=== PATIENT | male | born 1960 | race Caucasian/White ===

== ENCOUNTER 2016-07-20 09:24 | Inpatient (IN) | payer BC ==
[2016-07-20] VITALS (12 sets, daily range): BP systolic 126–187; BP diastolic 85–106
[~2016-07-20] VITALS: Ht 170.2 cm; Wt 81.6 kg
--- NOTE | 2016-07-20 09:30 | PHYS DOC ---
Adult General HPI HPI Patient is a 56 year old male who presents with chest pain. He woke up this morning in normal health and then while at rest developed a 9 at 10 substernal chest pressure that did not radiate he did become nauseated and short of breath and became sweaty. He called 911 who arrived did an EKG gave him nitroglycerin and 324 mg of aspirin and brought him in as a code STEMI. Patient states his pain improved from a 9 to a 4 nitroglycerin. He does have a history of A. fib minutes never had any kind of cardiac workup and does take Pradoxa daily. He has not taken his a.m. dose. Does have a history of tobacco abuse and is smoked for many years and has a family history of coronary disease. Review of Systems Review of Systems Constitutional: Denies fever or chills [] Eyes: Denies change in visual acuity, redness, or eye pain [] HENT: Denies nasal congestion or sore throat [] Respiratory: Denies cough or shortness of breath [] Cardiovascular: No additional information not addressed in HPI [] GI: Denies abdominal pain, nausea, vomiting, bloody stools or diarrhea [] : Denies dysuria or hematuria [] Musculoskeletal: Denies back pain or joint pain [] Integument: Denies rash or skin lesions [] Neurologic: Denies headache, focal weakness or sensory changes [] Endocrine: Denies polyuria or polydipsia [] Current Medications Current Medications Current Medications Medications (Trade) Dose Ordered Sig/Treva Start Time Stop Time Status Last Admin Dose Admin Morphine Sulfate 2 mg PRN Q15MIN PRN 07/20/16 09:45 07/21/16 09:44 Nitroglycerin 0.4 mg 0.4 mg PRN Q5MIN PRN 07/20/16 09:45 07/21/16 09:44 Nitroglycerin/ Dextrose (Nitroglycerin Drip) 250 ml @ 3 mls/hr 1X ONCE 07/20/16 10:30 07/23/16 21:49 Allergies Allergies Allergies Coded Allergies Type Severity Reaction Last Updated Verified No Known Drug Allergies 07/20/16 No Physical Exam Physical Exam Constitutional: Well developed, well nourished, no acute distress, non-toxic appearance. [] HENT: Normocephalic, atraumatic, bilateral external ears normal, oropharynx moist, no oral exudates, nose normal. [] Eyes: PERRLA, EOMI, conjunctiva normal, no discharge. [] Neck: Normal range of motion, no tenderness, supple, no stridor. [] Cardiovascular:Heart rate regular rhythm, no murmur [] Lungs & Thorax: Bilateral breath sounds clear to auscultation [] Abdomen: Bowel sounds normal, soft, no tenderness, no masses, no pulsatile masses. [] Skin: Warm, dry, no erythema, no rash. [] Back: No tenderness, no CVA tenderness. [] Extremities: No tenderness, no cyanosis, no clubbing, ROM intact, no edema. [] Neurologic: Alert and oriented X 3, normal motor function, normal sensory function, no focal deficits noted. [] Psychologic: Affect normal, judgement normal, mood normal. [] Current Patient Data Lab Values Laboratory Tests Test 07/20/16 09:29 White Blood Count 6.0x10^3/uL (4.0-11.0) Red Blood Count 5.56x10^6/uL (4.30-5.70) Hemoglobin 17.8g/dL (13.0-17.5) H Hematocrit 52.5% (39.0-53.0) Mean Corpuscular Volume 94fL (79-100) Mean Corpuscular Hemoglobin 32pg (25-35) Mean Corpuscular Hemoglobin Concent 34g/dL (31-37) Red Cell Distribution Width 13.7% (11.5-14.5) Platelet Count 170x10^3/uL (140-400) Neutrophils (%) (Auto) 55% (31-73) Lymphocytes (%) (Auto) 34% (24-48) Monocytes (%) (Auto) 6% (0-9) Eosinophils (%) (Auto) 5% (0-3) H Basophils (%) (Auto) 1% (0-3) Neutrophils # (Auto) 3.3x10^3uL (1.8-7.7) Lymphocytes # (Auto) 2.0x10^3/uL (1.0-4.8) Monocytes # (Auto) 0.4x10^3/uL (0.0-1.1) Eosinophils # (Auto) 0.3x10^3/uL (0.0-0.7) Basophils # (Auto) 0.0x10^3/uL (0.0-0.2) Prothrombin Time 13.5SEC (11.7-14.0) Prothrombin Time INR 1.1 (0.8-1.1) Sodium Level 140mmol/L (136-145) Potassium Level 4.5mmol/L (3.5-5.1) Chloride Level 104mmol/L (98-107) Carbon Dioxide Level 27mmol/L (21-32) Anion Gap 9 (6-14) Blood Urea Nitrogen 14mg/dL (8-26) Creatinine 1.1mg/dL (0.7-1.3) Estimated GFR (Cockcroft-Gault) 69.0 Glucose Level 150mg/dL (70-99) H Calcium Level 9.6mg/dL (8.5-10.1) Magnesium Level 2.2mg/dL (1.8-2.4) Total Bilirubin 0.9mg/dL (0.2-1.0) Direct Bilirubin 0.1mg/dL (0.0-0.2) Aspartate Amino Transferase (AST) 13U/L (15-37) L Alanine Aminotransferase (ALT) 22U/L (16-63) Alkaline Phosphatase 59U/L (46-116) Creatine Kinase 77U/L (39-308) Creatine Kinase MB (Mass) 0.6ng/mL (0.0-3.6) Creatine Kinase MB Relative Index 0.8% (0-4) Troponin I Quantitative < 0.017ng/mL (0.000-0.055) CE-Xfj-R-Type Natriuretic Peptide 640pg/mL (0-124) H Total Protein 7.8g/dL (6.4-8.2) Albumin 4.3g/dL (3.4-5.0) Lipase 166U/L (73-393) Thyroid Stimulating Hormone (TSH) 1.328uIU/mL (0.358-3.74) Laboratory Tests 07/20/16 09:29 Laboratory Tests 07/20/16 09:29 EKG EKG EKG shows irregular rhythm with a rate approximately 87 bpm , ST elevations noted in V1, V2, V3, V4, some mild depression in lead 1, no other reciprocal changes or T-wave inversions appreciated, QTC 507 ms, no old EKGs for comparison noted, As interpreted by me. Radiology/Procedures Radiology/Procedures [facility] [address] [place] [address] IMAGING REPORT Signed PATIENT: CHARLY NAJERA ACCOUNT: [id number] : 1960 LOCATION: ER AGE: 56 SEX: M EXAM STATUS: REG ER ORD. PHYSICIAN: KARINA TIJERINA MD REASON: chest pain PROCEDURE: PORTABLE CHEST 1V PROCEDURE AP chest radiograph. HISTORY New onset of chest pain this morning. COMPARISON None. FINDINGS Cardiac silhouette appears within normal limits for size. No focal infiltrate, pleural effusion, or pneumothorax is seen. IMPRESSION No acute cardiopulmonary process. Electronically signed by: Gonsalo Atkins MD (Jul 20, 2016 10:06:04) DICTATED and SIGNED BY: GONSALO ATKINS MD DATE: 07/20/16 1005 CC: KARINA TIJERINA MD; LYN BOURGEOIS Jr, MD ~ Impressions: Chest pain Tobacco abuse Course & Med Decision Making Course & Med Decision Making Pertinent Labs and Imaging studies reviewed. (See chart for details) Patient was activated as a code STEMI and seen by cardiology after was paged out. Dr. Jiang wanted to obtain an echocardiogram and labs before deciding to take the patient to the [facility]. Patient blood pressures in the 180s systolic and he is being started on a nitroglycerin drip to control his blood pressure and his symptoms at this time. Also start a heparin drip. He is going to be admitted to the hospitalist and is in stable condition at this time and agreeable to the plan. Dragon Disclaimer Dragon Disclaimer This electronic medical record was generated, in whole or in part, using a voice recognition dictation system. Departure Departure Impression: Primary Impression: Chest pain Disposition: ADMITTED INPATIENT Admitting Physician: Rajwinder Louis Condition: STABLE Problem Qualifiers Primary Impression: Chest pain Chest pain type: unspecified Qualified Code: R07.9 - Chest pain, unspecified KARINA TIJERINA MD Jul 20, 2016 09:30
[2016-07-20] MEDS ORDERED: NITROGLYCERIN SUBLINGUAL 0.4 MG BOTTLE OF 25. SL PRN ×2 (09:45→14:45)
[2016-07-20] MEDS ORDERED: MORPHINE SULFATE 2 MG/ML DISP.SYRIN. IV/SQ PRN (09:45)
--- NOTE | 2016-07-20 10:07 | RAD ---
PROCEDURE AP chest radiograph. HISTORY New onset of chest pain this morning. COMPARISON None. FINDINGS Cardiac silhouette appears within normal limits for size. No focal infiltrate, pleural effusion, or pneumothorax is seen. IMPRESSION No acute cardiopulmonary process. Electronically signed by: Gonsalo Baez MD (Jul 20, 2016 10:06:04)
[2016-07-20 10:10] LABS: ALBUMIN 4.3 g/dL (3.4-5.0); CALCIUM 9.6 mg/dL (8.5-10.1); CREATININE 1.1 mg/dL (0.7-1.3); POTASSIUM 4.5 mmol/L (3.5-5.1); TOTAL BILIRUBIN 0.9 mg/dL (0.2-1.0); TOTAL PROTEIN 7.8 g/dL (6.4-8.2)
[2016-07-20 10:11] LABS: DIRECT BILIRUBIN 0.1 mg/dL (0.0-0.2); MAGNESIUM 2.2 mg/dL (1.8-2.4)
[2016-07-20 10:25] LABS: CKMB MASS 0.6 ng/mL (0.0-3.6)
[2016-07-20] MEDS ORDERED: NITROGLYCERIN PREMIX 250 ML IV ONE (10:30)
[2016-07-20 10:40] LABS: BASO % 1 % (0-3); EOS % 5 % (0-3); HEMATOCRIT 52.5 % (39.0-53.0); HEMOGLOBIN 17.8 g/dL (13.0-17.5); LYMPH % 34 % (24-48); MEAN CORPUSCULAR HEMOGLOBIN 32 pg (25-35); MEAN CORPUSCULAR HGB CONC 34 g/dL (31-37); MEAN CORPUSCULAR VOLUME 94 fL (79-100); MONO % 6 % (0-9); NEUT % 55 % (31-73); PLATELET COUNT 170 x10^3/uL (140-400); RED BLOOD COUNT 5.56 x10^6/uL (4.30-5.70); RED CELL DISTRIBUTION WIDTH 13.7 % (11.5-14.5)
[2016-07-20 11:00] LABS: INR 1.1 (0.8-1.1); PROTHROMBIN TIME PATIENT 13.5 SEC (11.7-14.0)
[2016-07-20 12:20] LABS: BILIRUBIN,URINE NEGATIVE (NEG); GLUCOSE,URINE NEGATIVE (NEG); NITRITE,URINE NEGATIVE (NEG); PROTEIN,URINE 30 mg/dL (NEG-TRACE); UROBILINOGEN,URINE 0.2 mg/dL (0.2 mg/dL)
[2016-07-20] MEDS ORDERED: MORPHINE SULFATE 2 MG/ML DISP.SYRIN. IV PRN (12:30)
[2016-07-20] MEDS ORDERED: ONDANSETRON PF 4 MG/2 ML VIAL. IV PRN ×2 (12:30→13:35)
[2016-07-20 12:35] LABS: BARBITURATES NEG (NEG); BENZODIAZEPINES NEG (NEG); CANNABINOIDS POS (NEG); COCAINE NEG (NEG); METHADONE NEG (NEG); OPIATES NEG (NEG); PHENCYCLIDINE NEG (NEG)
[2016-07-20 12:37] LABS: WBC,URINE OCC /HPF (0-4)
[2016-07-20 12:38] LABS: BACTERIA,URINE 0 /HPF (0-FEW); SQUAMOUS EPITHELIAL CELL,UR MOD /LPF
[2016-07-20] MEDS ORDERED: IOHEXOL 300 MG/ML 100ML VIAL. ONE (12:40)
[2016-07-20] MEDS ORDERED: LIDOCAINE 2% 20 ML VIAL. ONE (12:41)
[2016-07-20] MEDS ORDERED: HEPARIN 25,000UTS/500ML PREMIX 500 ML IV PRN ×2 (13:00→19:45)
[2016-07-20] MEDS: ASPIRIN ENTERIC COATED 325 MG TABLET.DR. PO SCH (13:00)
[2016-07-20] MEDS ORDERED: METOPROLOL TARTRATE 5 MG/5 ML VIAL. IVP SCH (13:00)
--- NOTE | 2016-07-20 13:20 | ACF ---
Admission Forms Criteria CARDIOLOGY GRG Clinical Indications for Admission to Inpatient Care ( Place 'X' for any and all applicable criteria): Hospital admission is needed for appropriate care of the patient because of ANY ONE of the following (1): [ ] I. Hemodynamic instability as indicated by ALL of the following (1)(2)(3) (4)(5) [ ]a) Vital signs or other findings not as expected for chronic patient condition or baseline [ ]b) Instability indicated by ANY ONE of the following: [ ]i) Hypotension [ ]ii) Symptomatic Tachycardia unresponsive to treatment ( e.g., analgesia, fluids, sedation as indicated) [ ]iii) Inadequate perfusion indicated by ANY ONE of the following: [ ] 1) Lactic acidosis (> 2 mmol/L) [ ] 2) New abnormal capillary refill (> 3 seconds) [ ] 3) Reduced urine output [ ] 4) New altered mental status [ ]iv) Orthostatic vital sign changes unresponsive to treatment (e.g., fluids) [ ]v) IV inotropic or vasopressor medication required to maintain adequate blood pressure or perfusion [ ] II. Severe heart failure as indicated by ANY ONE of the following(17)(18) [ ]a) Respiratory distress [ ]b) Hypotension [ ]c) Anasarca (refractory to outpatient therapy) [ ]d) Cardiac arrhythmias of immediate concern [ ]e) Myocardial ischemia [ ] III. Cardiac arrhythmias or findings of immediate concern indicated by ANY ONE of the following (19)(20): [ ] a) Heart rhythms that are inherently dangerous or unstable indicated by ANY ONE of the following (21)(22)(23): [ ] i) Resuscitated ventricular fibrillation or cardiac arrest [ ] ii) Ventricular escape rhythm [ ] iii) Sustained ventricular tachycardia (30 seconds or more of ventricular rhythm at greater than 100 beats per minute) [ ] iv) Nonsustained ventricular tachycardia and ANY ONE of the following: [ ] 1) Suspected cardiac ischemia as cause or consequence of ventricular tachycardia [ ] 2) In setting of acute myocarditis [ ] b) Unstable cardiac conduction defects indicated by ANY ONE of the following(23)(24)(25) [ ] i) Type II second-degree atrioventricular block [ ]ii) Third-degree atrioventricular block [ ]iii) New-onset left bundle branch block with suspected myocardial ischemia [ ]c) Any heart rhythm and ANY ONE of the following (21)(22)(26)(27) (28) [ ] i) Continuous long-term ECG monitoring needed (e.g., initiation of drug requiring monitoring for more than 24 hours) [ ] ii) Patient has automatic implanted cardioverter defibrillator that is repeatedly firing, malfunctioning, or in need of immediate adjustment of settings beyond the scope of ambulatory or observation care [ ]d) Heart rhythms of concern due to ANY ONE of the following: [ ] i) Hypotension [ ] ii) Respiratory distress [ ] iii) Association with other significant symptoms (e.g., bradycardia with syncope or ongoing dizziness, supraventricular tachycardia with chest pain (14)(15)(17) [ ] IV. Monitoring for cardiac contusion beyond the scope of observation care needed [A](30)(31)(32) [ ] V. Surgical or device complication (e.g., valve replacement complication , pacemaker dysfunction) (35)(41)(44)(45)(46) [ ] . Inpatient palliative care needed. [B](49) Also use Inpatient Palliative Care Criteria [ ] VII. Nonbacterial thrombotic (marantic) endocarditis (36)(43)(47)(48) [X] VIII. Cardiology condition, symptom, or finding for which emergency and observation care has failed or are not considered appropriate. [ ] IX. Acute valvular disease requiring inpatient as indicated by ANY ONE of the following (41) [ ]a) Acute valvular regurgitation (42) [ ]b) Noninfectious valvulitis (43) [ ]c) Obstructive valve thrombosis [ ]d) Paravalvular leak [ ]e) Other significant valvular disorder remaining after emergency or observation level of care (as appropriate) [ ]X. Pericardial disease requiring inpatient treatment as indicated by ANY ONE of the following (33)(34)(35)(36)(37) [ ]a) Suspected tamponade (38)(39)(40) [ ]b) Hemopericardium [ ]c) Other significant pericardial disorder remaining after emergency or observation level of care (as appropriate) [ ] XI. Cardiac ischemia beyond scope of emergency and observation care. [ ] XII. Hypertension requiring inpatient treatment as indicated by ANY ONE of the following (6)(7)(8) [ ]a) SBP greater than 220 mm Hg or DBP greater than 120 mmHg despite treatment [ ]b) SBP greater than 140 mm Hg or DBP greater than 100 mm Hg with evidence of acute end organ damage as indicated by ANY ONE of the following [ ] i) Encephalopathy [ ] ii) Acute renal failure as indicated by new onset of ANY ONE of the following (9)(10)(11)(12)(13) [ ]1) 3-fold rise in serum creatinine from baseline [ ]2) Serum creatinine greater than 4 mg/dL ( 354 micromoles/L) with acute rise greater than 0.5 mg/dL (44.2 micromoles/L) [ ]3) Reduction of more than 75% in estimated glomerular filtration rate from baseline [ ]4) Estimated glomerular filtration rate less than 35 mL/min/1.73m2 (0.59 mL/sec/1.73m2) in child up to 18 years of age [ ]5) Cessation of urine output indicated by ALL of the following [ ]A. Adequate volume status [ ]B. Inadequate urine output as indicated by ANY ONE of the following [ ]a. Urine output less than 0.3 mL/kg/hr for 24 hours [ ]b. Anuria (urine output less than 0.1 mL/kg/hr) for 12 hours [ ] iii) Aortic dissection [ ] iv) Myocardial Ischemia [ ] v) Left ventricular heart failure [ ]vi) Retinal Hemorrhage [ ]vii) Other significant finding [ ]c) Hypertension in child requiring inpatient treatment as indicated by ALL of the following(14)(15)(16) [ ] i) Outpatient treatment not effective, not available, or not appropriate [ ]ii) SBP or DBP greater than 95th percentile for age [ ]iii) Evidence of acute end organ damage as indicated by ANY ONE of the following [ ]1) Altered mental status [ ]2) Acute renal failure as indicated by new onset of ANY ONE of the following(9)(10)(11)(12)(13) [ ]A. 3-fold rise in serum creatinine from baseline [ ]B. Serum creatinine greater than 4 mg/dL (354 micromoles/L) with acute rise greater than 0.5 mg/dL (44.2 micromoles/L) [ ]C. Reduction of more than 75% in estimated glomerular filtration rate from baseline [ ]D. Estimated glomerular filtration rate less than 35 mL/min/1.73m2 (0.59 mL/sec/1.73m2) in child up to 18 years of age [ ]E. Cessation of urine output indicated by ALL of the following [ ]a. Adequate volume status [ ]b. Inadequate urine output as indicated by ANY ONE of the following [ ]i) Urine output less than 0.3 mL/kg/hr for 24 hours [ ]ii) Anuria ( urine output less than 0.1 mL/kg/hr) for 12 hours [ ]3) Severe headache [ ]4) Visual disturbance [ ]5) Retinal hemorrhage [ ]6) Other significant finding [ ]XIII. Complications of transplanted heart indicated by ANY ONE of the following(61): [ ]a) Acute graft rejection requiring inpatient management (eg, intravenous immunosuppression)(62)(63) [ ]b) Acute graft heart failure indicated by ANY ONE of the following(64): [ ]i) Hemodynamic instability [ ]ii) Cardiac arrhythmias of immediate concern [ ]iii) Pulmonary edema that is very severe (eg, mechanical ventilation needed, imminent or likely, need for 100% oxygen to keep oxygen saturation above 90%) [ ]iv) Pulmonary edema that is persistent as indicated by ALL of the following: [ ]1) New need for oxygen therapy to keep oxygen saturation above 90% (or increased FiO2 need from baseline) [ ]2) Has not improved sufficiently with emergency department or observation care IV diuretics or other heart failure treatments[E] [ ]v) Altered mental status that is severe or persistent [ ]vi) Increased creatinine (new on laboratory test) with reduction of more than 50% in estimated glomerular filtration rate from baseline [ ]vii) Progressively (ongoing) rising creatinine (known from past laboratory test) with reduction of more than 25% in estimated glomerular filtration rate from baseline [ ]viii) Acute renal failure [ ]ix) Acute peripheral ischemia (eg, examination shows pulseless, cool, mottled, or cyanotic extremity) [ ]x) Pulmonary artery catheter monitoring needed [ ]xi) Other sign or symptom of heart failure requiring inpatient treatment (ie, too severe or not responsive to outpatient and observation care treatment) [ ]c) Infection requiring inpatient management (eg, Hemodynamic instability, need for intravenous antimicrobial treatment)(66)(67)(68)(69)(70) [ ]d) Cardiac allograft vasculopathy requiring inpatient management ( eg evidence of cardiac ischemia)(71) [ ]e) Other complication of transplanted heart (eg, stroke, severe pulmonary hypertension, severe valvular dysfunction) requiring inpatient management(72) The original [facility] content created by [facility] has been revised. The portions of the content which have been revised are identified through the use of italic text or in bold, and [facility] has neither reviewed nor approved the modified material. All other unmodified content is copyright [facility]. Please see references footnoted in the original [facility] edition 2016 Admission Criteria Met?: Yes ALEKSANDRA GRIJALVA Jul 20, 2016 13:19
--- NOTE | 2016-07-20 13:35 | PDOC ---
Provider Note Provider Note H and P dictated. jOb # [id number] CAth later CP, ACS highly likely HTN Chronic A fib on pardaxa HTN emergency POA, better after NTG gtt CVC admit Dw family and ER CHRISTIAN ANDREA MD Jul 20, 2016 13:35
[2016-07-20] MEDS ORDERED: fentaNYL PF VIAL 100 MCG/2 ML VIAL ONE (13:42)
[2016-07-20] MEDS ORDERED: MIDAZOLAM HCL/PF 2 MG/2 ML VIAL. ONE ×2 (13:42→14:15)
[2016-07-20] MEDS ORDERED: ACETAMINOPHEN 500 MG TABLET PO PRN (13:45)
[2016-07-20] MEDS ORDERED: LIDOCAINE 2% 20 ML VIAL. IJ ONE (14:00)
[2016-07-20] MEDS ORDERED: MIDAZOLAM HCL/PF 2 MG/2 ML VIAL. IV ONE (14:00)
[2016-07-20] MEDS ORDERED: IOHEXOL 300 MG/ML 100ML VIAL. IART ONE (14:00)
[2016-07-20] MEDS ORDERED: IODIXANOL 320 MG/ML 100 ML VIAL. ONE (14:00)
[2016-07-20] MEDS ORDERED: fentaNYL PF VIAL 100 MCG/2 ML VIAL IV ONE (14:00)
[2016-07-20] MEDS ORDERED: IV NORMAL SALINE 1000ML BAG 1,000 ML IV SCH (14:44)
--- NOTE | 2016-07-20 14:44 | PDOC4 ---
Operative Note Operative Note Preliminary cath report LV 138/22, AO: 136/86 Left main. no lesions. LAD. mid subtotal lesion, D1 90%. LCX. prox 60-70% lesion, OM1 75% lesion. RCA. Proximal 80%, mid-distal 80% and distal small vessel disease. LV gram mild anterior hypokinesis and apical akinesis. 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 Surgical review for possible CABG. Discussed with the patient and his family. Full report to follow. NGUYEN BINGHAM MD Jul 20, 2016 14:44
[2016-07-20] MEDS ORDERED: 0.9 % SODIUM CHLORIDE 10 ML DISP.SYRIN. IV PRN (14:45)
[2016-07-20] MEDS ORDERED: LISINOPRIL 5 MG TABLET. PO SCH (15:00)
[2016-07-20] MEDS: DOCUSATE SODIUM 100 MG CAPSULE. PO SCH (15:00)
--- NOTE | 2016-07-20 15:04 | CARD ---
APPROVED REPORT EXAM: Two-dimensional and M-mode echocardiogram with Doppler and color Doppler. Other Information Quality : Good Rhythm : Atrial Fibrillation INDICATION Chest Pain RISK FACTORS Smoking 2D DIMENSIONS RVDd2.4 (2.9-3.5cm)Left Atrium(2D)4.6 (1.6-4.0cm) IVSd0.8 (0.7-1.1cm)Aortic Root(2D)2.6 (2.0-3.7cm) LVDd4.6 (3.9-5.9cm)LVOT Diameter2.2 (1.8-2.4cm) PWd0.7 (0.7-1.1cm)LVDs3.7 (2.5-4.0cm) FS (%) 19.6 %SV38.7 ml LVEF(%)40.3 (>50%) Aortic Valve AoV Peak Kavin.100.8cm/sAoV VTI18.6cm AO Peak GR.4.1mmHgLVOT Peak Kavin.89.9cm/s AO Mean GR.2mmHgAVA (VMAX)3.51cm2 AI P 1/2 [id number] Mitral Valve MV E Peak Gr.4mmHgMV E Mean Gr.1mmHg Pulmonary Valve PV Peak Eqqiajcr82.8cm/s Pulmonary Vein S1 Speldpvw82.2cm/s LEFT VENTRICLE The left ventricle is normal size. There is normal left ventricular wall thickness. The Ejection Frac tion is 45%. There is severe hypokinesis of the mid to distal anteroseptal wall and apical wall. Atri al fibrillation noted, unable to assess left ventricular diastolic function. No left ventricle thromb us noted on this study. RIGHT VENTRICLE The right ventricle is normal size. There is normal right ventricular wall thickness. The right ventr icular systolic function is normal. ATRIA The left atrium is mildly dilated. The right atrium size is normal. The interatrial septum is intact with no evidence for an atrial septal defect or patent foramen ovale as noted on 2-D or Doppler imagi ng. AORTIC VALVE The aortic valve is mildly sclerotic. The aortic valve is trileaflet. Doppler and Color Flow revealed mild aortic regurgitation. There is no significant aortic valvular stenosis. MITRAL VALVE The mitral valve leaflets are thickened. There is no evidence of mitral valve prolapse. There is no m itral valve stenosis. Doppler and Color Flow revealed trace mitral regurgitation. TRICUSPID VALVE The tricuspid valve is normal in structure and function. Doppler and Color Flow revealed no tricuspid valve regurgitation noted. There is no pulmonary hypertension. PULMONIC VALVE The pulmonary valve is normal in structure and function. Doppler and Color Flow revealed no pulmonic valvular regurgitation. There is no pulmonic valvular stenosis. GREAT VESSELS The aortic root is normal in size. The ascending aorta is normal in size. The pulmonary artery is nor mal. The IVC is normal in size and collapses >50% with inspiration. PERICARDIAL EFFUSION There is no evidence of significant pericardial effusion. Critical Notification Critical Value: No <Conclusion> There is severe hypokinesis of the mid to distal anteroseptal wall and apical wall. The Ejection Fraction is 45%. The left atrium is mildly dilated. Mild aortic regurgitation. Trace mitral regurgitation. There is no evidence of significant pericardial effusion.
--- NOTE | 2016-07-20 15:08 | HP ---
ADMIT DATE: 07/20/2016 CHIEF COMPLAINT: Chest pain; broke out in sweats. HISTORY OF PRESENT ILLNESS: The patient is a very pleasant 56-year-old male, on the heavy side history of hypertension and AFib for 5 years now, on Pradaxa, previously followed with Dr. Danish Su of Cardiology. Was about to get ready for work today and then had sudden onset chest pain, left-sided, associated with significant diaphoresis, nausea, but did not vomit. He rated the pain at 10/10 and that was real concerning, had to call EMS 911. EKG done, initially it was called as a STEMI, but was downgraded by Cardiology, does have some reciprocal changes in the lateral leads. Troponin first set is negative, but to keep in mind the troponin lag behind actual myocardial injury. The patient is back for cardiac catheterization. He was hypertensive with blood pressure greater than 200 upon admission, started on Nitro drip and feeling better, no headache, significantly much more calmer and blood pressure is now 140s/70s, heart rate in the 80s. The patient did get relieve after the Nitro and aspirin, chest pain came down to 4/10. Given the significant history, convincing story, cardiac history of the patient and EKG changes, the patient was admitted in for cardiac catheterization, admitted to CVC and cardiac catheterization later. PAST MEDICAL HISTORY: Hypertension, AFib. PAST SURGICAL HISTORY: Nothing significant. SOCIAL HISTORY: Smoker, less than a pack a day. No alcohol. No street drugs. FAMILY HISTORY: Positive history of CAD at age around late 50s or 60s in the family. REVIEW OF SYSTEMS: All 14-point systems reviewed. Denies. Pertinent positives are in the HPI, which are namely chest pain, shortness of breath, diaphoresis, some nausea; otherwise, no abdominal pain, emesis, or change in bowel habits. PHYSICAL EXAMINATION: GENERAL: Awake, alert, oriented x 3, not in acute respiratory distress. VITAL SIGNS: Blood pressure 140/70, heart rate 80, RR 12, O2 sat 99% on 2 liters nasal cannula, on the Nitro drip and heparin drip. HEENT: Unremarkable. LUNGS: Clear to auscultation bilaterally. CARDIOVASCULAR: Normal rate and rhythm. No murmurs, rubs, or gallops. ABDOMEN: Soft, obese, nontender, normoactive bowel sounds. GENITALIA: Appropriate for age. EXTREMITIES: Negative edema. Pulses are full and equal. No pallor or cyanosis of nailbeds. PSYCH NEURO: UR ASSESSMENT AND PLAN: 1. Unstable angina, concerning for acute coronary syndrome. 2. Reciprocal changes on EKG. 3. History of hypertension. Hypertensive emergency present on admission. 4. Atrial fibrillation, rate controlled, on Pradaxa. 5. Obesity. PLAN OF CARE: Agree with heparin drip and Nitro drip. CVC admit. Cardiac catheterization later, stool softeners, KYLEE (morphine, oxygen, nitroglycerin and aspirin) protocol. Discussed the plan of care with the family, all at bedside and ER MD, Dr. Roel Garcia. We will await cardiac catheterization results. Make sure AFib does not go RVR. CHRISTIAN WALSH MD DR: /nts JOB#: [id number] / [id number] MAYELA
--- NOTE | 2016-07-20 15:42 | EKG ---
[facility] [address] [place] [address] Test Date: 2016-07-20 Test Time: 09:26:13 Pat Name: CHARLY NAJERA Department: Room: 261 1 Gender: M Behavioral Health Case Manager: : 1960 Requested By: KARINA TIJERINA Order Number: [id number] [place] MD: Robinson Mattson Measurements Intervals Grace Rate: 173 P: [place]: QRS: 12 QRSD: 76 T: 52 QT: 294 QTc: 507 Interpretive Statements SR ANTERIOR STEMI Electronically Signed On 08-08-2016 10:16:08 CDT by Robinson Mattson
[2016-07-20] MEDS ORDERED: DABI150C PO (16:18)
[2016-07-20] MEDS ORDERED: AMLO5TAB2 PO (16:18)
[2016-07-20] MEDS ORDERED: METO100T11 PO (16:18)
[2016-07-20] MEDS: hydrALAZINE 20 MG/ML VIAL. IVP PRN (17:24)
[2016-07-20] MEDS ORDERED: HEPARIN for IV BOLUS 10,000 UNIT/10 ML VIAL. IV PRN (19:45)
[2016-07-20] MEDS: METOPROLOL TART IMMED RELEASE 50 MG TABLET. PO SCH (20:33)
[2016-07-20] MEDS: HEPARIN for IV BOLUS 10,000 UNIT/10 ML VIAL. IV PRN (20:38)
[2016-07-20] MEDS ORDERED: ATORVASTATIN CALCIUM 20 MG TABLET PO SCH (21:00)
[2016-07-20] MEDS ORDERED: METOPROLOL TART IMMED RELEASE 25 MG TABLET. PO SCH (21:00)
[2016-07-20] MEDS: ALPRAZolam 0.25 MG TABLET PO PRN (22:05)
[2016-07-21 03:29] LABS: BASO # 0.1 x10^3/uL (0.0-0.2); BASO % 1 % (0-3); EOS % 1 % (0-3); HEMATOCRIT 50.4 % (39.0-53.0); HEMOGLOBIN 17.4 g/dL (13.0-17.5); LYMPH # 1.9 x10^3/uL (1.0-4.8); LYMPH % 22 % (24-48); MEAN CORPUSCULAR HEMOGLOBIN 33 pg (25-35); MEAN CORPUSCULAR HGB CONC 35 g/dL (31-37); MEAN CORPUSCULAR VOLUME 94 fL (79-100); MONO % 7 % (0-9); NEUT % 69 % (31-73); PLATELET COUNT 155 x10^3/uL (140-400); RED BLOOD COUNT 5.38 x10^6/uL (4.30-5.70); RED CELL DISTRIBUTION WIDTH 13.7 % (11.5-14.5); WHITE BLOOD COUNT 8.7 x10^3/uL (4.0-11.0)
[2016-07-21 03:30] VITALS: BP 126/72
[2016-07-21 03:43] LABS: CALCIUM 9.4 mg/dL (8.5-10.1); CREATININE 0.9 mg/dL (0.7-1.3); POTASSIUM 4.5 mmol/L (3.5-5.1)
--- NOTE | 2016-07-21 03:43 | CONS ---
DATE OF CONSULTATION: CHIEF COMPLAINT: Chest pain. HISTORY OF PRESENT ILLNESS: This is a 56-year-old male who awakened this morning without symptoms. Approximately at 8:30, after he was dressed and ready to leave the house, he suddenly felt very warm and then very cold. He developed a tightness in the left upper chest without further radiation. This tightness was associated with shortness of breath, nausea and dizziness, but no palpitations. He has had no previous similar symptoms and no previous cardiac evaluation. The patient is seen by Cardiology at [facility] for history of atrial fibrillation, underwent cardioversion approximately 3-[address] Danish Su. His EKG was initially by EMS for a presumed STEMI and was subsequently evaluated by the on-call high school math teacher with the patient being started on nitroglycerin. He has continued to have some mild chest tightness, though no associated symptoms at the time he was seen. Initial troponin was 0.0. No other labs are available for review as the electronic system is unavailable. PAST MEDICAL HISTORY: Includes atrial fibrillation with the aforementioned cardioversion. He denies any other medical history. PAST SURGICAL HISTORY: Includes a tonsillectomy and hernia repair as an . SOCIAL HISTORY: The patient is . Tobacco use is a pack a day for approximately 45 years. Alcohol and illicit drug use is denied. FAMILY MEDICAL HISTORY: Positive for coronary artery disease. REVIEW OF SYSTEMS: A 14-point review is completed with pertinent positives in the HPI. Diagnostic and laboratory studies are unavailable as the electronic medical record is not available. PHYSICAL EXAMINATION: VITAL SIGNS: As indicated on the paper chart in the Emergency Room, GENERAL: Well-developed, well-nourished male without acute distress or pain. CENTRAL NERVOUS SYSTEM: The patient is awake, alert and oriented, without focal neurologic deficit noted, not walked for this examination. HEENT: Normocephalic, atraumatic. Pupils are reactive to light. Tongue is midline. Mucosa is moist. NECK: Supple. No jugular venous distention appreciated. No cervical adenopathy appreciated. PULMONARY: Breath sounds clear to auscultation bilaterally, posteriorly. No use of intercostal muscles appreciated. CARDIOVASCULAR: S1, S2 present. No S3 auscultated. No murmurs auscultated. No carotid bruits auscultated. Telemetry demonstrates sinus rhythm. ABDOMEN: Soft, nontender, nondistended. Bowel sounds present. No masses palpated. EXTREMITIES: Without clubbing, cyanosis or edema. Peripheral pulses are 2+ bilaterally. SKIN: [place], warm and intact. PSYCHIATRIC: Affect is appropriate. ALLERGIES: Please refer to the paper chart. CURRENT MEDICATIONS: Please refer to the paper chart. IMPRESSION: 1. Chest pain with suspected ST-elevation myocardial infarction. 2. Atrial fibrillation, currently in sinus rhythm, chronically anticoagulated. The patient has been started on nitroglycerin drip to alleviate his chest pain. As he has not taken his Pradaxa this morning, he will also be started on a heparin drip with the anticipation that he may undergo cardiac catheterization later today. Echocardiogram for evaluation of wall motion abnormalities and evaluation of his left ventricular function is currently in progress and to be reviewed by the on-call high school math teacher. NGUYEN BINGHAM MD DR: LAURA/pato JOB#: [id number] / [id number]
[2016-07-21 03:52] LABS: CHOLESTEROL/HDL RATIO 5.2
[2016-07-21] MEDS: HEPARIN for IV BOLUS 10,000 UNIT/10 ML VIAL. IV PRN (04:24)
[2016-07-21 07:00] VITALS: BP 113/82
[2016-07-21] MEDS: DOCUSATE SODIUM 100 MG CAPSULE. PO SCH (08:11)
[2016-07-21] MEDS: ASPIRIN ENTERIC COATED 325 MG TABLET.DR. PO SCH (08:11)
[2016-07-21] MEDS: METOPROLOL TART IMMED RELEASE 50 MG TABLET. PO SCH ×2 (08:12→21:25)
--- NOTE | 2016-07-21 10:50 | PDOC2 ---
CONSULT Date of Consult Date of Consult DATE: 07/20/16 TIME: 10:42 Reason for Consult Reason for Consult: chest pain Referring Physician Referring Physician: Dr. Louis Identification/Chief Complaint Chief Complaint chest pain. Source Source: Patient History of Present Illness Reason for Visit: (Of note the patient was originally seen on admission on 07-20-16 in the emergency room. Original workup was dictated due to the system wide computer problems and dictation is pending.). The patient is a 56-year-old male with a history of atrial fibrillation treated with Peridex and hypertension. He developed chest pain approximately 45 minutes ago and has been brought to the emergency room. Initial EKG showed anterior ST elevation but no reciprocal changes. Initial blood pressure is greater than 200 systolic. He has been treated with nitroglycerin and heparin. Initial troponin is normal. The patient' s pain has improved. On recheck approximately 15 minutes later the patient's pain has largely resolved. His blood pressure has improved to systolic of 150. Past Medical History Cardiovascular: AFIB, HTN Family History Family History: Heart Disease Social History No Current Problem List Problem List Problems Medical Problems: (1) Chest pain Status: Acute Current Medications Current Medications Current Medications Nitroglycerin 0.4 mg 0.4 mg PRN Q5MIN PRN SL CP RATING > 1/10; Start 07/20/16 at 09:45; Stop 07/20/16 at 15:05; Status DC Nitroglycerin/ Dextrose (Nitroglycerin Drip) 250 ml @ 3 mls/hr 1X ONCE IV Last administered on 07/20/16t 10:02; Start 07/20/16 at 10:30; Stop 07/23/16 at 21: 49 Morphine Sulfate 2 mg PRN Q15MIN PRN IV/SQ PAIN GREATER THAN 3/10; Start at 09:45; Stop 07/21/16 at 09:44; Status DC Ondansetron HCl (Zofran) 4 mg PRN Q8HRS PRN IV NAUSEA/VOMITING; Start 07/20/16 at 12:30; Stop 07/20/16 at 13:36; Status DC Morphine Sulfate 2 mg 2 mg PRN Q2HR PRN IV PAIN; Start 07/20/16 at 12:30; Stop 07/21/16 at 12:29 Heparin Sodium/ Dextrose 500 ml @ 0 mls/hr CONT PRN IV . Last administered on 10:32; Start 07/20/16 at 13:00 Metoprolol Tartrate (Lopressor) 5 mg Q6HRS IVP ; Start 07/20/16 at 13:00; Stop at 14:53; Status DC Aspirin (Ecotrin) 325 mg DAILYWBKFT PO Last administered on 07/21/16 08:11; Start 07/20/16 at 13:00 Ondansetron HCl (Zofran) 4 mg PRN Q6HRS PRN IV NAUSEA/VOMITING; Start 07/20/16 at 13:35 Acetaminophen (Tylenol) 500 mg PRN Q6HRS PRN PO MILD PAIN / TEMP; Start at 13:45 Docusate Sodium (Colace) 100 mg DAILY PO Last administered on 07/21/16 08:11; Start 07/20/16 at 15:00 Iohexol 100 ml 100 ml STK-MED ONCE .ROUTE ; Start 07/20/16 at 12:40; Stop at 13:44; Status DC Heparin Sodium/ Sodium Chloride 1,000 ml @ As Directed STK-MED ONCE .ROUTE ; Start 07/20/16 at 12:41; Stop 07/20/16 at 13:44; Status DC Lidocaine HCl 20 ml STK-MED ONCE .ROUTE ; Start 07/20/16 at 12:41; Stop 07/20/16 at 13:44; Status DC Fentanyl Citrate (Fentanyl 2ml Vial) 100 mcg STK-MED ONCE .ROUTE ; Start at 13:42; Stop 07/20/16 at 13:45; Status DC Midazolam HCl (Versed) 2 mg STK-MED ONCE .ROUTE ; Start 07/20/16 at 13:42; Stop 07/20/16 at 13:45; Status DC Heparin Sodium/ Sodium Chloride 1,000 unit 1X ONCE IART Last administered on 14:29; Start 07/20/16 at 14:00; Stop 07/20/16 at 14:01; Status DC Heparin Sodium/ Sodium Chloride 1,000 unit 1X ONCE IART Last administered on 14:29; Start 07/20/16 at 14:00; Stop 07/20/16 at 14:01; Status DC Midazolam HCl (Versed) 2 mg 1X ONCE IV Last administered on 07/20/16 14:28; Start 07/20/16 at 14:00; Stop 07/20/16 at 14:01; Status DC Fentanyl Citrate (Fentanyl 2ml Vial) 100 mcg 1X ONCE IV Last administered on 14:28; Start 07/20/16 at 14:00; Stop 07/20/16 at 14:01; Status DC Iohexol (Omnipaque 300 Mg/ml) 100 ml 1X ONCE IART Last administered on 14:29; Start 07/20/16 at 14:00; Stop 07/20/16 at 14:01; Status DC Lidocaine HCl 20 ml 1X ONCE IJ Last administered on 07/20/16 14:29; Start 07/20 at 14:00; Stop 07/20/16 at 14:01; Status DC Midazolam HCl (Versed) 2 mg STK-MED ONCE .ROUTE ; Start 07/20/16 at 14:15; Stop 07/20/16 at 14:16; Status DC Sodium Chloride 3 ml 3 ml QSHIFT PRN IV AFTER MEDS AND BLOOD DRAWS; Start at 14:45 Sodium Chloride (Iv Sodium Chloride 0.9% 1000ml Bag) 1,000 ml @ 60 mls/hr [id number] IV Last administered on 07/20/16 14:44; Start 07/20/16 at 14:44; Stop at 00:43; Status DC Metoprolol Tartrate (Lopressor) 12.5 mg BID PO ; Start 07/20/16 at 21:00; Stop at 21:00; Status DC Lisinopril (Prinivil) 5 mg DAILY PO Last administered on 07/20/16 16:25; Start 07/20/16 at 15:00; Stop 07/20/16 at 17:21; Status DC Atorvastatin Calcium (Lipitor) 20 mg QHS PO Last administered on 07/20/16 20:33 ; Start 07/20/16 at 21:00; Stop 07/21/16 at 08:11; Status DC Nitroglycerin (Nitrostat) 0.4 mg PRN Q5MIN PRN SL CHEST PAIN; Start 07/20/16 at 14:45 Hydralazine HCl (Apresoline) 10 mg PRN Q4HRS PRN IVP ELEVATED BP, SEE COMMENTS Last administered on 07/20/16 17:24; Start 07/20/16 at 17:15 Metoprolol Tartrate (Lopressor) 50 mg BID PO Last administered on 07/21/16 08: 12; Start 07/20/16 at 21:00 Alprazolam (Xanax) 0.25 mg PRN Q8HRS PRN PO ANXIETY / AGITATION Last administered on 07/20/16 22:05; Start 07/20/16 at 17:30 Heparin Sodium (Porcine) 2050 unit 2,050 unit PRN Q6HRS PRN IV FOR UFH LEVEL LESS THAN 0.2 Last administered on 07/21/16 04:24; Start 07/20/16 at 19:45 Heparin Sodium/ Dextrose 500 ml @ 19.4 mls/hr CONT PRN IV SEE I/O RECORD; Start 07/20/16 at 19:45 Heparin Sodium (Porcine) (Heparin Sodium) 2,050 unit PRN Q6HRS PRN IV FOR UFH LEVEL LESS THAN 0.2; Start 07/20/16 at 19:45; Status UNV Atorvastatin Calcium (Lipitor) 40 mg QHS PO ; Start 07/21/16 at 21:00 Iodixanol (Visipaque 320) 200 ml STK-MED ONCE .ROUTE ; Start 07/20/16 at 14:00; Stop 07/21/16 at 08:26; Status DC Active Scripts Active Reported Amlodipine Besylate 5 Mg Tablet 5 Mg PO DAILY Pradaxa (Dabigatran Etexilate Mesylate) 150 Mg Capsule 1 Cap PO BID Metoprolol Succinate ( Xl ) (Metoprolol Succinate) 100 Mg Tab.er.24h 1 Tab PO DAILY Allergies Allergies: Coded Allergies: No Known Drug Allergies (Unverified , 07/20/16) ROS Cardiovascular: yes Chest Pain, yes Palpitations Physical Exam General: mild distress HEENT: Atraumatic Lungs: Clear to auscultation Heart: Other (irregular irregular) Abdomen: Normal bowel sounds Extremities: No clubbing Vitals VITALS Vital Signs Date Time Temp Pulse Resp B/P Pulse Ox O2 Delivery O2 Flow Rate FiO2 07/21/16 08:12 104 113/82 07/21/16 08:00 Room Air 07/21/16 07:00 98.8 18 97 98.8 Labs Labs Laboratory Tests Test 07/20/16 09:29 07/20/16 09:35 07/20/16 12:05 07/20/16 15:15 White Blood Count 6.0x10^3/uL (4.0-11.0) Red Blood Count 5.56x10^6/uL (4.30-5.70) Hemoglobin 17.8g/dL (13.0-17.5) Hematocrit 52.5% (39.0-53.0) Mean Corpuscular Volume 94fL (79-100) Mean Corpuscular Hemoglobin 32pg (25-35) Mean Corpuscular Hemoglobin Concent 34g/dL (31-37) Red Cell Distribution Width 13.7% (11.5-14.5) Platelet Count 170x10^3/uL (140-400) Neutrophils (%) (Auto) 55% (31-73) Lymphocytes (%) (Auto) 34% (24-48) Monocytes (%) (Auto) 6% (0-9) Eosinophils (%) (Auto) 5% (0-3) Basophils (%) (Auto) 1% (0-3) Neutrophils # (Auto) 3.3x10^3uL (1.8-7.7) Lymphocytes # (Auto) 2.0x10^3/uL (1.0-4.8) Monocytes # (Auto) 0.4x10^3/uL (0.0-1.1) Eosinophils # (Auto) 0.3x10^3/uL (0.0-0.7) Basophils # (Auto) 0.0x10^3/uL (0.0-0.2) Prothrombin Time 13.5SEC (11.7-14.0) Prothromb Time International Ratio 1.1 (0.8-1.1) Sodium Level 140mmol/L (136-145) Potassium Level 4.5mmol/L (3.5-5.1) Chloride Level 104mmol/L (98-107) Carbon Dioxide Level 27mmol/L (21-32) Anion Gap 9 (6-14) Blood Urea Nitrogen 14mg/dL (8-26) Creatinine 1.1mg/dL (0.7-1.3) Estimated GFR (Cockcroft-Gault) 69.0 Glucose Level 150mg/dL (70-99) Calcium Level 9.6mg/dL (8.5-10.1) Magnesium Level 2.2mg/dL (1.8-2.4) Total Bilirubin 0.9mg/dL (0.2-1.0) Direct Bilirubin 0.1mg/dL (0.0-0.2) Aspartate Amino Transf (AST/SGOT) 13U/L (15-37) Alanine Aminotransferase (ALT/SGPT) 22U/L (16-63) Alkaline Phosphatase 59U/L (46-116) Creatine Kinase 77U/L (39-308) Creatine Kinase MB (Mass) 0.6ng/mL (0.0-3.6) Creatine Kinase MB Relative Index 0.8% (0-4) Troponin I Quantitative < 0.017ng/mL (0.000-0.055) 83.832ng/mL (0.000-0.055) EE-Xee-M-Type Natriuretic Peptide 640pg/mL (0-124) Total Protein 7.8g/dL (6.4-8.2) Albumin 4.3g/dL (3.4-5.0) Lipase 166U/L (73-393) Thyroid Stimulating Hormone (TSH) 1.328uIU/mL (0.358-3.74) Bedside Troponin I 0.00ng/ml (<0.08) Urine Collection Type Unknown Urine Color Yellow Urine Clarity Clear Urine pH 7.0 Urine Specific [place] 1.015 Urine Protein 30mg/dL (NEG-TRACE) Urine Glucose (UA) Negativemg/dL (NEG) Urine Ketones (Stick) Negativemg/dL (NEG) Urine Blood Small (NEG) Urine Nitrite Negative (NEG) Urine Bilirubin Negative (NEG) Urine Urobilinogen Dipstick 0.2mg/dL (0.2 mg/dL) Urine Leukocyte Esterase Negative (NEG) Urine RBC 1-2/HPF (0-2) Urine WBC Occ/HPF (0-4) Urine Squamous Epithelial Cells Mod/LPF Urine Bacteria 0/HPF (0-FEW) Urine Opiates Screen Neg (NEG) Urine Methadone Screen Neg (NEG) Urine Barbiturates Neg (NEG) Urine Phencyclidine Screen Neg (NEG) Urine Amphetamine/Methamphetamine Neg (NEG) Urine Benzodiazepines Screen Neg (NEG) Urine Cocaine Screen Neg (NEG) Urine Cannabinoids Screen Pos (NEG) Urine Ethyl Alcohol Neg (NEG) Test 07/20/16 18:30 07/21/16 00:45 07/21/16 02:40 07/21/16 09:45 Troponin I Quantitative 96.465ng/mL (0.000-0.055) 71.449ng/mL (0.000-0.055) White Blood Count 8.7x10^3/uL (4.0-11.0) Red Blood Count 5.38x10^6/uL (4.30-5.70) Hemoglobin 17.4g/dL (13.0-17.5) Hematocrit 50.4% (39.0-53.0) Mean Corpuscular Volume 94fL (79-100) Mean Corpuscular Hemoglobin 33pg (25-35) Mean Corpuscular Hemoglobin Concent 35g/dL (31-37) Red Cell Distribution Width 13.7% (11.5-14.5) Platelet Count 155x10^3/uL (140-400) Neutrophils (%) (Auto) 69% (31-73) Lymphocytes (%) (Auto) 22% (24-48) Monocytes (%) (Auto) 7% (0-9) Eosinophils (%) (Auto) 1% (0-3) Basophils (%) (Auto) 1% (0-3) Neutrophils # (Auto) 6.0x10^3uL (1.8-7.7) Lymphocytes # (Auto) 1.9x10^3/uL (1.0-4.8) Monocytes # (Auto) 0.6x10^3/uL (0.0-1.1) Eosinophils # (Auto) 0.1x10^3/uL (0.0-0.7) Basophils # (Auto) 0.1x10^3/uL (0.0-0.2) Heparin Anti-Xa Act, Unfractionated 0.13IU/mL (0.30-0.70) 0.45IU/mL (0.30-0.70) Sodium Level 138mmol/L (136-145) Potassium Level 4.5mmol/L (3.5-5.1) Chloride Level 104mmol/L (98-107) Carbon Dioxide Level 24mmol/L (21-32) Anion Gap 10 (6-14) Blood Urea Nitrogen 12mg/dL (8-26) Creatinine 0.9mg/dL (0.7-1.3) Estimated GFR (Cockcroft-Gault) 87.0 Glucose Level 119mg/dL (70-99) Calcium Level 9.4mg/dL (8.5-10.1) Magnesium Level 2.2mg/dL (1.8-2.4) Triglycerides Level 91mg/dL (0-150) Cholesterol Level 215mg/dL (0-200) LDL Cholesterol, Calculated 156mg/dL (0-100) VLDL Cholesterol, Calculated 18mg/dL (0-40) HDL Cholesterol 41mg/dL (40-60) Cholesterol/HDL Ratio 5.2 Laboratory Tests Test 07/20/16 12:05 07/20/16 15:15 07/20/16 18:30 07/21/16 00:45 Urine Collection Type Unknown Urine Color Yellow Urine Clarity Clear Urine pH 7.0 Urine Specific [place] 1.015 Urine Protein 30mg/dL (NEG-TRACE) Urine Glucose (UA) Negativemg/dL (NEG) Urine Ketones (Stick) Negativemg/dL (NEG) Urine Blood Small (NEG) Urine Nitrite Negative (NEG) Urine Bilirubin Negative (NEG) Urine Urobilinogen Dipstick 0.2mg/dL (0.2 mg/dL) Urine Leukocyte Esterase Negative (NEG) Urine RBC 1-2/HPF (0-2) Urine WBC Occ/HPF (0-4) Urine Squamous Epithelial Cells Mod/LPF Urine Bacteria 0/HPF (0-FEW) Urine Opiates Screen Neg (NEG) Urine Methadone Screen Neg (NEG) Urine Barbiturates Neg (NEG) Urine Phencyclidine Screen Neg (NEG) Urine Amphetamine/Methamphetamine Neg (NEG) Urine Benzodiazepines Screen Neg (NEG) Urine Cocaine Screen Neg (NEG) Urine Cannabinoids Screen Pos (NEG) Urine Ethyl Alcohol Neg (NEG) Troponin I Quantitative 83.832ng/mL (0.000-0.055) 96.465ng/mL (0.000-0.055) 71.449ng/mL (0.000-0.055) Test 07/21/16 02:40 07/21/16 09:45 White Blood Count 8.7x10^3/uL (4.0-11.0) Red Blood Count 5.38x10^6/uL (4.30-5.70) Hemoglobin 17.4g/dL (13.0-17.5) Hematocrit 50.4% (39.0-53.0) Mean Corpuscular Volume 94fL (79-100) Mean Corpuscular Hemoglobin 33pg (25-35) Mean Corpuscular Hemoglobin Concent 35g/dL (31-37) Red Cell Distribution Width 13.7% (11.5-14.5) Platelet Count 155x10^3/uL (140-400) Neutrophils (%) (Auto) 69% (31-73) Lymphocytes (%) (Auto) 22% (24-48) Monocytes (%) (Auto) 7% (0-9) Eosinophils (%) (Auto) 1% (0-3) Basophils (%) (Auto) 1% (0-3) Neutrophils # (Auto) 6.0x10^3uL (1.8-7.7) Lymphocytes # (Auto) 1.9x10^3/uL (1.0-4.8) Monocytes # (Auto) 0.6x10^3/uL (0.0-1.1) Eosinophils # (Auto) 0.1x10^3/uL (0.0-0.7) Basophils # (Auto) 0.1x10^3/uL (0.0-0.2) Heparin Anti-Xa Act, Unfractionated 0.13IU/mL (0.30-0.70) 0.45IU/mL (0.30-0.70) Sodium Level 138mmol/L (136-145) Potassium Level 4.5mmol/L (3.5-5.1) Chloride Level 104mmol/L (98-107) Carbon Dioxide Level 24mmol/L (21-32) Anion Gap 10 (6-14) Blood Urea Nitrogen 12mg/dL (8-26) Creatinine 0.9mg/dL (0.7-1.3) Estimated GFR (Cockcroft-Gault) 87.0 Glucose Level 119mg/dL (70-99) Calcium Level 9.4mg/dL (8.5-10.1) Magnesium Level 2.2mg/dL (1.8-2.4) Triglycerides Level 91mg/dL (0-150) Cholesterol Level 215mg/dL (0-200) LDL Cholesterol, Calculated 156mg/dL (0-100) VLDL Cholesterol, Calculated 18mg/dL (0-40) HDL Cholesterol 41mg/dL (40-60) Cholesterol/HDL Ratio 5.2 Assessment/Plan Assessment/Plan 1. Rapid atrial fibrillation. Patient's rate has improved. He is on Pradexa. We' ll continue to closely monitor on present medicines. 2. Accelerated hypertension. Initial systolic pressure was greater than 200. On IV nitroglycerin and improved to 150. 3. Chest pain with abnormal EKG. Initial EKG showed anterior ST elevation but no reciprocal changes. On treatment above the patient's pain has resolved. Initial troponin is normal. In real time at this time no other labs are available. In this setting heart catheterization was recommended to the patient. Risks and benefits were discussed. He has agreed with cardiac catheterization. Thank you for allowing us to participate the care of your pleasant patient. NGUYEN BINGHAM MD Jul 21, 2016 10:50
[2016-07-21 11:09] VITALS: BP 104/72
--- NOTE | 2016-07-21 11:16 | PDOC ---
CARDIO Progress Notes Date and Time Date of Service 07/21/2016 Time of Evaluation 1117 Subjective Subjective: No Chest Pain, No shortness of breath, No Palpitations, No Dizziness, Other (remains on heparin and NTG gtts) Vitals Vitals Vital Signs Date Time Temp Pulse Resp B/P Pulse Ox O2 Delivery O2 Flow Rate FiO2 07/21/16 11:09 98.0 64 18 104/72 97 Room Air 98.0 Weight Weight [ ] Input and Output Intake and Output Intake and Output 07/21/16 07:00 Intake Total 430 ml Output Total 800 ml Balance -370 ml Intake Oral 220 ml IV Total 210 ml Output Urine Total 800 ml Laboratory Labs Laboratory Tests Test 07/20/16 12:05 07/20/16 15:15 07/20/16 18:30 07/21/16 00:45 Urine Collection Type Unknown Urine Color Yellow Urine Clarity Clear Urine pH 7.0 Urine Specific [place] 1.015 Urine Protein 30mg/dL (NEG-TRACE) Urine Glucose (UA) Negativemg/dL (NEG) Urine Ketones (Stick) Negativemg/dL (NEG) Urine Blood Small (NEG) Urine Nitrite Negative (NEG) Urine Bilirubin Negative (NEG) Urine Urobilinogen Dipstick 0.2mg/dL (0.2 mg/dL) Urine Leukocyte Esterase Negative (NEG) Urine RBC 1-2/HPF (0-2) Urine WBC Occ/HPF (0-4) Urine Squamous Epithelial Cells Mod/LPF Urine Bacteria 0/HPF (0-FEW) Urine Opiates Screen Neg (NEG) Urine Methadone Screen Neg (NEG) Urine Barbiturates Neg (NEG) Urine Phencyclidine Screen Neg (NEG) Urine Amphetamine/Methamphetamine Neg (NEG) Urine Benzodiazepines Screen Neg (NEG) Urine Cocaine Screen Neg (NEG) Urine Cannabinoids Screen Pos (NEG) Urine Ethyl Alcohol Neg (NEG) Troponin I Quantitative 83.832ng/mL (0.000-0.055) 96.465ng/mL (0.000-0.055) 71.449ng/mL (0.000-0.055) Test 07/21/16 02:40 07/21/16 09:45 White Blood Count 8.7x10^3/uL (4.0-11.0) Red Blood Count 5.38x10^6/uL (4.30-5.70) Hemoglobin 17.4g/dL (13.0-17.5) Hematocrit 50.4% (39.0-53.0) Mean Corpuscular Volume 94fL (79-100) Mean Corpuscular Hemoglobin 33pg (25-35) Mean Corpuscular Hemoglobin Concent 35g/dL (31-37) Red Cell Distribution Width 13.7% (11.5-14.5) Platelet Count 155x10^3/uL (140-400) Neutrophils (%) (Auto) 69% (31-73) Lymphocytes (%) (Auto) 22% (24-48) Monocytes (%) (Auto) 7% (0-9) Eosinophils (%) (Auto) 1% (0-3) Basophils (%) (Auto) 1% (0-3) Neutrophils # (Auto) 6.0x10^3uL (1.8-7.7) Lymphocytes # (Auto) 1.9x10^3/uL (1.0-4.8) Monocytes # (Auto) 0.6x10^3/uL (0.0-1.1) Eosinophils # (Auto) 0.1x10^3/uL (0.0-0.7) Basophils # (Auto) 0.1x10^3/uL (0.0-0.2) Heparin Anti-Xa Act, Unfractionated 0.13IU/mL (0.30-0.70) 0.45IU/mL (0.30-0.70) Sodium Level 138mmol/L (136-145) Potassium Level 4.5mmol/L (3.5-5.1) Chloride Level 104mmol/L (98-107) Carbon Dioxide Level 24mmol/L (21-32) Anion Gap 10 (6-14) Blood Urea Nitrogen 12mg/dL (8-26) Creatinine 0.9mg/dL (0.7-1.3) Estimated GFR (Cockcroft-Gault) 87.0 Glucose Level 119mg/dL (70-99) Calcium Level 9.4mg/dL (8.5-10.1) Magnesium Level 2.2mg/dL (1.8-2.4) Triglycerides Level 91mg/dL (0-150) Cholesterol Level 215mg/dL (0-200) LDL Cholesterol, Calculated 156mg/dL (0-100) VLDL Cholesterol, Calculated 18mg/dL (0-40) HDL Cholesterol 41mg/dL (40-60) Cholesterol/HDL Ratio 5.2 Physical Exam HEENT: NO Carotid Bruit, Neck Supple W Full Motion Chest: Symmetric LUNGS: Clear to Auscultation Heart: S1S2, no murmurs, irregularly irregular, other (tele: atrial fib with controlled ventricular rate) Abdomen: Soft N/T Extremities: No Edema, Other (right CRAS arteriotomy C/D/I; no ecchymosis, edema or erythema; site with bruit on auscultation; distal pulses palpable 2+) Neurology: alert, oriented, follow commands Assessment Assessment 1. STEMI troponin peaked @ 96.465 3 vessel disease on cath 07/20/2016 CTS consult pending continue heparin and NTG gtts for now 2. atrial fib OAC with Pradaxa (last dose - 07/19/2016) now on heparin rate controlled with beta-blockers 3. ischemic cardiomyopathy LVEF mildly depressed @ 45% continue BB, holding ACEI in anticipation of CTS no evidence of CHF 4. HTN controlled today with increase BB dose and IV hydralazine off ACEI in anticipation of CTS 5. HLD LDLs = 156 increase to high dose statin therapy NERY DANGELO APRN Jul 21, 2016 11:16
--- NOTE | 2016-07-21 12:10 | PDOC ---
PROGRESS NOTES Chief Complaint Chief Complaint 1. 3 vessel dse by cardiac cath (07/20/16) 2. UA on presentation 3. History of hypertension. Hypertensive emergency present on admission. 4. Atrial fibrillation, rate controlled, on Pradaxa. 5. Obesity. History of Present Illness History of Present Illness CAth results noted TCVS consulted Pt denies CP - on nitro gtt and heparin gtt NO headache HAd some anxiety attack last night - better with xanax' Trop epaked to 88 pre cath and 99 post cardiac cath PLAN: Await TCVS COnt haprin and nitro gtts Tylenol for headaches xanax prn at night Dw , pt and cards Vitals Vitals Vital Signs Date Time Temp Pulse Resp B/P Pulse Ox O2 Delivery O2 Flow Rate FiO2 07/21/16 11:09 98.0 64 18 104/72 97 Room Air 98.0 Physical Exam General: mild distress Heart: Other (irregular irregular) Abdomen: Normal bowel sounds Extremities: No clubbing Labs LABS Laboratory Tests Test 07/20/16 15:15 07/20/16 18:30 07/21/16 00:45 07/21/16 02:40 Troponin I Quantitative 83.832ng/mL (0.000-0.055) 96.465ng/mL (0.000-0.055) 71.449ng/mL (0.000-0.055) White Blood Count 8.7x10^3/uL (4.0-11.0) Red Blood Count 5.38x10^6/uL (4.30-5.70) Hemoglobin 17.4g/dL (13.0-17.5) Hematocrit 50.4% (39.0-53.0) Mean Corpuscular Volume 94fL (79-100) Mean Corpuscular Hemoglobin 33pg (25-35) Mean Corpuscular Hemoglobin Concent 35g/dL (31-37) Red Cell Distribution Width 13.7% (11.5-14.5) Platelet Count 155x10^3/uL (140-400) Neutrophils (%) (Auto) 69% (31-73) Lymphocytes (%) (Auto) 22% (24-48) Monocytes (%) (Auto) 7% (0-9) Eosinophils (%) (Auto) 1% (0-3) Basophils (%) (Auto) 1% (0-3) Neutrophils # (Auto) 6.0x10^3uL (1.8-7.7) Lymphocytes # (Auto) 1.9x10^3/uL (1.0-4.8) Monocytes # (Auto) 0.6x10^3/uL (0.0-1.1) Eosinophils # (Auto) 0.1x10^3/uL (0.0-0.7) Basophils # (Auto) 0.1x10^3/uL (0.0-0.2) Heparin Anti-Xa Act, Unfractionated 0.13IU/mL (0.30-0.70) Sodium Level 138mmol/L (136-145) Potassium Level 4.5mmol/L (3.5-5.1) Chloride Level 104mmol/L (98-107) Carbon Dioxide Level 24mmol/L (21-32) Anion Gap 10 (6-14) Blood Urea Nitrogen 12mg/dL (8-26) Creatinine 0.9mg/dL (0.7-1.3) Estimated GFR (Cockcroft-Gault) 87.0 Glucose Level 119mg/dL (70-99) Calcium Level 9.4mg/dL (8.5-10.1) Magnesium Level 2.2mg/dL (1.8-2.4) Triglycerides Level 91mg/dL (0-150) Cholesterol Level 215mg/dL (0-200) LDL Cholesterol, Calculated 156mg/dL (0-100) VLDL Cholesterol, Calculated 18mg/dL (0-40) HDL Cholesterol 41mg/dL (40-60) Cholesterol/HDL Ratio 5.2 Test 07/21/16 09:45 Heparin Anti-Xa Act, Unfractionated 0.45IU/mL (0.30-0.70) Review of Systems Review of Systems some anxiety, no CP, SOA or abd pain Assessment and Plan Assessmemt and Plan Problems Medical Problems: (1) Chest pain Status: Acute Problems: Comment Review of Relevant I have reviewed the following items leonidas (where applicable) has been applied. Labs Laboratory Tests Test 07/20/16 09:29 07/20/16 09:35 07/20/16 12:05 07/20/16 15:15 White Blood Count 6.0x10^3/uL (4.0-11.0) Red Blood Count 5.56x10^6/uL (4.30-5.70) Hemoglobin 17.8g/dL (13.0-17.5) Hematocrit 52.5% (39.0-53.0) Mean Corpuscular Volume 94fL (79-100) Mean Corpuscular Hemoglobin 32pg (25-35) Mean Corpuscular Hemoglobin Concent 34g/dL (31-37) Red Cell Distribution Width 13.7% (11.5-14.5) Platelet Count 170x10^3/uL (140-400) Neutrophils (%) (Auto) 55% (31-73) Lymphocytes (%) (Auto) 34% (24-48) Monocytes (%) (Auto) 6% (0-9) Eosinophils (%) (Auto) 5% (0-3) Basophils (%) (Auto) 1% (0-3) Neutrophils # (Auto) 3.3x10^3uL (1.8-7.7) Lymphocytes # (Auto) 2.0x10^3/uL (1.0-4.8) Monocytes # (Auto) 0.4x10^3/uL (0.0-1.1) Eosinophils # (Auto) 0.3x10^3/uL (0.0-0.7) Basophils # (Auto) 0.0x10^3/uL (0.0-0.2) Prothrombin Time 13.5SEC (11.7-14.0) Prothromb Time International Ratio 1.1 (0.8-1.1) Sodium Level 140mmol/L (136-145) Potassium Level 4.5mmol/L (3.5-5.1) Chloride Level 104mmol/L (98-107) Carbon Dioxide Level 27mmol/L (21-32) Anion Gap 9 (6-14) Blood Urea Nitrogen 14mg/dL (8-26) Creatinine 1.1mg/dL (0.7-1.3) Estimated GFR (Cockcroft-Gault) 69.0 Glucose Level 150mg/dL (70-99) Calcium Level 9.6mg/dL (8.5-10.1) Magnesium Level 2.2mg/dL (1.8-2.4) Total Bilirubin 0.9mg/dL (0.2-1.0) Direct Bilirubin 0.1mg/dL (0.0-0.2) Aspartate Amino Transf (AST/SGOT) 13U/L (15-37) Alanine Aminotransferase (ALT/SGPT) 22U/L (16-63) Alkaline Phosphatase 59U/L (46-116) Creatine Kinase 77U/L (39-308) Creatine Kinase MB (Mass) 0.6ng/mL (0.0-3.6) Creatine Kinase MB Relative Index 0.8% (0-4) Troponin I Quantitative < 0.017ng/mL (0.000-0.055) 83.832ng/mL (0.000-0.055) GM-Qxn-D-Type Natriuretic Peptide 640pg/mL (0-124) Total Protein 7.8g/dL (6.4-8.2) Albumin 4.3g/dL (3.4-5.0) Lipase 166U/L (73-393) Thyroid Stimulating Hormone (TSH) 1.328uIU/mL (0.358-3.74) Bedside Troponin I 0.00ng/ml (<0.08) Urine Collection Type Unknown Urine Color Yellow Urine Clarity Clear Urine pH 7.0 Urine Specific [place] 1.015 Urine Protein 30mg/dL (NEG-TRACE) Urine Glucose (UA) Negativemg/dL (NEG) Urine Ketones (Stick) Negativemg/dL (NEG) Urine Blood Small (NEG) Urine Nitrite Negative (NEG) Urine Bilirubin Negative (NEG) Urine Urobilinogen Dipstick 0.2mg/dL (0.2 mg/dL) Urine Leukocyte Esterase Negative (NEG) Urine RBC 1-2/HPF (0-2) Urine WBC Occ/HPF (0-4) Urine Squamous Epithelial Cells Mod/LPF Urine Bacteria 0/HPF (0-FEW) Urine Opiates Screen Neg (NEG) Urine Methadone Screen Neg (NEG) Urine Barbiturates Neg (NEG) Urine Phencyclidine Screen Neg (NEG) Urine Amphetamine/Methamphetamine Neg (NEG) Urine Benzodiazepines Screen Neg (NEG) Urine Cocaine Screen Neg (NEG) Urine Cannabinoids Screen Pos (NEG) Urine Ethyl Alcohol Neg (NEG) Test 07/20/16 18:30 07/21/16 00:45 07/21/16 02:40 07/21/16 09:45 Troponin I Quantitative 96.465ng/mL (0.000-0.055) 71.449ng/mL (0.000-0.055) White Blood Count 8.7x10^3/uL (4.0-11.0) Red Blood Count 5.38x10^6/uL (4.30-5.70) Hemoglobin 17.4g/dL (13.0-17.5) Hematocrit 50.4% (39.0-53.0) Mean Corpuscular Volume 94fL (79-100) Mean Corpuscular Hemoglobin 33pg (25-35) Mean Corpuscular Hemoglobin Concent 35g/dL (31-37) Red Cell Distribution Width 13.7% (11.5-14.5) Platelet Count 155x10^3/uL (140-400) Neutrophils (%) (Auto) 69% (31-73) Lymphocytes (%) (Auto) 22% (24-48) Monocytes (%) (Auto) 7% (0-9) Eosinophils (%) (Auto) 1% (0-3) Basophils (%) (Auto) 1% (0-3) Neutrophils # (Auto) 6.0x10^3uL (1.8-7.7) Lymphocytes # (Auto) 1.9x10^3/uL (1.0-4.8) Monocytes # (Auto) 0.6x10^3/uL (0.0-1.1) Eosinophils # (Auto) 0.1x10^3/uL (0.0-0.7) Basophils # (Auto) 0.1x10^3/uL (0.0-0.2) Heparin Anti-Xa Act, Unfractionated 0.13IU/mL (0.30-0.70) 0.45IU/mL (0.30-0.70) Sodium Level 138mmol/L (136-145) Potassium Level 4.5mmol/L (3.5-5.1) Chloride Level 104mmol/L (98-107) Carbon Dioxide Level 24mmol/L (21-32) Anion Gap 10 (6-14) Blood Urea Nitrogen 12mg/dL (8-26) Creatinine 0.9mg/dL (0.7-1.3) Estimated GFR (Cockcroft-Gault) 87.0 Glucose Level 119mg/dL (70-99) Calcium Level 9.4mg/dL (8.5-10.1) Magnesium Level 2.2mg/dL (1.8-2.4) Triglycerides Level 91mg/dL (0-150) Cholesterol Level 215mg/dL (0-200) LDL Cholesterol, Calculated 156mg/dL (0-100) VLDL Cholesterol, Calculated 18mg/dL (0-40) HDL Cholesterol 41mg/dL (40-60) Cholesterol/HDL Ratio 5.2 Laboratory Tests Test 07/20/16 15:15 07/20/16 18:30 07/21/16 00:45 07/21/16 02:40 Troponin I Quantitative 83.832ng/mL (0.000-0.055) 96.465ng/mL (0.000-0.055) 71.449ng/mL (0.000-0.055) White Blood Count 8.7x10^3/uL (4.0-11.0) Red Blood Count 5.38x10^6/uL (4.30-5.70) Hemoglobin 17.4g/dL (13.0-17.5) Hematocrit 50.4% (39.0-53.0) Mean Corpuscular Volume 94fL (79-100) Mean Corpuscular Hemoglobin 33pg (25-35) Mean Corpuscular Hemoglobin Concent 35g/dL (31-37) Red Cell Distribution Width 13.7% (11.5-14.5) Platelet Count 155x10^3/uL (140-400) Neutrophils (%) (Auto) 69% (31-73) Lymphocytes (%) (Auto) 22% (24-48) Monocytes (%) (Auto) 7% (0-9) Eosinophils (%) (Auto) 1% (0-3) Basophils (%) (Auto) 1% (0-3) Neutrophils # (Auto) 6.0x10^3uL (1.8-7.7) Lymphocytes # (Auto) 1.9x10^3/uL (1.0-4.8) Monocytes # (Auto) 0.6x10^3/uL (0.0-1.1) Eosinophils # (Auto) 0.1x10^3/uL (0.0-0.7) Basophils # (Auto) 0.1x10^3/uL (0.0-0.2) Heparin Anti-Xa Act, Unfractionated 0.13IU/mL (0.30-0.70) Sodium Level 138mmol/L (136-145) Potassium Level 4.5mmol/L (3.5-5.1) Chloride Level 104mmol/L (98-107) Carbon Dioxide Level 24mmol/L (21-32) Anion Gap 10 (6-14) Blood Urea Nitrogen 12mg/dL (8-26) Creatinine 0.9mg/dL (0.7-1.3) Estimated GFR (Cockcroft-Gault) 87.0 Glucose Level 119mg/dL (70-99) Calcium Level 9.4mg/dL (8.5-10.1) Magnesium Level 2.2mg/dL (1.8-2.4) Triglycerides Level 91mg/dL (0-150) Cholesterol Level 215mg/dL (0-200) LDL Cholesterol, Calculated 156mg/dL (0-100) VLDL Cholesterol, Calculated 18mg/dL (0-40) HDL Cholesterol 41mg/dL (40-60) Cholesterol/HDL Ratio 5.2 Test 07/21/16 09:45 Heparin Anti-Xa Act, Unfractionated 0.45IU/mL (0.30-0.70) Medications Current Medications Nitroglycerin 0.4 mg 0.4 mg PRN Q5MIN PRN SL CP RATING > 1/10; Start 07/20/16 at 09:45; Stop 07/20/16 at 15:05; Status DC Nitroglycerin/ Dextrose (Nitroglycerin Drip) 250 ml @ 3 mls/hr 1X ONCE IV Last administered on 07/20/16t 10:02; Start 07/20/16 at 10:30; Stop 07/23/16 at 21: 49 Morphine Sulfate 2 mg PRN Q15MIN PRN IV/SQ PAIN GREATER THAN 3/10; Start at 09:45; Stop 07/21/16 at 09:44; Status DC Ondansetron HCl (Zofran) 4 mg PRN Q8HRS PRN IV NAUSEA/VOMITING; Start 07/20/16 at 12:30; Stop 07/20/16 at 13:36; Status DC Morphine Sulfate 2 mg 2 mg PRN Q2HR PRN IV PAIN; Start 07/20/16 at 12:30; Stop 07/21/16 at 12:29 Heparin Sodium/ Dextrose 500 ml @ 0 mls/hr CONT PRN IV . Last administered on 10:32; Start 07/20/16 at 13:00 Metoprolol Tartrate (Lopressor) 5 mg Q6HRS IVP ; Start 07/20/16 at 13:00; Stop at 14:53; Status DC Aspirin (Ecotrin) 325 mg DAILYWBKFT PO Last administered on 07/21/16 08:11; Start 07/20/16 at 13:00 Ondansetron HCl (Zofran) 4 mg PRN Q6HRS PRN IV NAUSEA/VOMITING; Start 07/20/16 at 13:35 Acetaminophen (Tylenol) 500 mg PRN Q6HRS PRN PO MILD PAIN / TEMP; Start at 13:45 Docusate Sodium (Colace) 100 mg DAILY PO Last administered on 07/21/16 08:11; Start 07/20/16 at 15:00 Iohexol 100 ml 100 ml STK-MED ONCE .ROUTE ; Start 07/20/16 at 12:40; Stop at 13:44; Status DC Heparin Sodium/ Sodium Chloride 1,000 ml @ As Directed STK-MED ONCE .ROUTE ; Start 07/20/16 at 12:41; Stop 07/20/16 at 13:44; Status DC Lidocaine HCl 20 ml STK-MED ONCE .ROUTE ; Start 07/20/16 at 12:41; Stop 07/20/16 at 13:44; Status DC Fentanyl Citrate (Fentanyl 2ml Vial) 100 mcg STK-MED ONCE .ROUTE ; Start at 13:42; Stop 07/20/16 at 13:45; Status DC Midazolam HCl (Versed) 2 mg STK-MED ONCE .ROUTE ; Start 07/20/16 at 13:42; Stop 07/20/16 at 13:45; Status DC Heparin Sodium/ Sodium Chloride 1,000 unit 1X ONCE IART Last administered on 14:29; Start 07/20/16 at 14:00; Stop 07/20/16 at 14:01; Status DC Heparin Sodium/ Sodium Chloride 1,000 unit 1X ONCE IART Last administered on 14:29; Start 07/20/16 at 14:00; Stop 07/20/16 at 14:01; Status DC Midazolam HCl (Versed) 2 mg 1X ONCE IV Last administered on 07/20/16 14:28; Start 07/20/16 at 14:00; Stop 07/20/16 at 14:01; Status DC Fentanyl Citrate (Fentanyl 2ml Vial) 100 mcg 1X ONCE IV Last administered on 14:28; Start 07/20/16 at 14:00; Stop 07/20/16 at 14:01; Status DC Iohexol (Omnipaque 300 Mg/ml) 100 ml 1X ONCE IART Last administered on 14:29; Start 07/20/16 at 14:00; Stop 07/20/16 at 14:01; Status DC Lidocaine HCl 20 ml 1X ONCE IJ Last administered on 07/20/16 14:29; Start 07/20 at 14:00; Stop 07/20/16 at 14:01; Status DC Midazolam HCl (Versed) 2 mg STK-MED ONCE .ROUTE ; Start 07/20/16 at 14:15; Stop 07/20/16 at 14:16; Status DC Sodium Chloride 3 ml 3 ml QSHIFT PRN IV AFTER MEDS AND BLOOD DRAWS; Start at 14:45 Sodium Chloride (Iv Sodium Chloride 0.9% 1000ml Bag) 1,000 ml @ 60 mls/hr [id number] IV Last administered on 07/20/16 14:44; Start 07/20/16 at 14:44; Stop at 00:43; Status DC Metoprolol Tartrate (Lopressor) 12.5 mg BID PO ; Start 07/20/16 at 21:00; Stop at 21:00; Status DC Lisinopril (Prinivil) 5 mg DAILY PO Last administered on 07/20/16 16:25; Start 07/20/16 at 15:00; Stop 07/20/16 at 17:21; Status DC Atorvastatin Calcium (Lipitor) 20 mg QHS PO Last administered on 07/20/16 20:33 ; Start 07/20/16 at 21:00; Stop 07/21/16 at 08:11; Status DC Nitroglycerin (Nitrostat) 0.4 mg PRN Q5MIN PRN SL CHEST PAIN; Start 07/20/16 at 14:45 Hydralazine HCl (Apresoline) 10 mg PRN Q4HRS PRN IVP ELEVATED BP, SEE COMMENTS Last administered on 07/20/16 17:24; Start 07/20/16 at 17:15 Metoprolol Tartrate (Lopressor) 50 mg BID PO Last administered on 07/21/16 08: 12; Start 07/20/16 at 21:00 Alprazolam (Xanax) 0.25 mg PRN Q8HRS PRN PO ANXIETY / AGITATION Last administered on 07/20/16 22:05; Start 07/20/16 at 17:30 Heparin Sodium (Porcine) 2050 unit 2,050 unit PRN Q6HRS PRN IV FOR UFH LEVEL LESS THAN 0.2 Last administered on 07/21/16 04:24; Start 07/20/16 at 19:45 Heparin Sodium/ Dextrose 500 ml @ 19.4 mls/hr CONT PRN IV SEE I/O RECORD; Start 07/20/16 at 19:45 Heparin Sodium (Porcine) (Heparin Sodium) 2,050 unit PRN Q6HRS PRN IV FOR UFH LEVEL LESS THAN 0.2; Start 07/20/16 at 19:45; Status UNV Atorvastatin Calcium (Lipitor) 40 mg QHS PO ; Start 07/21/16 at 21:00 Iodixanol (Visipaque 320) 200 ml STK-MED ONCE .ROUTE ; Start 07/20/16 at 14:00; Stop 07/21/16 at 08:26; Status DC Active Scripts Active Reported Amlodipine Besylate 5 Mg Tablet 5 Mg PO DAILY Pradaxa (Dabigatran Etexilate Mesylate) 150 Mg Capsule 1 Cap PO BID Metoprolol Succinate ( Xl ) (Metoprolol Succinate) 100 Mg Tab.er.24h 1 Tab PO DAILY Vitals/I & O Vital Sign - Last 24 Hours 07/20/16 07/20/16 07/20/16 07/20/16 12:30 14:28 14:30 14:39 Pulse 92 116 Resp 16 16 B/P 143/94 Pulse Ox 100 95 O2 Delivery Room Air Room Air Room Air 07/20/16 07/20/16 07/20/16 07/20/16 14:50 15:00 15:15 15:30 Temp 97.7 97.7 Pulse 92 61 97 107 Resp 16 B/P 145/93 157/96 146/95 177/103 Pulse Ox 92 O2 Delivery Room Air 07/20/16 07/20/16 07/20/16 07/20/16 16:00 16:25 16:30 16:36 Pulse 90 111 115 B/P 165/106 166/93 187/100 Pulse Ox 92 O2 Delivery Room Air 07/20/16 07/20/16 07/20/16 07/20/16 17:15 17:24 17:45 18:15 Pulse 117 111 114 107 B/P 171/102 166/93 164/85 154/97 07/20/16 07/20/16 07/20/16 07/21/16 20:20 20:33 23:25 03:30 Temp 98.4 98.2 98.4 98.2 Pulse 107 96 98 Resp 18 18 B/P 154/97 126/86 126/72 Pulse Ox 98 97 O2 Delivery Room Air Room Air Room Air 07/21/16 07/21/16 07/21/16 07/21/16 07:00 08:00 08:12 11:09 Temp 98.8 98.0 98.8 98.0 Pulse 81 104 64 Resp 18 18 B/P 113/82 113/82 104/72 Pulse Ox 97 97 O2 Delivery Room Air Room Air Room Air Intake and Output 07/20/16 07/20/16 07/21/16 15:00 23:00 07:00 Intake Total 120 ml 310 ml Output Total 500 ml 300 ml Balance -380 ml 10 ml CHRISTIAN WALSH MD Jul 21, 2016 12:10
[2016-07-21 14:46] VITALS: BP 136/88
[2016-07-21] MEDS ORDERED: ZOLPIDEM 5 MG TABLET. PO PRN (15:30)
--- NOTE | 2016-07-21 16:36 | CARD ---
APPROVED REPORT Procedures Left heart catheterization Left ventriculogram Selective coronary angiogram The patient is a 56-year-old male with chronic atrial fibrillation. He developed chest discomfort and his EKG showed anterior ST elevation but no reciprocal depression. He was initially treated with nit roglycerin for severe hypertension of greater than 200 mmHg and then heparin. His pain resolved. Hear t catheterization was recommended. Risks and benefits were discussed. The patient agreed with the pr hay. After informed consent was obtained the patient was brought to the heart catheterization lab. The are a of the right femoral artery was prepared the usual manner with Betadine, sterile draping and local anesthetic. An 18-gauge needle was used to enter the right femoral artery, a wire placed and a 6 Fren ch sheath placed over the wire. A 6 [place] JL4 diagnostic catheter was used to engage the left mims ry system and sequential injections in various views were obtained. A 6 [place] diagnostic catheter wa s then used to engage the right coronary artery and sequential injections in various views were obtai maury. A pigtail catheter was advanced to the ascending aorta and then the left ventricle. A 30 SANCHEZ le ft ventriculogram was performed. Pullback pressures were measured. The catheter was removed from the patient. Injection of the sheath showed normal placement. The sheath was removed and sealed with an A ngio-Seal product. The patient was moved to the holding area. Findings Hemodynamics. LV 138/22, aortic root 136/86. Coronaries. Left main. The left main had no lesions. Left anterior descending. The LAD has a mid >95 lesion. The first diagonal branch has a 95% lesion. Left circumflex. The left circumflex had a proximal 60-70% lesion, a distal 40% lesion and obtuse mar ginal lesion of 75%. Right coronary artery. The right coronary artery has a proximal 75% lesion, a mid 80% lesion and dist al small vessel disease. Left ventriculogram. The left ventricle shows mild anterior wall hypokinesis. There is apical akinesis. Ejection fraction is 40-45%. <Conclusion> Severe three-vessel coronary artery disease. Mildly decreased LV systolic function with an apical area of akinesis.
[2016-07-21] MEDS: HEPARIN 25,000UTS/500ML PREMIX 500 ML IV PRN (16:56)
--- NOTE | 2016-07-21 18:40 | PDOC2 ---
CONSULT Date of Consult Date of Consult DATE: 07/21/16 TIME: 18:39 Reason for Consult Reason for Consult: Severe three-vessel coronary artery disease Referring Physician Referring Physician: Dr. Monique Identification/Chief Complaint Chief Complaint Chest pain Source Source: Chart review, Patient History of Present Illness Reason for Visit: Mr. Alvarado is a very pleasant 56-year-old male who presented 2 days ago to our emergency room with severe crushing chest pain. The pain had started earlier in the morning and was associated with nausea and dizziness. He had never had analogous episode although upon further asking it does appear that he's had angina for some time. He was found to have ST elevations with a significant troponin leak and was emergently taken to the laborer hoisting. He denies any limitations in his daily activities and is able to walk several flight of stairs without shortness of breath. He has a history of chronic atrial fibrillation, hypertension, hyperlipidemia and a strong family history of ischemic heart disease. His coronary angiogram demonstrated severe three- vessel coronary artery disease with a proximal 75% stenosis of the LAD, a 80% stenosis of a good size obtuse marginal, a proximal and mid tight lesions of the RCA. His EF on echo was moderately reduced at 40-45%. His troponin peaked at 100 but is now slowly coming down. He is currently chest pain-free. I was consulted to consider the patient for surgical coronary revascularization. Past Medical History Cardiovascular: AFIB, HTN Past Surgical History Past Surgical History: No pertinent history Family History Family History: Heart Disease Social History 1 pack per day (40-50) ALCOHOL: rare Drugs: None Lives: with Family Domestic Violence: Neg Current Problem List Problem List Problems Medical Problems: (1) Chest pain Status: Acute (2) STEMI (ST elevation myocardial infarction) Status: Acute Current Medications Current Medications Current Medications Nitroglycerin 0.4 mg 0.4 mg PRN Q5MIN PRN SL CP RATING > 1/10; Start 07/20/16 at 09:45; Stop 07/20/16 at 15:05; Status DC Nitroglycerin/ Dextrose (Nitroglycerin Drip) 250 ml @ 3 mls/hr 1X ONCE IV Last administered on 07/20/16t 10:02; Start 07/20/16 at 10:30; Stop 07/23/16 at 21: 49 Morphine Sulfate 2 mg PRN Q15MIN PRN IV/SQ PAIN GREATER THAN 3/10; Start at 09:45; Stop 07/21/16 at 09:44; Status DC Ondansetron HCl (Zofran) 4 mg PRN Q8HRS PRN IV NAUSEA/VOMITING; Start 07/20/16 at 12:30; Stop 07/20/16 at 13:36; Status DC Morphine Sulfate 2 mg 2 mg PRN Q2HR PRN IV PAIN; Start 07/20/16 at 12:30; Stop 07/21/16 at 12:29; Status DC Heparin Sodium/ Dextrose 500 ml @ 0 mls/hr CONT PRN IV . Last administered on 10:32; Start 07/20/16 at 13:00; Stop 07/21/16 at 14:50; Status DC Metoprolol Tartrate (Lopressor) 5 mg Q6HRS IVP ; Start 07/20/16 at 13:00; Stop at 14:53; Status DC Aspirin (Ecotrin) 325 mg DAILYWBKFT PO Last administered on 07/21/16 08:11; Start 07/20/16 at 13:00; Stop 07/21/16 at 17:20; Status DC Ondansetron HCl (Zofran) 4 mg PRN Q6HRS PRN IV NAUSEA/VOMITING; Start 07/20/16 at 13:35 Acetaminophen (Tylenol) 500 mg PRN Q6HRS PRN PO MILD PAIN / TEMP; Start at 13:45 Docusate Sodium (Colace) 100 mg DAILY PO Last administered on 07/21/16 08:11; Start 07/20/16 at 15:00 Iohexol 100 ml 100 ml STK-MED ONCE .ROUTE ; Start 07/20/16 at 12:40; Stop at 13:44; Status DC Heparin Sodium/ Sodium Chloride 1,000 ml @ As Directed STK-MED ONCE .ROUTE ; Start 07/20/16 at 12:41; Stop 07/20/16 at 13:44; Status DC Lidocaine HCl 20 ml STK-MED ONCE .ROUTE ; Start 07/20/16 at 12:41; Stop 07/20/16 at 13:44; Status DC Fentanyl Citrate (Fentanyl 2ml Vial) 100 mcg STK-MED ONCE .ROUTE ; Start at 13:42; Stop 07/20/16 at 13:45; Status DC Midazolam HCl (Versed) 2 mg STK-MED ONCE .ROUTE ; Start 07/20/16 at 13:42; Stop 07/20/16 at 13:45; Status DC Heparin Sodium/ Sodium Chloride 1,000 unit 1X ONCE IART Last administered on 14:29; Start 07/20/16 at 14:00; Stop 07/20/16 at 14:01; Status DC Heparin Sodium/ Sodium Chloride 1,000 unit 1X ONCE IART Last administered on 14:29; Start 07/20/16 at 14:00; Stop 07/20/16 at 14:01; Status DC Midazolam HCl (Versed) 2 mg 1X ONCE IV Last administered on 07/20/16 14:28; Start 07/20/16 at 14:00; Stop 07/20/16 at 14:01; Status DC Fentanyl Citrate (Fentanyl 2ml Vial) 100 mcg 1X ONCE IV Last administered on 14:28; Start 07/20/16 at 14:00; Stop 07/20/16 at 14:01; Status DC Iohexol (Omnipaque 300 Mg/ml) 100 ml 1X ONCE IART Last administered on 14:29; Start 07/20/16 at 14:00; Stop 07/20/16 at 14:01; Status DC Lidocaine HCl 20 ml 1X ONCE IJ Last administered on 07/20/16 14:29; Start 07/20 at 14:00; Stop 07/20/16 at 14:01; Status DC Midazolam HCl (Versed) 2 mg STK-MED ONCE .ROUTE ; Start 07/20/16 at 14:15; Stop 07/20/16 at 14:16; Status DC Sodium Chloride 3 ml 3 ml QSHIFT PRN IV AFTER MEDS AND BLOOD DRAWS; Start at 14:45 Sodium Chloride (Iv Sodium Chloride 0.9% 1000ml Bag) 1,000 ml @ 60 mls/hr [id number] IV Last administered on 07/20/16 14:44; Start 07/20/16 at 14:44; Stop at 00:43; Status DC Metoprolol Tartrate (Lopressor) 12.5 mg BID PO ; Start 07/20/16 at 21:00; Stop at 21:00; Status DC Lisinopril (Prinivil) 5 mg DAILY PO Last administered on 07/20/16 16:25; Start 07/20/16 at 15:00; Stop 07/20/16 at 17:21; Status DC Atorvastatin Calcium (Lipitor) 20 mg QHS PO Last administered on 07/20/16 20:33 ; Start 07/20/16 at 21:00; Stop 07/21/16 at 08:11; Status DC Nitroglycerin (Nitrostat) 0.4 mg PRN Q5MIN PRN SL CHEST PAIN; Start 07/20/16 at 14:45 Hydralazine HCl (Apresoline) 10 mg PRN Q4HRS PRN IVP ELEVATED BP, SEE COMMENTS Last administered on 07/20/16 17:24; Start 07/20/16 at 17:15 Metoprolol Tartrate (Lopressor) 50 mg BID PO Last administered on 07/21/16 08: 12; Start 07/20/16 at 21:00 Alprazolam (Xanax) 0.25 mg PRN Q8HRS PRN PO ANXIETY / AGITATION Last administered on 07/20/16 22:05; Start 07/20/16 at 17:30 Heparin Sodium (Porcine) 2050 unit 2,050 unit PRN Q6HRS PRN IV FOR UFH LEVEL LESS THAN 0.2 Last administered on 07/21/16 04:24; Start 07/20/16 at 19:45 Heparin Sodium/ Dextrose 500 ml @ 19.4 mls/hr CONT PRN IV SEE I/O RECORD; Start 07/20/16 at 19:45; Stop 07/21/16 at 16:24; Status DC Heparin Sodium (Porcine) (Heparin Sodium) 2,050 unit PRN Q6HRS PRN IV FOR UFH LEVEL LESS THAN 0.2; Start 07/20/16 at 19:45; Status UNV Atorvastatin Calcium (Lipitor) 40 mg QHS PO ; Start 07/21/16 at 21:00 Iodixanol (Visipaque 320) 200 ml STK-MED ONCE .ROUTE ; Start 07/20/16 at 14:00; Stop 07/21/16 at 08:26; Status DC Zolpidem Tartrate (Ambien) 5 mg PRN QHS PRN PO INSOMNIA, MAY REPEAT IN 1HR; Start 07/21/16 at 15:30 Metoprolol Tartrate 25 mg 25 mg 1X ONCE PO ; Start 07/22/16 at 06:00; Stop at 06:01 Cefazolin Sodium/ Dextrose 50 ml @ 100 mls/hr 1X ONCE IV ; Start 07/22/16 at 06 :00; Stop 07/22/16 at 06:29 Heparin Sodium/ Dextrose 500 ml @ 0 mls/hr CONT PRN IV SEE I/O RECORD Last administered on 07/21/16t 16:56; Start 07/21/16 at 16:30; Stop 07/24/16 at 10:00 Active Scripts Active Reported Amlodipine Besylate 5 Mg Tablet 5 Mg PO DAILY Pradaxa (Dabigatran Etexilate Mesylate) 150 Mg Capsule 1 Cap PO BID Metoprolol Succinate ( Xl ) (Metoprolol Succinate) 100 Mg Tab.er.24h 1 Tab PO DAILY Allergies Allergies: Coded Allergies: No Known Drug Allergies (Unverified , 07/20/16) ROS General: No: Appetite, Chills, Fatigue, Malaise, Night Sweats PSYCHOLOGICAL ROS: No: Anxiety, Behavioral Disorder, Concentration difficultie , Decreased libido, Depression, Disorientation, Hallucinations, Hostility, Irritablity, Memory difficulties, Mood Swings, Obsessive thoughts, Physical abuse, Sexual abuse, Sleep disturbances, Suicidal ideation Eyes: No Blurry vision, No Decreased vision, No Double vision, No Dry eyes, No Excessive tearing, No Eye Pain, No Itchy Eyes, No Loss of vision, No Photophobia , No Scotomata, No Uses contacts, No Uses glasses HEENT: No: Epistaxis, Heacaches, Hearing change, Nasal congestion, Nasal discharge, Oral lesions, Sinus pain, Sneezing, Snoring, Sore Throat, Tinnitus, Vertigo, Visual Changes, Vocal changes ALLERGY AND IMMUNOLOGY: No: Hives, Insect Bite Sensitivity, Itchy/Watery Eyes, Nasal Congestion, Post Nasal Drip, Seasonal Allergies Hematological and Lymphatic: No: Bleeding Problems, Blood Clots, Blood Transfusions, Brusing, Night Sweats, Pallor, Swollen Lymph Nodes ENDOCRINE: No: Breast Changes, Galactorrhea, Hair Pattern Changes, Hot Flashes , Malaise/lethargy, Mood Swings, Palpitations, Polydipsia/polyuria, Skin Changes , Temperature Intolerance, Unexpected Weight Changes Respiratory: No: Cough, Hemoptysis, Orthopnea, Pleuritic Pain, SOB with excertion, Shortness of breath, Sputum Changes, Stridor, Tachypnea, Wheezing Cardiovascular: yes Chest Pain, No Edema, No Lt Headedness, No Orthopnea, No Palpitations, No Paroxysmal Noc. Dyspnea Gastrointestinal: Yes Nausea, No Abdominal Pain, No Constipation, No Diarrhea, No Hematochezia, No Melena, No Vomiting Genitourinary: No Discharge, No Dysuria, No Flank Pain, No Frequency, No Hematuria, No Incontinence, No Pain, No Retention, No Urgency Musculoskeletal: No Gait Disturbance, No Joint Pain, No Joint Stiffness, No Joint Swelling, No Muscle Pain, No Muscular Weakness, No Pain In:, No Swelling In: Neurological: No Behavorial Changes, No Bowel/Bladder ControlChng, No Confusion , No Dizziness, No Gait Disturbance, No Headaches, No Impaired Coord/balance, No Memory Loss, No Numbness/Tingling, No Seizures, No Speech Problems, No Tremors, No Visual Changes, No Weakness Skin: No Acne, No Dry Skin, No Eczema, No Hair Changes, No Lumps, No Mole Changes, No Mottling, No Nail Changes, No Pruritus, No Rash, No Skin Lesion Changes Physical Exam General: Alert, Oriented X3, No acute distress HEENT: Atraumatic, PERRLA Lungs: Clear to auscultation, Normal air movement Heart: Normal S1, Normal S2, Other (irregular) Abdomen: Soft, No tenderness Extremities: No edema Skin: No significant lesion Neuro: Normal gait, Normal speech, Strength at 5/5 X4 ext, Normal tone, Sensation intact, Cranial nerves 3-12 NL Psych/Mental Status: Mental status NL MUSCULOSKELETAL: No deformity Vitals VITALS Vital Signs Date Time Temp Pulse Resp B/P Pulse Ox O2 Delivery O2 Flow Rate FiO2 07/21/16 14:46 97.5 88 19 136/88 95 Room Air 97.5 Labs Labs Laboratory Tests Test 07/20/16 09:29 07/20/16 09:35 07/20/16 12:05 07/20/16 15:15 White Blood Count 6.0x10^3/uL (4.0-11.0) Red Blood Count 5.56x10^6/uL (4.30-5.70) Hemoglobin 17.8g/dL (13.0-17.5) Hematocrit 52.5% (39.0-53.0) Mean Corpuscular Volume 94fL (79-100) Mean Corpuscular Hemoglobin 32pg (25-35) Mean Corpuscular Hemoglobin Concent 34g/dL (31-37) Red Cell Distribution Width 13.7% (11.5-14.5) Platelet Count 170x10^3/uL (140-400) Neutrophils (%) (Auto) 55% (31-73) Lymphocytes (%) (Auto) 34% (24-48) Monocytes (%) (Auto) 6% (0-9) Eosinophils (%) (Auto) 5% (0-3) Basophils (%) (Auto) 1% (0-3) Neutrophils # (Auto) 3.3x10^3uL (1.8-7.7) Lymphocytes # (Auto) 2.0x10^3/uL (1.0-4.8) Monocytes # (Auto) 0.4x10^3/uL (0.0-1.1) Eosinophils # (Auto) 0.3x10^3/uL (0.0-0.7) Basophils # (Auto) 0.0x10^3/uL (0.0-0.2) Prothrombin Time 13.5SEC (11.7-14.0) Prothromb Time International Ratio 1.1 (0.8-1.1) Sodium Level 140mmol/L (136-145) Potassium Level 4.5mmol/L (3.5-5.1) Chloride Level 104mmol/L (98-107) Carbon Dioxide Level 27mmol/L (21-32) Anion Gap 9 (6-14) Blood Urea Nitrogen 14mg/dL (8-26) Creatinine 1.1mg/dL (0.7-1.3) Estimated GFR (Cockcroft-Gault) 69.0 Glucose Level 150mg/dL (70-99) Calcium Level 9.6mg/dL (8.5-10.1) Magnesium Level 2.2mg/dL (1.8-2.4) Total Bilirubin 0.9mg/dL (0.2-1.0) Direct Bilirubin 0.1mg/dL (0.0-0.2) Aspartate Amino Transf (AST/SGOT) 13U/L (15-37) Alanine Aminotransferase (ALT/SGPT) 22U/L (16-63) Alkaline Phosphatase 59U/L (46-116) Creatine Kinase 77U/L (39-308) Creatine Kinase MB (Mass) 0.6ng/mL (0.0-3.6) Creatine Kinase MB Relative Index 0.8% (0-4) Troponin I Quantitative < 0.017ng/mL (0.000-0.055) 83.832ng/mL (0.000-0.055) AW-Onr-U-Type Natriuretic Peptide 640pg/mL (0-124) Total Protein 7.8g/dL (6.4-8.2) Albumin 4.3g/dL (3.4-5.0) Lipase 166U/L (73-393) Thyroid Stimulating Hormone (TSH) 1.328uIU/mL (0.358-3.74) Bedside Troponin I 0.00ng/ml (<0.08) Urine Collection Type Unknown Urine Color Yellow Urine Clarity Clear Urine pH 7.[address] 1.015 Urine Protein 30mg/dL (NEG-TRACE) Urine Glucose (UA) Negativemg/dL (NEG) Urine Ketones (Stick) Negativemg/dL (NEG) Urine Blood Small (NEG) Urine Nitrite Negative (NEG) Urine Bilirubin Negative (NEG) Urine Urobilinogen Dipstick 0.2mg/dL (0.2 mg/dL) Urine Leukocyte Esterase Negative (NEG) Urine RBC 1-2/HPF (0-2) Urine WBC Occ/HPF (0-4) Urine Squamous Epithelial Cells Mod/LPF Urine Bacteria 0/HPF (0-FEW) Urine Opiates Screen Neg (NEG) Urine Methadone Screen Neg (NEG) Urine Barbiturates Neg (NEG) Urine Phencyclidine Screen Neg (NEG) Urine Amphetamine/Methamphetamine Neg (NEG) Urine Benzodiazepines Screen Neg (NEG) Urine Cocaine Screen Neg (NEG) Urine Cannabinoids Screen Pos (NEG) Urine Ethyl Alcohol Neg (NEG) Test 07/20/16 18:30 07/21/16 00:45 07/21/16 02:40 07/21/16 09:45 Troponin I Quantitative 96.465ng/mL (0.000-0.055) 71.449ng/mL (0.000-0.055) White Blood Count 8.7x10^3/uL (4.0-11.0) Red Blood Count 5.38x10^6/uL (4.30-5.70) Hemoglobin 17.4g/dL (13.0-17.5) Hematocrit 50.4% (39.0-53.0) Mean Corpuscular Volume 94fL (79-100) Mean Corpuscular Hemoglobin 33pg (25-35) Mean Corpuscular Hemoglobin Concent 35g/dL (31-37) Red Cell Distribution Width 13.7% (11.5-14.5) Platelet Count 155x10^3/uL (140-400) Neutrophils (%) (Auto) 69% (31-73) Lymphocytes (%) (Auto) 22% (24-48) Monocytes (%) (Auto) 7% (0-9) Eosinophils (%) (Auto) 1% (0-3) Basophils (%) (Auto) 1% (0-3) Neutrophils # (Auto) 6.0x10^3uL (1.8-7.7) Lymphocytes # (Auto) 1.9x10^3/uL (1.0-4.8) Monocytes # (Auto) 0.6x10^3/uL (0.0-1.1) Eosinophils # (Auto) 0.1x10^3/uL (0.0-0.7) Basophils # (Auto) 0.1x10^3/uL (0.0-0.2) Heparin Anti-Xa Act, Unfractionated 0.13IU/mL (0.30-0.70) 0.45IU/mL (0.30-0.70) Sodium Level 138mmol/L (136-145) Potassium Level 4.5mmol/L (3.5-5.1) Chloride Level 104mmol/L (98-107) Carbon Dioxide Level 24mmol/L (21-32) Anion Gap 10 (6-14) Blood Urea Nitrogen 12mg/dL (8-26) Creatinine 0.9mg/dL (0.7-1.3) Estimated GFR (Cockcroft-Gault) 87.0 Glucose Level 119mg/dL (70-99) Calcium Level 9.4mg/dL (8.5-10.1) Magnesium Level 2.2mg/dL (1.8-2.4) Triglycerides Level 91mg/dL (0-150) Cholesterol Level 215mg/dL (0-200) LDL Cholesterol, Calculated 156mg/dL (0-100) VLDL Cholesterol, Calculated 18mg/dL (0-40) HDL Cholesterol 41mg/dL (40-60) Cholesterol/HDL Ratio 5.2 Test 07/21/16 16:15 Heparin Anti-Xa Act, Unfractionated 0.42IU/mL (0.30-0.70) Laboratory Tests Test 07/21/16 00:45 07/21/16 02:40 07/21/16 09:45 07/21/16 16:15 Troponin I Quantitative 71.449ng/mL (0.000-0.055) White Blood Count 8.7x10^3/uL (4.0-11.0) Red Blood Count 5.38x10^6/uL (4.30-5.70) Hemoglobin 17.4g/dL (13.0-17.5) Hematocrit 50.4% (39.0-53.0) Mean Corpuscular Volume 94fL (79-100) Mean Corpuscular Hemoglobin 33pg (25-35) Mean Corpuscular Hemoglobin Concent 35g/dL (31-37) Red Cell Distribution Width 13.7% (11.5-14.5) Platelet Count 155x10^3/uL (140-400) Neutrophils (%) (Auto) 69% (31-73) Lymphocytes (%) (Auto) 22% (24-48) Monocytes (%) (Auto) 7% (0-9) Eosinophils (%) (Auto) 1% (0-3) Basophils (%) (Auto) 1% (0-3) Neutrophils # (Auto) 6.0x10^3uL (1.8-7.7) Lymphocytes # (Auto) 1.9x10^3/uL (1.0-4.8) Monocytes # (Auto) 0.6x10^3/uL (0.0-1.1) Eosinophils # (Auto) 0.1x10^3/uL (0.0-0.7) Basophils # (Auto) 0.1x10^3/uL (0.0-0.2) Heparin Anti-Xa Act, Unfractionated 0.13IU/mL (0.30-0.70) 0.45IU/mL (0.30-0.70) 0.42IU/mL (0.30-0.70) Sodium Level 138mmol/L (136-145) Potassium Level 4.5mmol/L (3.5-5.1) Chloride Level 104mmol/L (98-107) Carbon Dioxide Level 24mmol/L (21-32) Anion Gap 10 (6-14) Blood Urea Nitrogen 12mg/dL (8-26) Creatinine 0.9mg/dL (0.7-1.3) Estimated GFR (Cockcroft-Gault) 87.0 Glucose Level 119mg/dL (70-99) Calcium Level 9.4mg/dL (8.5-10.1) Magnesium Level 2.2mg/dL (1.8-2.4) Triglycerides Level 91mg/dL (0-150) Cholesterol Level 215mg/dL (0-200) LDL Cholesterol, Calculated 156mg/dL (0-100) VLDL Cholesterol, Calculated 18mg/dL (0-40) HDL Cholesterol 41mg/dL (40-60) Cholesterol/HDL Ratio 5.2 Images Images Hemodynamics. LV 138/22, aortic root 136/86. Coronaries. Left main. The left main had no lesions. Left anterior descending. The LAD has a mid >95 lesion. The first diagonal branch has a 95% lesion. Left circumflex. The left circumflex had a proximal 60-70% lesion, a distal 40% lesion and obtuse marginal lesion of 75%. Right coronary artery. The right coronary artery has a proximal 75% lesion, a mid 80% lesion and distal small vessel disease. Left ventriculogram. The left ventricle shows mild anterior wall hypokinesis. There is apical akinesis. Ejection fraction is 40-45%. Assessment/Plan Assessment/Plan 56-year-old male, with a history of hypertension, hyperlipidemia, strong family history of ischemic heart disease and long-term heavy smoking who presents with a STEMI. Coronary angiogram shows severe three-vessel coronary artery disease. Echo demonstrated moderately reduced LV function with an EF of 40-45% and no significant valvular disease. He is currently chest pain-free on a heparin and nitroglycerin drip. In view of his three-vessel coronary artery disease and reduced ejection fraction, I think Mr. Alvarado is an appropriate candidate for CABG. I quoted a mortality risk of 1-2%, a 1-2% risk of stroke, a 1% risk of renal failure requiring dialysis, 1% risk of sternal wound infection, 5% risk of pneumonia, 5% risk of perioperative FL, a 5-10% risk of re-sternotomy for bleeding and a 20-30% risk of postoperative arrhythmias. I also explained in detail the benefits of undergoing CABG. The patient accepts these risks and agrees to proceed. Plan for CABG 3 (FLETCHER to LAD, SVG to OM, SVG to RPDA,+/- SVG to diagonal), on Monday, July 25, 2016. Will obtain preoperative: 1) noncontrast CT of the chest 2) bilateral lower extremity greater saphenous vein mapping 3) carotid duplex 4) PFTs OLGA LOPEZ MD Jul 21, 2016 18:40
[2016-07-21 19:40] VITALS: BP 140/82
[2016-07-21] MEDS: ATORVASTATIN CALCIUM 40 MG TABLET. PO SCH (21:25)
[2016-07-21] MEDS: ALPRAZolam 0.25 MG TABLET PO PRN (22:58)
[2016-07-21 23:45] VITALS: BP 107/67
[2016-07-22 03:37] VITALS: BP 114/78
[2016-07-22 04:55] LABS: ALBUMIN 3.6 g/dL (3.4-5.0); ALBUMIN/GLOBULIN RATIO 1.1 (1.0-1.7); CALCIUM 9.5 mg/dL (8.5-10.1); CREATININE 1.3 mg/dL (0.7-1.3); GFR 56.9; TOTAL BILIRUBIN 1.2 mg/dL (0.2-1.0); TOTAL PROTEIN 6.9 g/dL (6.4-8.2)
[2016-07-22 05:38] LABS: BASO % 1 % (0-3); EOS % 2 % (0-3); HEMATOCRIT 47.9 % (39.0-53.0); HEMOGLOBIN 16.8 g/dL (13.0-17.5); LYMPH # 2.3 x10^3/uL (1.0-4.8); LYMPH % 34 % (24-48); MEAN CORPUSCULAR HEMOGLOBIN 32 pg (25-35); MEAN CORPUSCULAR HGB CONC 35 g/dL (31-37); MEAN CORPUSCULAR VOLUME 92 fL (79-100); MONO % 10 % (0-9); NEUT % 53 % (31-73); PLATELET COUNT 153 x10^3/uL (140-400); RED BLOOD COUNT 5.18 x10^6/uL (4.30-5.70); RED CELL DISTRIBUTION WIDTH 14.2 % (11.5-14.5); WHITE BLOOD COUNT 6.7 x10^3/uL (4.0-11.0)
[2016-07-22] MEDS: METOPROLOL TART IMMED RELEASE 25 MG TABLET. PO ONE ×2 (06:00→08:29)
[2016-07-22 07:00] VITALS: BP 120/81
[2016-07-22] MEDS: DOCUSATE SODIUM 100 MG CAPSULE. PO SCH (08:29)
[2016-07-22] MEDS: METOPROLOL TART IMMED RELEASE 50 MG TABLET. PO SCH (08:31)
--- NOTE | 2016-07-22 08:44 | RAD ---
APPROVED REPORT Patient Location: IN-PATIENT Laterality:Bilateral Indications pre op CABG Risk Factors Hypertension: Hyperlipidemia Smoking Doppler Spectral Velocity Analysis Right Left pCCA 76/20 cm/spCCA 77/22 cm/s mCCA 66/19 cm/smCCA 64/19 cm/s dCCA 67/21 cm/sdCCA 64/19 cm/s ECA 120/ cm/sECA 137/ cm/s pICA 59/28 cm/spICA 65/30 cm/s Lucinda 75/33 cm/smICA 72/31 cm/s dICA 48/21 cm/sdICA 49/24 cm/s Vert. 28/ cm/sVert. 14/ cm/s ICA/CCA 0.99ICA/CCA 0.94 Findings Grayscale images of the bilateral carotid arterial vessels was performed. On the right there is mild to moderate plaque at the carotid bifurcation. There is mild intimal hyper plasia throughout the common carotid artery. Spectral waveforms and color Doppler does not reveal any significant turbulence or high-grade stenosis. Velocity profiles are within normal limits. On the left there is again mild intimal thickening of the common carotid with moderate plaquing of th e bifurcation extending into the proximal aspect of the internal carotid artery. On delgado scale images the plaque appears to be greater than 50% in-stent stenosis but velocity waveforms and spectral prof bob revealed less than 50% stenosis. Right-sided vertebral artery velocities are antegrade. Left-sided vertebral artery velocities are dim inished and not well visualized. Critical Notification Critical Value: No <Conclusion> No high-grade stenosis in the right carotid arterial vessels. Moderate left internal carotid artery stenosis of approximately 50% by delgado scale images but less shelley n 50% by velocity criteria. Normal antegrade right vertebral artery flow, left vertebral artery not well visualized.
--- NOTE | 2016-07-22 08:56 | RAD ---
APPROVED REPORT Patient Location: IN-PATIENT Indications pre op CABG Vein Measurements Great Saphenous Small Saphenous RightLeft RightLeft Saph-Fem. Junction 5.50mm5.40mmProximal 3.80mm3.50mm Mid Thigh 2.90mm3.00mmMid 2.10mm1.90mm Distal Thigh 3.20mm3.30mmDistal 1.00mm1.00mm Proximal Calf 3.20mm2.50mm Mid Calf 2.80mm1.60mm Distal Calf 2.20mm1.60mm Findings Grayscale images of the bilateral greater and lesser saphenous veins were obtained with limited color Doppler and spectral measurements. On the right great saphenous vein appears to be noncompressible from the proximal thigh to the mid to distal thigh. No clear thrombus burden is noted but the vein appears thickened. The vein measures ap proximately 5.5 mm in the proximal segment and tapers to 3 mm and distal segment. The mid distal grea t saphenous vein from the knee to the ankle measures approximately 3 mm in average diameter and appea rs compressible. The lesser saphenous vein measures 3.8 mm and tapers to 1 mm vessel in the distal en d. No thrombus or compressibility issues are noted in the lesser saphenous vein on the right side. On the left great saphenous vein measures 5.4 mm proximally and tapers to 1.6 mm low the knee. The ve in appear suitable for bypass grafting. The left lesser saphenous vein measures 3.5 mm in greatest di mension and tapers to 1 mm at the ankle and over also appears to be suitable for bypass grafting. Critical Notification Critical Value: No <Conclusion> Possible nonocclusive thrombus in the right proximal great saphenous vein recommend lower extremity d uplex venous evaluation to rule out deep vein thrombosis. Suitable left greater and bilateral lesser saphenous veins for bypass grafting.
--- NOTE | 2016-07-22 09:13 | RAD ---
CT of the chest without contrast, 07/22/2016: History: Preop evaluation for CABG, recent heart attack Noncontrast scans were obtained as requested. There is mild calcific plaquing of the thoracic aorta and its branches. Moderate scattered coronary calcifications are present. The thoracic aorta is of normal caliber. The ascending aorta measures 3.7 cm in width. A trace amount of pericardial fluid is noted. A few small mediastinal lymph nodes are seen without evidence of pathologic enlargement. There is a 8 x 6 mm noncalcified nodule in the superior segment of the right lower lobe as best delineated on image 155 of series #6. Its contour is slightly lobulated. There is a tiny 2.5 mm calcified granuloma in the left upper lobe as seen on image 85 of series #6. A nearby smaller smooth nodule may be partially calcified. No other pulmonary nodule or significant infiltrate is seen. There is no evidence of pleural fluid. IMPRESSION: 1. Calcific plaquing of the aorta and coronary arteries. 2. Trace amount of pericardial fluid. 3. Calcified granulomata in the left upper lobe. 4. Small noncalcified right lower lobe pulmonary nodule which may be a granuloma or a neoplasm. According to the latest Fleischner guidelines, CT follow-up in 6-12 months is suggested. PQRS Compliance Statement: One or more of the following individualized dose reduction techniques were utilized for this examination: 1. Automated exposure control 2. Adjustment of the mA and/or kV according to patient size 3. Use of iterative reconstruction technique
[2016-07-22] MEDS ORDERED: HYDROmorphone 2 MG/ML VIAL IV PRN (09:15)
[2016-07-22] MEDS ORDERED: ONDANSETRON PF 4 MG/2 ML VIAL. IV PRN (09:15)
[2016-07-22] MEDS ORDERED: PROCHLORPERAZINE 10 MG/2 ML VIAL. IV PRN (09:15)
[2016-07-22] MEDS ORDERED: MORPHINE SULFATE 2 MG/ML DISP.SYRIN. IV PRN (09:15)
[2016-07-22] MEDS ORDERED: fentaNYL PF VIAL 100 MCG/2 ML VIAL IV PRN (09:15)
--- NOTE | 2016-07-22 10:31 | PDOC ---
CARDIO Progress Notes Date and Time Date of Service 07/22/2016 Time of Evaluation 1023 Subjective Subjective: No Chest Pain, No shortness of breath, No Palpitations, No Dizziness Vitals Vitals Vital Signs Date Time Temp Pulse Resp B/P Pulse Ox O2 Delivery O2 Flow Rate FiO2 07/22/16 08:31 91 120/81 07/22/16 07:00 97.7 18 94 Room Air 97.7 Weight Weight [ ] Input and Output Intake and Output Intake and Output 07/22/16 07:00 Intake Total 515 ml Output Total 1050 ml Balance -535 ml Intake Oral 200 ml IV Total 315 ml Output Urine Total 1050 ml Laboratory Labs Laboratory Tests Test 07/21/16 16:15 07/22/16 04:00 07/22/16 05:00 Heparin Anti-Xa Act, Unfractionated 0.42IU/mL (0.30-0.70) 0.37IU/mL (0.30-0.70) Sodium Level 139mmol/L (136-145) Potassium Level 5.0mmol/L (3.5-5.1) Chloride Level 103mmol/L (98-107) Carbon Dioxide Level 28mmol/L (21-32) Anion Gap 8 (6-14) Blood Urea Nitrogen 15mg/dL (8-26) Creatinine 1.3mg/dL (0.7-1.3) Estimated GFR (Cockcroft-Gault) 56.9 BUN/Creatinine Ratio 12 (6-20) Glucose Level 108mg/dL (70-99) Calcium Level 9.5mg/dL (8.5-10.1) Total Bilirubin 1.2mg/dL (0.2-1.0) Aspartate Amino Transf (AST/SGOT) 59U/L (15-37) Alanine Aminotransferase (ALT/SGPT) 37U/L (16-63) Alkaline Phosphatase 56U/L (46-116) Total Protein 6.9g/dL (6.4-8.2) Albumin 3.6g/dL (3.4-5.0) Albumin/Globulin Ratio 1.1 (1.0-1.7) White Blood Count 6.7x10^3/uL (4.0-11.0) Red Blood Count 5.18x10^6/uL (4.30-5.70) Hemoglobin 16.8g/dL (13.0-17.5) Hematocrit 47.9% (39.0-53.0) Mean Corpuscular Volume 92fL (79-100) Mean Corpuscular Hemoglobin 32pg (25-35) Mean Corpuscular Hemoglobin Concent 35g/dL (31-37) Red Cell Distribution Width 14.2% (11.5-14.5) Platelet Count 153x10^3/uL (140-400) Neutrophils (%) (Auto) 53% (31-73) Lymphocytes (%) (Auto) 34% (24-48) Monocytes (%) (Auto) 10% (0-9) Eosinophils (%) (Auto) 2% (0-3) Basophils (%) (Auto) 1% (0-3) Neutrophils # (Auto) 3.6x10^3uL (1.8-7.7) Lymphocytes # (Auto) 2.3x10^3/uL (1.0-4.8) Monocytes # (Auto) 0.6x10^3/uL (0.0-1.1) Eosinophils # (Auto) 0.2x10^3/uL (0.0-0.7) Basophils # (Auto) 0.0x10^3/uL (0.0-0.2) Physical Exam HEENT: NO Carotid Bruit, Neck Supple W Full Motion Chest: Symmetric LUNGS: Clear to Auscultation Heart: S1S2, no murmurs, irregularly irregular, other (tele: atrial fib with controlled ventricular rate) Abdomen: Soft N/T Extremities: No Edema, Other (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 STEMI troponin peaked @ 96.465 3 vessel disease on cath 07/20/2016 for CABG on 07/25/2016 - was treated with Pradaxa until 07/19/2016 (evening) continue heparin and NTG gtts for now pre-op evaluation in progress - ? of non-occlusive DVT in Rt GSV - Venous study pending CT of chest with 8 X 6 mm non-calcified nodule in superior segment of RUL CDU: LICA 50% on grayscale; < 50 % by velocity; HERLINDA - maru 2. atrial fib OAC with Pradaxa (last dose - 07/19/2016) now on heparin rate controlled with beta-blockers 3. ischemic cardiomyopathy LVEF mildly depressed @ 45% continue BB, holding ACEI in anticipation of CTS no evidence of CHF 4. HTN controlled today with increase BB dose and IV hydralazine off ACEI in anticipation of CTS 5. HLD LDLs = 156 increase to high dose statin therapy NERY DANGELO SENIOR UI DESIGNER Jul 22, 2016 10:31
--- NOTE | 2016-07-22 10:46 | RAD ---
Right lower extremity venous Doppler ultrasound History: Possible proximal right greater saphenous vein thrombosis, evaluate for deep venous thrombosis. Comparison: Lower extremity vein mapping earlier 07/22/2016. Procedure: Color Doppler, spectral Doppler, and grayscale images are obtained with and without compression in the area of the common femoral vein, superficial femoral vein - femoral vein junction, main femoral vein (superficial femoral vein) and popliteal vein. Veins of the proximal calf are also imaged. Findings: There is normal duplex flow, color flow and compressibility of all visualized deep venous segments. No evidence of deep venous thrombosis is present. There is presence of superficial venous thrombosis involving the greater saphenous vein of the proximal thigh. Impression: 1. No evidence of right lower extremity deep venous thrombosis. 2. Superficial venous thrombosis involving the greater saphenous vein of the proximal thigh.
--- NOTE | 2016-07-22 10:47 | PDOC ---
PROGRESS NOTES Chief Complaint Chief Complaint 1. 3 vessel dse by cardiac cath (07/20/16) 2. UA on presentation 3. History of hypertension. Hypertensive emergency present on admission. 4. Atrial fibrillation, rate controlled, on Pradaxa. 5. Obesity. History of Present Illness History of Present Illness Planned for CABG monday Heparin gtt and nitro gtt running Tylenol on stand by for headaches NO acute events overnight Needs to stay over the weekend as dw TCVS PLAN: CABG monday Heparin gtt and nitro gtt to cont dw HALI Domingo Vitals Vitals Vital Signs Date Time Temp Pulse Resp B/P Pulse Ox O2 Delivery O2 Flow Rate FiO2 07/22/16 08:31 91 120/81 07/22/16 07:00 97.7 18 94 Room Air 97.7 Physical Exam General: Alert, Oriented X3, No acute distress Heart: Normal S1, Normal S2, Other (irregular) Abdomen: Soft, No tenderness Extremities: No edema Skin: No significant lesion Labs LABS Laboratory Tests Test 07/21/16 16:15 07/22/16 04:00 07/22/16 05:00 Heparin Anti-Xa Act, Unfractionated 0.42IU/mL (0.30-0.70) 0.37IU/mL (0.30-0.70) Sodium Level 139mmol/L (136-145) Potassium Level 5.0mmol/L (3.5-5.1) Chloride Level 103mmol/L (98-107) Carbon Dioxide Level 28mmol/L (21-32) Anion Gap 8 (6-14) Blood Urea Nitrogen 15mg/dL (8-26) Creatinine 1.3mg/dL (0.7-1.3) Estimated GFR (Cockcroft-Gault) 56.9 BUN/Creatinine Ratio 12 (6-20) Glucose Level 108mg/dL (70-99) Calcium Level 9.5mg/dL (8.5-10.1) Total Bilirubin 1.2mg/dL (0.2-1.0) Aspartate Amino Transf (AST/SGOT) 59U/L (15-37) Alanine Aminotransferase (ALT/SGPT) 37U/L (16-63) Alkaline Phosphatase 56U/L (46-116) Total Protein 6.9g/dL (6.4-8.2) Albumin 3.6g/dL (3.4-5.0) Albumin/Globulin Ratio 1.1 (1.0-1.7) White Blood Count 6.7x10^3/uL (4.0-11.0) Red Blood Count 5.18x10^6/uL (4.30-5.70) Hemoglobin 16.8g/dL (13.0-17.5) Hematocrit 47.9% (39.0-53.0) Mean Corpuscular Volume 92fL (79-100) Mean Corpuscular Hemoglobin 32pg (25-35) Mean Corpuscular Hemoglobin Concent 35g/dL (31-37) Red Cell Distribution Width 14.2% (11.5-14.5) Platelet Count 153x10^3/uL (140-400) Neutrophils (%) (Auto) 53% (31-73) Lymphocytes (%) (Auto) 34% (24-48) Monocytes (%) (Auto) 10% (0-9) Eosinophils (%) (Auto) 2% (0-3) Basophils (%) (Auto) 1% (0-3) Neutrophils # (Auto) 3.6x10^3uL (1.8-7.7) Lymphocytes # (Auto) 2.3x10^3/uL (1.0-4.8) Monocytes # (Auto) 0.6x10^3/uL (0.0-1.1) Eosinophils # (Auto) 0.2x10^3/uL (0.0-0.7) Basophils # (Auto) 0.0x10^3/uL (0.0-0.2) Review of Systems Review of Systems no cp, soa, anxiety, n,v, d Assessment and Plan Assessmemt and Plan Problems Medical Problems: (1) Chest pain Status: Acute (2) STEMI (ST elevation myocardial infarction) Status: Acute Problems: Comment Review of Relevant I have reviewed the following items leonidas (where applicable) has been applied. Labs Laboratory Tests Test 07/20/16 12:05 07/20/16 15:15 07/20/16 18:30 07/21/16 00:45 Urine Collection Type Unknown Urine Color Yellow Urine Clarity Clear Urine pH 7.0 Urine Specific Clark 1.015 Urine Protein 30mg/dL (NEG-TRACE) Urine Glucose (UA) Negativemg/dL (NEG) Urine Ketones (Stick) Negativemg/dL (NEG) Urine Blood Small (NEG) Urine Nitrite Negative (NEG) Urine Bilirubin Negative (NEG) Urine Urobilinogen Dipstick 0.2mg/dL (0.2 mg/dL) Urine Leukocyte Esterase Negative (NEG) Urine RBC 1-2/HPF (0-2) Urine WBC Occ/HPF (0-4) Urine Squamous Epithelial Cells Mod/LPF Urine Bacteria 0/HPF (0-FEW) Urine Opiates Screen Neg (NEG) Urine Methadone Screen Neg (NEG) Urine Barbiturates Neg (NEG) Urine Phencyclidine Screen Neg (NEG) Urine Amphetamine/Methamphetamine Neg (NEG) Urine Benzodiazepines Screen Neg (NEG) Urine Cocaine Screen Neg (NEG) Urine Cannabinoids Screen Pos (NEG) Urine Ethyl Alcohol Neg (NEG) Troponin I Quantitative 83.832ng/mL (0.000-0.055) 96.465ng/mL (0.000-0.055) 71.449ng/mL (0.000-0.055) Test 07/21/16 02:40 07/21/16 09:45 07/21/16 16:15 07/22/16 04:00 White Blood Count 8.7x10^3/uL (4.0-11.0) Red Blood Count 5.38x10^6/uL (4.30-5.70) Hemoglobin 17.4g/dL (13.0-17.5) Hematocrit 50.4% (39.0-53.0) Mean Corpuscular Volume 94fL (79-100) Mean Corpuscular Hemoglobin 33pg (25-35) Mean Corpuscular Hemoglobin Concent 35g/dL (31-37) Red Cell Distribution Width 13.7% (11.5-14.5) Platelet Count 155x10^3/uL (140-400) Neutrophils (%) (Auto) 69% (31-73) Lymphocytes (%) (Auto) 22% (24-48) Monocytes (%) (Auto) 7% (0-9) Eosinophils (%) (Auto) 1% (0-3) Basophils (%) (Auto) 1% (0-3) Neutrophils # (Auto) 6.0x10^3uL (1.8-7.7) Lymphocytes # (Auto) 1.9x10^3/uL (1.0-4.8) Monocytes # (Auto) 0.6x10^3/uL (0.0-1.1) Eosinophils # (Auto) 0.1x10^3/uL (0.0-0.7) Basophils # (Auto) 0.1x10^3/uL (0.0-0.2) Heparin Anti-Xa Act, Unfractionated 0.13IU/mL (0.30-0.70) 0.45IU/mL (0.30-0.70) 0.42IU/mL (0.30-0.70) Sodium Level 138mmol/L (136-145) 139mmol/L (136-145) Potassium Level 4.5mmol/L (3.5-5.1) 5.0mmol/L (3.5-5.1) Chloride Level 104mmol/L (98-107) 103mmol/L (98-107) Carbon Dioxide Level 24mmol/L (21-32) 28mmol/L (21-32) Anion Gap 10 (6-14) 8 (6-14) Blood Urea Nitrogen 12mg/dL (8-26) 15mg/dL (8-26) Creatinine 0.9mg/dL (0.7-1.3) 1.3mg/dL (0.7-1.3) Estimated GFR (Cockcroft-Gault) 87.0 56.9 Glucose Level 119mg/dL (70-99) 108mg/dL (70-99) Calcium Level 9.4mg/dL (8.5-10.1) 9.5mg/dL (8.5-10.1) Magnesium Level 2.2mg/dL (1.8-2.4) Triglycerides Level 91mg/dL (0-150) Cholesterol Level 215mg/dL (0-200) LDL Cholesterol, Calculated 156mg/dL (0-100) VLDL Cholesterol, Calculated 18mg/dL (0-40) HDL Cholesterol 41mg/dL (40-60) Cholesterol/HDL Ratio 5.2 BUN/Creatinine Ratio 12 (6-20) Total Bilirubin 1.2mg/dL (0.2-1.0) Aspartate Amino Transf (AST/SGOT) 59U/L (15-37) Alanine Aminotransferase (ALT/SGPT) 37U/L (16-63) Alkaline Phosphatase 56U/L (46-116) Total Protein 6.9g/dL (6.4-8.2) Albumin 3.6g/dL (3.4-5.0) Albumin/Globulin Ratio 1.1 (1.0-1.7) Test 07/22/16 05:00 White Blood Count 6.7x10^3/uL (4.0-11.0) Red Blood Count 5.18x10^6/uL (4.30-5.70) Hemoglobin 16.8g/dL (13.0-17.5) Hematocrit 47.9% (39.0-53.0) Mean Corpuscular Volume 92fL (79-100) Mean Corpuscular Hemoglobin 32pg (25-35) Mean Corpuscular Hemoglobin Concent 35g/dL (31-37) Red Cell Distribution Width 14.2% (11.5-14.5) Platelet Count 153x10^3/uL (140-400) Neutrophils (%) (Auto) 53% (31-73) Lymphocytes (%) (Auto) 34% (24-48) Monocytes (%) (Auto) 10% (0-9) Eosinophils (%) (Auto) 2% (0-3) Basophils (%) (Auto) 1% (0-3) Neutrophils # (Auto) 3.6x10^3uL (1.8-7.7) Lymphocytes # (Auto) 2.3x10^3/uL (1.0-4.8) Monocytes # (Auto) 0.6x10^3/uL (0.0-1.1) Eosinophils # (Auto) 0.2x10^3/uL (0.0-0.7) Basophils # (Auto) 0.0x10^3/uL (0.0-0.2) Heparin Anti-Xa Act, Unfractionated 0.37IU/mL (0.30-0.70) Laboratory Tests Test 07/21/16 16:15 07/22/16 04:00 07/22/16 05:00 Heparin Anti-Xa Act, Unfractionated 0.42IU/mL (0.30-0.70) 0.37IU/mL (0.30-0.70) Sodium Level 139mmol/L (136-145) Potassium Level 5.0mmol/L (3.5-5.1) Chloride Level 103mmol/L (98-107) Carbon Dioxide Level 28mmol/L (21-32) Anion Gap 8 (6-14) Blood Urea Nitrogen 15mg/dL (8-26) Creatinine 1.3mg/dL (0.7-1.3) Estimated GFR (Cockcroft-Gault) 56.9 BUN/Creatinine Ratio 12 (6-20) Glucose Level 108mg/dL (70-99) Calcium Level 9.5mg/dL (8.5-10.1) Total Bilirubin 1.2mg/dL (0.2-1.0) Aspartate Amino Transf (AST/SGOT) 59U/L (15-37) Alanine Aminotransferase (ALT/SGPT) 37U/L (16-63) Alkaline Phosphatase 56U/L (46-116) Total Protein 6.9g/dL (6.4-8.2) Albumin 3.6g/dL (3.4-5.0) Albumin/Globulin Ratio 1.1 (1.0-1.7) White Blood Count 6.7x10^3/uL (4.0-11.0) Red Blood Count 5.18x10^6/uL (4.30-5.70) Hemoglobin 16.8g/dL (13.0-17.5) Hematocrit 47.9% (39.0-53.0) Mean Corpuscular Volume 92fL (79-100) Mean Corpuscular Hemoglobin 32pg (25-35) Mean Corpuscular Hemoglobin Concent 35g/dL (31-37) Red Cell Distribution Width 14.2% (11.5-14.5) Platelet Count 153x10^3/uL (140-400) Neutrophils (%) (Auto) 53% (31-73) Lymphocytes (%) (Auto) 34% (24-48) Monocytes (%) (Auto) 10% (0-9) Eosinophils (%) (Auto) 2% (0-3) Basophils (%) (Auto) 1% (0-3) Neutrophils # (Auto) 3.6x10^3uL (1.8-7.7) Lymphocytes # (Auto) 2.3x10^3/uL (1.0-4.8) Monocytes # (Auto) 0.6x10^3/uL (0.0-1.1) Eosinophils # (Auto) 0.2x10^3/uL (0.0-0.7) Basophils # (Auto) 0.0x10^3/uL (0.0-0.2) Medications Current Medications Nitroglycerin 0.4 mg 0.4 mg PRN Q5MIN PRN SL CP RATING > 1/10; Start 07/20/16 at 09:45; Stop 07/20/16 at 15:05; Status DC Nitroglycerin/ Dextrose (Nitroglycerin Drip) 250 ml @ 3 mls/hr 1X ONCE IV Last administered on 07/20/16 10:02; Start 07/20/16 at 10:30; Stop 07/23/16 at 21: 49 Morphine Sulfate 2 mg PRN Q15MIN PRN IV/SQ PAIN GREATER THAN 3/10; Start at 09:45; Stop 07/21/16 at 09:44; Status DC Ondansetron HCl (Zofran) 4 mg PRN Q8HRS PRN IV NAUSEA/VOMITING; Start 07/20/16 at 12:30; Stop 07/20/16 at 13:36; Status DC Morphine Sulfate 2 mg 2 mg PRN Q2HR PRN IV PAIN; Start 07/20/16 at 12:30; Stop 07/21/16 at 12:29; Status DC Heparin Sodium/ Dextrose 500 ml @ 0 mls/hr CONT PRN IV . Last administered on 10:32; Start 07/20/16 at 13:00; Stop 07/21/16 at 14:50; Status DC Metoprolol Tartrate (Lopressor) 5 mg Q6HRS IVP ; Start 07/20/16 at 13:00; Stop at 14:53; Status DC Aspirin (Ecotrin) 325 mg DAILYWBKFT PO Last administered on 07/21/16 08:11; Start 07/20/16 at 13:00; Stop 07/21/16 at 17:20; Status DC Ondansetron HCl (Zofran) 4 mg PRN Q6HRS PRN IV NAUSEA/VOMITING; Start 07/20/16 at 13:35 Acetaminophen (Tylenol) 500 mg PRN Q6HRS PRN PO MILD PAIN / TEMP; Start at 13:45 Docusate Sodium (Colace) 100 mg DAILY PO Last administered on 07/22/16 08:29; Start 07/20/16 at 15:00 Iohexol 100 ml 100 ml STK-MED ONCE .ROUTE ; Start 07/20/16 at 12:40; Stop at 13:44; Status DC Heparin Sodium/ Sodium Chloride 1,000 ml @ As Directed STK-MED ONCE .ROUTE ; Start 07/20/16 at 12:41; Stop 07/20/16 at 13:44; Status DC Lidocaine HCl 20 ml STK-MED ONCE .ROUTE ; Start 07/20/16 at 12:41; Stop 07/20/16 at 13:44; Status DC Fentanyl Citrate (Fentanyl 2ml Vial) 100 mcg STK-MED ONCE .ROUTE ; Start at 13:42; Stop 07/20/16 at 13:45; Status DC Midazolam HCl (Versed) 2 mg STK-MED ONCE .ROUTE ; Start 07/20/16 at 13:42; Stop 07/20/16 at 13:45; Status DC Heparin Sodium/ Sodium Chloride 1,000 unit 1X ONCE IART Last administered on 14:29; Start 07/20/16 at 14:00; Stop 07/20/16 at 14:01; Status DC Heparin Sodium/ Sodium Chloride 1,000 unit 1X ONCE IART Last administered on 14:29; Start 07/20/16 at 14:00; Stop 07/20/16 at 14:01; Status DC Midazolam HCl (Versed) 2 mg 1X ONCE IV Last administered on 07/20/16 14:28; Start 07/20/16 at 14:00; Stop 07/20/16 at 14:01; Status DC Fentanyl Citrate (Fentanyl 2ml Vial) 100 mcg 1X ONCE IV Last administered on 14:28; Start 07/20/16 at 14:00; Stop 07/20/16 at 14:01; Status DC Iohexol (Omnipaque 300 Mg/ml) 100 ml 1X ONCE IART Last administered on 14:29; Start 07/20/16 at 14:00; Stop 07/20/16 at 14:01; Status DC Lidocaine HCl 20 ml 1X ONCE IJ Last administered on 07/20/16 14:29; Start 07/20 at 14:00; Stop 07/20/16 at 14:01; Status DC Midazolam HCl (Versed) 2 mg STK-MED ONCE .ROUTE ; Start 07/20/16 at 14:15; Stop 07/20/16 at 14:16; Status DC Sodium Chloride 3 ml 3 ml QSHIFT PRN IV AFTER MEDS AND BLOOD DRAWS; Start at 14:45 Sodium Chloride (Iv Sodium Chloride 0.9% 1000ml Bag) 1,000 ml @ 60 mls/hr [id number] IV Last administered on 07/20/16 14:44; Start 07/20/16 at 14:44; Stop at 00:43; Status DC Metoprolol Tartrate (Lopressor) 12.5 mg BID PO ; Start 07/20/16 at 21:00; Stop at 21:00; Status DC Lisinopril (Prinivil) 5 mg DAILY PO Last administered on 07/20/16 16:25; Start 07/20/16 at 15:00; Stop 07/20/16 at 17:21; Status DC Atorvastatin Calcium (Lipitor) 20 mg QHS PO Last administered on 07/20/16 20:33 ; Start 07/20/16 at 21:00; Stop 07/21/16 at 08:11; Status DC Nitroglycerin (Nitrostat) 0.4 mg PRN Q5MIN PRN SL CHEST PAIN; Start 07/20/16 at 14:45 Hydralazine HCl (Apresoline) 10 mg PRN Q4HRS PRN IVP ELEVATED BP, SEE COMMENTS Last administered on 07/20/16 17:24; Start 07/20/16 at 17:15 Metoprolol Tartrate (Lopressor) 50 mg BID PO Last administered on 07/22/16 08: 31; Start 07/20/16 at 21:00 Alprazolam (Xanax) 0.25 mg PRN Q8HRS PRN PO ANXIETY / AGITATION Last administered on 07/21/16 22:58; Start 07/20/16 at 17:30 Heparin Sodium (Porcine) 2050 unit 2,050 unit PRN Q6HRS PRN IV FOR UFH LEVEL LESS THAN 0.2 Last administered on 07/21/16 04:24; Start 07/20/16 at 19:45 Heparin Sodium/ Dextrose 500 ml @ 19.4 mls/hr CONT PRN IV SEE I/O RECORD; Start 07/20/16 at 19:45; Stop 07/21/16 at 16:24; Status DC Heparin Sodium (Porcine) (Heparin Sodium) 2,050 unit PRN Q6HRS PRN IV FOR UFH LEVEL LESS THAN 0.2; Start 07/20/16 at 19:45; Status UNV Atorvastatin Calcium (Lipitor) 40 mg QHS PO Last administered on 07/21/16 21:25 ; Start 07/21/16 at 21:00 Iodixanol (Visipaque 320) 200 ml STK-MED ONCE .ROUTE ; Start 07/20/16 at 14:00; Stop 07/21/16 at 08:26; Status DC Zolpidem Tartrate (Ambien) 5 mg PRN QHS PRN PO INSOMNIA, MAY REPEAT IN 1HR; Start 07/21/16 at 15:30 Metoprolol Tartrate 25 mg 25 mg 1X ONCE PO ; Start 07/22/16 at 06:00; Stop at 06:02; Status DC Cefazolin Sodium/ Dextrose 50 ml @ 100 mls/hr 1X ONCE IV ; Start 07/22/16 at 06 :00; Stop 07/22/16 at 06:29; Status DC Heparin Sodium/ Dextrose 500 ml @ 0 mls/hr CONT PRN IV SEE I/O RECORD Last administered on 07/21/16 16:56; Start 07/21/16 at 16:30; Stop 07/24/16 at 10:00 Lidocaine HCl 2 ml 2 ml 1X PRN PRN ID IV START; Start 07/25/16 at 06:00; Stop 07/26/16 at 05:59; Status Cancel Lactated Ringer's (Iv Lactated Ringers) 1,000 ml @ 0 mls/hr Q0M IV ; Start 01/31 at 06:00; Stop 07/25/16 at 17:59 Fentanyl Citrate (Fentanyl 2ml Vial) 25 mcg PRN Q5MIN PRN IV Acute Pain; Start 07/22/16 at 09:15; Stop 07/23/16 at 09:14 Morphine Sulfate 2 mg PRN Q10MIN PRN IV Mild Pain; Start 07/22/16 at 09:15; Stop 07/23/16 at 09:14 Hydromorphone HCl (Dilaudid) 0.4 mg PRN Q10MIN PRN IV Moderate to severe pain; Start 07/22/16 at 09:15; Stop 07/23/16 at 09:14 Ondansetron HCl (Zofran) 4 mg PRN Q6HRS PRN IV Nausea, 1st Choice; Start at 09:15; Stop 07/23/16 at 09:14 Prochlorperazine Edisylate (Compazine) 5 mg PRN Q6HRS PRN IV Nausea/Vomiting, 2nd Choice; Start 07/22/16 at 09:15; Stop 07/23/16 at 09:14 Ondansetron HCl (Zofran) 4 mg PRN Q6HRS PRN IV NAUSEA/VOMITING; Start 07/25/16 at 07:00; Stop 07/26/16 at 06:59 Fentanyl Citrate (Fentanyl 2ml Vial) 25 mcg PRN Q5MIN PRN IV MILD PAIN; Start 07/25/16 at 07:00; Stop 07/26/16 at 06:59 Fentanyl Citrate (Fentanyl 2ml Vial) 50 mcg PRN Q5MIN PRN IV MODERATE PAIN; Start 07/25/16 at 07:00; Stop 07/26/16 at 06:59 Morphine Sulfate 1 mg 1 mg PRN Q10MIN PRN IV SEVERE PAIN; Start 07/25/16 at 07: 00; Stop 07/26/16 at 06:59 Lactated Ringer's (Iv Lactated Ringers) 1,000 ml @ 0 mls/hr Q0M IV ; Start 01/31 at 07:00; Stop 07/25/16 at 18:59 Lidocaine HCl 2 ml PRN 1X PRN ID PRIOR TO IV START; Start 07/25/16 at 07:00; Stop 07/26/16 at 06:59 Hydromorphone HCl (Dilaudid) 0.5 mg PRN Q10MIN PRN IV SEV PAIN, Second choice; Start 07/25/16 at 07:00; Stop 07/26/16 at 06:59 Prochlorperazine Edisylate 5 mg 5 mg PACU PRN PRN IV NAUSEA, MRX1; Start at 07:00; Stop 07/26/16 at 06:59 Cefazolin Sodium/ Dextrose (Ancef 2gm Premix) 50 ml @ 100 mls/hr 1X ONCE IV ; Start 07/25/16 at 06:00; Stop 07/25/16 at 06:29 Metoprolol Tartrate (Lopressor) 25 mg 1X ONCE PO ; Start 07/25/16 at 06:00; Stop 07/25/16 at 06:01 Active Scripts Active Reported Amlodipine Besylate 5 Mg Tablet 5 Mg PO DAILY Pradaxa (Dabigatran Etexilate Mesylate) 150 Mg Capsule 1 Cap PO BID Metoprolol Succinate ( Xl ) (Metoprolol Succinate) 100 Mg Tab.er.24h 1 Tab PO DAILY Vitals/I & O Vital Sign - Last 24 Hours 07/21/16 07/21/16 07/21/16 07/21/16 11:09 14:46 19:30 19:40 Temp 98.0 97.5 97.4 98.0 97.5 97.4 Pulse 64 88 96 Resp 18 18 B/P 104/72 136/88 140/82 Pulse Ox 97 95 97 O2 Delivery Room Air Room Air Room Air Room Air 07/21/16 07/21/16 07/22/16 07/22/16 21:25 23:45 03:37 07:00 Temp 98.3 98.6 97.7 98.3 98.6 97.7 Pulse 110 85 83 91 Resp 18 16 18 B/P 136/88 107/67 114/78 120/81 Pulse Ox 96 96 94 O2 Delivery Room Air Room Air Room Air 07/22/16 08:31 Pulse 91 B/P 120/81 Intake and Output 07/21/16 07/21/16 07/22/16 15:00 23:00 07:00 Intake Total 515 ml Output Total 300 ml 300 ml 450 ml Balance -300 ml -300 ml 65 ml CHRISITAN WALSH MD Jul 22, 2016 10:47
[2016-07-22 11:33] VITALS: BP 123/84
[2016-07-22 14:58] VITALS: BP 108/70
--- NOTE | 2016-07-22 15:43 | EKG ---
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
[2016-07-22] MEDS: HEPARIN 25,000UTS/500ML PREMIX 500 ML IV PRN (15:46)
[2016-07-22] MEDS ORDERED: METOPROLOL TARTRATE 5 MG/5 ML VIAL. IVP ONE (16:30)
[2016-07-22 16:58] LABS: PARTIAL THROMBOPLASTIN TIME 51 SEC (24-38)
[2016-07-22 17:12] LABS: CKMB MASS 4.3 ng/mL (0.0-3.6)
[2016-07-22] MEDS ORDERED: DIGOXIN IV 500 MCG/2 ML AMPUL. IV ONE ×2 (18:30→18:45)
[2016-07-22 19:44] VITALS: BP 122/66
[2016-07-22] MEDS: ATORVASTATIN CALCIUM 40 MG TABLET. PO SCH (20:33)
[2016-07-22] MEDS: METOPROLOL TART IMMED RELEASE 25 MG TABLET. PO SCH (20:33)
[2016-07-22] MEDS: ALPRAZolam 0.25 MG TABLET PO PRN (20:33)
[2016-07-22 23:14] VITALS: BP 112/65
[2016-07-23 03:13] VITALS: BP 106/68
[2016-07-23 07:50] VITALS: BP 116/72
[2016-07-23] MEDS: DOCUSATE SODIUM 100 MG CAPSULE. PO SCH (08:40)
[2016-07-23] MEDS: HEPARIN 25,000UTS/500ML PREMIX 500 ML IV PRN (09:04)
[2016-07-23] MEDS: METOPROLOL TART IMMED RELEASE 25 MG TABLET. PO SCH ×2 (10:44→21:23)
[2016-07-23 11:00] VITALS: BP 126/83
--- NOTE | 2016-07-23 11:58 | PDOC ---
PROGRESS NOTES Chief Complaint Chief Complaint 1. 3 vessel dse by cardiac cath (07/20/16) 2. UA on presentation 3. History of hypertension. Hypertensive emergency present on admission. 4. Atrial fibrillation, rate controlled, on Pradaxa. 5. Obesity. History of Present Illness History of Present Illness Planned for CABG monday Heparin gtt running Off nitro gtt - no CP Tylenol on stand by for headaches NO acute events overnight Needs to stay over the weekend as dw TCVS PLAN: CABG monday Heparin gtt to cont Nitro SL prn dw RN and pt and Vitals Vitals Vital Signs Date Time Temp Pulse Resp B/P Pulse Ox O2 Delivery O2 Flow Rate FiO2 07/23/16 10:44 91 126/83 07/23/16 07:50 98.0 20 97 Room Air 98.0 Physical Exam General: Alert, Oriented X3, No acute distress Heart: Normal S1, Normal S2, Other (irregular) Abdomen: Soft, No tenderness Extremities: No edema Skin: No significant lesion Labs LABS Laboratory Tests Test 07/22/16 16:30 07/23/16 00:45 07/23/16 07:11 Activated Partial Thromboplast Time 51SEC (24-38) Heparin Anti-Xa Act, Unfractionated < 0.10IU/mL (0.30-0.70) 0.38IU/mL (0.30-0.70) 0.46IU/mL (0.30-0.70) Creatine Kinase 203U/L (39-308) Creatine Kinase MB (Mass) 4.3ng/mL (0.0-3.6) Creatine Kinase MB Relative Index 2.1% (0-4) Troponin I Quantitative 11.272ng/mL (0.000-0.055) Review of Systems Review of Systems no cp, soa, n.v.d Assessment and Plan Assessmemt and Plan Problems Medical Problems: (1) Chest pain Status: Acute (2) STEMI (ST elevation myocardial infarction) Status: Acute Problems: Comment Review of Relevant I have reviewed the following items leonidas (where applicable) has been applied. Labs Laboratory Tests Test 07/21/16 16:15 07/22/16 04:00 07/22/16 05:00 07/22/16 16:30 Heparin Anti-Xa Act, Unfractionated 0.42IU/mL (0.30-0.70) 0.37IU/mL (0.30-0.70) < 0.10IU/mL (0.30-0.70) Sodium Level 139mmol/L (136-145) Potassium Level 5.0mmol/L (3.5-5.1) Chloride Level 103mmol/L (98-107) Carbon Dioxide Level 28mmol/L (21-32) Anion Gap 8 (6-14) Blood Urea Nitrogen 15mg/dL (8-26) Creatinine 1.3mg/dL (0.7-1.3) Estimated GFR (Cockcroft-Gault) 56.9 BUN/Creatinine Ratio 12 (6-20) Glucose Level 108mg/dL (70-99) Calcium Level 9.5mg/dL (8.5-10.1) Total Bilirubin 1.2mg/dL (0.2-1.0) Aspartate Amino Transf (AST/SGOT) 59U/L (15-37) Alanine Aminotransferase (ALT/SGPT) 37U/L (16-63) Alkaline Phosphatase 56U/L (46-116) Total Protein 6.9g/dL (6.4-8.2) Albumin 3.6g/dL (3.4-5.0) Albumin/Globulin Ratio 1.1 (1.0-1.7) White Blood Count 6.7x10^3/uL (4.0-11.0) Red Blood Count 5.18x10^6/uL (4.30-5.70) Hemoglobin 16.8g/dL (13.0-17.5) Hematocrit 47.9% (39.0-53.0) Mean Corpuscular Volume 92fL (79-100) Mean Corpuscular Hemoglobin 32pg (25-35) Mean Corpuscular Hemoglobin Concent 35g/dL (31-37) Red Cell Distribution Width 14.2% (11.5-14.5) Platelet Count 153x10^3/uL (140-400) Neutrophils (%) (Auto) 53% (31-73) Lymphocytes (%) (Auto) 34% (24-48) Monocytes (%) (Auto) 10% (0-9) Eosinophils (%) (Auto) 2% (0-3) Basophils (%) (Auto) 1% (0-3) Neutrophils # (Auto) 3.6x10^3uL (1.8-7.7) Lymphocytes # (Auto) 2.3x10^3/uL (1.0-4.8) Monocytes # (Auto) 0.6x10^3/uL (0.0-1.1) Eosinophils # (Auto) 0.2x10^3/uL (0.0-0.7) Basophils # (Auto) 0.0x10^3/uL (0.0-0.2) Hemoglobin A1c 5.6% (4.8-5.6) Activated Partial Thromboplast Time 51SEC (24-38) Creatine Kinase 203U/L (39-308) Creatine Kinase MB (Mass) 4.3ng/mL (0.0-3.6) Creatine Kinase MB Relative Index 2.1% (0-4) Troponin I Quantitative 11.272ng/mL (0.000-0.055) Test 07/23/16 00:45 07/23/16 07:11 Heparin Anti-Xa Act, Unfractionated 0.38IU/mL (0.30-0.70) 0.46IU/mL (0.30-0.70) Laboratory Tests Test 07/22/16 16:30 07/23/16 00:45 07/23/16 07:11 Activated Partial Thromboplast Time 51SEC (24-38) Heparin Anti-Xa Act, Unfractionated < 0.10IU/mL (0.30-0.70) 0.38IU/mL (0.30-0.70) 0.46IU/mL (0.30-0.70) Creatine Kinase 203U/L (39-308) Creatine Kinase MB (Mass) 4.3ng/mL (0.0-3.6) Creatine Kinase MB Relative Index 2.1% (0-4) Troponin I Quantitative 11.272ng/mL (0.000-0.055) Medications Current Medications Nitroglycerin 0.4 mg 0.4 mg PRN Q5MIN PRN SL CP RATING > 1/10; Start 07/20/16 at 09:45; Stop 07/20/16 at 15:05; Status DC Nitroglycerin/ Dextrose (Nitroglycerin Drip) 250 ml @ 3 mls/hr 1X ONCE IV Last administered on 07/20/16 10:02; Start 07/20/16 at 10:30; Stop 07/23/16 at 21: 49 Morphine Sulfate 2 mg PRN Q15MIN PRN IV/SQ PAIN GREATER THAN 3/10; Start at 09:45; Stop 07/21/16 at 09:44; Status DC Ondansetron HCl (Zofran) 4 mg PRN Q8HRS PRN IV NAUSEA/VOMITING; Start 07/20/16 at 12:30; Stop 07/20/16 at 13:36; Status DC Morphine Sulfate 2 mg 2 mg PRN Q2HR PRN IV PAIN; Start 07/20/16 at 12:30; Stop 07/21/16 at 12:29; Status DC Heparin Sodium/ Dextrose 500 ml @ 0 mls/hr CONT PRN IV . Last administered on 10:32; Start 07/20/16 at 13:00; Stop 07/21/16 at 14:50; Status DC Metoprolol Tartrate (Lopressor) 5 mg Q6HRS IVP ; Start 07/20/16 at 13:00; Stop at 14:53; Status DC Aspirin (Ecotrin) 325 mg [id number] PO Last administered on 07/21/16 08:11; Start 07/20/16 at 13:00; Stop 07/21/16 at 17:20; Status DC Ondansetron HCl (Zofran) 4 mg PRN Q6HRS PRN IV NAUSEA/VOMITING; Start 07/20/16 at 13:35 Acetaminophen (Tylenol) 500 mg PRN Q6HRS PRN PO MILD PAIN / TEMP; Start at 13:45 Docusate Sodium (Colace) 100 mg DAILY PO Last administered on 07/23/16 08:40; Start 07/20/16 at 15:00 Iohexol 100 ml 100 ml STK-MED ONCE .ROUTE ; Start 07/20/16 at 12:40; Stop at 13:44; Status DC Heparin Sodium/ Sodium Chloride 1,000 ml @ As Directed STK-MED ONCE .ROUTE ; Start 07/20/16 at 12:41; Stop 07/20/16 at 13:44; Status DC Lidocaine HCl 20 ml STK-MED ONCE .ROUTE ; Start 07/20/16 at 12:41; Stop 07/20/16 at 13:44; Status DC Fentanyl Citrate (Fentanyl 2ml Vial) 100 mcg STK-MED ONCE .ROUTE ; Start at 13:42; Stop 07/20/16 at 13:45; Status DC Midazolam HCl (Versed) 2 mg STK-MED ONCE .ROUTE ; Start 07/20/16 at 13:42; Stop 07/20/16 at 13:45; Status DC Heparin Sodium/ Sodium Chloride 1,000 unit 1X ONCE IART Last administered on 14:29; Start 07/20/16 at 14:00; Stop 07/20/16 at 14:01; Status DC Heparin Sodium/ Sodium Chloride 1,000 unit 1X ONCE IART Last administered on 14:29; Start 07/20/16 at 14:00; Stop 07/20/16 at 14:01; Status DC Midazolam HCl (Versed) 2 mg 1X ONCE IV Last administered on 07/20/16 14:28; Start 07/20/16 at 14:00; Stop 07/20/16 at 14:01; Status DC Fentanyl Citrate (Fentanyl 2ml Vial) 100 mcg 1X ONCE IV Last administered on 14:28; Start 07/20/16 at 14:00; Stop 07/20/16 at 14:01; Status DC Iohexol (Omnipaque 300 Mg/ml) 100 ml 1X ONCE IART Last administered on 14:29; Start 07/20/16 at 14:00; Stop 07/20/16 at 14:01; Status DC Lidocaine HCl 20 ml 1X ONCE IJ Last administered on 07/20/16 14:29; Start 07/20 at 14:00; Stop 07/20/16 at 14:01; Status DC Midazolam HCl (Versed) 2 mg STK-MED ONCE .ROUTE ; Start 07/20/16 at 14:15; Stop 07/20/16 at 14:16; Status DC Sodium Chloride 3 ml 3 ml QSHIFT PRN IV AFTER MEDS AND BLOOD DRAWS; Start at 14:45 Sodium Chloride (Iv Sodium Chloride 0.9% 1000ml Bag) 1,000 ml @ 60 mls/hr [id number] IV Last administered on 07/20/16 14:44; Start 07/20/16 at 14:44; Stop at 00:43; Status DC Metoprolol Tartrate (Lopressor) 12.5 mg BID PO ; Start 07/20/16 at 21:00; Stop at 21:00; Status DC Lisinopril (Prinivil) 5 mg DAILY PO Last administered on 07/20/16 16:25; Start 07/20/16 at 15:00; Stop 07/20/16 at 17:21; Status DC Atorvastatin Calcium (Lipitor) 20 mg QHS PO Last administered on 07/20/16 20:33 ; Start 07/20/16 at 21:00; Stop 07/21/16 at 08:11; Status DC Nitroglycerin (Nitrostat) 0.4 mg PRN Q5MIN PRN SL CHEST PAIN; Start 07/20/16 at 14:45 Hydralazine HCl (Apresoline) 10 mg PRN Q4HRS PRN IVP ELEVATED BP, SEE COMMENTS Last administered on 07/20/16 17:24; Start 07/20/16 at 17:15 Metoprolol Tartrate (Lopressor) 50 mg BID PO Last administered on 07/22/16 08: 31; Start 07/20/16 at 21:00; Stop 07/22/16 at 19:03; Status DC Alprazolam (Xanax) 0.25 mg PRN Q8HRS PRN PO ANXIETY / AGITATION Last administered on 07/22/16 20:33; Start 07/20/16 at 17:30 Heparin Sodium (Porcine) 2050 unit 2,050 unit PRN Q6HRS PRN IV FOR UFH LEVEL LESS THAN 0.2 Last administered on 07/21/16 04:24; Start 07/20/16 at 19:45 Heparin Sodium/ Dextrose 500 ml @ 19.4 mls/hr CONT PRN IV SEE I/O RECORD; Start 07/20/16 at 19:45; Stop 07/21/16 at 16:24; Status DC Heparin Sodium (Porcine) (Heparin Sodium) 2,050 unit PRN Q6HRS PRN IV FOR UFH LEVEL LESS THAN 0.2; Start 07/20/16 at 19:45; Status UNV Atorvastatin Calcium (Lipitor) 40 mg QHS PO Last administered on 07/22/16 20:33 ; Start 07/21/16 at 21:00 Iodixanol (Visipaque 320) 200 ml STK-MED ONCE .ROUTE ; Start 07/20/16 at 14:00; Stop 07/21/16 at 08:26; Status DC Zolpidem Tartrate (Ambien) 5 mg PRN QHS PRN PO INSOMNIA, MAY REPEAT IN 1HR; Start 07/21/16 at 15:30 Metoprolol Tartrate 25 mg 25 mg 1X ONCE PO ; Start 07/22/16 at 06:00; Stop at 06:02; Status DC Cefazolin Sodium/ Dextrose 50 ml @ 100 mls/hr 1X ONCE IV ; Start 07/22/16 at 06 :00; Stop 07/22/16 at 06:29; Status DC Heparin Sodium/ Dextrose 500 ml @ 0 mls/hr CONT PRN IV SEE I/O RECORD Last administered on 07/23/16 09:04; Start 07/21/16 at 16:30; Stop 07/24/16 at 10:00 Lidocaine HCl 2 ml 2 ml 1X PRN PRN ID IV START; Start 07/25/16 at 06:00; Stop 07/26/16 at 05:59; Status Cancel Lactated Ringer's (Iv Lactated Ringers) 1,000 ml @ 0 mls/hr Q0M IV ; Start 01/31 at 06:00; Stop 07/25/16 at 17:59 Fentanyl Citrate (Fentanyl 2ml Vial) 25 mcg PRN Q5MIN PRN IV Acute Pain; Start 07/22/16 at 09:15; Stop 07/23/16 at 09:14; Status DC Morphine Sulfate 2 mg PRN Q10MIN PRN IV Mild Pain; Start 07/22/16 at 09:15; Stop 07/23/16 at 09:14; Status DC Hydromorphone HCl (Dilaudid) 0.4 mg PRN Q10MIN PRN IV Moderate to severe pain; Start 07/22/16 at 09:15; Stop 07/23/16 at 09:14; Status DC Ondansetron HCl (Zofran) 4 mg PRN Q6HRS PRN IV Nausea, 1st Choice; Start at 09:15; Stop 07/23/16 at 09:14; Status DC Prochlorperazine Edisylate (Compazine) 5 mg PRN Q6HRS PRN IV Nausea/Vomiting, 2nd Choice; Start 07/22/16 at 09:15; Stop 07/23/16 at 09:14; Status DC Ondansetron HCl (Zofran) 4 mg PRN Q6HRS PRN IV NAUSEA/VOMITING; Start 07/25/16 at 07:00; Stop 07/26/16 at 06:59 Fentanyl Citrate (Fentanyl 2ml Vial) 25 mcg PRN Q5MIN PRN IV MILD PAIN; Start 07/25/16 at 07:00; Stop 07/26/16 at 06:59 Fentanyl Citrate (Fentanyl 2ml Vial) 50 mcg PRN Q5MIN PRN IV MODERATE PAIN; Start 07/25/16 at 07:00; Stop 07/26/16 at 06:59 Morphine Sulfate 1 mg 1 mg PRN Q10MIN PRN IV SEVERE PAIN; Start 07/25/16 at 07: 00; Stop 07/26/16 at 06:59 Lactated Ringer's (Iv Lactated Ringers) 1,000 ml @ 0 mls/hr Q0M IV ; Start 01/31 at 07:00; Stop 07/25/16 at 18:59 Lidocaine HCl 2 ml PRN 1X PRN ID PRIOR TO IV START; Start 07/25/16 at 07:00; Stop 07/26/16 at 06:59 Hydromorphone HCl (Dilaudid) 0.5 mg PRN Q10MIN PRN IV SEV PAIN, Second choice; Start 07/25/16 at 07:00; Stop 07/26/16 at 06:59 Prochlorperazine Edisylate 5 mg 5 mg PACU PRN PRN IV NAUSEA, MRX1; Start at 07:00; Stop 07/26/16 at 06:59 Cefazolin Sodium/ Dextrose (Ancef 2gm Premix) 50 ml @ 100 mls/hr 1X ONCE IV ; Start 07/25/16 at 06:00; Stop 07/25/16 at 06:29 Metoprolol Tartrate (Lopressor) 25 mg 1X ONCE PO ; Start 07/25/16 at 06:00; Stop 07/25/16 at 06:01 Metoprolol Tartrate (Lopressor) 2.5 mg 1X ONCE IVP Last administered on 16:30; Start 07/22/16 at 16:30; Stop 07/22/16 at 16:31; Status DC Digoxin (Lanoxin) 250 mcg 1X ONCE IV ; Start 07/22/16 at 18:30; Stop 07/22/16 at 18:42; Status DC Digoxin (Lanoxin) 500 mcg 1X ONCE IV Last administered on 07/22/16 18:47; Start 07/22/16 at 18:45; Stop 07/22/16 at 18:46; Status DC Metoprolol Tartrate (Lopressor) 75 mg BID PO Last administered on 07/23/16 10: 44; Start 07/22/16 at 21:00 Active Scripts Active Reported Amlodipine Besylate 5 Mg Tablet 5 Mg PO DAILY Pradaxa (Dabigatran Etexilate Mesylate) 150 Mg Capsule 1 Cap PO BID Metoprolol Succinate ( Xl ) (Metoprolol Succinate) 100 Mg Tab.er.24h 1 Tab PO DAILY Vitals/I & O Vital Sign - Last 24 Hours 07/22/16 07/22/16 07/22/16 07/22/16 14:58 16:30 18:47 19:30 Temp 98.1 98.1 Pulse 111 111 152 Resp 18 B/P 108/70 108/70 119/66 Pulse Ox 95 O2 Delivery Room Air Room Air 07/22/16 07/22/16 07/22/16 07/23/16 19:44 20:33 23:14 03:13 Temp 97.9 97.9 97.6 97.9 97.9 97.6 Pulse 96 115 76 85 Resp 20 18 18 B/P 122/66 122/61 112/65 106/68 Pulse Ox 94 96 98 O2 Delivery Room Air Room Air Room Air 07/23/16 07/23/16 07:50 10:44 Temp 98.0 98.0 Pulse 88 91 Resp 20 B/P 116/72 126/83 Pulse Ox 97 O2 Delivery Room Air Intake and Output 07/22/16 07/22/16 07/23/16 15:00 23:00 07:00 Intake Total 400 ml 849 ml Output Total 300 ml 375 ml Balance -300 ml 400 ml 474 ml CHRISTIAN WALSH MD Jul 23, 2016 11:58
[2016-07-23] MEDS ORDERED: NITROGLYCERIN SUBLINGUAL 0.4 MG BOTTLE OF 25. SL PRN (12:00)
[2016-07-23 14:37] VITALS: BP 131/70
[2016-07-23 19:00] VITALS: BP 119/71
[2016-07-23] MEDS: ATORVASTATIN CALCIUM 40 MG TABLET. PO SCH (21:23)
[2016-07-23] MEDS: ALPRAZolam 0.25 MG TABLET PO PRN (21:23)
[2016-07-23 23:00] VITALS: BP 130/72
--- NOTE | 2016-07-23 23:45 | PDOC ---
PROGRESS NOTES Subjective Subjective Denied any chest pain Objective Objective Vital Signs Date Time Temp Pulse Resp B/P Pulse Ox O2 Delivery O2 Flow Rate FiO2 07/23/16 23:00 97.7 81 16 130/72 96 Room Air 97.7 Intake and Output 07/23/16 07:00 Intake Total 1249 ml Output Total 675 ml Balance 574 ml Intake Oral 900 ml IV Total 349 ml Output Urine Total 675 ml # Voids 2 Physical Exam Abdomen: Soft, No tenderness Heart: Normal S1, Normal S2, Other (irregular) Extremities: No edema General: Alert, Oriented X3, No acute distress HEENT: Atraumatic, PERRLA Lungs: Clear to auscultation, Normal air movement MUSCULOSKELETAL: No deformity Neuro: Normal gait, Normal speech, Strength at 5/5 X4 ext, Normal tone, Sensation intact, Cranial nerves 3-12 NL Psych/Mental Status: Mental status NL Skin: No significant lesion Assessment Assessment 1. Acute myocardial infarction: 3 vessel disease on cath 07/20/2016 for CABG on 07/25/2016 - was treated with Pradaxa until 07/19/2016 (evening) continue heparin and NTG gtts for now pre-op evaluation in progress 2. atrial fib OAC with Pradaxa (last dose - 07/19/2016) now on heparin rate controlled with beta-blockers 3. ischemic cardiomyopathy LVEF mildly depressed @ 45% continue BB, holding ACEI in anticipation of CTS no evidence of CHF 4. HTN controlled today with increase BB dose and IV hydralazine off ACEI in anticipation of CTS 5. HLD LDLs = 156 increase to high dose statin therapy Plan Plan of Care Problems Medical Problems: (1) Chest pain Status: Acute (2) STEMI (ST elevation myocardial infarction) Status: Acute Comment Review of Relevant I have reviewed the following items leonidas (where applicable) has been applied. Labs Laboratory Tests Test 07/23/16 00:45 07/23/16 07:11 07/23/16 13:00 Heparin Anti-Xa Act, Unfractionated 0.38IU/mL (0.30-0.70) 0.46IU/mL (0.30-0.70) 0.43IU/mL (0.30-0.70) Medications Current Medications Cefazolin Sodium/ Dextrose (Ancef 2gm Premix) 50 ml @ 100 mls/hr 1X ONCE IV ; Start 07/25/16 at 06:00; Stop 07/25/16 at 06:29 Fentanyl Citrate (Fentanyl 2ml Vial) 25 mcg PRN Q5MIN PRN IV MILD PAIN; Start 07/25/16 at 07:00; Stop 07/26/16 at 06:59 Fentanyl Citrate (Fentanyl 2ml Vial) 50 mcg PRN Q5MIN PRN IV MODERATE PAIN; Start 07/25/16 at 07:00; Stop 07/26/16 at 06:59 Hydromorphone HCl (Dilaudid) 0.5 mg PRN Q10MIN PRN IV SEV PAIN, Second choice; Start 07/25/16 at 07:00; Stop 07/26/16 at 06:59 Lactated Ringer's (Iv Lactated Ringers) 1,000 ml @ 0 mls/hr Q0M IV ; Start 01/31 at 06:00; Stop 07/25/16 at 17:59 Lactated Ringer's (Iv Lactated Ringers) 1,000 ml @ 0 mls/hr Q0M IV ; Start 01/31 at 07:00; Stop 07/25/16 at 18:59; Status Cancel Lidocaine HCl 2 ml PRN 1X PRN ID PRIOR TO IV START; Start 07/25/16 at 07:00; Stop 07/26/16 at 06:59 Lidocaine HCl 2 ml 2 ml 1X PRN PRN ID IV START; Start 07/25/16 at 06:00; Stop 07/26/16 at 05:59; Status Cancel Metoprolol Tartrate (Lopressor) 25 mg 1X ONCE PO ; Start 07/25/16 at 06:00; Stop 07/25/16 at 06:01 Morphine Sulfate 1 mg 1 mg PRN Q10MIN PRN IV SEVERE PAIN; Start 07/25/16 at 07: 00; Stop 07/26/16 at 06:59 Nitroglycerin (Nitrostat) 0.4 mg PRN Q5MIN PRN SL CHEST PAIN; Start 07/23/16 at 12:00; Status UNV Ondansetron HCl (Zofran) 4 mg PRN Q6HRS PRN IV NAUSEA/VOMITING; Start 07/25/16 at 07:00; Stop 07/26/16 at 06:59 Prochlorperazine Edisylate 5 mg 5 mg PACU PRN PRN IV NAUSEA, MRX1; Start at 07:00; Stop 07/26/16 at 06:59 Vitals/I & O Vital Sign - Last 24 Hours 07/23/16 07/23/16 07/23/16 07/23/16 03:13 07:50 08:00 10:44 Temp 97.6 98.0 97.6 98.0 Pulse 85 88 91 Resp 18 20 B/P 106/68 116/72 126/83 Pulse Ox 98 97 O2 Delivery Room Air Room Air Room Air 07/23/16 07/23/16 07/23/16 07/23/16 11:00 14:37 19:00 19:51 Temp 98.4 98.0 97.9 98.4 98.0 97.9 Pulse 91 98 102 Resp 18 B/P 126/83 131/70 119/71 Pulse Ox 97 96 96 O2 Delivery Room Air Room Air Room Air 07/23/16 07/23/16 21:23 23:00 Temp 97.7 97.7 Pulse 102 81 Resp 16 B/P 119/71 130/72 Pulse Ox 96 O2 Delivery Room Air Intake and Output 07/22/16 07/22/16 07/23/16 15:00 23:00 07:00 Intake Total 400 ml 849 ml Output Total 300 ml 375 ml Balance -300 ml 400 ml 474 ml ANATOLIY ANGELO MD Jul 23, 2016 23:45
[2016-07-24] MEDS: HEPARIN 25,000UTS/500ML PREMIX 500 ML IV PRN (01:40)
[2016-07-24 03:00] VITALS: BP 135/87
[2016-07-24 07:22] VITALS: BP 125/82
[2016-07-24] MEDS: DOCUSATE SODIUM 100 MG CAPSULE. PO SCH (09:46)
[2016-07-24] MEDS: METOPROLOL TART IMMED RELEASE 25 MG TABLET. PO SCH ×2 (09:51→21:30)
[2016-07-24 10:53] VITALS: BP 122/73
--- NOTE | 2016-07-24 11:22 | PDOC ---
PROGRESS NOTES Subjective Subjective Denied any chest pain Objective Objective Vital Signs Date Time Temp Pulse Resp B/P Pulse Ox O2 Delivery O2 Flow Rate FiO2 07/24/16 10:53 97.5 77 18 122/73 97 Room Air 97.5 Intake and Output 07/24/16 07:00 Intake Total 316 ml Output Total 250 ml Balance 66 ml IV Total 316 ml Output Urine Total 250 ml # Voids 3 Physical Exam Abdomen: Soft, No tenderness Heart: Normal S1, Normal S2, Other (irregular) Extremities: No edema General: Alert, Oriented X3, No acute distress HEENT: Atraumatic, PERRLA Lungs: Clear to auscultation, Normal air movement MUSCULOSKELETAL: No deformity Neuro: Normal gait, Normal speech, Strength at 5/5 X4 ext, Normal tone, Sensation intact, Cranial nerves 3-12 NL Psych/Mental Status: Mental status NL Skin: No significant lesion Assessment Assessment 1. Acute myocardial infarction: 3 vessel disease on cath 07/20/2016 CTS following - plan for CABG tomorrow 2. atrial fib OAC with Pradaxa (last dose - 07/19/2016) continue heparin and BB 3. ischemic cardiomyopathy LVEF mildly depressed @ 45% continue BB, holding ACEI in anticipation of CTS no evidence of CHF 4. HTN controlled 5. HLD statins Plan Plan of Care Problems Medical Problems: (1) Chest pain Status: Acute (2) STEMI (ST elevation myocardial infarction) Status: Acute Comment Review of Relevant I have reviewed the following items leonidas (where applicable) has been applied. Labs Laboratory Tests Test 07/23/16 13:00 Heparin Anti-Xa Act, Unfractionated 0.43IU/mL (0.30-0.70) Medications Current Medications Cefazolin Sodium/ Dextrose (Ancef 2gm Premix) 50 ml @ 100 mls/hr 1X ONCE IV ; Start 07/25/16 at 06:00; Stop 07/25/16 at 06:29 Fentanyl Citrate (Fentanyl 2ml Vial) 25 mcg PRN Q5MIN PRN IV MILD PAIN; Start 07/25/16 at 07:00; Stop 07/26/16 at 06:59 Fentanyl Citrate (Fentanyl 2ml Vial) 50 mcg PRN Q5MIN PRN IV MODERATE PAIN; Start 07/25/16 at 07:00; Stop 07/26/16 at 06:59 Heparin Sodium (Porcine) 23957 unit/Lactated Ringer's 1,020 ml @ 1,020 mls/hr 1X PERIOP ONCE IRR ; Start 07/25/16 at 06:00; Stop 07/25/16 at 06:59 Hydromorphone HCl (Dilaudid) 0.5 mg PRN Q10MIN PRN IV SEV PAIN, Second choice; Start 07/25/16 at 07:00; Stop 07/26/16 at 06:59 Lactated Ringer's (Iv Lactated Ringers) 1,000 ml @ 0 mls/hr Q0M IV ; Start 01/31 at 06:00; Stop 07/25/16 at 17:59 Lactated Ringer's (Iv Lactated Ringers) 1,000 ml @ 0 mls/hr Q0M IV ; Start 01/31 at 07:00; Stop 07/25/16 at 18:59; Status Cancel Lidocaine HCl 2 ml PRN 1X PRN ID PRIOR TO IV START; Start 07/25/16 at 07:00; Stop 07/26/16 at 06:59 Lidocaine HCl 2 ml 2 ml 1X PRN PRN ID IV START; Start 07/25/16 at 06:00; Stop 07/26/16 at 05:59; Status Cancel Metoprolol Tartrate (Lopressor) 25 mg 1X ONCE PO ; Start 07/25/16 at 06:00; Stop 07/25/16 at 06:01 Morphine Sulfate 1 mg 1 mg PRN Q10MIN PRN IV SEVERE PAIN; Start 07/25/16 at 07: 00; Stop 07/26/16 at 06:59 Nitroglycerin 0.4 mg 0.4 mg PRN Q5MIN PRN SL CHEST PAIN; Start 07/23/16 at 12:00 ; Status UNV Ondansetron HCl (Zofran) 4 mg PRN Q6HRS PRN IV NAUSEA/VOMITING; Start 07/25/16 at 07:00; Stop 07/26/16 at 06:59 Potassium Chloride 70 meq/ Sodium Bicarbonate 12.5 meq/Lidocaine HCl 24 ml/ Parenteral Electrolytes 571.5 ml @ 571.5 mls/ hr 1X PERIOP ONCE IRR ; Start at 06:00; Stop 07/25/16 at 06:59 Potassium Chloride/Sodium Bicarbonate/ Parenteral Electrolytes (Isolyte S) 520 ml @ 520 mls/hr 1X PERIOP ONCE IRR ; Start 07/25/16 at 06:00; Stop 07/25/16 at 06:59 Prochlorperazine Edisylate 5 mg 5 mg PACU PRN PRN IV NAUSEA, MRX1; Start at 07:00; Stop 07/26/16 at 06:59 Vitals/I & O Vital Sign - Last 24 Hours 07/23/16 07/23/16 07/23/16 07/23/16 14:37 19:00 19:51 21:23 Temp 98.0 97.9 98.0 97.9 Pulse 98 102 102 Resp 18 18 B/P 131/70 119/71 119/71 Pulse Ox 96 96 O2 Delivery Room Air Room Air Room Air 07/23/16 07/24/16 07/24/16 07/24/16 23:00 03:00 07:22 09:51 Temp 97.7 97.5 97.8 97.7 97.5 97.8 Pulse 81 74 67 96 Resp 16 16 16 B/P 130/72 135/87 125/82 122/73 Pulse Ox 96 95 96 O2 Delivery Room Air Room Air Room Air 07/24/16 10:53 Temp 97.5 97.5 Pulse 77 Resp 18 B/P 122/73 Pulse Ox 97 O2 Delivery Room Air Intake and Output 07/23/16 07/23/16 07/24/16 15:00 23:00 07:00 Intake Total 316 ml Output Total 250 ml Balance -250 ml 316 ml ANATOLIY ANGELO MD Jul 24, 2016 11:22
--- NOTE | 2016-07-24 12:40 | PDOC ---
PROGRESS NOTES Chief Complaint Chief Complaint 1. 3 vessel dse by cardiac cath (07/20/16) 2. UA on presentation 3. History of hypertension. Hypertensive emergency present on admission. 4. Atrial fibrillation, rate controlled, on Pradaxa. 5. Obesity. History of Present Illness History of Present Illness Planned for CABG monday Heparin gtt running Off nitro gtt - no CP Tylenol on stand by for headaches NO acute events overnight Needs to stay over the weekend as dw TCVS PLAN: CABG monday Heparin gtt to cont Nitro SL prn dw RN and pt and Vitals Vitals Vital Signs Date Time Temp Pulse Resp B/P Pulse Ox O2 Delivery O2 Flow Rate FiO2 07/24/16 10:53 97.5 77 18 122/73 97 Room Air 97.5 Physical Exam General: Alert, Oriented X3, No acute distress Heart: Normal S1, Normal S2, Other (irregular) Abdomen: Soft, No tenderness Extremities: No edema Skin: No significant lesion Labs LABS Laboratory Tests Test 07/23/16 13:00 Heparin Anti-Xa Act, Unfractionated 0.43IU/mL (0.30-0.70) Review of Systems Review of Systems no cp, soa, n/v/d Assessment and Plan Assessmemt and Plan Problems Medical Problems: (1) Chest pain Status: Acute (2) STEMI (ST elevation myocardial infarction) Status: Acute Problems: Comment Review of Relevant I have reviewed the following items leonidas (where applicable) has been applied. Labs Laboratory Tests Test 07/22/16 16:30 07/23/16 00:45 07/23/16 07:11 07/23/16 13:00 Activated Partial Thromboplast Time 51SEC (24-38) Heparin Anti-Xa Act, Unfractionated < 0.10IU/mL (0.30-0.70) 0.38IU/mL (0.30-0.70) 0.46IU/mL (0.30-0.70) 0.43IU/mL (0.30-0.70) Creatine Kinase 203U/L (39-308) Creatine Kinase MB (Mass) 4.3ng/mL (0.0-3.6) Creatine Kinase MB Relative Index 2.1% (0-4) Troponin I Quantitative 11.272ng/mL (0.000-0.055) Laboratory Tests Test 07/23/16 13:00 Heparin Anti-Xa Act, Unfractionated 0.43IU/mL (0.30-0.70) Medications Current Medications Nitroglycerin 0.4 mg 0.4 mg PRN Q5MIN PRN SL CP RATING > 1/10; Start 07/20/16 at 09:45; Stop 07/20/16 at 15:05; Status DC Nitroglycerin/ Dextrose (Nitroglycerin Drip) 250 ml @ 3 mls/hr 1X ONCE IV Last administered on 07/20/16 10:02; Start 07/20/16 at 10:30; Stop 07/23/16 at 21: 49; Status DC Morphine Sulfate 2 mg PRN Q15MIN PRN IV/SQ PAIN GREATER THAN 3/10; Start at 09:45; Stop 07/21/16 at 09:44; Status DC Ondansetron HCl (Zofran) 4 mg PRN Q8HRS PRN IV NAUSEA/VOMITING; Start 07/20/16 at 12:30; Stop 07/20/16 at 13:36; Status DC Morphine Sulfate 2 mg 2 mg PRN Q2HR PRN IV PAIN; Start 07/20/16 at 12:30; Stop 07/21/16 at 12:29; Status DC Heparin Sodium/ Dextrose 500 ml @ 0 mls/hr CONT PRN IV . Last administered on 10:32; Start 07/20/16 at 13:00; Stop 07/21/16 at 14:50; Status DC Metoprolol Tartrate (Lopressor) 5 mg Q6HRS IVP ; Start 07/20/16 at 13:00; Stop at 14:53; Status DC Aspirin (Ecotrin) 325 mg DAILYWBKFT PO Last administered on 07/21/16 08:11; Start 07/20/16 at 13:00; Stop 07/21/16 at 17:20; Status DC Ondansetron HCl (Zofran) 4 mg PRN Q6HRS PRN IV NAUSEA/VOMITING; Start 07/20/16 at 13:35 Acetaminophen (Tylenol) 500 mg PRN Q6HRS PRN PO MILD PAIN / TEMP; Start at 13:45 Docusate Sodium (Colace) 100 mg DAILY PO Last administered on 07/24/16 09:46; Start 07/20/16 at 15:00 Iohexol 100 ml 100 ml STK-MED ONCE .ROUTE ; Start 07/20/16 at 12:40; Stop at 13:44; Status DC Heparin Sodium/ Sodium Chloride 1,000 ml @ As Directed STK-MED ONCE .ROUTE ; Start 07/20/16 at 12:41; Stop 07/20/16 at 13:44; Status DC Lidocaine HCl 20 ml STK-MED ONCE .ROUTE ; Start 07/20/16 at 12:41; Stop 07/20/16 at 13:44; Status DC Fentanyl Citrate (Fentanyl 2ml Vial) 100 mcg STK-MED ONCE .ROUTE ; Start at 13:42; Stop 07/20/16 at 13:45; Status DC Midazolam HCl (Versed) 2 mg STK-MED ONCE .ROUTE ; Start 07/20/16 at 13:42; Stop 07/20/16 at 13:45; Status DC Heparin Sodium/ Sodium Chloride 1,000 unit 1X ONCE IART Last administered on 14:29; Start 07/20/16 at 14:00; Stop 07/20/16 at 14:01; Status DC Heparin Sodium/ Sodium Chloride 1,000 unit 1X ONCE IART Last administered on 14:29; Start 07/20/16 at 14:00; Stop 07/20/16 at 14:01; Status DC Midazolam HCl (Versed) 2 mg 1X ONCE IV Last administered on 07/20/16 14:28; Start 07/20/16 at 14:00; Stop 07/20/16 at 14:01; Status DC Fentanyl Citrate (Fentanyl 2ml Vial) 100 mcg 1X ONCE IV Last administered on 14:28; Start 07/20/16 at 14:00; Stop 07/20/16 at 14:01; Status DC Iohexol (Omnipaque 300 Mg/ml) 100 ml 1X ONCE IART Last administered on 14:29; Start 07/20/16 at 14:00; Stop 07/20/16 at 14:01; Status DC Lidocaine HCl 20 ml 1X ONCE IJ Last administered on 07/20/16 14:29; Start 07/20 at 14:00; Stop 07/20/16 at 14:01; Status DC Midazolam HCl (Versed) 2 mg STK-MED ONCE .ROUTE ; Start 07/20/16 at 14:15; Stop 07/20/16 at 14:16; Status DC Sodium Chloride 3 ml 3 ml QSHIFT PRN IV AFTER MEDS AND BLOOD DRAWS; Start at 14:45 Sodium Chloride (Iv Sodium Chloride 0.9% 1000ml Bag) 1,000 ml @ 60 mls/hr [id number] IV Last administered on 07/20/16 14:44; Start 07/20/16 at 14:44; Stop at 00:43; Status DC Metoprolol Tartrate (Lopressor) 12.5 mg BID PO ; Start 07/20/16 at 21:00; Stop at 21:00; Status DC Lisinopril (Prinivil) 5 mg DAILY PO Last administered on 07/20/16 16:25; Start 07/20/16 at 15:00; Stop 07/20/16 at 17:21; Status DC Atorvastatin Calcium (Lipitor) 20 mg QHS PO Last administered on 07/20/16 20:33 ; Start 07/20/16 at 21:00; Stop 07/21/16 at 08:11; Status DC Nitroglycerin (Nitrostat) 0.4 mg PRN Q5MIN PRN SL CHEST PAIN; Start 07/20/16 at 14:45 Hydralazine HCl (Apresoline) 10 mg PRN Q4HRS PRN IVP ELEVATED BP, SEE COMMENTS Last administered on 07/20/16 17:24; Start 07/20/16 at 17:15 Metoprolol Tartrate (Lopressor) 50 mg BID PO Last administered on 07/22/16 08: 31; Start 07/20/16 at 21:00; Stop 07/22/16 at 19:03; Status DC Alprazolam (Xanax) 0.25 mg PRN Q8HRS PRN PO ANXIETY / AGITATION Last administered on 07/23/16 21:23; Start 07/20/16 at 17:30 Heparin Sodium (Porcine) 2050 unit 2,050 unit PRN Q6HRS PRN IV FOR UFH LEVEL LESS THAN 0.2 Last administered on 07/21/16 04:24; Start 07/20/16 at 19:45 Heparin Sodium/ Dextrose 500 ml @ 19.4 mls/hr CONT PRN IV SEE I/O RECORD; Start 07/20/16 at 19:45; Stop 07/21/16 at 16:24; Status DC Heparin Sodium (Porcine) (Heparin Sodium) 2,050 unit PRN Q6HRS PRN IV FOR UFH LEVEL LESS THAN 0.2; Start 07/20/16 at 19:45; Status UNV Atorvastatin Calcium (Lipitor) 40 mg QHS PO Last administered on 07/23/16 21:23 ; Start 07/21/16 at 21:00 Iodixanol (Visipaque 320) 200 ml STK-MED ONCE .ROUTE ; Start 07/20/16 at 14:00; Stop 07/21/16 at 08:26; Status DC Zolpidem Tartrate (Ambien) 5 mg PRN QHS PRN PO INSOMNIA, MAY REPEAT IN 1HR; Start 07/21/16 at 15:30 Metoprolol Tartrate 25 mg 25 mg 1X ONCE PO ; Start 07/22/16 at 06:00; Stop at 06:02; Status DC Cefazolin Sodium/ Dextrose 50 ml @ 100 mls/hr 1X ONCE IV ; Start 07/22/16 at 06 :00; Stop 07/22/16 at 06:29; Status DC Heparin Sodium/ Dextrose 500 ml @ 0 mls/hr CONT PRN IV SEE I/O RECORD Last administered on 07/24/16 01:40; Start 07/21/16 at 16:30; Stop 07/24/16 at 10:00; Status DC Lidocaine HCl 2 ml 2 ml 1X PRN PRN ID IV START; Start 07/25/16 at 06:00; Stop 07/26/16 at 05:59; Status Cancel Lactated Ringer's (Iv Lactated Ringers) 1,000 ml @ 0 mls/hr Q0M IV ; Start 01/31 at 06:00; Stop 07/25/16 at 17:59 Fentanyl Citrate (Fentanyl 2ml Vial) 25 mcg PRN Q5MIN PRN IV Acute Pain; Start 07/22/16 at 09:15; Stop 07/23/16 at 09:14; Status DC Morphine Sulfate 2 mg PRN Q10MIN PRN IV Mild Pain; Start 07/22/16 at 09:15; Stop 07/23/16 at 09:14; Status DC Hydromorphone HCl (Dilaudid) 0.4 mg PRN Q10MIN PRN IV Moderate to severe pain; Start 07/22/16 at 09:15; Stop 07/23/16 at 09:14; Status DC Ondansetron HCl (Zofran) 4 mg PRN Q6HRS PRN IV Nausea, 1st Choice; Start at 09:15; Stop 07/23/16 at 09:14; Status DC Prochlorperazine Edisylate (Compazine) 5 mg PRN Q6HRS PRN IV Nausea/Vomiting, 2nd Choice; Start 07/22/16 at 09:15; Stop 07/23/16 at 09:14; Status DC Ondansetron HCl (Zofran) 4 mg PRN Q6HRS PRN IV NAUSEA/VOMITING; Start 07/25/16 at 07:00; Stop 07/26/16 at 06:59 Fentanyl Citrate (Fentanyl 2ml Vial) 25 mcg PRN Q5MIN PRN IV MILD PAIN; Start 07/25/16 at 07:00; Stop 07/26/16 at 06:59 Fentanyl Citrate (Fentanyl 2ml Vial) 50 mcg PRN Q5MIN PRN IV MODERATE PAIN; Start 07/25/16 at 07:00; Stop 07/26/16 at 06:59 Morphine Sulfate 1 mg 1 mg PRN Q10MIN PRN IV SEVERE PAIN; Start 07/25/16 at 07: 00; Stop 07/26/16 at 06:59 Lactated Ringer's (Iv Lactated Ringers) 1,000 ml @ 0 mls/hr Q0M IV ; Start 01/31 at 07:00; Stop 07/25/16 at 18:59; Status Cancel Lidocaine HCl 2 ml PRN 1X PRN ID PRIOR TO IV START; Start 07/25/16 at 07:00; Stop 07/26/16 at 06:59 Hydromorphone HCl (Dilaudid) 0.5 mg PRN Q10MIN PRN IV SEV PAIN, Second choice; Start 07/25/16 at 07:00; Stop 07/26/16 at 06:59 Prochlorperazine Edisylate 5 mg 5 mg PACU PRN PRN IV NAUSEA, MRX1; Start at 07:00; Stop 07/26/16 at 06:59 Cefazolin Sodium/ Dextrose (Ancef 2gm Premix) 50 ml @ 100 mls/hr 1X ONCE IV ; Start 07/25/16 at 06:00; Stop 07/25/16 at 06:29 Metoprolol Tartrate (Lopressor) 25 mg 1X ONCE PO ; Start 07/25/16 at 06:00; Stop 07/25/16 at 06:01 Metoprolol Tartrate (Lopressor) 2.5 mg 1X ONCE IVP Last administered on 16:30; Start 07/22/16 at 16:30; Stop 07/22/16 at 16:31; Status DC Digoxin (Lanoxin) 250 mcg 1X ONCE IV ; Start 07/22/16 at 18:30; Stop 07/22/16 at 18:42; Status DC Digoxin (Lanoxin) 500 mcg 1X ONCE IV Last administered on 07/22/16 18:47; Start 07/22/16 at 18:45; Stop 07/22/16 at 18:46; Status DC Metoprolol Tartrate (Lopressor) 75 mg BID PO Last administered on 07/24/16 09: 51; Start 07/22/16 at 21:00 Nitroglycerin 0.4 mg 0.4 mg PRN Q5MIN PRN SL CHEST PAIN; Start 07/23/16 at 12:00 ; Status UNV Heparin Sodium (Porcine) 80901 unit/Lactated Ringer's 1,020 ml @ 1,020 mls/hr 1X PERIOP ONCE IRR ; Start 07/25/16 at 06:00; Stop 07/25/16 at 06:59 Potassium Chloride 70 meq/ Sodium Bicarbonate 12.5 meq/Lidocaine HCl 24 ml/ Parenteral Electrolytes 571.5 ml @ 571.5 mls/ hr 1X PERIOP ONCE IRR ; Start at 06:00; Stop 07/25/16 at 06:59 Potassium Chloride/Sodium Bicarbonate/ Parenteral Electrolytes (Isolyte S) 520 ml @ 520 mls/hr 1X PERIOP ONCE IRR ; Start 07/25/16 at 06:00; Stop 07/25/16 at 06:59 Active Scripts Active Reported Amlodipine Besylate 5 Mg Tablet 5 Mg PO DAILY Pradaxa (Dabigatran Etexilate Mesylate) 150 Mg Capsule 1 Cap PO BID Metoprolol Succinate ( Xl ) (Metoprolol Succinate) 100 Mg Tab.er.24h 1 Tab PO DAILY Vitals/I & O Vital Sign - Last 24 Hours 07/23/16 07/23/16 07/23/16 07/23/16 14:37 19:00 19:51 21:23 Temp 98.0 97.9 98.0 97.9 Pulse 98 102 102 Resp 18 18 B/P 131/70 119/71 119/71 Pulse Ox 96 96 O2 Delivery Room Air Room Air Room Air 07/23/16 07/24/16 07/24/16 07/24/16 23:00 03:00 07:22 09:51 Temp 97.7 97.5 97.8 97.7 97.5 97.8 Pulse 81 74 67 96 Resp 16 16 16 B/P 130/72 135/87 125/82 122/73 Pulse Ox 96 95 96 O2 Delivery Room Air Room Air Room Air 07/24/16 10:53 Temp 97.5 97.5 Pulse 77 Resp 18 B/P 122/73 Pulse Ox 97 O2 Delivery Room Air Intake and Output 07/23/16 07/23/16 07/24/16 15:00 23:00 07:00 Intake Total 316 ml Output Total 250 ml Balance -250 ml 316 ml CHRISTIAN WALSH MD Jul 24, 2016 12:40
[2016-07-24 15:55] VITALS: BP 124/70
[2016-07-24 19:40] VITALS: BP 124/81
[2016-07-24] MEDS: ATORVASTATIN CALCIUM 40 MG TABLET. PO SCH (21:29)
[2016-07-24] MEDS: ALPRAZolam 0.25 MG TABLET PO PRN (21:34)
[2016-07-24 23:53] VITALS: BP 109/66
[2016-07-25] VITALS (10 sets, daily range): BP systolic 96–168; BP diastolic 72–105
[2016-07-25 04:58] LABS: INR 1.1 (0.8-1.1); PROTHROMBIN TIME PATIENT 13.6 SEC (11.7-14.0)
--- NOTE | 2016-07-25 05:00 | EKG ---
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
[2016-07-25] MEDS ORDERED: HEPARIN 20,000 UNIT in IV RINGERS,LACTATED 1000ML 1,000 ML IRR ONE (06:00)
[2016-07-25] MEDS ORDERED: POTASSIUM CHLORIDE 70 MEQ, SODIUM BICARBONATE VIAL 12.5 MEQ, LIDOCAINE 2% 24 ML in IV E... IRR ONE (06:00)
[2016-07-25] MEDS ORDERED: METOPROLOL TART IMMED RELEASE 25 MG TABLET. PO ONE (06:00)
[2016-07-25] MEDS ORDERED: IV RINGERS,LACTATED 1000ML 1,000 ML IV SCH ×2 (06:00→07:00)
[2016-07-25] MEDS ORDERED: LIDOCAINE 1% 1 ML SYRINGE. ID PRN ×2 (06:00→07:00)
[2016-07-25] MEDS ORDERED: POTASSIUM CHLORIDE 15 MEQ, SODIUM BICARBONATE VIAL 12.5 MEQ in IV ELECTROLYTE-S (PH 7.4... IRR ONE (06:00)
[2016-07-25] MEDS ORDERED: ETOMIDATE 20 MG/10 ML VIAL. IV ONE (06:08)
[2016-07-25] MEDS ORDERED: AMINOCAPROIC ACID 5,000 MG/20 ML VIAL. IV ONE ×2 (06:08→16:20)
[2016-07-25] MEDS ORDERED: PHENYLEPHRINE 10 MG/ML VIAL. ONE (06:08)
[2016-07-25] MEDS ORDERED: HEPARIN for IV BOLUS 10,000 UNIT/10 ML VIAL. ONE ×3 (06:10→16:20)
[2016-07-25] MEDS ORDERED: ROCURONIUM 100 MG/10 ML VIAL. ONE ×4 (06:11→13:57)
[2016-07-25] MEDS ORDERED: MORPHINE SULFATE 4 MG/ML DISP.SYRIN. ONE (06:59)
[2016-07-25] MEDS ORDERED: ONDANSETRON PF 4 MG/2 ML VIAL. IV PRN (07:00)
[2016-07-25] MEDS ORDERED: MORPHINE SULFATE 2 MG/ML DISP.SYRIN. IV PRN (07:00)
[2016-07-25] MEDS ORDERED: PROCHLORPERAZINE 10 MG/2 ML VIAL. IV PRN (07:00)
[2016-07-25] MEDS ORDERED: fentaNYL PF VIAL 100 MCG/2 ML VIAL IV PRN ×2 (07:00)
[2016-07-25] MEDS ORDERED: HYDROmorphone 2 MG/ML VIAL IV PRN (07:00)
[2016-07-25] MEDS ORDERED: PAPAVERINE 60 MG/2 ML VIAL FOR OR ONLY. ONE (07:07)
[2016-07-25] MEDS ORDERED: SURGICEL HEMOSTAT 4X8 EACH. ONE (07:07)
[2016-07-25] MEDS ORDERED: VANCOMYCIN 10GM VIAL for OR. ONE (07:07)
[2016-07-25] MEDS ORDERED: ASPIRIN 300 MG SUPP.RECT ONE (07:08)
[2016-07-25] MEDS ORDERED: 0.9 % SODIUM CHLORIDE 50 ML VIAL. IJ ONE (07:08)
[2016-07-25] MEDS ORDERED: MORPHINE SULFATE 4 MG/ML DISP.SYRIN. IV ONE (07:15)
[2016-07-25] MEDS ORDERED: MIDAZOLAM HCL/PF 2 MG/2 ML VIAL. ONE ×2 (07:15→07:18)
[2016-07-25] MEDS ORDERED: NITROGLYCERIN PREMIX 250 ML IV ONE (07:16)
[2016-07-25] MEDS ORDERED: ePHEDrine PF IN SALINE 50 MG/5 ML DISP.SYRIN IV ONE (07:16)
[2016-07-25] MEDS ORDERED: SUFentanil 100 MCG/2 ML AMPUL. ONE ×2 (07:19→08:53)
[2016-07-25] MEDS ORDERED: fentaNYL PF VIAL 100 MCG/2 ML VIAL ONE (07:19)
[2016-07-25] MEDS ORDERED: DEXAMETHASONE SOD PHOS 20 MG/5 ML VIAL. ONE ×2 (07:58→16:56)
[2016-07-25] MEDS ORDERED: MIDAZOLAM HCL/PF 2 MG/2 ML VIAL. IV ONE (08:00)
[2016-07-25] MEDS: DOCUSATE SODIUM 100 MG CAPSULE. PO SCH (09:00)
[2016-07-25] MEDS ORDERED: PROTAMINE 250 MG/25 ML VIAL IV ONE (10:43)
[2016-07-25] MEDS ORDERED: ALBUMIN HUMAN 5% 0 ML IV ONE (10:53)
[2016-07-25] MEDS ORDERED: ceFAZolin 2GM PREMIX 2 GM/50 ML BAG IV ONE (11:00)
[2016-07-25] MEDS ORDERED: AMIODARONE 900 MG in IV DEXTROSE 5% 500 ML IV ONE (11:30)
[2016-07-25] MEDS ORDERED: SODIUM BICARB ADULT 8.4% 50 MEQ/50 ML DISP.SYRIN. ONE ×13 (11:35→17:24)
[2016-07-25] MEDS ORDERED: PROTAMINE 50 MG/5 ML VIAL. IV ONE ×4 (12:31→16:34)
[2016-07-25] MEDS ORDERED: AMIODARONE 150 MG/3 ML VIAL ONE (12:37)
[2016-07-25] MEDS ORDERED: ISOFLURANE > 120 MINUTES. IH ONE ×2 (12:42→15:13)
[2016-07-25] MEDS ORDERED: MANNITOL 25% 12.5 G/50 ML VIAL FOR OR. ONE ×3 (13:07→16:20)
[2016-07-25] MEDS ORDERED: ALBUMIN HUMAN 25% 100 ML IV ONE ×2 (13:07→16:20)
[2016-07-25] MEDS ORDERED: LIDOCAINE 2% 100 MG/5 ML SYRINGE. ONE ×3 (13:07→16:20)
[2016-07-25] MEDS ORDERED: CALCIUM CHLORIDE 1,000 MG/10 ML DISP.SYRIN IV ONE ×3 (13:07→16:41)
[2016-07-25] MEDS ORDERED: MAGNESIUM SULFATE 5 GM/10 ML VIAL. ONE ×2 (13:08→16:19)
[2016-07-25] MEDS ORDERED: HEPARIN 30,000 UNIT/30 ML VIAL. ONE ×2 (13:08→13:39)
[2016-07-25 13:13] LABS: HEMATOCRIT 32.7 % (39.0-53.0); HEMOGLOBIN 11.3 g/dL (13.0-17.5); WHITE BLOOD COUNT 12.7 x10^3/uL (4.0-11.0)
[2016-07-25 13:23] LABS: INR 2.1 (0.8-1.1)
[2016-07-25] MEDS ORDERED: CLEVIDIPINE BUTYRATE 100 ML IV PRN (13:45)
[2016-07-25] MEDS ORDERED: EPINEPHrine SYRINGE 1 MG/10 ML SYRINGE ONE ×2 (13:52→16:41)
[2016-07-25] MEDS ORDERED: PROCAINAMIDE 2,000 MG in IV DEXTROSE 5% 500 ML IV PRN (14:30)
[2016-07-25] MEDS ORDERED: IOHEXOL 300 MG/ML 100ML VIAL. ONE (15:28)
[2016-07-25] MEDS ORDERED: NOREPINEPHRINE 8 MG in IV NORMAL SALINE 250 ML IV ONE (16:00)
[2016-07-25] MEDS ORDERED: ALBUMIN HUMAN 5% 1,000 ML IV ONE (16:11)
[2016-07-25] MEDS ORDERED: ROCURONIUM 50 MG/5 ML VIAL. ONE ×2 (16:33)
[2016-07-25 16:40] LABS: HEMATOCRIT 24.9 % (39.0-53.0); HEMOGLOBIN 8.5 g/dL (13.0-17.5); WHITE BLOOD COUNT 11.8 x10^3/uL (4.0-11.0)
[2016-07-25 16:51] LABS: INR 3.5 (0.8-1.1); PROTHROMBIN TIME PATIENT 33.3 SEC (11.7-14.0)
[2016-07-25] MEDS ORDERED: VASOPRESSIN 20 UNIT/ML VIAL. ONE (16:54)
[2016-07-25] MEDS ORDERED: FAMOTIDINE 20 MG/2 ML VIAL ONE (16:56)
[2016-07-25] MEDS ORDERED: diphenhydrAMINE 50 MG/ML VIAL ONE (16:56)
[2016-07-25] MEDS ORDERED: DEXTROSE 50% 25 GM / 50ML DISP.SYRIN. IV PRN (17:30)
[2016-07-25] MEDS ORDERED: ASPIRIN 300 MG SUPP.RECT PR PRN (17:30)
[2016-07-25] MEDS ORDERED: KCL PER PROTOCOL MC PRN (17:30)
[2016-07-25] MEDS ORDERED: MEPERIDINE PF 25 MG/ML VIAL. IV PRN (17:30)
[2016-07-25] MEDS ORDERED: HYDROcodone/APAP 5/325MG 1 TAB TABLET PO PRN ×2 (17:30)
[2016-07-25] MEDS ORDERED: AMIODARONE 900 MG in IV DEXTROSE 5% 500 ML IV PRN (17:30)
[2016-07-25] MEDS ORDERED: ALBUMIN HUMAN 5% 250 ML IV ONE (17:30)
[2016-07-25] MEDS ORDERED: ACETAMINOPHEN 325 MG TABLET. PO PRN (17:30)
[2016-07-25] MEDS ORDERED: PROPOFOL 100 ML IV PRN (17:30)
[2016-07-25] MEDS ORDERED: 0.9 % SODIUM CHLORIDE 10 ML DISP.SYRIN. IV PRN (17:30)
[2016-07-25] MEDS ORDERED: ELECTROLYTE (ICU) PROTOCOL. MC PRN (17:30)
[2016-07-25 17:31] LABS: ART BE ISTAT -3 mmol/L (0-3); ART GLUC ISTAT 115 mg/dL (70-99); ART HCO3 ISTAT 22 mmol/L (21-28); ART HCT ISTAT 42 % (37-52); ART HGB ISTAT 14.3 g/dL (14-18); ART ION CA ISTAT 1.22 mmol/L (1.13-1.32); ART NA ISTAT 137 mmol/L (135-145); ART PCO2 ISTAT 36 mmHg (35-45); ART PH ISTAT 7.38 (7.35-7.45); ART PO2 ISTAT 502 mmHg (75-100); ART SAT O2 SAT 100 % (95-99); ART TCO2 ISTAT 23 mmol/L (21-32); TOSPEC ART
[2016-07-25 17:31] LABS: ART BE ISTAT -5 mmol/L (0-3); ART GLUC ISTAT 137 mg/dL (70-99); ART HCO3 ISTAT 21 mmol/L (21-28); ART HCT ISTAT 41 % (37-52); ART HGB ISTAT 13.9 g/dL (14-18); ART ION CA ISTAT 1.18 mmol/L (1.13-1.32); ART K ISTAT 4.8 mmol/L (3.5-5.0); ART NA ISTAT 134 mmol/L (135-145); ART PCO2 ISTAT 39 mmHg (35-45); ART PH ISTAT 7.34 (7.35-7.45); ART PO2 ISTAT 504 mmHg (75-100); ART SAT O2 SAT 100 % (95-99); ART TCO2 ISTAT 22 mmol/L (21-32); TOSPEC ART
[2016-07-25 17:31] LABS: ART BE ISTAT -5 mmol/L (0-3); ART GLUC ISTAT 183 mg/dL (70-99); ART HCO3 ISTAT 21 mmol/L (21-28); ART HCT ISTAT 35 % (37-52); ART HGB ISTAT 11.9 g/dL (14-18); ART ION CA ISTAT 1.08 mmol/L (1.13-1.32); ART K ISTAT 6.1 mmol/L (3.5-5.0); ART NA ISTAT 134 mmol/L (135-145); ART PCO2 ISTAT 34 mmHg (35-45); ART PH ISTAT 7.38 (7.35-7.45); ART PO2 ISTAT 285 mmHg (75-100); ART SAT O2 SAT 100 % (95-99); ART TCO2 ISTAT 22 mmol/L (21-32); TOSPEC ART
--- NOTE | 2016-07-25 17:31 | RAD ---
AP portable chest radiograph 07/25/2016 Clinical History: Post CABG procedure. An AP portable erect digital radiograph of the chest was obtained. Comparison study is dated 07/20/2016. And ET tube has been placed. The tip of this tube overlies the trachea 1 cm below the level of the clavicles. A right internal jugular [place] catheter has been placed. The tip of this catheter extends to overlie the right lower lobe pulmonary artery. Left-sided chest tubes and a mediastinal drain are noted in place. Patient status post CABG procedure. The cardiac silhouette is borderline enlarged. The thoracic aorta is mildly tortuous. Perihilar infiltrates are seen, left greater than right which likely reflect pulmonary edema. The costophrenic angles are cut off on this radiograph. No pneumothorax or large pleural effusion is seen. The osseous structures are unchanged. Impression: 1. Tube and line position as outlined above. No pneumothorax is seen. 2. Bilateral perihilar infiltrates, left greater than right.
[2016-07-25 17:32] LABS: ART BE ISTAT 0 mmol/L (0-3); ART GLUC ISTAT 159 mg/dL (70-99); ART HCO3 ISTAT 24 mmol/L (21-28); ART HCT ISTAT 24 % (37-52); ART HGB ISTAT 8.2 g/dL (14-18); ART ION CA ISTAT 1.87 mmol/L (1.13-1.32); ART K ISTAT 3.8 mmol/L (3.5-5.0); ART NA ISTAT 142 mmol/L (135-145); ART PCO2 ISTAT 38 mmHg (35-45); ART PH ISTAT 7.42 (7.35-7.45); ART PO2 ISTAT 250 mmHg (75-100); ART SAT O2 SAT 100 % (95-99); ART TCO2 ISTAT 25 mmol/L (21-32); TOSPEC ART
[2016-07-25 17:32] LABS: ART BE ISTAT -6 mmol/L (0-3); ART GLUC ISTAT 235 mg/dL (70-99); ART HCO3 ISTAT 19 mmol/L (21-28); ART HCT ISTAT 20 % (37-52); ART HGB ISTAT 6.8 g/dL (14-18); ART ION CA ISTAT 1.26 mmol/L (1.13-1.32); ART K ISTAT 3.1 mmol/L (3.5-5.0); ART NA ISTAT 146 mmol/L (135-145); ART PCO2 ISTAT 34 mmHg (35-45); ART PH ISTAT 7.36 (7.35-7.45); ART PO2 ISTAT 324 mmHg (75-100); ART SAT O2 SAT 100 % (95-99); ART TCO2 ISTAT 20 mmol/L (21-32); TOSPEC ART
[2016-07-25 17:32] LABS: ART BE ISTAT -5 mmol/L (0-3); ART GLUC ISTAT 240 mg/dL (70-99); ART HCO3 ISTAT 20 mmol/L (21-28); ART HCT ISTAT 23 % (37-52); ART HGB ISTAT 7.8 g/dL (14-18); ART ION CA ISTAT 1.64 mmol/L (1.13-1.32); ART K ISTAT 3.6 mmol/L (3.5-5.0); ART NA ISTAT 140 mmol/L (135-145); ART PCO2 ISTAT 36 mmHg (35-45); ART PH ISTAT 7.36 (7.35-7.45); ART PO2 ISTAT 447 mmHg (75-100); ART SAT O2 SAT 100 % (95-99); ART TCO2 ISTAT 22 mmol/L (21-32); TOSPEC ART
[2016-07-25 17:32] LABS: ART BE ISTAT -2 mmol/L (0-3); ART GLUC ISTAT 196 mg/dL (70-99); ART HCO3 ISTAT 23 mmol/L (21-28); ART HCT ISTAT 34 % (37-52); ART HGB ISTAT 11.6 g/dL (14-18); ART ION CA ISTAT 1.07 mmol/L (1.13-1.32); ART K ISTAT 5.9 mmol/L (3.5-5.0); ART NA ISTAT 135 mmol/L (135-145); ART PCO2 ISTAT 37 mmHg (35-45); ART PO2 ISTAT 281 mmHg (75-100); ART SAT O2 SAT 100 % (95-99); ART TCO2 ISTAT 24 mmol/L (21-32); TOSPEC ART
[2016-07-25 17:32] LABS: ART BE ISTAT 1 mmol/L (0-3); ART GLUC ISTAT 175 mg/dL (70-99); ART HCO3 ISTAT 25 mmol/L (21-28); ART HCT ISTAT 24 % (37-52); ART HGB ISTAT 8.2 g/dL (14-18); ART ION CA ISTAT 1.34 mmol/L (1.13-1.32); ART K ISTAT 3.8 mmol/L (3.5-5.0); ART NA ISTAT 144 mmol/L (135-145); ART PCO2 ISTAT 37 mmHg (35-45); ART PH ISTAT 7.44 (7.35-7.45); ART PO2 ISTAT 293 mmHg (75-100); ART SAT O2 SAT 100 % (95-99); ART TCO2 ISTAT 26 mmol/L (21-32); TOSPEC ART
[2016-07-25 17:32] LABS: ART BE ISTAT -5 mmol/L (0-3); ART GLUC ISTAT 194 mg/dL (70-99); ART HCO3 ISTAT 20 mmol/L (21-28); ART HCT ISTAT 25 % (37-52); ART HGB ISTAT 8.5 g/dL (14-18); ART ION CA ISTAT 1.44 mmol/L (1.13-1.32); ART K ISTAT 3.9 mmol/L (3.5-5.0); ART NA ISTAT 142 mmol/L (135-145); ART PCO2 ISTAT 38 mmHg (35-45); ART PH ISTAT 7.34 (7.35-7.45); ART PO2 ISTAT 361 mmHg (75-100); ART SAT O2 SAT 100 % (95-99); ART TCO2 ISTAT 22 mmol/L (21-32); TOSPEC ART
[2016-07-25 17:32] LABS: ART BE ISTAT 0 mmol/L (0-3); ART GLUC ISTAT 174 mg/dL (70-99); ART HCO3 ISTAT 25 mmol/L (21-28); ART HCT ISTAT 30 % (37-52); ART HGB ISTAT 10.2 g/dL (14-18); ART ION CA ISTAT 1.45 mmol/L (1.13-1.32); ART K ISTAT 5.2 mmol/L (3.5-5.0); ART NA ISTAT 134 mmol/L (135-145); ART PCO2 ISTAT 40 mmHg (35-45); ART PH ISTAT 7.39 (7.35-7.45); ART PO2 ISTAT 266 mmHg (75-100); ART SAT O2 SAT 100 % (95-99); ART TCO2 ISTAT 26 mmol/L (21-32); TOSPEC ART
[2016-07-25 17:32] LABS: ART BE ISTAT -3 mmol/L (0-3); ART GLUC ISTAT 153 mg/dL (70-99); ART HCO3 ISTAT 22 mmol/L (21-28); ART HCT ISTAT 31 % (37-52); ART HGB ISTAT 10.5 g/dL (14-18); ART ION CA ISTAT 1.49 mmol/L (1.13-1.32); ART K ISTAT 4.4 mmol/L (3.5-5.0); ART NA ISTAT 138 mmol/L (135-145); ART PCO2 ISTAT 36 mmHg (35-45); ART PO2 ISTAT 412 mmHg (75-100); ART SAT O2 SAT 100 % (95-99); ART TCO2 ISTAT 23 mmol/L (21-32); TOSPEC ART
[2016-07-25 17:32] LABS: ART BE ISTAT -4 mmol/L (0-3); ART GLUC ISTAT 170 mg/dL (70-99); ART HCO3 ISTAT 22 mmol/L (21-28); ART HCT ISTAT 26 % (37-52); ART HGB ISTAT 8.8 g/dL (14-18); ART ION CA ISTAT 1.78 mmol/L (1.13-1.32); ART K ISTAT 3.7 mmol/L (3.5-5.0); ART NA ISTAT 145 mmol/L (135-145); ART PCO2 ISTAT 36 mmHg (35-45); ART PH ISTAT 7.38 (7.35-7.45); ART PO2 ISTAT 211 mmHg (75-100); ART SAT O2 SAT 100 % (95-99); ART TCO2 ISTAT 23 mmol/L (21-32); TOSPEC ART
[2016-07-25 17:32] LABS: ART BE ISTAT -2 mmol/L (0-3); ART GLUC ISTAT 147 mg/dL (70-99); ART HCO3 ISTAT 23 mmol/L (21-28); ART HCT ISTAT 33 % (37-52); ART HGB ISTAT 11.2 g/dL (14-18); ART ION CA ISTAT 0.99 mmol/L (1.13-1.32); ART K ISTAT 5.6 mmol/L (3.5-5.0); ART NA ISTAT 134 mmol/L (135-145); ART PCO2 ISTAT 38 mmHg (35-45); ART PH ISTAT 7.38 (7.35-7.45); ART PO2 ISTAT 392 mmHg (75-100); ART SAT O2 SAT 100 % (95-99); ART TCO2 ISTAT 24 mmol/L (21-32); TOSPEC ART
[2016-07-25 17:32] LABS: ART BE ISTAT -5 mmol/L (0-3); ART GLUC ISTAT 146 mg/dL (70-99); ART HCO3 ISTAT 20 mmol/L (21-28); ART HCT ISTAT 31 % (37-52); ART HGB ISTAT 10.5 g/dL (14-18); ART ION CA ISTAT 2.19 mmol/L (1.13-1.32); ART K ISTAT 4.2 mmol/L (3.5-5.0); ART NA ISTAT 138 mmol/L (135-145); ART PCO2 ISTAT 34 mmHg (35-45); ART PH ISTAT 7.37 (7.35-7.45); ART PO2 ISTAT 435 mmHg (75-100); ART SAT O2 SAT 100 % (95-99); ART TCO2 ISTAT 21 mmol/L (21-32); TOSPEC ART
[2016-07-25 17:32] LABS: ART BE ISTAT -5 mmol/L (0-3); ART GLUC ISTAT 185 mg/dL (70-99); ART HCO3 ISTAT 22 mmol/L (21-28); ART HCT ISTAT 23 % (37-52); ART HGB ISTAT 7.8 g/dL (14-18); ART ION CA ISTAT 1.66 mmol/L (1.13-1.32); ART K ISTAT 3.6 mmol/L (3.5-5.0); ART NA ISTAT 145 mmol/L (135-145); ART PCO2 ISTAT 45 mmHg (35-45); ART PO2 ISTAT 393 mmHg (75-100); ART SAT O2 SAT 100 % (95-99); ART TCO2 ISTAT 23 mmol/L (21-32); TOSPEC ART
[2016-07-25 17:32] LABS: ART BE ISTAT -9 mmol/L (0-3); ART GLUC ISTAT 228 mg/dL (70-99); ART HCO3 ISTAT 18 mmol/L (21-28); ART HCT ISTAT 26 % (37-52); ART HGB ISTAT 8.8 g/dL (14-18); ART ION CA ISTAT 1.55 mmol/L (1.13-1.32); ART K ISTAT 3.2 mmol/L (3.5-5.0); ART NA ISTAT 147 mmol/L (135-145); ART PCO2 ISTAT 39 mmHg (35-45); ART PH ISTAT 7.27 (7.35-7.45); ART PO2 ISTAT 311 mmHg (75-100); ART SAT O2 SAT 100 % (95-99); ART TCO2 ISTAT 19 mmol/L (21-32); TOSPEC ART
[2016-07-25 17:34] LABS: HEMATOCRIT 27.3 % (39.0-53.0); HEMOGLOBIN 9.4 g/dL (13.0-17.5); WHITE BLOOD COUNT 11.8 x10^3/uL (4.0-11.0)
[2016-07-25 17:42] LABS: INR 2.6 (0.8-1.1); PROTHROMBIN TIME PATIENT 26.3 SEC (11.7-14.0)
[2016-07-25] MEDS ORDERED: MIDAZOLAM PREMIX 100 ML IV ONE (18:06)
[2016-07-25] MEDS ORDERED: MIDAZOLAM HCL/PF 5 MG/5 ML VIAL. IV PRN (18:15)
[2016-07-25] MEDS ORDERED: DEXTROSE 5% IV ONE ×2 (18:15→22:15)
[2016-07-25] MEDS ORDERED: VECURONIUM BROMIDE IV ONE (18:15)
[2016-07-25] MEDS ORDERED: MIDAZOLAM PREMIX 100 ML IV PRN (18:15)
[2016-07-25] MEDS ORDERED: VANCOMYCIN 1 GM in IV NORMAL SALINE 250ML 250 ML IV ONE (18:15)
[2016-07-25] MEDS ORDERED: MIDAZOLAM HCL/PF 2 MG/2 ML VIAL. IV PRN (18:15)
[2016-07-25 18:34] LABS: HEMATOCRIT 27.1 % (39.0-53.0); HEMOGLOBIN 9.3 g/dL (13.0-17.5); RED BLOOD COUNT 2.88 x10^6/uL (4.30-5.70); RED CELL DISTRIBUTION WIDTH 13.7 % (11.5-14.5); WHITE BLOOD COUNT 10.8 x10^3/uL (4.0-11.0)
[2016-07-25 18:41] LABS: BASE EXCESS COOX -3 mmol/L (-3-3); CARBON MONOXIDE 0.2 % (0.0-1.9); HCO3 COOX 23 mmol/L (21-28); METHEMOGLOBIN 0.8 % (0.0-1.9); OXYHEMOGLOBIN 97.1 %; PCO2 COOX 41 mmHg (35-46); PH COOX 7.36 (7.35-7.45); PO2 COOX 284 mmHg (75-108); SAT O2 COOX 98 % (92-99); TOTAL HEMOGLOBIN 10.2 g/dL
[2016-07-25 18:43] LABS: FIO2 COOX 100
[2016-07-25 18:46] LABS: INR 1.8 (0.8-1.1); PROTHROMBIN TIME PATIENT 20.1 SEC (11.7-14.0)
[2016-07-25] MEDS: IV RINGERS,LACTATED 1000ML 1,000 ML IV SCH (18:51)
[2016-07-25 18:53] LABS: CALCIUM 11.2 mg/dL (8.5-10.1); CREATININE 1.6 mg/dL (0.7-1.3); GFR 44.8; MAGNESIUM 2.6 mg/dL (1.8-2.4); POTASSIUM 3.5 mmol/L (3.5-5.1)
--- NOTE | 2016-07-25 19:04 | PDOC ---
BRIEF OPERATIVE NOTE Date: Jul 25, 2016 Pre-Op Diagnosis Severe three-vessel coronary artery disease ST elevation myocardial infarction Severe ischemic cardiomyopathy Chronic atrial fibrillation Hypertension Post-Op Diagnosis Severe three-vessel coronary artery disease Postoperative ST elevation myocardial infarction Cardiogenic shock Ischemic cardiomyopathy Chronic atrial fibrillation Hypertension Procedure Performed Coronary artery bypass grafting 3 (left internal mammary artery to the left anterior descending artery, then saphenous vein graft to the left anterior descending artery, saphenous vein graft to obtuse marginal 1 coronary artery, saphenous vein graft to right posterior descending artery) Placement of left ventricular assist device (impella 3.0) Endoscopic left greater saphenous vein harvesting Surgeon Olga Lopez MD Graphic Design Intern Tamara Ribeiro, RAFITA Donato, RAFITA Mattson MD Anesthesia Type: General Blood Loss Cell saver IV Fluid Cellsaver: 800 mls FFP: 2 units Platelets: 1 pack Urine Output 1000 mls Specimens Obtained No Findings Diffusely calcified and small left anterior descending artery 1.5 mm Good 2 mm obtuse marginal 1 and right posterior descending artery targets 2 mm The obtuse marginal 2 from its origin in the AV groove all the way to its distal aspect was diffusely calcified The first diagonal branch of the LAD was also very small Very poor preoperative ejection fraction. Transesophageal echocardiogram was not performed but two thirds of the distal LAD had previously infarcted and they felt hard as a rock After finishing the operation and having closed the sternum we are about to transfer the patient out of the room when he developed V. fib. At that point the chest was reopened and cardiopulmonary bypass reinstituted Complications Postoperative myocardial infarction Additional Remarks Total cardiopulmonary bypass time: 260 minutes Cross-clamp time: 131 minutes OLGA LOPEZ MD Jul 25, 2016 19:04
--- NOTE | 2016-07-25 19:15 | PDOC4 ---
Operative Note Operative Note Date: Jul 25, 2016 Preoperative diagnosis Severe three-vessel coronary artery disease ST elevation myocardial infarction Severe ischemic cardiomyopathy Chronic atrial fibrillation Hypertension Postoperative diagnosis Severe three-vessel coronary artery disease Postoperative ST elevation myocardial infarction Cardiogenic shock Ischemic cardiomyopathy Chronic atrial fibrillation Hypertension Procedure Coronary artery bypass grafting 3 (left internal mammary artery to the left anterior descending artery, then saphenous vein graft to the left anterior descending artery, saphenous vein graft to obtuse marginal 1 coronary artery, saphenous vein graft to right posterior descending artery) Placement of left ventricular assist device (impella 3.0) Endoscopic left greater saphenous vein harvesting Surgeon Olga Lopez MD Assistants Tamara Ribeiro, RAFITA Donato, RAFITA Mattson MD Anesthesia General Blood loss Cell saver IV fluids Cellsaver: 800 mls FFP: 2 units Platelets: 1 pack Urine output 1000 mls Specimens No Findings Diffusely calcified and small left anterior descending artery 1.5 mm Good 2 mm obtuse marginal 1 and right posterior descending artery targets 2 mm The obtuse marginal 2 from its origin in the AV groove all the way to its distal aspect was diffusely calcified The first diagonal branch of the LAD was also very small Very poor preoperative ejection fraction. Transesophageal echocardiogram was not performed but two thirds of the distal LAD had previously infarcted and they felt hard as a rock. His transthoracic echo on admission showed an EF of 40 %, but subsequently peaked at a troponin at 100. After finishing the operation and having closed the sternum we are about to transfer the patient out of the room when he developed V. fib. At that point the chest was reopened and cardiopulmonary bypass reinstituted Complications Postoperative myocardial infarction Additional remarks Total cardiopulmonary bypass time 260 minutes Cross-clamp time 131 minutes Indication Mr. Alvarado is a very pleasant 56-year-old male who presented to our emergency room with severe crushing chest pain. The pain had started earlier in the morning and was associated with nausea and dizziness. He had never had analogous episode although upon further asking it does appear that he's had angina for some time. He was found to have ST elevations with a significant troponin leak and was emergently taken to the catheterization laboratory technician. He denies any limitations in his daily activities and is able to walk several flight of stairs without shortness of breath. He has a history of chronic atrial fibrillation, hypertension, hyperlipidemia and a strong family history of ischemic heart disease. His coronary angiogram demonstrated severe three- vessel coronary artery disease with a proximal 75% stenosis of the LAD, a 80% stenosis of a good size obtuse marginal, a proximal and mid tight lesions of the RCA. His EF on echo was moderately reduced at 40-45%. His troponin peaked at 100 but is now slowly coming down. I was consulted to consider the patient for coronary surgical revascularization. I quoted a mortality risk of 1-2%, a 1- 2% risk of stroke, a 1% risk of renal failure requiring dialysis, 1% risk of sternal wound infection, 5% risk of pneumonia, 5% risk of perioperative FL, a 5- 10% risk of re-sternotomy for bleeding and a 20-30% risk of postoperative arrhythmias. I also explained in detail the benefits of undergoing CABG. The patient accepts these risks and agrees to proceed. Operation After appropriate identification the patient was brought to the operating room and placed supine on the operating table. Anesthesia was induced by the anesthesiologist and the airway was secured with an endotracheal tube. Monitoring lines were placed without significant difficulty. Antibiotics were delivered and the patient was preped and draped in the usual standard sterile surgical fashion. A timeout was then performed. A median sternotomy was performed and the internal mammary artery was harvested. Simultaneously the left greater saphenous vein was harvested endoscopically. The vein conduit was of good caliber but the FLETCHER was relatively small. The pericardium was incised. The patient was heparinized. Cardiopulmonary bypass was established through the ascending aorta and the right atrium. The patient was cooled to 33. Myocardial protection was achieved with antegrade blood cardioplegia. The cross-clamp was applied and diastolic arrest was achieved. Intermittent dosages of cardioplegia were given. Grafts: Saphenous vein graft to obtuse marginal 1 coronary artery, end to side anastomosis with 7-0 Prolene. 2 mm vessel. Saphenous vein graft to right posterior descending coronary artery, end to side anastomosis with 7-0 Prolene. 2 mm vessel Left internal mammary artery to distal left anterior descending coronary artery, end to side anastomosis with 7-0 Prolene. Small and diffusely calcified 1.5 mm intramyocardial vessel Two proximal anastomoses were performed using a running 5-0 Prolene suture. The cross-clamp was removed. The heart was allowed to rewarm and reperfuse. The grafts were de-aired. I brought the marginal grafts anterior to the pulmonary artery and posterior to the FLETCHER. An atrial and ventricular pacing wires were placed. The patient recovered normal sinus rhythm. He was from cardiopulmonary bypass without inotropic support. Heparin was reversed with protamine. An angled 32 Pakistani chest tube was placed in the left pleural space, a 32Fr angled in the posterior pericardium and a 32 straight in the anterior pericardium. Hemostasis was achieved and confirmed. The sternotomy was closed with #7 steel wires. The incision was closed with a layer of 0 Vicryl followed by 2-0 Vicryl and then 4-0 Monocryl for the epidermis. As we were ready to leave the operating room for the ICU the patient developed ventricular fibrillation and was shocked back to normal sinus rhythm. Several minutes later he again had an episode of V. fib so I reopened the chest cannulated the ascending aorta and right atrium and also placed a root vent needle in the ascending aorta and reinstituted cardiopulmonary bypass after having again given intravenous heparin and confirming a therapeutic ACT above 400. We performed 7-8 minutes of internal cardiac massage prior to going back on bypass. An unit that point that the patient had developed a postoperative myocardial infarction, likely from spasm or poor flow of the FLETCHER to LAD. I crossclamped the aorta are again, gave antegrade cardioplegia followed by intermittent doses of cardioplegia. Diastolic arrest was again achieved. I decided to redo the LAD bypass but this time with a saphenous vein. My engineer third assistant harvested the piece of vein from the left ankle. The FLETCHER was ligated. I found a new area proximal to the previous anastomosis which was not calcified although very difficult to find owing to its intramyocardial position. The saphenous vein graft was anastomosed to the LAD in end to side anastomosis with 7-0 Prolene. The proximal anastomosis was then performed using a running 6-0 Prolene suture. The cross-clamp was removed and the heart was allowed to rewarm and reperfuse. The SVG to LAD graft was de-aired. Owing to the obvious poor function of the left ventricle I asked my colleague Dr. Mattson to place an Impela as a left ventricular assist device. He will dictate his part of the operation. We gradually the patient from cardiopulmonary bypass, on a epinephrine, norepinephrine and dopamine drips at the same time starting the ventricular system device managing to achieve a flow of 3 L/m. The patient again had recovered normal sinus rhythm. Heparin was reversed with protamine. An angled 32 Pakistani chest tube was placed in the left pleural space, a 32Fr angled in the posterior pericardium and a 32 straight in the anterior pericardium. Hemostasis was achieved and confirmed, although the patient was coagulopathic. Anesthesia was giving blood products. I decided not to close the chest owing to the severe left ventricular dysfunction. I stapled a piece of Esmarch around the incision and then covered it with an Ioband. A sterile dressing was applied. The instrument, sponge and needle counts were correct. The patient was then transferred to the ICU in critical condition. The family was thoroughly updated on the events and the prognosis. OLGA LOPEZ MD Jul 25, 2016 19:15
[2016-07-25] MEDS: INSULIN REGULAR VIAL 150 UNIT in 0.9 % SODIUM CHLORIDE 150ML 150 ML IV PRN (19:44)
[2016-07-25] MEDS: ATORVASTATIN CALCIUM 40 MG TABLET. PO SCH (20:28)
[2016-07-25] MEDS: PIPERACILLIN/TAZOBACTAM 3.375 GM in IV NORMAL SALINE 50ML 50 ML IV SCH (20:54)
[2016-07-25] MEDS: POTASSIUM CHLORIDE 20MEQ 50 ML IV SCH ×3 (20:59→22:58)
[2016-07-25 21:07] LABS: INR 1.6 (0.8-1.1); PROTHROMBIN TIME PATIENT 17.8 SEC (11.7-14.0)
[2016-07-25 21:41] LABS: HEMATOCRIT 29.2 % (39.0-53.0); HEMOGLOBIN 10.1 g/dL (13.0-17.5); RED BLOOD COUNT 3.16 x10^6/uL (4.30-5.70); RED CELL DISTRIBUTION WIDTH 14.2 % (11.5-14.5); WHITE BLOOD COUNT 5.1 x10^3/uL (4.0-11.0)
[2016-07-25] MEDS: FAMOTIDINE 20 MG/2 ML VIAL IVP SCH (21:48)
[2016-07-25] MEDS ORDERED: HEPARIN IV ONE (22:15)
[2016-07-26] VITALS (28 sets, daily range): BP systolic 89–194; BP diastolic 58–113
[2016-07-26] MEDS: PIPERACILLIN/TAZOBACTAM 3.375 GM in IV NORMAL SALINE 50ML 50 ML IV SCH ×5 (00:30→23:53)
[2016-07-26] MEDS ORDERED: DEXTROSE 5% IV PRN (00:45)
[2016-07-26] MEDS ORDERED: VECURONIUM BROMIDE IV PRN (00:45)
[2016-07-26] MEDS ORDERED: DEXTROSE 50% 25 GM / 50ML DISP.SYRIN. IV ONE (01:00)
[2016-07-26] MEDS: MORPHINE SULFATE 2 MG/ML DISP.SYRIN. IV PRN ×5 (02:13→10:06)
[2016-07-26 03:38] LABS: HEMATOCRIT 28.3 % (39.0-53.0); HEMOGLOBIN 9.8 g/dL (13.0-17.5); RED BLOOD COUNT 3.09 x10^6/uL (4.30-5.70); RED CELL DISTRIBUTION WIDTH 14.1 % (11.5-14.5); WHITE BLOOD COUNT 4.7 x10^3/uL (4.0-11.0)
[2016-07-26 06:49] LABS: CREATININE 1.4 mg/dL (0.7-1.3); GFR 52.2; POTASSIUM 3.8 mmol/L (3.5-5.1)
[2016-07-26] MEDS: AMIODARONE 450 MG in IV DEXTROSE 5% 250 ML IV PRN ×2 (07:01→21:03)
[2016-07-26 07:46] LABS: INR 1.6 (0.8-1.1); PROTHROMBIN TIME PATIENT 17.9 SEC (11.7-14.0)
[2016-07-26] MEDS: DOCUSATE SODIUM 100 MG CAPSULE. PO SCH (07:52)
[2016-07-26] MEDS: FAMOTIDINE 20 MG/2 ML VIAL IVP SCH ×2 (07:52→21:14)
[2016-07-26] MEDS: ASPIRIN ENTERIC COATED 325 MG TABLET.DR. PO SCH (07:52)
[2016-07-26] MEDS: MAGNESIUM SULFATE 1GM 100 ML IV PRN (07:58)
[2016-07-26 08:51] LABS: HCO3 ABG 22 mmol/L (21-28); PCO2 ABG 24 mmHg (35-46); PO2 ABG 94 mmHg (75-108); SAT O2 ABG 97 % (92-99)
[2016-07-26] MEDS: IV RINGERS,LACTATED 1000ML 1,000 ML IV SCH ×2 (09:06→23:49)
--- NOTE | 2016-07-26 09:13 | EKG ---
[facility] [address] [place] [address] Test Date: 2016-07-26 Test Time: 09:10:46 Pat Name: CHARLY NAJERA Department: Room: 110 1 Gender: M Sheet Heater Helper: HOWARD : 1960 Requested By: NERY DANGELO Order Number: [id number] Reading MD: Robinson Mattson Measurements Intervals [place] Rate: 103 P: -47 AL: 180 QRS: 59 QRSD: 76 T: 47 QT: 390 QTc: 513 Interpretive Statements SINUS TACHYCARDIA CONSISTENT WITH ANTERIOR INFARCT Electronically Signed On 08-08-2016 15:33:28 CDT by Robinson Mattson
[2016-07-26] MEDS ORDERED: IV RINGERS,LACTATED 500ML 500 ML IV PRN (10:00)
[2016-07-26] MEDS ORDERED: fentaNYL PF VIAL 100 MCG/2 ML VIAL IV PRN ×2 (10:00)
[2016-07-26] MEDS: MIDAZOLAM PREMIX 100 ML IV PRN (10:00)
[2016-07-26 10:19] LABS: FIO2 ABG 50; PH ABG 7.59 (7.35-7.45)
--- NOTE | 2016-07-26 11:08 | PDOC ---
PROGRESS NOTES Chief Complaint Chief Complaint Chest pain STEMI 1. STEMI: 3-vessel dz by cardiac cath (07/20/16). s/p CABG on 07/25/2016 : FLETCHER to LAD; SVG to LAD; SVG to OM1 and SVG to RPDA. VF arrest after chest closed; reopened and placed back on bypass then converted to LVAD 2. cardiogenic shock: post op, on LVAD. d/w Ms Quevedo 3. Cardiomyopathy: EF 455 pre-op, rpt echo today: 20% 4. Afib: rate controlled on amiodarone gtt 5. HTN: meds as tolerated 6. HLD: on statin 7. DM: on insulin gtt Prognosis: serious Vitals Vitals Vital Signs Date Time Temp Pulse Resp B/P Pulse Ox O2 Delivery O2 Flow Rate FiO2 07/26/16 10:20 16 Ventilator 07/26/16 10:06 97 07/26/16 09:24 2.0 07/26/16 09:00 114 /68 07/26/16 09:00 99.6 99.6 Physical Exam General: Other (sedated, intubated, immobilized on vec) Heart: Other (irregular) Lungs: Clear, Other (midline incision covered with bloody gauze) Abdomen: Soft, No tenderness Extremities: Other (+ edema x4) Skin: No rashes Labs LABS Laboratory Tests Test 07/25/16 11:29 07/25/16 11:30 07/25/16 11:57 07/25/16 11:59 Bedside Hemoglobin (Calculated) 11.9g/dL (14-18) 11.6g/dL (14-18) Bedside Hematocrit 35% (37-52) 34% (37-52) Bedside Arterial pH 7.38 (7.35-7.45) 7.40 (7.35-7.45) Bedside Arterial pCO2 34mmHg (35-45) 37mmHg (35-45) Bedside Arterial pO2 285mmHg (75-100) 281mmHg (75-100) Bedside Arterial HCO3 21mmol/L (21-28) 23mmol/L (21-28) Bedside Arterial Total CO2 22mmol/L (21-32) 24mmol/L (21-32) Arterial Bld O2 Saturation (Measur) 100% (95-99) 100% (95-99) Bedside Arterial Blood Base Excess -5mmol/L (0-3) -2mmol/L (0-3) Bedside FiO2 70.0 70.0 Bedside Sodium 134mmol/L (135-145) 135mmol/L (135-145) Bedside Potassium 6.1mmol/L (3.5-5.0) 5.9mmol/L (3.5-5.0) Glucose Level 183mg/dL (70-99) 196mg/dL (70-99) Bedside Ionized Calcium (Giovani) 1.08mmol/L (1.13-1.32) 1.07mmol/L (1.13-1.32) Activated Clotting Time 478SEC (90-125) 531SEC (90-125) Test 07/25/16 12:30 07/25/16 12:32 07/25/16 12:58 07/25/16 12:59 Bedside Hemoglobin (Calculated) 10.2g/dL (14-18) 10.5g/dL (14-18) Bedside Hematocrit 30% (37-52) 31% (37-52) Bedside Arterial pH 7.39 (7.35-7.45) 7.40 (7.35-7.45) Bedside Arterial pCO2 40mmHg (35-45) 36mmHg (35-45) Bedside Arterial pO2 266mmHg (75-100) 412mmHg (75-100) Bedside Arterial HCO3 25mmol/L (21-28) 22mmol/L (21-28) Bedside Arterial Total CO2 26mmol/L (21-32) 23mmol/L (21-32) Arterial Bld O2 Saturation (Measur) 100% (95-99) 100% (95-99) Bedside Arterial Blood Base Excess 0mmol/L (0-3) -3mmol/L (0-3) Bedside FiO2 80.0 100.0 Bedside Sodium 134mmol/L (135-145) 138mmol/L (135-145) Bedside Potassium 5.2mmol/L (3.5-5.0) 4.4mmol/L (3.5-5.0) Glucose Level 174mg/dL (70-99) 153mg/dL (70-99) Bedside Ionized Calcium (Giovani) 1.45mmol/L (1.13-1.32) 1.49mmol/L (1.13-1.32) Activated Clotting Time 514SEC (90-125) 125SEC (90-125) Test 07/25/16 13:08 07/25/16 13:31 07/25/16 13:46 07/25/16 13:58 White Blood Count 12.7x10^3/uL (4.0-11.0) Hemoglobin 11.3g/dL (13.0-17.5) Hematocrit 32.7% (39.0-53.0) Platelet Count 104x10^3/uL (140-400) Prothrombin Time 22.0SEC (11.7-14.0) Prothromb Time International Ratio 2.1 (0.8-1.1) Activated Partial Thromboplast Time 39SEC (24-38) Fibrinogen 304mg/dL (200-440) Bedside Hemoglobin (Calculated) 10.5g/dL (14-18) 7.8g/dL (14-18) Bedside Hematocrit 31% (37-52) 23% (37-52) Bedside Arterial pH 7.37 (7.35-7.45) 7.36 (7.35-7.45) Bedside Arterial pCO2 34mmHg (35-45) 36mmHg (35-45) Bedside Arterial pO2 435mmHg (75-100) 447mmHg (75-100) Bedside Arterial HCO3 20mmol/L (21-28) 20mmol/L (21-28) Bedside Arterial Total CO2 21mmol/L (21-32) 22mmol/L (21-32) Arterial Bld O2 Saturation (Measur) 100% (95-99) 100% (95-99) Bedside Arterial Blood Base Excess -5mmol/L (0-3) -5mmol/L (0-3) Bedside FiO2 100.0 100.0 Bedside Sodium 138mmol/L (135-145) 140mmol/L (135-145) Bedside Potassium 4.2mmol/L (3.5-5.0) 3.6mmol/L (3.5-5.0) Glucose Level 146mg/dL (70-99) 240mg/dL (70-99) Bedside Ionized Calcium (Giovani) 2.19mmol/L (1.13-1.32) 1.64mmol/L (1.13-1.32) Activated Clotting Time 918SEC (90-125) Test 07/25/16 14:26 07/25/16 14:27 07/25/16 14:56 07/25/16 14:57 Bedside Hemoglobin (Calculated) 8.5g/dL (14-18) 8.2g/dL (14-18) Bedside Hematocrit 25% (37-52) 24% (37-52) Bedside Arterial pH 7.34 (7.35-7.45) 7.44 (7.35-7.45) Bedside Arterial pCO2 38mmHg (35-45) 37mmHg (35-45) Bedside Arterial pO2 361mmHg (75-100) 293mmHg (75-100) Bedside Arterial HCO3 20mmol/L (21-28) 25mmol/L (21-28) Bedside Arterial Total CO2 22mmol/L (21-32) 26mmol/L (21-32) Arterial Bld O2 Saturation (Measur) 100% (95-99) 100% (95-99) Bedside Arterial Blood Base Excess -5mmol/L (0-3) 1mmol/L (0-3) Bedside FiO2 80.0 80.0 Bedside Sodium 142mmol/L (135-145) 144mmol/L (135-145) Bedside Potassium 3.9mmol/L (3.5-5.0) 3.8mmol/L (3.5-5.0) Glucose Level 194mg/dL (70-99) 175mg/dL (70-99) Bedside Ionized Calcium (Giovani) 1.44mmol/L (1.13-1.32) 1.34mmol/L (1.13-1.32) Activated Clotting Time 389SEC (90-125) 500SEC (90-125) Test 07/25/16 15:25 07/25/16 15:26 07/25/16 15:44 07/25/16 16:12 Bedside Hemoglobin (Calculated) 8.2g/dL (14-18) Bedside Hematocrit 24% (37-52) Bedside Arterial pH 7.42 (7.35-7.45) Bedside Arterial pCO2 38mmHg (35-45) Bedside Arterial pO2 250mmHg (75-100) Bedside Arterial HCO3 24mmol/L (21-28) Bedside Arterial Total CO2 25mmol/L (21-32) Arterial Bld O2 Saturation (Measur) 100% (95-99) Bedside Arterial Blood Base Excess 0mmol/L (0-3) Bedside FiO2 80.0 Bedside Sodium 142mmol/L (135-145) Bedside Potassium 3.8mmol/L (3.5-5.0) Glucose Level 159mg/dL (70-99) Bedside Ionized Calcium (Giovani) 1.87mmol/L (1.13-1.32) Activated Clotting Time 380SEC (90-125) > 1001SEC (90-125) 498SEC (90-125) Test 07/25/16 16:19 07/25/16 16:30 07/25/16 16:32 07/25/16 16:51 Bedside Hemoglobin (Calculated) 8.8g/dL (14-18) 7.8g/dL (14-18) 6.8g/dL (14-18) Bedside Hematocrit 26% (37-52) 23% (37-52) 20% (37-52) Bedside Arterial pH 7.38 (7.35-7.45) 7.30 (7.35-7.45) 7.36 (7.35-7.45) Bedside Arterial pCO2 36mmHg (35-45) 45mmHg (35-45) 34mmHg (35-45) Bedside Arterial pO2 211mmHg (75-100) 393mmHg (75-100) 324mmHg (75-100) Bedside Arterial HCO3 22mmol/L (21-28) 22mmol/L (21-28) 19mmol/L (21-28) Bedside Arterial Total CO2 23mmol/L (21-32) 23mmol/L (21-32) 20mmol/L (21-32) Arterial Bld O2 Saturation (Measur) 100% (95-99) 100% (95-99) 100% (95-99) Bedside Arterial Blood Base Excess -4mmol/L (0-3) -5mmol/L (0-3) -6mmol/L (0-3) Bedside FiO2 80.0 100.0 100.0 Bedside Sodium 145mmol/L (135-145) 145mmol/L (135-145) 146mmol/L (135-145) Bedside Potassium 3.7mmol/L (3.5-5.0) 3.6mmol/L (3.5-5.0) 3.1mmol/L (3.5-5.0) Glucose Level 170mg/dL (70-99) 185mg/dL (70-99) 235mg/dL (70-99) Bedside Ionized Calcium (Giovani) 1.78mmol/L (1.13-1.32) 1.66mmol/L (1.13-1.32) 1.26mmol/L (1.13-1.32) White Blood Count 11.8x10^3/uL (4.0-11.0) Hemoglobin 8.5g/dL (13.0-17.5) Hematocrit 24.9% (39.0-53.0) Platelet Count 59x10^3/uL (140-400) Prothrombin Time 33.3SEC (11.7-14.0) Prothromb Time International Ratio 3.5 (0.8-1.1) Activated Partial Thromboplast Time 49SEC (24-38) Fibrinogen 160mg/dL (200-440) Activated Clotting Time 163SEC (90-125) Test 07/25/16 17:18 07/25/16 17:27 07/25/16 18:25 07/25/16 18:28 Bedside Hemoglobin (Calculated) 8.8g/dL (14-18) Bedside Hematocrit 26% (37-52) Bedside Arterial pH 7.27 (7.35-7.45) Bedside Arterial pCO2 39mmHg (35-45) Bedside Arterial pO2 311mmHg (75-100) Bedside Arterial HCO3 18mmol/L (21-28) Bedside Arterial Total CO2 19mmol/L (21-32) Arterial Bld O2 Saturation (Measur) 100% (95-99) Bedside Arterial Blood Base Excess -9mmol/L (0-3) Bedside FiO2 100.0 Bedside Sodium 147mmol/L (135-145) Bedside Potassium 3.2mmol/L (3.5-5.0) Glucose Level 228mg/dL (70-99) 203mg/dL (70-99) Bedside Ionized Calcium (Giovani) 1.55mmol/L (1.13-1.32) White Blood Count 11.8x10^3/uL (4.0-11.0) 10.8x10^3/uL (4.0-11.0) Hemoglobin 9.4g/dL (13.0-17.5) 9.3g/dL (13.0-17.5) Hematocrit 27.3% (39.0-53.0) 27.1% (39.0-53.0) Platelet Count 92x10^3/uL (140-400) 84x10^3/uL (140-400) Prothrombin Time 26.3SEC (11.7-14.0) 20.1SEC (11.7-14.0) Prothromb Time International Ratio 2.6 (0.8-1.1) 1.8 (0.8-1.1) Activated Partial Thromboplast Time 80SEC (24-38) 56SEC (24-38) Red Blood Count 2.88x10^6/uL (4.30-5.70) Mean Corpuscular Volume 94fL (79-100) Mean Corpuscular Hemoglobin 32pg (25-35) Mean Corpuscular Hemoglobin Concent 35g/dL (31-37) Red Cell Distribution Width 13.7% (11.5-14.5) O2 Saturation 98% (92-99) Arterial Blood pH 7.36 (7.35-7.45) Arterial Blood pCO2 at Patient Temp 41mmHg (35-46) Arterial Blood pO2 at Patient Temp 284mmHg (75-108) Arterial Blood HCO3 23mmol/L (21-28) Arterial Blood Base Excess -3mmol/L (-3-3) Oxyhemoglobin 97.1% Methemoglobin 0.8% (0.0-1.9) Carbon Monoxide, Quantitative 0.2% (0.0-1.9) FiO2 100 Sodium Level 153mmol/L (136-145) Potassium Level 3.5mmol/L (3.5-5.1) Chloride Level 109mmol/L (98-107) Carbon Dioxide Level 23mmol/L (21-32) Anion Gap 21 (6-14) Blood Urea Nitrogen 17mg/dL (8-26) Creatinine 1.6mg/dL (0.7-1.3) Estimated GFR (Cockcroft-Gault) 44.8 Calcium Level 11.2mg/dL (8.5-10.1) Magnesium Level 2.6mg/dL (1.8-2.4) Glucose (Fingerstick) 197mg/dL (70-99) Test 07/25/16 19:33 07/25/16 20:43 07/25/16 20:45 07/25/16 21:30 Glucose (Fingerstick) 183mg/dL (70-99) 160mg/dL (70-99) Prothrombin Time 17.8SEC (11.7-14.0) Prothromb Time International Ratio 1.6 (0.8-1.1) Activated Partial Thromboplast Time 40SEC (24-38) White Blood Count 5.1x10^3/uL (4.0-11.0) Red Blood Count 3.16x10^6/uL (4.30-5.70) Hemoglobin 10.1g/dL (13.0-17.5) Hematocrit 29.2% (39.0-53.0) Mean Corpuscular Volume 93fL (79-100) Mean Corpuscular Hemoglobin 32pg (25-35) Mean Corpuscular Hemoglobin Concent 34g/dL (31-37) Red Cell Distribution Width 14.2% (11.5-14.5) Platelet Count 75x10^3/uL (140-400) Test 07/25/16 21:46 07/25/16 22:55 07/25/16 23:59 07/26/16 00:15 Glucose (Fingerstick) 155mg/dL (70-99) 148mg/dL (70-99) 147mg/dL (70-99) Potassium Level 6.2mmol/L (3.5-5.1) Test 07/26/16 01:01 07/26/16 02:04 07/26/16 03:19 07/26/16 03:30 Glucose (Fingerstick) 167mg/dL (70-99) 194mg/dL (70-99) 168mg/dL (70-99) White Blood Count 4.7x10^3/uL (4.0-11.0) Red Blood Count 3.09x10^6/uL (4.30-5.70) Hemoglobin 9.8g/dL (13.0-17.5) Hematocrit 28.3% (39.0-53.0) Mean Corpuscular Volume 92fL (79-100) Mean Corpuscular Hemoglobin 32pg (25-35) Mean Corpuscular Hemoglobin Concent 35g/dL (31-37) Red Cell Distribution Width 14.1% (11.5-14.5) Platelet Count 84x10^3/uL (140-400) Test 07/26/16 04:24 07/26/16 05:37 07/26/16 06:15 07/26/16 06:40 Glucose (Fingerstick) 143mg/dL (70-99) 112mg/dL (70-99) 125mg/dL (70-99) Prothrombin Time 17.9SEC (11.7-14.0) Prothromb Time International Ratio 1.6 (0.8-1.1) Activated Partial Thromboplast Time 55SEC (24-38) Sodium Level 149mmol/L (136-145) Potassium Level 3.8mmol/L (3.5-5.1) Chloride Level 114mmol/L (98-107) Carbon Dioxide Level 27mmol/L (21-32) Anion Gap 8 (6-14) Blood Urea Nitrogen 18mg/dL (8-26) Creatinine 1.4mg/dL (0.7-1.3) Estimated GFR (Cockcroft-Gault) 52.2 Glucose Level 117mg/dL (70-99) Calcium Level 9.0mg/dL (8.5-10.1) Magnesium Level 2.0mg/dL (1.8-2.4) Test 07/26/16 07:45 07/26/16 08:00 07/26/16 08:47 07/26/16 09:50 Glucose (Fingerstick) 148mg/dL (70-99) 145mg/dL (70-99) 143mg/dL (70-99) O2 Saturation 97% (92-99) Arterial Blood pH 7.59 (7.35-7.45) Arterial Blood pCO2 at Patient Temp 24mmHg (35-46) Arterial Blood pO2 at Patient Temp 94mmHg (75-108) Arterial Blood HCO3 22mmol/L (21-28) Arterial Blood Base Excess 1mmol/L (-3-3) FiO2 50 Test 07/26/16 10:57 Glucose (Fingerstick) 136mg/dL (70-99) Review of Systems Review of Systems heavily sedated PANTERA MARTINEZ MD Jul 26, 2016 11:08
[2016-07-26 11:12] LABS: HEMATOCRIT 25.2 % (39.0-53.0); HEMOGLOBIN 8.7 g/dL (13.0-17.5); RED BLOOD COUNT 2.78 x10^6/uL (4.30-5.70); RED CELL DISTRIBUTION WIDTH 14.6 % (11.5-14.5); WHITE BLOOD COUNT 5.1 x10^3/uL (4.0-11.0)
--- NOTE | 2016-07-26 11:17 | RESP ---
DATE OF SERVICE: 07/22/2016 The patient underwent spirometry, dated 07/22/2016. The FEV1 to FVC ratio was 76%, FEV1 was 97% of predicted at 3.2 liters, FVC was 4.27 liters at 97% of predicted. IMPRESSION: No significant airflow limitation noted on spirometry. VANESSA GREY MD DR: ANA/pato JOB#: [id number] / [id number]
[2016-07-26 11:21] LABS: CREATININE 1.2 mg/dL (0.7-1.3); GFR 62.4; POTASSIUM 3.7 mmol/L (3.5-5.1)
[2016-07-26 11:24] LABS: INR 1.7 (0.8-1.1); PROTHROMBIN TIME PATIENT 19.1 SEC (11.7-14.0)
[2016-07-26] MEDS ORDERED: SULFUR HEXAFLUORIDE MICROSPHR 25 MG VIAL. IVP ONE ×2 (11:29→11:45)
--- NOTE | 2016-07-26 11:34 | PDOC ---
CARDIO Progress Notes Date and Time Date of Service 07/26/2016 Time of Evaluation 1010 Subjective Subjective: Other (sedated; paralyzed ) Vitals Vitals Vital Signs Date Time Temp Pulse Resp B/P Pulse Ox O2 Delivery O2 Flow Rate FiO2 07/26/16 10:20 16 Ventilator 07/26/16 10:06 97 07/26/16 09:24 2.0 07/26/16 09:00 114 /68 07/26/16 09:00 99.6 99.6 Weight Weight [ ] Stability Assessment Stability Assess.: unstable for transfer (Intesive V. sign monit. req) Input and Output Intake and Output Intake and Output 07/26/16 07:00 Intake Total 5482.2 ml Output Total 1815 ml Balance 3667.2 ml IV Total 5482.2 ml Output Urine Total 1300 ml Chest Tube Drainage Total 515 ml Laboratory Labs Laboratory Tests Test 07/25/16 10:55 07/25/16 10:56 07/25/16 11:29 07/25/16 11:30 Bedside Hemoglobin (Calculated) 11.2g/dL (14-18) 11.9g/dL (14-18) Bedside Hematocrit 33% (37-52) 35% (37-52) Bedside Arterial pH 7.38 (7.35-7.45) 7.38 (7.35-7.45) Bedside Arterial pCO2 38mmHg (35-45) 34mmHg (35-45) Bedside Arterial pO2 392mmHg (75-100) 285mmHg (75-100) Bedside Arterial HCO3 23mmol/L (21-28) 21mmol/L (21-28) Bedside Arterial Total CO2 24mmol/L (21-32) 22mmol/L (21-32) Arterial Bld O2 Saturation (Measur) 100% (95-99) 100% (95-99) Bedside Arterial Blood Base Excess -2mmol/L (0-3) -5mmol/L (0-3) Bedside FiO2 80.0 70.0 Bedside Sodium 134mmol/L (135-145) 134mmol/L (135-145) Bedside Potassium 5.6mmol/L (3.5-5.0) 6.1mmol/L (3.5-5.0) Glucose Level 147mg/dL (70-99) 183mg/dL (70-99) Bedside Ionized Calcium (Giovani) 0.99mmol/L (1.13-1.32) 1.08mmol/L (1.13-1.32) Activated Clotting Time 603SEC (90-125) 478SEC (90-125) Test 07/25/16 11:57 07/25/16 11:59 07/25/16 12:30 07/25/16 12:32 Bedside Hemoglobin (Calculated) 11.6g/dL (14-18) 10.2g/dL (14-18) Bedside Hematocrit 34% (37-52) 30% (37-52) Bedside Arterial pH 7.40 (7.35-7.45) 7.39 (7.35-7.45) Bedside Arterial pCO2 37mmHg (35-45) 40mmHg (35-45) Bedside Arterial pO2 281mmHg (75-100) 266mmHg (75-100) Bedside Arterial HCO3 23mmol/L (21-28) 25mmol/L (21-28) Bedside Arterial Total CO2 24mmol/L (21-32) 26mmol/L (21-32) Arterial Bld O2 Saturation (Measur) 100% (95-99) 100% (95-99) Bedside Arterial Blood Base Excess -2mmol/L (0-3) 0mmol/L (0-3) Bedside FiO2 70.0 80.0 Bedside Sodium 135mmol/L (135-145) 134mmol/L (135-145) Bedside Potassium 5.9mmol/L (3.5-5.0) 5.2mmol/L (3.5-5.0) Glucose Level 196mg/dL (70-99) 174mg/dL (70-99) Bedside Ionized Calcium (Giovani) 1.07mmol/L (1.13-1.32) 1.45mmol/L (1.13-1.32) Activated Clotting Time 531SEC (90-125) 514SEC (90-125) Test 07/25/16 12:58 07/25/16 12:59 07/25/16 13:08 07/25/16 13:31 Bedside Hemoglobin (Calculated) 10.5g/dL (14-18) 10.5g/dL (14-18) Bedside Hematocrit 31% (37-52) 31% (37-52) Bedside Arterial pH 7.40 (7.35-7.45) 7.37 (7.35-7.45) Bedside Arterial pCO2 36mmHg (35-45) 34mmHg (35-45) Bedside Arterial pO2 412mmHg (75-100) 435mmHg (75-100) Bedside Arterial HCO3 22mmol/L (21-28) 20mmol/L (21-28) Bedside Arterial Total CO2 23mmol/L (21-32) 21mmol/L (21-32) Arterial Bld O2 Saturation (Measur) 100% (95-99) 100% (95-99) Bedside Arterial Blood Base Excess -3mmol/L (0-3) -5mmol/L (0-3) Bedside FiO2 100.0 100.0 Bedside Sodium 138mmol/L (135-145) 138mmol/L (135-145) Bedside Potassium 4.4mmol/L (3.5-5.0) 4.2mmol/L (3.5-5.0) Glucose Level 153mg/dL (70-99) 146mg/dL (70-99) Bedside Ionized Calcium (Giovani) 1.49mmol/L (1.13-1.32) 2.19mmol/L (1.13-1.32) Activated Clotting Time 125SEC (90-125) White Blood Count 12.7x10^3/uL (4.0-11.0) Hemoglobin 11.3g/dL (13.0-17.5) Hematocrit 32.7% (39.0-53.0) Platelet Count 104x10^3/uL (140-400) Prothrombin Time 22.0SEC (11.7-14.0) Prothromb Time International Ratio 2.1 (0.8-1.1) Activated Partial Thromboplast Time 39SEC (24-38) Fibrinogen 304mg/dL (200-440) Test 07/25/16 13:46 07/25/16 13:58 07/25/16 14:26 07/25/16 14:27 Activated Clotting Time 918SEC (90-125) 389SEC (90-125) Bedside Hemoglobin (Calculated) 7.8g/dL (14-18) 8.5g/dL (14-18) Bedside Hematocrit 23% (37-52) 25% (37-52) Bedside Arterial pH 7.36 (7.35-7.45) 7.34 (7.35-7.45) Bedside Arterial pCO2 36mmHg (35-45) 38mmHg (35-45) Bedside Arterial pO2 447mmHg (75-100) 361mmHg (75-100) Bedside Arterial HCO3 20mmol/L (21-28) 20mmol/L (21-28) Bedside Arterial Total CO2 22mmol/L (21-32) 22mmol/L (21-32) Arterial Bld O2 Saturation (Measur) 100% (95-99) 100% (95-99) Bedside Arterial Blood Base Excess -5mmol/L (0-3) -5mmol/L (0-3) Bedside FiO2 100.0 80.0 Bedside Sodium 140mmol/L (135-145) 142mmol/L (135-145) Bedside Potassium 3.6mmol/L (3.5-5.0) 3.9mmol/L (3.5-5.0) Glucose Level 240mg/dL (70-99) 194mg/dL (70-99) Bedside Ionized Calcium (Giovani) 1.64mmol/L (1.13-1.32) 1.44mmol/L (1.13-1.32) Test 07/25/16 14:56 07/25/16 14:57 07/25/16 15:25 07/25/16 15:26 Bedside Hemoglobin (Calculated) 8.2g/dL (14-18) 8.2g/dL (14-18) Bedside Hematocrit 24% (37-52) 24% (37-52) Bedside Arterial pH 7.44 (7.35-7.45) 7.42 (7.35-7.45) Bedside Arterial pCO2 37mmHg (35-45) 38mmHg (35-45) Bedside Arterial pO2 293mmHg (75-100) 250mmHg (75-100) Bedside Arterial HCO3 25mmol/L (21-28) 24mmol/L (21-28) Bedside Arterial Total CO2 26mmol/L (21-32) 25mmol/L (21-32) Arterial Bld O2 Saturation (Measur) 100% (95-99) 100% (95-99) Bedside Arterial Blood Base Excess 1mmol/L (0-3) 0mmol/L (0-3) Bedside FiO2 80.0 80.0 Bedside Sodium 144mmol/L (135-145) 142mmol/L (135-145) Bedside Potassium 3.8mmol/L (3.5-5.0) 3.8mmol/L (3.5-5.0) Glucose Level 175mg/dL (70-99) 159mg/dL (70-99) Bedside Ionized Calcium (Giovani) 1.34mmol/L (1.13-1.32) 1.87mmol/L (1.13-1.32) Activated Clotting Time 500SEC (90-125) 380SEC (90-125) Test 07/25/16 15:44 07/25/16 16:12 07/25/16 16:19 07/25/16 16:30 Activated Clotting Time > 1001SEC (90-125) 498SEC (90-125) Bedside Hemoglobin (Calculated) 8.8g/dL (14-18) 7.8g/dL (14-18) Bedside Hematocrit 26% (37-52) 23% (37-52) Bedside Arterial pH 7.38 (7.35-7.45) 7.30 (7.35-7.45) Bedside Arterial pCO2 36mmHg (35-45) 45mmHg (35-45) Bedside Arterial pO2 211mmHg (75-100) 393mmHg (75-100) Bedside Arterial HCO3 22mmol/L (21-28) 22mmol/L (21-28) Bedside Arterial Total CO2 23mmol/L (21-32) 23mmol/L (21-32) Arterial Bld O2 Saturation (Measur) 100% (95-99) 100% (95-99) Bedside Arterial Blood Base Excess -4mmol/L (0-3) -5mmol/L (0-3) Bedside FiO2 80.0 100.0 Bedside Sodium 145mmol/L (135-145) 145mmol/L (135-145) Bedside Potassium 3.7mmol/L (3.5-5.0) 3.6mmol/L (3.5-5.0) Glucose Level 170mg/dL (70-99) 185mg/dL (70-99) Bedside Ionized Calcium (Giovani) 1.78mmol/L (1.13-1.32) 1.66mmol/L (1.13-1.32) White Blood Count 11.8x10^3/uL (4.0-11.0) Hemoglobin 8.5g/dL (13.0-17.5) Hematocrit 24.9% (39.0-53.0) Platelet Count 59x10^3/uL (140-400) Prothrombin Time 33.3SEC (11.7-14.0) Prothromb Time International Ratio 3.5 (0.8-1.1) Activated Partial Thromboplast Time 49SEC (24-38) Fibrinogen 160mg/dL (200-440) Test 07/25/16 16:32 07/25/16 16:51 07/25/16 17:18 07/25/16 17:27 Activated Clotting Time 163SEC (90-125) Bedside Hemoglobin (Calculated) 6.8g/dL (14-18) 8.8g/dL (14-18) Bedside Hematocrit 20% (37-52) 26% (37-52) Bedside Arterial pH 7.36 (7.35-7.45) 7.27 (7.35-7.45) Bedside Arterial pCO2 34mmHg (35-45) 39mmHg (35-45) Bedside Arterial pO2 324mmHg (75-100) 311mmHg (75-100) Bedside Arterial HCO3 19mmol/L (21-28) 18mmol/L (21-28) Bedside Arterial Total CO2 20mmol/L (21-32) 19mmol/L (21-32) Arterial Bld O2 Saturation (Measur) 100% (95-99) 100% (95-99) Bedside Arterial Blood Base Excess -6mmol/L (0-3) -9mmol/L (0-3) Bedside FiO2 100.0 100.0 Bedside Sodium 146mmol/L (135-145) 147mmol/L (135-145) Bedside Potassium 3.1mmol/L (3.5-5.0) 3.2mmol/L (3.5-5.0) Glucose Level 235mg/dL (70-99) 228mg/dL (70-99) Bedside Ionized Calcium (Giovani) 1.26mmol/L (1.13-1.32) 1.55mmol/L (1.13-1.32) White Blood Count 11.8x10^3/uL (4.0-11.0) Hemoglobin 9.4g/dL (13.0-17.5) Hematocrit 27.3% (39.0-53.0) Platelet Count 92x10^3/uL (140-400) Prothrombin Time 26.3SEC (11.7-14.0) Prothromb Time International Ratio 2.6 (0.8-1.1) Activated Partial Thromboplast Time 80SEC (24-38) Test 07/25/16 18:25 07/25/16 18:28 07/25/16 19:33 07/25/16 20:43 White Blood Count 10.8x10^3/uL (4.0-11.0) Red Blood Count 2.88x10^6/uL (4.30-5.70) Hemoglobin 9.3g/dL (13.0-17.5) Hematocrit 27.1% (39.0-53.0) Mean Corpuscular Volume 94fL (79-100) Mean Corpuscular Hemoglobin 32pg (25-35) Mean Corpuscular Hemoglobin Concent 35g/dL (31-37) Red Cell Distribution Width 13.7% (11.5-14.5) Platelet Count 84x10^3/uL (140-400) Prothrombin Time 20.1SEC (11.7-14.0) Prothromb Time International Ratio 1.8 (0.8-1.1) Activated Partial Thromboplast Time 56SEC (24-38) O2 Saturation 98% (92-99) Arterial Blood pH 7.36 (7.35-7.45) Arterial Blood pCO2 at Patient Temp 41mmHg (35-46) Arterial Blood pO2 at Patient Temp 284mmHg (75-108) Arterial Blood HCO3 23mmol/L (21-28) Arterial Blood Base Excess -3mmol/L (-3-3) Oxyhemoglobin 97.1% Methemoglobin 0.8% (0.0-1.9) Carbon Monoxide, Quantitative 0.2% (0.0-1.9) FiO2 100 Sodium Level 153mmol/L (136-145) Potassium Level 3.5mmol/L (3.5-5.1) Chloride Level 109mmol/L (98-107) Carbon Dioxide Level 23mmol/L (21-32) Anion Gap 21 (6-14) Blood Urea Nitrogen 17mg/dL (8-26) Creatinine 1.6mg/dL (0.7-1.3) Estimated GFR (Cockcroft-Gault) 44.8 Glucose Level 203mg/dL (70-99) Calcium Level 11.2mg/dL (8.5-10.1) Magnesium Level 2.6mg/dL (1.8-2.4) Glucose (Fingerstick) 197mg/dL (70-99) 183mg/dL (70-99) 160mg/dL (70-99) Test 07/25/16 20:45 07/25/16 21:30 07/25/16 21:46 07/25/16 22:55 Prothrombin Time 17.8SEC (11.7-14.0) Prothromb Time International Ratio 1.6 (0.8-1.1) Activated Partial Thromboplast Time 40SEC (24-38) White Blood Count 5.1x10^3/uL (4.0-11.0) Red Blood Count 3.16x10^6/uL (4.30-5.70) Hemoglobin 10.1g/dL (13.0-17.5) Hematocrit 29.2% (39.0-53.0) Mean Corpuscular Volume 93fL (79-100) Mean Corpuscular Hemoglobin 32pg (25-35) Mean Corpuscular Hemoglobin Concent 34g/dL (31-37) Red Cell Distribution Width 14.2% (11.5-14.5) Platelet Count 75x10^3/uL (140-400) Glucose (Fingerstick) 155mg/dL (70-99) 148mg/dL (70-99) Test 07/25/16 23:59 07/26/16 00:15 07/26/16 01:01 07/26/16 02:04 Glucose (Fingerstick) 147mg/dL (70-99) 167mg/dL (70-99) 194mg/dL (70-99) Potassium Level 6.2mmol/L (3.5-5.1) Test 07/26/16 03:19 07/26/16 03:30 07/26/16 04:24 07/26/16 05:37 Glucose (Fingerstick) 168mg/dL (70-99) 143mg/dL (70-99) 112mg/dL (70-99) White Blood Count 4.7x10^3/uL (4.0-11.0) Red Blood Count 3.09x10^6/uL (4.30-5.70) Hemoglobin 9.8g/dL (13.0-17.5) Hematocrit 28.3% (39.0-53.0) Mean Corpuscular Volume 92fL (79-100) Mean Corpuscular Hemoglobin 32pg (25-35) Mean Corpuscular Hemoglobin Concent 35g/dL (31-37) Red Cell Distribution Width 14.1% (11.5-14.5) Platelet Count 84x10^3/uL (140-400) Test 07/26/16 06:15 07/26/16 06:40 07/26/16 07:45 07/26/16 08:00 Prothrombin Time 17.9SEC (11.7-14.0) Prothromb Time International Ratio 1.6 (0.8-1.1) Activated Partial Thromboplast Time 55SEC (24-38) Sodium Level 149mmol/L (136-145) Potassium Level 3.8mmol/L (3.5-5.1) Chloride Level 114mmol/L (98-107) Carbon Dioxide Level 27mmol/L (21-32) Anion Gap 8 (6-14) Blood Urea Nitrogen 18mg/dL (8-26) Creatinine 1.4mg/dL (0.7-1.3) Estimated GFR (Cockcroft-Gault) 52.2 Glucose Level 117mg/dL (70-99) Calcium Level 9.0mg/dL (8.5-10.1) Magnesium Level 2.0mg/dL (1.8-2.4) Glucose (Fingerstick) 125mg/dL (70-99) 148mg/dL (70-99) O2 Saturation 97% (92-99) Arterial Blood pH 7.59 (7.35-7.45) Arterial Blood pCO2 at Patient Temp 24mmHg (35-46) Arterial Blood pO2 at Patient Temp 94mmHg (75-108) Arterial Blood HCO3 22mmol/L (21-28) Arterial Blood Base Excess 1mmol/L (-3-3) FiO2 50 Test 07/26/16 08:47 07/26/16 09:50 Glucose (Fingerstick) 145mg/dL (70-99) 143mg/dL (70-99) Physical Exam HEENT: Other (facial edema) Chest: Other (chest incision open and covered with iodoban dressing; pooled drainage visible beneath dressing) Heart: S1S2, other (tele: atrial fib; 12 lead EKG earlier today - ? NSR) Abdomen: Soft N/T Extremities: Other (anasarca; right DP pulse palpable; left DP faintly palpable ) Neurology: other (sedated; paralyzed; oral ETT with vent) Assessment Assessment 1. STEMI troponin peaked @ 96.465 CABG on 07/25/2016 with FLETCHER to LAD; SVG to LAD; SVG to OM1 and SVG to RPDA VF arrest after chest closed; reopened and placed back on bypass then converted to LVAD (Impella) post-operative NM 2. cardiogenic shock currently with LVAD (Impella) PS decreased to 7; attempting to keep CVP ~ 14-15 with IVF 3. ischemic cardiomyopathy LVEF mildly depressed @ 45% on echo pre-op ? lower given physical findings per CTS 4. HTN meds as required 5. HLD statin therapy NERY DANGELO APRN Jul 26, 2016 11:34
[2016-07-26] MEDS: ASPIRIN 300 MG SUPP.RECT PR SCH (11:55)
[2016-07-26] MEDS: CHLORHEXIDINE 0.12% 15 ML MOUTHWASH. MM SCH ×2 (11:55→21:12)
[2016-07-26] MEDS ORDERED: POTASSIUM CHLORIDE 20MEQ 50 ML IV ONE (12:00)
--- NOTE | 2016-07-26 13:35 | CARD ---
APPROVED REPORT EXAM: LIMITED Two-dimensional echocardiogram with contrast. Other Information Quality : Technically Limited Rhythm : NSRTechnically limited study due to recent CABG. INDICATION Post op MT Echo Enhancing Agent Indication: Endocardial border delineation Agent/Amount Used: Lumason 2mL LEFT VENTRICLE The left ventricle is normal size. There is normal left ventricular wall thickness. Left ventricle sy stolic function is severely impaired. The Ejection Fraction is 20%. There is severe global hypokinesi s of the left ventricle. The distal 2/3 of the LV is severely hypokinetic with akinesis of the mid to distal LAD and apex. No left ventricle thrombus noted on this study. GREAT VESSELS Not evaluated PERICARDIAL EFFUSION There is no evidence of significant pericardial effusion. Critical Notification Date: 07/26/2016 Time: 11:45 Other Discipline : Osiris Quevedo APRN Critical Value: Yes <Conclusion> EF 20% There is severe global hypokinesis of the left ventricle. The distal 2/3 of the LV is severely hypoki netic with akinesis of the mid to distal LAD and apex. No left ventricle thrombus noted on this study. There is no evidence of significant pericardial effusion. Limited post-operative TTE.
[2016-07-26] MEDS: INSULIN REGULAR VIAL 150 UNIT in 0.9 % SODIUM CHLORIDE 150ML 150 ML IV PRN (14:50)
[2016-07-26 16:31] LABS: INR 1.5 (0.8-1.1); PROTHROMBIN TIME PATIENT 17.1 SEC (11.7-14.0)
--- NOTE | 2016-07-26 18:19 | PDOC ---
Progress Note Subjective Subjective Status post CABG 3 for severe ischemic cardiomyopathy, with early postoperative myocardial infarction/V. fib, leading to cardiogenic shock, placement of the vein graft to the LAD and vein patella for mechanical circulatory support and open chest. He remained stable over the past 24 hours. He is normotensive and in sinus tachycardia. Excellent urine output and creatinine normalizing. Minimal output from chest tubes. In patella with excellent flows at 3 L/m. Patient's sedated and paralyzed. Both pupils are reactive. Minimal vent settings. ROS ROS Unable to obtain-intubated/sedated Vital Sign Vital Signs Vital Signs Date Time Temp Pulse Resp B/P Pulse Ox O2 Delivery O2 Flow Rate FiO2 07/26/16 17:33 92 Ventilator 07/26/16 17:00 98.6 112 16 97/70 98.6 07/26/16 09:24 2.0 Physical Exam PHYSICAL EXAM GENERAL: Intubated sedated HEENT: Pupils reactive NECK: Supple LUNGS: Clear HEART: S1S2 CHEST: Open sternotomy dressings intact with some underlying blood ABD: Soft, NT EXT: No edema, no cyanosis [employer]: Intubated sedated SKIN: No rash IV: ok Labs Lab Laboratory Tests Test 07/25/16 18:25 07/25/16 18:28 07/25/16 19:33 07/25/16 20:43 White Blood Count 10.8x10^3/uL (4.0-11.0) Red Blood Count 2.88x10^6/uL (4.30-5.70) Hemoglobin 9.3g/dL (13.0-17.5) Hematocrit 27.1% (39.0-53.0) Mean Corpuscular Volume 94fL (79-100) Mean Corpuscular Hemoglobin 32pg (25-35) Mean Corpuscular Hemoglobin Concent 35g/dL (31-37) Red Cell Distribution Width 13.7% (11.5-14.5) Platelet Count 84x10^3/uL (140-400) Prothrombin Time 20.1SEC (11.7-14.0) Prothromb Time International Ratio 1.8 (0.8-1.1) Activated Partial Thromboplast Time 56SEC (24-38) O2 Saturation 98% (92-99) Arterial Blood pH 7.36 (7.35-7.45) Arterial Blood pCO2 at Patient Temp 41mmHg (35-46) Arterial Blood pO2 at Patient Temp 284mmHg (75-108) Arterial Blood HCO3 23mmol/L (21-28) Arterial Blood Base Excess -3mmol/L (-3-3) Oxyhemoglobin 97.1% Methemoglobin 0.8% (0.0-1.9) Carbon Monoxide, Quantitative 0.2% (0.0-1.9) FiO2 100 Sodium Level 153mmol/L (136-145) Potassium Level 3.5mmol/L (3.5-5.1) Chloride Level 109mmol/L (98-107) Carbon Dioxide Level 23mmol/L (21-32) Anion Gap 21 (6-14) Blood Urea Nitrogen 17mg/dL (8-26) Creatinine 1.6mg/dL (0.7-1.3) Estimated GFR (Cockcroft-Gault) 44.8 Glucose Level 203mg/dL (70-99) Calcium Level 11.2mg/dL (8.5-10.1) Magnesium Level 2.6mg/dL (1.8-2.4) Glucose (Fingerstick) 197mg/dL (70-99) 183mg/dL (70-99) 160mg/dL (70-99) Test 07/25/16 20:45 07/25/16 21:30 07/25/16 21:46 07/25/16 22:55 Prothrombin Time 17.8SEC (11.7-14.0) Prothromb Time International Ratio 1.6 (0.8-1.1) Activated Partial Thromboplast Time 40SEC (24-38) White Blood Count 5.1x10^3/uL (4.0-11.0) Red Blood Count 3.16x10^6/uL (4.30-5.70) Hemoglobin 10.1g/dL (13.0-17.5) Hematocrit 29.2% (39.0-53.0) Mean Corpuscular Volume 93fL (79-100) Mean Corpuscular Hemoglobin 32pg (25-35) Mean Corpuscular Hemoglobin Concent 34g/dL (31-37) Red Cell Distribution Width 14.2% (11.5-14.5) Platelet Count 75x10^3/uL (140-400) Glucose (Fingerstick) 155mg/dL (70-99) 148mg/dL (70-99) Test 07/25/16 23:59 07/26/16 00:15 07/26/16 01:01 07/26/16 02:04 Glucose (Fingerstick) 147mg/dL (70-99) 167mg/dL (70-99) 194mg/dL (70-99) Potassium Level 6.2mmol/L (3.5-5.1) Test 07/26/16 03:19 07/26/16 03:30 07/26/16 04:24 07/26/16 05:37 Glucose (Fingerstick) 168mg/dL (70-99) 143mg/dL (70-99) 112mg/dL (70-99) White Blood Count 4.7x10^3/uL (4.0-11.0) Red Blood Count 3.09x10^6/uL (4.30-5.70) Hemoglobin 9.8g/dL (13.0-17.5) Hematocrit 28.3% (39.0-53.0) Mean Corpuscular Volume 92fL (79-100) Mean Corpuscular Hemoglobin 32pg (25-35) Mean Corpuscular Hemoglobin Concent 35g/dL (31-37) Red Cell Distribution Width 14.1% (11.5-14.5) Platelet Count 84x10^3/uL (140-400) Test 07/26/16 06:15 07/26/16 06:40 07/26/16 07:45 07/26/16 08:00 Prothrombin Time 17.9SEC (11.7-14.0) Prothromb Time International Ratio 1.6 (0.8-1.1) Activated Partial Thromboplast Time 55SEC (24-38) Sodium Level 149mmol/L (136-145) Potassium Level 3.8mmol/L (3.5-5.1) Chloride Level 114mmol/L (98-107) Carbon Dioxide Level 27mmol/L (21-32) Anion Gap 8 (6-14) Blood Urea Nitrogen 18mg/dL (8-26) Creatinine 1.4mg/dL (0.7-1.3) Estimated GFR (Cockcroft-Gault) 52.2 Glucose Level 117mg/dL (70-99) Calcium Level 9.0mg/dL (8.5-10.1) Magnesium Level 2.0mg/dL (1.8-2.4) Glucose (Fingerstick) 125mg/dL (70-99) 148mg/dL (70-99) O2 Saturation 97% (92-99) Arterial Blood pH 7.59 (7.35-7.45) Arterial Blood pCO2 at Patient Temp 24mmHg (35-46) Arterial Blood pO2 at Patient Temp 94mmHg (75-108) Arterial Blood HCO3 22mmol/L (21-28) Arterial Blood Base Excess 1mmol/L (-3-3) FiO2 50 Test 07/26/16 08:47 07/26/16 09:50 07/26/16 10:57 07/26/16 11:00 Glucose (Fingerstick) 145mg/dL (70-99) 143mg/dL (70-99) 136mg/dL (70-99) White Blood Count 5.1x10^3/uL (4.0-11.0) Red Blood Count 2.78x10^6/uL (4.30-5.70) Hemoglobin 8.7g/dL (13.0-17.5) Hematocrit 25.2% (39.0-53.0) Mean Corpuscular Volume 91fL (79-100) Mean Corpuscular Hemoglobin 31pg (25-35) Mean Corpuscular Hemoglobin Concent 35g/dL (31-37) Red Cell Distribution Width 14.6% (11.5-14.5) Platelet Count 67x10^3/uL (140-400) Prothrombin Time 19.1SEC (11.7-14.0) Prothromb Time International Ratio 1.7 (0.8-1.1) Activated Partial Thromboplast Time 54SEC (24-38) Potassium Level 3.7mmol/L (3.5-5.1) Blood Urea Nitrogen 17mg/dL (8-26) Creatinine 1.2mg/dL (0.7-1.3) Estimated GFR (Cockcroft-Gault) 62.4 Test 07/26/16 12:02 07/26/16 13:09 07/26/16 14:12 07/26/16 15:14 Glucose (Fingerstick) 128mg/dL (70-99) 121mg/dL (70-99) 155mg/dL (70-99) 137mg/dL (70-99) Test 07/26/16 16:00 07/26/16 16:13 Prothrombin Time 17.1SEC (11.7-14.0) Prothromb Time International Ratio 1.5 (0.8-1.1) Activated Partial Thromboplast Time 45SEC (24-38) Potassium Level 4.5mmol/L (3.5-5.1) Glucose (Fingerstick) 138mg/dL (70-99) Objective Assessment POD#1 s/p CABG 3 for severe ischemic cardiomyopathy, with early postoperative myocardial infarction/V. fib, leading to cardiogenic shock, placement of the vein graft to the LAD and vein patella for mechanical circulatory support and open chest. He remaines stable over the past 24 hours. He is normotensive and in sinus tachycardia. Excellent urine output and creatinine normalizing. Minimal output from chest tubes. Implella with excellent flows at 3 L/m. Patient is sedated and paralyzed. Both pupils are reactive. Minimal vent settings. Plan Plan of Care Wean Impella to 2 lit/hr Keep dopamine at 5 mcg Keep sedated and paralyzed Continue amiodarone drip Plan to return to the operating room tomorrow to attempt to close sternotomy. OLGA LOPEZ MD Jul 26, 2016 18:19
[2016-07-26] MEDS ORDERED: DEXTROSE 5% IV ONE (18:30)
[2016-07-26] MEDS ORDERED: HEPARIN IV ONE (18:30)
[2016-07-26] MEDS ORDERED: AMIODARONE 900 MG in IV DEXTROSE 5% 500 ML IV PRN (19:15)
[2016-07-26] MEDS ORDERED: AMIODARONE 150 MG in IV DEXTROSE 5% 100 ML IV ONE (19:15)
[2016-07-26] MEDS ORDERED: MILRINONE 20MG/100ML PREMIX 100 ML IV PRN (19:45)
[2016-07-26 20:53] LABS: HEMATOCRIT 30.7 % (39.0-53.0); HEMOGLOBIN 10.3 g/dL (13.0-17.5); RED BLOOD COUNT 3.32 x10^6/uL (4.30-5.70); RED CELL DISTRIBUTION WIDTH 14.7 % (11.5-14.5); WHITE BLOOD COUNT 10.6 x10^3/uL (4.0-11.0)
[2016-07-26] MEDS: ATORVASTATIN CALCIUM 40 MG TABLET. PO SCH (21:00)
[2016-07-26] MEDS: NOREPINEPHRINE 8 MG in IV NORMAL SALINE 250 ML IV PRN (21:03)
[2016-07-26 21:14] LABS: FIBRINOGEN 295 mg/dL (200-440)
[2016-07-26] MEDS: MINERAL OIL/PETROLATUM,WHITE OPHTH OINT 3.5GM TUBE. OU SCH (21:16)
[2016-07-26 21:17] LABS: PARTIAL THROMBOPLASTIN TIME 45 SEC (24-38)
[2016-07-26] MEDS ORDERED: CALCIUM CHLORIDE 2,000 MG in IV NORMAL SALINE 100ML 100 ML IV ONE (21:30)
[2016-07-26] MEDS ORDERED: DIGOXIN IV 500 MCG/2 ML AMPUL. IV ONE (21:45)
[2016-07-27] VITALS (26 sets, daily range): BP systolic 86–200; BP diastolic 59–142
[2016-07-27] MEDS: MIDAZOLAM PREMIX 100 ML IV PRN (02:26)
[2016-07-27] MEDS: AMIODARONE 450 MG in IV DEXTROSE 5% 250 ML IV PRN ×4 (04:55→21:37)
[2016-07-27] MEDS: PIPERACILLIN/TAZOBACTAM 3.375 GM in IV NORMAL SALINE 50ML 50 ML IV SCH ×3 (06:07→17:53)
[2016-07-27] MEDS ORDERED: PROCHLORPERAZINE 10 MG/2 ML VIAL. IV PRN (07:00)
[2016-07-27] MEDS ORDERED: HYDROmorphone 2 MG/ML VIAL IV PRN (07:00)
[2016-07-27] MEDS ORDERED: fentaNYL PF VIAL 100 MCG/2 ML VIAL IV PRN ×2 (07:00)
[2016-07-27] MEDS ORDERED: ONDANSETRON PF 4 MG/2 ML VIAL. IV PRN (07:00)
[2016-07-27] MEDS ORDERED: IV RINGERS,LACTATED 1000ML 1,000 ML IV SCH (07:00)
[2016-07-27] MEDS ORDERED: MORPHINE SULFATE 2 MG/ML DISP.SYRIN. IV PRN (07:00)
[2016-07-27] MEDS ORDERED: LIDOCAINE 1% 1 ML SYRINGE. ID PRN (07:00)
[2016-07-27 07:31] LABS: HEMATOCRIT 27.7 % (39.0-53.0); HEMOGLOBIN 9.7 g/dL (13.0-17.5); RED BLOOD COUNT 3.05 x10^6/uL (4.30-5.70); RED CELL DISTRIBUTION WIDTH 14.8 % (11.5-14.5); WHITE BLOOD COUNT 9.2 x10^3/uL (4.0-11.0)
[2016-07-27] MEDS: ASPIRIN ENTERIC COATED 325 MG TABLET.DR. PO SCH (08:00)
[2016-07-27 08:17] LABS: CALCIUM 8.7 mg/dL (8.5-10.1); MAGNESIUM 1.7 mg/dL (1.8-2.4); POTASSIUM 4.5 mmol/L (3.5-5.1)
[2016-07-27 08:57] LABS: HCO3 ABG 23 mmol/L (21-28); PCO2 ABG 37 mmHg (35-46); PH ABG 7.41 (7.35-7.45); PO2 ABG 81 mmHg (75-108); SAT O2 ABG 95 % (92-99)
[2016-07-27 08:59] LABS: FIO2 ABG 60
[2016-07-27] MEDS: DOCUSATE SODIUM 100 MG CAPSULE. PO SCH (09:00)
--- NOTE | 2016-07-27 10:37 | PDOC ---
PROGRESS NOTES Chief Complaint Chief Complaint Chest pain STEMI 1. STEMI: 3-vessel dz by cardiac cath (07/20/16). s/p CABG on 07/25/2016 : FLETCHER to LAD; SVG to LAD; SVG to OM1 and SVG to RPDA. VF arrest after chest closed; reopened and placed back on bypass then converted to LVAD. d/w Dr Micha doherty 2. cardiogenic shock: post op, on LVAD. 3. Cardiomyopathy: EF 455 pre-op, rpt echo today: 20% 4. Afib: rate controlled on amiodarone gtt 5. HTN: meds as tolerated; currently on pressors 6. HLD: on statin 7. 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[employer]IC[employer]: Intubated sedated SKIN: No rash IV: ok General: Other (sedated, intubated, immobilized on vec) Heart: Other (irregular) Lungs: Clear, Other (midline incision covered with bloody gauze) Abdomen: Soft, No tenderness Extremities: Other (+ edema x4) Skin: No rashes Labs LABS Laboratory Tests Test 07/26/16 10:57 07/26/16 11:00 07/26/16 12:02 07/26/16 13:09 Glucose (Fingerstick) 136mg/dL (70-99) 128mg/dL (70-99) 121mg/dL (70-99) White Blood Count 5.1x10^3/uL (4.0-11.0) Red Blood Count 2.78x10^6/uL (4.30-5.70) Hemoglobin 8.7g/dL (13.0-17.5) Hematocrit 25.2% (39.0-53.0) Mean Corpuscular Volume 91fL (79-100) Mean Corpuscular Hemoglobin 31pg (25-35) Mean Corpuscular Hemoglobin Concent 35g/dL (31-37) Red Cell Distribution Width 14.6% (11.5-14.5) Platelet Count 67x10^3/uL (140-400) Prothrombin Time 19.1SEC (11.7-14.0) Prothromb Time International Ratio 1.7 (0.8-1.1) Activated Partial Thromboplast Time 54SEC (24-38) Potassium Level 3.7mmol/L (3.5-5.1) Blood Urea Nitrogen 17mg/dL (8-26) Creatinine 1.2mg/dL (0.7-1.3) Estimated GFR (Cockcroft-Gault) 62.4 Test 07/26/16 14:12 07/26/16 15:14 07/26/16 16:00 07/26/16 16:13 Glucose (Fingerstick) 155mg/dL (70-99) 137mg/dL (70-99) 138mg/dL (70-99) Prothrombin Time 17.1SEC (11.7-14.0) Prothromb Time International Ratio 1.5 (0.8-1.1) Activated Partial Thromboplast Time 45SEC (24-38) Potassium Level 4.5mmol/L (3.5-5.1) Test 07/26/16 17:21 07/26/16 18:21 07/26/16 19:35 07/26/16 20:40 Glucose (Fingerstick) 161mg/dL (70-99) 143mg/dL (70-99) 185mg/dL (70-99) White Blood Count 10.6x10^3/uL (4.0-11.0) Red Blood Count 3.32x10^6/uL (4.30-5.70) Hemoglobin 10.3g/dL (13.0-17.5) Hematocrit 30.7% (39.0-53.0) Mean Corpuscular Volume 92fL (79-100) Mean Corpuscular Hemoglobin 31pg (25-35) Mean Corpuscular Hemoglobin Concent 34g/dL (31-37) Red Cell Distribution Width 14.7% (11.5-14.5) Platelet Count 91x10^3/uL (140-400) Activated Partial Thromboplast Time 45SEC (24-38) Fibrinogen 295mg/dL (200-440) Test 07/26/16 20:45 07/26/16 21:59 07/26/16 23:09 07/27/16 00:04 Glucose (Fingerstick) 185mg/dL (70-99) 149mg/dL (70-99) 133mg/dL (70-99) 136mg/dL (70-99) Test 07/27/16 00:30 07/27/16 01:07 07/27/16 02:10 07/27/16 04:00 Activated Partial Thromboplast Time 45SEC (24-38) 43SEC (24-38) Glucose (Fingerstick) 132mg/dL (70-99) 134mg/dL (70-99) Test 07/27/16 04:23 07/27/16 04:50 07/27/16 05:20 07/27/16 06:25 Glucose (Fingerstick) 124mg/dL (70-99) 132mg/dL (70-99) 143mg/dL (70-99) White Blood Count 9.2x10^3/uL (4.0-11.0) Red Blood Count 3.05x10^6/uL (4.30-5.70) Hemoglobin 9.7g/dL (13.0-17.5) Hematocrit 27.7% (39.0-53.0) Mean Corpuscular Volume 91fL (79-100) Mean Corpuscular Hemoglobin 32pg (25-35) Mean Corpuscular Hemoglobin Concent 35g/dL (31-37) Red Cell Distribution Width 14.8% (11.5-14.5) Platelet Count 80x10^3/uL (140-400) Sodium Level 142mmol/L (136-145) Potassium Level 4.5mmol/L (3.5-5.1) Chloride Level 111mmol/L (98-107) Carbon Dioxide Level 26mmol/L (21-32) Anion Gap 5 (6-14) Blood Urea Nitrogen 15mg/dL (8-26) Creatinine 1.0mg/dL (0.7-1.3) Estimated GFR (Cockcroft-Gault) 77.0 Glucose Level 127mg/dL (70-99) Calcium Level 8.7mg/dL (8.5-10.1) Magnesium Level 1.7mg/dL (1.8-2.4) Test 07/27/16 08:00 O2 Saturation 95% (92-99) Arterial Blood pH 7.41 (7.35-7.45) Arterial Blood pCO2 at Patient Temp 37mmHg (35-46) Arterial Blood pO2 at Patient Temp 81mmHg (75-108) Arterial Blood HCO3 23mmol/L (21-28) Arterial Blood Base Excess -2mmol/L (-3-3) FiO2 60 Review of Systems Review of Systems intubated, sedated PANTERA MARTINEZ MD Jul 27, 2016 10:37
[2016-07-27] MEDS: MAGNESIUM SULFATE 1GM 100 ML IV PRN (10:59)
--- NOTE | 2016-07-27 12:28 | PDOC ---
CARDIO Progress Notes Date and Time Date of Service 07/27/2016 Time of Evaluation 1212 Subjective Subjective: Other (sedated/paralyzed) Vitals Vitals Vital Signs Date Time Temp Pulse Resp B/P Pulse Ox O2 Delivery O2 Flow Rate FiO2 07/27/16 12:00 Mechanical Ventilator 07/27/16 10:00 99.5 120 16 106/94 98 99.5 07/26/16 09:24 2.0 Weight Weight [ ] Stability Assessment Stability Assess.: unstable for transfer Input and Output Intake and Output Intake and Output 07/27/16 07:00 Intake Total 8640.86 ml Output Total 2250 ml Balance 6390.86 ml IV Total 8000.86 ml Blood Product 640 ml Output Urine Total 1620 ml Chest Tube Drainage Total 630 ml Laboratory Labs Laboratory Tests Test 07/26/16 13:09 07/26/16 14:12 07/26/16 15:14 07/26/16 16:00 Glucose (Fingerstick) 121mg/dL (70-99) 155mg/dL (70-99) 137mg/dL (70-99) Prothrombin Time 17.1SEC (11.7-14.0) Prothromb Time International Ratio 1.5 (0.8-1.1) Activated Partial Thromboplast Time 45SEC (24-38) Potassium Level 4.5mmol/L (3.5-5.1) Test 07/26/16 16:13 07/26/16 17:21 07/26/16 18:21 07/26/16 19:35 Glucose (Fingerstick) 138mg/dL (70-99) 161mg/dL (70-99) 143mg/dL (70-99) 185mg/dL (70-99) Test 07/26/16 20:40 07/26/16 20:45 07/26/16 21:59 07/26/16 23:09 White Blood Count 10.6x10^3/uL (4.0-11.0) Red Blood Count 3.32x10^6/uL (4.30-5.70) Hemoglobin 10.3g/dL (13.0-17.5) Hematocrit 30.7% (39.0-53.0) Mean Corpuscular Volume 92fL (79-100) Mean Corpuscular Hemoglobin 31pg (25-35) Mean Corpuscular Hemoglobin Concent 34g/dL (31-37) Red Cell Distribution Width 14.7% (11.5-14.5) Platelet Count 91x10^3/uL (140-400) Activated Partial Thromboplast Time 45SEC (24-38) Fibrinogen 295mg/dL (200-440) Glucose (Fingerstick) 185mg/dL (70-99) 149mg/dL (70-99) 133mg/dL (70-99) Test 07/27/16 00:04 07/27/16 00:30 07/27/16 01:07 07/27/16 02:10 Glucose (Fingerstick) 136mg/dL (70-99) 132mg/dL (70-99) 134mg/dL (70-99) Activated Partial Thromboplast Time 45SEC (24-38) Test 07/27/16 04:00 07/27/16 04:23 07/27/16 04:50 07/27/16 05:20 Activated Partial Thromboplast Time 43SEC (24-38) Glucose (Fingerstick) 124mg/dL (70-99) 132mg/dL (70-99) White Blood Count 9.2x10^3/uL (4.0-11.0) Red Blood Count 3.05x10^6/uL (4.30-5.70) Hemoglobin 9.7g/dL (13.0-17.5) Hematocrit 27.7% (39.0-53.0) Mean Corpuscular Volume 91fL (79-100) Mean Corpuscular Hemoglobin 32pg (25-35) Mean Corpuscular Hemoglobin Concent 35g/dL (31-37) Red Cell Distribution Width 14.8% (11.5-14.5) Platelet Count 80x10^3/uL (140-400) Sodium Level 142mmol/L (136-145) Potassium Level 4.5mmol/L (3.5-5.1) Chloride Level 111mmol/L (98-107) Carbon Dioxide Level 26mmol/L (21-32) Anion Gap 5 (6-14) Blood Urea Nitrogen 15mg/dL (8-26) Creatinine 1.0mg/dL (0.7-1.3) Estimated GFR (Cockcroft-Gault) 77.0 Glucose Level 127mg/dL (70-99) Calcium Level 8.7mg/dL (8.5-10.1) Magnesium Level 1.7mg/dL (1.8-2.4) Test 07/27/16 06:25 07/27/16 08:00 Glucose (Fingerstick) 143mg/dL (70-99) O2 Saturation 95% (92-99) Arterial Blood pH 7.41 (7.35-7.45) Arterial Blood pCO2 at Patient Temp 37mmHg (35-46) Arterial Blood pO2 at Patient Temp 81mmHg (75-108) Arterial Blood HCO3 23mmol/L (21-28) Arterial Blood Base Excess -2mmol/L (-3-3) FiO2 60 Physical Exam Chest: Other (remains with oral ETT; mech vent; chest open with Impella LVAD) LUNGS: Other (coarse, diminished) Heart: S1S2, irregularly irregular, other (back into atrial fib yesterday evening; rates 110 - 135) Abdomen: Other (soft) Extremities: Other (anasarca; DP/PT pulses by Doppler) Neurology: other (sedated/paralyzed/mech vent) Other Exams - platt cath remains in situ due to critical illness Assessment Assessment 1. STEMI troponin peaked @ 96.465 CABG on 07/25/2016 with FLETCHER to LAD; SVG to LAD; SVG to OM1 and SVG to RPDA - ? attempt to close chest today VF arrest after chest closed; reopened and placed back on bypass then converted to LVAD (Impella) post-operative NV 2. cardiogenic shock currently with LVAD (Impella) and vasopressor support PS decreased to 6 later in the day; attempting to keep CVP ~ 14-15 with IVF echo yesterday with severe global hypokinesis of the left ventricle distal 2/3 of the LV is severely hypokinetic with akinesis of the mid to distal LAD and apex LVEF depressed at about 20% 3. ischemic cardiomyopathy LVEF mildly depressed @ 45% on echo pre-op 4. HTN BP labile; varying requirements for vasopressive support 5. HLD statin therapy 6. atrial fib chronic back in Afib yesterday evening; treated with digoxin IV without significant response hypomagnesemia treated; NERY REINA APRN Jul 27, 2016 12:27
[2016-07-27] MEDS ORDERED: VANCOMYCIN 10GM VIAL for OR. CEMENT ONE (12:30)
[2016-07-27] MEDS ORDERED: ROCURONIUM 100 MG/10 ML VIAL. ONE (12:32)
[2016-07-27] MEDS: FAMOTIDINE 20 MG/2 ML VIAL IVP SCH (12:36)
[2016-07-27] MEDS: ASPIRIN 300 MG SUPP.RECT PR SCH (12:36)
[2016-07-27] MEDS: MINERAL OIL/PETROLATUM,WHITE OPHTH OINT 3.5GM TUBE. OU SCH (12:37)
[2016-07-27] MEDS: CHLORHEXIDINE 0.12% 15 ML MOUTHWASH. MM SCH (12:37)
[2016-07-27] MEDS ORDERED: PHENYLEPHRINE in 0.9% NACL PF 1 MG/10 ML DISP.SYRIN. IV ONE (14:18)
[2016-07-27 15:19] LABS: HEMATOCRIT 23.8 % (39.0-53.0); HEMOGLOBIN 7.9 g/dL (13.0-17.5); WHITE BLOOD COUNT 8.4 x10^3/uL (4.0-11.0)
[2016-07-27 15:29] LABS: INR 2.5 (0.8-1.1); PROTHROMBIN TIME PATIENT 25.8 SEC (11.7-14.0)
[2016-07-27 15:40] LABS: ART BE ISTAT -5 mmol/L (0-3); ART GLUC ISTAT 145 mg/dL (70-99); ART HCO3 ISTAT 21 mmol/L (21-28); ART HCT ISTAT 21 % (37-52); ART HGB ISTAT 7.1 g/dL (14-18); ART ION CA ISTAT 1.26 mmol/L (1.13-1.32); ART K ISTAT 4.1 mmol/L (3.5-5.0); ART NA ISTAT 141 mmol/L (135-145); ART PCO2 ISTAT 40 mmHg (35-45); ART PH ISTAT 7.32 (7.35-7.45); ART PO2 ISTAT 85 mmHg (75-100); ART SAT O2 SAT 96 % (95-99); ART TCO2 ISTAT 22 mmol/L (21-32); TOSPEC ART
--- NOTE | 2016-07-27 15:54 | PDOC ---
BRIEF OPERATIVE NOTE Date: Jul 27, 2016 Pre-Op Diagnosis S/p CABG x 3 S/p left ventricular assist device (Impella 3.0) Cardiogenic shock Severe three-vessel coronary artery disease ST elevation myocardial infarction Severe ischemic cardiomyopathy Chronic atrial fibrillation Hypertension Post-Op Diagnosis S/p CABG x 3 S/p left ventricular assist device (Impella 3.0) Cardiogenic shock Severe three-vessel coronary artery disease ST elevation myocardial infarction Severe ischemic cardiomyopathy Chronic atrial fibrillation Hypertension Procedure Performed Mediastinal washout and closure of sternotomy Surgeon Olga Lopez MD Tare Weigher RAFITA Guallpa RNFA Anesthesia Type: General Blood Loss 1000 mls IV Fluid 1 unit PRBCs Urine Output N/A Specimens Obtained No Findings Approximately 1 L of blood clots in the mediastinum and pericardium Complications None OLGA LOPEZ MD Jul 27, 2016 15:54
--- NOTE | 2016-07-27 16:02 | RAD ---
Portable AP supine view CXR: Clinical indications: Postoperative study for count. Comparison: July 25, 2016. Findings: ET tube is in place and the tip is seen 1 cm above the level of the clara. NG tube is in place and the tip is seen within the fundus of the stomach. Chest tubes are in place and no pneumothorax is seen. Intra-arterial vascular device is seen within the thoracic aorta extending down into the left ventricle. Sternotomy is now evident. Small right-sided pleural effusion is now seen. No significant pulmonary edema is seen. No pneumothorax is evident. The heart size and mediastinum are stable. Impression: Right-sided pleural effusion..
--- NOTE | 2016-07-27 16:03 | PDOC4 ---
Operative Note Operative Note Date July 27, 2016 Preoperative diagnosis S/p CABG x 3 S/p left ventricular assist device (Impella 3.0) Cardiogenic shock Severe three-vessel coronary artery disease ST elevation myocardial infarction Severe ischemic cardiomyopathy Chronic atrial fibrillation Hypertension Postoperative diagnosis S/p CABG x 3 S/p left ventricular assist device (Impella 3.0) Cardiogenic shock Severe three-vessel coronary artery disease ST elevation myocardial infarction Severe ischemic cardiomyopathy Chronic atrial fibrillation Hypertension Procedure Mediastinal washout and closure of sternotomy Surgeon Olga Lopez MD Rehab Therapist RAFITA Guallpa RNFA Anesthesia General Blood loss 1000 mls IV fluids 1 unit PRBCs Urine output N/A Specimens obtained No Findings Approximately 1 L of blood clots in the mediastinum and pericardium Complications None Indications Mr. Alvarado is a 56-year-old male who is postoperative day 2 status post CABG 3 for a STEMI causing severe ischemic cardiomyopathy. At completion of the procedure the patient developed ventricular fibrillation and the sternotomy was reopened and cardia pulmonary bypass reestablished. I then placed a vein graft on the LAD and a left ventricular assist device (Impela) and left his chest open. Over the past 48 hours his cardiac function has overall been stable. He has no end-organ dysfunction. He has been sedated and paralyzed. I decided today to go back to the operating room and attempt to close his sternotomy. Informed consent was obtained from the patient's spouse who agreed to proceed. Operation The patient was transferred from the ICU intubated and sedated and placed supine on the operating table. A timeout was performed. Chlorhexidine was applied onto the dressings which were then carefully removed. The patient was again prepped and draped in a sterile fashion. The previously placed Esmarch was removed. We initially encountered approximately 1 L of blood clots in the anterior mediastinum and pericardium. These were carefully removed. The mediastinum and pericardium were thoroughly washed out with warm antibiotic solution. The RV function was normal. The distal LV and the apex were akinetic. The grafts were patent. Hemostasis was achieved on the pericardium, so cutaneous tissues and bone marrow using vancomycin paste. #7 steel wires were used to close the sternotomy incision. The patient tolerated the closure without any effects on his hemodynamics. The subcutaneous tissues and fascia were closed with 0 Vicryl. This obtaining his fat was reapproximated with 2-0 Vicryl and the epidermis with 4-0 Monocryl. Sterile dressing was applied onto the incision. A transesophageal echocardiogram was performed and demonstrated an ejection fraction of 25% which is slightly better compared to an EF 20% yesterday. The lateral wall and base of the LV functioning normally. The anterior wall is hypokinetic and the distal LV and apex are akinetic. The patient was transferred back to the intensive care unit in critical condition. OLGA LOPEZ MD Jul 27, 2016 16:03
[2016-07-27 17:01] LABS: HEMATOCRIT 30.9 % (39.0-53.0); HEMOGLOBIN 10.5 g/dL (13.0-17.5); RED BLOOD COUNT 3.42 x10^6/uL (4.30-5.70); RED CELL DISTRIBUTION WIDTH 15.3 % (11.5-14.5); WHITE BLOOD COUNT 13.2 x10^3/uL (4.0-11.0)
--- NOTE | 2016-07-27 17:02 | PDOC ---
Progress Note Subjective Subjective Status post CABG 3 for severe ischemic cardiomyopathy, with early postoperative myocardial infarction/V. fib, leading to cardiogenic shock, placement of the vein graft to the LAD and impella for mechanical circulatory support and open chest. He remaines stable over the past 24 hours. He is normotensive and in atrial fibrillation. Excellent urine output and creatinine normal. Minimal output from chest tubes. Impella with excellent flows, has been weaned down to 2.5 L/m. Patient's sedated and paralyzed. Both pupils are reactive. Minimal vent settings. ROS ROS Unable to obtain-intubated/sedated Vital Sign Vital Signs Vital Signs Date Time Temp Pulse Resp B/P Pulse Ox O2 Delivery O2 Flow Rate FiO2 07/27/16 16:07 100 Ventilator 07/27/16 12:00 134 148/90 07/27/16 12:00 99.1 16 99.1 07/26/16 09:24 2.0 Physical Exam PHYSICAL EXAM GENERAL: Intubated sedated HEENT: Pupils reactive NECK: Supple LUNGS: Clear HEART: S1S2 CHEST: Open sternotomy dressings intact with some underlying blood ABD: Soft, NT EXT: No edema, no cyanosis ADMINISTRATOR PESTICIDE: Intubated sedated SKIN: No rash IV: ok Labs Lab Laboratory Tests Test 07/26/16 17:21 07/26/16 18:21 07/26/16 19:35 07/26/16 20:40 Glucose (Fingerstick) 161mg/dL (70-99) 143mg/dL (70-99) 185mg/dL (70-99) White Blood Count 10.6x10^3/uL (4.0-11.0) Red Blood Count 3.32x10^6/uL (4.30-5.70) Hemoglobin 10.3g/dL (13.0-17.5) Hematocrit 30.7% (39.0-53.0) Mean Corpuscular Volume 92fL (79-100) Mean Corpuscular Hemoglobin 31pg (25-35) Mean Corpuscular Hemoglobin Concent 34g/dL (31-37) Red Cell Distribution Width 14.7% (11.5-14.5) Platelet Count 91x10^3/uL (140-400) Activated Partial Thromboplast Time 45SEC (24-38) Fibrinogen 295mg/dL (200-440) Test 07/26/16 20:45 07/26/16 21:59 07/26/16 23:09 07/27/16 00:04 Glucose (Fingerstick) 185mg/dL (70-99) 149mg/dL (70-99) 133mg/dL (70-99) 136mg/dL (70-99) Test 07/27/16 00:30 07/27/16 01:07 07/27/16 02:10 07/27/16 04:00 Activated Partial Thromboplast Time 45SEC (24-38) 43SEC (24-38) Glucose (Fingerstick) 132mg/dL (70-99) 134mg/dL (70-99) Test 07/27/16 04:23 07/27/16 04:50 07/27/16 05:20 07/27/16 06:25 Glucose (Fingerstick) 124mg/dL (70-99) 132mg/dL (70-99) 143mg/dL (70-99) White Blood Count 9.2x10^3/uL (4.0-11.0) Red Blood Count 3.05x10^6/uL (4.30-5.70) Hemoglobin 9.7g/dL (13.0-17.5) Hematocrit 27.7% (39.0-53.0) Mean Corpuscular Volume 91fL (79-100) Mean Corpuscular Hemoglobin 32pg (25-35) Mean Corpuscular Hemoglobin Concent 35g/dL (31-37) Red Cell Distribution Width 14.8% (11.5-14.5) Platelet Count 80x10^3/uL (140-400) Sodium Level 142mmol/L (136-145) Potassium Level 4.5mmol/L (3.5-5.1) Chloride Level 111mmol/L (98-107) Carbon Dioxide Level 26mmol/L (21-32) Anion Gap 5 (6-14) Blood Urea Nitrogen 15mg/dL (8-26) Creatinine 1.0mg/dL (0.7-1.3) Estimated GFR (Cockcroft-Gault) 77.0 Glucose Level 127mg/dL (70-99) Calcium Level 8.7mg/dL (8.5-10.1) Magnesium Level 1.7mg/dL (1.8-2.4) Test 07/27/16 07:33 07/27/16 08:00 07/27/16 08:59 07/27/16 10:02 Glucose (Fingerstick) 93mg/dL (70-99) 150mg/dL (70-99) 161mg/dL (70-99) O2 Saturation 95% (92-99) Arterial Blood pH 7.41 (7.35-7.45) Arterial Blood pCO2 at Patient Temp 37mmHg (35-46) Arterial Blood pO2 at Patient Temp 81mmHg (75-108) Arterial Blood HCO3 23mmol/L (21-28) Arterial Blood Base Excess -2mmol/L (-3-3) FiO2 60 Test 07/27/16 11:09 07/27/16 11:50 07/27/16 12:15 07/27/16 14:23 Glucose (Fingerstick) 167mg/dL (70-99) 167mg/dL (70-99) Activated Partial Thromboplast Time 44SEC (24-38) Bedside Hemoglobin (Calculated) 7.1g/dL (14-18) Bedside Hematocrit 21% (37-52) Bedside Arterial pH 7.32 (7.35-7.45) Bedside Arterial pCO2 40mmHg (35-45) Bedside Arterial pO2 85mmHg (75-100) Bedside Arterial HCO3 21mmol/L (21-28) Bedside Arterial Total CO2 22mmol/L (21-32) Arterial Bld O2 Saturation (Measur) 96% (95-99) Bedside Arterial Blood Base Excess -5mmol/L (0-3) Bedside FiO2 100.0 Bedside Sodium 141mmol/L (135-145) Bedside Potassium 4.1mmol/L (3.5-5.0) Glucose Level 145mg/dL (70-99) Bedside Ionized Calcium (Giovani) 1.26mmol/L (1.13-1.32) Test 07/27/16 15:15 White Blood Count 8.4x10^3/uL (4.0-11.0) Hemoglobin 7.9g/dL (13.0-17.5) Hematocrit 23.8% (39.0-53.0) Platelet Count 60x10^3/uL (140-400) Prothrombin Time 25.8SEC (11.7-14.0) Prothromb Time International Ratio 2.5 (0.8-1.1) Activated Partial Thromboplast Time 43SEC (24-38) Fibrinogen 237mg/dL (200-440) Objective Assessment POD#2 s/p CABG 3 for severe ischemic cardiomyopathy, with early postoperative myocardial infarction/V. fib, leading to cardiogenic shock, placement of the vein graft to the LAD and vein patella for mechanical circulatory support and open chest. He remaines stable over the past 24 hours. He is normotensive and in AFib. Excellent urine output and creatinine normal. Minimal output from chest tubes. Implella with excellent flows weaned down to 2.5 L/m. Patient is sedated and paralyzed. Both pupils are reactive. Minimal vent settings. Plan Plan of Care Keep Impella at 2-2.5 lit/hr today. Will wean and remove tomorrow Keep dopamine at 5 mcg Keep sedated Stop paralytics once chest is closed Continue amiodarone drip OR today to attempt closure of sternotomy OLGA LOPEZ MD Jul 27, 2016 17:02
[2016-07-27 17:12] LABS: INR 2.4 (0.8-1.1); PROTHROMBIN TIME PATIENT 24.8 SEC (11.7-14.0)
[2016-07-27] MEDS ORDERED: ALBUMIN HUMAN 5% 250 ML IV ONE (17:15)
[2016-07-27 17:16] LABS: CALCIUM 7.5 mg/dL (8.5-10.1); POTASSIUM 4.7 mmol/L (3.5-5.1)
[2016-07-27 17:17] LABS: HCO3 ABG 19 mmol/L (21-28); PCO2 ABG 40 mmHg (35-46); PO2 ABG 74 mmHg (75-108); SAT O2 ABG 92 % (92-99)
[2016-07-27 17:22] LABS: FIO2 ABG 100
[2016-07-27] MEDS ORDERED: SODIUM BICARB ADULT 8.4% 50 MEQ/50 ML DISP.SYRIN. ONE (17:39)
[2016-07-27] MEDS ORDERED: SODIUM BICARB ADULT 8.4% 50 MEQ/50 ML DISP.SYRIN. IV ONE ×2 (18:00)
[2016-07-27 20:24] LABS: HEMATOCRIT 21.9 % (39.0-53.0); HEMOGLOBIN 7.5 g/dL (13.0-17.5); RED BLOOD COUNT 2.41 x10^6/uL (4.30-5.70); RED CELL DISTRIBUTION WIDTH 14.6 % (11.5-14.5); WHITE BLOOD COUNT 10.2 x10^3/uL (4.0-11.0)
[2016-07-27] MEDS: ATORVASTATIN CALCIUM 40 MG TABLET. PO SCH (21:00)
[2016-07-27] MEDS: INSULIN REGULAR VIAL 150 UNIT in 0.9 % SODIUM CHLORIDE 150ML 150 ML IV PRN (21:41)
[2016-07-27 22:40] LABS: INR 2.7 (0.8-1.1); PROTHROMBIN TIME PATIENT 27.2 SEC (11.7-14.0)
[2016-07-28] VITALS (23 sets, daily range): BP systolic 17–170; BP diastolic 55–89
[2016-07-28] MEDS: CHLORHEXIDINE 0.12% 15 ML MOUTHWASH. MM SCH ×3 (03:10→21:18)
[2016-07-28] MEDS: MINERAL OIL/PETROLATUM,WHITE OPHTH OINT 3.5GM TUBE. OU SCH ×3 (03:10→21:18)
[2016-07-28] MEDS: PIPERACILLIN/TAZOBACTAM 3.375 GM in IV NORMAL SALINE 50ML 50 ML IV SCH ×5 (03:14→23:36)
[2016-07-28] MEDS: FAMOTIDINE 20 MG/2 ML VIAL IVP SCH ×3 (03:14→21:22)
[2016-07-28] MEDS: AMIODARONE 450 MG in IV DEXTROSE 5% 250 ML IV PRN ×3 (04:44→21:13)
[2016-07-28] MEDS: NOREPINEPHRINE 8 MG in IV NORMAL SALINE 250 ML IV PRN (04:46)
[2016-07-28 06:30] LABS: HEMATOCRIT 24.7 % (39.0-53.0); HEMOGLOBIN 8.7 g/dL (13.0-17.5); RED BLOOD COUNT 2.82 x10^6/uL (4.30-5.70); RED CELL DISTRIBUTION WIDTH 14.5 % (11.5-14.5); WHITE BLOOD COUNT 12.6 x10^3/uL (4.0-11.0)
[2016-07-28 06:37] LABS: CALCIUM 7.8 mg/dL (8.5-10.1); CREATININE 1.2 mg/dL (0.7-1.3); GFR 62.4; MAGNESIUM 1.9 mg/dL (1.8-2.4); POTASSIUM 4.4 mmol/L (3.5-5.1)
[2016-07-28 06:48] LABS: INR 2.4 (0.8-1.1); PROTHROMBIN TIME PATIENT 24.6 SEC (11.7-14.0)
[2016-07-28] MEDS ORDERED: IV RINGERS,LACTATED 1000ML 1,000 ML IV SCH (06:49)
[2016-07-28] MEDS ORDERED: HYDROmorphone 2 MG/ML VIAL IV PRN (07:00)
[2016-07-28] MEDS ORDERED: MORPHINE SULFATE 2 MG/ML DISP.SYRIN. IV PRN (07:00)
[2016-07-28] MEDS ORDERED: LIDOCAINE 1% 1 ML SYRINGE. ID PRN (07:00)
[2016-07-28] MEDS ORDERED: fentaNYL PF VIAL 100 MCG/2 ML VIAL IV PRN ×2 (07:00)
[2016-07-28] MEDS ORDERED: ROCURONIUM 50 MG/5 ML VIAL. ONE (07:27)
[2016-07-28] MEDS ORDERED: BUPIVACAINE-EPI 0.25%-1:200000 50 ML VIAL. ONE (07:42)
[2016-07-28] MEDS ORDERED: SURGICEL HEMOSTAT 4X8 EACH. ONE (07:42)
[2016-07-28] MEDS: DOCUSATE SODIUM 100 MG CAPSULE. PO SCH (07:51)
[2016-07-28] MEDS: ASPIRIN ENTERIC COATED 325 MG TABLET.DR. PO SCH (07:51)
[2016-07-28] MEDS: ASPIRIN 300 MG SUPP.RECT PR SCH (07:55)
[2016-07-28 08:13] LABS: HCO3 ABG 22 mmol/L (21-28); PCO2 ABG 30 mmHg (35-46); PH ABG 7.49 (7.35-7.45); PO2 ABG 70 mmHg (75-108); SAT O2 ABG 94 % (92-99)
[2016-07-28] MEDS ORDERED: HEPARIN SODIUM 5,000 UNIT in IV NORMAL SALINE 500ML BAG 500 ML IRR ONE (08:15)
--- NOTE | 2016-07-28 08:33 | RAD ---
APPROVED REPORT Patient Location: IN-PATIENT Indications Pulselessness VELOCITY AND DOPPLER WAVEFORM ANALYSIS RIGHT cm/secWaveformSeverity LEFT c m/secWaveformSeverity Pop Art(Fossa) Pop Art(Fossa) 19.0Monophasic Findings Limited evaluation of the left popliteal artery performed to assess for perfusion. Color doppler suggests severely diminished flow but flow is present. Spectral wave forms are monophasic suggestive of proximal occlusive disease. Critical Notification Critical Value: No <Conclusion> Severely diminished but patent popliteal flow.
[2016-07-28 08:35] LABS: FIO2 ABG 60
[2016-07-28] MEDS ORDERED: MAGNESIUM SULFATE 1GM 100 ML IV ONE (09:00)
[2016-07-28] MEDS ORDERED: VASOPRESSIN 20 UNIT/ML VIAL. ONE (09:03)
[2016-07-28] MEDS ORDERED: EPINEPHrine SYRINGE 1 MG/10 ML SYRINGE ONE (09:09)
[2016-07-28] MEDS ORDERED: CALCIUM CHLORIDE 1,000 MG/10 ML DISP.SYRIN IV ONE (09:09)
--- NOTE | 2016-07-28 09:46 | RAD ---
AP portable chest radiograph 07/28/2016 Clinical History: Respiratory distress. An AP portable erect digital radiograph of the chest was obtained. Comparison study is dated 07/27/2016. The ET tube, NG tube, and left-sided chest tubes are unchanged. Right internal jugular Thayer-Anita catheter tip now overlies the main pulmonary artery. The cardiac silhouette is borderline enlarged. The thoracic aorta is tortuous. There is a probable small right pleural effusion, unchanged. No area of consolidation is noted. No pneumothorax is seen. The osseous structures are unchanged. Impression: Small right pleural effusion, unchanged. No area of consolidation is seen.
[2016-07-28] MEDS ORDERED: PHENYLEPHRINE in 0.9% NACL PF 1 MG/10 ML DISP.SYRIN. IV ONE (09:54)
[2016-07-28] MEDS ORDERED: SEVOFLURANE 61 TO 120 MINUTES. IH ONE (09:54)
[2016-07-28] MEDS ORDERED: HEPARIN for IV BOLUS 10,000 UNIT/10 ML VIAL. ONE (09:57)
[2016-07-28] MEDS ORDERED: ALBUMIN HUMAN 5% 500 ML IV ONE (09:57)
[2016-07-28] MEDS ORDERED: IOHEXOL 300 MG/ML 100ML VIAL. ONE ×2 (10:39→10:43)
--- NOTE | 2016-07-28 11:27 | CARD ---
EXAM: Two-dimensional and M-mode echocardiogram with Doppler and color Doppler. INDICATION Cardiac Disease: CAD Intraoperative GOKUL- CABG RISK FACTORS Smoking Reason For Test : CABG PROCEDURE Transesophageal probe was inserted and advanced into esophagus by Chago Mattson MD. The GOKUL was performed without complications. Throughout the procedure, the blood pressure, pulse oximetry, cardiac rhythm, and rate were monitored. LEFT VENTRICLE The left ventricle is normal size. There is normal left ventricular wall thickness. Left ventricle systolic function is severely impaired. The Ejection Fraction is <20%. There is severe global hypokinesis of the left ventricle with akinesis of the apex, septum and distal 1/3rd of the LV. No left ventricle thrombus noted on this study. RIGHT VENTRICLE The right ventricle is normal size. There is normal right ventricular wall thickness. The right ventricular systolic function is moderately decreased. ATRIA The left atrium size is normal. The right atrium size is normal. AORTIC VALVE The aortic valve is mildly sclerotic. The aortic valve is trileaflet. Doppler and Color Flow revealed mild aortic regurgitation. There is no significant aortic valvular stenosis. MITRAL VALVE Mitral annular calcification is mild. The mitral valve leaflets are thickened. There is no evidence of mitral valve prolapse. There is no mitral valve stenosis. Doppler and Color Flow revealed trace mitral regurgitation. TRICUSPID VALVE The tricuspid valve is normal in structure and function. There is no tricuspid valve stenosis. PULMONIC VALVE The pulmonic valve is not well visualized. GREAT VESSELS The aortic root is normal in size. The ascending aorta is not well seen. Pulmonary veins are not well visualized. The IVC was not visualized. PERICARDIAL EFFUSION There is no evidence of significant pericardial effusion. Critical Notification Critical Value: No <Conclusion> Left ventricle systolic function is severely impaired. The Ejection Fraction is <20%. There is severe global hypokinesis of the left ventricle with akinesis of the apex, septum and distal 1/3rd of the LV. The right ventricular systolic function is moderately decreased. Impella device inserted with inflow cannula below the AV leaflet and mild aortic insufficieny. MTDD
--- NOTE | 2016-07-28 11:49 | PDOC ---
PROGRESS NOTES Chief Complaint Chief Complaint Chest pain STEMI 1. STEMI: 3-vessel dz by cardiac cath (07/20/16). s/p CABG on 07/25/2016 : FLETCHER to LAD; SVG to LAD; SVG to OM1 and SVG to RPDA. VF arrest after chest closed; reopened and placed back on bypass then converted to LVAD. chest closed yesterday 2. cardiogenic shock: post op, on LVAD, d/c.ed today 3. 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 D/w [facility], Dr Mattson 4. Cardiomyopathy: EF 455 pre-op, rpt echo today: 20% 5. Afib: rate controlled on amiodarone gtt 6. HTN: meds as tolerated; currently on pressors; very fragile BPs, fluid dependent 7. Empiric Zosyn currently. ?switch to lower fluid load Abx for prophylaxis 8. HLD: on statin, currently on hold 9. DM: on insulin gtt 10: Nutrition: cautious NG feed today Prognosis: critical CC time Vitals Vitals Vital Signs Date Time Temp Pulse Resp B/P Pulse Ox O2 Delivery O2 Flow Rate FiO2 07/28/16 08:07 96 Ventilator 07/28/16 08:00 118 07/28/16 08:00 100.6 21 100.6 Physical Exam Physical Exam GENERAL: Intubated sedated HEENT: Pupils reactive NECK: Supple LUNGS: Clear HEART: S1S2 CHEST: Open sternotomy dressings intact with some underlying blood ABD: Soft, NT EXT: No edema, no cyanosis UPHOLSTERER HELPER: Intubated sedated SKIN: No rash IV: ok General: Other (sedated, intubated, immobilized on vec) Heart: Other (irregular) Lungs: Other (midline dressing in place. subxyphoid drains ) Abdomen: Soft, No tenderness, Other (distended) Extremities: Other (+ edema x4) Skin: No rashes, Other (2+edema throughout) Labs LABS Laboratory Tests Test 07/27/16 11:50 07/27/16 12:15 07/27/16 13:18 07/27/16 14:23 Activated Partial Thromboplast Time 44SEC (24-38) Glucose (Fingerstick) 167mg/dL (70-99) 161mg/dL (70-99) Bedside Hemoglobin (Calculated) 7.1g/dL (14-18) Bedside Hematocrit 21% (37-52) Bedside Arterial pH 7.32 (7.35-7.45) Bedside Arterial pCO2 40mmHg (35-45) Bedside Arterial pO2 85mmHg (75-100) Bedside Arterial HCO3 21mmol/L (21-28) Bedside Arterial Total CO2 22mmol/L (21-32) Arterial Bld O2 Saturation (Measur) 96% (95-99) Bedside Arterial Blood Base Excess -5mmol/L (0-3) Bedside FiO2 100.0 Bedside Sodium 141mmol/L (135-145) Bedside Potassium 4.1mmol/L (3.5-5.0) Glucose Level 145mg/dL (70-99) Bedside Ionized Calcium (Giovani) 1.26mmol/L (1.13-1.32) Test 07/27/16 14:53 07/27/16 15:15 07/27/16 16:45 07/27/16 17:04 Activated Clotting Time 145SEC (90-125) White Blood Count 8.4x10^3/uL (4.0-11.0) 13.2x10^3/uL (4.0-11.0) Hemoglobin 7.9g/dL (13.0-17.5) 10.5g/dL (13.0-17.5) Hematocrit 23.8% (39.0-53.0) 30.9% (39.0-53.0) Platelet Count 60x10^3/uL (140-400) 83x10^3/uL (140-400) Prothrombin Time 25.8SEC (11.7-14.0) 24.8SEC (11.7-14.0) Prothromb Time International Ratio 2.5 (0.8-1.1) 2.4 (0.8-1.1) Activated Partial Thromboplast Time 43SEC (24-38) 50SEC (24-38) Fibrinogen 237mg/dL (200-440) Red Blood Count 3.42x10^6/uL (4.30-5.70) Mean Corpuscular Volume 90fL (79-100) Mean Corpuscular Hemoglobin 31pg (25-35) Mean Corpuscular Hemoglobin Concent 34g/dL (31-37) Red Cell Distribution Width 15.3% (11.5-14.5) Sodium Level 142mmol/L (136-145) Potassium Level 4.7mmol/L (3.5-5.1) Chloride Level 110mmol/L (98-107) Carbon Dioxide Level 22mmol/L (21-32) Anion Gap 10 (6-14) Blood Urea Nitrogen 16mg/dL (8-26) Creatinine 1.0mg/dL (0.7-1.3) Estimated GFR (Cockcroft-Gault) 77.0 Glucose Level 152mg/dL (70-99) Calcium Level 7.5mg/dL (8.5-10.1) Magnesium Level 1.8mg/dL (1.8-2.4) O2 Saturation 92% (92-99) Arterial Blood pH 7.30 (7.35-7.45) Arterial Blood pCO2 at Patient Temp 40mmHg (35-46) Arterial Blood pO2 at Patient Temp 74mmHg (75-108) Arterial Blood HCO3 19mmol/L (21-28) Arterial Blood Base Excess -7mmol/L (-3-3) FiO2 100 Test 07/27/16 17:27 07/27/16 18:05 07/27/16 19:09 07/27/16 20:15 Glucose (Fingerstick) 144mg/dL (70-99) 147mg/dL (70-99) 138mg/dL (70-99) 140mg/dL (70-99) White Blood Count 10.2x10^3/uL (4.0-11.0) Red Blood Count 2.41x10^6/uL (4.30-5.70) Hemoglobin 7.5g/dL (13.0-17.5) Hematocrit 21.9% (39.0-53.0) Mean Corpuscular Volume 91fL (79-100) Mean Corpuscular Hemoglobin 31pg (25-35) Mean Corpuscular Hemoglobin Concent 34g/dL (31-37) Red Cell Distribution Width 14.6% (11.5-14.5) Platelet Count 106x10^3/uL (140-400) Test 07/27/16 21:29 07/27/16 22:20 07/27/16 23:08 07/28/16 00:38 Glucose (Fingerstick) 133mg/dL (70-99) 160mg/dL (70-99) 126mg/dL (70-99) Prothrombin Time 27.2SEC (11.7-14.0) Prothromb Time International Ratio 2.7 (0.8-1.1) Activated Partial Thromboplast Time 46SEC (24-38) Test 07/28/16 01:31 07/28/16 02:42 07/28/16 03:29 07/28/16 04:34 Glucose (Fingerstick) 131mg/dL (70-99) 134mg/dL (70-99) 120mg/dL (70-99) 125mg/dL (70-99) Test 07/28/16 05:36 07/28/16 06:05 07/28/16 06:32 07/28/16 08:00 Glucose (Fingerstick) 111mg/dL (70-99) 117mg/dL (70-99) White Blood Count 12.6x10^3/uL (4.0-11.0) Red Blood Count 2.82x10^6/uL (4.30-5.70) Hemoglobin 8.7g/dL (13.0-17.5) Hematocrit 24.7% (39.0-53.0) Mean Corpuscular Volume 88fL (79-100) Mean Corpuscular Hemoglobin 31pg (25-35) Mean Corpuscular Hemoglobin Concent 35g/dL (31-37) Red Cell Distribution Width 14.5% (11.5-14.5) Platelet Count 79x10^3/uL (140-400) Prothrombin Time 24.6SEC (11.7-14.0) Prothromb Time International Ratio 2.4 (0.8-1.1) Activated Partial Thromboplast Time 38SEC (24-38) Sodium Level 142mmol/L (136-145) Potassium Level 4.4mmol/L (3.5-5.1) Chloride Level 110mmol/L (98-107) Carbon Dioxide Level 26mmol/L (21-32) Anion Gap 6 (6-14) Blood Urea Nitrogen 22mg/dL (8-26) Creatinine 1.2mg/dL (0.7-1.3) Estimated GFR (Cockcroft-Gault) 62.4 Glucose Level 125mg/dL (70-99) Calcium Level 7.8mg/dL (8.5-10.1) Magnesium Level 1.9mg/dL (1.8-2.4) O2 Saturation 94% (92-99) Arterial Blood pH 7.49 (7.35-7.45) Arterial Blood pCO2 at Patient Temp 30mmHg (35-46) Arterial Blood pO2 at Patient Temp 70mmHg (75-108) Arterial Blood HCO3 22mmol/L (21-28) Arterial Blood Base Excess -1mmol/L (-3-3) FiO2 60 Test 07/28/16 08:09 07/28/16 11:16 Glucose (Fingerstick) 134mg/dL (70-99) Activated Clotting Time 215sec (92-181) Review of Systems Review of Systems inbub.ed, sedated PANTERA MARTINEZ MD Jul 28, 2016 11:49
--- NOTE | 2016-07-28 11:59 | CARD ---
APPROVED REPORT EXAM: Transesophageal echocardiogram with color flow Doppler. INDICATION LV Function:Systolic PROCEDURE After obtaining informed consent, patient underwent transesophageal echo in the operating room. Room 3 Sedation was provided by anesthesiologist, see EMR for medications administered. Transesophageal probe was inserted and advanced into esophagus by anesthesia.. The GOKUL was performed without complications. Throughout the procedure, the blood pressure, pulse oximetry, cardiac rhythm, and rate were monitored . The patient tolerated the procedure without adverse effects. Recovery from conscious sedation was une ventful and vital signs were stable. LEFT VENTRICLE The left ventricle is normal size. There is normal left ventricular wall thickness. Left ventricle sy stolic function is severely impaired. The Ejection Fraction is estimated at 20%. Impella device noted in the left ventricle. [place] and septum are severely hypokinetic. Lateral wall appears hyperdynamic. ATRIA The left atrium is mildly dilated. AORTIC VALVE The aortic valve is normal in structure and function. The aortic valve is trileaflet. Doppler and Col or Flow revealed no significant aortic regurgitation. There is no significant aortic valvular stenosi s. MITRAL VALVE The mitral valve is normal in structure and function. There is no mitral valve stenosis. Doppler and Color Flow revealed trace mitral regurgitation. GREAT VESSELS The aortic root is normal in size. Critical Notification Critical Value: No <Conclusion> The left ventricle is normal size. Left ventricle systolic function is severely impaired. The Ejection Fraction is estimated at 20%. Impella device noted in the left ventricle. [place] and septum are severely hypokinetic. Lateral wall appears hyperdynamic. There is no significant aortic valvular stenosis. Doppler and Color Flow revealed no significant aortic regurgitation. Doppler and Color Flow revealed trace mitral regurgitation.
[2016-07-28] MEDS: ALBUTEROL SULFATE 2.5 MG/3 ML NEBU. NEB SCH ×3 (12:36→20:04)
[2016-07-28] MEDS ORDERED: FUROSEMIDE 40 MG/4 ML VIAL. IVP ONE ×2 (13:15→14:00)
[2016-07-28] MEDS: IV RINGERS,LACTATED 1000ML 1,000 ML IV SCH (13:19)
--- NOTE | 2016-07-28 13:36 | PDOC ---
BRIEF OPERATIVE NOTE Date: Jul 28, 2016 Pre-Op Diagnosis S/p CABG x 3 S/p left ventricular assist device (Impella 3.0) Cardiogenic shock Severe three-vessel coronary artery disease ST elevation myocardial infarction Severe ischemic cardiomyopathy Chronic atrial fibrillation Post-Op Diagnosis S/p CABG x 3 S/p left ventricular assist device (Impella 3.0) Cardiogenic shock Pulmonary edema Severe three-vessel coronary artery disease ST elevation myocardial infarction Severe ischemic cardiomyopathy Chronic atrial fibrillation Hypertension Procedure Performed Removal of left ventricular assist device (Impella 3.0), removal of 14 Guyanese sheath Primary repair of common femoral artery Surgeon Olga Lopez MD Judicial Law Clerk RAFITA Guallpa Anesthesia Type: General Blood Loss 100 mls IV Fluid 1 unit PRBC Urine Output N/A Specimens Obtained None Findings Excellent backflow, but relatively poor inflow proximally Common femoral artery atheromatous plaque Complications None Additional Remarks Following the common femoral artery repair I asked Dr Mattson to perform an arteriogram to assess inflow issues. He will dictate his portion of the procedure OLGA LOPEZ MD Jul 28, 2016 13:36
--- NOTE | 2016-07-28 13:42 | PDOC4 ---
Operative Note Operative Note Date Jul 28, 2016 Preoperative diagnosis S/p CABG x 3 S/p left ventricular assist device (Impella 3.0) Cardiogenic shock Severe three-vessel coronary artery disease ST elevation myocardial infarction Severe ischemic cardiomyopathy Chronic atrial fibrillation Postoperative diagnosis S/p CABG x 3 S/p left ventricular assist device (Impella 3.0) Cardiogenic shock Pulmonary edema Severe three-vessel coronary artery disease ST elevation myocardial infarction Severe ischemic cardiomyopathy Chronic atrial fibrillation Procedure Removal of left ventricular assist device (Impella 3.0), removal of 14 Latvian sheath Primary repair of common femoral artery Surgeon Olga Lopez MD Driver License Agent RAFITA Guallpa Anesthesia General Blood loss 100 mls IV fluids 1 unit PRBC Urine output N/A Specimens obtained None Findings Excellent backflow, but relatively poor inflow proximally Common femoral artery atheromatous plaque Complications None Additional Remarks Following the common femoral artery repair I asked Dr Mattson to perform an arteriogram to assess inflow issues. He will dictate his portion of the procedure Indication This is a 56 year old male who presented with a large ST elevation myocardial infarction in the LAD territory with a troponin peak at 100 who underwent CABG 3 and is now on postoperative day 3. The patient had cardiogenic shock and as a result his chest was left open and a left ventricular assist device was placed. His cardiac function and hemodynamics eventually stabilized so I closed his chest yesterday. Since last night I have been weaning the LVAD support. The plan was to return to the operating room this morning to remove the LVAD, the 14 Latvian sheath in his left common femoral artery and primarily repair it. Informed consent was obtained by the patient's spouse who agreed to proceed. Operation The patient was transferred from the ICU to our hybrid operating room and placed supine on the operating table. His ID was confirmed using 2 unique identifies. A timeout was then performed. The LVAD was weaned from 1 L to off and then was removed through the 14 Latvian sheath. His hemodynamics remained stable although there was associated hypoxia most likely from pulmonary edema. The left groin was then prepped and draped in the usual sterile surgical fashion. A transverse 4 cm incision was made above the groin crease and above the 14 Fr sheath. The incision was deepened through the subcutaneous tissues down to the femoral sheath. Once the sheath was opened, I identified the proximal femoral artery which was carefully dissected. A vessel loop was placed proximally. I then continued the dissection distally, identified the arteriotomy through which the 14 Latvian sheath was placed and then continued the dissection distally and obtained distal control with another vessel loop. The patient was then heparinized with 3000 units of IV heparin. DeBakey clamps were placed proximally and distally and the sheath was gradually pulled. I allowed the femoral artery to bleed in order to remove any small clots. The backflow was excellent but the inflow was slow. The common femoral artery was flushed with heparinized saline. I then repaired the arteriotomy transversely with four 5-0 Prolene sutures. I initially released the distal clamp and then the proximal and there was no hemorrhage. I was not satisfied with the quality of the pulse and on Doppler there was only a monophasic waveform. The issue was with the inflow. At that point I asked Dr Mattson to perform an arteriogram and possibly intervene if necessary. He will dictate his part of the operation. The left groin was closed in layers. The epidermis was closed with 4-0 Monocryl. Sterile dressing was applied. At the end of my procedure the instrument, sponge and needle counts were correct. OLGA LOPEZ MD Jul 28, 2016 13:42
--- NOTE | 2016-07-28 14:12 | PDOC ---
Progress Note Subjective Subjective Status post CABG 3 for severe ischemic cardiomyopathy, with early postoperative myocardial infarction/V. fib, leading to cardiogenic shock, placement of the vein graft to the LAD and impella for mechanical circulatory support and open chest. His sternotomy was successfully closed yesterday which he tolerated from a cardiac function and hemodynamic standpoint. He did have some coagulopathic hemorrhage after closing his chest but this resolved by correcting his coagulopathy. Since last night I have gradually weaned the VAD support to 1 lit/min, which she has tolerated. Good urine output and creatinine normal. I also discontinued his sedation and thankfully the patient woke up this morning. He was responsive with purposeful movements. We successfully removed the LVAD and primarily repaired the left femoral artery early this morning. As expected, this has caused some pulmonary edema since there is no more LV unloading. We have made appropriate vent changes and is now on a PEEP of 10 and his hypoxia is improving. I'm also starting aggressive diuresis. He remains on dobutamine of 5mcg and on 10mcg/min of norepinephrine. ROS ROS Unable to obtain-intubated/sedated Vital Sign Vital Signs Vital Signs Date Time Temp Pulse Resp B/P Pulse Ox O2 Delivery O2 Flow Rate FiO2 07/28/16 12:15 96 Ventilator 07/28/16 08:00 118 07/28/16 08:00 100.6 21 100.6 Physical Exam PHYSICAL EXAM GENERAL: Intubated sedated HEENT: Pupils reactive NECK: Supple LUNGS: Diffuse crackles HEART: S1S2 CHEST: sternotomy: D/C/I ABD: Soft, NT EXT: Anasarca, no cyanosis BILLING AND INSURANCE COORDINATOR: Intubated sedated, was alert this morning with purposeful movements SKIN: No rash IV: ok Labs Lab Laboratory Tests Test 07/27/16 14:23 07/27/16 14:53 07/27/16 15:15 07/27/16 16:45 Bedside Hemoglobin (Calculated) 7.1g/dL (14-18) Bedside Hematocrit 21% (37-52) Bedside Arterial pH 7.32 (7.35-7.45) Bedside Arterial pCO2 40mmHg (35-45) Bedside Arterial pO2 85mmHg (75-100) Bedside Arterial HCO3 21mmol/L (21-28) Bedside Arterial Total CO2 22mmol/L (21-32) Arterial Bld O2 Saturation (Measur) 96% (95-99) Bedside Arterial Blood Base Excess -5mmol/L (0-3) Bedside FiO2 100.0 Bedside Sodium 141mmol/L (135-145) Bedside Potassium 4.1mmol/L (3.5-5.0) Glucose Level 145mg/dL (70-99) 152mg/dL (70-99) Bedside Ionized Calcium (Giovani) 1.26mmol/L (1.13-1.32) Activated Clotting Time 145SEC (90-125) White Blood Count 8.4x10^3/uL (4.0-11.0) 13.2x10^3/uL (4.0-11.0) Hemoglobin 7.9g/dL (13.0-17.5) 10.5g/dL (13.0-17.5) Hematocrit 23.8% (39.0-53.0) 30.9% (39.0-53.0) Platelet Count 60x10^3/uL (140-400) 83x10^3/uL (140-400) Prothrombin Time 25.8SEC (11.7-14.0) 24.8SEC (11.7-14.0) Prothromb Time International Ratio 2.5 (0.8-1.1) 2.4 (0.8-1.1) Activated Partial Thromboplast Time 43SEC (24-38) 50SEC (24-38) Fibrinogen 237mg/dL (200-440) Red Blood Count 3.42x10^6/uL (4.30-5.70) Mean Corpuscular Volume 90fL (79-100) Mean Corpuscular Hemoglobin 31pg (25-35) Mean Corpuscular Hemoglobin Concent 34g/dL (31-37) Red Cell Distribution Width 15.3% (11.5-14.5) Sodium Level 142mmol/L (136-145) Potassium Level 4.7mmol/L (3.5-5.1) Chloride Level 110mmol/L (98-107) Carbon Dioxide Level 22mmol/L (21-32) Anion Gap 10 (6-14) Blood Urea Nitrogen 16mg/dL (8-26) Creatinine 1.0mg/dL (0.7-1.3) Estimated GFR (Cockcroft-Gault) 77.0 Calcium Level 7.5mg/dL (8.5-10.1) Magnesium Level 1.8mg/dL (1.8-2.4) Test 07/27/16 17:04 07/27/16 17:27 07/27/16 18:05 07/27/16 19:09 O2 Saturation 92% (92-99) Arterial Blood pH 7.30 (7.35-7.45) Arterial Blood pCO2 at Patient Temp 40mmHg (35-46) Arterial Blood pO2 at Patient Temp 74mmHg (75-108) Arterial Blood HCO3 19mmol/L (21-28) Arterial Blood Base Excess -7mmol/L (-3-3) FiO2 100 Glucose (Fingerstick) 144mg/dL (70-99) 147mg/dL (70-99) 138mg/dL (70-99) Test 07/27/16 20:15 07/27/16 21:29 07/27/16 22:20 07/27/16 23:08 White Blood Count 10.2x10^3/uL (4.0-11.0) Red Blood Count 2.41x10^6/uL (4.30-5.70) Hemoglobin 7.5g/dL (13.0-17.5) Hematocrit 21.9% (39.0-53.0) Mean Corpuscular Volume 91fL (79-100) Mean Corpuscular Hemoglobin 31pg (25-35) Mean Corpuscular Hemoglobin Concent 34g/dL (31-37) Red Cell Distribution Width 14.6% (11.5-14.5) Platelet Count 106x10^3/uL (140-400) Glucose (Fingerstick) 140mg/dL (70-99) 133mg/dL (70-99) 160mg/dL (70-99) Prothrombin Time 27.2SEC (11.7-14.0) Prothromb Time International Ratio 2.7 (0.8-1.1) Activated Partial Thromboplast Time 46SEC (24-38) Test 07/28/16 00:38 07/28/16 01:31 07/28/16 02:42 07/28/16 03:29 Glucose (Fingerstick) 126mg/dL (70-99) 131mg/dL (70-99) 134mg/dL (70-99) 120mg/dL (70-99) Test 07/28/16 04:34 07/28/16 05:36 07/28/16 06:05 07/28/16 06:32 Glucose (Fingerstick) 125mg/dL (70-99) 111mg/dL (70-99) 117mg/dL (70-99) White Blood Count 12.6x10^3/uL (4.0-11.0) Red Blood Count 2.82x10^6/uL (4.30-5.70) Hemoglobin 8.7g/dL (13.0-17.5) Hematocrit 24.7% (39.0-53.0) Mean Corpuscular Volume 88fL (79-100) Mean Corpuscular Hemoglobin 31pg (25-35) Mean Corpuscular Hemoglobin Concent 35g/dL (31-37) Red Cell Distribution Width 14.5% (11.5-14.5) Platelet Count 79x10^3/uL (140-400) Prothrombin Time 24.6SEC (11.7-14.0) Prothromb Time International Ratio 2.4 (0.8-1.1) Activated Partial Thromboplast Time 38SEC (24-38) Sodium Level 142mmol/L (136-145) Potassium Level 4.4mmol/L (3.5-5.1) Chloride Level 110mmol/L (98-107) Carbon Dioxide Level 26mmol/L (21-32) Anion Gap 6 (6-14) Blood Urea Nitrogen 22mg/dL (8-26) Creatinine 1.2mg/dL (0.7-1.3) Estimated GFR (Cockcroft-Gault) 62.4 Glucose Level 125mg/dL (70-99) Calcium Level 7.8mg/dL (8.5-10.1) Magnesium Level 1.9mg/dL (1.8-2.4) Test 07/28/16 08:00 07/28/16 08:09 07/28/16 11:16 O2 Saturation 94% (92-99) Arterial Blood pH 7.49 (7.35-7.45) Arterial Blood pCO2 at Patient Temp 30mmHg (35-46) Arterial Blood pO2 at Patient Temp 70mmHg (75-108) Arterial Blood HCO3 22mmol/L (21-28) Arterial Blood Base Excess -1mmol/L (-3-3) FiO2 60 Glucose (Fingerstick) 134mg/dL (70-99) Activated Clotting Time 215sec (92-181) Objective Assessment Status post CABG 3 for severe ischemic cardiomyopathy, large anterior STEMI with troponin of 100, with early postoperative myocardial infarction/V. fib, leading to cardiogenic shock, placement of the vein graft to the LAD and impella for mechanical circulatory support and open chest. His sternotomy was successfully closed yesterday which he tolerated from a cardiac function and hemodynamic standpoint. He did have some coagulopathic hemorrhage after closing his chest but this resolved by correcting his coagulopathy. Since last night, I have gradually weaned the VAD support to 1 lit/min, which he has tolerated. Good urine output and creatinine normal. I also discontinued his sedation and thankfully the patient woke up this morning. He was responsive with purposeful movements. We successfully removed the LVAD and primarily repaired the left femoral artery early this morning. As expected, this has caused some pulmonary edema since there is no more LV unloading. We have made appropriate vent changes and is now on a PEEP of 10 and his hypoxia is improving. I'm also starting aggressive diuresis. He remains on dobutamine of 5mcg and on 10mcg/min of norepinephrine. Plan Plan of Care FIO2 100% PEEP 10, to help improve oxygenation. First wean FiO2 Will start aggressive diuresis with 80 mg IV Lasix. Depending on his response, I may start a Lasix drip later this afternoon Keep dopamine at 5 mcg-no need to wean for now, okay to manage vasoplegia / hypotension with Levophed Since we know that BILLING AND INSURANCE COORDINATOR function is okay, and we have no plans on extubating anytime soon, I would keep him lightly sedated for now Continue amiodarone drip for A. fib control Continue IV Zosyn and vancomycin for previous open chest Chest tubes may come out over the next day or two, depending on drainage Will start tube feeds, initially trickle at 10 mLs/h - will see how he tolerates it OLGA LOPEZ MD Jul 28, 2016 14:11
[2016-07-28] MEDS: MORPHINE SULFATE 2 MG/ML DISP.SYRIN. IV PRN (14:21)
[2016-07-28 14:52] LABS: HCO3 ABG 22 mmol/L (21-28); PCO2 ABG 39 mmHg (35-46); PH ABG 7.36 (7.35-7.45); PO2 ABG 51 mmHg (75-108); SAT O2 ABG 84 % (92-99)
[2016-07-28 14:53] LABS: FIO2 ABG 100
[2016-07-28] MEDS: ALBUMIN HUMAN 5% 250 ML IV PRN ×2 (15:28→20:16)
[2016-07-28] MEDS: FUROSEMIDE INJ 100 MG in IV NORMAL SALINE 100ML 100 ML IV PRN (15:49)
--- NOTE | 2016-07-28 16:26 | CARD ---
APPROVED REPORT Procedure(s) performed: Abdominal aortogram LLE run-off Iliac angioplasty SFA angioplasty Removal of an impella CP percutaneous left ventricular assist device. HISTORY : The patient is a 56 year-old male with a history of . INDICATION The indication(s) include : See below. . PROCEDURE NARRATIVE Informed consent for the patient's left femoral endarterectomy with possible angioplasty was obtained from the patient's family. Patient is a 56-year-old male critically ill after ventricular fibrillati on following a coronary artery bypass surgery. He required emergency placement of a percutaneous left ventricular assist device through the left femoral artery. Due to diminished flow to the left lower extremity and stabilization over the last 48 hours a decision was made to remove the assist device wi th surgical closure of the arteriotomy. Anesthesia was administered per protocol. The patient initially had his left femoral Impella device t urned to P2 flow and then P1. The device was then removed without any complications. Subsequently the left femoral arteriotomy was closed by cardiothoracic surgery. Please see separate report for full d etails. Due to persistent diminished flows in the popliteal and pedal pulses a decision was made to perform a n aortogram to ensure that no proximal vessel issues were noted. Therefore a 6 Guatemalan sheath was intr oduced into the right common femoral artery over a J-tipped guidewire via the Seldinger technique. Liao bsequently, a Omni Flush 5 Guatemalan catheter was placed in the aorta and digital subtraction angiograph y was used to perform an aortogram. Findings: Aorta: Mild irregularities. RCIA: Mild diffuse plaque with focal small aneurysmal sac in the mid segment. RIIA: Mild to moderate diffuse disease of approximately 50%. RCFA: Distal 30% stenosis. RSFA: Limited evaluation reveals no significant disease in the ostium. LCIA: Moderate diffuse plaque of less than 50% in the proximal to mid segment. TRACIE: Proximal subtotal occlusion due to dissection plaque. LIIA: Moderate diffuse disease. LCFA: Calcified eccentric 60% stenosis involving the ostium of the SFA LSFA: Calcified eccentric 60% stenosis involving the distal STAGE SETTINGS PAINTER. The mid to distal vessel is within n ormal limits. LPOP: No significant disease. Three vessel run-off below the knee is noted. INTERVENTIONAL TECHNIQUE: Based upon the subtotal occlusion of the left external iliac artery likely secondary to large-bore sh eet and intervention was performed. The patient was Arty heparinized. An ACT was checked and it was n oted to be above 200. The Omni Flush catheter was used to cross over into the left common iliac arter y. Next a J-tipped guidewire was placed in the proximal left external iliac artery. Next, a 6 Guatemalan Ansell sheath was introduced and placed in the distal left common iliac artery before the bifurcation . Next, a Glidewire was used to traverse the external iliac artery occlusion as well as the eccentric distal calcified ostial superficial femoral artery occlusion. Subsequently, a 6.0 x 40 mm balloon wa s used to angioplasty the external iliac artery dissection with prolonged inflation. Subsequently, a 4.0 x 20 mm balloon was used to angioplasty the ostial SFA/distal STAGE SETTINGS PAINTER stenosis. Repeat angiography re vealed excellent brisk antegrade flow and there were dopplerable pulses noted in the dorsalis pedis a nd posterior tibial vessels. The Abhay sheath was removed and a 7Fr sheath was placed in the RCFA and sutured in place. 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 Conclusion 1. Left external iliac artery subtotal occlusion, s/p successful angioplasty with a 7 x 80 mm balloon . 2. LSFA stenosis, s/p successful angioplasty with a 4.0 x 20 mm balloon 3. Successful removal of a Impella CP percutaneous left ventricular assist device. Recommendations Aggressive Medical Therapy
--- NOTE | 2016-07-28 16:27 | PDOC ---
PULMONARY PROGRESS NOTES Vitals Vital Signs Date Time Temp Pulse Resp B/P Pulse Ox O2 Delivery O2 Flow Rate FiO2 07/28/16 15:00 07/28/16 15:00 100.0 128 17 92 100.0 07/28/16 14:57 Ventilator Lungs: Other (midline dressing in place. subxyphoid drains ) Labs Laboratory Tests Test 07/26/16 17:21 07/26/16 18:21 07/26/16 19:35 07/26/16 20:40 Glucose (Fingerstick) 161mg/dL (70-99) 143mg/dL (70-99) 185mg/dL (70-99) White Blood Count 10.6x10^3/uL (4.0-11.0) Red Blood Count 3.32x10^6/uL (4.30-5.70) Hemoglobin 10.3g/dL (13.0-17.5) Hematocrit 30.7% (39.0-53.0) Mean Corpuscular Volume 92fL (79-100) Mean Corpuscular Hemoglobin 31pg (25-35) Mean Corpuscular Hemoglobin Concent 34g/dL (31-37) Red Cell Distribution Width 14.7% (11.5-14.5) Platelet Count 91x10^3/uL (140-400) Activated Partial Thromboplast Time 45SEC (24-38) Fibrinogen 295mg/dL (200-440) Test 07/26/16 20:45 07/26/16 21:59 07/26/16 23:09 07/27/16 00:04 Glucose (Fingerstick) 185mg/dL (70-99) 149mg/dL (70-99) 133mg/dL (70-99) 136mg/dL (70-99) Test 07/27/16 00:30 07/27/16 01:07 07/27/16 02:10 07/27/16 04:00 Activated Partial Thromboplast Time 45SEC (24-38) 43SEC (24-38) Glucose (Fingerstick) 132mg/dL (70-99) 134mg/dL (70-99) Test 07/27/16 04:23 07/27/16 04:50 07/27/16 05:20 07/27/16 06:25 Glucose (Fingerstick) 124mg/dL (70-99) 132mg/dL (70-99) 143mg/dL (70-99) White Blood Count 9.2x10^3/uL (4.0-11.0) Red Blood Count 3.05x10^6/uL (4.30-5.70) Hemoglobin 9.7g/dL (13.0-17.5) Hematocrit 27.7% (39.0-53.0) Mean Corpuscular Volume 91fL (79-100) Mean Corpuscular Hemoglobin 32pg (25-35) Mean Corpuscular Hemoglobin Concent 35g/dL (31-37) Red Cell Distribution Width 14.8% (11.5-14.5) Platelet Count 80x10^3/uL (140-400) Sodium Level 142mmol/L (136-145) Potassium Level 4.5mmol/L (3.5-5.1) Chloride Level 111mmol/L (98-107) Carbon Dioxide Level 26mmol/L (21-32) Anion Gap 5 (6-14) Blood Urea Nitrogen 15mg/dL (8-26) Creatinine 1.0mg/dL (0.7-1.3) Estimated GFR (Cockcroft-Gault) 77.0 Glucose Level 127mg/dL (70-99) Calcium Level 8.7mg/dL (8.5-10.1) Magnesium Level 1.7mg/dL (1.8-2.4) Test 07/27/16 07:33 07/27/16 08:00 07/27/16 08:59 07/27/16 10:02 Glucose (Fingerstick) 93mg/dL (70-99) 150mg/dL (70-99) 161mg/dL (70-99) O2 Saturation 95% (92-99) Arterial Blood pH 7.41 (7.35-7.45) Arterial Blood pCO2 at Patient Temp 37mmHg (35-46) Arterial Blood pO2 at Patient Temp 81mmHg (75-108) Arterial Blood HCO3 23mmol/L (21-28) Arterial Blood Base Excess -2mmol/L (-3-3) FiO2 60 Test 07/27/16 11:09 07/27/16 11:50 07/27/16 12:15 07/27/16 13:18 Glucose (Fingerstick) 167mg/dL (70-99) 167mg/dL (70-99) 161mg/dL (70-99) Activated Partial Thromboplast Time 44SEC (24-38) Test 07/27/16 14:23 07/27/16 14:53 07/27/16 15:15 07/27/16 16:45 Bedside Hemoglobin (Calculated) 7.1g/dL (14-18) Bedside Hematocrit 21% (37-52) Bedside Arterial pH 7.32 (7.35-7.45) Bedside Arterial pCO2 40mmHg (35-45) Bedside Arterial pO2 85mmHg (75-100) Bedside Arterial HCO3 21mmol/L (21-28) Bedside Arterial Total CO2 22mmol/L (21-32) Arterial Bld O2 Saturation (Measur) 96% (95-99) Bedside Arterial Blood Base Excess -5mmol/L (0-3) Bedside FiO2 100.0 Bedside Sodium 141mmol/L (135-145) Bedside Potassium 4.1mmol/L (3.5-5.0) Glucose Level 145mg/dL (70-99) 152mg/dL (70-99) Bedside Ionized Calcium (Giovani) 1.26mmol/L (1.13-1.32) Activated Clotting Time 145SEC (90-125) White Blood Count 8.4x10^3/uL (4.0-11.0) 13.2x10^3/uL (4.0-11.0) Hemoglobin 7.9g/dL (13.0-17.5) 10.5g/dL (13.0-17.5) Hematocrit 23.8% (39.0-53.0) 30.9% (39.0-53.0) Platelet Count 60x10^3/uL (140-400) 83x10^3/uL (140-400) Prothrombin Time 25.8SEC (11.7-14.0) 24.8SEC (11.7-14.0) Prothromb Time International Ratio 2.5 (0.8-1.1) 2.4 (0.8-1.1) Activated Partial Thromboplast Time 43SEC (24-38) 50SEC (24-38) Fibrinogen 237mg/dL (200-440) Red Blood Count 3.42x10^6/uL (4.30-5.70) Mean Corpuscular Volume 90fL (79-100) Mean Corpuscular Hemoglobin 31pg (25-35) Mean Corpuscular Hemoglobin Concent 34g/dL (31-37) Red Cell Distribution Width 15.3% (11.5-14.5) Sodium Level 142mmol/L (136-145) Potassium Level 4.7mmol/L (3.5-5.1) Chloride Level 110mmol/L (98-107) Carbon Dioxide Level 22mmol/L (21-32) Anion Gap 10 (6-14) Blood Urea Nitrogen 16mg/dL (8-26) Creatinine 1.0mg/dL (0.7-1.3) Estimated GFR (Cockcroft-Gault) 77.0 Calcium Level 7.5mg/dL (8.5-10.1) Magnesium Level 1.8mg/dL (1.8-2.4) Test 07/27/16 17:04 07/27/16 17:27 07/27/16 18:05 07/27/16 19:09 O2 Saturation 92% (92-99) Arterial Blood pH 7.30 (7.35-7.45) Arterial Blood pCO2 at Patient Temp 40mmHg (35-46) Arterial Blood pO2 at Patient Temp 74mmHg (75-108) Arterial Blood HCO3 19mmol/L (21-28) Arterial Blood Base Excess -7mmol/L (-3-3) FiO2 100 Glucose (Fingerstick) 144mg/dL (70-99) 147mg/dL (70-99) 138mg/dL (70-99) Test 07/27/16 20:15 07/27/16 21:29 07/27/16 22:20 07/27/16 23:08 White Blood Count 10.2x10^3/uL (4.0-11.0) Red Blood Count 2.41x10^6/uL (4.30-5.70) Hemoglobin 7.5g/dL (13.0-17.5) Hematocrit 21.9% (39.0-53.0) Mean Corpuscular Volume 91fL (79-100) Mean Corpuscular Hemoglobin 31pg (25-35) Mean Corpuscular Hemoglobin Concent 34g/dL (31-37) Red Cell Distribution Width 14.6% (11.5-14.5) Platelet Count 106x10^3/uL (140-400) Glucose (Fingerstick) 140mg/dL (70-99) 133mg/dL (70-99) 160mg/dL (70-99) Prothrombin Time 27.2SEC (11.7-14.0) Prothromb Time International Ratio 2.7 (0.8-1.1) Activated Partial Thromboplast Time 46SEC (24-38) Test 07/28/16 00:38 07/28/16 01:31 07/28/16 02:42 07/28/16 03:29 Glucose (Fingerstick) 126mg/dL (70-99) 131mg/dL (70-99) 134mg/dL (70-99) 120mg/dL (70-99) Test 07/28/16 04:34 07/28/16 05:36 07/28/16 06:05 07/28/16 06:32 Glucose (Fingerstick) 125mg/dL (70-99) 111mg/dL (70-99) 117mg/dL (70-99) White Blood Count 12.6x10^3/uL (4.0-11.0) Red Blood Count 2.82x10^6/uL (4.30-5.70) Hemoglobin 8.7g/dL (13.0-17.5) Hematocrit 24.7% (39.0-53.0) Mean Corpuscular Volume 88fL (79-100) Mean Corpuscular Hemoglobin 31pg (25-35) Mean Corpuscular Hemoglobin Concent 35g/dL (31-37) Red Cell Distribution Width 14.5% (11.5-14.5) Platelet Count 79x10^3/uL (140-400) Prothrombin Time 24.6SEC (11.7-14.0) Prothromb Time International Ratio 2.4 (0.8-1.1) Activated Partial Thromboplast Time 38SEC (24-38) Sodium Level 142mmol/L (136-145) Potassium Level 4.4mmol/L (3.5-5.1) Chloride Level 110mmol/L (98-107) Carbon Dioxide Level 26mmol/L (21-32) Anion Gap 6 (6-14) Blood Urea Nitrogen 22mg/dL (8-26) Creatinine 1.2mg/dL (0.7-1.3) Estimated GFR (Cockcroft-Gault) 62.4 Glucose Level 125mg/dL (70-99) Calcium Level 7.8mg/dL (8.5-10.1) Magnesium Level 1.9mg/dL (1.8-2.4) Test 07/28/16 08:00 07/28/16 08:09 07/28/16 11:16 07/28/16 12:52 O2 Saturation 94% (92-99) Arterial Blood pH 7.49 (7.35-7.45) Arterial Blood pCO2 at Patient Temp 30mmHg (35-46) Arterial Blood pO2 at Patient Temp 70mmHg (75-108) Arterial Blood HCO3 22mmol/L (21-28) Arterial Blood Base Excess -1mmol/L (-3-3) FiO2 60 Glucose (Fingerstick) 134mg/dL (70-99) 145mg/dL (70-99) Activated Clotting Time 215sec (92-181) Test 07/28/16 12:55 07/28/16 14:08 O2 Saturation 84% (92-99) Arterial Blood pH 7.36 (7.35-7.45) Arterial Blood pCO2 at Patient Temp 39mmHg (35-46) Arterial Blood pO2 at Patient Temp 51mmHg (75-108) Arterial Blood HCO3 22mmol/L (21-28) Arterial Blood Base Excess -3mmol/L (-3-3) FiO2 100 Glucose (Fingerstick) 141mg/dL (70-99) Laboratory Tests Test 07/27/16 16:45 07/27/16 17:04 07/27/16 17:27 07/27/16 18:05 White Blood Count 13.2x10^3/uL (4.0-11.0) Red Blood Count 3.42x10^6/uL (4.30-5.70) Hemoglobin 10.5g/dL (13.0-17.5) Hematocrit 30.9% (39.0-53.0) Mean Corpuscular Volume 90fL (79-100) Mean Corpuscular Hemoglobin 31pg (25-35) Mean Corpuscular Hemoglobin Concent 34g/dL (31-37) Red Cell Distribution Width 15.3% (11.5-14.5) Platelet Count 83x10^3/uL (140-400) Prothrombin Time 24.8SEC (11.7-14.0) Prothromb Time International Ratio 2.4 (0.8-1.1) Activated Partial Thromboplast Time 50SEC (24-38) Sodium Level 142mmol/L (136-145) Potassium Level 4.7mmol/L (3.5-5.1) Chloride Level 110mmol/L (98-107) Carbon Dioxide Level 22mmol/L (21-32) Anion Gap 10 (6-14) Blood Urea Nitrogen 16mg/dL (8-26) Creatinine 1.0mg/dL (0.7-1.3) Estimated GFR (Cockcroft-Gault) 77.0 Glucose Level 152mg/dL (70-99) Calcium Level 7.5mg/dL (8.5-10.1) Magnesium Level 1.8mg/dL (1.8-2.4) O2 Saturation 92% (92-99) Arterial Blood pH 7.30 (7.35-7.45) Arterial Blood pCO2 at Patient Temp 40mmHg (35-46) Arterial Blood pO2 at Patient Temp 74mmHg (75-108) Arterial Blood HCO3 19mmol/L (21-28) Arterial Blood Base Excess -7mmol/L (-3-3) FiO2 100 Glucose (Fingerstick) 144mg/dL (70-99) 147mg/dL (70-99) Test 07/27/16 19:09 07/27/16 20:15 07/27/16 21:29 07/27/16 22:20 Glucose (Fingerstick) 138mg/dL (70-99) 140mg/dL (70-99) 133mg/dL (70-99) White Blood Count 10.2x10^3/uL (4.0-11.0) Red Blood Count 2.41x10^6/uL (4.30-5.70) Hemoglobin 7.5g/dL (13.0-17.5) Hematocrit 21.9% (39.0-53.0) Mean Corpuscular Volume 91fL (79-100) Mean Corpuscular Hemoglobin 31pg (25-35) Mean Corpuscular Hemoglobin Concent 34g/dL (31-37) Red Cell Distribution Width 14.6% (11.5-14.5) Platelet Count 106x10^3/uL (140-400) Prothrombin Time 27.2SEC (11.7-14.0) Prothromb Time International Ratio 2.7 (0.8-1.1) Activated Partial Thromboplast Time 46SEC (24-38) Test 07/27/16 23:08 07/28/16 00:38 07/28/16 01:31 07/28/16 02:42 Glucose (Fingerstick) 160mg/dL (70-99) 126mg/dL (70-99) 131mg/dL (70-99) 134mg/dL (70-99) Test 07/28/16 03:29 07/28/16 04:34 07/28/16 05:36 07/28/16 06:05 Glucose (Fingerstick) 120mg/dL (70-99) 125mg/dL (70-99) 111mg/dL (70-99) White Blood Count 12.6x10^3/uL (4.0-11.0) Red Blood Count 2.82x10^6/uL (4.30-5.70) Hemoglobin 8.7g/dL (13.0-17.5) Hematocrit 24.7% (39.0-53.0) Mean Corpuscular Volume 88fL (79-100) Mean Corpuscular Hemoglobin 31pg (25-35) Mean Corpuscular Hemoglobin Concent 35g/dL (31-37) Red Cell Distribution Width 14.5% (11.5-14.5) Platelet Count 79x10^3/uL (140-400) Prothrombin Time 24.6SEC (11.7-14.0) Prothromb Time International Ratio 2.4 (0.8-1.1) Activated Partial Thromboplast Time 38SEC (24-38) Sodium Level 142mmol/L (136-145) Potassium Level 4.4mmol/L (3.5-5.1) Chloride Level 110mmol/L (98-107) Carbon Dioxide Level 26mmol/L (21-32) Anion Gap 6 (6-14) Blood Urea Nitrogen 22mg/dL (8-26) Creatinine 1.2mg/dL (0.7-1.3) Estimated GFR (Cockcroft-Gault) 62.4 Glucose Level 125mg/dL (70-99) Calcium Level 7.8mg/dL (8.5-10.1) Magnesium Level 1.9mg/dL (1.8-2.4) Test 07/28/16 06:32 07/28/16 08:00 07/28/16 08:09 07/28/16 11:16 Glucose (Fingerstick) 117mg/dL (70-99) 134mg/dL (70-99) O2 Saturation 94% (92-99) Arterial Blood pH 7.49 (7.35-7.45) Arterial Blood pCO2 at Patient Temp 30mmHg (35-46) Arterial Blood pO2 at Patient Temp 70mmHg (75-108) Arterial Blood HCO3 22mmol/L (21-28) Arterial Blood Base Excess -1mmol/L (-3-3) FiO2 60 Activated Clotting Time 215sec (92-181) Test 07/28/16 12:52 07/28/16 12:55 07/28/16 14:08 Glucose (Fingerstick) 145mg/dL (70-99) 141mg/dL (70-99) O2 Saturation 84% (92-99) Arterial Blood pH 7.36 (7.35-7.45) Arterial Blood pCO2 at Patient Temp 39mmHg (35-46) Arterial Blood pO2 at Patient Temp 51mmHg (75-108) Arterial Blood HCO3 22mmol/L (21-28) Arterial Blood Base Excess -3mmol/L (-3-3) FiO2 100 Medications Active Scripts Medications Dose Route/Sig Days Date Category Amlodipine Besylate 5 Mg Tablet 5 Mg PO DAILY 07/20/16 Reported Pradaxa (Dabigatran Etexilate Mesylate) 150 Mg Capsule 1 Cap PO BID 07/20/16 Reported Metoprolol Succinate ( Xl ) (Metoprolol Succinate) 100 Mg Tab.er.24h 1 Tab PO DAILY 07/20/16 Reported Impression . FULL NOTE DICTATED WILL INCREASE I:E RATION ATTEMPT TO DECREASE PEEP BY 2 EVERY 24 HOURS DECREASE VT TO AVOID BAROTRAUMA, IF POSSIBLE IN AM VANESSA GREY MD Jul 28, 2016 16:27
[2016-07-28 17:39] LABS: HEMATOCRIT 27.1 % (39.0-53.0); HEMOGLOBIN 9.2 g/dL (13.0-17.5); RED BLOOD COUNT 3.03 x10^6/uL (4.30-5.70); WHITE BLOOD COUNT 15.7 x10^3/uL (4.0-11.0)
[2016-07-28 17:49] LABS: INR 2.6 (0.8-1.1)
[2016-07-28 17:52] LABS: CALCIUM 7.8 mg/dL (8.5-10.1); CREATININE 1.2 mg/dL (0.7-1.3); GFR 62.4; POTASSIUM 3.8 mmol/L (3.5-5.1)
[2016-07-28] MEDS: POTASSIUM CHLORIDE 20MEQ 50 ML IV SCH ×2 (18:31→19:39)
[2016-07-28] MEDS: MIDAZOLAM PREMIX 100 ML IV PRN (19:40)
[2016-07-28] MEDS: ATORVASTATIN CALCIUM 40 MG TABLET. PO SCH (21:22)
[2016-07-28] MEDS: VASOPRESSIN 40 UNIT in IV DEXTROSE 5% 100 ML IV PRN (22:48)
[2016-07-29] VITALS (31 sets, daily range): BP systolic 72–158; BP diastolic 49–86
[2016-07-29] MEDS: FUROSEMIDE INJ 100 MG in IV NORMAL SALINE 100ML 100 ML IV PRN ×2 (02:10→21:36)
[2016-07-29] MEDS: INSULIN REGULAR VIAL 150 UNIT in 0.9 % SODIUM CHLORIDE 150ML 150 ML IV PRN (03:03)
[2016-07-29] MEDS: AMIODARONE 450 MG in IV DEXTROSE 5% 250 ML IV PRN ×2 (04:10→19:40)
[2016-07-29 05:24] LABS: BASO % 0 % (0-3); EOS % 0 % (0-3); HEMATOCRIT 23.1 % (39.0-53.0); HEMOGLOBIN 8.1 g/dL (13.0-17.5); LYMPH # 1.7 x10^3/uL (1.0-4.8); LYMPH % 15 % (24-48); MEAN CORPUSCULAR HEMOGLOBIN 31 pg (25-35); MEAN CORPUSCULAR HGB CONC 35 g/dL (31-37); MEAN CORPUSCULAR VOLUME 88 fL (79-100); MONO % 8 % (0-9); NEUT % 76 % (31-73); PLATELET COUNT 72 x10^3/uL (140-400); RED BLOOD COUNT 2.62 x10^6/uL (4.30-5.70); RED CELL DISTRIBUTION WIDTH 14.9 % (11.5-14.5); WHITE BLOOD COUNT 10.9 x10^3/uL (4.0-11.0)
[2016-07-29 05:45] LABS: ALBUMIN 2.6 g/dL (3.4-5.0); ALBUMIN/GLOBULIN RATIO 1.4 (1.0-1.7); CALCIUM 7.7 mg/dL (8.5-10.1); CREATININE 1.4 mg/dL (0.7-1.3); GFR 52.2; MAGNESIUM 2.2 mg/dL (1.8-2.4); POTASSIUM 3.6 mmol/L (3.5-5.1); TOTAL BILIRUBIN 5.6 mg/dL (0.2-1.0); TOTAL PROTEIN 4.4 g/dL (6.4-8.2)
[2016-07-29] MEDS: PIPERACILLIN/TAZOBACTAM 3.375 GM in IV NORMAL SALINE 50ML 50 ML IV SCH ×3 (05:59→18:13)
[2016-07-29] MEDS: POTASSIUM CHLORIDE 20MEQ 50 ML IV SCH ×5 (06:32→22:39)
[2016-07-29 07:59] LABS: HCO3 ABG 28 mmol/L (21-28); PCO2 ABG 37 mmHg (35-46); PH ABG 7.49 (7.35-7.45); PO2 ABG 95 mmHg (75-108); SAT O2 ABG 96 % (92-99)
[2016-07-29] MEDS: ALBUTEROL SULFATE 2.5 MG/3 ML NEBU. NEB SCH ×4 (08:38→20:24)
[2016-07-29 08:52] LABS: FIO2 ABG 50
[2016-07-29] MEDS: ASPIRIN 300 MG SUPP.RECT PR SCH (09:00)
[2016-07-29] MEDS: CHLORHEXIDINE 0.12% 15 ML MOUTHWASH. MM SCH ×2 (09:36→20:51)
[2016-07-29] MEDS: MINERAL OIL/PETROLATUM,WHITE OPHTH OINT 3.5GM TUBE. OU SCH ×2 (09:37→21:39)
[2016-07-29] MEDS: DOCUSATE SODIUM 100 MG CAPSULE. PO SCH (09:54)
[2016-07-29] MEDS: METOCLOPRAMIDE HCL 10 MG/2 ML VIAL. IV PRN (09:54)
[2016-07-29] MEDS: ASPIRIN ENTERIC COATED 325 MG TABLET.DR. PO SCH (09:54)
[2016-07-29] MEDS: FAMOTIDINE 20 MG/2 ML VIAL IVP SCH ×2 (09:54→20:51)
--- NOTE | 2016-07-29 09:57 | PDOC ---
CARDIO Progress Notes Date and Time Date of Service 07/29/2016 Time of Evaluation 0948 Subjective Subjective: Other (intubated/sedated) Vitals Vitals Vital Signs Date Time Temp Pulse Resp B/P Pulse Ox O2 Delivery O2 Flow Rate FiO2 07/29/16 08:39 96 Ventilator 07/29/16 06:00 100.9 120 16 123/61 100.9 07/28/16 16:55 2.0 Weight Weight [ ] Stability Assessment Stability Assess.: unstable for transfer Input and Output Intake and Output Intake and Output 07/29/16 07:00 Intake Total 4107.16 ml Output Total 5245 ml Balance -1137.84 ml IV Total 3510.16 ml Tube Feeding 597 ml Output Urine Total 4685 ml Gastric Drainage Total 25 ml Chest Tube Drainage Total 535 ml Laboratory Labs Laboratory Tests Test 07/28/16 11:16 07/28/16 12:52 07/28/16 12:55 07/28/16 14:08 Activated Clotting Time 215sec (92-181) Glucose (Fingerstick) 145mg/dL (70-99) 141mg/dL (70-99) O2 Saturation 84% (92-99) Arterial Blood pH 7.36 (7.35-7.45) Arterial Blood pCO2 at Patient Temp 39mmHg (35-46) Arterial Blood pO2 at Patient Temp 51mmHg (75-108) Arterial Blood HCO3 22mmol/L (21-28) Arterial Blood Base Excess -3mmol/L (-3-3) FiO2 100 Test 07/28/16 16:06 07/28/16 17:30 07/28/16 17:33 07/28/16 18:35 Glucose (Fingerstick) 158mg/dL (70-99) 163mg/dL (70-99) 161mg/dL (70-99) White Blood Count 15.7x10^3/uL (4.0-11.0) Red Blood Count 3.03x10^6/uL (4.30-5.70) Hemoglobin 9.2g/dL (13.0-17.5) Hematocrit 27.1% (39.0-53.0) Mean Corpuscular Volume 89fL (79-100) Mean Corpuscular Hemoglobin 30pg (25-35) Mean Corpuscular Hemoglobin Concent 34g/dL (31-37) Red Cell Distribution Width 15.0% (11.5-14.5) Platelet Count 81x10^3/uL (140-400) Prothrombin Time 26.0SEC (11.7-14.0) Prothromb Time International Ratio 2.6 (0.8-1.1) Activated Partial Thromboplast Time 42SEC (24-38) Sodium Level 143mmol/L (136-145) Potassium Level 3.8mmol/L (3.5-5.1) Chloride Level 107mmol/L (98-107) Carbon Dioxide Level 29mmol/L (21-32) Anion Gap 7 (6-14) Blood Urea Nitrogen 23mg/dL (8-26) Creatinine 1.2mg/dL (0.7-1.3) Estimated GFR (Cockcroft-Gault) 62.4 Glucose Level 156mg/dL (70-99) Calcium Level 7.8mg/dL (8.5-10.1) Test 07/28/16 19:41 07/28/16 20:27 07/28/16 21:31 07/28/16 22:34 Glucose (Fingerstick) 140mg/dL (70-99) 131mg/dL (70-99) 146mg/dL (70-99) 134mg/dL (70-99) Test 07/28/16 23:29 07/29/16 00:37 07/29/16 01:48 07/29/16 02:49 Glucose (Fingerstick) 144mg/dL (70-99) 131mg/dL (70-99) 134mg/dL (70-99) 127mg/dL (70-99) Test 07/29/16 03:53 07/29/16 04:58 07/29/16 05:00 07/29/16 06:04 Glucose (Fingerstick) 139mg/dL (70-99) 147mg/dL (70-99) 151mg/dL (70-99) White Blood Count 10.9x10^3/uL (4.0-11.0) Red Blood Count 2.62x10^6/uL (4.30-5.70) Hemoglobin 8.1g/dL (13.0-17.5) Hematocrit 23.1% (39.0-53.0) Mean Corpuscular Volume 88fL (79-100) Mean Corpuscular Hemoglobin 31pg (25-35) Mean Corpuscular Hemoglobin Concent 35g/dL (31-37) Red Cell Distribution Width 14.9% (11.5-14.5) Platelet Count 72x10^3/uL (140-400) Neutrophils (%) (Auto) 76% (31-73) Lymphocytes (%) (Auto) 15% (24-48) Monocytes (%) (Auto) 8% (0-9) Eosinophils (%) (Auto) 0% (0-3) Basophils (%) (Auto) 0% (0-3) Neutrophils # (Auto) 8.3x10^3uL (1.8-7.7) Lymphocytes # (Auto) 1.7x10^3/uL (1.0-4.8) Monocytes # (Auto) 0.9x10^3/uL (0.0-1.1) Eosinophils # (Auto) 0.0x10^3/uL (0.0-0.7) Basophils # (Auto) 0.0x10^3/uL (0.0-0.2) Sodium Level 144mmol/L (136-145) Potassium Level 3.6mmol/L (3.5-5.1) Chloride Level 108mmol/L (98-107) Carbon Dioxide Level 30mmol/L (21-32) Anion Gap 6 (6-14) Blood Urea Nitrogen 26mg/dL (8-26) Creatinine 1.4mg/dL (0.7-1.3) Estimated GFR (Cockcroft-Gault) 52.2 BUN/Creatinine Ratio 19 (6-20) Glucose Level 146mg/dL (70-99) Calcium Level 7.7mg/dL (8.5-10.1) Magnesium Level 2.2mg/dL (1.8-2.4) Total Bilirubin 5.6mg/dL (0.2-1.0) Aspartate Amino Transf (AST/SGOT) 225U/L (15-37) Alanine Aminotransferase (ALT/SGPT) 327U/L (16-63) Alkaline Phosphatase 39U/L (46-116) Total Protein 4.4g/dL (6.4-8.2) Albumin 2.6g/dL (3.4-5.0) Albumin/Globulin Ratio 1.4 (1.0-1.7) Test 07/29/16 06:59 07/29/16 08:00 Glucose (Fingerstick) 158mg/dL (70-99) O2 Saturation 96% (92-99) Arterial Blood pH 7.49 (7.35-7.45) Arterial Blood pCO2 at Patient Temp 37mmHg (35-46) Arterial Blood pO2 at Patient Temp 95mmHg (75-108) Arterial Blood HCO3 28mmol/L (21-28) Arterial Blood Base Excess 4mmol/L (-3-3) FiO2 50 Case Discussion Case Discussed with: Other (RN) Physical Exam Chest: Symmetric, Other (remains with oral ETT; mech vent; chest open with Impella LVAD) LUNGS: Other (coarse, decreased bases anteriorly) Heart: S1S2, irregularly irregular, other (atrial fib RVR - rates 130) Abdomen: Other (soft) Extremities: Other (anasarca; DP/PT pulses by Doppler) Neurology: other (sedated) Assessment Assessment 1. STEMI troponin peaked @ 96.465 CABG on 07/25/2016 with FLETCHER to LAD; SVG to LAD; SVG to OM1 and SVG to RPDA - ? attempt to close chest today VF arrest after chest closed; reopened and placed back on bypass then converted to LVAD (Impella) post-operative LA on IV amiodarone gtt since 07/25/16 2. cardiogenic shock Impella removed 07/28/2016 - LVEF ~ 25% by echo TTE on 07/26/2016 with severe global hypokinesis of the left ventricle distal 2/3 of the LV is severely hypokinetic with akinesis of the mid to distal LAD and apex LVEF depressed at about 20% CI = 2.4 on 7.5 mcg of Dobutamine also remains on vasopressin 3. ischemic cardiomyopathy LVEF mildly depressed @ 45% on echo pre-op diuresing with IV gtt of furosemide 4. HTN BP labile; varying requirements for vasopressive support 5. HLD statin therapy 6. atrial fib chronic; has been in and out of atrial fib ? rate control off anticoagulation for now NERY DANGELO APRN Jul 29, 2016 09:57
--- NOTE | 2016-07-29 10:15 | CONS ---
DATE OF CONSULTATION: 07/28/2016 ATTENDING PHYSICIAN: Rajwinder Louis MD REASON FOR CONSULTATION: The patient is seen in pulmonary consultation at the request of Dr. Muse for vent management status post coronary artery bypass grafting. HISTORY OF PRESENT ILLNESS: The patient is a 56-year-old that was admitted with unstable angina on 07/20/2016. He underwent coronary angiogram revealing severe three- vessel coronary artery disease. The patient underwent coronary artery bypass grafting on 07/25/2016. He had coronary artery bypass grafting x 3, left internal mammary artery to the left anterior descending, saphenous vein to left anterior descending, saphenous vein to the obtuse margin. He also has a saphenous vein due to the right posterior descending artery. His postop course has been very tenuous. He has actually been in cardiogenic shock and had a cardiac arrest. He has had removal of the left ventricular assist device today, Impella 3.0. He had primary repair of common femoral artery. He is currently on multiple pressors including Levophed, vasopressin and dobutamine. He is receiving some IV albumin. On 07/27/2016, he underwent mediastinal washout and closure of the sternotomy. On 07/25/2016, he underwent placement of a left ventricular assist device, which has been removed since then. I was asked to helping weaning him off of mechanical ventilation. The history is obtained by reviewing the current documentation. The patient had a prior history of AFib and hypertension. No history given of COPD. FAMILY HISTORY: Heart disease. SOCIAL HISTORY: He smoked 1 pack per day for 40-50 years. Rarely used alcohol. REVIEW OF SYSTEMS: Unobtainable secondary to the patient's condition. ALLERGIES: No known drug allergies. CURRENT MEDICATIONS: List was reviewed. Please see the MRAD. He is receiving multiple pressors as indicated above. He is currently on IV Zosyn. PHYSICAL EXAMINATION: GENERAL: The patient is sedated. He is currently not assisting the ventilator, using assist control, tidal volume 550, rate of 16, ____ PEEP, 80% FIO2. HEENT: Eyes, the sclerae were nonicteric. NECK: Jugular venous distention could not be assessed secondary to body habitus. CHEST: Full expansion. LUNGS: Anteriorly were clear. No wheezes. CARDIOVASCULAR: Regular rate and rhythm with S1, S2, no S3. ABDOMEN: Obese and soft. EXTREMITIES: He had some boots in place. There was pitting edema. NEUROLOGIC: The patient was sedated. LABORATORY DATA: White count was 12,000, hemoglobin and hematocrit 8.7 and 24, latest arterial blood gas pH of 7.36, PaCO2 of 39, pO2 of 51. Since then, his FiO2 has been increased. The saturations have been improved. Electrolytes were noted. BUN and creatinine normal. UA was noted. Toxicology screen upon admission was negative. I reviewed his x-ray. There is no effusion on the right and cardiomegaly. IMPRESSION: 1. Expected respiratory failure, status post coronary artery bypass grafting. 2. Cardiogenic shock. 3. Early post-myocardial infarction complicated with ventricular fibrillation leading to cardiogenic shock. 4. Status post implantation of Impella from mechanical circulating support. 5. 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 6. Tobacco use in remission. Spirometry revealed an FEV1, which was 3.2 liters preoperatively. 7. Nutrition, currently on tube feeding. 8. History of hypertension. 9. Severe cardiomyopathy ejection fraction 20%. 10. Peripheral artery disease. 11. Atrial fibrillation. PLAN: 1. We will continue current mechanical support to increase I:E ratio and attempted decreasing PEEP by 2 every 24 hours, decrease FiO2, continue once the patient improves, will attempt decreasing total volume to avoid any further barotrauma. 2. Continue nutritional support with tube feeding. 3. Continue pressors to maintain mean arterial pressure above 65. 4. Diurese, currently on IV Lasix. 5. Continue empiric antibiotics. 6. Continue IV digoxin. Dr. Muse and team, I do appreciate the privilege in participating in the patient's care, total cumulative critical care time of 45 minutes. VANESSA GREY MD DR: ANA/pato JOB#: [id number] / [id number]
--- NOTE | 2016-07-29 11:32 | PDOC ---
PROGRESS NOTES Chief Complaint Chief Complaint Chest pain STEMI 1. STEMI: 3-vessel dz by cardiac cath (07/20/16). s/p CABG on 07/25/2016 : FLETCHER to LAD; SVG to LAD; SVG to OM1 and SVG to RPDA. VF arrest after chest closed; reopened and placed back on bypass then converted to LVAD. chest closed yesterday 2. cardiogenic shock: post op, on LVAD, d/c.ed today 3. 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 D/w [facility], Dr Mattson 4. Cardiomyopathy: EF 455 pre-op, rpt echo today: 20% 5. Afib: rate controlled on amiodarone gtt 6. HTN: meds as tolerated; currently on pressors; very fragile BPs, fluid dependent 7. Empiric Zosyn currently. ?switch to lower fluid load Abx for prophylaxis 8. HLD: on statin, currently on hold 9. DM: on insulin gtt 10: Nutrition: cautious NG feed today Prognosis: critical CC time 40 min Vitals Vitals Vital Signs Date Time Temp Pulse Resp B/P Pulse Ox O2 Delivery O2 Flow Rate FiO2 07/29/16 11:14 16 91 Ventilator 07/29/16 10:00 07/29/16 10:00 100.5 138 100.5 07/28/16 16:55 2.0 Physical Exam General: Other (sedated, intubated, immobilized on vec) Heart: Other (irregular) Lungs: Other (midline dressing in place. subxyphoid drains ) Abdomen: Soft, Other (distended) Extremities: Other (+ edema x4) Skin: No rashes, Other (2+edema throughout) Labs LABS Laboratory Tests Test 07/28/16 12:52 07/28/16 12:55 07/28/16 14:08 07/28/16 16:06 Glucose (Fingerstick) 145mg/dL (70-99) 141mg/dL (70-99) 158mg/dL (70-99) O2 Saturation 84% (92-99) Arterial Blood pH 7.36 (7.35-7.45) Arterial Blood pCO2 at Patient Temp 39mmHg (35-46) Arterial Blood pO2 at Patient Temp 51mmHg (75-108) Arterial Blood HCO3 22mmol/L (21-28) Arterial Blood Base Excess -3mmol/L (-3-3) FiO2 100 Test 07/28/16 17:30 07/28/16 17:33 07/28/16 18:35 07/28/16 19:41 White Blood Count 15.7x10^3/uL (4.0-11.0) Red Blood Count 3.03x10^6/uL (4.30-5.70) Hemoglobin 9.2g/dL (13.0-17.5) Hematocrit 27.1% (39.0-53.0) Mean Corpuscular Volume 89fL (79-100) Mean Corpuscular Hemoglobin 30pg (25-35) Mean Corpuscular Hemoglobin Concent 34g/dL (31-37) Red Cell Distribution Width 15.0% (11.5-14.5) Platelet Count 81x10^3/uL (140-400) Prothrombin Time 26.0SEC (11.7-14.0) Prothromb Time International Ratio 2.6 (0.8-1.1) Activated Partial Thromboplast Time 42SEC (24-38) Sodium Level 143mmol/L (136-145) Potassium Level 3.8mmol/L (3.5-5.1) Chloride Level 107mmol/L (98-107) Carbon Dioxide Level 29mmol/L (21-32) Anion Gap 7 (6-14) Blood Urea Nitrogen 23mg/dL (8-26) Creatinine 1.2mg/dL (0.7-1.3) Estimated GFR (Cockcroft-Gault) 62.4 Glucose Level 156mg/dL (70-99) Calcium Level 7.8mg/dL (8.5-10.1) Glucose (Fingerstick) 163mg/dL (70-99) 161mg/dL (70-99) 140mg/dL (70-99) Test 07/28/16 20:27 07/28/16 21:31 07/28/16 22:34 07/28/16 23:29 Glucose (Fingerstick) 131mg/dL (70-99) 146mg/dL (70-99) 134mg/dL (70-99) 144mg/dL (70-99) Test 07/29/16 00:37 07/29/16 01:48 07/29/16 02:49 07/29/16 03:53 Glucose (Fingerstick) 131mg/dL (70-99) 134mg/dL (70-99) 127mg/dL (70-99) 139mg/dL (70-99) Test 07/29/16 04:58 07/29/16 05:00 07/29/16 06:04 07/29/16 06:59 Glucose (Fingerstick) 147mg/dL (70-99) 151mg/dL (70-99) 158mg/dL (70-99) White Blood Count 10.9x10^3/uL (4.0-11.0) Red Blood Count 2.62x10^6/uL (4.30-5.70) Hemoglobin 8.1g/dL (13.0-17.5) Hematocrit 23.1% (39.0-53.0) Mean Corpuscular Volume 88fL (79-100) Mean Corpuscular Hemoglobin 31pg (25-35) Mean Corpuscular Hemoglobin Concent 35g/dL (31-37) Red Cell Distribution Width 14.9% (11.5-14.5) Platelet Count 72x10^3/uL (140-400) Neutrophils (%) (Auto) 76% (31-73) Lymphocytes (%) (Auto) 15% (24-48) Monocytes (%) (Auto) 8% (0-9) Eosinophils (%) (Auto) 0% (0-3) Basophils (%) (Auto) 0% (0-3) Neutrophils # (Auto) 8.3x10^3uL (1.8-7.7) Lymphocytes # (Auto) 1.7x10^3/uL (1.0-4.8) Monocytes # (Auto) 0.9x10^3/uL (0.0-1.1) Eosinophils # (Auto) 0.0x10^3/uL (0.0-0.7) Basophils # (Auto) 0.0x10^3/uL (0.0-0.2) Sodium Level 144mmol/L (136-145) Potassium Level 3.6mmol/L (3.5-5.1) Chloride Level 108mmol/L (98-107) Carbon Dioxide Level 30mmol/L (21-32) Anion Gap 6 (6-14) Blood Urea Nitrogen 26mg/dL (8-26) Creatinine 1.4mg/dL (0.7-1.3) Estimated GFR (Cockcroft-Gault) 52.2 BUN/Creatinine Ratio 19 (6-20) Glucose Level 146mg/dL (70-99) Calcium Level 7.7mg/dL (8.5-10.1) Magnesium Level 2.2mg/dL (1.8-2.4) Total Bilirubin 5.6mg/dL (0.2-1.0) Aspartate Amino Transf (AST/SGOT) 225U/L (15-37) Alanine Aminotransferase (ALT/SGPT) 327U/L (16-63) Alkaline Phosphatase 39U/L (46-116) Total Protein 4.4g/dL (6.4-8.2) Albumin 2.6g/dL (3.4-5.0) Albumin/Globulin Ratio 1.4 (1.0-1.7) Test 07/29/16 08:00 O2 Saturation 96% (92-99) Arterial Blood pH 7.49 (7.35-7.45) Arterial Blood pCO2 at Patient Temp 37mmHg (35-46) Arterial Blood pO2 at Patient Temp 95mmHg (75-108) Arterial Blood HCO3 28mmol/L (21-28) Arterial Blood Base Excess 4mmol/L (-3-3) FiO2 50 Review of Systems Review of Systems intub.ed sedated PANTERA MARTINEZ MD Jul 29, 2016 11:32
--- NOTE | 2016-07-29 14:14 | PDOC ---
Progress Note Subjective Subjective Overall stabilizing and doing well. Cardiac index has been above 2, he is on 5mcg of dobutamine and 0.04 of vasopressin. He has been normotensive. He remains in atrial fibrillation which is chronic. Vent settings have significantly reduced and today he is on FiO2 of 50% and a PEEP of 8 with good oxygenation and ventilation. He has been diuresing well approximately 200 mL an hour on a Lasix drip at 5 mg per hour. He is on Versed and fentanyl for sedation but he is intermittently alert and responsive. His left foot has good Doppler signals. He is receiving trickle tube feeds at 10 mL which she seems to be tolerating. ROS ROS Unable to obtain-intubated/sedated Vital Sign Vital Signs Vital Signs Date Time Temp Pulse Resp B/P Pulse Ox O2 Delivery O2 Flow Rate FiO2 07/29/16 11:47 96 Ventilator 07/29/16 11:14 16 07/29/16 11:00 07/29/16 11:00 136 07/29/16 10:00 100.5 100.5 07/28/16 16:55 2.0 Physical Exam PHYSICAL EXAM PHYSICAL EXAM GENERAL: Intubated sedated HEENT: Pupils reactive NECK: Supple LUNGS: Diffuse crackles HEART: S1S2 CHEST: sternotomy: D/C/I ABD: Soft, NT EXT: Anasarca, no cyanosis BALL ENDER: Intubated sedated, was alert this morning with purposeful movements SKIN: No rash IV: ok Labs Lab Laboratory Tests Test 07/28/16 14:08 07/28/16 16:06 07/28/16 17:30 07/28/16 17:33 Glucose (Fingerstick) 141mg/dL (70-99) 158mg/dL (70-99) 163mg/dL (70-99) White Blood Count 15.7x10^3/uL (4.0-11.0) Red Blood Count 3.03x10^6/uL (4.30-5.70) Hemoglobin 9.2g/dL (13.0-17.5) Hematocrit 27.1% (39.0-53.0) Mean Corpuscular Volume 89fL (79-100) Mean Corpuscular Hemoglobin 30pg (25-35) Mean Corpuscular Hemoglobin Concent 34g/dL (31-37) Red Cell Distribution Width 15.0% (11.5-14.5) Platelet Count 81x10^3/uL (140-400) Prothrombin Time 26.0SEC (11.7-14.0) Prothromb Time International Ratio 2.6 (0.8-1.1) Activated Partial Thromboplast Time 42SEC (24-38) Sodium Level 143mmol/L (136-145) Potassium Level 3.8mmol/L (3.5-5.1) Chloride Level 107mmol/L (98-107) Carbon Dioxide Level 29mmol/L (21-32) Anion Gap 7 (6-14) Blood Urea Nitrogen 23mg/dL (8-26) Creatinine 1.2mg/dL (0.7-1.3) Estimated GFR (Cockcroft-Gault) 62.4 Glucose Level 156mg/dL (70-99) Calcium Level 7.8mg/dL (8.5-10.1) Test 07/28/16 18:35 07/28/16 19:41 07/28/16 20:27 07/28/16 21:31 Glucose (Fingerstick) 161mg/dL (70-99) 140mg/dL (70-99) 131mg/dL (70-99) 146mg/dL (70-99) Test 07/28/16 22:34 07/28/16 23:29 07/29/16 00:37 07/29/16 01:48 Glucose (Fingerstick) 134mg/dL (70-99) 144mg/dL (70-99) 131mg/dL (70-99) 134mg/dL (70-99) Test 07/29/16 02:49 07/29/16 03:53 07/29/16 04:58 07/29/16 05:00 Glucose (Fingerstick) 127mg/dL (70-99) 139mg/dL (70-99) 147mg/dL (70-99) White Blood Count 10.9x10^3/uL (4.0-11.0) Red Blood Count 2.62x10^6/uL (4.30-5.70) Hemoglobin 8.1g/dL (13.0-17.5) Hematocrit 23.1% (39.0-53.0) Mean Corpuscular Volume 88fL (79-100) Mean Corpuscular Hemoglobin 31pg (25-35) Mean Corpuscular Hemoglobin Concent 35g/dL (31-37) Red Cell Distribution Width 14.9% (11.5-14.5) Platelet Count 72x10^3/uL (140-400) Neutrophils (%) (Auto) 76% (31-73) Lymphocytes (%) (Auto) 15% (24-48) Monocytes (%) (Auto) 8% (0-9) Eosinophils (%) (Auto) 0% (0-3) Basophils (%) (Auto) 0% (0-3) Neutrophils # (Auto) 8.3x10^3uL (1.8-7.7) Lymphocytes # (Auto) 1.7x10^3/uL (1.0-4.8) Monocytes # (Auto) 0.9x10^3/uL (0.0-1.1) Eosinophils # (Auto) 0.0x10^3/uL (0.0-0.7) Basophils # (Auto) 0.0x10^3/uL (0.0-0.2) Sodium Level 144mmol/L (136-145) Potassium Level 3.6mmol/L (3.5-5.1) Chloride Level 108mmol/L (98-107) Carbon Dioxide Level 30mmol/L (21-32) Anion Gap 6 (6-14) Blood Urea Nitrogen 26mg/dL (8-26) Creatinine 1.4mg/dL (0.7-1.3) Estimated GFR (Cockcroft-Gault) 52.2 BUN/Creatinine Ratio 19 (6-20) Glucose Level 146mg/dL (70-99) Calcium Level 7.7mg/dL (8.5-10.1) Magnesium Level 2.2mg/dL (1.8-2.4) Total Bilirubin 5.6mg/dL (0.2-1.0) Aspartate Amino Transf (AST/SGOT) 225U/L (15-37) Alanine Aminotransferase (ALT/SGPT) 327U/L (16-63) Alkaline Phosphatase 39U/L (46-116) Total Protein 4.4g/dL (6.4-8.2) Albumin 2.6g/dL (3.4-5.0) Albumin/Globulin Ratio 1.4 (1.0-1.7) Test 07/29/16 06:04 07/29/16 06:59 07/29/16 08:00 Glucose (Fingerstick) 151mg/dL (70-99) 158mg/dL (70-99) O2 Saturation 96% (92-99) Arterial Blood pH 7.49 (7.35-7.45) Arterial Blood pCO2 at Patient Temp 37mmHg (35-46) Arterial Blood pO2 at Patient Temp 95mmHg (75-108) Arterial Blood HCO3 28mmol/L (21-28) Arterial Blood Base Excess 4mmol/L (-3-3) FiO2 50 Objective Assessment Status post CABG 3 for severe ischemic cardiomyopathy, large anterior STEMI with troponin of 100, with early postoperative myocardial infarction/V. fib, leading to cardiogenic shock, placement of the vein graft to the LAD and impella for mechanical circulatory support and open chest. Sternotomy was successfully closed 2 days ago and the LVAD was removed yesterday. Overall stabilizing and doing well. Cardiac index has been above 2, he is on 5mcg of dobutamine and 0.04 of vasopressin. He has been normotensive. He remains in atrial fibrillation which is chronic. Vent settings have significantly reduced and today he is on FiO2 of 50% and a PEEP of 8 with good oxygenation and ventilation. He has been diuresing well approximately 200 mL an hour on a Lasix drip at 5 mg per hour. He is on Versed and fentanyl for sedation but he is intermittently alert and responsive. His left foot has good Doppler signals. He is receiving trickle tube feeds at 10 mL which she seems to be tolerating. Minimal output from the mediastinal and pleural tubes. Plan Plan of Care Wean FiO2 to 40% today and keep PEEP at 8. Will try to reduce PEEP to 5 tomorrow. Keep dopamine at 5 mcg-no need to wean for now, okay to manage vasoplegia / hypotension with vasopressin Continue Lasix drip at 5 mg per hour Try and minimize fluid input/piggybacks Since we know that BALL ENDER function is okay, and we have no plans on extubating today, I would keep him lightly sedated for now Reduce amiodarone drip to 0.5mg for A. fib control Continue IV Zosyn and vancomycin for previous open chest Keep chest tubes in for now Increased tube feeds to 20 miles per hour My plan is to ultimately try to extubate over the next 2-3 days OLGA LOPEZ MD Jul 29, 2016 14:14
--- NOTE | 2016-07-29 15:50 | RAD ---
Portable chest, 07/29/2016: History: Congestive heart failure Comparison is made to yesterday's study. The ET tube tip lies well above the clara. An NG tube extends into the stomach. A right jugular Hibernia-Anita catheter extends into the main pulmonary artery region. There appear to be 2 mediastinal drains and a left chest tube in place. The heart is at the upper limits of normal in size. The pulmonary vascularity is better defined with partial clearing of the perihilar and basilar infiltrates. The hemidiaphragms are better delineated. Right pleural fluid appears to have largely resolved, although some pleural fluid may be layering posteriorly. There is no evidence of pneumothorax. IMPRESSION: 1. Stable tube positions. 2. Improving pulmonary infiltrates with mild residual perihilar-perivascular pulmonary edema. 3. Resolving pleural effusions.
--- NOTE | 2016-07-29 16:05 | PDOC ---
PULMONARY PROGRESS NOTES Subjective PT SEDATED Vitals Vital Signs Date Time Temp Pulse Resp B/P Pulse Ox O2 Delivery O2 Flow Rate FiO2 07/29/16 15:44 98 Ventilator 07/29/16 15:00 112/64 07/29/16 14:42 16 07/29/16 13:00 100.4 100.4 07/29/16 12:30 112 07/28/16 16:55 2.0 Lungs: Clear Cardiovascular: S1, S2 Abdomen: Soft Extremities: Other (DECREASE EDEMA) Skin: Warm Labs Laboratory Tests Test 07/27/16 16:45 07/27/16 17:04 07/27/16 17:27 07/27/16 18:05 White Blood Count 13.2x10^3/uL (4.0-11.0) Red Blood Count 3.42x10^6/uL (4.30-5.70) Hemoglobin 10.5g/dL (13.0-17.5) Hematocrit 30.9% (39.0-53.0) Mean Corpuscular Volume 90fL (79-100) Mean Corpuscular Hemoglobin 31pg (25-35) Mean Corpuscular Hemoglobin Concent 34g/dL (31-37) Red Cell Distribution Width 15.3% (11.5-14.5) Platelet Count 83x10^3/uL (140-400) Prothrombin Time 24.8SEC (11.7-14.0) Prothromb Time International Ratio 2.4 (0.8-1.1) Activated Partial Thromboplast Time 50SEC (24-38) Sodium Level 142mmol/L (136-145) Potassium Level 4.7mmol/L (3.5-5.1) Chloride Level 110mmol/L (98-107) Carbon Dioxide Level 22mmol/L (21-32) Anion Gap 10 (6-14) Blood Urea Nitrogen 16mg/dL (8-26) Creatinine 1.0mg/dL (0.7-1.3) Estimated GFR (Cockcroft-Gault) 77.0 Glucose Level 152mg/dL (70-99) Calcium Level 7.5mg/dL (8.5-10.1) Magnesium Level 1.8mg/dL (1.8-2.4) O2 Saturation 92% (92-99) Arterial Blood pH 7.30 (7.35-7.45) Arterial Blood pCO2 at Patient Temp 40mmHg (35-46) Arterial Blood pO2 at Patient Temp 74mmHg (75-108) Arterial Blood HCO3 19mmol/L (21-28) Arterial Blood Base Excess -7mmol/L (-3-3) FiO2 100 Glucose (Fingerstick) 144mg/dL (70-99) 147mg/dL (70-99) Test 07/27/16 19:09 07/27/16 20:15 07/27/16 21:29 07/27/16 22:20 Glucose (Fingerstick) 138mg/dL (70-99) 140mg/dL (70-99) 133mg/dL (70-99) White Blood Count 10.2x10^3/uL (4.0-11.0) Red Blood Count 2.41x10^6/uL (4.30-5.70) Hemoglobin 7.5g/dL (13.0-17.5) Hematocrit 21.9% (39.0-53.0) Mean Corpuscular Volume 91fL (79-100) Mean Corpuscular Hemoglobin 31pg (25-35) Mean Corpuscular Hemoglobin Concent 34g/dL (31-37) Red Cell Distribution Width 14.6% (11.5-14.5) Platelet Count 106x10^3/uL (140-400) Prothrombin Time 27.2SEC (11.7-14.0) Prothromb Time International Ratio 2.7 (0.8-1.1) Activated Partial Thromboplast Time 46SEC (24-38) Test 07/27/16 23:08 07/28/16 00:38 07/28/16 01:31 07/28/16 02:42 Glucose (Fingerstick) 160mg/dL (70-99) 126mg/dL (70-99) 131mg/dL (70-99) 134mg/dL (70-99) Test 07/28/16 03:29 07/28/16 04:34 07/28/16 05:36 07/28/16 06:05 Glucose (Fingerstick) 120mg/dL (70-99) 125mg/dL (70-99) 111mg/dL (70-99) White Blood Count 12.6x10^3/uL (4.0-11.0) Red Blood Count 2.82x10^6/uL (4.30-5.70) Hemoglobin 8.7g/dL (13.0-17.5) Hematocrit 24.7% (39.0-53.0) Mean Corpuscular Volume 88fL (79-100) Mean Corpuscular Hemoglobin 31pg (25-35) Mean Corpuscular Hemoglobin Concent 35g/dL (31-37) Red Cell Distribution Width 14.5% (11.5-14.5) Platelet Count 79x10^3/uL (140-400) Prothrombin Time 24.6SEC (11.7-14.0) Prothromb Time International Ratio 2.4 (0.8-1.1) Activated Partial Thromboplast Time 38SEC (24-38) Sodium Level 142mmol/L (136-145) Potassium Level 4.4mmol/L (3.5-5.1) Chloride Level 110mmol/L (98-107) Carbon Dioxide Level 26mmol/L (21-32) Anion Gap 6 (6-14) Blood Urea Nitrogen 22mg/dL (8-26) Creatinine 1.2mg/dL (0.7-1.3) Estimated GFR (Cockcroft-Gault) 62.4 Glucose Level 125mg/dL (70-99) Calcium Level 7.8mg/dL (8.5-10.1) Magnesium Level 1.9mg/dL (1.8-2.4) Test 07/28/16 06:32 07/28/16 08:00 07/28/16 08:09 07/28/16 11:16 Glucose (Fingerstick) 117mg/dL (70-99) 134mg/dL (70-99) O2 Saturation 94% (92-99) Arterial Blood pH 7.49 (7.35-7.45) Arterial Blood pCO2 at Patient Temp 30mmHg (35-46) Arterial Blood pO2 at Patient Temp 70mmHg (75-108) Arterial Blood HCO3 22mmol/L (21-28) Arterial Blood Base Excess -1mmol/L (-3-3) FiO2 60 Activated Clotting Time 215sec (92-181) Test 07/28/16 12:52 07/28/16 12:55 07/28/16 14:08 07/28/16 16:06 Glucose (Fingerstick) 145mg/dL (70-99) 141mg/dL (70-99) 158mg/dL (70-99) O2 Saturation 84% (92-99) Arterial Blood pH 7.36 (7.35-7.45) Arterial Blood pCO2 at Patient Temp 39mmHg (35-46) Arterial Blood pO2 at Patient Temp 51mmHg (75-108) Arterial Blood HCO3 22mmol/L (21-28) Arterial Blood Base Excess -3mmol/L (-3-3) FiO2 100 Test 07/28/16 17:30 07/28/16 17:33 07/28/16 18:35 07/28/16 19:41 White Blood Count 15.7x10^3/uL (4.0-11.0) Red Blood Count 3.03x10^6/uL (4.30-5.70) Hemoglobin 9.2g/dL (13.0-17.5) Hematocrit 27.1% (39.0-53.0) Mean Corpuscular Volume 89fL (79-100) Mean Corpuscular Hemoglobin 30pg (25-35) Mean Corpuscular Hemoglobin Concent 34g/dL (31-37) Red Cell Distribution Width 15.0% (11.5-14.5) Platelet Count 81x10^3/uL (140-400) Prothrombin Time 26.0SEC (11.7-14.0) Prothromb Time International Ratio 2.6 (0.8-1.1) Activated Partial Thromboplast Time 42SEC (24-38) Sodium Level 143mmol/L (136-145) Potassium Level 3.8mmol/L (3.5-5.1) Chloride Level 107mmol/L (98-107) Carbon Dioxide Level 29mmol/L (21-32) Anion Gap 7 (6-14) Blood Urea Nitrogen 23mg/dL (8-26) Creatinine 1.2mg/dL (0.7-1.3) Estimated GFR (Cockcroft-Gault) 62.4 Glucose Level 156mg/dL (70-99) Calcium Level 7.8mg/dL (8.5-10.1) Glucose (Fingerstick) 163mg/dL (70-99) 161mg/dL (70-99) 140mg/dL (70-99) Test 07/28/16 20:27 07/28/16 21:31 07/28/16 22:34 07/28/16 23:29 Glucose (Fingerstick) 131mg/dL (70-99) 146mg/dL (70-99) 134mg/dL (70-99) 144mg/dL (70-99) Test 07/29/16 00:37 07/29/16 01:48 07/29/16 02:49 07/29/16 03:53 Glucose (Fingerstick) 131mg/dL (70-99) 134mg/dL (70-99) 127mg/dL (70-99) 139mg/dL (70-99) Test 07/29/16 04:58 07/29/16 05:00 07/29/16 06:04 07/29/16 06:59 Glucose (Fingerstick) 147mg/dL (70-99) 151mg/dL (70-99) 158mg/dL (70-99) White Blood Count 10.9x10^3/uL (4.0-11.0) Red Blood Count 2.62x10^6/uL (4.30-5.70) Hemoglobin 8.1g/dL (13.0-17.5) Hematocrit 23.1% (39.0-53.0) Mean Corpuscular Volume 88fL (79-100) Mean Corpuscular Hemoglobin 31pg (25-35) Mean Corpuscular Hemoglobin Concent 35g/dL (31-37) Red Cell Distribution Width 14.9% (11.5-14.5) Platelet Count 72x10^3/uL (140-400) Neutrophils (%) (Auto) 76% (31-73) Lymphocytes (%) (Auto) 15% (24-48) Monocytes (%) (Auto) 8% (0-9) Eosinophils (%) (Auto) 0% (0-3) Basophils (%) (Auto) 0% (0-3) Neutrophils # (Auto) 8.3x10^3uL (1.8-7.7) Lymphocytes # (Auto) 1.7x10^3/uL (1.0-4.8) Monocytes # (Auto) 0.9x10^3/uL (0.0-1.1) Eosinophils # (Auto) 0.0x10^3/uL (0.0-0.7) Basophils # (Auto) 0.0x10^3/uL (0.0-0.2) Sodium Level 144mmol/L (136-145) Potassium Level 3.6mmol/L (3.5-5.1) Chloride Level 108mmol/L (98-107) Carbon Dioxide Level 30mmol/L (21-32) Anion Gap 6 (6-14) Blood Urea Nitrogen 26mg/dL (8-26) Creatinine 1.4mg/dL (0.7-1.3) Estimated GFR (Cockcroft-Gault) 52.2 BUN/Creatinine Ratio 19 (6-20) Glucose Level 146mg/dL (70-99) Calcium Level 7.7mg/dL (8.5-10.1) Magnesium Level 2.2mg/dL (1.8-2.4) Total Bilirubin 5.6mg/dL (0.2-1.0) Aspartate Amino Transf (AST/SGOT) 225U/L (15-37) Alanine Aminotransferase (ALT/SGPT) 327U/L (16-63) Alkaline Phosphatase 39U/L (46-116) Total Protein 4.4g/dL (6.4-8.2) Albumin 2.6g/dL (3.4-5.0) Albumin/Globulin Ratio 1.4 (1.0-1.7) Test 07/29/16 08:00 07/29/16 08:17 07/29/16 09:01 07/29/16 10:05 O2 Saturation 96% (92-99) Arterial Blood pH 7.49 (7.35-7.45) Arterial Blood pCO2 at Patient Temp 37mmHg (35-46) Arterial Blood pO2 at Patient Temp 95mmHg (75-108) Arterial Blood HCO3 28mmol/L (21-28) Arterial Blood Base Excess 4mmol/L (-3-3) FiO2 50 Glucose (Fingerstick) 136mg/dL (70-99) 136mg/dL (70-99) 144mg/dL (70-99) Test 07/29/16 11:14 07/29/16 12:44 Glucose (Fingerstick) 128mg/dL (70-99) 144mg/dL (70-99) Laboratory Tests Test 07/28/16 16:06 07/28/16 17:30 07/28/16 17:33 07/28/16 18:35 Glucose (Fingerstick) 158mg/dL (70-99) 163mg/dL (70-99) 161mg/dL (70-99) White Blood Count 15.7x10^3/uL (4.0-11.0) Red Blood Count 3.03x10^6/uL (4.30-5.70) Hemoglobin 9.2g/dL (13.0-17.5) Hematocrit 27.1% (39.0-53.0) Mean Corpuscular Volume 89fL (79-100) Mean Corpuscular Hemoglobin 30pg (25-35) Mean Corpuscular Hemoglobin Concent 34g/dL (31-37) Red Cell Distribution Width 15.0% (11.5-14.5) Platelet Count 81x10^3/uL (140-400) Prothrombin Time 26.0SEC (11.7-14.0) Prothromb Time International Ratio 2.6 (0.8-1.1) Activated Partial Thromboplast Time 42SEC (24-38) Sodium Level 143mmol/L (136-145) Potassium Level 3.8mmol/L (3.5-5.1) Chloride Level 107mmol/L (98-107) Carbon Dioxide Level 29mmol/L (21-32) Anion Gap 7 (6-14) Blood Urea Nitrogen 23mg/dL (8-26) Creatinine 1.2mg/dL (0.7-1.3) Estimated GFR (Cockcroft-Gault) 62.4 Glucose Level 156mg/dL (70-99) Calcium Level 7.8mg/dL (8.5-10.1) Test 07/28/16 19:41 07/28/16 20:27 07/28/16 21:31 07/28/16 22:34 Glucose (Fingerstick) 140mg/dL (70-99) 131mg/dL (70-99) 146mg/dL (70-99) 134mg/dL (70-99) Test 07/28/16 23:29 07/29/16 00:37 07/29/16 01:48 07/29/16 02:49 Glucose (Fingerstick) 144mg/dL (70-99) 131mg/dL (70-99) 134mg/dL (70-99) 127mg/dL (70-99) Test 07/29/16 03:53 07/29/16 04:58 07/29/16 05:00 07/29/16 06:04 Glucose (Fingerstick) 139mg/dL (70-99) 147mg/dL (70-99) 151mg/dL (70-99) White Blood Count 10.9x10^3/uL (4.0-11.0) Red Blood Count 2.62x10^6/uL (4.30-5.70) Hemoglobin 8.1g/dL (13.0-17.5) Hematocrit 23.1% (39.0-53.0) Mean Corpuscular Volume 88fL (79-100) Mean Corpuscular Hemoglobin 31pg (25-35) Mean Corpuscular Hemoglobin Concent 35g/dL (31-37) Red Cell Distribution Width 14.9% (11.5-14.5) Platelet Count 72x10^3/uL (140-400) Neutrophils (%) (Auto) 76% (31-73) Lymphocytes (%) (Auto) 15% (24-48) Monocytes (%) (Auto) 8% (0-9) Eosinophils (%) (Auto) 0% (0-3) Basophils (%) (Auto) 0% (0-3) Neutrophils # (Auto) 8.3x10^3uL (1.8-7.7) Lymphocytes # (Auto) 1.7x10^3/uL (1.0-4.8) Monocytes # (Auto) 0.9x10^3/uL (0.0-1.1) Eosinophils # (Auto) 0.0x10^3/uL (0.0-0.7) Basophils # (Auto) 0.0x10^3/uL (0.0-0.2) Sodium Level 144mmol/L (136-145) Potassium Level 3.6mmol/L (3.5-5.1) Chloride Level 108mmol/L (98-107) Carbon Dioxide Level 30mmol/L (21-32) Anion Gap 6 (6-14) Blood Urea Nitrogen 26mg/dL (8-26) Creatinine 1.4mg/dL (0.7-1.3) Estimated GFR (Cockcroft-Gault) 52.2 BUN/Creatinine Ratio 19 (6-20) Glucose Level 146mg/dL (70-99) Calcium Level 7.7mg/dL (8.5-10.1) Magnesium Level 2.2mg/dL (1.8-2.4) Total Bilirubin 5.6mg/dL (0.2-1.0) Aspartate Amino Transf (AST/SGOT) 225U/L (15-37) Alanine Aminotransferase (ALT/SGPT) 327U/L (16-63) Alkaline Phosphatase 39U/L (46-116) Total Protein 4.4g/dL (6.4-8.2) Albumin 2.6g/dL (3.4-5.0) Albumin/Globulin Ratio 1.4 (1.0-1.7) Test 07/29/16 06:59 07/29/16 08:00 07/29/16 08:17 07/29/16 09:01 Glucose (Fingerstick) 158mg/dL (70-99) 136mg/dL (70-99) 136mg/dL (70-99) O2 Saturation 96% (92-99) Arterial Blood pH 7.49 (7.35-7.45) Arterial Blood pCO2 at Patient Temp 37mmHg (35-46) Arterial Blood pO2 at Patient Temp 95mmHg (75-108) Arterial Blood HCO3 28mmol/L (21-28) Arterial Blood Base Excess 4mmol/L (-3-3) FiO2 50 Test 07/29/16 10:05 07/29/16 11:14 07/29/16 12:44 Glucose (Fingerstick) 144mg/dL (70-99) 128mg/dL (70-99) 144mg/dL (70-99) Medications Active Scripts Medications Dose Route/Sig Days Date Category Amlodipine Besylate 5 Mg Tablet 5 Mg PO DAILY 07/20/16 Reported Pradaxa (Dabigatran Etexilate Mesylate) 150 Mg Capsule 1 Cap PO BID 07/20/16 Reported Metoprolol Succinate ( Xl ) (Metoprolol Succinate) 100 Mg Tab.er.24h 1 Tab PO DAILY 07/20/16 Reported Impression . 1. Expected respiratory failure, status post coronary artery bypass grafting. 2. Cardiogenic shock. 3. Early post-myocardial infarction complicated with ventricular fibrillation leading to cardiogenic shock. 4. Status post implantation of Impella from mechanical circulating support. 5. 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 6. Tobacco use in remission. Spirometry revealed an FEV1, which was 3.2 liters preoperatively. 7. Nutrition, currently on tube feeding. 8. History of hypertension. 9. Severe cardiomyopathy ejection fraction 20%. 10. Peripheral artery disease. 11. Atrial fibrillation. Plan . CXR better oxygenation is better d/w Dr Stanford, POSSIBLE TRIAL IN AM 1. DECREASE PEEP, DECREASE VT 2. Continue nutritional support with tube feeding. 3. Continue pressors to maintain mean arterial pressure above 65. 4. Diurese, currently on IV Lasix. 5. Continue empiric antibiotics. 6. Continue IV digoxin. VANESSA GREY MD Jul 29, 2016 16:05
[2016-07-29] MEDS: IV RINGERS,LACTATED 1000ML 1,000 ML IV SCH (16:45)
[2016-07-29] MEDS: ATORVASTATIN CALCIUM 40 MG TABLET. PO SCH (20:51)
[2016-07-30] VITALS (25 sets, daily range): BP systolic 102–180; BP diastolic 58–88
[2016-07-30] MEDS: PIPERACILLIN/TAZOBACTAM 3.375 GM in IV NORMAL SALINE 50ML 50 ML IV SCH ×5 (00:32→23:35)
[2016-07-30 05:54] LABS: BASO % 0 % (0-3); EOS % 0 % (0-3); HEMATOCRIT 23.7 % (39.0-53.0); HEMOGLOBIN 8.2 g/dL (13.0-17.5); LYMPH # 1.6 x10^3/uL (1.0-4.8); LYMPH % 14 % (24-48); MEAN CORPUSCULAR HEMOGLOBIN 31 pg (25-35); MEAN CORPUSCULAR HGB CONC 35 g/dL (31-37); MEAN CORPUSCULAR VOLUME 90 fL (79-100); MONO % 7 % (0-9); NEUT % 79 % (31-73); PLATELET COUNT 82 x10^3/uL (140-400); RED BLOOD COUNT 2.63 x10^6/uL (4.30-5.70); RED CELL DISTRIBUTION WIDTH 15.3 % (11.5-14.5)
[2016-07-30 06:06] LABS: ALBUMIN 2.5 g/dL (3.4-5.0); ALBUMIN/GLOBULIN RATIO 1.1 (1.0-1.7); CALCIUM 7.3 mg/dL (8.5-10.1); CREATININE 1.3 mg/dL (0.7-1.3); GFR 56.9; MAGNESIUM 2.5 mg/dL (1.8-2.4); POTASSIUM 3.6 mmol/L (3.5-5.1); TOTAL BILIRUBIN 8.7 mg/dL (0.2-1.0); TOTAL PROTEIN 4.7 g/dL (6.4-8.2)
--- NOTE | 2016-07-30 08:15 | PDOC ---
PULMONARY PROGRESS NOTES Subjective PT SEDATED, on vent, small ett secretion, off vaso, on dobutamine, versed gtt Vitals Vital Signs Date Time Temp Pulse Resp B/P Pulse Ox O2 Delivery O2 Flow Rate FiO2 07/30/16 06:00 100.1 143 16 141/77 95 Ventilator 100.1 07/30/16 04:00 2.0 Comments ros discussed w rn, as mentioned as above other sys otherwise neg HEENT: Other (nc at perrl orally intubated nose clease. neck, no lap thyromegaly) Lungs: Crackles Cardiovascular: S1, S2 Abdomen: Soft, Non-tender, Other (no mass) Extremities: Other (DECREASE EDEMA) Skin: Warm Labs Laboratory Tests Test 07/28/16 08:09 07/28/16 11:16 07/28/16 12:52 07/28/16 12:55 Glucose (Fingerstick) 134mg/dL (70-99) 145mg/dL (70-99) Activated Clotting Time 215sec (92-181) O2 Saturation 84% (92-99) Arterial Blood pH 7.36 (7.35-7.45) Arterial Blood pCO2 at Patient Temp 39mmHg (35-46) Arterial Blood pO2 at Patient Temp 51mmHg (75-108) Arterial Blood HCO3 22mmol/L (21-28) Arterial Blood Base Excess -3mmol/L (-3-3) FiO2 100 Test 07/28/16 14:08 07/28/16 16:06 07/28/16 17:30 07/28/16 17:33 Glucose (Fingerstick) 141mg/dL (70-99) 158mg/dL (70-99) 163mg/dL (70-99) White Blood Count 15.7x10^3/uL (4.0-11.0) Red Blood Count 3.03x10^6/uL (4.30-5.70) Hemoglobin 9.2g/dL (13.0-17.5) Hematocrit 27.1% (39.0-53.0) Mean Corpuscular Volume 89fL (79-100) Mean Corpuscular Hemoglobin 30pg (25-35) Mean Corpuscular Hemoglobin Concent 34g/dL (31-37) Red Cell Distribution Width 15.0% (11.5-14.5) Platelet Count 81x10^3/uL (140-400) Prothrombin Time 26.0SEC (11.7-14.0) Prothromb Time International Ratio 2.6 (0.8-1.1) Activated Partial Thromboplast Time 42SEC (24-38) Sodium Level 143mmol/L (136-145) Potassium Level 3.8mmol/L (3.5-5.1) Chloride Level 107mmol/L (98-107) Carbon Dioxide Level 29mmol/L (21-32) Anion Gap 7 (6-14) Blood Urea Nitrogen 23mg/dL (8-26) Creatinine 1.2mg/dL (0.7-1.3) Estimated GFR (Cockcroft-Gault) 62.4 Glucose Level 156mg/dL (70-99) Calcium Level 7.8mg/dL (8.5-10.1) Test 07/28/16 18:35 07/28/16 19:41 07/28/16 20:27 07/28/16 21:31 Glucose (Fingerstick) 161mg/dL (70-99) 140mg/dL (70-99) 131mg/dL (70-99) 146mg/dL (70-99) Test 07/28/16 22:34 07/28/16 23:29 07/29/16 00:37 07/29/16 01:48 Glucose (Fingerstick) 134mg/dL (70-99) 144mg/dL (70-99) 131mg/dL (70-99) 134mg/dL (70-99) Test 07/29/16 02:49 07/29/16 03:53 07/29/16 04:58 07/29/16 05:00 Glucose (Fingerstick) 127mg/dL (70-99) 139mg/dL (70-99) 147mg/dL (70-99) White Blood Count 10.9x10^3/uL (4.0-11.0) Red Blood Count 2.62x10^6/uL (4.30-5.70) Hemoglobin 8.1g/dL (13.0-17.5) Hematocrit 23.1% (39.0-53.0) Mean Corpuscular Volume 88fL (79-100) Mean Corpuscular Hemoglobin 31pg (25-35) Mean Corpuscular Hemoglobin Concent 35g/dL (31-37) Red Cell Distribution Width 14.9% (11.5-14.5) Platelet Count 72x10^3/uL (140-400) Neutrophils (%) (Auto) 76% (31-73) Lymphocytes (%) (Auto) 15% (24-48) Monocytes (%) (Auto) 8% (0-9) Eosinophils (%) (Auto) 0% (0-3) Basophils (%) (Auto) 0% (0-3) Neutrophils # (Auto) 8.3x10^3uL (1.8-7.7) Lymphocytes # (Auto) 1.7x10^3/uL (1.0-4.8) Monocytes # (Auto) 0.9x10^3/uL (0.0-1.1) Eosinophils # (Auto) 0.0x10^3/uL (0.0-0.7) Basophils # (Auto) 0.0x10^3/uL (0.0-0.2) Sodium Level 144mmol/L (136-145) Potassium Level 3.6mmol/L (3.5-5.1) Chloride Level 108mmol/L (98-107) Carbon Dioxide Level 30mmol/L (21-32) Anion Gap 6 (6-14) Blood Urea Nitrogen 26mg/dL (8-26) Creatinine 1.4mg/dL (0.7-1.3) Estimated GFR (Cockcroft-Gault) 52.2 BUN/Creatinine Ratio 19 (6-20) Glucose Level 146mg/dL (70-99) Calcium Level 7.7mg/dL (8.5-10.1) Magnesium Level 2.2mg/dL (1.8-2.4) Total Bilirubin 5.6mg/dL (0.2-1.0) Aspartate Amino Transf (AST/SGOT) 225U/L (15-37) Alanine Aminotransferase (ALT/SGPT) 327U/L (16-63) Alkaline Phosphatase 39U/L (46-116) Total Protein 4.4g/dL (6.4-8.2) Albumin 2.6g/dL (3.4-5.0) Albumin/Globulin Ratio 1.4 (1.0-1.7) Test 07/29/16 06:04 07/29/16 06:59 07/29/16 08:00 07/29/16 08:17 Glucose (Fingerstick) 151mg/dL (70-99) 158mg/dL (70-99) 136mg/dL (70-99) O2 Saturation 96% (92-99) Arterial Blood pH 7.49 (7.35-7.45) Arterial Blood pCO2 at Patient Temp 37mmHg (35-46) Arterial Blood pO2 at Patient Temp 95mmHg (75-108) Arterial Blood HCO3 28mmol/L (21-28) Arterial Blood Base Excess 4mmol/L (-3-3) FiO2 50 Test 07/29/16 09:01 07/29/16 10:05 07/29/16 11:14 07/29/16 12:44 Glucose (Fingerstick) 136mg/dL (70-99) 144mg/dL (70-99) 128mg/dL (70-99) 144mg/dL (70-99) Test 07/29/16 18:30 07/30/16 05:30 Potassium Level 3.5mmol/L (3.5-5.1) 3.6mmol/L (3.5-5.1) White Blood Count 12.0x10^3/uL (4.0-11.0) Red Blood Count 2.63x10^6/uL (4.30-5.70) Hemoglobin 8.2g/dL (13.0-17.5) Hematocrit 23.7% (39.0-53.0) Mean Corpuscular Volume 90fL (79-100) Mean Corpuscular Hemoglobin 31pg (25-35) Mean Corpuscular Hemoglobin Concent 35g/dL (31-37) Red Cell Distribution Width 15.3% (11.5-14.5) Platelet Count 82x10^3/uL (140-400) Neutrophils (%) (Auto) 79% (31-73) Lymphocytes (%) (Auto) 14% (24-48) Monocytes (%) (Auto) 7% (0-9) Eosinophils (%) (Auto) 0% (0-3) Basophils (%) (Auto) 0% (0-3) Neutrophils # (Auto) 9.5x10^3uL (1.8-7.7) Lymphocytes # (Auto) 1.6x10^3/uL (1.0-4.8) Monocytes # (Auto) 0.8x10^3/uL (0.0-1.1) Eosinophils # (Auto) 0.0x10^3/uL (0.0-0.7) Basophils # (Auto) 0.0x10^3/uL (0.0-0.2) Sodium Level 147mmol/L (136-145) Chloride Level 108mmol/L (98-107) Carbon Dioxide Level 29mmol/L (21-32) Anion Gap 10 (6-14) Blood Urea Nitrogen 34mg/dL (8-26) Creatinine 1.3mg/dL (0.7-1.3) Estimated GFR (Cockcroft-Gault) 56.9 BUN/Creatinine Ratio 26 (6-20) Glucose Level 166mg/dL (70-99) Calcium Level 7.3mg/dL (8.5-10.1) Magnesium Level 2.5mg/dL (1.8-2.4) Total Bilirubin 8.7mg/dL (0.2-1.0) Aspartate Amino Transf (AST/SGOT) 302U/L (15-37) Alanine Aminotransferase (ALT/SGPT) 463U/L (16-63) Alkaline Phosphatase 95U/L (46-116) Total Protein 4.7g/dL (6.4-8.2) Albumin 2.5g/dL (3.4-5.0) Albumin/Globulin Ratio 1.1 (1.0-1.7) Laboratory Tests Test 07/29/16 08:17 07/29/16 09:01 07/29/16 10:05 07/29/16 11:14 Glucose (Fingerstick) 136mg/dL (70-99) 136mg/dL (70-99) 144mg/dL (70-99) 128mg/dL (70-99) Test 07/29/16 12:44 07/29/16 18:30 07/30/16 05:30 Glucose (Fingerstick) 144mg/dL (70-99) Potassium Level 3.5mmol/L (3.5-5.1) 3.6mmol/L (3.5-5.1) White Blood Count 12.0x10^3/uL (4.0-11.0) Red Blood Count 2.63x10^6/uL (4.30-5.70) Hemoglobin 8.2g/dL (13.0-17.5) Hematocrit 23.7% (39.0-53.0) Mean Corpuscular Volume 90fL (79-100) Mean Corpuscular Hemoglobin 31pg (25-35) Mean Corpuscular Hemoglobin Concent 35g/dL (31-37) Red Cell Distribution Width 15.3% (11.5-14.5) Platelet Count 82x10^3/uL (140-400) Neutrophils (%) (Auto) 79% (31-73) Lymphocytes (%) (Auto) 14% (24-48) Monocytes (%) (Auto) 7% (0-9) Eosinophils (%) (Auto) 0% (0-3) Basophils (%) (Auto) 0% (0-3) Neutrophils # (Auto) 9.5x10^3uL (1.8-7.7) Lymphocytes # (Auto) 1.6x10^3/uL (1.0-4.8) Monocytes # (Auto) 0.8x10^3/uL (0.0-1.1) Eosinophils # (Auto) 0.0x10^3/uL (0.0-0.7) Basophils # (Auto) 0.0x10^3/uL (0.0-0.2) Sodium Level 147mmol/L (136-145) Chloride Level 108mmol/L (98-107) Carbon Dioxide Level 29mmol/L (21-32) Anion Gap 10 (6-14) Blood Urea Nitrogen 34mg/dL (8-26) Creatinine 1.3mg/dL (0.7-1.3) Estimated GFR (Cockcroft-Gault) 56.9 BUN/Creatinine Ratio 26 (6-20) Glucose Level 166mg/dL (70-99) Calcium Level 7.3mg/dL (8.5-10.1) Magnesium Level 2.5mg/dL (1.8-2.4) Total Bilirubin 8.7mg/dL (0.2-1.0) Aspartate Amino Transf (AST/SGOT) 302U/L (15-37) Alanine Aminotransferase (ALT/SGPT) 463U/L (16-63) Alkaline Phosphatase 95U/L (46-116) Total Protein 4.7g/dL (6.4-8.2) Albumin 2.5g/dL (3.4-5.0) Albumin/Globulin Ratio 1.1 (1.0-1.7) Medications Active Scripts Medications Dose Route/Sig Days Date Category Amlodipine Besylate 5 Mg Tablet 5 Mg PO DAILY 07/20/16 Reported Pradaxa (Dabigatran Etexilate Mesylate) 150 Mg Capsule 1 Cap PO BID 07/20/16 Reported Metoprolol Succinate ( Xl ) (Metoprolol Succinate) 100 Mg Tab.er.24h 1 Tab PO DAILY 07/20/16 Reported Comments cxr reviewed, Stable positioning of lines and tubes, as detailed above. Bilateral perihilar opacities are similar to the previous exam Impression . 1. Expected respiratory failure, status post coronary artery bypass grafting. 2. Cardiogenic shock. 3. Early post-myocardial infarction complicated with ventricular fibrillation leading to cardiogenic shock. 4. Status post implantation of Impella from mechanical circulating support. 5. 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 6. Tobacco use in remission. Spirometry revealed an FEV1, which was 3.2 liters preoperatively. 7. Nutrition, currently on tube feeding. 8. History of hypertension. 9. Severe cardiomyopathy ejection fraction 20%. 10. Peripheral artery disease. 11. Atrial fibrillation. Plan . 1. cont vent support, setting reviewed, i decreased peep to 5, decrease sedation, will do sbt when more alert 2. Continue nutritional support with tube feeding. 3. Continue pressors to maintain mean arterial pressure above 65. 4. Diurese, currently on IV Lasix. monitor k, cr 5. Continue empiric antibiotics. 6. Continue IV digoxin. discussed w JEWEL Pabon MD Jul 30, 2016 08:15
[2016-07-30] MEDS: ALBUTEROL SULFATE 2.5 MG/3 ML NEBU. NEB SCH ×3 (08:46→16:00)
[2016-07-30] MEDS: ASPIRIN 325 MG TABLET PO SCH (08:51)
[2016-07-30] MEDS: POTASSIUM CHLORIDE 20MEQ 50 ML IV SCH ×2 (08:51→09:19)
[2016-07-30] MEDS: CHLORHEXIDINE 0.12% 15 ML MOUTHWASH. MM SCH ×2 (08:52→20:46)
[2016-07-30] MEDS: FAMOTIDINE 20 MG/2 ML VIAL IVP SCH ×2 (08:52→20:45)
--- NOTE | 2016-07-30 09:12 | RAD ---
CHEST AP ONLY Clinical Indication: ventilated/CHF 110 Comparison: July 29, 2016. Technique: Portable semiupright AP view of the chest is obtained. Findings: Distal tip of ET tube, visualized NG tube, right jugular [place]ia catheter, mediastinal drains and chest tube all appear grossly similar in position when compared to the previous exam. No pneumothorax is seen. No focal consolidation is present. Mild perihilar opacities appear similar to the previous exam. No significant pleural effusion is seen. Cardiomediastinal silhouette appears stable in size, with median sternotomy wires and surgical clips redemonstrated. Visualized osseous structures and overlying soft tissues demonstrate no acute interval change. IMPRESSION: Stable positioning of lines and tubes, as detailed above. Bilateral perihilar opacities are similar to the previous exam.
[2016-07-30] MEDS: MINERAL OIL/PETROLATUM,WHITE OPHTH OINT 3.5GM TUBE. OU SCH ×2 (09:20→20:46)
[2016-07-30] MEDS: DOCUSATE 100 MG/10 ML SOLUTION. PO SCH (09:29)
[2016-07-30] MEDS: FUROSEMIDE INJ 100 MG in IV NORMAL SALINE 100ML 100 ML IV PRN (09:50)
[2016-07-30 10:24] LABS: HCO3 ABG 29 mmol/L (21-28); PCO2 ABG 32 mmHg (35-46); PO2 ABG 82 mmHg (75-108); SAT O2 ABG 96 % (92-99)
[2016-07-30 11:00] LABS: PH ABG 7.57 (7.35-7.45)
[2016-07-30 11:01] LABS: FIO2 ABG 40%
--- NOTE | 2016-07-30 11:55 | PDOC ---
PROGRESS NOTES Chief Complaint Chief Complaint Chest pain STEMI ASSESSMENT AND PLAN: 1. STEMI: 3-vessel dz by cardiac cath (07/20/16). s/p CABG on 07/25/2016: FLETCHER to LAD; SVG to LAD; SVG to OM1 and SVG to RPDA. VF arrest after chest closed; reopened and placed back on bypass then converted to LVAD. chest closed on 2. cardiogenic shock: post op, LVAD d/c.ed on 07/28 3. PAD: dissection in ext iliac/fem artery ballooned on 07/28 4. Cardiomyopathy: EF 45% pre-op; post op: 20% 5. Afib: poor rate control on amiodarone gtt. as per cardiology 6. HTN: remains hypotensive, requiring pressors 7. Empiric Zosyn day#6. stop? d/w cards 8. HLD: on statin, currently on hold 9. DM: no previous dx. on insulin gtt per CV protocol, now stopped 10. hepatitis; 2/2 cadriogenic shock most likely. monitor 10: Nutrition: NG feed, titrate to comfort Prognosis: critical CC time: 35 min Vitals Vitals Vital Signs Date Time Temp Pulse Resp B/P Pulse Ox O2 Delivery O2 Flow Rate FiO2 07/30/16 09:29 26 93 Ventilator 07/30/16 06:00 100.1 143 141/77 100.1 07/30/16 04:00 2.0 Physical Exam Physical Exam scleral icterus General: Other (sedated, intubated, moving head) Heart: Other (tachy) Lungs: Clear Abdomen: Normal bowel sounds, Soft Extremities: Other (+ edema x4) Skin: No rashes Labs LABS Laboratory Tests Test 07/29/16 12:44 07/29/16 18:30 07/30/16 05:30 07/30/16 08:00 Glucose (Fingerstick) 144mg/dL (70-99) Potassium Level 3.5mmol/L (3.5-5.1) 3.6mmol/L (3.5-5.1) White Blood Count 12.0x10^3/uL (4.0-11.0) Red Blood Count 2.63x10^6/uL (4.30-5.70) Hemoglobin 8.2g/dL (13.0-17.5) Hematocrit 23.7% (39.0-53.0) Mean Corpuscular Volume 90fL (79-100) Mean Corpuscular Hemoglobin 31pg (25-35) Mean Corpuscular Hemoglobin Concent 35g/dL (31-37) Red Cell Distribution Width 15.3% (11.5-14.5) Platelet Count 82x10^3/uL (140-400) Neutrophils (%) (Auto) 79% (31-73) Lymphocytes (%) (Auto) 14% (24-48) Monocytes (%) (Auto) 7% (0-9) Eosinophils (%) (Auto) 0% (0-3) Basophils (%) (Auto) 0% (0-3) Neutrophils # (Auto) 9.5x10^3uL (1.8-7.7) Lymphocytes # (Auto) 1.6x10^3/uL (1.0-4.8) Monocytes # (Auto) 0.8x10^3/uL (0.0-1.1) Eosinophils # (Auto) 0.0x10^3/uL (0.0-0.7) Basophils # (Auto) 0.0x10^3/uL (0.0-0.2) Sodium Level 147mmol/L (136-145) Chloride Level 108mmol/L (98-107) Carbon Dioxide Level 29mmol/L (21-32) Anion Gap 10 (6-14) Blood Urea Nitrogen 34mg/dL (8-26) Creatinine 1.3mg/dL (0.7-1.3) Estimated GFR (Cockcroft-Gault) 56.9 BUN/Creatinine Ratio 26 (6-20) Glucose Level 166mg/dL (70-99) Calcium Level 7.3mg/dL (8.5-10.1) Magnesium Level 2.5mg/dL (1.8-2.4) Total Bilirubin 8.7mg/dL (0.2-1.0) Aspartate Amino Transf (AST/SGOT) 302U/L (15-37) Alanine Aminotransferase (ALT/SGPT) 463U/L (16-63) Alkaline Phosphatase 95U/L (46-116) Total Protein 4.7g/dL (6.4-8.2) Albumin 2.5g/dL (3.4-5.0) Albumin/Globulin Ratio 1.1 (1.0-1.7) O2 Saturation 96% (92-99) Arterial Blood pH 7.57 (7.35-7.45) Arterial Blood pCO2 at Patient Temp 32mmHg (35-46) Arterial Blood pO2 at Patient Temp 82mmHg (75-108) Arterial Blood HCO3 29mmol/L (21-28) Arterial Blood Base Excess 7mmol/L (-3-3) FiO2 40% Review of Systems Review of Systems intub.ed, sedated PANTERA MARTINEZ MD Jul 30, 2016 11:55
[2016-07-30] MEDS: IPRATROPIUM BROMIDE 0.5 MG/2.5 ML NEBU. NEB SCH ×3 (12:12→20:26)
[2016-07-30] MEDS ORDERED: DIGOXIN IV 500 MCG/2 ML AMPUL. IV ONE (12:15)
[2016-07-30] MEDS: AMIODARONE 450 MG in IV DEXTROSE 5% 250 ML IV PRN (13:02)
--- NOTE | 2016-07-30 13:21 | PDOC ---
Progress Note Subjective Subjective Overall stable and doing well. Cardiac index has been above 2, he is on 5mcg of dobutamine. He has been hypertensive. He remains in atrial fibrillation which is chronic. Vent settings FIO2 40% with PEEP 5 with good oxygenation and ventilation. He has been diuresing well approximately 200-300 mL an hour on a Lasix drip at 10 mg per hour. His left foot has good Doppler signals. He is receiving trickle tube feeds at 20 mL which he is tolerating. Attempted to wean sedation, but gets very agitated, hypertensive and tachycardic. CXR looks great. ROS ROS Unable to obtain-intubated/sedated Vital Sign Vital Signs Vital Signs Date Time Temp Pulse Resp B/P Pulse Ox O2 Delivery O2 Flow Rate FiO2 07/30/16 12:13 98 Ventilator 07/30/16 09:29 26 07/30/16 06:00 100.1 143 141/77 100.1 07/30/16 04:00 2.0 Physical Exam PHYSICAL EXAM GENERAL: Intubated sedated HEENT: Pupils reactive, scleral icterus NECK: Supple LUNGS: Clear HEART: S1S2 CHEST: sternotomy: D/C/I ABD: Soft, NT EXT: edema improved, warm well perfused, pedal pulses palpable [employer]: Intubated,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 SKIN: No rash IV: ok Labs Lab Laboratory Tests Test 07/29/16 18:30 07/30/16 05:30 07/30/16 08:00 Potassium Level 3.5mmol/L (3.5-5.1) 3.6mmol/L (3.5-5.1) White Blood Count 12.0x10^3/uL (4.0-11.0) Red Blood Count 2.63x10^6/uL (4.30-5.70) Hemoglobin 8.2g/dL (13.0-17.5) Hematocrit 23.7% (39.0-53.0) Mean Corpuscular Volume 90fL (79-100) Mean Corpuscular Hemoglobin 31pg (25-35) Mean Corpuscular Hemoglobin Concent 35g/dL (31-37) Red Cell Distribution Width 15.3% (11.5-14.5) Platelet Count 82x10^3/uL (140-400) Neutrophils (%) (Auto) 79% (31-73) Lymphocytes (%) (Auto) 14% (24-48) Monocytes (%) (Auto) 7% (0-9) Eosinophils (%) (Auto) 0% (0-3) Basophils (%) (Auto) 0% (0-3) Neutrophils # (Auto) 9.5x10^3uL (1.8-7.7) Lymphocytes # (Auto) 1.6x10^3/uL (1.0-4.8) Monocytes # (Auto) 0.8x10^3/uL (0.0-1.1) Eosinophils # (Auto) 0.0x10^3/uL (0.0-0.7) Basophils # (Auto) 0.0x10^3/uL (0.0-0.2) Sodium Level 147mmol/L (136-145) Chloride Level 108mmol/L (98-107) Carbon Dioxide Level 29mmol/L (21-32) Anion Gap 10 (6-14) Blood Urea Nitrogen 34mg/dL (8-26) Creatinine 1.3mg/dL (0.7-1.3) Estimated GFR (Cockcroft-Gault) 56.9 BUN/Creatinine Ratio 26 (6-20) Glucose Level 166mg/dL (70-99) Calcium Level 7.3mg/dL (8.5-10.1) Magnesium Level 2.5mg/dL (1.8-2.4) Total Bilirubin 8.7mg/dL (0.2-1.0) Aspartate Amino Transf (AST/SGOT) 302U/L (15-37) Alanine Aminotransferase (ALT/SGPT) 463U/L (16-63) Alkaline Phosphatase 95U/L (46-116) Total Protein 4.7g/dL (6.4-8.2) Albumin 2.5g/dL (3.4-5.0) Albumin/Globulin Ratio 1.1 (1.0-1.7) O2 Saturation 96% (92-99) Arterial Blood pH 7.57 (7.35-7.45) Arterial Blood pCO2 at Patient Temp 32mmHg (35-46) Arterial Blood pO2 at Patient Temp 82mmHg (75-108) Arterial Blood HCO3 29mmol/L (21-28) Arterial Blood Base Excess 7mmol/L (-3-3) FiO2 40% Objective Assessment Status post CABG 3 for severe ischemic cardiomyopathy, large anterior STEMI with troponin of 100, with early postoperative myocardial infarction/V. fib, leading to cardiogenic shock, placement of the vein graft to the LAD and impella for mechanical circulatory support and open chest. Sternotomy was successfully closed 2 days ago and the LVAD was removed yesterday. Overall stable and doing well. Cardiac index has been above 2, he is on 5mcg of dobutamine. He has been hypertensive. He remains in atrial fibrillation which is chronic. Vent settings FIO2 40% with PEEP 5 with good oxygenation and ventilation. He has been diuresing well approximately 200-300 mL an hour on a Lasix drip at 10 mg per hour. His left foot has good Doppler signals. He is receiving trickle tube feeds at 20 mL which he is tolerating. Attempted to wean sedation this morning, but gets very agitated, hypertensive and tachycardic. CXR looks great Main issue now is agitation/confusion, which does not allow us to proceed with breathing trial Plan Plan of Care Attempt wean sedation +/- breathing trial. If he becomes too agitated off the sedation, will start Precedex Keep dopamine at 5 mcg-no need to wean for now, okay to manage vasoplegia / hypotension with vasopressin Decrease Lasix drip to 5 mg/hr Stop amiodarone drip and switch to po 400mg BID for A. fib control Continue IV Zosyn and vancomycin for previous open chest Keep chest tubes in for now Increase tube feeds to 40 mls/hr If he remains confused, agitated and not co-operative with breathing trial on Precedex over the next 2-3 days, may consider tracheostomy OLGA LOPEZ MD Jul 30, 2016 13:21
[2016-07-30] MEDS ORDERED: ATROPINE 0.5 MG/5 ML DISP.SYRIN. IV PRN (13:30)
[2016-07-30] MEDS ORDERED: AMIODARONE HCL 200 MG TABLET. PO ONE (13:30)
--- NOTE | 2016-07-30 14:16 | PDOC ---
PROGRESS NOTES Subjective Subjective Intubated and sedated Objective Objective Vital Signs Date Time Temp Pulse Resp B/P Pulse Ox O2 Delivery O2 Flow Rate FiO2 07/30/16 13:01 141 163/90 07/30/16 12:13 98 Ventilator 07/30/16 12:00 30 07/30/16 06:00 100.1 100.1 07/30/16 04:00 2.0 Intake and Output 07/30/16 07:00 Intake Total 2518 ml Output Total 4370 ml Balance -1852 ml Intake Oral 0 ml IV Total 1883 ml Tube Feeding 535 ml Other 100 ml Output Urine Total 3725 ml Gastric Drainage Total 30 ml Chest Tube Drainage Total 615 ml Physical Exam Abdomen: Normal bowel sounds, Soft Heart: Other (tachy, irregular) Extremities: No edema, Other (+ edema x4) General: Other (sedated, intubated, moving head) HEENT: Atraumatic, PERRLA Lungs: Normal air movement, Other (scattered bilateral crepitations) MUSCULOSKELETAL: No deformity Skin: No rashes Assessment Assessment 1. STEMI, 3v CAD CABG on 07/25/2016 with FLETCHER to LAD; SVG to LAD; SVG to OM1 and SVG to RPDA VF arrest after chest closed; reopened and placed back on bypass then converted to LVAD (Impella) Impella removed successfully Continue postop care per CT surgery 2. cardiogenic shock Impella removed 07/28/2016 - LVEF ~ 25% by echo TTE on 07/26/2016 with severe global hypokinesis of the left ventricle distal 2/3 of the LV is severely hypokinetic with akinesis of the mid to distal LAD and apex LVEF depressed at about 20% Continue dopamine infusion 3. atrial fib/flutter Heart rate elevated We will try intravenous digoxin for better rate control Plan Plan of Care Problems Medical Problems: (1) CAD (coronary artery disease), [place] coronary artery Status: Acute (2) Chest pain Status: Acute (3) STEMI (ST elevation myocardial infarction) Status: Acute Comment Review of Relevant I have reviewed the following items leonidas (where applicable) has been applied. Labs Laboratory Tests Test 07/29/16 18:30 07/30/16 05:30 07/30/16 08:00 Potassium Level 3.5mmol/L (3.5-5.1) 3.6mmol/L (3.5-5.1) White Blood Count 12.0x10^3/uL (4.0-11.0) Red Blood Count 2.63x10^6/uL (4.30-5.70) Hemoglobin 8.2g/dL (13.0-17.5) Hematocrit 23.7% (39.0-53.0) Mean Corpuscular Volume 90fL (79-100) Mean Corpuscular Hemoglobin 31pg (25-35) Mean Corpuscular Hemoglobin Concent 35g/dL (31-37) Red Cell Distribution Width 15.3% (11.5-14.5) Platelet Count 82x10^3/uL (140-400) Neutrophils (%) (Auto) 79% (31-73) Lymphocytes (%) (Auto) 14% (24-48) Monocytes (%) (Auto) 7% (0-9) Eosinophils (%) (Auto) 0% (0-3) Basophils (%) (Auto) 0% (0-3) Neutrophils # (Auto) 9.5x10^3uL (1.8-7.7) Lymphocytes # (Auto) 1.6x10^3/uL (1.0-4.8) Monocytes # (Auto) 0.8x10^3/uL (0.0-1.1) Eosinophils # (Auto) 0.0x10^3/uL (0.0-0.7) Basophils # (Auto) 0.0x10^3/uL (0.0-0.2) Sodium Level 147mmol/L (136-145) Chloride Level 108mmol/L (98-107) Carbon Dioxide Level 29mmol/L (21-32) Anion Gap 10 (6-14) Blood Urea Nitrogen 34mg/dL (8-26) Creatinine 1.3mg/dL (0.7-1.3) Estimated GFR (Cockcroft-Gault) 56.9 BUN/Creatinine Ratio 26 (6-20) Glucose Level 166mg/dL (70-99) Calcium Level 7.3mg/dL (8.5-10.1) Magnesium Level 2.5mg/dL (1.8-2.4) Total Bilirubin 8.7mg/dL (0.2-1.0) Aspartate Amino Transf (AST/SGOT) 302U/L (15-37) Alanine Aminotransferase (ALT/SGPT) 463U/L (16-63) Alkaline Phosphatase 95U/L (46-116) Total Protein 4.7g/dL (6.4-8.2) Albumin 2.5g/dL (3.4-5.0) Albumin/Globulin Ratio 1.1 (1.0-1.7) O2 Saturation 96% (92-99) Arterial Blood pH 7.57 (7.35-7.45) Arterial Blood pCO2 at Patient Temp 32mmHg (35-46) Arterial Blood pO2 at Patient Temp 82mmHg (75-108) Arterial Blood HCO3 29mmol/L (21-28) Arterial Blood Base Excess 7mmol/L (-3-3) FiO2 40% Medications Current Medications Amiodarone HCl (Cordarone) 400 mg BID PO ; Start 07/30/16 at 21:00 Amiodarone HCl (Cordarone) 400 mg ONCE ONCE PO ; Start 07/30/16 at 13:30; Stop 07/30/16 at 13:46; Status DC Aspirin (FilaExpress Aspirin) 325 mg [id number] PO Last administered on 07/30/16 08: 51; Start 07/30/16 at 08:00 Atropine Sulfate 0.5 mg PRN Q5MIN PRN IV SEE COMMENTS; Start 07/30/16 at 13:30 Dexmedetomidine HCl/Sodium Chloride (Precedex/Iv Sodium Chloride 0.9% 50ml) 50 ml @ 0 mls/hr CONT PRN IV PER PROTOCOL; Start 07/30/16 at 13:30 Digoxin 500 mcg 500 mcg 1X ONCE IV Last administered on 07/30/16 13:01; Start 07/30/16 at 12:15; Stop 07/30/16 at 12:19; Status DC Docusate Sodium 100 mg 100 mg DAILY PO Last administered on 07/30/16 09:29; Start 07/30/16 at 09:00 Ipratropium [place] (Atrovent) 0.5 mg RTQID NEB Last administered on 07/30/16 12:12; Start 07/30/16 at 12:30 Potassium Chloride 50 ml @ 50 mls/hr Q1H IV Last administered on 07/29/16 22: 39; Start 07/29/16 at 20:00; Stop 07/29/16 at 22:59; Status DC Potassium Chloride (KCl Premix 20meq) 50 ml @ 50 mls/hr Q1H IV Last administered on 07/30/16t 09:19; Start 07/30/16 at 07:00; Stop 07/30/16 at 08:59 ; Status DC Vitals/I & O Vital Sign - Last 24 Hours 07/29/16 07/29/16 07/29/16 07/29/16 15:00 15:00 15:44 16:00 B/P 112/64 Pulse Ox 95 98 O2 Delivery Ventilator Ventilator Mechanical Ventilator 07/29/16 07/29/16 07/29/16 07/29/16 16:00 16:00 17:00 18:00 Temp 100.6 100.2 100.6 100.2 B/P 90/50 134/74 Pulse Ox 99 95 O2 Delivery Ventilator Ventilator 07/29/16 07/29/16 07/29/16 07/29/16 18:00 18:09 19:00 19:00 Temp 100.3 100.3 Pulse 139 Resp 16 B/P 127/68 Pulse Ox 96 95 O2 Delivery Ventilator Ventilator 07/29/16 07/29/16 07/29/16 07/29/16 19:19 19:57 20:00 20:00 Temp 100.2 100.2 Pulse 140 140 Resp 16 B/P 115/65 Pulse Ox 96 96 O2 Delivery Mechanical Ventilator Ventilator O2 Flow Rate 2.0 07/29/16 07/29/16 07/29/16 07/29/16 20:20 21:00 21:00 22:00 Temp 100.3 100.3 Pulse 138 139 140 Resp 16 B/P 148/80 Pulse Ox 96 93 O2 Delivery Ventilator Ventilator 07/29/16 07/29/16 07/29/16 07/29/16 22:00 23:00 23:00 23:35 Temp 100.5 100.7 100.5 100.7 Pulse 128 141 141 Resp 16 16 B/P 106/62 107/62 Pulse Ox 96 98 96 O2 Delivery Ventilator Ventilator Ventilator 07/30/16 07/30/16 07/30/16 07/30/16 00:00 00:00 00:02 01:00 Temp 100.7 100.7 Pulse 141 141 136 Resp 16 B/P 124/76 Pulse Ox 97 O2 Delivery Ventilator Mechanical Ventilator 07/30/16 07/30/16 07/30/16 07/30/16 01:00 02:00 02:00 03:00 Temp 100.8 100.8 100.9 100.8 100.8 100.9 Pulse 138 128 122 138 Resp 16 16 16 B/P 113/63 153/88 125/69 Pulse Ox 96 97 99 O2 Delivery Ventilator Ventilator Ventilator 07/30/16 07/30/16 07/30/16 07/30/16 03:00 03:30 03:46 04:00 Pulse 125 138 B/P Pulse Ox 99 98 O2 Delivery Ventilator O2 Flow Rate 2.0 07/30/16 07/30/16 07/30/16 07/30/16 04:00 04:00 04:02 05:00 Temp 100.6 100.6 Pulse 135 128 Resp 16 B/P 112/66 Pulse Ox 98 O2 Delivery Ventilator Mechanical Ventilator O2 Flow Rate 2.0 07/30/16 07/30/16 07/30/16 07/30/16 05:00 06:00 06:00 08:20 Temp 100.3 100.1 100.3 100.1 Pulse 146 129 143 Resp 16 B/P 142/83 141/77 Pulse Ox 96 95 99 O2 Delivery Ventilator Ventilator Ventilator 07/30/16 07/30/16 07/30/16 07/30/16 08:59 11:30 12:00 12:13 Resp 26 29 30 Pulse Ox 98 93 93 98 O2 Delivery Ventilator Ventilator Ventilator Ventilator 07/30/16 13:01 Pulse 141 B/P 163/90 Intake and Output 07/29/16 07/29/16 07/30/16 15:00 23:00 07:00 Intake Total 170 ml 1438 ml 910 ml Output Total 1395 ml 1450 ml 1525 ml Balance -1225 ml -12 ml -615 ml ANATOLIY ANGELO MD Jul 30, 2016 14:16
[2016-07-30] MEDS: DEXMEDETOMIDINE 200 MCG in IV NORMAL SALINE 50ML 48 ML IV PRN (15:00)
[2016-07-30] MEDS ORDERED: ALBUMIN HUMAN 25% 50 ML IV ONE (16:30)
[2016-07-30] MEDS: IV RINGERS,LACTATED 1000ML 1,000 ML IV SCH (17:30)
[2016-07-30] MEDS ORDERED: IBUPROFEN 200 MG TABLET. PO PRN (19:45)
[2016-07-30] MEDS ORDERED: METOPROLOL TARTRATE 5 MG/5 ML VIAL. IVP ONE (20:30)
[2016-07-30] MEDS: AMIODARONE HCL 200 MG TABLET. PO SCH (20:45)
[2016-07-30] MEDS: ATORVASTATIN CALCIUM 40 MG TABLET. PO SCH (20:45)
[2016-07-31] VITALS (25 sets, daily range): BP systolic 124–177; BP diastolic 56–84
--- NOTE | 2016-07-31 04:56 | PDOC ---
PULMONARY PROGRESS NOTES Subjective PT off versed, barely open his eyes, on vent, small ett secretion, off vaso, on dobutamine, Vitals Vital Signs Date Time Temp Pulse Resp B/P Pulse Ox O2 Delivery O2 Flow Rate FiO2 07/31/16 04:21 Mechanical Ventilator 07/31/16 04:13 95 07/31/16 04:00 107 07/31/16 04:00 99.7 16 135/70 99.7 07/31/16 01:03 2.0 Comments ros discussed w rn, as mentioned as above other sys otherwise neg HEENT: Other (nc at perrl orally intubated nose clease. neck, no lap thyromegaly) Lungs: Crackles Cardiovascular: Other (tachy irregular) Abdomen: Soft, Non-tender, Other (no mass) Extremities: Other (DECREASE EDEMA) Skin: Warm Labs Laboratory Tests Test 07/29/16 04:58 07/29/16 05:00 07/29/16 06:04 07/29/16 06:59 Glucose (Fingerstick) 147mg/dL (70-99) 151mg/dL (70-99) 158mg/dL (70-99) White Blood Count 10.9x10^3/uL (4.0-11.0) Red Blood Count 2.62x10^6/uL (4.30-5.70) Hemoglobin 8.1g/dL (13.0-17.5) Hematocrit 23.1% (39.0-53.0) Mean Corpuscular Volume 88fL (79-100) Mean Corpuscular Hemoglobin 31pg (25-35) Mean Corpuscular Hemoglobin Concent 35g/dL (31-37) Red Cell Distribution Width 14.9% (11.5-14.5) Platelet Count 72x10^3/uL (140-400) Neutrophils (%) (Auto) 76% (31-73) Lymphocytes (%) (Auto) 15% (24-48) Monocytes (%) (Auto) 8% (0-9) Eosinophils (%) (Auto) 0% (0-3) Basophils (%) (Auto) 0% (0-3) Neutrophils # (Auto) 8.3x10^3uL (1.8-7.7) Lymphocytes # (Auto) 1.7x10^3/uL (1.0-4.8) Monocytes # (Auto) 0.9x10^3/uL (0.0-1.1) Eosinophils # (Auto) 0.0x10^3/uL (0.0-0.7) Basophils # (Auto) 0.0x10^3/uL (0.0-0.2) Sodium Level 144mmol/L (136-145) Potassium Level 3.6mmol/L (3.5-5.1) Chloride Level 108mmol/L (98-107) Carbon Dioxide Level 30mmol/L (21-32) Anion Gap 6 (6-14) Blood Urea Nitrogen 26mg/dL (8-26) Creatinine 1.4mg/dL (0.7-1.3) Estimated GFR (Cockcroft-Gault) 52.2 BUN/Creatinine Ratio 19 (6-20) Glucose Level 146mg/dL (70-99) Calcium Level 7.7mg/dL (8.5-10.1) Magnesium Level 2.2mg/dL (1.8-2.4) Total Bilirubin 5.6mg/dL (0.2-1.0) Aspartate Amino Transf (AST/SGOT) 225U/L (15-37) Alanine Aminotransferase (ALT/SGPT) 327U/L (16-63) Alkaline Phosphatase 39U/L (46-116) Total Protein 4.4g/dL (6.4-8.2) Albumin 2.6g/dL (3.4-5.0) Albumin/Globulin Ratio 1.4 (1.0-1.7) Test 07/29/16 08:00 07/29/16 08:17 07/29/16 09:01 07/29/16 10:05 O2 Saturation 96% (92-99) Arterial Blood pH 7.49 (7.35-7.45) Arterial Blood pCO2 at Patient Temp 37mmHg (35-46) Arterial Blood pO2 at Patient Temp 95mmHg (75-108) Arterial Blood HCO3 28mmol/L (21-28) Arterial Blood Base Excess 4mmol/L (-3-3) FiO2 50 Glucose (Fingerstick) 136mg/dL (70-99) 136mg/dL (70-99) 144mg/dL (70-99) Test 07/29/16 11:14 07/29/16 12:44 07/29/16 18:30 07/30/16 05:30 Glucose (Fingerstick) 128mg/dL (70-99) 144mg/dL (70-99) Potassium Level 3.5mmol/L (3.5-5.1) 3.6mmol/L (3.5-5.1) White Blood Count 12.0x10^3/uL (4.0-11.0) Red Blood Count 2.63x10^6/uL (4.30-5.70) Hemoglobin 8.2g/dL (13.0-17.5) Hematocrit 23.7% (39.0-53.0) Mean Corpuscular Volume 90fL (79-100) Mean Corpuscular Hemoglobin 31pg (25-35) Mean Corpuscular Hemoglobin Concent 35g/dL (31-37) Red Cell Distribution Width 15.3% (11.5-14.5) Platelet Count 82x10^3/uL (140-400) Neutrophils (%) (Auto) 79% (31-73) Lymphocytes (%) (Auto) 14% (24-48) Monocytes (%) (Auto) 7% (0-9) Eosinophils (%) (Auto) 0% (0-3) Basophils (%) (Auto) 0% (0-3) Neutrophils # (Auto) 9.5x10^3uL (1.8-7.7) Lymphocytes # (Auto) 1.6x10^3/uL (1.0-4.8) Monocytes # (Auto) 0.8x10^3/uL (0.0-1.1) Eosinophils # (Auto) 0.0x10^3/uL (0.0-0.7) Basophils # (Auto) 0.0x10^3/uL (0.0-0.2) Sodium Level 147mmol/L (136-145) Chloride Level 108mmol/L (98-107) Carbon Dioxide Level 29mmol/L (21-32) Anion Gap 10 (6-14) Blood Urea Nitrogen 34mg/dL (8-26) Creatinine 1.3mg/dL (0.7-1.3) Estimated GFR (Cockcroft-Gault) 56.9 BUN/Creatinine Ratio 26 (6-20) Glucose Level 166mg/dL (70-99) Calcium Level 7.3mg/dL (8.5-10.1) Magnesium Level 2.5mg/dL (1.8-2.4) Total Bilirubin 8.7mg/dL (0.2-1.0) Aspartate Amino Transf (AST/SGOT) 302U/L (15-37) Alanine Aminotransferase (ALT/SGPT) 463U/L (16-63) Alkaline Phosphatase 95U/L (46-116) Total Protein 4.7g/dL (6.4-8.2) Albumin 2.5g/dL (3.4-5.0) Albumin/Globulin Ratio 1.1 (1.0-1.7) Test 07/30/16 08:00 O2 Saturation 96% (92-99) Arterial Blood pH 7.57 (7.35-7.45) Arterial Blood pCO2 at Patient Temp 32mmHg (35-46) Arterial Blood pO2 at Patient Temp 82mmHg (75-108) Arterial Blood HCO3 29mmol/L (21-28) Arterial Blood Base Excess 7mmol/L (-3-3) FiO2 40% Laboratory Tests Test 07/30/16 05:30 07/30/16 08:00 White Blood Count 12.0x10^3/uL (4.0-11.0) Red Blood Count 2.63x10^6/uL (4.30-5.70) Hemoglobin 8.2g/dL (13.0-17.5) Hematocrit 23.7% (39.0-53.0) Mean Corpuscular Volume 90fL (79-100) Mean Corpuscular Hemoglobin 31pg (25-35) Mean Corpuscular Hemoglobin Concent 35g/dL (31-37) Red Cell Distribution Width 15.3% (11.5-14.5) Platelet Count 82x10^3/uL (140-400) Neutrophils (%) (Auto) 79% (31-73) Lymphocytes (%) (Auto) 14% (24-48) Monocytes (%) (Auto) 7% (0-9) Eosinophils (%) (Auto) 0% (0-3) Basophils (%) (Auto) 0% (0-3) Neutrophils # (Auto) 9.5x10^3uL (1.8-7.7) Lymphocytes # (Auto) 1.6x10^3/uL (1.0-4.8) Monocytes # (Auto) 0.8x10^3/uL (0.0-1.1) Eosinophils # (Auto) 0.0x10^3/uL (0.0-0.7) Basophils # (Auto) 0.0x10^3/uL (0.0-0.2) Sodium Level 147mmol/L (136-145) Potassium Level 3.6mmol/L (3.5-5.1) Chloride Level 108mmol/L (98-107) Carbon Dioxide Level 29mmol/L (21-32) Anion Gap 10 (6-14) Blood Urea Nitrogen 34mg/dL (8-26) Creatinine 1.3mg/dL (0.7-1.3) Estimated GFR (Cockcroft-Gault) 56.9 BUN/Creatinine Ratio 26 (6-20) Glucose Level 166mg/dL (70-99) Calcium Level 7.3mg/dL (8.5-10.1) Magnesium Level 2.5mg/dL (1.8-2.4) Total Bilirubin 8.7mg/dL (0.2-1.0) Aspartate Amino Transf (AST/SGOT) 302U/L (15-37) Alanine Aminotransferase (ALT/SGPT) 463U/L (16-63) Alkaline Phosphatase 95U/L (46-116) Total Protein 4.7g/dL (6.4-8.2) Albumin 2.5g/dL (3.4-5.0) Albumin/Globulin Ratio 1.1 (1.0-1.7) O2 Saturation 96% (92-99) Arterial Blood pH 7.57 (7.35-7.45) Arterial Blood pCO2 at Patient Temp 32mmHg (35-46) Arterial Blood pO2 at Patient Temp 82mmHg (75-108) Arterial Blood HCO3 29mmol/L (21-28) Arterial Blood Base Excess 7mmol/L (-3-3) FiO2 40% Medications Active Scripts Medications Dose Route/Sig Days Date Category Amlodipine Besylate 5 Mg Tablet 5 Mg PO DAILY 07/20/16 Reported Pradaxa (Dabigatran Etexilate Mesylate) 150 Mg Capsule 1 Cap PO BID 07/20/16 Reported Metoprolol Succinate ( Xl ) (Metoprolol Succinate) 100 Mg Tab.er.24h 1 Tab PO DAILY 07/20/16 Reported Comments cxr reviewed, Stable positioning of lines and tubes, as detailed above. Bilateral perihilar opacities are similar to the previous exam Impression . 1. Expected respiratory failure, status post coronary artery bypass grafting. 2. Cardiogenic shock. 3. Early post-myocardial infarction complicated with ventricular fibrillation leading to cardiogenic shock. 4. Status post implantation of Impella from mechanical circulating support. 5. 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 6. Tobacco use in remission. Spirometry revealed an FEV1, which was 3.2 liters preoperatively. 7. Nutrition, currently on tube feeding. 8. History of hypertension. 9. Severe cardiomyopathy ejection fraction 20%. 10. Peripheral artery disease. 11. Atrial fibrillation. Plan . 1. cont vent support, setting reviewed, peep 5, off sedation, will do sbt when more alert 2. Continue nutritional support with tube feeding. 3. Continue pressors to maintain mean arterial pressure above 65. 4. Diurese, currently on IV Lasix. monitor k, cr 5. Continue empiric antibiotics. 6. Continue IV digoxin. discussed w rn rt JEWEL MCCOY MD Jul 31, 2016 04:56
[2016-07-31] MEDS: PIPERACILLIN/TAZOBACTAM 3.375 GM in IV NORMAL SALINE 50ML 50 ML IV SCH (05:32)
[2016-07-31 05:49] LABS: BASO % 0 % (0-3); EOS % 1 % (0-3); HEMATOCRIT 23.1 % (39.0-53.0); HEMOGLOBIN 7.7 g/dL (13.0-17.5); LYMPH # 1.2 x10^3/uL (1.0-4.8); LYMPH % 10 % (24-48); MEAN CORPUSCULAR HEMOGLOBIN 31 pg (25-35); MEAN CORPUSCULAR HGB CONC 33 g/dL (31-37); MEAN CORPUSCULAR VOLUME 94 fL (79-100); MONO % 6 % (0-9); NEUT % 82 % (31-73); PLATELET COUNT 86 x10^3/uL (140-400); RED BLOOD COUNT 2.47 x10^6/uL (4.30-5.70); WHITE BLOOD COUNT 11.7 x10^3/uL (4.0-11.0)
[2016-07-31 06:09] LABS: ALBUMIN 2.4 g/dL (3.4-5.0); CALCIUM 7.3 mg/dL (8.5-10.1); CREATININE 1.2 mg/dL (0.7-1.3); GFR 62.4; MAGNESIUM 2.8 mg/dL (1.8-2.4); POTASSIUM 3.8 mmol/L (3.5-5.1); TOTAL PROTEIN 4.7 g/dL (6.4-8.2)
[2016-07-31] MEDS: DOCUSATE 100 MG/10 ML SOLUTION. PO SCH (07:59)
[2016-07-31] MEDS: CHLORHEXIDINE 0.12% 15 ML MOUTHWASH. MM SCH ×2 (07:59→21:12)
[2016-07-31] MEDS: ASPIRIN 325 MG TABLET PO SCH (08:00)
[2016-07-31] MEDS: POTASSIUM CHLORIDE 20MEQ 50 ML IV SCH ×2 (08:00→09:04)
[2016-07-31] MEDS: MINERAL OIL/PETROLATUM,WHITE OPHTH OINT 3.5GM TUBE. OU SCH ×2 (08:01→21:21)
[2016-07-31] MEDS: AMIODARONE HCL 200 MG TABLET. PO SCH ×2 (08:01→21:21)
[2016-07-31] MEDS: FAMOTIDINE 20 MG/2 ML VIAL IVP SCH ×2 (08:01→21:10)
[2016-07-31] MEDS: DIGOXIN IV 500 MCG/2 ML AMPUL. IV SCH (08:02)
[2016-07-31] MEDS: METOPROLOL TARTRATE 5 MG/5 ML VIAL. IVP PRN (08:04)
[2016-07-31] MEDS: IPRATROPIUM BROMIDE 0.5 MG/2.5 ML NEBU. NEB SCH ×4 (08:04→20:06)
[2016-07-31 08:15] LABS: HCO3 ABG 27 mmol/L (21-28); PCO2 ABG 31 mmHg (35-46); PO2 ABG 104 mmHg (75-108); SAT O2 ABG 97 % (92-99)
[2016-07-31 09:03] LABS: PH ABG 7.56 (7.35-7.45)
--- NOTE | 2016-07-31 09:16 | RAD ---
CHEST AP ONLY Clinical Indication: post op CABG Comparison: July 30, 2016. Technique: Portable semiupright AP view of the chest is obtained. Findings: Distal tip of the ET tube, Wirtz-Anita catheter, NG tube, mediastinal drains and chest tube all appear stable in position. There is increased hazy opacification within the lower right hemithorax. Left lung remains clear. No pneumothorax is seen. Cardiomediastinal silhouette is stable in size and appearance area visualized osseous structures and overlying soft tissues demonstrate no acute interval change. IMPRESSION: Increased hazy appearance of the lower right hemithorax, may represent pleural fluid with adjacent atelectasis.
--- NOTE | 2016-07-31 09:51 | PDOC ---
PROGRESS NOTES Subjective Subjective Intubated and sedated Objective Objective Vital Signs Date Time Temp Pulse Resp B/P Pulse Ox O2 Delivery O2 Flow Rate FiO2 07/31/16 09:12 26 99 Ventilator 07/31/16 08:04 88 152/76 07/31/16 06:08 2.0 07/31/16 04:00 99.7 99.7 Intake and Output 07/31/16 07:00 Intake Total 1159 ml Output Total 4858 ml Balance -3699 ml IV Total 354 ml Tube Feeding 805 ml Output Urine Total 4610 ml Gastric Drainage Total 0 ml Chest Tube Drainage Total 248 ml # Bowel Movements 2 Physical Exam Abdomen: Normal bowel sounds, Soft Heart: Other (tachy, irregular) Extremities: No edema, Other (+ edema x4) General: Other (sedated, intubated, moving head) HEENT: Atraumatic, PERRLA Lungs: Normal air movement, Other (scattered bilateral crepitations) MUSCULOSKELETAL: No deformity Skin: No rashes Assessment Assessment 1. STEMI, 3v CAD CABG on 07/25/2016 with FLETCHER to LAD; SVG to LAD; SVG to OM1 and SVG to RPDA VF arrest after chest closed; reopened and placed back on bypass then converted to LVAD (Impella) Impella removed successfully Continue postop care per CT surgery 2. cardiogenic shock Impella removed 07/28/2016 - LVEF ~ 25% by echo TTE on 07/26/2016 with severe global hypokinesis of the left ventricle distal 2/3 of the LV is severely hypokinetic with akinesis of the mid to distal LAD and apex LVEF depressed at about 20% Continue dopamine infusion 3. atrial fib/flutter Heart rate better controlled with addition of digoxin. Change metoprolol from IV to 12.5 mg BID per feeding tube Plan Plan of Care Problems Medical Problems: (1) CAD (coronary artery disease), [place] coronary artery Status: Acute (2) Chest pain Status: Acute (3) STEMI (ST elevation myocardial infarction) Status: Acute Comment Review of Relevant I have reviewed the following items leonidas (where applicable) has been applied. Labs Laboratory Tests Test 07/31/16 05:30 07/31/16 08:00 White Blood Count 11.7x10^3/uL (4.0-11.0) Red Blood Count 2.47x10^6/uL (4.30-5.70) Hemoglobin 7.7g/dL (13.0-17.5) Hematocrit 23.1% (39.0-53.0) Mean Corpuscular Volume 94fL (79-100) Mean Corpuscular Hemoglobin 31pg (25-35) Mean Corpuscular Hemoglobin Concent 33g/dL (31-37) Red Cell Distribution Width 15.0% (11.5-14.5) Platelet Count 86x10^3/uL (140-400) Neutrophils (%) (Auto) 82% (31-73) Lymphocytes (%) (Auto) 10% (24-48) Monocytes (%) (Auto) 6% (0-9) Eosinophils (%) (Auto) 1% (0-3) Basophils (%) (Auto) 0% (0-3) Neutrophils # (Auto) 9.6x10^3uL (1.8-7.7) Lymphocytes # (Auto) 1.2x10^3/uL (1.0-4.8) Monocytes # (Auto) 0.7x10^3/uL (0.0-1.1) Eosinophils # (Auto) 0.1x10^3/uL (0.0-0.7) Basophils # (Auto) 0.0x10^3/uL (0.0-0.2) Sodium Level 146mmol/L (136-145) Potassium Level 3.8mmol/L (3.5-5.1) Chloride Level 110mmol/L (98-107) Carbon Dioxide Level 31mmol/L (21-32) Anion Gap 5 (6-14) Blood Urea Nitrogen 32mg/dL (8-26) Creatinine 1.2mg/dL (0.7-1.3) Estimated GFR (Cockcroft-Gault) 62.4 BUN/Creatinine Ratio 27 (6-20) Glucose Level 152mg/dL (70-99) Calcium Level 7.3mg/dL (8.5-10.1) Magnesium Level 2.8mg/dL (1.8-2.4) Total Bilirubin 8.0mg/dL (0.2-1.0) Aspartate Amino Transf (AST/SGOT) 254U/L (15-37) Alanine Aminotransferase (ALT/SGPT) 470U/L (16-63) Alkaline Phosphatase 144U/L (46-116) Total Protein 4.7g/dL (6.4-8.2) Albumin 2.4g/dL (3.4-5.0) Albumin/Globulin Ratio 1.0 (1.0-1.7) O2 Saturation 97% (92-99) Arterial Blood pH 7.56 (7.35-7.45) Arterial Blood pCO2 at Patient Temp 31mmHg (35-46) Arterial Blood pO2 at Patient Temp 104mmHg (75-108) Arterial Blood HCO3 27mmol/L (21-28) Arterial Blood Base Excess 4mmol/L (-3-3) Medications Current Medications Albumin Human (Albuminar) 50 ml @ 50 mls/hr 1X ONCE IV Last administered on 16:26; Start 07/30/16 at 16:30; Stop 07/30/16 at 17:29; Status DC Amiodarone HCl (Cordarone) 400 mg BID PO Last administered on 07/31/16 08:01; Start 07/30/16 at 21:00 Amiodarone HCl (Cordarone) 400 mg ONCE ONCE PO Last administered on 07/30/16 15:01; Start 07/30/16 at 13:30; Stop 07/30/16 at 13:46; Status DC Atropine Sulfate 0.5 mg PRN Q5MIN PRN IV SEE COMMENTS; Start 07/30/16 at 13:30 Dexmedetomidine HCl/Sodium Chloride (Precedex/Iv Sodium Chloride 0.9% 50ml) 50 ml @ 0 mls/hr CONT PRN IV PER PROTOCOL Last administered on 07/30/16 15:00; Start 07/30/16 at 13:30 Digoxin 125 mcg 125 mcg DAILY IV Last administered on 07/31/16 08:02; Start at 09:00 Digoxin 500 mcg 500 mcg 1X ONCE IV Last administered on 07/30/16 13:01; Start 07/30/16 at 12:15; Stop 07/30/16 at 12:19; Status DC Ibuprofen (Motrin) 200 mg PRN Q6HRS PRN PO fever; Start 07/30/16 at 19:45 Ipratropium [place] (Atrovent) 0.5 mg RTQID NEB Last administered on 07/31/16 08:04; Start 07/30/16 at 12:30 Metoprolol Tartrate (Lopressor) 2.5 mg 1X ONCE IVP Last administered on 20:23; Start 07/30/16 at 20:30; Stop 07/30/16 at 20:31; Status DC Metoprolol Tartrate 5 mg 5 mg PRN Q2HR PRN IVP HYPERTENSION Last administered on 07/31/16 08:04; Start 07/30/16 at 22:30 Potassium Chloride (KCl Premix 20meq) 50 ml @ 50 mls/hr Q1H IV Last administered on 07/31/16 09:04; Start 07/31/16 at 07:00; Stop 07/31/16 at 08:59 ; Status DC Vitals/I & O Vital Sign - Last 24 Hours 07/30/16 07/30/16 07/30/16 07/30/16 10:00 10:00 11:00 11:00 Pulse 120 120 142 142 Resp 16 16 B/P 106/58 106/58 122/68 122/68 Pulse Ox 97 97 O2 Delivery Ventilator Ventilator 07/30/16 07/30/16 07/30/16 07/30/16 11:30 12:00 12:00 12:00 Temp 100.2 100.2 Pulse 144 144 Resp 29 16 B/P 124/70 124/70 Pulse Ox 93 96 O2 Delivery Ventilator Ventilator Ventilator 07/30/16 07/30/16 07/30/16 07/30/16 12:00 12:13 13:00 13:00 Pulse 142 142 Resp 16 B/P 154/82 154/82 Pulse Ox 98 98 O2 Delivery Mechanical Ventilator Ventilator Ventilator 07/30/16 07/30/16 07/30/16 07/30/16 13:01 14:00 14:00 14:59 Pulse 141 124 124 Resp 16 29 B/P 163/90 134/74 134/74 Pulse Ox 98 98 O2 Delivery Ventilator Ventilator 07/30/16 07/30/16 07/30/16 07/30/16 15:00 15:00 15:01 15:29 Pulse 122 122 118 Resp 16 26 B/P 120/66 120/66 138/79 Pulse Ox 99 O2 Delivery Ventilator 07/30/16 07/30/16 07/30/16 07/30/16 15:59 16:00 16:00 16:00 Pulse 122 122 Resp 16 B/P 142/74 142/74 Pulse Ox 95 95 O2 Delivery Ventilator Ventilator Mechanical Ventilator 07/30/16 07/30/16 07/30/16 07/30/16 17:00 17:00 17:52 18:00 Temp 101.5 101.5 Pulse 118 118 132 Resp 16 16 B/P 102/58 102/58 144/76 Pulse Ox 99 95 98 O2 Delivery Ventilator Ventilator Ventilator 07/30/16 07/30/16 07/30/16 07/30/16 18:00 18:43 19:00 19:00 Temp 101.7 101.7 Pulse 132 143 142 Resp 27 16 B/P 144/76 107/61 138/72 Pulse Ox 96 98 O2 Delivery Ventilator Ventilator 07/30/16 07/30/16 07/30/16 07/30/16 20:00 20:00 20:00 20:23 Temp 101.2 101.2 Pulse 126 115 124 Resp 16 B/P 144/76 174/78 179/75 Pulse Ox 97 O2 Delivery Ventilator Mechanical Ventilator 07/30/16 07/30/16 07/30/16 07/30/16 20:27 20:45 21:00 21:00 Temp 100.9 100.9 Pulse 123 114 114 Resp 16 B/P 145/62 138/62 138/62 Pulse Ox 97 97 O2 Delivery Ventilator Ventilator 07/30/16 07/30/16 07/30/16 07/30/16 22:00 22:27 23:00 23:54 Temp 100.2 100.1 100.2 100.1 Pulse 119 111 112 Resp 16 16 B/P 167/77 148/71 180/80 Pulse Ox 99 96 95 O2 Delivery Ventilator Ventilator Ventilator 07/31/16 07/31/16 07/31/16 07/31/16 00:00 00:25 00:33 01:00 Temp 99.8 99.7 99.8 99.7 Pulse 144 114 Resp 16 16 B/P 162/78 177/80 Pulse Ox 99 95 95 O2 Delivery Ventilator Mechanical Ventilator Ventilator O2 Flow Rate 2.0 07/31/16 07/31/1607/31/07/31/16 01:00 02:00 02:10 03:00 Pulse 114 116 104 Resp 16 16 B/P 176/76 132/62 146/74 Pulse Ox 94 93 97 O2 Delivery Ventilator Ventilator Ventilator 07/31/16 07/31/16 07/31/16 07/31/16 03:00 04:00 04:00 04:13 Temp 99.7 99.7 Pulse 111 124 107 Resp 16 B/P 167/84 135/70 Pulse Ox 95 95 O2 Delivery Ventilator Ventilator 07/31/16 07/31/16 07/31/16 07/31/16 04:21 05:00 05:00 05:38 Pulse 108 115 Resp 16 B/P 126/62 Pulse Ox 95 95 O2 Delivery Mechanical Ventilator Ventilator O2 Flow Rate 2.0 07/31/16 07/31/16 07/31/16 07/31/16 06:00 06:08 06:09 08:01 Pulse 110 115 88 Resp 16 B/P 139/68 140/66 156/78 Pulse Ox 97 97 O2 Delivery Ventilator O2 Flow Rate 2.0 07/31/16 07/31/16 07/31/16 07/31/16 08:02 08:04 08:05 09:12 Pulse 88 88 Resp 26 B/P 141/73 152/76 Pulse Ox 99 99 O2 Delivery Ventilator Ventilator Intake and Output 07/30/16 07/30/16 07/31/16 15:00 23:00 07:00 Intake Total 40 ml 412 ml 707 ml Output Total 0 ml 3875 ml 983 ml Balance 40 ml -3463 ml -276 ml ANATOLIY ANGELO MD Jul 31, 2016 09:51
[2016-07-31] MEDS: METOPROLOL TART IMMED RELEASE 25 MG TABLET. NG SCH ×2 (10:24→21:19)
--- NOTE | 2016-07-31 10:24 | PDOC ---
PROGRESS NOTES Chief Complaint Chief Complaint Chest pain STEMI ASSESSMENT AND PLAN: 1. STEMI: 3-vessel dz by cardiac cath (07/20/16). s/p CABG on 07/25/2016: FLETCHER to LAD; SVG to LAD; SVG to OM1 and SVG to RPDA. VF arrest after chest closed; reopened and placed back on bypass then converted to LVAD. chest closed on 2. cardiogenic shock: post op, LVAD d/c.ed on 07/28 3. PAD: dissection in ext iliac/fem artery ballooned on 07/28 4. Cardiomyopathy: EF 45% pre-op; post op: 20% 5. Afib: poor rate control on amiodarone gtt. dig and BB added 6. Hypotension: recovering. weaning pressors, started on Precedex 7. Empiric Zosyn post CAGB: day#7 - stop 8. HLD: on statin, currently on hold 9. DM: no previous dx. on insulin gtt per CV protocol, now stopped 10. hepatitis; 2/2 cardiogenic shock most likely. monitor 11. Nutrition: NG feed, titrate up as tolerated Prognosis: critical CC time: 35 min Vitals Vitals Vital Signs Date Time Temp Pulse Resp B/P Pulse Ox O2 Delivery O2 Flow Rate FiO2 07/31/16 09:42 25 98 Ventilator 07/31/16 08:04 88 152/76 07/31/16 06:08 2.0 07/31/16 04:00 99.7 99.7 Physical Exam Physical Exam scleral icterus General: Other (sedated, intubated, moving head) Heart: Other (tachy, irregular) Lungs: Clear Abdomen: Normal bowel sounds, Soft Extremities: No edema, Other (+ edema x4) Skin: No rashes Labs LABS Laboratory Tests Test 07/31/16 05:30 07/31/16 08:00 White Blood Count 11.7x10^3/uL (4.0-11.0) Red Blood Count 2.47x10^6/uL (4.30-5.70) Hemoglobin 7.7g/dL (13.0-17.5) Hematocrit 23.1% (39.0-53.0) Mean Corpuscular Volume 94fL (79-100) Mean Corpuscular Hemoglobin 31pg (25-35) Mean Corpuscular Hemoglobin Concent 33g/dL (31-37) Red Cell Distribution Width 15.0% (11.5-14.5) Platelet Count 86x10^3/uL (140-400) Neutrophils (%) (Auto) 82% (31-73) Lymphocytes (%) (Auto) 10% (24-48) Monocytes (%) (Auto) 6% (0-9) Eosinophils (%) (Auto) 1% (0-3) Basophils (%) (Auto) 0% (0-3) Neutrophils # (Auto) 9.6x10^3uL (1.8-7.7) Lymphocytes # (Auto) 1.2x10^3/uL (1.0-4.8) Monocytes # (Auto) 0.7x10^3/uL (0.0-1.1) Eosinophils # (Auto) 0.1x10^3/uL (0.0-0.7) Basophils # (Auto) 0.0x10^3/uL (0.0-0.2) Sodium Level 146mmol/L (136-145) Potassium Level 3.8mmol/L (3.5-5.1) Chloride Level 110mmol/L (98-107) Carbon Dioxide Level 31mmol/L (21-32) Anion Gap 5 (6-14) Blood Urea Nitrogen 32mg/dL (8-26) Creatinine 1.2mg/dL (0.7-1.3) Estimated GFR (Cockcroft-Gault) 62.4 BUN/Creatinine Ratio 27 (6-20) Glucose Level 152mg/dL (70-99) Calcium Level 7.3mg/dL (8.5-10.1) Magnesium Level 2.8mg/dL (1.8-2.4) Total Bilirubin 8.0mg/dL (0.2-1.0) Aspartate Amino Transf (AST/SGOT) 254U/L (15-37) Alanine Aminotransferase (ALT/SGPT) 470U/L (16-63) Alkaline Phosphatase 144U/L (46-116) Total Protein 4.7g/dL (6.4-8.2) Albumin 2.4g/dL (3.4-5.0) Albumin/Globulin Ratio 1.0 (1.0-1.7) O2 Saturation 97% (92-99) Arterial Blood pH 7.56 (7.35-7.45) Arterial Blood pCO2 at Patient Temp 31mmHg (35-46) Arterial Blood pO2 at Patient Temp 104mmHg (75-108) Arterial Blood HCO3 27mmol/L (21-28) Arterial Blood Base Excess 4mmol/L (-3-3) Review of Systems Review of Systems intubated, sedated PANTERA MARTINEZ MD Jul 31, 2016 10:24
[2016-07-31] MEDS: hydrALAZINE 20 MG/ML VIAL. IVP PRN (10:58)
[2016-07-31] MEDS ORDERED: DOCUSATE 100 MG/10 ML SOLUTION. PO PRN (11:00)
--- NOTE | 2016-07-31 13:04 | PDOC ---
Progress Note Subjective Subjective Remains stable. Cardiac index has been above 2.5, he is on 5mcg of dobutamine. He has been hypertensive. He remains in atrial fibrillation which is chronic, rate controlled. Vent settings FIO2 40% with PEEP 5 with good oxygenation and ventilation. He has been diuresing well approximately 200-300 mL an hour on a Lasix drip at 5 mg per hour. He was negative 3 lit over the past 24 hr. His left foot has palpable pulses. He is receiving tube feeds at 40 mL which he is tolerating-he has had bowel movements. Off sedation, 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, but doesn't follow commands. Attempted C-PAP trial, became tachypneic after 5 minutes. ROS ROS Unable to obtain-intubated Vital Sign Vital Signs Vital Signs Date Time Temp Pulse Resp B/P Pulse Ox O2 Delivery O2 Flow Rate FiO2 07/31/16 11:23 99 Ventilator 07/31/16 10:58 127 133/70 07/31/16 09:42 25 07/31/16 06:08 2.0 07/31/16 04:00 99.7 99.7 Physical Exam PHYSICAL EXAM GENERAL: Intubated sedated HEENT: Pupils reactive, scleral icterus NECK: Supple LUNGS: Clear HEART: S1S2 CHEST: sternotomy: D/C/I ABD: Soft, NT EXT: edema improved, warm well perfused, pedal pulses palpable INS[employer]ANCE [employer]OD[employer]ER: Intubated,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 SKIN: No rash IV: ok Labs Lab Laboratory Tests Test 07/31/16 05:30 07/31/16 08:00 White Blood Count 11.7x10^3/uL (4.0-11.0) Red Blood Count 2.47x10^6/uL (4.30-5.70) Hemoglobin 7.7g/dL (13.0-17.5) Hematocrit 23.1% (39.0-53.0) Mean Corpuscular Volume 94fL (79-100) Mean Corpuscular Hemoglobin 31pg (25-35) Mean Corpuscular Hemoglobin Concent 33g/dL (31-37) Red Cell Distribution Width 15.0% (11.5-14.5) Platelet Count 86x10^3/uL (140-400) Neutrophils (%) (Auto) 82% (31-73) Lymphocytes (%) (Auto) 10% (24-48) Monocytes (%) (Auto) 6% (0-9) Eosinophils (%) (Auto) 1% (0-3) Basophils (%) (Auto) 0% (0-3) Neutrophils # (Auto) 9.6x10^3uL (1.8-7.7) Lymphocytes # (Auto) 1.2x10^3/uL (1.0-4.8) Monocytes # (Auto) 0.7x10^3/uL (0.0-1.1) Eosinophils # (Auto) 0.1x10^3/uL (0.0-0.7) Basophils # (Auto) 0.0x10^3/uL (0.0-0.2) Sodium Level 146mmol/L (136-145) Potassium Level 3.8mmol/L (3.5-5.1) Chloride Level 110mmol/L (98-107) Carbon Dioxide Level 31mmol/L (21-32) Anion Gap 5 (6-14) Blood Urea Nitrogen 32mg/dL (8-26) Creatinine 1.2mg/dL (0.7-1.3) Estimated GFR (Cockcroft-Gault) 62.4 BUN/Creatinine Ratio 27 (6-20) Glucose Level 152mg/dL (70-99) Calcium Level 7.3mg/dL (8.5-10.1) Magnesium Level 2.8mg/dL (1.8-2.4) Total Bilirubin 8.0mg/dL (0.2-1.0) Aspartate Amino Transf (AST/SGOT) 254U/L (15-37) Alanine Aminotransferase (ALT/SGPT) 470U/L (16-63) Alkaline Phosphatase 144U/L (46-116) Total Protein 4.7g/dL (6.4-8.2) Albumin 2.4g/dL (3.4-5.0) Albumin/Globulin Ratio 1.0 (1.0-1.7) O2 Saturation 97% (92-99) Arterial Blood pH 7.56 (7.35-7.45) Arterial Blood pCO2 at Patient Temp 31mmHg (35-46) Arterial Blood pO2 at Patient Temp 104mmHg (75-108) Arterial Blood HCO3 27mmol/L (21-28) Arterial Blood Base Excess 4mmol/L (-3-3) Objective Assessment Status post CABG 3 for severe ischemic cardiomyopathy, large anterior STEMI with troponin of 100, with early postoperative myocardial infarction/V. fib, leading to cardiogenic shock, placement of the vein graft to the LAD and impella for mechanical circulatory support and open chest. Sternotomy has been closed and the LVAD has been removed.. Remains stable. Cardiac index has been above 2.5, he is on 5mcg of dobutamine. He has been hypertensive. He remains in atrial fibrillation which is chronic, rate controlled. Vent settings FIO2 40% with PEEP 5 with good oxygenation and ventilation. He has been diuresing well approximately 200-300 mL an hour on a Lasix drip at 5 mg per hour. He was negative 3 lit over the past 24 hr. His left foot has palpable pulses. He is receiving tube feeds at 40 mL which he is tolerating-he has had bowel movements. Off sedation, 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, but doesn't follow commands. Attempted C-PAP trial, became tachypneic after 5 minutes. Main issue now is agitation/confusion, which does not allow us to proceed with successful breathing trial Plan Plan of Care No sedation. Can start Precedex at 0.3 if he becomes too agitated D/c [place] D/c Cordis PICC line Keep dopamine at 5 mcg Stop Lasix drip. Start 40mg iv TID 400mg po BID for A. fib control Continue IV Zosyn and vancomycin for previous open chest D/c mediastinal tubes Increase tube feeds to goal Coags, If INR>2, give 5mg iv Vit K Check direct/indirect bilirubin. Total bili is 8, coming down, most likely indirect from hemolysis If he remains confused, agitated and non co-operative with breathing trial over the next 2-3 days, may consider tracheostomy Would continue breathing trials throughout the day with higher pressure support , for exercise / reconditioning OLGA LOPEZ MD Jul 31, 2016 13:04
[2016-07-31] MEDS ORDERED: hydrALAZINE 20 MG/ML VIAL. IVP PRN (13:30)
[2016-07-31 13:59] LABS: INR 1.4 (0.8-1.1)
[2016-07-31] MEDS: FUROSEMIDE 40 MG/4 ML VIAL. IVP SCH ×2 (14:00→21:09)
[2016-07-31] MEDS: fentaNYL PF VIAL 100 MCG/2 ML VIAL IV PRN ×2 (15:31→18:03)
[2016-07-31 19:51] LABS: BILIRUBIN,URINE SMALL (NEG); GLUCOSE,URINE NEGATIVE (NEG); NITRITE,URINE NEGATIVE (NEG); PH,URINE 8.5; PROTEIN,URINE NEGATIVE (NEG-TRACE)
[2016-07-31 19:58] LABS: BACTERIA,URINE 0 /HPF (0-FEW)
[2016-07-31] MEDS: ATORVASTATIN CALCIUM 40 MG TABLET. PO SCH (21:21)
[2016-07-31] MEDS ORDERED: ALTEPLASE 2 MG VIAL INT CAT ONE (23:15)
[2016-08-01] VITALS (24 sets, daily range): BP systolic 120–166; BP diastolic 60–80
[2016-08-01 06:46] LABS: BASO % 0 % (0-3); EOS % 1 % (0-3); HEMOGLOBIN 8.8 g/dL (13.0-17.5); LYMPH # 1.5 x10^3/uL (1.0-4.8); LYMPH % 12 % (24-48); MEAN CORPUSCULAR HEMOGLOBIN 32 pg (25-35); MEAN CORPUSCULAR HGB CONC 34 g/dL (31-37); MEAN CORPUSCULAR VOLUME 94 fL (79-100); MONO % 6 % (0-9); NEUT % 80 % (31-73); PLATELET COUNT 106 x10^3/uL (140-400); RED BLOOD COUNT 2.77 x10^6/uL (4.30-5.70); RED CELL DISTRIBUTION WIDTH 15.6 % (11.5-14.5); WHITE BLOOD COUNT 12.5 x10^3/uL (4.0-11.0)
[2016-08-01 06:57] LABS: ALBUMIN 2.4 g/dL (3.4-5.0); ALBUMIN/GLOBULIN RATIO 0.9 (1.0-1.7); CALCIUM 7.6 mg/dL (8.5-10.1); CREATININE 1.1 mg/dL (0.7-1.3); MAGNESIUM 2.7 mg/dL (1.8-2.4); POTASSIUM 4.1 mmol/L (3.5-5.1); TOTAL BILIRUBIN 6.6 mg/dL (0.2-1.0); TOTAL PROTEIN 5.1 g/dL (6.4-8.2)
--- NOTE | 2016-08-01 07:29 | RAD ---
Portable chest, 08/01/2016: History: Respiratory failure, postop CABG Comparison is made to yesterday's study at 9:19 PM. An ET tube has its tip located well above the clara. An NG tube extends into the stomach. A right PICC extends to the level of the atriocaval junction. A left chest tube remains in place. The heart size and pulmonary vascularity are normal. There is a mild hazy right basilar opacity partially obscuring the hemidiaphragm. The appearance suggests possible pleural fluid layering posteriorly with underlying atelectasis. Similar findings were present on yesterday's study. There is minimal left basilar atelectasis. The upper lung soares are clear. There is no evidence of pneumothorax. IMPRESSION: No significant change since yesterday's study.
--- NOTE | 2016-08-01 07:41 | RAD ---
Portable chest, 07/31/2016, 9:19 PM: History: Check PICC placement Comparison is made to the study of earlier the same day. A right PICC has been inserted extending to the level of the atriocaval junction. The [place] catheter has been removed. A right jugular vascular sheath remains in place extending into the superior vena cava. The ET tube tip lies well above the clara. An NG tube extends into the stomach. A left chest tube remains in place. The heart size and pulmonary vascularity are normal. The right basilar opacity has improved suggesting improving atelectasis. A small amount of underlying pleural fluid cannot be excluded. The left chest remains clear. IMPRESSION: 1. Interval insertion of a right PICC extending to the level of the atriocaval junction. 2. Improving right basilar atelectasis
[2016-08-01] MEDS: ASPIRIN 325 MG TABLET PO SCH (08:00)
[2016-08-01 08:26] LABS: % EOS 1 % (0-5); NUCLEATED RBC 5
[2016-08-01 08:28] LABS: ANISOCYTOSIS SLIGHT; PLT ESTIMATE DECREASED (ADEQUATE); POLYCHROMASIA SLIGHT
[2016-08-01] MEDS: FUROSEMIDE 40 MG/4 ML VIAL. IVP SCH ×3 (08:41→21:13)
[2016-08-01] MEDS: AMIODARONE HCL 200 MG TABLET. PO SCH ×2 (08:42→21:10)
[2016-08-01] MEDS: METOPROLOL TART IMMED RELEASE 25 MG TABLET. NG SCH ×2 (08:44→21:09)
[2016-08-01] MEDS: MINERAL OIL/PETROLATUM,WHITE OPHTH OINT 3.5GM TUBE. OU SCH ×2 (08:44→21:13)
[2016-08-01] MEDS: DIGOXIN IV 500 MCG/2 ML AMPUL. IV SCH (09:00)
[2016-08-01] MEDS: CHLORHEXIDINE 0.12% 15 ML MOUTHWASH. MM SCH ×2 (09:00→20:11)
[2016-08-01] MEDS: FAMOTIDINE 20 MG/2 ML VIAL IVP SCH ×2 (09:00→21:10)
[2016-08-01] MEDS: IPRATROPIUM BROMIDE 0.5 MG/2.5 ML NEBU. NEB SCH ×4 (09:04→20:21)
[2016-08-01 09:19] LABS: HCO3 ABG 25 mmol/L (21-28); PCO2 ABG 34 mmHg (35-46); PH ABG 7.49 (7.35-7.45); PO2 ABG 82 mmHg (75-108); SAT O2 ABG 96 % (92-99)
[2016-08-01 09:21] LABS: FIO2 ABG 40
--- NOTE | 2016-08-01 12:26 | PDOC ---
PROGRESS NOTES Chief Complaint Chief Complaint Chest pain STEMI 1. STEMI: 3-vessel dz by cardiac cath (07/20/16). s/p CABG on 07/25/2016 : FLETCHER to LAD; SVG to LAD; SVG to OM1 and SVG to RPDA. VF arrest after chest closed; reopened and placed back on bypass then converted to LVAD. chest closed yesterday 2. cardiogenic shock: post op, on LVAD, d/c.ed today 3. 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 D/w [facility], Dr Mattson 4. Cardiomyopathy: EF 455 pre-op, rpt echo today: 20% 5. Afib: on amiodarone and dig and metoprolol 6. HTN: meds as tolerated; currently on pressors; very fragile BPs, fluid dependent 7. toxic encephalopathy with 2 8. HLD: on statin, currently on hold 9. DM: on insulin gtt 10: Nutrition: cautious NG feed today 11. liver shock with 2 poor prognosis, cont current meds fu with CT, card, pulm on OGT feeding dvt, gi ppx talked to at bedside, may need trach, PEG this week CC time 40 min History of Present Illness History of Present Illness intubated, off sedation 2 days, spontaneously open eyes, not follow commands tachycardia, afib on OGT feeding EF 20% Vitals Vitals Vital Signs Date Time Temp Pulse Resp B/P Pulse Ox O2 Delivery O2 Flow Rate FiO2 08/01/16 11:00 114 16 98 08/01/16 09:00 Ventilator 08/01/16 07:00 99.6 99.6 Physical Exam Physical Exam GENERAL: Intubated sedated HEENT: Pupils reactive, scleral icterus NECK: Supple LUNGS: Clear HEART: S1S2 CHEST: sternotomy: D/C/I ABD: Soft, NT EXT: edema improved, warm well perfused, pedal pulses palpable 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,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, not follow commands SKIN: No rash IV: ok General: Other (sedated, intubated, moving head) Heart: Other (tachy, irregular) Lungs: Clear Abdomen: Soft, Other (distended) Extremities: No edema, Other (+ edema x4) Skin: No rashes Labs LABS Laboratory Tests Test 07/31/16 13:35 07/31/16 14:30 08/01/16 06:20 08/01/16 08:55 Prothrombin Time 16.0SEC (11.7-14.0) Prothromb Time International Ratio 1.4 (0.8-1.1) Activated Partial Thromboplast Time 30SEC (24-38) Urine Collection Type U cath Urine Color Keke Urine Clarity Clear Urine pH 8.5 Urine Specific [place] 1.020 Urine Protein Negativemg/dL (NEG-TRACE) Urine Glucose (UA) Negativemg/dL (NEG) Urine Ketones (Stick) Negativemg/dL (NEG) Urine Blood Negative (NEG) Urine Nitrite Negative (NEG) Urine Bilirubin Small (NEG) Urine Urobilinogen Dipstick 1.0mg/dL (0.2 mg/dL) Urine Leukocyte Esterase Negative (NEG) Urine RBC 6-10/HPF (0-2) Urine WBC 1-4/HPF (0-4) Urine Bacteria 0/HPF (0-FEW) Urine Hyaline Casts Few/HPF White Blood Count 12.5x10^3/uL (4.0-11.0) Red Blood Count 2.77x10^6/uL (4.30-5.70) Hemoglobin 8.8g/dL (13.0-17.5) Hematocrit 26.0% (39.0-53.0) Mean Corpuscular Volume 94fL (79-100) Mean Corpuscular Hemoglobin 32pg (25-35) Mean Corpuscular Hemoglobin Concent 34g/dL (31-37) Red Cell Distribution Width 15.6% (11.5-14.5) Platelet Count 106x10^3/uL (140-400) Neutrophils (%) (Auto) 80% (31-73) Lymphocytes (%) (Auto) 12% (24-48) Monocytes (%) (Auto) 6% (0-9) Eosinophils (%) (Auto) 1% (0-3) Basophils (%) (Auto) 0% (0-3) Neutrophils # (Auto) 10.0x10^3uL (1.8-7.7) Lymphocytes # (Auto) 1.5x10^3/uL (1.0-4.8) Monocytes # (Auto) 0.8x10^3/uL (0.0-1.1) Eosinophils # (Auto) 0.1x10^3/uL (0.0-0.7) Basophils # (Auto) 0.0x10^3/uL (0.0-0.2) Segmented Neutrophils % 70% (35-66) Band Neutrophils % 18% (0-9) Lymphocytes % 7% (24-48) Monocytes % 2% (0-10) Eosinophils % 1% (0-5) Metamyelocytes % 2% (0-0) Nucleated Red Blood Cells 5 Platelet Estimate Decreased (ADEQUATE) Polychromasia Slight Basophilic Stippling Present Anisocytosis Slight Sodium Level 148mmol/L (136-145) Potassium Level 4.1mmol/L (3.5-5.1) Chloride Level 111mmol/L (98-107) Carbon Dioxide Level 29mmol/L (21-32) Anion Gap 8 (6-14) Blood Urea Nitrogen 33mg/dL (8-26) Creatinine 1.1mg/dL (0.7-1.3) Estimated GFR (Cockcroft-Gault) 69.0 BUN/Creatinine Ratio 30 (6-20) Glucose Level 143mg/dL (70-99) Calcium Level 7.6mg/dL (8.5-10.1) Magnesium Level 2.7mg/dL (1.8-2.4) Total Bilirubin 6.6mg/dL (0.2-1.0) Direct Bilirubin 4.9mg/dL (0.0-0.2) Aspartate Amino Transf (AST/SGOT) 166U/L (15-37) Alanine Aminotransferase (ALT/SGPT) 411U/L (16-63) Alkaline Phosphatase 208U/L (46-116) Total Protein 5.1g/dL (6.4-8.2) Albumin 2.4g/dL (3.4-5.0) Albumin/Globulin Ratio 0.9 (1.0-1.7) O2 Saturation 96% (92-99) Arterial Blood pH 7.49 (7.35-7.45) Arterial Blood pCO2 at Patient Temp 34mmHg (35-46) Arterial Blood pO2 at Patient Temp 82mmHg (75-108) Arterial Blood HCO3 25mmol/L (21-28) Arterial Blood Base Excess 2mmol/L (-3-3) FiO2 40 Review of Systems Review of Systems no fever, chills Assessment and Plan Assessmemt and Plan Problems Medical Problems: (1) CAD (coronary artery disease), [place] coronary artery Status: Acute (2) Chest pain Status: Acute (3) STEMI (ST elevation myocardial infarction) Status: Acute Problems: Comment Review of Relevant I have reviewed the following items leonidas (where applicable) has been applied. Labs Laboratory Tests Test 07/31/16 05:30 07/31/16 08:00 07/31/16 13:35 07/31/16 14:30 White Blood Count 11.7x10^3/uL (4.0-11.0) Red Blood Count 2.47x10^6/uL (4.30-5.70) Hemoglobin 7.7g/dL (13.0-17.5) Hematocrit 23.1% (39.0-53.0) Mean Corpuscular Volume 94fL (79-100) Mean Corpuscular Hemoglobin 31pg (25-35) Mean Corpuscular Hemoglobin Concent 33g/dL (31-37) Red Cell Distribution Width 15.0% (11.5-14.5) Platelet Count 86x10^3/uL (140-400) Neutrophils (%) (Auto) 82% (31-73) Lymphocytes (%) (Auto) 10% (24-48) Monocytes (%) (Auto) 6% (0-9) Eosinophils (%) (Auto) 1% (0-3) Basophils (%) (Auto) 0% (0-3) Neutrophils # (Auto) 9.6x10^3uL (1.8-7.7) Lymphocytes # (Auto) 1.2x10^3/uL (1.0-4.8) Monocytes # (Auto) 0.7x10^3/uL (0.0-1.1) Eosinophils # (Auto) 0.1x10^3/uL (0.0-0.7) Basophils # (Auto) 0.0x10^3/uL (0.0-0.2) Sodium Level 146mmol/L (136-145) Potassium Level 3.8mmol/L (3.5-5.1) Chloride Level 110mmol/L (98-107) Carbon Dioxide Level 31mmol/L (21-32) Anion Gap 5 (6-14) Blood Urea Nitrogen 32mg/dL (8-26) Creatinine 1.2mg/dL (0.7-1.3) Estimated GFR (Cockcroft-Gault) 62.4 BUN/Creatinine Ratio 27 (6-20) Glucose Level 152mg/dL (70-99) Calcium Level 7.3mg/dL (8.5-10.1) Magnesium Level 2.8mg/dL (1.8-2.4) Total Bilirubin 8.0mg/dL (0.2-1.0) Aspartate Amino Transf (AST/SGOT) 254U/L (15-37) Alanine Aminotransferase (ALT/SGPT) 470U/L (16-63) Alkaline Phosphatase 144U/L (46-116) Total Protein 4.7g/dL (6.4-8.2) Albumin 2.4g/dL (3.4-5.0) Albumin/Globulin Ratio 1.0 (1.0-1.7) O2 Saturation 97% (92-99) Arterial Blood pH 7.56 (7.35-7.45) Arterial Blood pCO2 at Patient Temp 31mmHg (35-46) Arterial Blood pO2 at Patient Temp 104mmHg (75-108) Arterial Blood HCO3 27mmol/L (21-28) Arterial Blood Base Excess 4mmol/L (-3-3) Prothrombin Time 16.0SEC (11.7-14.0) Prothromb Time International Ratio 1.4 (0.8-1.1) Activated Partial Thromboplast Time 30SEC (24-38) Urine Collection Type U cath Urine Color Keke Urine Clarity Clear Urine pH 8.5 Urine Specific [place] 1.020 Urine Protein Negativemg/dL (NEG-TRACE) Urine Glucose (UA) Negativemg/dL (NEG) Urine Ketones (Stick) Negativemg/dL (NEG) Urine Blood Negative (NEG) Urine Nitrite Negative (NEG) Urine Bilirubin Small (NEG) Urine Urobilinogen Dipstick 1.0mg/dL (0.2 mg/dL) Urine Leukocyte Esterase Negative (NEG) Urine RBC 6-10/HPF (0-2) Urine WBC 1-4/HPF (0-4) Urine Bacteria 0/HPF (0-FEW) Urine Hyaline Casts Few/HPF Test 08/01/16 06:20 08/01/16 08:55 White Blood Count 12.5x10^3/uL (4.0-11.0) Red Blood Count 2.77x10^6/uL (4.30-5.70) Hemoglobin 8.8g/dL (13.0-17.5) Hematocrit 26.0% (39.0-53.0) Mean Corpuscular Volume 94fL (79-100) Mean Corpuscular Hemoglobin 32pg (25-35) Mean Corpuscular Hemoglobin Concent 34g/dL (31-37) Red Cell Distribution Width 15.6% (11.5-14.5) Platelet Count 106x10^3/uL (140-400) Neutrophils (%) (Auto) 80% (31-73) Lymphocytes (%) (Auto) 12% (24-48) Monocytes (%) (Auto) 6% (0-9) Eosinophils (%) (Auto) 1% (0-3) Basophils (%) (Auto) 0% (0-3) Neutrophils # (Auto) 10.0x10^3uL (1.8-7.7) Lymphocytes # (Auto) 1.5x10^3/uL (1.0-4.8) Monocytes # (Auto) 0.8x10^3/uL (0.0-1.1) Eosinophils # (Auto) 0.1x10^3/uL (0.0-0.7) Basophils # (Auto) 0.0x10^3/uL (0.0-0.2) Segmented Neutrophils % 70% (35-66) Band Neutrophils % 18% (0-9) Lymphocytes % 7% (24-48) Monocytes % 2% (0-10) Eosinophils % 1% (0-5) Metamyelocytes % 2% (0-0) Nucleated Red Blood Cells 5 Platelet Estimate Decreased (ADEQUATE) Polychromasia Slight Basophilic Stippling Present Anisocytosis Slight Sodium Level 148mmol/L (136-145) Potassium Level 4.1mmol/L (3.5-5.1) Chloride Level 111mmol/L (98-107) Carbon Dioxide Level 29mmol/L (21-32) Anion Gap 8 (6-14) Blood Urea Nitrogen 33mg/dL (8-26) Creatinine 1.1mg/dL (0.7-1.3) Estimated GFR (Cockcroft-Gault) 69.0 BUN/Creatinine Ratio 30 (6-20) Glucose Level 143mg/dL (70-99) Calcium Level 7.6mg/dL (8.5-10.1) Magnesium Level 2.7mg/dL (1.8-2.4) Total Bilirubin 6.6mg/dL (0.2-1.0) Direct Bilirubin 4.9mg/dL (0.0-0.2) Aspartate Amino Transf (AST/SGOT) 166U/L (15-37) Alanine Aminotransferase (ALT/SGPT) 411U/L (16-63) Alkaline Phosphatase 208U/L (46-116) Total Protein 5.1g/dL (6.4-8.2) Albumin 2.4g/dL (3.4-5.0) Albumin/Globulin Ratio 0.9 (1.0-1.7) O2 Saturation 96% (92-99) Arterial Blood pH 7.49 (7.35-7.45) Arterial Blood pCO2 at Patient Temp 34mmHg (35-46) Arterial Blood pO2 at Patient Temp 82mmHg (75-108) Arterial Blood HCO3 25mmol/L (21-28) Arterial Blood Base Excess 2mmol/L (-3-3) FiO2 40 Laboratory Tests Test 07/31/16 13:35 07/31/16 14:30 08/01/16 06:20 08/01/16 08:55 Prothrombin Time 16.0SEC (11.7-14.0) Prothromb Time International Ratio 1.4 (0.8-1.1) Activated Partial Thromboplast Time 30SEC (24-38) Urine Collection Type U cath Urine Color Keke Urine Clarity Clear Urine pH 8.5 Urine Specific [place] 1.020 Urine Protein Negativemg/dL (NEG-TRACE) Urine Glucose (UA) Negativemg/dL (NEG) Urine Ketones (Stick) Negativemg/dL (NEG) Urine Blood Negative (NEG) Urine Nitrite Negative (NEG) Urine Bilirubin Small (NEG) Urine Urobilinogen Dipstick 1.0mg/dL (0.2 mg/dL) Urine Leukocyte Esterase Negative (NEG) Urine RBC 6-10/HPF (0-2) Urine WBC 1-4/HPF (0-4) Urine Bacteria 0/HPF (0-FEW) Urine Hyaline Casts Few/HPF White Blood Count 12.5x10^3/uL (4.0-11.0) Red Blood Count 2.77x10^6/uL (4.30-5.70) Hemoglobin 8.8g/dL (13.0-17.5) Hematocrit 26.0% (39.0-53.0) Mean Corpuscular Volume 94fL (79-100) Mean Corpuscular Hemoglobin 32pg (25-35) Mean Corpuscular Hemoglobin Concent 34g/dL (31-37) Red Cell Distribution Width 15.6% (11.5-14.5) Platelet Count 106x10^3/uL (140-400) Neutrophils (%) (Auto) 80% (31-73) Lymphocytes (%) (Auto) 12% (24-48) Monocytes (%) (Auto) 6% (0-9) Eosinophils (%) (Auto) 1% (0-3) Basophils (%) (Auto) 0% (0-3) Neutrophils # (Auto) 10.0x10^3uL (1.8-7.7) Lymphocytes # (Auto) 1.5x10^3/uL (1.0-4.8) Monocytes # (Auto) 0.8x10^3/uL (0.0-1.1) Eosinophils # (Auto) 0.1x10^3/uL (0.0-0.7) Basophils # (Auto) 0.0x10^3/uL (0.0-0.2) Segmented Neutrophils % 70% (35-66) Band Neutrophils % 18% (0-9) Lymphocytes % 7% (24-48) Monocytes % 2% (0-10) Eosinophils % 1% (0-5) Metamyelocytes % 2% (0-0) Nucleated Red Blood Cells 5 Platelet Estimate Decreased (ADEQUATE) Polychromasia Slight Basophilic Stippling Present Anisocytosis Slight Sodium Level 148mmol/L (136-145) Potassium Level 4.1mmol/L (3.5-5.1) Chloride Level 111mmol/L (98-107) Carbon Dioxide Level 29mmol/L (21-32) Anion Gap 8 (6-14) Blood Urea Nitrogen 33mg/dL (8-26) Creatinine 1.1mg/dL (0.7-1.3) Estimated GFR (Cockcroft-Gault) 69.0 BUN/Creatinine Ratio 30 (6-20) Glucose Level 143mg/dL (70-99) Calcium Level 7.6mg/dL (8.5-10.1) Magnesium Level 2.7mg/dL (1.8-2.4) Total Bilirubin 6.6mg/dL (0.2-1.0) Direct Bilirubin 4.9mg/dL (0.0-0.2) Aspartate Amino Transf (AST/SGOT) 166U/L (15-37) Alanine Aminotransferase (ALT/SGPT) 411U/L (16-63) Alkaline Phosphatase 208U/L (46-116) Total Protein 5.1g/dL (6.4-8.2) Albumin 2.4g/dL (3.4-5.0) Albumin/Globulin Ratio 0.9 (1.0-1.7) O2 Saturation 96% (92-99) Arterial Blood pH 7.49 (7.35-7.45) Arterial Blood pCO2 at Patient Temp 34mmHg (35-46) Arterial Blood pO2 at Patient Temp 82mmHg (75-108) Arterial Blood HCO3 25mmol/L (21-28) Arterial Blood Base Excess 2mmol/L (-3-3) FiO2 40 Microbiology 07/30/16 Blood Culture - Preliminary, Resulted NO GROWTH AFTER 1 DAY Medications Current Medications Nitroglycerin 0.4 mg 0.4 mg PRN Q5MIN PRN SL CP RATING > 1/10; Start 07/20/16 at 09:45; Stop 07/20/16 at 15:05; Status DC Nitroglycerin/ Dextrose (Nitroglycerin Drip) 250 ml @ 3 mls/hr 1X ONCE IV Last administered on 07/20/16t 10:02; Start 07/20/16 at 10:30; Stop 07/23/16 at 21: 49; Status DC Morphine Sulfate 2 mg PRN Q15MIN PRN IV/SQ PAIN GREATER THAN 3/10; Start at 09:45; Stop 07/21/16 at 09:44; Status DC Ondansetron HCl (Zofran) 4 mg PRN Q8HRS PRN IV NAUSEA/VOMITING; Start 07/20/16 at 12:30; Stop 07/20/16 at 13:36; Status DC Morphine Sulfate 2 mg 2 mg PRN Q2HR PRN IV PAIN; Start 07/20/16 at 12:30; Stop 07/21/16 at 12:29; Status DC Heparin Sodium/ Dextrose 500 ml @ 0 mls/hr CONT PRN IV . Last administered on 10:32; Start 07/20/16 at 13:00; Stop 07/21/16 at 14:50; Status DC Metoprolol Tartrate (Lopressor) 5 mg Q6HRS IVP ; Start 07/20/16 at 13:00; Stop at 14:53; Status DC Aspirin (Ecotrin) 325 mg [id number] PO Last administered on 07/21/16 08:11; Start 07/20/16 at 13:00; Stop 07/21/16 at 17:20; Status DC Ondansetron HCl (Zofran) 4 mg PRN Q6HRS PRN IV NAUSEA/VOMITING; Start 07/20/16 at 13:35; Stop 07/26/16 at 11:41; Status DC Acetaminophen (Tylenol) 500 mg PRN Q6HRS PRN PO MILD PAIN / TEMP Last administered on 07/29/16 09:55; Start 07/20/16 at 13:45; Stop 07/29/16 at 13:38 ; Status DC Docusate Sodium (Colace) 100 mg DAILY PO Last administered on 07/29/16 09:54; Start 07/20/16 at 15:00; Stop 07/29/16 at 10:03; Status DC Iohexol 100 ml 100 ml STK-MED ONCE .ROUTE ; Start 07/20/16 at 12:40; Stop at 13:44; Status DC Heparin Sodium/ Sodium Chloride 1,000 ml @ As Directed STK-MED ONCE .ROUTE ; Start 07/20/16 at 12:41; Stop 07/20/16 at 13:44; Status DC Lidocaine HCl 20 ml STK-MED ONCE .ROUTE ; Start 07/20/16 at 12:41; Stop 07/20/16 at 13:44; Status DC Fentanyl Citrate (Fentanyl 2ml Vial) 100 mcg STK-MED ONCE .ROUTE ; Start at 13:42; Stop 07/20/16 at 13:45; Status DC Midazolam HCl (Versed) 2 mg STK-MED ONCE .ROUTE ; Start 07/20/16 at 13:42; Stop 07/20/16 at 13:45; Status DC Heparin Sodium/ Sodium Chloride 1,000 unit 1X ONCE IART Last administered on 14:29; Start 07/20/16 at 14:00; Stop 07/20/16 at 14:01; Status DC Heparin Sodium/ Sodium Chloride 1,000 unit 1X ONCE IART Last administered on 14:29; Start 07/20/16 at 14:00; Stop 07/20/16 at 14:01; Status DC Midazolam HCl (Versed) 2 mg 1X ONCE IV Last administered on 07/20/16 14:28; Start 07/20/16 at 14:00; Stop 07/20/16 at 14:01; Status DC Fentanyl Citrate (Fentanyl 2ml Vial) 100 mcg 1X ONCE IV Last administered on 14:28; Start 07/20/16 at 14:00; Stop 07/20/16 at 14:01; Status DC Iohexol (Omnipaque 300 Mg/ml) 100 ml 1X ONCE IART Last administered on 14:29; Start 07/20/16 at 14:00; Stop 07/20/16 at 14:01; Status DC Lidocaine HCl 20 ml 1X ONCE IJ Last administered on 07/20/16 14:29; Start 07/20 at 14:00; Stop 07/20/16 at 14:01; Status DC Midazolam HCl (Versed) 2 mg STK-MED ONCE .ROUTE ; Start 07/20/16 at 14:15; Stop 07/20/16 at 14:16; Status DC Sodium Chloride 3 ml 3 ml QSHIFT PRN IV AFTER MEDS AND BLOOD DRAWS; Start at 14:45; Stop 07/29/16 at 13:51; Status DC Sodium Chloride (Iv Sodium Chloride 0.9% 1000ml Bag) 1,000 ml @ 60 mls/hr [id number] IV Last administered on 07/20/16 14:44; Start 07/20/16 at 14:44; Stop at 00:43; Status DC Metoprolol Tartrate (Lopressor) 12.5 mg BID PO ; Start 07/20/16 at 21:00; Stop at 21:00; Status DC Lisinopril (Prinivil) 5 mg DAILY PO Last administered on 07/20/16 16:25; Start 07/20/16 at 15:00; Stop 07/20/16 at 17:21; Status DC Atorvastatin Calcium (Lipitor) 20 mg QHS PO Last administered on 07/20/16 20:33 ; Start 07/20/16 at 21:00; Stop 07/21/16 at 08:11; Status DC Nitroglycerin (Nitrostat) 0.4 mg PRN Q5MIN PRN SL CHEST PAIN Last administered on 07/25/16 04:55; Start 07/20/16 at 14:45; Stop 07/26/16 at 11:41; Status DC Hydralazine HCl (Apresoline) 10 mg PRN Q4HRS PRN IVP ELEVATED BP, SEE COMMENTS Last administered on 07/31/16 10:58; Start 07/20/16 at 17:15; Stop 07/31/16 at 13:31; Status DC Metoprolol Tartrate (Lopressor) 50 mg BID PO Last administered on 07/22/16 08: 31; Start 07/20/16 at 21:00; Stop 07/22/16 at 19:03; Status DC Alprazolam (Xanax) 0.25 mg PRN Q8HRS PRN PO ANXIETY / AGITATION Last administered on 07/24/16 21:34; Start 07/20/16 at 17:30; Stop 07/29/16 at 13:38; Status DC Heparin Sodium (Porcine) 2050 unit 2,050 unit PRN Q6HRS PRN IV FOR UFH LEVEL LESS THAN 0.2 Last administered on 07/21/16 04:24; Start 07/20/16 at 19:45; Stop 07/26/16 at 08:55; Status DC Heparin Sodium/ Dextrose 500 ml @ 19.4 mls/hr CONT PRN IV SEE I/O RECORD; Start 07/20/16 at 19:45; Stop 07/21/16 at 16:24; Status DC Heparin Sodium (Porcine) (Heparin Sodium) 2,050 unit PRN Q6HRS PRN IV FOR UFH LEVEL LESS THAN 0.2; Start 07/20/16 at 19:45; Status UNV Atorvastatin Calcium (Lipitor) 40 mg QHS PO Last administered on 07/31/16 21: 21; Start 07/21/16 at 21:00 Iodixanol (Visipaque 320) 200 ml STK-MED ONCE .ROUTE ; Start 07/20/16 at 14:00; Stop 07/21/16 at 08:26; Status DC Zolpidem Tartrate (Ambien) 5 mg PRN QHS PRN PO INSOMNIA, MAY REPEAT IN 1HR; Start 07/21/16 at 15:30; Stop 07/29/16 at 13:38; Status DC Metoprolol Tartrate 25 mg 25 mg 1X ONCE PO ; Start 07/22/16 at 06:00; Stop at 06:02; Status DC Cefazolin Sodium/ Dextrose 50 ml @ 100 mls/hr 1X ONCE IV ; Start 07/22/16 at 06 :00; Stop 07/22/16 at 06:29; Status DC Heparin Sodium/ Dextrose 500 ml @ 0 mls/hr CONT PRN IV SEE I/O RECORD Last administered on 07/24/16 01:40; Start 07/21/16 at 16:30; Stop 07/26/16 at 08:55; Status DC Lidocaine HCl 2 ml 2 ml 1X PRN PRN ID IV START; Start 07/25/16 at 06:00; Stop 07/26/16 at 05:59; Status Cancel Lactated Ringer's (Iv Lactated Ringers) 1,000 ml @ 0 mls/hr Q0M IV Last administered on 07/25/16 07:30; Start 07/25/16 at 06:00; Stop 07/25/16 at 17:59 ; Status DC Fentanyl Citrate (Fentanyl 2ml Vial) 25 mcg PRN Q5MIN PRN IV Acute Pain; Start 07/22/16 at 09:15; Stop 07/23/16 at 09:14; Status DC Morphine Sulfate 2 mg PRN Q10MIN PRN IV Mild Pain; Start 07/22/16 at 09:15; Stop 07/23/16 at 09:14; Status DC Hydromorphone HCl (Dilaudid) 0.4 mg PRN Q10MIN PRN IV Moderate to severe pain; Start 07/22/16 at 09:15; Stop 07/23/16 at 09:14; Status DC Ondansetron HCl (Zofran) 4 mg PRN Q6HRS PRN IV Nausea, 1st Choice; Start at 09:15; Stop 07/23/16 at 09:14; Status DC Prochlorperazine Edisylate (Compazine) 5 mg PRN Q6HRS PRN IV Nausea/Vomiting, 2nd Choice; Start 07/22/16 at 09:15; Stop 07/23/16 at 09:14; Status DC Ondansetron HCl (Zofran) 4 mg PRN Q6HRS PRN IV NAUSEA/VOMITING; Start 07/25/16 at 07:00; Stop 07/26/16 at 06:59; Status DC Fentanyl Citrate (Fentanyl 2ml Vial) 25 mcg PRN Q5MIN PRN IV MILD PAIN; Start 07/25/16 at 07:00; Stop 07/26/16 at 06:59; Status DC Fentanyl Citrate (Fentanyl 2ml Vial) 50 mcg PRN Q5MIN PRN IV MODERATE PAIN; Start 07/25/16 at 07:00; Stop 07/26/16 at 06:59; Status DC Morphine Sulfate 1 mg 1 mg PRN Q10MIN PRN IV SEVERE PAIN; Start 07/25/16 at 07: 00; Stop 07/25/16 at 20:28; Status DC Lactated Ringer's (Iv Lactated Ringers) 1,000 ml @ 0 mls/hr Q0M IV ; Start 01/31 at 07:00; Stop 07/25/16 at 18:59; Status Cancel Lidocaine HCl 2 ml PRN 1X PRN ID PRIOR TO IV START Last administered on t 07:16; Start 07/25/16 at 07:00; Stop 07/26/16 at 06:59; Status DC Hydromorphone HCl (Dilaudid) 0.5 mg PRN Q10MIN PRN IV SEV PAIN, Second choice; Start 07/25/16 at 07:00; Stop 07/26/16 at 06:59; Status DC Prochlorperazine Edisylate 5 mg 5 mg PACU PRN PRN IV NAUSEA, MRX1; Start at 07:00; Stop 07/26/16 at 06:59; Status DC Cefazolin Sodium/ Dextrose (Ancef 2gm Premix) 50 ml @ 100 mls/hr 1X ONCE IV Last administered on 07/25/16 08:12; Start 07/25/16 at 06:00; Stop 07/25/16 at 06:29; Status DC Metoprolol Tartrate (Lopressor) 25 mg 1X ONCE PO ; Start 07/25/16 at 06:00; Stop 07/25/16 at 06:00; Status DC Metoprolol Tartrate (Lopressor) 2.5 mg 1X ONCE IVP Last administered on 16:30; Start 07/22/16 at 16:30; Stop 07/22/16 at 16:31; Status DC Digoxin (Lanoxin) 250 mcg 1X ONCE IV ; Start 07/22/16 at 18:30; Stop 07/22/16 at 18:42; Status DC Digoxin (Lanoxin) 500 mcg 1X ONCE IV Last administered on 07/22/16 18:47; Start 07/22/16 at 18:45; Stop 07/22/16 at 18:46; Status DC Metoprolol Tartrate (Lopressor) 75 mg BID PO Last administered on 07/24/16 21: 30; Start 07/22/16 at 21:00; Stop 07/25/16 at 13:12; Status DC Nitroglycerin 0.4 mg 0.4 mg PRN Q5MIN PRN SL CHEST PAIN; Start 07/23/16 at 12:00 ; Status UNV Heparin Sodium (Porcine) 40959 unit/Lactated Ringer's 1,020 ml @ 1,020 mls/hr 1X PERIOP ONCE IRR Last administered on 07/25/16 08:46; Start 07/25/16 at 06: 00; Stop 07/25/16 at 06:59; Status DC Potassium Chloride 70 meq/ Sodium Bicarbonate 12.5 meq/Lidocaine HCl 24 ml/ Parenteral Electrolytes 571.5 ml @ 571.5 mls/ hr 1X PERIOP ONCE IRR ; Start at 06:00; Stop 07/25/16 at 06:59; Status DC Potassium Chloride/Sodium Bicarbonate/ Parenteral Electrolytes (Isolyte S) 520 ml @ 520 mls/hr 1X PERIOP ONCE IRR ; Start 07/25/16 at 06:00; Stop 07/25/16 at 06:59; Status DC Etomidate (Amidate) 20 mg STK-MED ONCE IV ; Start 07/25/16 at 06:08; Stop at 06:09; Status DC Phenylephrine HCl (-Synephrine Inj) 10 mg STK-MED ONCE .ROUTE ; Start at 06:08; Stop 07/25/16 at 06:09; Status DC Aminocaproic Acid (Amicar) 5,000 mg STK-MED ONCE IV ; Start 07/25/16 at 06:08; Stop 07/25/16 at 06:09; Status DC Heparin Sodium (Porcine) (Heparin Sodium) 10,000 unit STK-MED ONCE .ROUTE ; Start 07/25/16 at 06:10; Stop 07/25/16 at 06:11; Status DC Rocuronium Harts (Zemuron) 100 mg STK-MED ONCE .ROUTE ; Start 07/25/16 at 06: 11; Stop 07/25/16 at 06:12; Status DC Morphine Sulfate 4 mg STK-MED ONCE .ROUTE ; Start 07/25/16 at 06:59; Stop at 07:00; Status DC Morphine Sulfate 4 mg 4 mg 1X ONCE IV ; Start 07/25/16 at 07:15; Stop 07/25/16 at 07:16; Status DC Cefazolin Sodium/ Sodium Chloride (Ancef/Iv Sodium Chloride 0.9% 500ml Bag) 500 ml @ 500 mls/hr 1X PERIOP ONCE IRR Last administered on 07/25/16 08:46; Start 07/25/16 at 07:15; Stop 07/25/16 at 08:14; Status DC Cellulose 1 each STK-MED ONCE .ROUTE Last administered on 07/25/16 08:46; Start 07/25/16 at 07:07; Stop 07/25/16 at 07:08; Status DC Vancomycin HCl (Vanco) 10 gm STK-MED ONCE .ROUTE Last administered on 08:46; Start 07/25/16 at 07:07; Stop 07/25/16 at 07:08; Status DC Papaverine HCl 60 mg STK-MED ONCE .ROUTE Last administered on 07/25/16 08:46; Start 07/25/16 at 07:07; Stop 07/25/16 at 07:08; Status DC Aspirin (Aspirin) 300 mg STK-MED ONCE .ROUTE Last administered on 07/25/16 17: 25; Start 07/25/16 at 07:08; Stop 07/25/16 at 07:09; Status DC Sodium Chloride (Sodium Chloride) 50 ml STK-MED ONCE IJ Last administered on 08:46; Start 07/25/16 at 07:08; Stop 07/25/16 at 07:09; Status DC Midazolam HCl (Versed) 2 mg STK-MED ONCE .ROUTE ; Start 07/25/16 at 07:15; Stop 07/25/16 at 07:16; Status DC Ephedrine Sulfate 50 mg 50 mg STK-MED ONCE IV ; Start 07/25/16 at 07:16; Stop at 07:17; Status DC Nitroglycerin/ Dextrose (Nitroglycerin Drip) 250 ml @ As Directed STK-MED ONCE IV ; Start 07/25/16 at 07:16; Stop 07/25/16 at 07:17; Status DC Midazolam HCl (Versed) 2 mg STK-MED ONCE .ROUTE ; Start 07/25/16 at 07:18; Stop 07/25/16 at 07:19; Status DC Fentanyl Citrate (Fentanyl 2ml Vial) 100 mcg STK-MED ONCE .ROUTE ; Start at 07:19; Stop 07/25/16 at 07:20; Status DC Sufentanil Citrate (Sufenta) 100 mcg STK-MED ONCE .ROUTE ; Start 07/25/16 at 07: 19; Stop 07/25/16 at 07:20; Status DC Midazolam HCl (Versed) 2 mg 1X ONCE IV ; Start 07/25/16 at 08:00; Stop at 08:01; Status DC Dexamethasone Sodium Phosphate (Decadron) 20 mg STK-MED ONCE .ROUTE ; Start 01/31 at 07:58; Stop 07/25/16 at 07:59; Status DC Rocuronium Harts (Zemuron) 100 mg STK-MED ONCE .ROUTE ; Start 07/25/16 at 08: 52; Stop 07/25/16 at 08:53; Status DC Sufentanil Citrate (Sufenta) 100 mcg STK-MED ONCE .ROUTE ; Start 07/25/16 at 08: 53; Stop 07/25/16 at 08:54; Status DC Protamine Sulfate 250 mg STK-MED ONCE IV ; Start 07/25/16 at 10:43; Stop at 10:44; Status DC Rocuronium Harts 100 mg 100 mg STK-MED ONCE .ROUTE ; Start 07/25/16 at 10:52; Stop 07/25/16 at 10:53; Status DC Albumin Human 0 ml @ As Directed STK-MED ONCE IV ; Start 07/25/16 at 10:53; Stop 07/25/16 at 10:54; Status DC Amiodarone HCl/ Dextrose (Cordarone) 518 ml @ 34.53 mls/ hr 1X ONCE IV Last administered on 07/25/16t 18:52; Start 07/25/16 at 11:30; Stop 07/26/16 at 02:30 ; Status DC Sodium Bicarbonate 50 meq STK-MED ONCE .ROUTE ; Start 07/25/16 at 11:35; Stop at 11:36; Status DC Protamine Sulfate 50 mg STK-MED ONCE IV ; Start 07/25/16 at 12:31; Stop at 12:32; Status DC Amiodarone HCl (Cordarone) 150 mg STK-MED ONCE .ROUTE ; Start 07/25/16 at 12:37 ; Stop 07/25/16 at 12:38; Status DC Isoflurane (Isoflurane) 90 ml STK-MED ONCE IH ; Start 07/25/16 at 12:42; Stop at 12:43; Status DC Lidocaine HCl (Lidocaine HCl 2% Abboject) 100 mg STK-MED ONCE .ROUTE ; Start 01/31 at 13:07; Stop 07/25/16 at 13:08; Status DC Mannitol (Mannitol) 12.5 g STK-MED ONCE .ROUTE ; Start 07/25/16 at 13:07; Stop 07/25/16 at 13:08; Status DC Calcium Chloride 1,000 mg STK-MED ONCE IV ; Start 07/25/16 at 13:07; Stop at 13:08; Status DC Sodium Bicarbonate 50 meq 50 meq STK-MED ONCE .ROUTE ; Start 07/25/16 at 13:07; Stop 07/25/16 at 13:08; Status DC Albumin Human (Albuminar) 100 ml @ As Directed STK-MED ONCE IV ; Start at 13:07; Stop 07/25/16 at 13:08; Status DC Magnesium Sulfate 5 gm STK-MED ONCE .ROUTE ; Start 07/25/16 at 13:08; Stop 07/25 at 13:09; Status DC Heparin Sodium (Porcine) 95004 unit 30,000 unit STK-MED ONCE .ROUTE ; Start 01/31 at 13:08; Stop 07/25/16 at 13:09; Status DC Clevidipine (Cleviprex) 100 ml @ 0 mls/hr CONT PRN IV PER PROTOCOL; Start 07/25 at 13:45; Stop 07/26/16 at 11:29; Status DC Heparin Sodium (Porcine) 44873 unit 30,000 unit STK-MED ONCE .ROUTE ; Start 01/31 at 13:39; Stop 07/25/16 at 13:40; Status DC Epinephrine HCl/ Sodium Chloride (Adrenalin/Iv Sodium Chloride 0.9% 250ml) 254 ml @ 3.81 mls/hr CONT PRN IV SEE I/O RECORD; Start 07/25/16 at 13:45 Epinephrine HCl (Epinephrine Syringe) 1 mg STK-MED ONCE .ROUTE ; Start 07/25/16 at 13:52; Stop 07/25/16 at 13:53; Status DC Rocuronium Harts (Zemuron) 100 mg STK-MED ONCE .ROUTE ; Start 07/25/16 at 13: 57; Stop 07/25/16 at 13:58; Status DC Sodium Bicarbonate 50 meq 50 meq STK-MED ONCE .ROUTE ; Start 07/25/16 at 14:04; Stop 07/25/16 at 14:05; Status DC Procainamide HCl/ Dextrose (Pronestyl) 520 ml @ 15.6 mls/hr CONT PRN IV SEE I/ O RECORD; Start 07/25/16 at 14:30; Stop 07/28/16 at 15:22; Status DC Sodium Bicarbonate 50 meq STK-MED ONCE .ROUTE ; Start 07/25/16 at 14:31; Stop at 14:32; Status DC Sodium Bicarbonate 50 meq STK-MED ONCE .ROUTE ; Start 07/25/16 at 14:31; Stop at 14:32; Status DC Protamine Sulfate 50 mg STK-MED ONCE IV ; Start 07/25/16 at 15:13; Stop at 15:14; Status DC Protamine Sulfate 50 mg STK-MED ONCE IV ; Start 07/25/16 at 15:13; Stop at 15:14; Status DC Isoflurane 90 ml 90 ml STK-MED ONCE IH ; Start 07/25/16 at 15:13; Stop 07/25/16 at 15:14; Status DC Dobutamine HCl/ Dextrose 250 ml @ As Directed STK-MED ONCE IV ; Start 07/25/16 at 15:17; Stop 07/25/16 at 15:18; Status DC Iohexol 100 ml 100 ml STK-MED ONCE .ROUTE Last administered on 07/25/16t 15:39 ; Start 07/25/16 at 15:28; Stop 07/25/16 at 15:29; Status DC Norepinephrine Bitartrate 8 mg/ Sodium Chloride 258 ml @ 1.93 mls/hr 1X ONCE IV Last administered on 07/25/16t 18:53; Start 07/25/16 at 16:00; Stop at 08:04; Status DC Albumin Human (Plasmanate) 1,000 ml @ As Directed STK-MED ONCE IV ; Start 07/25 at 16:11; Stop 07/25/16 at 16:12; Status DC Heparin Sodium (Porcine) (Heparin Sodium) 10,000 unit STK-MED ONCE .ROUTE ; Start 07/25/16 at 16:19; Stop 07/25/16 at 16:20; Status DC Lidocaine HCl (Lidocaine HCl 2% Abboject) 100 mg STK-MED ONCE .ROUTE ; Start 01/31 at 16:19; Stop 07/25/16 at 16:20; Status DC Mannitol (Mannitol) 12.5 g STK-MED ONCE .ROUTE ; Start 07/25/16 at 16:19; Stop 07/25/16 at 16:20; Status DC Calcium Chloride 1,000 mg STK-MED ONCE IV ; Start 07/25/16 at 16:19; Stop at 16:20; Status DC Sodium Bicarbonate 50 meq STK-MED ONCE .ROUTE ; Start 07/25/16 at 16:19; Stop at 16:20; Status DC Magnesium Sulfate 5 gm STK-MED ONCE .ROUTE ; Start 07/25/16 at 16:19; Stop 07/25 at 16:20; Status DC Heparin Sodium (Porcine) (Heparin Sodium) 10,000 unit STK-MED ONCE .ROUTE ; Start 07/25/16 at 16:20; Stop 07/25/16 at 16:21; Status DC Lidocaine HCl (Lidocaine HCl 2% Abboject) 100 mg STK-MED ONCE .ROUTE ; Start 01/31 at 16:20; Stop 07/25/16 at 16:21; Status DC Aminocaproic Acid (Amicar) 5,000 mg STK-MED ONCE IV ; Start 07/25/16 at 16:20; Stop 07/25/16 at 16:21; Status DC Mannitol (Mannitol) 12.5 g STK-MED ONCE .ROUTE ; Start 07/25/16 at 16:20; Stop 07/25/16 at 16:21; Status DC Sodium Bicarbonate 50 meq 50 meq STK-MED ONCE .ROUTE ; Start 07/25/16 at 16:20; Stop 07/25/16 at 16:21; Status DC Albumin Human (Albuminar) 100 ml @ As Directed STK-MED ONCE IV ; Start at 16:20; Stop 07/25/16 at 16:21; Status DC Rocuronium Harts (Zemuron) 50 mg STK-MED ONCE .ROUTE ; Start 07/25/16 at 16:33 ; Stop 07/25/16 at 16:34; Status DC Rocuronium Harts (Zemuron) 50 mg STK-MED ONCE .ROUTE ; Start 07/25/16 at 16:33 ; Stop 07/25/16 at 16:34; Status DC Protamine Sulfate 50 mg STK-MED ONCE IV ; Start 07/25/16 at 16:34; Stop at 16:35; Status DC Sodium Bicarbonate 50 meq STK-MED ONCE .ROUTE ; Start 07/25/16 at 16:36; Stop at 16:37; Status DC Calcium Chloride 1,000 mg STK-MED ONCE IV ; Start 07/25/16 at 16:41; Stop at 16:42; Status DC Epinephrine HCl (Epinephrine Syringe) 1 mg STK-MED ONCE .ROUTE ; Start 07/25/16 at 16:41; Stop 07/25/16 at 16:42; Status DC Sodium Bicarbonate 50 meq STK-MED ONCE .ROUTE ; Start 07/25/16 at 16:52; Stop at 16:53; Status DC Sodium Bicarbonate 50 meq STK-MED ONCE .ROUTE ; Start 07/25/16 at 16:52; Stop at 16:53; Status DC Sodium Bicarbonate 50 meq STK-MED ONCE .ROUTE ; Start 07/25/16 at 16:52; Stop at 16:53; Status DC Vasopressin (Vasostrict) 20 unit STK-MED ONCE .ROUTE ; Start 07/25/16 at 16:54; Stop 07/25/16 at 16:55; Status DC Famotidine (Pepcid) 20 mg STK-MED ONCE .ROUTE ; Start 07/25/16 at 16:56; Stop at 16:57; Status DC Dexamethasone Sodium Phosphate (Decadron) 20 mg STK-MED ONCE .ROUTE ; Start 01/31 at 16:56; Stop 07/25/16 at 16:57; Status DC Diphenhydramine HCl 50 mg 50 mg STK-MED ONCE .ROUTE ; Start 07/25/16 at 16:56; Stop 07/25/16 at 16:57; Status DC Vasopressin/ Dextrose (Vasostrict) 102 ml @ 6 mls/hr CONT PRN IV SEE I/O RECORD Last administered on 07/28/16t 22:48; Start 07/25/16 at 17:15 Sodium Bicarbonate 50 meq STK-MED ONCE .ROUTE ; Start 07/25/16 at 17:24; Stop at 17:25; Status DC Sodium Bicarbonate 50 meq 50 meq STK-MED ONCE .ROUTE ; Start 07/25/16 at 17:24; Stop 07/25/16 at 17:25; Status DC Cefazolin Sodium/ Dextrose (Ancef 2gm Premix) 50 ml @ As Directed STK-MED ONCE IV ; Start 07/25/16 at 17:32; Stop 07/25/16 at 17:33; Status DC Sodium Chloride 3 ml 3 ml PRN Q12HR PRN IV AFTER MEDS AND BLOOD DRAWS; Start at 17:30; Stop 07/29/16 at 13:38; Status DC Lactated Ringer's 1,000 ml @ 15 mls/hr Q24H IV Last administered on 07/29/16 16:45; Start 07/25/16 at 17:30; Stop 07/31/16 at 15:33; Status DC Insulin Human Regular/Sodium Chloride (Novolin R Vial/ Iv Normal Saline 150ml) 151.5 ml @ 0 mls/hr CONT PRN PRN IV SEE I/O RECORD Last administered on 03:03; Start 07/25/16 at 17:30; Stop 07/29/16 at 13:51; Status DC Dextrose 25 gm 25 gm PRN Q15MIN PRN IV LOW BLOOD SUGAR; Start 07/25/16 at 17:30 ; Stop 07/29/16 at 13:51; Status DC Dopamine HCl/ Dextrose 250 ml @ 0 mls/hr CONT PRN PRN IV SEE I/O RECORD; Start 07/25/16 at 17:30; Stop 07/26/16 at 11:41; Status DC Amiodarone HCl/ Dextrose (Cordarone) 518 ml @ 33.33 mls/ hr CONT PRN PRN IV SEE COMMENTS; Start 07/25/16 at 17:30; Status UNV Info 1 ea CONT PRN PRN MC SEE COMMENTS; Start 07/25/16 at 17:30 Info 1 ea 1 ea CONT PRN PRN MC SEE COMMENTS; Start 07/25/16 at 17:30 Magnesium Sulfate/ Dextrose (Magnesium Sulfate PREMIX 1GM) 100 ml @ 100 mls/hr PRN DAILY PRN IV FOR MAG < 2.2 Last administered on 07/27/16 10:59; Start 01/31 at 17:30 Famotidine (Pepcid) 20 mg BID IVP Last administered on 07/31/16 21:10; Start 07/25/16 at 21:00 Metoclopramide HCl (Reglan) 10 mg PRN Q6HRS PRN IV NAUSEA/VOMITING Last administered on 07/29/16 09:54; Start 07/25/16 at 17:30 Morphine Sulfate 2 mg PRN Q1HR PRN IV PAIN Last administered on 07/28/16 14:21 ; Start 07/25/16 at 17:30; Stop 07/29/16 at 13:38; Status DC Acetaminophen (Tylenol) 650 mg PRN Q4HRS PRN PO MILD PAIN / TEMP; Start at 17:30; Stop 07/29/16 at 13:38; Status DC Acetaminophen (Acetaminophen Supp) 650 mg PRN Q4HRS PRN PA MILD PAIN / TEMP; Start 07/25/16 at 17:30 Meperidine HCl 12.5 mg 12.5 mg PRN Q15MIN PRN IV SHIVERING; Start 07/25/16 at 17:30; Stop 07/29/16 at 13:38; Status DC Propofol (Diprivan) 100 ml @ 0 mls/hr CONT PRN PRN IV POSTOP SEDATION UNTIL EXTUBATE; Start 07/25/16 at 17:30; Stop 07/28/16 at 15:22; Status DC Aspirin (Ecotrin) 325 mg DAILYWBKFT PO Last administered on 07/29/16 09:54; Start 07/26/16 at 08:00; Stop 07/29/16 at 09:59; Status DC Aspirin (Aspirin) 300 mg PRN DAILY PRN PA IF UNABLE TO TAKE PO; Start 07/25/16 at 17:30; Stop 07/26/16 at 12:00; Status DC Acetaminophen/ Hydrocodone Bitart (Lortab 5/325) 1 tab PRN Q4HRS PRN PO MILD PAIN; Start 07/25/16 at 17:30 Acetaminophen/ Hydrocodone Bitart 2 tab 2 tab PRN Q4HRS PRN PO MODERATE PAIN, SEVERE PAIN; Start 07/25/16 at 17:30 Cefazolin Sodium/ Dextrose 50 ml @ 100 mls/hr Q8H IV ; Start 07/25/16 at 18:00 ; Stop 07/25/16 at 21:42; Status DC Albumin Human 250 ml @ 62.5 mls/hr 1X ONCE IV Last administered on 07/27/16 17:52; Start 07/25/16 at 17:30; Stop 07/25/16 at 21:29; Status DC Midazolam HCl 100 ml @ As Directed STK-MED ONCE IV ; Start 07/25/16 at 18:06; Stop 07/25/16 at 18:07; Status DC Midazolam HCl 100 ml @ 0 mls/hr CONT PRN IV SEE I/O RECORD Last administered on 07/25/16 18:56; Start 07/25/16 at 18:15; Stop 07/26/16 at 08:59; Status DC Vancomycin HCl 1 gm/Sodium Chloride 250 ml @ 250 mls/hr 1X ONCE IV Last administered on 07/25/16 20:56; Start 07/25/16 at 18:15; Stop 07/25/16 at 19:14 ; Status DC Piperacillin Sod/ Tazobactam Sod/ Sodium Chloride (Zosyn/Iv Sodium Chloride 0.9 % 50ml) 50 ml @ 100 mls/hr Q6HRS IV Last administered on 07/31/16 05:32; Start 07/25/16 at 18:15; Stop 07/31/16 at 10:25; Status DC Midazolam HCl (Versed) 2 mg PRN Q20MIN PRN IV SEDATION; Start 07/25/16 at 18:15 ; Stop 07/25/16 at 18:39; Status DC Midazolam HCl 5 mg 5 mg PRN Q30MIN PRN IV SEDATION; Start 07/25/16 at 18:15; Stop 07/25/16 at 18:39; Status DC Vecuronium Harts 100 mg/ Dextrose 100 ml @ 0 mls/hr 1X ONCE IV Last administered on 07/25/16 19:43; Start 07/25/16 at 18:15; Stop 07/25/16 at 18:17 ; Status DC Midazolam HCl 100 ml @ 0 mls/hr CONT PRN IV SEE I/O RECORD Last administered on 07/28/16 19:40; Start 07/25/16 at 18:45 Dobutamine HCl/ Dextrose 250 ml @ 0 mls/hr CONT PRN IV SEE I/O RECORD Last administered on 07/29/16 03:10; Start 07/25/16 at 18:45; Stop 07/29/16 at 13:38 ; Status DC Potassium Chloride 50 ml @ 50 mls/hr Q1H IV Last administered on 07/25/16 22: 58; Start 07/25/16 at 21:00; Stop 07/25/16 at 23:59; Status DC Cefazolin Sodium/ Dextrose 50 ml @ 100 mls/hr Q8H IV Last administered on 07/27 05:34; Start 07/25/16 at 22:00; Stop 07/27/16 at 06:29; Status DC Heparin Sodium (Porcine) 94085 unit/Dextrose 512.5 ml @ 0 mls/hr Q0M ONCE IV Last administered on 07/25/16 22:21; Start 07/25/16 at 22:15; Stop 07/25/16 at 22:16; Status DC Vecuronium Harts/Dextrose (Norcuron) 100 ml @ 0 mls/hr CONT PRN IV SEE I/O RECORD Last administered on 07/26/16 01:07; Start 07/26/16 at 00:45; Stop 07/29 at 13:38; Status DC Dextrose 25 gm 25 gm 1X ONCE IV Last administered on 07/26/16 01:08; Start at 01:00; Stop 07/26/16 at 01:18; Status DC Amiodarone HCl/ Dextrose (Cordarone) 259 ml @ 17.26 mls/ hr CONT PRN IV SEE I/ O RECORD Last administered on 07/30/16 13:02; Start 07/26/16 at 06:45; Stop at 15:33; Status DC Cefazolin Sodium/ Dextrose 2 gm 2 gm STK-MED ONCE IV ; Start 07/25/16 at 11:00; Stop 07/26/16 at 08:53; Status DC Lactated Ringer's 500 ml @ 5,000 mls/hr PRN Q10MIN PRN IV CVP <14; Start 07/26 at 10:00; Stop 07/29/16 at 13:38; Status DC Fentanyl Citrate (Fentanyl 600 Mcg/30 ml CHEMICAL MACHINE TENDER) 30 ml @ 0 mls/hr CONT PRN IV PROTOCOL Last administered on 07/31/16 09:12; Start 07/26/16 at 10:00; Stop at 13:31; Status DC Fentanyl Citrate (Fentanyl 2ml Vial) 25 mcg PRN Q1HR PRN IV COMM; Start at 10:00; Stop 07/29/16 at 13:38; Status DC Fentanyl Citrate (Fentanyl 2ml Vial) 50 mcg PRN Q1HR PRN IV COMM; Start at 10:00; Stop 07/29/16 at 13:38; Status DC Chlorhexidine Gluconate (Peridex) 15 ml BID MM Last administered on 07/31/16 21:12; Start 07/26/16 at 10:30 Sulfur Hexafluoride Microspheres (Lumason) 25 mg STK-MED ONCE IVP ; Start at 11:29; Stop 07/26/16 at 11:30; Status DC Aspirin 300 mg 300 mg DAILY PA Last administered on 07/28/16 07:55; Start 03/03 at 12:00; Stop 07/29/16 at 19:10; Status DC Potassium Chloride (KCl Premix 20meq) 50 ml @ 50 mls/hr 1X ONCE IV Last administered on 07/26/16 12:55; Start 07/26/16 at 12:00; Stop 07/26/16 at 12:59 ; Status DC Sulfur Hexafluoride Microspheres (Lumason) 25 mg 1X ONCE IVP Last administered on 07/26/16 11:45; Start 07/26/16 at 11:45; Stop 07/26/16 at 11:50 ; Status DC Multi-Ingred Cream/Lotion/Oil/ Oint (Artificial Tears Eye Oint) 1 adri BID OU Last administered on 08/01/16 08:44; Start 07/26/16 at 21:00 Ondansetron HCl (Zofran) 4 mg PRN Q6HRS PRN IV NAUSEA/VOMITING; Start 07/27/16 at 07:00; Stop 07/28/16 at 06:59; Status DC Fentanyl Citrate (Fentanyl 2ml Vial) 25 mcg PRN Q5MIN PRN IV MILD PAIN; Start 07/27/16 at 07:00; Stop 07/28/16 at 06:59; Status DC Fentanyl Citrate (Fentanyl 2ml Vial) 50 mcg PRN Q5MIN PRN IV MODERATE PAIN; Start 07/27/16 at 07:00; Stop 07/28/16 at 06:59; Status DC Morphine Sulfate 1 mg 1 mg PRN Q10MIN PRN IV SEVERE PAIN; Start 07/27/16 at 07: 00; Stop 07/28/16 at 06:59; Status DC Lactated Ringer's (Iv Lactated Ringers) 1,000 ml @ 30 mls/hr Q24H IV Last administered on 07/26/16 17:25; Start 07/27/16 at 07:00; Stop 07/27/16 at 18:59 ; Status DC Lidocaine HCl 2 ml PRN 1X PRN ID PRIOR TO IV START; Start 07/27/16 at 07:00; Stop 07/28/16 at 06:59; Status DC Hydromorphone HCl (Dilaudid) 0.5 mg PRN Q10MIN PRN IV SEV PAIN, Second choice; Start 07/27/16 at 07:00; Stop 07/28/16 at 06:59; Status DC Prochlorperazine Edisylate 5 mg 5 mg PACU PRN PRN IV NAUSEA, MRX1; Start at 07:00; Stop 07/28/16 at 06:59; Status DC Heparin Sodium (Porcine) 00013 unit/Dextrose 512.5 ml @ 0 mls/hr Q0M ONCE IV Last administered on 07/26/16 19:40; Start 07/26/16 at 18:30; Stop 07/26/16 at 18:31; Status DC Amiodarone HCl 150 mg/Dextrose 103 ml @ 618 mls/hr 1X ONCE IV Last administered on 07/26/16 19:25; Start 07/26/16 at 19:15; Stop 07/26/16 at 19:24 ; Status DC Norepinephrine Bitartrate 8 mg/ Sodium Chloride 258 ml @ 1.93 mls/hr CONT PRN IV SEE I/O RECORD Last administered on 07/28/16 04:46; Start 07/26/16 at 19:15 Amiodarone HCl 900 mg/Dextrose 518 ml @ 0 mls/hr CONT PRN IV PER PROTOCOL; Start 07/26/16 at 19:15; Stop 07/27/16 at 12:11; Status DC Milrinone Lactate/ Dextrose 100 ml @ 0 mls/hr CONT PRN IV SEE I/O RECORD Last administered on 07/26/16 20:03; Start 07/26/16 at 19:45; Stop 07/29/16 at 13:51 ; Status DC Calcium Chloride/ Sodium Chloride (Iv Sodium Chloride 0.9% 100ml) 120 ml @ 240 mls/hr 1X ONCE IV Last administered on 07/26/16 21:04; Start 07/26/16 at 21: 30; Stop 07/26/16 at 21:59; Status DC Digoxin 500 mcg 500 mcg 1X ONCE IV Last administered on 07/26/16 21:55; Start 07/26/16 at 21:45; Stop 07/26/16 at 21:46; Status DC Cefazolin Sodium/ Sodium Chloride (Ancef/Iv Sodium Chloride 0.9% 500ml Bag) 500 ml @ 500 mls/hr 1X PERIOP ONCE IRR Last administered on 07/27/16 14:37; Start 07/27/16 at 10:00; Stop 07/27/16 at 10:59; Status DC Vancomycin HCl (Vanco) 10 gm 1X ONCE CEMENT Last administered on 07/27/16 14: 37; Start 07/27/16 at 12:30; Stop 07/27/16 at 12:31; Status DC Rocuronium Harts (Zemuron) 100 mg STK-MED ONCE .ROUTE ; Start 07/27/16 at 12: 32; Stop 07/27/16 at 12:33; Status DC Lorazepam (Ativan) 2 mg STK-MED ONCE .ROUTE ; Start 07/27/16 at 14:13; Stop 04/02 at 14:14; Status DC Phenylephrine HCl 1 mg 1 mg STK-MED ONCE IV ; Start 07/27/16 at 14:18; Stop 04/02 at 14:19; Status DC Albumin Human (Plasmanate) 250 ml @ 62.5 mls/hr 1X ONCE IV Last administered on 07/27/16 17:52; Start 07/27/16 at 17:15; Stop 07/27/16 at 21:14; Status DC Sodium Bicarbonate 50 meq STK-MED ONCE .ROUTE ; Start 07/27/16 at 17:39; Stop at 17:40; Status DC Sodium Bicarbonate 50 meq 1X ONCE IV Last administered on 07/27/16 17:51; Start 07/27/16 at 18:00; Stop 07/27/16 at 18:01; Status DC Sodium Bicarbonate 50 meq 1X ONCE IV Last administered on 07/27/16 17:52; Start 07/27/16 at 18:00; Stop 07/27/16 at 18:01; Status DC Fentanyl Citrate (Fentanyl 2ml Vial) 25 mcg PRN Q5MIN PRN IV MILD PAIN; Start 07/28/16 at 07:00; Stop 07/29/16 at 06:59; Status DC Fentanyl Citrate (Fentanyl 2ml Vial) 50 mcg PRN Q5MIN PRN IV MODERATE PAIN; Start 07/28/16 at 07:00; Stop 07/29/16 at 06:59; Status DC Morphine Sulfate 1 mg 1 mg PRN Q10MIN PRN IV SEVERE PAIN; Start 07/28/16 at 07: 00; Stop 07/29/16 at 06:59; Status DC Lactated Ringer's (Iv Lactated Ringers) 1,000 ml @ 30 mls/hr Q24H IV Last administered on 07/28/16 06:49; Start 07/28/16 at 06:49; Stop 07/28/16 at 18:48 ; Status DC Lidocaine HCl 2 ml PRN 1X PRN ID PRIOR TO IV START; Start 07/28/16 at 07:00; Stop 07/29/16 at 06:59; Status DC Hydromorphone HCl (Dilaudid) 0.5 mg PRN Q10MIN PRN IV SEV PAIN, Second choice; Start 07/28/16 at 07:00; Stop 07/29/16 at 06:59; Status DC Rocuronium Harts 50 mg 50 mg STK-MED ONCE .ROUTE ; Start 07/28/16 at 07:27; Stop 07/28/16 at 07:28; Status DC Cefazolin Sodium/ Sodium Chloride (Ancef/Iv Sodium Chloride 0.9% 500ml Bag) 500 ml @ 500 mls/hr 1X PERIOP ONCE IRR Last administered on 07/28/16 09:25; Start 07/28/16 at 08:00; Stop 07/28/16 at 08:59; Status DC Cellulose 1 each STK-MED ONCE .ROUTE ; Start 07/28/16 at 07:42; Stop 07/28/16 at 07:43; Status DC Bupivacaine HCl/ Epinephrine Bitart 50 ml 50 ml STK-MED ONCE .ROUTE ; Start at 07:42; Stop 07/28/16 at 07:43; Status DC Heparin Sodium (Porcine)/Sodium Chloride (Heparin Sodium/ Iv Sodium Chloride 0.9 % 500ml Bag) 505 ml @ 505 mls/hr 1X PERIOP ONCE IRR Last administered on 07/28t 10:19; Start 07/28/16 at 08:15; Stop 07/28/16 at 09:14; Status DC Lorazepam 2 mg 2 mg STK-MED ONCE .ROUTE ; Start 07/28/16 at 08:29; Stop at 08:30; Status DC Magnesium Sulfate/ Dextrose (Magnesium Sulfate PREMIX 1GM) 100 ml @ 100 mls/hr 1X ONCE IV Last administered on 07/28/16 13:09; Start 07/28/16 at 09:00; Stop 07/28/16 at 09:59; Status DC Vasopressin (Vasostrict) 20 unit STK-MED ONCE .ROUTE ; Start 07/28/16 at 09:03; Stop 07/28/16 at 09:04; Status DC Epinephrine HCl (Epinephrine Syringe) 1 mg STK-MED ONCE .ROUTE ; Start 07/28/16 at 09:09; Stop 07/28/16 at 09:10; Status DC Calcium Chloride 1,000 mg STK-MED ONCE IV ; Start 07/28/16 at 09:09; Stop at 09:10; Status DC Phenylephrine HCl 1 mg STK-MED ONCE IV ; Start 07/28/16 at 09:54; Stop 07/28/16 at 09:55; Status DC Sevoflurane 60 ml 60 ml STK-MED ONCE IH ; Start 07/28/16 at 09:54; Stop at 09:55; Status DC Epinephrine HCl/ Sodium Chloride (Adrenalin/Iv Sodium Chloride 0.9% 250ml) 254 ml @ 3.81 mls/hr 1X ONCE IV ; Start 07/28/16 at 10:00; Stop 07/29/16 at 19:10 ; Status DC Heparin Sodium (Porcine) 98348 unit 10,000 unit STK-MED ONCE .ROUTE ; Start at 09:57; Stop 07/28/16 at 09:58; Status DC Albumin Human (Plasmanate) 500 ml @ As Directed STK-MED ONCE IV ; Start at 09:57; Stop 07/28/16 at 09:58; Status DC Iohexol 100 ml 100 ml STK-MED ONCE .ROUTE ; Start 07/28/16 at 10:39; Stop at 10:40; Status DC Heparin Sodium/ Sodium Chloride 500 ml @ As Directed STK-MED ONCE .ROUTE ; Start 07/28/16 at 10:39; Stop 07/28/16 at 10:40; Status DC Iohexol 100 ml 100 ml STK-MED ONCE .ROUTE ; Start 07/28/16 at 10:43; Stop at 10:44; Status DC Heparin Sodium/ Sodium Chloride 500 ml @ As Directed STK-MED ONCE .ROUTE ; Start 07/28/16 at 11:21; Stop 07/28/16 at 11:22; Status DC Albuterol Sulfate (Ventolin Neb Soln) 2.5 mg RTQID NEB Last administered on 08:46; Start 07/28/16 at 12:00; Stop 07/30/16 at 17:05; Status DC Furosemide (Lasix) 40 mg 1X ONCE IVP Last administered on 07/28/16 13:16; Start 07/28/16 at 13:15; Stop 07/28/16 at 13:16; Status DC Furosemide (Lasix) 40 mg 1X ONCE IVP Last administered on 07/28/16 13:19; Start 07/28/16 at 14:00; Stop 07/28/16 at 14:01; Status DC Heparin Sodium/ Sodium Chloride 1000 unit 1,000 unit CONT PRN IV ART LINE FLUSH Last administered on 07/30/16 19:50; Start 07/28/16 at 14:45 Albumin Human 250 ml @ 62.5 mls/hr PRN Q1HR PRN IV SEE COMMENTS Last administered on 07/28/16 20:16; Start 07/28/16 at 15:15 Furosemide 100 mg/ Sodium Chloride 100 ml @ 5 mls/hr CONT PRN IV SEE I/O RECORD Last administered on 07/30/16 09:50; Start 07/28/16 at 15:30; Stop 07/31 at 13:31; Status DC Potassium Chloride 50 ml @ 50 mls/hr Q1H IV Last administered on 07/28/16 19: 39; Start 07/28/16 at 18:30; Stop 07/28/16 at 20:29; Status DC Potassium Chloride (KCl Premix 20meq) 50 ml @ 50 mls/hr Q1H IV Last administered on 07/29/16 09:36; Start 07/29/16 at 07:00; Stop 07/29/16 at 08:59 ; Status DC Lorazepam (Ativan) 2 mg STK-MED ONCE .ROUTE ; Start 07/28/16 at 08:30; Stop at 08:16; Status DC Aspirin (Arti Aspirin) 325 mg [id number] PO Last administered on 08/01/16 08: 00; Start 07/30/16 at 08:00 Docusate Sodium 100 mg 100 mg DAILY PO Last administered on 07/31/16 07:59; Start 07/30/16 at 09:00; Stop 07/31/16 at 11:00; Status DC Dobutamine HCl/ Dextrose 250 ml @ 12.1 mls/hr CONT PRN IV PER PROTOCOL Last administered on 07/31/16 19:57; Start 07/29/16 at 13:30 Potassium Chloride 50 ml @ 50 mls/hr Q1H IV Last administered on 07/29/16 22: 39; Start 07/29/16 at 20:00; Stop 07/29/16 at 22:59; Status DC Potassium Chloride (KCl Premix 20meq) 50 ml @ 50 mls/hr Q1H IV Last administered on 07/30/16 09:19; Start 07/30/16 at 07:00; Stop 07/30/16 at 08:59 ; Status DC Ipratropium Harts (Atrovent) 0.5 mg RTQID NEB Last administered on 08/01/16 09:04; Start 07/30/16 at 12:30 Digoxin 500 mcg 500 mcg 1X ONCE IV Last administered on 07/30/16 13:01; Start 07/30/16 at 12:15; Stop 07/30/16 at 12:19; Status DC Dexmedetomidine HCl/Sodium Chloride (Precedex/Iv Sodium Chloride 0.9% 50ml) 50 ml @ 0 mls/hr CONT PRN IV PER PROTOCOL Last administered on 07/30/16 15:00; Start 07/30/16 at 13:30 Atropine Sulfate 0.5 mg PRN Q5MIN PRN IV SEE COMMENTS; Start 07/30/16 at 13:30 Amiodarone HCl (Cordarone) 400 mg ONCE ONCE PO Last administered on 07/30/16 15:01; Start 07/30/16 at 13:30; Stop 07/30/16 at 13:46; Status DC Amiodarone HCl (Cordarone) 400 mg BID PO Last administered on 08/01/16 08:42; Start 07/30/16 at 21:00 Digoxin 125 mcg 125 mcg DAILY IV Last administered on 08/01/16 09:00; Start at 09:00 Albumin Human (Albuminar) 50 ml @ 50 mls/hr 1X ONCE IV Last administered on 16:26; Start 07/30/16 at 16:30; Stop 07/30/16 at 17:29; Status DC Ibuprofen (Motrin) 200 mg PRN Q6HRS PRN PO fever; Start 07/30/16 at 19:45 Metoprolol Tartrate (Lopressor) 2.5 mg 1X ONCE IVP Last administered on 20:23; Start 07/30/16 at 20:30; Stop 07/30/16 at 20:31; Status DC Metoprolol Tartrate 5 mg 5 mg PRN Q2HR PRN IVP HYPERTENSION Last administered on 07/31/16 08:04; Start 07/30/16 at 22:30 Potassium Chloride (KCl Premix 20meq) 50 ml @ 50 mls/hr Q1H IV Last administered on 07/31/16 09:04; Start 07/31/16 at 07:00; Stop 07/31/16 at 08:59 ; Status DC Metoprolol Tartrate (Lopressor) 12.5 mg BID NG Last administered on 08/01/16 08:44; Start 07/31/16 at 10:00 Docusate Sodium (Colace Solution) 100 mg PRN DAILY PRN PO constipation Last administered on 08/01/16 08:40; Start 07/31/16 at 11:00 Hydralazine HCl (Apresoline) 10 mg PRN Q2HRS PRN IVP ELEVATED BP, SEE COMMENTS ; Start 07/31/16 at 13:30 Fentanyl Citrate (Fentanyl 2ml Vial) 50 mcg PRN Q2HR PRN IV PAIN Last administered on 07/31/16 18:03; Start 07/31/16 at 13:45 Furosemide (Lasix) 40 mg TID IVP Last administered on 08/01/16 08:41; Start at 14:00 Alteplase, Recombinant (Cathflo) 2 mg 1X ONCE INT CAT Last administered on 23:34; Start 07/31/16 at 23:15; Stop 07/31/16 at 23:16; Status DC Active Scripts Active Reported Amlodipine Besylate 5 Mg Tablet 5 Mg PO DAILY Pradaxa (Dabigatran Etexilate Mesylate) 150 Mg Capsule 1 Cap PO BID Metoprolol Succinate ( Xl ) (Metoprolol Succinate) 100 Mg Tab.er.24h 1 Tab PO DAILY Vitals/I & O Vital Sign - Last 24 Hours 07/31/16 07/31/16 07/31/16 07/31/16 13:00 13:00 13:25 14:00 Temp 101.0 101.0 Pulse 142 142 108 Resp 30 B/P 146/74 145/77 142/60 Pulse Ox 98 99 O2 Delivery Ventilator 07/31/16 07/31/16 07/31/16 07/31/16 14:00 15:00 15:05 15:31 Pulse 108 108 Resp 30 26 21 B/P 142/60 128/62 Pulse Ox 91 99 98 99 O2 Delivery Ventilator Ventilator Ventilator 07/31/16 07/31/16 07/31/16 07/31/16 16:00 16:00 17:00 17:48 Pulse 112 116 Resp 24 24 B/P 156/74 146/76 Pulse Ox 97 99 98 O2 Delivery Mechanical Ventilator Ventilator 07/31/16 07/31/16 07/31/16 07/31/16 18:00 18:03 18:33 19:00 Pulse 142 108 Resp 24 26 24 19 B/P 148/76 148/76 Pulse Ox 98 98 96 99 O2 Delivery Ventilator Ventilator Ventilator 07/31/16 07/31/16 07/31/16 07/31/16 20:00 20:00 20:08 21:00 Temp 99.8 99.8 Pulse 107 114 Resp 16 B/P 142/74 152/80 Pulse Ox 98 98 O2 Delivery Mechanical Ventilator Ventilator 07/31/16 07/31/16 07/31/16 07/31/16 21:19 21:21 22:00 23:00 Pulse 98 106 110 114 Resp 19 B/P 145/71 151/70 134/70 140/74 Pulse Ox 99 O2 Delivery Ventilator 07/31/16 08/01/16 08/01/16 08/01/16 23:12 00:00 00:00 01:00 Temp 98.7 98.7 Pulse 116 112 Resp 18 B/P 136/70 138/70 Pulse Ox 98 98 O2 Delivery Ventilator Mechanical Ventilator 08/01/16 08/01/16 08/01/16 08/01/16 02:00 02:16 03:00 04:00 Pulse 112 108 Resp 20 B/P 132/66 138/70 Pulse Ox 99 99 O2 Delivery Ventilator Ventilator Mechanical Ventilator 08/01/16 08/01/16 08/01/16 08/01/16 04:00 05:00 05:00 06:00 Temp 99.4 99.4 Pulse 116 110 117 114 Resp 21 24 24 B/P 132/66 123/73 144/72 140/72 Pulse Ox 98 99 99 08/01/16 08/01/16 08/01/16 08/01/16 07:00 08:00 08:00 08:42 Temp 99.6 99.6 Pulse 128 122 126 Resp 20 16 B/P 158/77 146/74 160/82 Pulse Ox 99 99 O2 Delivery Mechanical Ventilator 08/01/16 08/01/16 08/01/16 08/01/16 08:44 08:55 09:00 09:00 Pulse 114 114 120 Resp 16 B/P 160/85 160/85 162/80 Pulse Ox 98 99 O2 Delivery Ventilator Ventilator 08/01/16 08/01/16 10:00 11:00 Pulse 122 114 Resp 16 16 B/P 142/74 Pulse Ox 99 98 Intake and Output 07/31/16 07/31/16 08/01/16 14:59 22:59 06:59 Intake Total 20 ml 163 ml 651 ml Output Total 1035 ml 1300 ml 1365 ml Balance -1015 ml -1137 ml -714 ml MILA JEWELL MD Aug 01, 2016 12:25
--- NOTE | 2016-08-01 13:25 | PDOC ---
CARDIO Progress Notes Date and Time Date of Service 08/01/2016 Time of Evaluation 1322 Subjective Subjective: Other (intubated/ventilated; eyes open intermittently) Vitals Vitals Vital Signs Date Time Temp Pulse Resp B/P Pulse Ox O2 Delivery O2 Flow Rate FiO2 08/01/16 11:00 114 16 98 08/01/16 09:00 Ventilator 08/01/16 07:00 99.6 99.6 Weight Weight [ ] Stability Assessment Stability Assess.: unstable for transfer Input and Output Intake and Output Intake and Output 08/01/16 06:59 Intake Total 834 ml Output Total 3700 ml Balance -2866 ml Tube Feeding 60 ml Other 774 ml Output Urine Total 3480 ml Gastric Drainage Total 0 ml Chest Tube Drainage Total 220 ml # Bowel Movements 1 Laboratory Labs Laboratory Tests Test 07/31/16 13:35 07/31/16 14:30 08/01/16 06:20 08/01/16 08:55 Prothrombin Time 16.0SEC (11.7-14.0) Prothromb Time International Ratio 1.4 (0.8-1.1) Activated Partial Thromboplast Time 30SEC (24-38) Urine Collection Type U cath Urine Color Keke Urine Clarity Clear Urine pH 8.5 Urine Specific [place] 1.020 Urine Protein Negativemg/dL (NEG-TRACE) Urine Glucose (UA) Negativemg/dL (NEG) Urine Ketones (Stick) Negativemg/dL (NEG) Urine Blood Negative (NEG) Urine Nitrite Negative (NEG) Urine Bilirubin Small (NEG) Urine Urobilinogen Dipstick 1.0mg/dL (0.2 mg/dL) Urine Leukocyte Esterase Negative (NEG) Urine RBC 6-10/HPF (0-2) Urine WBC 1-4/HPF (0-4) Urine Bacteria 0/HPF (0-FEW) Urine Hyaline Casts Few/HPF White Blood Count 12.5x10^3/uL (4.0-11.0) Red Blood Count 2.77x10^6/uL (4.30-5.70) Hemoglobin 8.8g/dL (13.0-17.5) Hematocrit 26.0% (39.0-53.0) Mean Corpuscular Volume 94fL (79-100) Mean Corpuscular Hemoglobin 32pg (25-35) Mean Corpuscular Hemoglobin Concent 34g/dL (31-37) Red Cell Distribution Width 15.6% (11.5-14.5) Platelet Count 106x10^3/uL (140-400) Neutrophils (%) (Auto) 80% (31-73) Lymphocytes (%) (Auto) 12% (24-48) Monocytes (%) (Auto) 6% (0-9) Eosinophils (%) (Auto) 1% (0-3) Basophils (%) (Auto) 0% (0-3) Neutrophils # (Auto) 10.0x10^3uL (1.8-7.7) Lymphocytes # (Auto) 1.5x10^3/uL (1.0-4.8) Monocytes # (Auto) 0.8x10^3/uL (0.0-1.1) Eosinophils # (Auto) 0.1x10^3/uL (0.0-0.7) Basophils # (Auto) 0.0x10^3/uL (0.0-0.2) Segmented Neutrophils % 70% (35-66) Band Neutrophils % 18% (0-9) Lymphocytes % 7% (24-48) Monocytes % 2% (0-10) Eosinophils % 1% (0-5) Metamyelocytes % 2% (0-0) Nucleated Red Blood Cells 5 Platelet Estimate Decreased (ADEQUATE) Polychromasia Slight Basophilic Stippling Present Anisocytosis Slight Sodium Level 148mmol/L (136-145) Potassium Level 4.1mmol/L (3.5-5.1) Chloride Level 111mmol/L (98-107) Carbon Dioxide Level 29mmol/L (21-32) Anion Gap 8 (6-14) Blood Urea Nitrogen 33mg/dL (8-26) Creatinine 1.1mg/dL (0.7-1.3) Estimated GFR (Cockcroft-Gault) 69.0 BUN/Creatinine Ratio 30 (6-20) Glucose Level 143mg/dL (70-99) Calcium Level 7.6mg/dL (8.5-10.1) Magnesium Level 2.7mg/dL (1.8-2.4) Total Bilirubin 6.6mg/dL (0.2-1.0) Direct Bilirubin 4.9mg/dL (0.0-0.2) Aspartate Amino Transf (AST/SGOT) 166U/L (15-37) Alanine Aminotransferase (ALT/SGPT) 411U/L (16-63) Alkaline Phosphatase 208U/L (46-116) Total Protein 5.1g/dL (6.4-8.2) Albumin 2.4g/dL (3.4-5.0) Albumin/Globulin Ratio 0.9 (1.0-1.7) O2 Saturation 96% (92-99) Arterial Blood pH 7.49 (7.35-7.45) Arterial Blood pCO2 at Patient Temp 34mmHg (35-46) Arterial Blood pO2 at Patient Temp 82mmHg (75-108) Arterial Blood HCO3 25mmol/L (21-28) Arterial Blood Base Excess 2mmol/L (-3-3) FiO2 40 Microbiology Micro Microbiology 07/30/16 Blood Culture - Preliminary, Resulted NO GROWTH AFTER 1 DAY Case Discussion Case Discussed with: Other (RN) Physical Exam Chest: Symmetric, Other (oral ETT; ) LUNGS: Other (coarse, decreased bases anteriorly) Heart: S1S2, irregularly irregular, other (atrial fib; intermittently RVR) Abdomen: Other (soft) Extremities: Other (anasarca; DP/PT pulses by Doppler) Neurology: other (opens eyes) Assessment Assessment 1. STEMI troponin peaked @ 96.465 CABG on 07/25/2016 with FLETCHER to LAD; SVG to LAD; SVG to OM1 and SVG to RPDA - ? attempt to close chest today VF arrest after chest closed; reopened and placed back on bypass then converted to LVAD (Impella) post-operative WA remains on amiodarone per feeding tube 2. cardiogenic shock Impella removed 07/28/2016 - LVEF ~ 25% by echo TTE on 07/26/2016 with severe global hypokinesis of the left ventricle distal 2/3 of the LV is severely hypokinetic with akinesis of the mid to distal LAD and apex LVEF depressed at about 20% remains on dobutamine @ 2.5 mcg 3. ischemic cardiomyopathy LVEF mildly depressed @ 45% on echo pre-op furosemide IV tid - off gtt 4. HTN BP stabilizing 5. HLD statin therapy 6. atrial fib chronic; has been in and out of atrial fib rate controlled with BB and dig off anticoagulation for now NERY DANGELO MAIL CARRIER Aug 01, 2016 13:25
--- NOTE | 2016-08-01 13:46 | RAD ---
Portable chest, 08/01/2016, 1:36 PM: History: Follow-up chest tube removal Comparison is made to a study from earlier the same day. The ET tube tip lies approximately 3 cm above the clara. The NG tube extends into the stomach. A right PICC extends to the level of the atriocaval junction. The left chest tube has been removed. There is no evidence of pneumothorax. The left chest remains clear. There is improving right basilar atelectasis. No definite pleural fluid is seen. IMPRESSION: 1. Interval removal of the left chest tube with no evidence of pneumothorax. 2. Resolving right lower lobe atelectasis. 3. No other significant change since earlier in the day.
--- NOTE | 2016-08-01 13:47 | PDOC ---
Progress Note Subjective Subjective No acute events. PICC line placed, cordis/swan removed, mediastinal drains out. Open eyes spontaneously more frequently, but not moving extremities. On 2.5mcg of dobutamine. He has been normotensive. He remains in atrial fibrillation which is chronic, rate controlled. Vent settings FIO2 40% with PEEP 5 with good oxygenation and ventilation. Good UO on Lasix 40mg TID. He was negative 2 lit over the past 24 hr. His left foot has palpable pulses. He is receiving tube feeds at goal (60 mL) which he is tolerating-he has had bowel movements. Bilirubin down to 6 from 8. ROS ROS Unable to perform-intubated Vital Sign Vital Signs Vital Signs Date Time Temp Pulse Resp B/P Pulse Ox O2 Delivery O2 Flow Rate FiO2 08/01/16 13:08 99 Ventilator 08/01/16 11:00 114 16 08/01/16 07:00 99.6 99.6 Physical Exam PHYSICAL EXAM GENERAL: Intubated, 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 HEENT: Pupils reactive, scleral icterus improving NECK: Supple LUNGS: Clear HEART: S1S2 CHEST: sternotomy: D/C/I ABD: Soft, NT EXT: edema improved, warm well perfused, pedal pulses palpable SCENE SHIFTER: Intubated,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, extremities flaccid SKIN: No rash IV: ok Labs Lab Laboratory Tests Test 07/31/16 14:30 08/01/16 06:20 08/01/16 08:55 Urine Collection Type U cath Urine Color Keke Urine Clarity Clear Urine pH 8.5 Urine Specific [place] 1.020 Urine Protein Negativemg/dL (NEG-TRACE) Urine Glucose (UA) Negativemg/dL (NEG) Urine Ketones (Stick) Negativemg/dL (NEG) Urine Blood Negative (NEG) Urine Nitrite Negative (NEG) Urine Bilirubin Small (NEG) Urine Urobilinogen Dipstick 1.0mg/dL (0.2 mg/dL) Urine Leukocyte Esterase Negative (NEG) Urine RBC 6-10/HPF (0-2) Urine WBC 1-4/HPF (0-4) Urine Bacteria 0/HPF (0-FEW) Urine Hyaline Casts Few/HPF White Blood Count 12.5x10^3/uL (4.0-11.0) Red Blood Count 2.77x10^6/uL (4.30-5.70) Hemoglobin 8.8g/dL (13.0-17.5) Hematocrit 26.0% (39.0-53.0) Mean Corpuscular Volume 94fL (79-100) Mean Corpuscular Hemoglobin 32pg (25-35) Mean Corpuscular Hemoglobin Concent 34g/dL (31-37) Red Cell Distribution Width 15.6% (11.5-14.5) Platelet Count 106x10^3/uL (140-400) Neutrophils (%) (Auto) 80% (31-73) Lymphocytes (%) (Auto) 12% (24-48) Monocytes (%) (Auto) 6% (0-9) Eosinophils (%) (Auto) 1% (0-3) Basophils (%) (Auto) 0% (0-3) Neutrophils # (Auto) 10.0x10^3uL (1.8-7.7) Lymphocytes # (Auto) 1.5x10^3/uL (1.0-4.8) Monocytes # (Auto) 0.8x10^3/uL (0.0-1.1) Eosinophils # (Auto) 0.1x10^3/uL (0.0-0.7) Basophils # (Auto) 0.0x10^3/uL (0.0-0.2) Segmented Neutrophils % 70% (35-66) Band Neutrophils % 18% (0-9) Lymphocytes % 7% (24-48) Monocytes % 2% (0-10) Eosinophils % 1% (0-5) Metamyelocytes % 2% (0-0) Nucleated Red Blood Cells 5 Platelet Estimate Decreased (ADEQUATE) Polychromasia Slight Basophilic Stippling Present Anisocytosis Slight Sodium Level 148mmol/L (136-145) Potassium Level 4.1mmol/L (3.5-5.1) Chloride Level 111mmol/L (98-107) Carbon Dioxide Level 29mmol/L (21-32) Anion Gap 8 (6-14) Blood Urea Nitrogen 33mg/dL (8-26) Creatinine 1.1mg/dL (0.7-1.3) Estimated GFR (Cockcroft-Gault) 69.0 BUN/Creatinine Ratio 30 (6-20) Glucose Level 143mg/dL (70-99) Calcium Level 7.6mg/dL (8.5-10.1) Magnesium Level 2.7mg/dL (1.8-2.4) Total Bilirubin 6.6mg/dL (0.2-1.0) Direct Bilirubin 4.9mg/dL (0.0-0.2) Aspartate Amino Transf (AST/SGOT) 166U/L (15-37) Alanine Aminotransferase (ALT/SGPT) 411U/L (16-63) Alkaline Phosphatase 208U/L (46-116) Total Protein 5.1g/dL (6.4-8.2) Albumin 2.4g/dL (3.4-5.0) Albumin/Globulin Ratio 0.9 (1.0-1.7) O2 Saturation 96% (92-99) Arterial Blood pH 7.49 (7.35-7.45) Arterial Blood pCO2 at Patient Temp 34mmHg (35-46) Arterial Blood pO2 at Patient Temp 82mmHg (75-108) Arterial Blood HCO3 25mmol/L (21-28) Arterial Blood Base Excess 2mmol/L (-3-3) FiO2 40 Objective Assessment Status post CABG 3 for severe ischemic cardiomyopathy, large anterior STEMI with troponin of 100, with early postoperative myocardial infarction/V. fib, leading to cardiogenic shock, placement of the vein graft to the LAD and impella for mechanical circulatory support and open chest. Sternotomy has been closed and the LVAD has been removed.. No acute events. PICC line placed, cordis/swan removed, mediastinal drains out. Open eyes spontaneously more frequently, but not moving extremities. On 2.5mcg of dobutamine. He has been normotensive. He remains in atrial fibrillation which is chronic, rate controlled. Vent settings FIO2 40% with PEEP 5 with good oxygenation and ventilation. Good UO on Lasix 40mg TID. He was negative 2 lit over the past 24 hr. His left foot has palpable pulses. He is receiving tube feeds at goal (60 mL) which he is tolerating-he has had bowel movements. Bilirubin down to 6 from 8. 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 May need tracheostomy depending on progress over the next couple of days OLGA LOPEZ MD Aug 01, 2016 13:47
--- NOTE | 2016-08-01 13:53 | PDOC2 ---
CONSULT Date of Consult Date of Consult DATE: 08/01/16 TIME: 13:52 Past Medical History Cardiovascular: AFIB, HTN Past Surgical History Past Surgical History: No pertinent history Family History Family History: Heart Disease Social History 1 pack per day (40-50) ALCOHOL: rare Drugs: None Lives: with Family Domestic Violence: Neg Current Problem List Problem List Problems Medical Problems: (1) CAD (coronary artery disease), [place] coronary artery Status: Acute (2) Chest pain Status: Acute (3) STEMI (ST elevation myocardial infarction) Status: Acute Current Medications Current Medications Current Medications Nitroglycerin 0.4 mg 0.4 mg PRN Q5MIN PRN SL CP RATING > 1/10; Start 07/20/16 at 09:45; Stop 07/20/16 at 15:05; Status DC Nitroglycerin/ Dextrose (Nitroglycerin Drip) 250 ml @ 3 mls/hr 1X ONCE IV Last administered on 07/20/16 10:02; Start 07/20/16 at 10:30; Stop 07/23/16 at 21: 49; Status DC Morphine Sulfate 2 mg PRN Q15MIN PRN IV/SQ PAIN GREATER THAN 3/10; Start at 09:45; Stop 07/21/16 at 09:44; Status DC Ondansetron HCl (Zofran) 4 mg PRN Q8HRS PRN IV NAUSEA/VOMITING; Start 07/20/16 at 12:30; Stop 07/20/16 at 13:36; Status DC Morphine Sulfate 2 mg 2 mg PRN Q2HR PRN IV PAIN; Start 07/20/16 at 12:30; Stop 07/21/16 at 12:29; Status DC Heparin Sodium/ Dextrose 500 ml @ 0 mls/hr CONT PRN IV . Last administered on 10:32; Start 07/20/16 at 13:00; Stop 07/21/16 at 14:50; Status DC Metoprolol Tartrate (Lopressor) 5 mg Q6HRS IVP ; Start 07/20/16 at 13:00; Stop at 14:53; Status DC Aspirin (Ecotrin) 325 mg [id number] PO Last administered on 07/21/16 08:11; Start 07/20/16 at 13:00; Stop 07/21/16 at 17:20; Status DC Ondansetron HCl (Zofran) 4 mg PRN Q6HRS PRN IV NAUSEA/VOMITING; Start 07/20/16 at 13:35; Stop 07/26/16 at 11:41; Status DC Acetaminophen (Tylenol) 500 mg PRN Q6HRS PRN PO MILD PAIN / TEMP Last administered on 07/29/16 09:55; Start 07/20/16 at 13:45; Stop 07/29/16 at 13:38 ; Status DC Docusate Sodium (Colace) 100 mg DAILY PO Last administered on 07/29/16 09:54; Start 07/20/16 at 15:00; Stop 07/29/16 at 10:03; Status DC Iohexol 100 ml 100 ml STK-MED ONCE .ROUTE ; Start 07/20/16 at 12:40; Stop at 13:44; Status DC Heparin Sodium/ Sodium Chloride 1,000 ml @ As Directed STK-MED ONCE .ROUTE ; Start 07/20/16 at 12:41; Stop 07/20/16 at 13:44; Status DC Lidocaine HCl 20 ml STK-MED ONCE .ROUTE ; Start 07/20/16 at 12:41; Stop 07/20/16 at 13:44; Status DC Fentanyl Citrate (Fentanyl 2ml Vial) 100 mcg STK-MED ONCE .ROUTE ; Start at 13:42; Stop 07/20/16 at 13:45; Status DC Midazolam HCl (Versed) 2 mg STK-MED ONCE .ROUTE ; Start 07/20/16 at 13:42; Stop 07/20/16 at 13:45; Status DC Heparin Sodium/ Sodium Chloride 1,000 unit 1X ONCE IART Last administered on 14:29; Start 07/20/16 at 14:00; Stop 07/20/16 at 14:01; Status DC Heparin Sodium/ Sodium Chloride 1,000 unit 1X ONCE IART Last administered on 14:29; Start 07/20/16 at 14:00; Stop 07/20/16 at 14:01; Status DC Midazolam HCl (Versed) 2 mg 1X ONCE IV Last administered on 07/20/16 14:28; Start 07/20/16 at 14:00; Stop 07/20/16 at 14:01; Status DC Fentanyl Citrate (Fentanyl 2ml Vial) 100 mcg 1X ONCE IV Last administered on 14:28; Start 07/20/16 at 14:00; Stop 07/20/16 at 14:01; Status DC Iohexol (Omnipaque 300 Mg/ml) 100 ml 1X ONCE IART Last administered on 14:29; Start 07/20/16 at 14:00; Stop 07/20/16 at 14:01; Status DC Lidocaine HCl 20 ml 1X ONCE IJ Last administered on 07/20/16 14:29; Start 07/20 at 14:00; Stop 07/20/16 at 14:01; Status DC Midazolam HCl (Versed) 2 mg STK-MED ONCE .ROUTE ; Start 07/20/16 at 14:15; Stop 07/20/16 at 14:16; Status DC Sodium Chloride 3 ml 3 ml QSHIFT PRN IV AFTER MEDS AND BLOOD DRAWS; Start at 14:45; Stop 07/29/16 at 13:51; Status DC Sodium Chloride (Iv Sodium Chloride 0.9% 1000ml Bag) 1,000 ml @ 60 mls/hr [id number] IV Last administered on 07/20/16 14:44; Start 07/20/16 at 14:44; Stop at 00:43; Status DC Metoprolol Tartrate (Lopressor) 12.5 mg BID PO ; Start 07/20/16 at 21:00; Stop at 21:00; Status DC Lisinopril (Prinivil) 5 mg DAILY PO Last administered on 07/20/16 16:25; Start 07/20/16 at 15:00; Stop 07/20/16 at 17:21; Status DC Atorvastatin Calcium (Lipitor) 20 mg QHS PO Last administered on 07/20/16 20:33 ; Start 07/20/16 at 21:00; Stop 07/21/16 at 08:11; Status DC Nitroglycerin (Nitrostat) 0.4 mg PRN Q5MIN PRN SL CHEST PAIN Last administered on 07/25/16 04:55; Start 07/20/16 at 14:45; Stop 07/26/16 at 11:41; Status DC Hydralazine HCl (Apresoline) 10 mg PRN Q4HRS PRN IVP ELEVATED BP, SEE COMMENTS Last administered on 07/31/16 10:58; Start 07/20/16 at 17:15; Stop 07/31/16 at 13:31; Status DC Metoprolol Tartrate (Lopressor) 50 mg BID PO Last administered on 07/22/16 08: 31; Start 07/20/16 at 21:00; Stop 07/22/16 at 19:03; Status DC Alprazolam (Xanax) 0.25 mg PRN Q8HRS PRN PO ANXIETY / AGITATION Last administered on 07/24/16 21:34; Start 07/20/16 at 17:30; Stop 07/29/16 at 13:38; Status DC Heparin Sodium (Porcine) 2050 unit 2,050 unit PRN Q6HRS PRN IV FOR UFH LEVEL LESS THAN 0.2 Last administered on 07/21/16 04:24; Start 07/20/16 at 19:45; Stop 07/26/16 at 08:55; Status DC Heparin Sodium/ Dextrose 500 ml @ 19.4 mls/hr CONT PRN IV SEE I/O RECORD; Start 07/20/16 at 19:45; Stop 07/21/16 at 16:24; Status DC Heparin Sodium (Porcine) (Heparin Sodium) 2,050 unit PRN Q6HRS PRN IV FOR UFH LEVEL LESS THAN 0.2; Start 07/20/16 at 19:45; Status UNV Atorvastatin Calcium (Lipitor) 40 mg QHS PO Last administered on 07/31/16 21: 21; Start 07/21/16 at 21:00 Iodixanol (Visipaque 320) 200 ml STK-MED ONCE .ROUTE ; Start 07/20/16 at 14:00; Stop 07/21/16 at 08:26; Status DC Zolpidem Tartrate (Ambien) 5 mg PRN QHS PRN PO INSOMNIA, MAY REPEAT IN 1HR; Start 07/21/16 at 15:30; Stop 07/29/16 at 13:38; Status DC Metoprolol Tartrate 25 mg 25 mg 1X ONCE PO ; Start 07/22/16 at 06:00; Stop at 06:02; Status DC Cefazolin Sodium/ Dextrose 50 ml @ 100 mls/hr 1X ONCE IV ; Start 07/22/16 at 06 :00; Stop 07/22/16 at 06:29; Status DC Heparin Sodium/ Dextrose 500 ml @ 0 mls/hr CONT PRN IV SEE I/O RECORD Last administered on 07/24/16 01:40; Start 07/21/16 at 16:30; Stop 07/26/16 at 08:55; Status DC Lidocaine HCl 2 ml 2 ml 1X PRN PRN ID IV START; Start 07/25/16 at 06:00; Stop 07/26/16 at 05:59; Status Cancel Lactated Ringer's (Iv Lactated Ringers) 1,000 ml @ 0 mls/hr Q0M IV Last administered on 07/25/16 07:30; Start 07/25/16 at 06:00; Stop 07/25/16 at 17:59 ; Status DC Fentanyl Citrate (Fentanyl 2ml Vial) 25 mcg PRN Q5MIN PRN IV Acute Pain; Start 07/22/16 at 09:15; Stop 07/23/16 at 09:14; Status DC Morphine Sulfate 2 mg PRN Q10MIN PRN IV Mild Pain; Start 07/22/16 at 09:15; Stop 07/23/16 at 09:14; Status DC Hydromorphone HCl (Dilaudid) 0.4 mg PRN Q10MIN PRN IV Moderate to severe pain; Start 07/22/16 at 09:15; Stop 07/23/16 at 09:14; Status DC Ondansetron HCl (Zofran) 4 mg PRN Q6HRS PRN IV Nausea, 1st Choice; Start at 09:15; Stop 07/23/16 at 09:14; Status DC Prochlorperazine Edisylate (Compazine) 5 mg PRN Q6HRS PRN IV Nausea/Vomiting, 2nd Choice; Start 07/22/16 at 09:15; Stop 07/23/16 at 09:14; Status DC Ondansetron HCl (Zofran) 4 mg PRN Q6HRS PRN IV NAUSEA/VOMITING; Start 07/25/16 at 07:00; Stop 07/26/16 at 06:59; Status DC Fentanyl Citrate (Fentanyl 2ml Vial) 25 mcg PRN Q5MIN PRN IV MILD PAIN; Start 07/25/16 at 07:00; Stop 07/26/16 at 06:59; Status DC Fentanyl Citrate (Fentanyl 2ml Vial) 50 mcg PRN Q5MIN PRN IV MODERATE PAIN; Start 07/25/16 at 07:00; Stop 07/26/16 at 06:59; Status DC Morphine Sulfate 1 mg 1 mg PRN Q10MIN PRN IV SEVERE PAIN; Start 07/25/16 at 07: 00; Stop 07/25/16 at 20:28; Status DC Lactated Ringer's (Iv Lactated Ringers) 1,000 ml @ 0 mls/hr Q0M IV ; Start 01/31 at 07:00; Stop 07/25/16 at 18:59; Status Cancel Lidocaine HCl 2 ml PRN 1X PRN ID PRIOR TO IV START Last administered on 07:16; Start 07/25/16 at 07:00; Stop 07/26/16 at 06:59; Status DC Hydromorphone HCl (Dilaudid) 0.5 mg PRN Q10MIN PRN IV SEV PAIN, Second choice; Start 07/25/16 at 07:00; Stop 07/26/16 at 06:59; Status DC Prochlorperazine Edisylate 5 mg 5 mg PACU PRN PRN IV NAUSEA, MRX1; Start at 07:00; Stop 07/26/16 at 06:59; Status DC Cefazolin Sodium/ Dextrose (Ancef 2gm Premix) 50 ml @ 100 mls/hr 1X ONCE IV Last administered on 07/25/16 08:12; Start 07/25/16 at 06:00; Stop 07/25/16 at 06:29; Status DC Metoprolol Tartrate (Lopressor) 25 mg 1X ONCE PO ; Start 07/25/16 at 06:00; Stop 07/25/16 at 06:00; Status DC Metoprolol Tartrate (Lopressor) 2.5 mg 1X ONCE IVP Last administered on 16:30; Start 07/22/16 at 16:30; Stop 07/22/16 at 16:31; Status DC Digoxin (Lanoxin) 250 mcg 1X ONCE IV ; Start 07/22/16 at 18:30; Stop 07/22/16 at 18:42; Status DC Digoxin (Lanoxin) 500 mcg 1X ONCE IV Last administered on 07/22/16 18:47; Start 07/22/16 at 18:45; Stop 07/22/16 at 18:46; Status DC Metoprolol Tartrate (Lopressor) 75 mg BID PO Last administered on 07/24/16 21: 30; Start 07/22/16 at 21:00; Stop 07/25/16 at 13:12; Status DC Nitroglycerin 0.4 mg 0.4 mg PRN Q5MIN PRN SL CHEST PAIN; Start 07/23/16 at 12:00 ; Status UNV Heparin Sodium (Porcine) 52238 unit/Lactated Ringer's 1,020 ml @ 1,020 mls/hr 1X PERIOP ONCE IRR Last administered on 07/25/16 08:46; Start 07/25/16 at 06: 00; Stop 07/25/16 at 06:59; Status DC Potassium Chloride 70 meq/ Sodium Bicarbonate 12.5 meq/Lidocaine HCl 24 ml/ Parenteral Electrolytes 571.5 ml @ 571.5 mls/ hr 1X PERIOP ONCE IRR ; Start at 06:00; Stop 07/25/16 at 06:59; Status DC Potassium Chloride/Sodium Bicarbonate/ Parenteral Electrolytes (Isolyte S) 520 ml @ 520 mls/hr 1X PERIOP ONCE IRR ; Start 07/25/16 at 06:00; Stop 07/25/16 at 06:59; Status DC Etomidate (Amidate) 20 mg STK-MED ONCE IV ; Start 07/25/16 at 06:08; Stop at 06:09; Status DC Phenylephrine HCl (-Synephrine Inj) 10 mg STK-MED ONCE .ROUTE ; Start at 06:08; Stop 07/25/16 at 06:09; Status DC Aminocaproic Acid (Amicar) 5,000 mg STK-MED ONCE IV ; Start 07/25/16 at 06:08; Stop 07/25/16 at 06:09; Status DC Heparin Sodium (Porcine) (Heparin Sodium) 10,000 unit STK-MED ONCE .ROUTE ; Start 07/25/16 at 06:10; Stop 07/25/16 at 06:11; Status DC Rocuronium [place] (Zemuron) 100 mg STK-MED ONCE .ROUTE ; Start 07/25/16 at 06: 11; Stop 07/25/16 at 06:12; Status DC Morphine Sulfate 4 mg STK-MED ONCE .ROUTE ; Start 07/25/16 at 06:59; Stop at 07:00; Status DC Morphine Sulfate 4 mg 4 mg 1X ONCE IV ; Start 07/25/16 at 07:15; Stop 07/25/16 at 07:16; Status DC Cefazolin Sodium/ Sodium Chloride (Ancef/Iv Sodium Chloride 0.9% 500ml Bag) 500 ml @ 500 mls/hr 1X PERIOP ONCE IRR Last administered on 07/25/16 08:46; Start 07/25/16 at 07:15; Stop 07/25/16 at 08:14; Status DC Cellulose 1 each STK-MED ONCE .ROUTE Last administered on 07/25/16 08:46; Start 07/25/16 at 07:07; Stop 07/25/16 at 07:08; Status DC Vancomycin HCl (Vanco) 10 gm STK-MED ONCE .ROUTE Last administered on 08:46; Start 07/25/16 at 07:07; Stop 07/25/16 at 07:08; Status DC Papaverine HCl 60 mg STK-MED ONCE .ROUTE Last administered on 07/25/16 08:46; Start 07/25/16 at 07:07; Stop 07/25/16 at 07:08; Status DC Aspirin (Aspirin) 300 mg STK-MED ONCE .ROUTE Last administered on 07/25/16 17: 25; Start 07/25/16 at 07:08; Stop 07/25/16 at 07:09; Status DC Sodium Chloride (Sodium Chloride) 50 ml STK-MED ONCE IJ Last administered on 08:46; Start 07/25/16 at 07:08; Stop 07/25/16 at 07:09; Status DC Midazolam HCl (Versed) 2 mg STK-MED ONCE .ROUTE ; Start 07/25/16 at 07:15; Stop 07/25/16 at 07:16; Status DC Ephedrine Sulfate 50 mg 50 mg STK-MED ONCE IV ; Start 07/25/16 at 07:16; Stop at 07:17; Status DC Nitroglycerin/ Dextrose (Nitroglycerin Drip) 250 ml @ As Directed STK-MED ONCE IV ; Start 07/25/16 at 07:16; Stop 07/25/16 at 07:17; Status DC Midazolam HCl (Versed) 2 mg STK-MED ONCE .ROUTE ; Start 07/25/16 at 07:18; Stop 07/25/16 at 07:19; Status DC Fentanyl Citrate (Fentanyl 2ml Vial) 100 mcg STK-MED ONCE .ROUTE ; Start at 07:19; Stop 07/25/16 at 07:20; Status DC Sufentanil Citrate (Sufenta) 100 mcg STK-MED ONCE .ROUTE ; Start 07/25/16 at 07: 19; Stop 07/25/16 at 07:20; Status DC Midazolam HCl (Versed) 2 mg 1X ONCE IV ; Start 07/25/16 at 08:00; Stop at 08:01; Status DC Dexamethasone Sodium Phosphate (Decadron) 20 mg STK-MED ONCE .ROUTE ; Start 01/31 at 07:58; Stop 07/25/16 at 07:59; Status DC Rocuronium [place] (Zemuron) 100 mg STK-MED ONCE .ROUTE ; Start 07/25/16 at 08: 52; Stop 07/25/16 at 08:53; Status DC Sufentanil Citrate (Sufenta) 100 mcg STK-MED ONCE .ROUTE ; Start 07/25/16 at 08: 53; Stop 07/25/16 at 08:54; Status DC Protamine Sulfate 250 mg STK-MED ONCE IV ; Start 07/25/16 at 10:43; Stop at 10:44; Status DC Rocuronium [place] 100 mg 100 mg STK-MED ONCE .ROUTE ; Start 07/25/16 at 10:52; Stop 07/25/16 at 10:53; Status DC Albumin Human 0 ml @ As Directed STK-MED ONCE IV ; Start 07/25/16 at 10:53; Stop 07/25/16 at 10:54; Status DC Amiodarone HCl/ Dextrose (Cordarone) 518 ml @ 34.53 mls/ hr 1X ONCE IV Last administered on 07/25/16t 18:52; Start 07/25/16 at 11:30; Stop 07/26/16 at 02:30 ; Status DC Sodium Bicarbonate 50 meq STK-MED ONCE .ROUTE ; Start 07/25/16 at 11:35; Stop at 11:36; Status DC Protamine Sulfate 50 mg STK-MED ONCE IV ; Start 07/25/16 at 12:31; Stop at 12:32; Status DC Amiodarone HCl (Cordarone) 150 mg STK-MED ONCE .ROUTE ; Start 07/25/16 at 12:37 ; Stop 07/25/16 at 12:38; Status DC Isoflurane (Isoflurane) 90 ml STK-MED ONCE IH ; Start 07/25/16 at 12:42; Stop at 12:43; Status DC Lidocaine HCl (Lidocaine HCl 2% Abboject) 100 mg STK-MED ONCE .ROUTE ; Start 01/31 at 13:07; Stop 07/25/16 at 13:08; Status DC Mannitol (Mannitol) 12.5 g STK-MED ONCE .ROUTE ; Start 07/25/16 at 13:07; Stop 07/25/16 at 13:08; Status DC Calcium Chloride 1,000 mg STK-MED ONCE IV ; Start 07/25/16 at 13:07; Stop at 13:08; Status DC Sodium Bicarbonate 50 meq 50 meq STK-MED ONCE .ROUTE ; Start 07/25/16 at 13:07; Stop 07/25/16 at 13:08; Status DC Albumin Human (Albuminar) 100 ml @ As Directed STK-MED ONCE IV ; Start at 13:07; Stop 07/25/16 at 13:08; Status DC Magnesium Sulfate 5 gm STK-MED ONCE .ROUTE ; Start 07/25/16 at 13:08; Stop 07/25 at 13:09; Status DC Heparin Sodium (Porcine) 62992 unit 30,000 unit STK-MED ONCE .ROUTE ; Start 01/31 at 13:08; Stop 07/25/16 at 13:09; Status DC Clevidipine (Cleviprex) 100 ml @ 0 mls/hr CONT PRN IV PER PROTOCOL; Start 07/25 at 13:45; Stop 07/26/16 at 11:29; Status DC Heparin Sodium (Porcine) 97148 unit 30,000 unit STK-MED ONCE .ROUTE ; Start 01/31 at 13:39; Stop 07/25/16 at 13:40; Status DC Epinephrine HCl/ Sodium Chloride (Adrenalin/Iv Sodium Chloride 0.9% 250ml) 254 ml @ 3.81 mls/hr CONT PRN IV SEE I/O RECORD; Start 07/25/16 at 13:45 Epinephrine HCl (Epinephrine Syringe) 1 mg STK-MED ONCE .ROUTE ; Start 07/25/16 at 13:52; Stop 07/25/16 at 13:53; Status DC Rocuronium [place] (Zemuron) 100 mg STK-MED ONCE .ROUTE ; Start 07/25/16 at 13: 57; Stop 07/25/16 at 13:58; Status DC Sodium Bicarbonate 50 meq 50 meq STK-MED ONCE .ROUTE ; Start 07/25/16 at 14:04; Stop 07/25/16 at 14:05; Status DC Procainamide HCl/ Dextrose (Pronestyl) 520 ml @ 15.6 mls/hr CONT PRN IV SEE I/ O RECORD; Start 07/25/16 at 14:30; Stop 07/28/16 at 15:22; Status DC Sodium Bicarbonate 50 meq STK-MED ONCE .ROUTE ; Start 07/25/16 at 14:31; Stop at 14:32; Status DC Sodium Bicarbonate 50 meq STK-MED ONCE .ROUTE ; Start 07/25/16 at 14:31; Stop at 14:32; Status DC Protamine Sulfate 50 mg STK-MED ONCE IV ; Start 07/25/16 at 15:13; Stop at 15:14; Status DC Protamine Sulfate 50 mg STK-MED ONCE IV ; Start 07/25/16 at 15:13; Stop at 15:14; Status DC Isoflurane 90 ml 90 ml STK-MED ONCE IH ; Start 07/25/16 at 15:13; Stop 07/25/16 at 15:14; Status DC Dobutamine HCl/ Dextrose 250 ml @ As Directed STK-MED ONCE IV ; Start 07/25/16 at 15:17; Stop 07/25/16 at 15:18; Status DC Iohexol 100 ml 100 ml STK-MED ONCE .ROUTE Last administered on 07/25/16t 15:39 ; Start 07/25/16 at 15:28; Stop 07/25/16 at 15:29; Status DC Norepinephrine Bitartrate 8 mg/ Sodium Chloride 258 ml @ 1.93 mls/hr 1X ONCE IV Last administered on 07/25/16 18:53; Start 07/25/16 at 16:00; Stop at 08:04; Status DC Albumin Human (Plasmanate) 1,000 ml @ As Directed STK-MED ONCE IV ; Start 07/25 at 16:11; Stop 07/25/16 at 16:12; Status DC Heparin Sodium (Porcine) (Heparin Sodium) 10,000 unit STK-MED ONCE .ROUTE ; Start 07/25/16 at 16:19; Stop 07/25/16 at 16:20; Status DC Lidocaine HCl (Lidocaine HCl 2% Abboject) 100 mg STK-MED ONCE .ROUTE ; Start 01/31 at 16:19; Stop 07/25/16 at 16:20; Status DC Mannitol (Mannitol) 12.5 g STK-MED ONCE .ROUTE ; Start 07/25/16 at 16:19; Stop 07/25/16 at 16:20; Status DC Calcium Chloride 1,000 mg STK-MED ONCE IV ; Start 07/25/16 at 16:19; Stop at 16:20; Status DC Sodium Bicarbonate 50 meq STK-MED ONCE .ROUTE ; Start 07/25/16 at 16:19; Stop at 16:20; Status DC Magnesium Sulfate 5 gm STK-MED ONCE .ROUTE ; Start 07/25/16 at 16:19; Stop 07/25 at 16:20; Status DC Heparin Sodium (Porcine) (Heparin Sodium) 10,000 unit STK-MED ONCE .ROUTE ; Start 07/25/16 at 16:20; Stop 07/25/16 at 16:21; Status DC Lidocaine HCl (Lidocaine HCl 2% Abboject) 100 mg STK-MED ONCE .ROUTE ; Start 01/31 at 16:20; Stop 07/25/16 at 16:21; Status DC Aminocaproic Acid (Amicar) 5,000 mg STK-MED ONCE IV ; Start 07/25/16 at 16:20; Stop 07/25/16 at 16:21; Status DC Mannitol (Mannitol) 12.5 g STK-MED ONCE .ROUTE ; Start 07/25/16 at 16:20; Stop 07/25/16 at 16:21; Status DC Sodium Bicarbonate 50 meq 50 meq STK-MED ONCE .ROUTE ; Start 07/25/16 at 16:20; Stop 07/25/16 at 16:21; Status DC Albumin Human (Albuminar) 100 ml @ As Directed STK-MED ONCE IV ; Start at 16:20; Stop 07/25/16 at 16:21; Status DC Rocuronium [place] (Zemuron) 50 mg STK-MED ONCE .ROUTE ; Start 07/25/16 at 16:33 ; Stop 07/25/16 at 16:34; Status DC Rocuronium [place] (Zemuron) 50 mg STK-MED ONCE .ROUTE ; Start 07/25/16 at 16:33 ; Stop 07/25/16 at 16:34; Status DC Protamine Sulfate 50 mg STK-MED ONCE IV ; Start 07/25/16 at 16:34; Stop at 16:35; Status DC Sodium Bicarbonate 50 meq STK-MED ONCE .ROUTE ; Start 07/25/16 at 16:36; Stop at 16:37; Status DC Calcium Chloride 1,000 mg STK-MED ONCE IV ; Start 07/25/16 at 16:41; Stop at 16:42; Status DC Epinephrine HCl (Epinephrine Syringe) 1 mg STK-MED ONCE .ROUTE ; Start 07/25/16 at 16:41; Stop 07/25/16 at 16:42; Status DC Sodium Bicarbonate 50 meq STK-MED ONCE .ROUTE ; Start 07/25/16 at 16:52; Stop at 16:53; Status DC Sodium Bicarbonate 50 meq STK-MED ONCE .ROUTE ; Start 07/25/16 at 16:52; Stop at 16:53; Status DC Sodium Bicarbonate 50 meq STK-MED ONCE .ROUTE ; Start 07/25/16 at 16:52; Stop at 16:53; Status DC Vasopressin (Vasostrict) 20 unit STK-MED ONCE .ROUTE ; Start 07/25/16 at 16:54; Stop 07/25/16 at 16:55; Status DC Famotidine (Pepcid) 20 mg STK-MED ONCE .ROUTE ; Start 07/25/16 at 16:56; Stop at 16:57; Status DC Dexamethasone Sodium Phosphate (Decadron) 20 mg STK-MED ONCE .ROUTE ; Start 01/31 at 16:56; Stop 07/25/16 at 16:57; Status DC Diphenhydramine HCl 50 mg 50 mg STK-MED ONCE .ROUTE ; Start 07/25/16 at 16:56; Stop 07/25/16 at 16:57; Status DC Vasopressin/ Dextrose (Vasostrict) 102 ml @ 6 mls/hr CONT PRN IV SEE I/O RECORD Last administered on 07/28/16 22:48; Start 07/25/16 at 17:15 Sodium Bicarbonate 50 meq STK-MED ONCE .ROUTE ; Start 07/25/16 at 17:24; Stop at 17:25; Status DC Sodium Bicarbonate 50 meq 50 meq STK-MED ONCE .ROUTE ; Start 07/25/16 at 17:24; Stop 07/25/16 at 17:25; Status DC Cefazolin Sodium/ Dextrose (Ancef 2gm Premix) 50 ml @ As Directed STK-MED ONCE IV ; Start 07/25/16 at 17:32; Stop 07/25/16 at 17:33; Status DC Sodium Chloride 3 ml 3 ml PRN Q12HR PRN IV AFTER MEDS AND BLOOD DRAWS; Start at 17:30; Stop 07/29/16 at 13:38; Status DC Lactated Ringer's 1,000 ml @ 15 mls/hr Q24H IV Last administered on 07/29/16 16:45; Start 07/25/16 at 17:30; Stop 07/31/16 at 15:33; Status DC Insulin Human Regular/Sodium Chloride (Novolin R Vial/ Iv Normal Saline 150ml) 151.5 ml @ 0 mls/hr CONT PRN PRN IV SEE I/O RECORD Last administered on 03:03; Start 07/25/16 at 17:30; Stop 07/29/16 at 13:51; Status DC Dextrose 25 gm 25 gm PRN Q15MIN PRN IV LOW BLOOD SUGAR; Start 07/25/16 at 17:30 ; Stop 07/29/16 at 13:51; Status DC Dopamine HCl/ Dextrose 250 ml @ 0 mls/hr CONT PRN PRN IV SEE I/O RECORD; Start 07/25/16 at 17:30; Stop 07/26/16 at 11:41; Status DC Amiodarone HCl/ Dextrose (Cordarone) 518 ml @ 33.33 mls/ hr CONT PRN PRN IV SEE COMMENTS; Start 07/25/16 at 17:30; Status UNV Info 1 ea CONT PRN PRN MC SEE COMMENTS; Start 07/25/16 at 17:30 Info 1 ea 1 ea CONT PRN PRN MC SEE COMMENTS; Start 07/25/16 at 17:30 Magnesium Sulfate/ Dextrose (Magnesium Sulfate PREMIX 1GM) 100 ml @ 100 mls/hr PRN DAILY PRN IV FOR MAG < 2.2 Last administered on 07/27/16 10:59; Start 01/31 at 17:30 Famotidine (Pepcid) 20 mg BID IVP Last administered on 07/31/16 21:10; Start 07/25/16 at 21:00 Metoclopramide HCl (Reglan) 10 mg PRN Q6HRS PRN IV NAUSEA/VOMITING Last administered on 07/29/16 09:54; Start 07/25/16 at 17:30 Morphine Sulfate 2 mg PRN Q1HR PRN IV PAIN Last administered on 07/28/16 14:21 ; Start 07/25/16 at 17:30; Stop 07/29/16 at 13:38; Status DC Acetaminophen (Tylenol) 650 mg PRN Q4HRS PRN PO MILD PAIN / TEMP; Start at 17:30; Stop 07/29/16 at 13:38; Status DC Acetaminophen (Acetaminophen Supp) 650 mg PRN Q4HRS PRN SC MILD PAIN / TEMP; Start 07/25/16 at 17:30 Meperidine HCl 12.5 mg 12.5 mg PRN Q15MIN PRN IV SHIVERING; Start 07/25/16 at 17:30; Stop 07/29/16 at 13:38; Status DC Propofol (Diprivan) 100 ml @ 0 mls/hr CONT PRN PRN IV POSTOP SEDATION UNTIL EXTUBATE; Start 07/25/16 at 17:30; Stop 07/28/16 at 15:22; Status DC Aspirin (Ecotrin) 325 mg [id number] PO Last administered on 07/29/16 09:54; Start 07/26/16 at 08:00; Stop 07/29/16 at 09:59; Status DC Aspirin (Aspirin) 300 mg PRN DAILY PRN SC IF UNABLE TO TAKE PO; Start 07/25/16 at 17:30; Stop 07/26/16 at 12:00; Status DC Acetaminophen/ Hydrocodone Bitart (Lortab 5/325) 1 tab PRN Q4HRS PRN PO MILD PAIN; Start 07/25/16 at 17:30 Acetaminophen/ Hydrocodone Bitart 2 tab 2 tab PRN Q4HRS PRN PO MODERATE PAIN, SEVERE PAIN; Start 07/25/16 at 17:30 Cefazolin Sodium/ Dextrose 50 ml @ 100 mls/hr Q8H IV ; Start 07/25/16 at 18:00 ; Stop 07/25/16 at 21:42; Status DC Albumin Human 250 ml @ 62.5 mls/hr 1X ONCE IV Last administered on 07/27/16 17:52; Start 07/25/16 at 17:30; Stop 07/25/16 at 21:29; Status DC Midazolam HCl 100 ml @ As Directed STK-MED ONCE IV ; Start 07/25/16 at 18:06; Stop 07/25/16 at 18:07; Status DC Midazolam HCl 100 ml @ 0 mls/hr CONT PRN IV SEE I/O RECORD Last administered on 07/25/16 18:56; Start 07/25/16 at 18:15; Stop 07/26/16 at 08:59; Status DC Vancomycin HCl 1 gm/Sodium Chloride 250 ml @ 250 mls/hr 1X ONCE IV Last administered on 07/25/16 20:56; Start 07/25/16 at 18:15; Stop 07/25/16 at 19:14 ; Status DC Piperacillin Sod/ Tazobactam Sod/ Sodium Chloride (Zosyn/Iv Sodium Chloride 0.9 % 50ml) 50 ml @ 100 mls/hr Q6HRS IV Last administered on 07/31/16 05:32; Start 07/25/16 at 18:15; Stop 07/31/16 at 10:25; Status DC Midazolam HCl (Versed) 2 mg PRN Q20MIN PRN IV SEDATION; Start 07/25/16 at 18:15 ; Stop 07/25/16 at 18:39; Status DC Midazolam HCl 5 mg 5 mg PRN Q30MIN PRN IV SEDATION; Start 07/25/16 at 18:15; Stop 07/25/16 at 18:39; Status DC Vecuronium [place] 100 mg/ Dextrose 100 ml @ 0 mls/hr 1X ONCE IV Last administered on 07/25/16 19:43; Start 07/25/16 at 18:15; Stop 07/25/16 at 18:17 ; Status DC Midazolam HCl 100 ml @ 0 mls/hr CONT PRN IV SEE I/O RECORD Last administered on 07/28/16 19:40; Start 07/25/16 at 18:45 Dobutamine HCl/ Dextrose 250 ml @ 0 mls/hr CONT PRN IV SEE I/O RECORD Last administered on 07/29/16 03:10; Start 07/25/16 at 18:45; Stop 07/29/16 at 13:38 ; Status DC Potassium Chloride 50 ml @ 50 mls/hr Q1H IV Last administered on 07/25/16 22: 58; Start 07/25/16 at 21:00; Stop 07/25/16 at 23:59; Status DC Cefazolin Sodium/ Dextrose 50 ml @ 100 mls/hr Q8H IV Last administered on 07/27 05:34; Start 07/25/16 at 22:00; Stop 07/27/16 at 06:29; Status DC Heparin Sodium (Porcine) 34428 unit/Dextrose 512.5 ml @ 0 mls/hr Q0M ONCE IV Last administered on 07/25/16 22:21; Start 07/25/16 at 22:15; Stop 07/25/16 at 22:16; Status DC Vecuronium [place]/Dextrose (Norcuron) 100 ml @ 0 mls/hr CONT PRN IV SEE I/O RECORD Last administered on 07/26/16 01:07; Start 07/26/16 at 00:45; Stop 07/29 at 13:38; Status DC Dextrose 25 gm 25 gm 1X ONCE IV Last administered on 07/26/16 01:08; Start at 01:00; Stop 07/26/16 at 01:18; Status DC Amiodarone HCl/ Dextrose (Cordarone) 259 ml @ 17.26 mls/ hr CONT PRN IV SEE I/ O RECORD Last administered on 07/30/16 13:02; Start 07/26/16 at 06:45; Stop at 15:33; Status DC Cefazolin Sodium/ Dextrose 2 gm 2 gm STK-MED ONCE IV ; Start 07/25/16 at 11:00; Stop 07/26/16 at 08:53; Status DC Lactated Ringer's 500 ml @ 5,000 mls/hr PRN Q10MIN PRN IV CVP <14; Start 07/26 at 10:00; Stop 07/29/16 at 13:38; Status DC Fentanyl Citrate (Fentanyl 600 Mcg/[address] [employer]ACH[employer]PERATOR) 30 ml @ 0 mls/hr CONT PRN IV PROTOCOL Last administered on 07/31/16 09:12; Start 07/26/16 at 10:00; Stop at 13:31; Status DC Fentanyl Citrate (Fentanyl 2ml Vial) 25 mcg PRN Q1HR PRN IV COMM; Start at 10:00; Stop 07/29/16 at 13:38; Status DC Fentanyl Citrate (Fentanyl 2ml Vial) 50 mcg PRN Q1HR PRN IV COMM; Start at 10:00; Stop 07/29/16 at 13:38; Status DC Chlorhexidine Gluconate (Peridex) 15 ml BID MM Last administered on 07/31/16 21:12; Start 07/26/16 at 10:30 Sulfur Hexafluoride Microspheres (Lumason) 25 mg STK-MED ONCE IVP ; Start at 11:29; Stop 07/26/16 at 11:30; Status DC Aspirin 300 mg 300 mg DAILY SC Last administered on 07/28/16 07:55; Start 03/03 at 12:00; Stop 07/29/16 at 19:10; Status DC Potassium Chloride (KCl Premix 20meq) 50 ml @ 50 mls/hr 1X ONCE IV Last administered on 07/26/16 12:55; Start 07/26/16 at 12:00; Stop 07/26/16 at 12:59 ; Status DC Sulfur Hexafluoride Microspheres (Lumason) 25 mg 1X ONCE IVP Last administered on 07/26/16 11:45; Start 07/26/16 at 11:45; Stop 07/26/16 at 11:50 ; Status DC Multi-Ingred Cream/Lotion/Oil/ Oint (Artificial Tears Eye Oint) 1 adri BID OU Last administered on 08/01/16 08:44; Start 07/26/16 at 21:00 Ondansetron HCl (Zofran) 4 mg PRN Q6HRS PRN IV NAUSEA/VOMITING; Start 07/27/16 at 07:00; Stop 07/28/16 at 06:59; Status DC Fentanyl Citrate (Fentanyl 2ml Vial) 25 mcg PRN Q5MIN PRN IV MILD PAIN; Start 07/27/16 at 07:00; Stop 07/28/16 at 06:59; Status DC Fentanyl Citrate (Fentanyl 2ml Vial) 50 mcg PRN Q5MIN PRN IV MODERATE PAIN; Start 07/27/16 at 07:00; Stop 07/28/16 at 06:59; Status DC Morphine Sulfate 1 mg 1 mg PRN Q10MIN PRN IV SEVERE PAIN; Start 07/27/16 at 07: 00; Stop 07/28/16 at 06:59; Status DC Lactated Ringer's (Iv Lactated Ringers) 1,000 ml @ 30 mls/hr Q24H IV Last administered on 07/26/16 17:25; Start 07/27/16 at 07:00; Stop 07/27/16 at 18:59 ; Status DC Lidocaine HCl 2 ml PRN 1X PRN ID PRIOR TO IV START; Start 07/27/16 at 07:00; Stop 07/28/16 at 06:59; Status DC Hydromorphone HCl (Dilaudid) 0.5 mg PRN Q10MIN PRN IV SEV PAIN, Second choice; Start 07/27/16 at 07:00; Stop 07/28/16 at 06:59; Status DC Prochlorperazine Edisylate 5 mg 5 mg PACU PRN PRN IV NAUSEA, MRX1; Start at 07:00; Stop 07/28/16 at 06:59; Status DC Heparin Sodium (Porcine) 13410 unit/Dextrose 512.5 ml @ 0 mls/hr Q0M ONCE IV Last administered on 07/26/16 19:40; Start 07/26/16 at 18:30; Stop 07/26/16 at 18:31; Status DC Amiodarone HCl 150 mg/Dextrose 103 ml @ 618 mls/hr 1X ONCE IV Last administered on 07/26/16 19:25; Start 07/26/16 at 19:15; Stop 07/26/16 at 19:24 ; Status DC Norepinephrine Bitartrate 8 mg/ Sodium Chloride 258 ml @ 1.93 mls/hr CONT PRN IV SEE I/O RECORD Last administered on 07/28/16 04:46; Start 07/26/16 at 19:15 Amiodarone HCl 900 mg/Dextrose 518 ml @ 0 mls/hr CONT PRN IV PER PROTOCOL; Start 07/26/16 at 19:15; Stop 07/27/16 at 12:11; Status DC Milrinone Lactate/ Dextrose 100 ml @ 0 mls/hr CONT PRN IV SEE I/O RECORD Last administered on 07/26/16 20:03; Start 07/26/16 at 19:45; Stop 07/29/16 at 13:51 ; Status DC Calcium Chloride/ Sodium Chloride (Iv Sodium Chloride 0.9% 100ml) 120 ml @ 240 mls/hr 1X ONCE IV Last administered on 07/26/16 21:04; Start 07/26/16 at 21: 30; Stop 07/26/16 at 21:59; Status DC Digoxin 500 mcg 500 mcg 1X ONCE IV Last administered on 07/26/16 21:55; Start 07/26/16 at 21:45; Stop 07/26/16 at 21:46; Status DC Cefazolin Sodium/ Sodium Chloride (Ancef/Iv Sodium Chloride 0.9% 500ml Bag) 500 ml @ 500 mls/hr 1X PERIOP ONCE IRR Last administered on 07/27/16 14:37; Start 07/27/16 at 10:00; Stop 07/27/16 at 10:59; Status DC Vancomycin HCl (Vanco) 10 gm 1X ONCE CEMENT Last administered on 07/27/16 14: 37; Start 07/27/16 at 12:30; Stop 07/27/16 at 12:31; Status DC Rocuronium [place] (Zemuron) 100 mg STK-MED ONCE .ROUTE ; Start 07/27/16 at 12: 32; Stop 07/27/16 at 12:33; Status DC Lorazepam (Ativan) 2 mg STK-MED ONCE .ROUTE ; Start 07/27/16 at 14:13; Stop 04/02 at 14:14; Status DC Phenylephrine HCl 1 mg 1 mg STK-MED ONCE IV ; Start 07/27/16 at 14:18; Stop 04/02 at 14:19; Status DC Albumin Human (Plasmanate) 250 ml @ 62.5 mls/hr 1X ONCE IV Last administered on 07/27/16 17:52; Start 07/27/16 at 17:15; Stop 07/27/16 at 21:14; Status DC Sodium Bicarbonate 50 meq STK-MED ONCE .ROUTE ; Start 07/27/16 at 17:39; Stop at 17:40; Status DC Sodium Bicarbonate 50 meq 1X ONCE IV Last administered on 07/27/16 17:51; Start 07/27/16 at 18:00; Stop 07/27/16 at 18:01; Status DC Sodium Bicarbonate 50 meq 1X ONCE IV Last administered on 07/27/16 17:52; Start 07/27/16 at 18:00; Stop 07/27/16 at 18:01; Status DC Fentanyl Citrate (Fentanyl 2ml Vial) 25 mcg PRN Q5MIN PRN IV MILD PAIN; Start 07/28/16 at 07:00; Stop 07/29/16 at 06:59; Status DC Fentanyl Citrate (Fentanyl 2ml Vial) 50 mcg PRN Q5MIN PRN IV MODERATE PAIN; Start 07/28/16 at 07:00; Stop 07/29/16 at 06:59; Status DC Morphine Sulfate 1 mg 1 mg PRN Q10MIN PRN IV SEVERE PAIN; Start 07/28/16 at 07: 00; Stop 07/29/16 at 06:59; Status DC Lactated Ringer's (Iv Lactated Ringers) 1,000 ml @ 30 mls/hr Q24H IV Last administered on 07/28/16 06:49; Start 07/28/16 at 06:49; Stop 07/28/16 at 18:48 ; Status DC Lidocaine HCl 2 ml PRN 1X PRN ID PRIOR TO IV START; Start 07/28/16 at 07:00; Stop 07/29/16 at 06:59; Status DC Hydromorphone HCl (Dilaudid) 0.5 mg PRN Q10MIN PRN IV SEV PAIN, Second choice; Start 07/28/16 at 07:00; Stop 07/29/16 at 06:59; Status DC Rocuronium [place] 50 mg 50 mg STK-MED ONCE .ROUTE ; Start 07/28/16 at 07:27; Stop 07/28/16 at 07:28; Status DC Cefazolin Sodium/ Sodium Chloride (Ancef/Iv Sodium Chloride 0.9% 500ml Bag) 500 ml @ 500 mls/hr 1X PERIOP ONCE IRR Last administered on 07/28/16 09:25; Start 07/28/16 at 08:00; Stop 07/28/16 at 08:59; Status DC Cellulose 1 each STK-MED ONCE .ROUTE ; Start 07/28/16 at 07:42; Stop 07/28/16 at 07:43; Status DC Bupivacaine HCl/ Epinephrine Bitart 50 ml 50 ml STK-MED ONCE .ROUTE ; Start at 07:42; Stop 07/28/16 at 07:43; Status DC Heparin Sodium (Porcine)/Sodium Chloride (Heparin Sodium/ Iv Sodium Chloride 0.9 % 500ml Bag) 505 ml @ 505 mls/hr 1X PERIOP ONCE IRR Last administered on 07/28 10:19; Start 07/28/16 at 08:15; Stop 07/28/16 at 09:14; Status DC Lorazepam 2 mg 2 mg STK-MED ONCE .ROUTE ; Start 07/28/16 at 08:29; Stop at 08:30; Status DC Magnesium Sulfate/ Dextrose (Magnesium Sulfate PREMIX 1GM) 100 ml @ 100 mls/hr 1X ONCE IV Last administered on 07/28/16 13:09; Start 07/28/16 at 09:00; Stop 07/28/16 at 09:59; Status DC Vasopressin (Vasostrict) 20 unit STK-MED ONCE .ROUTE ; Start 07/28/16 at 09:03; Stop 07/28/16 at 09:04; Status DC Epinephrine HCl (Epinephrine Syringe) 1 mg STK-MED ONCE .ROUTE ; Start 07/28/16 at 09:09; Stop 07/28/16 at 09:10; Status DC Calcium Chloride 1,000 mg STK-MED ONCE IV ; Start 07/28/16 at 09:09; Stop at 09:10; Status DC Phenylephrine HCl 1 mg STK-MED ONCE IV ; Start 07/28/16 at 09:54; Stop 07/28/16 at 09:55; Status DC Sevoflurane 60 ml 60 ml STK-MED ONCE IH ; Start 07/28/16 at 09:54; Stop at 09:55; Status DC Epinephrine HCl/ Sodium Chloride (Adrenalin/Iv Sodium Chloride 0.9% 250ml) 254 ml @ 3.81 mls/hr 1X ONCE IV ; Start 07/28/16 at 10:00; Stop 07/29/16 at 19:10 ; Status DC Heparin Sodium (Porcine) 50339 unit 10,000 unit STK-MED ONCE .ROUTE ; Start at 09:57; Stop 07/28/16 at 09:58; Status DC Albumin Human (Plasmanate) 500 ml @ As Directed STK-MED ONCE IV ; Start at 09:57; Stop 07/28/16 at 09:58; Status DC Iohexol 100 ml 100 ml STK-MED ONCE .ROUTE ; Start 07/28/16 at 10:39; Stop at 10:40; Status DC Heparin Sodium/ Sodium Chloride 500 ml @ As Directed STK-MED ONCE .ROUTE ; Start 07/28/16 at 10:39; Stop 07/28/16 at 10:40; Status DC Iohexol 100 ml 100 ml STK-MED ONCE .ROUTE ; Start 07/28/16 at 10:43; Stop at 10:44; Status DC Heparin Sodium/ Sodium Chloride 500 ml @ As Directed STK-MED ONCE .ROUTE ; Start 07/28/16 at 11:21; Stop 07/28/16 at 11:22; Status DC Albuterol Sulfate (Ventolin Neb Soln) 2.5 mg RTQID NEB Last administered on 08:46; Start 07/28/16 at 12:00; Stop 07/30/16 at 17:05; Status DC Furosemide (Lasix) 40 mg 1X ONCE IVP Last administered on 07/28/16 13:16; Start 07/28/16 at 13:15; Stop 07/28/16 at 13:16; Status DC Furosemide (Lasix) 40 mg 1X ONCE IVP Last administered on 07/28/16 13:19; Start 07/28/16 at 14:00; Stop 07/28/16 at 14:01; Status DC Heparin Sodium/ Sodium Chloride 1000 unit 1,000 unit CONT PRN IV ART LINE FLUSH Last administered on 07/30/16 19:50; Start 07/28/16 at 14:45 Albumin Human 250 ml @ 62.5 mls/hr PRN Q1HR PRN IV SEE COMMENTS Last administered on 07/28/16 20:16; Start 07/28/16 at 15:15 Furosemide 100 mg/ Sodium Chloride 100 ml @ 5 mls/hr CONT PRN IV SEE I/O RECORD Last administered on 07/30/16 09:50; Start 07/28/16 at 15:30; Stop 07/31 at 13:31; Status DC Potassium Chloride 50 ml @ 50 mls/hr Q1H IV Last administered on 07/28/16 19: 39; Start 07/28/16 at 18:30; Stop 07/28/16 at 20:29; Status DC Potassium Chloride (KCl Premix 20meq) 50 ml @ 50 mls/hr Q1H IV Last administered on 07/29/16 09:36; Start 07/29/16 at 07:00; Stop 07/29/16 at 08:59 ; Status DC Lorazepam (Ativan) 2 mg STK-MED ONCE .ROUTE ; Start 07/28/16 at 08:30; Stop at 08:16; Status DC Aspirin (Arti Aspirin) 325 mg DAILYWBKFT PO Last administered on 08/01/16 08: 00; Start 07/30/16 at 08:00 Docusate Sodium 100 mg 100 mg DAILY PO Last administered on 07/31/16 07:59; Start 07/30/16 at 09:00; Stop 07/31/16 at 11:00; Status DC Dobutamine HCl/ Dextrose 250 ml @ 12.1 mls/hr CONT PRN IV PER PROTOCOL Last administered on 07/31/16 19:57; Start 07/29/16 at 13:30 Potassium Chloride 50 ml @ 50 mls/hr Q1H IV Last administered on 07/29/16 22: 39; Start 07/29/16 at 20:00; Stop 07/29/16 at 22:59; Status DC Potassium Chloride (KCl Premix 20meq) 50 ml @ 50 mls/hr Q1H IV Last administered on 07/30/16 09:19; Start 07/30/16 at 07:00; Stop 07/30/16 at 08:59 ; Status DC Ipratropium [place] (Atrovent) 0.5 mg RTQID NEB Last administered on 08/01/16 13:07; Start 07/30/16 at 12:30 Digoxin 500 mcg 500 mcg 1X ONCE IV Last administered on 07/30/16 13:01; Start 07/30/16 at 12:15; Stop 07/30/16 at 12:19; Status DC Dexmedetomidine HCl/Sodium Chloride (Precedex/Iv Sodium Chloride 0.9% 50ml) 50 ml @ 0 mls/hr CONT PRN IV PER PROTOCOL Last administered on 07/30/16 15:00; Start 07/30/16 at 13:30 Atropine Sulfate 0.5 mg PRN Q5MIN PRN IV SEE COMMENTS; Start 07/30/16 at 13:30 Amiodarone HCl (Cordarone) 400 mg ONCE ONCE PO Last administered on 07/30/16 15:01; Start 07/30/16 at 13:30; Stop 07/30/16 at 13:46; Status DC Amiodarone HCl (Cordarone) 400 mg BID PO Last administered on 08/01/16 08:42; Start 07/30/16 at 21:00 Digoxin 125 mcg 125 mcg DAILY IV Last administered on 08/01/16 09:00; Start at 09:00 Albumin Human (Albuminar) 50 ml @ 50 mls/hr 1X ONCE IV Last administered on 16:26; Start 07/30/16 at 16:30; Stop 07/30/16 at 17:29; Status DC Ibuprofen (Motrin) 200 mg PRN Q6HRS PRN PO fever; Start 07/30/16 at 19:45; Stop 08/01/16 at 12:22; Status DC Metoprolol Tartrate (Lopressor) 2.5 mg 1X ONCE IVP Last administered on 20:23; Start 07/30/16 at 20:30; Stop 07/30/16 at 20:31; Status DC Metoprolol Tartrate 5 mg 5 mg PRN Q2HR PRN IVP HYPERTENSION Last administered on 07/31/16 08:04; Start 07/30/16 at 22:30 Potassium Chloride (KCl Premix 20meq) 50 ml @ 50 mls/hr Q1H IV Last administered on 07/31/16 09:04; Start 07/31/16 at 07:00; Stop 07/31/16 at 08:59 ; Status DC Metoprolol Tartrate (Lopressor) 12.5 mg BID NG Last administered on 08/01/16 08:44; Start 07/31/16 at 10:00 Docusate Sodium (Colace Solution) 100 mg PRN DAILY PRN PO constipation Last administered on 08/01/16 08:40; Start 07/31/16 at 11:00 Hydralazine HCl (Apresoline) 10 mg PRN Q2HRS PRN IVP ELEVATED BP, SEE COMMENTS ; Start 07/31/16 at 13:30 Fentanyl Citrate (Fentanyl 2ml Vial) 50 mcg PRN Q2HR PRN IV PAIN Last administered on 07/31/16 18:03; Start 07/31/16 at 13:45 Furosemide (Lasix) 40 mg TID IVP Last administered on 08/01/16 08:41; Start at 14:00 Alteplase, Recombinant (Cathflo) 2 mg 1X ONCE INT CAT Last administered on 23:34; Start 07/31/16 at 23:15; Stop 07/31/16 at 23:16; Status DC Active Scripts Active Reported Amlodipine Besylate 5 Mg Tablet 5 Mg PO DAILY Pradaxa (Dabigatran Etexilate Mesylate) 150 Mg Capsule 1 Cap PO BID Metoprolol Succinate ( Xl ) (Metoprolol Succinate) 100 Mg Tab.er.24h 1 Tab PO DAILY Allergies Allergies: Coded Allergies: No Known Drug Allergies (Unverified , 07/27/16) Vitals VITALS Vital Signs Date Time Temp Pulse Resp B/P Pulse Ox O2 Delivery O2 Flow Rate FiO2 08/01/16 13:08 99 Ventilator 08/01/16 11:00 114 16 08/01/16 07:00 99.6 99.6 Labs Labs Laboratory Tests Test 07/31/16 05:30 07/31/16 08:00 07/31/16 13:35 07/31/16 14:30 White Blood Count 11.7x10^3/uL (4.0-11.0) Red Blood Count 2.47x10^6/uL (4.30-5.70) Hemoglobin 7.7g/dL (13.0-17.5) Hematocrit 23.1% (39.0-53.0) Mean Corpuscular Volume 94fL (79-100) Mean Corpuscular Hemoglobin 31pg (25-35) Mean Corpuscular Hemoglobin Concent 33g/dL (31-37) Red Cell Distribution Width 15.0% (11.5-14.5) Platelet Count 86x10^3/uL (140-400) Neutrophils (%) (Auto) 82% (31-73) Lymphocytes (%) (Auto) 10% (24-48) Monocytes (%) (Auto) 6% (0-9) Eosinophils (%) (Auto) 1% (0-3) Basophils (%) (Auto) 0% (0-3) Neutrophils # (Auto) 9.6x10^3uL (1.8-7.7) Lymphocytes # (Auto) 1.2x10^3/uL (1.0-4.8) Monocytes # (Auto) 0.7x10^3/uL (0.0-1.1) Eosinophils # (Auto) 0.1x10^3/uL (0.0-0.7) Basophils # (Auto) 0.0x10^3/uL (0.0-0.2) Sodium Level 146mmol/L (136-145) Potassium Level 3.8mmol/L (3.5-5.1) Chloride Level 110mmol/L (98-107) Carbon Dioxide Level 31mmol/L (21-32) Anion Gap 5 (6-14) Blood Urea Nitrogen 32mg/dL (8-26) Creatinine 1.2mg/dL (0.7-1.3) Estimated GFR (Cockcroft-Gault) 62.4 BUN/Creatinine Ratio 27 (6-20) Glucose Level 152mg/dL (70-99) Calcium Level 7.3mg/dL (8.5-10.1) Magnesium Level 2.8mg/dL (1.8-2.4) Total Bilirubin 8.0mg/dL (0.2-1.0) Aspartate Amino Transf (AST/SGOT) 254U/L (15-37) Alanine Aminotransferase (ALT/SGPT) 470U/L (16-63) Alkaline Phosphatase 144U/L (46-116) Total Protein 4.7g/dL (6.4-8.2) Albumin 2.4g/dL (3.4-5.0) Albumin/Globulin Ratio 1.0 (1.0-1.7) O2 Saturation 97% (92-99) Arterial Blood pH 7.56 (7.35-7.45) Arterial Blood pCO2 at Patient Temp 31mmHg (35-46) Arterial Blood pO2 at Patient Temp 104mmHg (75-108) Arterial Blood HCO3 27mmol/L (21-28) Arterial Blood Base Excess 4mmol/L (-3-3) Prothrombin Time 16.0SEC (11.7-14.0) Prothromb Time International Ratio 1.4 (0.8-1.1) Activated Partial Thromboplast Time 30SEC (24-38) Urine Collection Type U cath Urine Color Keke Urine Clarity Clear Urine pH 8.5 Urine Specific [place] 1.020 Urine Protein Negativemg/dL (NEG-TRACE) Urine Glucose (UA) Negativemg/dL (NEG) Urine Ketones (Stick) Negativemg/dL (NEG) Urine Blood Negative (NEG) Urine Nitrite Negative (NEG) Urine Bilirubin Small (NEG) Urine Urobilinogen Dipstick 1.0mg/dL (0.2 mg/dL) Urine Leukocyte Esterase Negative (NEG) Urine RBC 6-10/HPF (0-2) Urine WBC 1-4/HPF (0-4) Urine Bacteria 0/HPF (0-FEW) Urine Hyaline Casts Few/HPF Test 08/01/16 06:20 08/01/16 08:55 White Blood Count 12.5x10^3/uL (4.0-11.0) Red Blood Count 2.77x10^6/uL (4.30-5.70) Hemoglobin 8.8g/dL (13.0-17.5) Hematocrit 26.0% (39.0-53.0) Mean Corpuscular Volume 94fL (79-100) Mean Corpuscular Hemoglobin 32pg (25-35) Mean Corpuscular Hemoglobin Concent 34g/dL (31-37) Red Cell Distribution Width 15.6% (11.5-14.5) Platelet Count 106x10^3/uL (140-400) Neutrophils (%) (Auto) 80% (31-73) Lymphocytes (%) (Auto) 12% (24-48) Monocytes (%) (Auto) 6% (0-9) Eosinophils (%) (Auto) 1% (0-3) Basophils (%) (Auto) 0% (0-3) Neutrophils # (Auto) 10.0x10^3uL (1.8-7.7) Lymphocytes # (Auto) 1.5x10^3/uL (1.0-4.8) Monocytes # (Auto) 0.8x10^3/uL (0.0-1.1) Eosinophils # (Auto) 0.1x10^3/uL (0.0-0.7) Basophils # (Auto) 0.0x10^3/uL (0.0-0.2) Segmented Neutrophils % 70% (35-66) Band Neutrophils % 18% (0-9) Lymphocytes % 7% (24-48) Monocytes % 2% (0-10) Eosinophils % 1% (0-5) Metamyelocytes % 2% (0-0) Nucleated Red Blood Cells 5 Platelet Estimate Decreased (ADEQUATE) Polychromasia Slight Basophilic Stippling Present Anisocytosis Slight Sodium Level 148mmol/L (136-145) Potassium Level 4.1mmol/L (3.5-5.1) Chloride Level 111mmol/L (98-107) Carbon Dioxide Level 29mmol/L (21-32) Anion Gap 8 (6-14) Blood Urea Nitrogen 33mg/dL (8-26) Creatinine 1.1mg/dL (0.7-1.3) Estimated GFR (Cockcroft-Gault) 69.0 BUN/Creatinine Ratio 30 (6-20) Glucose Level 143mg/dL (70-99) Calcium Level 7.6mg/dL (8.5-10.1) Magnesium Level 2.7mg/dL (1.8-2.4) Total Bilirubin 6.6mg/dL (0.2-1.0) Direct Bilirubin 4.9mg/dL (0.0-0.2) Aspartate Amino Transf (AST/SGOT) 166U/L (15-37) Alanine Aminotransferase (ALT/SGPT) 411U/L (16-63) Alkaline Phosphatase 208U/L (46-116) Total Protein 5.1g/dL (6.4-8.2) Albumin 2.4g/dL (3.4-5.0) Albumin/Globulin Ratio 0.9 (1.0-1.7) O2 Saturation 96% (92-99) Arterial Blood pH 7.49 (7.35-7.45) Arterial Blood pCO2 at Patient Temp 34mmHg (35-46) Arterial Blood pO2 at Patient Temp 82mmHg (75-108) Arterial Blood HCO3 25mmol/L (21-28) Arterial Blood Base Excess 2mmol/L (-3-3) FiO2 40 Laboratory Tests Test 07/31/16 14:30 08/01/16 06:20 08/01/16 08:55 Urine Collection Type U cath Urine Color Keke Urine Clarity Clear Urine pH 8.5 Urine Specific [place] 1.020 Urine Protein Negativemg/dL (NEG-TRACE) Urine Glucose (UA) Negativemg/dL (NEG) Urine Ketones (Stick) Negativemg/dL (NEG) Urine Blood Negative (NEG) Urine Nitrite Negative (NEG) Urine Bilirubin Small (NEG) Urine Urobilinogen Dipstick 1.0mg/dL (0.2 mg/dL) Urine Leukocyte Esterase Negative (NEG) Urine RBC 6-10/HPF (0-2) Urine WBC 1-4/HPF (0-4) Urine Bacteria 0/HPF (0-FEW) Urine Hyaline Casts Few/HPF White Blood Count 12.5x10^3/uL (4.0-11.0) Red Blood Count 2.77x10^6/uL (4.30-5.70) Hemoglobin 8.8g/dL (13.0-17.5) Hematocrit 26.0% (39.0-53.0) Mean Corpuscular Volume 94fL (79-100) Mean Corpuscular Hemoglobin 32pg (25-35) Mean Corpuscular Hemoglobin Concent 34g/dL (31-37) Red Cell Distribution Width 15.6% (11.5-14.5) Platelet Count 106x10^3/uL (140-400) Neutrophils (%) (Auto) 80% (31-73) Lymphocytes (%) (Auto) 12% (24-48) Monocytes (%) (Auto) 6% (0-9) Eosinophils (%) (Auto) 1% (0-3) Basophils (%) (Auto) 0% (0-3) Neutrophils # (Auto) 10.0x10^3uL (1.8-7.7) Lymphocytes # (Auto) 1.5x10^3/uL (1.0-4.8) Monocytes # (Auto) 0.8x10^3/uL (0.0-1.1) Eosinophils # (Auto) 0.1x10^3/uL (0.0-0.7) Basophils # (Auto) 0.0x10^3/uL (0.0-0.2) Segmented Neutrophils % 70% (35-66) Band Neutrophils % 18% (0-9) Lymphocytes % 7% (24-48) Monocytes % 2% (0-10) Eosinophils % 1% (0-5) Metamyelocytes % 2% (0-0) Nucleated Red Blood Cells 5 Platelet Estimate Decreased (ADEQUATE) Polychromasia Slight Basophilic Stippling Present Anisocytosis Slight Sodium Level 148mmol/L (136-145) Potassium Level 4.1mmol/L (3.5-5.1) Chloride Level 111mmol/L (98-107) Carbon Dioxide Level 29mmol/L (21-32) Anion Gap 8 (6-14) Blood Urea Nitrogen 33mg/dL (8-26) Creatinine 1.1mg/dL (0.7-1.3) Estimated GFR (Cockcroft-Gault) 69.0 BUN/Creatinine Ratio 30 (6-20) Glucose Level 143mg/dL (70-99) Calcium Level 7.6mg/dL (8.5-10.1) Magnesium Level 2.7mg/dL (1.8-2.4) Total Bilirubin 6.6mg/dL (0.2-1.0) Direct Bilirubin 4.9mg/dL (0.0-0.2) Aspartate Amino Transf (AST/SGOT) 166U/L (15-37) Alanine Aminotransferase (ALT/SGPT) 411U/L (16-63) Alkaline Phosphatase 208U/L (46-116) Total Protein 5.1g/dL (6.4-8.2) Albumin 2.4g/dL (3.4-5.0) Albumin/Globulin Ratio 0.9 (1.0-1.7) O2 Saturation 96% (92-99) Arterial Blood pH 7.49 (7.35-7.45) Arterial Blood pCO2 at Patient Temp 34mmHg (35-46) Arterial Blood pO2 at Patient Temp 82mmHg (75-108) Arterial Blood HCO3 25mmol/L (21-28) Arterial Blood Base Excess 2mmol/L (-3-3) FiO2 40 OLGA LOPEZ MD Aug 01, 2016 13:52
--- NOTE | 2016-08-01 14:28 | PDOC ---
PULMONARY PROGRESS NOTES Subjective PT MOVING EXT NOT FOLLOW COMMANDS ON AC MODE Vitals Vital Signs Date Time Temp Pulse Resp B/P Pulse Ox O2 Delivery O2 Flow Rate FiO2 08/01/16 13:08 99 Ventilator 08/01/16 11:00 114 16 08/01/16 07:00 99.6 99.6 HEENT: Other (nc at perrl orally intubated nose clease. neck, no lap thyromegaly) Lungs: Clear Cardiovascular: Other (tachy irregular) Abdomen: Soft, Non-tender, Other Extremities: Other (DECREASE EDEMA) Skin: Warm Labs Laboratory Tests Test 07/31/16 05:30 07/31/16 08:00 07/31/16 13:35 07/31/16 14:30 White Blood Count 11.7x10^3/uL (4.0-11.0) Red Blood Count 2.47x10^6/uL (4.30-5.70) Hemoglobin 7.7g/dL (13.0-17.5) Hematocrit 23.1% (39.0-53.0) Mean Corpuscular Volume 94fL (79-100) Mean Corpuscular Hemoglobin 31pg (25-35) Mean Corpuscular Hemoglobin Concent 33g/dL (31-37) Red Cell Distribution Width 15.0% (11.5-14.5) Platelet Count 86x10^3/uL (140-400) Neutrophils (%) (Auto) 82% (31-73) Lymphocytes (%) (Auto) 10% (24-48) Monocytes (%) (Auto) 6% (0-9) Eosinophils (%) (Auto) 1% (0-3) Basophils (%) (Auto) 0% (0-3) Neutrophils # (Auto) 9.6x10^3uL (1.8-7.7) Lymphocytes # (Auto) 1.2x10^3/uL (1.0-4.8) Monocytes # (Auto) 0.7x10^3/uL (0.0-1.1) Eosinophils # (Auto) 0.1x10^3/uL (0.0-0.7) Basophils # (Auto) 0.0x10^3/uL (0.0-0.2) Sodium Level 146mmol/L (136-145) Potassium Level 3.8mmol/L (3.5-5.1) Chloride Level 110mmol/L (98-107) Carbon Dioxide Level 31mmol/L (21-32) Anion Gap 5 (6-14) Blood Urea Nitrogen 32mg/dL (8-26) Creatinine 1.2mg/dL (0.7-1.3) Estimated GFR (Cockcroft-Gault) 62.4 BUN/Creatinine Ratio 27 (6-20) Glucose Level 152mg/dL (70-99) Calcium Level 7.3mg/dL (8.5-10.1) Magnesium Level 2.8mg/dL (1.8-2.4) Total Bilirubin 8.0mg/dL (0.2-1.0) Aspartate Amino Transf (AST/SGOT) 254U/L (15-37) Alanine Aminotransferase (ALT/SGPT) 470U/L (16-63) Alkaline Phosphatase 144U/L (46-116) Total Protein 4.7g/dL (6.4-8.2) Albumin 2.4g/dL (3.4-5.0) Albumin/Globulin Ratio 1.0 (1.0-1.7) O2 Saturation 97% (92-99) Arterial Blood pH 7.56 (7.35-7.45) Arterial Blood pCO2 at Patient Temp 31mmHg (35-46) Arterial Blood pO2 at Patient Temp 104mmHg (75-108) Arterial Blood HCO3 27mmol/L (21-28) Arterial Blood Base Excess 4mmol/L (-3-3) Prothrombin Time 16.0SEC (11.7-14.0) Prothromb Time International Ratio 1.4 (0.8-1.1) Activated Partial Thromboplast Time 30SEC (24-38) Urine Collection Type U cath Urine Color Keke Urine Clarity Clear Urine pH 8.5 Urine Specific [place] 1.020 Urine Protein Negativemg/dL (NEG-TRACE) Urine Glucose (UA) Negativemg/dL (NEG) Urine Ketones (Stick) Negativemg/dL (NEG) Urine Blood Negative (NEG) Urine Nitrite Negative (NEG) Urine Bilirubin Small (NEG) Urine Urobilinogen Dipstick 1.0mg/dL (0.2 mg/dL) Urine Leukocyte Esterase Negative (NEG) Urine RBC 6-10/HPF (0-2) Urine WBC 1-4/HPF (0-4) Urine Bacteria 0/HPF (0-FEW) Urine Hyaline Casts Few/HPF Test 08/01/16 06:20 08/01/16 08:55 White Blood Count 12.5x10^3/uL (4.0-11.0) Red Blood Count 2.77x10^6/uL (4.30-5.70) Hemoglobin 8.8g/dL (13.0-17.5) Hematocrit 26.0% (39.0-53.0) Mean Corpuscular Volume 94fL (79-100) Mean Corpuscular Hemoglobin 32pg (25-35) Mean Corpuscular Hemoglobin Concent 34g/dL (31-37) Red Cell Distribution Width 15.6% (11.5-14.5) Platelet Count 106x10^3/uL (140-400) Neutrophils (%) (Auto) 80% (31-73) Lymphocytes (%) (Auto) 12% (24-48) Monocytes (%) (Auto) 6% (0-9) Eosinophils (%) (Auto) 1% (0-3) Basophils (%) (Auto) 0% (0-3) Neutrophils # (Auto) 10.0x10^3uL (1.8-7.7) Lymphocytes # (Auto) 1.5x10^3/uL (1.0-4.8) Monocytes # (Auto) 0.8x10^3/uL (0.0-1.1) Eosinophils # (Auto) 0.1x10^3/uL (0.0-0.7) Basophils # (Auto) 0.0x10^3/uL (0.0-0.2) Segmented Neutrophils % 70% (35-66) Band Neutrophils % 18% (0-9) Lymphocytes % 7% (24-48) Monocytes % 2% (0-10) Eosinophils % 1% (0-5) Metamyelocytes % 2% (0-0) Nucleated Red Blood Cells 5 Platelet Estimate Decreased (ADEQUATE) Polychromasia Slight Basophilic Stippling Present Anisocytosis Slight Sodium Level 148mmol/L (136-145) Potassium Level 4.1mmol/L (3.5-5.1) Chloride Level 111mmol/L (98-107) Carbon Dioxide Level 29mmol/L (21-32) Anion Gap 8 (6-14) Blood Urea Nitrogen 33mg/dL (8-26) Creatinine 1.1mg/dL (0.7-1.3) Estimated GFR (Cockcroft-Gault) 69.0 BUN/Creatinine Ratio 30 (6-20) Glucose Level 143mg/dL (70-99) Calcium Level 7.6mg/dL (8.5-10.1) Magnesium Level 2.7mg/dL (1.8-2.4) Total Bilirubin 6.6mg/dL (0.2-1.0) Direct Bilirubin 4.9mg/dL (0.0-0.2) Aspartate Amino Transf (AST/SGOT) 166U/L (15-37) Alanine Aminotransferase (ALT/SGPT) 411U/L (16-63) Alkaline Phosphatase 208U/L (46-116) Total Protein 5.1g/dL (6.4-8.2) Albumin 2.4g/dL (3.4-5.0) Albumin/Globulin Ratio 0.9 (1.0-1.7) O2 Saturation 96% (92-99) Arterial Blood pH 7.49 (7.35-7.45) Arterial Blood pCO2 at Patient Temp 34mmHg (35-46) Arterial Blood pO2 at Patient Temp 82mmHg (75-108) Arterial Blood HCO3 25mmol/L (21-28) Arterial Blood Base Excess 2mmol/L (-3-3) FiO2 40 Laboratory Tests Test 07/31/16 14:30 08/01/16 06:20 08/01/16 08:55 Urine Collection Type U cath Urine Color Keke Urine Clarity Clear Urine pH 8.5 Urine Specific [place] 1.020 Urine Protein Negativemg/dL (NEG-TRACE) Urine Glucose (UA) Negativemg/dL (NEG) Urine Ketones (Stick) Negativemg/dL (NEG) Urine Blood Negative (NEG) Urine Nitrite Negative (NEG) Urine Bilirubin Small (NEG) Urine Urobilinogen Dipstick 1.0mg/dL (0.2 mg/dL) Urine Leukocyte Esterase Negative (NEG) Urine RBC 6-10/HPF (0-2) Urine WBC 1-4/HPF (0-4) Urine Bacteria 0/HPF (0-FEW) Urine Hyaline Casts Few/HPF White Blood Count 12.5x10^3/uL (4.0-11.0) Red Blood Count 2.77x10^6/uL (4.30-5.70) Hemoglobin 8.8g/dL (13.0-17.5) Hematocrit 26.0% (39.0-53.0) Mean Corpuscular Volume 94fL (79-100) Mean Corpuscular Hemoglobin 32pg (25-35) Mean Corpuscular Hemoglobin Concent 34g/dL (31-37) Red Cell Distribution Width 15.6% (11.5-14.5) Platelet Count 106x10^3/uL (140-400) Neutrophils (%) (Auto) 80% (31-73) Lymphocytes (%) (Auto) 12% (24-48) Monocytes (%) (Auto) 6% (0-9) Eosinophils (%) (Auto) 1% (0-3) Basophils (%) (Auto) 0% (0-3) Neutrophils # (Auto) 10.0x10^3uL (1.8-7.7) Lymphocytes # (Auto) 1.5x10^3/uL (1.0-4.8) Monocytes # (Auto) 0.8x10^3/uL (0.0-1.1) Eosinophils # (Auto) 0.1x10^3/uL (0.0-0.7) Basophils # (Auto) 0.0x10^3/uL (0.0-0.2) Segmented Neutrophils % 70% (35-66) Band Neutrophils % 18% (0-9) Lymphocytes % 7% (24-48) Monocytes % 2% (0-10) Eosinophils % 1% (0-5) Metamyelocytes % 2% (0-0) Nucleated Red Blood Cells 5 Platelet Estimate Decreased (ADEQUATE) Polychromasia Slight Basophilic Stippling Present Anisocytosis Slight Sodium Level 148mmol/L (136-145) Potassium Level 4.1mmol/L (3.5-5.1) Chloride Level 111mmol/L (98-107) Carbon Dioxide Level 29mmol/L (21-32) Anion Gap 8 (6-14) Blood Urea Nitrogen 33mg/dL (8-26) Creatinine 1.1mg/dL (0.7-1.3) Estimated GFR (Cockcroft-Gault) 69.0 BUN/Creatinine Ratio 30 (6-20) Glucose Level 143mg/dL (70-99) Calcium Level 7.6mg/dL (8.5-10.1) Magnesium Level 2.7mg/dL (1.8-2.4) Total Bilirubin 6.6mg/dL (0.2-1.0) Direct Bilirubin 4.9mg/dL (0.0-0.2) Aspartate Amino Transf (AST/SGOT) 166U/L (15-37) Alanine Aminotransferase (ALT/SGPT) 411U/L (16-63) Alkaline Phosphatase 208U/L (46-116) Total Protein 5.1g/dL (6.4-8.2) Albumin 2.4g/dL (3.4-5.0) Albumin/Globulin Ratio 0.9 (1.0-1.7) O2 Saturation 96% (92-99) Arterial Blood pH 7.49 (7.35-7.45) Arterial Blood pCO2 at Patient Temp 34mmHg (35-46) Arterial Blood pO2 at Patient Temp 82mmHg (75-108) Arterial Blood HCO3 25mmol/L (21-28) Arterial Blood Base Excess 2mmol/L (-3-3) FiO2 40 Medications Active Scripts Medications Dose Route/Sig Days Date Category Amlodipine Besylate 5 Mg Tablet 5 Mg PO DAILY 07/20/16 Reported Pradaxa (Dabigatran Etexilate Mesylate) 150 Mg Capsule 1 Cap PO BID 07/20/16 Reported Metoprolol Succinate ( Xl ) (Metoprolol Succinate) 100 Mg Tab.er.24h 1 Tab PO DAILY 07/20/16 Reported Comments cxr reviewed, Stable positioning of lines and tubes, as detailed above. Bilateral perihilar opacities are similar to the previous exam Impression . 1. Expected respiratory failure, status post coronary artery bypass grafting. 2. Cardiogenic shock. 3. Early post-myocardial infarction complicated with ventricular fibrillation leading to cardiogenic shock. 4. Status post implantation of Impella from mechanical circulating support. 5. 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 6. Tobacco use in remission. Spirometry revealed an FEV1, which was 3.2 liters preoperatively. 7. Nutrition, currently on tube feeding. 8. History of hypertension. 9. Severe cardiomyopathy ejection fraction 20%. 10. Peripheral artery disease. 11. Atrial fibrillation. 12. Encephalopathy multifactorial Plan . d/w Dr Stanford, may need a ttrach will continue to trial once mental status improves 1. elevated resp rate, may need prn sedation, rec Haldol 2. Continue nutritional support with tube feeding. 3. titrate pressors 4. Diurese, currently on IV Lasix 5. Continue empiric antibiotics. 6. Continue IV digoxin. d/w VANESSA GREY MD Aug 01, 2016 14:27
--- NOTE | 2016-08-01 14:44 | RAD ---
Indication change in mental status. Post bypass procedure. Noncontrast images of the head were obtained. No prior imaging of the head is available. An acute calvarial finding is not seen. There is substantial opacification of the right maxillary sinus and significant opacification of the sphenoid sinus. These findings suggest sinusitis. There is a small, extra-axial, hyperdense fluid collection posteriorly near the right hemispheric vertex. It is uncertain whether this reflects a small epidural hematoma or subdural hematoma. Maximal thickness is approximately 6 mm. There is no significant mass effect. A parenchymal finding is not seen. Findings were communicated to Caroline, the ICU nurse caring for the patient, at the time of dictation IMPRESSION: Small extra-axial fluid collection posteriorly near the right hemispheric vertex consistent with a small area of bleeding. Sinusitis PQRS Compliance Statement: One or more of the following individualized dose reduction techniques were utilized for this examination: 1. Automated exposure control 2. Adjustment of the mA and/or kV according to patient size 3. Use of iterative reconstruction technique
--- NOTE | 2016-08-01 16:10 | PDOC2 ---
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 Muse Source Source: Caregiver, Chart review History of Present Illness History of Present Illness The patient is a 56-year-old right-handed male admitted [address] elevation myocardial infarction. He had coronary artery bypass surgery with postoperative cardiogenic shock one week ago and he required a left ventricular assist device with the wound left open. He is doing better, is awake, but not following commands. 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 There is no history of neuropathy, stroke, seizure, or head injury. He does have long- standing atrial fibrillation Past Medical History Cardiovascular: AFIB, CAD, HTN Past Surgical History Past Surgical History: CABG (this admission) Family History Family History: CAD Social History Social History , one half pack of cigarettes per day, rare alcohol Current Medications Current Medications Current Medications Nitroglycerin 0.4 mg 0.4 mg PRN Q5MIN PRN SL CP RATING > 1/10; Start 07/20/16 at 09:45; Stop 07/20/16 at 15:05; Status DC Nitroglycerin/ Dextrose (Nitroglycerin Drip) 250 ml @ 3 mls/hr 1X ONCE IV Last administered on 07/20/16 10:02; Start 07/20/16 at 10:30; Stop 07/23/16 at 21: 49; Status DC Morphine Sulfate 2 mg PRN Q15MIN PRN IV/SQ PAIN GREATER THAN 3/10; Start at 09:45; Stop 07/21/16 at 09:44; Status DC Ondansetron HCl (Zofran) 4 mg PRN Q8HRS PRN IV NAUSEA/VOMITING; Start 07/20/16 at 12:30; Stop 07/20/16 at 13:36; Status DC Morphine Sulfate 2 mg 2 mg PRN Q2HR PRN IV PAIN; Start 07/20/16 at 12:30; Stop 07/21/16 at 12:29; Status DC Heparin Sodium/ Dextrose 500 ml @ 0 mls/hr CONT PRN IV . Last administered on 10:32; Start 07/20/16 at 13:00; Stop 07/21/16 at 14:50; Status DC Metoprolol Tartrate (Lopressor) 5 mg Q6HRS IVP ; Start 07/20/16 at 13:00; Stop at 14:53; Status DC Aspirin (Ecotrin) 325 mg [id number] PO Last administered on 07/21/16 08:11; Start 07/20/16 at 13:00; Stop 07/21/16 at 17:20; Status DC Ondansetron HCl (Zofran) 4 mg PRN Q6HRS PRN IV NAUSEA/VOMITING; Start 07/20/16 at 13:35; Stop 07/26/16 at 11:41; Status DC Acetaminophen (Tylenol) 500 mg PRN Q6HRS PRN PO MILD PAIN / TEMP Last administered on 07/29/16 09:55; Start 07/20/16 at 13:45; Stop 07/29/16 at 13:38 ; Status DC Docusate Sodium (Colace) 100 mg DAILY PO Last administered on 07/29/16 09:54; Start 07/20/16 at 15:00; Stop 07/29/16 at 10:03; Status DC Iohexol 100 ml 100 ml STK-MED ONCE .ROUTE ; Start 07/20/16 at 12:40; Stop at 13:44; Status DC Heparin Sodium/ Sodium Chloride 1,000 ml @ As Directed STK-MED ONCE .ROUTE ; Start 07/20/16 at 12:41; Stop 07/20/16 at 13:44; Status DC Lidocaine HCl 20 ml STK-MED ONCE .ROUTE ; Start 07/20/16 at 12:41; Stop 07/20/16 at 13:44; Status DC Fentanyl Citrate (Fentanyl 2ml Vial) 100 mcg STK-MED ONCE .ROUTE ; Start at 13:42; Stop 07/20/16 at 13:45; Status DC Midazolam HCl (Versed) 2 mg STK-MED ONCE .ROUTE ; Start 07/20/16 at 13:42; Stop 07/20/16 at 13:45; Status DC Heparin Sodium/ Sodium Chloride 1,000 unit 1X ONCE IART Last administered on 14:29; Start 07/20/16 at 14:00; Stop 07/20/16 at 14:01; Status DC Heparin Sodium/ Sodium Chloride 1,000 unit 1X ONCE IART Last administered on 14:29; Start 07/20/16 at 14:00; Stop 07/20/16 at 14:01; Status DC Midazolam HCl (Versed) 2 mg 1X ONCE IV Last administered on 07/20/16 14:28; Start 07/20/16 at 14:00; Stop 07/20/16 at 14:01; Status DC Fentanyl Citrate (Fentanyl 2ml Vial) 100 mcg 1X ONCE IV Last administered on 14:28; Start 07/20/16 at 14:00; Stop 07/20/16 at 14:01; Status DC Iohexol (Omnipaque 300 Mg/ml) 100 ml 1X ONCE IART Last administered on 14:29; Start 07/20/16 at 14:00; Stop 07/20/16 at 14:01; Status DC Lidocaine HCl 20 ml 1X ONCE IJ Last administered on 07/20/16 14:29; Start 07/20 at 14:00; Stop 07/20/16 at 14:01; Status DC Midazolam HCl (Versed) 2 mg STK-MED ONCE .ROUTE ; Start 07/20/16 at 14:15; Stop 07/20/16 at 14:16; Status DC Sodium Chloride 3 ml 3 ml QSHIFT PRN IV AFTER MEDS AND BLOOD DRAWS; Start at 14:45; Stop 07/29/16 at 13:51; Status DC Sodium Chloride (Iv Sodium Chloride 0.9% 1000ml Bag) 1,000 ml @ 60 mls/hr [id number] IV Last administered on 07/20/16 14:44; Start 07/20/16 at 14:44; Stop at 00:43; Status DC Metoprolol Tartrate (Lopressor) 12.5 mg BID PO ; Start 07/20/16 at 21:00; Stop at 21:00; Status DC Lisinopril (Prinivil) 5 mg DAILY PO Last administered on 07/20/16 16:25; Start 07/20/16 at 15:00; Stop 07/20/16 at 17:21; Status DC Atorvastatin Calcium (Lipitor) 20 mg QHS PO Last administered on 07/20/16 20:33 ; Start 07/20/16 at 21:00; Stop 07/21/16 at 08:11; Status DC Nitroglycerin (Nitrostat) 0.4 mg PRN Q5MIN PRN SL CHEST PAIN Last administered on 07/25/16 04:55; Start 07/20/16 at 14:45; Stop 07/26/16 at 11:41; Status DC Hydralazine HCl (Apresoline) 10 mg PRN Q4HRS PRN IVP ELEVATED BP, SEE COMMENTS Last administered on 07/31/16 10:58; Start 07/20/16 at 17:15; Stop 07/31/16 at 13:31; Status DC Metoprolol Tartrate (Lopressor) 50 mg BID PO Last administered on 07/22/16 08: 31; Start 07/20/16 at 21:00; Stop 07/22/16 at 19:03; Status DC Alprazolam (Xanax) 0.25 mg PRN Q8HRS PRN PO ANXIETY / AGITATION Last administered on 07/24/16 21:34; Start 07/20/16 at 17:30; Stop 07/29/16 at 13:38; Status DC Heparin Sodium (Porcine) 2050 unit 2,050 unit PRN Q6HRS PRN IV FOR UFH LEVEL LESS THAN 0.2 Last administered on 07/21/16 04:24; Start 07/20/16 at 19:45; Stop 07/26/16 at 08:55; Status DC Heparin Sodium/ Dextrose 500 ml @ 19.4 mls/hr CONT PRN IV SEE I/O RECORD; Start 07/20/16 at 19:45; Stop 07/21/16 at 16:24; Status DC Heparin Sodium (Porcine) (Heparin Sodium) 2,050 unit PRN Q6HRS PRN IV FOR UFH LEVEL LESS THAN 0.2; Start 07/20/16 at 19:45; Status UNV Atorvastatin Calcium (Lipitor) 40 mg QHS PO Last administered on 07/31/16 21: 21; Start 07/21/16 at 21:00 Iodixanol (Visipaque 320) 200 ml STK-MED ONCE .ROUTE ; Start 07/20/16 at 14:00; Stop 07/21/16 at 08:26; Status DC Zolpidem Tartrate (Ambien) 5 mg PRN QHS PRN PO INSOMNIA, MAY REPEAT IN 1HR; Start 07/21/16 at 15:30; Stop 07/29/16 at 13:38; Status DC Metoprolol Tartrate 25 mg 25 mg 1X ONCE PO ; Start 07/22/16 at 06:00; Stop at 06:02; Status DC Cefazolin Sodium/ Dextrose 50 ml @ 100 mls/hr 1X ONCE IV ; Start 07/22/16 at 06 :00; Stop 07/22/16 at 06:29; Status DC Heparin Sodium/ Dextrose 500 ml @ 0 mls/hr CONT PRN IV SEE I/O RECORD Last administered on 07/24/16 01:40; Start 07/21/16 at 16:30; Stop 07/26/16 at 08:55; Status DC Lidocaine HCl 2 ml 2 ml 1X PRN PRN ID IV START; Start 07/25/16 at 06:00; Stop 07/26/16 at 05:59; Status Cancel Lactated Ringer's (Iv Lactated Ringers) 1,000 ml @ 0 mls/hr Q0M IV Last administered on 07/25/16 07:30; Start 07/25/16 at 06:00; Stop 07/25/16 at 17:59 ; Status DC Fentanyl Citrate (Fentanyl 2ml Vial) 25 mcg PRN Q5MIN PRN IV Acute Pain; Start 07/22/16 at 09:15; Stop 07/23/16 at 09:14; Status DC Morphine Sulfate 2 mg PRN Q10MIN PRN IV Mild Pain; Start 07/22/16 at 09:15; Stop 07/23/16 at 09:14; Status DC Hydromorphone HCl (Dilaudid) 0.4 mg PRN Q10MIN PRN IV Moderate to severe pain; Start 07/22/16 at 09:15; Stop 07/23/16 at 09:14; Status DC Ondansetron HCl (Zofran) 4 mg PRN Q6HRS PRN IV Nausea, 1st Choice; Start at 09:15; Stop 07/23/16 at 09:14; Status DC Prochlorperazine Edisylate (Compazine) 5 mg PRN Q6HRS PRN IV Nausea/Vomiting, 2nd Choice; Start 07/22/16 at 09:15; Stop 07/23/16 at 09:14; Status DC Ondansetron HCl (Zofran) 4 mg PRN Q6HRS PRN IV NAUSEA/VOMITING; Start 07/25/16 at 07:00; Stop 07/26/16 at 06:59; Status DC Fentanyl Citrate (Fentanyl 2ml Vial) 25 mcg PRN Q5MIN PRN IV MILD PAIN; Start 07/25/16 at 07:00; Stop 07/26/16 at 06:59; Status DC Fentanyl Citrate (Fentanyl 2ml Vial) 50 mcg PRN Q5MIN PRN IV MODERATE PAIN; Start 07/25/16 at 07:00; Stop 07/26/16 at 06:59; Status DC Morphine Sulfate 1 mg 1 mg PRN Q10MIN PRN IV SEVERE PAIN; Start 07/25/16 at 07: 00; Stop 07/25/16 at 20:28; Status DC Lactated Ringer's (Iv Lactated Ringers) 1,000 ml @ 0 mls/hr Q0M IV ; Start 01/31 at 07:00; Stop 07/25/16 at 18:59; Status Cancel Lidocaine HCl 2 ml PRN 1X PRN ID PRIOR TO IV START Last administered on 07:16; Start 07/25/16 at 07:00; Stop 07/26/16 at 06:59; Status DC Hydromorphone HCl (Dilaudid) 0.5 mg PRN Q10MIN PRN IV SEV PAIN, Second choice; Start 07/25/16 at 07:00; Stop 07/26/16 at 06:59; Status DC Prochlorperazine Edisylate 5 mg 5 mg PACU PRN PRN IV NAUSEA, MRX1; Start at 07:00; Stop 07/26/16 at 06:59; Status DC Cefazolin Sodium/ Dextrose (Ancef 2gm Premix) 50 ml @ 100 mls/hr 1X ONCE IV Last administered on 07/25/16 08:12; Start 07/25/16 at 06:00; Stop 07/25/16 at 06:29; Status DC Metoprolol Tartrate (Lopressor) 25 mg 1X ONCE PO ; Start 07/25/16 at 06:00; Stop 07/25/16 at 06:00; Status DC Metoprolol Tartrate (Lopressor) 2.5 mg 1X ONCE IVP Last administered on 16:30; Start 07/22/16 at 16:30; Stop 07/22/16 at 16:31; Status DC Digoxin (Lanoxin) 250 mcg 1X ONCE IV ; Start 07/22/16 at 18:30; Stop 07/22/16 at 18:42; Status DC Digoxin (Lanoxin) 500 mcg 1X ONCE IV Last administered on 07/22/16 18:47; Start 07/22/16 at 18:45; Stop 07/22/16 at 18:46; Status DC Metoprolol Tartrate (Lopressor) 75 mg BID PO Last administered on 07/24/16 21: 30; Start 07/22/16 at 21:00; Stop 07/25/16 at 13:12; Status DC Nitroglycerin 0.4 mg 0.4 mg PRN Q5MIN PRN SL CHEST PAIN; Start 07/23/16 at 12:00 ; Status UNV Heparin Sodium (Porcine) 10504 unit/Lactated Ringer's 1,020 ml @ 1,020 mls/hr 1X PERIOP ONCE IRR Last administered on 07/25/16 08:46; Start 07/25/16 at 06: 00; Stop 07/25/16 at 06:59; Status DC Potassium Chloride 70 meq/ Sodium Bicarbonate 12.5 meq/Lidocaine HCl 24 ml/ Parenteral Electrolytes 571.5 ml @ 571.5 mls/ hr 1X PERIOP ONCE IRR ; Start at 06:00; Stop 07/25/16 at 06:59; Status DC Potassium Chloride/Sodium Bicarbonate/ Parenteral Electrolytes (Isolyte S) 520 ml @ 520 mls/hr 1X PERIOP ONCE IRR ; Start 07/25/16 at 06:00; Stop 07/25/16 at 06:59; Status DC Etomidate (Amidate) 20 mg STK-MED ONCE IV ; Start 07/25/16 at 06:08; Stop at 06:09; Status DC Phenylephrine HCl (-Synephrine Inj) 10 mg STK-MED ONCE .ROUTE ; Start at 06:08; Stop 07/25/16 at 06:09; Status DC Aminocaproic Acid (Amicar) 5,000 mg STK-MED ONCE IV ; Start 07/25/16 at 06:08; Stop 07/25/16 at 06:09; Status DC Heparin Sodium (Porcine) (Heparin Sodium) 10,000 unit STK-MED ONCE .ROUTE ; Start 07/25/16 at 06:10; Stop 07/25/16 at 06:11; Status DC Rocuronium Scipio (Zemuron) 100 mg STK-MED ONCE .ROUTE ; Start 07/25/16 at 06: 11; Stop 07/25/16 at 06:12; Status DC Morphine Sulfate 4 mg STK-MED ONCE .ROUTE ; Start 07/25/16 at 06:59; Stop at 07:00; Status DC Morphine Sulfate 4 mg 4 mg 1X ONCE IV ; Start 07/25/16 at 07:15; Stop 07/25/16 at 07:16; Status DC Cefazolin Sodium/ Sodium Chloride (Ancef/Iv Sodium Chloride 0.9% 500ml Bag) 500 ml @ 500 mls/hr 1X PERIOP ONCE IRR Last administered on 07/25/16 08:46; Start 07/25/16 at 07:15; Stop 07/25/16 at 08:14; Status DC Cellulose 1 each STK-MED ONCE .ROUTE Last administered on 07/25/16 08:46; Start 07/25/16 at 07:07; Stop 07/25/16 at 07:08; Status DC Vancomycin HCl (Vanco) 10 gm STK-MED ONCE .ROUTE Last administered on 08:46; Start 07/25/16 at 07:07; Stop 07/25/16 at 07:08; Status DC Papaverine HCl 60 mg STK-MED ONCE .ROUTE Last administered on 07/25/16 08:46; Start 07/25/16 at 07:07; Stop 07/25/16 at 07:08; Status DC Aspirin (Aspirin) 300 mg STK-MED ONCE .ROUTE Last administered on 07/25/16 17: 25; Start 07/25/16 at 07:08; Stop 07/25/16 at 07:09; Status DC Sodium Chloride (Sodium Chloride) 50 ml STK-MED ONCE IJ Last administered on t 08:46; Start 07/25/16 at 07:08; Stop 07/25/16 at 07:09; Status DC Midazolam HCl (Versed) 2 mg STK-MED ONCE .ROUTE ; Start 07/25/16 at 07:15; Stop 07/25/16 at 07:16; Status DC Ephedrine Sulfate 50 mg 50 mg STK-MED ONCE IV ; Start 07/25/16 at 07:16; Stop at 07:17; Status DC Nitroglycerin/ Dextrose (Nitroglycerin Drip) 250 ml @ As Directed STK-MED ONCE IV ; Start 07/25/16 at 07:16; Stop 07/25/16 at 07:17; Status DC Midazolam HCl (Versed) 2 mg STK-MED ONCE .ROUTE ; Start 07/25/16 at 07:18; Stop 07/25/16 at 07:19; Status DC Fentanyl Citrate (Fentanyl 2ml Vial) 100 mcg STK-MED ONCE .ROUTE ; Start at 07:19; Stop 07/25/16 at 07:20; Status DC Sufentanil Citrate (Sufenta) 100 mcg STK-MED ONCE .ROUTE ; Start 07/25/16 at 07: 19; Stop 07/25/16 at 07:20; Status DC Midazolam HCl (Versed) 2 mg 1X ONCE IV ; Start 07/25/16 at 08:00; Stop at 08:01; Status DC Dexamethasone Sodium Phosphate (Decadron) 20 mg STK-MED ONCE .ROUTE ; Start 01/31 at 07:58; Stop 07/25/16 at 07:59; Status DC Rocuronium [place] (Zemuron) 100 mg STK-MED ONCE .ROUTE ; Start 07/25/16 at 08: 52; Stop 07/25/16 at 08:53; Status DC Sufentanil Citrate (Sufenta) 100 mcg STK-MED ONCE .ROUTE ; Start 07/25/16 at 08: 53; Stop 07/25/16 at 08:54; Status DC Protamine Sulfate 250 mg STK-MED ONCE IV ; Start 07/25/16 at 10:43; Stop at 10:44; Status DC Rocuronium [place] 100 mg 100 mg STK-MED ONCE .ROUTE ; Start 07/25/16 at 10:52; Stop 07/25/16 at 10:53; Status DC Albumin Human 0 ml @ As Directed STK-MED ONCE IV ; Start 07/25/16 at 10:53; Stop 07/25/16 at 10:54; Status DC Amiodarone HCl/ Dextrose (Cordarone) 518 ml @ 34.53 mls/ hr 1X ONCE IV Last administered on 07/25/16t 18:52; Start 07/25/16 at 11:30; Stop 07/26/16 at 02:30 ; Status DC Sodium Bicarbonate 50 meq STK-MED ONCE .ROUTE ; Start 07/25/16 at 11:35; Stop at 11:36; Status DC Protamine Sulfate 50 mg STK-MED ONCE IV ; Start 07/25/16 at 12:31; Stop at 12:32; Status DC Amiodarone HCl (Cordarone) 150 mg STK-MED ONCE .ROUTE ; Start 07/25/16 at 12:37 ; Stop 07/25/16 at 12:38; Status DC Isoflurane (Isoflurane) 90 ml STK-MED ONCE IH ; Start 07/25/16 at 12:42; Stop at 12:43; Status DC Lidocaine HCl (Lidocaine HCl 2% Abboject) 100 mg STK-MED ONCE .ROUTE ; Start 01/31 at 13:07; Stop 07/25/16 at 13:08; Status DC Mannitol (Mannitol) 12.5 g STK-MED ONCE .ROUTE ; Start 07/25/16 at 13:07; Stop 07/25/16 at 13:08; Status DC Calcium Chloride 1,000 mg STK-MED ONCE IV ; Start 07/25/16 at 13:07; Stop at 13:08; Status DC Sodium Bicarbonate 50 meq 50 meq STK-MED ONCE .ROUTE ; Start 07/25/16 at 13:07; Stop 07/25/16 at 13:08; Status DC Albumin Human (Albuminar) 100 ml @ As Directed STK-MED ONCE IV ; Start at 13:07; Stop 07/25/16 at 13:08; Status DC Magnesium Sulfate 5 gm STK-MED ONCE .ROUTE ; Start 07/25/16 at 13:08; Stop 07/25 at 13:09; Status DC Heparin Sodium (Porcine) 35857 unit 30,000 unit STK-MED ONCE .ROUTE ; Start 01/31 at 13:08; Stop 07/25/16 at 13:09; Status DC Clevidipine (Cleviprex) 100 ml @ 0 mls/hr CONT PRN IV PER PROTOCOL; Start 07/25 at 13:45; Stop 07/26/16 at 11:29; Status DC Heparin Sodium (Porcine) 12059 unit 30,000 unit STK-MED ONCE .ROUTE ; Start 01/31 at 13:39; Stop 07/25/16 at 13:40; Status DC Epinephrine HCl/ Sodium Chloride (Adrenalin/Iv Sodium Chloride 0.9% 250ml) 254 ml @ 3.81 mls/hr CONT PRN IV SEE I/O RECORD; Start 07/25/16 at 13:45 Epinephrine HCl (Epinephrine Syringe) 1 mg STK-MED ONCE .ROUTE ; Start 07/25/16 at 13:52; Stop 07/25/16 at 13:53; Status DC Rocuronium [place] (Zemuron) 100 mg STK-MED ONCE .ROUTE ; Start 07/25/16 at 13: 57; Stop 07/25/16 at 13:58; Status DC Sodium Bicarbonate 50 meq 50 meq STK-MED ONCE .ROUTE ; Start 07/25/16 at 14:04; Stop 07/25/16 at 14:05; Status DC Procainamide HCl/ Dextrose (Pronestyl) 520 ml @ 15.6 mls/hr CONT PRN IV SEE I/ O RECORD; Start 07/25/16 at 14:30; Stop 07/28/16 at 15:22; Status DC Sodium Bicarbonate 50 meq STK-MED ONCE .ROUTE ; Start 07/25/16 at 14:31; Stop at 14:32; Status DC Sodium Bicarbonate 50 meq STK-MED ONCE .ROUTE ; Start 07/25/16 at 14:31; Stop at 14:32; Status DC Protamine Sulfate 50 mg STK-MED ONCE IV ; Start 07/25/16 at 15:13; Stop at 15:14; Status DC Protamine Sulfate 50 mg STK-MED ONCE IV ; Start 07/25/16 at 15:13; Stop at 15:14; Status DC Isoflurane 90 ml 90 ml STK-MED ONCE IH ; Start 07/25/16 at 15:13; Stop 07/25/16 at 15:14; Status DC Dobutamine HCl/ Dextrose 250 ml @ As Directed STK-MED ONCE IV ; Start 07/25/16 at 15:17; Stop 07/25/16 at 15:18; Status DC Iohexol 100 ml 100 ml STK-MED ONCE .ROUTE Last administered on 07/25/16t 15:39 ; Start 07/25/16 at 15:28; Stop 07/25/16 at 15:29; Status DC Norepinephrine Bitartrate 8 mg/ Sodium Chloride 258 ml @ 1.93 mls/hr 1X ONCE IV Last administered on 07/25/16t 18:53; Start 07/25/16 at 16:00; Stop at 08:04; Status DC Albumin Human (Plasmanate) 1,000 ml @ As Directed STK-MED ONCE IV ; Start 07/25 at 16:11; Stop 07/25/16 at 16:12; Status DC Heparin Sodium (Porcine) (Heparin Sodium) 10,000 unit STK-MED ONCE .ROUTE ; Start 07/25/16 at 16:19; Stop 07/25/16 at 16:20; Status DC Lidocaine HCl (Lidocaine HCl 2% Abboject) 100 mg STK-MED ONCE .ROUTE ; Start 01/31 at 16:19; Stop 07/25/16 at 16:20; Status DC Mannitol (Mannitol) 12.5 g STK-MED ONCE .ROUTE ; Start 07/25/16 at 16:19; Stop 07/25/16 at 16:20; Status DC Calcium Chloride 1,000 mg STK-MED ONCE IV ; Start 07/25/16 at 16:19; Stop at 16:20; Status DC Sodium Bicarbonate 50 meq STK-MED ONCE .ROUTE ; Start 07/25/16 at 16:19; Stop at 16:20; Status DC Magnesium Sulfate 5 gm STK-MED ONCE .ROUTE ; Start 07/25/16 at 16:19; Stop 07/25 at 16:20; Status DC Heparin Sodium (Porcine) (Heparin Sodium) 10,000 unit STK-MED ONCE .ROUTE ; Start 07/25/16 at 16:20; Stop 07/25/16 at 16:21; Status DC Lidocaine HCl (Lidocaine HCl 2% Abboject) 100 mg STK-MED ONCE .ROUTE ; Start 01/31 at 16:20; Stop 07/25/16 at 16:21; Status DC Aminocaproic Acid (Amicar) 5,000 mg STK-MED ONCE IV ; Start 07/25/16 at 16:20; Stop 07/25/16 at 16:21; Status DC Mannitol (Mannitol) 12.5 g STK-MED ONCE .ROUTE ; Start 07/25/16 at 16:20; Stop 07/25/16 at 16:21; Status DC Sodium Bicarbonate 50 meq 50 meq STK-MED ONCE .ROUTE ; Start 07/25/16 at 16:20; Stop 07/25/16 at 16:21; Status DC Albumin Human (Albuminar) 100 ml @ As Directed STK-MED ONCE IV ; Start at 16:20; Stop 07/25/16 at 16:21; Status DC Rocuronium Scipio (Zemuron) 50 mg STK-MED ONCE .ROUTE ; Start 07/25/16 at 16:33 ; Stop 07/25/16 at 16:34; Status DC Rocuronium [place] (Zemuron) 50 mg STK-MED ONCE .ROUTE ; Start 07/25/16 at 16:33 ; Stop 07/25/16 at 16:34; Status DC Protamine Sulfate 50 mg STK-MED ONCE IV ; Start 07/25/16 at 16:34; Stop at 16:35; Status DC Sodium Bicarbonate 50 meq STK-MED ONCE .ROUTE ; Start 07/25/16 at 16:36; Stop at 16:37; Status DC Calcium Chloride 1,000 mg STK-MED ONCE IV ; Start 07/25/16 at 16:41; Stop at 16:42; Status DC Epinephrine HCl (Epinephrine Syringe) 1 mg STK-MED ONCE .ROUTE ; Start 07/25/16 at 16:41; Stop 07/25/16 at 16:42; Status DC Sodium Bicarbonate 50 meq STK-MED ONCE .ROUTE ; Start 07/25/16 at 16:52; Stop at 16:53; Status DC Sodium Bicarbonate 50 meq STK-MED ONCE .ROUTE ; Start 07/25/16 at 16:52; Stop at 16:53; Status DC Sodium Bicarbonate 50 meq STK-MED ONCE .ROUTE ; Start 07/25/16 at 16:52; Stop at 16:53; Status DC Vasopressin (Vasostrict) 20 unit STK-MED ONCE .ROUTE ; Start 07/25/16 at 16:54; Stop 07/25/16 at 16:55; Status DC Famotidine (Pepcid) 20 mg STK-MED ONCE .ROUTE ; Start 07/25/16 at 16:56; Stop at 16:57; Status DC Dexamethasone Sodium Phosphate (Decadron) 20 mg STK-MED ONCE .ROUTE ; Start 01/31 at 16:56; Stop 07/25/16 at 16:57; Status DC Diphenhydramine HCl 50 mg 50 mg STK-MED ONCE .ROUTE ; Start 07/25/16 at 16:56; Stop 07/25/16 at 16:57; Status DC Vasopressin/ Dextrose (Vasostrict) 102 ml @ 6 mls/hr CONT PRN IV SEE I/O RECORD Last administered on 07/28/16t 22:48; Start 07/25/16 at 17:15 Sodium Bicarbonate 50 meq STK-MED ONCE .ROUTE ; Start 07/25/16 at 17:24; Stop at 17:25; Status DC Sodium Bicarbonate 50 meq 50 meq STK-MED ONCE .ROUTE ; Start 07/25/16 at 17:24; Stop 07/25/16 at 17:25; Status DC Cefazolin Sodium/ Dextrose (Ancef 2gm Premix) 50 ml @ As Directed STK-MED ONCE IV ; Start 07/25/16 at 17:32; Stop 07/25/16 at 17:33; Status DC Sodium Chloride 3 ml 3 ml PRN Q12HR PRN IV AFTER MEDS AND BLOOD DRAWS; Start at 17:30; Stop 07/29/16 at 13:38; Status DC Lactated Ringer's 1,000 ml @ 15 mls/hr Q24H IV Last administered on 07/29/16 16:45; Start 07/25/16 at 17:30; Stop 07/31/16 at 15:33; Status DC Insulin Human Regular/Sodium Chloride (Novolin R Vial/ Iv Normal Saline 150ml) 151.5 ml @ 0 mls/hr CONT PRN PRN IV SEE I/O RECORD Last administered on 03:03; Start 07/25/16 at 17:30; Stop 07/29/16 at 13:51; Status DC Dextrose 25 gm 25 gm PRN Q15MIN PRN IV LOW BLOOD SUGAR; Start 07/25/16 at 17:30 ; Stop 07/29/16 at 13:51; Status DC Dopamine HCl/ Dextrose 250 ml @ 0 mls/hr CONT PRN PRN IV SEE I/O RECORD; Start 07/25/16 at 17:30; Stop 07/26/16 at 11:41; Status DC Amiodarone HCl/ Dextrose (Cordarone) 518 ml @ 33.33 mls/ hr CONT PRN PRN IV SEE COMMENTS; Start 07/25/16 at 17:30; Status UNV Info 1 ea CONT PRN PRN MC SEE COMMENTS; Start 07/25/16 at 17:30 Info 1 ea 1 ea CONT PRN PRN MC SEE COMMENTS; Start 07/25/16 at 17:30 Magnesium Sulfate/ Dextrose (Magnesium Sulfate PREMIX 1GM) 100 ml @ 100 mls/hr PRN DAILY PRN IV FOR MAG < 2.2 Last administered on 07/27/16 10:59; Start 01/31 at 17:30 Famotidine (Pepcid) 20 mg BID IVP Last administered on 07/31/16 21:10; Start 07/25/16 at 21:00 Metoclopramide HCl (Reglan) 10 mg PRN Q6HRS PRN IV NAUSEA/VOMITING Last administered on 07/29/16 09:54; Start 07/25/16 at 17:30 Morphine Sulfate 2 mg PRN Q1HR PRN IV PAIN Last administered on 07/28/16 14:21 ; Start 07/25/16 at 17:30; Stop 07/29/16 at 13:38; Status DC Acetaminophen (Tylenol) 650 mg PRN Q4HRS PRN PO MILD PAIN / TEMP; Start at 17:30; Stop 07/29/16 at 13:38; Status DC Acetaminophen (Acetaminophen Supp) 650 mg PRN Q4HRS PRN NM MILD PAIN / TEMP; Start 07/25/16 at 17:30 Meperidine HCl 12.5 mg 12.5 mg PRN Q15MIN PRN IV SHIVERING; Start 07/25/16 at 17:30; Stop 07/29/16 at 13:38; Status DC Propofol (Diprivan) 100 ml @ 0 mls/hr CONT PRN PRN IV POSTOP SEDATION UNTIL EXTUBATE; Start 07/25/16 at 17:30; Stop 07/28/16 at 15:22; Status DC Aspirin (Ecotrin) 325 mg [id number] PO Last administered on 07/29/16 09:54; Start 07/26/16 at 08:00; Stop 07/29/16 at 09:59; Status DC Aspirin (Aspirin) 300 mg PRN DAILY PRN NM IF UNABLE TO TAKE PO; Start 07/25/16 at 17:30; Stop 07/26/16 at 12:00; Status DC Acetaminophen/ Hydrocodone Bitart (Lortab 5/325) 1 tab PRN Q4HRS PRN PO MILD PAIN; Start 07/25/16 at 17:30 Acetaminophen/ Hydrocodone Bitart 2 tab 2 tab PRN Q4HRS PRN PO MODERATE PAIN, SEVERE PAIN; Start 07/25/16 at 17:30 Cefazolin Sodium/ Dextrose 50 ml @ 100 mls/hr Q8H IV ; Start 07/25/16 at 18:00 ; Stop 07/25/16 at 21:42; Status DC Albumin Human 250 ml @ 62.5 mls/hr 1X ONCE IV Last administered on 07/27/16 17:52; Start 07/25/16 at 17:30; Stop 07/25/16 at 21:29; Status DC Midazolam HCl 100 ml @ As Directed STK-MED ONCE IV ; Start 07/25/16 at 18:06; Stop 07/25/16 at 18:07; Status DC Midazolam HCl 100 ml @ 0 mls/hr CONT PRN IV SEE I/O RECORD Last administered on 07/25/16 18:56; Start 07/25/16 at 18:15; Stop 07/26/16 at 08:59; Status DC Vancomycin HCl 1 gm/Sodium Chloride 250 ml @ 250 mls/hr 1X ONCE IV Last administered on 07/25/16 20:56; Start 07/25/16 at 18:15; Stop 07/25/16 at 19:14 ; Status DC Piperacillin Sod/ Tazobactam Sod/ Sodium Chloride (Zosyn/Iv Sodium Chloride 0.9 % 50ml) 50 ml @ 100 mls/hr Q6HRS IV Last administered on 07/31/16 05:32; Start 07/25/16 at 18:15; Stop 07/31/16 at 10:25; Status DC Midazolam HCl (Versed) 2 mg PRN Q20MIN PRN IV SEDATION; Start 07/25/16 at 18:15 ; Stop 07/25/16 at 18:39; Status DC Midazolam HCl 5 mg 5 mg PRN Q30MIN PRN IV SEDATION; Start 07/25/16 at 18:15; Stop 07/25/16 at 18:39; Status DC Vecuronium [place] 100 mg/ Dextrose 100 ml @ 0 mls/hr 1X ONCE IV Last administered on 07/25/16 19:43; Start 07/25/16 at 18:15; Stop 07/25/16 at 18:17 ; Status DC Midazolam HCl 100 ml @ 0 mls/hr CONT PRN IV SEE I/O RECORD Last administered on 07/28/16 19:40; Start 07/25/16 at 18:45 Dobutamine HCl/ Dextrose 250 ml @ 0 mls/hr CONT PRN IV SEE I/O RECORD Last administered on 07/29/16 03:10; Start 07/25/16 at 18:45; Stop 07/29/16 at 13:38 ; Status DC Potassium Chloride 50 ml @ 50 mls/hr Q1H IV Last administered on 07/25/16 22: 58; Start 07/25/16 at 21:00; Stop 07/25/16 at 23:59; Status DC Cefazolin Sodium/ Dextrose 50 ml @ 100 mls/hr Q8H IV Last administered on 07/27 05:34; Start 07/25/16 at 22:00; Stop 07/27/16 at 06:29; Status DC Heparin Sodium (Porcine) 35787 unit/Dextrose 512.5 ml @ 0 mls/hr Q0M ONCE IV Last administered on 07/25/16 22:21; Start 07/25/16 at 22:15; Stop 07/25/16 at 22:16; Status DC Vecuronium [place]/Dextrose (Norcuron) 100 ml @ 0 mls/hr CONT PRN IV SEE I/O RECORD Last administered on 07/26/16 01:07; Start 07/26/16 at 00:45; Stop 07/29 at 13:38; Status DC Dextrose 25 gm 25 gm 1X ONCE IV Last administered on 07/26/16 01:08; Start at 01:00; Stop 07/26/16 at 01:18; Status DC Amiodarone HCl/ Dextrose (Cordarone) 259 ml @ 17.26 mls/ hr CONT PRN IV SEE I/ O RECORD Last administered on 07/30/16 13:02; Start 07/26/16 at 06:45; Stop at 15:33; Status DC Cefazolin Sodium/ Dextrose 2 gm 2 gm STK-MED ONCE IV ; Start 07/25/16 at 11:00; Stop 07/26/16 at 08:53; Status DC Lactated Ringer's 500 ml @ 5,000 mls/hr PRN Q10MIN PRN IV CVP <14; Start 07/26 at 10:00; Stop 07/29/16 at 13:38; Status DC Fentanyl Citrate (Fentanyl 600 Mcg/30 ml GRANULATOR) 30 ml @ 0 mls/hr CONT PRN IV PROTOCOL Last administered on 07/31/16 09:12; Start 07/26/16 at 10:00; Stop at 13:31; Status DC Fentanyl Citrate (Fentanyl 2ml Vial) 25 mcg PRN Q1HR PRN IV COMM; Start at 10:00; Stop 07/29/16 at 13:38; Status DC Fentanyl Citrate (Fentanyl 2ml Vial) 50 mcg PRN Q1HR PRN IV COMM; Start at 10:00; Stop 07/29/16 at 13:38; Status DC Chlorhexidine Gluconate (Peridex) 15 ml BID MM Last administered on 07/31/16 21:12; Start 07/26/16 at 10:30 Sulfur Hexafluoride Microspheres (Lumason) 25 mg STK-MED ONCE IVP ; Start at 11:29; Stop 07/26/16 at 11:30; Status DC Aspirin 300 mg 300 mg DAILY NM Last administered on 07/28/16 07:55; Start 03/03 at 12:00; Stop 07/29/16 at 19:10; Status DC Potassium Chloride (KCl Premix 20meq) 50 ml @ 50 mls/hr 1X ONCE IV Last administered on 07/26/16 12:55; Start 07/26/16 at 12:00; Stop 07/26/16 at 12:59 ; Status DC Sulfur Hexafluoride Microspheres (Lumason) 25 mg 1X ONCE IVP Last administered on 07/26/16 11:45; Start 07/26/16 at 11:45; Stop 07/26/16 at 11:50 ; Status DC Multi-Ingred Cream/Lotion/Oil/ Oint (Artificial Tears Eye Oint) 1 adri BID OU Last administered on 08/01/16 08:44; Start 07/26/16 at 21:00 Ondansetron HCl (Zofran) 4 mg PRN Q6HRS PRN IV NAUSEA/VOMITING; Start 07/27/16 at 07:00; Stop 07/28/16 at 06:59; Status DC Fentanyl Citrate (Fentanyl 2ml Vial) 25 mcg PRN Q5MIN PRN IV MILD PAIN; Start 07/27/16 at 07:00; Stop 07/28/16 at 06:59; Status DC Fentanyl Citrate (Fentanyl 2ml Vial) 50 mcg PRN Q5MIN PRN IV MODERATE PAIN; Start 07/27/16 at 07:00; Stop 07/28/16 at 06:59; Status DC Morphine Sulfate 1 mg 1 mg PRN Q10MIN PRN IV SEVERE PAIN; Start 07/27/16 at 07: 00; Stop 07/28/16 at 06:59; Status DC Lactated Ringer's (Iv Lactated Ringers) 1,000 ml @ 30 mls/hr Q24H IV Last administered on 07/26/16 17:25; Start 07/27/16 at 07:00; Stop 07/27/16 at 18:59 ; Status DC Lidocaine HCl 2 ml PRN 1X PRN ID PRIOR TO IV START; Start 07/27/16 at 07:00; Stop 07/28/16 at 06:59; Status DC Hydromorphone HCl (Dilaudid) 0.5 mg PRN Q10MIN PRN IV SEV PAIN, Second choice; Start 07/27/16 at 07:00; Stop 07/28/16 at 06:59; Status DC Prochlorperazine Edisylate 5 mg 5 mg PACU PRN PRN IV NAUSEA, MRX1; Start at 07:00; Stop 07/28/16 at 06:59; Status DC Heparin Sodium (Porcine) 20031 unit/Dextrose 512.5 ml @ 0 mls/hr Q0M ONCE IV Last administered on 07/26/16 19:40; Start 07/26/16 at 18:30; Stop 07/26/16 at 18:31; Status DC Amiodarone HCl 150 mg/Dextrose 103 ml @ 618 mls/hr 1X ONCE IV Last administered on 07/26/16 19:25; Start 07/26/16 at 19:15; Stop 07/26/16 at 19:24 ; Status DC Norepinephrine Bitartrate 8 mg/ Sodium Chloride 258 ml @ 1.93 mls/hr CONT PRN IV SEE I/O RECORD Last administered on 07/28/16 04:46; Start 07/26/16 at 19:15 Amiodarone HCl 900 mg/Dextrose 518 ml @ 0 mls/hr CONT PRN IV PER PROTOCOL; Start 07/26/16 at 19:15; Stop 07/27/16 at 12:11; Status DC Milrinone Lactate/ Dextrose 100 ml @ 0 mls/hr CONT PRN IV SEE I/O RECORD Last administered on 07/26/16 20:03; Start 07/26/16 at 19:45; Stop 07/29/16 at 13:51 ; Status DC Calcium Chloride/ Sodium Chloride (Iv Sodium Chloride 0.9% 100ml) 120 ml @ 240 mls/hr 1X ONCE IV Last administered on 07/26/16 21:04; Start 07/26/16 at 21: 30; Stop 07/26/16 at 21:59; Status DC Digoxin 500 mcg 500 mcg 1X ONCE IV Last administered on 07/26/16 21:55; Start 07/26/16 at 21:45; Stop 07/26/16 at 21:46; Status DC Cefazolin Sodium/ Sodium Chloride (Ancef/Iv Sodium Chloride 0.9% 500ml Bag) 500 ml @ 500 mls/hr 1X PERIOP ONCE IRR Last administered on 07/27/16 14:37; Start 07/27/16 at 10:00; Stop 07/27/16 at 10:59; Status DC Vancomycin HCl (Vanco) 10 gm 1X ONCE CEMENT Last administered on 07/27/16 14: 37; Start 07/27/16 at 12:30; Stop 07/27/16 at 12:31; Status DC Rocuronium [place] (Zemuron) 100 mg STK-MED ONCE .ROUTE ; Start 07/27/16 at 12: 32; Stop 07/27/16 at 12:33; Status DC Lorazepam (Ativan) 2 mg STK-MED ONCE .ROUTE ; Start 07/27/16 at 14:13; Stop 04/02 at 14:14; Status DC Phenylephrine HCl 1 mg 1 mg STK-MED ONCE IV ; Start 07/27/16 at 14:18; Stop 04/02 at 14:19; Status DC Albumin Human (Plasmanate) 250 ml @ 62.5 mls/hr 1X ONCE IV Last administered on 07/27/16 17:52; Start 07/27/16 at 17:15; Stop 07/27/16 at 21:14; Status DC Sodium Bicarbonate 50 meq STK-MED ONCE .ROUTE ; Start 07/27/16 at 17:39; Stop at 17:40; Status DC Sodium Bicarbonate 50 meq 1X ONCE IV Last administered on 07/27/16 17:51; Start 07/27/16 at 18:00; Stop 07/27/16 at 18:01; Status DC Sodium Bicarbonate 50 meq 1X ONCE IV Last administered on 07/27/16 17:52; Start 07/27/16 at 18:00; Stop 07/27/16 at 18:01; Status DC Fentanyl Citrate (Fentanyl 2ml Vial) 25 mcg PRN Q5MIN PRN IV MILD PAIN; Start 07/28/16 at 07:00; Stop 07/29/16 at 06:59; Status DC Fentanyl Citrate (Fentanyl 2ml Vial) 50 mcg PRN Q5MIN PRN IV MODERATE PAIN; Start 07/28/16 at 07:00; Stop 07/29/16 at 06:59; Status DC Morphine Sulfate 1 mg 1 mg PRN Q10MIN PRN IV SEVERE PAIN; Start 07/28/16 at 07: 00; Stop 07/29/16 at 06:59; Status DC Lactated Ringer's (Iv Lactated Ringers) 1,000 ml @ 30 mls/hr Q24H IV Last administered on 07/28/16 06:49; Start 07/28/16 at 06:49; Stop 07/28/16 at 18:48 ; Status DC Lidocaine HCl 2 ml PRN 1X PRN ID PRIOR TO IV START; Start 07/28/16 at 07:00; Stop 07/29/16 at 06:59; Status DC Hydromorphone HCl (Dilaudid) 0.5 mg PRN Q10MIN PRN IV SEV PAIN, Second choice; Start 07/28/16 at 07:00; Stop 07/29/16 at 06:59; Status DC Rocuronium [place] 50 mg 50 mg STK-MED ONCE .ROUTE ; Start 07/28/16 at 07:27; Stop 07/28/16 at 07:28; Status DC Cefazolin Sodium/ Sodium Chloride (Ancef/Iv Sodium Chloride 0.9% 500ml Bag) 500 ml @ 500 mls/hr 1X PERIOP ONCE IRR Last administered on 07/28/16 09:25; Start 07/28/16 at 08:00; Stop 07/28/16 at 08:59; Status DC Cellulose 1 each STK-MED ONCE .ROUTE ; Start 07/28/16 at 07:42; Stop 07/28/16 at 07:43; Status DC Bupivacaine HCl/ Epinephrine Bitart 50 ml 50 ml STK-MED ONCE .ROUTE ; Start at 07:42; Stop 07/28/16 at 07:43; Status DC Heparin Sodium (Porcine)/Sodium Chloride (Heparin Sodium/ Iv Sodium Chloride 0.9 % 500ml Bag) 505 ml @ 505 mls/hr 1X PERIOP ONCE IRR Last administered on 07/28 10:19; Start 07/28/16 at 08:15; Stop 07/28/16 at 09:14; Status DC Lorazepam 2 mg 2 mg STK-MED ONCE .ROUTE ; Start 07/28/16 at 08:29; Stop at 08:30; Status DC Magnesium Sulfate/ Dextrose (Magnesium Sulfate PREMIX 1GM) 100 ml @ 100 mls/hr 1X ONCE IV Last administered on 07/28/16t 13:09; Start 07/28/16 at 09:00; Stop 07/28/16 at 09:59; Status DC Vasopressin (Vasostrict) 20 unit STK-MED ONCE .ROUTE ; Start 07/28/16 at 09:03; Stop 07/28/16 at 09:04; Status DC Epinephrine HCl (Epinephrine Syringe) 1 mg STK-MED ONCE .ROUTE ; Start 07/28/16 at 09:09; Stop 07/28/16 at 09:10; Status DC Calcium Chloride 1,000 mg STK-MED ONCE IV ; Start 07/28/16 at 09:09; Stop at 09:10; Status DC Phenylephrine HCl 1 mg STK-MED ONCE IV ; Start 07/28/16 at 09:54; Stop 07/28/16 at 09:55; Status DC Sevoflurane 60 ml 60 ml STK-MED ONCE IH ; Start 07/28/16 at 09:54; Stop at 09:55; Status DC Epinephrine HCl/ Sodium Chloride (Adrenalin/Iv Sodium Chloride 0.9% 250ml) 254 ml @ 3.81 mls/hr 1X ONCE IV ; Start 07/28/16 at 10:00; Stop 07/29/16 at 19:10 ; Status DC Heparin Sodium (Porcine) 17034 unit 10,000 unit STK-MED ONCE .ROUTE ; Start at 09:57; Stop 07/28/16 at 09:58; Status DC Albumin Human (Plasmanate) 500 ml @ As Directed STK-MED ONCE IV ; Start at 09:57; Stop 07/28/16 at 09:58; Status DC Iohexol 100 ml 100 ml STK-MED ONCE .ROUTE ; Start 07/28/16 at 10:39; Stop at 10:40; Status DC Heparin Sodium/ Sodium Chloride 500 ml @ As Directed STK-MED ONCE .ROUTE ; Start 07/28/16 at 10:39; Stop 07/28/16 at 10:40; Status DC Iohexol 100 ml 100 ml STK-MED ONCE .ROUTE ; Start 07/28/16 at 10:43; Stop at 10:44; Status DC Heparin Sodium/ Sodium Chloride 500 ml @ As Directed STK-MED ONCE .ROUTE ; Start 07/28/16 at 11:21; Stop 07/28/16 at 11:22; Status DC Albuterol Sulfate (Ventolin Neb Soln) 2.5 mg RTQID NEB Last administered on 08:46; Start 07/28/16 at 12:00; Stop 07/30/16 at 17:05; Status DC Furosemide (Lasix) 40 mg 1X ONCE IVP Last administered on 07/28/16 13:16; Start 07/28/16 at 13:15; Stop 07/28/16 at 13:16; Status DC Furosemide (Lasix) 40 mg 1X ONCE IVP Last administered on 07/28/16 13:19; Start 07/28/16 at 14:00; Stop 07/28/16 at 14:01; Status DC Heparin Sodium/ Sodium Chloride 1000 unit 1,000 unit CONT PRN IV ART LINE FLUSH Last administered on 07/30/16 19:50; Start 07/28/16 at 14:45 Albumin Human 250 ml @ 62.5 mls/hr PRN Q1HR PRN IV SEE COMMENTS Last administered on 07/28/16 20:16; Start 07/28/16 at 15:15 Furosemide 100 mg/ Sodium Chloride 100 ml @ 5 mls/hr CONT PRN IV SEE I/O RECORD Last administered on 07/30/16 09:50; Start 07/28/16 at 15:30; Stop 07/31 at 13:31; Status DC Potassium Chloride 50 ml @ 50 mls/hr Q1H IV Last administered on 07/28/16 19: 39; Start 07/28/16 at 18:30; Stop 07/28/16 at 20:29; Status DC Potassium Chloride (KCl Premix 20meq) 50 ml @ 50 mls/hr Q1H IV Last administered on 07/29/16 09:36; Start 07/29/16 at 07:00; Stop 07/29/16 at 08:59 ; Status DC Lorazepam (Ativan) 2 mg STK-MED ONCE .ROUTE ; Start 07/28/16 at 08:30; Stop at 08:16; Status DC Aspirin (Arti Aspirin) 325 mg DAILYWBKFT PO Last administered on 08/01/16 08: 00; Start 07/30/16 at 08:00 Docusate Sodium 100 mg 100 mg DAILY PO Last administered on 07/31/16 07:59; Start 07/30/16 at 09:00; Stop 07/31/16 at 11:00; Status DC Dobutamine HCl/ Dextrose 250 ml @ 12.1 mls/hr CONT PRN IV PER PROTOCOL Last administered on 07/31/16 19:57; Start 07/29/16 at 13:30 Potassium Chloride 50 ml @ 50 mls/hr Q1H IV Last administered on 07/29/16 22: 39; Start 07/29/16 at 20:00; Stop 07/29/16 at 22:59; Status DC Potassium Chloride (KCl Premix 20meq) 50 ml @ 50 mls/hr Q1H IV Last administered on 07/30/16 09:19; Start 07/30/16 at 07:00; Stop 07/30/16 at 08:59 ; Status DC Ipratropium [place] (Atrovent) 0.5 mg RTQID NEB Last administered on 08/01/16 13:07; Start 07/30/16 at 12:30 Digoxin 500 mcg 500 mcg 1X ONCE IV Last administered on 07/30/16 13:01; Start 07/30/16 at 12:15; Stop 07/30/16 at 12:19; Status DC Dexmedetomidine HCl/Sodium Chloride (Precedex/Iv Sodium Chloride 0.9% 50ml) 50 ml @ 0 mls/hr CONT PRN IV PER PROTOCOL Last administered on 07/30/16 15:00; Start 07/30/16 at 13:30 Atropine Sulfate 0.5 mg PRN Q5MIN PRN IV SEE COMMENTS; Start 07/30/16 at 13:30 Amiodarone HCl (Cordarone) 400 mg ONCE ONCE PO Last administered on 07/30/16 15:01; Start 07/30/16 at 13:30; Stop 07/30/16 at 13:46; Status DC Amiodarone HCl (Cordarone) 400 mg BID PO Last administered on 08/01/16 08:42; Start 07/30/16 at 21:00 Digoxin 125 mcg 125 mcg DAILY IV Last administered on 08/01/16 09:00; Start at 09:00 Albumin Human (Albuminar) 50 ml @ 50 mls/hr 1X ONCE IV Last administered on 16:26; Start 07/30/16 at 16:30; Stop 07/30/16 at 17:29; Status DC Ibuprofen (Motrin) 200 mg PRN Q6HRS PRN PO fever; Start 07/30/16 at 19:45; Stop 08/01/16 at 12:22; Status DC Metoprolol Tartrate (Lopressor) 2.5 mg 1X ONCE IVP Last administered on 20:23; Start 07/30/16 at 20:30; Stop 07/30/16 at 20:31; Status DC Metoprolol Tartrate 5 mg 5 mg PRN Q2HR PRN IVP HYPERTENSION Last administered on 07/31/16 08:04; Start 07/30/16 at 22:30 Potassium Chloride (KCl Premix 20meq) 50 ml @ 50 mls/hr Q1H IV Last administered on 07/31/16 09:04; Start 07/31/16 at 07:00; Stop 07/31/16 at 08:59 ; Status DC Metoprolol Tartrate (Lopressor) 12.5 mg BID NG Last administered on 08/01/16 08:44; Start 07/31/16 at 10:00 Docusate Sodium (Colace Solution) 100 mg PRN DAILY PRN PO constipation Last administered on 08/01/16 08:40; Start 07/31/16 at 11:00 Hydralazine HCl (Apresoline) 10 mg PRN Q2HRS PRN IVP ELEVATED BP, SEE COMMENTS ; Start 07/31/16 at 13:30 Fentanyl Citrate (Fentanyl 2ml Vial) 50 mcg PRN Q2HR PRN IV PAIN Last administered on 07/31/16 18:03; Start 07/31/16 at 13:45 Furosemide (Lasix) 40 mg TID IVP Last administered on 08/01/16 08:41; Start at 14:00 Alteplase, Recombinant (Cathflo) 2 mg 1X ONCE INT CAT Last administered on t 23:34; Start 07/31/16 at 23:15; Stop 07/31/16 at 23:16; Status DC Active Scripts Active Reported Amlodipine Besylate 5 Mg Tablet 5 Mg PO DAILY Pradaxa (Dabigatran Etexilate Mesylate) 150 Mg Capsule 1 Cap PO BID Metoprolol Succinate ( Xl ) (Metoprolol Succinate) 100 Mg Tab.er.24h 1 Tab PO DAILY Allergies Allergies: Coded Allergies: No Known Drug Allergies (Unverified , 07/27/16) ROS Review of System Patient denies fevers, chills, weight loss, dyspnea, angina, abdominal pain, change in bowels, or dysuria. 14 point review of systems is negative. Physical Exam Physical Examination PHYSICAL EXAMINATION: Vital signs: see above. General appearance is normal and in no acute distress. HEENT: Normocephalic and nontraumatic. Eyes, nose, ears, and throat are unremarkable. Neck is supple. No lymphadenopathy. No bruits are heard over the carotid artery. No crepitus. NEUROLOGIC: He is intubated. Eyes are open, pupils reactive to light, extraocular movements intact. He does not follow commands. He does move extremities spontaneously and equally well. Reflexes are 1+ with silent plantar responses. He does not respond to pinprick in the extremities or in the torso. Vitals VITALS Vital Signs Date Time Temp Pulse Resp B/P Pulse Ox O2 Delivery O2 Flow Rate FiO2 08/01/16 13:08 99 Ventilator 08/01/16 11:00 114 16 08/01/16 07:00 99.6 99.6 Labs Labs Laboratory Tests Test 07/31/16 05:30 07/31/16 08:00 07/31/16 13:35 07/31/16 14:30 White Blood Count 11.7x10^3/uL (4.0-11.0) Red Blood Count 2.47x10^6/uL (4.30-5.70) Hemoglobin 7.7g/dL (13.0-17.5) Hematocrit 23.1% (39.0-53.0) Mean Corpuscular Volume 94fL (79-100) Mean Corpuscular Hemoglobin 31pg (25-35) Mean Corpuscular Hemoglobin Concent 33g/dL (31-37) Red Cell Distribution Width 15.0% (11.5-14.5) Platelet Count 86x10^3/uL (140-400) Neutrophils (%) (Auto) 82% (31-73) Lymphocytes (%) (Auto) 10% (24-48) Monocytes (%) (Auto) 6% (0-9) Eosinophils (%) (Auto) 1% (0-3) Basophils (%) (Auto) 0% (0-3) Neutrophils # (Auto) 9.6x10^3uL (1.8-7.7) Lymphocytes # (Auto) 1.2x10^3/uL (1.0-4.8) Monocytes # (Auto) 0.7x10^3/uL (0.0-1.1) Eosinophils # (Auto) 0.1x10^3/uL (0.0-0.7) Basophils # (Auto) 0.0x10^3/uL (0.0-0.2) Sodium Level 146mmol/L (136-145) Potassium Level 3.8mmol/L (3.5-5.1) Chloride Level 110mmol/L (98-107) Carbon Dioxide Level 31mmol/L (21-32) Anion Gap 5 (6-14) Blood Urea Nitrogen 32mg/dL (8-26) Creatinine 1.2mg/dL (0.7-1.3) Estimated GFR (Cockcroft-Gault) 62.4 BUN/Creatinine Ratio 27 (6-20) Glucose Level 152mg/dL (70-99) Calcium Level 7.3mg/dL (8.5-10.1) Magnesium Level 2.8mg/dL (1.8-2.4) Total Bilirubin 8.0mg/dL (0.2-1.0) Aspartate Amino Transf (AST/SGOT) 254U/L (15-37) Alanine Aminotransferase (ALT/SGPT) 470U/L (16-63) Alkaline Phosphatase 144U/L (46-116) Total Protein 4.7g/dL (6.4-8.2) Albumin 2.4g/dL (3.4-5.0) Albumin/Globulin Ratio 1.0 (1.0-1.7) O2 Saturation 97% (92-99) Arterial Blood pH 7.56 (7.35-7.45) Arterial Blood pCO2 at Patient Temp 31mmHg (35-46) Arterial Blood pO2 at Patient Temp 104mmHg (75-108) Arterial Blood HCO3 27mmol/L (21-28) Arterial Blood Base Excess 4mmol/L (-3-3) Prothrombin Time 16.0SEC (11.7-14.0) Prothromb Time International Ratio 1.4 (0.8-1.1) Activated Partial Thromboplast Time 30SEC (24-38) Urine Collection Type U cath Urine Color [place] Urine Clarity Clear Urine pH 8.5 Urine Specific [place] 1.020 Urine Protein Negativemg/dL (NEG-TRACE) Urine Glucose (UA) Negativemg/dL (NEG) Urine Ketones (Stick) Negativemg/dL (NEG) Urine Blood Negative (NEG) Urine Nitrite Negative (NEG) Urine Bilirubin Small (NEG) Urine Urobilinogen Dipstick 1.0mg/dL (0.2 mg/dL) Urine Leukocyte Esterase Negative (NEG) Urine RBC 6-10/HPF (0-2) Urine WBC 1-4/HPF (0-4) Urine Bacteria 0/HPF (0-FEW) Urine Hyaline Casts Few/HPF Test 08/01/16 06:20 08/01/16 08:55 White Blood Count 12.5x10^3/uL (4.0-11.0) Red Blood Count 2.77x10^6/uL (4.30-5.70) Hemoglobin 8.8g/dL (13.0-17.5) Hematocrit 26.0% (39.0-53.0) Mean Corpuscular Volume 94fL (79-100) Mean Corpuscular Hemoglobin 32pg (25-35) Mean Corpuscular Hemoglobin Concent 34g/dL (31-37) Red Cell Distribution Width 15.6% (11.5-14.5) Platelet Count 106x10^3/uL (140-400) Neutrophils (%) (Auto) 80% (31-73) Lymphocytes (%) (Auto) 12% (24-48) Monocytes (%) (Auto) 6% (0-9) Eosinophils (%) (Auto) 1% (0-3) Basophils (%) (Auto) 0% (0-3) Neutrophils # (Auto) 10.0x10^3uL (1.8-7.7) Lymphocytes # (Auto) 1.5x10^3/uL (1.0-4.8) Monocytes # (Auto) 0.8x10^3/uL (0.0-1.1) Eosinophils # (Auto) 0.1x10^3/uL (0.0-0.7) Basophils # (Auto) 0.0x10^3/uL (0.0-0.2) Segmented Neutrophils % 70% (35-66) Band Neutrophils % 18% (0-9) Lymphocytes % 7% (24-48) Monocytes % 2% (0-10) Eosinophils % 1% (0-5) Metamyelocytes % 2% (0-0) Nucleated Red Blood Cells 5 Platelet Estimate Decreased (ADEQUATE) Polychromasia Slight Basophilic Stippling Present Anisocytosis Slight Sodium Level 148mmol/L (136-145) Potassium Level 4.1mmol/L (3.5-5.1) Chloride Level 111mmol/L (98-107) Carbon Dioxide Level 29mmol/L (21-32) Anion Gap 8 (6-14) Blood Urea Nitrogen 33mg/dL (8-26) Creatinine 1.1mg/dL (0.7-1.3) Estimated GFR (Cockcroft-Gault) 69.0 BUN/Creatinine Ratio 30 (6-20) Glucose Level 143mg/dL (70-99) Calcium Level 7.6mg/dL (8.5-10.1) Magnesium Level 2.7mg/dL (1.8-2.4) Total Bilirubin 6.6mg/dL (0.2-1.0) Direct Bilirubin 4.9mg/dL (0.0-0.2) Aspartate Amino Transf (AST/SGOT) 166U/L (15-37) Alanine Aminotransferase (ALT/SGPT) 411U/L (16-63) Alkaline Phosphatase 208U/L (46-116) Total Protein 5.1g/dL (6.4-8.2) Albumin 2.4g/dL (3.4-5.0) Albumin/Globulin Ratio 0.9 (1.0-1.7) O2 Saturation 96% (92-99) Arterial Blood pH 7.49 (7.35-7.45) Arterial Blood pCO2 at Patient Temp 34mmHg (35-46) Arterial Blood pO2 at Patient Temp 82mmHg (75-108) Arterial Blood HCO3 25mmol/L (21-28) Arterial Blood Base Excess 2mmol/L (-3-3) FiO2 40 Laboratory Tests Test 08/01/16 06:20 08/01/16 08:55 White Blood Count 12.5x10^3/uL (4.0-11.0) Red Blood Count 2.77x10^6/uL (4.30-5.70) Hemoglobin 8.8g/dL (13.0-17.5) Hematocrit 26.0% (39.0-53.0) Mean Corpuscular Volume 94fL (79-100) Mean Corpuscular Hemoglobin 32pg (25-35) Mean Corpuscular Hemoglobin Concent 34g/dL (31-37) Red Cell Distribution Width 15.6% (11.5-14.5) Platelet Count 106x10^3/uL (140-400) Neutrophils (%) (Auto) 80% (31-73) Lymphocytes (%) (Auto) 12% (24-48) Monocytes (%) (Auto) 6% (0-9) Eosinophils (%) (Auto) 1% (0-3) Basophils (%) (Auto) 0% (0-3) Neutrophils # (Auto) 10.0x10^3uL (1.8-7.7) Lymphocytes # (Auto) 1.5x10^3/uL (1.0-4.8) Monocytes # (Auto) 0.8x10^3/uL (0.0-1.1) Eosinophils # (Auto) 0.1x10^3/uL (0.0-0.7) Basophils # (Auto) 0.0x10^3/uL (0.0-0.2) Segmented Neutrophils % 70% (35-66) Band Neutrophils % 18% (0-9) Lymphocytes % 7% (24-48) Monocytes % 2% (0-10) Eosinophils % 1% (0-5) Metamyelocytes % 2% (0-0) Nucleated Red Blood Cells 5 Platelet Estimate Decreased (ADEQUATE) Polychromasia Slight Basophilic Stippling Present Anisocytosis Slight Sodium Level 148mmol/L (136-145) Potassium Level 4.1mmol/L (3.5-5.1) Chloride Level 111mmol/L (98-107) Carbon Dioxide Level 29mmol/L (21-32) Anion Gap 8 (6-14) Blood Urea Nitrogen 33mg/dL (8-26) Creatinine 1.1mg/dL (0.7-1.3) Estimated GFR (Cockcroft-Gault) 69.0 BUN/Creatinine Ratio 30 (6-20) Glucose Level 143mg/dL (70-99) Calcium Level 7.6mg/dL (8.5-10.1) Magnesium Level 2.7mg/dL (1.8-2.4) Total Bilirubin 6.6mg/dL (0.2-1.0) Direct Bilirubin 4.9mg/dL (0.0-0.2) Aspartate Amino Transf (AST/SGOT) 166U/L (15-37) Alanine Aminotransferase (ALT/SGPT) 411U/L (16-63) Alkaline Phosphatase 208U/L (46-116) Total Protein 5.1g/dL (6.4-8.2) Albumin 2.4g/dL (3.4-5.0) Albumin/Globulin Ratio 0.9 (1.0-1.7) O2 Saturation 96% (92-99) Arterial Blood pH 7.49 (7.35-7.45) Arterial Blood pCO2 at Patient Temp 34mmHg (35-46) Arterial Blood pO2 at Patient Temp 82mmHg (75-108) Arterial Blood HCO3 25mmol/L (21-28) Arterial Blood Base Excess 2mmol/L (-3-3) FiO2 [address] head: Small extra-axial fluid collection posteriorly near the right hemispheric vertex consistent with a small area of bleeding. Sinusitis Assessment/Plan Assessment/Plan Impression: Metabolic/post-bypass encephalopathy Small subdural hematoma, epidural less likely. He was having trouble with coagulopathy earlier but is currently off all anticoagulation except for his radial line flush Preserved deep tendon reflexes argue against a critical illness neuropathy which also is unlikely to develop this quickly. Recommendations: Repeat head CT tomorrow morning Hold additional anticoagulation but the radial line flush should be okay [place] blood pressure parameters less than 140/90 I discussed my findings with the patient's as well as Dr. Neff. Thank you for letting me help with the patient's care. ANA LAURA OLIVEIRA MD Aug 01, 2016 16:10
[2016-08-01] MEDS: ATORVASTATIN CALCIUM 40 MG TABLET. PO SCH (21:08)
[2016-08-01] MEDS: HALOPERIDOL LACTATE 5 MG/ML VIAL. IVP PRN ×2 (21:21→23:59)
[2016-08-02] VITALS (31 sets, daily range): BP systolic 78–140; BP diastolic 42–67
[2016-08-02] MEDS: PROPOFOL 100 ML IV PRN ×3 (02:50→11:43)
[2016-08-02] MEDS: FUROSEMIDE 40 MG/4 ML VIAL. IVP SCH ×2 (05:49→13:18)
[2016-08-02 06:31] LABS: BASO % 0 % (0-3); EOS % 0 % (0-3); HEMATOCRIT 28.5 % (39.0-53.0); LYMPH # 0.6 x10^3/uL (1.0-4.8); LYMPH % 4 % (24-48); MEAN CORPUSCULAR HEMOGLOBIN 31 pg (25-35); MEAN CORPUSCULAR HGB CONC 32 g/dL (31-37); MEAN CORPUSCULAR VOLUME 98 fL (79-100); MONO % 4 % (0-9); NEUT % 92 % (31-73); PLATELET COUNT 110 x10^3/uL (140-400); RED CELL DISTRIBUTION WIDTH 15.8 % (11.5-14.5); WHITE BLOOD COUNT 16.1 x10^3/uL (4.0-11.0)
[2016-08-02 06:38] LABS: ALBUMIN 2.4 g/dL (3.4-5.0); ALBUMIN/GLOBULIN RATIO 0.8 (1.0-1.7); CALCIUM 7.6 mg/dL (8.5-10.1); CREATININE 1.2 mg/dL (0.7-1.3); GFR 62.4; MAGNESIUM 2.8 mg/dL (1.8-2.4); POTASSIUM 4.3 mmol/L (3.5-5.1); TOTAL BILIRUBIN 5.8 mg/dL (0.2-1.0); TOTAL PROTEIN 5.3 g/dL (6.4-8.2)
[2016-08-02] MEDS: IPRATROPIUM BROMIDE 0.5 MG/2.5 ML NEBU. NEB SCH ×4 (07:45→19:50)
[2016-08-02 07:59] LABS: HCO3 ABG 28 mmol/L (21-28); PCO2 ABG 43 mmHg (35-46); PH ABG 7.43 (7.35-7.45); PO2 ABG 57 mmHg (75-108); SAT O2 ABG 88 % (92-99)
--- NOTE | 2016-08-02 08:07 | RAD ---
Portable chest, 08/02/2016: History: Postop CABG, ventilator patient Comparison is made yesterday study. The ET tube remains in place in satisfactory position. The NG tube extends into the stomach. A right PICC extends to the level of the atriocaval junction. The heart size and pulmonary vascularity are normal. Right lower lobe atelectasis has resolved. There nail appears to be minimal infrahilar atelectasis on the left, accentuated by patient rotation. There is no evidence of pneumothorax or pleural fluid. IMPRESSION: 1. Stable tube positions. 2. Minimal left basilar atelectasis.
[2016-08-02] MEDS: ASPIRIN 325 MG TABLET PO SCH (08:55)
[2016-08-02] MEDS: AMIODARONE HCL 200 MG TABLET. PO SCH ×2 (08:55→21:19)
[2016-08-02] MEDS: METOPROLOL TART IMMED RELEASE 25 MG TABLET. NG SCH ×2 (08:55→21:00)
[2016-08-02] MEDS: FAMOTIDINE 20 MG/2 ML VIAL IVP SCH ×2 (08:56→21:18)
[2016-08-02] MEDS: DIGOXIN IV 500 MCG/2 ML AMPUL. IV SCH (08:56)
[2016-08-02] MEDS: CHLORHEXIDINE 0.12% 15 ML MOUTHWASH. MM SCH ×2 (08:56→21:19)
[2016-08-02] MEDS: MINERAL OIL/PETROLATUM,WHITE OPHTH OINT 3.5GM TUBE. OU SCH ×2 (08:56→21:20)
[2016-08-02 09:50] LABS: FIO2 ABG 60
--- NOTE | 2016-08-02 10:10 | PDOC ---
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 EOMI. CN: no focal findings. Muscle tone: normal. Muscle strength: no movement to pain DTR: 1+ Plantar reflex: silent Gait: not examined in bed. Sensory exam: no abnormal findings. No cerebellar signs elicited. Review of Relevant I have reviewed the following items leonidas (where applicable) has been applied. Labs Laboratory Tests Test 07/31/16 13:35 07/31/16 14:30 08/01/16 06:20 08/01/16 08:55 Prothrombin Time 16.0SEC (11.7-14.0) Prothromb Time International Ratio 1.4 (0.8-1.1) Activated Partial Thromboplast Time 30SEC (24-38) Urine Collection Type U cath Urine Color [place] Urine Clarity Clear Urine pH 8.5 Urine Specific [place] 1.020 Urine Protein Negativemg/dL (NEG-TRACE) Urine Glucose (UA) Negativemg/dL (NEG) Urine Ketones (Stick) Negativemg/dL (NEG) Urine Blood Negative (NEG) Urine Nitrite Negative (NEG) Urine Bilirubin Small (NEG) Urine Urobilinogen Dipstick 1.0mg/dL (0.2 mg/dL) Urine Leukocyte Esterase Negative (NEG) Urine RBC 6-10/HPF (0-2) Urine WBC 1-4/HPF (0-4) Urine Bacteria 0/HPF (0-FEW) Urine Hyaline Casts Few/HPF White Blood Count 12.5x10^3/uL (4.0-11.0) Red Blood Count 2.77x10^6/uL (4.30-5.70) Hemoglobin 8.8g/dL (13.0-17.5) Hematocrit 26.0% (39.0-53.0) Mean Corpuscular Volume 94fL (79-100) Mean Corpuscular Hemoglobin 32pg (25-35) Mean Corpuscular Hemoglobin Concent 34g/dL (31-37) Red Cell Distribution Width 15.6% (11.5-14.5) Platelet Count 106x10^3/uL (140-400) Neutrophils (%) (Auto) 80% (31-73) Lymphocytes (%) (Auto) 12% (24-48) Monocytes (%) (Auto) 6% (0-9) Eosinophils (%) (Auto) 1% (0-3) Basophils (%) (Auto) 0% (0-3) Neutrophils # (Auto) 10.0x10^3uL (1.8-7.7) Lymphocytes # (Auto) 1.5x10^3/uL (1.0-4.8) Monocytes # (Auto) 0.8x10^3/uL (0.0-1.1) Eosinophils # (Auto) 0.1x10^3/uL (0.0-0.7) Basophils # (Auto) 0.0x10^3/uL (0.0-0.2) Segmented Neutrophils % 70% (35-66) Band Neutrophils % 18% (0-9) Lymphocytes % 7% (24-48) Monocytes % 2% (0-10) Eosinophils % 1% (0-5) Metamyelocytes % 2% (0-0) Nucleated Red Blood Cells 5 Platelet Estimate Decreased (ADEQUATE) Polychromasia Slight Basophilic Stippling Present Anisocytosis Slight Sodium Level 148mmol/L (136-145) Potassium Level 4.1mmol/L (3.5-5.1) Chloride Level 111mmol/L (98-107) Carbon Dioxide Level 29mmol/L (21-32) Anion Gap 8 (6-14) Blood Urea Nitrogen 33mg/dL (8-26) Creatinine 1.1mg/dL (0.7-1.3) Estimated GFR (Cockcroft-Gault) 69.0 BUN/Creatinine Ratio 30 (6-20) Glucose Level 143mg/dL (70-99) Calcium Level 7.6mg/dL (8.5-10.1) Magnesium Level 2.7mg/dL (1.8-2.4) Total Bilirubin 6.6mg/dL (0.2-1.0) Direct Bilirubin 4.9mg/dL (0.0-0.2) Aspartate Amino Transf (AST/SGOT) 166U/L (15-37) Alanine Aminotransferase (ALT/SGPT) 411U/L (16-63) Alkaline Phosphatase 208U/L (46-116) Total Protein 5.1g/dL (6.4-8.2) Albumin 2.4g/dL (3.4-5.0) Albumin/Globulin Ratio 0.9 (1.0-1.7) O2 Saturation 96% (92-99) Arterial Blood pH 7.49 (7.35-7.45) Arterial Blood pCO2 at Patient Temp 34mmHg (35-46) Arterial Blood pO2 at Patient Temp 82mmHg (75-108) Arterial Blood HCO3 25mmol/L (21-28) Arterial Blood Base Excess 2mmol/L (-3-3) FiO2 40 Test 08/02/16 00:01 08/02/16 05:50 08/02/16 07:45 Glucose (Fingerstick) 137mg/dL (70-99) White Blood Count 16.1x10^3/uL (4.0-11.0) Red Blood Count 2.90x10^6/uL (4.30-5.70) Hemoglobin 9.0g/dL (13.0-17.5) Hematocrit 28.5% (39.0-53.0) Mean Corpuscular Volume 98fL (79-100) Mean Corpuscular Hemoglobin 31pg (25-35) Mean Corpuscular Hemoglobin Concent 32g/dL (31-37) Red Cell Distribution Width 15.8% (11.5-14.5) Platelet Count 110x10^3/uL (140-400) Neutrophils (%) (Auto) 92% (31-73) Lymphocytes (%) (Auto) 4% (24-48) Monocytes (%) (Auto) 4% (0-9) Eosinophils (%) (Auto) 0% (0-3) Basophils (%) (Auto) 0% (0-3) Neutrophils # (Auto) 14.8x10^3uL (1.8-7.7) Lymphocytes # (Auto) 0.6x10^3/uL (1.0-4.8) Monocytes # (Auto) 0.6x10^3/uL (0.0-1.1) Eosinophils # (Auto) 0.0x10^3/uL (0.0-0.7) Basophils # (Auto) 0.0x10^3/uL (0.0-0.2) Sodium Level 150mmol/L (136-145) Potassium Level 4.3mmol/L (3.5-5.1) Chloride Level 114mmol/L (98-107) Carbon Dioxide Level 27mmol/L (21-32) Anion Gap 9 (6-14) Blood Urea Nitrogen 39mg/dL (8-26) Creatinine 1.2mg/dL (0.7-1.3) Estimated GFR (Cockcroft-Gault) 62.4 BUN/Creatinine Ratio 33 (6-20) Glucose Level 152mg/dL (70-99) Calcium Level 7.6mg/dL (8.5-10.1) Magnesium Level 2.8mg/dL (1.8-2.4) Total Bilirubin 5.8mg/dL (0.2-1.0) Aspartate Amino Transf (AST/SGOT) 91U/L (15-37) Alanine Aminotransferase (ALT/SGPT) 311U/L (16-63) Alkaline Phosphatase 209U/L (46-116) Total Protein 5.3g/dL (6.4-8.2) Albumin 2.4g/dL (3.4-5.0) Albumin/Globulin Ratio 0.8 (1.0-1.7) O2 Saturation 88% (92-99) Arterial Blood pH 7.43 (7.35-7.45) Arterial Blood pCO2 at Patient Temp 43mmHg (35-46) Arterial Blood pO2 at Patient Temp 57mmHg (75-108) Arterial Blood HCO3 28mmol/L (21-28) Arterial Blood Base Excess 3mmol/L (-3-3) FiO2 60 Laboratory Tests Test 08/02/16 00:01 08/02/16 05:50 08/02/16 07:45 Glucose (Fingerstick) 137mg/dL (70-99) White Blood Count 16.1x10^3/uL (4.0-11.0) Red Blood Count 2.90x10^6/uL (4.30-5.70) Hemoglobin 9.0g/dL (13.0-17.5) Hematocrit 28.5% (39.0-53.0) Mean Corpuscular Volume 98fL (79-100) Mean Corpuscular Hemoglobin 31pg (25-35) Mean Corpuscular Hemoglobin Concent 32g/dL (31-37) Red Cell Distribution Width 15.8% (11.5-14.5) Platelet Count 110x10^3/uL (140-400) Neutrophils (%) (Auto) 92% (31-73) Lymphocytes (%) (Auto) 4% (24-48) Monocytes (%) (Auto) 4% (0-9) Eosinophils (%) (Auto) 0% (0-3) Basophils (%) (Auto) 0% (0-3) Neutrophils # (Auto) 14.8x10^3uL (1.8-7.7) Lymphocytes # (Auto) 0.6x10^3/uL (1.0-4.8) Monocytes # (Auto) 0.6x10^3/uL (0.0-1.1) Eosinophils # (Auto) 0.0x10^3/uL (0.0-0.7) Basophils # (Auto) 0.0x10^3/uL (0.0-0.2) Sodium Level 150mmol/L (136-145) Potassium Level 4.3mmol/L (3.5-5.1) Chloride Level 114mmol/L (98-107) Carbon Dioxide Level 27mmol/L (21-32) Anion Gap 9 (6-14) Blood Urea Nitrogen 39mg/dL (8-26) Creatinine 1.2mg/dL (0.7-1.3) Estimated GFR (Cockcroft-Gault) 62.4 BUN/Creatinine Ratio 33 (6-20) Glucose Level 152mg/dL (70-99) Calcium Level 7.6mg/dL (8.5-10.1) Magnesium Level 2.8mg/dL (1.8-2.4) Total Bilirubin 5.8mg/dL (0.2-1.0) Aspartate Amino Transf (AST/SGOT) 91U/L (15-37) Alanine Aminotransferase (ALT/SGPT) 311U/L (16-63) Alkaline Phosphatase 209U/L (46-116) Total Protein 5.3g/dL (6.4-8.2) Albumin 2.4g/dL (3.4-5.0) Albumin/Globulin Ratio 0.8 (1.0-1.7) O2 Saturation 88% (92-99) Arterial Blood pH 7.43 (7.35-7.45) Arterial Blood pCO2 at Patient Temp 43mmHg (35-46) Arterial Blood pO2 at Patient Temp 57mmHg (75-108) Arterial Blood HCO3 28mmol/L (21-28) Arterial Blood Base Excess 3mmol/L (-3-3) FiO2 60 Microbiology 07/30/16 Blood Culture - Preliminary, Resulted NO GROWTH AFTER 2 DAYS 07/31/16 Gram Stain - Final, Complete Medications Current Medications Nitroglycerin 0.4 mg 0.4 mg PRN Q5MIN PRN SL CP RATING > 1/10; Start 07/20/16 at 09:45; Stop 07/20/16 at 15:05; Status DC Nitroglycerin/ Dextrose (Nitroglycerin Drip) 250 ml @ 3 mls/hr 1X ONCE IV Last administered on 07/20/16t 10:02; Start 07/20/16 at 10:30; Stop 07/23/16 at 21: 49; Status DC Morphine Sulfate 2 mg PRN Q15MIN PRN IV/SQ PAIN GREATER THAN 3/10; Start at 09:45; Stop 07/21/16 at 09:44; Status DC Ondansetron HCl (Zofran) 4 mg PRN Q8HRS PRN IV NAUSEA/VOMITING; Start 07/20/16 at 12:30; Stop 07/20/16 at 13:36; Status DC Morphine Sulfate 2 mg 2 mg PRN Q2HR PRN IV PAIN; Start 07/20/16 at 12:30; Stop 07/21/16 at 12:29; Status DC Heparin Sodium/ Dextrose 500 ml @ 0 mls/hr CONT PRN IV . Last administered on 10:32; Start 07/20/16 at 13:00; Stop 07/21/16 at 14:50; Status DC Metoprolol Tartrate (Lopressor) 5 mg Q6HRS IVP ; Start 07/20/16 at 13:00; Stop at 14:53; Status DC Aspirin (Ecotrin) 325 mg [id number] PO Last administered on 07/21/16 08:11; Start 07/20/16 at 13:00; Stop 07/21/16 at 17:20; Status DC Ondansetron HCl (Zofran) 4 mg PRN Q6HRS PRN IV NAUSEA/VOMITING; Start 07/20/16 at 13:35; Stop 07/26/16 at 11:41; Status DC Acetaminophen (Tylenol) 500 mg PRN Q6HRS PRN PO MILD PAIN / TEMP Last administered on 07/29/16 09:55; Start 07/20/16 at 13:45; Stop 07/29/16 at 13:38 ; Status DC Docusate Sodium (Colace) 100 mg DAILY PO Last administered on 07/29/16 09:54; Start 07/20/16 at 15:00; Stop 07/29/16 at 10:03; Status DC Iohexol 100 ml 100 ml STK-MED ONCE .ROUTE ; Start 07/20/16 at 12:40; Stop at 13:44; Status DC Heparin Sodium/ Sodium Chloride 1,000 ml @ As Directed STK-MED ONCE .ROUTE ; Start 07/20/16 at 12:41; Stop 07/20/16 at 13:44; Status DC Lidocaine HCl 20 ml STK-MED ONCE .ROUTE ; Start 07/20/16 at 12:41; Stop 07/20/16 at 13:44; Status DC Fentanyl Citrate (Fentanyl 2ml Vial) 100 mcg STK-MED ONCE .ROUTE ; Start at 13:42; Stop 07/20/16 at 13:45; Status DC Midazolam HCl (Versed) 2 mg STK-MED ONCE .ROUTE ; Start 07/20/16 at 13:42; Stop 07/20/16 at 13:45; Status DC Heparin Sodium/ Sodium Chloride 1,000 unit 1X ONCE IART Last administered on 14:29; Start 07/20/16 at 14:00; Stop 07/20/16 at 14:01; Status DC Heparin Sodium/ Sodium Chloride 1,000 unit 1X ONCE IART Last administered on 14:29; Start 07/20/16 at 14:00; Stop 07/20/16 at 14:01; Status DC Midazolam HCl (Versed) 2 mg 1X ONCE IV Last administered on 07/20/16 14:28; Start 07/20/16 at 14:00; Stop 07/20/16 at 14:01; Status DC Fentanyl Citrate (Fentanyl 2ml Vial) 100 mcg 1X ONCE IV Last administered on 14:28; Start 07/20/16 at 14:00; Stop 07/20/16 at 14:01; Status DC Iohexol (Omnipaque 300 Mg/ml) 100 ml 1X ONCE IART Last administered on 14:29; Start 07/20/16 at 14:00; Stop 07/20/16 at 14:01; Status DC Lidocaine HCl 20 ml 1X ONCE IJ Last administered on 07/20/16 14:29; Start 07/20 at 14:00; Stop 07/20/16 at 14:01; Status DC Midazolam HCl (Versed) 2 mg STK-MED ONCE .ROUTE ; Start 07/20/16 at 14:15; Stop 07/20/16 at 14:16; Status DC Sodium Chloride 3 ml 3 ml QSHIFT PRN IV AFTER MEDS AND BLOOD DRAWS; Start at 14:45; Stop 07/29/16 at 13:51; Status DC Sodium Chloride (Iv Sodium Chloride 0.9% 1000ml Bag) 1,000 ml @ 60 mls/hr [id number] IV Last administered on 07/20/16 14:44; Start 07/20/16 at 14:44; Stop at 00:43; Status DC Metoprolol Tartrate (Lopressor) 12.5 mg BID PO ; Start 07/20/16 at 21:00; Stop at 21:00; Status DC Lisinopril (Prinivil) 5 mg DAILY PO Last administered on 07/20/16 16:25; Start 07/20/16 at 15:00; Stop 07/20/16 at 17:21; Status DC Atorvastatin Calcium (Lipitor) 20 mg QHS PO Last administered on 07/20/16 20:33 ; Start 07/20/16 at 21:00; Stop 07/21/16 at 08:11; Status DC Nitroglycerin (Nitrostat) 0.4 mg PRN Q5MIN PRN SL CHEST PAIN Last administered on 07/25/16 04:55; Start 07/20/16 at 14:45; Stop 07/26/16 at 11:41; Status DC Hydralazine HCl (Apresoline) 10 mg PRN Q4HRS PRN IVP ELEVATED BP, SEE COMMENTS Last administered on 07/31/16 10:58; Start 07/20/16 at 17:15; Stop 07/31/16 at 13:31; Status DC Metoprolol Tartrate (Lopressor) 50 mg BID PO Last administered on 07/22/16 08: 31; Start 07/20/16 at 21:00; Stop 07/22/16 at 19:03; Status DC Alprazolam (Xanax) 0.25 mg PRN Q8HRS PRN PO ANXIETY / AGITATION Last administered on 07/24/16 21:34; Start 07/20/16 at 17:30; Stop 07/29/16 at 13:38; Status DC Heparin Sodium (Porcine) 2050 unit 2,050 unit PRN Q6HRS PRN IV FOR UFH LEVEL LESS THAN 0.2 Last administered on 07/21/16 04:24; Start 07/20/16 at 19:45; Stop 07/26/16 at 08:55; Status DC Heparin Sodium/ Dextrose 500 ml @ 19.4 mls/hr CONT PRN IV SEE I/O RECORD; Start 07/20/16 at 19:45; Stop 07/21/16 at 16:24; Status DC Heparin Sodium (Porcine) (Heparin Sodium) 2,050 unit PRN Q6HRS PRN IV FOR UFH LEVEL LESS THAN 0.2; Start 07/20/16 at 19:45; Status UNV Atorvastatin Calcium (Lipitor) 40 mg QHS PO Last administered on 08/01/16 21: 08; Start 07/21/16 at 21:00 Iodixanol (Visipaque 320) 200 ml STK-MED ONCE .ROUTE ; Start 07/20/16 at 14:00; Stop 07/21/16 at 08:26; Status DC Zolpidem Tartrate (Ambien) 5 mg PRN QHS PRN PO INSOMNIA, MAY REPEAT IN 1HR; Start 07/21/16 at 15:30; Stop 07/29/16 at 13:38; Status DC Metoprolol Tartrate 25 mg 25 mg 1X ONCE PO ; Start 07/22/16 at 06:00; Stop at 06:02; Status DC Cefazolin Sodium/ Dextrose 50 ml @ 100 mls/hr 1X ONCE IV ; Start 07/22/16 at 06 :00; Stop 07/22/16 at 06:29; Status DC Heparin Sodium/ Dextrose 500 ml @ 0 mls/hr CONT PRN IV SEE I/O RECORD Last administered on 07/24/16 01:40; Start 07/21/16 at 16:30; Stop 07/26/16 at 08:55; Status DC Lidocaine HCl 2 ml 2 ml 1X PRN PRN ID IV START; Start 07/25/16 at 06:00; Stop 07/26/16 at 05:59; Status Cancel Lactated Ringer's (Iv Lactated Ringers) 1,000 ml @ 0 mls/hr Q0M IV Last administered on 07/25/16 07:30; Start 07/25/16 at 06:00; Stop 07/25/16 at 17:59 ; Status DC Fentanyl Citrate (Fentanyl 2ml Vial) 25 mcg PRN Q5MIN PRN IV Acute Pain; Start 07/22/16 at 09:15; Stop 07/23/16 at 09:14; Status DC Morphine Sulfate 2 mg PRN Q10MIN PRN IV Mild Pain; Start 07/22/16 at 09:15; Stop 07/23/16 at 09:14; Status DC Hydromorphone HCl (Dilaudid) 0.4 mg PRN Q10MIN PRN IV Moderate to severe pain; Start 07/22/16 at 09:15; Stop 07/23/16 at 09:14; Status DC Ondansetron HCl (Zofran) 4 mg PRN Q6HRS PRN IV Nausea, 1st Choice; Start at 09:15; Stop 07/23/16 at 09:14; Status DC Prochlorperazine Edisylate (Compazine) 5 mg PRN Q6HRS PRN IV Nausea/Vomiting, 2nd Choice; Start 07/22/16 at 09:15; Stop 07/23/16 at 09:14; Status DC Ondansetron HCl (Zofran) 4 mg PRN Q6HRS PRN IV NAUSEA/VOMITING; Start 07/25/16 at 07:00; Stop 07/26/16 at 06:59; Status DC Fentanyl Citrate (Fentanyl 2ml Vial) 25 mcg PRN Q5MIN PRN IV MILD PAIN; Start 07/25/16 at 07:00; Stop 07/26/16 at 06:59; Status DC Fentanyl Citrate (Fentanyl 2ml Vial) 50 mcg PRN Q5MIN PRN IV MODERATE PAIN; Start 07/25/16 at 07:00; Stop 07/26/16 at 06:59; Status DC Morphine Sulfate 1 mg 1 mg PRN Q10MIN PRN IV SEVERE PAIN; Start 07/25/16 at 07: 00; Stop 07/25/16 at 20:28; Status DC Lactated Ringer's (Iv Lactated Ringers) 1,000 ml @ 0 mls/hr Q0M IV ; Start 01/31 at 07:00; Stop 07/25/16 at 18:59; Status Cancel Lidocaine HCl 2 ml PRN 1X PRN ID PRIOR TO IV START Last administered on 07:16; Start 07/25/16 at 07:00; Stop 07/26/16 at 06:59; Status DC Hydromorphone HCl (Dilaudid) 0.5 mg PRN Q10MIN PRN IV SEV PAIN, Second choice; Start 07/25/16 at 07:00; Stop 07/26/16 at 06:59; Status DC Prochlorperazine Edisylate 5 mg 5 mg PACU PRN PRN IV NAUSEA, MRX1; Start at 07:00; Stop 07/26/16 at 06:59; Status DC Cefazolin Sodium/ Dextrose (Ancef 2gm Premix) 50 ml @ 100 mls/hr 1X ONCE IV Last administered on 07/25/16 08:12; Start 07/25/16 at 06:00; Stop 07/25/16 at 06:29; Status DC Metoprolol Tartrate (Lopressor) 25 mg 1X ONCE PO ; Start 07/25/16 at 06:00; Stop 07/25/16 at 06:00; Status DC Metoprolol Tartrate (Lopressor) 2.5 mg 1X ONCE IVP Last administered on 16:30; Start 07/22/16 at 16:30; Stop 07/22/16 at 16:31; Status DC Digoxin (Lanoxin) 250 mcg 1X ONCE IV ; Start 07/22/16 at 18:30; Stop 07/22/16 at 18:42; Status DC Digoxin (Lanoxin) 500 mcg 1X ONCE IV Last administered on 07/22/16 18:47; Start 07/22/16 at 18:45; Stop 07/22/16 at 18:46; Status DC Metoprolol Tartrate (Lopressor) 75 mg BID PO Last administered on 07/24/16 21: 30; Start 07/22/16 at 21:00; Stop 07/25/16 at 13:12; Status DC Nitroglycerin 0.4 mg 0.4 mg PRN Q5MIN PRN SL CHEST PAIN; Start 07/23/16 at 12:00 ; Status UNV Heparin Sodium (Porcine) 62419 unit/Lactated Ringer's 1,020 ml @ 1,020 mls/hr 1X PERIOP ONCE IRR Last administered on 07/25/16 08:46; Start 07/25/16 at 06: 00; Stop 07/25/16 at 06:59; Status DC Potassium Chloride 70 meq/ Sodium Bicarbonate 12.5 meq/Lidocaine HCl 24 ml/ Parenteral Electrolytes 571.5 ml @ 571.5 mls/ hr 1X PERIOP ONCE IRR ; Start at 06:00; Stop 07/25/16 at 06:59; Status DC Potassium Chloride/Sodium Bicarbonate/ Parenteral Electrolytes (Isolyte S) 520 ml @ 520 mls/hr 1X PERIOP ONCE IRR ; Start 07/25/16 at 06:00; Stop 07/25/16 at 06:59; Status DC Etomidate (Amidate) 20 mg STK-MED ONCE IV ; Start 07/25/16 at 06:08; Stop at 06:09; Status DC Phenylephrine HCl (-Synephrine Inj) 10 mg STK-MED ONCE .ROUTE ; Start at 06:08; Stop 07/25/16 at 06:09; Status DC Aminocaproic Acid (Amicar) 5,000 mg STK-MED ONCE IV ; Start 07/25/16 at 06:08; Stop 07/25/16 at 06:09; Status DC Heparin Sodium (Porcine) (Heparin Sodium) 10,000 unit STK-MED ONCE .ROUTE ; Start 07/25/16 at 06:10; Stop 07/25/16 at 06:11; Status DC Rocuronium [place] (Zemuron) 100 mg STK-MED ONCE .ROUTE ; Start 07/25/16 at 06: 11; Stop 07/25/16 at 06:12; Status DC Morphine Sulfate 4 mg STK-MED ONCE .ROUTE ; Start 07/25/16 at 06:59; Stop at 07:00; Status DC Morphine Sulfate 4 mg 4 mg 1X ONCE IV ; Start 07/25/16 at 07:15; Stop 07/25/16 at 07:16; Status DC Cefazolin Sodium/ Sodium Chloride (Ancef/Iv Sodium Chloride 0.9% 500ml Bag) 500 ml @ 500 mls/hr 1X PERIOP ONCE IRR Last administered on 07/25/16 08:46; Start 07/25/16 at 07:15; Stop 07/25/16 at 08:14; Status DC Cellulose 1 each STK-MED ONCE .ROUTE Last administered on 07/25/16 08:46; Start 07/25/16 at 07:07; Stop 07/25/16 at 07:08; Status DC Vancomycin HCl (Vanco) 10 gm STK-MED ONCE .ROUTE Last administered on 08:46; Start 07/25/16 at 07:07; Stop 07/25/16 at 07:08; Status DC Papaverine HCl 60 mg STK-MED ONCE .ROUTE Last administered on 07/25/16 08:46; Start 07/25/16 at 07:07; Stop 07/25/16 at 07:08; Status DC Aspirin (Aspirin) 300 mg STK-MED ONCE .ROUTE Last administered on 4/10/17at 17: 25; Start 07/25/16 at 07:08; Stop 07/25/16 at 07:09; Status DC Sodium Chloride (Sodium Chloride) 50 ml STK-MED ONCE IJ Last administered on t 08:46; Start 07/25/16 at 07:08; Stop 07/25/16 at 07:09; Status DC Midazolam HCl (Versed) 2 mg STK-MED ONCE .ROUTE ; Start 07/25/16 at 07:15; Stop 07/25/16 at 07:16; Status DC Ephedrine Sulfate 50 mg 50 mg STK-MED ONCE IV ; Start 07/25/16 at 07:16; Stop at 07:17; Status DC Nitroglycerin/ Dextrose (Nitroglycerin Drip) 250 ml @ As Directed STK-MED ONCE IV ; Start 07/25/16 at 07:16; Stop 07/25/16 at 07:17; Status DC Midazolam HCl (Versed) 2 mg STK-MED ONCE .ROUTE ; Start 07/25/16 at 07:18; Stop 07/25/16 at 07:19; Status DC Fentanyl Citrate (Fentanyl 2ml Vial) 100 mcg STK-MED ONCE .ROUTE ; Start at 07:19; Stop 07/25/16 at 07:20; Status DC Sufentanil Citrate (Sufenta) 100 mcg STK-MED ONCE .ROUTE ; Start 07/25/16 at 07: 19; Stop 07/25/16 at 07:20; Status DC Midazolam HCl (Versed) 2 mg 1X ONCE IV ; Start 07/25/16 at 08:00; Stop at 08:01; Status DC Dexamethasone Sodium Phosphate (Decadron) 20 mg STK-MED ONCE .ROUTE ; Start 01/31 at 07:58; Stop 07/25/16 at 07:59; Status DC Rocuronium [place] (Zemuron) 100 mg STK-MED ONCE .ROUTE ; Start 07/25/16 at 08: 52; Stop 07/25/16 at 08:53; Status DC Sufentanil Citrate (Sufenta) 100 mcg STK-MED ONCE .ROUTE ; Start 07/25/16 at 08: 53; Stop 07/25/16 at 08:54; Status DC Protamine Sulfate 250 mg STK-MED ONCE IV ; Start 07/25/16 at 10:43; Stop at 10:44; Status DC Rocuronium [place] 100 mg 100 mg STK-MED ONCE .ROUTE ; Start 07/25/16 at 10:52; Stop 07/25/16 at 10:53; Status DC Albumin Human 0 ml @ As Directed STK-MED ONCE IV ; Start 07/25/16 at 10:53; Stop 07/25/16 at 10:54; Status DC Amiodarone HCl/ Dextrose (Cordarone) 518 ml @ 34.53 mls/ hr 1X ONCE IV Last administered on 07/25/16t 18:52; Start 07/25/16 at 11:30; Stop 07/26/16 at 02:30 ; Status DC Sodium Bicarbonate 50 meq STK-MED ONCE .ROUTE ; Start 07/25/16 at 11:35; Stop at 11:36; Status DC Protamine Sulfate 50 mg STK-MED ONCE IV ; Start 07/25/16 at 12:31; Stop at 12:32; Status DC Amiodarone HCl (Cordarone) 150 mg STK-MED ONCE .ROUTE ; Start 07/25/16 at 12:37 ; Stop 07/25/16 at 12:38; Status DC Isoflurane (Isoflurane) 90 ml STK-MED ONCE IH ; Start 07/25/16 at 12:42; Stop at 12:43; Status DC Lidocaine HCl (Lidocaine HCl 2% Abboject) 100 mg STK-MED ONCE .ROUTE ; Start 01/31 at 13:07; Stop 07/25/16 at 13:08; Status DC Mannitol (Mannitol) 12.5 g STK-MED ONCE .ROUTE ; Start 07/25/16 at 13:07; Stop 07/25/16 at 13:08; Status DC Calcium Chloride 1,000 mg STK-MED ONCE IV ; Start 07/25/16 at 13:07; Stop at 13:08; Status DC Sodium Bicarbonate 50 meq 50 meq STK-MED ONCE .ROUTE ; Start 07/25/16 at 13:07; Stop 07/25/16 at 13:08; Status DC Albumin Human (Albuminar) 100 ml @ As Directed STK-MED ONCE IV ; Start at 13:07; Stop 07/25/16 at 13:08; Status DC Magnesium Sulfate 5 gm STK-MED ONCE .ROUTE ; Start 07/25/16 at 13:08; Stop 07/25 at 13:09; Status DC Heparin Sodium (Porcine) 17481 unit 30,000 unit STK-MED ONCE .ROUTE ; Start 01/31 at 13:08; Stop 07/25/16 at 13:09; Status DC Clevidipine (Cleviprex) 100 ml @ 0 mls/hr CONT PRN IV PER PROTOCOL; Start 07/25 at 13:45; Stop 07/26/16 at 11:29; Status DC Heparin Sodium (Porcine) 57942 unit 30,000 unit STK-MED ONCE .ROUTE ; Start 01/31 at 13:39; Stop 07/25/16 at 13:40; Status DC Epinephrine HCl/ Sodium Chloride (Adrenalin/Iv Sodium Chloride 0.9% 250ml) 254 ml @ 3.81 mls/hr CONT PRN IV SEE I/O RECORD; Start 07/25/16 at 13:45 Epinephrine HCl (Epinephrine Syringe) 1 mg STK-MED ONCE .ROUTE ; Start 07/25/16 at 13:52; Stop 07/25/16 at 13:53; Status DC Rocuronium [place] (Zemuron) 100 mg STK-MED ONCE .ROUTE ; Start 07/25/16 at 13: 57; Stop 07/25/16 at 13:58; Status DC Sodium Bicarbonate 50 meq 50 meq STK-MED ONCE .ROUTE ; Start 07/25/16 at 14:04; Stop 07/25/16 at 14:05; Status DC Procainamide HCl/ Dextrose (Pronestyl) 520 ml @ 15.6 mls/hr CONT PRN IV SEE I/ O RECORD; Start 07/25/16 at 14:30; Stop 07/28/16 at 15:22; Status DC Sodium Bicarbonate 50 meq STK-MED ONCE .ROUTE ; Start 07/25/16 at 14:31; Stop at 14:32; Status DC Sodium Bicarbonate 50 meq STK-MED ONCE .ROUTE ; Start 07/25/16 at 14:31; Stop at 14:32; Status DC Protamine Sulfate 50 mg STK-MED ONCE IV ; Start 07/25/16 at 15:13; Stop at 15:14; Status DC Protamine Sulfate 50 mg STK-MED ONCE IV ; Start 07/25/16 at 15:13; Stop at 15:14; Status DC Isoflurane 90 ml 90 ml STK-MED ONCE IH ; Start 07/25/16 at 15:13; Stop 07/25/16 at 15:14; Status DC Dobutamine HCl/ Dextrose 250 ml @ As Directed STK-MED ONCE IV ; Start 07/25/16 at 15:17; Stop 07/25/16 at 15:18; Status DC Iohexol 100 ml 100 ml STK-MED ONCE .ROUTE Last administered on 07/25/16t 15:39 ; Start 07/25/16 at 15:28; Stop 07/25/16 at 15:29; Status DC Norepinephrine Bitartrate 8 mg/ Sodium Chloride 258 ml @ 1.93 mls/hr 1X ONCE IV Last administered on 07/25/16t 18:53; Start 07/25/16 at 16:00; Stop at 08:04; Status DC Albumin Human (Plasmanate) 1,000 ml @ As Directed STK-MED ONCE IV ; Start 07/25 at 16:11; Stop 07/25/16 at 16:12; Status DC Heparin Sodium (Porcine) (Heparin Sodium) 10,000 unit STK-MED ONCE .ROUTE ; Start 07/25/16 at 16:19; Stop 07/25/16 at 16:20; Status DC Lidocaine HCl (Lidocaine HCl 2% Abboject) 100 mg STK-MED ONCE .ROUTE ; Start 01/31 at 16:19; Stop 07/25/16 at 16:20; Status DC Mannitol (Mannitol) 12.5 g STK-MED ONCE .ROUTE ; Start 07/25/16 at 16:19; Stop 07/25/16 at 16:20; Status DC Calcium Chloride 1,000 mg STK-MED ONCE IV ; Start 07/25/16 at 16:19; Stop at 16:20; Status DC Sodium Bicarbonate 50 meq STK-MED ONCE .ROUTE ; Start 07/25/16 at 16:19; Stop at 16:20; Status DC Magnesium Sulfate 5 gm STK-MED ONCE .ROUTE ; Start 07/25/16 at 16:19; Stop 07/25 at 16:20; Status DC Heparin Sodium (Porcine) (Heparin Sodium) 10,000 unit STK-MED ONCE .ROUTE ; Start 07/25/16 at 16:20; Stop 07/25/16 at 16:21; Status DC Lidocaine HCl (Lidocaine HCl 2% Abboject) 100 mg STK-MED ONCE .ROUTE ; Start 01/31 at 16:20; Stop 07/25/16 at 16:21; Status DC Aminocaproic Acid (Amicar) 5,000 mg STK-MED ONCE IV ; Start 07/25/16 at 16:20; Stop 07/25/16 at 16:21; Status DC Mannitol (Mannitol) 12.5 g STK-MED ONCE .ROUTE ; Start 07/25/16 at 16:20; Stop 07/25/16 at 16:21; Status DC Sodium Bicarbonate 50 meq 50 meq STK-MED ONCE .ROUTE ; Start 07/25/16 at 16:20; Stop 07/25/16 at 16:21; Status DC Albumin Human (Albuminar) 100 ml @ As Directed STK-MED ONCE IV ; Start at 16:20; Stop 07/25/16 at 16:21; Status DC Rocuronium Aguila (Zemuron) 50 mg STK-MED ONCE .ROUTE ; Start 07/25/16 at 16:33 ; Stop 07/25/16 at 16:34; Status DC Rocuronium Aguila (Zemuron) 50 mg STK-MED ONCE .ROUTE ; Start 07/25/16 at 16:33 ; Stop 07/25/16 at 16:34; Status DC Protamine Sulfate 50 mg STK-MED ONCE IV ; Start 07/25/16 at 16:34; Stop at 16:35; Status DC Sodium Bicarbonate 50 meq STK-MED ONCE .ROUTE ; Start 07/25/16 at 16:36; Stop at 16:37; Status DC Calcium Chloride 1,000 mg STK-MED ONCE IV ; Start 07/25/16 at 16:41; Stop at 16:42; Status DC Epinephrine HCl (Epinephrine Syringe) 1 mg STK-MED ONCE .ROUTE ; Start 07/25/16 at 16:41; Stop 07/25/16 at 16:42; Status DC Sodium Bicarbonate 50 meq STK-MED ONCE .ROUTE ; Start 07/25/16 at 16:52; Stop at 16:53; Status DC Sodium Bicarbonate 50 meq STK-MED ONCE .ROUTE ; Start 07/25/16 at 16:52; Stop at 16:53; Status DC Sodium Bicarbonate 50 meq STK-MED ONCE .ROUTE ; Start 07/25/16 at 16:52; Stop at 16:53; Status DC Vasopressin (Vasostrict) 20 unit STK-MED ONCE .ROUTE ; Start 07/25/16 at 16:54; Stop 07/25/16 at 16:55; Status DC Famotidine (Pepcid) 20 mg STK-MED ONCE .ROUTE ; Start 07/25/16 at 16:56; Stop at 16:57; Status DC Dexamethasone Sodium Phosphate (Decadron) 20 mg STK-MED ONCE .ROUTE ; Start 01/31 at 16:56; Stop 07/25/16 at 16:57; Status DC Diphenhydramine HCl 50 mg 50 mg STK-MED ONCE .ROUTE ; Start 07/25/16 at 16:56; Stop 07/25/16 at 16:57; Status DC Vasopressin/ Dextrose (Vasostrict) 102 ml @ 6 mls/hr CONT PRN IV SEE I/O RECORD Last administered on 07/28/16t 22:48; Start 07/25/16 at 17:15 Sodium Bicarbonate 50 meq STK-MED ONCE .ROUTE ; Start 07/25/16 at 17:24; Stop at 17:25; Status DC Sodium Bicarbonate 50 meq 50 meq STK-MED ONCE .ROUTE ; Start 07/25/16 at 17:24; Stop 07/25/16 at 17:25; Status DC Cefazolin Sodium/ Dextrose (Ancef 2gm Premix) 50 ml @ As Directed STK-MED ONCE IV ; Start 07/25/16 at 17:32; Stop 07/25/16 at 17:33; Status DC Sodium Chloride 3 ml 3 ml PRN Q12HR PRN IV AFTER MEDS AND BLOOD DRAWS; Start at 17:30; Stop 07/29/16 at 13:38; Status DC Lactated Ringer's 1,000 ml @ 15 mls/hr Q24H IV Last administered on 07/29/16 16:45; Start 07/25/16 at 17:30; Stop 07/31/16 at 15:33; Status DC Insulin Human Regular/Sodium Chloride (Novolin R Vial/ Iv Normal Saline 150ml) 151.5 ml @ 0 mls/hr CONT PRN PRN IV SEE I/O RECORD Last administered on 03:03; Start 07/25/16 at 17:30; Stop 07/29/16 at 13:51; Status DC Dextrose 25 gm 25 gm PRN Q15MIN PRN IV LOW BLOOD SUGAR; Start 07/25/16 at 17:30 ; Stop 07/29/16 at 13:51; Status DC Dopamine HCl/ Dextrose 250 ml @ 0 mls/hr CONT PRN PRN IV SEE I/O RECORD; Start 07/25/16 at 17:30; Stop 07/26/16 at 11:41; Status DC Amiodarone HCl/ Dextrose (Cordarone) 518 ml @ 33.33 mls/ hr CONT PRN PRN IV SEE COMMENTS; Start 07/25/16 at 17:30; Status UNV Info 1 ea CONT PRN PRN MC SEE COMMENTS; Start 07/25/16 at 17:30 Info 1 ea 1 ea CONT PRN PRN MC SEE COMMENTS; Start 07/25/16 at 17:30 Magnesium Sulfate/ Dextrose (Magnesium Sulfate PREMIX 1GM) 100 ml @ 100 mls/hr PRN DAILY PRN IV FOR MAG < 2.2 Last administered on 07/27/16 10:59; Start 01/31 at 17:30 Famotidine (Pepcid) 20 mg BID IVP Last administered on 08/02/16 08:56; Start 07/25/16 at 21:00 Metoclopramide HCl (Reglan) 10 mg PRN Q6HRS PRN IV NAUSEA/VOMITING Last administered on 07/29/16 09:54; Start 07/25/16 at 17:30 Morphine Sulfate 2 mg PRN Q1HR PRN IV PAIN Last administered on 07/28/16 14:21 ; Start 07/25/16 at 17:30; Stop 07/29/16 at 13:38; Status DC Acetaminophen (Tylenol) 650 mg PRN Q4HRS PRN PO MILD PAIN / TEMP; Start at 17:30; Stop 07/29/16 at 13:38; Status DC Acetaminophen (Acetaminophen Supp) 650 mg PRN Q4HRS PRN NC MILD PAIN / TEMP; Start 07/25/16 at 17:30 Meperidine HCl 12.5 mg 12.5 mg PRN Q15MIN PRN IV SHIVERING; Start 07/25/16 at 17:30; Stop 07/29/16 at 13:38; Status DC Propofol (Diprivan) 100 ml @ 0 mls/hr CONT PRN PRN IV POSTOP SEDATION UNTIL EXTUBATE; Start 07/25/16 at 17:30; Stop 07/28/16 at 15:22; Status DC Aspirin (Ecotrin) 325 mg DAILYWBKFT PO Last administered on 07/29/16 09:54; Start 07/26/16 at 08:00; Stop 07/29/16 at 09:59; Status DC Aspirin (Aspirin) 300 mg PRN DAILY PRN NC IF UNABLE TO TAKE PO; Start 07/25/16 at 17:30; Stop 07/26/16 at 12:00; Status DC Acetaminophen/ Hydrocodone Bitart (Lortab 5/325) 1 tab PRN Q4HRS PRN PO MILD PAIN; Start 07/25/16 at 17:30 Acetaminophen/ Hydrocodone Bitart 2 tab 2 tab PRN Q4HRS PRN PO MODERATE PAIN, SEVERE PAIN; Start 07/25/16 at 17:30 Cefazolin Sodium/ Dextrose 50 ml @ 100 mls/hr Q8H IV ; Start 07/25/16 at 18:00 ; Stop 07/25/16 at 21:42; Status DC Albumin Human 250 ml @ 62.5 mls/hr 1X ONCE IV Last administered on 07/27/16 17:52; Start 07/25/16 at 17:30; Stop 07/25/16 at 21:29; Status DC Midazolam HCl 100 ml @ As Directed STK-MED ONCE IV ; Start 07/25/16 at 18:06; Stop 07/25/16 at 18:07; Status DC Midazolam HCl 100 ml @ 0 mls/hr CONT PRN IV SEE I/O RECORD Last administered on 07/25/16 18:56; Start 07/25/16 at 18:15; Stop 07/26/16 at 08:59; Status DC Vancomycin HCl 1 gm/Sodium Chloride 250 ml @ 250 mls/hr 1X ONCE IV Last administered on 07/25/16 20:56; Start 07/25/16 at 18:15; Stop 07/25/16 at 19:14 ; Status DC Piperacillin Sod/ Tazobactam Sod/ Sodium Chloride (Zosyn/Iv Sodium Chloride 0.9 % 50ml) 50 ml @ 100 mls/hr Q6HRS IV Last administered on 07/31/16 05:32; Start 07/25/16 at 18:15; Stop 07/31/16 at 10:25; Status DC Midazolam HCl (Versed) 2 mg PRN Q20MIN PRN IV SEDATION; Start 07/25/16 at 18:15 ; Stop 07/25/16 at 18:39; Status DC Midazolam HCl 5 mg 5 mg PRN Q30MIN PRN IV SEDATION; Start 07/25/16 at 18:15; Stop 07/25/16 at 18:39; Status DC Vecuronium Aguila 100 mg/ Dextrose 100 ml @ 0 mls/hr 1X ONCE IV Last administered on 07/25/16 19:43; Start 07/25/16 at 18:15; Stop 07/25/16 at 18:17 ; Status DC Midazolam HCl 100 ml @ 0 mls/hr CONT PRN IV SEE I/O RECORD Last administered on 07/28/16 19:40; Start 07/25/16 at 18:45 Dobutamine HCl/ Dextrose 250 ml @ 0 mls/hr CONT PRN IV SEE I/O RECORD Last administered on 07/29/16 03:10; Start 07/25/16 at 18:45; Stop 07/29/16 at 13:38 ; Status DC Potassium Chloride 50 ml @ 50 mls/hr Q1H IV Last administered on 07/25/16 22: 58; Start 07/25/16 at 21:00; Stop 07/25/16 at 23:59; Status DC Cefazolin Sodium/ Dextrose 50 ml @ 100 mls/hr Q8H IV Last administered on 07/27 05:34; Start 07/25/16 at 22:00; Stop 07/27/16 at 06:29; Status DC Heparin Sodium (Porcine) 70086 unit/Dextrose 512.5 ml @ 0 mls/hr Q0M ONCE IV Last administered on 07/25/16 22:21; Start 07/25/16 at 22:15; Stop 07/25/16 at 22:16; Status DC Vecuronium Aguila/Dextrose (Norcuron) 100 ml @ 0 mls/hr CONT PRN IV SEE I/O RECORD Last administered on 07/26/16 01:07; Start 07/26/16 at 00:45; Stop 07/29 at 13:38; Status DC Dextrose 25 gm 25 gm 1X ONCE IV Last administered on 07/26/16 01:08; Start at 01:00; Stop 07/26/16 at 01:18; Status DC Amiodarone HCl/ Dextrose (Cordarone) 259 ml @ 17.26 mls/ hr CONT PRN IV SEE I/ O RECORD Last administered on 07/30/16 13:02; Start 07/26/16 at 06:45; Stop at 15:33; Status DC Cefazolin Sodium/ Dextrose 2 gm 2 gm STK-MED ONCE IV ; Start 07/25/16 at 11:00; Stop 07/26/16 at 08:53; Status DC Lactated Ringer's 500 ml @ 5,000 mls/hr PRN Q10MIN PRN IV CVP <14; Start 07/26 at 10:00; Stop 07/29/16 at 13:38; Status DC Fentanyl Citrate (Fentanyl 600 Mcg/30 ml UPHOLSTERER ASSEMBLY LINE) 30 ml @ 0 mls/hr CONT PRN IV PROTOCOL Last administered on 07/31/16 09:12; Start 07/26/16 at 10:00; Stop at 13:31; Status DC Fentanyl Citrate (Fentanyl 2ml Vial) 25 mcg PRN Q1HR PRN IV COMM; Start at 10:00; Stop 07/29/16 at 13:38; Status DC Fentanyl Citrate (Fentanyl 2ml Vial) 50 mcg PRN Q1HR PRN IV COMM; Start at 10:00; Stop 07/29/16 at 13:38; Status DC Chlorhexidine Gluconate (Peridex) 15 ml BID MM Last administered on 08/02/16 08:56; Start 07/26/16 at 10:30 Sulfur Hexafluoride Microspheres (Lumason) 25 mg STK-MED ONCE IVP ; Start at 11:29; Stop 07/26/16 at 11:30; Status DC Aspirin 300 mg 300 mg DAILY NC Last administered on 07/28/16 07:55; Start 03/03 at 12:00; Stop 07/29/16 at 19:10; Status DC Potassium Chloride (KCl Premix 20meq) 50 ml @ 50 mls/hr 1X ONCE IV Last administered on 07/26/16 12:55; Start 07/26/16 at 12:00; Stop 07/26/16 at 12:59 ; Status DC Sulfur Hexafluoride Microspheres (Lumason) 25 mg 1X ONCE IVP Last administered on 07/26/16 11:45; Start 07/26/16 at 11:45; Stop 07/26/16 at 11:50 ; Status DC Multi-Ingred Cream/Lotion/Oil/ Oint (Artificial Tears Eye Oint) 1 adri BID OU Last administered on 08/02/16 08:56; Start 07/26/16 at 21:00 Ondansetron HCl (Zofran) 4 mg PRN Q6HRS PRN IV NAUSEA/VOMITING; Start 07/27/16 at 07:00; Stop 07/28/16 at 06:59; Status DC Fentanyl Citrate (Fentanyl 2ml Vial) 25 mcg PRN Q5MIN PRN IV MILD PAIN; Start 07/27/16 at 07:00; Stop 07/28/16 at 06:59; Status DC Fentanyl Citrate (Fentanyl 2ml Vial) 50 mcg PRN Q5MIN PRN IV MODERATE PAIN; Start 07/27/16 at 07:00; Stop 07/28/16 at 06:59; Status DC Morphine Sulfate 1 mg 1 mg PRN Q10MIN PRN IV SEVERE PAIN; Start 07/27/16 at 07: 00; Stop 07/28/16 at 06:59; Status DC Lactated Ringer's (Iv Lactated Ringers) 1,000 ml @ 30 mls/hr Q24H IV Last administered on 07/26/16 17:25; Start 07/27/16 at 07:00; Stop 07/27/16 at 18:59 ; Status DC Lidocaine HCl 2 ml PRN 1X PRN ID PRIOR TO IV START; Start 07/27/16 at 07:00; Stop 07/28/16 at 06:59; Status DC Hydromorphone HCl (Dilaudid) 0.5 mg PRN Q10MIN PRN IV SEV PAIN, Second choice; Start 07/27/16 at 07:00; Stop 07/28/16 at 06:59; Status DC Prochlorperazine Edisylate 5 mg 5 mg PACU PRN PRN IV NAUSEA, MRX1; Start at 07:00; Stop 07/28/16 at 06:59; Status DC Heparin Sodium (Porcine) 30310 unit/Dextrose 512.5 ml @ 0 mls/hr Q0M ONCE IV Last administered on 07/26/16 19:40; Start 07/26/16 at 18:30; Stop 07/26/16 at 18:31; Status DC Amiodarone HCl 150 mg/Dextrose 103 ml @ 618 mls/hr 1X ONCE IV Last administered on 07/26/16 19:25; Start 07/26/16 at 19:15; Stop 07/26/16 at 19:24 ; Status DC Norepinephrine Bitartrate 8 mg/ Sodium Chloride 258 ml @ 1.93 mls/hr CONT PRN IV SEE I/O RECORD Last administered on 07/28/16 04:46; Start 07/26/16 at 19:15 Amiodarone HCl 900 mg/Dextrose 518 ml @ 0 mls/hr CONT PRN IV PER PROTOCOL; Start 07/26/16 at 19:15; Stop 07/27/16 at 12:11; Status DC Milrinone Lactate/ Dextrose 100 ml @ 0 mls/hr CONT PRN IV SEE I/O RECORD Last administered on 07/26/16 20:03; Start 07/26/16 at 19:45; Stop 07/29/16 at 13:51 ; Status DC Calcium Chloride/ Sodium Chloride (Iv Sodium Chloride 0.9% 100ml) 120 ml @ 240 mls/hr 1X ONCE IV Last administered on 07/26/16 21:04; Start 07/26/16 at 21: 30; Stop 07/26/16 at 21:59; Status DC Digoxin 500 mcg 500 mcg 1X ONCE IV Last administered on 07/26/16 21:55; Start 07/26/16 at 21:45; Stop 07/26/16 at 21:46; Status DC Cefazolin Sodium/ Sodium Chloride (Ancef/Iv Sodium Chloride 0.9% 500ml Bag) 500 ml @ 500 mls/hr 1X PERIOP ONCE IRR Last administered on 07/27/16 14:37; Start 07/27/16 at 10:00; Stop 07/27/16 at 10:59; Status DC Vancomycin HCl (Vanco) 10 gm 1X ONCE CEMENT Last administered on 07/27/16 14: 37; Start 07/27/16 at 12:30; Stop 07/27/16 at 12:31; Status DC Rocuronium Aguila (Zemuron) 100 mg STK-MED ONCE .ROUTE ; Start 07/27/16 at 12: 32; Stop 07/27/16 at 12:33; Status DC Lorazepam (Ativan) 2 mg STK-MED ONCE .ROUTE ; Start 07/27/16 at 14:13; Stop 04/02 at 14:14; Status DC Phenylephrine HCl 1 mg 1 mg STK-MED ONCE IV ; Start 07/27/16 at 14:18; Stop 04/02 at 14:19; Status DC Albumin Human (Plasmanate) 250 ml @ 62.5 mls/hr 1X ONCE IV Last administered on 07/27/16 17:52; Start 07/27/16 at 17:15; Stop 07/27/16 at 21:14; Status DC Sodium Bicarbonate 50 meq STK-MED ONCE .ROUTE ; Start 07/27/16 at 17:39; Stop at 17:40; Status DC Sodium Bicarbonate 50 meq 1X ONCE IV Last administered on 07/27/16 17:51; Start 07/27/16 at 18:00; Stop 07/27/16 at 18:01; Status DC Sodium Bicarbonate 50 meq 1X ONCE IV Last administered on 07/27/16 17:52; Start 07/27/16 at 18:00; Stop 07/27/16 at 18:01; Status DC Fentanyl Citrate (Fentanyl 2ml Vial) 25 mcg PRN Q5MIN PRN IV MILD PAIN; Start 07/28/16 at 07:00; Stop 07/29/16 at 06:59; Status DC Fentanyl Citrate (Fentanyl 2ml Vial) 50 mcg PRN Q5MIN PRN IV MODERATE PAIN; Start 07/28/16 at 07:00; Stop 07/29/16 at 06:59; Status DC Morphine Sulfate 1 mg 1 mg PRN Q10MIN PRN IV SEVERE PAIN; Start 07/28/16 at 07: 00; Stop 07/29/16 at 06:59; Status DC Lactated Ringer's (Iv Lactated Ringers) 1,000 ml @ 30 mls/hr Q24H IV Last administered on 07/28/16 06:49; Start 07/28/16 at 06:49; Stop 07/28/16 at 18:48 ; Status DC Lidocaine HCl 2 ml PRN 1X PRN ID PRIOR TO IV START; Start 07/28/16 at 07:00; Stop 07/29/16 at 06:59; Status DC Hydromorphone HCl (Dilaudid) 0.5 mg PRN Q10MIN PRN IV SEV PAIN, Second choice; Start 07/28/16 at 07:00; Stop 07/29/16 at 06:59; Status DC Rocuronium Aguila 50 mg 50 mg STK-MED ONCE .ROUTE ; Start 07/28/16 at 07:27; Stop 07/28/16 at 07:28; Status DC Cefazolin Sodium/ Sodium Chloride (Ancef/Iv Sodium Chloride 0.9% 500ml Bag) 500 ml @ 500 mls/hr 1X PERIOP ONCE IRR Last administered on 07/28/16 09:25; Start 07/28/16 at 08:00; Stop 07/28/16 at 08:59; Status DC Cellulose 1 each STK-MED ONCE .ROUTE ; Start 07/28/16 at 07:42; Stop 07/28/16 at 07:43; Status DC Bupivacaine HCl/ Epinephrine Bitart 50 ml 50 ml STK-MED ONCE .ROUTE ; Start at 07:42; Stop 07/28/16 at 07:43; Status DC Heparin Sodium (Porcine)/Sodium Chloride (Heparin Sodium/ Iv Sodium Chloride 0.9 % 500ml Bag) 505 ml @ 505 mls/hr 1X PERIOP ONCE IRR Last administered on 07/28t 10:19; Start 07/28/16 at 08:15; Stop 07/28/16 at 09:14; Status DC Lorazepam 2 mg 2 mg STK-MED ONCE .ROUTE ; Start 07/28/16 at 08:29; Stop at 08:30; Status DC Magnesium Sulfate/ Dextrose (Magnesium Sulfate PREMIX 1GM) 100 ml @ 100 mls/hr 1X ONCE IV Last administered on 07/28/16t 13:09; Start 07/28/16 at 09:00; Stop 07/28/16 at 09:59; Status DC Vasopressin (Vasostrict) 20 unit STK-MED ONCE .ROUTE ; Start 07/28/16 at 09:03; Stop 07/28/16 at 09:04; Status DC Epinephrine HCl (Epinephrine Syringe) 1 mg STK-MED ONCE .ROUTE ; Start 07/28/16 at 09:09; Stop 07/28/16 at 09:10; Status DC Calcium Chloride 1,000 mg STK-MED ONCE IV ; Start 07/28/16 at 09:09; Stop at 09:10; Status DC Phenylephrine HCl 1 mg STK-MED ONCE IV ; Start 07/28/16 at 09:54; Stop 07/28/16 at 09:55; Status DC Sevoflurane 60 ml 60 ml STK-MED ONCE IH ; Start 07/28/16 at 09:54; Stop at 09:55; Status DC Epinephrine HCl/ Sodium Chloride (Adrenalin/Iv Sodium Chloride 0.9% 250ml) 254 ml @ 3.81 mls/hr 1X ONCE IV ; Start 07/28/16 at 10:00; Stop 07/29/16 at 19:10 ; Status DC Heparin Sodium (Porcine) 99660 unit 10,000 unit STK-MED ONCE .ROUTE ; Start at 09:57; Stop 07/28/16 at 09:58; Status DC Albumin Human (Plasmanate) 500 ml @ As Directed STK-MED ONCE IV ; Start at 09:57; Stop 07/28/16 at 09:58; Status DC Iohexol 100 ml 100 ml STK-MED ONCE .ROUTE ; Start 07/28/16 at 10:39; Stop at 10:40; Status DC Heparin Sodium/ Sodium Chloride 500 ml @ As Directed STK-MED ONCE .ROUTE ; Start 07/28/16 at 10:39; Stop 07/28/16 at 10:40; Status DC Iohexol 100 ml 100 ml STK-MED ONCE .ROUTE ; Start 07/28/16 at 10:43; Stop at 10:44; Status DC Heparin Sodium/ Sodium Chloride 500 ml @ As Directed STK-MED ONCE .ROUTE ; Start 07/28/16 at 11:21; Stop 07/28/16 at 11:22; Status DC Albuterol Sulfate (Ventolin Neb Soln) 2.5 mg RTQID NEB Last administered on 08:46; Start 07/28/16 at 12:00; Stop 07/30/16 at 17:05; Status DC Furosemide (Lasix) 40 mg 1X ONCE IVP Last administered on 07/28/16 13:16; Start 07/28/16 at 13:15; Stop 07/28/16 at 13:16; Status DC Furosemide (Lasix) 40 mg 1X ONCE IVP Last administered on 07/28/16 13:19; Start 07/28/16 at 14:00; Stop 07/28/16 at 14:01; Status DC Heparin Sodium/ Sodium Chloride 1000 unit 1,000 unit CONT PRN IV ART LINE FLUSH Last administered on 08/02/16 06:47; Start 07/28/16 at 14:45 Albumin Human 250 ml @ 62.5 mls/hr PRN Q1HR PRN IV SEE COMMENTS Last administered on 07/28/16 20:16; Start 07/28/16 at 15:15 Furosemide 100 mg/ Sodium Chloride 100 ml @ 5 mls/hr CONT PRN IV SEE I/O RECORD Last administered on 07/30/16 09:50; Start 07/28/16 at 15:30; Stop 07/31 at 13:31; Status DC Potassium Chloride 50 ml @ 50 mls/hr Q1H IV Last administered on 07/28/16 19: 39; Start 07/28/16 at 18:30; Stop 07/28/16 at 20:29; Status DC Potassium Chloride (KCl Premix 20meq) 50 ml @ 50 mls/hr Q1H IV Last administered on 07/29/16 09:36; Start 07/29/16 at 07:00; Stop 07/29/16 at 08:59 ; Status DC Lorazepam (Ativan) 2 mg STK-MED ONCE .ROUTE ; Start 07/28/16 at 08:30; Stop at 08:16; Status DC Aspirin (Arti Aspirin) 325 mg DAILYWBKFT PO Last administered on 08/02/16 08: 55; Start 07/30/16 at 08:00 Docusate Sodium 100 mg 100 mg DAILY PO Last administered on 07/31/16 07:59; Start 07/30/16 at 09:00; Stop 07/31/16 at 11:00; Status DC Dobutamine HCl/ Dextrose 250 ml @ 12.1 mls/hr CONT PRN IV PER PROTOCOL Last administered on 08/01/16 19:21; Start 07/29/16 at 13:30 Potassium Chloride 50 ml @ 50 mls/hr Q1H IV Last administered on 07/29/16 22: 39; Start 07/29/16 at 20:00; Stop 07/29/16 at 22:59; Status DC Potassium Chloride (KCl Premix 20meq) 50 ml @ 50 mls/hr Q1H IV Last administered on 07/30/16 09:19; Start 07/30/16 at 07:00; Stop 07/30/16 at 08:59 ; Status DC Ipratropium Aguila (Atrovent) 0.5 mg RTQID NEB Last administered on 08/02/16 07:45; Start 07/30/16 at 12:30 Digoxin 500 mcg 500 mcg 1X ONCE IV Last administered on 07/30/16 13:01; Start 07/30/16 at 12:15; Stop 07/30/16 at 12:19; Status DC Dexmedetomidine HCl/Sodium Chloride (Precedex/Iv Sodium Chloride 0.9% 50ml) 50 ml @ 0 mls/hr CONT PRN IV PER PROTOCOL Last administered on 07/30/16 15:00; Start 07/30/16 at 13:30 Atropine Sulfate 0.5 mg PRN Q5MIN PRN IV SEE COMMENTS; Start 07/30/16 at 13:30 Amiodarone HCl (Cordarone) 400 mg ONCE ONCE PO Last administered on 07/30/16 15:01; Start 07/30/16 at 13:30; Stop 07/30/16 at 13:46; Status DC Amiodarone HCl (Cordarone) 400 mg BID PO Last administered on 08/02/16 08:55; Start 07/30/16 at 21:00 Digoxin 125 mcg 125 mcg DAILY IV Last administered on 08/02/16 08:56; Start at 09:00 Albumin Human (Albuminar) 50 ml @ 50 mls/hr 1X ONCE IV Last administered on 16:26; Start 07/30/16 at 16:30; Stop 07/30/16 at 17:29; Status DC Ibuprofen (Motrin) 200 mg PRN Q6HRS PRN PO fever; Start 07/30/16 at 19:45; Stop 08/01/16 at 12:22; Status DC Metoprolol Tartrate (Lopressor) 2.5 mg 1X ONCE IVP Last administered on 20:23; Start 07/30/16 at 20:30; Stop 07/30/16 at 20:31; Status DC Metoprolol Tartrate 5 mg 5 mg PRN Q2HR PRN IVP HYPERTENSION Last administered on 07/31/16 08:04; Start 07/30/16 at 22:30 Potassium Chloride (KCl Premix 20meq) 50 ml @ 50 mls/hr Q1H IV Last administered on 07/31/16 09:04; Start 07/31/16 at 07:00; Stop 07/31/16 at 08:59 ; Status DC Metoprolol Tartrate (Lopressor) 12.5 mg BID NG Last administered on 08/02/16 08:55; Start 07/31/16 at 10:00 Docusate Sodium (Colace Solution) 100 mg PRN DAILY PRN PO constipation Last administered on 08/01/16 08:40; Start 07/31/16 at 11:00 Hydralazine HCl (Apresoline) 10 mg PRN Q2HRS PRN IVP ELEVATED BP, SEE COMMENTS Last administered on 08/01/16 16:35; Start 07/31/16 at 13:30 Fentanyl Citrate (Fentanyl 2ml Vial) 50 mcg PRN Q2HR PRN IV PAIN Last administered on 07/31/16 18:03; Start 07/31/16 at 13:45 Furosemide (Lasix) 40 mg TID IVP Last administered on 08/02/16 05:49; Start at 14:00 Alteplase, Recombinant (Cathflo) 2 mg 1X ONCE INT CAT Last administered on 23:34; Start 07/31/16 at 23:15; Stop 07/31/16 at 23:16; Status DC Haloperidol Lactate (Haldol) 5 mg PRN Q6HRS PRN IVP MODERATE AGITATION Last administered on 08/01/16 21:21; Start 08/01/16 at 21:00 Haloperidol Lactate 10 mg 10 mg PRN Q6HRS PRN IVP SEVERE AGITATION Last administered on 08/01/16 23:59; Start 08/01/16 at 23:45 Propofol (Diprivan) 100 ml @ 0 mls/hr CONT PRN IV SEE I/O RECORD Last administered on 08/02/16 06:51; Start 08/02/16 at 02:45 Active Scripts Active Reported Amlodipine Besylate 5 Mg Tablet 5 Mg PO DAILY Pradaxa (Dabigatran Etexilate Mesylate) 150 Mg Capsule 1 Cap PO BID Metoprolol Succinate ( Xl ) (Metoprolol Succinate) 100 Mg Tab.er.24h 1 Tab PO DAILY Vitals/I & O Vital Sign - Last 24 Hours 08/01/16 08/01/16 08/01/16 08/01/16 11:00 12:00 12:00 13:00 Temp 99.8 99.8 Pulse 114 112 120 Resp B/P 144/70 146/74 Pulse Ox 98 99 99 O2 Delivery Ventilator Mechanical Ventilator Ventilator 08/01/16 08/01/16 08/01/16 08/01/16 13:08 14:00 15:00 16:00 Pulse 120 122 Resp 16 16 B/P 152/78 154/70 Pulse Ox 99 99 99 O2 Delivery Ventilator Ventilator Ventilator Mechanical Ventilator 08/01/16 08/01/16 08/01/16 08/01/16 16:00 16:35 17:00 17:05 Temp 99.8 99.8 Pulse 122 122 120 Resp 16 16 B/P 152/78 140/60 166/78 Pulse Ox 99 97 99 O2 Delivery Ventilator Ventilator Ventilator 4/17/17 4/17/17 4/17/17 4/17 18:00 19:00 20:00 20:00 Temp 99.0 99.0 Pulse 126 124 126 Resp 16 30 30 B/P 134/66 140/64 136/66 Pulse Ox 99 99 O2 Delivery Ventilator Ventilator Mechanical Ventilator Ventilator 08/01/17 4/17/17 4//17 4/ 20:21 21:00 21:09 21:10 Pulse 138 138 138 Resp 30 B/P 146/70 146/70 146/70 Pulse Ox 98 97 O2 Delivery Ventilator Ventilator 08/01/17 /17/17 4//17 4 22:00 23:00 23:08 23:59 Temp 99.0 99.0 Pulse 124 120 117 Resp 30 28 30 B/P 133/70 120/60 135/63 Pulse Ox 97 98 98 98 O2 Delivery Ventilator Ventilator Ventilator Ventilator 08/01/17 18/17 4/18/17 08/02/16 23:59 00:45 01:00 02:00 Pulse 114 121 Resp 28 27 B/P 138/63 138/67 Pulse Ox 97 97 96 O2 Delivery Mechanical Ventilator Ventilator Ventilator Ventilator 08/02/17 18/17 4/18/17 4 02:30 02:45 02:55 03:00 Pulse 128 126 140 Resp 30 30 26 B/P 140/66 138/66 115/63 Pulse Ox 89 88 90 93 O2 Delivery Ventilator Ventilator Ventilator Ventilator 08/02/17 18/17 4/18/17 4 03:15 03:30 04:00 04:00 Temp 99.2 99.2 Pulse 128 124 118 Resp 28 24 24 B/P 128/60 138/62 121/60 Pulse Ox 93 95 94 O2 Delivery Ventilator Ventilator Ventilator Mechanical Ventilator 08/02/17 4/18/17 4/18/17 4 05:00 05:30 06:00 07:00 Pulse 126 109 120 Resp 24 24 24 B/P 114/56 109/51 110/48 Pulse Ox 92 92 91 90 O2 Delivery Ventilator Ventilator Ventilator Ventilator 18/17 4/18/17 4/18/17 4 07:10 07:45 08:00 08:00 Temp 99.8 99.8 Pulse 131 Resp 24 B/P 97/59 95/47 Pulse Ox 90 87 O2 Delivery Ventilator Mechanical Ventilator Ventilator 08/02/16 08/02/16 08/02/16 08/02/16 08:30 08:55 08:55 08:56 Pulse 131 131 131 B/P 95/47 95/47 95/47 Pulse Ox 90 Intake and Output 08/01/16 08/01/16 08/02/16 15:00 23:00 07:00 Intake Total 60 ml 837 ml 716 ml Output Total 1560 ml 1900 ml 1680 ml Balance -1500 ml -1063 ml -964 ml ANA LAURA OLIVEIRA MD Aug 02, 2016 10:10
--- NOTE | 2016-08-02 10:33 | PDOC ---
SUBJECTIVE Subjective Pt seen/examined. Consult dictated #[id number]. Intubated/sedated. Imaging with small SDH high right near vertex without significant mass effect. Neurological exam limited due to sedation at this time. PERRL. -coagulation on hold -avoid SBP >140 -repeat CT head -lesion not surgical with its present appearance -encephalopathy likely metabolic/multifactorial and unlikely directly related to small ICH -follow OBJECTIVE Vital Signs Vital Signs Date Time Temp Pulse Resp B/P Pulse Ox O2 Delivery O2 Flow Rate FiO2 08/02/16 10:00 118 24 102/50 89 Ventilator 08/02/16 09:00 112 24 109/51 90 Ventilator 08/02/16 08:56 131 95/47 08/02/16 08:55 131 95/47 08/02/16 08:55 131 95/47 08/02/16 08:30 90 08/02/16 08:00 99.8 131 24 95/47 87 Ventilator 99.8 08/02/16 08:00 Mechanical Ventilator 08/02/16 07:45 90 Ventilator 08/02/16 07:10 97/59 08/02/16 07:00 120 24 110/48 90 Ventilator 08/02/16 06:00 109 24 109/51 91 Ventilator 08/02/16 05:30 92 Ventilator 08/02/16 05:00 126 24 114/56 92 Ventilator 08/02/16 04:00 Mechanical Ventilator 08/02/16 04:00 99.2 118 24 121/60 94 Ventilator 99.2 08/02/16 03:30 124 24 138/62 95 Ventilator 08/02/16 03:15 128 28 128/60 93 Ventilator 08/02/16 03:00 140 26 115/63 93 Ventilator 08/02/16 02:55 90 Ventilator 08/02/16 02:45 126 30 138/66 88 Ventilator 08/02/16 02:30 128 30 140/66 89 Ventilator 08/02/16 02:00 121 27 138/67 96 Ventilator 08/02/16 01:00 114 28 138/63 97 Ventilator 08/02/16 00:45 97 Ventilator 08/01/16 23:59 Mechanical Ventilator 08/01/16 23:59 99.0 117 30 135/63 98 Ventilator 99.0 08/01/16 23:08 98 Ventilator 08/01/16 23:00 120 28 120/60 98 Ventilator 08/01/16 22:00 124 30 133/70 97 Ventilator 08/01/16 21:10 138 146/70 08/01/16 21:09 138 146/70 08/01/16 21:00 138 30 146/70 97 Ventilator 08/01/16 20:21 98 Ventilator 08/01/16 20:00 99.0 126 30 136/66 Ventilator 99.0 08/01/16 20:00 Mechanical Ventilator 08/01/16 19:00 124 30 140/64 99 Ventilator 08/01/16 18:00 126 16 134/66 99 Ventilator 08/01/16 17:05 99 Ventilator 08/01/16 17:00 120 16 166/78 97 Ventilator 08/01/16 16:35 122 140/60 08/01/16 16:00 99.8 122 16 152/78 99 Ventilator 99.8 08/01/16 16:00 Mechanical Ventilator 08/01/16 15:00 122 16 154/70 99 Ventilator 08/01/16 14:00 120 16 152/78 99 Ventilator 08/01/16 13:08 99 Ventilator 08/01/16 13:00 120 15 146/74 99 Ventilator 08/01/16 12:00 Mechanical Ventilator 08/01/16 12:00 99.8 112 16 144/70 99 Ventilator 99.8 08/01/16 11:00 114 16 98 I & O Intake and Output 08/02/16 07:00 Intake Total 1613 ml Output Total 5140 ml Balance -3527 ml Intake Oral 0 ml IV Total 201 ml Tube Feeding 1412 ml Output Urine Total 4930 ml Gastric Drainage Total 0 ml Chest Tube Drainage Total 210 ml COMMENT Lab Laboratory Tests Test 08/02/16 00:01 08/02/16 05:50 08/02/16 07:45 Glucose (Fingerstick) 137mg/dL (70-99) White Blood Count 16.1x10^3/uL (4.0-11.0) Red Blood Count 2.90x10^6/uL (4.30-5.70) Hemoglobin 9.0g/dL (13.0-17.5) Hematocrit 28.5% (39.0-53.0) Mean Corpuscular Volume 98fL (79-100) Mean Corpuscular Hemoglobin 31pg (25-35) Mean Corpuscular Hemoglobin Concent 32g/dL (31-37) Red Cell Distribution Width 15.8% (11.5-14.5) Platelet Count 110x10^3/uL (140-400) Neutrophils (%) (Auto) 92% (31-73) Lymphocytes (%) (Auto) 4% (24-48) Monocytes (%) (Auto) 4% (0-9) Eosinophils (%) (Auto) 0% (0-3) Basophils (%) (Auto) 0% (0-3) Neutrophils # (Auto) 14.8x10^3uL (1.8-7.7) Lymphocytes # (Auto) 0.6x10^3/uL (1.0-4.8) Monocytes # (Auto) 0.6x10^3/uL (0.0-1.1) Eosinophils # (Auto) 0.0x10^3/uL (0.0-0.7) Basophils # (Auto) 0.0x10^3/uL (0.0-0.2) Sodium Level 150mmol/L (136-145) Potassium Level 4.3mmol/L (3.5-5.1) Chloride Level 114mmol/L (98-107) Carbon Dioxide Level 27mmol/L (21-32) Anion Gap 9 (6-14) Blood Urea Nitrogen 39mg/dL (8-26) Creatinine 1.2mg/dL (0.7-1.3) Estimated GFR (Cockcroft-Gault) 62.4 BUN/Creatinine Ratio 33 (6-20) Glucose Level 152mg/dL (70-99) Calcium Level 7.6mg/dL (8.5-10.1) Magnesium Level 2.8mg/dL (1.8-2.4) Total Bilirubin 5.8mg/dL (0.2-1.0) Aspartate Amino Transf (AST/SGOT) 91U/L (15-37) Alanine Aminotransferase (ALT/SGPT) 311U/L (16-63) Alkaline Phosphatase 209U/L (46-116) Total Protein 5.3g/dL (6.4-8.2) Albumin 2.4g/dL (3.4-5.0) Albumin/Globulin Ratio 0.8 (1.0-1.7) O2 Saturation 88% (92-99) Arterial Blood pH 7.43 (7.35-7.45) Arterial Blood pCO2 at Patient Temp 43mmHg (35-46) Arterial Blood pO2 at Patient Temp 57mmHg (75-108) Arterial Blood HCO3 28mmol/L (21-28) Arterial Blood Base Excess 3mmol/L (-3-3) FiO2 60 TRYEE NELSON MD Aug 02, 2016 10:33
--- NOTE | 2016-08-02 11:15 | PDOC ---
PULMONARY PROGRESS NOTES Subjective PT SEDATED/ OXYGEN REQUIREMENT INCREASED ON AC MODE Vitals Vital Signs Date Time Temp Pulse Resp B/P Pulse Ox O2 Delivery O2 Flow Rate FiO2 08/02/16 10:00 118 24 102/50 89 Ventilator 08/02/16 08:00 99.8 99.8 HEENT: Other (nc at perrl orally intubated nose clease. neck, no lap thyromegaly) Lungs: Clear Cardiovascular: Other (tachy irregular) Abdomen: Soft, Non-tender, Other Extremities: Other (DECREASE EDEMA) Skin: Warm Labs Laboratory Tests Test 07/31/16 13:35 07/31/16 14:30 08/01/16 06:20 08/01/16 08:55 Prothrombin Time 16.0SEC (11.7-14.0) Prothromb Time International Ratio 1.4 (0.8-1.1) Activated Partial Thromboplast Time 30SEC (24-38) Urine Collection Type U cath Urine Color [place] Urine Clarity Clear Urine pH 8.5 Urine Specific [place] 1.020 Urine Protein Negativemg/dL (NEG-TRACE) Urine Glucose (UA) Negativemg/dL (NEG) Urine Ketones (Stick) Negativemg/dL (NEG) Urine Blood Negative (NEG) Urine Nitrite Negative (NEG) Urine Bilirubin Small (NEG) Urine Urobilinogen Dipstick 1.0mg/dL (0.2 mg/dL) Urine Leukocyte Esterase Negative (NEG) Urine RBC 6-10/HPF (0-2) Urine WBC 1-4/HPF (0-4) Urine Bacteria 0/HPF (0-FEW) Urine Hyaline Casts Few/HPF White Blood Count 12.5x10^3/uL (4.0-11.0) Red Blood Count 2.77x10^6/uL (4.30-5.70) Hemoglobin 8.8g/dL (13.0-17.5) Hematocrit 26.0% (39.0-53.0) Mean Corpuscular Volume 94fL (79-100) Mean Corpuscular Hemoglobin 32pg (25-35) Mean Corpuscular Hemoglobin Concent 34g/dL (31-37) Red Cell Distribution Width 15.6% (11.5-14.5) Platelet Count 106x10^3/uL (140-400) Neutrophils (%) (Auto) 80% (31-73) Lymphocytes (%) (Auto) 12% (24-48) Monocytes (%) (Auto) 6% (0-9) Eosinophils (%) (Auto) 1% (0-3) Basophils (%) (Auto) 0% (0-3) Neutrophils # (Auto) 10.0x10^3uL (1.8-7.7) Lymphocytes # (Auto) 1.5x10^3/uL (1.0-4.8) Monocytes # (Auto) 0.8x10^3/uL (0.0-1.1) Eosinophils # (Auto) 0.1x10^3/uL (0.0-0.7) Basophils # (Auto) 0.0x10^3/uL (0.0-0.2) Segmented Neutrophils % 70% (35-66) Band Neutrophils % 18% (0-9) Lymphocytes % 7% (24-48) Monocytes % 2% (0-10) Eosinophils % 1% (0-5) Metamyelocytes % 2% (0-0) Nucleated Red Blood Cells 5 Platelet Estimate Decreased (ADEQUATE) Polychromasia Slight Basophilic Stippling Present Anisocytosis Slight Sodium Level 148mmol/L (136-145) Potassium Level 4.1mmol/L (3.5-5.1) Chloride Level 111mmol/L (98-107) Carbon Dioxide Level 29mmol/L (21-32) Anion Gap 8 (6-14) Blood Urea Nitrogen 33mg/dL (8-26) Creatinine 1.1mg/dL (0.7-1.3) Estimated GFR (Cockcroft-Gault) 69.0 BUN/Creatinine Ratio 30 (6-20) Glucose Level 143mg/dL (70-99) Calcium Level 7.6mg/dL (8.5-10.1) Magnesium Level 2.7mg/dL (1.8-2.4) Total Bilirubin 6.6mg/dL (0.2-1.0) Direct Bilirubin 4.9mg/dL (0.0-0.2) Aspartate Amino Transf (AST/SGOT) 166U/L (15-37) Alanine Aminotransferase (ALT/SGPT) 411U/L (16-63) Alkaline Phosphatase 208U/L (46-116) Total Protein 5.1g/dL (6.4-8.2) Albumin 2.4g/dL (3.4-5.0) Albumin/Globulin Ratio 0.9 (1.0-1.7) O2 Saturation 96% (92-99) Arterial Blood pH 7.49 (7.35-7.45) Arterial Blood pCO2 at Patient Temp 34mmHg (35-46) Arterial Blood pO2 at Patient Temp 82mmHg (75-108) Arterial Blood HCO3 25mmol/L (21-28) Arterial Blood Base Excess 2mmol/L (-3-3) FiO2 40 Test 08/02/16 00:01 08/02/16 05:50 08/02/16 07:45 Glucose (Fingerstick) 137mg/dL (70-99) White Blood Count 16.1x10^3/uL (4.0-11.0) Red Blood Count 2.90x10^6/uL (4.30-5.70) Hemoglobin 9.0g/dL (13.0-17.5) Hematocrit 28.5% (39.0-53.0) Mean Corpuscular Volume 98fL (79-100) Mean Corpuscular Hemoglobin 31pg (25-35) Mean Corpuscular Hemoglobin Concent 32g/dL (31-37) Red Cell Distribution Width 15.8% (11.5-14.5) Platelet Count 110x10^3/uL (140-400) Neutrophils (%) (Auto) 92% (31-73) Lymphocytes (%) (Auto) 4% (24-48) Monocytes (%) (Auto) 4% (0-9) Eosinophils (%) (Auto) 0% (0-3) Basophils (%) (Auto) 0% (0-3) Neutrophils # (Auto) 14.8x10^3uL (1.8-7.7) Lymphocytes # (Auto) 0.6x10^3/uL (1.0-4.8) Monocytes # (Auto) 0.6x10^3/uL (0.0-1.1) Eosinophils # (Auto) 0.0x10^3/uL (0.0-0.7) Basophils # (Auto) 0.0x10^3/uL (0.0-0.2) Sodium Level 150mmol/L (136-145) Potassium Level 4.3mmol/L (3.5-5.1) Chloride Level 114mmol/L (98-107) Carbon Dioxide Level 27mmol/L (21-32) Anion Gap 9 (6-14) Blood Urea Nitrogen 39mg/dL (8-26) Creatinine 1.2mg/dL (0.7-1.3) Estimated GFR (Cockcroft-Gault) 62.4 BUN/Creatinine Ratio 33 (6-20) Glucose Level 152mg/dL (70-99) Calcium Level 7.6mg/dL (8.5-10.1) Magnesium Level 2.8mg/dL (1.8-2.4) Total Bilirubin 5.8mg/dL (0.2-1.0) Aspartate Amino Transf (AST/SGOT) 91U/L (15-37) Alanine Aminotransferase (ALT/SGPT) 311U/L (16-63) Alkaline Phosphatase 209U/L (46-116) Total Protein 5.3g/dL (6.4-8.2) Albumin 2.4g/dL (3.4-5.0) Albumin/Globulin Ratio 0.8 (1.0-1.7) O2 Saturation 88% (92-99) Arterial Blood pH 7.43 (7.35-7.45) Arterial Blood pCO2 at Patient Temp 43mmHg (35-46) Arterial Blood pO2 at Patient Temp 57mmHg (75-108) Arterial Blood HCO3 28mmol/L (21-28) Arterial Blood Base Excess 3mmol/L (-3-3) FiO2 60 Laboratory Tests Test 08/02/16 00:01 08/02/16 05:50 08/02/16 07:45 Glucose (Fingerstick) 137mg/dL (70-99) White Blood Count 16.1x10^3/uL (4.0-11.0) Red Blood Count 2.90x10^6/uL (4.30-5.70) Hemoglobin 9.0g/dL (13.0-17.5) Hematocrit 28.5% (39.0-53.0) Mean Corpuscular Volume 98fL (79-100) Mean Corpuscular Hemoglobin 31pg (25-35) Mean Corpuscular Hemoglobin Concent 32g/dL (31-37) Red Cell Distribution Width 15.8% (11.5-14.5) Platelet Count 110x10^3/uL (140-400) Neutrophils (%) (Auto) 92% (31-73) Lymphocytes (%) (Auto) 4% (24-48) Monocytes (%) (Auto) 4% (0-9) Eosinophils (%) (Auto) 0% (0-3) Basophils (%) (Auto) 0% (0-3) Neutrophils # (Auto) 14.8x10^3uL (1.8-7.7) Lymphocytes # (Auto) 0.6x10^3/uL (1.0-4.8) Monocytes # (Auto) 0.6x10^3/uL (0.0-1.1) Eosinophils # (Auto) 0.0x10^3/uL (0.0-0.7) Basophils # (Auto) 0.0x10^3/uL (0.0-0.2) Sodium Level 150mmol/L (136-145) Potassium Level 4.3mmol/L (3.5-5.1) Chloride Level 114mmol/L (98-107) Carbon Dioxide Level 27mmol/L (21-32) Anion Gap 9 (6-14) Blood Urea Nitrogen 39mg/dL (8-26) Creatinine 1.2mg/dL (0.7-1.3) Estimated GFR (Cockcroft-Gault) 62.4 BUN/Creatinine Ratio 33 (6-20) Glucose Level 152mg/dL (70-99) Calcium Level 7.6mg/dL (8.5-10.1) Magnesium Level 2.8mg/dL (1.8-2.4) Total Bilirubin 5.8mg/dL (0.2-1.0) Aspartate Amino Transf (AST/SGOT) 91U/L (15-37) Alanine Aminotransferase (ALT/SGPT) 311U/L (16-63) Alkaline Phosphatase 209U/L (46-116) Total Protein 5.3g/dL (6.4-8.2) Albumin 2.4g/dL (3.4-5.0) Albumin/Globulin Ratio 0.8 (1.0-1.7) O2 Saturation 88% (92-99) Arterial Blood pH 7.43 (7.35-7.45) Arterial Blood pCO2 at Patient Temp 43mmHg (35-46) Arterial Blood pO2 at Patient Temp 57mmHg (75-108) Arterial Blood HCO3 28mmol/L (21-28) Arterial Blood Base Excess 3mmol/L (-3-3) FiO2 60 Medications Active Scripts Medications Dose Route/Sig Days Date Category Amlodipine Besylate 5 Mg Tablet 5 Mg PO DAILY 07/20/16 Reported Pradaxa (Dabigatran Etexilate Mesylate) 150 Mg Capsule 1 Cap PO BID 07/20/16 Reported Metoprolol Succinate ( Xl ) (Metoprolol Succinate) 100 Mg Tab.er.24h 1 Tab PO DAILY 07/20/16 Reported Comments cxr reviewed, Stable positioning of lines and tubes, as detailed above. RIGHT perihilar opacities, left basal infiltrate vs atelectasis Impression . 1. Expected respiratory failure, status post coronary artery bypass grafting. 2. Cardiogenic shock. resolved 3. Early post-myocardial infarction complicated with ventricular fibrillation , s/p multiple shocks. 4. Status post implantation of Impella from mechanical circulating support. 5. 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 6. Tobacco use in remission. Spirometry revealed an FEV1, which was 3.2 liters preoperatively. 7. Nutrition, currently on tube feeding. 8. History of hypertension. 9. Severe cardiomyopathy ejection fraction 20%. 10. Peripheral artery disease. 11. Atrial fibrillation. 12. Encephalopathy multifactorial (anoxic, hepatic) 13. Low grade fever, increase oxygen requirement, leukocytosis, atelectasis vs pneumonia, would need Bronch Plan . 1. d/w Dr Hamilton. He agrees with Bronch.d/w . she agrees. 1. AC mode, increase PEEP, Wean FIO2 as tolerated 2. Continue nutritional support with tube feeding. 3. prn pressors 4. Reduce diurese, currently on IV Lasix, pre-renal azotemia 5. Continue empiric antibiotics. 6. He will need Trach towards the end of week cct 30 min MICHAEL SIEGEL MD Aug 02, 2016 11:15
[2016-08-02] MEDS: NOREPINEPHRINE 8 MG in IV NORMAL SALINE 250 ML IV PRN (11:42)
[2016-08-02] MEDS ORDERED: VANCOMYCIN PER PHARMACY MC PRN (11:45)
--- NOTE | 2016-08-02 11:45 | PDOC ---
CARDIO Progress Notes Date and Time Date of Service 07/29/2016 Time of Evaluation 1126 Subjective Subjective: Other (intubated/ventilated/sedated) Vitals Vitals Vital Signs Date Time Temp Pulse Resp B/P Pulse Ox O2 Delivery O2 Flow Rate FiO2 08/02/16 10:00 118 24 102/50 89 Ventilator 08/02/16 08:00 99.8 99.8 Weight Weight [ ] Stability Assessment Stability Assess.: unstable for transfer (Intesive V. sign monit. req) Input and Output Intake and Output Intake and Output 08/02/16 07:00 Intake Total 1613 ml Output Total 5140 ml Balance -3527 ml Intake Oral 0 ml IV Total 201 ml Tube Feeding 1412 ml Output Urine Total 4930 ml Gastric Drainage Total 0 ml Chest Tube Drainage Total 210 ml Laboratory Labs Laboratory Tests Test 08/02/16 00:01 08/02/16 05:50 08/02/16 07:45 Glucose (Fingerstick) 137mg/dL (70-99) White Blood Count 16.1x10^3/uL (4.0-11.0) Red Blood Count 2.90x10^6/uL (4.30-5.70) Hemoglobin 9.0g/dL (13.0-17.5) Hematocrit 28.5% (39.0-53.0) Mean Corpuscular Volume 98fL (79-100) Mean Corpuscular Hemoglobin 31pg (25-35) Mean Corpuscular Hemoglobin Concent 32g/dL (31-37) Red Cell Distribution Width 15.8% (11.5-14.5) Platelet Count 110x10^3/uL (140-400) Neutrophils (%) (Auto) 92% (31-73) Lymphocytes (%) (Auto) 4% (24-48) Monocytes (%) (Auto) 4% (0-9) Eosinophils (%) (Auto) 0% (0-3) Basophils (%) (Auto) 0% (0-3) Neutrophils # (Auto) 14.8x10^3uL (1.8-7.7) Lymphocytes # (Auto) 0.6x10^3/uL (1.0-4.8) Monocytes # (Auto) 0.6x10^3/uL (0.0-1.1) Eosinophils # (Auto) 0.0x10^3/uL (0.0-0.7) Basophils # (Auto) 0.0x10^3/uL (0.0-0.2) Sodium Level 150mmol/L (136-145) Potassium Level 4.3mmol/L (3.5-5.1) Chloride Level 114mmol/L (98-107) Carbon Dioxide Level 27mmol/L (21-32) Anion Gap 9 (6-14) Blood Urea Nitrogen 39mg/dL (8-26) Creatinine 1.2mg/dL (0.7-1.3) Estimated GFR (Cockcroft-Gault) 62.4 BUN/Creatinine Ratio 33 (6-20) Glucose Level 152mg/dL (70-99) Calcium Level 7.6mg/dL (8.5-10.1) Magnesium Level 2.8mg/dL (1.8-2.4) Total Bilirubin 5.8mg/dL (0.2-1.0) Aspartate Amino Transf (AST/SGOT) 91U/L (15-37) Alanine Aminotransferase (ALT/SGPT) 311U/L (16-63) Alkaline Phosphatase 209U/L (46-116) Total Protein 5.3g/dL (6.4-8.2) Albumin 2.4g/dL (3.4-5.0) Albumin/Globulin Ratio 0.8 (1.0-1.7) O2 Saturation 88% (92-99) Arterial Blood pH 7.43 (7.35-7.45) Arterial Blood pCO2 at Patient Temp 43mmHg (35-46) Arterial Blood pO2 at Patient Temp 57mmHg (75-108) Arterial Blood HCO3 28mmol/L (21-28) Arterial Blood Base Excess 3mmol/L (-3-3) FiO2 60 Microbiology Micro Microbiology 07/30/16 Blood Culture - Preliminary, Resulted NO GROWTH AFTER 2 DAYS 07/31/16 Gram Stain - Final, Complete Radiology Rad Impression 08/02: CXR: Comparison is made yesterday study. The ET tube remains in place in satisfactory position. The NG tube extends into the stomach. A right PICC extends to the level of the atriocaval junction. The heart size and pulmonary vascularity are normal. Right lower lobe atelectasis has resolved. There nail appears to be minimal infrahilar atelectasis on the left, accentuated by patient rotation. There is no evidence of pneumothorax or pleural fluid. IMPRESSION: 1. Stable tube positions. 2. Minimal left basilar atelectasis. Case Discussion Case Discussed with: Other (RN) Ventilator Settings Mode: AC Rate(bpm): 18 F02(%): 70 Peep (cm H2O): 7.5 (PEEP setting 8 cm) Physical Exam Chest: Symmetric, Other (oral ETT/oral gastric tube) LUNGS: Other (coarse, decreased bases anteriorly) Heart: S1S2, irregularly irregular, other (atrial fib; intermittently RVR) Abdomen: Soft N/T Extremities: Other (anasarca; DP/PT pulses by Doppler; feet warm) Neurology: other (sedated) Assessment Assessment 1. STEMI troponin peaked @ 96.465 CABG on 07/25/2016 with FLETCHER to LAD; SVG to LAD; SVG to OM1 and SVG to RPDA VF arrest post-op with post-op NJ continue amiodarone 2. cardiogenic shock Impella removed 07/28/2016 - LVEF ~ 25% by echo TTE on 07/26/2016 with severe global hypokinesis of the left ventricle distal 2/3 of the LV is severely hypokinetic with akinesis of the mid to distal LAD and apex LVEF depressed at about 20% remains on dobutamine @ 2.5 mcg/kg/min 3. ischemic cardiomyopathy LVEF mildly depressed @ 45% on echo pre-op furosemide IV tid - off gtt treated with BB; BP does not currently support addition of ACEI 4. acute respiratory failure remains intubated with vent dropped O2 sats early this a.m. & asynchronous ventilation despite Haldol - was placed back on sedation & FiO2 increased bronch this a.m. per PULM 5. HTN low normal today 5. HLD statin therapy 6. atrial fib chronic; has been in and out of atrial fib rate controlled with BB and dig off anticoagulation for now - small frontal right SDH 7. small right frontal SDH surgery not indicated per NS planned repeat of CT 8. metabolic encephalopathy has now be re-sedated NERY DANGELO APRN Aug 02, 2016 11:45
[2016-08-02] MEDS ORDERED: PIPERACILLIN/TAZOBACTAM 3.375 GM in IV NORMAL SALINE 50ML 50 ML IV SCH (12:00)
[2016-08-02] MEDS ORDERED: VANCOMYCIN 2 GM in IV NORMAL SALINE 500ML BAG 500 ML IV ONE (12:00)
--- NOTE | 2016-08-02 12:22 | PDOC ---
PROGRESS NOTES Chief Complaint Chief Complaint Chest pain STEMI 1. STEMI: 3-vessel dz by cardiac cath (07/20/16). s/p CABG on 07/25/2016 : FLETCHER to LAD; SVG to LAD; SVG to OM1 and SVG to RPDA. VF arrest after chest closed; reopened and placed back on bypass then converted to LVAD. chest closed yesterday 2. cardiogenic shock: post op, on LVAD, d/c.ed today 3. 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 D/w [facility], Dr Mattson 4. Cardiomyopathy: EF 455 pre-op, rpt echo today: 20% 5. Afib: on amiodarone and dig and metoprolol 6. HTN: meds as tolerated; currently on pressors; very fragile BPs, fluid dependent 7. toxic encephalopathy with 2 8. HLD: on statin, currently on hold 9. DM: on insulin gtt 10: Nutrition: cautious NG feed today 11. liver shock with 2 12. MILD ICH, no intervention poor prognosis, cont current meds fu with CT, card, pulm, neurosx on OGT feeding, need to decrease Na in the feeding fluid dvt, gi ppx talked to at bedside, may need trach, PEG this week CC time 40 min History of Present Illness History of Present Illness intubated, off sedation 3 days, spontaneously open eyes, not follow commands tachycardia, afib, on dobutamin still on OGT feeding EF 20% Head CT 08/01 showed mild ICH higher WBC more agitated on 08/01 night, back to sedation Vitals Vitals Vital Signs Date Time Temp Pulse Resp B/P Pulse Ox O2 Delivery O2 Flow Rate FiO2 08/02/16 10:00 118 24 102/50 89 Ventilator 08/02/16 08:00 99.8 99.8 Physical Exam Physical Exam GENERAL: Intubated, 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 HEENT: Pupils reactive, scleral icterus improving NECK: Supple LUNGS: Clear HEART: S1S2 CHEST: sternotomy: D/C/I ABD: Soft, NT EXT: edema improved, warm well perfused, pedal pulses palpable 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,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, extremities flaccid SKIN: No rash IV: ok General: Other (sedated, intubated, moving head) Heart: Other (tachy, irregular) Lungs: Clear Abdomen: Soft, Other (distended) Extremities: No edema, Other (+ edema x4) Skin: No rashes Labs LABS Laboratory Tests Test 08/02/16 00:01 08/02/16 05:50 08/02/16 07:45 Glucose (Fingerstick) 137mg/dL (70-99) White Blood Count 16.1x10^3/uL (4.0-11.0) Red Blood Count 2.90x10^6/uL (4.30-5.70) Hemoglobin 9.0g/dL (13.0-17.5) Hematocrit 28.5% (39.0-53.0) Mean Corpuscular Volume 98fL (79-100) Mean Corpuscular Hemoglobin 31pg (25-35) Mean Corpuscular Hemoglobin Concent 32g/dL (31-37) Red Cell Distribution Width 15.8% (11.5-14.5) Platelet Count 110x10^3/uL (140-400) Neutrophils (%) (Auto) 92% (31-73) Lymphocytes (%) (Auto) 4% (24-48) Monocytes (%) (Auto) 4% (0-9) Eosinophils (%) (Auto) 0% (0-3) Basophils (%) (Auto) 0% (0-3) Neutrophils # (Auto) 14.8x10^3uL (1.8-7.7) Lymphocytes # (Auto) 0.6x10^3/uL (1.0-4.8) Monocytes # (Auto) 0.6x10^3/uL (0.0-1.1) Eosinophils # (Auto) 0.0x10^3/uL (0.0-0.7) Basophils # (Auto) 0.0x10^3/uL (0.0-0.2) Sodium Level 150mmol/L (136-145) Potassium Level 4.3mmol/L (3.5-5.1) Chloride Level 114mmol/L (98-107) Carbon Dioxide Level 27mmol/L (21-32) Anion Gap 9 (6-14) Blood Urea Nitrogen 39mg/dL (8-26) Creatinine 1.2mg/dL (0.7-1.3) Estimated GFR (Cockcroft-Gault) 62.4 BUN/Creatinine Ratio 33 (6-20) Glucose Level 152mg/dL (70-99) Calcium Level 7.6mg/dL (8.5-10.1) Magnesium Level 2.8mg/dL (1.8-2.4) Total Bilirubin 5.8mg/dL (0.2-1.0) Aspartate Amino Transf (AST/SGOT) 91U/L (15-37) Alanine Aminotransferase (ALT/SGPT) 311U/L (16-63) Alkaline Phosphatase 209U/L (46-116) Total Protein 5.3g/dL (6.4-8.2) Albumin 2.4g/dL (3.4-5.0) Albumin/Globulin Ratio 0.8 (1.0-1.7) O2 Saturation 88% (92-99) Arterial Blood pH 7.43 (7.35-7.45) Arterial Blood pCO2 at Patient Temp 43mmHg (35-46) Arterial Blood pO2 at Patient Temp 57mmHg (75-108) Arterial Blood HCO3 28mmol/L (21-28) Arterial Blood Base Excess 3mmol/L (-3-3) FiO2 60 Review of Systems Review of Systems no fever, chills, Assessment and Plan Assessmemt and Plan Problems Medical Problems: (1) CAD (coronary artery disease), [place] coronary artery Status: Acute (2) Chest pain Status: Acute (3) STEMI (ST elevation myocardial infarction) Status: Acute Problems: Comment Review of Relevant I have reviewed the following items leonidas (where applicable) has been applied. Labs Laboratory Tests Test 07/31/16 13:35 07/31/16 14:30 08/01/16 06:20 08/01/16 08:55 Prothrombin Time 16.0SEC (11.7-14.0) Prothromb Time International Ratio 1.4 (0.8-1.1) Activated Partial Thromboplast Time 30SEC (24-38) Urine Collection Type U cath Urine Color Keke Urine Clarity Clear Urine pH 8.5 Urine Specific [place] 1.020 Urine Protein Negativemg/dL (NEG-TRACE) Urine Glucose (UA) Negativemg/dL (NEG) Urine Ketones (Stick) Negativemg/dL (NEG) Urine Blood Negative (NEG) Urine Nitrite Negative (NEG) Urine Bilirubin Small (NEG) Urine Urobilinogen Dipstick 1.0mg/dL (0.2 mg/dL) Urine Leukocyte Esterase Negative (NEG) Urine RBC 6-10/HPF (0-2) Urine WBC 1-4/HPF (0-4) Urine Bacteria 0/HPF (0-FEW) Urine Hyaline Casts Few/HPF White Blood Count 12.5x10^3/uL (4.0-11.0) Red Blood Count 2.77x10^6/uL (4.30-5.70) Hemoglobin 8.8g/dL (13.0-17.5) Hematocrit 26.0% (39.0-53.0) Mean Corpuscular Volume 94fL (79-100) Mean Corpuscular Hemoglobin 32pg (25-35) Mean Corpuscular Hemoglobin Concent 34g/dL (31-37) Red Cell Distribution Width 15.6% (11.5-14.5) Platelet Count 106x10^3/uL (140-400) Neutrophils (%) (Auto) 80% (31-73) Lymphocytes (%) (Auto) 12% (24-48) Monocytes (%) (Auto) 6% (0-9) Eosinophils (%) (Auto) 1% (0-3) Basophils (%) (Auto) 0% (0-3) Neutrophils # (Auto) 10.0x10^3uL (1.8-7.7) Lymphocytes # (Auto) 1.5x10^3/uL (1.0-4.8) Monocytes # (Auto) 0.8x10^3/uL (0.0-1.1) Eosinophils # (Auto) 0.1x10^3/uL (0.0-0.7) Basophils # (Auto) 0.0x10^3/uL (0.0-0.2) Segmented Neutrophils % 70% (35-66) Band Neutrophils % 18% (0-9) Lymphocytes % 7% (24-48) Monocytes % 2% (0-10) Eosinophils % 1% (0-5) Metamyelocytes % 2% (0-0) Nucleated Red Blood Cells 5 Platelet Estimate Decreased (ADEQUATE) Polychromasia Slight Basophilic Stippling Present Anisocytosis Slight Sodium Level 148mmol/L (136-145) Potassium Level 4.1mmol/L (3.5-5.1) Chloride Level 111mmol/L (98-107) Carbon Dioxide Level 29mmol/L (21-32) Anion Gap 8 (6-14) Blood Urea Nitrogen 33mg/dL (8-26) Creatinine 1.1mg/dL (0.7-1.3) Estimated GFR (Cockcroft-Gault) 69.0 BUN/Creatinine Ratio 30 (6-20) Glucose Level 143mg/dL (70-99) Calcium Level 7.6mg/dL (8.5-10.1) Magnesium Level 2.7mg/dL (1.8-2.4) Total Bilirubin 6.6mg/dL (0.2-1.0) Direct Bilirubin 4.9mg/dL (0.0-0.2) Aspartate Amino Transf (AST/SGOT) 166U/L (15-37) Alanine Aminotransferase (ALT/SGPT) 411U/L (16-63) Alkaline Phosphatase 208U/L (46-116) Total Protein 5.1g/dL (6.4-8.2) Albumin 2.4g/dL (3.4-5.0) Albumin/Globulin Ratio 0.9 (1.0-1.7) O2 Saturation 96% (92-99) Arterial Blood pH 7.49 (7.35-7.45) Arterial Blood pCO2 at Patient Temp 34mmHg (35-46) Arterial Blood pO2 at Patient Temp 82mmHg (75-108) Arterial Blood HCO3 25mmol/L (21-28) Arterial Blood Base Excess 2mmol/L (-3-3) FiO2 40 Test 08/02/16 00:01 08/02/16 05:50 08/02/16 07:45 Glucose (Fingerstick) 137mg/dL (70-99) White Blood Count 16.1x10^3/uL (4.0-11.0) Red Blood Count 2.90x10^6/uL (4.30-5.70) Hemoglobin 9.0g/dL (13.0-17.5) Hematocrit 28.5% (39.0-53.0) Mean Corpuscular Volume 98fL (79-100) Mean Corpuscular Hemoglobin 31pg (25-35) Mean Corpuscular Hemoglobin Concent 32g/dL (31-37) Red Cell Distribution Width 15.8% (11.5-14.5) Platelet Count 110x10^3/uL (140-400) Neutrophils (%) (Auto) 92% (31-73) Lymphocytes (%) (Auto) 4% (24-48) Monocytes (%) (Auto) 4% (0-9) Eosinophils (%) (Auto) 0% (0-3) Basophils (%) (Auto) 0% (0-3) Neutrophils # (Auto) 14.8x10^3uL (1.8-7.7) Lymphocytes # (Auto) 0.6x10^3/uL (1.0-4.8) Monocytes # (Auto) 0.6x10^3/uL (0.0-1.1) Eosinophils # (Auto) 0.0x10^3/uL (0.0-0.7) Basophils # (Auto) 0.0x10^3/uL (0.0-0.2) Sodium Level 150mmol/L (136-145) Potassium Level 4.3mmol/L (3.5-5.1) Chloride Level 114mmol/L (98-107) Carbon Dioxide Level 27mmol/L (21-32) Anion Gap 9 (6-14) Blood Urea Nitrogen 39mg/dL (8-26) Creatinine 1.2mg/dL (0.7-1.3) Estimated GFR (Cockcroft-Gault) 62.4 BUN/Creatinine Ratio 33 (6-20) Glucose Level 152mg/dL (70-99) Calcium Level 7.6mg/dL (8.5-10.1) Magnesium Level 2.8mg/dL (1.8-2.4) Total Bilirubin 5.8mg/dL (0.2-1.0) Aspartate Amino Transf (AST/SGOT) 91U/L (15-37) Alanine Aminotransferase (ALT/SGPT) 311U/L (16-63) Alkaline Phosphatase 209U/L (46-116) Total Protein 5.3g/dL (6.4-8.2) Albumin 2.4g/dL (3.4-5.0) Albumin/Globulin Ratio 0.8 (1.0-1.7) O2 Saturation 88% (92-99) Arterial Blood pH 7.43 (7.35-7.45) Arterial Blood pCO2 at Patient Temp 43mmHg (35-46) Arterial Blood pO2 at Patient Temp 57mmHg (75-108) Arterial Blood HCO3 28mmol/L (21-28) Arterial Blood Base Excess 3mmol/L (-3-3) FiO2 60 Laboratory Tests Test 08/02/16 00:01 08/02/16 05:50 08/02/16 07:45 Glucose (Fingerstick) 137mg/dL (70-99) White Blood Count 16.1x10^3/uL (4.0-11.0) Red Blood Count 2.90x10^6/uL (4.30-5.70) Hemoglobin 9.0g/dL (13.0-17.5) Hematocrit 28.5% (39.0-53.0) Mean Corpuscular Volume 98fL (79-100) Mean Corpuscular Hemoglobin 31pg (25-35) Mean Corpuscular Hemoglobin Concent 32g/dL (31-37) Red Cell Distribution Width 15.8% (11.5-14.5) Platelet Count 110x10^3/uL (140-400) Neutrophils (%) (Auto) 92% (31-73) Lymphocytes (%) (Auto) 4% (24-48) Monocytes (%) (Auto) 4% (0-9) Eosinophils (%) (Auto) 0% (0-3) Basophils (%) (Auto) 0% (0-3) Neutrophils # (Auto) 14.8x10^3uL (1.8-7.7) Lymphocytes # (Auto) 0.6x10^3/uL (1.0-4.8) Monocytes # (Auto) 0.6x10^3/uL (0.0-1.1) Eosinophils # (Auto) 0.0x10^3/uL (0.0-0.7) Basophils # (Auto) 0.0x10^3/uL (0.0-0.2) Sodium Level 150mmol/L (136-145) Potassium Level 4.3mmol/L (3.5-5.1) Chloride Level 114mmol/L (98-107) Carbon Dioxide Level 27mmol/L (21-32) Anion Gap 9 (6-14) Blood Urea Nitrogen 39mg/dL (8-26) Creatinine 1.2mg/dL (0.7-1.3) Estimated GFR (Cockcroft-Gault) 62.4 BUN/Creatinine Ratio 33 (6-20) Glucose Level 152mg/dL (70-99) Calcium Level 7.6mg/dL (8.5-10.1) Magnesium Level 2.8mg/dL (1.8-2.4) Total Bilirubin 5.8mg/dL (0.2-1.0) Aspartate Amino Transf (AST/SGOT) 91U/L (15-37) Alanine Aminotransferase (ALT/SGPT) 311U/L (16-63) Alkaline Phosphatase 209U/L (46-116) Total Protein 5.3g/dL (6.4-8.2) Albumin 2.4g/dL (3.4-5.0) Albumin/Globulin Ratio 0.8 (1.0-1.7) O2 Saturation 88% (92-99) Arterial Blood pH 7.43 (7.35-7.45) Arterial Blood pCO2 at Patient Temp 43mmHg (35-46) Arterial Blood pO2 at Patient Temp 57mmHg (75-108) Arterial Blood HCO3 28mmol/L (21-28) Arterial Blood Base Excess 3mmol/L (-3-3) FiO2 60 Microbiology 07/30/16 Blood Culture - Preliminary, Resulted NO GROWTH AFTER 2 DAYS 07/31/16 Gram Stain - Final, Complete Medications Current Medications Nitroglycerin 0.4 mg 0.4 mg PRN Q5MIN PRN SL CP RATING > 1/10; Start 07/20/16 at 09:45; Stop 07/20/16 at 15:05; Status DC Nitroglycerin/ Dextrose (Nitroglycerin Drip) 250 ml @ 3 mls/hr 1X ONCE IV Last administered on 07/20/16t 10:02; Start 07/20/16 at 10:30; Stop 07/23/16 at 21: 49; Status DC Morphine Sulfate 2 mg PRN Q15MIN PRN IV/SQ PAIN GREATER THAN 3/10; Start at 09:45; Stop 07/21/16 at 09:44; Status DC Ondansetron HCl (Zofran) 4 mg PRN Q8HRS PRN IV NAUSEA/VOMITING; Start 07/20/16 at 12:30; Stop 07/20/16 at 13:36; Status DC Morphine Sulfate 2 mg 2 mg PRN Q2HR PRN IV PAIN; Start 07/20/16 at 12:30; Stop 07/21/16 at 12:29; Status DC Heparin Sodium/ Dextrose 500 ml @ 0 mls/hr CONT PRN IV . Last administered on 10:32; Start 07/20/16 at 13:00; Stop 07/21/16 at 14:50; Status DC Metoprolol Tartrate (Lopressor) 5 mg Q6HRS IVP ; Start 07/20/16 at 13:00; Stop at 14:53; Status DC Aspirin (Ecotrin) 325 mg [id number] PO Last administered on 07/21/16 08:11; Start 07/20/16 at 13:00; Stop 07/21/16 at 17:20; Status DC Ondansetron HCl (Zofran) 4 mg PRN Q6HRS PRN IV NAUSEA/VOMITING; Start 07/20/16 at 13:35; Stop 07/26/16 at 11:41; Status DC Acetaminophen (Tylenol) 500 mg PRN Q6HRS PRN PO MILD PAIN / TEMP Last administered on 07/29/16 09:55; Start 07/20/16 at 13:45; Stop 07/29/16 at 13:38 ; Status DC Docusate Sodium (Colace) 100 mg DAILY PO Last administered on 07/29/16 09:54; Start 07/20/16 at 15:00; Stop 07/29/16 at 10:03; Status DC Iohexol 100 ml 100 ml STK-MED ONCE .ROUTE ; Start 07/20/16 at 12:40; Stop at 13:44; Status DC Heparin Sodium/ Sodium Chloride 1,000 ml @ As Directed STK-MED ONCE .ROUTE ; Start 07/20/16 at 12:41; Stop 07/20/16 at 13:44; Status DC Lidocaine HCl 20 ml STK-MED ONCE .ROUTE ; Start 07/20/16 at 12:41; Stop 07/20/16 at 13:44; Status DC Fentanyl Citrate (Fentanyl 2ml Vial) 100 mcg STK-MED ONCE .ROUTE ; Start at 13:42; Stop 07/20/16 at 13:45; Status DC Midazolam HCl (Versed) 2 mg STK-MED ONCE .ROUTE ; Start 07/20/16 at 13:42; Stop 07/20/16 at 13:45; Status DC Heparin Sodium/ Sodium Chloride 1,000 unit 1X ONCE IART Last administered on 14:29; Start 07/20/16 at 14:00; Stop 07/20/16 at 14:01; Status DC Heparin Sodium/ Sodium Chloride 1,000 unit 1X ONCE IART Last administered on 14:29; Start 07/20/16 at 14:00; Stop 07/20/16 at 14:01; Status DC Midazolam HCl (Versed) 2 mg 1X ONCE IV Last administered on 07/20/16 14:28; Start 07/20/16 at 14:00; Stop 07/20/16 at 14:01; Status DC Fentanyl Citrate (Fentanyl 2ml Vial) 100 mcg 1X ONCE IV Last administered on 14:28; Start 07/20/16 at 14:00; Stop 07/20/16 at 14:01; Status DC Iohexol (Omnipaque 300 Mg/ml) 100 ml 1X ONCE IART Last administered on 14:29; Start 07/20/16 at 14:00; Stop 07/20/16 at 14:01; Status DC Lidocaine HCl 20 ml 1X ONCE IJ Last administered on 07/20/16 14:29; Start 07/20 at 14:00; Stop 07/20/16 at 14:01; Status DC Midazolam HCl (Versed) 2 mg STK-MED ONCE .ROUTE ; Start 07/20/16 at 14:15; Stop 07/20/16 at 14:16; Status DC Sodium Chloride 3 ml 3 ml QSHIFT PRN IV AFTER MEDS AND BLOOD DRAWS; Start at 14:45; Stop 07/29/16 at 13:51; Status DC Sodium Chloride (Iv Sodium Chloride 0.9% 1000ml Bag) 1,000 ml @ 60 mls/hr [id number] IV Last administered on 07/20/16 14:44; Start 07/20/16 at 14:44; Stop at 00:43; Status DC Metoprolol Tartrate (Lopressor) 12.5 mg BID PO ; Start 07/20/16 at 21:00; Stop at 21:00; Status DC Lisinopril (Prinivil) 5 mg DAILY PO Last administered on 07/20/16 16:25; Start 07/20/16 at 15:00; Stop 07/20/16 at 17:21; Status DC Atorvastatin Calcium (Lipitor) 20 mg QHS PO Last administered on 07/20/16 20:33 ; Start 07/20/16 at 21:00; Stop 07/21/16 at 08:11; Status DC Nitroglycerin (Nitrostat) 0.4 mg PRN Q5MIN PRN SL CHEST PAIN Last administered on 07/25/16 04:55; Start 07/20/16 at 14:45; Stop 07/26/16 at 11:41; Status DC Hydralazine HCl (Apresoline) 10 mg PRN Q4HRS PRN IVP ELEVATED BP, SEE COMMENTS Last administered on 07/31/16 10:58; Start 07/20/16 at 17:15; Stop 07/31/16 at 13:31; Status DC Metoprolol Tartrate (Lopressor) 50 mg BID PO Last administered on 07/22/16 08: 31; Start 07/20/16 at 21:00; Stop 07/22/16 at 19:03; Status DC Alprazolam (Xanax) 0.25 mg PRN Q8HRS PRN PO ANXIETY / AGITATION Last administered on 07/24/16 21:34; Start 07/20/16 at 17:30; Stop 07/29/16 at 13:38; Status DC Heparin Sodium (Porcine) 2050 unit 2,050 unit PRN Q6HRS PRN IV FOR UFH LEVEL LESS THAN 0.2 Last administered on 07/21/16 04:24; Start 07/20/16 at 19:45; Stop 07/26/16 at 08:55; Status DC Heparin Sodium/ Dextrose 500 ml @ 19.4 mls/hr CONT PRN IV SEE I/O RECORD; Start 07/20/16 at 19:45; Stop 07/21/16 at 16:24; Status DC Heparin Sodium (Porcine) (Heparin Sodium) 2,050 unit PRN Q6HRS PRN IV FOR UFH LEVEL LESS THAN 0.2; Start 07/20/16 at 19:45; Status UNV Atorvastatin Calcium (Lipitor) 40 mg QHS PO Last administered on 08/01/16 21: 08; Start 07/21/16 at 21:00 Iodixanol (Visipaque 320) 200 ml STK-MED ONCE .ROUTE ; Start 07/20/16 at 14:00; Stop 07/21/16 at 08:26; Status DC Zolpidem Tartrate (Ambien) 5 mg PRN QHS PRN PO INSOMNIA, MAY REPEAT IN 1HR; Start 07/21/16 at 15:30; Stop 07/29/16 at 13:38; Status DC Metoprolol Tartrate 25 mg 25 mg 1X ONCE PO ; Start 07/22/16 at 06:00; Stop at 06:02; Status DC Cefazolin Sodium/ Dextrose 50 ml @ 100 mls/hr 1X ONCE IV ; Start 07/22/16 at 06 :00; Stop 07/22/16 at 06:29; Status DC Heparin Sodium/ Dextrose 500 ml @ 0 mls/hr CONT PRN IV SEE I/O RECORD Last administered on 07/24/16 01:40; Start 07/21/16 at 16:30; Stop 07/26/16 at 08:55; Status DC Lidocaine HCl 2 ml 2 ml 1X PRN PRN ID IV START; Start 07/25/16 at 06:00; Stop 07/26/16 at 05:59; Status Cancel Lactated Ringer's (Iv Lactated Ringers) 1,000 ml @ 0 mls/hr Q0M IV Last administered on 07/25/16 07:30; Start 07/25/16 at 06:00; Stop 07/25/16 at 17:59 ; Status DC Fentanyl Citrate (Fentanyl 2ml Vial) 25 mcg PRN Q5MIN PRN IV Acute Pain; Start 07/22/16 at 09:15; Stop 07/23/16 at 09:14; Status DC Morphine Sulfate 2 mg PRN Q10MIN PRN IV Mild Pain; Start 07/22/16 at 09:15; Stop 07/23/16 at 09:14; Status DC Hydromorphone HCl (Dilaudid) 0.4 mg PRN Q10MIN PRN IV Moderate to severe pain; Start 07/22/16 at 09:15; Stop 07/23/16 at 09:14; Status DC Ondansetron HCl (Zofran) 4 mg PRN Q6HRS PRN IV Nausea, 1st Choice; Start at 09:15; Stop 07/23/16 at 09:14; Status DC Prochlorperazine Edisylate (Compazine) 5 mg PRN Q6HRS PRN IV Nausea/Vomiting, 2nd Choice; Start 07/22/16 at 09:15; Stop 07/23/16 at 09:14; Status DC Ondansetron HCl (Zofran) 4 mg PRN Q6HRS PRN IV NAUSEA/VOMITING; Start 07/25/16 at 07:00; Stop 07/26/16 at 06:59; Status DC Fentanyl Citrate (Fentanyl 2ml Vial) 25 mcg PRN Q5MIN PRN IV MILD PAIN; Start 07/25/16 at 07:00; Stop 07/26/16 at 06:59; Status DC Fentanyl Citrate (Fentanyl 2ml Vial) 50 mcg PRN Q5MIN PRN IV MODERATE PAIN; Start 07/25/16 at 07:00; Stop 07/26/16 at 06:59; Status DC Morphine Sulfate 1 mg 1 mg PRN Q10MIN PRN IV SEVERE PAIN; Start 07/25/16 at 07: 00; Stop 07/25/16 at 20:28; Status DC Lactated Ringer's (Iv Lactated Ringers) 1,000 ml @ 0 mls/hr Q0M IV ; Start 01/31 at 07:00; Stop 07/25/16 at 18:59; Status Cancel Lidocaine HCl 2 ml PRN 1X PRN ID PRIOR TO IV START Last administered on t 07:16; Start 07/25/16 at 07:00; Stop 07/26/16 at 06:59; Status DC Hydromorphone HCl (Dilaudid) 0.5 mg PRN Q10MIN PRN IV SEV PAIN, Second choice; Start 07/25/16 at 07:00; Stop 07/26/16 at 06:59; Status DC Prochlorperazine Edisylate 5 mg 5 mg PACU PRN PRN IV NAUSEA, MRX1; Start at 07:00; Stop 07/26/16 at 06:59; Status DC Cefazolin Sodium/ Dextrose (Ancef 2gm Premix) 50 ml @ 100 mls/hr 1X ONCE IV Last administered on 07/25/16 08:12; Start 07/25/16 at 06:00; Stop 07/25/16 at 06:29; Status DC Metoprolol Tartrate (Lopressor) 25 mg 1X ONCE PO ; Start 07/25/16 at 06:00; Stop 07/25/16 at 06:00; Status DC Metoprolol Tartrate (Lopressor) 2.5 mg 1X ONCE IVP Last administered on 16:30; Start 07/22/16 at 16:30; Stop 07/22/16 at 16:31; Status DC Digoxin (Lanoxin) 250 mcg 1X ONCE IV ; Start 07/22/16 at 18:30; Stop 07/22/16 at 18:42; Status DC Digoxin (Lanoxin) 500 mcg 1X ONCE IV Last administered on 07/22/16 18:47; Start 07/22/16 at 18:45; Stop 07/22/16 at 18:46; Status DC Metoprolol Tartrate (Lopressor) 75 mg BID PO Last administered on 07/24/16 21: 30; Start 07/22/16 at 21:00; Stop 07/25/16 at 13:12; Status DC Nitroglycerin 0.4 mg 0.4 mg PRN Q5MIN PRN SL CHEST PAIN; Start 07/23/16 at 12:00 ; Status UNV Heparin Sodium (Porcine) 81008 unit/Lactated Ringer's 1,020 ml @ 1,020 mls/hr 1X PERIOP ONCE IRR Last administered on 07/25/16 08:46; Start 07/25/16 at 06: 00; Stop 07/25/16 at 06:59; Status DC Potassium Chloride 70 meq/ Sodium Bicarbonate 12.5 meq/Lidocaine HCl 24 ml/ Parenteral Electrolytes 571.5 ml @ 571.5 mls/ hr 1X PERIOP ONCE IRR ; Start at 06:00; Stop 07/25/16 at 06:59; Status DC Potassium Chloride/Sodium Bicarbonate/ Parenteral Electrolytes (Isolyte S) 520 ml @ 520 mls/hr 1X PERIOP ONCE IRR ; Start 07/25/16 at 06:00; Stop 07/25/16 at 06:59; Status DC Etomidate (Amidate) 20 mg STK-MED ONCE IV ; Start 07/25/16 at 06:08; Stop at 06:09; Status DC Phenylephrine HCl (-Synephrine Inj) 10 mg STK-MED ONCE .ROUTE ; Start at 06:08; Stop 07/25/16 at 06:09; Status DC Aminocaproic Acid (Amicar) 5,000 mg STK-MED ONCE IV ; Start 07/25/16 at 06:08; Stop 07/25/16 at 06:09; Status DC Heparin Sodium (Porcine) (Heparin Sodium) 10,000 unit STK-MED ONCE .ROUTE ; Start 07/25/16 at 06:10; Stop 07/25/16 at 06:11; Status DC Rocuronium [place] (Zemuron) 100 mg STK-MED ONCE .ROUTE ; Start 07/25/16 at 06: 11; Stop 07/25/16 at 06:12; Status DC Morphine Sulfate 4 mg STK-MED ONCE .ROUTE ; Start 07/25/16 at 06:59; Stop at 07:00; Status DC Morphine Sulfate 4 mg 4 mg 1X ONCE IV ; Start 07/25/16 at 07:15; Stop 07/25/16 at 07:16; Status DC Cefazolin Sodium/ Sodium Chloride (Ancef/Iv Sodium Chloride 0.9% 500ml Bag) 500 ml @ 500 mls/hr 1X PERIOP ONCE IRR Last administered on 07/25/16 08:46; Start 07/25/16 at 07:15; Stop 07/25/16 at 08:14; Status DC Cellulose 1 each STK-MED ONCE .ROUTE Last administered on 07/25/16 08:46; Start 07/25/16 at 07:07; Stop 07/25/16 at 07:08; Status DC Vancomycin HCl (Vanco) 10 gm STK-MED ONCE .ROUTE Last administered on 08:46; Start 07/25/16 at 07:07; Stop 07/25/16 at 07:08; Status DC Papaverine HCl 60 mg STK-MED ONCE .ROUTE Last administered on 07/25/16 08:46; Start 07/25/16 at 07:07; Stop 07/25/16 at 07:08; Status DC Aspirin (Aspirin) 300 mg STK-MED ONCE .ROUTE Last administered on 07/25/16 17: 25; Start 07/25/16 at 07:08; Stop 07/25/16 at 07:09; Status DC Sodium Chloride (Sodium Chloride) 50 ml STK-MED ONCE IJ Last administered on 08:46; Start 07/25/16 at 07:08; Stop 07/25/16 at 07:09; Status DC Midazolam HCl (Versed) 2 mg STK-MED ONCE .ROUTE ; Start 07/25/16 at 07:15; Stop 07/25/16 at 07:16; Status DC Ephedrine Sulfate 50 mg 50 mg STK-MED ONCE IV ; Start 07/25/16 at 07:16; Stop at 07:17; Status DC Nitroglycerin/ Dextrose (Nitroglycerin Drip) 250 ml @ As Directed STK-MED ONCE IV ; Start 07/25/16 at 07:16; Stop 07/25/16 at 07:17; Status DC Midazolam HCl (Versed) 2 mg STK-MED ONCE .ROUTE ; Start 07/25/16 at 07:18; Stop 07/25/16 at 07:19; Status DC Fentanyl Citrate (Fentanyl 2ml Vial) 100 mcg STK-MED ONCE .ROUTE ; Start at 07:19; Stop 07/25/16 at 07:20; Status DC Sufentanil Citrate (Sufenta) 100 mcg STK-MED ONCE .ROUTE ; Start 07/25/16 at 07: 19; Stop 07/25/16 at 07:20; Status DC Midazolam HCl (Versed) 2 mg 1X ONCE IV ; Start 07/25/16 at 08:00; Stop at 08:01; Status DC Dexamethasone Sodium Phosphate (Decadron) 20 mg STK-MED ONCE .ROUTE ; Start 01/31 at 07:58; Stop 07/25/16 at 07:59; Status DC Rocuronium [place] (Zemuron) 100 mg STK-MED ONCE .ROUTE ; Start 07/25/16 at 08: 52; Stop 07/25/16 at 08:53; Status DC Sufentanil Citrate (Sufenta) 100 mcg STK-MED ONCE .ROUTE ; Start 07/25/16 at 08: 53; Stop 07/25/16 at 08:54; Status DC Protamine Sulfate 250 mg STK-MED ONCE IV ; Start 07/25/16 at 10:43; Stop at 10:44; Status DC Rocuronium [place] 100 mg 100 mg STK-MED ONCE .ROUTE ; Start 07/25/16 at 10:52; Stop 07/25/16 at 10:53; Status DC Albumin Human 0 ml @ As Directed STK-MED ONCE IV ; Start 07/25/16 at 10:53; Stop 07/25/16 at 10:54; Status DC Amiodarone HCl/ Dextrose (Cordarone) 518 ml @ 34.53 mls/ hr 1X ONCE IV Last administered on 07/25/16t 18:52; Start 07/25/16 at 11:30; Stop 07/26/16 at 02:30 ; Status DC Sodium Bicarbonate 50 meq STK-MED ONCE .ROUTE ; Start 07/25/16 at 11:35; Stop at 11:36; Status DC Protamine Sulfate 50 mg STK-MED ONCE IV ; Start 07/25/16 at 12:31; Stop at 12:32; Status DC Amiodarone HCl (Cordarone) 150 mg STK-MED ONCE .ROUTE ; Start 07/25/16 at 12:37 ; Stop 07/25/16 at 12:38; Status DC Isoflurane (Isoflurane) 90 ml STK-MED ONCE IH ; Start 07/25/16 at 12:42; Stop at 12:43; Status DC Lidocaine HCl (Lidocaine HCl 2% Abboject) 100 mg STK-MED ONCE .ROUTE ; Start 01/31 at 13:07; Stop 07/25/16 at 13:08; Status DC Mannitol (Mannitol) 12.5 g STK-MED ONCE .ROUTE ; Start 07/25/16 at 13:07; Stop 07/25/16 at 13:08; Status DC Calcium Chloride 1,000 mg STK-MED ONCE IV ; Start 07/25/16 at 13:07; Stop at 13:08; Status DC Sodium Bicarbonate 50 meq 50 meq STK-MED ONCE .ROUTE ; Start 07/25/16 at 13:07; Stop 07/25/16 at 13:08; Status DC Albumin Human (Albuminar) 100 ml @ As Directed STK-MED ONCE IV ; Start at 13:07; Stop 07/25/16 at 13:08; Status DC Magnesium Sulfate 5 gm STK-MED ONCE .ROUTE ; Start 07/25/16 at 13:08; Stop 07/25 at 13:09; Status DC Heparin Sodium (Porcine) 21459 unit 30,000 unit STK-MED ONCE .ROUTE ; Start 01/31 at 13:08; Stop 07/25/16 at 13:09; Status DC Clevidipine (Cleviprex) 100 ml @ 0 mls/hr CONT PRN IV PER PROTOCOL; Start 07/25 at 13:45; Stop 07/26/16 at 11:29; Status DC Heparin Sodium (Porcine) 23879 unit 30,000 unit STK-MED ONCE .ROUTE ; Start 01/31 at 13:39; Stop 07/25/16 at 13:40; Status DC Epinephrine HCl/ Sodium Chloride (Adrenalin/Iv Sodium Chloride 0.9% 250ml) 254 ml @ 3.81 mls/hr CONT PRN IV SEE I/O RECORD; Start 07/25/16 at 13:45 Epinephrine HCl (Epinephrine Syringe) 1 mg STK-MED ONCE .ROUTE ; Start 07/25/16 at 13:52; Stop 07/25/16 at 13:53; Status DC Rocuronium [place] (Zemuron) 100 mg STK-MED ONCE .ROUTE ; Start 07/25/16 at 13: 57; Stop 07/25/16 at 13:58; Status DC Sodium Bicarbonate 50 meq 50 meq STK-MED ONCE .ROUTE ; Start 07/25/16 at 14:04; Stop 07/25/16 at 14:05; Status DC Procainamide HCl/ Dextrose (Pronestyl) 520 ml @ 15.6 mls/hr CONT PRN IV SEE I/ O RECORD; Start 07/25/16 at 14:30; Stop 07/28/16 at 15:22; Status DC Sodium Bicarbonate 50 meq STK-MED ONCE .ROUTE ; Start 07/25/16 at 14:31; Stop at 14:32; Status DC Sodium Bicarbonate 50 meq STK-MED ONCE .ROUTE ; Start 07/25/16 at 14:31; Stop at 14:32; Status DC Protamine Sulfate 50 mg STK-MED ONCE IV ; Start 07/25/16 at 15:13; Stop at 15:14; Status DC Protamine Sulfate 50 mg STK-MED ONCE IV ; Start 07/25/16 at 15:13; Stop at 15:14; Status DC Isoflurane 90 ml 90 ml STK-MED ONCE IH ; Start 07/25/16 at 15:13; Stop 07/25/16 at 15:14; Status DC Dobutamine HCl/ Dextrose 250 ml @ As Directed STK-MED ONCE IV ; Start 07/25/16 at 15:17; Stop 07/25/16 at 15:18; Status DC Iohexol 100 ml 100 ml STK-MED ONCE .ROUTE Last administered on 07/25/16t 15:39 ; Start 07/25/16 at 15:28; Stop 07/25/16 at 15:29; Status DC Norepinephrine Bitartrate 8 mg/ Sodium Chloride 258 ml @ 1.93 mls/hr 1X ONCE IV Last administered on 07/25/16t 18:53; Start 07/25/16 at 16:00; Stop at 08:04; Status DC Albumin Human (Plasmanate) 1,000 ml @ As Directed STK-MED ONCE IV ; Start 07/25 at 16:11; Stop 07/25/16 at 16:12; Status DC Heparin Sodium (Porcine) (Heparin Sodium) 10,000 unit STK-MED ONCE .ROUTE ; Start 07/25/16 at 16:19; Stop 07/25/16 at 16:20; Status DC Lidocaine HCl (Lidocaine HCl 2% Abboject) 100 mg STK-MED ONCE .ROUTE ; Start 01/31 at 16:19; Stop 07/25/16 at 16:20; Status DC Mannitol (Mannitol) 12.5 g STK-MED ONCE .ROUTE ; Start 07/25/16 at 16:19; Stop 07/25/16 at 16:20; Status DC Calcium Chloride 1,000 mg STK-MED ONCE IV ; Start 07/25/16 at 16:19; Stop at 16:20; Status DC Sodium Bicarbonate 50 meq STK-MED ONCE .ROUTE ; Start 07/25/16 at 16:19; Stop at 16:20; Status DC Magnesium Sulfate 5 gm STK-MED ONCE .ROUTE ; Start 07/25/16 at 16:19; Stop 07/25 at 16:20; Status DC Heparin Sodium (Porcine) (Heparin Sodium) 10,000 unit STK-MED ONCE .ROUTE ; Start 07/25/16 at 16:20; Stop 07/25/16 at 16:21; Status DC Lidocaine HCl (Lidocaine HCl 2% Abboject) 100 mg STK-MED ONCE .ROUTE ; Start 01/31 at 16:20; Stop 07/25/16 at 16:21; Status DC Aminocaproic Acid (Amicar) 5,000 mg STK-MED ONCE IV ; Start 07/25/16 at 16:20; Stop 07/25/16 at 16:21; Status DC Mannitol (Mannitol) 12.5 g STK-MED ONCE .ROUTE ; Start 07/25/16 at 16:20; Stop 07/25/16 at 16:21; Status DC Sodium Bicarbonate 50 meq 50 meq STK-MED ONCE .ROUTE ; Start 07/25/16 at 16:20; Stop 07/25/16 at 16:21; Status DC Albumin Human (Albuminar) 100 ml @ As Directed STK-MED ONCE IV ; Start at 16:20; Stop 07/25/16 at 16:21; Status DC Rocuronium [place] (Zemuron) 50 mg STK-MED ONCE .ROUTE ; Start 07/25/16 at 16:33 ; Stop 07/25/16 at 16:34; Status DC Rocuronium [place] (Zemuron) 50 mg STK-MED ONCE .ROUTE ; Start 07/25/16 at 16:33 ; Stop 07/25/16 at 16:34; Status DC Protamine Sulfate 50 mg STK-MED ONCE IV ; Start 07/25/16 at 16:34; Stop at 16:35; Status DC Sodium Bicarbonate 50 meq STK-MED ONCE .ROUTE ; Start 07/25/16 at 16:36; Stop at 16:37; Status DC Calcium Chloride 1,000 mg STK-MED ONCE IV ; Start 07/25/16 at 16:41; Stop at 16:42; Status DC Epinephrine HCl (Epinephrine Syringe) 1 mg STK-MED ONCE .ROUTE ; Start 07/25/16 at 16:41; Stop 07/25/16 at 16:42; Status DC Sodium Bicarbonate 50 meq STK-MED ONCE .ROUTE ; Start 07/25/16 at 16:52; Stop at 16:53; Status DC Sodium Bicarbonate 50 meq STK-MED ONCE .ROUTE ; Start 07/25/16 at 16:52; Stop at 16:53; Status DC Sodium Bicarbonate 50 meq STK-MED ONCE .ROUTE ; Start 07/25/16 at 16:52; Stop at 16:53; Status DC Vasopressin (Vasostrict) 20 unit STK-MED ONCE .ROUTE ; Start 07/25/16 at 16:54; Stop 07/25/16 at 16:55; Status DC Famotidine (Pepcid) 20 mg STK-MED ONCE .ROUTE ; Start 07/25/16 at 16:56; Stop at 16:57; Status DC Dexamethasone Sodium Phosphate (Decadron) 20 mg STK-MED ONCE .ROUTE ; Start 01/31 at 16:56; Stop 07/25/16 at 16:57; Status DC Diphenhydramine HCl 50 mg 50 mg STK-MED ONCE .ROUTE ; Start 07/25/16 at 16:56; Stop 07/25/16 at 16:57; Status DC Vasopressin/ Dextrose (Vasostrict) 102 ml @ 6 mls/hr CONT PRN IV SEE I/O RECORD Last administered on 07/28/16t 22:48; Start 07/25/16 at 17:15 Sodium Bicarbonate 50 meq STK-MED ONCE .ROUTE ; Start 07/25/16 at 17:24; Stop at 17:25; Status DC Sodium Bicarbonate 50 meq 50 meq STK-MED ONCE .ROUTE ; Start 07/25/16 at 17:24; Stop 07/25/16 at 17:25; Status DC Cefazolin Sodium/ Dextrose (Ancef 2gm Premix) 50 ml @ As Directed STK-MED ONCE IV ; Start 07/25/16 at 17:32; Stop 07/25/16 at 17:33; Status DC Sodium Chloride 3 ml 3 ml PRN Q12HR PRN IV AFTER MEDS AND BLOOD DRAWS; Start at 17:30; Stop 07/29/16 at 13:38; Status DC Lactated Ringer's 1,000 ml @ 15 mls/hr Q24H IV Last administered on 07/29/16 16:45; Start 07/25/16 at 17:30; Stop 07/31/16 at 15:33; Status DC Insulin Human Regular/Sodium Chloride (Novolin R Vial/ Iv Normal Saline 150ml) 151.5 ml @ 0 mls/hr CONT PRN PRN IV SEE I/O RECORD Last administered on 03:03; Start 07/25/16 at 17:30; Stop 07/29/16 at 13:51; Status DC Dextrose 25 gm 25 gm PRN Q15MIN PRN IV LOW BLOOD SUGAR; Start 07/25/16 at 17:30 ; Stop 07/29/16 at 13:51; Status DC Dopamine HCl/ Dextrose 250 ml @ 0 mls/hr CONT PRN PRN IV SEE I/O RECORD; Start 07/25/16 at 17:30; Stop 07/26/16 at 11:41; Status DC Amiodarone HCl/ Dextrose (Cordarone) 518 ml @ 33.33 mls/ hr CONT PRN PRN IV SEE COMMENTS; Start 07/25/16 at 17:30; Status UNV Info 1 ea CONT PRN PRN MC SEE COMMENTS; Start 07/25/16 at 17:30 Info 1 ea 1 ea CONT PRN PRN MC SEE COMMENTS; Start 07/25/16 at 17:30 Magnesium Sulfate/ Dextrose (Magnesium Sulfate PREMIX 1GM) 100 ml @ 100 mls/hr PRN DAILY PRN IV FOR MAG < 2.2 Last administered on 07/27/16 10:59; Start 01/31 at 17:30 Famotidine (Pepcid) 20 mg BID IVP Last administered on 08/02/16 08:56; Start 07/25/16 at 21:00 Metoclopramide HCl (Reglan) 10 mg PRN Q6HRS PRN IV NAUSEA/VOMITING Last administered on 07/29/16 09:54; Start 07/25/16 at 17:30 Morphine Sulfate 2 mg PRN Q1HR PRN IV PAIN Last administered on 07/28/16 14:21 ; Start 07/25/16 at 17:30; Stop 07/29/16 at 13:38; Status DC Acetaminophen (Tylenol) 650 mg PRN Q4HRS PRN PO MILD PAIN / TEMP; Start at 17:30; Stop 07/29/16 at 13:38; Status DC Acetaminophen (Acetaminophen Supp) 650 mg PRN Q4HRS PRN ID MILD PAIN / TEMP; Start 07/25/16 at 17:30 Meperidine HCl 12.5 mg 12.5 mg PRN Q15MIN PRN IV SHIVERING; Start 07/25/16 at 17:30; Stop 07/29/16 at 13:38; Status DC Propofol (Diprivan) 100 ml @ 0 mls/hr CONT PRN PRN IV POSTOP SEDATION UNTIL EXTUBATE; Start 07/25/16 at 17:30; Stop 07/28/16 at 15:22; Status DC Aspirin (Ecotrin) 325 mg DAILYWBKFT PO Last administered on 07/29/16 09:54; Start 07/26/16 at 08:00; Stop 07/29/16 at 09:59; Status DC Aspirin (Aspirin) 300 mg PRN DAILY PRN ID IF UNABLE TO TAKE PO; Start 07/25/16 at 17:30; Stop 07/26/16 at 12:00; Status DC Acetaminophen/ Hydrocodone Bitart (Lortab 5/325) 1 tab PRN Q4HRS PRN PO MILD PAIN; Start 07/25/16 at 17:30 Acetaminophen/ Hydrocodone Bitart 2 tab 2 tab PRN Q4HRS PRN PO MODERATE PAIN, SEVERE PAIN; Start 07/25/16 at 17:30 Cefazolin Sodium/ Dextrose 50 ml @ 100 mls/hr Q8H IV ; Start 07/25/16 at 18:00 ; Stop 07/25/16 at 21:42; Status DC Albumin Human 250 ml @ 62.5 mls/hr 1X ONCE IV Last administered on 07/27/16 17:52; Start 07/25/16 at 17:30; Stop 07/25/16 at 21:29; Status DC Midazolam HCl 100 ml @ As Directed STK-MED ONCE IV ; Start 07/25/16 at 18:06; Stop 07/25/16 at 18:07; Status DC Midazolam HCl 100 ml @ 0 mls/hr CONT PRN IV SEE I/O RECORD Last administered on 07/25/16 18:56; Start 07/25/16 at 18:15; Stop 07/26/16 at 08:59; Status DC Vancomycin HCl 1 gm/Sodium Chloride 250 ml @ 250 mls/hr 1X ONCE IV Last administered on 07/25/16 20:56; Start 07/25/16 at 18:15; Stop 07/25/16 at 19:14 ; Status DC Piperacillin Sod/ Tazobactam Sod/ Sodium Chloride (Zosyn/Iv Sodium Chloride 0.9 % 50ml) 50 ml @ 100 mls/hr Q6HRS IV Last administered on 07/31/16 05:32; Start 07/25/16 at 18:15; Stop 07/31/16 at 10:25; Status DC Midazolam HCl (Versed) 2 mg PRN Q20MIN PRN IV SEDATION; Start 07/25/16 at 18:15 ; Stop 07/25/16 at 18:39; Status DC Midazolam HCl 5 mg 5 mg PRN Q30MIN PRN IV SEDATION; Start 07/25/16 at 18:15; Stop 07/25/16 at 18:39; Status DC Vecuronium [place] 100 mg/ Dextrose 100 ml @ 0 mls/hr 1X ONCE IV Last administered on 07/25/16 19:43; Start 07/25/16 at 18:15; Stop 07/25/16 at 18:17 ; Status DC Midazolam HCl 100 ml @ 0 mls/hr CONT PRN IV SEE I/O RECORD Last administered on 07/28/16 19:40; Start 07/25/16 at 18:45 Dobutamine HCl/ Dextrose 250 ml @ 0 mls/hr CONT PRN IV SEE I/O RECORD Last administered on 07/29/16 03:10; Start 07/25/16 at 18:45; Stop 07/29/16 at 13:38 ; Status DC Potassium Chloride 50 ml @ 50 mls/hr Q1H IV Last administered on 07/25/16 22: 58; Start 07/25/16 at 21:00; Stop 07/25/16 at 23:59; Status DC Cefazolin Sodium/ Dextrose 50 ml @ 100 mls/hr Q8H IV Last administered on 07/27 05:34; Start 07/25/16 at 22:00; Stop 07/27/16 at 06:29; Status DC Heparin Sodium (Porcine) 71304 unit/Dextrose 512.5 ml @ 0 mls/hr Q0M ONCE IV Last administered on 07/25/16 22:21; Start 07/25/16 at 22:15; Stop 07/25/16 at 22:16; Status DC Vecuronium [place]/Dextrose (Norcuron) 100 ml @ 0 mls/hr CONT PRN IV SEE I/O RECORD Last administered on 07/26/16 01:07; Start 07/26/16 at 00:45; Stop 07/29 at 13:38; Status DC Dextrose 25 gm 25 gm 1X ONCE IV Last administered on 07/26/16 01:08; Start at 01:00; Stop 07/26/16 at 01:18; Status DC Amiodarone HCl/ Dextrose (Cordarone) 259 ml @ 17.26 mls/ hr CONT PRN IV SEE I/ O RECORD Last administered on 07/30/16 13:02; Start 07/26/16 at 06:45; Stop at 15:33; Status DC Cefazolin Sodium/ Dextrose 2 gm 2 gm STK-MED ONCE IV ; Start 07/25/16 at 11:00; Stop 07/26/16 at 08:53; Status DC Lactated Ringer's 500 ml @ 5,000 mls/hr PRN Q10MIN PRN IV CVP <14; Start 07/26 at 10:00; Stop 07/29/16 at 13:38; Status DC Fentanyl Citrate (Fentanyl 600 Mcg/30 ml STACKER ATTENDANT) 30 ml @ 0 mls/hr CONT PRN IV PROTOCOL Last administered on 07/31/16 09:12; Start 07/26/16 at 10:00; Stop at 13:31; Status DC Fentanyl Citrate (Fentanyl 2ml Vial) 25 mcg PRN Q1HR PRN IV COMM; Start at 10:00; Stop 07/29/16 at 13:38; Status DC Fentanyl Citrate (Fentanyl 2ml Vial) 50 mcg PRN Q1HR PRN IV COMM; Start at 10:00; Stop 07/29/16 at 13:38; Status DC Chlorhexidine Gluconate (Peridex) 15 ml BID MM Last administered on 08/02/16 08:56; Start 07/26/16 at 10:30 Sulfur Hexafluoride Microspheres (Lumason) 25 mg STK-MED ONCE IVP ; Start at 11:29; Stop 07/26/16 at 11:30; Status DC Aspirin 300 mg 300 mg DAILY ID Last administered on 07/28/16 07:55; Start 03/03 at 12:00; Stop 07/29/16 at 19:10; Status DC Potassium Chloride (KCl Premix 20meq) 50 ml @ 50 mls/hr 1X ONCE IV Last administered on 07/26/16 12:55; Start 07/26/16 at 12:00; Stop 07/26/16 at 12:59 ; Status DC Sulfur Hexafluoride Microspheres (Lumason) 25 mg 1X ONCE IVP Last administered on 07/26/16 11:45; Start 07/26/16 at 11:45; Stop 07/26/16 at 11:50 ; Status DC Multi-Ingred Cream/Lotion/Oil/ Oint (Artificial Tears Eye Oint) 1 adri BID OU Last administered on 08/02/16 08:56; Start 07/26/16 at 21:00 Ondansetron HCl (Zofran) 4 mg PRN Q6HRS PRN IV NAUSEA/VOMITING; Start 07/27/16 at 07:00; Stop 07/28/16 at 06:59; Status DC Fentanyl Citrate (Fentanyl 2ml Vial) 25 mcg PRN Q5MIN PRN IV MILD PAIN; Start 07/27/16 at 07:00; Stop 07/28/16 at 06:59; Status DC Fentanyl Citrate (Fentanyl 2ml Vial) 50 mcg PRN Q5MIN PRN IV MODERATE PAIN; Start 07/27/16 at 07:00; Stop 07/28/16 at 06:59; Status DC Morphine Sulfate 1 mg 1 mg PRN Q10MIN PRN IV SEVERE PAIN; Start 07/27/16 at 07: 00; Stop 07/28/16 at 06:59; Status DC Lactated Ringer's (Iv Lactated Ringers) 1,000 ml @ 30 mls/hr Q24H IV Last administered on 07/26/16 17:25; Start 07/27/16 at 07:00; Stop 07/27/16 at 18:59 ; Status DC Lidocaine HCl 2 ml PRN 1X PRN ID PRIOR TO IV START; Start 07/27/16 at 07:00; Stop 07/28/16 at 06:59; Status DC Hydromorphone HCl (Dilaudid) 0.5 mg PRN Q10MIN PRN IV SEV PAIN, Second choice; Start 07/27/16 at 07:00; Stop 07/28/16 at 06:59; Status DC Prochlorperazine Edisylate 5 mg 5 mg PACU PRN PRN IV NAUSEA, MRX1; Start at 07:00; Stop 07/28/16 at 06:59; Status DC Heparin Sodium (Porcine) 41397 unit/Dextrose 512.5 ml @ 0 mls/hr Q0M ONCE IV Last administered on 07/26/16 19:40; Start 07/26/16 at 18:30; Stop 07/26/16 at 18:31; Status DC Amiodarone HCl 150 mg/Dextrose 103 ml @ 618 mls/hr 1X ONCE IV Last administered on 07/26/16 19:25; Start 07/26/16 at 19:15; Stop 07/26/16 at 19:24 ; Status DC Norepinephrine Bitartrate 8 mg/ Sodium Chloride 258 ml @ 1.93 mls/hr CONT PRN IV SEE I/O RECORD Last administered on 08/02/16 11:42; Start 07/26/16 at 19:15 Amiodarone HCl 900 mg/Dextrose 518 ml @ 0 mls/hr CONT PRN IV PER PROTOCOL; Start 07/26/16 at 19:15; Stop 07/27/16 at 12:11; Status DC Milrinone Lactate/ Dextrose 100 ml @ 0 mls/hr CONT PRN IV SEE I/O RECORD Last administered on 07/26/16 20:03; Start 07/26/16 at 19:45; Stop 07/29/16 at 13:51 ; Status DC Calcium Chloride/ Sodium Chloride (Iv Sodium Chloride 0.9% 100ml) 120 ml @ 240 mls/hr 1X ONCE IV Last administered on 07/26/16 21:04; Start 07/26/16 at 21: 30; Stop 07/26/16 at 21:59; Status DC Digoxin 500 mcg 500 mcg 1X ONCE IV Last administered on 07/26/16 21:55; Start 07/26/16 at 21:45; Stop 07/26/16 at 21:46; Status DC Cefazolin Sodium/ Sodium Chloride (Ancef/Iv Sodium Chloride 0.9% 500ml Bag) 500 ml @ 500 mls/hr 1X PERIOP ONCE IRR Last administered on 07/27/16 14:37; Start 07/27/16 at 10:00; Stop 07/27/16 at 10:59; Status DC Vancomycin HCl (Vanco) 10 gm 1X ONCE CEMENT Last administered on 07/27/16 14: 37; Start 07/27/16 at 12:30; Stop 07/27/16 at 12:31; Status DC Rocuronium [place] (Zemuron) 100 mg STK-MED ONCE .ROUTE ; Start 07/27/16 at 12: 32; Stop 07/27/16 at 12:33; Status DC Lorazepam (Ativan) 2 mg STK-MED ONCE .ROUTE ; Start 07/27/16 at 14:13; Stop 04/02 at 14:14; Status DC Phenylephrine HCl 1 mg 1 mg STK-MED ONCE IV ; Start 07/27/16 at 14:18; Stop 04/02 at 14:19; Status DC Albumin Human (Plasmanate) 250 ml @ 62.5 mls/hr 1X ONCE IV Last administered on 07/27/16 17:52; Start 07/27/16 at 17:15; Stop 07/27/16 at 21:14; Status DC Sodium Bicarbonate 50 meq STK-MED ONCE .ROUTE ; Start 07/27/16 at 17:39; Stop at 17:40; Status DC Sodium Bicarbonate 50 meq 1X ONCE IV Last administered on 07/27/16 17:51; Start 07/27/16 at 18:00; Stop 07/27/16 at 18:01; Status DC Sodium Bicarbonate 50 meq 1X ONCE IV Last administered on 07/27/16 17:52; Start 07/27/16 at 18:00; Stop 07/27/16 at 18:01; Status DC Fentanyl Citrate (Fentanyl 2ml Vial) 25 mcg PRN Q5MIN PRN IV MILD PAIN; Start 07/28/16 at 07:00; Stop 07/29/16 at 06:59; Status DC Fentanyl Citrate (Fentanyl 2ml Vial) 50 mcg PRN Q5MIN PRN IV MODERATE PAIN; Start 07/28/16 at 07:00; Stop 07/29/16 at 06:59; Status DC Morphine Sulfate 1 mg 1 mg PRN Q10MIN PRN IV SEVERE PAIN; Start 07/28/16 at 07: 00; Stop 07/29/16 at 06:59; Status DC Lactated Ringer's (Iv Lactated Ringers) 1,000 ml @ 30 mls/hr Q24H IV Last administered on 07/28/16 06:49; Start 07/28/16 at 06:49; Stop 07/28/16 at 18:48 ; Status DC Lidocaine HCl 2 ml PRN 1X PRN ID PRIOR TO IV START; Start 07/28/16 at 07:00; Stop 07/29/16 at 06:59; Status DC Hydromorphone HCl (Dilaudid) 0.5 mg PRN Q10MIN PRN IV SEV PAIN, Second choice; Start 07/28/16 at 07:00; Stop 07/29/16 at 06:59; Status DC Rocuronium [place] 50 mg 50 mg STK-MED ONCE .ROUTE ; Start 07/28/16 at 07:27; Stop 07/28/16 at 07:28; Status DC Cefazolin Sodium/ Sodium Chloride (Ancef/Iv Sodium Chloride 0.9% 500ml Bag) 500 ml @ 500 mls/hr 1X PERIOP ONCE IRR Last administered on 07/28/16 09:25; Start 07/28/16 at 08:00; Stop 07/28/16 at 08:59; Status DC Cellulose 1 each STK-MED ONCE .ROUTE ; Start 07/28/16 at 07:42; Stop 07/28/16 at 07:43; Status DC Bupivacaine HCl/ Epinephrine Bitart 50 ml 50 ml STK-MED ONCE .ROUTE ; Start at 07:42; Stop 07/28/16 at 07:43; Status DC Heparin Sodium (Porcine)/Sodium Chloride (Heparin Sodium/ Iv Sodium Chloride 0.9 % 500ml Bag) 505 ml @ 505 mls/hr 1X PERIOP ONCE IRR Last administered on 07/28 10:19; Start 07/28/16 at 08:15; Stop 07/28/16 at 09:14; Status DC Lorazepam 2 mg 2 mg STK-MED ONCE .ROUTE ; Start 07/28/16 at 08:29; Stop at 08:30; Status DC Magnesium Sulfate/ Dextrose (Magnesium Sulfate PREMIX 1GM) 100 ml @ 100 mls/hr 1X ONCE IV Last administered on 07/28/16 13:09; Start 07/28/16 at 09:00; Stop 07/28/16 at 09:59; Status DC Vasopressin (Vasostrict) 20 unit STK-MED ONCE .ROUTE ; Start 07/28/16 at 09:03; Stop 07/28/16 at 09:04; Status DC Epinephrine HCl (Epinephrine Syringe) 1 mg STK-MED ONCE .ROUTE ; Start 07/28/16 at 09:09; Stop 07/28/16 at 09:10; Status DC Calcium Chloride 1,000 mg STK-MED ONCE IV ; Start 07/28/16 at 09:09; Stop at 09:10; Status DC Phenylephrine HCl 1 mg STK-MED ONCE IV ; Start 07/28/16 at 09:54; Stop 07/28/16 at 09:55; Status DC Sevoflurane 60 ml 60 ml STK-MED ONCE IH ; Start 07/28/16 at 09:54; Stop at 09:55; Status DC Epinephrine HCl/ Sodium Chloride (Adrenalin/Iv Sodium Chloride 0.9% 250ml) 254 ml @ 3.81 mls/hr 1X ONCE IV ; Start 07/28/16 at 10:00; Stop 07/29/16 at 19:10 ; Status DC Heparin Sodium (Porcine) 81554 unit 10,000 unit STK-MED ONCE .ROUTE ; Start at 09:57; Stop 07/28/16 at 09:58; Status DC Albumin Human (Plasmanate) 500 ml @ As Directed STK-MED ONCE IV ; Start at 09:57; Stop 07/28/16 at 09:58; Status DC Iohexol 100 ml 100 ml STK-MED ONCE .ROUTE ; Start 07/28/16 at 10:39; Stop at 10:40; Status DC Heparin Sodium/ Sodium Chloride 500 ml @ As Directed STK-MED ONCE .ROUTE ; Start 07/28/16 at 10:39; Stop 07/28/16 at 10:40; Status DC Iohexol 100 ml 100 ml STK-MED ONCE .ROUTE ; Start 07/28/16 at 10:43; Stop at 10:44; Status DC Heparin Sodium/ Sodium Chloride 500 ml @ As Directed STK-MED ONCE .ROUTE ; Start 07/28/16 at 11:21; Stop 07/28/16 at 11:22; Status DC Albuterol Sulfate (Ventolin Neb Soln) 2.5 mg RTQID NEB Last administered on 08:46; Start 07/28/16 at 12:00; Stop 07/30/16 at 17:05; Status DC Furosemide (Lasix) 40 mg 1X ONCE IVP Last administered on 07/28/16 13:16; Start 07/28/16 at 13:15; Stop 07/28/16 at 13:16; Status DC Furosemide (Lasix) 40 mg 1X ONCE IVP Last administered on 07/28/16 13:19; Start 07/28/16 at 14:00; Stop 07/28/16 at 14:01; Status DC Heparin Sodium/ Sodium Chloride 1000 unit 1,000 unit CONT PRN IV ART LINE FLUSH Last administered on 08/02/16 06:47; Start 07/28/16 at 14:45 Albumin Human 250 ml @ 62.5 mls/hr PRN Q1HR PRN IV SEE COMMENTS Last administered on 07/28/16 20:16; Start 07/28/16 at 15:15 Furosemide 100 mg/ Sodium Chloride 100 ml @ 5 mls/hr CONT PRN IV SEE I/O RECORD Last administered on 07/30/16 09:50; Start 07/28/16 at 15:30; Stop 07/31 at 13:31; Status DC Potassium Chloride 50 ml @ 50 mls/hr Q1H IV Last administered on 07/28/16 19: 39; Start 07/28/16 at 18:30; Stop 07/28/16 at 20:29; Status DC Potassium Chloride (KCl Premix 20meq) 50 ml @ 50 mls/hr Q1H IV Last administered on 07/29/16 09:36; Start 07/29/16 at 07:00; Stop 07/29/16 at 08:59 ; Status DC Lorazepam (Ativan) 2 mg STK-MED ONCE .ROUTE ; Start 07/28/16 at 08:30; Stop at 08:16; Status DC Aspirin (Arti Aspirin) 325 mg DAILYWBKFT PO Last administered on 08/02/16 08: 55; Start 07/30/16 at 08:00 Docusate Sodium 100 mg 100 mg DAILY PO Last administered on 07/31/16 07:59; Start 07/30/16 at 09:00; Stop 07/31/16 at 11:00; Status DC Dobutamine HCl/ Dextrose 250 ml @ 12.1 mls/hr CONT PRN IV PER PROTOCOL Last administered on 08/01/16 19:21; Start 07/29/16 at 13:30 Potassium Chloride 50 ml @ 50 mls/hr Q1H IV Last administered on 07/29/16 22: 39; Start 07/29/16 at 20:00; Stop 07/29/16 at 22:59; Status DC Potassium Chloride (KCl Premix 20meq) 50 ml @ 50 mls/hr Q1H IV Last administered on 07/30/16 09:19; Start 07/30/16 at 07:00; Stop 07/30/16 at 08:59 ; Status DC Ipratropium [place] (Atrovent) 0.5 mg RTQID NEB Last administered on 08/02/16 07:45; Start 07/30/16 at 12:30 Digoxin 500 mcg 500 mcg 1X ONCE IV Last administered on 07/30/16 13:01; Start 07/30/16 at 12:15; Stop 07/30/16 at 12:19; Status DC Dexmedetomidine HCl/Sodium Chloride (Precedex/Iv Sodium Chloride 0.9% 50ml) 50 ml @ 0 mls/hr CONT PRN IV PER PROTOCOL Last administered on 07/30/16 15:00; Start 07/30/16 at 13:30 Atropine Sulfate 0.5 mg PRN Q5MIN PRN IV SEE COMMENTS; Start 07/30/16 at 13:30 Amiodarone HCl (Cordarone) 400 mg ONCE ONCE PO Last administered on 07/30/16 15:01; Start 07/30/16 at 13:30; Stop 07/30/16 at 13:46; Status DC Amiodarone HCl (Cordarone) 400 mg BID PO Last administered on 08/02/16 08:55; Start 07/30/16 at 21:00 Digoxin 125 mcg 125 mcg DAILY IV Last administered on 08/02/16 08:56; Start at 09:00 Albumin Human (Albuminar) 50 ml @ 50 mls/hr 1X ONCE IV Last administered on 16:26; Start 07/30/16 at 16:30; Stop 07/30/16 at 17:29; Status DC Ibuprofen (Motrin) 200 mg PRN Q6HRS PRN PO fever; Start 07/30/16 at 19:45; Stop 08/01/16 at 12:22; Status DC Metoprolol Tartrate (Lopressor) 2.5 mg 1X ONCE IVP Last administered on 20:23; Start 07/30/16 at 20:30; Stop 07/30/16 at 20:31; Status DC Metoprolol Tartrate 5 mg 5 mg PRN Q2HR PRN IVP HYPERTENSION Last administered on 07/31/16 08:04; Start 07/30/16 at 22:30 Potassium Chloride (KCl Premix 20meq) 50 ml @ 50 mls/hr Q1H IV Last administered on 07/31/16 09:04; Start 07/31/16 at 07:00; Stop 07/31/16 at 08:59 ; Status DC Metoprolol Tartrate (Lopressor) 12.5 mg BID NG Last administered on 08/02/16 08:55; Start 07/31/16 at 10:00 Docusate Sodium (Colace Solution) 100 mg PRN DAILY PRN PO constipation Last administered on 08/01/16 08:40; Start 07/31/16 at 11:00 Hydralazine HCl (Apresoline) 10 mg PRN Q2HRS PRN IVP ELEVATED BP, SEE COMMENTS Last administered on 08/01/16 16:35; Start 07/31/16 at 13:30 Fentanyl Citrate (Fentanyl 2ml Vial) 50 mcg PRN Q2HR PRN IV PAIN Last administered on 07/31/16 18:03; Start 07/31/16 at 13:45 Furosemide (Lasix) 40 mg TID IVP Last administered on 08/02/16 05:49; Start at 14:00 Alteplase, Recombinant (Cathflo) 2 mg 1X ONCE INT CAT Last administered on 23:34; Start 07/31/16 at 23:15; Stop 07/31/16 at 23:16; Status DC Haloperidol Lactate (Haldol) 5 mg PRN Q6HRS PRN IVP MODERATE AGITATION Last administered on 08/01/16 21:21; Start 08/01/16 at 21:00 Haloperidol Lactate 10 mg 10 mg PRN Q6HRS PRN IVP SEVERE AGITATION Last administered on 08/01/16 23:59; Start 08/01/16 at 23:45 Propofol 100 ml @ 0 mls/hr CONT PRN IV SEE I/O RECORD Last administered on 08/02 11:43; Start 08/02/16 at 02:45 Piperacillin Sod/ Tazobactam Sod/ Sodium Chloride (Zosyn/Iv Sodium Chloride 0.9 % 50ml) 50 ml @ 100 mls/hr Q6HRS IV ; Start 08/02/16 at 12:00 Vancomycin HCl 1 each 1 each PRN DAILY PRN MC SEE COMMENTS; Start 08/02/16 at 11:45 Vancomycin HCl/ Sodium Chloride (Iv Sodium Chloride 0.9% 500ml Bag) 500 ml @ 250 mls/hr 1X ONCE IV Last administered on 08/02/16 11:52; Start 08/02/16 at 12:00; Stop 08/02/16 at 13:59 Active Scripts Active Reported Amlodipine Besylate 5 Mg Tablet 5 Mg PO DAILY Pradaxa (Dabigatran Etexilate Mesylate) 150 Mg Capsule 1 Cap PO BID Metoprolol Succinate ( Xl ) (Metoprolol Succinate) 100 Mg Tab.er.24h 1 Tab PO DAILY Vitals/I & O Vital Sign - Last 24 Hours 08/01/16 08/01/16 08/01/16 08/01/16 13:00 13:08 14:00 15:00 Pulse 120 120 122 Resp 15 16 16 B/P 146/74 152/78 154/70 Pulse Ox 99 99 99 99 O2 Delivery Ventilator Ventilator Ventilator Ventilator 08/01/16 08/01/16 08/01/16 08/01/16 16:00 16:00 16:35 17:00 Temp 99.8 99.8 Pulse 122 122 120 Resp 16 16 B/P 152/78 140/60 166/78 Pulse Ox 99 97 O2 Delivery Mechanical Ventilator Ventilator Ventilator 08/01/16 08/01/16 08/01/16 08/01/16 17:05 18:00 19:00 20:00 Pulse 126 124 Resp 16 30 B/P 134/66 140/64 Pulse Ox 99 99 99 O2 Delivery Ventilator Ventilator Ventilator Mechanical Ventilator 08/01/16 08/01/16 08/01/16 08/01/16 20:00 20:21 21:00 21:09 Temp 99.0 99.0 Pulse 126 138 138 Resp 30 30 B/P 136/66 146/70 146/70 Pulse Ox 98 97 O2 Delivery Ventilator Ventilator Ventilator 08/01/16 08/01/16 08/01/16 08/01/16 21:10 22:00 23:00 23:08 Pulse 138 124 120 Resp 30 28 B/P 146/70 133/70 120/60 Pulse Ox 97 98 98 O2 Delivery Ventilator Ventilator Ventilator 08/01/16 08/01/16 08/02/16 08/02/16 23:59 23:59 00:45 01:00 Temp 99.0 99.0 Pulse 117 114 Resp 30 28 B/P 135/63 138/63 Pulse Ox 98 97 97 O2 Delivery Ventilator Mechanical Ventilator Ventilator Ventilator 08/02/16 08/02/16 08/02/16 08/02/16 02:00 02:30 02:45 02:55 Pulse 121 128 126 Resp 27 30 30 B/P 138/67 140/66 138/66 Pulse Ox 96 89 88 90 O2 Delivery Ventilator Ventilator Ventilator Ventilator 08/02/16 08/02/16 08/02/16 08/02/16 03:00 03:15 03:30 04:00 Temp 99.2 99.2 Pulse 140 128 124 118 Resp 26 28 24 24 B/P 115/63 128/60 138/62 121/60 Pulse Ox 93 93 95 94 O2 Delivery Ventilator Ventilator Ventilator Ventilator 08/02/16 08/02/16 08/02/16 08/02/16 04:00 05:00 05:30 06:00 Pulse 126 109 Resp 24 24 B/P 114/56 109/51 Pulse Ox 92 92 91 O2 Delivery Mechanical Ventilator Ventilator Ventilator Ventilator 08/02/16 08/02/16 08/02/16 08/02/16 07:00 07:10 07:45 08:00 Pulse 120 Resp 24 B/P 110/48 97/59 Pulse Ox 90 90 O2 Delivery Ventilator Ventilator Mechanical Ventilator 08/02/16 08/02/16 08/02/16 08/02/16 08:00 08:30 08:55 08:55 Temp 99.8 99.8 Pulse 131 131 131 Resp 24 B/P 95/47 95/47 95/47 Pulse Ox 87 90 O2 Delivery Ventilator 08/02/16 08/02/16 08/02/16 08:56 09:00 10:00 Pulse 131 112 118 Resp 24 24 B/P 95/47 109/51 102/50 Pulse Ox 90 89 O2 Delivery Ventilator Ventilator Intake and Output 08/01/16 08/01/16 08/02/16 15:00 23:00 07:00 Intake Total 60 ml 837 ml 716 ml Output Total 1560 ml 1900 ml 1680 ml Balance -1500 ml -1063 ml -964 ml MILA JEWELL MD Aug 02, 2016 12:22
[2016-08-02] MEDS ORDERED: IV NORMAL SALINE 500ML BAG 500 ML IV ONE (12:45)
[2016-08-02] MEDS: fentaNYL PF VIAL 100 MCG/2 ML VIAL IV PRN (12:57)
[2016-08-02] MEDS: DEXMEDETOMIDINE 200 MCG in IV NORMAL SALINE 50ML 48 ML IV PRN ×2 (13:09→19:22)
[2016-08-02] MEDS: ALBUMIN HUMAN 5% 250 ML IV PRN ×3 (13:12→16:12)
[2016-08-02] MEDS ORDERED: VECURONIUM BOLUS 10 MG VIAL. IV STA (13:17)
[2016-08-02] MEDS ORDERED: NALOXONE 0.4 MG/ML VIAL. IV PRN (13:30)
--- NOTE | 2016-08-02 14:01 | PDOC ---
Progress Note Subjective Subjective Hypoxic since early this morning with associated tachycardia. He's also intermittently been hypotensive. Levophed was started. Breathing mechanics appear to be dyssynchronous, he is fighting the vent. Increase in WBC, creatinine stable, BUN slightly higher at 38. Chest x-ray this morning was essentially clear. 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: Intubated,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, extremities flaccid SKIN: No rash IV: ok Labs Lab Laboratory Tests Test 08/02/16 00:01 08/02/16 05:50 08/02/16 07:45 Glucose (Fingerstick) 137mg/dL (70-99) White Blood Count 16.1x10^3/uL (4.0-11.0) Red Blood Count 2.90x10^6/uL (4.30-5.70) Hemoglobin 9.0g/dL (13.0-17.5) Hematocrit 28.5% (39.0-53.0) Mean Corpuscular Volume 98fL (79-100) Mean Corpuscular Hemoglobin 31pg (25-35) Mean Corpuscular Hemoglobin Concent 32g/dL (31-37) Red Cell Distribution Width 15.8% (11.5-14.5) Platelet Count 110x10^3/uL (140-400) Neutrophils (%) (Auto) 92% (31-73) Lymphocytes (%) (Auto) 4% (24-48) Monocytes (%) (Auto) 4% (0-9) Eosinophils (%) (Auto) 0% (0-3) Basophils (%) (Auto) 0% (0-3) Neutrophils # (Auto) 14.8x10^3uL (1.8-7.7) Lymphocytes # (Auto) 0.6x10^3/uL (1.0-4.8) Monocytes # (Auto) 0.6x10^3/uL (0.0-1.1) Eosinophils # (Auto) 0.0x10^3/uL (0.0-0.7) Basophils # (Auto) 0.0x10^3/uL (0.0-0.2) Sodium Level 150mmol/L (136-145) Potassium Level 4.3mmol/L (3.5-5.1) Chloride Level 114mmol/L (98-107) Carbon Dioxide Level 27mmol/L (21-32) Anion Gap 9 (6-14) Blood Urea Nitrogen 39mg/dL (8-26) Creatinine 1.2mg/dL (0.7-1.3) Estimated GFR (Cockcroft-Gault) 62.4 BUN/Creatinine Ratio 33 (6-20) Glucose Level 152mg/dL (70-99) Calcium Level 7.6mg/dL (8.5-10.1) Magnesium Level 2.8mg/dL (1.8-2.4) Total Bilirubin 5.8mg/dL (0.2-1.0) Aspartate Amino Transf (AST/SGOT) 91U/L (15-37) Alanine Aminotransferase (ALT/SGPT) 311U/L (16-63) Alkaline Phosphatase 209U/L (46-116) Total Protein 5.3g/dL (6.4-8.2) Albumin 2.4g/dL (3.4-5.0) Albumin/Globulin Ratio 0.8 (1.0-1.7) O2 Saturation 88% (92-99) Arterial Blood pH 7.43 (7.35-7.45) Arterial Blood pCO2 at Patient Temp 43mmHg (35-46) Arterial Blood pO2 at Patient Temp 57mmHg (75-108) Arterial Blood HCO3 28mmol/L (21-28) Arterial Blood Base Excess 3mmol/L (-3-3) FiO2 60 Objective Assessment Status post CABG 3 for severe ischemic cardiomyopathy, large anterior STEMI with troponin of 100, with early postoperative myocardial infarction/V. fib, leading to cardiogenic shock, placement of the vein graft to the LAD and impella for mechanical circulatory support and open chest. Sternotomy has been closed and the LVAD has been removed.. Hypoxic since early this morning with associated tachycardia. He's also intermittently been hypotensive. Levophed was started. Breathing mechanics appear to be dyssynchronous, he is fighting the vent. Increase in WBC, creatinine stable, BUN slightly higher at 38. Chest x-ray this morning was essentially clear. CT head yesterday did not show any strokes, although there was a small subdural fluid collection. He was seen by neurosurgery and neurology we will request a repeat CT just to confirm that it is not increasing in size. Otherwise he has no signs of critical care neuropathy. His encephalopathy is most likely metabolic. Not sure if this is due to agitation and confusion or if its an early sign of sepsis. He's not had any fevers. His last cultures from 24 hours ago are negative. He is not on any IV antibiotics. His chest x-ray this morning looks clear. Plan Plan of Care Keep dopamine at 2.5 mcg, may have to increase back to 5 mcg Continue Lasix 40mg iv TID 400mg po BID for A. fib control Needs to be on IV Zosyn and vancomycin We will paralyze him temporarily to improve breathing mechanics Will increase vent settings to improve oxygenation Repeat chest x-ray and echo this afternoon OLGA LOPEZ MD Aug 02, 2016 14:01
--- NOTE | 2016-08-02 14:21 | RAD ---
Portable chest, 08/02/2016, 2:11 PM: History: Hypotension, hypoxia Comparison is made to a study from earlier the same day. The ET tube tip lies well above the clara. An NG tube extends into the stomach. A right PICC extends into the superior vena cava. The heart size and pulmonary vascularity are within normal limits. There is increasing left basilar atelectasis/infiltrate, now obscuring the hemidiaphragm. There is minimal residual infrahilar atelectasis on the right. IMPRESSION: 1. Stable tube positions. 2. Increasing mild left basilar atelectasis/infiltrate.
--- NOTE | 2016-08-02 15:06 | EKG ---
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
--- NOTE | 2016-08-02 15:07 | CARD ---
APPROVED REPORT EXAM: Two-dimensional and M-mode echocardiogram with Doppler and color Doppler. Other Information Quality : FairHR: 150bpm Rhythm : Bradycardia INDICATION Chest pain RISK FACTORS Smoking 2D DIMENSIONS IVSd1.0 (0.7-1.1cm)LVDd3.8 (3.9-5.9cm) PWd0.9 (0.7-1.1cm)LVDs3.2 (2.5-4.0cm) FS (%) 15.2 %SV20.2 ml LVEF(%)32.8 (>50%) LEFT VENTRICLE The left ventricle is normal size. There is normal left ventricular wall thickness. Left ventricle sy stolic function appears to have mildly improved. The Ejection Fraction is now in the 25-30%. There is chronic severe global hypokinesis of the left ventricle.The distal 2/3 of the LV remains severely hy pokinetic. Chronic akinesis of the mid to distal anterior wall, apex and septum. Left ventricular margarita stolic dysfunction was not assessed. No left ventricle thrombus noted on this study. RIGHT VENTRICLE The RV was not assessed. ATRIA The left and right atria were not assessed. TRICUSPID VALVE There is no tricuspid valve stenosis. GREAT VESSELS The aortic root is normal in size. PERICARDIAL EFFUSION There is no evidence of significant pericardial effusion. Critical Notification Critical Value: Yes <Conclusion> Left ventricle systolic function appears to have mildly improved. The Ejection Fraction is now in the 25-30% range. There is chronic severe global hypokinesis of the left ventricle.The distal 2/3 of the LV remains se verely hypokinetic. Chronic akinesis of the mid to distal anterior wall, apex and septum.
[2016-08-02] MEDS: ACETAMINOPHEN 650 MG SUPP.RECT. PR PRN ×2 (15:16→19:22)
[2016-08-02] MEDS ORDERED: IV RINGERS,LACTATED 500ML 1,000 ML IV ONE (15:45)
[2016-08-02] MEDS: VASOPRESSIN 40 UNIT in IV DEXTROSE 5% 100 ML IV PRN (16:12)
[2016-08-02] MEDS: MICAFUNGIN 100 MG in IV DEXTROSE 5% 100 ML IV SCH (16:58)
[2016-08-02] MEDS: PIPERACILLIN/TAZOBACTAM 4.5 GM in IV NORMAL SALINE 100ML 100 ML IV SCH (18:03)
[2016-08-02] MEDS ORDERED: ALBUMIN HUMAN 5% 500 ML IV ONE (20:30)
[2016-08-02] MEDS ORDERED: FUROSEMIDE 40 MG/4 ML VIAL. IVP ONE (20:30)
[2016-08-02] MEDS: ATORVASTATIN CALCIUM 40 MG TABLET. PO SCH (21:18)
[2016-08-03] VITALS (26 sets, daily range): BP systolic 88–152; BP diastolic 48–78
[2016-08-03] MEDS ORDERED: VANCOMYCIN 1.25 GM in IV NORMAL SALINE 250ML 250 ML IV SCH ×2
[2016-08-03] MEDS: PIPERACILLIN/TAZOBACTAM 4.5 GM in IV NORMAL SALINE 100ML 100 ML IV SCH ×3 (00:16→12:00)
[2016-08-03] MEDS: NOREPINEPHRINE 8 MG in IV NORMAL SALINE 250 ML IV PRN ×2 (00:18→11:12)
[2016-08-03] MEDS: DEXMEDETOMIDINE 200 MCG in IV NORMAL SALINE 50ML 48 ML IV PRN ×3 (00:48→21:32)
[2016-08-03] MEDS: ACETAMINOPHEN 650 MG SUPP.RECT. PR PRN (01:04)
[2016-08-03] MEDS ORDERED: ACETAMINOPHEN 650 MG/20.3 ML SOLUTION. NG ONE (02:15)
[2016-08-03] MEDS ORDERED: KETOROLAC 15 MG/ML VIAL. IV ONE (02:15)
--- NOTE | 2016-08-03 05:13 | CONS ---
DATE OF CONSULTATION: 08/02/2016 REASON FOR CONSULTATION: Intracranial hemorrhage. HISTORY OF PRESENT ILLNESS: The patient is an unfortunate 56-year-old gentleman who recently suffered an ST-elevation myocardial infarction approximately 2 weeks ago. He underwent coronary artery bypass surgery with postoperative cardiogenic shock 1 week ago, required a left ventricular assist device with the wound left open and he had stabilized and was noted to be more awake. He was not following commands. Imaging was obtained of his head showing a small intracranial hemorrhage for which Neurosurgery is consulted. Per discussion with nursing, the patient has had multiple episodes of significant hypotension. There is no history of neuropathy, stroke, seizure or head injury. There is a history of longstanding atrial fibrillation. PAST MEDICAL HISTORY: Includes coronary artery disease, hypertension, atrial fibrillation. PAST SURGICAL HISTORY: Includes the aforementioned. FAMILY HISTORY: Positive for coronary artery disease. SOCIAL HISTORY: He is . He smokes 1/2 pack of cigarettes per day. He utilizes alcohol rarely. REVIEW OF SYSTEMS: Unobtainable as the patient is intubated and sedated. PHYSICAL EXAMINATION: VITAL SIGNS: His temperature is 99.8 degrees Fahrenheit, pulse is 112, respirations 24, he does over-breathe the vent, blood pressure 109/51, O2 sat is ____ on the ventilator. GENERAL: He is intubated and sedated. HEENT: There is no eye opening. He does have equal and reactive pupils. NEUROLOGIC: No motor function is appreciated in 4 extremities to noxious stimuli. He does not track or ____. CHEST: He has a dressing noted about the chest. No cough is appreciated upon suctioning. RADIOLOGY: There is a noncontrast CT scan of the head showing a very small extraaxial hyperdense collection posteriorly near the right hemispheric vertex, has the appearance of a very small subdural hematoma. There is no significant mass effect. No other significant findings are identified. ASSESSMENT: This is a 56-year-old gentleman with recent coronary artery bypass graft with a recent history of cardiogenic shock, who was found to have a small subdural hematoma near the vertex without significant mass effect. This radiographic finding is unlikely to be responsible for his current neurological status. It is more likely multifactorial including metabolic and post-bypass encephalopathy the lesion, he should be maintained normotensive with systolic blood pressure less than 140. Anticoagulation has been held at this time. He is scheduled for repeat noncontrast CT scan of the head, but has not traveled for that yet as there is some question as to his cardiopulmonary instability for this. We will continue to follow and provide with any additional recommendations as appropriate. TYREE NELSON MD DR: BALA/pato JOB#: [id number] / [id number]
[2016-08-03] MEDS: IPRATROPIUM BROMIDE 0.5 MG/2.5 ML NEBU. NEB SCH ×4 (07:57→21:04)
[2016-08-03 08:00] LABS: ALBUMIN 2.2 g/dL (3.4-5.0); ALBUMIN/GLOBULIN RATIO 0.7 (1.0-1.7); CALCIUM 6.3 mg/dL (8.5-10.1); CREATININE 3.1 mg/dL (0.7-1.3); GFR 20.9; MAGNESIUM 2.7 mg/dL (1.8-2.4); POTASSIUM 5.3 mmol/L (3.5-5.1); TOTAL BILIRUBIN 7.1 mg/dL (0.2-1.0); TOTAL PROTEIN 5.2 g/dL (6.4-8.2)
[2016-08-03 08:21] LABS: HCO3 ABG 19 mmol/L (21-28); PCO2 ABG 40 mmHg (35-46); PO2 ABG 85 mmHg (75-108); SAT O2 ABG 95 % (92-99)
[2016-08-03 08:23] LABS: FIO2 ABG 50
[2016-08-03] MEDS: CHLORHEXIDINE 0.12% 15 ML MOUTHWASH. MM SCH ×2 (09:00→21:53)
[2016-08-03] MEDS: MINERAL OIL/PETROLATUM,WHITE OPHTH OINT 3.5GM TUBE. OU SCH ×2 (09:00→21:55)
[2016-08-03] MEDS: METOPROLOL TART IMMED RELEASE 25 MG TABLET. NG SCH ×2 (09:00→21:54)
[2016-08-03] MEDS: ASPIRIN 325 MG TABLET PO SCH (09:13)
[2016-08-03] MEDS: AMIODARONE HCL 200 MG TABLET. PO SCH ×2 (09:14→21:55)
[2016-08-03] MEDS: FAMOTIDINE 20 MG/2 ML VIAL IVP SCH (09:15)
[2016-08-03 09:27] LABS: BASO % 0 % (0-3); EOS % 0 % (0-3); LYMPH # 0.8 x10^3/uL (1.0-4.8); LYMPH % 7 % (24-48); MEAN CORPUSCULAR HEMOGLOBIN 32 pg (25-35); MEAN CORPUSCULAR HGB CONC 33 g/dL (31-37); MEAN CORPUSCULAR VOLUME 99 fL (79-100); MONO % 4 % (0-9); NEUT % 89 % (31-73); PLATELET COUNT 90 x10^3/uL (140-400); RED BLOOD COUNT 2.32 x10^6/uL (4.30-5.70); RED CELL DISTRIBUTION WIDTH 17.7 % (11.5-14.5); WHITE BLOOD COUNT 11.9 x10^3/uL (4.0-11.0)
[2016-08-03 09:30] LABS: HEMOGLOBIN 7.5 g/dL (13.0-17.5)
[2016-08-03] MEDS ORDERED: SODIUM BICARB ADULT 8.4% 50 MEQ/50 ML DISP.SYRIN. IV ONE (10:15)
[2016-08-03] MEDS ORDERED: IV RINGERS,LACTATED 500ML 500 ML IV ONE (10:15)
--- NOTE | 2016-08-03 10:47 | PDOC ---
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 Small right frontal subdural hematoma Plan Continue present observation and supportive care I had ordered head CT yesterday, was delayed because of hemodynamic instability , will be done today Subjective None Objective Vital Signs Date Time Temp Pulse Resp B/P Pulse Ox O2 Delivery O2 Flow Rate FiO2 08/03/16 10:09 97 Ventilator 08/03/16 10:00 100.4 92 17 108/52 100.4 Intake and Output 08/03/16 07:00 Intake Total 4497.5 ml Output Total 800 ml Balance 3697.5 ml Intake Oral 0 ml IV Total 4077.5 ml Tube Feeding 370 ml Other 50 ml Output Urine Total 800 ml PHYSICAL EXAM On ventilator, eyes open, responds to visual threat PERRL. EOMI. CN: no focal findings. Muscle tone: normal. Muscle strength: moves all extremities to pain DTR: 1+ Plantar reflex: silent Gait: not examined in bed. Sensory exam: no abnormal findings. No cerebellar signs elicited. Review of Relevant I have reviewed the following items leonidas (where applicable) has been applied. Labs Laboratory Tests Test 08/02/16 00:01 08/02/16 05:50 08/02/16 07:45 08/03/16 07:30 Glucose (Fingerstick) 137mg/dL (70-99) White Blood Count 16.1x10^3/uL (4.0-11.0) 11.9x10^3/uL (4.0-11.0) Red Blood Count 2.90x10^6/uL (4.30-5.70) 2.32x10^6/uL (4.30-5.70) Hemoglobin 9.0g/dL (13.0-17.5) 7.5g/dL (13.0-17.5) Hematocrit 28.5% (39.0-53.0) 23.0% (39.0-53.0) Mean Corpuscular Volume 98fL (79-100) 99fL (79-100) Mean Corpuscular Hemoglobin 31pg (25-35) 32pg (25-35) Mean Corpuscular Hemoglobin Concent 32g/dL (31-37) 33g/dL (31-37) Red Cell Distribution Width 15.8% (11.5-14.5) 17.7% (11.5-14.5) Platelet Count 110x10^3/uL (140-400) 90x10^3/uL (140-400) Neutrophils (%) (Auto) 92% (31-73) 89% (31-73) Lymphocytes (%) (Auto) 4% (24-48) 7% (24-48) Monocytes (%) (Auto) 4% (0-9) 4% (0-9) Eosinophils (%) (Auto) 0% (0-3) 0% (0-3) Basophils (%) (Auto) 0% (0-3) 0% (0-3) Neutrophils # (Auto) 14.8x10^3uL (1.8-7.7) 10.6x10^3uL (1.8-7.7) Lymphocytes # (Auto) 0.6x10^3/uL (1.0-4.8) 0.8x10^3/uL (1.0-4.8) Monocytes # (Auto) 0.6x10^3/uL (0.0-1.1) 0.5x10^3/uL (0.0-1.1) Eosinophils # (Auto) 0.0x10^3/uL (0.0-0.7) 0.0x10^3/uL (0.0-0.7) Basophils # (Auto) 0.0x10^3/uL (0.0-0.2) 0.0x10^3/uL (0.0-0.2) Sodium Level 150mmol/L (136-145) 149mmol/L (136-145) Potassium Level 4.3mmol/L (3.5-5.1) 5.3mmol/L (3.5-5.1) Chloride Level 114mmol/L (98-107) 112mmol/L (98-107) Carbon Dioxide Level 27mmol/L (21-32) 25mmol/L (21-32) Anion Gap 9 (6-14) 12 (6-14) Blood Urea Nitrogen 39mg/dL (8-26) 82mg/dL (8-26) Creatinine 1.2mg/dL (0.7-1.3) 3.1mg/dL (0.7-1.3) Estimated GFR (Cockcroft-Gault) 62.4 20.9 BUN/Creatinine Ratio 33 (6-20) 26 (6-20) Glucose Level 152mg/dL (70-99) 174mg/dL (70-99) Calcium Level 7.6mg/dL (8.5-10.1) 6.3mg/dL (8.5-10.1) Magnesium Level 2.8mg/dL (1.8-2.4) 2.7mg/dL (1.8-2.4) Total Bilirubin 5.8mg/dL (0.2-1.0) 7.1mg/dL (0.2-1.0) Aspartate Amino Transf (AST/SGOT) 91U/L (15-37) 50U/L (15-37) Alanine Aminotransferase (ALT/SGPT) 311U/L (16-63) 127U/L (16-63) Alkaline Phosphatase 209U/L (46-116) 83U/L (46-116) Total Protein 5.3g/dL (6.4-8.2) 5.2g/dL (6.4-8.2) Albumin 2.4g/dL (3.4-5.0) 2.2g/dL (3.4-5.0) Albumin/Globulin Ratio 0.8 (1.0-1.7) 0.7 (1.0-1.7) O2 Saturation 88% (92-99) Arterial Blood pH 7.43 (7.35-7.45) Arterial Blood pCO2 at Patient Temp 43mmHg (35-46) Arterial Blood pO2 at Patient Temp 57mmHg (75-108) Arterial Blood HCO3 28mmol/L (21-28) Arterial Blood Base Excess 3mmol/L (-3-3) FiO2 60 Test 08/03/16 07:50 O2 Saturation 95% (92-99) Arterial Blood pH 7.30 (7.35-7.45) Arterial Blood pCO2 at Patient Temp 40mmHg (35-46) Arterial Blood pO2 at Patient Temp 85mmHg (75-108) Arterial Blood HCO3 19mmol/L (21-28) Arterial Blood Base Excess -7mmol/L (-3-3) FiO2 50 Laboratory Tests Test 08/03/16 07:30 08/03/16 07:50 White Blood Count 11.9x10^3/uL (4.0-11.0) Red Blood Count 2.32x10^6/uL (4.30-5.70) Hemoglobin 7.5g/dL (13.0-17.5) Hematocrit 23.0% (39.0-53.0) Mean Corpuscular Volume 99fL (79-100) Mean Corpuscular Hemoglobin 32pg (25-35) Mean Corpuscular Hemoglobin Concent 33g/dL (31-37) Red Cell Distribution Width 17.7% (11.5-14.5) Platelet Count 90x10^3/uL (140-400) Neutrophils (%) (Auto) 89% (31-73) Lymphocytes (%) (Auto) 7% (24-48) Monocytes (%) (Auto) 4% (0-9) Eosinophils (%) (Auto) 0% (0-3) Basophils (%) (Auto) 0% (0-3) Neutrophils # (Auto) 10.6x10^3uL (1.8-7.7) Lymphocytes # (Auto) 0.8x10^3/uL (1.0-4.8) Monocytes # (Auto) 0.5x10^3/uL (0.0-1.1) Eosinophils # (Auto) 0.0x10^3/uL (0.0-0.7) Basophils # (Auto) 0.0x10^3/uL (0.0-0.2) Sodium Level 149mmol/L (136-145) Potassium Level 5.3mmol/L (3.5-5.1) Chloride Level 112mmol/L (98-107) Carbon Dioxide Level 25mmol/L (21-32) Anion Gap 12 (6-14) Blood Urea Nitrogen 82mg/dL (8-26) Creatinine 3.1mg/dL (0.7-1.3) Estimated GFR (Cockcroft-Gault) 20.9 BUN/Creatinine Ratio 26 (6-20) Glucose Level 174mg/dL (70-99) Calcium Level 6.3mg/dL (8.5-10.1) Magnesium Level 2.7mg/dL (1.8-2.4) Total Bilirubin 7.1mg/dL (0.2-1.0) Aspartate Amino Transf (AST/SGOT) 50U/L (15-37) Alanine Aminotransferase (ALT/SGPT) 127U/L (16-63) Alkaline Phosphatase 83U/L (46-116) Total Protein 5.2g/dL (6.4-8.2) Albumin 2.2g/dL (3.4-5.0) Albumin/Globulin Ratio 0.7 (1.0-1.7) O2 Saturation 95% (92-99) Arterial Blood pH 7.30 (7.35-7.45) Arterial Blood pCO2 at Patient Temp 40mmHg (35-46) Arterial Blood pO2 at Patient Temp 85mmHg (75-108) Arterial Blood HCO3 19mmol/L (21-28) Arterial Blood Base Excess -7mmol/L (-3-3) FiO2 50 Microbiology 07/30/16 Blood Culture - Preliminary, Resulted NO GROWTH AFTER 3 DAYS 07/31/16 Sputum Culture - Preliminary, Resulted 07/31/16 Sputum Result 1 - Preliminary, Resulted 07/31/16 Gram Stain - Final, Complete Medications Current Medications Nitroglycerin 0.4 mg 0.4 mg PRN Q5MIN PRN SL CP RATING > 1/10; Start 07/20/16 at 09:45; Stop 07/20/16 at 15:05; Status DC Nitroglycerin/ Dextrose (Nitroglycerin Drip) 250 ml @ 3 mls/hr 1X ONCE IV Last administered on 07/20/16t 10:02; Start 07/20/16 at 10:30; Stop 07/23/16 at 21: 49; Status DC Morphine Sulfate 2 mg PRN Q15MIN PRN IV/SQ PAIN GREATER THAN 3/10; Start at 09:45; Stop 07/21/16 at 09:44; Status DC Ondansetron HCl (Zofran) 4 mg PRN Q8HRS PRN IV NAUSEA/VOMITING; Start 07/20/16 at 12:30; Stop 07/20/16 at 13:36; Status DC Morphine Sulfate 2 mg 2 mg PRN Q2HR PRN IV PAIN; Start 07/20/16 at 12:30; Stop 07/21/16 at 12:29; Status DC Heparin Sodium/ Dextrose 500 ml @ 0 mls/hr CONT PRN IV . Last administered on 10:32; Start 07/20/16 at 13:00; Stop 07/21/16 at 14:50; Status DC Metoprolol Tartrate (Lopressor) 5 mg Q6HRS IVP ; Start 07/20/16 at 13:00; Stop at 14:53; Status DC Aspirin (Ecotrin) 325 mg [id number] PO Last administered on 07/21/16 08:11; Start 07/20/16 at 13:00; Stop 07/21/16 at 17:20; Status DC Ondansetron HCl (Zofran) 4 mg PRN Q6HRS PRN IV NAUSEA/VOMITING; Start 07/20/16 at 13:35; Stop 07/26/16 at 11:41; Status DC Acetaminophen (Tylenol) 500 mg PRN Q6HRS PRN PO MILD PAIN / TEMP Last administered on 07/29/16 09:55; Start 07/20/16 at 13:45; Stop 07/29/16 at 13:38 ; Status DC Docusate Sodium (Colace) 100 mg DAILY PO Last administered on 07/29/16 09:54; Start 07/20/16 at 15:00; Stop 07/29/16 at 10:03; Status DC Iohexol 100 ml 100 ml STK-MED ONCE .ROUTE ; Start 07/20/16 at 12:40; Stop at 13:44; Status DC Heparin Sodium/ Sodium Chloride 1,000 ml @ As Directed STK-MED ONCE .ROUTE ; Start 07/20/16 at 12:41; Stop 07/20/16 at 13:44; Status DC Lidocaine HCl 20 ml STK-MED ONCE .ROUTE ; Start 07/20/16 at 12:41; Stop 07/20/16 at 13:44; Status DC Fentanyl Citrate (Fentanyl 2ml Vial) 100 mcg STK-MED ONCE .ROUTE ; Start at 13:42; Stop 07/20/16 at 13:45; Status DC Midazolam HCl (Versed) 2 mg STK-MED ONCE .ROUTE ; Start 07/20/16 at 13:42; Stop 07/20/16 at 13:45; Status DC Heparin Sodium/ Sodium Chloride 1,000 unit 1X ONCE IART Last administered on 14:29; Start 07/20/16 at 14:00; Stop 07/20/16 at 14:01; Status DC Heparin Sodium/ Sodium Chloride 1,000 unit 1X ONCE IART Last administered on 14:29; Start 07/20/16 at 14:00; Stop 07/20/16 at 14:01; Status DC Midazolam HCl (Versed) 2 mg 1X ONCE IV Last administered on 07/20/16 14:28; Start 07/20/16 at 14:00; Stop 07/20/16 at 14:01; Status DC Fentanyl Citrate (Fentanyl 2ml Vial) 100 mcg 1X ONCE IV Last administered on 14:28; Start 07/20/16 at 14:00; Stop 07/20/16 at 14:01; Status DC Iohexol (Omnipaque 300 Mg/ml) 100 ml 1X ONCE IART Last administered on 14:29; Start 07/20/16 at 14:00; Stop 07/20/16 at 14:01; Status DC Lidocaine HCl 20 ml 1X ONCE IJ Last administered on 07/20/16 14:29; Start 07/20 at 14:00; Stop 07/20/16 at 14:01; Status DC Midazolam HCl (Versed) 2 mg STK-MED ONCE .ROUTE ; Start 07/20/16 at 14:15; Stop 07/20/16 at 14:16; Status DC Sodium Chloride 3 ml 3 ml QSHIFT PRN IV AFTER MEDS AND BLOOD DRAWS; Start at 14:45; Stop 07/29/16 at 13:51; Status DC Sodium Chloride (Iv Sodium Chloride 0.9% 1000ml Bag) 1,000 ml @ 60 mls/hr [id number] IV Last administered on 07/20/16 14:44; Start 07/20/16 at 14:44; Stop at 00:43; Status DC Metoprolol Tartrate (Lopressor) 12.5 mg BID PO ; Start 07/20/16 at 21:00; Stop at 21:00; Status DC Lisinopril (Prinivil) 5 mg DAILY PO Last administered on 07/20/16 16:25; Start 07/20/16 at 15:00; Stop 07/20/16 at 17:21; Status DC Atorvastatin Calcium (Lipitor) 20 mg QHS PO Last administered on 07/20/16 20:33 ; Start 07/20/16 at 21:00; Stop 07/21/16 at 08:11; Status DC Nitroglycerin (Nitrostat) 0.4 mg PRN Q5MIN PRN SL CHEST PAIN Last administered on 07/25/16 04:55; Start 07/20/16 at 14:45; Stop 07/26/16 at 11:41; Status DC Hydralazine HCl (Apresoline) 10 mg PRN Q4HRS PRN IVP ELEVATED BP, SEE COMMENTS Last administered on 07/31/16 10:58; Start 07/20/16 at 17:15; Stop 07/31/16 at 13:31; Status DC Metoprolol Tartrate (Lopressor) 50 mg BID PO Last administered on 07/22/16 08: 31; Start 07/20/16 at 21:00; Stop 07/22/16 at 19:03; Status DC Alprazolam (Xanax) 0.25 mg PRN Q8HRS PRN PO ANXIETY / AGITATION Last administered on 07/24/16 21:34; Start 07/20/16 at 17:30; Stop 07/29/16 at 13:38; Status DC Heparin Sodium (Porcine) 2050 unit 2,050 unit PRN Q6HRS PRN IV FOR UFH LEVEL LESS THAN 0.2 Last administered on 07/21/16 04:24; Start 07/20/16 at 19:45; Stop 07/26/16 at 08:55; Status DC Heparin Sodium/ Dextrose 500 ml @ 19.4 mls/hr CONT PRN IV SEE I/O RECORD; Start 07/20/16 at 19:45; Stop 07/21/16 at 16:24; Status DC Heparin Sodium (Porcine) (Heparin Sodium) 2,050 unit PRN Q6HRS PRN IV FOR UFH LEVEL LESS THAN 0.2; Start 07/20/16 at 19:45; Status UNV Atorvastatin Calcium (Lipitor) 40 mg QHS PO Last administered on 08/02/16 21: 18; Start 07/21/16 at 21:00 Iodixanol (Visipaque 320) 200 ml STK-MED ONCE .ROUTE ; Start 07/20/16 at 14:00; Stop 07/21/16 at 08:26; Status DC Zolpidem Tartrate (Ambien) 5 mg PRN QHS PRN PO INSOMNIA, MAY REPEAT IN 1HR; Start 07/21/16 at 15:30; Stop 07/29/16 at 13:38; Status DC Metoprolol Tartrate 25 mg 25 mg 1X ONCE PO ; Start 07/22/16 at 06:00; Stop at 06:02; Status DC Cefazolin Sodium/ Dextrose 50 ml @ 100 mls/hr 1X ONCE IV ; Start 07/22/16 at 06 :00; Stop 07/22/16 at 06:29; Status DC Heparin Sodium/ Dextrose 500 ml @ 0 mls/hr CONT PRN IV SEE I/O RECORD Last administered on 07/24/16 01:40; Start 07/21/16 at 16:30; Stop 07/26/16 at 08:55; Status DC Lidocaine HCl 2 ml 2 ml 1X PRN PRN ID IV START; Start 07/25/16 at 06:00; Stop 07/26/16 at 05:59; Status Cancel Lactated Ringer's (Iv Lactated Ringers) 1,000 ml @ 0 mls/hr Q0M IV Last administered on 07/25/16 07:30; Start 07/25/16 at 06:00; Stop 07/25/16 at 17:59 ; Status DC Fentanyl Citrate (Fentanyl 2ml Vial) 25 mcg PRN Q5MIN PRN IV Acute Pain; Start 07/22/16 at 09:15; Stop 07/23/16 at 09:14; Status DC Morphine Sulfate 2 mg PRN Q10MIN PRN IV Mild Pain; Start 07/22/16 at 09:15; Stop 07/23/16 at 09:14; Status DC Hydromorphone HCl (Dilaudid) 0.4 mg PRN Q10MIN PRN IV Moderate to severe pain; Start 07/22/16 at 09:15; Stop 07/23/16 at 09:14; Status DC Ondansetron HCl (Zofran) 4 mg PRN Q6HRS PRN IV Nausea, 1st Choice; Start at 09:15; Stop 07/23/16 at 09:14; Status DC Prochlorperazine Edisylate (Compazine) 5 mg PRN Q6HRS PRN IV Nausea/Vomiting, 2nd Choice; Start 07/22/16 at 09:15; Stop 07/23/16 at 09:14; Status DC Ondansetron HCl (Zofran) 4 mg PRN Q6HRS PRN IV NAUSEA/VOMITING; Start 07/25/16 at 07:00; Stop 07/26/16 at 06:59; Status DC Fentanyl Citrate (Fentanyl 2ml Vial) 25 mcg PRN Q5MIN PRN IV MILD PAIN; Start 07/25/16 at 07:00; Stop 07/26/16 at 06:59; Status DC Fentanyl Citrate (Fentanyl 2ml Vial) 50 mcg PRN Q5MIN PRN IV MODERATE PAIN; Start 07/25/16 at 07:00; Stop 07/26/16 at 06:59; Status DC Morphine Sulfate 1 mg 1 mg PRN Q10MIN PRN IV SEVERE PAIN; Start 07/25/16 at 07: 00; Stop 07/25/16 at 20:28; Status DC Lactated Ringer's (Iv Lactated Ringers) 1,000 ml @ 0 mls/hr Q0M IV ; Start 01/31 at 07:00; Stop 07/25/16 at 18:59; Status Cancel Lidocaine HCl 2 ml PRN 1X PRN ID PRIOR TO IV START Last administered on t 07:16; Start 07/25/16 at 07:00; Stop 07/26/16 at 06:59; Status DC Hydromorphone HCl (Dilaudid) 0.5 mg PRN Q10MIN PRN IV SEV PAIN, Second choice; Start 07/25/16 at 07:00; Stop 07/26/16 at 06:59; Status DC Prochlorperazine Edisylate 5 mg 5 mg PACU PRN PRN IV NAUSEA, MRX1; Start at 07:00; Stop 07/26/16 at 06:59; Status DC Cefazolin Sodium/ Dextrose (Ancef 2gm Premix) 50 ml @ 100 mls/hr 1X ONCE IV Last administered on 07/25/16 08:12; Start 07/25/16 at 06:00; Stop 07/25/16 at 06:29; Status DC Metoprolol Tartrate (Lopressor) 25 mg 1X ONCE PO ; Start 07/25/16 at 06:00; Stop 07/25/16 at 06:00; Status DC Metoprolol Tartrate (Lopressor) 2.5 mg 1X ONCE IVP Last administered on 16:30; Start 07/22/16 at 16:30; Stop 07/22/16 at 16:31; Status DC Digoxin (Lanoxin) 250 mcg 1X ONCE IV ; Start 07/22/16 at 18:30; Stop 07/22/16 at 18:42; Status DC Digoxin (Lanoxin) 500 mcg 1X ONCE IV Last administered on 07/22/16 18:47; Start 07/22/16 at 18:45; Stop 07/22/16 at 18:46; Status DC Metoprolol Tartrate (Lopressor) 75 mg BID PO Last administered on 07/24/16 21: 30; Start 07/22/16 at 21:00; Stop 07/25/16 at 13:12; Status DC Nitroglycerin 0.4 mg 0.4 mg PRN Q5MIN PRN SL CHEST PAIN; Start 07/23/16 at 12:00 ; Status UNV Heparin Sodium (Porcine) 62480 unit/Lactated Ringer's 1,020 ml @ 1,020 mls/hr 1X PERIOP ONCE IRR Last administered on 07/25/16 08:46; Start 07/25/16 at 06: 00; Stop 07/25/16 at 06:59; Status DC Potassium Chloride 70 meq/ Sodium Bicarbonate 12.5 meq/Lidocaine HCl 24 ml/ Parenteral Electrolytes 571.5 ml @ 571.5 mls/ hr 1X PERIOP ONCE IRR ; Start at 06:00; Stop 07/25/16 at 06:59; Status DC Potassium Chloride/Sodium Bicarbonate/ Parenteral Electrolytes (Isolyte S) 520 ml @ 520 mls/hr 1X PERIOP ONCE IRR ; Start 07/25/16 at 06:00; Stop 07/25/16 at 06:59; Status DC Etomidate (Amidate) 20 mg STK-MED ONCE IV ; Start 07/25/16 at 06:08; Stop at 06:09; Status DC Phenylephrine HCl (-Synephrine Inj) 10 mg STK-MED ONCE .ROUTE ; Start at 06:08; Stop 07/25/16 at 06:09; Status DC Aminocaproic Acid (Amicar) 5,000 mg STK-MED ONCE IV ; Start 07/25/16 at 06:08; Stop 07/25/16 at 06:09; Status DC Heparin Sodium (Porcine) (Heparin Sodium) 10,000 unit STK-MED ONCE .ROUTE ; Start 07/25/16 at 06:10; Stop 07/25/16 at 06:11; Status DC Rocuronium [place] (Zemuron) 100 mg STK-MED ONCE .ROUTE ; Start 07/25/16 at 06: 11; Stop 07/25/16 at 06:12; Status DC Morphine Sulfate 4 mg STK-MED ONCE .ROUTE ; Start 07/25/16 at 06:59; Stop at 07:00; Status DC Morphine Sulfate 4 mg 4 mg 1X ONCE IV ; Start 07/25/16 at 07:15; Stop 07/25/16 at 07:16; Status DC Cefazolin Sodium/ Sodium Chloride (Ancef/Iv Sodium Chloride 0.9% 500ml Bag) 500 ml @ 500 mls/hr 1X PERIOP ONCE IRR Last administered on 07/25/16 08:46; Start 07/25/16 at 07:15; Stop 07/25/16 at 08:14; Status DC Cellulose 1 each STK-MED ONCE .ROUTE Last administered on 07/25/16 08:46; Start 07/25/16 at 07:07; Stop 07/25/16 at 07:08; Status DC Vancomycin HCl (Vanco) 10 gm STK-MED ONCE .ROUTE Last administered on 08:46; Start 07/25/16 at 07:07; Stop 07/25/16 at 07:08; Status DC Papaverine HCl 60 mg STK-MED ONCE .ROUTE Last administered on 07/25/16 08:46; Start 07/25/16 at 07:07; Stop 07/25/16 at 07:08; Status DC Aspirin (Aspirin) 300 mg STK-MED ONCE .ROUTE Last administered on 07/25/16 17: 25; Start 07/25/16 at 07:08; Stop 07/25/16 at 07:09; Status DC Sodium Chloride (Sodium Chloride) 50 ml STK-MED ONCE IJ Last administered on 08:46; Start 07/25/16 at 07:08; Stop 07/25/16 at 07:09; Status DC Midazolam HCl (Versed) 2 mg STK-MED ONCE .ROUTE ; Start 07/25/16 at 07:15; Stop 07/25/16 at 07:16; Status DC Ephedrine Sulfate 50 mg 50 mg STK-MED ONCE IV ; Start 07/25/16 at 07:16; Stop at 07:17; Status DC Nitroglycerin/ Dextrose (Nitroglycerin Drip) 250 ml @ As Directed STK-MED ONCE IV ; Start 07/25/16 at 07:16; Stop 07/25/16 at 07:17; Status DC Midazolam HCl (Versed) 2 mg STK-MED ONCE .ROUTE ; Start 07/25/16 at 07:18; Stop 07/25/16 at 07:19; Status DC Fentanyl Citrate (Fentanyl 2ml Vial) 100 mcg STK-MED ONCE .ROUTE ; Start at 07:19; Stop 07/25/16 at 07:20; Status DC Sufentanil Citrate (Sufenta) 100 mcg STK-MED ONCE .ROUTE ; Start 07/25/16 at 07: 19; Stop 07/25/16 at 07:20; Status DC Midazolam HCl (Versed) 2 mg 1X ONCE IV ; Start 07/25/16 at 08:00; Stop at 08:01; Status DC Dexamethasone Sodium Phosphate (Decadron) 20 mg STK-MED ONCE .ROUTE ; Start 01/31 at 07:58; Stop 07/25/16 at 07:59; Status DC Rocuronium [place] (Zemuron) 100 mg STK-MED ONCE .ROUTE ; Start 07/25/16 at 08: 52; Stop 07/25/16 at 08:53; Status DC Sufentanil Citrate (Sufenta) 100 mcg STK-MED ONCE .ROUTE ; Start 07/25/16 at 08: 53; Stop 07/25/16 at 08:54; Status DC Protamine Sulfate 250 mg STK-MED ONCE IV ; Start 07/25/16 at 10:43; Stop at 10:44; Status DC Rocuronium [place] 100 mg 100 mg STK-MED ONCE .ROUTE ; Start 07/25/16 at 10:52; Stop 07/25/16 at 10:53; Status DC Albumin Human 0 ml @ As Directed STK-MED ONCE IV ; Start 07/25/16 at 10:53; Stop 07/25/16 at 10:54; Status DC Amiodarone HCl/ Dextrose (Cordarone) 518 ml @ 34.53 mls/ hr 1X ONCE IV Last administered on 07/25/16t 18:52; Start 07/25/16 at 11:30; Stop 07/26/16 at 02:30 ; Status DC Sodium Bicarbonate 50 meq STK-MED ONCE .ROUTE ; Start 07/25/16 at 11:35; Stop at 11:36; Status DC Protamine Sulfate 50 mg STK-MED ONCE IV ; Start 07/25/16 at 12:31; Stop at 12:32; Status DC Amiodarone HCl (Cordarone) 150 mg STK-MED ONCE .ROUTE ; Start 07/25/16 at 12:37 ; Stop 07/25/16 at 12:38; Status DC Isoflurane (Isoflurane) 90 ml STK-MED ONCE IH ; Start 07/25/16 at 12:42; Stop at 12:43; Status DC Lidocaine HCl (Lidocaine HCl 2% Abboject) 100 mg STK-MED ONCE .ROUTE ; Start 01/31 at 13:07; Stop 07/25/16 at 13:08; Status DC Mannitol (Mannitol) 12.5 g STK-MED ONCE .ROUTE ; Start 07/25/16 at 13:07; Stop 07/25/16 at 13:08; Status DC Calcium Chloride 1,000 mg STK-MED ONCE IV ; Start 07/25/16 at 13:07; Stop at 13:08; Status DC Sodium Bicarbonate 50 meq 50 meq STK-MED ONCE .ROUTE ; Start 07/25/16 at 13:07; Stop 07/25/16 at 13:08; Status DC Albumin Human (Albuminar) 100 ml @ As Directed STK-MED ONCE IV ; Start at 13:07; Stop 07/25/16 at 13:08; Status DC Magnesium Sulfate 5 gm STK-MED ONCE .ROUTE ; Start 07/25/16 at 13:08; Stop 07/25 at 13:09; Status DC Heparin Sodium (Porcine) 59592 unit 30,000 unit STK-MED ONCE .ROUTE ; Start 01/31 at 13:08; Stop 07/25/16 at 13:09; Status DC Clevidipine (Cleviprex) 100 ml @ 0 mls/hr CONT PRN IV PER PROTOCOL; Start 07/25 at 13:45; Stop 07/26/16 at 11:29; Status DC Heparin Sodium (Porcine) 09644 unit 30,000 unit STK-MED ONCE .ROUTE ; Start 01/31 at 13:39; Stop 07/25/16 at 13:40; Status DC Epinephrine HCl/ Sodium Chloride (Adrenalin/Iv Sodium Chloride 0.9% 250ml) 254 ml @ 3.81 mls/hr CONT PRN IV SEE I/O RECORD; Start 07/25/16 at 13:45 Epinephrine HCl (Epinephrine Syringe) 1 mg STK-MED ONCE .ROUTE ; Start 07/25/16 at 13:52; Stop 07/25/16 at 13:53; Status DC Rocuronium [place] (Zemuron) 100 mg STK-MED ONCE .ROUTE ; Start 07/25/16 at 13: 57; Stop 07/25/16 at 13:58; Status DC Sodium Bicarbonate 50 meq 50 meq STK-MED ONCE .ROUTE ; Start 07/25/16 at 14:04; Stop 07/25/16 at 14:05; Status DC Procainamide HCl/ Dextrose (Pronestyl) 520 ml @ 15.6 mls/hr CONT PRN IV SEE I/ O RECORD; Start 07/25/16 at 14:30; Stop 07/28/16 at 15:22; Status DC Sodium Bicarbonate 50 meq STK-MED ONCE .ROUTE ; Start 07/25/16 at 14:31; Stop at 14:32; Status DC Sodium Bicarbonate 50 meq STK-MED ONCE .ROUTE ; Start 07/25/16 at 14:31; Stop at 14:32; Status DC Protamine Sulfate 50 mg STK-MED ONCE IV ; Start 07/25/16 at 15:13; Stop at 15:14; Status DC Protamine Sulfate 50 mg STK-MED ONCE IV ; Start 07/25/16 at 15:13; Stop at 15:14; Status DC Isoflurane 90 ml 90 ml STK-MED ONCE IH ; Start 07/25/16 at 15:13; Stop 07/25/16 at 15:14; Status DC Dobutamine HCl/ Dextrose 250 ml @ As Directed STK-MED ONCE IV ; Start 07/25/16 at 15:17; Stop 07/25/16 at 15:18; Status DC Iohexol 100 ml 100 ml STK-MED ONCE .ROUTE Last administered on 07/25/16t 15:39 ; Start 07/25/16 at 15:28; Stop 07/25/16 at 15:29; Status DC Norepinephrine Bitartrate 8 mg/ Sodium Chloride 258 ml @ 1.93 mls/hr 1X ONCE IV Last administered on 07/25/16t 18:53; Start 07/25/16 at 16:00; Stop at 08:04; Status DC Albumin Human (Plasmanate) 1,000 ml @ As Directed STK-MED ONCE IV ; Start 07/25 at 16:11; Stop 07/25/16 at 16:12; Status DC Heparin Sodium (Porcine) (Heparin Sodium) 10,000 unit STK-MED ONCE .ROUTE ; Start 07/25/16 at 16:19; Stop 07/25/16 at 16:20; Status DC Lidocaine HCl (Lidocaine HCl 2% Abboject) 100 mg STK-MED ONCE .ROUTE ; Start 01/31 at 16:19; Stop 07/25/16 at 16:20; Status DC Mannitol (Mannitol) 12.5 g STK-MED ONCE .ROUTE ; Start 07/25/16 at 16:19; Stop 07/25/16 at 16:20; Status DC Calcium Chloride 1,000 mg STK-MED ONCE IV ; Start 07/25/16 at 16:19; Stop at 16:20; Status DC Sodium Bicarbonate 50 meq STK-MED ONCE .ROUTE ; Start 07/25/16 at 16:19; Stop at 16:20; Status DC Magnesium Sulfate 5 gm STK-MED ONCE .ROUTE ; Start 07/25/16 at 16:19; Stop 07/25 at 16:20; Status DC Heparin Sodium (Porcine) (Heparin Sodium) 10,000 unit STK-MED ONCE .ROUTE ; Start 07/25/16 at 16:20; Stop 07/25/16 at 16:21; Status DC Lidocaine HCl (Lidocaine HCl 2% Abboject) 100 mg STK-MED ONCE .ROUTE ; Start 01/31 at 16:20; Stop 07/25/16 at 16:21; Status DC Aminocaproic Acid (Amicar) 5,000 mg STK-MED ONCE IV ; Start 07/25/16 at 16:20; Stop 07/25/16 at 16:21; Status DC Mannitol (Mannitol) 12.5 g STK-MED ONCE .ROUTE ; Start 07/25/16 at 16:20; Stop 07/25/16 at 16:21; Status DC Sodium Bicarbonate 50 meq 50 meq STK-MED ONCE .ROUTE ; Start 07/25/16 at 16:20; Stop 07/25/16 at 16:21; Status DC Albumin Human (Albuminar) 100 ml @ As Directed STK-MED ONCE IV ; Start at 16:20; Stop 07/25/16 at 16:21; Status DC Rocuronium [place] (Zemuron) 50 mg STK-MED ONCE .ROUTE ; Start 07/25/16 at 16:33 ; Stop 07/25/16 at 16:34; Status DC Rocuronium [place] (Zemuron) 50 mg STK-MED ONCE .ROUTE ; Start 07/25/16 at 16:33 ; Stop 07/25/16 at 16:34; Status DC Protamine Sulfate 50 mg STK-MED ONCE IV ; Start 07/25/16 at 16:34; Stop at 16:35; Status DC Sodium Bicarbonate 50 meq STK-MED ONCE .ROUTE ; Start 07/25/16 at 16:36; Stop at 16:37; Status DC Calcium Chloride 1,000 mg STK-MED ONCE IV ; Start 07/25/16 at 16:41; Stop at 16:42; Status DC Epinephrine HCl (Epinephrine Syringe) 1 mg STK-MED ONCE .ROUTE ; Start 07/25/16 at 16:41; Stop 07/25/16 at 16:42; Status DC Sodium Bicarbonate 50 meq STK-MED ONCE .ROUTE ; Start 07/25/16 at 16:52; Stop at 16:53; Status DC Sodium Bicarbonate 50 meq STK-MED ONCE .ROUTE ; Start 07/25/16 at 16:52; Stop at 16:53; Status DC Sodium Bicarbonate 50 meq STK-MED ONCE .ROUTE ; Start 07/25/16 at 16:52; Stop at 16:53; Status DC Vasopressin (Vasostrict) 20 unit STK-MED ONCE .ROUTE ; Start 07/25/16 at 16:54; Stop 07/25/16 at 16:55; Status DC Famotidine (Pepcid) 20 mg STK-MED ONCE .ROUTE ; Start 07/25/16 at 16:56; Stop at 16:57; Status DC Dexamethasone Sodium Phosphate (Decadron) 20 mg STK-MED ONCE .ROUTE ; Start 01/31 at 16:56; Stop 07/25/16 at 16:57; Status DC Diphenhydramine HCl 50 mg 50 mg STK-MED ONCE .ROUTE ; Start 07/25/16 at 16:56; Stop 07/25/16 at 16:57; Status DC Vasopressin/ Dextrose (Vasostrict) 102 ml @ 6 mls/hr CONT PRN IV SEE I/O RECORD Last administered on 08/02/16t 16:12; Start 07/25/16 at 17:15 Sodium Bicarbonate 50 meq STK-MED ONCE .ROUTE ; Start 07/25/16 at 17:24; Stop at 17:25; Status DC Sodium Bicarbonate 50 meq 50 meq STK-MED ONCE .ROUTE ; Start 07/25/16 at 17:24; Stop 07/25/16 at 17:25; Status DC Cefazolin Sodium/ Dextrose (Ancef 2gm Premix) 50 ml @ As Directed STK-MED ONCE IV ; Start 07/25/16 at 17:32; Stop 07/25/16 at 17:33; Status DC Sodium Chloride 3 ml 3 ml PRN Q12HR PRN IV AFTER MEDS AND BLOOD DRAWS; Start at 17:30; Stop 07/29/16 at 13:38; Status DC Lactated Ringer's 1,000 ml @ 15 mls/hr Q24H IV Last administered on 07/29/16 16:45; Start 07/25/16 at 17:30; Stop 07/31/16 at 15:33; Status DC Insulin Human Regular/Sodium Chloride (Novolin R Vial/ Iv Normal Saline 150ml) 151.5 ml @ 0 mls/hr CONT PRN PRN IV SEE I/O RECORD Last administered on 03:03; Start 07/25/16 at 17:30; Stop 07/29/16 at 13:51; Status DC Dextrose 25 gm 25 gm PRN Q15MIN PRN IV LOW BLOOD SUGAR; Start 07/25/16 at 17:30 ; Stop 07/29/16 at 13:51; Status DC Dopamine HCl/ Dextrose 250 ml @ 0 mls/hr CONT PRN PRN IV SEE I/O RECORD; Start 07/25/16 at 17:30; Stop 07/26/16 at 11:41; Status DC Amiodarone HCl/ Dextrose (Cordarone) 518 ml @ 33.33 mls/ hr CONT PRN PRN IV SEE COMMENTS; Start 07/25/16 at 17:30; Status UNV Info 1 ea CONT PRN PRN MC SEE COMMENTS; Start 07/25/16 at 17:30 Info 1 ea 1 ea CONT PRN PRN MC SEE COMMENTS; Start 07/25/16 at 17:30 Magnesium Sulfate/ Dextrose (Magnesium Sulfate PREMIX 1GM) 100 ml @ 100 mls/hr PRN DAILY PRN IV FOR MAG < 2.2 Last administered on 07/27/16 10:59; Start 01/31 at 17:30 Famotidine (Pepcid) 20 mg BID IVP Last administered on 08/03/16 09:15; Start 07/25/16 at 21:00 Metoclopramide HCl (Reglan) 10 mg PRN Q6HRS PRN IV NAUSEA/VOMITING Last administered on 07/29/16 09:54; Start 07/25/16 at 17:30 Morphine Sulfate 2 mg PRN Q1HR PRN IV PAIN Last administered on 07/28/16 14:21 ; Start 07/25/16 at 17:30; Stop 07/29/16 at 13:38; Status DC Acetaminophen (Tylenol) 650 mg PRN Q4HRS PRN PO MILD PAIN / TEMP; Start at 17:30; Stop 07/29/16 at 13:38; Status DC Acetaminophen (Acetaminophen Supp) [address] MILD PAIN / TEMP Last administered on 08/03/16 01:04; Start 07/25/16 at 17:30 Meperidine HCl 12.5 mg 12.5 mg PRN Q15MIN PRN IV SHIVERING; Start 07/25/16 at 17:30; Stop 07/29/16 at 13:38; Status DC Propofol (Diprivan) 100 ml @ 0 mls/hr CONT PRN PRN IV POSTOP SEDATION UNTIL EXTUBATE; Start 07/25/16 at 17:30; Stop 07/28/16 at 15:22; Status DC Aspirin (Ecotrin) 325 mg DAILYWBKFT PO Last administered on 07/29/16 09:54; Start 07/26/16 at 08:00; Stop 07/29/16 at 09:59; Status DC Aspirin (Aspirin) [address] IF UNABLE TO TAKE PO; Start 07/25/16 at 17:30; Stop 07/26/16 at 12:00; Status DC Acetaminophen/ Hydrocodone Bitart (Lortab 5/325) 1 tab PRN Q4HRS PRN PO MILD PAIN; Start 07/25/16 at 17:30 Acetaminophen/ Hydrocodone Bitart 2 tab 2 tab PRN Q4HRS PRN PO MODERATE PAIN, SEVERE PAIN; Start 07/25/16 at 17:30 Cefazolin Sodium/ Dextrose 50 ml @ 100 mls/hr Q8H IV ; Start 07/25/16 at 18:00 ; Stop 07/25/16 at 21:42; Status DC Albumin Human 250 ml @ 62.5 mls/hr 1X ONCE IV Last administered on 07/27/16 17:52; Start 07/25/16 at 17:30; Stop 07/25/16 at 21:29; Status DC Midazolam HCl 100 ml @ As Directed STK-MED ONCE IV ; Start 07/25/16 at 18:06; Stop 07/25/16 at 18:07; Status DC Midazolam HCl 100 ml @ 0 mls/hr CONT PRN IV SEE I/O RECORD Last administered on 07/25/16 18:56; Start 07/25/16 at 18:15; Stop 07/26/16 at 08:59; Status DC Vancomycin HCl 1 gm/Sodium Chloride 250 ml @ 250 mls/hr 1X ONCE IV Last administered on 07/25/16 20:56; Start 07/25/16 at 18:15; Stop 07/25/16 at 19:14 ; Status DC Piperacillin Sod/ Tazobactam Sod/ Sodium Chloride (Zosyn/Iv Sodium Chloride 0.9 % 50ml) 50 ml @ 100 mls/hr Q6HRS IV Last administered on 07/31/16 05:32; Start 07/25/16 at 18:15; Stop 07/31/16 at 10:25; Status DC Midazolam HCl (Versed) 2 mg PRN Q20MIN PRN IV SEDATION; Start 07/25/16 at 18:15 ; Stop 07/25/16 at 18:39; Status DC Midazolam HCl 5 mg 5 mg PRN Q30MIN PRN IV SEDATION; Start 07/25/16 at 18:15; Stop 07/25/16 at 18:39; Status DC Vecuronium [place] 100 mg/ Dextrose 100 ml @ 0 mls/hr 1X ONCE IV Last administered on 07/25/16 19:43; Start 07/25/16 at 18:15; Stop 07/25/16 at 18:17 ; Status DC Midazolam HCl 100 ml @ 0 mls/hr CONT PRN IV SEE I/O RECORD Last administered on 07/28/16 19:40; Start 07/25/16 at 18:45 Dobutamine HCl/ Dextrose 250 ml @ 0 mls/hr CONT PRN IV SEE I/O RECORD Last administered on 07/29/16 03:10; Start 07/25/16 at 18:45; Stop 07/29/16 at 13:38 ; Status DC Potassium Chloride 50 ml @ 50 mls/hr Q1H IV Last administered on 07/25/16 22: 58; Start 07/25/16 at 21:00; Stop 07/25/16 at 23:59; Status DC Cefazolin Sodium/ Dextrose 50 ml @ 100 mls/hr Q8H IV Last administered on 07/27 05:34; Start 07/25/16 at 22:00; Stop 07/27/16 at 06:29; Status DC Heparin Sodium (Porcine) 72396 unit/Dextrose 512.5 ml @ 0 mls/hr Q0M ONCE IV Last administered on 07/25/16 22:21; Start 07/25/16 at 22:15; Stop 07/25/16 at 22:16; Status DC Vecuronium [place]/Dextrose (Norcuron) 100 ml @ 0 mls/hr CONT PRN IV SEE I/O RECORD Last administered on 07/26/16 01:07; Start 07/26/16 at 00:45; Stop 07/29 at 13:38; Status DC Dextrose 25 gm 25 gm 1X ONCE IV Last administered on 07/26/16 01:08; Start at 01:00; Stop 07/26/16 at 01:18; Status DC Amiodarone HCl/ Dextrose (Cordarone) 259 ml @ 17.26 mls/ hr CONT PRN IV SEE I/ O RECORD Last administered on 07/30/16 13:02; Start 07/26/16 at 06:45; Stop at 15:33; Status DC Cefazolin Sodium/ Dextrose 2 gm 2 gm STK-MED ONCE IV ; Start 07/25/16 at 11:00; Stop 07/26/16 at 08:53; Status DC Lactated Ringer's 500 ml @ 5,000 mls/hr PRN Q10MIN PRN IV CVP <14; Start 07/26 at 10:00; Stop 07/29/16 at 13:38; Status DC Fentanyl Citrate (Fentanyl 600 Mcg/30 ml TURRET LATHE SET UP OPERATOR) 30 ml @ 0 mls/hr CONT PRN IV PROTOCOL Last administered on 07/31/16 09:12; Start 07/26/16 at 10:00; Stop at 13:31; Status DC Fentanyl Citrate (Fentanyl 2ml Vial) 25 mcg PRN Q1HR PRN IV COMM; Start at 10:00; Stop 07/29/16 at 13:38; Status DC Fentanyl Citrate (Fentanyl 2ml Vial) 50 mcg PRN Q1HR PRN IV COMM; Start at 10:00; Stop 07/29/16 at 13:38; Status DC Chlorhexidine Gluconate (Peridex) 15 ml BID MM Last administered on 08/02/16 21:19; Start 07/26/16 at 10:30 Sulfur Hexafluoride Microspheres (Lumason) 25 mg STK-MED ONCE IVP ; Start at 11:29; Stop 07/26/16 at 11:30; Status DC Aspirin 300 mg [address] Last administered on 07/28/16 07:55; Start 03/03 at 12:00; Stop 07/29/16 at 19:10; Status DC Potassium Chloride (KCl Premix 20meq) 50 ml @ 50 mls/hr 1X ONCE IV Last administered on 07/26/16 12:55; Start 07/26/16 at 12:00; Stop 07/26/16 at 12:59 ; Status DC Sulfur Hexafluoride Microspheres (Lumason) 25 mg 1X ONCE IVP Last administered on 07/26/16 11:45; Start 07/26/16 at 11:45; Stop 07/26/16 at 11:50 ; Status DC Multi-Ingred Cream/Lotion/Oil/ Oint (Artificial Tears Eye Oint) 1 adri BID OU Last administered on 08/02/16 21:20; Start 07/26/16 at 21:00 Ondansetron HCl (Zofran) 4 mg PRN Q6HRS PRN IV NAUSEA/VOMITING; Start 07/27/16 at 07:00; Stop 07/28/16 at 06:59; Status DC Fentanyl Citrate (Fentanyl 2ml Vial) 25 mcg PRN Q5MIN PRN IV MILD PAIN; Start 07/27/16 at 07:00; Stop 07/28/16 at 06:59; Status DC Fentanyl Citrate (Fentanyl 2ml Vial) 50 mcg PRN Q5MIN PRN IV MODERATE PAIN; Start 07/27/16 at 07:00; Stop 07/28/16 at 06:59; Status DC Morphine Sulfate 1 mg 1 mg PRN Q10MIN PRN IV SEVERE PAIN; Start 07/27/16 at 07: 00; Stop 07/28/16 at 06:59; Status DC Lactated Ringer's (Iv Lactated Ringers) 1,000 ml @ 30 mls/hr Q24H IV Last administered on 07/26/16 17:25; Start 07/27/16 at 07:00; Stop 07/27/16 at 18:59 ; Status DC Lidocaine HCl 2 ml PRN 1X PRN ID PRIOR TO IV START; Start 07/27/16 at 07:00; Stop 07/28/16 at 06:59; Status DC Hydromorphone HCl (Dilaudid) 0.5 mg PRN Q10MIN PRN IV SEV PAIN, Second choice; Start 07/27/16 at 07:00; Stop 07/28/16 at 06:59; Status DC Prochlorperazine Edisylate 5 mg 5 mg PACU PRN PRN IV NAUSEA, MRX1; Start at 07:00; Stop 07/28/16 at 06:59; Status DC Heparin Sodium (Porcine) 49429 unit/Dextrose 512.5 ml @ 0 mls/hr Q0M ONCE IV Last administered on 07/26/16 19:40; Start 07/26/16 at 18:30; Stop 07/26/16 at 18:31; Status DC Amiodarone HCl 150 mg/Dextrose 103 ml @ 618 mls/hr 1X ONCE IV Last administered on 07/26/16 19:25; Start 07/26/16 at 19:15; Stop 07/26/16 at 19:24 ; Status DC Norepinephrine Bitartrate 8 mg/ Sodium Chloride 258 ml @ 1.93 mls/hr CONT PRN IV SEE I/O RECORD Last administered on 08/03/16 00:18; Start 07/26/16 at 19:15 Amiodarone HCl 900 mg/Dextrose 518 ml @ 0 mls/hr CONT PRN IV PER PROTOCOL; Start 07/26/16 at 19:15; Stop 07/27/16 at 12:11; Status DC Milrinone Lactate/ Dextrose 100 ml @ 0 mls/hr CONT PRN IV SEE I/O RECORD Last administered on 07/26/16 20:03; Start 07/26/16 at 19:45; Stop 07/29/16 at 13:51 ; Status DC Calcium Chloride/ Sodium Chloride (Iv Sodium Chloride 0.9% 100ml) 120 ml @ 240 mls/hr 1X ONCE IV Last administered on 07/26/16 21:04; Start 07/26/16 at 21: 30; Stop 07/26/16 at 21:59; Status DC Digoxin 500 mcg 500 mcg 1X ONCE IV Last administered on 07/26/16 21:55; Start 07/26/16 at 21:45; Stop 07/26/16 at 21:46; Status DC Cefazolin Sodium/ Sodium Chloride (Ancef/Iv Sodium Chloride 0.9% 500ml Bag) 500 ml @ 500 mls/hr 1X PERIOP ONCE IRR Last administered on 07/27/16 14:37; Start 07/27/16 at 10:00; Stop 07/27/16 at 10:59; Status DC Vancomycin HCl (Vanco) 10 gm 1X ONCE CEMENT Last administered on 07/27/16 14: 37; Start 07/27/16 at 12:30; Stop 07/27/16 at 12:31; Status DC Rocuronium [place] (Zemuron) 100 mg STK-MED ONCE .ROUTE ; Start 07/27/16 at 12: 32; Stop 07/27/16 at 12:33; Status DC Lorazepam (Ativan) 2 mg STK-MED ONCE .ROUTE ; Start 07/27/16 at 14:13; Stop 04/02 at 14:14; Status DC Phenylephrine HCl 1 mg 1 mg STK-MED ONCE IV ; Start 07/27/16 at 14:18; Stop 04/02 at 14:19; Status DC Albumin Human (Plasmanate) 250 ml @ 62.5 mls/hr 1X ONCE IV Last administered on 07/27/16 17:52; Start 07/27/16 at 17:15; Stop 07/27/16 at 21:14; Status DC Sodium Bicarbonate 50 meq STK-MED ONCE .ROUTE ; Start 07/27/16 at 17:39; Stop at 17:40; Status DC Sodium Bicarbonate 50 meq 1X ONCE IV Last administered on 07/27/16 17:51; Start 07/27/16 at 18:00; Stop 07/27/16 at 18:01; Status DC Sodium Bicarbonate 50 meq 1X ONCE IV Last administered on 07/27/16 17:52; Start 07/27/16 at 18:00; Stop 07/27/16 at 18:01; Status DC Fentanyl Citrate (Fentanyl 2ml Vial) 25 mcg PRN Q5MIN PRN IV MILD PAIN; Start 07/28/16 at 07:00; Stop 07/29/16 at 06:59; Status DC Fentanyl Citrate (Fentanyl 2ml Vial) 50 mcg PRN Q5MIN PRN IV MODERATE PAIN; Start 07/28/16 at 07:00; Stop 07/29/16 at 06:59; Status DC Morphine Sulfate 1 mg 1 mg PRN Q10MIN PRN IV SEVERE PAIN; Start 07/28/16 at 07: 00; Stop 07/29/16 at 06:59; Status DC Lactated Ringer's (Iv Lactated Ringers) 1,000 ml @ 30 mls/hr Q24H IV Last administered on 07/28/16 06:49; Start 07/28/16 at 06:49; Stop 07/28/16 at 18:48 ; Status DC Lidocaine HCl 2 ml PRN 1X PRN ID PRIOR TO IV START; Start 07/28/16 at 07:00; Stop 07/29/16 at 06:59; Status DC Hydromorphone HCl (Dilaudid) 0.5 mg PRN Q10MIN PRN IV SEV PAIN, Second choice; Start 07/28/16 at 07:00; Stop 07/29/16 at 06:59; Status DC Rocuronium [place] 50 mg 50 mg STK-MED ONCE .ROUTE ; Start 07/28/16 at 07:27; Stop 07/28/16 at 07:28; Status DC Cefazolin Sodium/ Sodium Chloride (Ancef/Iv Sodium Chloride 0.9% 500ml Bag) 500 ml @ 500 mls/hr 1X PERIOP ONCE IRR Last administered on 07/28/16 09:25; Start 07/28/16 at 08:00; Stop 07/28/16 at 08:59; Status DC Cellulose 1 each STK-MED ONCE .ROUTE ; Start 07/28/16 at 07:42; Stop 07/28/16 at 07:43; Status DC Bupivacaine HCl/ Epinephrine Bitart 50 ml 50 ml STK-MED ONCE .ROUTE ; Start at 07:42; Stop 07/28/16 at 07:43; Status DC Heparin Sodium (Porcine)/Sodium Chloride (Heparin Sodium/ Iv Sodium Chloride 0.9 % 500ml Bag) 505 ml @ 505 mls/hr 1X PERIOP ONCE IRR Last administered on 07/28t 10:19; Start 07/28/16 at 08:15; Stop 07/28/16 at 09:14; Status DC Lorazepam 2 mg 2 mg STK-MED ONCE .ROUTE ; Start 07/28/16 at 08:29; Stop at 08:30; Status DC Magnesium Sulfate/ Dextrose (Magnesium Sulfate PREMIX 1GM) 100 ml @ 100 mls/hr 1X ONCE IV Last administered on 07/28/16 13:09; Start 07/28/16 at 09:00; Stop 07/28/16 at 09:59; Status DC Vasopressin (Vasostrict) 20 unit STK-MED ONCE .ROUTE ; Start 07/28/16 at 09:03; Stop 07/28/16 at 09:04; Status DC Epinephrine HCl (Epinephrine Syringe) 1 mg STK-MED ONCE .ROUTE ; Start 07/28/16 at 09:09; Stop 07/28/16 at 09:10; Status DC Calcium Chloride 1,000 mg STK-MED ONCE IV ; Start 07/28/16 at 09:09; Stop at 09:10; Status DC Phenylephrine HCl 1 mg STK-MED ONCE IV ; Start 07/28/16 at 09:54; Stop 07/28/16 at 09:55; Status DC Sevoflurane 60 ml 60 ml STK-MED ONCE IH ; Start 07/28/16 at 09:54; Stop at 09:55; Status DC Epinephrine HCl/ Sodium Chloride (Adrenalin/Iv Sodium Chloride 0.9% 250ml) 254 ml @ 3.81 mls/hr 1X ONCE IV ; Start 07/28/16 at 10:00; Stop 07/29/16 at 19:10 ; Status DC Heparin Sodium (Porcine) 33613 unit 10,000 unit STK-MED ONCE .ROUTE ; Start at 09:57; Stop 07/28/16 at 09:58; Status DC Albumin Human (Plasmanate) 500 ml @ As Directed STK-MED ONCE IV ; Start at 09:57; Stop 07/28/16 at 09:58; Status DC Iohexol 100 ml 100 ml STK-MED ONCE .ROUTE ; Start 07/28/16 at 10:39; Stop at 10:40; Status DC Heparin Sodium/ Sodium Chloride 500 ml @ As Directed STK-MED ONCE .ROUTE ; Start 07/28/16 at 10:39; Stop 07/28/16 at 10:40; Status DC Iohexol 100 ml 100 ml STK-MED ONCE .ROUTE ; Start 07/28/16 at 10:43; Stop at 10:44; Status DC Heparin Sodium/ Sodium Chloride 500 ml @ As Directed STK-MED ONCE .ROUTE ; Start 07/28/16 at 11:21; Stop 07/28/16 at 11:22; Status DC Albuterol Sulfate (Ventolin Neb Soln) 2.5 mg RTQID NEB Last administered on 08:46; Start 07/28/16 at 12:00; Stop 07/30/16 at 17:05; Status DC Furosemide (Lasix) 40 mg 1X ONCE IVP Last administered on 07/28/16 13:16; Start 07/28/16 at 13:15; Stop 07/28/16 at 13:16; Status DC Furosemide (Lasix) 40 mg 1X ONCE IVP Last administered on 07/28/16 13:19; Start 07/28/16 at 14:00; Stop 07/28/16 at 14:01; Status DC Heparin Sodium/ Sodium Chloride 1000 unit 1,000 unit CONT PRN IV ART LINE FLUSH Last administered on 08/02/16 06:47; Start 07/28/16 at 14:45 Albumin Human 250 ml @ 62.5 mls/hr PRN Q1HR PRN IV SEE COMMENTS Last administered on 08/02/16 16:12; Start 07/28/16 at 15:15 Furosemide 100 mg/ Sodium Chloride 100 ml @ 5 mls/hr CONT PRN IV SEE I/O RECORD Last administered on 07/30/16 09:50; Start 07/28/16 at 15:30; Stop 07/31 at 13:31; Status DC Potassium Chloride 50 ml @ 50 mls/hr Q1H IV Last administered on 07/28/16 19: 39; Start 07/28/16 at 18:30; Stop 07/28/16 at 20:29; Status DC Potassium Chloride (KCl Premix 20meq) 50 ml @ 50 mls/hr Q1H IV Last administered on 07/29/16 09:36; Start 07/29/16 at 07:00; Stop 07/29/16 at 08:59 ; Status DC Lorazepam (Ativan) 2 mg STK-MED ONCE .ROUTE ; Start 07/28/16 at 08:30; Stop at 08:16; Status DC Aspirin (Arti Aspirin) 325 mg DAILYWBKFT PO Last administered on 08/03/16 09: 13; Start 07/30/16 at 08:00 Docusate Sodium 100 mg 100 mg DAILY PO Last administered on 07/31/16 07:59; Start 07/30/16 at 09:00; Stop 07/31/16 at 11:00; Status DC Dobutamine HCl/ Dextrose 250 ml @ 12.1 mls/hr CONT PRN IV PER PROTOCOL Last administered on 08/02/16 18:03; Start 07/29/16 at 13:30 Potassium Chloride 50 ml @ 50 mls/hr Q1H IV Last administered on 07/29/16 22: 39; Start 07/29/16 at 20:00; Stop 07/29/16 at 22:59; Status DC Potassium Chloride (KCl Premix 20meq) 50 ml @ 50 mls/hr Q1H IV Last administered on 07/30/16 09:19; Start 07/30/16 at 07:00; Stop 07/30/16 at 08:59 ; Status DC Ipratropium [place] (Atrovent) 0.5 mg RTQID NEB Last administered on 08/03/16 07:57; Start 07/30/16 at 12:30 Digoxin 500 mcg 500 mcg 1X ONCE IV Last administered on 07/30/16 13:01; Start 07/30/16 at 12:15; Stop 07/30/16 at 12:19; Status DC Dexmedetomidine HCl/Sodium Chloride (Precedex/Iv Sodium Chloride 0.9% 50ml) 50 ml @ 0 mls/hr CONT PRN IV PER PROTOCOL Last administered on 08/03/16 07:23; Start 07/30/16 at 13:30 Atropine Sulfate 0.5 mg PRN Q5MIN PRN IV SEE COMMENTS; Start 07/30/16 at 13:30 Amiodarone HCl (Cordarone) 400 mg ONCE ONCE PO Last administered on 07/30/16 15:01; Start 07/30/16 at 13:30; Stop 07/30/16 at 13:46; Status DC Amiodarone HCl (Cordarone) 400 mg BID PO Last administered on 08/03/16 09:14; Start 07/30/16 at 21:00 Digoxin 125 mcg 125 mcg DAILY IV Last administered on 08/02/16 08:56; Start at 09:00 Albumin Human (Albuminar) 50 ml @ 50 mls/hr 1X ONCE IV Last administered on 16:26; Start 07/30/16 at 16:30; Stop 07/30/16 at 17:29; Status DC Ibuprofen (Motrin) 200 mg PRN Q6HRS PRN PO fever; Start 07/30/16 at 19:45; Stop 08/01/16 at 12:22; Status DC Metoprolol Tartrate (Lopressor) 2.5 mg 1X ONCE IVP Last administered on 20:23; Start 07/30/16 at 20:30; Stop 07/30/16 at 20:31; Status DC Metoprolol Tartrate 5 mg 5 mg PRN Q2HR PRN IVP HYPERTENSION Last administered on 07/31/16 08:04; Start 07/30/16 at 22:30 Potassium Chloride (KCl Premix 20meq) 50 ml @ 50 mls/hr Q1H IV Last administered on 07/31/16 09:04; Start 07/31/16 at 07:00; Stop 07/31/16 at 08:59 ; Status DC Metoprolol Tartrate (Lopressor) 12.5 mg BID NG Last administered on 08/02/16 08:55; Start 07/31/16 at 10:00 Docusate Sodium (Colace Solution) 100 mg PRN DAILY PRN PO constipation Last administered on 08/01/16 08:40; Start 07/31/16 at 11:00 Hydralazine HCl (Apresoline) 10 mg PRN Q2HRS PRN IVP ELEVATED BP, SEE COMMENTS Last administered on 08/01/16 16:35; Start 07/31/16 at 13:30 Fentanyl Citrate (Fentanyl 2ml Vial) 50 mcg PRN Q2HR PRN IV PAIN Last administered on 08/02/16 12:57; Start 07/31/16 at 13:45 Furosemide (Lasix) 40 mg TID IVP Last administered on 08/02/16 05:49; Start at 14:00; Stop 08/02/16 at 15:33; Status DC Alteplase, Recombinant (Cathflo) 2 mg 1X ONCE INT CAT Last administered on 23:34; Start 07/31/16 at 23:15; Stop 07/31/16 at 23:16; Status DC Haloperidol Lactate (Haldol) 5 mg PRN Q6HRS PRN IVP MODERATE AGITATION Last administered on 08/01/16 21:21; Start 08/01/16 at 21:00 Haloperidol Lactate 10 mg 10 mg PRN Q6HRS PRN IVP SEVERE AGITATION Last administered on 08/01/16 23:59; Start 08/01/16 at 23:45 Propofol 100 ml @ 0 mls/hr CONT PRN IV SEE I/O RECORD Last administered on 08/02 11:43; Start 08/02/16 at 02:45 Piperacillin Sod/ Tazobactam Sod/ Sodium Chloride (Zosyn/Iv Sodium Chloride 0.9 % 50ml) 50 ml @ 100 mls/hr Q6HRS IV Last administered on 08/02/16 13:17; Start 08/02/16 at 12:00; Stop 08/02/16 at 15:43; Status DC Vancomycin HCl 1 each 1 each PRN DAILY PRN MC SEE COMMENTS Last administered on 08/02/16 13:20; Start 08/02/16 at 11:45 Vancomycin HCl 2 gm/Sodium Chloride 500 ml @ 250 mls/hr 1X ONCE IV Last administered on 08/02/16 11:52; Start 08/02/16 at 12:00; Stop 08/02/16 at 13:59 ; Status DC Sodium Chloride (Iv Sodium Chloride 0.9% 500ml Bag) 500 ml @ 500 mls/hr 1X ONCE IV Last administered on 08/02/16 12:39; Start 08/02/16 at 12:45; Stop at 13:44; Status DC Vecuronium [place] (Norcuron Bolus) 10 mg 1X STAT IV Last administered on 08/02 13:34; Start 08/02/16 at 13:17; Stop 08/02/16 at 13:23; Status DC Vancomycin HCl 1 each 1 each 1X ONCE MC ; Start 08/03/16 at 23:30; Stop at 23:31 Vancomycin HCl 1.25 gm/Sodium Chloride 250 ml @ 167 mls/hr Q12H IV Last administered on 08/03/16 00:33; Start 08/03/16 at 00:00 Fentanyl Citrate (Fentanyl 600 Mcg/30 ml TURRET LATHE SET UP OPERATOR) 30 ml @ 0 mls/hr CONT PRN PRN IV PROTOCOL Last administered on 08/03/16 00:19; Start 08/02/16 at 13:30 Naloxone HCl 0.4 mg 0.4 mg PRN Q2MIN PRN IV SEE INSTRUCTIONS; Start 08/02/16 at 13:30 Micafungin Sodium 100 mg/Dextrose 100 ml @ 100 mls/hr Q24H IV Last administered on 08/02/16 16:58; Start 08/02/16 at 17:00 Lactated Ringer's 1,000 ml @ 1,000 mls/hr 1X ONCE IV Last administered on 15:45; Start 08/02/16 at 15:45; Stop 08/02/16 at 16:44; Status DC Piperacillin Sod/ Tazobactam Sod 4.5 gm/Sodium Chloride 100 ml @ 200 mls/hr Q6HRS IV Last administered on 08/03/16 06:18; Start 08/02/16 at 18:00 Albumin Human (Plasmanate) 500 ml @ 125 mls/hr 1X ONCE IV Last administered on 08/02/16 20:37; Start 08/02/16 at 20:30; Stop 08/03/16 at 00:29; Status DC Furosemide (Lasix) 40 mg 1X ONCE IVP Last administered on 08/03/16 00:16; Start 08/02/16 at 20:30; Stop 08/02/16 at 20:31; Status DC Acetaminophen (Tylenol) 650 mg 1X ONCE NG Last administered on 08/03/16 02:03 ; Start 08/03/16 at 02:15; Stop 08/03/16 at 02:16; Status DC Ketorolac Tromethamine 15 mg 15 mg 1X ONCE IV Last administered on 08/03/16 02:03; Start 08/03/16 at 02:15; Stop 08/03/16 at 02:16; Status DC Lactated Ringer's (Iv Lactated Ringers) 500 ml @ 500 mls/hr 1X ONCE IV ; Start 08/03/16 at 10:15; Stop 08/03/16 at 11:14 Sodium Bicarbonate 50 meq 1X ONCE IV ; Start 08/03/16 at 10:15; Stop 08/03/16 at 10:20; Status DC Active Scripts Active Reported Amlodipine Besylate 5 Mg Tablet 5 Mg PO DAILY Pradaxa (Dabigatran Etexilate Mesylate) 150 Mg Capsule 1 Cap PO BID Metoprolol Succinate ( Xl ) (Metoprolol Succinate) 100 Mg Tab.er.24h 1 Tab PO DAILY Vitals/I & O Vital Sign - Last 24 Hours 08/02/16 08/02/16 08/02/16 08/02/16 11:00 11:50 11:55 12:00 Pulse 118 150 Resp 24 24 B/P 102/50 78/42 Pulse Ox 89 93 92 O2 Delivery Ventilator Ventilator Ventilator Mechanical Ventilator 08/02/16 08/02/16 08/02/16 08/02/16 12:00 12:30 12:57 13:00 Pulse 153 152 153 Resp 24 27 28 B/P 124/63 115/58 111/58 Pulse Ox 95 92 92 90 O2 Delivery Ventilator Ventilator Ventilator Ventilator 08/02/16 08/02/16 08/02/16 08/02/16 13:27 13:55 14:00 14:05 Temp 99.4 99.4 Pulse 150 Resp 16 16 B/P 97/51 Pulse Ox 92 92 91 95 O2 Delivery Ventilator Ventilator Ventilator Ventilator 08/02/16 08/02/16 08/02/16 08/02/16 14:20 14:25 15:00 15:49 Temp 103.0 103.0 Pulse 150 144 Resp 16 16 16 B/P 88/46 88/47 Pulse Ox 93 92 97 95 O2 Delivery Ventilator Ventilator Ventilator 08/02/16 08/02/16 17 08/02/16 16:00 16:00 17:00 18:00 Temp 102.5 102.4 102.5 102.4 Pulse 144 141 141 Resp 16 17 16 B/P 94/47 103/49 100/50 Pulse Ox 94 94 94 O2 Delivery Ventilator Mechanical Ventilator Ventilator Ventilator 08/02/1617 17 08/02/16 19:00 19:50 20:00 20:00 Temp 102.5 102.5 Pulse 142 142 Resp 16 17 B/P 102/50 108/50 Pulse Ox 95 95 95 O2 Delivery Ventilator Ventilator Ventilator Mechanical Ventilator 08/02/1617 08/02/16 08/02/16 21:00 21:19 22:00 22:15 Temp 101.1 101.1 Pulse 140 140 142 Resp 17 17 B/P 92/46 94/49 102/50 Pulse Ox 92 94 94 O2 Delivery Ventilator Ventilator Ventilator 08/02/16 08/03/16 08/03/16 08/03/16 23:00 00:00 00:00 00:05 Pulse 142 142 Resp 16 17 B/P 98/48 94/48 Pulse Ox 95 95 100 O2 Delivery Ventilator Mechanical Ventilator Ventilator Ventilator 08/03/16 08/03/16 08/03/16 08/03/16 01:00 01:25 02:00 03:00 Temp 103.2 104.2 104.8 103.2 104.2 104.8 Pulse 142 142 140 Resp 18 17 17 B/P 88/50 118/58 102/56 Pulse Ox 95 93 94 97 O2 Delivery Ventilator Ventilator Ventilator Ventilator 08/03/16 08/03/16 08/03/16 08/03/16 03:30 04:00 04:00 05:00 Temp 102.7 98.8 102.7 98.8 Pulse 136 132 Resp 17 16 B/P 102/58 112/64 Pulse Ox 99 99 99 O2 Delivery Ventilator Ventilator Mechanical Ventilator Ventilator 08/03/16 08/03/16 08/03/16 08/03/16 05:15 06:05 07:00 07:50 Temp 97.7 97.7 97.7 97.7 Pulse 130 90 Resp 17 17 B/P 128/70 120/64 Pulse Ox 98 98 98 97 O2 Delivery Ventilator Ventilator Ventilator Ventilator 08/03/16 08/03/16 08/03/16 08/03/16 08:00 09:00 09:14 09:37 Temp 97.7 97.7 97.7 97.7 Pulse 90 90 93 Resp B/P 116/58 142/68 111/52 Pulse Ox 97 95 O2 Delivery Ventilator Ventilator Mechanical Ventilator 08/03/16 08/03/16 10:00 10:09 Temp 100.4 100.4 Pulse 92 Resp B/P 108/52 Pulse Ox 98 97 O2 Delivery Ventilator Ventilator Intake and Output 08/02/16 08/02/16 08/03/16 15:00 23:00 07:00 Intake Total 820 ml 2321.5 ml 1356 ml Output Total 410 ml 215 ml 175 ml Balance 410 ml 2106.5 ml 1181 ml ANA LAURA OLIVEIRA MD Aug 03, 2016 10:47
[2016-08-03] MEDS ORDERED: CALCIUM GLUCONATE 1,000 MG/10 ML VIAL. IVP ONE (12:15)
--- NOTE | 2016-08-03 12:25 | PDOC ---
PROGRESS NOTES Chief Complaint Chief Complaint Chest pain STEMI 1. STEMI: 3-vessel dz by cardiac cath (07/20/16). s/p CABG on 07/25/2016 : FLETCHER to LAD; SVG to LAD; SVG to OM1 and SVG to RPDA. VF arrest after chest closed; reopened and placed back on bypass then converted to LVAD. chest closed yesterday 2. cardiogenic shock 3. PAD 4. Cardiomyopathy: EF 20% 5. Afib: on amiodarone and dig and metoprolol 6. HTN 7. toxic encephalopathy with 2 8. HLD: on statin, currently on hold 9. DM: on insulin gtt 10: Nutrition: cautious NG feed today 11. liver shock with 2 12. MILD ICH, no intervention 13. possible septic shock poor prognosis, cont current meds fu with CT, card, pulm, neurosx on OGT feeding, need to decrease Na in the feeding fluid dvt, gi ppx talked to at bedside, on levaphed and vasopressin since 08/02, keep MAP >65 lasix dced as per CT ON iv abx as per CT, fu ucx, bcx head CT, chest/abd/pelvis CT pending check cdiff may need trach, PEG this week CC time 40 min History of Present Illness History of Present Illness intubated, off sedation 3 days, spontaneously open eyes, not follow commands, back to sedation on 08/02 tachycardia, afib, on dobutamine still low bp , on levaphod and vaso since 08/02 on OGT feeding EF 20% Head CT 08/01 showed mild ICH higher WBC fever, hypotension 08/02 diarrhea higher Cr Vitals Vitals Vital Signs Date Time Temp Pulse Resp B/P Pulse Ox O2 Delivery O2 Flow Rate FiO2 08/03/16 11:37 97 Ventilator 08/03/16 10:00 100.4 92 17 108/52 100.4 Physical Exam Physical Exam GENERAL: Intubated, 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 HEENT: Pupils reactive, scleral icterus improving NECK: Supple LUNGS: Clear HEART: S1S2 CHEST: sternotomy: D/C/I ABD: Soft, NT EXT: edema improved, warm well perfused, pedal pulses palpable [employer]: Intubated,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, extremities flaccid SKIN: No rash IV: ok General: Other (sedated, intubated, moving head) Heart: Other (tachy, irregular) Lungs: Clear Abdomen: Soft, Other (distended) Extremities: No edema, Other (+ edema x4) Skin: No rashes Labs LABS Laboratory Tests Test 08/03/16 07:30 08/03/16 07:50 White Blood Count 11.9x10^3/uL (4.0-11.0) Red Blood Count 2.32x10^6/uL (4.30-5.70) Hemoglobin 7.5g/dL (13.0-17.5) Hematocrit 23.0% (39.0-53.0) Mean Corpuscular Volume 99fL (79-100) Mean Corpuscular Hemoglobin 32pg (25-35) Mean Corpuscular Hemoglobin Concent 33g/dL (31-37) Red Cell Distribution Width 17.7% (11.5-14.5) Platelet Count 90x10^3/uL (140-400) Neutrophils (%) (Auto) 89% (31-73) Lymphocytes (%) (Auto) 7% (24-48) Monocytes (%) (Auto) 4% (0-9) Eosinophils (%) (Auto) 0% (0-3) Basophils (%) (Auto) 0% (0-3) Neutrophils # (Auto) 10.6x10^3uL (1.8-7.7) Lymphocytes # (Auto) 0.8x10^3/uL (1.0-4.8) Monocytes # (Auto) 0.5x10^3/uL (0.0-1.1) Eosinophils # (Auto) 0.0x10^3/uL (0.0-0.7) Basophils # (Auto) 0.0x10^3/uL (0.0-0.2) Sodium Level 149mmol/L (136-145) Potassium Level 5.3mmol/L (3.5-5.1) Chloride Level 112mmol/L (98-107) Carbon Dioxide Level 25mmol/L (21-32) Anion Gap 12 (6-14) Blood Urea Nitrogen 82mg/dL (8-26) Creatinine 3.1mg/dL (0.7-1.3) Estimated GFR (Cockcroft-Gault) 20.9 BUN/Creatinine Ratio 26 (6-20) Glucose Level 174mg/dL (70-99) Calcium Level 6.3mg/dL (8.5-10.1) Magnesium Level 2.7mg/dL (1.8-2.4) Total Bilirubin 7.1mg/dL (0.2-1.0) Aspartate Amino Transf (AST/SGOT) 50U/L (15-37) Alanine Aminotransferase (ALT/SGPT) 127U/L (16-63) Alkaline Phosphatase 83U/L (46-116) Total Protein 5.2g/dL (6.4-8.2) Albumin 2.2g/dL (3.4-5.0) Albumin/Globulin Ratio 0.7 (1.0-1.7) O2 Saturation 95% (92-99) Arterial Blood pH 7.30 (7.35-7.45) Arterial Blood pCO2 at Patient Temp 40mmHg (35-46) Arterial Blood pO2 at Patient Temp 85mmHg (75-108) Arterial Blood HCO3 19mmol/L (21-28) Arterial Blood Base Excess -7mmol/L (-3-3) FiO2 50 Review of Systems Review of Systems no chills Assessment and Plan Assessmemt and Plan Problems Medical Problems: (1) CAD (coronary artery disease), [place] coronary artery Status: Acute (2) Chest pain Status: Acute (3) STEMI (ST elevation myocardial infarction) Status: Acute Problems: Comment Review of Relevant I have reviewed the following items leonidas (where applicable) has been applied. Labs Laboratory Tests Test 08/02/16 00:01 08/02/16 05:50 08/02/16 07:45 08/03/16 07:30 Glucose (Fingerstick) 137mg/dL (70-99) White Blood Count 16.1x10^3/uL (4.0-11.0) 11.9x10^3/uL (4.0-11.0) Red Blood Count 2.90x10^6/uL (4.30-5.70) 2.32x10^6/uL (4.30-5.70) Hemoglobin 9.0g/dL (13.0-17.5) 7.5g/dL (13.0-17.5) Hematocrit 28.5% (39.0-53.0) 23.0% (39.0-53.0) Mean Corpuscular Volume 98fL (79-100) 99fL (79-100) Mean Corpuscular Hemoglobin 31pg (25-35) 32pg (25-35) Mean Corpuscular Hemoglobin Concent 32g/dL (31-37) 33g/dL (31-37) Red Cell Distribution Width 15.8% (11.5-14.5) 17.7% (11.5-14.5) Platelet Count 110x10^3/uL (140-400) 90x10^3/uL (140-400) Neutrophils (%) (Auto) 92% (31-73) 89% (31-73) Lymphocytes (%) (Auto) 4% (24-48) 7% (24-48) Monocytes (%) (Auto) 4% (0-9) 4% (0-9) Eosinophils (%) (Auto) 0% (0-3) 0% (0-3) Basophils (%) (Auto) 0% (0-3) 0% (0-3) Neutrophils # (Auto) 14.8x10^3uL (1.8-7.7) 10.6x10^3uL (1.8-7.7) Lymphocytes # (Auto) 0.6x10^3/uL (1.0-4.8) 0.8x10^3/uL (1.0-4.8) Monocytes # (Auto) 0.6x10^3/uL (0.0-1.1) 0.5x10^3/uL (0.0-1.1) Eosinophils # (Auto) 0.0x10^3/uL (0.0-0.7) 0.0x10^3/uL (0.0-0.7) Basophils # (Auto) 0.0x10^3/uL (0.0-0.2) 0.0x10^3/uL (0.0-0.2) Sodium Level 150mmol/L (136-145) 149mmol/L (136-145) Potassium Level 4.3mmol/L (3.5-5.1) 5.3mmol/L (3.5-5.1) Chloride Level 114mmol/L (98-107) 112mmol/L (98-107) Carbon Dioxide Level 27mmol/L (21-32) 25mmol/L (21-32) Anion Gap 9 (6-14) 12 (6-14) Blood Urea Nitrogen 39mg/dL (8-26) 82mg/dL (8-26) Creatinine 1.2mg/dL (0.7-1.3) 3.1mg/dL (0.7-1.3) Estimated GFR (Cockcroft-Gault) 62.4 20.9 BUN/Creatinine Ratio 33 (6-20) 26 (6-20) Glucose Level 152mg/dL (70-99) 174mg/dL (70-99) Calcium Level 7.6mg/dL (8.5-10.1) 6.3mg/dL (8.5-10.1) Magnesium Level 2.8mg/dL (1.8-2.4) 2.7mg/dL (1.8-2.4) Total Bilirubin 5.8mg/dL (0.2-1.0) 7.1mg/dL (0.2-1.0) Aspartate Amino Transf (AST/SGOT) 91U/L (15-37) 50U/L (15-37) Alanine Aminotransferase (ALT/SGPT) 311U/L (16-63) 127U/L (16-63) Alkaline Phosphatase 209U/L (46-116) 83U/L (46-116) Total Protein 5.3g/dL (6.4-8.2) 5.2g/dL (6.4-8.2) Albumin 2.4g/dL (3.4-5.0) 2.2g/dL (3.4-5.0) Albumin/Globulin Ratio 0.8 (1.0-1.7) 0.7 (1.0-1.7) O2 Saturation 88% (92-99) Arterial Blood pH 7.43 (7.35-7.45) Arterial Blood pCO2 at Patient Temp 43mmHg (35-46) Arterial Blood pO2 at Patient Temp 57mmHg (75-108) Arterial Blood HCO3 28mmol/L (21-28) Arterial Blood Base Excess 3mmol/L (-3-3) FiO2 60 Test 4/19/17 07:50 O2 Saturation 95% (92-99) Arterial Blood pH 7.30 (7.35-7.45) Arterial Blood pCO2 at Patient Temp 40mmHg (35-46) Arterial Blood pO2 at Patient Temp 85mmHg (75-108) Arterial Blood HCO3 19mmol/L (21-28) Arterial Blood Base Excess -7mmol/L (-3-3) FiO2 50 Laboratory Tests Test 08/03/16 07:30 08/03/16 07:50 White Blood Count 11.9x10^3/uL (4.0-11.0) Red Blood Count 2.32x10^6/uL (4.30-5.70) Hemoglobin 7.5g/dL (13.0-17.5) Hematocrit 23.0% (39.0-53.0) Mean Corpuscular Volume 99fL (79-100) Mean Corpuscular Hemoglobin 32pg (25-35) Mean Corpuscular Hemoglobin Concent 33g/dL (31-37) Red Cell Distribution Width 17.7% (11.5-14.5) Platelet Count 90x10^3/uL (140-400) Neutrophils (%) (Auto) 89% (31-73) Lymphocytes (%) (Auto) 7% (24-48) Monocytes (%) (Auto) 4% (0-9) Eosinophils (%) (Auto) 0% (0-3) Basophils (%) (Auto) 0% (0-3) Neutrophils # (Auto) 10.6x10^3uL (1.8-7.7) Lymphocytes # (Auto) 0.8x10^3/uL (1.0-4.8) Monocytes # (Auto) 0.5x10^3/uL (0.0-1.1) Eosinophils # (Auto) 0.0x10^3/uL (0.0-0.7) Basophils # (Auto) 0.0x10^3/uL (0.0-0.2) Sodium Level 149mmol/L (136-145) Potassium Level 5.3mmol/L (3.5-5.1) Chloride Level 112mmol/L (98-107) Carbon Dioxide Level 25mmol/L (21-32) Anion Gap 12 (6-14) Blood Urea Nitrogen 82mg/dL (8-26) Creatinine 3.1mg/dL (0.7-1.3) Estimated GFR (Cockcroft-Gault) 20.9 BUN/Creatinine Ratio 26 (6-20) Glucose Level 174mg/dL (70-99) Calcium Level 6.3mg/dL (8.5-10.1) Magnesium Level 2.7mg/dL (1.8-2.4) Total Bilirubin 7.1mg/dL (0.2-1.0) Aspartate Amino Transf (AST/SGOT) 50U/L (15-37) Alanine Aminotransferase (ALT/SGPT) 127U/L (16-63) Alkaline Phosphatase 83U/L (46-116) Total Protein 5.2g/dL (6.4-8.2) Albumin 2.2g/dL (3.4-5.0) Albumin/Globulin Ratio 0.7 (1.0-1.7) O2 Saturation 95% (92-99) Arterial Blood pH 7.30 (7.35-7.45) Arterial Blood pCO2 at Patient Temp 40mmHg (35-46) Arterial Blood pO2 at Patient Temp 85mmHg (75-108) Arterial Blood HCO3 19mmol/L (21-28) Arterial Blood Base Excess -7mmol/L (-3-3) FiO2 50 Microbiology 07/30/16 Blood Culture - Preliminary, Resulted NO GROWTH AFTER 3 DAYS 07/31/16 Sputum Culture - Preliminary, Resulted 07/31/16 Sputum Result 1 - Preliminary, Resulted 07/31/16 Gram Stain - Final, Complete Medications Current Medications Nitroglycerin 0.4 mg 0.4 mg PRN Q5MIN PRN SL CP RATING > 1/10; Start 07/20/16 at 09:45; Stop 07/20/16 at 15:05; Status DC Nitroglycerin/ Dextrose (Nitroglycerin Drip) 250 ml @ 3 mls/hr 1X ONCE IV Last administered on 07/20/16t 10:02; Start 07/20/16 at 10:30; Stop 07/23/16 at 21: 49; Status DC Morphine Sulfate 2 mg PRN Q15MIN PRN IV/SQ PAIN GREATER THAN 3/10; Start at 09:45; Stop 07/21/16 at 09:44; Status DC Ondansetron HCl (Zofran) 4 mg PRN Q8HRS PRN IV NAUSEA/VOMITING; Start 07/20/16 at 12:30; Stop 07/20/16 at 13:36; Status DC Morphine Sulfate 2 mg 2 mg PRN Q2HR PRN IV PAIN; Start 07/20/16 at 12:30; Stop 07/21/16 at 12:29; Status DC Heparin Sodium/ Dextrose 500 ml @ 0 mls/hr CONT PRN IV . Last administered on 10:32; Start 07/20/16 at 13:00; Stop 07/21/16 at 14:50; Status DC Metoprolol Tartrate (Lopressor) 5 mg Q6HRS IVP ; Start 07/20/16 at 13:00; Stop at 14:53; Status DC Aspirin (Ecotrin) 325 mg [id number] PO Last administered on 07/21/16 08:11; Start 07/20/16 at 13:00; Stop 07/21/16 at 17:20; Status DC Ondansetron HCl (Zofran) 4 mg PRN Q6HRS PRN IV NAUSEA/VOMITING; Start 07/20/16 at 13:35; Stop 07/26/16 at 11:41; Status DC Acetaminophen (Tylenol) 500 mg PRN Q6HRS PRN PO MILD PAIN / TEMP Last administered on 07/29/16 09:55; Start 07/20/16 at 13:45; Stop 07/29/16 at 13:38 ; Status DC Docusate Sodium (Colace) 100 mg DAILY PO Last administered on 07/29/16 09:54; Start 07/20/16 at 15:00; Stop 07/29/16 at 10:03; Status DC Iohexol 100 ml 100 ml STK-MED ONCE .ROUTE ; Start 07/20/16 at 12:40; Stop at 13:44; Status DC Heparin Sodium/ Sodium Chloride 1,000 ml @ As Directed STK-MED ONCE .ROUTE ; Start 07/20/16 at 12:41; Stop 07/20/16 at 13:44; Status DC Lidocaine HCl 20 ml STK-MED ONCE .ROUTE ; Start 07/20/16 at 12:41; Stop 07/20/16 at 13:44; Status DC Fentanyl Citrate (Fentanyl 2ml Vial) 100 mcg STK-MED ONCE .ROUTE ; Start at 13:42; Stop 07/20/16 at 13:45; Status DC Midazolam HCl (Versed) 2 mg STK-MED ONCE .ROUTE ; Start 07/20/16 at 13:42; Stop 07/20/16 at 13:45; Status DC Heparin Sodium/ Sodium Chloride 1,000 unit 1X ONCE IART Last administered on 14:29; Start 07/20/16 at 14:00; Stop 07/20/16 at 14:01; Status DC Heparin Sodium/ Sodium Chloride 1,000 unit 1X ONCE IART Last administered on 14:29; Start 07/20/16 at 14:00; Stop 07/20/16 at 14:01; Status DC Midazolam HCl (Versed) 2 mg 1X ONCE IV Last administered on 07/20/16 14:28; Start 07/20/16 at 14:00; Stop 07/20/16 at 14:01; Status DC Fentanyl Citrate (Fentanyl 2ml Vial) 100 mcg 1X ONCE IV Last administered on 14:28; Start 07/20/16 at 14:00; Stop 07/20/16 at 14:01; Status DC Iohexol (Omnipaque 300 Mg/ml) 100 ml 1X ONCE IART Last administered on 14:29; Start 07/20/16 at 14:00; Stop 07/20/16 at 14:01; Status DC Lidocaine HCl 20 ml 1X ONCE IJ Last administered on 07/20/16 14:29; Start 07/20 at 14:00; Stop 07/20/16 at 14:01; Status DC Midazolam HCl (Versed) 2 mg STK-MED ONCE .ROUTE ; Start 07/20/16 at 14:15; Stop 07/20/16 at 14:16; Status DC Sodium Chloride 3 ml 3 ml QSHIFT PRN IV AFTER MEDS AND BLOOD DRAWS; Start at 14:45; Stop 07/29/16 at 13:51; Status DC Sodium Chloride (Iv Sodium Chloride 0.9% 1000ml Bag) 1,000 ml @ 60 mls/hr [id number] IV Last administered on 07/20/16 14:44; Start 07/20/16 at 14:44; Stop at 00:43; Status DC Metoprolol Tartrate (Lopressor) 12.5 mg BID PO ; Start 07/20/16 at 21:00; Stop at 21:00; Status DC Lisinopril (Prinivil) 5 mg DAILY PO Last administered on 07/20/16 16:25; Start 07/20/16 at 15:00; Stop 07/20/16 at 17:21; Status DC Atorvastatin Calcium (Lipitor) 20 mg QHS PO Last administered on 07/20/16 20:33 ; Start 07/20/16 at 21:00; Stop 07/21/16 at 08:11; Status DC Nitroglycerin (Nitrostat) 0.4 mg PRN Q5MIN PRN SL CHEST PAIN Last administered on 07/25/16 04:55; Start 07/20/16 at 14:45; Stop 07/26/16 at 11:41; Status DC Hydralazine HCl (Apresoline) 10 mg PRN Q4HRS PRN IVP ELEVATED BP, SEE COMMENTS Last administered on 07/31/16 10:58; Start 07/20/16 at 17:15; Stop 07/31/16 at 13:31; Status DC Metoprolol Tartrate (Lopressor) 50 mg BID PO Last administered on 07/22/16 08: 31; Start 07/20/16 at 21:00; Stop 07/22/16 at 19:03; Status DC Alprazolam (Xanax) 0.25 mg PRN Q8HRS PRN PO ANXIETY / AGITATION Last administered on 07/24/16 21:34; Start 07/20/16 at 17:30; Stop 07/29/16 at 13:38; Status DC Heparin Sodium (Porcine) 2050 unit 2,050 unit PRN Q6HRS PRN IV FOR UFH LEVEL LESS THAN 0.2 Last administered on 07/21/16 04:24; Start 07/20/16 at 19:45; Stop 07/26/16 at 08:55; Status DC Heparin Sodium/ Dextrose 500 ml @ 19.4 mls/hr CONT PRN IV SEE I/O RECORD; Start 07/20/16 at 19:45; Stop 07/21/16 at 16:24; Status DC Heparin Sodium (Porcine) (Heparin Sodium) 2,050 unit PRN Q6HRS PRN IV FOR UFH LEVEL LESS THAN 0.2; Start 07/20/16 at 19:45; Status UNV Atorvastatin Calcium (Lipitor) 40 mg QHS PO Last administered on 08/02/16 21: 18; Start 07/21/16 at 21:00 Iodixanol (Visipaque 320) 200 ml STK-MED ONCE .ROUTE ; Start 07/20/16 at 14:00; Stop 07/21/16 at 08:26; Status DC Zolpidem Tartrate (Ambien) 5 mg PRN QHS PRN PO INSOMNIA, MAY REPEAT IN 1HR; Start 07/21/16 at 15:30; Stop 07/29/16 at 13:38; Status DC Metoprolol Tartrate 25 mg 25 mg 1X ONCE PO ; Start 07/22/16 at 06:00; Stop at 06:02; Status DC Cefazolin Sodium/ Dextrose 50 ml @ 100 mls/hr 1X ONCE IV ; Start 07/22/16 at 06 :00; Stop 07/22/16 at 06:29; Status DC Heparin Sodium/ Dextrose 500 ml @ 0 mls/hr CONT PRN IV SEE I/O RECORD Last administered on 07/24/16 01:40; Start 07/21/16 at 16:30; Stop 07/26/16 at 08:55; Status DC Lidocaine HCl 2 ml 2 ml 1X PRN PRN ID IV START; Start 07/25/16 at 06:00; Stop 07/26/16 at 05:59; Status Cancel Lactated Ringer's (Iv Lactated Ringers) 1,000 ml @ 0 mls/hr Q0M IV Last administered on 07/25/16 07:30; Start 07/25/16 at 06:00; Stop 07/25/16 at 17:59 ; Status DC Fentanyl Citrate (Fentanyl 2ml Vial) 25 mcg PRN Q5MIN PRN IV Acute Pain; Start 07/22/16 at 09:15; Stop 07/23/16 at 09:14; Status DC Morphine Sulfate 2 mg PRN Q10MIN PRN IV Mild Pain; Start 07/22/16 at 09:15; Stop 07/23/16 at 09:14; Status DC Hydromorphone HCl (Dilaudid) 0.4 mg PRN Q10MIN PRN IV Moderate to severe pain; Start 07/22/16 at 09:15; Stop 07/23/16 at 09:14; Status DC Ondansetron HCl (Zofran) 4 mg PRN Q6HRS PRN IV Nausea, 1st Choice; Start at 09:15; Stop 07/23/16 at 09:14; Status DC Prochlorperazine Edisylate (Compazine) 5 mg PRN Q6HRS PRN IV Nausea/Vomiting, 2nd Choice; Start 07/22/16 at 09:15; Stop 07/23/16 at 09:14; Status DC Ondansetron HCl (Zofran) 4 mg PRN Q6HRS PRN IV NAUSEA/VOMITING; Start 07/25/16 at 07:00; Stop 07/26/16 at 06:59; Status DC Fentanyl Citrate (Fentanyl 2ml Vial) 25 mcg PRN Q5MIN PRN IV MILD PAIN; Start 07/25/16 at 07:00; Stop 07/26/16 at 06:59; Status DC Fentanyl Citrate (Fentanyl 2ml Vial) 50 mcg PRN Q5MIN PRN IV MODERATE PAIN; Start 07/25/16 at 07:00; Stop 07/26/16 at 06:59; Status DC Morphine Sulfate 1 mg 1 mg PRN Q10MIN PRN IV SEVERE PAIN; Start 07/25/16 at 07: 00; Stop 07/25/16 at 20:28; Status DC Lactated Ringer's (Iv Lactated Ringers) 1,000 ml @ 0 mls/hr Q0M IV ; Start 01/31 at 07:00; Stop 07/25/16 at 18:59; Status Cancel Lidocaine HCl 2 ml PRN 1X PRN ID PRIOR TO IV START Last administered on t 07:16; Start 07/25/16 at 07:00; Stop 07/26/16 at 06:59; Status DC Hydromorphone HCl (Dilaudid) 0.5 mg PRN Q10MIN PRN IV SEV PAIN, Second choice; Start 07/25/16 at 07:00; Stop 07/26/16 at 06:59; Status DC Prochlorperazine Edisylate 5 mg 5 mg PACU PRN PRN IV NAUSEA, MRX1; Start at 07:00; Stop 07/26/16 at 06:59; Status DC Cefazolin Sodium/ Dextrose (Ancef 2gm Premix) 50 ml @ 100 mls/hr 1X ONCE IV Last administered on 07/25/16 08:12; Start 07/25/16 at 06:00; Stop 07/25/16 at 06:29; Status DC Metoprolol Tartrate (Lopressor) 25 mg 1X ONCE PO ; Start 07/25/16 at 06:00; Stop 07/25/16 at 06:00; Status DC Metoprolol Tartrate (Lopressor) 2.5 mg 1X ONCE IVP Last administered on 16:30; Start 07/22/16 at 16:30; Stop 07/22/16 at 16:31; Status DC Digoxin (Lanoxin) 250 mcg 1X ONCE IV ; Start 07/22/16 at 18:30; Stop 07/22/16 at 18:42; Status DC Digoxin (Lanoxin) 500 mcg 1X ONCE IV Last administered on 07/22/16 18:47; Start 07/22/16 at 18:45; Stop 07/22/16 at 18:46; Status DC Metoprolol Tartrate (Lopressor) 75 mg BID PO Last administered on 07/24/16 21: 30; Start 07/22/16 at 21:00; Stop 07/25/16 at 13:12; Status DC Nitroglycerin 0.4 mg 0.4 mg PRN Q5MIN PRN SL CHEST PAIN; Start 07/23/16 at 12:00 ; Status UNV Heparin Sodium (Porcine) 71593 unit/Lactated Ringer's 1,020 ml @ 1,020 mls/hr 1X PERIOP ONCE IRR Last administered on 07/25/16 08:46; Start 07/25/16 at 06: 00; Stop 07/25/16 at 06:59; Status DC Potassium Chloride 70 meq/ Sodium Bicarbonate 12.5 meq/Lidocaine HCl 24 ml/ Parenteral Electrolytes 571.5 ml @ 571.5 mls/ hr 1X PERIOP ONCE IRR ; Start at 06:00; Stop 07/25/16 at 06:59; Status DC Potassium Chloride/Sodium Bicarbonate/ Parenteral Electrolytes (Isolyte S) 520 ml @ 520 mls/hr 1X PERIOP ONCE IRR ; Start 07/25/16 at 06:00; Stop 07/25/16 at 06:59; Status DC Etomidate (Amidate) 20 mg STK-MED ONCE IV ; Start 07/25/16 at 06:08; Stop at 06:09; Status DC Phenylephrine HCl (-Synephrine Inj) 10 mg STK-MED ONCE .ROUTE ; Start at 06:08; Stop 07/25/16 at 06:09; Status DC Aminocaproic Acid (Amicar) 5,000 mg STK-MED ONCE IV ; Start 07/25/16 at 06:08; Stop 07/25/16 at 06:09; Status DC Heparin Sodium (Porcine) (Heparin Sodium) 10,000 unit STK-MED ONCE .ROUTE ; Start 07/25/16 at 06:10; Stop 07/25/16 at 06:11; Status DC Rocuronium [place] (Zemuron) 100 mg STK-MED ONCE .ROUTE ; Start 07/25/16 at 06: 11; Stop 07/25/16 at 06:12; Status DC Morphine Sulfate 4 mg STK-MED ONCE .ROUTE ; Start 07/25/16 at 06:59; Stop at 07:00; Status DC Morphine Sulfate 4 mg 4 mg 1X ONCE IV ; Start 07/25/16 at 07:15; Stop 07/25/16 at 07:16; Status DC Cefazolin Sodium/ Sodium Chloride (Ancef/Iv Sodium Chloride 0.9% 500ml Bag) 500 ml @ 500 mls/hr 1X PERIOP ONCE IRR Last administered on 07/25/16 08:46; Start 07/25/16 at 07:15; Stop 07/25/16 at 08:14; Status DC Cellulose 1 each STK-MED ONCE .ROUTE Last administered on 07/25/16 08:46; Start 07/25/16 at 07:07; Stop 07/25/16 at 07:08; Status DC Vancomycin HCl (Vanco) 10 gm STK-MED ONCE .ROUTE Last administered on 08:46; Start 07/25/16 at 07:07; Stop 07/25/16 at 07:08; Status DC Papaverine HCl 60 mg STK-MED ONCE .ROUTE Last administered on 07/25/16 08:46; Start 07/25/16 at 07:07; Stop 07/25/16 at 07:08; Status DC Aspirin (Aspirin) 300 mg STK-MED ONCE .ROUTE Last administered on 07/25/16 17: 25; Start 07/25/16 at 07:08; Stop 07/25/16 at 07:09; Status DC Sodium Chloride (Sodium Chloride) 50 ml STK-MED ONCE IJ Last administered on 08:46; Start 07/25/16 at 07:08; Stop 07/25/16 at 07:09; Status DC Midazolam HCl (Versed) 2 mg STK-MED ONCE .ROUTE ; Start 07/25/16 at 07:15; Stop 07/25/16 at 07:16; Status DC Ephedrine Sulfate 50 mg 50 mg STK-MED ONCE IV ; Start 07/25/16 at 07:16; Stop at 07:17; Status DC Nitroglycerin/ Dextrose (Nitroglycerin Drip) 250 ml @ As Directed STK-MED ONCE IV ; Start 07/25/16 at 07:16; Stop 07/25/16 at 07:17; Status DC Midazolam HCl (Versed) 2 mg STK-MED ONCE .ROUTE ; Start 07/25/16 at 07:18; Stop 07/25/16 at 07:19; Status DC Fentanyl Citrate (Fentanyl 2ml Vial) 100 mcg STK-MED ONCE .ROUTE ; Start at 07:19; Stop 07/25/16 at 07:20; Status DC Sufentanil Citrate (Sufenta) 100 mcg STK-MED ONCE .ROUTE ; Start 07/25/16 at 07: 19; Stop 07/25/16 at 07:20; Status DC Midazolam HCl (Versed) 2 mg 1X ONCE IV ; Start 07/25/16 at 08:00; Stop at 08:01; Status DC Dexamethasone Sodium Phosphate (Decadron) 20 mg STK-MED ONCE .ROUTE ; Start 01/31 at 07:58; Stop 07/25/16 at 07:59; Status DC Rocuronium B[place]den (Zemuron) 100 mg STK-MED ONCE .ROUTE ; Start 07/25/16 at 08: 52; Stop 07/25/16 at 08:53; Status DC Sufentanil Citrate (Sufenta) 100 mcg STK-MED ONCE .ROUTE ; Start 07/25/16 at 08: 53; Stop 07/25/16 at 08:54; Status DC Protamine Sulfate 250 mg STK-MED ONCE IV ; Start 07/25/16 at 10:43; Stop at 10:44; Status DC Rocuronium Baisden 100 mg 100 mg STK-MED ONCE .ROUTE ; Start 07/25/16 at 10:52; Stop 07/25/16 at 10:53; Status DC Albumin Human 0 ml @ As Directed STK-MED ONCE IV ; Start 07/25/16 at 10:53; Stop 07/25/16 at 10:54; Status DC Amiodarone HCl/ Dextrose (Cordarone) 518 ml @ 34.53 mls/ hr 1X ONCE IV Last administered on 07/25/16t 18:52; Start 07/25/16 at 11:30; Stop 07/26/16 at 02:30 ; Status DC Sodium Bicarbonate 50 meq STK-MED ONCE .ROUTE ; Start 07/25/16 at 11:35; Stop at 11:36; Status DC Protamine Sulfate 50 mg STK-MED ONCE IV ; Start 07/25/16 at 12:31; Stop at 12:32; Status DC Amiodarone HCl (Cordarone) 150 mg STK-MED ONCE .ROUTE ; Start 07/25/16 at 12:37 ; Stop 07/25/16 at 12:38; Status DC Isoflurane (Isoflurane) 90 ml STK-MED ONCE IH ; Start 07/25/16 at 12:42; Stop at 12:43; Status DC Lidocaine HCl (Lidocaine HCl 2% Abboject) 100 mg STK-MED ONCE .ROUTE ; Start 01/31 at 13:07; Stop 07/25/16 at 13:08; Status DC Mannitol (Mannitol) 12.5 g STK-MED ONCE .ROUTE ; Start 07/25/16 at 13:07; Stop 07/25/16 at 13:08; Status DC Calcium Chloride 1,000 mg STK-MED ONCE IV ; Start 07/25/16 at 13:07; Stop at 13:08; Status DC Sodium Bicarbonate 50 meq 50 meq STK-MED ONCE .ROUTE ; Start 07/25/16 at 13:07; Stop 07/25/16 at 13:08; Status DC Albumin Human (Albuminar) 100 ml @ As Directed STK-MED ONCE IV ; Start at 13:07; Stop 07/25/16 at 13:08; Status DC Magnesium Sulfate 5 gm STK-MED ONCE .ROUTE ; Start 07/25/16 at 13:08; Stop 07/25 at 13:09; Status DC Heparin Sodium (Porcine) 64193 unit 30,000 unit STK-MED ONCE .ROUTE ; Start 01/31 at 13:08; Stop 07/25/16 at 13:09; Status DC Clevidipine (Cleviprex) 100 ml @ 0 mls/hr CONT PRN IV PER PROTOCOL; Start 07/25 at 13:45; Stop 07/26/16 at 11:29; Status DC Heparin Sodium (Porcine) 20484 unit 30,000 unit STK-MED ONCE .ROUTE ; Start 01/31 at 13:39; Stop 07/25/16 at 13:40; Status DC Epinephrine HCl/ Sodium Chloride (Adrenalin/Iv Sodium Chloride 0.9% 250ml) 254 ml @ 3.81 mls/hr CONT PRN IV SEE I/O RECORD; Start 07/25/16 at 13:45 Epinephrine HCl (Epinephrine Syringe) 1 mg STK-MED ONCE .ROUTE ; Start 07/25/16 at 13:52; Stop 07/25/16 at 13:53; Status DC Rocuronium B[place] (Zemuron) 100 mg STK-MED ONCE .ROUTE ; Start 07/25/16 at 13: 57; Stop 07/25/16 at 13:58; Status DC Sodium Bicarbonate 50 meq 50 meq STK-MED ONCE .ROUTE ; Start 07/25/16 at 14:04; Stop 07/25/16 at 14:05; Status DC Procainamide HCl/ Dextrose (Pronestyl) 520 ml @ 15.6 mls/hr CONT PRN IV SEE I/ O RECORD; Start 07/25/16 at 14:30; Stop 07/28/16 at 15:22; Status DC Sodium Bicarbonate 50 meq STK-MED ONCE .ROUTE ; Start 07/25/16 at 14:31; Stop at 14:32; Status DC Sodium Bicarbonate 50 meq STK-MED ONCE .ROUTE ; Start 07/25/16 at 14:31; Stop at 14:32; Status DC Protamine Sulfate 50 mg STK-MED ONCE IV ; Start 07/25/16 at 15:13; Stop at 15:14; Status DC Protamine Sulfate 50 mg STK-MED ONCE IV ; Start 07/25/16 at 15:13; Stop at 15:14; Status DC Isoflurane 90 ml 90 ml STK-MED ONCE IH ; Start 07/25/16 at 15:13; Stop 07/25/16 at 15:14; Status DC Dobutamine HCl/ Dextrose 250 ml @ As Directed STK-MED ONCE IV ; Start 07/25/16 at 15:17; Stop 07/25/16 at 15:18; Status DC Iohexol 100 ml 100 ml STK-MED ONCE .ROUTE Last administered on 07/25/16t 15:39 ; Start 07/25/16 at 15:28; Stop 07/25/16 at 15:29; Status DC Norepinephrine Bitartrate 8 mg/ Sodium Chloride 258 ml @ 1.93 mls/hr 1X ONCE IV Last administered on 07/25/16t 18:53; Start 07/25/16 at 16:00; Stop at 08:04; Status DC Albumin Human (Plasmanate) 1,000 ml @ As Directed STK-MED ONCE IV ; Start 07/25 at 16:11; Stop 07/25/16 at 16:12; Status DC Heparin Sodium (Porcine) (Heparin Sodium) 10,000 unit STK-MED ONCE .ROUTE ; Start 07/25/16 at 16:19; Stop 07/25/16 at 16:20; Status DC Lidocaine HCl (Lidocaine HCl 2% Abboject) 100 mg STK-MED ONCE .ROUTE ; Start 01/31 at 16:19; Stop 07/25/16 at 16:20; Status DC Mannitol (Mannitol) 12.5 g STK-MED ONCE .ROUTE ; Start 07/25/16 at 16:19; Stop 07/25/16 at 16:20; Status DC Calcium Chloride 1,000 mg STK-MED ONCE IV ; Start 07/25/16 at 16:19; Stop at 16:20; Status DC Sodium Bicarbonate 50 meq STK-MED ONCE .ROUTE ; Start 07/25/16 at 16:19; Stop at 16:20; Status DC Magnesium Sulfate 5 gm STK-MED ONCE .ROUTE ; Start 07/25/16 at 16:19; Stop 07/25 at 16:20; Status DC Heparin Sodium (Porcine) (Heparin Sodium) 10,000 unit STK-MED ONCE .ROUTE ; Start 07/25/16 at 16:20; Stop 07/25/16 at 16:21; Status DC Lidocaine HCl (Lidocaine HCl 2% Abboject) 100 mg STK-MED ONCE .ROUTE ; Start 01/31 at 16:20; Stop 07/25/16 at 16:21; Status DC Aminocaproic Acid (Amicar) 5,000 mg STK-MED ONCE IV ; Start 07/25/16 at 16:20; Stop 07/25/16 at 16:21; Status DC Mannitol (Mannitol) 12.5 g STK-MED ONCE .ROUTE ; Start 07/25/16 at 16:20; Stop 07/25/16 at 16:21; Status DC Sodium Bicarbonate 50 meq 50 meq STK-MED ONCE .ROUTE ; Start 07/25/16 at 16:20; Stop 07/25/16 at 16:21; Status DC Albumin Human (Albuminar) 100 ml @ As Directed STK-MED ONCE IV ; Start at 16:20; Stop 07/25/16 at 16:21; Status DC Rocuronium Baisden (Zemuron) 50 mg STK-MED ONCE .ROUTE ; Start 07/25/16 at 16:33 ; Stop 07/25/16 at 16:34; Status DC Rocuronium Baisden (Zemuron) 50 mg STK-MED ONCE .ROUTE ; Start 07/25/16 at 16:33 ; Stop 07/25/16 at 16:34; Status DC Protamine Sulfate 50 mg STK-MED ONCE IV ; Start 07/25/16 at 16:34; Stop at 16:35; Status DC Sodium Bicarbonate 50 meq STK-MED ONCE .ROUTE ; Start 07/25/16 at 16:36; Stop at 16:37; Status DC Calcium Chloride 1,000 mg STK-MED ONCE IV ; Start 07/25/16 at 16:41; Stop at 16:42; Status DC Epinephrine HCl (Epinephrine Syringe) 1 mg STK-MED ONCE .ROUTE ; Start 07/25/16 at 16:41; Stop 07/25/16 at 16:42; Status DC Sodium Bicarbonate 50 meq STK-MED ONCE .ROUTE ; Start 07/25/16 at 16:52; Stop at 16:53; Status DC Sodium Bicarbonate 50 meq STK-MED ONCE .ROUTE ; Start 07/25/16 at 16:52; Stop at 16:53; Status DC Sodium Bicarbonate 50 meq STK-MED ONCE .ROUTE ; Start 07/25/16 at 16:52; Stop at 16:53; Status DC Vasopressin (Vasostrict) 20 unit STK-MED ONCE .ROUTE ; Start 07/25/16 at 16:54; Stop 07/25/16 at 16:55; Status DC Famotidine (Pepcid) 20 mg STK-MED ONCE .ROUTE ; Start 07/25/16 at 16:56; Stop at 16:57; Status DC Dexamethasone Sodium Phosphate (Decadron) 20 mg STK-MED ONCE .ROUTE ; Start 01/31 at 16:56; Stop 07/25/16 at 16:57; Status DC Diphenhydramine HCl 50 mg 50 mg STK-MED ONCE .ROUTE ; Start 07/25/16 at 16:56; Stop 07/25/16 at 16:57; Status DC Vasopressin/ Dextrose (Vasostrict) 102 ml @ 6 mls/hr CONT PRN IV SEE I/O RECORD Last administered on 08/02/16t 16:12; Start 07/25/16 at 17:15 Sodium Bicarbonate 50 meq STK-MED ONCE .ROUTE ; Start 07/25/16 at 17:24; Stop at 17:25; Status DC Sodium Bicarbonate 50 meq 50 meq STK-MED ONCE .ROUTE ; Start 07/25/16 at 17:24; Stop 07/25/16 at 17:25; Status DC Cefazolin Sodium/ Dextrose (Ancef 2gm Premix) 50 ml @ As Directed STK-MED ONCE IV ; Start 07/25/16 at 17:32; Stop 07/25/16 at 17:33; Status DC Sodium Chloride 3 ml 3 ml PRN Q12HR PRN IV AFTER MEDS AND BLOOD DRAWS; Start at 17:30; Stop 07/29/16 at 13:38; Status DC Lactated Ringer's 1,000 ml @ 15 mls/hr Q24H IV Last administered on 07/29/16 16:45; Start 07/25/16 at 17:30; Stop 07/31/16 at 15:33; Status DC Insulin Human Regular/Sodium Chloride (Novolin R Vial/ Iv Normal Saline 150ml) 151.5 ml @ 0 mls/hr CONT PRN PRN IV SEE I/O RECORD Last administered on 03:03; Start 07/25/16 at 17:30; Stop 07/29/16 at 13:51; Status DC Dextrose 25 gm 25 gm PRN Q15MIN PRN IV LOW BLOOD SUGAR; Start 07/25/16 at 17:30 ; Stop 07/29/16 at 13:51; Status DC Dopamine HCl/ Dextrose 250 ml @ 0 mls/hr CONT PRN PRN IV SEE I/O RECORD; Start 07/25/16 at 17:30; Stop 07/26/16 at 11:41; Status DC Amiodarone HCl/ Dextrose (Cordarone) 518 ml @ 33.33 mls/ hr CONT PRN PRN IV SEE COMMENTS; Start 07/25/16 at 17:30; Status UNV Info 1 ea CONT PRN PRN MC SEE COMMENTS; Start 07/25/16 at 17:30 Info 1 ea 1 ea CONT PRN PRN MC SEE COMMENTS; Start 07/25/16 at 17:30 Magnesium Sulfate/ Dextrose (Magnesium Sulfate PREMIX 1GM) 100 ml @ 100 mls/hr PRN DAILY PRN IV FOR MAG < 2.2 Last administered on 07/27/16 10:59; Start 01/31 at 17:30 Famotidine (Pepcid) 20 mg BID IVP Last administered on 08/03/16 09:15; Start 07/25/16 at 21:00 Metoclopramide HCl (Reglan) 10 mg PRN Q6HRS PRN IV NAUSEA/VOMITING Last administered on 07/29/16 09:54; Start 07/25/16 at 17:30 Morphine Sulfate 2 mg PRN Q1HR PRN IV PAIN Last administered on 07/28/16 14:21 ; Start 07/25/16 at 17:30; Stop 07/29/16 at 13:38; Status DC Acetaminophen (Tylenol) 650 mg PRN Q4HRS PRN PO MILD PAIN / TEMP; Start at 17:30; Stop 07/29/16 at 13:38; Status DC Acetaminophen (Acetaminophen Supp) 650 mg PRN Q4HRS PRN MA MILD PAIN / TEMP Last administered on 08/03/16 01:04; Start 07/25/16 at 17:30 Meperidine HCl 12.5 mg 12.5 mg PRN Q15MIN PRN IV SHIVERING; Start 07/25/16 at 17:30; Stop 07/29/16 at 13:38; Status DC Propofol (Diprivan) 100 ml @ 0 mls/hr CONT PRN PRN IV POSTOP SEDATION UNTIL EXTUBATE; Start 07/25/16 at 17:30; Stop 07/28/16 at 15:22; Status DC Aspirin (Ecotrin) 325 mg DAILYWBKFT PO Last administered on 07/29/16 09:54; Start 07/26/16 at 08:00; Stop 07/29/16 at 09:59; Status DC Aspirin (Aspirin) 300 mg PRN DAILY PRN MA IF UNABLE TO TAKE PO; Start 07/25/16 at 17:30; Stop 07/26/16 at 12:00; Status DC Acetaminophen/ Hydrocodone Bitart (Lortab 5/325) 1 tab PRN Q4HRS PRN PO MILD PAIN; Start 07/25/16 at 17:30 Acetaminophen/ Hydrocodone Bitart 2 tab 2 tab PRN Q4HRS PRN PO MODERATE PAIN, SEVERE PAIN; Start 07/25/16 at 17:30 Cefazolin Sodium/ Dextrose 50 ml @ 100 mls/hr Q8H IV ; Start 07/25/16 at 18:00 ; Stop 07/25/16 at 21:42; Status DC Albumin Human 250 ml @ 62.5 mls/hr 1X ONCE IV Last administered on 07/27/16 17:52; Start 07/25/16 at 17:30; Stop 07/25/16 at 21:29; Status DC Midazolam HCl 100 ml @ As Directed STK-MED ONCE IV ; Start 07/25/16 at 18:06; Stop 07/25/16 at 18:07; Status DC Midazolam HCl 100 ml @ 0 mls/hr CONT PRN IV SEE I/O RECORD Last administered on 07/25/16 18:56; Start 07/25/16 at 18:15; Stop 07/26/16 at 08:59; Status DC Vancomycin HCl 1 gm/Sodium Chloride 250 ml @ 250 mls/hr 1X ONCE IV Last administered on 07/25/16 20:56; Start 07/25/16 at 18:15; Stop 07/25/16 at 19:14 ; Status DC Piperacillin Sod/ Tazobactam Sod/ Sodium Chloride (Zosyn/Iv Sodium Chloride 0.9 % 50ml) 50 ml @ 100 mls/hr Q6HRS IV Last administered on 07/31/16 05:32; Start 07/25/16 at 18:15; Stop 07/31/16 at 10:25; Status DC Midazolam HCl (Versed) 2 mg PRN Q20MIN PRN IV SEDATION; Start 07/25/16 at 18:15 ; Stop 07/25/16 at 18:39; Status DC Midazolam HCl 5 mg 5 mg PRN Q30MIN PRN IV SEDATION; Start 07/25/16 at 18:15; Stop 07/25/16 at 18:39; Status DC Vecuronium Baisden 100 mg/ Dextrose 100 ml @ 0 mls/hr 1X ONCE IV Last administered on 07/25/16 19:43; Start 07/25/16 at 18:15; Stop 07/25/16 at 18:17 ; Status DC Midazolam HCl 100 ml @ 0 mls/hr CONT PRN IV SEE I/O RECORD Last administered on 07/28/16 19:40; Start 07/25/16 at 18:45 Dobutamine HCl/ Dextrose 250 ml @ 0 mls/hr CONT PRN IV SEE I/O RECORD Last administered on 07/29/16 03:10; Start 07/25/16 at 18:45; Stop 07/29/16 at 13:38 ; Status DC Potassium Chloride 50 ml @ 50 mls/hr Q1H IV Last administered on 07/25/16 22: 58; Start 07/25/16 at 21:00; Stop 07/25/16 at 23:59; Status DC Cefazolin Sodium/ Dextrose 50 ml @ 100 mls/hr Q8H IV Last administered on 07/27 05:34; Start 07/25/16 at 22:00; Stop 07/27/16 at 06:29; Status DC Heparin Sodium (Porcine) 89868 unit/Dextrose 512.5 ml @ 0 mls/hr Q0M ONCE IV Last administered on 07/25/16 22:21; Start 07/25/16 at 22:15; Stop 07/25/16 at 22:16; Status DC Vecuronium Baisden/Dextrose (Norcuron) 100 ml @ 0 mls/hr CONT PRN IV SEE I/O RECORD Last administered on 07/26/16 01:07; Start 07/26/16 at 00:45; Stop 07/29 at 13:38; Status DC Dextrose 25 gm 25 gm 1X ONCE IV Last administered on 07/26/16 01:08; Start at 01:00; Stop 07/26/16 at 01:18; Status DC Amiodarone HCl/ Dextrose (Cordarone) 259 ml @ 17.26 mls/ hr CONT PRN IV SEE I/ O RECORD Last administered on 07/30/16 13:02; Start 07/26/16 at 06:45; Stop at 15:33; Status DC Cefazolin Sodium/ Dextrose 2 gm 2 gm STK-MED ONCE IV ; Start 07/25/16 at 11:00; Stop 07/26/16 at 08:53; Status DC Lactated Ringer's 500 ml @ 5,000 mls/hr PRN Q10MIN PRN IV CVP <14; Start 07/26 at 10:00; Stop 07/29/16 at 13:38; Status DC Fentanyl Citrate (Fentanyl 600 Mcg/30 ml AGRICULTURAL PRODUCE SORTER) 30 ml @ 0 mls/hr CONT PRN IV PROTOCOL Last administered on 07/31/16 09:12; Start 07/26/16 at 10:00; Stop at 13:31; Status DC Fentanyl Citrate (Fentanyl 2ml Vial) 25 mcg PRN Q1HR PRN IV COMM; Start at 10:00; Stop 07/29/16 at 13:38; Status DC Fentanyl Citrate (Fentanyl 2ml Vial) 50 mcg PRN Q1HR PRN IV COMM; Start at 10:00; Stop 07/29/16 at 13:38; Status DC Chlorhexidine Gluconate (Peridex) 15 ml BID MM Last administered on 08/02/16 21:19; Start 07/26/16 at 10:30 Sulfur Hexafluoride Microspheres (Lumason) 25 mg STK-MED ONCE IVP ; Start at 11:29; Stop 07/26/16 at 11:30; Status DC Aspirin 300 mg 300 mg DAILY MA Last administered on 07/28/16 07:55; Start 03/03 at 12:00; Stop 07/29/16 at 19:10; Status DC Potassium Chloride (KCl Premix 20meq) 50 ml @ 50 mls/hr 1X ONCE IV Last administered on 07/26/16 12:55; Start 07/26/16 at 12:00; Stop 07/26/16 at 12:59 ; Status DC Sulfur Hexafluoride Microspheres (Lumason) 25 mg 1X ONCE IVP Last administered on 07/26/16 11:45; Start 07/26/16 at 11:45; Stop 07/26/16 at 11:50 ; Status DC Multi-Ingred Cream/Lotion/Oil/ Oint (Artificial Tears Eye Oint) 1 adri BID OU Last administered on 08/02/16 21:20; Start 07/26/16 at 21:00 Ondansetron HCl (Zofran) 4 mg PRN Q6HRS PRN IV NAUSEA/VOMITING; Start 07/27/16 at 07:00; Stop 07/28/16 at 06:59; Status DC Fentanyl Citrate (Fentanyl 2ml Vial) 25 mcg PRN Q5MIN PRN IV MILD PAIN; Start 07/27/16 at 07:00; Stop 07/28/16 at 06:59; Status DC Fentanyl Citrate (Fentanyl 2ml Vial) 50 mcg PRN Q5MIN PRN IV MODERATE PAIN; Start 07/27/16 at 07:00; Stop 07/28/16 at 06:59; Status DC Morphine Sulfate 1 mg 1 mg PRN Q10MIN PRN IV SEVERE PAIN; Start 07/27/16 at 07: 00; Stop 07/28/16 at 06:59; Status DC Lactated Ringer's (Iv Lactated Ringers) 1,000 ml @ 30 mls/hr Q24H IV Last administered on 07/26/16 17:25; Start 07/27/16 at 07:00; Stop 07/27/16 at 18:59 ; Status DC Lidocaine HCl 2 ml PRN 1X PRN ID PRIOR TO IV START; Start 07/27/16 at 07:00; Stop 07/28/16 at 06:59; Status DC Hydromorphone HCl (Dilaudid) 0.5 mg PRN Q10MIN PRN IV SEV PAIN, Second choice; Start 07/27/16 at 07:00; Stop 07/28/16 at 06:59; Status DC Prochlorperazine Edisylate 5 mg 5 mg PACU PRN PRN IV NAUSEA, MRX1; Start at 07:00; Stop 07/28/16 at 06:59; Status DC Heparin Sodium (Porcine) 15041 unit/Dextrose 512.5 ml @ 0 mls/hr Q0M ONCE IV Last administered on 07/26/16 19:40; Start 07/26/16 at 18:30; Stop 07/26/16 at 18:31; Status DC Amiodarone HCl 150 mg/Dextrose 103 ml @ 618 mls/hr 1X ONCE IV Last administered on 07/26/16 19:25; Start 07/26/16 at 19:15; Stop 07/26/16 at 19:24 ; Status DC Norepinephrine Bitartrate 8 mg/ Sodium Chloride 258 ml @ 1.93 mls/hr CONT PRN IV SEE I/O RECORD Last administered on 08/03/16 11:12; Start 07/26/16 at 19:15 Amiodarone HCl 900 mg/Dextrose 518 ml @ 0 mls/hr CONT PRN IV PER PROTOCOL; Start 07/26/16 at 19:15; Stop 07/27/16 at 12:11; Status DC Milrinone Lactate/ Dextrose 100 ml @ 0 mls/hr CONT PRN IV SEE I/O RECORD Last administered on 07/26/16 20:03; Start 07/26/16 at 19:45; Stop 07/29/16 at 13:51 ; Status DC Calcium Chloride/ Sodium Chloride (Iv Sodium Chloride 0.9% 100ml) 120 ml @ 240 mls/hr 1X ONCE IV Last administered on 07/26/16 21:04; Start 07/26/16 at 21: 30; Stop 07/26/16 at 21:59; Status DC Digoxin 500 mcg 500 mcg 1X ONCE IV Last administered on 07/26/16 21:55; Start 07/26/16 at 21:45; Stop 07/26/16 at 21:46; Status DC Cefazolin Sodium/ Sodium Chloride (Ancef/Iv Sodium Chloride 0.9% 500ml Bag) 500 ml @ 500 mls/hr 1X PERIOP ONCE IRR Last administered on 07/27/16 14:37; Start 07/27/16 at 10:00; Stop 07/27/16 at 10:59; Status DC Vancomycin HCl (Vanco) 10 gm 1X ONCE CEMENT Last administered on 07/27/16 14: 37; Start 07/27/16 at 12:30; Stop 07/27/16 at 12:31; Status DC Rocuronium Baisden (Zemuron) 100 mg STK-MED ONCE .ROUTE ; Start 07/27/16 at 12: 32; Stop 07/27/16 at 12:33; Status DC Lorazepam (Ativan) 2 mg STK-MED ONCE .ROUTE ; Start 07/27/16 at 14:13; Stop 04/02 at 14:14; Status DC Phenylephrine HCl 1 mg 1 mg STK-MED ONCE IV ; Start 07/27/16 at 14:18; Stop 04/02 at 14:19; Status DC Albumin Human (Plasmanate) 250 ml @ 62.5 mls/hr 1X ONCE IV Last administered on 07/27/16 17:52; Start 07/27/16 at 17:15; Stop 07/27/16 at 21:14; Status DC Sodium Bicarbonate 50 meq STK-MED ONCE .ROUTE ; Start 07/27/16 at 17:39; Stop at 17:40; Status DC Sodium Bicarbonate 50 meq 1X ONCE IV Last administered on 07/27/16 17:51; Start 07/27/16 at 18:00; Stop 07/27/16 at 18:01; Status DC Sodium Bicarbonate 50 meq 1X ONCE IV Last administered on 07/27/16 17:52; Start 07/27/16 at 18:00; Stop 07/27/16 at 18:01; Status DC Fentanyl Citrate (Fentanyl 2ml Vial) 25 mcg PRN Q5MIN PRN IV MILD PAIN; Start 07/28/16 at 07:00; Stop 07/29/16 at 06:59; Status DC Fentanyl Citrate (Fentanyl 2ml Vial) 50 mcg PRN Q5MIN PRN IV MODERATE PAIN; Start 07/28/16 at 07:00; Stop 07/29/16 at 06:59; Status DC Morphine Sulfate 1 mg 1 mg PRN Q10MIN PRN IV SEVERE PAIN; Start 07/28/16 at 07: 00; Stop 07/29/16 at 06:59; Status DC Lactated Ringer's (Iv Lactated Ringers) 1,000 ml @ 30 mls/hr Q24H IV Last administered on 07/28/16 06:49; Start 07/28/16 at 06:49; Stop 07/28/16 at 18:48 ; Status DC Lidocaine HCl 2 ml PRN 1X PRN ID PRIOR TO IV START; Start 07/28/16 at 07:00; Stop 07/29/16 at 06:59; Status DC Hydromorphone HCl (Dilaudid) 0.5 mg PRN Q10MIN PRN IV SEV PAIN, Second choice; Start 07/28/16 at 07:00; Stop 07/29/16 at 06:59; Status DC Rocuronium Baisden 50 mg 50 mg STK-MED ONCE .ROUTE ; Start 07/28/16 at 07:27; Stop 07/28/16 at 07:28; Status DC Cefazolin Sodium/ Sodium Chloride (Ancef/Iv Sodium Chloride 0.9% 500ml Bag) 500 ml @ 500 mls/hr 1X PERIOP ONCE IRR Last administered on 07/28/16 09:25; Start 07/28/16 at 08:00; Stop 07/28/16 at 08:59; Status DC Cellulose 1 each STK-MED ONCE .ROUTE ; Start 07/28/16 at 07:42; Stop 07/28/16 at 07:43; Status DC Bupivacaine HCl/ Epinephrine Bitart 50 ml 50 ml STK-MED ONCE .ROUTE ; Start at 07:42; Stop 07/28/16 at 07:43; Status DC Heparin Sodium (Porcine)/Sodium Chloride (Heparin Sodium/ Iv Sodium Chloride 0.9 % 500ml Bag) 505 ml @ 505 mls/hr 1X PERIOP ONCE IRR Last administered on 07/28t 10:19; Start 07/28/16 at 08:15; Stop 07/28/16 at 09:14; Status DC Lorazepam 2 mg 2 mg STK-MED ONCE .ROUTE ; Start 07/28/16 at 08:29; Stop at 08:30; Status DC Magnesium Sulfate/ Dextrose (Magnesium Sulfate PREMIX 1GM) 100 ml @ 100 mls/hr 1X ONCE IV Last administered on 07/28/16 13:09; Start 07/28/16 at 09:00; Stop 07/28/16 at 09:59; Status DC Vasopressin (Vasostrict) 20 unit STK-MED ONCE .ROUTE ; Start 07/28/16 at 09:03; Stop 07/28/16 at 09:04; Status DC Epinephrine HCl (Epinephrine Syringe) 1 mg STK-MED ONCE .ROUTE ; Start 07/28/16 at 09:09; Stop 07/28/16 at 09:10; Status DC Calcium Chloride 1,000 mg STK-MED ONCE IV ; Start 07/28/16 at 09:09; Stop at 09:10; Status DC Phenylephrine HCl 1 mg STK-MED ONCE IV ; Start 07/28/16 at 09:54; Stop 07/28/16 at 09:55; Status DC Sevoflurane 60 ml 60 ml STK-MED ONCE IH ; Start 07/28/16 at 09:54; Stop at 09:55; Status DC Epinephrine HCl/ Sodium Chloride (Adrenalin/Iv Sodium Chloride 0.9% 250ml) 254 ml @ 3.81 mls/hr 1X ONCE IV ; Start 07/28/16 at 10:00; Stop 07/29/16 at 19:10 ; Status DC Heparin Sodium (Porcine) 70769 unit 10,000 unit STK-MED ONCE .ROUTE ; Start at 09:57; Stop 07/28/16 at 09:58; Status DC Albumin Human (Plasmanate) 500 ml @ As Directed STK-MED ONCE IV ; Start at 09:57; Stop 07/28/16 at 09:58; Status DC Iohexol 100 ml 100 ml STK-MED ONCE .ROUTE ; Start 07/28/16 at 10:39; Stop at 10:40; Status DC Heparin Sodium/ Sodium Chloride 500 ml @ As Directed STK-MED ONCE .ROUTE ; Start 07/28/16 at 10:39; Stop 07/28/16 at 10:40; Status DC Iohexol 100 ml 100 ml STK-MED ONCE .ROUTE ; Start 07/28/16 at 10:43; Stop at 10:44; Status DC Heparin Sodium/ Sodium Chloride 500 ml @ As Directed STK-MED ONCE .ROUTE ; Start 07/28/16 at 11:21; Stop 07/28/16 at 11:22; Status DC Albuterol Sulfate (Ventolin Neb Soln) 2.5 mg RTQID NEB Last administered on 08:46; Start 07/28/16 at 12:00; Stop 07/30/16 at 17:05; Status DC Furosemide (Lasix) 40 mg 1X ONCE IVP Last administered on 07/28/16 13:16; Start 07/28/16 at 13:15; Stop 07/28/16 at 13:16; Status DC Furosemide (Lasix) 40 mg 1X ONCE IVP Last administered on 07/28/16 13:19; Start 07/28/16 at 14:00; Stop 07/28/16 at 14:01; Status DC Heparin Sodium/ Sodium Chloride 1000 unit 1,000 unit CONT PRN IV ART LINE FLUSH Last administered on 08/02/16 06:47; Start 07/28/16 at 14:45 Albumin Human 250 ml @ 62.5 mls/hr PRN Q1HR PRN IV SEE COMMENTS Last administered on 08/02/16 16:12; Start 07/28/16 at 15:15 Furosemide 100 mg/ Sodium Chloride 100 ml @ 5 mls/hr CONT PRN IV SEE I/O RECORD Last administered on 07/30/16 09:50; Start 07/28/16 at 15:30; Stop 07/31 at 13:31; Status DC Potassium Chloride 50 ml @ 50 mls/hr Q1H IV Last administered on 07/28/16 19: 39; Start 07/28/16 at 18:30; Stop 07/28/16 at 20:29; Status DC Potassium Chloride (KCl Premix 20meq) 50 ml @ 50 mls/hr Q1H IV Last administered on 07/29/16 09:36; Start 07/29/16 at 07:00; Stop 07/29/16 at 08:59 ; Status DC Lorazepam (Ativan) 2 mg STK-MED ONCE .ROUTE ; Start 07/28/16 at 08:30; Stop at 08:16; Status DC Aspirin (Arti Aspirin) 325 mg DAILYWBKFT PO Last administered on 08/03/16 09: 13; Start 07/30/16 at 08:00 Docusate Sodium 100 mg 100 mg DAILY PO Last administered on 07/31/16 07:59; Start 07/30/16 at 09:00; Stop 07/31/16 at 11:00; Status DC Dobutamine HCl/ Dextrose 250 ml @ 12.1 mls/hr CONT PRN IV PER PROTOCOL Last administered on 08/02/16 18:03; Start 07/29/16 at 13:30 Potassium Chloride 50 ml @ 50 mls/hr Q1H IV Last administered on 07/29/16 22: 39; Start 07/29/16 at 20:00; Stop 07/29/16 at 22:59; Status DC Potassium Chloride (KCl Premix 20meq) 50 ml @ 50 mls/hr Q1H IV Last administered on 07/30/16 09:19; Start 07/30/16 at 07:00; Stop 07/30/16 at 08:59 ; Status DC Ipratropium Baisden (Atrovent) 0.5 mg RTQID NEB Last administered on 08/03/16 07:57; Start 07/30/16 at 12:30 Digoxin 500 mcg 500 mcg 1X ONCE IV Last administered on 07/30/16 13:01; Start 07/30/16 at 12:15; Stop 07/30/16 at 12:19; Status DC Dexmedetomidine HCl/Sodium Chloride (Precedex/Iv Sodium Chloride 0.9% 50ml) 50 ml @ 0 mls/hr CONT PRN IV PER PROTOCOL Last administered on 08/03/16 07:23; Start 07/30/16 at 13:30 Atropine Sulfate 0.5 mg PRN Q5MIN PRN IV SEE COMMENTS; Start 07/30/16 at 13:30 Amiodarone HCl (Cordarone) 400 mg ONCE ONCE PO Last administered on 07/30/16 15:01; Start 07/30/16 at 13:30; Stop 07/30/16 at 13:46; Status DC Amiodarone HCl (Cordarone) 400 mg BID PO Last administered on 08/03/16 09:14; Start 07/30/16 at 21:00 Digoxin 125 mcg 125 mcg DAILY IV Last administered on 08/02/16 08:56; Start at 09:00 Albumin Human (Albuminar) 50 ml @ 50 mls/hr 1X ONCE IV Last administered on 16:26; Start 07/30/16 at 16:30; Stop 07/30/16 at 17:29; Status DC Ibuprofen (Motrin) 200 mg PRN Q6HRS PRN PO fever; Start 07/30/16 at 19:45; Stop 08/01/16 at 12:22; Status DC Metoprolol Tartrate (Lopressor) 2.5 mg 1X ONCE IVP Last administered on 20:23; Start 07/30/16 at 20:30; Stop 07/30/16 at 20:31; Status DC Metoprolol Tartrate 5 mg 5 mg PRN Q2HR PRN IVP HYPERTENSION Last administered on 07/31/16 08:04; Start 07/30/16 at 22:30 Potassium Chloride (KCl Premix 20meq) 50 ml @ 50 mls/hr Q1H IV Last administered on 07/31/16 09:04; Start 07/31/16 at 07:00; Stop 07/31/16 at 08:59 ; Status DC Metoprolol Tartrate (Lopressor) 12.5 mg BID NG Last administered on 08/02/16 08:55; Start 07/31/16 at 10:00 Docusate Sodium (Colace Solution) 100 mg PRN DAILY PRN PO constipation Last administered on 08/01/16 08:40; Start 07/31/16 at 11:00 Hydralazine HCl (Apresoline) 10 mg PRN Q2HRS PRN IVP ELEVATED BP, SEE COMMENTS Last administered on 08/01/16 16:35; Start 07/31/16 at 13:30 Fentanyl Citrate (Fentanyl 2ml Vial) 50 mcg PRN Q2HR PRN IV PAIN Last administered on 08/02/16 12:57; Start 07/31/16 at 13:45 Furosemide (Lasix) 40 mg TID IVP Last administered on 08/02/16 05:49; Start at 14:00; Stop 08/02/16 at 15:33; Status DC Alteplase, Recombinant (Cathflo) 2 mg 1X ONCE INT CAT Last administered on 23:34; Start 07/31/16 at 23:15; Stop 07/31/16 at 23:16; Status DC Haloperidol Lactate (Haldol) 5 mg PRN Q6HRS PRN IVP MODERATE AGITATION Last administered on 08/01/16 21:21; Start 08/01/16 at 21:00 Haloperidol Lactate 10 mg 10 mg PRN Q6HRS PRN IVP SEVERE AGITATION Last administered on 08/01/16 23:59; Start 08/01/16 at 23:45 Propofol 100 ml @ 0 mls/hr CONT PRN IV SEE I/O RECORD Last administered on 08/02 11:43; Start 08/02/16 at 02:45 Piperacillin Sod/ Tazobactam Sod/ Sodium Chloride (Zosyn/Iv Sodium Chloride 0.9 % 50ml) 50 ml @ 100 mls/hr Q6HRS IV Last administered on 08/02/16 13:17; Start 08/02/16 at 12:00; Stop 08/02/16 at 15:43; Status DC Vancomycin HCl 1 each 1 each PRN DAILY PRN MC SEE COMMENTS Last administered on 08/02/16 13:20; Start 08/02/16 at 11:45 Vancomycin HCl 2 gm/Sodium Chloride 500 ml @ 250 mls/hr 1X ONCE IV Last administered on 08/02/16 11:52; Start 08/02/16 at 12:00; Stop 08/02/16 at 13:59 ; Status DC Sodium Chloride (Iv Sodium Chloride 0.9% 500ml Bag) 500 ml @ 500 mls/hr 1X ONCE IV Last administered on 08/02/16 12:39; Start 08/02/16 at 12:45; Stop at 13:44; Status DC Vecuronium [place] (Norcuron Bolus) 10 mg 1X STAT IV Last administered on 08/02 13:34; Start 08/02/16 at 13:17; Stop 08/02/16 at 13:23; Status DC Vancomycin HCl 1 each 1 each 1X ONCE MC ; Start 08/03/16 at 23:30; Stop at 23:31 Vancomycin HCl 1.25 gm/Sodium Chloride 250 ml @ 167 mls/hr Q12H IV Last administered on 08/03/16 00:33; Start 08/03/16 at 00:00; Stop 08/03/16 at 11:07 ; Status DC Fentanyl Citrate (Fentanyl 600 Mcg/30 ml AGRICULTURAL PRODUCE SORTER) 30 ml @ 0 mls/hr CONT PRN PRN IV PROTOCOL Last administered on 08/03/16 00:19; Start 08/02/16 at 13:30 Naloxone HCl 0.4 mg 0.4 mg PRN Q2MIN PRN IV SEE INSTRUCTIONS; Start 08/02/16 at 13:30 Micafungin Sodium 100 mg/Dextrose 100 ml @ 100 mls/hr Q24H IV Last administered on 08/02/16 16:58; Start 08/02/16 at 17:00 Lactated Ringer's 1,000 ml @ 1,000 mls/hr 1X ONCE IV Last administered on 15:45; Start 08/02/16 at 15:45; Stop 08/02/16 at 16:44; Status DC Piperacillin Sod/ Tazobactam Sod 4.5 gm/Sodium Chloride 100 ml @ 200 mls/hr Q6HRS IV Last administered on 08/03/16 06:18; Start 08/02/16 at 18:00 Albumin Human (Plasmanate) 500 ml @ 125 mls/hr 1X ONCE IV Last administered on 08/02/16 20:37; Start 08/02/16 at 20:30; Stop 08/03/16 at 00:29; Status DC Furosemide (Lasix) 40 mg 1X ONCE IVP Last administered on 08/03/16 00:16; Start 08/02/16 at 20:30; Stop 08/02/16 at 20:31; Status DC Acetaminophen (Tylenol) 650 mg 1X ONCE NG Last administered on 08/03/16 02:03 ; Start 08/03/16 at 02:15; Stop 08/03/16 at 02:16; Status DC Ketorolac Tromethamine 15 mg 15 mg 1X ONCE IV Last administered on 08/03/16 02:03; Start 08/03/16 at 02:15; Stop 08/03/16 at 02:16; Status DC Lactated Ringer's (Iv Lactated Ringers) 500 ml @ 500 mls/hr 1X ONCE IV Last administered on 08/03/16 10:15; Start 08/03/16 at 10:15; Stop 08/03/16 at 11:14 ; Status DC Sodium Bicarbonate 50 meq 1X ONCE IV Last administered on 08/03/16 10:44; Start 08/03/16 at 10:15; Stop 08/03/16 at 10:20; Status DC Calcium Gluconate (Calcium Gluconate) 1,000 mg 1X ONCE IVP ; Start 08/03/16 at 12:15; Stop 08/03/16 at 12:16; Status DC Active Scripts Active Reported Amlodipine Besylate 5 Mg Tablet 5 Mg PO DAILY Pradaxa (Dabigatran Etexilate Mesylate) 150 Mg Capsule 1 Cap PO BID Metoprolol Succinate ( Xl ) (Metoprolol Succinate) 100 Mg Tab.er.24h 1 Tab PO DAILY Vitals/I & O Vital Sign - Last 24 Hours 08/02/16 08/02/16 08/02/16 08/02/16 12:30 12:57 13:00 13:27 Pulse 152 153 Resp 27 28 27 B/P 115/58 111/58 Pulse Ox 92 92 90 92 O2 Delivery Ventilator Ventilator Ventilator Ventilator 08/02/16 08/02/16 08/02/16 08/02/16 13:55 14:00 14:05 14:20 Temp 99.4 99.4 Pulse 150 150 Resp 16 16 16 B/P 97/51 88/46 Pulse Ox 92 91 95 93 O2 Delivery Ventilator Ventilator Ventilator Ventilator 08/02/17 18/17 /18/17 08/02/17 14:25 15:00 15:49 16:00 Temp 103.0 102.5 103.0 102.5 Pulse 144 144 Resp 16 16 16 B/P 88/47 94/47 Pulse Ox 92 97 95 94 O2 Delivery Ventilator Ventilator Ventilator 08/02/17 18/17 18/17 17 16:00 17:00 18:00 19:00 Temp 102.4 102.4 Pulse 141 141 142 Resp 17 16 16 B/P 103/49 100/50 102/50 Pulse Ox 94 94 95 O2 Delivery Mechanical Ventilator Ventilator Ventilator Ventilator 08/02/17 08/02/17 08/02/17 17 19:50 20:00 20:00 21:00 Temp 102.5 102.5 Pulse 142 140 Resp 17 17 B/P 108/50 92/46 Pulse Ox 95 95 92 O2 Delivery Ventilator Ventilator Mechanical Ventilator Ventilator 08/02/1608/02/17 08/02/17 17 21:19 22:00 22:15 23:00 Temp 101.1 101.1 Pulse 140 142 142 Resp 17 16 B/P 94/49 102/50 98/48 Pulse Ox 94 94 95 O2 Delivery Ventilator Ventilator Ventilator 08/03/16 08/03/16 08/03/16 08/03/16 00:00 00:00 00:05 01:00 Temp 103.2 103.2 Pulse 142 142 Resp 17 18 B/P 94/48 88/50 Pulse Ox 95 100 95 O2 Delivery Mechanical Ventilator Ventilator Ventilator Ventilator 08/03/16 08/03/16 08/03/16 08/03/16 01:25 02:00 03:00 03:30 Temp 104.2 104.8 104.2 104.8 Pulse 142 140 Resp 17 17 B/P 118/58 102/56 Pulse Ox 93 94 97 99 O2 Delivery Ventilator Ventilator Ventilator Ventilator 08/03/16 08/03/16 08/03/16 08/03/16 04:00 04:00 05:00 05:15 Temp 102.7 98.8 102.7 98.8 Pulse 136 132 Resp 17 16 B/P 102/58 112/64 Pulse Ox 99 99 98 O2 Delivery Ventilator Mechanical Ventilator Ventilator Ventilator 08/03/16 08/03/16 08/03/16 08/03/16 06:05 07:00 07:50 08:00 Temp 97.7 97.7 97.7 97.7 97.7 97.7 Pulse 130 90 90 Resp B/P 128/70 120/64 116/58 Pulse Ox 98 98 97 97 O2 Delivery Ventilator Ventilator Ventilator Ventilator 08/03/16 08/03/16 08/03/16 08/03/16 09:00 09:14 09:37 10:00 Temp 97.7 100.4 97.7 100.4 Pulse 90 93 92 Resp B/P 142/68 111/52 108/52 Pulse Ox 95 98 O2 Delivery Ventilator Mechanical Ventilator Ventilator 08/03/16 08/03/16 10:09 11:37 Pulse Ox 97 97 O2 Delivery Ventilator Ventilator Intake and Output 08/02/16 08/02/16 08/03/16 15:00 23:00 07:00 Intake Total 820 ml 2321.5 ml 1356 ml Output Total 410 ml 215 ml 175 ml Balance 410 ml 2106.5 ml 1181 ml MILA JEWELL MD Aug 03, 2016 12:25
[2016-08-03] MEDS ORDERED: SODIUM BICARBONATE VIAL 150 MEQ in IV DEXTROSE 5 %-0.45 % NACL 1,000 ML IV PRN (12:30)
[2016-08-03] MEDS ORDERED: MAGNESIUM SULFATE 2GM 50 ML IV PRN (12:30)
--- NOTE | 2016-08-03 12:33 | PDOC2 ---
CONSULT Date of Consult Date of Consult DATE: 08/03/16 TIME: 12:23 Reason for Consult Reason for Consult: JAKE Referring Physician Referring Physician: Dr Louis Identification/Chief Complaint Chief Complaint CP, AMI Problems: Source Source: Caregiver, Chart review History of Present Illness Reason for Visit: as dictated Past Medical History Cardiovascular: AFIB, CAD, HTN, Other (PVD) Past Surgical History Past Surgical History: CABG (this admission) Family History Family History: Heart Disease Social History 1 pack per day (40-50) ALCOHOL: rare Drugs: None Lives: with Family Domestic Violence: Neg Current Problem List Problem List Problems Medical Problems: (1) CAD (coronary artery disease), [place] coronary artery Status: Acute (2) Chest pain Status: Acute (3) STEMI (ST elevation myocardial infarction) Status: Acute Current Medications Current Medications Current Medications Nitroglycerin 0.4 mg 0.4 mg PRN Q5MIN PRN SL CP RATING > 1/10; Start 07/20/16 at 09:45; Stop 07/20/16 at 15:05; Status DC Nitroglycerin/ Dextrose (Nitroglycerin Drip) 250 ml @ 3 mls/hr 1X ONCE IV Last administered on 07/20/16 10:02; Start 07/20/16 at 10:30; Stop 07/23/16 at 21: 49; Status DC Morphine Sulfate 2 mg PRN Q15MIN PRN IV/SQ PAIN GREATER THAN 3/10; Start at 09:45; Stop 07/21/16 at 09:44; Status DC Ondansetron HCl (Zofran) 4 mg PRN Q8HRS PRN IV NAUSEA/VOMITING; Start 07/20/16 at 12:30; Stop 07/20/16 at 13:36; Status DC Morphine Sulfate 2 mg 2 mg PRN Q2HR PRN IV PAIN; Start 07/20/16 at 12:30; Stop 07/21/16 at 12:29; Status DC Heparin Sodium/ Dextrose 500 ml @ 0 mls/hr CONT PRN IV . Last administered on 10:32; Start 07/20/16 at 13:00; Stop 07/21/16 at 14:50; Status DC Metoprolol Tartrate (Lopressor) 5 mg Q6HRS IVP ; Start 07/20/16 at 13:00; Stop at 14:53; Status DC Aspirin (Ecotrin) 325 mg [id number] PO Last administered on 07/21/16 08:11; Start 07/20/16 at 13:00; Stop 07/21/16 at 17:20; Status DC Ondansetron HCl (Zofran) 4 mg PRN Q6HRS PRN IV NAUSEA/VOMITING; Start 07/20/16 at 13:35; Stop 07/26/16 at 11:41; Status DC Acetaminophen (Tylenol) 500 mg PRN Q6HRS PRN PO MILD PAIN / TEMP Last administered on 07/29/16 09:55; Start 07/20/16 at 13:45; Stop 07/29/16 at 13:38 ; Status DC Docusate Sodium (Colace) 100 mg DAILY PO Last administered on 07/29/16 09:54; Start 07/20/16 at 15:00; Stop 07/29/16 at 10:03; Status DC Iohexol 100 ml 100 ml STK-MED ONCE .ROUTE ; Start 07/20/16 at 12:40; Stop at 13:44; Status DC Heparin Sodium/ Sodium Chloride 1,000 ml @ As Directed STK-MED ONCE .ROUTE ; Start 07/20/16 at 12:41; Stop 07/20/16 at 13:44; Status DC Lidocaine HCl 20 ml STK-MED ONCE .ROUTE ; Start 07/20/16 at 12:41; Stop 07/20/16 at 13:44; Status DC Fentanyl Citrate (Fentanyl 2ml Vial) 100 mcg STK-MED ONCE .ROUTE ; Start at 13:42; Stop 07/20/16 at 13:45; Status DC Midazolam HCl (Versed) 2 mg STK-MED ONCE .ROUTE ; Start 07/20/16 at 13:42; Stop 07/20/16 at 13:45; Status DC Heparin Sodium/ Sodium Chloride 1,000 unit 1X ONCE IART Last administered on 14:29; Start 07/20/16 at 14:00; Stop 07/20/16 at 14:01; Status DC Heparin Sodium/ Sodium Chloride 1,000 unit 1X ONCE IART Last administered on 14:29; Start 07/20/16 at 14:00; Stop 07/20/16 at 14:01; Status DC Midazolam HCl (Versed) 2 mg 1X ONCE IV Last administered on 07/20/16 14:28; Start 07/20/16 at 14:00; Stop 07/20/16 at 14:01; Status DC Fentanyl Citrate (Fentanyl 2ml Vial) 100 mcg 1X ONCE IV Last administered on 14:28; Start 07/20/16 at 14:00; Stop 07/20/16 at 14:01; Status DC Iohexol (Omnipaque 300 Mg/ml) 100 ml 1X ONCE IART Last administered on 14:29; Start 07/20/16 at 14:00; Stop 07/20/16 at 14:01; Status DC Lidocaine HCl 20 ml 1X ONCE IJ Last administered on 07/20/16 14:29; Start 07/20 at 14:00; Stop 07/20/16 at 14:01; Status DC Midazolam HCl (Versed) 2 mg STK-MED ONCE .ROUTE ; Start 07/20/16 at 14:15; Stop 07/20/16 at 14:16; Status DC Sodium Chloride 3 ml 3 ml QSHIFT PRN IV AFTER MEDS AND BLOOD DRAWS; Start at 14:45; Stop 07/29/16 at 13:51; Status DC Sodium Chloride (Iv Sodium Chloride 0.9% 1000ml Bag) 1,000 ml @ 60 mls/hr [id number] IV Last administered on 07/20/16 14:44; Start 07/20/16 at 14:44; Stop at 00:43; Status DC Metoprolol Tartrate (Lopressor) 12.5 mg BID PO ; Start 07/20/16 at 21:00; Stop at 21:00; Status DC Lisinopril (Prinivil) 5 mg DAILY PO Last administered on 07/20/16 16:25; Start 07/20/16 at 15:00; Stop 07/20/16 at 17:21; Status DC Atorvastatin Calcium (Lipitor) 20 mg QHS PO Last administered on 07/20/16 20:33 ; Start 07/20/16 at 21:00; Stop 07/21/16 at 08:11; Status DC Nitroglycerin (Nitrostat) 0.4 mg PRN Q5MIN PRN SL CHEST PAIN Last administered on 07/25/16 04:55; Start 07/20/16 at 14:45; Stop 07/26/16 at 11:41; Status DC Hydralazine HCl (Apresoline) 10 mg PRN Q4HRS PRN IVP ELEVATED BP, SEE COMMENTS Last administered on 07/31/16 10:58; Start 07/20/16 at 17:15; Stop 07/31/16 at 13:31; Status DC Metoprolol Tartrate (Lopressor) 50 mg BID PO Last administered on 07/22/16 08: 31; Start 07/20/16 at 21:00; Stop 07/22/16 at 19:03; Status DC Alprazolam (Xanax) 0.25 mg PRN Q8HRS PRN PO ANXIETY / AGITATION Last administered on 07/24/16 21:34; Start 07/20/16 at 17:30; Stop 07/29/16 at 13:38; Status DC Heparin Sodium (Porcine) 2050 unit 2,050 unit PRN Q6HRS PRN IV FOR UFH LEVEL LESS THAN 0.2 Last administered on 07/21/16 04:24; Start 07/20/16 at 19:45; Stop 07/26/16 at 08:55; Status DC Heparin Sodium/ Dextrose 500 ml @ 19.4 mls/hr CONT PRN IV SEE I/O RECORD; Start 07/20/16 at 19:45; Stop 07/21/16 at 16:24; Status DC Heparin Sodium (Porcine) (Heparin Sodium) 2,050 unit PRN Q6HRS PRN IV FOR UFH LEVEL LESS THAN 0.2; Start 07/20/16 at 19:45; Status UNV Atorvastatin Calcium (Lipitor) 40 mg QHS PO Last administered on 08/02/16 21: 18; Start 07/21/16 at 21:00 Iodixanol (Visipaque 320) 200 ml STK-MED ONCE .ROUTE ; Start 07/20/16 at 14:00; Stop 07/21/16 at 08:26; Status DC Zolpidem Tartrate (Ambien) 5 mg PRN QHS PRN PO INSOMNIA, MAY REPEAT IN 1HR; Start 07/21/16 at 15:30; Stop 07/29/16 at 13:38; Status DC Metoprolol Tartrate 25 mg 25 mg 1X ONCE PO ; Start 07/22/16 at 06:00; Stop at 06:02; Status DC Cefazolin Sodium/ Dextrose 50 ml @ 100 mls/hr 1X ONCE IV ; Start 07/22/16 at 06 :00; Stop 07/22/16 at 06:29; Status DC Heparin Sodium/ Dextrose 500 ml @ 0 mls/hr CONT PRN IV SEE I/O RECORD Last administered on 07/24/16 01:40; Start 07/21/16 at 16:30; Stop 07/26/16 at 08:55; Status DC Lidocaine HCl 2 ml 2 ml 1X PRN PRN ID IV START; Start 07/25/16 at 06:00; Stop 07/26/16 at 05:59; Status Cancel Lactated Ringer's (Iv Lactated Ringers) 1,000 ml @ 0 mls/hr Q0M IV Last administered on 07/25/16 07:30; Start 07/25/16 at 06:00; Stop 07/25/16 at 17:59 ; Status DC Fentanyl Citrate (Fentanyl 2ml Vial) 25 mcg PRN Q5MIN PRN IV Acute Pain; Start 07/22/16 at 09:15; Stop 07/23/16 at 09:14; Status DC Morphine Sulfate 2 mg PRN Q10MIN PRN IV Mild Pain; Start 07/22/16 at 09:15; Stop 07/23/16 at 09:14; Status DC Hydromorphone HCl (Dilaudid) 0.4 mg PRN Q10MIN PRN IV Moderate to severe pain; Start 07/22/16 at 09:15; Stop 07/23/16 at 09:14; Status DC Ondansetron HCl (Zofran) 4 mg PRN Q6HRS PRN IV Nausea, 1st Choice; Start at 09:15; Stop 07/23/16 at 09:14; Status DC Prochlorperazine Edisylate (Compazine) 5 mg PRN Q6HRS PRN IV Nausea/Vomiting, 2nd Choice; Start 07/22/16 at 09:15; Stop 07/23/16 at 09:14; Status DC Ondansetron HCl (Zofran) 4 mg PRN Q6HRS PRN IV NAUSEA/VOMITING; Start 07/25/16 at 07:00; Stop 07/26/16 at 06:59; Status DC Fentanyl Citrate (Fentanyl 2ml Vial) 25 mcg PRN Q5MIN PRN IV MILD PAIN; Start 07/25/16 at 07:00; Stop 07/26/16 at 06:59; Status DC Fentanyl Citrate (Fentanyl 2ml Vial) 50 mcg PRN Q5MIN PRN IV MODERATE PAIN; Start 07/25/16 at 07:00; Stop 07/26/16 at 06:59; Status DC Morphine Sulfate 1 mg 1 mg PRN Q10MIN PRN IV SEVERE PAIN; Start 07/25/16 at 07: 00; Stop 07/25/16 at 20:28; Status DC Lactated Ringer's (Iv Lactated Ringers) 1,000 ml @ 0 mls/hr Q0M IV ; Start 01/31 at 07:00; Stop 07/25/16 at 18:59; Status Cancel Lidocaine HCl 2 ml PRN 1X PRN ID PRIOR TO IV START Last administered on 07:16; Start 07/25/16 at 07:00; Stop 07/26/16 at 06:59; Status DC Hydromorphone HCl (Dilaudid) 0.5 mg PRN Q10MIN PRN IV SEV PAIN, Second choice; Start 07/25/16 at 07:00; Stop 07/26/16 at 06:59; Status DC Prochlorperazine Edisylate 5 mg 5 mg PACU PRN PRN IV NAUSEA, MRX1; Start at 07:00; Stop 07/26/16 at 06:59; Status DC Cefazolin Sodium/ Dextrose (Ancef 2gm Premix) 50 ml @ 100 mls/hr 1X ONCE IV Last administered on 07/25/16 08:12; Start 07/25/16 at 06:00; Stop 07/25/16 at 06:29; Status DC Metoprolol Tartrate (Lopressor) 25 mg 1X ONCE PO ; Start 07/25/16 at 06:00; Stop 07/25/16 at 06:00; Status DC Metoprolol Tartrate (Lopressor) 2.5 mg 1X ONCE IVP Last administered on 16:30; Start 07/22/16 at 16:30; Stop 07/22/16 at 16:31; Status DC Digoxin (Lanoxin) 250 mcg 1X ONCE IV ; Start 07/22/16 at 18:30; Stop 07/22/16 at 18:42; Status DC Digoxin (Lanoxin) 500 mcg 1X ONCE IV Last administered on 07/22/16 18:47; Start 07/22/16 at 18:45; Stop 07/22/16 at 18:46; Status DC Metoprolol Tartrate (Lopressor) 75 mg BID PO Last administered on 07/24/16 21: 30; Start 07/22/16 at 21:00; Stop 07/25/16 at 13:12; Status DC Nitroglycerin 0.4 mg 0.4 mg PRN Q5MIN PRN SL CHEST PAIN; Start 07/23/16 at 12:00 ; Status UNV Heparin Sodium (Porcine) 02770 unit/Lactated Ringer's 1,020 ml @ 1,020 mls/hr 1X PERIOP ONCE IRR Last administered on 07/25/16 08:46; Start 07/25/16 at 06: 00; Stop 07/25/16 at 06:59; Status DC Potassium Chloride 70 meq/ Sodium Bicarbonate 12.5 meq/Lidocaine HCl 24 ml/ Parenteral Electrolytes 571.5 ml @ 571.5 mls/ hr 1X PERIOP ONCE IRR ; Start at 06:00; Stop 07/25/16 at 06:59; Status DC Potassium Chloride/Sodium Bicarbonate/ Parenteral Electrolytes (Isolyte S) 520 ml @ 520 mls/hr 1X PERIOP ONCE IRR ; Start 07/25/16 at 06:00; Stop 07/25/16 at 06:59; Status DC Etomidate (Amidate) 20 mg STK-MED ONCE IV ; Start 07/25/16 at 06:08; Stop at 06:09; Status DC Phenylephrine HCl (-Synephrine Inj) 10 mg STK-MED ONCE .ROUTE ; Start at 06:08; Stop 07/25/16 at 06:09; Status DC Aminocaproic Acid (Amicar) 5,000 mg STK-MED ONCE IV ; Start 07/25/16 at 06:08; Stop 07/25/16 at 06:09; Status DC Heparin Sodium (Porcine) (Heparin Sodium) 10,000 unit STK-MED ONCE .ROUTE ; Start 07/25/16 at 06:10; Stop 07/25/16 at 06:11; Status DC Rocuronium [place] (Zemuron) 100 mg STK-MED ONCE .ROUTE ; Start 07/25/16 at 06: 11; Stop 07/25/16 at 06:12; Status DC Morphine Sulfate 4 mg STK-MED ONCE .ROUTE ; Start 07/25/16 at 06:59; Stop at 07:00; Status DC Morphine Sulfate 4 mg 4 mg 1X ONCE IV ; Start 07/25/16 at 07:15; Stop 07/25/16 at 07:16; Status DC Cefazolin Sodium/ Sodium Chloride (Ancef/Iv Sodium Chloride 0.9% 500ml Bag) 500 ml @ 500 mls/hr 1X PERIOP ONCE IRR Last administered on 07/25/16 08:46; Start 07/25/16 at 07:15; Stop 07/25/16 at 08:14; Status DC Cellulose 1 each STK-MED ONCE .ROUTE Last administered on 07/25/16 08:46; Start 07/25/16 at 07:07; Stop 07/25/16 at 07:08; Status DC Vancomycin HCl (Vanco) 10 gm STK-MED ONCE .ROUTE Last administered on 08:46; Start 07/25/16 at 07:07; Stop 07/25/16 at 07:08; Status DC Papaverine HCl 60 mg STK-MED ONCE .ROUTE Last administered on 07/25/16 08:46; Start 07/25/16 at 07:07; Stop 07/25/16 at 07:08; Status DC Aspirin (Aspirin) 300 mg STK-MED ONCE .ROUTE Last administered on 07/25/16 17: 25; Start 07/25/16 at 07:08; Stop 07/25/16 at 07:09; Status DC Sodium Chloride (Sodium Chloride) 50 ml STK-MED ONCE IJ Last administered on 08:46; Start 07/25/16 at 07:08; Stop 07/25/16 at 07:09; Status DC Midazolam HCl (Versed) 2 mg STK-MED ONCE .ROUTE ; Start 07/25/16 at 07:15; Stop 07/25/16 at 07:16; Status DC Ephedrine Sulfate 50 mg 50 mg STK-MED ONCE IV ; Start 07/25/16 at 07:16; Stop at 07:17; Status DC Nitroglycerin/ Dextrose (Nitroglycerin Drip) 250 ml @ As Directed STK-MED ONCE IV ; Start 07/25/16 at 07:16; Stop 07/25/16 at 07:17; Status DC Midazolam HCl (Versed) 2 mg STK-MED ONCE .ROUTE ; Start 07/25/16 at 07:18; Stop 07/25/16 at 07:19; Status DC Fentanyl Citrate (Fentanyl 2ml Vial) 100 mcg STK-MED ONCE .ROUTE ; Start at 07:19; Stop 07/25/16 at 07:20; Status DC Sufentanil Citrate (Sufenta) 100 mcg STK-MED ONCE .ROUTE ; Start 07/25/16 at 07: 19; Stop 07/25/16 at 07:20; Status DC Midazolam HCl (Versed) 2 mg 1X ONCE IV ; Start 07/25/16 at 08:00; Stop at 08:01; Status DC Dexamethasone Sodium Phosphate (Decadron) 20 mg STK-MED ONCE .ROUTE ; Start 01/31 at 07:58; Stop 07/25/16 at 07:59; Status DC Rocuronium [place] (Zemuron) 100 mg STK-MED ONCE .ROUTE ; Start 07/25/16 at 08: 52; Stop 07/25/16 at 08:53; Status DC Sufentanil Citrate (Sufenta) 100 mcg STK-MED ONCE .ROUTE ; Start 07/25/16 at 08: 53; Stop 07/25/16 at 08:54; Status DC Protamine Sulfate 250 mg STK-MED ONCE IV ; Start 07/25/16 at 10:43; Stop at 10:44; Status DC Rocuronium [place] 100 mg 100 mg STK-MED ONCE .ROUTE ; Start 07/25/16 at 10:52; Stop 07/25/16 at 10:53; Status DC Albumin Human 0 ml @ As Directed STK-MED ONCE IV ; Start 07/25/16 at 10:53; Stop 07/25/16 at 10:54; Status DC Amiodarone HCl/ Dextrose (Cordarone) 518 ml @ 34.53 mls/ hr 1X ONCE IV Last administered on 07/25/16t 18:52; Start 07/25/16 at 11:30; Stop 07/26/16 at 02:30 ; Status DC Sodium Bicarbonate 50 meq STK-MED ONCE .ROUTE ; Start 07/25/16 at 11:35; Stop at 11:36; Status DC Protamine Sulfate 50 mg STK-MED ONCE IV ; Start 07/25/16 at 12:31; Stop at 12:32; Status DC Amiodarone HCl (Cordarone) 150 mg STK-MED ONCE .ROUTE ; Start 07/25/16 at 12:37 ; Stop 07/25/16 at 12:38; Status DC Isoflurane (Isoflurane) 90 ml STK-MED ONCE IH ; Start 07/25/16 at 12:42; Stop at 12:43; Status DC Lidocaine HCl (Lidocaine HCl 2% Abboject) 100 mg STK-MED ONCE .ROUTE ; Start 01/31 at 13:07; Stop 07/25/16 at 13:08; Status DC Mannitol (Mannitol) 12.5 g STK-MED ONCE .ROUTE ; Start 07/25/16 at 13:07; Stop 07/25/16 at 13:08; Status DC Calcium Chloride 1,000 mg STK-MED ONCE IV ; Start 07/25/16 at 13:07; Stop at 13:08; Status DC Sodium Bicarbonate 50 meq 50 meq STK-MED ONCE .ROUTE ; Start 07/25/16 at 13:07; Stop 07/25/16 at 13:08; Status DC Albumin Human (Albuminar) 100 ml @ As Directed STK-MED ONCE IV ; Start at 13:07; Stop 07/25/16 at 13:08; Status DC Magnesium Sulfate 5 gm STK-MED ONCE .ROUTE ; Start 07/25/16 at 13:08; Stop 07/25 at 13:09; Status DC Heparin Sodium (Porcine) 88809 unit 30,000 unit STK-MED ONCE .ROUTE ; Start 01/31 at 13:08; Stop 07/25/16 at 13:09; Status DC Clevidipine (Cleviprex) 100 ml @ 0 mls/hr CONT PRN IV PER PROTOCOL; Start 07/25 at 13:45; Stop 07/26/16 at 11:29; Status DC Heparin Sodium (Porcine) 87300 unit 30,000 unit STK-MED ONCE .ROUTE ; Start 01/31 at 13:39; Stop 07/25/16 at 13:40; Status DC Epinephrine HCl/ Sodium Chloride (Adrenalin/Iv Sodium Chloride 0.9% 250ml) 254 ml @ 3.81 mls/hr CONT PRN IV SEE I/O RECORD; Start 07/25/16 at 13:45 Epinephrine HCl (Epinephrine Syringe) 1 mg STK-MED ONCE .ROUTE ; Start 07/25/16 at 13:52; Stop 07/25/16 at 13:53; Status DC Rocuronium [place] (Zemuron) 100 mg STK-MED ONCE .ROUTE ; Start 07/25/16 at 13: 57; Stop 07/25/16 at 13:58; Status DC Sodium Bicarbonate 50 meq 50 meq STK-MED ONCE .ROUTE ; Start 07/25/16 at 14:04; Stop 07/25/16 at 14:05; Status DC Procainamide HCl/ Dextrose (Pronestyl) 520 ml @ 15.6 mls/hr CONT PRN IV SEE I/ O RECORD; Start 07/25/16 at 14:30; Stop 07/28/16 at 15:22; Status DC Sodium Bicarbonate 50 meq STK-MED ONCE .ROUTE ; Start 07/25/16 at 14:31; Stop at 14:32; Status DC Sodium Bicarbonate 50 meq STK-MED ONCE .ROUTE ; Start 07/25/16 at 14:31; Stop at 14:32; Status DC Protamine Sulfate 50 mg STK-MED ONCE IV ; Start 07/25/16 at 15:13; Stop at 15:14; Status DC Protamine Sulfate 50 mg STK-MED ONCE IV ; Start 07/25/16 at 15:13; Stop at 15:14; Status DC Isoflurane 90 ml 90 ml STK-MED ONCE IH ; Start 07/25/16 at 15:13; Stop 07/25/16 at 15:14; Status DC Dobutamine HCl/ Dextrose 250 ml @ As Directed STK-MED ONCE IV ; Start 07/25/16 at 15:17; Stop 07/25/16 at 15:18; Status DC Iohexol 100 ml 100 ml STK-MED ONCE .ROUTE Last administered on 07/25/16t 15:39 ; Start 07/25/16 at 15:28; Stop 07/25/16 at 15:29; Status DC Norepinephrine Bitartrate 8 mg/ Sodium Chloride 258 ml @ 1.93 mls/hr 1X ONCE IV Last administered on 07/25/16t 18:53; Start 07/25/16 at 16:00; Stop at 08:04; Status DC Albumin Human (Plasmanate) 1,000 ml @ As Directed STK-MED ONCE IV ; Start 07/25 at 16:11; Stop 07/25/16 at 16:12; Status DC Heparin Sodium (Porcine) (Heparin Sodium) 10,000 unit STK-MED ONCE .ROUTE ; Start 07/25/16 at 16:19; Stop 07/25/16 at 16:20; Status DC Lidocaine HCl (Lidocaine HCl 2% Abboject) 100 mg STK-MED ONCE .ROUTE ; Start 01/31 at 16:19; Stop 07/25/16 at 16:20; Status DC Mannitol (Mannitol) 12.5 g STK-MED ONCE .ROUTE ; Start 07/25/16 at 16:19; Stop 07/25/16 at 16:20; Status DC Calcium Chloride 1,000 mg STK-MED ONCE IV ; Start 07/25/16 at 16:19; Stop at 16:20; Status DC Sodium Bicarbonate 50 meq STK-MED ONCE .ROUTE ; Start 07/25/16 at 16:19; Stop at 16:20; Status DC Magnesium Sulfate 5 gm STK-MED ONCE .ROUTE ; Start 07/25/16 at 16:19; Stop 07/25 at 16:20; Status DC Heparin Sodium (Porcine) (Heparin Sodium) 10,000 unit STK-MED ONCE .ROUTE ; Start 07/25/16 at 16:20; Stop 07/25/16 at 16:21; Status DC Lidocaine HCl (Lidocaine HCl 2% Abboject) 100 mg STK-MED ONCE .ROUTE ; Start 01/31 at 16:20; Stop 07/25/16 at 16:21; Status DC Aminocaproic Acid (Amicar) 5,000 mg STK-MED ONCE IV ; Start 07/25/16 at 16:20; Stop 07/25/16 at 16:21; Status DC Mannitol (Mannitol) 12.5 g STK-MED ONCE .ROUTE ; Start 07/25/16 at 16:20; Stop 07/25/16 at 16:21; Status DC Sodium Bicarbonate 50 meq 50 meq STK-MED ONCE .ROUTE ; Start 07/25/16 at 16:20; Stop 07/25/16 at 16:21; Status DC Albumin Human (Albuminar) 100 ml @ As Directed STK-MED ONCE IV ; Start at 16:20; Stop 07/25/16 at 16:21; Status DC Rocuronium [place] (Zemuron) 50 mg STK-MED ONCE .ROUTE ; Start 07/25/16 at 16:33 ; Stop 07/25/16 at 16:34; Status DC Rocuronium [place] (Zemuron) 50 mg STK-MED ONCE .ROUTE ; Start 07/25/16 at 16:33 ; Stop 07/25/16 at 16:34; Status DC Protamine Sulfate 50 mg STK-MED ONCE IV ; Start 07/25/16 at 16:34; Stop at 16:35; Status DC Sodium Bicarbonate 50 meq STK-MED ONCE .ROUTE ; Start 07/25/16 at 16:36; Stop at 16:37; Status DC Calcium Chloride 1,000 mg STK-MED ONCE IV ; Start 07/25/16 at 16:41; Stop at 16:42; Status DC Epinephrine HCl (Epinephrine Syringe) 1 mg STK-MED ONCE .ROUTE ; Start 07/25/16 at 16:41; Stop 07/25/16 at 16:42; Status DC Sodium Bicarbonate 50 meq STK-MED ONCE .ROUTE ; Start 07/25/16 at 16:52; Stop at 16:53; Status DC Sodium Bicarbonate 50 meq STK-MED ONCE .ROUTE ; Start 07/25/16 at 16:52; Stop at 16:53; Status DC Sodium Bicarbonate 50 meq STK-MED ONCE .ROUTE ; Start 07/25/16 at 16:52; Stop at 16:53; Status DC Vasopressin (Vasostrict) 20 unit STK-MED ONCE .ROUTE ; Start 07/25/16 at 16:54; Stop 07/25/16 at 16:55; Status DC Famotidine (Pepcid) 20 mg STK-MED ONCE .ROUTE ; Start 07/25/16 at 16:56; Stop at 16:57; Status DC Dexamethasone Sodium Phosphate (Decadron) 20 mg STK-MED ONCE .ROUTE ; Start 01/31 at 16:56; Stop 07/25/16 at 16:57; Status DC Diphenhydramine HCl 50 mg 50 mg STK-MED ONCE .ROUTE ; Start 07/25/16 at 16:56; Stop 07/25/16 at 16:57; Status DC Vasopressin/ Dextrose (Vasostrict) 102 ml @ 6 mls/hr CONT PRN IV SEE I/O RECORD Last administered on 08/02/16 16:12; Start 07/25/16 at 17:15 Sodium Bicarbonate 50 meq STK-MED ONCE .ROUTE ; Start 07/25/16 at 17:24; Stop at 17:25; Status DC Sodium Bicarbonate 50 meq 50 meq STK-MED ONCE .ROUTE ; Start 07/25/16 at 17:24; Stop 07/25/16 at 17:25; Status DC Cefazolin Sodium/ Dextrose (Ancef 2gm Premix) 50 ml @ As Directed STK-MED ONCE IV ; Start 07/25/16 at 17:32; Stop 07/25/16 at 17:33; Status DC Sodium Chloride 3 ml 3 ml PRN Q12HR PRN IV AFTER MEDS AND BLOOD DRAWS; Start at 17:30; Stop 07/29/16 at 13:38; Status DC Lactated Ringer's 1,000 ml @ 15 mls/hr Q24H IV Last administered on 07/29/16t 16:45; Start 07/25/16 at 17:30; Stop 07/31/16 at 15:33; Status DC Insulin Human Regular/Sodium Chloride (Novolin R Vial/ Iv Normal Saline 150ml) 151.5 ml @ 0 mls/hr CONT PRN PRN IV SEE I/O RECORD Last administered on 03:03; Start 07/25/16 at 17:30; Stop 07/29/16 at 13:51; Status DC Dextrose 25 gm 25 gm PRN Q15MIN PRN IV LOW BLOOD SUGAR; Start 07/25/16 at 17:30 ; Stop 07/29/16 at 13:51; Status DC Dopamine HCl/ Dextrose 250 ml @ 0 mls/hr CONT PRN PRN IV SEE I/O RECORD; Start 07/25/16 at 17:30; Stop 07/26/16 at 11:41; Status DC Amiodarone HCl/ Dextrose (Cordarone) 518 ml @ 33.33 mls/ hr CONT PRN PRN IV SEE COMMENTS; Start 07/25/16 at 17:30; Status UNV Info 1 ea CONT PRN PRN MC SEE COMMENTS; Start 07/25/16 at 17:30 Info 1 ea 1 ea CONT PRN PRN MC SEE COMMENTS; Start 07/25/16 at 17:30 Magnesium Sulfate/ Dextrose (Magnesium Sulfate PREMIX 1GM) 100 ml @ 100 mls/hr PRN DAILY PRN IV FOR MAG < 2.2 Last administered on 07/27/16 10:59; Start 01/31 at 17:30 Famotidine (Pepcid) 20 mg BID IVP Last administered on 08/03/16 09:15; Start 07/25/16 at 21:00 Metoclopramide HCl (Reglan) 10 mg PRN Q6HRS PRN IV NAUSEA/VOMITING Last administered on 07/29/16 09:54; Start 07/25/16 at 17:30 Morphine Sulfate 2 mg PRN Q1HR PRN IV PAIN Last administered on 07/28/16 14:21 ; Start 07/25/16 at 17:30; Stop 07/29/16 at 13:38; Status DC Acetaminophen (Tylenol) 650 mg PRN Q4HRS PRN PO MILD PAIN / TEMP; Start at 17:30; Stop 07/29/16 at 13:38; Status DC Acetaminophen (Acetaminophen Supp) 650 mg PRN Q4HRS PRN [place] MILD PAIN / TEMP Last administered on 08/03/16 01:04; Start 07/25/16 at 17:30 Meperidine HCl 12.5 mg 12.5 mg PRN Q15MIN PRN IV SHIVERING; Start 07/25/16 at 17:30; Stop 07/29/16 at 13:38; Status DC Propofol (Diprivan) 100 ml @ 0 mls/hr CONT PRN PRN IV POSTOP SEDATION UNTIL EXTUBATE; Start 07/25/16 at 17:30; Stop 07/28/16 at 15:22; Status DC Aspirin (Ecotrin) 325 mg [id number] PO Last administered on 07/29/16 09:54; Start 07/26/16 at 08:00; Stop 07/29/16 at 09:59; Status DC Aspirin (Aspirin) 300 mg PRN DAILY PRN [place] IF UNABLE TO TAKE PO; Start 07/25/16 at 17:30; Stop 07/26/16 at 12:00; Status DC Acetaminophen/ Hydrocodone Bitart (Lortab 5/325) 1 tab PRN Q4HRS PRN PO MILD PAIN; Start 07/25/16 at 17:30 Acetaminophen/ Hydrocodone Bitart 2 tab 2 tab PRN Q4HRS PRN PO MODERATE PAIN, SEVERE PAIN; Start 07/25/16 at 17:30 Cefazolin Sodium/ Dextrose 50 ml @ 100 mls/hr Q8H IV ; Start 07/25/16 at 18:00 ; Stop 07/25/16 at 21:42; Status DC Albumin Human 250 ml @ 62.5 mls/hr 1X ONCE IV Last administered on 07/27/16 17:52; Start 07/25/16 at 17:30; Stop 07/25/16 at 21:29; Status DC Midazolam HCl 100 ml @ As Directed STK-MED ONCE IV ; Start 07/25/16 at 18:06; Stop 07/25/16 at 18:07; Status DC Midazolam HCl 100 ml @ 0 mls/hr CONT PRN IV SEE I/O RECORD Last administered on 07/25/16 18:56; Start 07/25/16 at 18:15; Stop 07/26/16 at 08:59; Status DC Vancomycin HCl 1 gm/Sodium Chloride 250 ml @ 250 mls/hr 1X ONCE IV Last administered on 07/25/16 20:56; Start 07/25/16 at 18:15; Stop 07/25/16 at 19:14 ; Status DC Piperacillin Sod/ Tazobactam Sod/ Sodium Chloride (Zosyn/Iv Sodium Chloride 0.9 % 50ml) 50 ml @ 100 mls/hr Q6HRS IV Last administered on 07/31/16 05:32; Start 07/25/16 at 18:15; Stop 07/31/16 at 10:25; Status DC Midazolam HCl (Versed) 2 mg PRN Q20MIN PRN IV SEDATION; Start 07/25/16 at 18:15 ; Stop 07/25/16 at 18:39; Status DC Midazolam HCl 5 mg 5 mg PRN Q30MIN PRN IV SEDATION; Start 07/25/16 at 18:15; Stop 07/25/16 at 18:39; Status DC Vecuronium [place] 100 mg/ Dextrose 100 ml @ 0 mls/hr 1X ONCE IV Last administered on 07/25/16 19:43; Start 07/25/16 at 18:15; Stop 07/25/16 at 18:17 ; Status DC Midazolam HCl 100 ml @ 0 mls/hr CONT PRN IV SEE I/O RECORD Last administered on 07/28/16 19:40; Start 07/25/16 at 18:45 Dobutamine HCl/ Dextrose 250 ml @ 0 mls/hr CONT PRN IV SEE I/O RECORD Last administered on 07/29/16 03:10; Start 07/25/16 at 18:45; Stop 07/29/16 at 13:38 ; Status DC Potassium Chloride 50 ml @ 50 mls/hr Q1H IV Last administered on 07/25/16 22: 58; Start 07/25/16 at 21:00; Stop 07/25/16 at 23:59; Status DC Cefazolin Sodium/ Dextrose 50 ml @ 100 mls/hr Q8H IV Last administered on 07/27 05:34; Start 07/25/16 at 22:00; Stop 07/27/16 at 06:29; Status DC Heparin Sodium (Porcine) 59810 unit/Dextrose 512.5 ml @ 0 mls/hr Q0M ONCE IV Last administered on 07/25/16 22:21; Start 07/25/16 at 22:15; Stop 07/25/16 at 22:16; Status DC Vecuronium [place]/Dextrose (Norcuron) 100 ml @ 0 mls/hr CONT PRN IV SEE I/O RECORD Last administered on 07/26/16 01:07; Start 07/26/16 at 00:45; Stop 07/29 at 13:38; Status DC Dextrose 25 gm 25 gm 1X ONCE IV Last administered on 07/26/16 01:08; Start at 01:00; Stop 07/26/16 at 01:18; Status DC Amiodarone HCl/ Dextrose (Cordarone) 259 ml @ 17.26 mls/ hr CONT PRN IV SEE I/ O RECORD Last administered on 07/30/16 13:02; Start 07/26/16 at 06:45; Stop at 15:33; Status DC Cefazolin Sodium/ Dextrose 2 gm 2 gm STK-MED ONCE IV ; Start 07/25/16 at 11:00; Stop 07/26/16 at 08:53; Status DC Lactated Ringer's 500 ml @ 5,000 mls/hr PRN Q10MIN PRN IV CVP <14; Start 07/26 at 10:00; Stop 07/29/16 at 13:38; Status DC Fentanyl Citrate (Fentanyl 600 Mcg/30 ml HAT FORMING MACHINE OPERATOR) 30 ml @ 0 mls/hr CONT PRN IV PROTOCOL Last administered on 07/31/16 09:12; Start 07/26/16 at 10:00; Stop at 13:31; Status DC Fentanyl Citrate (Fentanyl 2ml Vial) 25 mcg PRN Q1HR PRN IV COMM; Start at 10:00; Stop 07/29/16 at 13:38; Status DC Fentanyl Citrate (Fentanyl 2ml Vial) 50 mcg PRN Q1HR PRN IV COMM; Start at 10:00; Stop 07/29/16 at 13:38; Status DC Chlorhexidine Gluconate (Peridex) 15 ml BID MM Last administered on 08/02/16 21:19; Start 07/26/16 at 10:30 Sulfur Hexafluoride Microspheres (Lumason) 25 mg STK-MED ONCE IVP ; Start at 11:29; Stop 07/26/16 at 11:30; Status DC Aspirin 300 mg 300 mg DAILY WI Last administered on 07/28/16 07:55; Start 03/03 at 12:00; Stop 07/29/16 at 19:10; Status DC Potassium Chloride (KCl Premix 20meq) 50 ml @ 50 mls/hr 1X ONCE IV Last administered on 07/26/16 12:55; Start 07/26/16 at 12:00; Stop 07/26/16 at 12:59 ; Status DC Sulfur Hexafluoride Microspheres (Lumason) 25 mg 1X ONCE IVP Last administered on 07/26/16 11:45; Start 07/26/16 at 11:45; Stop 07/26/16 at 11:50 ; Status DC Multi-Ingred Cream/Lotion/Oil/ Oint (Artificial Tears Eye Oint) 1 adri BID OU Last administered on 08/02/16 21:20; Start 07/26/16 at 21:00 Ondansetron HCl (Zofran) 4 mg PRN Q6HRS PRN IV NAUSEA/VOMITING; Start 07/27/16 at 07:00; Stop 07/28/16 at 06:59; Status DC Fentanyl Citrate (Fentanyl 2ml Vial) 25 mcg PRN Q5MIN PRN IV MILD PAIN; Start 07/27/16 at 07:00; Stop 07/28/16 at 06:59; Status DC Fentanyl Citrate (Fentanyl 2ml Vial) 50 mcg PRN Q5MIN PRN IV MODERATE PAIN; Start 07/27/16 at 07:00; Stop 07/28/16 at 06:59; Status DC Morphine Sulfate 1 mg 1 mg PRN Q10MIN PRN IV SEVERE PAIN; Start 07/27/16 at 07: 00; Stop 07/28/16 at 06:59; Status DC Lactated Ringer's (Iv Lactated Ringers) 1,000 ml @ 30 mls/hr Q24H IV Last administered on 07/26/16 17:25; Start 07/27/16 at 07:00; Stop 07/27/16 at 18:59 ; Status DC Lidocaine HCl 2 ml PRN 1X PRN ID PRIOR TO IV START; Start 07/27/16 at 07:00; Stop 07/28/16 at 06:59; Status DC Hydromorphone HCl (Dilaudid) 0.5 mg PRN Q10MIN PRN IV SEV PAIN, Second choice; Start 07/27/16 at 07:00; Stop 07/28/16 at 06:59; Status DC Prochlorperazine Edisylate 5 mg 5 mg PACU PRN PRN IV NAUSEA, MRX1; Start at 07:00; Stop 07/28/16 at 06:59; Status DC Heparin Sodium (Porcine) 02152 unit/Dextrose 512.5 ml @ 0 mls/hr Q0M ONCE IV Last administered on 07/26/16 19:40; Start 07/26/16 at 18:30; Stop 07/26/16 at 18:31; Status DC Amiodarone HCl 150 mg/Dextrose 103 ml @ 618 mls/hr 1X ONCE IV Last administered on 07/26/16 19:25; Start 07/26/16 at 19:15; Stop 07/26/16 at 19:24 ; Status DC Norepinephrine Bitartrate 8 mg/ Sodium Chloride 258 ml @ 1.93 mls/hr CONT PRN IV SEE I/O RECORD Last administered on 08/03/16 11:12; Start 07/26/16 at 19:15 Amiodarone HCl 900 mg/Dextrose 518 ml @ 0 mls/hr CONT PRN IV PER PROTOCOL; Start 07/26/16 at 19:15; Stop 07/27/16 at 12:11; Status DC Milrinone Lactate/ Dextrose 100 ml @ 0 mls/hr CONT PRN IV SEE I/O RECORD Last administered on 07/26/16 20:03; Start 07/26/16 at 19:45; Stop 07/29/16 at 13:51 ; Status DC Calcium Chloride/ Sodium Chloride (Iv Sodium Chloride 0.9% 100ml) 120 ml @ 240 mls/hr 1X ONCE IV Last administered on 07/26/16 21:04; Start 07/26/16 at 21: 30; Stop 07/26/16 at 21:59; Status DC Digoxin 500 mcg 500 mcg 1X ONCE IV Last administered on 07/26/16 21:55; Start 07/26/16 at 21:45; Stop 07/26/16 at 21:46; Status DC Cefazolin Sodium/ Sodium Chloride (Ancef/Iv Sodium Chloride 0.9% 500ml Bag) 500 ml @ 500 mls/hr 1X PERIOP ONCE IRR Last administered on 07/27/16 14:37; Start 07/27/16 at 10:00; Stop 07/27/16 at 10:59; Status DC Vancomycin HCl (Vanco) 10 gm 1X ONCE CEMENT Last administered on 07/27/16 14: 37; Start 07/27/16 at 12:30; Stop 07/27/16 at 12:31; Status DC Rocuronium [place] (Zemuron) 100 mg STK-MED ONCE .ROUTE ; Start 07/27/16 at 12: 32; Stop 07/27/16 at 12:33; Status DC Lorazepam (Ativan) 2 mg STK-MED ONCE .ROUTE ; Start 07/27/16 at 14:13; Stop 04/02 at 14:14; Status DC Phenylephrine HCl 1 mg 1 mg STK-MED ONCE IV ; Start 07/27/16 at 14:18; Stop 04/02 at 14:19; Status DC Albumin Human (Plasmanate) 250 ml @ 62.5 mls/hr 1X ONCE IV Last administered on 07/27/16 17:52; Start 07/27/16 at 17:15; Stop 07/27/16 at 21:14; Status DC Sodium Bicarbonate 50 meq STK-MED ONCE .ROUTE ; Start 07/27/16 at 17:39; Stop at 17:40; Status DC Sodium Bicarbonate 50 meq 1X ONCE IV Last administered on 07/27/16 17:51; Start 07/27/16 at 18:00; Stop 07/27/16 at 18:01; Status DC Sodium Bicarbonate 50 meq 1X ONCE IV Last administered on 07/27/16 17:52; Start 07/27/16 at 18:00; Stop 07/27/16 at 18:01; Status DC Fentanyl Citrate (Fentanyl 2ml Vial) 25 mcg PRN Q5MIN PRN IV MILD PAIN; Start 07/28/16 at 07:00; Stop 07/29/16 at 06:59; Status DC Fentanyl Citrate (Fentanyl 2ml Vial) 50 mcg PRN Q5MIN PRN IV MODERATE PAIN; Start 07/28/16 at 07:00; Stop 07/29/16 at 06:59; Status DC Morphine Sulfate 1 mg 1 mg PRN Q10MIN PRN IV SEVERE PAIN; Start 07/28/16 at 07: 00; Stop 07/29/16 at 06:59; Status DC Lactated Ringer's (Iv Lactated Ringers) 1,000 ml @ 30 mls/hr Q24H IV Last administered on 07/28/16 06:49; Start 07/28/16 at 06:49; Stop 07/28/16 at 18:48 ; Status DC Lidocaine HCl 2 ml PRN 1X PRN ID PRIOR TO IV START; Start 07/28/16 at 07:00; Stop 07/29/16 at 06:59; Status DC Hydromorphone HCl (Dilaudid) 0.5 mg PRN Q10MIN PRN IV SEV PAIN, Second choice; Start 07/28/16 at 07:00; Stop 07/29/16 at 06:59; Status DC Rocuronium [place] 50 mg 50 mg STK-MED ONCE .ROUTE ; Start 07/28/16 at 07:27; Stop 07/28/16 at 07:28; Status DC Cefazolin Sodium/ Sodium Chloride (Ancef/Iv Sodium Chloride 0.9% 500ml Bag) 500 ml @ 500 mls/hr 1X PERIOP ONCE IRR Last administered on 07/28/16 09:25; Start 07/28/16 at 08:00; Stop 07/28/16 at 08:59; Status DC Cellulose 1 each STK-MED ONCE .ROUTE ; Start 07/28/16 at 07:42; Stop 07/28/16 at 07:43; Status DC Bupivacaine HCl/ Epinephrine Bitart 50 ml 50 ml STK-MED ONCE .ROUTE ; Start at 07:42; Stop 07/28/16 at 07:43; Status DC Heparin Sodium (Porcine)/Sodium Chloride (Heparin Sodium/ Iv Sodium Chloride 0.9 % 500ml Bag) 505 ml @ 505 mls/hr 1X PERIOP ONCE IRR Last administered on 07/28 10:19; Start 07/28/16 at 08:15; Stop 07/28/16 at 09:14; Status DC Lorazepam 2 mg 2 mg STK-MED ONCE .ROUTE ; Start 07/28/16 at 08:29; Stop at 08:30; Status DC Magnesium Sulfate/ Dextrose (Magnesium Sulfate PREMIX 1GM) 100 ml @ 100 mls/hr 1X ONCE IV Last administered on 07/28/16t 13:09; Start 07/28/16 at 09:00; Stop 07/28/16 at 09:59; Status DC Vasopressin (Vasostrict) 20 unit STK-MED ONCE .ROUTE ; Start 07/28/16 at 09:03; Stop 07/28/16 at 09:04; Status DC Epinephrine HCl (Epinephrine Syringe) 1 mg STK-MED ONCE .ROUTE ; Start 07/28/16 at 09:09; Stop 07/28/16 at 09:10; Status DC Calcium Chloride 1,000 mg STK-MED ONCE IV ; Start 07/28/16 at 09:09; Stop at 09:10; Status DC Phenylephrine HCl 1 mg STK-MED ONCE IV ; Start 07/28/16 at 09:54; Stop 07/28/16 at 09:55; Status DC Sevoflurane 60 ml 60 ml STK-MED ONCE IH ; Start 07/28/16 at 09:54; Stop at 09:55; Status DC Epinephrine HCl/ Sodium Chloride (Adrenalin/Iv Sodium Chloride 0.9% 250ml) 254 ml @ 3.81 mls/hr 1X ONCE IV ; Start 07/28/16 at 10:00; Stop 07/29/16 at 19:10 ; Status DC Heparin Sodium (Porcine) 61085 unit 10,000 unit STK-MED ONCE .ROUTE ; Start at 09:57; Stop 07/28/16 at 09:58; Status DC Albumin Human (Plasmanate) 500 ml @ As Directed STK-MED ONCE IV ; Start at 09:57; Stop 07/28/16 at 09:58; Status DC Iohexol 100 ml 100 ml STK-MED ONCE .ROUTE ; Start 07/28/16 at 10:39; Stop at 10:40; Status DC Heparin Sodium/ Sodium Chloride 500 ml @ As Directed STK-MED ONCE .ROUTE ; Start 07/28/16 at 10:39; Stop 07/28/16 at 10:40; Status DC Iohexol 100 ml 100 ml STK-MED ONCE .ROUTE ; Start 07/28/16 at 10:43; Stop at 10:44; Status DC Heparin Sodium/ Sodium Chloride 500 ml @ As Directed STK-MED ONCE .ROUTE ; Start 07/28/16 at 11:21; Stop 07/28/16 at 11:22; Status DC Albuterol Sulfate (Ventolin Neb Soln) 2.5 mg RTQID NEB Last administered on 08:46; Start 07/28/16 at 12:00; Stop 07/30/16 at 17:05; Status DC Furosemide (Lasix) 40 mg 1X ONCE IVP Last administered on 07/28/16 13:16; Start 07/28/16 at 13:15; Stop 07/28/16 at 13:16; Status DC Furosemide (Lasix) 40 mg 1X ONCE IVP Last administered on 07/28/16 13:19; Start 07/28/16 at 14:00; Stop 07/28/16 at 14:01; Status DC Heparin Sodium/ Sodium Chloride 1000 unit 1,000 unit CONT PRN IV ART LINE FLUSH Last administered on 08/02/16 06:47; Start 07/28/16 at 14:45 Albumin Human 250 ml @ 62.5 mls/hr PRN Q1HR PRN IV SEE COMMENTS Last administered on 08/02/16 16:12; Start 07/28/16 at 15:15 Furosemide 100 mg/ Sodium Chloride 100 ml @ 5 mls/hr CONT PRN IV SEE I/O RECORD Last administered on 07/30/16 09:50; Start 07/28/16 at 15:30; Stop 07/31 at 13:31; Status DC Potassium Chloride 50 ml @ 50 mls/hr Q1H IV Last administered on 07/28/16 19: 39; Start 07/28/16 at 18:30; Stop 07/28/16 at 20:29; Status DC Potassium Chloride (KCl Premix 20meq) 50 ml @ 50 mls/hr Q1H IV Last administered on 07/29/16 09:36; Start 07/29/16 at 07:00; Stop 07/29/16 at 08:59 ; Status DC Lorazepam (Ativan) 2 mg STK-MED ONCE .ROUTE ; Start 07/28/16 at 08:30; Stop at 08:16; Status DC Aspirin (Arti Aspirin) 325 mg DAILYWBKFT PO Last administered on 08/03/16 09: 13; Start 07/30/16 at 08:00 Docusate Sodium 100 mg 100 mg DAILY PO Last administered on 07/31/16 07:59; Start 07/30/16 at 09:00; Stop 07/31/16 at 11:00; Status DC Dobutamine HCl/ Dextrose 250 ml @ 12.1 mls/hr CONT PRN IV PER PROTOCOL Last administered on 08/02/16 18:03; Start 07/29/16 at 13:30 Potassium Chloride 50 ml @ 50 mls/hr Q1H IV Last administered on 07/29/16 22: 39; Start 07/29/16 at 20:00; Stop 07/29/16 at 22:59; Status DC Potassium Chloride (KCl Premix 20meq) 50 ml @ 50 mls/hr Q1H IV Last administered on 07/30/16 09:19; Start 07/30/16 at 07:00; Stop 07/30/16 at 08:59 ; Status DC Ipratropium [place] (Atrovent) 0.5 mg RTQID NEB Last administered on 08/03/16 07:57; Start 07/30/16 at 12:30 Digoxin 500 mcg 500 mcg 1X ONCE IV Last administered on 07/30/16 13:01; Start 07/30/16 at 12:15; Stop 07/30/16 at 12:19; Status DC Dexmedetomidine HCl/Sodium Chloride (Precedex/Iv Sodium Chloride 0.9% 50ml) 50 ml @ 0 mls/hr CONT PRN IV PER PROTOCOL Last administered on 08/03/16 07:23; Start 07/30/16 at 13:30 Atropine Sulfate 0.5 mg PRN Q5MIN PRN IV SEE COMMENTS; Start 07/30/16 at 13:30 Amiodarone HCl (Cordarone) 400 mg ONCE ONCE PO Last administered on 07/30/16 15:01; Start 07/30/16 at 13:30; Stop 07/30/16 at 13:46; Status DC Amiodarone HCl (Cordarone) 400 mg BID PO Last administered on 08/03/16 09:14; Start 07/30/16 at 21:00 Digoxin 125 mcg 125 mcg DAILY IV Last administered on 08/02/16 08:56; Start at 09:00 Albumin Human (Albuminar) 50 ml @ 50 mls/hr 1X ONCE IV Last administered on 16:26; Start 07/30/16 at 16:30; Stop 07/30/16 at 17:29; Status DC Ibuprofen (Motrin) 200 mg PRN Q6HRS PRN PO fever; Start 07/30/16 at 19:45; Stop 08/01/16 at 12:22; Status DC Metoprolol Tartrate (Lopressor) 2.5 mg 1X ONCE IVP Last administered on 20:23; Start 07/30/16 at 20:30; Stop 07/30/16 at 20:31; Status DC Metoprolol Tartrate 5 mg 5 mg PRN Q2HR PRN IVP HYPERTENSION Last administered on 07/31/16 08:04; Start 07/30/16 at 22:30 Potassium Chloride (KCl Premix 20meq) 50 ml @ 50 mls/hr Q1H IV Last administered on 07/31/16 09:04; Start 07/31/16 at 07:00; Stop 07/31/16 at 08:59 ; Status DC Metoprolol Tartrate (Lopressor) 12.5 mg BID NG Last administered on 08/02/16 08:55; Start 07/31/16 at 10:00 Docusate Sodium (Colace Solution) 100 mg PRN DAILY PRN PO constipation Last administered on 08/01/16 08:40; Start 07/31/16 at 11:00 Hydralazine HCl (Apresoline) 10 mg PRN Q2HRS PRN IVP ELEVATED BP, SEE COMMENTS Last administered on 08/01/16 16:35; Start 07/31/16 at 13:30 Fentanyl Citrate (Fentanyl 2ml Vial) 50 mcg PRN Q2HR PRN IV PAIN Last administered on 08/02/16 12:57; Start 07/31/16 at 13:45 Furosemide (Lasix) 40 mg TID IVP Last administered on 08/02/16 05:49; Start at 14:00; Stop 08/02/16 at 15:33; Status DC Alteplase, Recombinant (Cathflo) 2 mg 1X ONCE INT CAT Last administered on 23:34; Start 07/31/16 at 23:15; Stop 07/31/16 at 23:16; Status DC Haloperidol Lactate (Haldol) 5 mg PRN Q6HRS PRN IVP MODERATE AGITATION Last administered on 08/01/16 21:21; Start 08/01/16 at 21:00 Haloperidol Lactate 10 mg 10 mg PRN Q6HRS PRN IVP SEVERE AGITATION Last administered on 08/01/16 23:59; Start 08/01/16 at 23:45 Propofol 100 ml @ 0 mls/hr CONT PRN IV SEE I/O RECORD Last administered on 08/02 11:43; Start 08/02/16 at 02:45 Piperacillin Sod/ Tazobactam Sod/ Sodium Chloride (Zosyn/Iv Sodium Chloride 0.9 % 50ml) 50 ml @ 100 mls/hr Q6HRS IV Last administered on 08/02/16 13:17; Start 08/02/16 at 12:00; Stop 08/02/16 at 15:43; Status DC Vancomycin HCl 1 each 1 each PRN DAILY PRN MC SEE COMMENTS Last administered on 08/02/16 13:20; Start 08/02/16 at 11:45 Vancomycin HCl 2 gm/Sodium Chloride 500 ml @ 250 mls/hr 1X ONCE IV Last administered on 08/02/16 11:52; Start 08/02/16 at 12:00; Stop 08/02/16 at 13:59 ; Status DC Sodium Chloride (Iv Sodium Chloride 0.9% 500ml Bag) 500 ml @ 500 mls/hr 1X ONCE IV Last administered on 08/02/16 12:39; Start 08/02/16 at 12:45; Stop at 13:44; Status DC Vecuronium [place] (Norcuron Bolus) 10 mg 1X STAT IV Last administered on 08/02 13:34; Start 08/02/16 at 13:17; Stop 08/02/16 at 13:23; Status DC Vancomycin HCl 1 each 1 each 1X ONCE MC ; Start 08/03/16 at 23:30; Stop at 23:31 Vancomycin HCl 1.25 gm/Sodium Chloride 250 ml @ 167 mls/hr Q12H IV Last administered on 08/03/16 00:33; Start 08/03/16 at 00:00; Stop 08/03/16 at 11:07 ; Status DC Fentanyl Citrate (Fentanyl 600 Mcg/30 ml HAT FORMING MACHINE OPERATOR) 30 ml @ 0 mls/hr CONT PRN PRN IV PROTOCOL Last administered on 08/03/16 00:19; Start 08/02/16 at 13:30 Naloxone HCl 0.4 mg 0.4 mg PRN Q2MIN PRN IV SEE INSTRUCTIONS; Start 08/02/16 at 13:30 Micafungin Sodium 100 mg/Dextrose 100 ml @ 100 mls/hr Q24H IV Last administered on 08/02/16 16:58; Start 08/02/16 at 17:00 Lactated Ringer's 1,000 ml @ 1,000 mls/hr 1X ONCE IV Last administered on 15:45; Start 08/02/16 at 15:45; Stop 08/02/16 at 16:44; Status DC Piperacillin Sod/ Tazobactam Sod 4.5 gm/Sodium Chloride 100 ml @ 200 mls/hr Q6HRS IV Last administered on 08/03/16 06:18; Start 08/02/16 at 18:00 Albumin Human (Plasmanate) 500 ml @ 125 mls/hr 1X ONCE IV Last administered on 08/02/16 20:37; Start 08/02/16 at 20:30; Stop 08/03/16 at 00:29; Status DC Furosemide (Lasix) 40 mg 1X ONCE IVP Last administered on 08/03/16 00:16; Start 08/02/16 at 20:30; Stop 08/02/16 at 20:31; Status DC Acetaminophen (Tylenol) 650 mg 1X ONCE NG Last administered on 08/03/16 02:03 ; Start 08/03/16 at 02:15; Stop 08/03/16 at 02:16; Status DC Ketorolac Tromethamine 15 mg 15 mg 1X ONCE IV Last administered on 08/03/16 02:03; Start 08/03/16 at 02:15; Stop 08/03/16 at 02:16; Status DC Lactated Ringer's (Iv Lactated Ringers) 500 ml @ 500 mls/hr 1X ONCE IV Last administered on 08/03/16 10:15; Start 08/03/16 at 10:15; Stop 08/03/16 at 11:14 ; Status DC Sodium Bicarbonate 50 meq 1X ONCE IV Last administered on 08/03/16t 10:44; Start 08/03/16 at 10:15; Stop 08/03/16 at 10:20; Status DC Calcium Gluconate (Calcium Gluconate) 1,000 mg 1X ONCE IVP ; Start 08/03/16 at 12:15; Stop 08/03/16 at 12:16; Status DC Active Scripts Active Reported Amlodipine Besylate 5 Mg Tablet 5 Mg PO DAILY Pradaxa (Dabigatran Etexilate Mesylate) 150 Mg Capsule 1 Cap PO BID Metoprolol Succinate ( Xl ) (Metoprolol Succinate) 100 Mg Tab.er.24h 1 Tab PO DAILY Allergies Allergies: Coded Allergies: No Known Drug Allergies (Unverified , 07/27/16) ROS Review of System unable to obtain from pt, as in HPI as reviewed with RN Physical Exam Physical Exam General Appearance: reportedly Awakens when sedation is weaned, currently not Alert Oriented x 0 while sedated and intubated on the vent In no Distress Eyes: VIsion Unchanged Conjunctiva Normal EN: No EN Drainage Mucous Memb. moist Neck: no JVD no JVP Supple no Thyromegaly CVS: S1 S2 no Murmur No Gallop No Rub +2 Edema Resp: few basal Rales no Rhonchi no Acc. Muscle use GI: BS hypoactive NO Bruit Non Tender Non Distended : no CVA tenderness; no Suprapubic Tenderness SKIN: no visible Rashes Breast Exam deferred Mu.Sk: Adequate passive ROM no Muscle Atrophy Heme: Unable to palpate Obvious LAD no palp Splenomegaly NEURO: Unable to assess while sedated and intubated Psych: Unable to assess while sedated and intubated Vital Signs Vital Signs Date Time Temp Pulse Resp B/P Pulse Ox O2 Delivery O2 Flow Rate FiO2 08/03/16 11:37 97 Ventilator 08/03/16 10:00 100.4 92 17 108/52 100.4 Assessment & Plan ARF/ ATN from multiple etios (X-clamp time, IVC, Sepsis +/- SHock, ? due to diuresis in Pre-Renal state due to CMyopahty) Current FLuid and E-lyte status does not necessitate emergent need for Dialysis. Will re-evaluate for Dialysis in am as discussed with Dr Muse Min Met acidosis per ABG - IV Bicarb as needed to keep off of HD and for volume ^K - watch trend after correction of Met Acidosis ^ed Na - IVF as ordered HypoCalcemia - IV Calcium x 1 (if Ok to use with Dig levels) - suspect due to recent attempts at diuresis Oliguria - IVF as ordered - he has recieved IV Alb too Anemia: may need Epogen in setting of JAKE. Transfuse planned. HypoTN:/ ? Sepsis - remains Pressor dependent - titrate for MAPs as ordered. Discussed Plan of Care and prognosis etc. at length with family (), Dr Muse and Cardio COOK APPRENTICE PASTRYEric Newell. Labs Labs Laboratory Tests Test 08/02/16 00:01 08/02/16 05:50 08/02/16 07:45 08/03/16 07:30 Glucose (Fingerstick) 137mg/dL (70-99) White Blood Count 16.1x10^3/uL (4.0-11.0) 11.9x10^3/uL (4.0-11.0) Red Blood Count 2.90x10^6/uL (4.30-5.70) 2.32x10^6/uL (4.30-5.70) Hemoglobin 9.0g/dL (13.0-17.5) 7.5g/dL (13.0-17.5) Hematocrit 28.5% (39.0-53.0) 23.0% (39.0-53.0) Mean Corpuscular Volume 98fL (79-100) 99fL (79-100) Mean Corpuscular Hemoglobin 31pg (25-35) 32pg (25-35) Mean Corpuscular Hemoglobin Concent 32g/dL (31-37) 33g/dL (31-37) Red Cell Distribution Width 15.8% (11.5-14.5) 17.7% (11.5-14.5) Platelet Count 110x10^3/uL (140-400) 90x10^3/uL (140-400) Neutrophils (%) (Auto) 92% (31-73) 89% (31-73) Lymphocytes (%) (Auto) 4% (24-48) 7% (24-48) Monocytes (%) (Auto) 4% (0-9) 4% (0-9) Eosinophils (%) (Auto) 0% (0-3) 0% (0-3) Basophils (%) (Auto) 0% (0-3) 0% (0-3) Neutrophils # (Auto) 14.8x10^3uL (1.8-7.7) 10.6x10^3uL (1.8-7.7) Lymphocytes # (Auto) 0.6x10^3/uL (1.0-4.8) 0.8x10^3/uL (1.0-4.8) Monocytes # (Auto) 0.6x10^3/uL (0.0-1.1) 0.5x10^3/uL (0.0-1.1) Eosinophils # (Auto) 0.0x10^3/uL (0.0-0.7) 0.0x10^3/uL (0.0-0.7) Basophils # (Auto) 0.0x10^3/uL (0.0-0.2) 0.0x10^3/uL (0.0-0.2) Sodium Level 150mmol/L (136-145) 149mmol/L (136-145) Potassium Level 4.3mmol/L (3.5-5.1) 5.3mmol/L (3.5-5.1) Chloride Level 114mmol/L (98-107) 112mmol/L (98-107) Carbon Dioxide Level 27mmol/L (21-32) 25mmol/L (21-32) Anion Gap 9 (6-14) 12 (6-14) Blood Urea Nitrogen 39mg/dL (8-26) 82mg/dL (8-26) Creatinine 1.2mg/dL (0.7-1.3) 3.1mg/dL (0.7-1.3) Estimated GFR (Cockcroft-Gault) 62.4 20.9 BUN/Creatinine Ratio 33 (6-20) 26 (6-20) Glucose Level 152mg/dL (70-99) 174mg/dL (70-99) Calcium Level 7.6mg/dL (8.5-10.1) 6.3mg/dL (8.5-10.1) Magnesium Level 2.8mg/dL (1.8-2.4) 2.7mg/dL (1.8-2.4) Total Bilirubin 5.8mg/dL (0.2-1.0) 7.1mg/dL (0.2-1.0) Aspartate Amino Transf (AST/SGOT) 91U/L (15-37) 50U/L (15-37) Alanine Aminotransferase (ALT/SGPT) 311U/L (16-63) 127U/L (16-63) Alkaline Phosphatase 209U/L (46-116) 83U/L (46-116) Total Protein 5.3g/dL (6.4-8.2) 5.2g/dL (6.4-8.2) Albumin 2.4g/dL (3.4-5.0) 2.2g/dL (3.4-5.0) Albumin/Globulin Ratio 0.8 (1.0-1.7) 0.7 (1.0-1.7) O2 Saturation 88% (92-99) Arterial Blood pH 7.43 (7.35-7.45) Arterial Blood pCO2 at Patient Temp 43mmHg (35-46) Arterial Blood pO2 at Patient Temp 57mmHg (75-108) Arterial Blood HCO3 28mmol/L (21-28) Arterial Blood Base Excess 3mmol/L (-3-3) FiO2 60 Test 08/03/16 07:50 O2 Saturation 95% (92-99) Arterial Blood pH 7.30 (7.35-7.45) Arterial Blood pCO2 at Patient Temp 40mmHg (35-46) Arterial Blood pO2 at Patient Temp 85mmHg (75-108) Arterial Blood HCO3 19mmol/L (21-28) Arterial Blood Base Excess -7mmol/L (-3-3) FiO2 50 Laboratory Tests Test 08/03/16 07:30 08/03/16 07:50 White Blood Count 11.9x10^3/uL (4.0-11.0) Red Blood Count 2.32x10^6/uL (4.30-5.70) Hemoglobin 7.5g/dL (13.0-17.5) Hematocrit 23.0% (39.0-53.0) Mean Corpuscular Volume 99fL (79-100) Mean Corpuscular Hemoglobin 32pg (25-35) Mean Corpuscular Hemoglobin Concent 33g/dL (31-37) Red Cell Distribution Width 17.7% (11.5-14.5) Platelet Count 90x10^3/uL (140-400) Neutrophils (%) (Auto) 89% (31-73) Lymphocytes (%) (Auto) 7% (24-48) Monocytes (%) (Auto) 4% (0-9) Eosinophils (%) (Auto) 0% (0-3) Basophils (%) (Auto) 0% (0-3) Neutrophils # (Auto) 10.6x10^3uL (1.8-7.7) Lymphocytes # (Auto) 0.8x10^3/uL (1.0-4.8) Monocytes # (Auto) 0.5x10^3/uL (0.0-1.1) Eosinophils # (Auto) 0.0x10^3/uL (0.0-0.7) Basophils # (Auto) 0.0x10^3/uL (0.0-0.2) Sodium Level 149mmol/L (136-145) Potassium Level 5.3mmol/L (3.5-5.1) Chloride Level 112mmol/L (98-107) Carbon Dioxide Level 25mmol/L (21-32) Anion Gap 12 (6-14) Blood Urea Nitrogen 82mg/dL (8-26) Creatinine 3.1mg/dL (0.7-1.3) Estimated GFR (Cockcroft-Gault) 20.9 BUN/Creatinine Ratio 26 (6-20) Glucose Level 174mg/dL (70-99) Calcium Level 6.3mg/dL (8.5-10.1) Magnesium Level 2.7mg/dL (1.8-2.4) Total Bilirubin 7.1mg/dL (0.2-1.0) Aspartate Amino Transf (AST/SGOT) 50U/L (15-37) Alanine Aminotransferase (ALT/SGPT) 127U/L (16-63) Alkaline Phosphatase 83U/L (46-116) Total Protein 5.2g/dL (6.4-8.2) Albumin 2.2g/dL (3.4-5.0) Albumin/Globulin Ratio 0.7 (1.0-1.7) O2 Saturation 95% (92-99) Arterial Blood pH 7.30 (7.35-7.45) Arterial Blood pCO2 at Patient Temp 40mmHg (35-46) Arterial Blood pO2 at Patient Temp 85mmHg (75-108) Arterial Blood HCO3 19mmol/L (21-28) Arterial Blood Base Excess -7mmol/L (-3-3) FiO2 50 Images Images Portable chest, 08/02/2016, 2:11 PM: History: Hypotension, hypoxia Comparison is made to a study from earlier the same day. The ET tube tip lies well above the clara. An NG tube extends into the stomach. A right PICC extends into the superior vena cava. The heart size and pulmonary vascularity are within normal limits. There is increasing left basilar atelectasis/infiltrate, now obscuring the hemidiaphragm. There is minimal residual infrahilar atelectasis on the right. IMPRESSION: 1. Stable tube positions. 2. Increasing mild left basilar atelectasis/infiltrate. ELIZABETH LOPEZ MD Aug 03, 2016 12:33
--- NOTE | 2016-08-03 13:03 | PDOC ---
Progress Note Subjective Subjective Patient was in septic shock throughout the day yesterday. Source of sepsis is currently unknown. All cultures are pending. Chest x-ray this morning remains clear. He had high-grade fevers as high as 104. As result of the sepsis he has now developed acute renal failure with a creatinine of 3.1 and a BUN in the 80s. Bilirubin is also still slightly higher today. He is more stable this morning. Systolic blood pressures in the 120s 130s and we are weaning the levophed. Vent settings are also down with an FiO2 of 40% and a PEEP of 8. He was awake this morning and following commands. Urine output is approximately 30 mL per hour. PH this morning was 7.29 with a normal CO2 and O2. ROS ROS Unable to obtain-patient intubated and sedated Vital Sign Vital Signs Vital Signs Date Time Temp Pulse Resp B/P Pulse Ox O2 Delivery O2 Flow Rate FiO2 08/03/16 12:36 100.4 112 16 134/68 100.4 08/03/16 11:37 97 Ventilator Physical Exam PHYSICAL EXAM GENERAL: Intubated, 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 HEENT: Pupils reactive, scleral icterus improving NECK: Supple LUNGS: Clear HEART: S1S2 CHEST: sternotomy: D/C/I ABD: Soft, NT EXT: edema improved, warm well perfused, pedal pulses palpable ENROLLMENT ELIGIBILITY REPRESENTATIVE: Intubated,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, extremities flaccid SKIN: No rash IV: ok Labs Lab Laboratory Tests Test 08/03/16 07:30 08/03/16 07:50 White Blood Count 11.9x10^3/uL (4.0-11.0) Red Blood Count 2.32x10^6/uL (4.30-5.70) Hemoglobin 7.5g/dL (13.0-17.5) Hematocrit 23.0% (39.0-53.0) Mean Corpuscular Volume 99fL (79-100) Mean Corpuscular Hemoglobin 32pg (25-35) Mean Corpuscular Hemoglobin Concent 33g/dL (31-37) Red Cell Distribution Width 17.7% (11.5-14.5) Platelet Count 90x10^3/uL (140-400) Neutrophils (%) (Auto) 89% (31-73) Lymphocytes (%) (Auto) 7% (24-48) Monocytes (%) (Auto) 4% (0-9) Eosinophils (%) (Auto) 0% (0-3) Basophils (%) (Auto) 0% (0-3) Neutrophils # (Auto) 10.6x10^3uL (1.8-7.7) Lymphocytes # (Auto) 0.8x10^3/uL (1.0-4.8) Monocytes # (Auto) 0.5x10^3/uL (0.0-1.1) Eosinophils # (Auto) 0.0x10^3/uL (0.0-0.7) Basophils # (Auto) 0.0x10^3/uL (0.0-0.2) Sodium Level 149mmol/L (136-145) Potassium Level 5.3mmol/L (3.5-5.1) Chloride Level 112mmol/L (98-107) Carbon Dioxide Level 25mmol/L (21-32) Anion Gap 12 (6-14) Blood Urea Nitrogen 82mg/dL (8-26) Creatinine 3.1mg/dL (0.7-1.3) Estimated GFR (Cockcroft-Gault) 20.9 BUN/Creatinine Ratio 26 (6-20) Glucose Level 174mg/dL (70-99) Calcium Level 6.3mg/dL (8.5-10.1) Phosphorus Level 8.3mg/dL (2.6-4.7) Magnesium Level 2.7mg/dL (1.8-2.4) Total Bilirubin 7.1mg/dL (0.2-1.0) Aspartate Amino Transf (AST/SGOT) 50U/L (15-37) Alanine Aminotransferase (ALT/SGPT) 127U/L (16-63) Alkaline Phosphatase 83U/L (46-116) Total Protein 5.2g/dL (6.4-8.2) Albumin 2.2g/dL (3.4-5.0) Albumin/Globulin Ratio 0.7 (1.0-1.7) O2 Saturation 95% (92-99) Arterial Blood pH 7.30 (7.35-7.45) Arterial Blood pCO2 at Patient Temp 40mmHg (35-46) Arterial Blood pO2 at Patient Temp 85mmHg (75-108) Arterial Blood HCO3 19mmol/L (21-28) Arterial Blood Base Excess -7mmol/L (-3-3) FiO2 50 Objective Assessment Status post CABG 3 for severe ischemic cardiomyopathy, large anterior STEMI with troponin of 100, with early postoperative myocardial infarction/V. fib, leading to cardiogenic shock, placement of the vein graft to the LAD and impella for mechanical circulatory support and open chest. Sternotomy has been closed and the LVAD has been removed.. Patient was in septic shock throughout the day yesterday. Source of sepsis is currently unknown. All cultures are pending. Chest x-ray this morning remains clear. He had high-grade fevers as high as 104. As result of the sepsis he has now developed acute renal failure with a creatinine of 3.1 and a BUN in the 80s (from normal values). Bilirubin is also still slightly higher today. He is more stable this morning. Systolic blood pressures in the 120s 130s and we are weaning the levophed. HR in the 100-110 from 140s-150s yesterday. Vent settings are also down with an FiO2 of 40% and a PEEP of 8. He was awake this morning and following commands. Urine output is approximately 30 mL per hour. PH this morning was 7.29 with a normal CO2 and O2. Plan Plan of Care Keep dopamine at 5 mcg, to help with renal perfusion. Wean levophed as tolerated Give fluid bolus and 1 amp of HCO3 Stop lasix Start D51/2NS with 3 amp of HCO at 100 mls/hr 400mg po BID for A. fib control IV Zosyn, vancomycin and Micafungin CT head, chest and abdomen without contrast-follow up on subdural fluid collection, and assess for chest/abdominal source of sepsis Loose stool-send C.Diff Give 1 unit PRBC Nephrology consult-may need temporary dialysis ID consult Change a-line OLGA LOPEZ MD Aug 03, 2016 13:03
--- NOTE | 2016-08-03 13:18 | PDOC ---
SUBJECTIVE Subjective Other medical issues have delayed repeat CT. Pt with eyes open and follows simple commands today. OBJECTIVE Vital Signs Vital Signs Date Time Temp Pulse Resp B/P Pulse Ox O2 Delivery O2 Flow Rate FiO2 08/03/16 12:36 100.4 112 16 134/68 100.4 08/03/16 11:37 97 Ventilator 08/03/16 10:09 97 Ventilator 08/03/16 10:00 100.4 92 17 108/52 98 Ventilator 100.4 08/03/16 09:37 Mechanical Ventilator 08/03/16 09:14 93 111/52 08/03/16 09:00 97.7 90 17 142/68 95 Ventilator 97.7 08/03/16 08:00 97.7 90 17 116/58 97 Ventilator 97.7 08/03/16 07:50 97 Ventilator 08/03/16 07:00 97.7 90 17 120/64 98 Ventilator 97.7 08/03/16 06:05 97.7 130 17 128/70 98 Ventilator 97.7 08/03/16 05:15 98 Ventilator 08/03/16 05:00 98.8 132 16 112/64 99 Ventilator 98.8 08/03/16 04:00 Mechanical Ventilator 08/03/16 04:00 102.7 136 17 102/58 99 Ventilator 102.7 08/03/16 03:30 99 Ventilator 08/03/16 03:00 104.8 140 17 102/56 97 Ventilator 104.8 08/03/16 02:00 104.2 142 17 118/58 94 Ventilator 104.2 08/03/16 01:25 93 Ventilator 08/03/16 01:00 103.2 142 18 88/50 95 Ventilator 103.2 08/03/16 00:05 100 Ventilator 08/03/16 00:00 142 17 94/48 95 Ventilator 08/03/16 00:00 Mechanical Ventilator 08/02/16 23:00 142 16 98/48 95 Ventilator 08/02/16 22:15 94 Ventilator 08/02/16 22:00 101.1 142 17 102/50 94 Ventilator 101.1 08/02/16 21:19 140 94/49 08/02/16 21:00 140 17 92/46 92 Ventilator 08/02/16 20:00 Mechanical Ventilator 08/02/16 20:00 102.5 142 17 108/50 95 Ventilator 102.5 08/02/16 19:50 95 Ventilator 08/02/16 19:00 142 16 102/50 95 Ventilator 08/02/16 18:00 102.4 141 16 100/50 94 Ventilator 102.4 08/02/16 17:00 141 17 103/49 94 Ventilator 08/02/16 16:00 Mechanical Ventilator 08/02/16 16:00 102.5 144 16 94/47 94 Ventilator 102.5 08/02/16 15:49 95 Ventilator 08/02/16 15:00 103.0 144 16 88/47 97 Ventilator 103.0 08/02/16 14:25 16 92 08/02/16 14:20 150 16 88/46 93 Ventilator 08/02/16 14:05 95 Ventilator 08/02/16 14:00 99.4 150 16 97/51 91 Ventilator 99.4 08/02/16 13:55 16 92 Ventilator 08/02/16 13:27 27 92 Ventilator I & O Intake and Output 08/03/16 07:00 Intake Total 4497.5 ml Output Total 800 ml Balance 3697.5 ml Intake Oral 0 ml IV Total 4077.5 ml Tube Feeding 370 ml Other 50 ml Output Urine Total 800 ml PHYSICAL EXAM Physical Exam Intubated. Eyes open spontaneously, PERRL, sticks out tongue to command, trace movement left hand, no movement right hand, wiggles toes in both feet to command ASSESSMENT/PLAN Assessment/Plan 56M with small ICH -neurologically with better exam today -repeat CT head soon Problems: COMMENT Lab Laboratory Tests Test 08/03/16 07:30 08/03/16 07:50 White Blood Count 11.9x10^3/uL (4.0-11.0) Red Blood Count 2.32x10^6/uL (4.30-5.70) Hemoglobin 7.5g/dL (13.0-17.5) Hematocrit 23.0% (39.0-53.0) Mean Corpuscular Volume 99fL (79-100) Mean Corpuscular Hemoglobin 32pg (25-35) Mean Corpuscular Hemoglobin Concent 33g/dL (31-37) Red Cell Distribution Width 17.7% (11.5-14.5) Platelet Count 90x10^3/uL (140-400) Neutrophils (%) (Auto) 89% (31-73) Lymphocytes (%) (Auto) 7% (24-48) Monocytes (%) (Auto) 4% (0-9) Eosinophils (%) (Auto) 0% (0-3) Basophils (%) (Auto) 0% (0-3) Neutrophils # (Auto) 10.6x10^3uL (1.8-7.7) Lymphocytes # (Auto) 0.8x10^3/uL (1.0-4.8) Monocytes # (Auto) 0.5x10^3/uL (0.0-1.1) Eosinophils # (Auto) 0.0x10^3/uL (0.0-0.7) Basophils # (Auto) 0.0x10^3/uL (0.0-0.2) Sodium Level 149mmol/L (136-145) Potassium Level 5.3mmol/L (3.5-5.1) Chloride Level 112mmol/L (98-107) Carbon Dioxide Level 25mmol/L (21-32) Anion Gap 12 (6-14) Blood Urea Nitrogen 82mg/dL (8-26) Creatinine 3.1mg/dL (0.7-1.3) Estimated GFR (Cockcroft-Gault) 20.9 BUN/Creatinine Ratio 26 (6-20) Glucose Level 174mg/dL (70-99) Calcium Level 6.3mg/dL (8.5-10.1) Phosphorus Level 8.3mg/dL (2.6-4.7) Magnesium Level 2.7mg/dL (1.8-2.4) Total Bilirubin 7.1mg/dL (0.2-1.0) Aspartate Amino Transf (AST/SGOT) 50U/L (15-37) Alanine Aminotransferase (ALT/SGPT) 127U/L (16-63) Alkaline Phosphatase 83U/L (46-116) Total Protein 5.2g/dL (6.4-8.2) Albumin 2.2g/dL (3.4-5.0) Albumin/Globulin Ratio 0.7 (1.0-1.7) O2 Saturation 95% (92-99) Arterial Blood pH 7.30 (7.35-7.45) Arterial Blood pCO2 at Patient Temp 40mmHg (35-46) Arterial Blood pO2 at Patient Temp 85mmHg (75-108) Arterial Blood HCO3 19mmol/L (21-28) Arterial Blood Base Excess -7mmol/L (-3-3) FiO2 50 TYREE NELSON MD Aug 03, 2016 13:18
--- NOTE | 2016-08-03 13:18 | PDOC ---
CARDIO Progress Notes Date and Time Date of Service 08/03/2016 Time of Evaluation 1211 Subjective Subjective: Other (responds to commands; eyes open; moving head/hands) Vitals Vitals Vital Signs Date Time Temp Pulse Resp B/P Pulse Ox O2 Delivery O2 Flow Rate FiO2 08/03/16 11:37 97 Ventilator 08/03/16 10:00 100.4 92 17 108/52 100.4 Weight Weight [ ] Stability Assessment Stability Assess.: unstable for transfer (Intesive V. sign monit. req) Input and Output Intake and Output Intake and Output 08/03/16 07:00 Intake Total 4497.5 ml Output Total 800 ml Balance 3697.5 ml Intake Oral 0 ml IV Total 4077.5 ml Tube Feeding 370 ml Other 50 ml Output Urine Total 800 ml Laboratory Labs Laboratory Tests Test 08/03/16 07:30 08/03/16 07:50 White Blood Count 11.9x10^3/uL (4.0-11.0) Red Blood Count 2.32x10^6/uL (4.30-5.70) Hemoglobin 7.5g/dL (13.0-17.5) Hematocrit 23.0% (39.0-53.0) Mean Corpuscular Volume 99fL (79-100) Mean Corpuscular Hemoglobin 32pg (25-35) Mean Corpuscular Hemoglobin Concent 33g/dL (31-37) Red Cell Distribution Width 17.7% (11.5-14.5) Platelet Count 90x10^3/uL (140-400) Neutrophils (%) (Auto) 89% (31-73) Lymphocytes (%) (Auto) 7% (24-48) Monocytes (%) (Auto) 4% (0-9) Eosinophils (%) (Auto) 0% (0-3) Basophils (%) (Auto) 0% (0-3) Neutrophils # (Auto) 10.6x10^3uL (1.8-7.7) Lymphocytes # (Auto) 0.8x10^3/uL (1.0-4.8) Monocytes # (Auto) 0.5x10^3/uL (0.0-1.1) Eosinophils # (Auto) 0.0x10^3/uL (0.0-0.7) Basophils # (Auto) 0.0x10^3/uL (0.0-0.2) Sodium Level 149mmol/L (136-145) Potassium Level 5.3mmol/L (3.5-5.1) Chloride Level 112mmol/L (98-107) Carbon Dioxide Level 25mmol/L (21-32) Anion Gap 12 (6-14) Blood Urea Nitrogen 82mg/dL (8-26) Creatinine 3.1mg/dL (0.7-1.3) Estimated GFR (Cockcroft-Gault) 20.9 BUN/Creatinine Ratio 26 (6-20) Glucose Level 174mg/dL (70-99) Calcium Level 6.3mg/dL (8.5-10.1) Magnesium Level 2.7mg/dL (1.8-2.4) Total Bilirubin 7.1mg/dL (0.2-1.0) Aspartate Amino Transf (AST/SGOT) 50U/L (15-37) Alanine Aminotransferase (ALT/SGPT) 127U/L (16-63) Alkaline Phosphatase 83U/L (46-116) Total Protein 5.2g/dL (6.4-8.2) Albumin 2.2g/dL (3.4-5.0) Albumin/Globulin Ratio 0.7 (1.0-1.7) O2 Saturation 95% (92-99) Arterial Blood pH 7.30 (7.35-7.45) Arterial Blood pCO2 at Patient Temp 40mmHg (35-46) Arterial Blood pO2 at Patient Temp 85mmHg (75-108) Arterial Blood HCO3 19mmol/L (21-28) Arterial Blood Base Excess -7mmol/L (-3-3) FiO2 50 Microbiology Micro Microbiology 07/30/16 Blood Culture - Preliminary, Resulted NO GROWTH AFTER 3 DAYS 07/31/16 Sputum Culture - Preliminary, Resulted 07/31/16 Sputum Result 1 - Preliminary, Resulted 07/31/16 Gram Stain - Final, Complete Radiology Rad Impression CXR pending for today CT head, chest, abdomen, pelvis pending Case Discussion Case Discussed with: Family, Physician, Other (RN) Continued Hospitalization Reason for continued Hospitali: IVABX, high O2 needs, continued fevers, abnormal labs Physical Exam Chest: Symmetric, Other (oral ETT/oral gastric tube) LUNGS: Other (coarse, decreased bases anteriorly) Heart: S1S2, irregularly irregular, other (atrial flutter) Abdomen: Soft N/T Extremities: Other (anasarca; DP/PT pulses by Doppler; feet warm) Neurology: follow commands Other Exams Jaundiced with scleral icterus Assessment Assessment 1. STEMI troponin peaked @ 96.465 CABG on 07/25/2016 with FLETCHER to LAD; SVG to LAD; SVG to OM1 and SVG to RPDA VF arrest post-op with post-op MN continue amiodarone 2. cardiogenic shock Impella removed 07/28/2016 - LVEF ~ 25% by echo TTE on 07/26/2016 with severe global hypokinesis of the left ventricle distal 2/3 of the LV is severely hypokinetic with akinesis of the mid to distal LAD and apex LVEF depressed at about 20%; repeat limited echo on 08/02/2016 - LVEF ~ 25- 30% dobutamine decreased to about 1.5 mcg/kg/min earlier today and then required increase in dosage 3. ischemic cardiomyopathy LVEF mildly depressed @ 45% on echo pre-op furosemide on hold due to renal function BB on hold due to BP 4. acute respiratory failure remains intubated with vent 5. JAKE CR increase to 3.1 overnight with BUN of 82 one dose of NSAIDs overnight with fever diuretics & dig held nephrology to evaluate 6. sepsis T max 104.8 lima cultured yesterday Vanco on hold due to renal function LFTs elevated as well through trending downward, T. Bili increased overnigh ID consult pending 7. HLD statin therapy 8. atrial fib chronic; has been in and out of atrial fib converted to atrial flutter - 140s no OAC due to small SDH with CT scan pending to re-evaluate 9. small right frontal SDH surgery not indicated per NS planned repeat of CT today 10. metabolic encephalopathy responding to commands today NERY DANGELO CHIP FRIER Aug 03, 2016 13:18
[2016-08-03 13:23] LABS: URIC ACID 6.1 mg/dL (3.5-7.2)
[2016-08-03] MEDS ORDERED: CALCIUM CHLORIDE 2,000 MG in IV NORMAL SALINE 100ML 100 ML IV ONE (13:30)
[2016-08-03] MEDS: SODIUM BICARBONATE VIAL 150 MEQ in IV DEXTROSE 5% 1,000 ML IV SCH (13:30)
--- NOTE | 2016-08-03 14:23 | RAD ---
Portable chest, 08/03/2016: History: Respiratory failure Comparison is made yesterday study. An ET tube has its tip located 3 cm above the clara. The right PICC extends to the level of the atriocaval junction. An NG tube extends into the stomach. The heart size is unchanged. There are increasing basilar opacities which now obscure both hemidiaphragms. A component of pleural fluid cannot be excluded. IMPRESSION: 1. Stable tube positions. 2. Worsening bibasilar atelectasis/infiltrate.
[2016-08-03] MEDS ORDERED: LIDOCAINE 1% / SOD BICARB 8.4% 20 ML VIAL. IJ ONE ×2 (14:31→14:45)
[2016-08-03] MEDS ORDERED: HEPARIN for IV BOLUS 10,000 UNIT/10 ML VIAL. ONE (14:31)
--- NOTE | 2016-08-03 14:41 | PDOC ---
PULMONARY PROGRESS NOTES Subjective worsening renal failure/septic on pressors increasing bili Vitals Vital Signs Date Time Temp Pulse Resp B/P Pulse Ox O2 Delivery O2 Flow Rate FiO2 08/03/16 13:50 97 Ventilator 08/03/16 13:00 100.5 125 16 124/60 100.5 HEENT: Other (nc at perrl orally intubated nose clease. neck, no lap thyromegaly) Lungs: Other (decrease bs) Cardiovascular: Other (tachy) Abdomen: Soft, Non-tender, Other Extremities: Other (jaundice) Skin: Warm Labs Laboratory Tests Test 08/02/16 00:01 08/02/16 05:50 08/02/16 07:45 08/03/16 07:30 Glucose (Fingerstick) 137mg/dL (70-99) White Blood Count 16.1x10^3/uL (4.0-11.0) 11.9x10^3/uL (4.0-11.0) Red Blood Count 2.90x10^6/uL (4.30-5.70) 2.32x10^6/uL (4.30-5.70) Hemoglobin 9.0g/dL (13.0-17.5) 7.5g/dL (13.0-17.5) Hematocrit 28.5% (39.0-53.0) 23.0% (39.0-53.0) Mean Corpuscular Volume 98fL (79-100) 99fL (79-100) Mean Corpuscular Hemoglobin 31pg (25-35) 32pg (25-35) Mean Corpuscular Hemoglobin Concent 32g/dL (31-37) 33g/dL (31-37) Red Cell Distribution Width 15.8% (11.5-14.5) 17.7% (11.5-14.5) Platelet Count 110x10^3/uL (140-400) 90x10^3/uL (140-400) Neutrophils (%) (Auto) 92% (31-73) 89% (31-73) Lymphocytes (%) (Auto) 4% (24-48) 7% (24-48) Monocytes (%) (Auto) 4% (0-9) 4% (0-9) Eosinophils (%) (Auto) 0% (0-3) 0% (0-3) Basophils (%) (Auto) 0% (0-3) 0% (0-3) Neutrophils # (Auto) 14.8x10^3uL (1.8-7.7) 10.6x10^3uL (1.8-7.7) Lymphocytes # (Auto) 0.6x10^3/uL (1.0-4.8) 0.8x10^3/uL (1.0-4.8) Monocytes # (Auto) 0.6x10^3/uL (0.0-1.1) 0.5x10^3/uL (0.0-1.1) Eosinophils # (Auto) 0.0x10^3/uL (0.0-0.7) 0.0x10^3/uL (0.0-0.7) Basophils # (Auto) 0.0x10^3/uL (0.0-0.2) 0.0x10^3/uL (0.0-0.2) Sodium Level 150mmol/L (136-145) 149mmol/L (136-145) Potassium Level 4.3mmol/L (3.5-5.1) 5.3mmol/L (3.5-5.1) Chloride Level 114mmol/L (98-107) 112mmol/L (98-107) Carbon Dioxide Level 27mmol/L (21-32) 25mmol/L (21-32) Anion Gap 9 (6-14) 12 (6-14) Blood Urea Nitrogen 39mg/dL (8-26) 82mg/dL (8-26) Creatinine 1.2mg/dL (0.7-1.3) 3.1mg/dL (0.7-1.3) Estimated GFR (Cockcroft-Gault) 62.4 20.9 BUN/Creatinine Ratio 33 (6-20) 26 (6-20) Glucose Level 152mg/dL (70-99) 174mg/dL (70-99) Calcium Level 7.6mg/dL (8.5-10.1) 6.3mg/dL (8.5-10.1) Magnesium Level 2.8mg/dL (1.8-2.4) 2.7mg/dL (1.8-2.4) Total Bilirubin 5.8mg/dL (0.2-1.0) 7.1mg/dL (0.2-1.0) Aspartate Amino Transf (AST/SGOT) 91U/L (15-37) 50U/L (15-37) Alanine Aminotransferase (ALT/SGPT) 311U/L (16-63) 127U/L (16-63) Alkaline Phosphatase 209U/L (46-116) 83U/L (46-116) Total Protein 5.3g/dL (6.4-8.2) 5.2g/dL (6.4-8.2) Albumin 2.4g/dL (3.4-5.0) 2.2g/dL (3.4-5.0) Albumin/Globulin Ratio 0.8 (1.0-1.7) 0.7 (1.0-1.7) O2 Saturation 88% (92-99) Arterial Blood pH 7.43 (7.35-7.45) Arterial Blood pCO2 at Patient Temp 43mmHg (35-46) Arterial Blood pO2 at Patient Temp 57mmHg (75-108) Arterial Blood HCO3 28mmol/L (21-28) Arterial Blood Base Excess 3mmol/L (-3-3) FiO2 60 Uric Acid 6.1mg/dL (3.5-7.2) Phosphorus Level 8.3mg/dL (2.6-4.7) Creatine Kinase 158U/L (39-308) Test 08/03/16 07:50 O2 Saturation 95% (92-99) Arterial Blood pH 7.30 (7.35-7.45) Arterial Blood pCO2 at Patient Temp 40mmHg (35-46) Arterial Blood pO2 at Patient Temp 85mmHg (75-108) Arterial Blood HCO3 19mmol/L (21-28) Arterial Blood Base Excess -7mmol/L (-3-3) FiO2 50 Laboratory Tests Test 08/03/16 07:30 08/03/16 07:50 White Blood Count 11.9x10^3/uL (4.0-11.0) Red Blood Count 2.32x10^6/uL (4.30-5.70) Hemoglobin 7.5g/dL (13.0-17.5) Hematocrit 23.0% (39.0-53.0) Mean Corpuscular Volume 99fL (79-100) Mean Corpuscular Hemoglobin 32pg (25-35) Mean Corpuscular Hemoglobin Concent 33g/dL (31-37) Red Cell Distribution Width 17.7% (11.5-14.5) Platelet Count 90x10^3/uL (140-400) Neutrophils (%) (Auto) 89% (31-73) Lymphocytes (%) (Auto) 7% (24-48) Monocytes (%) (Auto) 4% (0-9) Eosinophils (%) (Auto) 0% (0-3) Basophils (%) (Auto) 0% (0-3) Neutrophils # (Auto) 10.6x10^3uL (1.8-7.7) Lymphocytes # (Auto) 0.8x10^3/uL (1.0-4.8) Monocytes # (Auto) 0.5x10^3/uL (0.0-1.1) Eosinophils # (Auto) 0.0x10^3/uL (0.0-0.7) Basophils # (Auto) 0.0x10^3/uL (0.0-0.2) Sodium Level 149mmol/L (136-145) Potassium Level 5.3mmol/L (3.5-5.1) Chloride Level 112mmol/L (98-107) Carbon Dioxide Level 25mmol/L (21-32) Anion Gap 12 (6-14) Blood Urea Nitrogen 82mg/dL (8-26) Creatinine 3.1mg/dL (0.7-1.3) Estimated GFR (Cockcroft-Gault) 20.9 BUN/Creatinine Ratio 26 (6-20) Glucose Level 174mg/dL (70-99) Uric Acid 6.1mg/dL (3.5-7.2) Calcium Level 6.3mg/dL (8.5-10.1) Phosphorus Level 8.3mg/dL (2.6-4.7) Magnesium Level 2.7mg/dL (1.8-2.4) Total Bilirubin 7.1mg/dL (0.2-1.0) Aspartate Amino Transf (AST/SGOT) 50U/L (15-37) Alanine Aminotransferase (ALT/SGPT) 127U/L (16-63) Alkaline Phosphatase 83U/L (46-116) Creatine Kinase 158U/L (39-308) Total Protein 5.2g/dL (6.4-8.2) Albumin 2.2g/dL (3.4-5.0) Albumin/Globulin Ratio 0.7 (1.0-1.7) O2 Saturation 95% (92-99) Arterial Blood pH 7.30 (7.35-7.45) Arterial Blood pCO2 at Patient Temp 40mmHg (35-46) Arterial Blood pO2 at Patient Temp 85mmHg (75-108) Arterial Blood HCO3 19mmol/L (21-28) Arterial Blood Base Excess -7mmol/L (-3-3) FiO2 50 Medications Active Scripts Medications Dose Route/Sig Days Date Category Amlodipine Besylate 5 Mg Tablet 5 Mg PO DAILY 07/20/16 Reported Pradaxa (Dabigatran Etexilate Mesylate) 150 Mg Capsule 1 Cap PO BID 07/20/16 Reported Metoprolol Succinate ( Xl ) (Metoprolol Succinate) 100 Mg Tab.er.24h 1 Tab PO DAILY 07/20/16 Reported Comments cxr reviewed, Stable positioning of lines and tubes, as detailed above. RIGHT perihilar opacities, left basal infiltrate vs atelectasis Impression . 1. Expected respiratory failure, status post coronary artery bypass grafting. 2. Cardiogenic shock. and now septic shock 3. Early post-myocardial infarction complicated with ventricular fibrillation , s/p multiple shocks. 4. Status post implantation of Impella from mechanical circulating support. 5. 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 6. Tobacco use in remission. Spirometry revealed an FEV1, which was 3.2 liters preoperatively. 7. Nutrition, currently on tube feeding. 8. History of hypertension. 9. Severe cardiomyopathy ejection fraction 25%. 10. Peripheral artery disease. 11. Atrial fibrillation. 12. Encephalopathy multifactorial (?anoxic, hepatic, metabolic) 13. High grade fever, sepsis, ? source, less likely lungs. CVS and prefers not to have Bronch Plan . 1. d/w Dr Hamilton. Ct chest,abdomen/pelvis 1. AC mode, 8 PEEP, Wean FIO2 as tolerated 2. Continue nutritional support with tube feeding. 3. pressors, Pt does not tolerate dobutamine(increase HR) 4. OFF LASIX, WILL NEED HD 5. Continue BS empiric antibiotics. 6. Postpone trach for now until stable cct 30 min MICHAEL SIEGEL MD Aug 03, 2016 14:41
--- NOTE | 2016-08-03 15:03 | RAD ---
Renal ultrasound, 08/03/2016: History: Renal failure The study was compromised by this ventilator patient's lack of mobility. The left kidney was not visualized. The right kidney measures 10.6 cm in length. There is no evidence of hydronephrosis. There is a 3.2 cm lesion in the anterior aspect of the right kidney. It appears to have cystic and solid components. The right kidney is otherwise unremarkable. The bladder was not visualized due to decompression by Tesfaye catheter. A small amount of ascites is present. IMPRESSION: 1. Small complex right renal mass. 2. No evidence of right hydronephrosis. 3. CT scanning may be useful for further evaluation of the right renal mass and the left kidney which was not visualized on this limited study.
--- NOTE | 2016-08-03 15:21 | PDOC ---
Infectious Disease Note ROS ROS Vital Sign Vital Signs Vital Signs Date Time Temp Pulse Resp B/P Pulse Ox O2 Delivery O2 Flow Rate FiO2 08/03/16 13:50 97 Ventilator 08/03/16 13:00 100.5 125 16 124/60 100.5 Labs Lab Laboratory Tests Test 08/03/16 07:30 08/03/16 07:50 White Blood Count 11.9x10^3/uL (4.0-11.0) Red Blood Count 2.32x10^6/uL (4.30-5.70) Hemoglobin 7.5g/dL (13.0-17.5) Hematocrit 23.0% (39.0-53.0) Mean Corpuscular Volume 99fL (79-100) Mean Corpuscular Hemoglobin 32pg (25-35) Mean Corpuscular Hemoglobin Concent 33g/dL (31-37) Red Cell Distribution Width 17.7% (11.5-14.5) Platelet Count 90x10^3/uL (140-400) Neutrophils (%) (Auto) 89% (31-73) Lymphocytes (%) (Auto) 7% (24-48) Monocytes (%) (Auto) 4% (0-9) Eosinophils (%) (Auto) 0% (0-3) Basophils (%) (Auto) 0% (0-3) Neutrophils # (Auto) 10.6x10^3uL (1.8-7.7) Lymphocytes # (Auto) 0.8x10^3/uL (1.0-4.8) Monocytes # (Auto) 0.5x10^3/uL (0.0-1.1) Eosinophils # (Auto) 0.0x10^3/uL (0.0-0.7) Basophils # (Auto) 0.0x10^3/uL (0.0-0.2) Sodium Level 149mmol/L (136-145) Potassium Level 5.3mmol/L (3.5-5.1) Chloride Level 112mmol/L (98-107) Carbon Dioxide Level 25mmol/L (21-32) Anion Gap 12 (6-14) Blood Urea Nitrogen 82mg/dL (8-26) Creatinine 3.1mg/dL (0.7-1.3) Estimated GFR (Cockcroft-Gault) 20.9 BUN/Creatinine Ratio 26 (6-20) Glucose Level 174mg/dL (70-99) Uric Acid 6.1mg/dL (3.5-7.2) Calcium Level 6.3mg/dL (8.5-10.1) Phosphorus Level 8.3mg/dL (2.6-4.7) Magnesium Level 2.7mg/dL (1.8-2.4) Total Bilirubin 7.1mg/dL (0.2-1.0) Aspartate Amino Transf (AST/SGOT) 50U/L (15-37) Alanine Aminotransferase (ALT/SGPT) 127U/L (16-63) Alkaline Phosphatase 83U/L (46-116) Creatine Kinase 158U/L (39-308) Total Protein 5.2g/dL (6.4-8.2) Albumin 2.2g/dL (3.4-5.0) Albumin/Globulin Ratio 0.7 (1.0-1.7) O2 Saturation 95% (92-99) Arterial Blood pH 7.30 (7.35-7.45) Arterial Blood pCO2 at Patient Temp 40mmHg (35-46) Arterial Blood pO2 at Patient Temp 85mmHg (75-108) Arterial Blood HCO3 19mmol/L (21-28) Arterial Blood Base Excess -7mmol/L (-3-3) FiO2 50 Objective Assessment ? 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 LSFA stenosis, s/p successful angioplasty with a 4.0 x 20 mm balloon Successful removal of a Impella CP percutaneous left ventricular assist device. Primary repair of common femoral artery Small extra-axial fluid collection posteriorly near the right hemispheric vertex consistent with a small area of bleeding CT head 08/[address] 08/01 Resp failure -on vent Afib Cardiogenic shock Severe three-vessel coronary artery disease ST elevation myocardial infarction - intra-op Severe ischemic cardiomyopathy Thrombocytopenia Plan Plan of Care D/c vanc Cont Zosyn/Micafungin Check Procalcitonin F/u cults that are pending F/u labs F/u CT scans Head/Chest/abd/pelvis Critically ill 35 mins CC time Thank you # [id number] CY MUKHERJEE MD Aug 03, 2016 15:21
--- NOTE | 2016-08-03 15:44 | RAD ---
Indication hypoxic. Elevated white blood cell count. Follow-up right frontal subdural hematoma. Sepsis. Noncontrast images of the head were obtained and are compared to an exam 2 days previously. Previously identified hyperdense extra-axial fluid collection near the right hemispheric vertex persists but has partially dissipated and is less conspicuous. No mass effect, midline shift or edema is seen associated with extra-axial fluid collection. Maximal thickness is unchanged to slightly smaller. There is now, however, in contrast to the previous exam, some suggested loss of the delgado-white junction in the right frontal lobe and a bland infarct in the right frontal lobe is suspect. Correlation with clinical findings recommended. There is no hemorrhage. A left hemispheric abnormality is not seen. There is unchanged opacification of the right maxillary sinus and sphenoid sinus. No calvarial abnormality is seen. IMPRESSION: Extra-axial fluid collection compatible with a subdural or epidural hematoma persists posteriorly near the right hemispheric vertex but is less conspicuous. It is no larger and has probably partially dissipated. Suspect bland infarct in the right frontal lobe. The finding is not certain No parenchymal hemorrhage is seen. PQRS Compliance Statement: One or more of the following individualized dose reduction techniques were utilized for this examination: 1. Automated exposure control 2. Adjustment of the mA and/or kV according to patient size 3. Use of iterative reconstruction technique
--- NOTE | 2016-08-03 15:57 | RAD ---
Indication hypoxia. Elevated white cell count. Assess for potential underlying abscess. Axial images of the chest abdomen and pelvis were obtained. The study is limited. No IV or gastrointestinal contrast was administered. Note is made of a previous examination of the chest [address] imaging of the abdomen or pelvis is available. CT chest: Findings. There has been an interval sternotomy. Postoperative changes are noted in the mediastinum. Endotracheal and nasogastric tubes are noted. There are trace bilateral pleural effusions. There is significant volume loss in both lower lobes compatible with atelectasis or pneumonia. Small nodule seen previously in the right lower lobe is obscured on today's examination secondary to the atelectatic lung. CT abdomen and pelvis: Findings. There is diffuse soft tissue swelling of the abdominal wall suggesting a systemic process such as anasarca. Tesfaye catheter is noted in the urinary bladder. Air in the urinary bladder is likely a function of the instrumentation. No abnormality is seen associated with the liver or spleen and the gallbladder appears grossly normal. There is some perihepatic fluid representing a new finding compared to the CT examination 12 days ago. Some additional fluid is seen along the right paracolic gutter. There is slight mesenteric stranding which is nonspecific but may be secondary to the abdominal fluid. No definite abnormality is seen associated with the pancreas or either kidney. Stranding surrounding the kidneys, new, is nonspecific. A definite acute finding in the abdomen is not seen. A focal inflammatory process is not seen. No focal mass or inflammatory process is apparent in the pelvis. IMPRESSION: Trace bilateral pleural effusions. Significant volume loss is present in both lower lobes. This finding would be consistent with atelectasis or pneumonia. Perihepatic fluid and fluid along the right paracolic gutter. This is new relative to the previous exam. Mild stranding in the mesentery and surrounding the kidneys is nonspecific but may be a function of the abdominal fluid. Diffuse soft tissue swelling suggesting a systemic process such as anasarca. A focal mass or definite inflammatory process in the abdomen or pelvis is not seen PQRS Compliance Statement: One or more of the following individualized dose reduction techniques were utilized for this examination: 1. Automated exposure control 2. Adjustment of the mA and/or kV according to patient size 3. Use of iterative reconstruction technique
[2016-08-03 16:21] LABS: BASO % 0 % (0-3); EOS % 0 % (0-3); HEMATOCRIT 26.5 % (39.0-53.0); HEMOGLOBIN 8.6 g/dL (13.0-17.5); LYMPH # 0.6 x10^3/uL (1.0-4.8); LYMPH % 5 % (24-48); MEAN CORPUSCULAR HEMOGLOBIN 32 pg (25-35); MEAN CORPUSCULAR HGB CONC 33 g/dL (31-37); MEAN CORPUSCULAR VOLUME 99 fL (79-100); MONO % 4 % (0-9); NEUT % 91 % (31-73); PLATELET COUNT 82 x10^3/uL (140-400); RED BLOOD COUNT 2.69 x10^6/uL (4.30-5.70); RED CELL DISTRIBUTION WIDTH 16.3 % (11.5-14.5); WHITE BLOOD COUNT 11.2 x10^3/uL (4.0-11.0)
--- NOTE | 2016-08-03 16:28 | PDOC ---
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 Now with sepsis, hypotension, and worsening JAKE. Temp HDC insertion requested by Renal Post-Procedure Diagnosis Post-Procedure Diagnosis Same Procedure Performed Procedure Performed Bedside ICU sono guided temp HDC insertion Type of Anesthesia Type of Anesthesia Local Estimated Blood Loss EBL: Trace Drain/Tubes Drains/Tubes Rt IJ 14F 20cm Schon temp HDC Condition of Patient Condition of Patient No change. Poorly responsive on vent. No apparent complication. Disposition Disposition STAT pCXR requested for temp HDC position. Full report to follow. DEEPA PALENCIA MD Aug 03, 2016 16:28
--- NOTE | 2016-08-03 16:34 | RAD ---
Bedside ultrasound-guided right IJ temporary hemodialysis catheter insertion Indication: 56-year-old male with coronary artery disease, STEMI, status post coronary artery bypass surgery. Now with sepsis, hypotension, and worsening acute kidney injury. Bedside temporary dialysis catheter insertion requested by renal. Anesthesia: Local only Sterility: All elements of maximal sterile barrier technique, including the use of a cap, mask, sterile gown, sterile gloves, large sterile sheet, appropriate hand hygiene, and 2% chlorhexidine for cutaneous antisepsis (or acceptable alternative antiseptic per current guidelines) were utilized. Procedure: Informed consent was obtained from the patient's . This procedure was performed bedside in ICU. Preliminary ultrasound examination of right neck revealed wide patency of right internal jugular vein, which was documented with a single hard copy ultrasound image. Right neck was then prepped and draped in the usual sterile fashion, utilizing all elements of maximal sterile barrier technique, as described above. Using aseptic technique, local anesthesia, direct ultrasound guidance, and the micropuncture system, successful percutaneous entry was achieved into right internal jugular vein. The right IJ venostomy tract was then dilated and a 14 Macedonian 20 cm temporary hemodialysis catheter was easily advanced centrally over an angiographic guidewire. The catheter was documented to flush and aspirate normally, was packed, and was secured at the right neck exit site utilizing suture and sterile dressing. Patient tolerated the procedure well without apparent complication. A stat portable chest x-ray was requested for line position. Impression: Successful, uneventful ultrasound guided placement of right IJ 14 Macedonian 20 cm temporary hemodialysis catheter, bedside in ICU, as described.
--- NOTE | 2016-08-03 16:39 | RAD ---
Indication insertion of temporary dialysis catheter. A single view of the chest was obtained at 1632 and is compared to a study approximately 2 1/2 hours earlier. Bilateral pleural effusions persist. Postoperative changes are noted. Endotracheal and nasogastric tubes are noted as well as a right PICC line. Relative to the previous exam a right-sided dialysis catheter has been placed. The tip is positioned near the SVC right atrial junction. No complication is seen and specifically there is no evidence of pneumothorax. IMPRESSION: Interval placement of dialysis catheter. No complication seen
[2016-08-03 16:44] LABS: NUCLEATED RBC 4; PLT ESTIMATE DECREASED (ADEQUATE)
[2016-08-03 16:45] LABS: ANISOCYTOSIS SLIGHT; POIKILOCYTOSIS SLIGHT; POLYCHROMASIA PRESENT
[2016-08-03 16:47] LABS: TOXIC GRANULATION SLIGHT
[2016-08-03 16:48] LABS: BLOOD UREA NITROGEN 95 mg/dL (8-26); CALCIUM 7.1 mg/dL (8.5-10.1); CHLORIDE 113 mmol/L (98-107); CREATININE 3.6 mg/dL (0.7-1.3); GFR 17.6; GLUCOSE 184 mg/dL (70-99); POTASSIUM 5.3 mmol/L (3.5-5.1); SODIUM 152 mmol/L (136-145)
[2016-08-03 16:49] LABS: ANION GAP 14 (6-14); CARBON DIOXIDE 25 mmol/L (21-32)
[2016-08-03 17:29] LABS: BILIRUBIN,URINE SMALL (NEG); GLUCOSE,URINE NEGATIVE (NEG); NITRITE,URINE NEGATIVE (NEG); PROTEIN,URINE 100 mg/dL (NEG-TRACE)
[2016-08-03 17:36] LABS: BACTERIA,URINE 0 /HPF (0-FEW); SQUAMOUS EPITHELIAL CELL,UR OCC /LPF; WBC,URINE 0 /HPF (0-4)
[2016-08-03 17:48] LABS: INR 1.5 (0.8-1.1); PROTHROMBIN TIME PATIENT 17.4 SEC (11.7-14.0)
[2016-08-03] MEDS: PIPERACILLIN/TAZOBACTAM 2.25 GM in IV NORMAL SALINE 50ML 50 ML IV SCH (17:51)
[2016-08-03] MEDS: VASOPRESSIN 40 UNIT in IV DEXTROSE 5% 100 ML IV PRN (18:28)
[2016-08-03] MEDS ORDERED: DEXTROSE 50% 25 GM / 50ML DISP.SYRIN. IV PRN (18:30)
[2016-08-03] MEDS ORDERED: IV NORMAL SALINE 1000ML BAG 1,000 ML IV PRN ×2 (18:33)
[2016-08-03] MEDS: MICAFUNGIN 100 MG in IV DEXTROSE 5% 100 ML IV SCH (18:36)
[2016-08-03] MEDS: INSULIN ASPART 300 UNITS/3 ML INSULN.PEN SQ SCH (18:37)
[2016-08-03] MEDS ORDERED: DIALYSIS PATIENT. MC PRN (18:45)
[2016-08-03] MEDS: ATORVASTATIN CALCIUM 40 MG TABLET. PO SCH (21:53)
[2016-08-04] VITALS (24 sets, daily range): BP systolic 98–174; BP diastolic 51–76
[2016-08-04] MEDS: PIPERACILLIN/TAZOBACTAM 2.25 GM in IV NORMAL SALINE 50ML 50 ML IV SCH ×4 (01:37→17:45)
[2016-08-04] MEDS: SODIUM BICARBONATE VIAL 150 MEQ in IV DEXTROSE 5% 1,000 ML IV SCH (04:31)
[2016-08-04] MEDS: DEXMEDETOMIDINE 200 MCG in IV NORMAL SALINE 50ML 48 ML IV PRN (05:20)
[2016-08-04] MEDS ORDERED: IV RINGERS,LACTATED 1000ML 1,000 ML IV SCH (07:00)
[2016-08-04] MEDS ORDERED: MORPHINE SULFATE 2 MG/ML DISP.SYRIN. IV PRN (07:00)
[2016-08-04] MEDS ORDERED: LIDOCAINE 1% 1 ML SYRINGE. ID PRN (07:00)
[2016-08-04] MEDS ORDERED: fentaNYL PF VIAL 100 MCG/2 ML VIAL IV PRN ×2 (07:00)
[2016-08-04] MEDS ORDERED: HYDROmorphone 2 MG/ML VIAL IV PRN (07:00)
[2016-08-04 07:08] LABS: BASO % 0 % (0-3); EOS % 1 % (0-3); HEMATOCRIT 23.9 % (39.0-53.0); LYMPH # 0.5 x10^3/uL (1.0-4.8); LYMPH % 8 % (24-48); MEAN CORPUSCULAR HEMOGLOBIN 32 pg (25-35); MEAN CORPUSCULAR HGB CONC 34 g/dL (31-37); MEAN CORPUSCULAR VOLUME 95 fL (79-100); MONO % 4 % (0-9); NEUT % 88 % (31-73); PLATELET COUNT 68 x10^3/uL (140-400); RED BLOOD COUNT 2.51 x10^6/uL (4.30-5.70); RED CELL DISTRIBUTION WIDTH 16.2 % (11.5-14.5); WHITE BLOOD COUNT 6.6 x10^3/uL (4.0-11.0)
[2016-08-04 07:32] LABS: ALBUMIN/GLOBULIN RATIO 0.7 (1.0-1.7); CALCIUM 7.2 mg/dL (8.5-10.1); CREATININE 3.1 mg/dL (0.7-1.3); GFR 20.9; MAGNESIUM 2.2 mg/dL (1.8-2.4); POTASSIUM 3.5 mmol/L (3.5-5.1); TOTAL BILIRUBIN 4.8 mg/dL (0.2-1.0); TOTAL PROTEIN 4.8 g/dL (6.4-8.2)
[2016-08-04] MEDS ORDERED: IV NORMAL SALINE 1000ML BAG 1,000 ML IV PRN ×2 (07:44)
[2016-08-04] MEDS ORDERED: ALBUMIN HUMAN 25% 200 ML IV PRN (07:45)
[2016-08-04] MEDS ORDERED: 0.9 % SODIUM CHLORIDE 10 ML DISP.SYRIN. IV PRN ×2 (07:45)
[2016-08-04] MEDS ORDERED: DIALYSIS PATIENT. MC PRN (07:45)
[2016-08-04] MEDS ORDERED: diphenhydrAMINE 50 MG/ML VIAL IV PRN ×2 (07:45)
[2016-08-04] MEDS: INSULIN ASPART 300 UNITS/3 ML INSULN.PEN SQ SCH ×3 (07:45→16:44)
--- NOTE | 2016-08-04 08:08 | PDOC ---
Infectious Disease Note Subjective Subjective Intubated but alert some ROS ROS Unobtainable Vital Sign Vital Signs Vital Signs Date Time Temp Pulse Resp B/P Pulse Ox O2 Delivery O2 Flow Rate FiO2 08/04/16 07:27 99 Ventilator 08/04/16 07:00 72 20 98/56 08/04/16 06:00 97.4 97.4 Physical Exam PHYSICAL EXAM GENERAL: NAD, Alert, intubated. 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 Left leg wound clean. Chest wound dressed. Right groin previous art line site clean IV: RUE PICC, HD cath, Left art line Labs Lab Laboratory Tests Test 08/03/16 15:55 08/03/16 16:00 08/03/16 17:00 08/03/16 17:08 Urine Collection Type Unknown Urine Color Keke Urine Clarity Turbid Urine pH 5.0 Urine Specific Powell 1.020 Urine Protein 100mg/dL (NEG-TRACE) Urine Glucose (UA) Negativemg/dL (NEG) Urine Ketones (Stick) Negativemg/dL (NEG) Urine Blood Moderate (NEG) Urine Nitrite Negative (NEG) Urine Bilirubin Small (NEG) Urine Urobilinogen Dipstick 1.0mg/dL (0.2 mg/dL) Urine Leukocyte Esterase Negative (NEG) Urine RBC 6-10/HPF (0-2) Urine WBC 0/HPF (0-4) Urine Squamous Epithelial Cells Occ/LPF Urine Amorphous Sediment Present/HPF Urine Bacteria 0/HPF (0-FEW) Urine Hyaline Casts Few/HPF Urine Granular Casts Few/HPF Urine Mucus Slight/LPF White Blood Count 11.2x10^3/uL (4.0-11.0) Red Blood Count 2.69x10^6/uL (4.30-5.70) Hemoglobin 8.6g/dL (13.0-17.5) Hematocrit 26.5% (39.0-53.0) Mean Corpuscular Volume 99fL (79-100) Mean Corpuscular Hemoglobin 32pg (25-35) Mean Corpuscular Hemoglobin Concent 33g/dL (31-37) Red Cell Distribution Width 16.3% (11.5-14.5) Platelet Count 82x10^3/uL (140-400) Neutrophils (%) (Auto) 91% (31-73) Lymphocytes (%) (Auto) 5% (24-48) Monocytes (%) (Auto) 4% (0-9) Eosinophils (%) (Auto) 0% (0-3) Basophils (%) (Auto) 0% (0-3) Neutrophils # (Auto) 10.1x10^3uL (1.8-7.7) Lymphocytes # (Auto) 0.6x10^3/uL (1.0-4.8) Monocytes # (Auto) 0.4x10^3/uL (0.0-1.1) Eosinophils # (Auto) 0.0x10^3/uL (0.0-0.7) Basophils # (Auto) 0.0x10^3/uL (0.0-0.2) Segmented Neutrophils % 75% (35-66) Band Neutrophils % 16% (0-9) Lymphocytes % 7% (24-48) Monocytes % 2% (0-10) Nucleated Red Blood Cells 4 Toxic Granulation Slight Dohle Bodies Present Platelet Estimate Decreased (ADEQUATE) Polychromasia Present Poikilocytosis Slight Basophilic Stippling Present Anisocytosis Slight Sodium Level 152mmol/L (136-145) Potassium Level 5.3mmol/L (3.5-5.1) Chloride Level 113mmol/L (98-107) Carbon Dioxide Level 25mmol/L (21-32) Anion Gap 14 (6-14) Blood Urea Nitrogen 95mg/dL (8-26) Creatinine 3.6mg/dL (0.7-1.3) Estimated GFR (Cockcroft-Gault) 17.6 Glucose Level 184mg/dL (70-99) Calcium Level 7.1mg/dL (8.5-10.1) Procalcitonin 44.51ng/mL (0.00-0.10) Digoxin Level 1.9ng/mL (0.9-2.0) Digoxin Last Dose Date 08/02/16 Digoxin Last Dose Time 0856 Prothrombin Time 17.4SEC (11.7-14.0) Prothromb Time International Ratio 1.5 (0.8-1.1) Activated Partial Thromboplast Time 44SEC (24-38) Glucose (Fingerstick) 165mg/dL (70-99) Test 08/04/16 07:00 White Blood Count 6.6x10^3/uL (4.0-11.0) Red Blood Count 2.51x10^6/uL (4.30-5.70) Hemoglobin 8.0g/dL (13.0-17.5) Hematocrit 23.9% (39.0-53.0) Mean Corpuscular Volume 95fL (79-100) Mean Corpuscular Hemoglobin 32pg (25-35) Mean Corpuscular Hemoglobin Concent 34g/dL (31-37) Red Cell Distribution Width 16.2% (11.5-14.5) Platelet Count 68x10^3/uL (140-400) Neutrophils (%) (Auto) 88% (31-73) Lymphocytes (%) (Auto) 8% (24-48) Monocytes (%) (Auto) 4% (0-9) Eosinophils (%) (Auto) 1% (0-3) Basophils (%) (Auto) 0% (0-3) Neutrophils # (Auto) 5.8x10^3uL (1.8-7.7) Lymphocytes # (Auto) 0.5x10^3/uL (1.0-4.8) Monocytes # (Auto) 0.2x10^3/uL (0.0-1.1) Eosinophils # (Auto) 0.1x10^3/uL (0.0-0.7) Basophils # (Auto) 0.0x10^3/uL (0.0-0.2) Sodium Level 144mmol/L (136-145) Potassium Level 3.5mmol/L (3.5-5.1) Chloride Level 103mmol/L (98-107) Carbon Dioxide Level 30mmol/L (21-32) Anion Gap 11 (6-14) Blood Urea Nitrogen 69mg/dL (8-26) Creatinine 3.1mg/dL (0.7-1.3) Estimated GFR (Cockcroft-Gault) 20.9 BUN/Creatinine Ratio 22 (6-20) Glucose Level 186mg/dL (70-99) Calcium Level 7.2mg/dL (8.5-10.1) Phosphorus Level 7.0mg/dL (2.6-4.7) Magnesium Level 2.2mg/dL (1.8-2.4) Total Bilirubin 4.8mg/dL (0.2-1.0) Aspartate Amino Transf (AST/SGOT) 49U/L (15-37) Alanine Aminotransferase (ALT/SGPT) 96U/L (16-63) Alkaline Phosphatase 69U/L (46-116) Total Protein 4.8g/dL (6.4-8.2) Albumin 2.0g/dL (3.4-5.0) Albumin/Globulin Ratio 0.7 (1.0-1.7) Objective Assessment 1. ? sepsis on Vanc/Zosyn/Micafungin 08/02 - improved - off levophed on min vasopressin. Elevated Procalcitonin - renal failure playing into it 2. 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 Perihepatic fluid on CT abd/pelvis 4. JAKE - s/p HD 5. S/p CABG x 3 ,S/p left ventricular assist device 07/25 6. S/p Chest wound closure 07/27 7. 07/28 - S/p Left external iliac artery subtotal occlusion, s/p successful angioplasty with a 7 x 80 mm balloon. LSFA stenosis, s/p successful angioplasty with a 4.0 x 20 mm balloon Successful removal of a Impella CP percutaneous left ventricular assist device. Primary repair of common femoral artery 8. Small extra-axial fluid collection posteriorly near the right hemispheric vertex consistent with a small area of bleeding CT head 08/01 - stable on recent CT 9. Sinusitis CT 08/01 10. Resp failure -on vent 11. Afib 12. Cardiogenic shock 13. Severe three-vessel coronary artery disease 14. ST elevation myocardial infarction - intra-op 15. Severe ischemic cardiomyopathy 16. Thrombocytopenia Plan Plan of Care Consider d/c pepcid could cause platelet decrease Cont Zosyn/Micafungin F/u cults that are pending F/u labs May need further eval of perihepatic fluid if worsens but may dissipate with fluid control Critically ill but better CY MUKHERJEE MD Aug 04, 2016 08:08
--- NOTE | 2016-08-04 08:30 | PDOC ---
Dialysis Progress Note Dialysis Note Dialysis Note Seen on Hemodialysis, tolerating treatment Okay so far Vitals on Hemodialysis: 124/64 88 (by dominique) 97.3 Remains on Vasopressin General Appearance: Awake: on the Vent - follows commands Neck: No JVD or JVP Chest: CTA Colt, few coarse rales Heart: S1 S2 Abdomen - Soft NTND Extremities - + Edema ARF/ ATN : Dialysis as below F 180 NR 3.0 Hrs 4 K 3.0 Ca 140 Na 30 HC03 Qb 350 + Qd 500+ Heparin 0 Units Uf 1-2 Kgs or to dry weight as tolerated May give 25-50 gms of 25% Albumin if needed to maintain Hemodynamic stability Treatment plan reviewed and discussed with application release manager Vitals Vital Signs Vital Signs Date Time Temp Pulse Resp B/P Pulse Ox O2 Delivery O2 Flow Rate FiO2 08/04/16 08:00 97.5 67 22 100/52 99 Ventilator 97.5 07/31/16 06:08 2.0 Labs Last Labs Laboratory Tests Test 08/03/16 07:30 08/03/16 07:50 08/03/16 15:55 08/03/16 16:00 White Blood Count 11.9x10^3/uL (4.0-11.0) 11.2x10^3/uL (4.0-11.0) Red Blood Count 2.32x10^6/uL (4.30-5.70) 2.69x10^6/uL (4.30-5.70) Hemoglobin 7.5g/dL (13.0-17.5) 8.6g/dL (13.0-17.5) Hematocrit 23.0% (39.0-53.0) 26.5% (39.0-53.0) Mean Corpuscular Volume 99fL (79-100) 99fL (79-100) Mean Corpuscular Hemoglobin 32pg (25-35) 32pg (25-35) Mean Corpuscular Hemoglobin Concent 33g/dL (31-37) 33g/dL (31-37) Red Cell Distribution Width 17.7% (11.5-14.5) 16.3% (11.5-14.5) Platelet Count 90x10^3/uL (140-400) 82x10^3/uL (140-400) Neutrophils (%) (Auto) 89% (31-73) 91% (31-73) Lymphocytes (%) (Auto) 7% (24-48) 5% (24-48) Monocytes (%) (Auto) 4% (0-9) 4% (0-9) Eosinophils (%) (Auto) 0% (0-3) 0% (0-3) Basophils (%) (Auto) 0% (0-3) 0% (0-3) Neutrophils # (Auto) 10.6x10^3uL (1.8-7.7) 10.1x10^3uL (1.8-7.7) Lymphocytes # (Auto) 0.8x10^3/uL (1.0-4.8) 0.6x10^3/uL (1.0-4.8) Monocytes # (Auto) 0.5x10^3/uL (0.0-1.1) 0.4x10^3/uL (0.0-1.1) Eosinophils # (Auto) 0.0x10^3/uL (0.0-0.7) 0.0x10^3/uL (0.0-0.7) Basophils # (Auto) 0.0x10^3/uL (0.0-0.2) 0.0x10^3/uL (0.0-0.2) Sodium Level 149mmol/L (136-145) 152mmol/L (136-145) Potassium Level 5.3mmol/L (3.5-5.1) 5.3mmol/L (3.5-5.1) Chloride Level 112mmol/L (98-107) 113mmol/L (98-107) Carbon Dioxide Level 25mmol/L (21-32) 25mmol/L (21-32) Anion Gap 12 (6-14) 14 (6-14) Blood Urea Nitrogen 82mg/dL (8-26) 95mg/dL (8-26) Creatinine 3.1mg/dL (0.7-1.3) 3.6mg/dL (0.7-1.3) Estimated GFR (Cockcroft-Gault) 20.9 17.6 BUN/Creatinine Ratio 26 (6-20) Glucose Level 174mg/dL (70-99) 184mg/dL (70-99) Uric Acid 6.1mg/dL (3.5-7.2) Calcium Level 6.3mg/dL (8.5-10.1) 7.1mg/dL (8.5-10.1) Phosphorus Level 8.3mg/dL (2.6-4.7) Magnesium Level 2.7mg/dL (1.8-2.4) Total Bilirubin 7.1mg/dL (0.2-1.0) Aspartate Amino Transf (AST/SGOT) 50U/L (15-37) Alanine Aminotransferase (ALT/SGPT) 127U/L (16-63) Alkaline Phosphatase 83U/L (46-116) Creatine Kinase 158U/L (39-308) Total Protein 5.2g/dL (6.4-8.2) Albumin 2.2g/dL (3.4-5.0) Albumin/Globulin Ratio 0.7 (1.0-1.7) O2 Saturation 95% (92-99) Arterial Blood pH 7.30 (7.35-7.45) Arterial Blood pCO2 at Patient Temp 40mmHg (35-46) Arterial Blood pO2 at Patient Temp 85mmHg (75-108) Arterial Blood HCO3 19mmol/L (21-28) Arterial Blood Base Excess -7mmol/L (-3-3) FiO2 50 Urine Collection Type Unknown Urine Color Keke Urine Clarity Turbid Urine pH 5.0 Urine Specific [place] 1.020 Urine Protein 100mg/dL (NEG-TRACE) Urine Glucose (UA) Negativemg/dL (NEG) Urine Ketones (Stick) Negativemg/dL (NEG) Urine Blood Moderate (NEG) Urine Nitrite Negative (NEG) Urine Bilirubin Small (NEG) Urine Urobilinogen Dipstick 1.0mg/dL (0.2 mg/dL) Urine Leukocyte Esterase Negative (NEG) Urine RBC 6-10/HPF (0-2) Urine WBC 0/HPF (0-4) Urine Squamous Epithelial Cells Occ/LPF Urine Amorphous Sediment Present/HPF Urine Bacteria 0/HPF (0-FEW) Urine Hyaline Casts Few/HPF Urine Granular Casts Few/HPF Urine Mucus Slight/LPF Segmented Neutrophils % 75% (35-66) Band Neutrophils % 16% (0-9) Lymphocytes % 7% (24-48) Monocytes % 2% (0-10) Nucleated Red Blood Cells 4 Toxic Granulation Slight Dohle Bodies Present Platelet Estimate Decreased (ADEQUATE) Polychromasia Present Poikilocytosis Slight Basophilic Stippling Present Anisocytosis Slight Procalcitonin 44.51ng/mL (0.00-0.10) Digoxin Level 1.9ng/mL (0.9-2.0) Digoxin Last Dose Date 08/02/16 Digoxin Last Dose Time 0856 Test 08/03/16 17:00 08/03/16 17:08 08/04/16 07:00 Prothrombin Time 17.4SEC (11.7-14.0) Prothromb Time International Ratio 1.5 (0.8-1.1) Activated Partial Thromboplast Time 44SEC (24-38) Glucose (Fingerstick) 165mg/dL (70-99) White Blood Count 6.6x10^3/uL (4.0-11.0) Red Blood Count 2.51x10^6/uL (4.30-5.70) Hemoglobin 8.0g/dL (13.0-17.5) Hematocrit 23.9% (39.0-53.0) Mean Corpuscular Volume 95fL (79-100) Mean Corpuscular Hemoglobin 32pg (25-35) Mean Corpuscular Hemoglobin Concent 34g/dL (31-37) Red Cell Distribution Width 16.2% (11.5-14.5) Platelet Count 68x10^3/uL (140-400) Neutrophils (%) (Auto) 88% (31-73) Lymphocytes (%) (Auto) 8% (24-48) Monocytes (%) (Auto) 4% (0-9) Eosinophils (%) (Auto) 1% (0-3) Basophils (%) (Auto) 0% (0-3) Neutrophils # (Auto) 5.8x10^3uL (1.8-7.7) Lymphocytes # (Auto) 0.5x10^3/uL (1.0-4.8) Monocytes # (Auto) 0.2x10^3/uL (0.0-1.1) Eosinophils # (Auto) 0.1x10^3/uL (0.0-0.7) Basophils # (Auto) 0.0x10^3/uL (0.0-0.2) Sodium Level 144mmol/L (136-145) Potassium Level 3.5mmol/L (3.5-5.1) Chloride Level 103mmol/L (98-107) Carbon Dioxide Level 30mmol/L (21-32) Anion Gap 11 (6-14) Blood Urea Nitrogen 69mg/dL (8-26) Creatinine 3.1mg/dL (0.7-1.3) Estimated GFR (Cockcroft-Gault) 20.9 BUN/Creatinine Ratio 22 (6-20) Glucose Level 186mg/dL (70-99) Calcium Level 7.2mg/dL (8.5-10.1) Phosphorus Level 7.0mg/dL (2.6-4.7) Magnesium Level 2.2mg/dL (1.8-2.4) Total Bilirubin 4.8mg/dL (0.2-1.0) Aspartate Amino Transf (AST/SGOT) 49U/L (15-37) Alanine Aminotransferase (ALT/SGPT) 96U/L (16-63) Alkaline Phosphatase 69U/L (46-116) Total Protein 4.8g/dL (6.4-8.2) Albumin 2.0g/dL (3.4-5.0) Albumin/Globulin Ratio 0.7 (1.0-1.7) Laboratory Tests Test 08/03/16 15:55 08/03/16 16:00 08/03/16 17:00 08/03/16 17:08 Urine Collection Type Unknown Urine Color Keke Urine Clarity Turbid Urine pH 5.0 Urine Specific [place] 1.020 Urine Protein 100mg/dL (NEG-TRACE) Urine Glucose (UA) Negativemg/dL (NEG) Urine Ketones (Stick) Negativemg/dL (NEG) Urine Blood Moderate (NEG) Urine Nitrite Negative (NEG) Urine Bilirubin Small (NEG) Urine Urobilinogen Dipstick 1.0mg/dL (0.2 mg/dL) Urine Leukocyte Esterase Negative (NEG) Urine RBC 6-10/HPF (0-2) Urine WBC 0/HPF (0-4) Urine Squamous Epithelial Cells Occ/LPF Urine Amorphous Sediment Present/HPF Urine Bacteria 0/HPF (0-FEW) Urine Hyaline Casts Few/HPF Urine Granular Casts Few/HPF Urine Mucus Slight/LPF White Blood Count 11.2x10^3/uL (4.0-11.0) Red Blood Count 2.69x10^6/uL (4.30-5.70) Hemoglobin 8.6g/dL (13.0-17.5) Hematocrit 26.5% (39.0-53.0) Mean Corpuscular Volume 99fL (79-100) Mean Corpuscular Hemoglobin 32pg (25-35) Mean Corpuscular Hemoglobin Concent 33g/dL (31-37) Red Cell Distribution Width 16.3% (11.5-14.5) Platelet Count 82x10^3/uL (140-400) Neutrophils (%) (Auto) 91% (31-73) Lymphocytes (%) (Auto) 5% (24-48) Monocytes (%) (Auto) 4% (0-9) Eosinophils (%) (Auto) 0% (0-3) Basophils (%) (Auto) 0% (0-3) Neutrophils # (Auto) 10.1x10^3uL (1.8-7.7) Lymphocytes # (Auto) 0.6x10^3/uL (1.0-4.8) Monocytes # (Auto) 0.4x10^3/uL (0.0-1.1) Eosinophils # (Auto) 0.0x10^3/uL (0.0-0.7) Basophils # (Auto) 0.0x10^3/uL (0.0-0.2) Segmented Neutrophils % 75% (35-66) Band Neutrophils % 16% (0-9) Lymphocytes % 7% (24-48) Monocytes % 2% (0-10) Nucleated Red Blood Cells 4 Toxic Granulation Slight Dohle Bodies Present Platelet Estimate Decreased (ADEQUATE) Polychromasia Present Poikilocytosis Slight Basophilic Stippling Present Anisocytosis Slight Sodium Level 152mmol/L (136-145) Potassium Level 5.3mmol/L (3.5-5.1) Chloride Level 113mmol/L (98-107) Carbon Dioxide Level 25mmol/L (21-32) Anion Gap 14 (6-14) Blood Urea Nitrogen 95mg/dL (8-26) Creatinine 3.6mg/dL (0.7-1.3) Estimated GFR (Cockcroft-Gault) 17.6 Glucose Level 184mg/dL (70-99) Calcium Level 7.1mg/dL (8.5-10.1) Procalcitonin 44.51ng/mL (0.00-0.10) Digoxin Level 1.9ng/mL (0.9-2.0) Digoxin Last Dose Date 08/02/16 Digoxin Last Dose Time 0856 Prothrombin Time 17.4SEC (11.7-14.0) Prothromb Time International Ratio 1.5 (0.8-1.1) Activated Partial Thromboplast Time 44SEC (24-38) Glucose (Fingerstick) 165mg/dL (70-99) Test 08/04/16 07:00 White Blood Count 6.6x10^3/uL (4.0-11.0) Red Blood Count 2.51x10^6/uL (4.30-5.70) Hemoglobin 8.0g/dL (13.0-17.5) Hematocrit 23.9% (39.0-53.0) Mean Corpuscular Volume 95fL (79-100) Mean Corpuscular Hemoglobin 32pg (25-35) Mean Corpuscular Hemoglobin Concent 34g/dL (31-37) Red Cell Distribution Width 16.2% (11.5-14.5) Platelet Count 68x10^3/uL (140-400) Neutrophils (%) (Auto) 88% (31-73) Lymphocytes (%) (Auto) 8% (24-48) Monocytes (%) (Auto) 4% (0-9) Eosinophils (%) (Auto) 1% (0-3) Basophils (%) (Auto) 0% (0-3) Neutrophils # (Auto) 5.8x10^3uL (1.8-7.7) Lymphocytes # (Auto) 0.5x10^3/uL (1.0-4.8) Monocytes # (Auto) 0.2x10^3/uL (0.0-1.1) Eosinophils # (Auto) 0.1x10^3/uL (0.0-0.7) Basophils # (Auto) 0.0x10^3/uL (0.0-0.2) Sodium Level 144mmol/L (136-145) Potassium Level 3.5mmol/L (3.5-5.1) Chloride Level 103mmol/L (98-107) Carbon Dioxide Level 30mmol/L (21-32) Anion Gap 11 (6-14) Blood Urea Nitrogen 69mg/dL (8-26) Creatinine 3.1mg/dL (0.7-1.3) Estimated GFR (Cockcroft-Gault) 20.9 BUN/Creatinine Ratio 22 (6-20) Glucose Level 186mg/dL (70-99) Calcium Level 7.2mg/dL (8.5-10.1) Phosphorus Level 7.0mg/dL (2.6-4.7) Magnesium Level 2.2mg/dL (1.8-2.4) Total Bilirubin 4.8mg/dL (0.2-1.0) Aspartate Amino Transf (AST/SGOT) 49U/L (15-37) Alanine Aminotransferase (ALT/SGPT) 96U/L (16-63) Alkaline Phosphatase 69U/L (46-116) Total Protein 4.8g/dL (6.4-8.2) Albumin 2.0g/dL (3.4-5.0) Albumin/Globulin Ratio 0.7 (1.0-1.7) Assessment Assessment Problems Medical Problems: (1) CAD (coronary artery disease), [place] coronary artery Status: Acute (2) Chest pain Status: Acute (3) STEMI (ST elevation myocardial infarction) Status: Acute Problems: Plan Plan of Care Problems Medical Problems: (1) CAD (coronary artery disease), [place] coronary artery Status: Acute (2) Chest pain Status: Acute (3) STEMI (ST elevation myocardial infarction) Status: Acute ELIZABETH LOPEZ MD Aug 04, 2016 08:29
[2016-08-04] MEDS: IPRATROPIUM BROMIDE 0.5 MG/2.5 ML NEBU. NEB SCH ×4 (08:33→20:22)
--- NOTE | 2016-08-04 08:59 | CONS ---
DATE OF CONSULTATION: 08/03/2016 INFECTIOUS DISEASE CONSULTATION NOTE PATIENT'S ROOM: ICU 10. REQUESTING PHYSICIAN: ____. REASON FOR CONSULTATION: Increased temperature and white blood cell count. HISTORY OF PRESENT ILLNESS: The patient is intubated and sedated, unable to provide any past medical history, history of present illness, review of systems. It is obtained mainly from the chart. The patient is a 56-year-old gentleman who presented approximately on 07/20/2016 with complaints of crushing chest pain. He does have a history of atrial fibrillation. He was noted to have ST elevations and troponin leak, was taken emergently to [facility]. He was found to have 3-vessel disease with a proximal 75% stenosis of the LAD, 80% stenosis of ____ obtuse marginal and proximal and mid tight lesions of the RCA. He was somewhat stabilized, but then taken to the operating room on 07/25/2016, underwent a CABG x 3 and a left ventricular assist device placement. He went back to the operating room on the to undergo sternal wound closure. On the , he was found to have a left external iliac artery subtotal occlusion and underwent angioplasty and underwent removal of the Impella CP percutaneous left ventricular assist device and then underwent primary repair of common femoral artery. Approximately, on the , he was noted to be moving some extremities, but not following commands. He then underwent a CT scan of his head, which showed a small extra-axial fluid collection posteriorly near the right hemispheric vertex consistent with a small area of bleed on his CT on 08/01/2016. Additionally, he was found to have sinusitis. He has remained on the ventilator. On the , he was noted to have fevers as high as 103. He was placed on vancomycin, Zosyn, and micafungin. His white blood cell count increased from 11.7 to 12.5 and now up to 16.1 on the . His creatinine increased from 1.2 to 3.1 today. He has remained on 5 of Levophed. He has since had his chest tubes removed. Cultures thus far have been negative, but I have been consulted. PAST MEDICAL HISTORY: Positive for atrial fibrillation, hypertension, hyperlipidemia. PAST SURGICAL HISTORY: He has undergone the above-mentioned procedures. REVIEW OF SYSTEMS: Unobtainable. SOCIAL HISTORY: He is a smoker for 40-50 years. Rare alcohol. He is . FAMILY HISTORY: Positive for heart disease. ALLERGIES: No known drug allergies. CURRENT MEDICATIONS: Include micafungin, Levophed, Zosyn, Precedex, vancomycin, amiodarone, aspirin, Lipitor, digoxin, Pepcid, Lasix, hydralazine. Other meds are available, have been reviewed in the chart. PHYSICAL EXAMINATION: VITAL SIGNS: He had temperature as high as 104.8, rectally at 3:00; currently, 100.5, rectally; pulse 125; respirations 16; blood pressure 124/60, on Levophed; he is satting 94% on the ventilator. GENERAL: He is intubated. He is sedated. He has a right groin and left wrist heart line and Tesfaye was in place. HEENT: His pupils are reactive. He is icteric. He is jaundiced. NECK: Supple, no JVD. LUNGS: Decreased in the bases. HEART: S1, S2, sternal wound was covered with a nice clean dressing. ABDOMEN: Soft with positive bowel sounds. Tesfaye is in place. SKIN: He has some mild anasarca, trace 1+ edema. He is jaundiced appearing. There is no generalized rash. IV site is clean without signs of any complications. There was a PICC line on the right upper extremity. He has a tattoo on his right upper extremity. LABORATORY DATA: White count 11.9, hemoglobin 7.5, platelets of 90, 89% neutrophils. Creatinine is 3.1, glucose 174, total bilirubin 7.1. AST 50, ALT 127, alkaline phosphatase 83. Urine from the not consistent with urinary tract infection. DIAGNOSTIC DATA: Chest x-ray: Some atelectasis and infiltrates. IMPRESSION: 1. Questionable sepsis, currently on vancomycin, Zosyn, micafungin from the . 2. 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 3. Acute kidney injury. 4. Status post coronary artery bypass graft x 3, status post the left ventricular device on the . 5. Status post chest wound closure on the . 6. Status post percutaneous transluminal coronary angioplasty of the left external iliac artery and the left superficial femoral artery as mentioned above on the and then primary repair of common femoral artery. 7. Small extra-axial fluid collection posteriorly near the right hemispheric vertex consistent with a small area of bleed on the CAT scan. Next, sinusitis on CAT scan. Both on the . 8. Respiratory failure, on . 9. Atrial fibrillation, cardiogenic shock. He is status post ST elevated myocardial infarction intraoperatively, severe ischemic cardiomyopathy, thrombocytopenia. RECOMMENDATIONS: For now, we will discontinue the vancomycin. We will continue Zosyn and micafungin, has been adjusted for renal function. We will obtain a procalcitonin. We will follow up on the cultures that have been obtained, that have been ordered from his sputum, urine, and blood. Follow up on his labs. CT scans of the head, chest, and pelvis are currently pending. He is critically ill. I did discuss with his . Thank you . ____ for asking us to participate in this patient's care. Should you have any questions, please do not hesitate to contact me. I spent 35 minutes of critical care time. CY MUKHERJEE MD DR: CANDACE/pato JOB#: [id number] / [id number]
--- NOTE | 2016-08-04 09:26 | PDOC ---
PROGRESS NOTES Assessment Problems Medical Problems: (1) CAD (coronary artery disease), [place] coronary artery Status: Acute (2) Chest pain Status: Acute (3) STEMI (ST elevation myocardial infarction) Status: Acute Metabolic and post-bypass encephalopathy Sepsis, cardiogenic shock, renal failure, hepatic insufficiency Possible right frontal infarct on head CT, not borne out on bedside exam Doubt critical-illness neuropathy Small right frontal subdural hematoma, improved on follow-up scan Plan Continue present observation and support I discussed with patient's . Subjective Denies pain Objective Vital Signs Date Time Temp Pulse Resp B/P Pulse Ox O2 Delivery O2 Flow Rate FiO2 08/04/16 09:00 83 22 102/52 97 Ventilator 08/04/16 08:00 97.5 97.5 Intake and Output 08/04/16 07:00 Intake Total 2770 ml Output Total 290 ml Balance 2480 ml Intake Oral 0 ml IV Total 2220 ml Blood Product IV Normal Saline Flush 550 ml Output Urine Total 290 ml # Bowel Movements 2 PHYSICAL EXAM On ventilator, eyes open, responds to visual threat PERRL. EOMI. CN: no focal findings. Muscle tone: normal. Muscle strength: moves all extremities to command DTR: 1+ Plantar reflex: silent Gait: not examined in bed. Sensory exam: no abnormal findings. No cerebellar signs elicited. Review of Relevant I have reviewed the following items leonidas (where applicable) has been applied. Labs Laboratory Tests Test 08/03/16 07:30 08/03/16 07:50 08/03/16 15:55 08/03/16 16:00 White Blood Count 11.9x10^3/uL (4.0-11.0) 11.2x10^3/uL (4.0-11.0) Red Blood Count 2.32x10^6/uL (4.30-5.70) 2.69x10^6/uL (4.30-5.70) Hemoglobin 7.5g/dL (13.0-17.5) 8.6g/dL (13.0-17.5) Hematocrit 23.0% (39.0-53.0) 26.5% (39.0-53.0) Mean Corpuscular Volume 99fL (79-100) 99fL (79-100) Mean Corpuscular Hemoglobin 32pg (25-35) 32pg (25-35) Mean Corpuscular Hemoglobin Concent 33g/dL (31-37) 33g/dL (31-37) Red Cell Distribution Width 17.7% (11.5-14.5) 16.3% (11.5-14.5) Platelet Count 90x10^3/uL (140-400) 82x10^3/uL (140-400) Neutrophils (%) (Auto) 89% (31-73) 91% (31-73) Lymphocytes (%) (Auto) 7% (24-48) 5% (24-48) Monocytes (%) (Auto) 4% (0-9) 4% (0-9) Eosinophils (%) (Auto) 0% (0-3) 0% (0-3) Basophils (%) (Auto) 0% (0-3) 0% (0-3) Neutrophils # (Auto) 10.6x10^3uL (1.8-7.7) 10.1x10^3uL (1.8-7.7) Lymphocytes # (Auto) 0.8x10^3/uL (1.0-4.8) 0.6x10^3/uL (1.0-4.8) Monocytes # (Auto) 0.5x10^3/uL (0.0-1.1) 0.4x10^3/uL (0.0-1.1) Eosinophils # (Auto) 0.0x10^3/uL (0.0-0.7) 0.0x10^3/uL (0.0-0.7) Basophils # (Auto) 0.0x10^3/uL (0.0-0.2) 0.0x10^3/uL (0.0-0.2) Sodium Level 149mmol/L (136-145) 152mmol/L (136-145) Potassium Level 5.3mmol/L (3.5-5.1) 5.3mmol/L (3.5-5.1) Chloride Level 112mmol/L (98-107) 113mmol/L (98-107) Carbon Dioxide Level 25mmol/L (21-32) 25mmol/L (21-32) Anion Gap 12 (6-14) 14 (6-14) Blood Urea Nitrogen 82mg/dL (8-26) 95mg/dL (8-26) Creatinine 3.1mg/dL (0.7-1.3) 3.6mg/dL (0.7-1.3) Estimated GFR (Cockcroft-Gault) 20.9 17.6 BUN/Creatinine Ratio 26 (6-20) Glucose Level 174mg/dL (70-99) 184mg/dL (70-99) Uric Acid 6.1mg/dL (3.5-7.2) Calcium Level 6.3mg/dL (8.5-10.1) 7.1mg/dL (8.5-10.1) Phosphorus Level 8.3mg/dL (2.6-4.7) Magnesium Level 2.7mg/dL (1.8-2.4) Total Bilirubin 7.1mg/dL (0.2-1.0) Aspartate Amino Transf (AST/SGOT) 50U/L (15-37) Alanine Aminotransferase (ALT/SGPT) 127U/L (16-63) Alkaline Phosphatase 83U/L (46-116) Creatine Kinase 158U/L (39-308) Total Protein 5.2g/dL (6.4-8.2) Albumin 2.2g/dL (3.4-5.0) Albumin/Globulin Ratio 0.7 (1.0-1.7) O2 Saturation 95% (92-99) Arterial Blood pH 7.30 (7.35-7.45) Arterial Blood pCO2 at Patient Temp 40mmHg (35-46) Arterial Blood pO2 at Patient Temp 85mmHg (75-108) Arterial Blood HCO3 19mmol/L (21-28) Arterial Blood Base Excess -7mmol/L (-3-3) FiO2 50 Urine Collection Type Unknown Urine Color Keke Urine Clarity Turbid Urine pH 5.0 Urine Specific [place] 1.020 Urine Protein 100mg/dL (NEG-TRACE) Urine Glucose (UA) Negativemg/dL (NEG) Urine Ketones (Stick) Negativemg/dL (NEG) Urine Blood Moderate (NEG) Urine Nitrite Negative (NEG) Urine Bilirubin Small (NEG) Urine Urobilinogen Dipstick 1.0mg/dL (0.2 mg/dL) Urine Leukocyte Esterase Negative (NEG) Urine RBC 6-10/HPF (0-2) Urine WBC 0/HPF (0-4) Urine Squamous Epithelial Cells Occ/LPF Urine Amorphous Sediment Present/HPF Urine Bacteria 0/HPF (0-FEW) Urine Hyaline Casts Few/HPF Urine Granular Casts Few/HPF Urine Mucus Slight/LPF Segmented Neutrophils % 75% (35-66) Band Neutrophils % 16% (0-9) Lymphocytes % 7% (24-48) Monocytes % 2% (0-10) Nucleated Red Blood Cells 4 Toxic Granulation Slight Dohle Bodies Present Platelet Estimate Decreased (ADEQUATE) Polychromasia Present Poikilocytosis Slight Basophilic Stippling Present Anisocytosis Slight Procalcitonin 44.51ng/mL (0.00-0.10) Digoxin Level 1.9ng/mL (0.9-2.0) Digoxin Last Dose Date 08/02/16 Digoxin Last Dose Time 0856 Test 08/03/16 17:00 08/03/16 17:08 08/04/16 07:00 Prothrombin Time 17.4SEC (11.7-14.0) Prothromb Time International Ratio 1.5 (0.8-1.1) Activated Partial Thromboplast Time 44SEC (24-38) Glucose (Fingerstick) 165mg/dL (70-99) White Blood Count 6.6x10^3/uL (4.0-11.0) Red Blood Count 2.51x10^6/uL (4.30-5.70) Hemoglobin 8.0g/dL (13.0-17.5) Hematocrit 23.9% (39.0-53.0) Mean Corpuscular Volume 95fL (79-100) Mean Corpuscular Hemoglobin 32pg (25-35) Mean Corpuscular Hemoglobin Concent 34g/dL (31-37) Red Cell Distribution Width 16.2% (11.5-14.5) Platelet Count 68x10^3/uL (140-400) Neutrophils (%) (Auto) 88% (31-73) Lymphocytes (%) (Auto) 8% (24-48) Monocytes (%) (Auto) 4% (0-9) Eosinophils (%) (Auto) 1% (0-3) Basophils (%) (Auto) 0% (0-3) Neutrophils # (Auto) 5.8x10^3uL (1.8-7.7) Lymphocytes # (Auto) 0.5x10^3/uL (1.0-4.8) Monocytes # (Auto) 0.2x10^3/uL (0.0-1.1) Eosinophils # (Auto) 0.1x10^3/uL (0.0-0.7) Basophils # (Auto) 0.0x10^3/uL (0.0-0.2) Sodium Level 144mmol/L (136-145) Potassium Level 3.5mmol/L (3.5-5.1) Chloride Level 103mmol/L (98-107) Carbon Dioxide Level 30mmol/L (21-32) Anion Gap 11 (6-14) Blood Urea Nitrogen 69mg/dL (8-26) Creatinine 3.1mg/dL (0.7-1.3) Estimated GFR (Cockcroft-Gault) 20.9 BUN/Creatinine Ratio 22 (6-20) Glucose Level 186mg/dL (70-99) Calcium Level 7.2mg/dL (8.5-10.1) Phosphorus Level 7.0mg/dL (2.6-4.7) Magnesium Level 2.2mg/dL (1.8-2.4) Total Bilirubin 4.8mg/dL (0.2-1.0) Aspartate Amino Transf (AST/SGOT) 49U/L (15-37) Alanine Aminotransferase (ALT/SGPT) 96U/L (16-63) Alkaline Phosphatase 69U/L (46-116) Total Protein 4.8g/dL (6.4-8.2) Albumin 2.0g/dL (3.4-5.0) Albumin/Globulin Ratio 0.7 (1.0-1.7) Laboratory Tests Test 08/03/16 15:55 08/03/16 16:00 08/03/16 17:00 08/03/16 17:08 Urine Collection Type Unknown Urine Color [place] Urine Clarity Turbid Urine pH 5.0 Urine Specific [place] 1.020 Urine Protein 100mg/dL (NEG-TRACE) Urine Glucose (UA) Negativemg/dL (NEG) Urine Ketones (Stick) Negativemg/dL (NEG) Urine Blood Moderate (NEG) Urine Nitrite Negative (NEG) Urine Bilirubin Small (NEG) Urine Urobilinogen Dipstick 1.0mg/dL (0.2 mg/dL) Urine Leukocyte Esterase Negative (NEG) Urine RBC 6-10/HPF (0-2) Urine WBC 0/HPF (0-4) Urine Squamous Epithelial Cells Occ/LPF Urine Amorphous Sediment Present/HPF Urine Bacteria 0/HPF (0-FEW) Urine Hyaline Casts Few/HPF Urine Granular Casts Few/HPF Urine Mucus Slight/LPF White Blood Count 11.2x10^3/uL (4.0-11.0) Red Blood Count 2.69x10^6/uL (4.30-5.70) Hemoglobin 8.6g/dL (13.0-17.5) Hematocrit 26.5% (39.0-53.0) Mean Corpuscular Volume 99fL (79-100) Mean Corpuscular Hemoglobin 32pg (25-35) Mean Corpuscular Hemoglobin Concent 33g/dL (31-37) Red Cell Distribution Width 16.3% (11.5-14.5) Platelet Count 82x10^3/uL (140-400) Neutrophils (%) (Auto) 91% (31-73) Lymphocytes (%) (Auto) 5% (24-48) Monocytes (%) (Auto) 4% (0-9) Eosinophils (%) (Auto) 0% (0-3) Basophils (%) (Auto) 0% (0-3) Neutrophils # (Auto) 10.1x10^3uL (1.8-7.7) Lymphocytes # (Auto) 0.6x10^3/uL (1.0-4.8) Monocytes # (Auto) 0.4x10^3/uL (0.0-1.1) Eosinophils # (Auto) 0.0x10^3/uL (0.0-0.7) Basophils # (Auto) 0.0x10^3/uL (0.0-0.2) Segmented Neutrophils % 75% (35-66) Band Neutrophils % 16% (0-9) Lymphocytes % 7% (24-48) Monocytes % 2% (0-10) Nucleated Red Blood Cells 4 Toxic Granulation Slight Dohle Bodies Present Platelet Estimate Decreased (ADEQUATE) Polychromasia Present Poikilocytosis Slight Basophilic Stippling Present Anisocytosis Slight Sodium Level 152mmol/L (136-145) Potassium Level 5.3mmol/L (3.5-5.1) Chloride Level 113mmol/L (98-107) Carbon Dioxide Level 25mmol/L (21-32) Anion Gap 14 (6-14) Blood Urea Nitrogen 95mg/dL (8-26) Creatinine 3.6mg/dL (0.7-1.3) Estimated GFR (Cockcroft-Gault) 17.6 Glucose Level 184mg/dL (70-99) Calcium Level 7.1mg/dL (8.5-10.1) Procalcitonin 44.51ng/mL (0.00-0.10) Digoxin Level 1.9ng/mL (0.9-2.0) Digoxin Last Dose Date 08/02/16 Digoxin Last Dose Time 0856 Prothrombin Time 17.4SEC (11.7-14.0) Prothromb Time International Ratio 1.5 (0.8-1.1) Activated Partial Thromboplast Time 44SEC (24-38) Glucose (Fingerstick) 165mg/dL (70-99) Test 08/04/16 07:00 White Blood Count 6.6x10^3/uL (4.0-11.0) Red Blood Count 2.51x10^6/uL (4.30-5.70) Hemoglobin 8.0g/dL (13.0-17.5) Hematocrit 23.9% (39.0-53.0) Mean Corpuscular Volume 95fL (79-100) Mean Corpuscular Hemoglobin 32pg (25-35) Mean Corpuscular Hemoglobin Concent 34g/dL (31-37) Red Cell Distribution Width 16.2% (11.5-14.5) Platelet Count 68x10^3/uL (140-400) Neutrophils (%) (Auto) 88% (31-73) Lymphocytes (%) (Auto) 8% (24-48) Monocytes (%) (Auto) 4% (0-9) Eosinophils (%) (Auto) 1% (0-3) Basophils (%) (Auto) 0% (0-3) Neutrophils # (Auto) 5.8x10^3uL (1.8-7.7) Lymphocytes # (Auto) 0.5x10^3/uL (1.0-4.8) Monocytes # (Auto) 0.2x10^3/uL (0.0-1.1) Eosinophils # (Auto) 0.1x10^3/uL (0.0-0.7) Basophils # (Auto) 0.0x10^3/uL (0.0-0.2) Sodium Level 144mmol/L (136-145) Potassium Level 3.5mmol/L (3.5-5.1) Chloride Level 103mmol/L (98-107) Carbon Dioxide Level 30mmol/L (21-32) Anion Gap 11 (6-14) Blood Urea Nitrogen 69mg/dL (8-26) Creatinine 3.1mg/dL (0.7-1.3) Estimated GFR (Cockcroft-Gault) 20.9 BUN/Creatinine Ratio 22 (6-20) Glucose Level 186mg/dL (70-99) Calcium Level 7.2mg/dL (8.5-10.1) Phosphorus Level 7.0mg/dL (2.6-4.7) Magnesium Level 2.2mg/dL (1.8-2.4) Total Bilirubin 4.8mg/dL (0.2-1.0) Aspartate Amino Transf (AST/SGOT) 49U/L (15-37) Alanine Aminotransferase (ALT/SGPT) 96U/L (16-63) Alkaline Phosphatase 69U/L (46-116) Total Protein 4.8g/dL (6.4-8.2) Albumin 2.0g/dL (3.4-5.0) Albumin/Globulin Ratio 0.7 (1.0-1.7) Microbiology 08/02/16 Blood Culture - Preliminary, Resulted NO GROWTH AFTER 1 DAY 07/31/16 Sputum Culture - Final, Complete 07/31/16 Sputum Result 1 - Final, Complete 08/03/16 Gram Stain - Final, Complete Medications Current Medications Nitroglycerin 0.4 mg 0.4 mg PRN Q5MIN PRN SL CP RATING > 04/26; Start 07/20/16 at 09:45; Stop 07/20/16 at 15:05; Status DC Nitroglycerin/ Dextrose (Nitroglycerin Drip) 250 ml @ 3 mls/hr 1X ONCE IV Last administered on 07/20/16 10:02; Start 07/20/16 at 10:30; Stop 07/23/16 at 21: 49; Status DC Morphine Sulfate 2 mg PRN Q15MIN PRN IV/SQ PAIN GREATER THAN 3/10; Start at 09:45; Stop 07/21/16 at 09:44; Status DC Ondansetron HCl (Zofran) 4 mg PRN Q8HRS PRN IV NAUSEA/VOMITING; Start 07/20/16 at 12:30; Stop 07/20/16 at 13:36; Status DC Morphine Sulfate 2 mg 2 mg PRN Q2HR PRN IV PAIN; Start 07/20/16 at 12:30; Stop 07/21/16 at 12:29; Status DC Heparin Sodium/ Dextrose 500 ml @ 0 mls/hr CONT PRN IV . Last administered on 10:32; Start 07/20/16 at 13:00; Stop 07/21/16 at 14:50; Status DC Metoprolol Tartrate (Lopressor) 5 mg Q6HRS IVP ; Start 07/20/16 at 13:00; Stop at 14:53; Status DC Aspirin (Ecotrin) 325 mg [id number] PO Last administered on 07/21/16 08:11; Start 07/20/16 at 13:00; Stop 07/21/16 at 17:20; Status DC Ondansetron HCl (Zofran) 4 mg PRN Q6HRS PRN IV NAUSEA/VOMITING; Start 07/20/16 at 13:35; Stop 07/26/16 at 11:41; Status DC Acetaminophen (Tylenol) 500 mg PRN Q6HRS PRN PO MILD PAIN / TEMP Last administered on 07/29/16 09:55; Start 07/20/16 at 13:45; Stop 07/29/16 at 13:38 ; Status DC Docusate Sodium (Colace) 100 mg DAILY PO Last administered on 07/29/16 09:54; Start 07/20/16 at 15:00; Stop 07/29/16 at 10:03; Status DC Iohexol 100 ml 100 ml STK-MED ONCE .ROUTE ; Start 07/20/16 at 12:40; Stop at 13:44; Status DC Heparin Sodium/ Sodium Chloride 1,000 ml @ As Directed STK-MED ONCE .ROUTE ; Start 07/20/16 at 12:41; Stop 07/20/16 at 13:44; Status DC Lidocaine HCl 20 ml STK-MED ONCE .ROUTE ; Start 07/20/16 at 12:41; Stop 07/20/16 at 13:44; Status DC Fentanyl Citrate (Fentanyl 2ml Vial) 100 mcg STK-MED ONCE .ROUTE ; Start at 13:42; Stop 07/20/16 at 13:45; Status DC Midazolam HCl (Versed) 2 mg STK-MED ONCE .ROUTE ; Start 07/20/16 at 13:42; Stop 07/20/16 at 13:45; Status DC Heparin Sodium/ Sodium Chloride 1,000 unit 1X ONCE IART Last administered on 14:29; Start 07/20/16 at 14:00; Stop 07/20/16 at 14:01; Status DC Heparin Sodium/ Sodium Chloride 1,000 unit 1X ONCE IART Last administered on 14:29; Start 07/20/16 at 14:00; Stop 07/20/16 at 14:01; Status DC Midazolam HCl (Versed) 2 mg 1X ONCE IV Last administered on 07/20/16 14:28; Start 07/20/16 at 14:00; Stop 07/20/16 at 14:01; Status DC Fentanyl Citrate (Fentanyl 2ml Vial) 100 mcg 1X ONCE IV Last administered on 14:28; Start 07/20/16 at 14:00; Stop 07/20/16 at 14:01; Status DC Iohexol (Omnipaque 300 Mg/ml) 100 ml 1X ONCE IART Last administered on 14:29; Start 07/20/16 at 14:00; Stop 07/20/16 at 14:01; Status DC Lidocaine HCl 20 ml 1X ONCE IJ Last administered on 07/20/16 14:29; Start 07/20 at 14:00; Stop 07/20/16 at 14:01; Status DC Midazolam HCl (Versed) 2 mg STK-MED ONCE .ROUTE ; Start 07/20/16 at 14:15; Stop 07/20/16 at 14:16; Status DC Sodium Chloride 3 ml 3 ml QSHIFT PRN IV AFTER MEDS AND BLOOD DRAWS; Start at 14:45; Stop 07/29/16 at 13:51; Status DC Sodium Chloride (Iv Sodium Chloride 0.9% 1000ml Bag) 1,000 ml @ 60 mls/hr [id number] IV Last administered on 07/20/16 14:44; Start 07/20/16 at 14:44; Stop at 00:43; Status DC Metoprolol Tartrate (Lopressor) 12.5 mg BID PO ; Start 07/20/16 at 21:00; Stop at 21:00; Status DC Lisinopril (Prinivil) 5 mg DAILY PO Last administered on 07/20/16 16:25; Start 07/20/16 at 15:00; Stop 07/20/16 at 17:21; Status DC Atorvastatin Calcium (Lipitor) 20 mg QHS PO Last administered on 07/20/16 20:33 ; Start 07/20/16 at 21:00; Stop 07/21/16 at 08:11; Status DC Nitroglycerin (Nitrostat) 0.4 mg PRN Q5MIN PRN SL CHEST PAIN Last administered on 07/25/16 04:55; Start 07/20/16 at 14:45; Stop 07/26/16 at 11:41; Status DC Hydralazine HCl (Apresoline) 10 mg PRN Q4HRS PRN IVP ELEVATED BP, SEE COMMENTS Last administered on 07/31/16 10:58; Start 07/20/16 at 17:15; Stop 07/31/16 at 13:31; Status DC Metoprolol Tartrate (Lopressor) 50 mg BID PO Last administered on 07/22/16 08: 31; Start 07/20/16 at 21:00; Stop 07/22/16 at 19:03; Status DC Alprazolam (Xanax) 0.25 mg PRN Q8HRS PRN PO ANXIETY / AGITATION Last administered on 07/24/16 21:34; Start 07/20/16 at 17:30; Stop 07/29/16 at 13:38; Status DC Heparin Sodium (Porcine) 2050 unit 2,050 unit PRN Q6HRS PRN IV FOR UFH LEVEL LESS THAN 0.2 Last administered on 07/21/16 04:24; Start 07/20/16 at 19:45; Stop 07/26/16 at 08:55; Status DC Heparin Sodium/ Dextrose 500 ml @ 19.4 mls/hr CONT PRN IV SEE I/O RECORD; Start 07/20/16 at 19:45; Stop 07/21/16 at 16:24; Status DC Heparin Sodium (Porcine) (Heparin Sodium) 2,050 unit PRN Q6HRS PRN IV FOR UFH LEVEL LESS THAN 0.2; Start 07/20/16 at 19:45; Status UNV Atorvastatin Calcium (Lipitor) 40 mg QHS PO Last administered on 08/03/16 21: 53; Start 07/21/16 at 21:00 Iodixanol (Visipaque 320) 200 ml STK-MED ONCE .ROUTE ; Start 07/20/16 at 14:00; Stop 07/21/16 at 08:26; Status DC Zolpidem Tartrate (Ambien) 5 mg PRN QHS PRN PO INSOMNIA, MAY REPEAT IN 1HR; Start 07/21/16 at 15:30; Stop 07/29/16 at 13:38; Status DC Metoprolol Tartrate 25 mg 25 mg 1X ONCE PO ; Start 07/22/16 at 06:00; Stop at 06:02; Status DC Cefazolin Sodium/ Dextrose 50 ml @ 100 mls/hr 1X ONCE IV ; Start 07/22/16 at 06 :00; Stop 07/22/16 at 06:29; Status DC Heparin Sodium/ Dextrose 500 ml @ 0 mls/hr CONT PRN IV SEE I/O RECORD Last administered on 07/24/16 01:40; Start 07/21/16 at 16:30; Stop 07/26/16 at 08:55; Status DC Lidocaine HCl 2 ml 2 ml 1X PRN PRN ID IV START; Start 07/25/16 at 06:00; Stop 07/26/16 at 05:59; Status Cancel Lactated Ringer's (Iv Lactated Ringers) 1,000 ml @ 0 mls/hr Q0M IV Last administered on 07/25/16 07:30; Start 07/25/16 at 06:00; Stop 07/25/16 at 17:59 ; Status DC Fentanyl Citrate (Fentanyl 2ml Vial) 25 mcg PRN Q5MIN PRN IV Acute Pain; Start 07/22/16 at 09:15; Stop 07/23/16 at 09:14; Status DC Morphine Sulfate 2 mg PRN Q10MIN PRN IV Mild Pain; Start 07/22/16 at 09:15; Stop 07/23/16 at 09:14; Status DC Hydromorphone HCl (Dilaudid) 0.4 mg PRN Q10MIN PRN IV Moderate to severe pain; Start 07/22/16 at 09:15; Stop 07/23/16 at 09:14; Status DC Ondansetron HCl (Zofran) 4 mg PRN Q6HRS PRN IV Nausea, 1st Choice; Start at 09:15; Stop 07/23/16 at 09:14; Status DC Prochlorperazine Edisylate (Compazine) 5 mg PRN Q6HRS PRN IV Nausea/Vomiting, 2nd Choice; Start 07/22/16 at 09:15; Stop 07/23/16 at 09:14; Status DC Ondansetron HCl (Zofran) 4 mg PRN Q6HRS PRN IV NAUSEA/VOMITING; Start 07/25/16 at 07:00; Stop 07/26/16 at 06:59; Status DC Fentanyl Citrate (Fentanyl 2ml Vial) 25 mcg PRN Q5MIN PRN IV MILD PAIN; Start 07/25/16 at 07:00; Stop 07/26/16 at 06:59; Status DC Fentanyl Citrate (Fentanyl 2ml Vial) 50 mcg PRN Q5MIN PRN IV MODERATE PAIN; Start 07/25/16 at 07:00; Stop 07/26/16 at 06:59; Status DC Morphine Sulfate 1 mg 1 mg PRN Q10MIN PRN IV SEVERE PAIN; Start 07/25/16 at 07: 00; Stop 07/25/16 at 20:28; Status DC Lactated Ringer's (Iv Lactated Ringers) 1,000 ml @ 0 mls/hr Q0M IV ; Start 01/31 at 07:00; Stop 07/25/16 at 18:59; Status Cancel Lidocaine HCl 2 ml PRN 1X PRN ID PRIOR TO IV START Last administered on 07:16; Start 07/25/16 at 07:00; Stop 07/26/16 at 06:59; Status DC Hydromorphone HCl (Dilaudid) 0.5 mg PRN Q10MIN PRN IV SEV PAIN, Second choice; Start 07/25/16 at 07:00; Stop 07/26/16 at 06:59; Status DC Prochlorperazine Edisylate 5 mg 5 mg PACU PRN PRN IV NAUSEA, MRX1; Start at 07:00; Stop 07/26/16 at 06:59; Status DC Cefazolin Sodium/ Dextrose (Ancef 2gm Premix) 50 ml @ 100 mls/hr 1X ONCE IV Last administered on 07/25/16 08:12; Start 07/25/16 at 06:00; Stop 07/25/16 at 06:29; Status DC Metoprolol Tartrate (Lopressor) 25 mg 1X ONCE PO ; Start 07/25/16 at 06:00; Stop 07/25/16 at 06:00; Status DC Metoprolol Tartrate (Lopressor) 2.5 mg 1X ONCE IVP Last administered on 16:30; Start 07/22/16 at 16:30; Stop 07/22/16 at 16:31; Status DC Digoxin (Lanoxin) 250 mcg 1X ONCE IV ; Start 07/22/16 at 18:30; Stop 07/22/16 at 18:42; Status DC Digoxin (Lanoxin) 500 mcg 1X ONCE IV Last administered on 07/22/16 18:47; Start 07/22/16 at 18:45; Stop 07/22/16 at 18:46; Status DC Metoprolol Tartrate (Lopressor) 75 mg BID PO Last administered on 07/24/16 21: 30; Start 07/22/16 at 21:00; Stop 07/25/16 at 13:12; Status DC Nitroglycerin 0.4 mg 0.4 mg PRN Q5MIN PRN SL CHEST PAIN; Start 07/23/16 at 12:00 ; Status UNV Heparin Sodium (Porcine) 15460 unit/Lactated Ringer's 1,020 ml @ 1,020 mls/hr 1X PERIOP ONCE IRR Last administered on 07/25/16 08:46; Start 07/25/16 at 06: 00; Stop 07/25/16 at 06:59; Status DC Potassium Chloride 70 meq/ Sodium Bicarbonate 12.5 meq/Lidocaine HCl 24 ml/ Parenteral Electrolytes 571.5 ml @ 571.5 mls/ hr 1X PERIOP ONCE IRR ; Start at 06:00; Stop 07/25/16 at 06:59; Status DC Potassium Chloride/Sodium Bicarbonate/ Parenteral Electrolytes (Isolyte S) 520 ml @ 520 mls/hr 1X PERIOP ONCE IRR ; Start 07/25/16 at 06:00; Stop 07/25/16 at 06:59; Status DC Etomidate (Amidate) 20 mg STK-MED ONCE IV ; Start 07/25/16 at 06:08; Stop at 06:09; Status DC Phenylephrine HCl (-Synephrine Inj) 10 mg STK-MED ONCE .ROUTE ; Start at 06:08; Stop 07/25/16 at 06:09; Status DC Aminocaproic Acid (Amicar) 5,000 mg STK-MED ONCE IV ; Start 07/25/16 at 06:08; Stop 07/25/16 at 06:09; Status DC Heparin Sodium (Porcine) (Heparin Sodium) 10,000 unit STK-MED ONCE .ROUTE ; Start 07/25/16 at 06:10; Stop 07/25/16 at 06:11; Status DC Rocuronium [place] (Zemuron) 100 mg STK-MED ONCE .ROUTE ; Start 07/25/16 at 06: 11; Stop 07/25/16 at 06:12; Status DC Morphine Sulfate 4 mg STK-MED ONCE .ROUTE ; Start 07/25/16 at 06:59; Stop at 07:00; Status DC Morphine Sulfate 4 mg 4 mg 1X ONCE IV ; Start 07/25/16 at 07:15; Stop 07/25/16 at 07:16; Status DC Cefazolin Sodium/ Sodium Chloride (Ancef/Iv Sodium Chloride 0.9% 500ml Bag) 500 ml @ 500 mls/hr 1X PERIOP ONCE IRR Last administered on 07/25/16 08:46; Start 07/25/16 at 07:15; Stop 07/25/16 at 08:14; Status DC Cellulose 1 each STK-MED ONCE .ROUTE Last administered on 07/25/16 08:46; Start 07/25/16 at 07:07; Stop 07/25/16 at 07:08; Status DC Vancomycin HCl (Vanco) 10 gm STK-MED ONCE .ROUTE Last administered on 08:46; Start 07/25/16 at 07:07; Stop 07/25/16 at 07:08; Status DC Papaverine HCl 60 mg STK-MED ONCE .ROUTE Last administered on 07/25/16 08:46; Start 07/25/16 at 07:07; Stop 07/25/16 at 07:08; Status DC Aspirin (Aspirin) 300 mg STK-MED ONCE .ROUTE Last administered on 07/25/16 17: 25; Start 07/25/16 at 07:08; Stop 07/25/16 at 07:09; Status DC Sodium Chloride (Sodium Chloride) 50 ml STK-MED ONCE IJ Last administered on 08:46; Start 07/25/16 at 07:08; Stop 07/25/16 at 07:09; Status DC Midazolam HCl (Versed) 2 mg STK-MED ONCE .ROUTE ; Start 07/25/16 at 07:15; Stop 07/25/16 at 07:16; Status DC Ephedrine Sulfate 50 mg 50 mg STK-MED ONCE IV ; Start 07/25/16 at 07:16; Stop at 07:17; Status DC Nitroglycerin/ Dextrose (Nitroglycerin Drip) 250 ml @ As Directed STK-MED ONCE IV ; Start 07/25/16 at 07:16; Stop 07/25/16 at 07:17; Status DC Midazolam HCl (Versed) 2 mg STK-MED ONCE .ROUTE ; Start 07/25/16 at 07:18; Stop 07/25/16 at 07:19; Status DC Fentanyl Citrate (Fentanyl 2ml Vial) 100 mcg STK-MED ONCE .ROUTE ; Start at 07:19; Stop 07/25/16 at 07:20; Status DC Sufentanil Citrate (Sufenta) 100 mcg STK-MED ONCE .ROUTE ; Start 07/25/16 at 07: 19; Stop 07/25/16 at 07:20; Status DC Midazolam HCl (Versed) 2 mg 1X ONCE IV ; Start 07/25/16 at 08:00; Stop at 08:01; Status DC Dexamethasone Sodium Phosphate (Decadron) 20 mg STK-MED ONCE .ROUTE ; Start 01/31 at 07:58; Stop 07/25/16 at 07:59; Status DC Rocuronium [place] (Zemuron) 100 mg STK-MED ONCE .ROUTE ; Start 07/25/16 at 08: 52; Stop 07/25/16 at 08:53; Status DC Sufentanil Citrate (Sufenta) 100 mcg STK-MED ONCE .ROUTE ; Start 07/25/16 at 08: 53; Stop 07/25/16 at 08:54; Status DC Protamine Sulfate 250 mg STK-MED ONCE IV ; Start 07/25/16 at 10:43; Stop at 10:44; Status DC Rocuronium [place] 100 mg 100 mg STK-MED ONCE .ROUTE ; Start 07/25/16 at 10:52; Stop 07/25/16 at 10:53; Status DC Albumin Human 0 ml @ As Directed STK-MED ONCE IV ; Start 07/25/16 at 10:53; Stop 07/25/16 at 10:54; Status DC Amiodarone HCl/ Dextrose (Cordarone) 518 ml @ 34.53 mls/ hr 1X ONCE IV Last administered on 07/25/16t 18:52; Start 07/25/16 at 11:30; Stop 07/26/16 at 02:30 ; Status DC Sodium Bicarbonate 50 meq STK-MED ONCE .ROUTE ; Start 07/25/16 at 11:35; Stop at 11:36; Status DC Protamine Sulfate 50 mg STK-MED ONCE IV ; Start 07/25/16 at 12:31; Stop at 12:32; Status DC Amiodarone HCl (Cordarone) 150 mg STK-MED ONCE .ROUTE ; Start 07/25/16 at 12:37 ; Stop 07/25/16 at 12:38; Status DC Isoflurane (Isoflurane) 90 ml STK-MED ONCE IH ; Start 07/25/16 at 12:42; Stop at 12:43; Status DC Lidocaine HCl (Lidocaine HCl 2% Abboject) 100 mg STK-MED ONCE .ROUTE ; Start 01/31 at 13:07; Stop 07/25/16 at 13:08; Status DC Mannitol (Mannitol) 12.5 g STK-MED ONCE .ROUTE ; Start 07/25/16 at 13:07; Stop 07/25/16 at 13:08; Status DC Calcium Chloride 1,000 mg STK-MED ONCE IV ; Start 07/25/16 at 13:07; Stop at 13:08; Status DC Sodium Bicarbonate 50 meq 50 meq STK-MED ONCE .ROUTE ; Start 07/25/16 at 13:07; Stop 07/25/16 at 13:08; Status DC Albumin Human (Albuminar) 100 ml @ As Directed STK-MED ONCE IV ; Start at 13:07; Stop 07/25/16 at 13:08; Status DC Magnesium Sulfate 5 gm STK-MED ONCE .ROUTE ; Start 07/25/16 at 13:08; Stop 07/25 at 13:09; Status DC Heparin Sodium (Porcine) 31795 unit 30,000 unit STK-MED ONCE .ROUTE ; Start 01/31 at 13:08; Stop 07/25/16 at 13:09; Status DC Clevidipine (Cleviprex) 100 ml @ 0 mls/hr CONT PRN IV PER PROTOCOL; Start 07/25 at 13:45; Stop 07/26/16 at 11:29; Status DC Heparin Sodium (Porcine) 39134 unit 30,000 unit STK-MED ONCE .ROUTE ; Start 01/31 at 13:39; Stop 07/25/16 at 13:40; Status DC Epinephrine HCl/ Sodium Chloride (Adrenalin/Iv Sodium Chloride 0.9% 250ml) 254 ml @ 3.81 mls/hr CONT PRN IV SEE I/O RECORD; Start 07/25/16 at 13:45 Epinephrine HCl (Epinephrine Syringe) 1 mg STK-MED ONCE .ROUTE ; Start 07/25/16 at 13:52; Stop 07/25/16 at 13:53; Status DC Rocuronium [place] (Zemuron) 100 mg STK-MED ONCE .ROUTE ; Start 07/25/16 at 13: 57; Stop 07/25/16 at 13:58; Status DC Sodium Bicarbonate 50 meq 50 meq STK-MED ONCE .ROUTE ; Start 07/25/16 at 14:04; Stop 07/25/16 at 14:05; Status DC Procainamide HCl/ Dextrose (Pronestyl) 520 ml @ 15.6 mls/hr CONT PRN IV SEE I/ O RECORD; Start 07/25/16 at 14:30; Stop 07/28/16 at 15:22; Status DC Sodium Bicarbonate 50 meq STK-MED ONCE .ROUTE ; Start 07/25/16 at 14:31; Stop at 14:32; Status DC Sodium Bicarbonate 50 meq STK-MED ONCE .ROUTE ; Start 07/25/16 at 14:31; Stop at 14:32; Status DC Protamine Sulfate 50 mg STK-MED ONCE IV ; Start 07/25/16 at 15:13; Stop at 15:14; Status DC Protamine Sulfate 50 mg STK-MED ONCE IV ; Start 07/25/16 at 15:13; Stop at 15:14; Status DC Isoflurane 90 ml 90 ml STK-MED ONCE IH ; Start 07/25/16 at 15:13; Stop 07/25/16 at 15:14; Status DC Dobutamine HCl/ Dextrose 250 ml @ As Directed STK-MED ONCE IV ; Start 07/25/16 at 15:17; Stop 07/25/16 at 15:18; Status DC Iohexol 100 ml 100 ml STK-MED ONCE .ROUTE Last administered on 07/25/16t 15:39 ; Start 07/25/16 at 15:28; Stop 07/25/16 at 15:29; Status DC Norepinephrine Bitartrate 8 mg/ Sodium Chloride 258 ml @ 1.93 mls/hr 1X ONCE IV Last administered on 07/25/16 18:53; Start 07/25/16 at 16:00; Stop at 08:04; Status DC Albumin Human (Plasmanate) 1,000 ml @ As Directed STK-MED ONCE IV ; Start 07/25 at 16:11; Stop 07/25/16 at 16:12; Status DC Heparin Sodium (Porcine) (Heparin Sodium) 10,000 unit STK-MED ONCE .ROUTE ; Start 07/25/16 at 16:19; Stop 07/25/16 at 16:20; Status DC Lidocaine HCl (Lidocaine HCl 2% Abboject) 100 mg STK-MED ONCE .ROUTE ; Start 01/31 at 16:19; Stop 07/25/16 at 16:20; Status DC Mannitol (Mannitol) 12.5 g STK-MED ONCE .ROUTE ; Start 07/25/16 at 16:19; Stop 07/25/16 at 16:20; Status DC Calcium Chloride 1,000 mg STK-MED ONCE IV ; Start 07/25/16 at 16:19; Stop at 16:20; Status DC Sodium Bicarbonate 50 meq STK-MED ONCE .ROUTE ; Start 07/25/16 at 16:19; Stop at 16:20; Status DC Magnesium Sulfate 5 gm STK-MED ONCE .ROUTE ; Start 07/25/16 at 16:19; Stop 07/25 at 16:20; Status DC Heparin Sodium (Porcine) (Heparin Sodium) 10,000 unit STK-MED ONCE .ROUTE ; Start 07/25/16 at 16:20; Stop 07/25/16 at 16:21; Status DC Lidocaine HCl (Lidocaine HCl 2% Abboject) 100 mg STK-MED ONCE .ROUTE ; Start 01/31 at 16:20; Stop 07/25/16 at 16:21; Status DC Aminocaproic Acid (Amicar) 5,000 mg STK-MED ONCE IV ; Start 07/25/16 at 16:20; Stop 07/25/16 at 16:21; Status DC Mannitol (Mannitol) 12.5 g STK-MED ONCE .ROUTE ; Start 07/25/16 at 16:20; Stop 07/25/16 at 16:21; Status DC Sodium Bicarbonate 50 meq 50 meq STK-MED ONCE .ROUTE ; Start 07/25/16 at 16:20; Stop 07/25/16 at 16:21; Status DC Albumin Human (Albuminar) 100 ml @ As Directed STK-MED ONCE IV ; Start at 16:20; Stop 07/25/16 at 16:21; Status DC Rocuronium [place] (Zemuron) 50 mg STK-MED ONCE .ROUTE ; Start 07/25/16 at 16:33 ; Stop 07/25/16 at 16:34; Status DC Rocuronium [place] (Zemuron) 50 mg STK-MED ONCE .ROUTE ; Start 07/25/16 at 16:33 ; Stop 07/25/16 at 16:34; Status DC Protamine Sulfate 50 mg STK-MED ONCE IV ; Start 07/25/16 at 16:34; Stop at 16:35; Status DC Sodium Bicarbonate 50 meq STK-MED ONCE .ROUTE ; Start 07/25/16 at 16:36; Stop at 16:37; Status DC Calcium Chloride 1,000 mg STK-MED ONCE IV ; Start 07/25/16 at 16:41; Stop at 16:42; Status DC Epinephrine HCl (Epinephrine Syringe) 1 mg STK-MED ONCE .ROUTE ; Start 07/25/16 at 16:41; Stop 07/25/16 at 16:42; Status DC Sodium Bicarbonate 50 meq STK-MED ONCE .ROUTE ; Start 07/25/16 at 16:52; Stop at 16:53; Status DC Sodium Bicarbonate 50 meq STK-MED ONCE .ROUTE ; Start 07/25/16 at 16:52; Stop at 16:53; Status DC Sodium Bicarbonate 50 meq STK-MED ONCE .ROUTE ; Start 07/25/16 at 16:52; Stop at 16:53; Status DC Vasopressin (Vasostrict) 20 unit STK-MED ONCE .ROUTE ; Start 07/25/16 at 16:54; Stop 07/25/16 at 16:55; Status DC Famotidine (Pepcid) 20 mg STK-MED ONCE .ROUTE ; Start 07/25/16 at 16:56; Stop at 16:57; Status DC Dexamethasone Sodium Phosphate (Decadron) 20 mg STK-MED ONCE .ROUTE ; Start 01/31 at 16:56; Stop 07/25/16 at 16:57; Status DC Diphenhydramine HCl 50 mg 50 mg STK-MED ONCE .ROUTE ; Start 07/25/16 at 16:56; Stop 07/25/16 at 16:57; Status DC Vasopressin/ Dextrose (Vasostrict) 102 ml @ 6 mls/hr CONT PRN IV SEE I/O RECORD Last administered on 08/03/16 18:28; Start 07/25/16 at 17:15 Sodium Bicarbonate 50 meq STK-MED ONCE .ROUTE ; Start 07/25/16 at 17:24; Stop at 17:25; Status DC Sodium Bicarbonate 50 meq 50 meq STK-MED ONCE .ROUTE ; Start 07/25/16 at 17:24; Stop 07/25/16 at 17:25; Status DC Cefazolin Sodium/ Dextrose (Ancef 2gm Premix) 50 ml @ As Directed STK-MED ONCE IV ; Start 07/25/16 at 17:32; Stop 07/25/16 at 17:33; Status DC Sodium Chloride 3 ml 3 ml PRN Q12HR PRN IV AFTER MEDS AND BLOOD DRAWS; Start at 17:30; Stop 07/29/16 at 13:38; Status DC Lactated Ringer's 1,000 ml @ 15 mls/hr Q24H IV Last administered on 07/29/16 16:45; Start 07/25/16 at 17:30; Stop 07/31/16 at 15:33; Status DC Insulin Human Regular/Sodium Chloride (Novolin R Vial/ Iv Normal Saline 150ml) 151.5 ml @ 0 mls/hr CONT PRN PRN IV SEE I/O RECORD Last administered on 03:03; Start 07/25/16 at 17:30; Stop 07/29/16 at 13:51; Status DC Dextrose 25 gm 25 gm PRN Q15MIN PRN IV LOW BLOOD SUGAR; Start 07/25/16 at 17:30 ; Stop 07/29/16 at 13:51; Status DC Dopamine HCl/ Dextrose 250 ml @ 0 mls/hr CONT PRN PRN IV SEE I/O RECORD; Start 07/25/16 at 17:30; Stop 07/26/16 at 11:41; Status DC Amiodarone HCl/ Dextrose (Cordarone) 518 ml @ 33.33 mls/ hr CONT PRN PRN IV SEE COMMENTS; Start 07/25/16 at 17:30; Status UNV Info 1 ea CONT PRN PRN MC SEE COMMENTS; Start 07/25/16 at 17:30; Stop 08/03/16 at 12:57; Status DC Info 1 ea 1 ea CONT PRN PRN MC SEE COMMENTS; Start 07/25/16 at 17:30 Magnesium Sulfate/ Dextrose (Magnesium Sulfate PREMIX 1GM) 100 ml @ 100 mls/hr PRN DAILY PRN IV FOR MAG < 2.2 Last administered on 07/27/16 10:59; Start 01/31 at 17:30 Famotidine (Pepcid) 20 mg BID IVP Last administered on 08/03/16 09:15; Start 07/25/16 at 21:00; Stop 08/03/16 at 15:28; Status DC Metoclopramide HCl (Reglan) 10 mg PRN Q6HRS PRN IV NAUSEA/VOMITING Last administered on 07/29/16 09:54; Start 07/25/16 at 17:30 Morphine Sulfate 2 mg PRN Q1HR PRN IV PAIN Last administered on 07/28/16 14:21 ; Start 07/25/16 at 17:30; Stop 07/29/16 at 13:38; Status DC Acetaminophen (Tylenol) 650 mg PRN Q4HRS PRN PO MILD PAIN / TEMP; Start at 17:30; Stop 07/29/16 at 13:38; Status DC Acetaminophen (Acetaminophen Supp) 650 mg PRN Q4HRS PRN [place] MILD PAIN / TEMP Last administered on 08/03/16 01:04; Start 07/25/16 at 17:30 Meperidine HCl 12.5 mg 12.5 mg PRN Q15MIN PRN IV SHIVERING; Start 07/25/16 at 17:30; Stop 07/29/16 at 13:38; Status DC Propofol (Diprivan) 100 ml @ 0 mls/hr CONT PRN PRN IV POSTOP SEDATION UNTIL EXTUBATE; Start 07/25/16 at 17:30; Stop 07/28/16 at 15:22; Status DC Aspirin (Ecotrin) 325 mg DAILYWBKFT PO Last administered on 07/29/16 09:54; Start 07/26/16 at 08:00; Stop 07/29/16 at 09:59; Status DC Aspirin (Aspirin) 300 mg PRN DAILY PRN [place] IF UNABLE TO TAKE PO; Start 07/25/16 at 17:30; Stop 07/26/16 at 12:00; Status DC Acetaminophen/ Hydrocodone Bitart (Lortab 5/325) 1 tab PRN Q4HRS PRN PO MILD PAIN; Start 07/25/16 at 17:30; Stop 08/03/16 at 12:24; Status DC Acetaminophen/ Hydrocodone Bitart 2 tab 2 tab PRN Q4HRS PRN PO MODERATE PAIN, SEVERE PAIN; Start 07/25/16 at 17:30; Stop 08/03/16 at 12:24; Status DC Cefazolin Sodium/ Dextrose 50 ml @ 100 mls/hr Q8H IV ; Start 07/25/16 at 18:00 ; Stop 07/25/16 at 21:42; Status DC Albumin Human 250 ml @ 62.5 mls/hr 1X ONCE IV Last administered on 07/27/16 17:52; Start 07/25/16 at 17:30; Stop 07/25/16 at 21:29; Status DC Midazolam HCl 100 ml @ As Directed STK-MED ONCE IV ; Start 07/25/16 at 18:06; Stop 07/25/16 at 18:07; Status DC Midazolam HCl 100 ml @ 0 mls/hr CONT PRN IV SEE I/O RECORD Last administered on 07/25/16 18:56; Start 07/25/16 at 18:15; Stop 07/26/16 at 08:59; Status DC Vancomycin HCl 1 gm/Sodium Chloride 250 ml @ 250 mls/hr 1X ONCE IV Last administered on 07/25/16 20:56; Start 07/25/16 at 18:15; Stop 07/25/16 at 19:14 ; Status DC Piperacillin Sod/ Tazobactam Sod/ Sodium Chloride (Zosyn/Iv Sodium Chloride 0.9 % 50ml) 50 ml @ 100 mls/hr Q6HRS IV Last administered on 07/31/16 05:32; Start 07/25/16 at 18:15; Stop 07/31/16 at 10:25; Status DC Midazolam HCl (Versed) 2 mg PRN Q20MIN PRN IV SEDATION; Start 07/25/16 at 18:15 ; Stop 07/25/16 at 18:39; Status DC Midazolam HCl 5 mg 5 mg PRN Q30MIN PRN IV SEDATION; Start 07/25/16 at 18:15; Stop 07/25/16 at 18:39; Status DC Vecuronium [place] 100 mg/ Dextrose 100 ml @ 0 mls/hr 1X ONCE IV Last administered on 07/25/16 19:43; Start 07/25/16 at 18:15; Stop 07/25/16 at 18:17 ; Status DC Midazolam HCl 100 ml @ 0 mls/hr CONT PRN IV SEE I/O RECORD Last administered on 07/28/16 19:40; Start 07/25/16 at 18:45 Dobutamine HCl/ Dextrose 250 ml @ 0 mls/hr CONT PRN IV SEE I/O RECORD Last administered on 07/29/16 03:10; Start 07/25/16 at 18:45; Stop 07/29/16 at 13:38 ; Status DC Potassium Chloride 50 ml @ 50 mls/hr Q1H IV Last administered on 07/25/16 22: 58; Start 07/25/16 at 21:00; Stop 07/25/16 at 23:59; Status DC Cefazolin Sodium/ Dextrose 50 ml @ 100 mls/hr Q8H IV Last administered on 07/27 05:34; Start 07/25/16 at 22:00; Stop 07/27/16 at 06:29; Status DC Heparin Sodium (Porcine) 43946 unit/Dextrose 512.5 ml @ 0 mls/hr Q0M ONCE IV Last administered on 07/25/16 22:21; Start 07/25/16 at 22:15; Stop 07/25/16 at 22:16; Status DC Vecuronium [place]/Dextrose (Norcuron) 100 ml @ 0 mls/hr CONT PRN IV SEE I/O RECORD Last administered on 07/26/16 01:07; Start 07/26/16 at 00:45; Stop 07/29 at 13:38; Status DC Dextrose 25 gm 25 gm 1X ONCE IV Last administered on 07/26/16 01:08; Start at 01:00; Stop 07/26/16 at 01:18; Status DC Amiodarone HCl/ Dextrose (Cordarone) 259 ml @ 17.26 mls/ hr CONT PRN IV SEE I/ O RECORD Last administered on 07/30/16 13:02; Start 07/26/16 at 06:45; Stop at 15:33; Status DC Cefazolin Sodium/ Dextrose 2 gm 2 gm STK-MED ONCE IV ; Start 07/25/16 at 11:00; Stop 07/26/16 at 08:53; Status DC Lactated Ringer's 500 ml @ 5,000 mls/hr PRN Q10MIN PRN IV CVP <14; Start 07/26 at 10:00; Stop 07/29/16 at 13:38; Status DC Fentanyl Citrate (Fentanyl 600 Mcg/30 ml BOILER/CHILLER OPERATOR) 30 ml @ 0 mls/hr CONT PRN IV PROTOCOL Last administered on 07/31/16 09:12; Start 07/26/16 at 10:00; Stop at 13:31; Status DC Fentanyl Citrate (Fentanyl 2ml Vial) 25 mcg PRN Q1HR PRN IV COMM; Start at 10:00; Stop 07/29/16 at 13:38; Status DC Fentanyl Citrate (Fentanyl 2ml Vial) 50 mcg PRN Q1HR PRN IV COMM; Start at 10:00; Stop 07/29/16 at 13:38; Status DC Chlorhexidine Gluconate (Peridex) 15 ml BID MM Last administered on 08/03/16 21:53; Start 07/26/16 at 10:30 Sulfur Hexafluoride Microspheres (Lumason) 25 mg STK-MED ONCE IVP ; Start at 11:29; Stop 07/26/16 at 11:30; Status DC Aspirin 300 mg 300 mg DAILY [place] Last administered on 07/28/16 07:55; Start 03/03 at 12:00; Stop 07/29/16 at 19:10; Status DC Potassium Chloride (KCl Premix 20meq) 50 ml @ 50 mls/hr 1X ONCE IV Last administered on 07/26/16 12:55; Start 07/26/16 at 12:00; Stop 07/26/16 at 12:59 ; Status DC Sulfur Hexafluoride Microspheres (Lumason) 25 mg 1X ONCE IVP Last administered on 07/26/16 11:45; Start 07/26/16 at 11:45; Stop 07/26/16 at 11:50 ; Status DC Multi-Ingred Cream/Lotion/Oil/ Oint (Artificial Tears Eye Oint) 1 adri BID OU Last administered on 08/03/16 21:55; Start 07/26/16 at 21:00 Ondansetron HCl (Zofran) 4 mg PRN Q6HRS PRN IV NAUSEA/VOMITING; Start 07/27/16 at 07:00; Stop 07/28/16 at 06:59; Status DC Fentanyl Citrate (Fentanyl 2ml Vial) 25 mcg PRN Q5MIN PRN IV MILD PAIN; Start 07/27/16 at 07:00; Stop 07/28/16 at 06:59; Status DC Fentanyl Citrate (Fentanyl 2ml Vial) 50 mcg PRN Q5MIN PRN IV MODERATE PAIN; Start 07/27/16 at 07:00; Stop 07/28/16 at 06:59; Status DC Morphine Sulfate 1 mg 1 mg PRN Q10MIN PRN IV SEVERE PAIN; Start 07/27/16 at 07: 00; Stop 07/28/16 at 06:59; Status DC Lactated Ringer's (Iv Lactated Ringers) 1,000 ml @ 30 mls/hr Q24H IV Last administered on 07/26/16 17:25; Start 07/27/16 at 07:00; Stop 07/27/16 at 18:59 ; Status DC Lidocaine HCl 2 ml PRN 1X PRN ID PRIOR TO IV START; Start 07/27/16 at 07:00; Stop 07/28/16 at 06:59; Status DC Hydromorphone HCl (Dilaudid) 0.5 mg PRN Q10MIN PRN IV SEV PAIN, Second choice; Start 07/27/16 at 07:00; Stop 07/28/16 at 06:59; Status DC Prochlorperazine Edisylate 5 mg 5 mg PACU PRN PRN IV NAUSEA, MRX1; Start at 07:00; Stop 07/28/16 at 06:59; Status DC Heparin Sodium (Porcine) 70133 unit/Dextrose 512.5 ml @ 0 mls/hr Q0M ONCE IV Last administered on 07/26/16 19:40; Start 07/26/16 at 18:30; Stop 07/26/16 at 18:31; Status DC Amiodarone HCl 150 mg/Dextrose 103 ml @ 618 mls/hr 1X ONCE IV Last administered on 07/26/16 19:25; Start 07/26/16 at 19:15; Stop 07/26/16 at 19:24 ; Status DC Norepinephrine Bitartrate 8 mg/ Sodium Chloride 258 ml @ 1.93 mls/hr CONT PRN IV SEE I/O RECORD Last administered on 08/03/16 11:12; Start 07/26/16 at 19:15 Amiodarone HCl 900 mg/Dextrose 518 ml @ 0 mls/hr CONT PRN IV PER PROTOCOL; Start 07/26/16 at 19:15; Stop 07/27/16 at 12:11; Status DC Milrinone Lactate/ Dextrose 100 ml @ 0 mls/hr CONT PRN IV SEE I/O RECORD Last administered on 07/26/16 20:03; Start 07/26/16 at 19:45; Stop 07/29/16 at 13:51 ; Status DC Calcium Chloride/ Sodium Chloride (Iv Sodium Chloride 0.9% 100ml) 120 ml @ 240 mls/hr 1X ONCE IV Last administered on 07/26/16 21:04; Start 07/26/16 at 21: 30; Stop 07/26/16 at 21:59; Status DC Digoxin 500 mcg 500 mcg 1X ONCE IV Last administered on 07/26/16 21:55; Start 07/26/16 at 21:45; Stop 07/26/16 at 21:46; Status DC Cefazolin Sodium/ Sodium Chloride (Ancef/Iv Sodium Chloride 0.9% 500ml Bag) 500 ml @ 500 mls/hr 1X PERIOP ONCE IRR Last administered on 07/27/16 14:37; Start 07/27/16 at 10:00; Stop 07/27/16 at 10:59; Status DC Vancomycin HCl (Vanco) 10 gm 1X ONCE CEMENT Last administered on 07/27/16 14: 37; Start 07/27/16 at 12:30; Stop 07/27/16 at 12:31; Status DC Rocuronium [place] (Zemuron) 100 mg STK-MED ONCE .ROUTE ; Start 07/27/16 at 12: 32; Stop 07/27/16 at 12:33; Status DC Lorazepam (Ativan) 2 mg STK-MED ONCE .ROUTE ; Start 07/27/16 at 14:13; Stop 04/02 at 14:14; Status DC Phenylephrine HCl 1 mg 1 mg STK-MED ONCE IV ; Start 07/27/16 at 14:18; Stop 04/02 at 14:19; Status DC Albumin Human (Plasmanate) 250 ml @ 62.5 mls/hr 1X ONCE IV Last administered on 07/27/16 17:52; Start 07/27/16 at 17:15; Stop 07/27/16 at 21:14; Status DC Sodium Bicarbonate 50 meq STK-MED ONCE .ROUTE ; Start 07/27/16 at 17:39; Stop at 17:40; Status DC Sodium Bicarbonate 50 meq 1X ONCE IV Last administered on 07/27/16 17:51; Start 07/27/16 at 18:00; Stop 07/27/16 at 18:01; Status DC Sodium Bicarbonate 50 meq 1X ONCE IV Last administered on 07/27/16 17:52; Start 07/27/16 at 18:00; Stop 07/27/16 at 18:01; Status DC Fentanyl Citrate (Fentanyl 2ml Vial) 25 mcg PRN Q5MIN PRN IV MILD PAIN; Start 07/28/16 at 07:00; Stop 07/29/16 at 06:59; Status DC Fentanyl Citrate (Fentanyl 2ml Vial) 50 mcg PRN Q5MIN PRN IV MODERATE PAIN; Start 07/28/16 at 07:00; Stop 07/29/16 at 06:59; Status DC Morphine Sulfate 1 mg 1 mg PRN Q10MIN PRN IV SEVERE PAIN; Start 07/28/16 at 07: 00; Stop 07/29/16 at 06:59; Status DC Lactated Ringer's (Iv Lactated Ringers) 1,000 ml @ 30 mls/hr Q24H IV Last administered on 07/28/16 06:49; Start 07/28/16 at 06:49; Stop 07/28/16 at 18:48 ; Status DC Lidocaine HCl 2 ml PRN 1X PRN ID PRIOR TO IV START; Start 07/28/16 at 07:00; Stop 07/29/16 at 06:59; Status DC Hydromorphone HCl (Dilaudid) 0.5 mg PRN Q10MIN PRN IV SEV PAIN, Second choice; Start 07/28/16 at 07:00; Stop 07/29/16 at 06:59; Status DC Rocuronium [place] 50 mg 50 mg STK-MED ONCE .ROUTE ; Start 07/28/16 at 07:27; Stop 07/28/16 at 07:28; Status DC Cefazolin Sodium/ Sodium Chloride (Ancef/Iv Sodium Chloride 0.9% 500ml Bag) 500 ml @ 500 mls/hr 1X PERIOP ONCE IRR Last administered on 07/28/16 09:25; Start 07/28/16 at 08:00; Stop 07/28/16 at 08:59; Status DC Cellulose 1 each STK-MED ONCE .ROUTE ; Start 07/28/16 at 07:42; Stop 07/28/16 at 07:43; Status DC Bupivacaine HCl/ Epinephrine Bitart 50 ml 50 ml STK-MED ONCE .ROUTE ; Start at 07:42; Stop 07/28/16 at 07:43; Status DC Heparin Sodium (Porcine)/Sodium Chloride (Heparin Sodium/ Iv Sodium Chloride 0.9 % 500ml Bag) 505 ml @ 505 mls/hr 1X PERIOP ONCE IRR Last administered on 07/28 10:19; Start 07/28/16 at 08:15; Stop 07/28/16 at 09:14; Status DC Lorazepam 2 mg 2 mg STK-MED ONCE .ROUTE ; Start 07/28/16 at 08:29; Stop at 08:30; Status DC Magnesium Sulfate/ Dextrose (Magnesium Sulfate PREMIX 1GM) 100 ml @ 100 mls/hr 1X ONCE IV Last administered on 07/28/16 13:09; Start 07/28/16 at 09:00; Stop 07/28/16 at 09:59; Status DC Vasopressin (Vasostrict) 20 unit STK-MED ONCE .ROUTE ; Start 07/28/16 at 09:03; Stop 07/28/16 at 09:04; Status DC Epinephrine HCl (Epinephrine Syringe) 1 mg STK-MED ONCE .ROUTE ; Start 07/28/16 at 09:09; Stop 07/28/16 at 09:10; Status DC Calcium Chloride 1,000 mg STK-MED ONCE IV ; Start 07/28/16 at 09:09; Stop at 09:10; Status DC Phenylephrine HCl 1 mg STK-MED ONCE IV ; Start 07/28/16 at 09:54; Stop 07/28/16 at 09:55; Status DC Sevoflurane 60 ml 60 ml STK-MED ONCE IH ; Start 07/28/16 at 09:54; Stop at 09:55; Status DC Epinephrine HCl/ Sodium Chloride (Adrenalin/Iv Sodium Chloride 0.9% 250ml) 254 ml @ 3.81 mls/hr 1X ONCE IV ; Start 07/28/16 at 10:00; Stop 07/29/16 at 19:10 ; Status DC Heparin Sodium (Porcine) 26024 unit 10,000 unit STK-MED ONCE .ROUTE ; Start at 09:57; Stop 07/28/16 at 09:58; Status DC Albumin Human (Plasmanate) 500 ml @ As Directed STK-MED ONCE IV ; Start at 09:57; Stop 07/28/16 at 09:58; Status DC Iohexol 100 ml 100 ml STK-MED ONCE .ROUTE ; Start 07/28/16 at 10:39; Stop at 10:40; Status DC Heparin Sodium/ Sodium Chloride 500 ml @ As Directed STK-MED ONCE .ROUTE ; Start 07/28/16 at 10:39; Stop 07/28/16 at 10:40; Status DC Iohexol 100 ml 100 ml STK-MED ONCE .ROUTE ; Start 07/28/16 at 10:43; Stop at 10:44; Status DC Heparin Sodium/ Sodium Chloride 500 ml @ As Directed STK-MED ONCE .ROUTE ; Start 07/28/16 at 11:21; Stop 07/28/16 at 11:22; Status DC Albuterol Sulfate (Ventolin Neb Soln) 2.5 mg RTQID NEB Last administered on 08:46; Start 07/28/16 at 12:00; Stop 07/30/16 at 17:05; Status DC Furosemide (Lasix) 40 mg 1X ONCE IVP Last administered on 07/28/16 13:16; Start 07/28/16 at 13:15; Stop 07/28/16 at 13:16; Status DC Furosemide (Lasix) 40 mg 1X ONCE IVP Last administered on 07/28/16 13:19; Start 07/28/16 at 14:00; Stop 07/28/16 at 14:01; Status DC Heparin Sodium/ Sodium Chloride 1000 unit 1,000 unit CONT PRN IV ART LINE FLUSH Last administered on 08/02/16 06:47; Start 07/28/16 at 14:45 Albumin Human 250 ml @ 62.5 mls/hr PRN Q1HR PRN IV SEE COMMENTS Last administered on 08/02/16 16:12; Start 07/28/16 at 15:15 Furosemide 100 mg/ Sodium Chloride 100 ml @ 5 mls/hr CONT PRN IV SEE I/O RECORD Last administered on 07/30/16 09:50; Start 07/28/16 at 15:30; Stop 07/31 at 13:31; Status DC Potassium Chloride 50 ml @ 50 mls/hr Q1H IV Last administered on 07/28/16 19: 39; Start 07/28/16 at 18:30; Stop 07/28/16 at 20:29; Status DC Potassium Chloride (KCl Premix 20meq) 50 ml @ 50 mls/hr Q1H IV Last administered on 07/29/16 09:36; Start 07/29/16 at 07:00; Stop 07/29/16 at 08:59 ; Status DC Lorazepam (Ativan) 2 mg STK-MED ONCE .ROUTE ; Start 07/28/16 at 08:30; Stop at 08:16; Status DC Aspirin (Arti Aspirin) 325 mg DAILYWBKFT PO Last administered on 08/03/16 09: 13; Start 07/30/16 at 08:00 Docusate Sodium 100 mg 100 mg DAILY PO Last administered on 07/31/16 07:59; Start 07/30/16 at 09:00; Stop 07/31/16 at 11:00; Status DC Dobutamine HCl/ Dextrose 250 ml @ 12.1 mls/hr CONT PRN IV PER PROTOCOL Last administered on 08/02/16 18:03; Start 07/29/16 at 13:30 Potassium Chloride 50 ml @ 50 mls/hr Q1H IV Last administered on 07/29/16 22: 39; Start 07/29/16 at 20:00; Stop 07/29/16 at 22:59; Status DC Potassium Chloride (KCl Premix 20meq) 50 ml @ 50 mls/hr Q1H IV Last administered on 07/30/16 09:19; Start 07/30/16 at 07:00; Stop 07/30/16 at 08:59 ; Status DC Ipratropium [place] (Atrovent) 0.5 mg RTQID NEB Last administered on 08/04/16 08:33; Start 07/30/16 at 12:30 Digoxin 500 mcg 500 mcg 1X ONCE IV Last administered on 07/30/16 13:01; Start 07/30/16 at 12:15; Stop 07/30/16 at 12:19; Status DC Dexmedetomidine HCl/Sodium Chloride (Precedex/Iv Sodium Chloride 0.9% 50ml) 50 ml @ 0 mls/hr CONT PRN IV PER PROTOCOL Last administered on 08/04/16 05:20; Start 07/30/16 at 13:30 Atropine Sulfate 0.5 mg PRN Q5MIN PRN IV SEE COMMENTS; Start 07/30/16 at 13:30 Amiodarone HCl (Cordarone) 400 mg ONCE ONCE PO Last administered on 07/30/16 15:01; Start 07/30/16 at 13:30; Stop 07/30/16 at 13:46; Status DC Amiodarone HCl (Cordarone) 400 mg BID PO Last administered on 08/03/16 21:55; Start 07/30/16 at 21:00 Digoxin 125 mcg 125 mcg DAILY IV Last administered on 08/02/16 08:56; Start at 09:00; Stop 08/03/16 at 14:27; Status DC Albumin Human (Albuminar) 50 ml @ 50 mls/hr 1X ONCE IV Last administered on 16:26; Start 07/30/16 at 16:30; Stop 07/30/16 at 17:29; Status DC Ibuprofen (Motrin) 200 mg PRN Q6HRS PRN PO fever; Start 07/30/16 at 19:45; Stop 08/01/16 at 12:22; Status DC Metoprolol Tartrate (Lopressor) 2.5 mg 1X ONCE IVP Last administered on 20:23; Start 07/30/16 at 20:30; Stop 07/30/16 at 20:31; Status DC Metoprolol Tartrate 5 mg 5 mg PRN Q2HR PRN IVP HYPERTENSION Last administered on 07/31/16 08:04; Start 07/30/16 at 22:30 Potassium Chloride (KCl Premix 20meq) 50 ml @ 50 mls/hr Q1H IV Last administered on 07/31/16 09:04; Start 07/31/16 at 07:00; Stop 07/31/16 at 08:59 ; Status DC Metoprolol Tartrate (Lopressor) 12.5 mg BID NG Last administered on 08/03/16 21:54; Start 07/31/16 at 10:00 Docusate Sodium (Colace Solution) 100 mg PRN DAILY PRN PO constipation Last administered on 08/01/16 08:40; Start 07/31/16 at 11:00 Hydralazine HCl (Apresoline) 10 mg PRN Q2HRS PRN IVP ELEVATED BP, SEE COMMENTS Last administered on 08/01/16 16:35; Start 07/31/16 at 13:30 Fentanyl Citrate (Fentanyl 2ml Vial) 50 mcg PRN Q2HR PRN IV PAIN Last administered on 08/02/16 12:57; Start 07/31/16 at 13:45 Furosemide (Lasix) 40 mg TID IVP Last administered on 08/02/16 05:49; Start at 14:00; Stop 08/02/16 at 15:33; Status DC Alteplase, Recombinant (Cathflo) 2 mg 1X ONCE INT CAT Last administered on 23:34; Start 07/31/16 at 23:15; Stop 07/31/16 at 23:16; Status DC Haloperidol Lactate (Haldol) 5 mg PRN Q6HRS PRN IVP MODERATE AGITATION Last administered on 08/01/16 21:21; Start 08/01/16 at 21:00 Haloperidol Lactate 10 mg 10 mg PRN Q6HRS PRN IVP SEVERE AGITATION Last administered on 08/01/16 23:59; Start 08/01/16 at 23:45 Propofol 100 ml @ 0 mls/hr CONT PRN IV SEE I/O RECORD Last administered on 08/02 11:43; Start 08/02/16 at 02:45 Piperacillin Sod/ Tazobactam Sod/ Sodium Chloride (Zosyn/Iv Sodium Chloride 0.9 % 50ml) 50 ml @ 100 mls/hr Q6HRS IV Last administered on 08/02/16 13:17; Start 08/02/16 at 12:00; Stop 08/02/16 at 15:43; Status DC Vancomycin HCl 1 each 1 each PRN DAILY PRN MC SEE COMMENTS Last administered on 08/02/16 13:20; Start 08/02/16 at 11:45; Stop 08/03/16 at 15:24; Status DC Vancomycin HCl 2 gm/Sodium Chloride 500 ml @ 250 mls/hr 1X ONCE IV Last administered on 08/02/16 11:52; Start 08/02/16 at 12:00; Stop 08/02/16 at 13:59 ; Status DC Sodium Chloride (Iv Sodium Chloride 0.9% 500ml Bag) 500 ml @ 500 mls/hr 1X ONCE IV Last administered on 08/02/16 12:39; Start 08/02/16 at 12:45; Stop at 13:44; Status DC Vecuronium [place] (Norcuron Bolus) 10 mg 1X STAT IV Last administered on 08/02 13:34; Start 08/02/16 at 13:17; Stop 08/02/16 at 13:23; Status DC Vancomycin HCl 1 each 1 each 1X ONCE MC ; Start 08/03/16 at 23:30; Stop at 23:30; Status DC Vancomycin HCl 1.25 gm/Sodium Chloride 250 ml @ 167 mls/hr Q12H IV Last administered on 08/03/16 00:33; Start 08/03/16 at 00:00; Stop 08/03/16 at 11:07 ; Status DC Fentanyl Citrate (Fentanyl 600 Mcg/30 ml BOILER/CHILLER 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) 30 ml @ 0 mls/hr CONT PRN PRN IV PROTOCOL Last administered on 08/03/16 23:15; Start 08/02/16 at 13:30 Naloxone HCl 0.4 mg 0.4 mg PRN Q2MIN PRN IV SEE INSTRUCTIONS; Start 08/02/16 at 13:30 Micafungin Sodium 100 mg/Dextrose 100 ml @ 100 mls/hr Q24H IV Last administered on 08/03/16 18:36; Start 08/02/16 at 17:00 Lactated Ringer's 1,000 ml @ 1,000 mls/hr 1X ONCE IV Last administered on 15:45; Start 08/02/16 at 15:45; Stop 08/02/16 at 16:44; Status DC Piperacillin Sod/ Tazobactam Sod 4.5 gm/Sodium Chloride 100 ml @ 200 mls/hr Q6HRS IV Last administered on 08/03/16 12:00; Start 08/02/16 at 18:00; Stop at 14:02; Status DC Albumin Human (Plasmanate) 500 ml @ 125 mls/hr 1X ONCE IV Last administered on 08/02/16 20:37; Start 08/02/16 at 20:30; Stop 08/03/16 at 00:29; Status DC Furosemide (Lasix) 40 mg 1X ONCE IVP Last administered on 08/03/16 00:16; Start 08/02/16 at 20:30; Stop 08/02/16 at 20:31; Status DC Acetaminophen (Tylenol) 650 mg 1X ONCE NG Last administered on 08/03/16 02:03 ; Start 08/03/16 at 02:15; Stop 08/03/16 at 02:16; Status DC Ketorolac Tromethamine 15 mg 15 mg 1X ONCE IV Last administered on 08/03/16 02:03; Start 08/03/16 at 02:15; Stop 08/03/16 at 02:16; Status DC Lactated Ringer's (Iv Lactated Ringers) 500 ml @ 500 mls/hr 1X ONCE IV Last administered on 08/03/16 10:15; Start 08/03/16 at 10:15; Stop 08/03/16 at 11:14 ; Status DC Sodium Bicarbonate 50 meq 1X ONCE IV Last administered on 08/03/16 10:44; Start 08/03/16 at 10:15; Stop 08/03/16 at 10:20; Status DC Calcium Gluconate 1000 mg 1,000 mg 1X ONCE IVP ; Start 08/03/16 at 12:15; Stop 08/03/16 at 12:16; Status DC Sodium Bicarbonate 150 meq/Dextrose/ Sodium Chloride 1,150 ml @ 100 mls/hr [id number] PRN IV .; Start 08/03/16 at 12:30; Stop 08/03/16 at 13:03; Status DC Magnesium Sulfate/ Dextrose 50 ml @ 25 mls/hr PRN DAILY PRN IV for Mag < 1.7 on am labs; Start 08/03/16 at 12:30 Sodium Bicarbonate 150 meq/Dextrose 1,150 ml @ 100 mls/hr [id number] IV Last administered on 08/04/16 04:31; Start 08/03/16 at 13:30; Stop 08/04/16 at 08:31 ; Status DC Calcium Chloride 2000 mg/Sodium Chloride 120 ml @ 240 mls/hr 1X ONCE IV Last administered on 08/03/16 13:30; Start 08/03/16 at 13:30; Stop 08/03/16 at 13:59 ; Status DC Piperacillin Sod/ Tazobactam Sod/ Sodium Chloride (Zosyn/Iv Sodium Chloride 0.9 % 50ml) 50 ml @ 100 mls/hr Q6HRS IV Last administered on 08/04/16 01:37; Start 08/03/16 at 18:00 Heparin Sodium (Porcine) (Heparin Sodium) 10,000 unit STK-MED ONCE .ROUTE ; Start 08/03/16 at 14:31; Stop 08/03/16 at 14:32; Status DC Lidocaine/Sodium Bicarbonate (Buffered Lidocaine 1%) 20 ml STK-MED ONCE IJ ; Start 08/03/16 at 14:31; Stop 08/03/16 at 14:32; Status DC Heparin Sodium/ Sodium Chloride 60 unit 1X ONCE IV Last administered on 16:17; Start 08/03/16 at 14:45; Stop 08/03/16 at 14:46; Status DC Heparin Sodium (Porcine) (Heparin Sodium) 2,500 unit 1X ONCE INT CAT Last administered on 08/03/16 16:16; Start 08/03/16 at 14:45; Stop 08/03/16 at 14:46 ; Status DC Lidocaine/Sodium Bicarbonate (Buffered Lidocaine 1%) 3 ml 1X ONCE IJ Last administered on 08/03/16 16:16; Start 08/03/16 at 14:45; Stop 08/03/16 at 14:46 ; Status DC Fentanyl Citrate (Fentanyl 2ml Vial) 25 mcg PRN Q5MIN PRN IV MILD PAIN; Start 08/04/16 at 07:00; Stop 08/05/16 at 06:59 Fentanyl Citrate (Fentanyl 2ml Vial) 50 mcg PRN Q5MIN PRN IV MODERATE PAIN; Start 08/04/16 at 07:00; Stop 08/05/16 at 06:59 Morphine Sulfate 1 mg 1 mg PRN Q10MIN PRN IV SEVERE PAIN; Start 08/04/16 at 07: 00; Stop 08/05/16 at 06:59 Lactated Ringer's (Iv Lactated Ringers) 1,000 ml @ 0 mls/hr Q0M IV ; Start at 07:00; Stop 08/04/16 at 18:59 Lidocaine HCl 2 ml PRN 1X PRN ID PRIOR TO IV START; Start 08/04/16 at 07:00; Stop 08/05/16 at 06:59 Hydromorphone HCl (Dilaudid) 0.5 mg PRN Q10MIN PRN IV SEV PAIN, Second choice; Start 08/04/16 at 07:00; Stop 08/05/16 at 06:59 Famotidine (Pepcid) 20 mg DAILY IVP ; Start 08/04/16 at 09:00 Insulin Aspart (Novolog) 0-7 UNITS TIDWMEALS SQ ; Start 08/03/16 at 19:00 Dextrose 12.5 gm 12.5 gm PRN Q15MIN PRN IV SEE COMMENTS; Start 08/03/16 at 18: 30 Sodium Chloride 1,000 ml @ 1,000 mls/hr Q1H PRN IV hypotension; Start 08/03/16 at 18:33; Stop 08/04/16 at 00:32; Status DC Sodium Chloride (Iv Sodium Chloride 0.9% 1000ml Bag) 1,000 ml @ 400 mls/hr Q2H30M PRN IV PATENCY; Start 08/03/16 at 18:33; Stop 08/04/16 at 06:32; Status DC Info 1 each 1 each PRN DAILY PRN MC SEE COMMENTS; Start 08/03/16 at 18:45 Sodium Chloride 1,000 ml @ 1,000 mls/hr Q1H PRN IV hypotension; Start 08/04/16 at 07:44; Stop 08/04/16 at 13:43 Albumin Human (Albuminar) 200 ml @ 200 mls/hr 1X PRN PRN IV Hypotension Last administered on 08/04/16t 08:48; Start 08/04/16 at 07:45; Stop 08/04/16 at 13:44 Diphenhydramine HCl (Benadryl) 25 mg 1X PRN PRN IV ITCHING; Start 08/04/16 at 07:45; Stop 08/05/16 at 07:44 Diphenhydramine HCl (Benadryl) 25 mg 1X PRN PRN IV ITCHING; Start 08/04/16 at 07:45; Stop 08/05/16 at 07:44 Sodium Chloride (Normal Saline Flush) 10 ml 1X PRN PRN IV AP catheter pack; Start 08/04/16 at 07:45; Stop 08/05/16 at 07:44 Sodium Chloride 10 ml 10 ml 1X PRN PRN IV [employer]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; Start 08/04/16 at 07:45; Stop 08/05/16 at 07:44 Sodium Chloride (Iv Sodium Chloride 0.9% 1000ml Bag) 1,000 ml @ 400 mls/hr Q2H30M PRN IV PATENCY; Start 08/04/16 at 07:44; Stop 08/04/16 at 19:43 Info (PHARMACY MONITORING -- do not chart) 1 each PRN DAILY PRN MC SEE COMMENTS ; Start 08/04/16 at 07:45 Active Scripts Active Reported Amlodipine Besylate 5 Mg Tablet 5 Mg PO DAILY Pradaxa (Dabigatran Etexilate Mesylate) 150 Mg Capsule 1 Cap PO BID Metoprolol Succinate ( Xl ) (Metoprolol Succinate) 100 Mg Tab.er.24h 1 Tab PO DAILY Vitals/I & O Vital Sign - Last 24 Hours 08/03/16 08/03/16 08/03/16 08/03/16 09:37 10:00 10:09 11:37 Temp 100.4 100.4 Pulse 92 Resp 17 B/P 108/52 Pulse Ox 98 97 97 O2 Delivery Mechanical Ventilator Ventilator Ventilator Ventilator 08/03/16 08/03/16 08/03/16 08/03/16 12:00 12:00 12:36 12:52 Temp 100.5 100.4 100.2 100.5 100.4 100.2 Pulse 115 112 122 Resp 16 16 16 B/P 136/64 134/68 132/68 Pulse Ox 94 O2 Delivery Mechanical Ventilator Ventilator 08/03/16 08/03/16 08/03/16 08/03/16 13:00 13:32 13:50 13:52 Temp 100.5 100.3 100.5 100.3 Pulse 125 125 Resp 16 16 B/P 124/60 138/63 Pulse Ox 94 94 97 O2 Delivery Ventilator Ventilator Ventilator 08/03/16 08/03/16 08/03/16 08/03/16 14:00 14:02 15:00 15:57 Temp 100.5 100.5 100.5 100.5 Pulse 140 120 Resp 16 16 B/P 138/58 146/64 Pulse Ox 96 94 98 94 O2 Delivery Ventilator Ventilator Ventilator Ventilator 08/03/16 08/03/16 08/03/16 08/03/16 16:00 16:00 17:00 18:00 Temp 101.0 101.0 Pulse 122 112 78 Resp 16 16 16 B/P 140/72 128/78 128/78 Pulse Ox 96 97 94 O2 Delivery Ventilator Mechanical Ventilator Ventilator Ventilator 08/03/16 08/03/16 08/03/16 08/03/16 18:05 19:00 20:00 20:00 Temp 98.2 98.2 Pulse 100 106 Resp 18 22 B/P 152/78 120/68 Pulse Ox 99 96 93 O2 Delivery Ventilator Ventilator Ventilator Mechanical Ventilator 08/03/16 08/03/16 08/03/16 08/03/16 21:00 21:06 21:54 21:55 Pulse 88 89 79 Resp 28 B/P 110/62 130/67 130/67 Pulse Ox 97 99 O2 Delivery Ventilator Ventilator 08/03/16 08/03/16 08/04/16 08/04/16 22:00 23:00 00:00 00:00 Temp 97.4 97.2 97.4 97.2 Pulse 86 84 82 Resp 16 17 B/P 134/72 152/74 144/76 Pulse Ox 99 99 98 O2 Delivery Ventilator Ventilator Mechanical Ventilator Ventilator 08/04/16 08/04/16 08/04/16 08/04/16 00:06 01:00 02:00 02:21 Temp 97.5 97.5 Pulse 78 72 Resp 16 16 B/P 144/74 118/62 Pulse Ox 99 99 100 99 O2 Delivery Ventilator Ventilator Ventilator Ventilator 08/04/16 08/04/16 08/04/16 08/04/16 03:00 04:00 04:00 05:00 Temp 97.4 97.4 Pulse 74 72 70 Resp 18 22 19 B/P 112/60 116/62 116/64 Pulse Ox 98 98 98 O2 Delivery Ventilator Mechanical Ventilator Ventilator Ventilator 08/04/16 08/04/16 08/04/16 08/04/16 06:00 07:00 07:27 08:00 Temp 97.4 97.4 Pulse 74 72 Resp 16 20 B/P 112/60 98/56 Pulse Ox 100 98 99 O2 Delivery Ventilator Ventilator Ventilator Mechanical Ventilator 08/04/16 08/04/16 08/04/16 08:00 08:33 09:00 Temp 97.5 97.5 Pulse 67 83 Resp 22 22 B/P 100/52 102/52 Pulse Ox 99 94 97 O2 Delivery Ventilator Ventilator Ventilator Intake and Output 08/03/16 08/03/16 08/04/16 15:00 23:00 07:00 Intake Total 650 ml 933 ml 1187 ml Output Total 125 ml 90 ml 75 ml Balance 525 ml 843 ml [address] head yesterday: Extra-axial fluid collection compatible with a subdural or epidural hematoma persists posteriorly near the right hemispheric vertex but is less conspicuous. It is no larger and has probably partially dissipated. Suspect bland infarct in the right frontal lobe. The finding is not certain No parenchymal hemorrhage is seen. ANA LAURA OLIVEIRA MD Aug 04, 2016 09:26
[2016-08-04 10:55] LABS: HCO3 ABG 26 mmol/L (21-28); PCO2 ABG 34 mmHg (35-46); PH ABG 7.51 (7.35-7.45); PO2 ABG 77 mmHg (75-108); SAT O2 ABG 94 % (92-99)
[2016-08-04 10:58] LABS: FIO2 ABG 40
--- NOTE | 2016-08-04 11:12 | PDOC ---
CARDIO Progress Notes Date and Time Date of Service 08/05/2015 Time of Evaluation 1105 Subjective Subjective: Other (awake, recognizing this provider; nods head appropriately to questions ) Comments: on hemodialysis Vitals Vitals Vital Signs Date Time Temp Pulse Resp B/P Pulse Ox O2 Delivery O2 Flow Rate FiO2 08/04/16 10:00 90 30 116/62 99 Ventilator 08/04/16 08:00 97.5 97.5 Weight Weight [ ] Stability Assessment Stability Assess.: unstable for transfer (Intesive V. sign monit. req) Input and Output Intake and Output Intake and Output 08/04/16 07:00 Intake Total 2770 ml Output Total 290 ml Balance 2480 ml Intake Oral 0 ml IV Total 2220 ml Blood Product IV Normal Saline Flush 550 ml Output Urine Total 290 ml # Bowel Movements 2 Laboratory Labs Laboratory Tests Test 08/03/16 15:55 08/03/16 16:00 08/03/16 17:00 08/03/16 17:08 Urine Collection Type Unknown Urine Color Keke Urine Clarity Turbid Urine pH 5.0 Urine Specific [place] 1.020 Urine Protein 100mg/dL (NEG-TRACE) Urine Glucose (UA) Negativemg/dL (NEG) Urine Ketones (Stick) Negativemg/dL (NEG) Urine Blood Moderate (NEG) Urine Nitrite Negative (NEG) Urine Bilirubin Small (NEG) Urine Urobilinogen Dipstick 1.0mg/dL (0.2 mg/dL) Urine Leukocyte Esterase Negative (NEG) Urine RBC 6-10/HPF (0-2) Urine WBC 0/HPF (0-4) Urine Squamous Epithelial Cells Occ/LPF Urine Amorphous Sediment Present/HPF Urine Bacteria 0/HPF (0-FEW) Urine Hyaline Casts Few/HPF Urine Granular Casts Few/HPF Urine Mucus Slight/LPF White Blood Count 11.2x10^3/uL (4.0-11.0) Red Blood Count 2.69x10^6/uL (4.30-5.70) Hemoglobin 8.6g/dL (13.0-17.5) Hematocrit 26.5% (39.0-53.0) Mean Corpuscular Volume 99fL (79-100) Mean Corpuscular Hemoglobin 32pg (25-35) Mean Corpuscular Hemoglobin Concent 33g/dL (31-37) Red Cell Distribution Width 16.3% (11.5-14.5) Platelet Count 82x10^3/uL (140-400) Neutrophils (%) (Auto) 91% (31-73) Lymphocytes (%) (Auto) 5% (24-48) Monocytes (%) (Auto) 4% (0-9) Eosinophils (%) (Auto) 0% (0-3) Basophils (%) (Auto) 0% (0-3) Neutrophils # (Auto) 10.1x10^3uL (1.8-7.7) Lymphocytes # (Auto) 0.6x10^3/uL (1.0-4.8) Monocytes # (Auto) 0.4x10^3/uL (0.0-1.1) Eosinophils # (Auto) 0.0x10^3/uL (0.0-0.7) Basophils # (Auto) 0.0x10^3/uL (0.0-0.2) Segmented Neutrophils % 75% (35-66) Band Neutrophils % 16% (0-9) Lymphocytes % 7% (24-48) Monocytes % 2% (0-10) Nucleated Red Blood Cells 4 Toxic Granulation Slight Dohle Bodies Present Platelet Estimate Decreased (ADEQUATE) Polychromasia Present Poikilocytosis Slight Basophilic Stippling Present Anisocytosis Slight Sodium Level 152mmol/L (136-145) Potassium Level 5.3mmol/L (3.5-5.1) Chloride Level 113mmol/L (98-107) Carbon Dioxide Level 25mmol/L (21-32) Anion Gap 14 (6-14) Blood Urea Nitrogen 95mg/dL (8-26) Creatinine 3.6mg/dL (0.7-1.3) Estimated GFR (Cockcroft-Gault) 17.6 Glucose Level 184mg/dL (70-99) Calcium Level 7.1mg/dL (8.5-10.1) Procalcitonin 44.51ng/mL (0.00-0.10) Digoxin Level 1.9ng/mL (0.9-2.0) Digoxin Last Dose Date 08/02/16 Digoxin Last Dose Time 0856 Prothrombin Time 17.4SEC (11.7-14.0) Prothromb Time International Ratio 1.5 (0.8-1.1) Activated Partial Thromboplast Time 44SEC (24-38) Glucose (Fingerstick) 165mg/dL (70-99) Test 08/04/16 07:00 08/04/16 08:00 White Blood Count 6.6x10^3/uL (4.0-11.0) Red Blood Count 2.51x10^6/uL (4.30-5.70) Hemoglobin 8.0g/dL (13.0-17.5) Hematocrit 23.9% (39.0-53.0) Mean Corpuscular Volume 95fL (79-100) Mean Corpuscular Hemoglobin 32pg (25-35) Mean Corpuscular Hemoglobin Concent 34g/dL (31-37) Red Cell Distribution Width 16.2% (11.5-14.5) Platelet Count 68x10^3/uL (140-400) Neutrophils (%) (Auto) 88% (31-73) Lymphocytes (%) (Auto) 8% (24-48) Monocytes (%) (Auto) 4% (0-9) Eosinophils (%) (Auto) 1% (0-3) Basophils (%) (Auto) 0% (0-3) Neutrophils # (Auto) 5.8x10^3uL (1.8-7.7) Lymphocytes # (Auto) 0.5x10^3/uL (1.0-4.8) Monocytes # (Auto) 0.2x10^3/uL (0.0-1.1) Eosinophils # (Auto) 0.1x10^3/uL (0.0-0.7) Basophils # (Auto) 0.0x10^3/uL (0.0-0.2) Sodium Level 144mmol/L (136-145) Potassium Level 3.5mmol/L (3.5-5.1) Chloride Level 103mmol/L (98-107) Carbon Dioxide Level 30mmol/L (21-32) Anion Gap 11 (6-14) Blood Urea Nitrogen 69mg/dL (8-26) Creatinine 3.1mg/dL (0.7-1.3) Estimated GFR (Cockcroft-Gault) 20.9 BUN/Creatinine Ratio 22 (6-20) Glucose Level 186mg/dL (70-99) Calcium Level 7.2mg/dL (8.5-10.1) Phosphorus Level 7.0mg/dL (2.6-4.7) Magnesium Level 2.2mg/dL (1.8-2.4) Total Bilirubin 4.8mg/dL (0.2-1.0) Aspartate Amino Transf (AST/SGOT) 49U/L (15-37) Alanine Aminotransferase (ALT/SGPT) 96U/L (16-63) Alkaline Phosphatase 69U/L (46-116) Total Protein 4.8g/dL (6.4-8.2) Albumin 2.0g/dL (3.4-5.0) Albumin/Globulin Ratio 0.7 (1.0-1.7) O2 Saturation 94% (92-99) Arterial Blood pH 7.51 (7.35-7.45) Arterial Blood pCO2 at Patient Temp 34mmHg (35-46) Arterial Blood pO2 at Patient Temp 77mmHg (75-108) Arterial Blood HCO3 26mmol/L (21-28) Arterial Blood Base Excess 3mmol/L (-3-3) FiO2 40 Microbiology Micro Microbiology 08/02/16 Blood Culture - Preliminary, Resulted NO GROWTH AFTER 1 DAY 07/31/16 Sputum Culture - Final, Complete 07/31/16 Sputum Result 1 - Final, Complete 08/03/16 Gram Stain - Final, Complete Case Discussion Case Discussed with: Family, Physician, Other (RN) Continued Hospitalization Reason for continued Hospitali: IVABX, high O2 needs, continued fevers, abnormal labs Physical Exam HEENT: Neck Supple W Full Motion Chest: Symmetric, Other (oral ETT/oral gastric tube) LUNGS: Other (coarse) Heart: S1S2, irregularly irregular, other (atrial flutter) Abdomen: Soft N/T Extremities: Other (anasarca; DP/PT pulses by Doppler; feet warm) Neurology: follow commands Assessment Assessment 1. STEMI troponin peaked @ 96.465 CABG on 07/25/2016 with FLETCHER to LAD; SVG to LAD; SVG to OM1 and SVG to RPDA VF arrest post-op with post-op CT continue amiodarone 2. cardiogenic shock Impella removed 07/28/2016 - LVEF ~ 25% by echo TTE on 07/26/2016 with severe global hypokinesis of the left ventricle distal 2/3 of the LV is severely hypokinetic with akinesis of the mid to distal LAD and apex LVEF depressed at about 20%; repeat limited echo on 08/02/2016 - LVEF ~ 25- 30% off vasopressive support & sedation 3. ischemic cardiomyopathy LVEF mildly depressed @ 45% on echo pre-op furosemide d/c; now on dialysis for fluid management and JAKE BB as BP tolerates; no RADHA due to JAKE/dialysis 4. acute respiratory failure remains intubated with vent Precedex off - CPAP trial planned for once pt is off dialysis 5. JAKE decreased BUN/Cr after HD started yesterday evening; on HD now also per nephrology 6. sepsis abx per ID temp normalized ~ [address] chest/abd/pelvis yesterday with perihepatic fluid; fluid in the paracolic gutter and anasarca suggested CT chest suggestive of atelectasis or pneumonia Bili level decreasing 7. HLD statin therapy 8. atrial fib atrial flutter yesterday with rates to 140 HR slowed ~ 1800 yesterday; now atrial fib in the 80s 9. small right frontal SDH decreased on CT scan done 08/03/2016 10. metabolic encephalopathy responding to commands today NERY DANGELO SURVEILLANCE SUPERVISOR Aug 04, 2016 11:12
[2016-08-04] MEDS: AMIODARONE HCL 200 MG TABLET. PO SCH ×2 (11:25→22:10)
[2016-08-04] MEDS: ASPIRIN 325 MG TABLET PO SCH (11:25)
[2016-08-04] MEDS: METOPROLOL TART IMMED RELEASE 25 MG TABLET. NG SCH ×2 (11:25→21:00)
[2016-08-04] MEDS: MINERAL OIL/PETROLATUM,WHITE OPHTH OINT 3.5GM TUBE. OU SCH ×2 (11:26→22:11)
[2016-08-04] MEDS: CHLORHEXIDINE 0.12% 15 ML MOUTHWASH. MM SCH ×2 (11:26→22:14)
[2016-08-04] MEDS: FAMOTIDINE 20 MG/2 ML VIAL IVP SCH (11:26)
--- NOTE | 2016-08-04 11:50 | PDOC ---
PROGRESS NOTES Chief Complaint Chief Complaint Chest pain STEMI 1. STEMI: 3-vessel dz by cardiac cath (07/20/16). s/p CABG on 07/25/2016 : FLETCHER to LAD; SVG to LAD; SVG to OM1 and SVG to RPDA. VF arrest after chest closed; reopened and placed back on bypass then converted to LVAD. chest closed yesterday 2. cardiogenic shock 3. PAD 4. Cardiomyopathy: EF 20% 5. Afib: on amiodarone and metoprolol. off dig 6. HTN 7. metabolic encephalopathy with 2, better 08/04 8. HLD: on statin, currently on hold 9. DM: on insulin gtt 10: Nutrition: cautious NG feed today 11. liver shock with 2 12. MILD ICH, no intervention 13. possible septic shock 14. JAKE, with 2,. ATN poor prognosis, cont current meds fu with CT, card, pulm, neurosx on OGT feeding, dvt, gi ppx talked to at bedside, on levaphed and vasopressin since 08/02, BETTER on 08/04keep MAP >65 lasix dced as per CT ON iv abx as per CT, fu ucx, bcx head CT, chest/abd/pelvis CT showed PNA check cdiff HD since 08/03 may need trach, PEG this week CC time 40 min History of Present Illness History of Present Illness intubated, off sedation 3 days, spontaneously open eyes, mental better 08/04, open eyes, follow commands by squeezing hands tachycardia, afib, on dobutamine still low bp , on levaphod and vaso since 08/02, only on low dose vaso 08/04 on OGT feeding EF 20% Head CT 08/01 showed mild ICH higher WBC fever, hypotension 08/02 diarrhea higher Cr Vitals Vitals Vital Signs Date Time Temp Pulse Resp B/P Pulse Ox O2 Delivery O2 Flow Rate FiO2 08/04/16 11:25 85 110/55 08/04/16 11:00 30 98 Ventilator 08/04/16 08:00 97.5 97.5 Physical Exam Physical Exam GENERAL: Intubated, 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 HEENT: Pupils reactive, scleral icterus improving NECK: Supple LUNGS: Clear HEART: S1S2 CHEST: sternotomy: D/C/I ABD: Soft, NT EXT: edema improved, warm well perfused, pedal pulses palpable [employer]: Intubated,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, extremities flaccid SKIN: No rash IV: ok General: Other (sedated, intubated, moving head) Heart: Other (tachy, irregular) Lungs: Other (decrease bs) Abdomen: Soft, Other (distended) Extremities: No edema, Other (+ edema x4) Skin: No rashes Labs LABS Laboratory Tests Test 08/03/16 15:55 08/03/16 16:00 08/03/16 17:00 08/03/16 17:08 Urine Collection Type Unknown Urine Color Keke Urine Clarity Turbid Urine pH 5.0 Urine Specific Jackson 1.020 Urine Protein 100mg/dL (NEG-TRACE) Urine Glucose (UA) Negativemg/dL (NEG) Urine Ketones (Stick) Negativemg/dL (NEG) Urine Blood Moderate (NEG) Urine Nitrite Negative (NEG) Urine Bilirubin Small (NEG) Urine Urobilinogen Dipstick 1.0mg/dL (0.2 mg/dL) Urine Leukocyte Esterase Negative (NEG) Urine RBC 6-10/HPF (0-2) Urine WBC 0/HPF (0-4) Urine Squamous Epithelial Cells Occ/LPF Urine Amorphous Sediment Present/HPF Urine Bacteria 0/HPF (0-FEW) Urine Hyaline Casts Few/HPF Urine Granular Casts Few/HPF Urine Mucus Slight/LPF White Blood Count 11.2x10^3/uL (4.0-11.0) Red Blood Count 2.69x10^6/uL (4.30-5.70) Hemoglobin 8.6g/dL (13.0-17.5) Hematocrit 26.5% (39.0-53.0) Mean Corpuscular Volume 99fL (79-100) Mean Corpuscular Hemoglobin 32pg (25-35) Mean Corpuscular Hemoglobin Concent 33g/dL (31-37) Red Cell Distribution Width 16.3% (11.5-14.5) Platelet Count 82x10^3/uL (140-400) Neutrophils (%) (Auto) 91% (31-73) Lymphocytes (%) (Auto) 5% (24-48) Monocytes (%) (Auto) 4% (0-9) Eosinophils (%) (Auto) 0% (0-3) Basophils (%) (Auto) 0% (0-3) Neutrophils # (Auto) 10.1x10^3uL (1.8-7.7) Lymphocytes # (Auto) 0.6x10^3/uL (1.0-4.8) Monocytes # (Auto) 0.4x10^3/uL (0.0-1.1) Eosinophils # (Auto) 0.0x10^3/uL (0.0-0.7) Basophils # (Auto) 0.0x10^3/uL (0.0-0.2) Segmented Neutrophils % 75% (35-66) Band Neutrophils % 16% (0-9) Lymphocytes % 7% (24-48) Monocytes % 2% (0-10) Nucleated Red Blood Cells 4 Toxic Granulation Slight Dohle Bodies Present Platelet Estimate Decreased (ADEQUATE) Polychromasia Present Poikilocytosis Slight Basophilic Stippling Present Anisocytosis Slight Sodium Level 152mmol/L (136-145) Potassium Level 5.3mmol/L (3.5-5.1) Chloride Level 113mmol/L (98-107) Carbon Dioxide Level 25mmol/L (21-32) Anion Gap 14 (6-14) Blood Urea Nitrogen 95mg/dL (8-26) Creatinine 3.6mg/dL (0.7-1.3) Estimated GFR (Cockcroft-Gault) 17.6 Glucose Level 184mg/dL (70-99) Calcium Level 7.1mg/dL (8.5-10.1) Procalcitonin 44.51ng/mL (0.00-0.10) Digoxin Level 1.9ng/mL (0.9-2.0) Digoxin Last Dose Date 08/02/16 Digoxin Last Dose Time 0856 Prothrombin Time 17.4SEC (11.7-14.0) Prothromb Time International Ratio 1.5 (0.8-1.1) Activated Partial Thromboplast Time 44SEC (24-38) Glucose (Fingerstick) 165mg/dL (70-99) Test 08/04/16 07:00 08/04/16 08:00 08/04/16 11:21 White Blood Count 6.6x10^3/uL (4.0-11.0) Red Blood Count 2.51x10^6/uL (4.30-5.70) Hemoglobin 8.0g/dL (13.0-17.5) Hematocrit 23.9% (39.0-53.0) Mean Corpuscular Volume 95fL (79-100) Mean Corpuscular Hemoglobin 32pg (25-35) Mean Corpuscular Hemoglobin Concent 34g/dL (31-37) Red Cell Distribution Width 16.2% (11.5-14.5) Platelet Count 68x10^3/uL (140-400) Neutrophils (%) (Auto) 88% (31-73) Lymphocytes (%) (Auto) 8% (24-48) Monocytes (%) (Auto) 4% (0-9) Eosinophils (%) (Auto) 1% (0-3) Basophils (%) (Auto) 0% (0-3) Neutrophils # (Auto) 5.8x10^3uL (1.8-7.7) Lymphocytes # (Auto) 0.5x10^3/uL (1.0-4.8) Monocytes # (Auto) 0.2x10^3/uL (0.0-1.1) Eosinophils # (Auto) 0.1x10^3/uL (0.0-0.7) Basophils # (Auto) 0.0x10^3/uL (0.0-0.2) Sodium Level 144mmol/L (136-145) Potassium Level 3.5mmol/L (3.5-5.1) Chloride Level 103mmol/L (98-107) Carbon Dioxide Level 30mmol/L (21-32) Anion Gap 11 (6-14) Blood Urea Nitrogen 69mg/dL (8-26) Creatinine 3.1mg/dL (0.7-1.3) Estimated GFR (Cockcroft-Gault) 20.9 BUN/Creatinine Ratio 22 (6-20) Glucose Level 186mg/dL (70-99) Calcium Level 7.2mg/dL (8.5-10.1) Phosphorus Level 7.0mg/dL (2.6-4.7) Magnesium Level 2.2mg/dL (1.8-2.4) Total Bilirubin 4.8mg/dL (0.2-1.0) Aspartate Amino Transf (AST/SGOT) 49U/L (15-37) Alanine Aminotransferase (ALT/SGPT) 96U/L (16-63) Alkaline Phosphatase 69U/L (46-116) Total Protein 4.8g/dL (6.4-8.2) Albumin 2.0g/dL (3.4-5.0) Albumin/Globulin Ratio 0.7 (1.0-1.7) O2 Saturation 94% (92-99) Arterial Blood pH 7.51 (7.35-7.45) Arterial Blood pCO2 at Patient Temp 34mmHg (35-46) Arterial Blood pO2 at Patient Temp 77mmHg (75-108) Arterial Blood HCO3 26mmol/L (21-28) Arterial Blood Base Excess 3mmol/L (-3-3) FiO2 40 Glucose (Fingerstick) 115mg/dL (70-99) Review of Systems Review of Systems no fever, chills, Assessment and Plan Assessmemt and Plan Problems Medical Problems: (1) CAD (coronary artery disease), [place] coronary artery Status: Acute (2) Chest pain Status: Acute (3) STEMI (ST elevation myocardial infarction) Status: Acute Problems: Comment Review of Relevant I have reviewed the following items leonidas (where applicable) has been applied. Labs Laboratory Tests Test 08/03/16 07:30 08/03/16 07:50 08/03/16 15:55 08/03/16 16:00 White Blood Count 11.9x10^3/uL (4.0-11.0) 11.2x10^3/uL (4.0-11.0) Red Blood Count 2.32x10^6/uL (4.30-5.70) 2.69x10^6/uL (4.30-5.70) Hemoglobin 7.5g/dL (13.0-17.5) 8.6g/dL (13.0-17.5) Hematocrit 23.0% (39.0-53.0) 26.5% (39.0-53.0) Mean Corpuscular Volume 99fL (79-100) 99fL (79-100) Mean Corpuscular Hemoglobin 32pg (25-35) 32pg (25-35) Mean Corpuscular Hemoglobin Concent 33g/dL (31-37) 33g/dL (31-37) Red Cell Distribution Width 17.7% (11.5-14.5) 16.3% (11.5-14.5) Platelet Count 90x10^3/uL (140-400) 82x10^3/uL (140-400) Neutrophils (%) (Auto) 89% (31-73) 91% (31-73) Lymphocytes (%) (Auto) 7% (24-48) 5% (24-48) Monocytes (%) (Auto) 4% (0-9) 4% (0-9) Eosinophils (%) (Auto) 0% (0-3) 0% (0-3) Basophils (%) (Auto) 0% (0-3) 0% (0-3) Neutrophils # (Auto) 10.6x10^3uL (1.8-7.7) 10.1x10^3uL (1.8-7.7) Lymphocytes # (Auto) 0.8x10^3/uL (1.0-4.8) 0.6x10^3/uL (1.0-4.8) Monocytes # (Auto) 0.5x10^3/uL (0.0-1.1) 0.4x10^3/uL (0.0-1.1) Eosinophils # (Auto) 0.0x10^3/uL (0.0-0.7) 0.0x10^3/uL (0.0-0.7) Basophils # (Auto) 0.0x10^3/uL (0.0-0.2) 0.0x10^3/uL (0.0-0.2) Sodium Level 149mmol/L (136-145) 152mmol/L (136-145) Potassium Level 5.3mmol/L (3.5-5.1) 5.3mmol/L (3.5-5.1) Chloride Level 112mmol/L (98-107) 113mmol/L (98-107) Carbon Dioxide Level 25mmol/L (21-32) 25mmol/L (21-32) Anion Gap 12 (6-14) 14 (6-14) Blood Urea Nitrogen 82mg/dL (8-26) 95mg/dL (8-26) Creatinine 3.1mg/dL (0.7-1.3) 3.6mg/dL (0.7-1.3) Estimated GFR (Cockcroft-Gault) 20.9 17.6 BUN/Creatinine Ratio 26 (6-20) Glucose Level 174mg/dL (70-99) 184mg/dL (70-99) Uric Acid 6.1mg/dL (3.5-7.2) Calcium Level 6.3mg/dL (8.5-10.1) 7.1mg/dL (8.5-10.1) Phosphorus Level 8.3mg/dL (2.6-4.7) Magnesium Level 2.7mg/dL (1.8-2.4) Total Bilirubin 7.1mg/dL (0.2-1.0) Aspartate Amino Transf (AST/SGOT) 50U/L (15-37) Alanine Aminotransferase (ALT/SGPT) 127U/L (16-63) Alkaline Phosphatase 83U/L (46-116) Creatine Kinase 158U/L (39-308) Total Protein 5.2g/dL (6.4-8.2) Albumin 2.2g/dL (3.4-5.0) Albumin/Globulin Ratio 0.7 (1.0-1.7) O2 Saturation 95% (92-99) Arterial Blood pH 7.30 (7.35-7.45) Arterial Blood pCO2 at Patient Temp 40mmHg (35-46) Arterial Blood pO2 at Patient Temp 85mmHg (75-108) Arterial Blood HCO3 19mmol/L (21-28) Arterial Blood Base Excess -7mmol/L (-3-3) FiO2 50 Urine Collection Type Unknown Urine Color Keke Urine Clarity Turbid Urine pH 5.0 Urine Specific Jackson 1.020 Urine Protein 100mg/dL (NEG-TRACE) Urine Glucose (UA) Negativemg/dL (NEG) Urine Ketones (Stick) Negativemg/dL (NEG) Urine Blood Moderate (NEG) Urine Nitrite Negative (NEG) Urine Bilirubin Small (NEG) Urine Urobilinogen Dipstick 1.0mg/dL (0.2 mg/dL) Urine Leukocyte Esterase Negative (NEG) Urine RBC 6-10/HPF (0-2) Urine WBC 0/HPF (0-4) Urine Squamous Epithelial Cells Occ/LPF Urine Amorphous Sediment Present/HPF Urine Bacteria 0/HPF (0-FEW) Urine Hyaline Casts Few/HPF Urine Granular Casts Few/HPF Urine Mucus Slight/LPF Segmented Neutrophils % 75% (35-66) Band Neutrophils % 16% (0-9) Lymphocytes % 7% (24-48) Monocytes % 2% (0-10) Nucleated Red Blood Cells 4 Toxic Granulation Slight Dohle Bodies Present Platelet Estimate Decreased (ADEQUATE) Polychromasia Present Poikilocytosis Slight Basophilic Stippling Present Anisocytosis Slight Procalcitonin 44.51ng/mL (0.00-0.10) Digoxin Level 1.9ng/mL (0.9-2.0) Digoxin Last Dose Date 08/02/16 Digoxin Last Dose Time 0856 Test 08/03/16 17:00 08/03/16 17:08 08/04/16 07:00 08/04/16 08:00 Prothrombin Time 17.4SEC (11.7-14.0) Prothromb Time International Ratio 1.5 (0.8-1.1) Activated Partial Thromboplast Time 44SEC (24-38) Glucose (Fingerstick) 165mg/dL (70-99) White Blood Count 6.6x10^3/uL (4.0-11.0) Red Blood Count 2.51x10^6/uL (4.30-5.70) Hemoglobin 8.0g/dL (13.0-17.5) Hematocrit 23.9% (39.0-53.0) Mean Corpuscular Volume 95fL (79-100) Mean Corpuscular Hemoglobin 32pg (25-35) Mean Corpuscular Hemoglobin Concent 34g/dL (31-37) Red Cell Distribution Width 16.2% (11.5-14.5) Platelet Count 68x10^3/uL (140-400) Neutrophils (%) (Auto) 88% (31-73) Lymphocytes (%) (Auto) 8% (24-48) Monocytes (%) (Auto) 4% (0-9) Eosinophils (%) (Auto) 1% (0-3) Basophils (%) (Auto) 0% (0-3) Neutrophils # (Auto) 5.8x10^3uL (1.8-7.7) Lymphocytes # (Auto) 0.5x10^3/uL (1.0-4.8) Monocytes # (Auto) 0.2x10^3/uL (0.0-1.1) Eosinophils # (Auto) 0.1x10^3/uL (0.0-0.7) Basophils # (Auto) 0.0x10^3/uL (0.0-0.2) Sodium Level 144mmol/L (136-145) Potassium Level 3.5mmol/L (3.5-5.1) Chloride Level 103mmol/L (98-107) Carbon Dioxide Level 30mmol/L (21-32) Anion Gap 11 (6-14) Blood Urea Nitrogen 69mg/dL (8-26) Creatinine 3.1mg/dL (0.7-1.3) Estimated GFR (Cockcroft-Gault) 20.9 BUN/Creatinine Ratio 22 (6-20) Glucose Level 186mg/dL (70-99) Calcium Level 7.2mg/dL (8.5-10.1) Phosphorus Level 7.0mg/dL (2.6-4.7) Magnesium Level 2.2mg/dL (1.8-2.4) Total Bilirubin 4.8mg/dL (0.2-1.0) Aspartate Amino Transf (AST/SGOT) 49U/L (15-37) Alanine Aminotransferase (ALT/SGPT) 96U/L (16-63) Alkaline Phosphatase 69U/L (46-116) Total Protein 4.8g/dL (6.4-8.2) Albumin 2.0g/dL (3.4-5.0) Albumin/Globulin Ratio 0.7 (1.0-1.7) O2 Saturation 94% (92-99) Arterial Blood pH 7.51 (7.35-7.45) Arterial Blood pCO2 at Patient Temp 34mmHg (35-46) Arterial Blood pO2 at Patient Temp 77mmHg (75-108) Arterial Blood HCO3 26mmol/L (21-28) Arterial Blood Base Excess 3mmol/L (-3-3) FiO2 40 Test 08/04/16 11:21 Glucose (Fingerstick) 115mg/dL (70-99) Laboratory Tests Test 08/03/16 15:55 08/03/16 16:00 08/03/16 17:00 08/03/16 17:08 Urine Collection Type Unknown Urine Color Keke Urine Clarity Turbid Urine pH 5.0 Urine Specific Jackson 1.020 Urine Protein 100mg/dL (NEG-TRACE) Urine Glucose (UA) Negativemg/dL (NEG) Urine Ketones (Stick) Negativemg/dL (NEG) Urine Blood Moderate (NEG) Urine Nitrite Negative (NEG) Urine Bilirubin Small (NEG) Urine Urobilinogen Dipstick 1.0mg/dL (0.2 mg/dL) Urine Leukocyte Esterase Negative (NEG) Urine RBC 6-10/HPF (0-2) Urine WBC 0/HPF (0-4) Urine Squamous Epithelial Cells Occ/LPF Urine Amorphous Sediment Present/HPF Urine Bacteria 0/HPF (0-FEW) Urine Hyaline Casts Few/HPF Urine Granular Casts Few/HPF Urine Mucus Slight/LPF White Blood Count 11.2x10^3/uL (4.0-11.0) Red Blood Count 2.69x10^6/uL (4.30-5.70) Hemoglobin 8.6g/dL (13.0-17.5) Hematocrit 26.5% (39.0-53.0) Mean Corpuscular Volume 99fL (79-100) Mean Corpuscular Hemoglobin 32pg (25-35) Mean Corpuscular Hemoglobin Concent 33g/dL (31-37) Red Cell Distribution Width 16.3% (11.5-14.5) Platelet Count 82x10^3/uL (140-400) Neutrophils (%) (Auto) 91% (31-73) Lymphocytes (%) (Auto) 5% (24-48) Monocytes (%) (Auto) 4% (0-9) Eosinophils (%) (Auto) 0% (0-3) Basophils (%) (Auto) 0% (0-3) Neutrophils # (Auto) 10.1x10^3uL (1.8-7.7) Lymphocytes # (Auto) 0.6x10^3/uL (1.0-4.8) Monocytes # (Auto) 0.4x10^3/uL (0.0-1.1) Eosinophils # (Auto) 0.0x10^3/uL (0.0-0.7) Basophils # (Auto) 0.0x10^3/uL (0.0-0.2) Segmented Neutrophils % 75% (35-66) Band Neutrophils % 16% (0-9) Lymphocytes % 7% (24-48) Monocytes % 2% (0-10) Nucleated Red Blood Cells 4 Toxic Granulation Slight Dohle Bodies Present Platelet Estimate Decreased (ADEQUATE) Polychromasia Present Poikilocytosis Slight Basophilic Stippling Present Anisocytosis Slight Sodium Level 152mmol/L (136-145) Potassium Level 5.3mmol/L (3.5-5.1) Chloride Level 113mmol/L (98-107) Carbon Dioxide Level 25mmol/L (21-32) Anion Gap 14 (6-14) Blood Urea Nitrogen 95mg/dL (8-26) Creatinine 3.6mg/dL (0.7-1.3) Estimated GFR (Cockcroft-Gault) 17.6 Glucose Level 184mg/dL (70-99) Calcium Level 7.1mg/dL (8.5-10.1) Procalcitonin 44.51ng/mL (0.00-0.10) Digoxin Level 1.9ng/mL (0.9-2.0) Digoxin Last Dose Date 08/02/16 Digoxin Last Dose Time 0856 Prothrombin Time 17.4SEC (11.7-14.0) Prothromb Time International Ratio 1.5 (0.8-1.1) Activated Partial Thromboplast Time 44SEC (24-38) Glucose (Fingerstick) 165mg/dL (70-99) Test 08/04/16 07:00 08/04/16 08:00 08/04/16 11:21 White Blood Count 6.6x10^3/uL (4.0-11.0) Red Blood Count 2.51x10^6/uL (4.30-5.70) Hemoglobin 8.0g/dL (13.0-17.5) Hematocrit 23.9% (39.0-53.0) Mean Corpuscular Volume 95fL (79-100) Mean Corpuscular Hemoglobin 32pg (25-35) Mean Corpuscular Hemoglobin Concent 34g/dL (31-37) Red Cell Distribution Width 16.2% (11.5-14.5) Platelet Count 68x10^3/uL (140-400) Neutrophils (%) (Auto) 88% (31-73) Lymphocytes (%) (Auto) 8% (24-48) Monocytes (%) (Auto) 4% (0-9) Eosinophils (%) (Auto) 1% (0-3) Basophils (%) (Auto) 0% (0-3) Neutrophils # (Auto) 5.8x10^3uL (1.8-7.7) Lymphocytes # (Auto) 0.5x10^3/uL (1.0-4.8) Monocytes # (Auto) 0.2x10^3/uL (0.0-1.1) Eosinophils # (Auto) 0.1x10^3/uL (0.0-0.7) Basophils # (Auto) 0.0x10^3/uL (0.0-0.2) Sodium Level 144mmol/L (136-145) Potassium Level 3.5mmol/L (3.5-5.1) Chloride Level 103mmol/L (98-107) Carbon Dioxide Level 30mmol/L (21-32) Anion Gap 11 (6-14) Blood Urea Nitrogen 69mg/dL (8-26) Creatinine 3.1mg/dL (0.7-1.3) Estimated GFR (Cockcroft-Gault) 20.9 BUN/Creatinine Ratio 22 (6-20) Glucose Level 186mg/dL (70-99) Calcium Level 7.2mg/dL (8.5-10.1) Phosphorus Level 7.0mg/dL (2.6-4.7) Magnesium Level 2.2mg/dL (1.8-2.4) Total Bilirubin 4.8mg/dL (0.2-1.0) Aspartate Amino Transf (AST/SGOT) 49U/L (15-37) Alanine Aminotransferase (ALT/SGPT) 96U/L (16-63) Alkaline Phosphatase 69U/L (46-116) Total Protein 4.8g/dL (6.4-8.2) Albumin 2.0g/dL (3.4-5.0) Albumin/Globulin Ratio 0.7 (1.0-1.7) O2 Saturation 94% (92-99) Arterial Blood pH 7.51 (7.35-7.45) Arterial Blood pCO2 at Patient Temp 34mmHg (35-46) Arterial Blood pO2 at Patient Temp 77mmHg (75-108) Arterial Blood HCO3 26mmol/L (21-28) Arterial Blood Base Excess 3mmol/L (-3-3) FiO2 40 Glucose (Fingerstick) 115mg/dL (70-99) Microbiology 08/02/16 Blood Culture - Preliminary, Resulted NO GROWTH AFTER 1 DAY 07/31/16 Sputum Culture - Final, Complete 07/31/16 Sputum Result 1 - Final, Complete 08/03/16 Gram Stain - Final, Complete Medications Current Medications Nitroglycerin 0.4 mg 0.4 mg PRN Q5MIN PRN SL CP RATING > 1/10; Start 07/20/16 at 09:45; Stop 07/20/16 at 15:05; Status DC Nitroglycerin/ Dextrose (Nitroglycerin Drip) 250 ml @ 3 mls/hr 1X ONCE IV Last administered on 07/20/16 10:02; Start 07/20/16 at 10:30; Stop 07/23/16 at 21: 49; Status DC Morphine Sulfate 2 mg PRN Q15MIN PRN IV/SQ PAIN GREATER THAN 3/10; Start at 09:45; Stop 07/21/16 at 09:44; Status DC Ondansetron HCl (Zofran) 4 mg PRN Q8HRS PRN IV NAUSEA/VOMITING; Start 07/20/16 at 12:30; Stop 07/20/16 at 13:36; Status DC Morphine Sulfate 2 mg 2 mg PRN Q2HR PRN IV PAIN; Start 07/20/16 at 12:30; Stop 07/21/16 at 12:29; Status DC Heparin Sodium/ Dextrose 500 ml @ 0 mls/hr CONT PRN IV . Last administered on 10:32; Start 07/20/16 at 13:00; Stop 07/21/16 at 14:50; Status DC Metoprolol Tartrate (Lopressor) 5 mg Q6HRS IVP ; Start 07/20/16 at 13:00; Stop at 14:53; Status DC Aspirin (Ecotrin) 325 mg [id number] PO Last administered on 07/21/16 08:11; Start 07/20/16 at 13:00; Stop 07/21/16 at 17:20; Status DC Ondansetron HCl (Zofran) 4 mg PRN Q6HRS PRN IV NAUSEA/VOMITING; Start 07/20/16 at 13:35; Stop 07/26/16 at 11:41; Status DC Acetaminophen (Tylenol) 500 mg PRN Q6HRS PRN PO MILD PAIN / TEMP Last administered on 07/29/16 09:55; Start 07/20/16 at 13:45; Stop 07/29/16 at 13:38 ; Status DC Docusate Sodium (Colace) 100 mg DAILY PO Last administered on 07/29/16 09:54; Start 07/20/16 at 15:00; Stop 07/29/16 at 10:03; Status DC Iohexol 100 ml 100 ml STK-MED ONCE .ROUTE ; Start 07/20/16 at 12:40; Stop at 13:44; Status DC Heparin Sodium/ Sodium Chloride 1,000 ml @ As Directed STK-MED ONCE .ROUTE ; Start 07/20/16 at 12:41; Stop 07/20/16 at 13:44; Status DC Lidocaine HCl 20 ml STK-MED ONCE .ROUTE ; Start 07/20/16 at 12:41; Stop 07/20/16 at 13:44; Status DC Fentanyl Citrate (Fentanyl 2ml Vial) 100 mcg STK-MED ONCE .ROUTE ; Start at 13:42; Stop 07/20/16 at 13:45; Status DC Midazolam HCl (Versed) 2 mg STK-MED ONCE .ROUTE ; Start 07/20/16 at 13:42; Stop 07/20/16 at 13:45; Status DC Heparin Sodium/ Sodium Chloride 1,000 unit 1X ONCE IART Last administered on 14:29; Start 07/20/16 at 14:00; Stop 07/20/16 at 14:01; Status DC Heparin Sodium/ Sodium Chloride 1,000 unit 1X ONCE IART Last administered on 14:29; Start 07/20/16 at 14:00; Stop 07/20/16 at 14:01; Status DC Midazolam HCl (Versed) 2 mg 1X ONCE IV Last administered on 07/20/16 14:28; Start 07/20/16 at 14:00; Stop 07/20/16 at 14:01; Status DC Fentanyl Citrate (Fentanyl 2ml Vial) 100 mcg 1X ONCE IV Last administered on 14:28; Start 07/20/16 at 14:00; Stop 07/20/16 at 14:01; Status DC Iohexol (Omnipaque 300 Mg/ml) 100 ml 1X ONCE IART Last administered on 14:29; Start 07/20/16 at 14:00; Stop 07/20/16 at 14:01; Status DC Lidocaine HCl 20 ml 1X ONCE IJ Last administered on 07/20/16 14:29; Start 07/20 at 14:00; Stop 07/20/16 at 14:01; Status DC Midazolam HCl (Versed) 2 mg STK-MED ONCE .ROUTE ; Start 07/20/16 at 14:15; Stop 07/20/16 at 14:16; Status DC Sodium Chloride 3 ml 3 ml QSHIFT PRN IV AFTER MEDS AND BLOOD DRAWS; Start at 14:45; Stop 07/29/16 at 13:51; Status DC Sodium Chloride (Iv Sodium Chloride 0.9% 1000ml Bag) 1,000 ml @ 60 mls/hr [id number] IV Last administered on 07/20/16 14:44; Start 07/20/16 at 14:44; Stop at 00:43; Status DC Metoprolol Tartrate (Lopressor) 12.5 mg BID PO ; Start 07/20/16 at 21:00; Stop at 21:00; Status DC Lisinopril (Prinivil) 5 mg DAILY PO Last administered on 07/20/16 16:25; Start 07/20/16 at 15:00; Stop 07/20/16 at 17:21; Status DC Atorvastatin Calcium (Lipitor) 20 mg QHS PO Last administered on 07/20/16 20:33 ; Start 07/20/16 at 21:00; Stop 07/21/16 at 08:11; Status DC Nitroglycerin (Nitrostat) 0.4 mg PRN Q5MIN PRN SL CHEST PAIN Last administered on 07/25/16 04:55; Start 07/20/16 at 14:45; Stop 07/26/16 at 11:41; Status DC Hydralazine HCl (Apresoline) 10 mg PRN Q4HRS PRN IVP ELEVATED BP, SEE COMMENTS Last administered on 07/31/16 10:58; Start 07/20/16 at 17:15; Stop 07/31/16 at 13:31; Status DC Metoprolol Tartrate (Lopressor) 50 mg BID PO Last administered on 07/22/16 08: 31; Start 07/20/16 at 21:00; Stop 07/22/16 at 19:03; Status DC Alprazolam (Xanax) 0.25 mg PRN Q8HRS PRN PO ANXIETY / AGITATION Last administered on 07/24/16 21:34; Start 07/20/16 at 17:30; Stop 07/29/16 at 13:38; Status DC Heparin Sodium (Porcine) 2050 unit 2,050 unit PRN Q6HRS PRN IV FOR UFH LEVEL LESS THAN 0.2 Last administered on 07/21/16 04:24; Start 07/20/16 at 19:45; Stop 07/26/16 at 08:55; Status DC Heparin Sodium/ Dextrose 500 ml @ 19.4 mls/hr CONT PRN IV SEE I/O RECORD; Start 07/20/16 at 19:45; Stop 07/21/16 at 16:24; Status DC Heparin Sodium (Porcine) (Heparin Sodium) 2,050 unit PRN Q6HRS PRN IV FOR UFH LEVEL LESS THAN 0.2; Start 07/20/16 at 19:45; Status UNV Atorvastatin Calcium (Lipitor) 40 mg QHS PO Last administered on 08/03/16 21: 53; Start 07/21/16 at 21:00 Iodixanol (Visipaque 320) 200 ml STK-MED ONCE .ROUTE ; Start 07/20/16 at 14:00; Stop 07/21/16 at 08:26; Status DC Zolpidem Tartrate (Ambien) 5 mg PRN QHS PRN PO INSOMNIA, MAY REPEAT IN 1HR; Start 07/21/16 at 15:30; Stop 07/29/16 at 13:38; Status DC Metoprolol Tartrate 25 mg 25 mg 1X ONCE PO ; Start 07/22/16 at 06:00; Stop at 06:02; Status DC Cefazolin Sodium/ Dextrose 50 ml @ 100 mls/hr 1X ONCE IV ; Start 07/22/16 at 06 :00; Stop 07/22/16 at 06:29; Status DC Heparin Sodium/ Dextrose 500 ml @ 0 mls/hr CONT PRN IV SEE I/O RECORD Last administered on 07/24/16t 01:40; Start 07/21/16 at 16:30; Stop 07/26/16 at 08:55; Status DC Lidocaine HCl 2 ml 2 ml 1X PRN PRN ID IV START; Start 07/25/16 at 06:00; Stop 07/26/16 at 05:59; Status Cancel Lactated Ringer's (Iv Lactated Ringers) 1,000 ml @ 0 mls/hr Q0M IV Last administered on 07/25/16 07:30; Start 07/25/16 at 06:00; Stop 07/25/16 at 17:59 ; Status DC Fentanyl Citrate (Fentanyl 2ml Vial) 25 mcg PRN Q5MIN PRN IV Acute Pain; Start 07/22/16 at 09:15; Stop 07/23/16 at 09:14; Status DC Morphine Sulfate 2 mg PRN Q10MIN PRN IV Mild Pain; Start 07/22/16 at 09:15; Stop 07/23/16 at 09:14; Status DC Hydromorphone HCl (Dilaudid) 0.4 mg PRN Q10MIN PRN IV Moderate to severe pain; Start 07/22/16 at 09:15; Stop 07/23/16 at 09:14; Status DC Ondansetron HCl (Zofran) 4 mg PRN Q6HRS PRN IV Nausea, 1st Choice; Start at 09:15; Stop 07/23/16 at 09:14; Status DC Prochlorperazine Edisylate (Compazine) 5 mg PRN Q6HRS PRN IV Nausea/Vomiting, 2nd Choice; Start 07/22/16 at 09:15; Stop 07/23/16 at 09:14; Status DC Ondansetron HCl (Zofran) 4 mg PRN Q6HRS PRN IV NAUSEA/VOMITING; Start 07/25/16 at 07:00; Stop 07/26/16 at 06:59; Status DC Fentanyl Citrate (Fentanyl 2ml Vial) 25 mcg PRN Q5MIN PRN IV MILD PAIN; Start 07/25/16 at 07:00; Stop 07/26/16 at 06:59; Status DC Fentanyl Citrate (Fentanyl 2ml Vial) 50 mcg PRN Q5MIN PRN IV MODERATE PAIN; Start 07/25/16 at 07:00; Stop 07/26/16 at 06:59; Status DC Morphine Sulfate 1 mg 1 mg PRN Q10MIN PRN IV SEVERE PAIN; Start 07/25/16 at 07: 00; Stop 07/25/16 at 20:28; Status DC Lactated Ringer's (Iv Lactated Ringers) 1,000 ml @ 0 mls/hr Q0M IV ; Start 01/31 at 07:00; Stop 07/25/16 at 18:59; Status Cancel Lidocaine HCl 2 ml PRN 1X PRN ID PRIOR TO IV START Last administered on 07:16; Start 07/25/16 at 07:00; Stop 07/26/16 at 06:59; Status DC Hydromorphone HCl (Dilaudid) 0.5 mg PRN Q10MIN PRN IV SEV PAIN, Second choice; Start 07/25/16 at 07:00; Stop 07/26/16 at 06:59; Status DC Prochlorperazine Edisylate 5 mg 5 mg PACU PRN PRN IV NAUSEA, MRX1; Start at 07:00; Stop 07/26/16 at 06:59; Status DC Cefazolin Sodium/ Dextrose (Ancef 2gm Premix) 50 ml @ 100 mls/hr 1X ONCE IV Last administered on 07/25/16 08:12; Start 07/25/16 at 06:00; Stop 07/25/16 at 06:29; Status DC Metoprolol Tartrate (Lopressor) 25 mg 1X ONCE PO ; Start 07/25/16 at 06:00; Stop 07/25/16 at 06:00; Status DC Metoprolol Tartrate (Lopressor) 2.5 mg 1X ONCE IVP Last administered on 16:30; Start 07/22/16 at 16:30; Stop 07/22/16 at 16:31; Status DC Digoxin (Lanoxin) 250 mcg 1X ONCE IV ; Start 07/22/16 at 18:30; Stop 07/22/16 at 18:42; Status DC Digoxin (Lanoxin) 500 mcg 1X ONCE IV Last administered on 07/22/16 18:47; Start 07/22/16 at 18:45; Stop 07/22/16 at 18:46; Status DC Metoprolol Tartrate (Lopressor) 75 mg BID PO Last administered on 07/24/16 21: 30; Start 07/22/16 at 21:00; Stop 07/25/16 at 13:12; Status DC Nitroglycerin 0.4 mg 0.4 mg PRN Q5MIN PRN SL CHEST PAIN; Start 07/23/16 at 12:00 ; Status UNV Heparin Sodium (Porcine) 28772 unit/Lactated Ringer's 1,020 ml @ 1,020 mls/hr 1X PERIOP ONCE IRR Last administered on 07/25/16 08:46; Start 07/25/16 at 06: 00; Stop 07/25/16 at 06:59; Status DC Potassium Chloride 70 meq/ Sodium Bicarbonate 12.5 meq/Lidocaine HCl 24 ml/ Parenteral Electrolytes 571.5 ml @ 571.5 mls/ hr 1X PERIOP ONCE IRR ; Start at 06:00; Stop 07/25/16 at 06:59; Status DC Potassium Chloride/Sodium Bicarbonate/ Parenteral Electrolytes (Isolyte S) 520 ml @ 520 mls/hr 1X PERIOP ONCE IRR ; Start 07/25/16 at 06:00; Stop 07/25/16 at 06:59; Status DC Etomidate (Amidate) 20 mg STK-MED ONCE IV ; Start 07/25/16 at 06:08; Stop at 06:09; Status DC Phenylephrine HCl (-Synephrine Inj) 10 mg STK-MED ONCE .ROUTE ; Start at 06:08; Stop 07/25/16 at 06:09; Status DC Aminocaproic Acid (Amicar) 5,000 mg STK-MED ONCE IV ; Start 07/25/16 at 06:08; Stop 07/25/16 at 06:09; Status DC Heparin Sodium (Porcine) (Heparin Sodium) 10,000 unit STK-MED ONCE .ROUTE ; Start 07/25/16 at 06:10; Stop 07/25/16 at 06:11; Status DC Rocuronium [place] (Zemuron) 100 mg STK-MED ONCE .ROUTE ; Start 07/25/16 at 06: 11; Stop 07/25/16 at 06:12; Status DC Morphine Sulfate 4 mg STK-MED ONCE .ROUTE ; Start 07/25/16 at 06:59; Stop at 07:00; Status DC Morphine Sulfate 4 mg 4 mg 1X ONCE IV ; Start 07/25/16 at 07:15; Stop 07/25/16 at 07:16; Status DC Cefazolin Sodium/ Sodium Chloride (Ancef/Iv Sodium Chloride 0.9% 500ml Bag) 500 ml @ 500 mls/hr 1X PERIOP ONCE IRR Last administered on 07/25/16 08:46; Start 07/25/16 at 07:15; Stop 07/25/16 at 08:14; Status DC Cellulose 1 each STK-MED ONCE .ROUTE Last administered on 07/25/16 08:46; Start 07/25/16 at 07:07; Stop 07/25/16 at 07:08; Status DC Vancomycin HCl (Vanco) 10 gm STK-MED ONCE .ROUTE Last administered on 08:46; Start 07/25/16 at 07:07; Stop 07/25/16 at 07:08; Status DC Papaverine HCl 60 mg STK-MED ONCE .ROUTE Last administered on 07/25/16 08:46; Start 07/25/16 at 07:07; Stop 07/25/16 at 07:08; Status DC Aspirin (Aspirin) 300 mg STK-MED ONCE .ROUTE Last administered on 07/25/16 17: 25; Start 07/25/16 at 07:08; Stop 07/25/16 at 07:09; Status DC Sodium Chloride (Sodium Chloride) 50 ml STK-MED ONCE IJ Last administered on 08:46; Start 07/25/16 at 07:08; Stop 07/25/16 at 07:09; Status DC Midazolam HCl (Versed) 2 mg STK-MED ONCE .ROUTE ; Start 07/25/16 at 07:15; Stop 07/25/16 at 07:16; Status DC Ephedrine Sulfate 50 mg 50 mg STK-MED ONCE IV ; Start 07/25/16 at 07:16; Stop at 07:17; Status DC Nitroglycerin/ Dextrose (Nitroglycerin Drip) 250 ml @ As Directed STK-MED ONCE IV ; Start 07/25/16 at 07:16; Stop 07/25/16 at 07:17; Status DC Midazolam HCl (Versed) 2 mg STK-MED ONCE .ROUTE ; Start 07/25/16 at 07:18; Stop 07/25/16 at 07:19; Status DC Fentanyl Citrate (Fentanyl 2ml Vial) 100 mcg STK-MED ONCE .ROUTE ; Start at 07:19; Stop 07/25/16 at 07:20; Status DC Sufentanil Citrate (Sufenta) 100 mcg STK-MED ONCE .ROUTE ; Start 07/25/16 at 07: 19; Stop 07/25/16 at 07:20; Status DC Midazolam HCl (Versed) 2 mg 1X ONCE IV ; Start 07/25/16 at 08:00; Stop at 08:01; Status DC Dexamethasone Sodium Phosphate (Decadron) 20 mg STK-MED ONCE .ROUTE ; Start 01/31 at 07:58; Stop 07/25/16 at 07:59; Status DC Rocuronium [place] (Zemuron) 100 mg STK-MED ONCE .ROUTE ; Start 07/25/16 at 08: 52; Stop 07/25/16 at 08:53; Status DC Sufentanil Citrate (Sufenta) 100 mcg STK-MED ONCE .ROUTE ; Start 07/25/16 at 08: 53; Stop 07/25/16 at 08:54; Status DC Protamine Sulfate 250 mg STK-MED ONCE IV ; Start 07/25/16 at 10:43; Stop at 10:44; Status DC Rocuronium [place] 100 mg 100 mg STK-MED ONCE .ROUTE ; Start 07/25/16 at 10:52; Stop 07/25/16 at 10:53; Status DC Albumin Human 0 ml @ As Directed STK-MED ONCE IV ; Start 07/25/16 at 10:53; Stop 07/25/16 at 10:54; Status DC Amiodarone HCl/ Dextrose (Cordarone) 518 ml @ 34.53 mls/ hr 1X ONCE IV Last administered on 07/25/16t 18:52; Start 07/25/16 at 11:30; Stop 07/26/16 at 02:30 ; Status DC Sodium Bicarbonate 50 meq STK-MED ONCE .ROUTE ; Start 07/25/16 at 11:35; Stop at 11:36; Status DC Protamine Sulfate 50 mg STK-MED ONCE IV ; Start 07/25/16 at 12:31; Stop at 12:32; Status DC Amiodarone HCl (Cordarone) 150 mg STK-MED ONCE .ROUTE ; Start 07/25/16 at 12:37 ; Stop 07/25/16 at 12:38; Status DC Isoflurane (Isoflurane) 90 ml STK-MED ONCE IH ; Start 07/25/16 at 12:42; Stop at 12:43; Status DC Lidocaine HCl (Lidocaine HCl 2% Abboject) 100 mg STK-MED ONCE .ROUTE ; Start 01/31 at 13:07; Stop 07/25/16 at 13:08; Status DC Mannitol (Mannitol) 12.5 g STK-MED ONCE .ROUTE ; Start 07/25/16 at 13:07; Stop 07/25/16 at 13:08; Status DC Calcium Chloride 1,000 mg STK-MED ONCE IV ; Start 07/25/16 at 13:07; Stop at 13:08; Status DC Sodium Bicarbonate 50 meq 50 meq STK-MED ONCE .ROUTE ; Start 07/25/16 at 13:07; Stop 07/25/16 at 13:08; Status DC Albumin Human (Albuminar) 100 ml @ As Directed STK-MED ONCE IV ; Start at 13:07; Stop 07/25/16 at 13:08; Status DC Magnesium Sulfate 5 gm STK-MED ONCE .ROUTE ; Start 07/25/16 at 13:08; Stop 07/25 at 13:09; Status DC Heparin Sodium (Porcine) 23774 unit 30,000 unit STK-MED ONCE .ROUTE ; Start 01/31 at 13:08; Stop 07/25/16 at 13:09; Status DC Clevidipine (Cleviprex) 100 ml @ 0 mls/hr CONT PRN IV PER PROTOCOL; Start 07/25 at 13:45; Stop 07/26/16 at 11:29; Status DC Heparin Sodium (Porcine) 61264 unit 30,000 unit STK-MED ONCE .ROUTE ; Start 01/31 at 13:39; Stop 07/25/16 at 13:40; Status DC Epinephrine HCl/ Sodium Chloride (Adrenalin/Iv Sodium Chloride 0.9% 250ml) 254 ml @ 3.81 mls/hr CONT PRN IV SEE I/O RECORD; Start 07/25/16 at 13:45 Epinephrine HCl (Epinephrine Syringe) 1 mg STK-MED ONCE .ROUTE ; Start 07/25/16 at 13:52; Stop 07/25/16 at 13:53; Status DC Rocuronium [place] (Zemuron) 100 mg STK-MED ONCE .ROUTE ; Start 07/25/16 at 13: 57; Stop 07/25/16 at 13:58; Status DC Sodium Bicarbonate 50 meq 50 meq STK-MED ONCE .ROUTE ; Start 07/25/16 at 14:04; Stop 07/25/16 at 14:05; Status DC Procainamide HCl/ Dextrose (Pronestyl) 520 ml @ 15.6 mls/hr CONT PRN IV SEE I/ O RECORD; Start 07/25/16 at 14:30; Stop 07/28/16 at 15:22; Status DC Sodium Bicarbonate 50 meq STK-MED ONCE .ROUTE ; Start 07/25/16 at 14:31; Stop at 14:32; Status DC Sodium Bicarbonate 50 meq STK-MED ONCE .ROUTE ; Start 07/25/16 at 14:31; Stop at 14:32; Status DC Protamine Sulfate 50 mg STK-MED ONCE IV ; Start 07/25/16 at 15:13; Stop at 15:14; Status DC Protamine Sulfate 50 mg STK-MED ONCE IV ; Start 07/25/16 at 15:13; Stop at 15:14; Status DC Isoflurane 90 ml 90 ml STK-MED ONCE IH ; Start 07/25/16 at 15:13; Stop 07/25/16 at 15:14; Status DC Dobutamine HCl/ Dextrose 250 ml @ As Directed STK-MED ONCE IV ; Start 07/25/16 at 15:17; Stop 07/25/16 at 15:18; Status DC Iohexol 100 ml 100 ml STK-MED ONCE .ROUTE Last administered on 07/25/16t 15:39 ; Start 07/25/16 at 15:28; Stop 07/25/16 at 15:29; Status DC Norepinephrine Bitartrate 8 mg/ Sodium Chloride 258 ml @ 1.93 mls/hr 1X ONCE IV Last administered on 07/25/16t 18:53; Start 07/25/16 at 16:00; Stop at 08:04; Status DC Albumin Human (Plasmanate) 1,000 ml @ As Directed STK-MED ONCE IV ; Start 07/25 at 16:11; Stop 07/25/16 at 16:12; Status DC Heparin Sodium (Porcine) (Heparin Sodium) 10,000 unit STK-MED ONCE .ROUTE ; Start 07/25/16 at 16:19; Stop 07/25/16 at 16:20; Status DC Lidocaine HCl (Lidocaine HCl 2% Abboject) 100 mg STK-MED ONCE .ROUTE ; Start 01/31 at 16:19; Stop 07/25/16 at 16:20; Status DC Mannitol (Mannitol) 12.5 g STK-MED ONCE .ROUTE ; Start 07/25/16 at 16:19; Stop 07/25/16 at 16:20; Status DC Calcium Chloride 1,000 mg STK-MED ONCE IV ; Start 07/25/16 at 16:19; Stop at 16:20; Status DC Sodium Bicarbonate 50 meq STK-MED ONCE .ROUTE ; Start 07/25/16 at 16:19; Stop at 16:20; Status DC Magnesium Sulfate 5 gm STK-MED ONCE .ROUTE ; Start 07/25/16 at 16:19; Stop 07/25 at 16:20; Status DC Heparin Sodium (Porcine) (Heparin Sodium) 10,000 unit STK-MED ONCE .ROUTE ; Start 07/25/16 at 16:20; Stop 07/25/16 at 16:21; Status DC Lidocaine HCl (Lidocaine HCl 2% Abboject) 100 mg STK-MED ONCE .ROUTE ; Start 01/31 at 16:20; Stop 07/25/16 at 16:21; Status DC Aminocaproic Acid (Amicar) 5,000 mg STK-MED ONCE IV ; Start 07/25/16 at 16:20; Stop 07/25/16 at 16:21; Status DC Mannitol (Mannitol) 12.5 g STK-MED ONCE .ROUTE ; Start 07/25/16 at 16:20; Stop 07/25/16 at 16:21; Status DC Sodium Bicarbonate 50 meq 50 meq STK-MED ONCE .ROUTE ; Start 07/25/16 at 16:20; Stop 07/25/16 at 16:21; Status DC Albumin Human (Albuminar) 100 ml @ As Directed STK-MED ONCE IV ; Start at 16:20; Stop 07/25/16 at 16:21; Status DC Rocuronium [place] (Zemuron) 50 mg STK-MED ONCE .ROUTE ; Start 07/25/16 at 16:33 ; Stop 07/25/16 at 16:34; Status DC Rocuronium [place] (Zemuron) 50 mg STK-MED ONCE .ROUTE ; Start 07/25/16 at 16:33 ; Stop 07/25/16 at 16:34; Status DC Protamine Sulfate 50 mg STK-MED ONCE IV ; Start 07/25/16 at 16:34; Stop at 16:35; Status DC Sodium Bicarbonate 50 meq STK-MED ONCE .ROUTE ; Start 07/25/16 at 16:36; Stop at 16:37; Status DC Calcium Chloride 1,000 mg STK-MED ONCE IV ; Start 07/25/16 at 16:41; Stop at 16:42; Status DC Epinephrine HCl (Epinephrine Syringe) 1 mg STK-MED ONCE .ROUTE ; Start 07/25/16 at 16:41; Stop 07/25/16 at 16:42; Status DC Sodium Bicarbonate 50 meq STK-MED ONCE .ROUTE ; Start 07/25/16 at 16:52; Stop at 16:53; Status DC Sodium Bicarbonate 50 meq STK-MED ONCE .ROUTE ; Start 07/25/16 at 16:52; Stop at 16:53; Status DC Sodium Bicarbonate 50 meq STK-MED ONCE .ROUTE ; Start 07/25/16 at 16:52; Stop at 16:53; Status DC Vasopressin (Vasostrict) 20 unit STK-MED ONCE .ROUTE ; Start 07/25/16 at 16:54; Stop 07/25/16 at 16:55; Status DC Famotidine (Pepcid) 20 mg STK-MED ONCE .ROUTE ; Start 07/25/16 at 16:56; Stop at 16:57; Status DC Dexamethasone Sodium Phosphate (Decadron) 20 mg STK-MED ONCE .ROUTE ; Start 01/31 at 16:56; Stop 07/25/16 at 16:57; Status DC Diphenhydramine HCl 50 mg 50 mg STK-MED ONCE .ROUTE ; Start 07/25/16 at 16:56; Stop 07/25/16 at 16:57; Status DC Vasopressin/ Dextrose (Vasostrict) 102 ml @ 6 mls/hr CONT PRN IV SEE I/O RECORD Last administered on 08/03/16 18:28; Start 07/25/16 at 17:15 Sodium Bicarbonate 50 meq STK-MED ONCE .ROUTE ; Start 07/25/16 at 17:24; Stop at 17:25; Status DC Sodium Bicarbonate 50 meq 50 meq STK-MED ONCE .ROUTE ; Start 07/25/16 at 17:24; Stop 07/25/16 at 17:25; Status DC Cefazolin Sodium/ Dextrose (Ancef 2gm Premix) 50 ml @ As Directed STK-MED ONCE IV ; Start 07/25/16 at 17:32; Stop 07/25/16 at 17:33; Status DC Sodium Chloride 3 ml 3 ml PRN Q12HR PRN IV AFTER MEDS AND BLOOD DRAWS; Start at 17:30; Stop 07/29/16 at 13:38; Status DC Lactated Ringer's 1,000 ml @ 15 mls/hr Q24H IV Last administered on 07/29/16 16:45; Start 07/25/16 at 17:30; Stop 07/31/16 at 15:33; Status DC Insulin Human Regular/Sodium Chloride (Novolin R Vial/ Iv Normal Saline 150ml) 151.5 ml @ 0 mls/hr CONT PRN PRN IV SEE I/O RECORD Last administered on 03:03; Start 07/25/16 at 17:30; Stop 07/29/16 at 13:51; Status DC Dextrose 25 gm 25 gm PRN Q15MIN PRN IV LOW BLOOD SUGAR; Start 07/25/16 at 17:30 ; Stop 07/29/16 at 13:51; Status DC Dopamine HCl/ Dextrose 250 ml @ 0 mls/hr CONT PRN PRN IV SEE I/O RECORD; Start 07/25/16 at 17:30; Stop 07/26/16 at 11:41; Status DC Amiodarone HCl/ Dextrose (Cordarone) 518 ml @ 33.33 mls/ hr CONT PRN PRN IV SEE COMMENTS; Start 07/25/16 at 17:30; Status UNV Info 1 ea CONT PRN PRN MC SEE COMMENTS; Start 07/25/16 at 17:30; Stop 08/03/16 at 12:57; Status DC Info 1 ea 1 ea CONT PRN PRN MC SEE COMMENTS; Start 07/25/16 at 17:30 Magnesium Sulfate/ Dextrose (Magnesium Sulfate PREMIX 1GM) 100 ml @ 100 mls/hr PRN DAILY PRN IV FOR MAG < 2.2 Last administered on 07/27/16 10:59; Start 01/31 at 17:30 Famotidine (Pepcid) 20 mg BID IVP Last administered on 08/03/16 09:15; Start 07/25/16 at 21:00; Stop 08/03/16 at 15:28; Status DC Metoclopramide HCl (Reglan) 10 mg PRN Q6HRS PRN IV NAUSEA/VOMITING Last administered on 07/29/16 09:54; Start 07/25/16 at 17:30 Morphine Sulfate 2 mg PRN Q1HR PRN IV PAIN Last administered on 07/28/16 14:21 ; Start 07/25/16 at 17:30; Stop 07/29/16 at 13:38; Status DC Acetaminophen (Tylenol) 650 mg PRN Q4HRS PRN PO MILD PAIN / TEMP; Start at 17:30; Stop 07/29/16 at 13:38; Status DC Acetaminophen (Acetaminophen Supp) 650 mg PRN Q4HRS PRN VT MILD PAIN / TEMP Last administered on 08/03/16 01:04; Start 07/25/16 at 17:30 Meperidine HCl 12.5 mg 12.5 mg PRN Q15MIN PRN IV SHIVERING; Start 07/25/16 at 17:30; Stop 07/29/16 at 13:38; Status DC Propofol (Diprivan) 100 ml @ 0 mls/hr CONT PRN PRN IV POSTOP SEDATION UNTIL EXTUBATE; Start 07/25/16 at 17:30; Stop 07/28/16 at 15:22; Status DC Aspirin (Ecotrin) 325 mg DAILYWBKFT PO Last administered on 07/29/16 09:54; Start 07/26/16 at 08:00; Stop 07/29/16 at 09:59; Status DC Aspirin (Aspirin) 300 mg PRN DAILY PRN VT IF UNABLE TO TAKE PO; Start 07/25/16 at 17:30; Stop 07/26/16 at 12:00; Status DC Acetaminophen/ Hydrocodone Bitart (Lortab 5/325) 1 tab PRN Q4HRS PRN PO MILD PAIN; Start 07/25/16 at 17:30; Stop 08/03/16 at 12:24; Status DC Acetaminophen/ Hydrocodone Bitart 2 tab 2 tab PRN Q4HRS PRN PO MODERATE PAIN, SEVERE PAIN; Start 07/25/16 at 17:30; Stop 08/03/16 at 12:24; Status DC Cefazolin Sodium/ Dextrose 50 ml @ 100 mls/hr Q8H IV ; Start 07/25/16 at 18:00 ; Stop 07/25/16 at 21:42; Status DC Albumin Human 250 ml @ 62.5 mls/hr 1X ONCE IV Last administered on 07/27/16 17:52; Start 07/25/16 at 17:30; Stop 07/25/16 at 21:29; Status DC Midazolam HCl 100 ml @ As Directed STK-MED ONCE IV ; Start 07/25/16 at 18:06; Stop 07/25/16 at 18:07; Status DC Midazolam HCl 100 ml @ 0 mls/hr CONT PRN IV SEE I/O RECORD Last administered on 07/25/16 18:56; Start 07/25/16 at 18:15; Stop 07/26/16 at 08:59; Status DC Vancomycin HCl 1 gm/Sodium Chloride 250 ml @ 250 mls/hr 1X ONCE IV Last administered on 07/25/16 20:56; Start 07/25/16 at 18:15; Stop 07/25/16 at 19:14 ; Status DC Piperacillin Sod/ Tazobactam Sod/ Sodium Chloride (Zosyn/Iv Sodium Chloride 0.9 % 50ml) 50 ml @ 100 mls/hr Q6HRS IV Last administered on 07/31/16 05:32; Start 07/25/16 at 18:15; Stop 07/31/16 at 10:25; Status DC Midazolam HCl (Versed) 2 mg PRN Q20MIN PRN IV SEDATION; Start 07/25/16 at 18:15 ; Stop 07/25/16 at 18:39; Status DC Midazolam HCl 5 mg 5 mg PRN Q30MIN PRN IV SEDATION; Start 07/25/16 at 18:15; Stop 07/25/16 at 18:39; Status DC Vecuronium [place] 100 mg/ Dextrose 100 ml @ 0 mls/hr 1X ONCE IV Last administered on 07/25/16 19:43; Start 07/25/16 at 18:15; Stop 07/25/16 at 18:17 ; Status DC Midazolam HCl 100 ml @ 0 mls/hr CONT PRN IV SEE I/O RECORD Last administered on 07/28/16 19:40; Start 07/25/16 at 18:45 Dobutamine HCl/ Dextrose 250 ml @ 0 mls/hr CONT PRN IV SEE I/O RECORD Last administered on 07/29/16 03:10; Start 07/25/16 at 18:45; Stop 07/29/16 at 13:38 ; Status DC Potassium Chloride 50 ml @ 50 mls/hr Q1H IV Last administered on 07/25/16 22: 58; Start 07/25/16 at 21:00; Stop 07/25/16 at 23:59; Status DC Cefazolin Sodium/ Dextrose 50 ml @ 100 mls/hr Q8H IV Last administered on 07/27 05:34; Start 07/25/16 at 22:00; Stop 07/27/16 at 06:29; Status DC Heparin Sodium (Porcine) 03710 unit/Dextrose 512.5 ml @ 0 mls/hr Q0M ONCE IV Last administered on 07/25/16 22:21; Start 07/25/16 at 22:15; Stop 07/25/16 at 22:16; Status DC Vecuronium [place]/Dextrose (Norcuron) 100 ml @ 0 mls/hr CONT PRN IV SEE I/O RECORD Last administered on 07/26/16 01:07; Start 07/26/16 at 00:45; Stop 07/29 at 13:38; Status DC Dextrose 25 gm 25 gm 1X ONCE IV Last administered on 07/26/16 01:08; Start at 01:00; Stop 07/26/16 at 01:18; Status DC Amiodarone HCl/ Dextrose (Cordarone) 259 ml @ 17.26 mls/ hr CONT PRN IV SEE I/ O RECORD Last administered on 07/30/16 13:02; Start 07/26/16 at 06:45; Stop at 15:33; Status DC Cefazolin Sodium/ Dextrose 2 gm 2 gm STK-MED ONCE IV ; Start 07/25/16 at 11:00; Stop 07/26/16 at 08:53; Status DC Lactated Ringer's 500 ml @ 5,000 mls/hr PRN Q10MIN PRN IV CVP <14; Start 07/26 at 10:00; Stop 07/29/16 at 13:38; Status DC Fentanyl Citrate (Fentanyl 600 Mcg/30 ml L D RN) 30 ml @ 0 mls/hr CONT PRN IV PROTOCOL Last administered on 07/31/16 09:12; Start 07/26/16 at 10:00; Stop at 13:31; Status DC Fentanyl Citrate (Fentanyl 2ml Vial) 25 mcg PRN Q1HR PRN IV COMM; Start at 10:00; Stop 07/29/16 at 13:38; Status DC Fentanyl Citrate (Fentanyl 2ml Vial) 50 mcg PRN Q1HR PRN IV COMM; Start at 10:00; Stop 07/29/16 at 13:38; Status DC Chlorhexidine Gluconate (Peridex) 15 ml BID MM Last administered on 08/04/16 11:26; Start 07/26/16 at 10:30 Sulfur Hexafluoride Microspheres (Lumason) 25 mg STK-MED ONCE IVP ; Start at 11:29; Stop 07/26/16 at 11:30; Status DC Aspirin 300 mg 300 mg DAILY VT Last administered on 07/28/16 07:55; Start 03/03 at 12:00; Stop 07/29/16 at 19:10; Status DC Potassium Chloride (KCl Premix 20meq) 50 ml @ 50 mls/hr 1X ONCE IV Last administered on 07/26/16 12:55; Start 07/26/16 at 12:00; Stop 07/26/16 at 12:59 ; Status DC Sulfur Hexafluoride Microspheres (Lumason) 25 mg 1X ONCE IVP Last administered on 07/26/16 11:45; Start 07/26/16 at 11:45; Stop 07/26/16 at 11:50 ; Status DC Multi-Ingred Cream/Lotion/Oil/ Oint (Artificial Tears Eye Oint) 1 adri BID OU Last administered on 08/04/16 11:26; Start 07/26/16 at 21:00 Ondansetron HCl (Zofran) 4 mg PRN Q6HRS PRN IV NAUSEA/VOMITING; Start 07/27/16 at 07:00; Stop 07/28/16 at 06:59; Status DC Fentanyl Citrate (Fentanyl 2ml Vial) 25 mcg PRN Q5MIN PRN IV MILD PAIN; Start 07/27/16 at 07:00; Stop 07/28/16 at 06:59; Status DC Fentanyl Citrate (Fentanyl 2ml Vial) 50 mcg PRN Q5MIN PRN IV MODERATE PAIN; Start 07/27/16 at 07:00; Stop 07/28/16 at 06:59; Status DC Morphine Sulfate 1 mg 1 mg PRN Q10MIN PRN IV SEVERE PAIN; Start 07/27/16 at 07: 00; Stop 07/28/16 at 06:59; Status DC Lactated Ringer's (Iv Lactated Ringers) 1,000 ml @ 30 mls/hr Q24H IV Last administered on 07/26/16 17:25; Start 07/27/16 at 07:00; Stop 07/27/16 at 18:59 ; Status DC Lidocaine HCl 2 ml PRN 1X PRN ID PRIOR TO IV START; Start 07/27/16 at 07:00; Stop 07/28/16 at 06:59; Status DC Hydromorphone HCl (Dilaudid) 0.5 mg PRN Q10MIN PRN IV SEV PAIN, Second choice; Start 07/27/16 at 07:00; Stop 07/28/16 at 06:59; Status DC Prochlorperazine Edisylate 5 mg 5 mg PACU PRN PRN IV NAUSEA, MRX1; Start at 07:00; Stop 07/28/16 at 06:59; Status DC Heparin Sodium (Porcine) 65605 unit/Dextrose 512.5 ml @ 0 mls/hr Q0M ONCE IV Last administered on 07/26/16 19:40; Start 07/26/16 at 18:30; Stop 07/26/16 at 18:31; Status DC Amiodarone HCl 150 mg/Dextrose 103 ml @ 618 mls/hr 1X ONCE IV Last administered on 07/26/16 19:25; Start 07/26/16 at 19:15; Stop 07/26/16 at 19:24 ; Status DC Norepinephrine Bitartrate 8 mg/ Sodium Chloride 258 ml @ 1.93 mls/hr CONT PRN IV SEE I/O RECORD Last administered on 08/03/16 11:12; Start 07/26/16 at 19:15 Amiodarone HCl 900 mg/Dextrose 518 ml @ 0 mls/hr CONT PRN IV PER PROTOCOL; Start 07/26/16 at 19:15; Stop 07/27/16 at 12:11; Status DC Milrinone Lactate/ Dextrose 100 ml @ 0 mls/hr CONT PRN IV SEE I/O RECORD Last administered on 07/26/16 20:03; Start 07/26/16 at 19:45; Stop 07/29/16 at 13:51 ; Status DC Calcium Chloride/ Sodium Chloride (Iv Sodium Chloride 0.9% 100ml) 120 ml @ 240 mls/hr 1X ONCE IV Last administered on 07/26/16 21:04; Start 07/26/16 at 21: 30; Stop 07/26/16 at 21:59; Status DC Digoxin 500 mcg 500 mcg 1X ONCE IV Last administered on 07/26/16 21:55; Start 07/26/16 at 21:45; Stop 07/26/16 at 21:46; Status DC Cefazolin Sodium/ Sodium Chloride (Ancef/Iv Sodium Chloride 0.9% 500ml Bag) 500 ml @ 500 mls/hr 1X PERIOP ONCE IRR Last administered on 07/27/16 14:37; Start 07/27/16 at 10:00; Stop 07/27/16 at 10:59; Status DC Vancomycin HCl (Vanco) 10 gm 1X ONCE CEMENT Last administered on 07/27/16 14: 37; Start 07/27/16 at 12:30; Stop 07/27/16 at 12:31; Status DC Rocuronium [place] (Zemuron) 100 mg STK-MED ONCE .ROUTE ; Start 07/27/16 at 12: 32; Stop 07/27/16 at 12:33; Status DC Lorazepam (Ativan) 2 mg STK-MED ONCE .ROUTE ; Start 07/27/16 at 14:13; Stop 04/02 at 14:14; Status DC Phenylephrine HCl 1 mg 1 mg STK-MED ONCE IV ; Start 07/27/16 at 14:18; Stop 04/02 at 14:19; Status DC Albumin Human (Plasmanate) 250 ml @ 62.5 mls/hr 1X ONCE IV Last administered on 07/27/16 17:52; Start 07/27/16 at 17:15; Stop 07/27/16 at 21:14; Status DC Sodium Bicarbonate 50 meq STK-MED ONCE .ROUTE ; Start 07/27/16 at 17:39; Stop at 17:40; Status DC Sodium Bicarbonate 50 meq 1X ONCE IV Last administered on 07/27/16 17:51; Start 07/27/16 at 18:00; Stop 07/27/16 at 18:01; Status DC Sodium Bicarbonate 50 meq 1X ONCE IV Last administered on 07/27/16 17:52; Start 07/27/16 at 18:00; Stop 07/27/16 at 18:01; Status DC Fentanyl Citrate (Fentanyl 2ml Vial) 25 mcg PRN Q5MIN PRN IV MILD PAIN; Start 07/28/16 at 07:00; Stop 07/29/16 at 06:59; Status DC Fentanyl Citrate (Fentanyl 2ml Vial) 50 mcg PRN Q5MIN PRN IV MODERATE PAIN; Start 07/28/16 at 07:00; Stop 07/29/16 at 06:59; Status DC Morphine Sulfate 1 mg 1 mg PRN Q10MIN PRN IV SEVERE PAIN; Start 07/28/16 at 07: 00; Stop 07/29/16 at 06:59; Status DC Lactated Ringer's (Iv Lactated Ringers) 1,000 ml @ 30 mls/hr Q24H IV Last administered on 07/28/16 06:49; Start 07/28/16 at 06:49; Stop 07/28/16 at 18:48 ; Status DC Lidocaine HCl 2 ml PRN 1X PRN ID PRIOR TO IV START; Start 07/28/16 at 07:00; Stop 07/29/16 at 06:59; Status DC Hydromorphone HCl (Dilaudid) 0.5 mg PRN Q10MIN PRN IV SEV PAIN, Second choice; Start 07/28/16 at 07:00; Stop 07/29/16 at 06:59; Status DC Rocuronium [place] 50 mg 50 mg STK-MED ONCE .ROUTE ; Start 07/28/16 at 07:27; Stop 07/28/16 at 07:28; Status DC Cefazolin Sodium/ Sodium Chloride (Ancef/Iv Sodium Chloride 0.9% 500ml Bag) 500 ml @ 500 mls/hr 1X PERIOP ONCE IRR Last administered on 07/28/16 09:25; Start 07/28/16 at 08:00; Stop 07/28/16 at 08:59; Status DC Cellulose 1 each STK-MED ONCE .ROUTE ; Start 07/28/16 at 07:42; Stop 07/28/16 at 07:43; Status DC Bupivacaine HCl/ Epinephrine Bitart 50 ml 50 ml STK-MED ONCE .ROUTE ; Start at 07:42; Stop 07/28/16 at 07:43; Status DC Heparin Sodium (Porcine)/Sodium Chloride (Heparin Sodium/ Iv Sodium Chloride 0.9 % 500ml Bag) 505 ml @ 505 mls/hr 1X PERIOP ONCE IRR Last administered on 07/28 10:19; Start 07/28/16 at 08:15; Stop 07/28/16 at 09:14; Status DC Lorazepam 2 mg 2 mg STK-MED ONCE .ROUTE ; Start 07/28/16 at 08:29; Stop at 08:30; Status DC Magnesium Sulfate/ Dextrose (Magnesium Sulfate PREMIX 1GM) 100 ml @ 100 mls/hr 1X ONCE IV Last administered on 07/28/16t 13:09; Start 07/28/16 at 09:00; Stop 07/28/16 at 09:59; Status DC Vasopressin (Vasostrict) 20 unit STK-MED ONCE .ROUTE ; Start 07/28/16 at 09:03; Stop 07/28/16 at 09:04; Status DC Epinephrine HCl (Epinephrine Syringe) 1 mg STK-MED ONCE .ROUTE ; Start 07/28/16 at 09:09; Stop 07/28/16 at 09:10; Status DC Calcium Chloride 1,000 mg STK-MED ONCE IV ; Start 07/28/16 at 09:09; Stop at 09:10; Status DC Phenylephrine HCl 1 mg STK-MED ONCE IV ; Start 07/28/16 at 09:54; Stop 07/28/16 at 09:55; Status DC Sevoflurane 60 ml 60 ml STK-MED ONCE IH ; Start 07/28/16 at 09:54; Stop at 09:55; Status DC Epinephrine HCl/ Sodium Chloride (Adrenalin/Iv Sodium Chloride 0.9% 250ml) 254 ml @ 3.81 mls/hr 1X ONCE IV ; Start 07/28/16 at 10:00; Stop 07/29/16 at 19:10 ; Status DC Heparin Sodium (Porcine) 38115 unit 10,000 unit STK-MED ONCE .ROUTE ; Start at 09:57; Stop 07/28/16 at 09:58; Status DC Albumin Human (Plasmanate) 500 ml @ As Directed STK-MED ONCE IV ; Start at 09:57; Stop 07/28/16 at 09:58; Status DC Iohexol 100 ml 100 ml STK-MED ONCE .ROUTE ; Start 07/28/16 at 10:39; Stop at 10:40; Status DC Heparin Sodium/ Sodium Chloride 500 ml @ As Directed STK-MED ONCE .ROUTE ; Start 07/28/16 at 10:39; Stop 07/28/16 at 10:40; Status DC Iohexol 100 ml 100 ml STK-MED ONCE .ROUTE ; Start 07/28/16 at 10:43; Stop at 10:44; Status DC Heparin Sodium/ Sodium Chloride 500 ml @ As Directed STK-MED ONCE .ROUTE ; Start 07/28/16 at 11:21; Stop 07/28/16 at 11:22; Status DC Albuterol Sulfate (Ventolin Neb Soln) 2.5 mg RTQID NEB Last administered on 08:46; Start 07/28/16 at 12:00; Stop 07/30/16 at 17:05; Status DC Furosemide (Lasix) 40 mg 1X ONCE IVP Last administered on 07/28/16 13:16; Start 07/28/16 at 13:15; Stop 07/28/16 at 13:16; Status DC Furosemide (Lasix) 40 mg 1X ONCE IVP Last administered on 07/28/16 13:19; Start 07/28/16 at 14:00; Stop 07/28/16 at 14:01; Status DC Heparin Sodium/ Sodium Chloride 1000 unit 1,000 unit CONT PRN IV ART LINE FLUSH Last administered on 08/02/16 06:47; Start 07/28/16 at 14:45 Albumin Human 250 ml @ 62.5 mls/hr PRN Q1HR PRN IV SEE COMMENTS Last administered on 08/02/16 16:12; Start 07/28/16 at 15:15 Furosemide 100 mg/ Sodium Chloride 100 ml @ 5 mls/hr CONT PRN IV SEE I/O RECORD Last administered on 07/30/16 09:50; Start 07/28/16 at 15:30; Stop 07/31 at 13:31; Status DC Potassium Chloride 50 ml @ 50 mls/hr Q1H IV Last administered on 07/28/16 19: 39; Start 07/28/16 at 18:30; Stop 07/28/16 at 20:29; Status DC Potassium Chloride (KCl Premix 20meq) 50 ml @ 50 mls/hr Q1H IV Last administered on 07/29/16 09:36; Start 07/29/16 at 07:00; Stop 07/29/16 at 08:59 ; Status DC Lorazepam (Ativan) 2 mg STK-MED ONCE .ROUTE ; Start 07/28/16 at 08:30; Stop at 08:16; Status DC Aspirin (Arti Aspirin) 325 mg [id number] PO Last administered on 08/04/16 11: 25; Start 07/30/16 at 08:00 Docusate Sodium 100 mg 100 mg DAILY PO Last administered on 07/31/16 07:59; Start 07/30/16 at 09:00; Stop 07/31/16 at 11:00; Status DC Dobutamine HCl/ Dextrose 250 ml @ 12.1 mls/hr CONT PRN IV PER PROTOCOL Last administered on 08/02/16 18:03; Start 07/29/16 at 13:30 Potassium Chloride 50 ml @ 50 mls/hr Q1H IV Last administered on 07/29/16 22: 39; Start 07/29/16 at 20:00; Stop 07/29/16 at 22:59; Status DC Potassium Chloride (KCl Premix 20meq) 50 ml @ 50 mls/hr Q1H IV Last administered on 07/30/16 09:19; Start 07/30/16 at 07:00; Stop 07/30/16 at 08:59 ; Status DC Ipratropium [place] (Atrovent) 0.5 mg RTQID NEB Last administered on 08/04/16 08:33; Start 07/30/16 at 12:30 Digoxin 500 mcg 500 mcg 1X ONCE IV Last administered on 07/30/16 13:01; Start 07/30/16 at 12:15; Stop 07/30/16 at 12:19; Status DC Dexmedetomidine HCl/Sodium Chloride (Precedex/Iv Sodium Chloride 0.9% 50ml) 50 ml @ 0 mls/hr CONT PRN IV PER PROTOCOL Last administered on 08/04/16 05:20; Start 07/30/16 at 13:30 Atropine Sulfate 0.5 mg PRN Q5MIN PRN IV SEE COMMENTS; Start 07/30/16 at 13:30 Amiodarone HCl (Cordarone) 400 mg ONCE ONCE PO Last administered on 07/30/16 15:01; Start 07/30/16 at 13:30; Stop 07/30/16 at 13:46; Status DC Amiodarone HCl (Cordarone) 400 mg BID PO Last administered on 08/04/16 11:25; Start 07/30/16 at 21:00 Digoxin 125 mcg 125 mcg DAILY IV Last administered on 08/02/16 08:56; Start at 09:00; Stop 08/03/16 at 14:27; Status DC Albumin Human (Albuminar) 50 ml @ 50 mls/hr 1X ONCE IV Last administered on 16:26; Start 07/30/16 at 16:30; Stop 07/30/16 at 17:29; Status DC Ibuprofen (Motrin) 200 mg PRN Q6HRS PRN PO fever; Start 07/30/16 at 19:45; Stop 08/01/16 at 12:22; Status DC Metoprolol Tartrate (Lopressor) 2.5 mg 1X ONCE IVP Last administered on 20:23; Start 07/30/16 at 20:30; Stop 07/30/16 at 20:31; Status DC Metoprolol Tartrate 5 mg 5 mg PRN Q2HR PRN IVP HYPERTENSION Last administered on 07/31/16 08:04; Start 07/30/16 at 22:30 Potassium Chloride (KCl Premix 20meq) 50 ml @ 50 mls/hr Q1H IV Last administered on 07/31/16 09:04; Start 07/31/16 at 07:00; Stop 07/31/16 at 08:59 ; Status DC Metoprolol Tartrate (Lopressor) 12.5 mg BID NG Last administered on 08/04/16 11:25; Start 07/31/16 at 10:00 Docusate Sodium (Colace Solution) 100 mg PRN DAILY PRN PO constipation Last administered on 08/01/16 08:40; Start 07/31/16 at 11:00 Hydralazine HCl (Apresoline) 10 mg PRN Q2HRS PRN IVP ELEVATED BP, SEE COMMENTS Last administered on 08/01/16 16:35; Start 07/31/16 at 13:30 Fentanyl Citrate (Fentanyl 2ml Vial) 50 mcg PRN Q2HR PRN IV PAIN Last administered on 08/02/16 12:57; Start 07/31/16 at 13:45 Furosemide (Lasix) 40 mg TID IVP Last administered on 08/02/16 05:49; Start at 14:00; Stop 08/02/16 at 15:33; Status DC Alteplase, Recombinant (Cathflo) 2 mg 1X ONCE INT CAT Last administered on 23:34; Start 07/31/16 at 23:15; Stop 07/31/16 at 23:16; Status DC Haloperidol Lactate (Haldol) 5 mg PRN Q6HRS PRN IVP MODERATE AGITATION Last administered on 08/01/16 21:21; Start 08/01/16 at 21:00 Haloperidol Lactate 10 mg 10 mg PRN Q6HRS PRN IVP SEVERE AGITATION Last administered on 08/01/16 23:59; Start 08/01/16 at 23:45 Propofol 100 ml @ 0 mls/hr CONT PRN IV SEE I/O RECORD Last administered on 08/02 11:43; Start 08/02/16 at 02:45 Piperacillin Sod/ Tazobactam Sod/ Sodium Chloride (Zosyn/Iv Sodium Chloride 0.9 % 50ml) 50 ml @ 100 mls/hr Q6HRS IV Last administered on 08/02/16 13:17; Start 08/02/16 at 12:00; Stop 08/02/16 at 15:43; Status DC Vancomycin HCl 1 each 1 each PRN DAILY PRN MC SEE COMMENTS Last administered on 08/02/16 13:20; Start 08/02/16 at 11:45; Stop 08/03/16 at 15:24; Status DC Vancomycin HCl 2 gm/Sodium Chloride 500 ml @ 250 mls/hr 1X ONCE IV Last administered on 08/02/16 11:52; Start 08/02/16 at 12:00; Stop 08/02/16 at 13:59 ; Status DC Sodium Chloride (Iv Sodium Chloride 0.9% 500ml Bag) 500 ml @ 500 mls/hr 1X ONCE IV Last administered on 08/02/16 12:39; Start 08/02/16 at 12:45; Stop at 13:44; Status DC Vecuronium [place] (Norcuron Bolus) 10 mg 1X STAT IV Last administered on 08/02 13:34; Start 08/02/16 at 13:17; Stop 08/02/16 at 13:23; Status DC Vancomycin HCl 1 each 1 each 1X ONCE MC ; Start 08/03/16 at 23:30; Stop at 23:30; Status DC Vancomycin HCl 1.25 gm/Sodium Chloride 250 ml @ 167 mls/hr Q12H IV Last administered on 08/03/16 00:33; Start 08/03/16 at 00:00; Stop 08/03/16 at 11:07 ; Status DC Fentanyl Citrate (Fentanyl 600 Mcg/30 ml L D RN) 30 ml @ 0 mls/hr CONT PRN PRN IV PROTOCOL Last administered on 08/03/16 23:15; Start 08/02/16 at 13:30 Naloxone HCl 0.4 mg 0.4 mg PRN Q2MIN PRN IV SEE INSTRUCTIONS; Start 08/02/16 at 13:30 Micafungin Sodium 100 mg/Dextrose 100 ml @ 100 mls/hr Q24H IV Last administered on 08/03/16 18:36; Start 08/02/16 at 17:00 Lactated Ringer's 1,000 ml @ 1,000 mls/hr 1X ONCE IV Last administered on 15:45; Start 08/02/16 at 15:45; Stop 08/02/16 at 16:44; Status DC Piperacillin Sod/ Tazobactam Sod 4.5 gm/Sodium Chloride 100 ml @ 200 mls/hr Q6HRS IV Last administered on 08/03/16 12:00; Start 08/02/16 at 18:00; Stop at 14:02; Status DC Albumin Human (Plasmanate) 500 ml @ 125 mls/hr 1X ONCE IV Last administered on 08/02/16 20:37; Start 08/02/16 at 20:30; Stop 08/03/16 at 00:29; Status DC Furosemide (Lasix) 40 mg 1X ONCE IVP Last administered on 08/03/16 00:16; Start 08/02/16 at 20:30; Stop 08/02/16 at 20:31; Status DC Acetaminophen (Tylenol) 650 mg 1X ONCE NG Last administered on 08/03/16 02:03 ; Start 08/03/16 at 02:15; Stop 08/03/16 at 02:16; Status DC Ketorolac Tromethamine 15 mg 15 mg 1X ONCE IV Last administered on 08/03/16 02:03; Start 08/03/16 at 02:15; Stop 08/03/16 at 02:16; Status DC Lactated Ringer's (Iv Lactated Ringers) 500 ml @ 500 mls/hr 1X ONCE IV Last administered on 08/03/16 10:15; Start 08/03/16 at 10:15; Stop 08/03/16 at 11:14 ; Status DC Sodium Bicarbonate 50 meq 1X ONCE IV Last administered on 08/03/16 10:44; Start 08/03/16 at 10:15; Stop 08/03/16 at 10:20; Status DC Calcium Gluconate 1000 mg 1,000 mg 1X ONCE IVP ; Start 08/03/16 at 12:15; Stop 08/03/16 at 12:16; Status DC Sodium Bicarbonate 150 meq/Dextrose/ Sodium Chloride 1,150 ml @ 100 mls/hr [id number] PRN IV .; Start 08/03/16 at 12:30; Stop 08/03/16 at 13:03; Status DC Magnesium Sulfate/ Dextrose 50 ml @ 25 mls/hr PRN DAILY PRN IV for Mag < 1.7 on am labs; Start 08/03/16 at 12:30 Sodium Bicarbonate 150 meq/Dextrose 1,150 ml @ 100 mls/hr [id number] IV Last administered on 08/04/16 04:31; Start 08/03/16 at 13:30; Stop 08/04/16 at 08:31 ; Status DC Calcium Chloride 2000 mg/Sodium Chloride 120 ml @ 240 mls/hr 1X ONCE IV Last administered on 08/03/16 13:30; Start 08/03/16 at 13:30; Stop 08/03/16 at 13:59 ; Status DC Piperacillin Sod/ Tazobactam Sod/ Sodium Chloride (Zosyn/Iv Sodium Chloride 0.9 % 50ml) 50 ml @ 100 mls/hr Q6HRS IV Last administered on 08/04/16 11:28; Start 08/03/16 at 18:00 Heparin Sodium (Porcine) (Heparin Sodium) 10,000 unit STK-MED ONCE .ROUTE ; Start 08/03/16 at 14:31; Stop 08/03/16 at 14:32; Status DC Lidocaine/Sodium Bicarbonate (Buffered Lidocaine 1%) 20 ml STK-MED ONCE IJ ; Start 08/03/16 at 14:31; Stop 08/03/16 at 14:32; Status DC Heparin Sodium/ Sodium Chloride 60 unit 1X ONCE IV Last administered on 16:17; Start 08/03/16 at 14:45; Stop 08/03/16 at 14:46; Status DC Heparin Sodium (Porcine) (Heparin Sodium) 2,500 unit 1X ONCE INT CAT Last administered on 08/03/16 16:16; Start 08/03/16 at 14:45; Stop 08/03/16 at 14:46 ; Status DC Lidocaine/Sodium Bicarbonate (Buffered Lidocaine 1%) 3 ml 1X ONCE IJ Last administered on 08/03/16 16:16; Start 08/03/16 at 14:45; Stop 08/03/16 at 14:46 ; Status DC Fentanyl Citrate (Fentanyl 2ml Vial) 25 mcg PRN Q5MIN PRN IV MILD PAIN; Start 08/04/16 at 07:00; Stop 08/05/16 at 06:59 Fentanyl Citrate (Fentanyl 2ml Vial) 50 mcg PRN Q5MIN PRN IV MODERATE PAIN; Start 08/04/16 at 07:00; Stop 08/05/16 at 06:59 Morphine Sulfate 1 mg 1 mg PRN Q10MIN PRN IV SEVERE PAIN; Start 08/04/16 at 07: 00; Stop 08/05/16 at 06:59 Lactated Ringer's (Iv Lactated Ringers) 1,000 ml @ 0 mls/hr Q0M IV ; Start at 07:00; Stop 08/04/16 at 18:59 Lidocaine HCl 2 ml PRN 1X PRN ID PRIOR TO IV START; Start 08/04/16 at 07:00; Stop 08/05/16 at 06:59 Hydromorphone HCl (Dilaudid) 0.5 mg PRN Q10MIN PRN IV SEV PAIN, Second choice; Start 08/04/16 at 07:00; Stop 08/05/16 at 06:59 Famotidine (Pepcid) 20 mg DAILY IVP Last administered on 08/04/16 11:26; Start 08/04/16 at 09:00 Insulin Aspart (Novolog) 0-7 UNITS TIDWMEALS SQ ; Start 08/03/16 at 19:00 Dextrose 12.5 gm 12.5 gm PRN Q15MIN PRN IV SEE COMMENTS; Start 08/03/16 at 18: 30 Sodium Chloride 1,000 ml @ 1,000 mls/hr Q1H PRN IV hypotension; Start 08/03/16 at 18:33; Stop 08/04/16 at 00:32; Status DC Sodium Chloride (Iv Sodium Chloride 0.9% 1000ml Bag) 1,000 ml @ 400 mls/hr Q2H30M PRN IV PATENCY; Start 08/03/16 at 18:33; Stop 08/04/16 at 06:32; Status DC Info 1 each 1 each PRN DAILY PRN MC SEE COMMENTS; Start 08/03/16 at 18:45 Sodium Chloride 1,000 ml @ 1,000 mls/hr Q1H PRN IV hypotension; Start 08/04/16 at 07:44; Stop 08/04/16 at 13:43 Albumin Human (Albuminar) 200 ml @ 200 mls/hr 1X PRN PRN IV Hypotension Last administered on 08/04/16t 08:48; Start 08/04/16 at 07:45; Stop 08/04/16 at 13:44 Diphenhydramine HCl (Benadryl) 25 mg 1X PRN PRN IV ITCHING; Start 08/04/16 at 07:45; Stop 08/05/16 at 07:44 Diphenhydramine HCl (Benadryl) 25 mg 1X PRN PRN IV ITCHING; Start 08/04/16 at 07:45; Stop 08/05/16 at 07:44 Sodium Chloride (Normal Saline Flush) 10 ml 1X PRN PRN IV AP catheter pack; Start 08/04/16 at 07:45; Stop 08/05/16 at 07:44 Sodium Chloride 10 ml 10 ml 1X PRN PRN IV DRAFTER (CAD) ELECTRONIC catheter pack; Start 08/04/16 at 07:45; Stop 08/05/16 at 07:44 Sodium Chloride (Iv Sodium Chloride 0.9% 1000ml Bag) 1,000 ml @ 400 mls/hr Q2H30M PRN IV PATENCY; Start 08/04/16 at 07:44; Stop 08/04/16 at 19:43 Info (PHARMACY MONITORING -- do not chart) 1 each PRN DAILY PRN MC SEE COMMENTS ; Start 08/04/16 at 07:45 Active Scripts Active Reported Amlodipine Besylate 5 Mg Tablet 5 Mg PO DAILY Pradaxa (Dabigatran Etexilate Mesylate) 150 Mg Capsule 1 Cap PO BID Metoprolol Succinate ( Xl ) (Metoprolol Succinate) 100 Mg Tab.er.24h 1 Tab PO DAILY Vitals/I & O Vital Sign - Last 24 Hours 08/03/16 08/03/16 08/03/16 08/03/16 12:00 12:00 12:36 12:52 Temp 100.5 100.4 100.2 100.5 100.4 100.2 Pulse 115 112 122 Resp 16 16 16 B/P 136/64 134/68 132/68 Pulse Ox 94 O2 Delivery Mechanical Ventilator Ventilator 08/03/16 08/03/16 08/03/16 08/03/16 13:00 13:32 13:50 13:52 Temp 100.5 100.3 100.5 100.3 Pulse 125 125 Resp 16 B/P 124/60 138/63 Pulse Ox 94 94 97 O2 Delivery Ventilator Ventilator Ventilator 08/03/16 08/03/16 08/03/16 08/03/16 14:00 14:02 15:00 15:57 Temp 100.5 100.5 100.5 100.5 Pulse 140 120 Resp 16 16 B/P 138/58 146/64 Pulse Ox 96 94 98 94 O2 Delivery Ventilator Ventilator Ventilator Ventilator 08/03/16 08/03/16 08/03/16 08/03/16 16:00 16:00 17:00 18:00 Temp 101.0 101.0 Pulse 122 112 78 Resp 16 16 B/P 140/72 128/78 128/78 Pulse Ox 96 97 94 O2 Delivery Ventilator Mechanical Ventilator Ventilator Ventilator 08/03/16 08/03/16 08/03/16 08/03/16 18:05 19:00 20:00 20:00 Temp 98.2 98.2 Pulse 100 106 Resp 22 B/P 152/78 120/68 Pulse Ox 99 96 93 O2 Delivery Ventilator Ventilator Ventilator Mechanical Ventilator 08/03/16 08/03/16 08/03/16 08/03/16 21:00 21:06 21:54 21:55 Pulse 88 89 79 Resp 28 B/P 110/62 130/67 130/67 Pulse Ox 97 99 O2 Delivery Ventilator Ventilator 08/03/16 08/03/16 08/04/16 08/04/16 22:00 23:00 00:00 00:00 Temp 97.4 97.2 97.4 97.2 Pulse 86 84 82 Resp 17 B/P 134/72 152/74 144/76 Pulse Ox 99 99 98 O2 Delivery Ventilator Ventilator Mechanical Ventilator Ventilator 08/04/16 08/04/16 08/04/16 08/04/16 00:06 01:00 02:00 02:21 Temp 97.5 97.5 Pulse 78 72 Resp 16 16 B/P 144/74 118/62 Pulse Ox 99 99 100 99 O2 Delivery Ventilator Ventilator Ventilator Ventilator 08/04/16 08/04/16 08/04/16 08/04/16 03:00 04:00 04:00 05:00 Temp 97.4 97.4 Pulse 74 72 70 Resp 19 B/P 112/60 116/62 116/64 Pulse Ox 98 98 98 O2 Delivery Ventilator Mechanical Ventilator Ventilator Ventilator 08/04/16 08/04/16 08/04/16 08/04/16 06:00 07:00 07:27 08:00 Temp 97.4 97.4 Pulse 74 72 Resp 16 20 B/P 112/60 98/56 Pulse Ox 100 98 99 O2 Delivery Ventilator Ventilator Ventilator Mechanical Ventilator 08/04/16 08/04/16 08/04/16 08/04/16 08:00 08:33 09:00 10:00 Temp 97.5 97.5 Pulse 67 83 90 Resp 22 22 30 B/P 100/52 102/52 116/62 Pulse Ox 99 94 97 99 O2 Delivery Ventilator Ventilator Ventilator Ventilator 08/04/16 08/04/16 08/04/16 11:00 11:25 11:25 Pulse 85 85 85 Resp 30 B/P 110/55 110/55 110/55 Pulse Ox 98 O2 Delivery Ventilator Intake and Output 08/03/16 08/03/16 08/04/16 15:00 23:00 07:00 Intake Total 650 ml 933 ml 1187 ml Output Total 125 ml 90 ml 75 ml Balance 525 ml 843 ml 1112 ml MILA JEWELL MD Aug 04, 2016 11:50
--- NOTE | 2016-08-04 11:51 | PDOC ---
PULMONARY PROGRESS NOTES Subjective clinically better awake, following commands on HD Vitals Vital Signs Date Time Temp Pulse Resp B/P Pulse Ox O2 Delivery O2 Flow Rate FiO2 08/04/16 11:25 85 110/55 08/04/16 11:00 30 98 Ventilator 08/04/16 08:00 97.5 97.5 General: Alert HEENT: Other (nc at perrl orally intubated nose clease. neck, no lap thyromegaly) Lungs: Other (decrease bs) Cardiovascular: Other (tachy) Abdomen: Soft, Non-tender, Other Extremities: Other (jaundice) Skin: Warm Labs Laboratory Tests Test 08/03/16 07:30 08/03/16 07:50 08/03/16 15:55 08/03/16 16:00 White Blood Count 11.9x10^3/uL (4.0-11.0) 11.2x10^3/uL (4.0-11.0) Red Blood Count 2.32x10^6/uL (4.30-5.70) 2.69x10^6/uL (4.30-5.70) Hemoglobin 7.5g/dL (13.0-17.5) 8.6g/dL (13.0-17.5) Hematocrit 23.0% (39.0-53.0) 26.5% (39.0-53.0) Mean Corpuscular Volume 99fL (79-100) 99fL (79-100) Mean Corpuscular Hemoglobin 32pg (25-35) 32pg (25-35) Mean Corpuscular Hemoglobin Concent 33g/dL (31-37) 33g/dL (31-37) Red Cell Distribution Width 17.7% (11.5-14.5) 16.3% (11.5-14.5) Platelet Count 90x10^3/uL (140-400) 82x10^3/uL (140-400) Neutrophils (%) (Auto) 89% (31-73) 91% (31-73) Lymphocytes (%) (Auto) 7% (24-48) 5% (24-48) Monocytes (%) (Auto) 4% (0-9) 4% (0-9) Eosinophils (%) (Auto) 0% (0-3) 0% (0-3) Basophils (%) (Auto) 0% (0-3) 0% (0-3) Neutrophils # (Auto) 10.6x10^3uL (1.8-7.7) 10.1x10^3uL (1.8-7.7) Lymphocytes # (Auto) 0.8x10^3/uL (1.0-4.8) 0.6x10^3/uL (1.0-4.8) Monocytes # (Auto) 0.5x10^3/uL (0.0-1.1) 0.4x10^3/uL (0.0-1.1) Eosinophils # (Auto) 0.0x10^3/uL (0.0-0.7) 0.0x10^3/uL (0.0-0.7) Basophils # (Auto) 0.0x10^3/uL (0.0-0.2) 0.0x10^3/uL (0.0-0.2) Sodium Level 149mmol/L (136-145) 152mmol/L (136-145) Potassium Level 5.3mmol/L (3.5-5.1) 5.3mmol/L (3.5-5.1) Chloride Level 112mmol/L (98-107) 113mmol/L (98-107) Carbon Dioxide Level 25mmol/L (21-32) 25mmol/L (21-32) Anion Gap 12 (6-14) 14 (6-14) Blood Urea Nitrogen 82mg/dL (8-26) 95mg/dL (8-26) Creatinine 3.1mg/dL (0.7-1.3) 3.6mg/dL (0.7-1.3) Estimated GFR (Cockcroft-Gault) 20.9 17.6 BUN/Creatinine Ratio 26 (6-20) Glucose Level 174mg/dL (70-99) 184mg/dL (70-99) Uric Acid 6.1mg/dL (3.5-7.2) Calcium Level 6.3mg/dL (8.5-10.1) 7.1mg/dL (8.5-10.1) Phosphorus Level 8.3mg/dL (2.6-4.7) Magnesium Level 2.7mg/dL (1.8-2.4) Total Bilirubin 7.1mg/dL (0.2-1.0) Aspartate Amino Transf (AST/SGOT) 50U/L (15-37) Alanine Aminotransferase (ALT/SGPT) 127U/L (16-63) Alkaline Phosphatase 83U/L (46-116) Creatine Kinase 158U/L (39-308) Total Protein 5.2g/dL (6.4-8.2) Albumin 2.2g/dL (3.4-5.0) Albumin/Globulin Ratio 0.7 (1.0-1.7) O2 Saturation 95% (92-99) Arterial Blood pH 7.30 (7.35-7.45) Arterial Blood pCO2 at Patient Temp 40mmHg (35-46) Arterial Blood pO2 at Patient Temp 85mmHg (75-108) Arterial Blood HCO3 19mmol/L (21-28) Arterial Blood Base Excess -7mmol/L (-3-3) FiO2 50 Urine Collection Type Unknown Urine Color Keke Urine Clarity Turbid Urine pH 5.0 Urine Specific [place] 1.020 Urine Protein 100mg/dL (NEG-TRACE) Urine Glucose (UA) Negativemg/dL (NEG) Urine Ketones (Stick) Negativemg/dL (NEG) Urine Blood Moderate (NEG) Urine Nitrite Negative (NEG) Urine Bilirubin Small (NEG) Urine Urobilinogen Dipstick 1.0mg/dL (0.2 mg/dL) Urine Leukocyte Esterase Negative (NEG) Urine RBC 6-10/HPF (0-2) Urine WBC 0/HPF (0-4) Urine Squamous Epithelial Cells Occ/LPF Urine Amorphous Sediment Present/HPF Urine Bacteria 0/HPF (0-FEW) Urine Hyaline Casts Few/HPF Urine Granular Casts Few/HPF Urine Mucus Slight/LPF Segmented Neutrophils % 75% (35-66) Band Neutrophils % 16% (0-9) Lymphocytes % 7% (24-48) Monocytes % 2% (0-10) Nucleated Red Blood Cells 4 Toxic Granulation Slight Dohle Bodies Present Platelet Estimate Decreased (ADEQUATE) Polychromasia Present Poikilocytosis Slight Basophilic Stippling Present Anisocytosis Slight Procalcitonin 44.51ng/mL (0.00-0.10) Digoxin Level 1.9ng/mL (0.9-2.0) Digoxin Last Dose Date 08/02/16 Digoxin Last Dose Time 0856 Test 08/03/16 17:00 08/03/16 17:08 08/04/16 07:00 08/04/16 08:00 Prothrombin Time 17.4SEC (11.7-14.0) Prothromb Time International Ratio 1.5 (0.8-1.1) Activated Partial Thromboplast Time 44SEC (24-38) Glucose (Fingerstick) 165mg/dL (70-99) White Blood Count 6.6x10^3/uL (4.0-11.0) Red Blood Count 2.51x10^6/uL (4.30-5.70) Hemoglobin 8.0g/dL (13.0-17.5) Hematocrit 23.9% (39.0-53.0) Mean Corpuscular Volume 95fL (79-100) Mean Corpuscular Hemoglobin 32pg (25-35) Mean Corpuscular Hemoglobin Concent 34g/dL (31-37) Red Cell Distribution Width 16.2% (11.5-14.5) Platelet Count 68x10^3/uL (140-400) Neutrophils (%) (Auto) 88% (31-73) Lymphocytes (%) (Auto) 8% (24-48) Monocytes (%) (Auto) 4% (0-9) Eosinophils (%) (Auto) 1% (0-3) Basophils (%) (Auto) 0% (0-3) Neutrophils # (Auto) 5.8x10^3uL (1.8-7.7) Lymphocytes # (Auto) 0.5x10^3/uL (1.0-4.8) Monocytes # (Auto) 0.2x10^3/uL (0.0-1.1) Eosinophils # (Auto) 0.1x10^3/uL (0.0-0.7) Basophils # (Auto) 0.0x10^3/uL (0.0-0.2) Sodium Level 144mmol/L (136-145) Potassium Level 3.5mmol/L (3.5-5.1) Chloride Level 103mmol/L (98-107) Carbon Dioxide Level 30mmol/L (21-32) Anion Gap 11 (6-14) Blood Urea Nitrogen 69mg/dL (8-26) Creatinine 3.1mg/dL (0.7-1.3) Estimated GFR (Cockcroft-Gault) 20.9 BUN/Creatinine Ratio 22 (6-20) Glucose Level 186mg/dL (70-99) Calcium Level 7.2mg/dL (8.5-10.1) Phosphorus Level 7.0mg/dL (2.6-4.7) Magnesium Level 2.2mg/dL (1.8-2.4) Total Bilirubin 4.8mg/dL (0.2-1.0) Aspartate Amino Transf (AST/SGOT) 49U/L (15-37) Alanine Aminotransferase (ALT/SGPT) 96U/L (16-63) Alkaline Phosphatase 69U/L (46-116) Total Protein 4.8g/dL (6.4-8.2) Albumin 2.0g/dL (3.4-5.0) Albumin/Globulin Ratio 0.7 (1.0-1.7) O2 Saturation 94% (92-99) Arterial Blood pH 7.51 (7.35-7.45) Arterial Blood pCO2 at Patient Temp 34mmHg (35-46) Arterial Blood pO2 at Patient Temp 77mmHg (75-108) Arterial Blood HCO3 26mmol/L (21-28) Arterial Blood Base Excess 3mmol/L (-3-3) FiO2 40 Test 08/04/16 11:21 Glucose (Fingerstick) 115mg/dL (70-99) Laboratory Tests Test 08/03/16 15:55 08/03/16 16:00 08/03/16 17:00 08/03/16 17:08 Urine Collection Type Unknown Urine Color Keke Urine Clarity Turbid Urine pH 5.0 Urine Specific [place] 1.020 Urine Protein 100mg/dL (NEG-TRACE) Urine Glucose (UA) Negativemg/dL (NEG) Urine Ketones (Stick) Negativemg/dL (NEG) Urine Blood Moderate (NEG) Urine Nitrite Negative (NEG) Urine Bilirubin Small (NEG) Urine Urobilinogen Dipstick 1.0mg/dL (0.2 mg/dL) Urine Leukocyte Esterase Negative (NEG) Urine RBC 6-10/HPF (0-2) Urine WBC 0/HPF (0-4) Urine Squamous Epithelial Cells Occ/LPF Urine Amorphous Sediment Present/HPF Urine Bacteria 0/HPF (0-FEW) Urine Hyaline Casts Few/HPF Urine Granular Casts Few/HPF Urine Mucus Slight/LPF White Blood Count 11.2x10^3/uL (4.0-11.0) Red Blood Count 2.69x10^6/uL (4.30-5.70) Hemoglobin 8.6g/dL (13.0-17.5) Hematocrit 26.5% (39.0-53.0) Mean Corpuscular Volume 99fL (79-100) Mean Corpuscular Hemoglobin 32pg (25-35) Mean Corpuscular Hemoglobin Concent 33g/dL (31-37) Red Cell Distribution Width 16.3% (11.5-14.5) Platelet Count 82x10^3/uL (140-400) Neutrophils (%) (Auto) 91% (31-73) Lymphocytes (%) (Auto) 5% (24-48) Monocytes (%) (Auto) 4% (0-9) Eosinophils (%) (Auto) 0% (0-3) Basophils (%) (Auto) 0% (0-3) Neutrophils # (Auto) 10.1x10^3uL (1.8-7.7) Lymphocytes # (Auto) 0.6x10^3/uL (1.0-4.8) Monocytes # (Auto) 0.4x10^3/uL (0.0-1.1) Eosinophils # (Auto) 0.0x10^3/uL (0.0-0.7) Basophils # (Auto) 0.0x10^3/uL (0.0-0.2) Segmented Neutrophils % 75% (35-66) Band Neutrophils % 16% (0-9) Lymphocytes % 7% (24-48) Monocytes % 2% (0-10) Nucleated Red Blood Cells 4 Toxic Granulation Slight Dohle Bodies Present Platelet Estimate Decreased (ADEQUATE) Polychromasia Present Poikilocytosis Slight Basophilic Stippling Present Anisocytosis Slight Sodium Level 152mmol/L (136-145) Potassium Level 5.3mmol/L (3.5-5.1) Chloride Level 113mmol/L (98-107) Carbon Dioxide Level 25mmol/L (21-32) Anion Gap 14 (6-14) Blood Urea Nitrogen 95mg/dL (8-26) Creatinine 3.6mg/dL (0.7-1.3) Estimated GFR (Cockcroft-Gault) 17.6 Glucose Level 184mg/dL (70-99) Calcium Level 7.1mg/dL (8.5-10.1) Procalcitonin 44.51ng/mL (0.00-0.10) Digoxin Level 1.9ng/mL (0.9-2.0) Digoxin Last Dose Date 08/02/16 Digoxin Last Dose Time 0856 Prothrombin Time 17.4SEC (11.7-14.0) Prothromb Time International Ratio 1.5 (0.8-1.1) Activated Partial Thromboplast Time 44SEC (24-38) Glucose (Fingerstick) 165mg/dL (70-99) Test 08/04/16 07:00 08/04/16 08:00 08/04/16 11:21 White Blood Count 6.6x10^3/uL (4.0-11.0) Red Blood Count 2.51x10^6/uL (4.30-5.70) Hemoglobin 8.0g/dL (13.0-17.5) Hematocrit 23.9% (39.0-53.0) Mean Corpuscular Volume 95fL (79-100) Mean Corpuscular Hemoglobin 32pg (25-35) Mean Corpuscular Hemoglobin Concent 34g/dL (31-37) Red Cell Distribution Width 16.2% (11.5-14.5) Platelet Count 68x10^3/uL (140-400) Neutrophils (%) (Auto) 88% (31-73) Lymphocytes (%) (Auto) 8% (24-48) Monocytes (%) (Auto) 4% (0-9) Eosinophils (%) (Auto) 1% (0-3) Basophils (%) (Auto) 0% (0-3) Neutrophils # (Auto) 5.8x10^3uL (1.8-7.7) Lymphocytes # (Auto) 0.5x10^3/uL (1.0-4.8) Monocytes # (Auto) 0.2x10^3/uL (0.0-1.1) Eosinophils # (Auto) 0.1x10^3/uL (0.0-0.7) Basophils # (Auto) 0.0x10^3/uL (0.0-0.2) Sodium Level 144mmol/L (136-145) Potassium Level 3.5mmol/L (3.5-5.1) Chloride Level 103mmol/L (98-107) Carbon Dioxide Level 30mmol/L (21-32) Anion Gap 11 (6-14) Blood Urea Nitrogen 69mg/dL (8-26) Creatinine 3.1mg/dL (0.7-1.3) Estimated GFR (Cockcroft-Gault) 20.9 BUN/Creatinine Ratio 22 (6-20) Glucose Level 186mg/dL (70-99) Calcium Level 7.2mg/dL (8.5-10.1) Phosphorus Level 7.0mg/dL (2.6-4.7) Magnesium Level 2.2mg/dL (1.8-2.4) Total Bilirubin 4.8mg/dL (0.2-1.0) Aspartate Amino Transf (AST/SGOT) 49U/L (15-37) Alanine Aminotransferase (ALT/SGPT) 96U/L (16-63) Alkaline Phosphatase 69U/L (46-116) Total Protein 4.8g/dL (6.4-8.2) Albumin 2.0g/dL (3.4-5.0) Albumin/Globulin Ratio 0.7 (1.0-1.7) O2 Saturation 94% (92-99) Arterial Blood pH 7.51 (7.35-7.45) Arterial Blood pCO2 at Patient Temp 34mmHg (35-46) Arterial Blood pO2 at Patient Temp 77mmHg (75-108) Arterial Blood HCO3 26mmol/L (21-28) Arterial Blood Base Excess 3mmol/L (-3-3) FiO2 40 Glucose (Fingerstick) 115mg/dL (70-99) Medications Active Scripts Medications Dose Route/Sig Days Date Category Amlodipine Besylate 5 Mg Tablet 5 Mg PO DAILY 07/20/16 Reported Pradaxa (Dabigatran Etexilate Mesylate) 150 Mg Capsule 1 Cap PO BID 07/20/16 Reported Metoprolol Succinate ( Xl ) (Metoprolol Succinate) 100 Mg Tab.er.24h 1 Tab PO DAILY 07/20/16 Reported Comments cxr reviewed,08/03 mild CHF Impression . 1. Expected respiratory failure, status post coronary artery bypass grafting. 2. Cardiogenic shock. followed by septic shock, improved 3. Early post-myocardial infarction complicated with ventricular fibrillation , s/p multiple shocks. 4. Status post implantation of Impella from mechanical circulating support. 5. 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 6. Tobacco use in remission. Spirometry revealed an FEV1, which was 3.2 liters preoperatively. 7. Nutrition, currently on tube feeding. 8. History of hypertension. 9. Severe cardiomyopathy ejection fraction 25%. 10. Peripheral artery disease. 11. Atrial fibrillation. 12. Encephalopathy multifactorial (hepatic, metabolic), improved 13. High grade fever, sepsis, ? source, less likely lungs.ct chest reviewed. responding to antibiotics 14. Abnormal LFT due to sepsis, improving 15. renal failure , on HD Plan . 1. d/w Dr Hamilton. on AC mode 1. will try CPAP trial after HD 2. Continue nutritional support with tube feeding. 3. wean off low dose pressors, Pt does not tolerate dobutamine(increase HR) 4. HD 5. Continue BS empiric antibiotics. 6. Postpone trach for now since clinically improving MICHAEL SIEGEL MD Aug 04, 2016 11:51
--- NOTE | 2016-08-04 13:42 | CONS ---
DATE OF CONSULTATION: 08/03/2016 PRIMARY PHYSICIAN: Dr. Louis. CONSULTING PHYSICIAN: Wayne Muse M.D., cardiothoracic surgeon. REASON FOR CONSULTATION: Acute renal failure. HISTORY OF PRESENT ILLNESS: The patient is a 56-year-old gentleman who presented with severe chest pain and was found to have ST-segment elevation MN. He was taken to the label rewinder and required open heart surgery. Thereafter, he underwent 3-vessel CABG on 06/24 with severe ischemic cardiomyopathy as a result and a postoperative MN as reported with a V-fib arrest. He apparently was doing well until recently with his creatinine running less than 1.4, until the , when it was 1.4 and elevated LFTs. His creatinine was 1.2 yesterday, it is now 3.1. His rates are somewhat discrepant. His eyes and nose reveal approximately a 10 liter negative fluid balance until the last 24 hours. He was given Lasix yesterday. He, however, has become somewhat oliguric overnight. He did get about almost 4.5 liters of fluids overnight. Also, he was noted to have a spiked high grade fevers. His EF has dropped to 20% post-CABG as of 07/26. He remains on numerous drips at this time. Through this, he also required intervention to his lower extremity for PVD. Through all this, we were consulted for acute renal failure since his creatinine has jumped from 1.2 to 3.1. He also noted to be mildly hyperkalemic. He has some metabolic acidosis based on his ABG. His sodium is mildly elevated, calcium is low. LFTs are elevated, so is his bilirubin. For rest of the detail, please see electronic renal consult note, but it is not extensive the amount of time was spent reviewing his records, given his prolonged stay and complicated hospital course. This was reviewed with Dr. Muse, with his as well as with Cardiology nurse practitioner, . Total critical care time spent was 35 minutes. GLENNA STRONG MD DR: PERFECTO/pato JOB#: [id number] / [id number]
[2016-08-04 14:28] LABS: HEP B SURFACE ABDY Non Reactive (.)
--- NOTE | 2016-08-04 14:48 | PDOC ---
Progress Note Subjective Subjective Doing much better today. Patient is alert and following commands. No inotropes or pressors. He underwent a CPAP trial for approximately 1 hour which he seemed to tolerate. Has had 2 sessions of hemodialysis his chemistry much better. CT brain yesterday showed a stable, possibly smaller subdural collection. There was no obvious source of sepsis on the CT of the chest and abdomen. ROS ROS No nausea No vomiting No pain No rash Vital Sign Vital Signs Vital Signs Date Time Temp Pulse Resp B/P Pulse Ox O2 Delivery O2 Flow Rate FiO2 08/04/16 14:00 75 30 102/51 97 Ventilator 08/04/16 12:00 97.5 97.5 Physical Exam PHYSICAL EXAM GENERAL: Intubated, 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 HEENT: Pupils reactive, scleral icterus improving NECK: Supple LUNGS: Clear HEART: S1S2 CHEST: sternotomy: D/C/I ABD: Soft, NT EXT: edema improved, warm well perfused, pedal pulses palpable ACID TREATER: Intubated,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, extremities flaccid SKIN: No rash IV: ok Labs Lab Laboratory Tests Test 08/03/16 15:55 08/03/16 16:00 08/03/16 17:00 08/03/16 17:08 Urine Collection Type Unknown Urine Color Keke Urine Clarity Turbid Urine pH 5.0 Urine Specific [place] 1.020 Urine Protein 100mg/dL (NEG-TRACE) Urine Glucose (UA) Negativemg/dL (NEG) Urine Ketones (Stick) Negativemg/dL (NEG) Urine Blood Moderate (NEG) Urine Nitrite Negative (NEG) Urine Bilirubin Small (NEG) Urine Urobilinogen Dipstick 1.0mg/dL (0.2 mg/dL) Urine Leukocyte Esterase Negative (NEG) Urine RBC 6-10/HPF (0-2) Urine WBC 0/HPF (0-4) Urine Squamous Epithelial Cells Occ/LPF Urine Amorphous Sediment Present/HPF Urine Bacteria 0/HPF (0-FEW) Urine Hyaline Casts Few/HPF Urine Granular Casts Few/HPF Urine Mucus Slight/LPF Urine Random Creatinine 60.7mg/dL (Not Estab.) White Blood Count 11.2x10^3/uL (4.0-11.0) Red Blood Count 2.69x10^6/uL (4.30-5.70) Hemoglobin 8.6g/dL (13.0-17.5) Hematocrit 26.5% (39.0-53.0) Mean Corpuscular Volume 99fL (79-100) Mean Corpuscular Hemoglobin 32pg (25-35) Mean Corpuscular Hemoglobin Concent 33g/dL (31-37) Red Cell Distribution Width 16.3% (11.5-14.5) Platelet Count 82x10^3/uL (140-400) Neutrophils (%) (Auto) 91% (31-73) Lymphocytes (%) (Auto) 5% (24-48) Monocytes (%) (Auto) 4% (0-9) Eosinophils (%) (Auto) 0% (0-3) Basophils (%) (Auto) 0% (0-3) Neutrophils # (Auto) 10.1x10^3uL (1.8-7.7) Lymphocytes # (Auto) 0.6x10^3/uL (1.0-4.8) Monocytes # (Auto) 0.4x10^3/uL (0.0-1.1) Eosinophils # (Auto) 0.0x10^3/uL (0.0-0.7) Basophils # (Auto) 0.0x10^3/uL (0.0-0.2) Segmented Neutrophils % 75% (35-66) Band Neutrophils % 16% (0-9) Lymphocytes % 7% (24-48) Monocytes % 2% (0-10) Nucleated Red Blood Cells 4 Toxic Granulation Slight Dohle Bodies Present Platelet Estimate Decreased (ADEQUATE) Polychromasia Present Poikilocytosis Slight Basophilic Stippling Present Anisocytosis Slight Sodium Level 152mmol/L (136-145) Potassium Level 5.3mmol/L (3.5-5.1) Chloride Level 113mmol/L (98-107) Carbon Dioxide Level 25mmol/L (21-32) Anion Gap 14 (6-14) Blood Urea Nitrogen 95mg/dL (8-26) Creatinine 3.6mg/dL (0.7-1.3) Estimated GFR (Cockcroft-Gault) 17.6 Glucose Level 184mg/dL (70-99) Calcium Level 7.1mg/dL (8.5-10.1) Procalcitonin 44.51ng/mL (0.00-0.10) Digoxin Level 1.9ng/mL (0.9-2.0) Digoxin Last Dose Date 08/02/16 Digoxin Last Dose Time 0856 Hepatitis B Surface Antigen Negative (Negative) Hepatitis B Surface Antibody Non reactive (.) Prothrombin Time 17.4SEC (11.7-14.0) Prothromb Time International Ratio 1.5 (0.8-1.1) Activated Partial Thromboplast Time 44SEC (24-38) Glucose (Fingerstick) 165mg/dL (70-99) Test 08/04/16 07:00 08/04/16 08:00 08/04/16 11:21 White Blood Count 6.6x10^3/uL (4.0-11.0) Red Blood Count 2.51x10^6/uL (4.30-5.70) Hemoglobin 8.0g/dL (13.0-17.5) Hematocrit 23.9% (39.0-53.0) Mean Corpuscular Volume 95fL (79-100) Mean Corpuscular Hemoglobin 32pg (25-35) Mean Corpuscular Hemoglobin Concent 34g/dL (31-37) Red Cell Distribution Width 16.2% (11.5-14.5) Platelet Count 68x10^3/uL (140-400) Neutrophils (%) (Auto) 88% (31-73) Lymphocytes (%) (Auto) 8% (24-48) Monocytes (%) (Auto) 4% (0-9) Eosinophils (%) (Auto) 1% (0-3) Basophils (%) (Auto) 0% (0-3) Neutrophils # (Auto) 5.8x10^3uL (1.8-7.7) Lymphocytes # (Auto) 0.5x10^3/uL (1.0-4.8) Monocytes # (Auto) 0.2x10^3/uL (0.0-1.1) Eosinophils # (Auto) 0.1x10^3/uL (0.0-0.7) Basophils # (Auto) 0.0x10^3/uL (0.0-0.2) Sodium Level 144mmol/L (136-145) Potassium Level 3.5mmol/L (3.5-5.1) Chloride Level 103mmol/L (98-107) Carbon Dioxide Level 30mmol/L (21-32) Anion Gap 11 (6-14) Blood Urea Nitrogen 69mg/dL (8-26) Creatinine 3.1mg/dL (0.7-1.3) Estimated GFR (Cockcroft-Gault) 20.9 BUN/Creatinine Ratio 22 (6-20) Glucose Level 186mg/dL (70-99) Calcium Level 7.2mg/dL (8.5-10.1) Phosphorus Level 7.0mg/dL (2.6-4.7) Magnesium Level 2.2mg/dL (1.8-2.4) Total Bilirubin 4.8mg/dL (0.2-1.0) Aspartate Amino Transf (AST/SGOT) 49U/L (15-37) Alanine Aminotransferase (ALT/SGPT) 96U/L (16-63) Alkaline Phosphatase 69U/L (46-116) Total Protein 4.8g/dL (6.4-8.2) Albumin 2.0g/dL (3.4-5.0) Albumin/Globulin Ratio 0.7 (1.0-1.7) O2 Saturation 94% (92-99) Arterial Blood pH 7.51 (7.35-7.45) Arterial Blood pCO2 at Patient Temp 34mmHg (35-46) Arterial Blood pO2 at Patient Temp 77mmHg (75-108) Arterial Blood HCO3 26mmol/L (21-28) Arterial Blood Base Excess 3mmol/L (-3-3) FiO2 40 Glucose (Fingerstick) 115mg/dL (70-99) Objective Assessment Status post CABG 3 for severe ischemic cardiomyopathy, large anterior STEMI with troponin of 100, with early postoperative myocardial infarction/V. fib, leading to cardiogenic shock, placement of the vein graft to the LAD and impella for mechanical circulatory support and open chest. Sternotomy has been closed and the LVAD has been removed. CT brain yesterday showed a stable, possibly smaller subdural collection. There was no obvious source of sepsis on the CT of the chest and abdomen. Doing much better today. Patient is alert and following commands. No inotropes or pressors. He underwent a CPAP trial for approximately 1 hour which he seemed to tolerate. Has had 2 sessions of hemodialysis his chemistry much better. Plan Plan of Care Will continue with CPAP trials and hopefully extubate by tomorrow. Gradually decrease pressure support during trials Will ask neurosurgery if it is safe to start DVT prophylaxis Will assess swallowing after his extubated and hopefully we can start po nutrition Hemodialysis as per nephrology Continue Milind and OLGA Mckenna MD Aug 04, 2016 14:48
[2016-08-04] MEDS: MICAFUNGIN 100 MG in IV DEXTROSE 5% 100 ML IV SCH (16:38)
--- NOTE | 2016-08-04 17:27 | PDOC ---
SUBJECTIVE Subjective Neurologically improving. OBJECTIVE Objective repeat CT head with stable/smaller SDH Vital Signs Vital Signs Date Time Temp Pulse Resp B/P Pulse Ox O2 Delivery O2 Flow Rate FiO2 08/04/16 17:09 94 Ventilator 08/04/16 16:40 94 Ventilator 08/04/16 16:08 94 Ventilator 08/04/16 15:10 94 Ventilator 08/04/16 14:15 30 96 Ventilator 08/04/16 14:00 75 30 102/51 97 Ventilator 08/04/16 13:45 30 98 Ventilator 08/04/16 13:00 77 31 110/51 97 Ventilator 08/04/16 12:10 94 Ventilator 08/04/16 12:00 97.5 76 30 125/54 98 Ventilator 97.5 08/04/16 12:00 Mechanical Ventilator 08/04/16 11:53 94 Ventilator 08/04/16 11:25 85 110/55 08/04/16 11:25 85 110/55 08/04/16 11:00 85 30 110/55 98 Ventilator 08/04/16 10:00 90 30 116/62 99 Ventilator 08/04/16 09:00 83 22 102/52 97 Ventilator 08/04/16 08:33 94 Ventilator 08/04/16 08:00 97.5 67 22 100/52 99 Ventilator 97.5 08/04/16 08:00 Mechanical Ventilator 08/04/16 07:27 99 Ventilator 08/04/16 07:00 72 20 98/56 98 Ventilator 08/04/16 06:00 97.4 74 16 112/60 100 Ventilator 97.4 08/04/16 05:00 70 19 116/64 98 Ventilator 08/04/16 04:00 97.4 72 22 116/62 98 Ventilator 97.4 08/04/16 04:00 Mechanical Ventilator 08/04/16 03:00 74 18 112/60 98 Ventilator 08/04/16 02:21 99 Ventilator 08/04/16 02:00 97.5 72 16 118/62 100 Ventilator 97.5 08/04/16 01:00 78 16 144/74 99 Ventilator 08/04/16 00:06 99 Ventilator 08/04/16 00:00 97.2 82 17 144/76 98 Ventilator 97.2 08/04/16 00:00 Mechanical Ventilator 08/03/16 23:00 84 16 152/74 99 Ventilator 08/03/16 22:00 97.4 86 16 134/72 99 Ventilator 97.4 08/03/16 21:55 79 130/67 08/03/16 21:54 89 130/67 08/03/16 21:06 99 Ventilator 08/03/16 21:00 88 28 110/62 97 Ventilator 08/03/16 20:00 Mechanical Ventilator 08/03/16 20:00 98.2 106 22 120/68 93 Ventilator 98.2 08/03/16 19:00 100 18 152/78 96 Ventilator 08/03/16 18:05 99 Ventilator 08/03/16 18:00 78 16 128/78 94 Ventilator I & O Intake and Output 08/04/16 07:00 Intake Total 2770 ml Output Total 290 ml Balance 2480 ml Intake Oral 0 ml IV Total 2220 ml Blood Product IV Normal Saline Flush 550 ml Output Urine Total 290 ml # Bowel Movements 2 PHYSICAL EXAM Physical Exam Intubated, eyes open, PERRL, AGUIRRE to command briskly ASSESSMENT/PLAN Assessment/Plan 56M with small SDH -neurologically improving and lesion radiographically stable/improved -can repeat CT head couple weeks to monitor for continued resolution (sooner if any decline/concerns noted) Problems: COMMENT Lab Laboratory Tests Test 08/04/16 07:00 08/04/16 08:00 08/04/16 11:21 White Blood Count 6.6x10^3/uL (4.0-11.0) Red Blood Count 2.51x10^6/uL (4.30-5.70) Hemoglobin 8.0g/dL (13.0-17.5) Hematocrit 23.9% (39.0-53.0) Mean Corpuscular Volume 95fL (79-100) Mean Corpuscular Hemoglobin 32pg (25-35) Mean Corpuscular Hemoglobin Concent 34g/dL (31-37) Red Cell Distribution Width 16.2% (11.5-14.5) Platelet Count 68x10^3/uL (140-400) Neutrophils (%) (Auto) 88% (31-73) Lymphocytes (%) (Auto) 8% (24-48) Monocytes (%) (Auto) 4% (0-9) Eosinophils (%) (Auto) 1% (0-3) Basophils (%) (Auto) 0% (0-3) Neutrophils # (Auto) 5.8x10^3uL (1.8-7.7) Lymphocytes # (Auto) 0.5x10^3/uL (1.0-4.8) Monocytes # (Auto) 0.2x10^3/uL (0.0-1.1) Eosinophils # (Auto) 0.1x10^3/uL (0.0-0.7) Basophils # (Auto) 0.0x10^3/uL (0.0-0.2) Sodium Level 144mmol/L (136-145) Potassium Level 3.5mmol/L (3.5-5.1) Chloride Level 103mmol/L (98-107) Carbon Dioxide Level 30mmol/L (21-32) Anion Gap 11 (6-14) Blood Urea Nitrogen 69mg/dL (8-26) Creatinine 3.1mg/dL (0.7-1.3) Estimated GFR (Cockcroft-Gault) 20.9 BUN/Creatinine Ratio 22 (6-20) Glucose Level 186mg/dL (70-99) Calcium Level 7.2mg/dL (8.5-10.1) Phosphorus Level 7.0mg/dL (2.6-4.7) Magnesium Level 2.2mg/dL (1.8-2.4) Total Bilirubin 4.8mg/dL (0.2-1.0) Aspartate Amino Transf (AST/SGOT) 49U/L (15-37) Alanine Aminotransferase (ALT/SGPT) 96U/L (16-63) Alkaline Phosphatase 69U/L (46-116) Total Protein 4.8g/dL (6.4-8.2) Albumin 2.0g/dL (3.4-5.0) Albumin/Globulin Ratio 0.7 (1.0-1.7) O2 Saturation 94% (92-99) Arterial Blood pH 7.51 (7.35-7.45) Arterial Blood pCO2 at Patient Temp 34mmHg (35-46) Arterial Blood pO2 at Patient Temp 77mmHg (75-108) Arterial Blood HCO3 26mmol/L (21-28) Arterial Blood Base Excess 3mmol/L (-3-3) FiO2 40 Glucose (Fingerstick) 115mg/dL (70-99) TYREE NELSON MD Aug 04, 2016 17:26
[2016-08-04] MEDS: HALOPERIDOL LACTATE 5 MG/ML VIAL. IVP PRN (22:08)
[2016-08-04] MEDS: METOPROLOL TARTRATE 5 MG/5 ML VIAL. IVP PRN (22:09)
[2016-08-04] MEDS: ATORVASTATIN CALCIUM 40 MG TABLET. PO SCH (22:10)
--- NOTE | 2016-08-04 22:13 | RAD ---
PROCEDURE Chest, single view. HISTORY Decreased oxygen saturation. FINDINGS A frontal view of the chest is obtained and compared to a prior study dated 08/03/2016. There is stable bilateral lower lobe infiltrate with suspected small effusions. There is an endotracheal tube within the distal trachea. There is a nasogastric tube within the stomach. There is a right PICC with the tip in the superior cavoatrial junction. There is a right internal jugular catheter with the tip in the superior cavoatrial junction. There is no pneumothorax. The heart is normal in size. There are median sternotomy changes. IMPRESSION 1. Stable suspected bilateral lower lobe infiltrate with small effusions. 2. Stable postoperative changes and support lines and tubes. Electronically signed by: Alanna Fuentes (Aug 04, 2016 22:11:45)
[2016-08-04] MEDS: HEPARIN PF for SUB-Q USE 5,000 UNIT/0.5 ML VIAL. SQ SCH (22:18)
[2016-08-05] VITALS (24 sets, daily range): BP systolic 98–168; BP diastolic 55–76
[2016-08-05] MEDS: PIPERACILLIN/TAZOBACTAM 2.25 GM in IV NORMAL SALINE 50ML 50 ML IV SCH ×5 (01:19→23:47)
[2016-08-05 06:06] LABS: BASO # 0.1 x10^3/uL (0.0-0.2); BASO % 1 % (0-3); EOS % 0 % (0-3); HEMATOCRIT 27.4 % (39.0-53.0); HEMOGLOBIN 9.2 g/dL (13.0-17.5); LYMPH # 0.2 x10^3/uL (1.0-4.8); LYMPH % 2 % (24-48); MEAN CORPUSCULAR HEMOGLOBIN 32 pg (25-35); MEAN CORPUSCULAR HGB CONC 34 g/dL (31-37); MEAN CORPUSCULAR VOLUME 96 fL (79-100); MONO % 5 % (0-9); NEUT % 92 % (31-73); PLATELET COUNT 104 x10^3/uL (140-400); RED BLOOD COUNT 2.86 x10^6/uL (4.30-5.70); RED CELL DISTRIBUTION WIDTH 16.4 % (11.5-14.5); WHITE BLOOD COUNT 10.9 x10^3/uL (4.0-11.0)
[2016-08-05 06:25] LABS: ALBUMIN 2.7 g/dL (3.4-5.0); CALCIUM 8.4 mg/dL (8.5-10.1); GFR 21.7; PHOSPHORUS 6.8 mg/dL (2.6-4.7); POTASSIUM 4.4 mmol/L (3.5-5.1)
--- NOTE | 2016-08-05 06:52 | PDOC ---
Infectious Disease Note Subjective Subjective Intubated/Alert. up all night per nursing ROS ROS unobtainable Vital Sign Vital Signs Vital Signs Date Time Temp Pulse Resp B/P Pulse Ox O2 Delivery O2 Flow Rate FiO2 08/05/16 06:00 93 23 151/73 95 Ventilator 08/05/16 04:00 98.1 98.1 Physical Exam PHYSICAL EXAM GENERAL: NAD, Alert, intubated. 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 Left leg wound clean. Chest wound dressed. Right groin previous art line site clean IV: RUE PICC, HD cath, Left art line Labs Lab Laboratory Tests Test 08/04/16 07:00 08/04/16 08:00 08/04/16 11:21 08/04/16 16:44 White Blood Count 6.6x10^3/uL (4.0-11.0) Red Blood Count 2.51x10^6/uL (4.30-5.70) Hemoglobin 8.0g/dL (13.0-17.5) Hematocrit 23.9% (39.0-53.0) Mean Corpuscular Volume 95fL (79-100) Mean Corpuscular Hemoglobin 32pg (25-35) Mean Corpuscular Hemoglobin Concent 34g/dL (31-37) Red Cell Distribution Width 16.2% (11.5-14.5) Platelet Count 68x10^3/uL (140-400) Neutrophils (%) (Auto) 88% (31-73) Lymphocytes (%) (Auto) 8% (24-48) Monocytes (%) (Auto) 4% (0-9) Eosinophils (%) (Auto) 1% (0-3) Basophils (%) (Auto) 0% (0-3) Neutrophils # (Auto) 5.8x10^3uL (1.8-7.7) Lymphocytes # (Auto) 0.5x10^3/uL (1.0-4.8) Monocytes # (Auto) 0.2x10^3/uL (0.0-1.1) Eosinophils # (Auto) 0.1x10^3/uL (0.0-0.7) Basophils # (Auto) 0.0x10^3/uL (0.0-0.2) Sodium Level 144mmol/L (136-145) Potassium Level 3.5mmol/L (3.5-5.1) Chloride Level 103mmol/L (98-107) Carbon Dioxide Level 30mmol/L (21-32) Anion Gap 11 (6-14) Blood Urea Nitrogen 69mg/dL (8-26) Creatinine 3.1mg/dL (0.7-1.3) Estimated GFR (Cockcroft-Gault) 20.9 BUN/Creatinine Ratio 22 (6-20) Glucose Level 186mg/dL (70-99) Calcium Level 7.2mg/dL (8.5-10.1) Phosphorus Level 7.0mg/dL (2.6-4.7) Magnesium Level 2.2mg/dL (1.8-2.4) Total Bilirubin 4.8mg/dL (0.2-1.0) Aspartate Amino Transf (AST/SGOT) 49U/L (15-37) Alanine Aminotransferase (ALT/SGPT) 96U/L (16-63) Alkaline Phosphatase 69U/L (46-116) Total Protein 4.8g/dL (6.4-8.2) Albumin 2.0g/dL (3.4-5.0) Albumin/Globulin Ratio 0.7 (1.0-1.7) O2 Saturation 94% (92-99) Arterial Blood pH 7.51 (7.35-7.45) Arterial Blood pCO2 at Patient Temp 34mmHg (35-46) Arterial Blood pO2 at Patient Temp 77mmHg (75-108) Arterial Blood HCO3 26mmol/L (21-28) Arterial Blood Base Excess 3mmol/L (-3-3) FiO2 40 Glucose (Fingerstick) 115mg/dL (70-99) 129mg/dL (70-99) Test 08/05/16 05:30 Sodium Level 145mmol/L (136-145) Potassium Level 4.4mmol/L (3.5-5.1) Chloride Level 105mmol/L (98-107) Carbon Dioxide Level 26mmol/L (21-32) Anion Gap 14 (6-14) Blood Urea Nitrogen 64mg/dL (8-26) Creatinine 3.0mg/dL (0.7-1.3) Estimated GFR (Cockcroft-Gault) 21.7 Glucose Level 139mg/dL (70-99) Calcium Level 8.4mg/dL (8.5-10.1) Phosphorus Level 6.8mg/dL (2.6-4.7) Albumin 2.7g/dL (3.4-5.0) Objective Assessment 1. ? sepsis on Vanc/Zosyn/Micafungin 08/02 - improved - Elevated Procalcitonin - renal failure playing into it 2. 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 Perihepatic fluid on CT abd/pelvis 4. JAKE - s/p HD 5. S/p CABG x 3 ,S/p left ventricular assist device 07/25 6. S/p Chest wound closure 07/27 7. 07/28 - S/p Left external iliac artery subtotal occlusion, s/p successful angioplasty with a 7 x 80 mm balloon. LSFA stenosis, s/p successful angioplasty with a 4.0 x 20 mm balloon Successful removal of a Impella CP percutaneous left ventricular assist device. Primary repair of common femoral artery 8. Small extra-axial fluid collection posteriorly near the right hemispheric vertex consistent with a small area of bleeding CT head 08/01 - stable on recent CT 9. Sinusitis CT 08/01 10. Resp failure -on vent 11. Afib 12. Cardiogenic shock 13. Severe three-vessel coronary artery disease 14. ST elevation myocardial infarction - intra-op 15. Severe ischemic cardiomyopathy 16. Thrombocytopenia Plan Plan of Care Consider d/c pepcid could cause platelet decrease Cont Zosyn/Micafungin Add Zyvox until Staph aureus ID as MSSA or MRSA from sputum. F/u GNR in sputum F/u cults that are pending F/u labs May need further eval of perihepatic fluid if worsens but may dissipate with fluid control Needs to sleep Critically ill but better CY MUKHERJEE MD Aug 05, 2016 06:52
[2016-08-05] MEDS: FAMOTIDINE 20 MG/2 ML VIAL IVP SCH (07:43)
[2016-08-05] MEDS: ASPIRIN 325 MG TABLET PO SCH (07:43)
[2016-08-05] MEDS: MINERAL OIL/PETROLATUM,WHITE OPHTH OINT 3.5GM TUBE. OU SCH ×2 (07:43→20:34)
[2016-08-05] MEDS: CHLORHEXIDINE 0.12% 15 ML MOUTHWASH. MM SCH ×2 (07:43→20:34)
[2016-08-05] MEDS: METOPROLOL TART IMMED RELEASE 25 MG TABLET. NG SCH ×2 (07:44→20:34)
[2016-08-05] MEDS: AMIODARONE HCL 200 MG TABLET. PO SCH ×2 (07:44→20:33)
[2016-08-05] MEDS: HEPARIN PF for SUB-Q USE 5,000 UNIT/0.5 ML VIAL. SQ SCH ×2 (07:47→20:35)
[2016-08-05] MEDS: INSULIN ASPART 300 UNITS/3 ML INSULN.PEN SQ SCH ×3 (07:54→17:00)
[2016-08-05] MEDS: IPRATROPIUM BROMIDE 0.5 MG/2.5 ML NEBU. NEB SCH ×4 (08:00→20:22)
[2016-08-05 09:06] LABS: HCO3 ABG 26 mmol/L (21-28); PCO2 ABG 39 mmHg (35-46); PH ABG 7.44 (7.35-7.45); PO2 ABG 67 mmHg (75-108); SAT O2 ABG 90 % (92-99)
--- NOTE | 2016-08-05 09:20 | PDOC ---
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 Vitals Vital Signs Vital Signs Date Time Temp Pulse Resp B/P Pulse Ox O2 Delivery O2 Flow Rate FiO2 08/05/16 08:00 101 23 168/76 94 Ventilator 08/05/16 07:00 98.1 98.1 07/31/16 06:08 2.0 Labs Last Labs Laboratory Tests Test 08/03/16 15:55 08/03/16 16:00 08/03/16 17:00 08/03/16 17:08 Urine Collection Type Unknown Urine Color Keke Urine Clarity Turbid Urine pH 5.0 Urine Specific Daisy 1.020 Urine Protein 100mg/dL (NEG-TRACE) Urine Glucose (UA) Negativemg/dL (NEG) Urine Ketones (Stick) Negativemg/dL (NEG) Urine Blood Moderate (NEG) Urine Nitrite Negative (NEG) Urine Bilirubin Small (NEG) Urine Urobilinogen Dipstick 1.0mg/dL (0.2 mg/dL) Urine Leukocyte Esterase Negative (NEG) Urine RBC 6-10/HPF (0-2) Urine WBC 0/HPF (0-4) Urine Squamous Epithelial Cells Occ/LPF Urine Amorphous Sediment Present/HPF Urine Bacteria 0/HPF (0-FEW) Urine Hyaline Casts Few/HPF Urine Granular Casts Few/HPF Urine Mucus Slight/LPF Urine Random Creatinine 60.7mg/dL (Not Estab.) Urine Random Sodium 32mmol/L (Not Estab.) White Blood Count 11.2x10^3/uL (4.0-11.0) Red Blood Count 2.69x10^6/uL (4.30-5.70) Hemoglobin 8.6g/dL (13.0-17.5) Hematocrit 26.5% (39.0-53.0) Mean Corpuscular Volume 99fL (79-100) Mean Corpuscular Hemoglobin 32pg (25-35) Mean Corpuscular Hemoglobin Concent 33g/dL (31-37) Red Cell Distribution Width 16.3% (11.5-14.5) Platelet Count 82x10^3/uL (140-400) Neutrophils (%) (Auto) 91% (31-73) Lymphocytes (%) (Auto) 5% (24-48) Monocytes (%) (Auto) 4% (0-9) Eosinophils (%) (Auto) 0% (0-3) Basophils (%) (Auto) 0% (0-3) Neutrophils # (Auto) 10.1x10^3uL (1.8-7.7) Lymphocytes # (Auto) 0.6x10^3/uL (1.0-4.8) Monocytes # (Auto) 0.4x10^3/uL (0.0-1.1) Eosinophils # (Auto) 0.0x10^3/uL (0.0-0.7) Basophils # (Auto) 0.0x10^3/uL (0.0-0.2) Segmented Neutrophils % 75% (35-66) Band Neutrophils % 16% (0-9) Lymphocytes % 7% (24-48) Monocytes % 2% (0-10) Nucleated Red Blood Cells 4 Toxic Granulation Slight Dohle Bodies Present Platelet Estimate Decreased (ADEQUATE) Polychromasia Present Poikilocytosis Slight Basophilic Stippling Present Anisocytosis Slight Sodium Level 152mmol/L (136-145) Potassium Level 5.3mmol/L (3.5-5.1) Chloride Level 113mmol/L (98-107) Carbon Dioxide Level 25mmol/L (21-32) Anion Gap 14 (6-14) Blood Urea Nitrogen 95mg/dL (8-26) Creatinine 3.6mg/dL (0.7-1.3) Estimated GFR (Cockcroft-Gault) 17.6 Glucose Level 184mg/dL (70-99) Calcium Level 7.1mg/dL (8.5-10.1) Procalcitonin 44.51ng/mL (0.00-0.10) Digoxin Level 1.9ng/mL (0.9-2.0) Digoxin Last Dose Date 08/02/16 Digoxin Last Dose Time 0856 Hepatitis B Surface Antigen Negative (Negative) Hepatitis B Surface Antibody Non reactive (.) Prothrombin Time 17.4SEC (11.7-14.0) Prothromb Time International Ratio 1.5 (0.8-1.1) Activated Partial Thromboplast Time 44SEC (24-38) Glucose (Fingerstick) 165mg/dL (70-99) Test 08/04/16 07:00 08/04/16 08:00 08/04/16 11:21 08/04/16 16:44 White Blood Count 6.6x10^3/uL (4.0-11.0) Red Blood Count 2.51x10^6/uL (4.30-5.70) Hemoglobin 8.0g/dL (13.0-17.5) Hematocrit 23.9% (39.0-53.0) Mean Corpuscular Volume 95fL (79-100) Mean Corpuscular Hemoglobin 32pg (25-35) Mean Corpuscular Hemoglobin Concent 34g/dL (31-37) Red Cell Distribution Width 16.2% (11.5-14.5) Platelet Count 68x10^3/uL (140-400) Neutrophils (%) (Auto) 88% (31-73) Lymphocytes (%) (Auto) 8% (24-48) Monocytes (%) (Auto) 4% (0-9) Eosinophils (%) (Auto) 1% (0-3) Basophils (%) (Auto) 0% (0-3) Neutrophils # (Auto) 5.8x10^3uL (1.8-7.7) Lymphocytes # (Auto) 0.5x10^3/uL (1.0-4.8) Monocytes # (Auto) 0.2x10^3/uL (0.0-1.1) Eosinophils # (Auto) 0.1x10^3/uL (0.0-0.7) Basophils # (Auto) 0.0x10^3/uL (0.0-0.2) Sodium Level 144mmol/L (136-145) Potassium Level 3.5mmol/L (3.5-5.1) Chloride Level 103mmol/L (98-107) Carbon Dioxide Level 30mmol/L (21-32) Anion Gap 11 (6-14) Blood Urea Nitrogen 69mg/dL (8-26) Creatinine 3.1mg/dL (0.7-1.3) Estimated GFR (Cockcroft-Gault) 20.9 BUN/Creatinine Ratio 22 (6-20) Glucose Level 186mg/dL (70-99) Calcium Level 7.2mg/dL (8.5-10.1) Phosphorus Level 7.0mg/dL (2.6-4.7) Magnesium Level 2.2mg/dL (1.8-2.4) Total Bilirubin 4.8mg/dL (0.2-1.0) Aspartate Amino Transf (AST/SGOT) 49U/L (15-37) Alanine Aminotransferase (ALT/SGPT) 96U/L (16-63) Alkaline Phosphatase 69U/L (46-116) Total Protein 4.8g/dL (6.4-8.2) Albumin 2.0g/dL (3.4-5.0) Albumin/Globulin Ratio 0.7 (1.0-1.7) O2 Saturation 94% (92-99) Arterial Blood pH 7.51 (7.35-7.45) Arterial Blood pCO2 at Patient Temp 34mmHg (35-46) Arterial Blood pO2 at Patient Temp 77mmHg (75-108) Arterial Blood HCO3 26mmol/L (21-28) Arterial Blood Base Excess 3mmol/L (-3-3) FiO2 40 Glucose (Fingerstick) 115mg/dL (70-99) 129mg/dL (70-99) Test 08/05/16 05:30 White Blood Count 10.9x10^3/uL (4.0-11.0) Red Blood Count 2.86x10^6/uL (4.30-5.70) Hemoglobin 9.2g/dL (13.0-17.5) Hematocrit 27.4% (39.0-53.0) Mean Corpuscular Volume 96fL (79-100) Mean Corpuscular Hemoglobin 32pg (25-35) Mean Corpuscular Hemoglobin Concent 34g/dL (31-37) Red Cell Distribution Width 16.4% (11.5-14.5) Platelet Count 104x10^3/uL (140-400) Neutrophils (%) (Auto) 92% (31-73) Lymphocytes (%) (Auto) 2% (24-48) Monocytes (%) (Auto) 5% (0-9) Eosinophils (%) (Auto) 0% (0-3) Basophils (%) (Auto) 1% (0-3) Neutrophils # (Auto) 10.1x10^3uL (1.8-7.7) Lymphocytes # (Auto) 0.2x10^3/uL (1.0-4.8) Monocytes # (Auto) 0.5x10^3/uL (0.0-1.1) Eosinophils # (Auto) 0.0x10^3/uL (0.0-0.7) Basophils # (Auto) 0.1x10^3/uL (0.0-0.2) Sodium Level 145mmol/L (136-145) Potassium Level 4.4mmol/L (3.5-5.1) Chloride Level 105mmol/L (98-107) Carbon Dioxide Level 26mmol/L (21-32) Anion Gap 14 (6-14) Blood Urea Nitrogen 64mg/dL (8-26) Creatinine 3.0mg/dL (0.7-1.3) Estimated GFR (Cockcroft-Gault) 21.7 Glucose Level 139mg/dL (70-99) Calcium Level 8.4mg/dL (8.5-10.1) Phosphorus Level 6.8mg/dL (2.6-4.7) Albumin 2.7g/dL (3.4-5.0) Laboratory Tests Test 08/04/16 11:21 08/04/16 16:44 08/05/16 05:30 Glucose (Fingerstick) 115mg/dL (70-99) 129mg/dL (70-99) White Blood Count 10.9x10^3/uL (4.0-11.0) Red Blood Count 2.86x10^6/uL (4.30-5.70) Hemoglobin 9.2g/dL (13.0-17.5) Hematocrit 27.4% (39.0-53.0) Mean Corpuscular Volume 96fL (79-100) Mean Corpuscular Hemoglobin 32pg (25-35) Mean Corpuscular Hemoglobin Concent 34g/dL (31-37) Red Cell Distribution Width 16.4% (11.5-14.5) Platelet Count 104x10^3/uL (140-400) Neutrophils (%) (Auto) 92% (31-73) Lymphocytes (%) (Auto) 2% (24-48) Monocytes (%) (Auto) 5% (0-9) Eosinophils (%) (Auto) 0% (0-3) Basophils (%) (Auto) 1% (0-3) Neutrophils # (Auto) 10.1x10^3uL (1.8-7.7) Lymphocytes # (Auto) 0.2x10^3/uL (1.0-4.8) Monocytes # (Auto) 0.5x10^3/uL (0.0-1.1) Eosinophils # (Auto) 0.0x10^3/uL (0.0-0.7) Basophils # (Auto) 0.1x10^3/uL (0.0-0.2) Sodium Level 145mmol/L (136-145) Potassium Level 4.4mmol/L (3.5-5.1) Chloride Level 105mmol/L (98-107) Carbon Dioxide Level 26mmol/L (21-32) Anion Gap 14 (6-14) Blood Urea Nitrogen 64mg/dL (8-26) Creatinine 3.0mg/dL (0.7-1.3) Estimated GFR (Cockcroft-Gault) 21.7 Glucose Level 139mg/dL (70-99) Calcium Level 8.4mg/dL (8.5-10.1) Phosphorus Level 6.8mg/dL (2.6-4.7) Albumin 2.7g/dL (3.4-5.0) Assessment Assessment Problems Medical Problems: (1) CAD (coronary artery disease), [place] coronary artery Status: Acute (2) Chest pain Status: Acute (3) STEMI (ST elevation myocardial infarction) Status: Acute Problems: Plan Plan of Care Problems Medical Problems: (1) CAD (coronary artery disease), [place] coronary artery Status: Acute (2) Chest pain Status: Acute (3) STEMI (ST elevation myocardial infarction) Status: Acute ELIZABETH LOPEZ MD Aug 05, 2016 09:20
[2016-08-05 09:29] LABS: FIO2 ABG 35
--- NOTE | 2016-08-05 10:40 | PDOC ---
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 EOMI. CN: no focal findings. Muscle tone: normal. Muscle strength: moves all extremities to command, 2/5 strength DTR: 1+ Plantar reflex: silent Gait: not examined in bed. Sensory exam: stocking glove loss. No cerebellar signs elicited. Review of Relevant I have reviewed the following items leonidas (where applicable) has been applied. Labs Laboratory Tests Test 08/03/16 15:55 08/03/16 16:00 08/03/16 17:00 08/03/16 17:08 Urine Collection Type Unknown Urine Color [place] Urine Clarity Turbid Urine pH 5.0 Urine Specific [place] 1.020 Urine Protein 100mg/dL (NEG-TRACE) Urine Glucose (UA) Negativemg/dL (NEG) Urine Ketones (Stick) Negativemg/dL (NEG) Urine Blood Moderate (NEG) Urine Nitrite Negative (NEG) Urine Bilirubin Small (NEG) Urine Urobilinogen Dipstick 1.0mg/dL (0.2 mg/dL) Urine Leukocyte Esterase Negative (NEG) Urine RBC 6-10/HPF (0-2) Urine WBC 0/HPF (0-4) Urine Squamous Epithelial Cells Occ/LPF Urine Amorphous Sediment Present/HPF Urine Bacteria 0/HPF (0-FEW) Urine Hyaline Casts Few/HPF Urine Granular Casts Few/HPF Urine Mucus Slight/LPF Urine Random Creatinine 60.7mg/dL (Not Estab.) Urine Random Sodium 32mmol/L (Not Estab.) White Blood Count 11.2x10^3/uL (4.0-11.0) Red Blood Count 2.69x10^6/uL (4.30-5.70) Hemoglobin 8.6g/dL (13.0-17.5) Hematocrit 26.5% (39.0-53.0) Mean Corpuscular Volume 99fL (79-100) Mean Corpuscular Hemoglobin 32pg (25-35) Mean Corpuscular Hemoglobin Concent 33g/dL (31-37) Red Cell Distribution Width 16.3% (11.5-14.5) Platelet Count 82x10^3/uL (140-400) Neutrophils (%) (Auto) 91% (31-73) Lymphocytes (%) (Auto) 5% (24-48) Monocytes (%) (Auto) 4% (0-9) Eosinophils (%) (Auto) 0% (0-3) Basophils (%) (Auto) 0% (0-3) Neutrophils # (Auto) 10.1x10^3uL (1.8-7.7) Lymphocytes # (Auto) 0.6x10^3/uL (1.0-4.8) Monocytes # (Auto) 0.4x10^3/uL (0.0-1.1) Eosinophils # (Auto) 0.0x10^3/uL (0.0-0.7) Basophils # (Auto) 0.0x10^3/uL (0.0-0.2) Segmented Neutrophils % 75% (35-66) Band Neutrophils % 16% (0-9) Lymphocytes % 7% (24-48) Monocytes % 2% (0-10) Nucleated Red Blood Cells 4 Toxic Granulation Slight Dohle Bodies Present Platelet Estimate Decreased (ADEQUATE) Polychromasia Present Poikilocytosis Slight Basophilic Stippling Present Anisocytosis Slight Sodium Level 152mmol/L (136-145) Potassium Level 5.3mmol/L (3.5-5.1) Chloride Level 113mmol/L (98-107) Carbon Dioxide Level 25mmol/L (21-32) Anion Gap 14 (6-14) Blood Urea Nitrogen 95mg/dL (8-26) Creatinine 3.6mg/dL (0.7-1.3) Estimated GFR (Cockcroft-Gault) 17.6 Glucose Level 184mg/dL (70-99) Calcium Level 7.1mg/dL (8.5-10.1) Procalcitonin 44.51ng/mL (0.00-0.10) Digoxin Level 1.9ng/mL (0.9-2.0) Digoxin Last Dose Date 08/02/16 Digoxin Last Dose Time 0856 Hepatitis B Surface Antigen Negative (Negative) Hepatitis B Surface Antibody Non reactive (.) Prothrombin Time 17.4SEC (11.7-14.0) Prothromb Time International Ratio 1.5 (0.8-1.1) Activated Partial Thromboplast Time 44SEC (24-38) Glucose (Fingerstick) 165mg/dL (70-99) Test 08/04/16 07:00 08/04/16 08:00 08/04/16 11:21 08/04/16 16:44 White Blood Count 6.6x10^3/uL (4.0-11.0) Red Blood Count 2.51x10^6/uL (4.30-5.70) Hemoglobin 8.0g/dL (13.0-17.5) Hematocrit 23.9% (39.0-53.0) Mean Corpuscular Volume 95fL (79-100) Mean Corpuscular Hemoglobin 32pg (25-35) Mean Corpuscular Hemoglobin Concent 34g/dL (31-37) Red Cell Distribution Width 16.2% (11.5-14.5) Platelet Count 68x10^3/uL (140-400) Neutrophils (%) (Auto) 88% (31-73) Lymphocytes (%) (Auto) 8% (24-48) Monocytes (%) (Auto) 4% (0-9) Eosinophils (%) (Auto) 1% (0-3) Basophils (%) (Auto) 0% (0-3) Neutrophils # (Auto) 5.8x10^3uL (1.8-7.7) Lymphocytes # (Auto) 0.5x10^3/uL (1.0-4.8) Monocytes # (Auto) 0.2x10^3/uL (0.0-1.1) Eosinophils # (Auto) 0.1x10^3/uL (0.0-0.7) Basophils # (Auto) 0.0x10^3/uL (0.0-0.2) Sodium Level 144mmol/L (136-145) Potassium Level 3.5mmol/L (3.5-5.1) Chloride Level 103mmol/L (98-107) Carbon Dioxide Level 30mmol/L (21-32) Anion Gap 11 (6-14) Blood Urea Nitrogen 69mg/dL (8-26) Creatinine 3.1mg/dL (0.7-1.3) Estimated GFR (Cockcroft-Gault) 20.9 BUN/Creatinine Ratio 22 (6-20) Glucose Level 186mg/dL (70-99) Calcium Level 7.2mg/dL (8.5-10.1) Phosphorus Level 7.0mg/dL (2.6-4.7) Magnesium Level 2.2mg/dL (1.8-2.4) Total Bilirubin 4.8mg/dL (0.2-1.0) Aspartate Amino Transf (AST/SGOT) 49U/L (15-37) Alanine Aminotransferase (ALT/SGPT) 96U/L (16-63) Alkaline Phosphatase 69U/L (46-116) Total Protein 4.8g/dL (6.4-8.2) Albumin 2.0g/dL (3.4-5.0) Albumin/Globulin Ratio 0.7 (1.0-1.7) O2 Saturation 94% (92-99) Arterial Blood pH 7.51 (7.35-7.45) Arterial Blood pCO2 at Patient Temp 34mmHg (35-46) Arterial Blood pO2 at Patient Temp 77mmHg (75-108) Arterial Blood HCO3 26mmol/L (21-28) Arterial Blood Base Excess 3mmol/L (-3-3) FiO2 40 Glucose (Fingerstick) 115mg/dL (70-99) 129mg/dL (70-99) Test 08/05/16 05:30 08/05/16 09:00 White Blood Count 10.9x10^3/uL (4.0-11.0) Red Blood Count 2.86x10^6/uL (4.30-5.70) Hemoglobin 9.2g/dL (13.0-17.5) Hematocrit 27.4% (39.0-53.0) Mean Corpuscular Volume 96fL (79-100) Mean Corpuscular Hemoglobin 32pg (25-35) Mean Corpuscular Hemoglobin Concent 34g/dL (31-37) Red Cell Distribution Width 16.4% (11.5-14.5) Platelet Count 104x10^3/uL (140-400) Neutrophils (%) (Auto) 92% (31-73) Lymphocytes (%) (Auto) 2% (24-48) Monocytes (%) (Auto) 5% (0-9) Eosinophils (%) (Auto) 0% (0-3) Basophils (%) (Auto) 1% (0-3) Neutrophils # (Auto) 10.1x10^3uL (1.8-7.7) Lymphocytes # (Auto) 0.2x10^3/uL (1.0-4.8) Monocytes # (Auto) 0.5x10^3/uL (0.0-1.1) Eosinophils # (Auto) 0.0x10^3/uL (0.0-0.7) Basophils # (Auto) 0.1x10^3/uL (0.0-0.2) Sodium Level 145mmol/L (136-145) Potassium Level 4.4mmol/L (3.5-5.1) Chloride Level 105mmol/L (98-107) Carbon Dioxide Level 26mmol/L (21-32) Anion Gap 14 (6-14) Blood Urea Nitrogen 64mg/dL (8-26) Creatinine 3.0mg/dL (0.7-1.3) Estimated GFR (Cockcroft-Gault) 21.7 Glucose Level 139mg/dL (70-99) Calcium Level 8.4mg/dL (8.5-10.1) Phosphorus Level 6.8mg/dL (2.6-4.7) Albumin 2.7g/dL (3.4-5.0) O2 Saturation 90% (92-99) Arterial Blood pH 7.44 (7.35-7.45) Arterial Blood pCO2 at Patient Temp 39mmHg (35-46) Arterial Blood pO2 at Patient Temp 67mmHg (75-108) Arterial Blood HCO3 26mmol/L (21-28) Arterial Blood Base Excess 2mmol/L (-3-3) FiO2 35 Laboratory Tests Test 08/04/16 11:21 08/04/16 16:44 08/05/16 05:30 08/05/16 09:00 Glucose (Fingerstick) 115mg/dL (70-99) 129mg/dL (70-99) White Blood Count 10.9x10^3/uL (4.0-11.0) Red Blood Count 2.86x10^6/uL (4.30-5.70) Hemoglobin 9.2g/dL (13.0-17.5) Hematocrit 27.4% (39.0-53.0) Mean Corpuscular Volume 96fL (79-100) Mean Corpuscular Hemoglobin 32pg (25-35) Mean Corpuscular Hemoglobin Concent 34g/dL (31-37) Red Cell Distribution Width 16.4% (11.5-14.5) Platelet Count 104x10^3/uL (140-400) Neutrophils (%) (Auto) 92% (31-73) Lymphocytes (%) (Auto) 2% (24-48) Monocytes (%) (Auto) 5% (0-9) Eosinophils (%) (Auto) 0% (0-3) Basophils (%) (Auto) 1% (0-3) Neutrophils # (Auto) 10.1x10^3uL (1.8-7.7) Lymphocytes # (Auto) 0.2x10^3/uL (1.0-4.8) Monocytes # (Auto) 0.5x10^3/uL (0.0-1.1) Eosinophils # (Auto) 0.0x10^3/uL (0.0-0.7) Basophils # (Auto) 0.1x10^3/uL (0.0-0.2) Sodium Level 145mmol/L (136-145) Potassium Level 4.4mmol/L (3.5-5.1) Chloride Level 105mmol/L (98-107) Carbon Dioxide Level 26mmol/L (21-32) Anion Gap 14 (6-14) Blood Urea Nitrogen 64mg/dL (8-26) Creatinine 3.0mg/dL (0.7-1.3) Estimated GFR (Cockcroft-Gault) 21.7 Glucose Level 139mg/dL (70-99) Calcium Level 8.4mg/dL (8.5-10.1) Phosphorus Level 6.8mg/dL (2.6-4.7) Albumin 2.7g/dL (3.4-5.0) O2 Saturation 90% (92-99) Arterial Blood pH 7.44 (7.35-7.45) Arterial Blood pCO2 at Patient Temp 39mmHg (35-46) Arterial Blood pO2 at Patient Temp 67mmHg (75-108) Arterial Blood HCO3 26mmol/L (21-28) Arterial Blood Base Excess 2mmol/L (-3-3) FiO2 35 Microbiology 08/02/16 Blood Culture - Preliminary, Resulted NO GROWTH AFTER 2 DAYS 08/03/16 Sputum Culture - Preliminary, Resulted 08/03/16 Sputum Result 1 - Preliminary, Resulted 08/03/16 Sputum Result 2 - Preliminary, Resulted 08/02/16 Urine Culture - Preliminary, Resulted 08/02/16 Urine Culture Result 1 (MILEY) - Preliminary, Resulted 08/03/16 Gram Stain - Final, Complete Medications Current Medications Nitroglycerin 0.4 mg 0.4 mg PRN Q5MIN PRN SL CP RATING > 1/10; Start 07/20/16 at 09:45; Stop 07/20/16 at 15:05; Status DC Nitroglycerin/ Dextrose (Nitroglycerin Drip) 250 ml @ 3 mls/hr 1X ONCE IV Last administered on 07/20/16t 10:02; Start 07/20/16 at 10:30; Stop 07/23/16 at 21: 49; Status DC Morphine Sulfate 2 mg PRN Q15MIN PRN IV/SQ PAIN GREATER THAN 3/10; Start at 09:45; Stop 07/21/16 at 09:44; Status DC Ondansetron HCl (Zofran) 4 mg PRN Q8HRS PRN IV NAUSEA/VOMITING; Start 07/20/16 at 12:30; Stop 07/20/16 at 13:36; Status DC Morphine Sulfate 2 mg 2 mg PRN Q2HR PRN IV PAIN; Start 07/20/16 at 12:30; Stop 07/21/16 at 12:29; Status DC Heparin Sodium/ Dextrose 500 ml @ 0 mls/hr CONT PRN IV . Last administered on 10:32; Start 07/20/16 at 13:00; Stop 07/21/16 at 14:50; Status DC Metoprolol Tartrate (Lopressor) 5 mg Q6HRS IVP ; Start 07/20/16 at 13:00; Stop at 14:53; Status DC Aspirin (Ecotrin) 325 mg [id number] PO Last administered on 07/21/16 08:11; Start 07/20/16 at 13:00; Stop 07/21/16 at 17:20; Status DC Ondansetron HCl (Zofran) 4 mg PRN Q6HRS PRN IV NAUSEA/VOMITING; Start 07/20/16 at 13:35; Stop 07/26/16 at 11:41; Status DC Acetaminophen (Tylenol) 500 mg PRN Q6HRS PRN PO MILD PAIN / TEMP Last administered on 07/29/16 09:55; Start 07/20/16 at 13:45; Stop 07/29/16 at 13:38 ; Status DC Docusate Sodium (Colace) 100 mg DAILY PO Last administered on 07/29/16 09:54; Start 07/20/16 at 15:00; Stop 07/29/16 at 10:03; Status DC Iohexol 100 ml 100 ml STK-MED ONCE .ROUTE ; Start 07/20/16 at 12:40; Stop at 13:44; Status DC Heparin Sodium/ Sodium Chloride 1,000 ml @ As Directed STK-MED ONCE .ROUTE ; Start 07/20/16 at 12:41; Stop 07/20/16 at 13:44; Status DC Lidocaine HCl 20 ml STK-MED ONCE .ROUTE ; Start 07/20/16 at 12:41; Stop 07/20/16 at 13:44; Status DC Fentanyl Citrate (Fentanyl 2ml Vial) 100 mcg STK-MED ONCE .ROUTE ; Start at 13:42; Stop 07/20/16 at 13:45; Status DC Midazolam HCl (Versed) 2 mg STK-MED ONCE .ROUTE ; Start 07/20/16 at 13:42; Stop 07/20/16 at 13:45; Status DC Heparin Sodium/ Sodium Chloride 1,000 unit 1X ONCE IART Last administered on 14:29; Start 07/20/16 at 14:00; Stop 07/20/16 at 14:01; Status DC Heparin Sodium/ Sodium Chloride 1,000 unit 1X ONCE IART Last administered on 14:29; Start 07/20/16 at 14:00; Stop 07/20/16 at 14:01; Status DC Midazolam HCl (Versed) 2 mg 1X ONCE IV Last administered on 07/20/16 14:28; Start 07/20/16 at 14:00; Stop 07/20/16 at 14:01; Status DC Fentanyl Citrate (Fentanyl 2ml Vial) 100 mcg 1X ONCE IV Last administered on 14:28; Start 07/20/16 at 14:00; Stop 07/20/16 at 14:01; Status DC Iohexol (Omnipaque 300 Mg/ml) 100 ml 1X ONCE IART Last administered on 14:29; Start 07/20/16 at 14:00; Stop 07/20/16 at 14:01; Status DC Lidocaine HCl 20 ml 1X ONCE IJ Last administered on 07/20/16 14:29; Start 07/20 at 14:00; Stop 07/20/16 at 14:01; Status DC Midazolam HCl (Versed) 2 mg STK-MED ONCE .ROUTE ; Start 07/20/16 at 14:15; Stop 07/20/16 at 14:16; Status DC Sodium Chloride 3 ml 3 ml QSHIFT PRN IV AFTER MEDS AND BLOOD DRAWS; Start at 14:45; Stop 07/29/16 at 13:51; Status DC Sodium Chloride (Iv Sodium Chloride 0.9% 1000ml Bag) 1,000 ml @ 60 mls/hr [id number] IV Last administered on 07/20/16 14:44; Start 07/20/16 at 14:44; Stop at 00:43; Status DC Metoprolol Tartrate (Lopressor) 12.5 mg BID PO ; Start 07/20/16 at 21:00; Stop at 21:00; Status DC Lisinopril (Prinivil) 5 mg DAILY PO Last administered on 07/20/16 16:25; Start 07/20/16 at 15:00; Stop 07/20/16 at 17:21; Status DC Atorvastatin Calcium (Lipitor) 20 mg QHS PO Last administered on 07/20/16 20:33 ; Start 07/20/16 at 21:00; Stop 07/21/16 at 08:11; Status DC Nitroglycerin (Nitrostat) 0.4 mg PRN Q5MIN PRN SL CHEST PAIN Last administered on 07/25/16 04:55; Start 07/20/16 at 14:45; Stop 07/26/16 at 11:41; Status DC Hydralazine HCl (Apresoline) 10 mg PRN Q4HRS PRN IVP ELEVATED BP, SEE COMMENTS Last administered on 07/31/16 10:58; Start 07/20/16 at 17:15; Stop 07/31/16 at 13:31; Status DC Metoprolol Tartrate (Lopressor) 50 mg BID PO Last administered on 07/22/16 08: 31; Start 07/20/16 at 21:00; Stop 07/22/16 at 19:03; Status DC Alprazolam (Xanax) 0.25 mg PRN Q8HRS PRN PO ANXIETY / AGITATION Last administered on 07/24/16 21:34; Start 07/20/16 at 17:30; Stop 07/29/16 at 13:38; Status DC Heparin Sodium (Porcine) 2050 unit 2,050 unit PRN Q6HRS PRN IV FOR UFH LEVEL LESS THAN 0.2 Last administered on 07/21/16 04:24; Start 07/20/16 at 19:45; Stop 07/26/16 at 08:55; Status DC Heparin Sodium/ Dextrose 500 ml @ 19.4 mls/hr CONT PRN IV SEE I/O RECORD; Start 07/20/16 at 19:45; Stop 07/21/16 at 16:24; Status DC Heparin Sodium (Porcine) (Heparin Sodium) 2,050 unit PRN Q6HRS PRN IV FOR UFH LEVEL LESS THAN 0.2; Start 07/20/16 at 19:45; Status UNV Atorvastatin Calcium (Lipitor) 40 mg QHS PO Last administered on 08/04/16 22: 10; Start 07/21/16 at 21:00 Iodixanol (Visipaque 320) 200 ml STK-MED ONCE .ROUTE ; Start 07/20/16 at 14:00; Stop 07/21/16 at 08:26; Status DC Zolpidem Tartrate (Ambien) 5 mg PRN QHS PRN PO INSOMNIA, MAY REPEAT IN 1HR; Start 07/21/16 at 15:30; Stop 07/29/16 at 13:38; Status DC Metoprolol Tartrate 25 mg 25 mg 1X ONCE PO ; Start 07/22/16 at 06:00; Stop at 06:02; Status DC Cefazolin Sodium/ Dextrose 50 ml @ 100 mls/hr 1X ONCE IV ; Start 07/22/16 at 06 :00; Stop 07/22/16 at 06:29; Status DC Heparin Sodium/ Dextrose 500 ml @ 0 mls/hr CONT PRN IV SEE I/O RECORD Last administered on 07/24/16 01:40; Start 07/21/16 at 16:30; Stop 07/26/16 at 08:55; Status DC Lidocaine HCl 2 ml 2 ml 1X PRN PRN ID IV START; Start 07/25/16 at 06:00; Stop 07/26/16 at 05:59; Status Cancel Lactated Ringer's (Iv Lactated Ringers) 1,000 ml @ 0 mls/hr Q0M IV Last administered on 07/25/16 07:30; Start 07/25/16 at 06:00; Stop 07/25/16 at 17:59 ; Status DC Fentanyl Citrate (Fentanyl 2ml Vial) 25 mcg PRN Q5MIN PRN IV Acute Pain; Start 07/22/16 at 09:15; Stop 07/23/16 at 09:14; Status DC Morphine Sulfate 2 mg PRN Q10MIN PRN IV Mild Pain; Start 07/22/16 at 09:15; Stop 07/23/16 at 09:14; Status DC Hydromorphone HCl (Dilaudid) 0.4 mg PRN Q10MIN PRN IV Moderate to severe pain; Start 07/22/16 at 09:15; Stop 07/23/16 at 09:14; Status DC Ondansetron HCl (Zofran) 4 mg PRN Q6HRS PRN IV Nausea, 1st Choice; Start at 09:15; Stop 07/23/16 at 09:14; Status DC Prochlorperazine Edisylate (Compazine) 5 mg PRN Q6HRS PRN IV Nausea/Vomiting, 2nd Choice; Start 07/22/16 at 09:15; Stop 07/23/16 at 09:14; Status DC Ondansetron HCl (Zofran) 4 mg PRN Q6HRS PRN IV NAUSEA/VOMITING; Start 07/25/16 at 07:00; Stop 07/26/16 at 06:59; Status DC Fentanyl Citrate (Fentanyl 2ml Vial) 25 mcg PRN Q5MIN PRN IV MILD PAIN; Start 07/25/16 at 07:00; Stop 07/26/16 at 06:59; Status DC Fentanyl Citrate (Fentanyl 2ml Vial) 50 mcg PRN Q5MIN PRN IV MODERATE PAIN; Start 07/25/16 at 07:00; Stop 07/26/16 at 06:59; Status DC Morphine Sulfate 1 mg 1 mg PRN Q10MIN PRN IV SEVERE PAIN; Start 07/25/16 at 07: 00; Stop 07/25/16 at 20:28; Status DC Lactated Ringer's (Iv Lactated Ringers) 1,000 ml @ 0 mls/hr Q0M IV ; Start 01/31 at 07:00; Stop 07/25/16 at 18:59; Status Cancel Lidocaine HCl 2 ml PRN 1X PRN ID PRIOR TO IV START Last administered on t 07:16; Start 07/25/16 at 07:00; Stop 07/26/16 at 06:59; Status DC Hydromorphone HCl (Dilaudid) 0.5 mg PRN Q10MIN PRN IV SEV PAIN, Second choice; Start 07/25/16 at 07:00; Stop 07/26/16 at 06:59; Status DC Prochlorperazine Edisylate 5 mg 5 mg PACU PRN PRN IV NAUSEA, MRX1; Start at 07:00; Stop 07/26/16 at 06:59; Status DC Cefazolin Sodium/ Dextrose (Ancef 2gm Premix) 50 ml @ 100 mls/hr 1X ONCE IV Last administered on 07/25/16 08:12; Start 07/25/16 at 06:00; Stop 07/25/16 at 06:29; Status DC Metoprolol Tartrate (Lopressor) 25 mg 1X ONCE PO ; Start 07/25/16 at 06:00; Stop 07/25/16 at 06:00; Status DC Metoprolol Tartrate (Lopressor) 2.5 mg 1X ONCE IVP Last administered on 16:30; Start 07/22/16 at 16:30; Stop 07/22/16 at 16:31; Status DC Digoxin (Lanoxin) 250 mcg 1X ONCE IV ; Start 07/22/16 at 18:30; Stop 07/22/16 at 18:42; Status DC Digoxin (Lanoxin) 500 mcg 1X ONCE IV Last administered on 07/22/16 18:47; Start 07/22/16 at 18:45; Stop 07/22/16 at 18:46; Status DC Metoprolol Tartrate (Lopressor) 75 mg BID PO Last administered on 07/24/16 21: 30; Start 07/22/16 at 21:00; Stop 07/25/16 at 13:12; Status DC Nitroglycerin 0.4 mg 0.4 mg PRN Q5MIN PRN SL CHEST PAIN; Start 07/23/16 at 12:00 ; Status UNV Heparin Sodium (Porcine) 69490 unit/Lactated Ringer's 1,020 ml @ 1,020 mls/hr 1X PERIOP ONCE IRR Last administered on 07/25/16 08:46; Start 07/25/16 at 06: 00; Stop 07/25/16 at 06:59; Status DC Potassium Chloride 70 meq/ Sodium Bicarbonate 12.5 meq/Lidocaine HCl 24 ml/ Parenteral Electrolytes 571.5 ml @ 571.5 mls/ hr 1X PERIOP ONCE IRR ; Start at 06:00; Stop 07/25/16 at 06:59; Status DC Potassium Chloride/Sodium Bicarbonate/ Parenteral Electrolytes (Isolyte S) 520 ml @ 520 mls/hr 1X PERIOP ONCE IRR ; Start 07/25/16 at 06:00; Stop 07/25/16 at 06:59; Status DC Etomidate (Amidate) 20 mg STK-MED ONCE IV ; Start 07/25/16 at 06:08; Stop at 06:09; Status DC Phenylephrine HCl (-Synephrine Inj) 10 mg STK-MED ONCE .ROUTE ; Start at 06:08; Stop 07/25/16 at 06:09; Status DC Aminocaproic Acid (Amicar) 5,000 mg STK-MED ONCE IV ; Start 07/25/16 at 06:08; Stop 07/25/16 at 06:09; Status DC Heparin Sodium (Porcine) (Heparin Sodium) 10,000 unit STK-MED ONCE .ROUTE ; Start 07/25/16 at 06:10; Stop 07/25/16 at 06:11; Status DC Rocuronium [place] (Zemuron) 100 mg STK-MED ONCE .ROUTE ; Start 07/25/16 at 06: 11; Stop 07/25/16 at 06:12; Status DC Morphine Sulfate 4 mg STK-MED ONCE .ROUTE ; Start 07/25/16 at 06:59; Stop at 07:00; Status DC Morphine Sulfate 4 mg 4 mg 1X ONCE IV ; Start 07/25/16 at 07:15; Stop 07/25/16 at 07:16; Status DC Cefazolin Sodium/ Sodium Chloride (Ancef/Iv Sodium Chloride 0.9% 500ml Bag) 500 ml @ 500 mls/hr 1X PERIOP ONCE IRR Last administered on 07/25/16 08:46; Start 07/25/16 at 07:15; Stop 07/25/16 at 08:14; Status DC Cellulose 1 each STK-MED ONCE .ROUTE Last administered on 07/25/16 08:46; Start 07/25/16 at 07:07; Stop 07/25/16 at 07:08; Status DC Vancomycin HCl (Vanco) 10 gm STK-MED ONCE .ROUTE Last administered on 08:46; Start 07/25/16 at 07:07; Stop 07/25/16 at 07:08; Status DC Papaverine HCl 60 mg STK-MED ONCE .ROUTE Last administered on 07/25/16 08:46; Start 07/25/16 at 07:07; Stop 07/25/16 at 07:08; Status DC Aspirin (Aspirin) 300 mg STK-MED ONCE .ROUTE Last administered on 07/25/16t 17: 25; Start 07/25/16 at 07:08; Stop 07/25/16 at 07:09; Status DC Sodium Chloride (Sodium Chloride) 50 ml STK-MED ONCE IJ Last administered on t 08:46; Start 07/25/16 at 07:08; Stop 07/25/16 at 07:09; Status DC Midazolam HCl (Versed) 2 mg STK-MED ONCE .ROUTE ; Start 07/25/16 at 07:15; Stop 07/25/16 at 07:16; Status DC Ephedrine Sulfate 50 mg 50 mg STK-MED ONCE IV ; Start 07/25/16 at 07:16; Stop at 07:17; Status DC Nitroglycerin/ Dextrose (Nitroglycerin Drip) 250 ml @ As Directed STK-MED ONCE IV ; Start 07/25/16 at 07:16; Stop 07/25/16 at 07:17; Status DC Midazolam HCl (Versed) 2 mg STK-MED ONCE .ROUTE ; Start 07/25/16 at 07:18; Stop 07/25/16 at 07:19; Status DC Fentanyl Citrate (Fentanyl 2ml Vial) 100 mcg STK-MED ONCE .ROUTE ; Start at 07:19; Stop 07/25/16 at 07:20; Status DC Sufentanil Citrate (Sufenta) 100 mcg STK-MED ONCE .ROUTE ; Start 07/25/16 at 07: 19; Stop 07/25/16 at 07:20; Status DC Midazolam HCl (Versed) 2 mg 1X ONCE IV ; Start 07/25/16 at 08:00; Stop at 08:01; Status DC Dexamethasone Sodium Phosphate (Decadron) 20 mg STK-MED ONCE .ROUTE ; Start 01/31 at 07:58; Stop 07/25/16 at 07:59; Status DC Rocuronium Wins[place] (Zemuron) 100 mg STK-MED ONCE .ROUTE ; Start 07/25/16 at 08: 52; Stop 07/25/16 at 08:53; Status DC Sufentanil Citrate (Sufenta) 100 mcg STK-MED ONCE .ROUTE ; Start 07/25/16 at 08: 53; Stop 07/25/16 at 08:54; Status DC Protamine Sulfate 250 mg STK-MED ONCE IV ; Start 07/25/16 at 10:43; Stop at 10:44; Status DC Rocuronium Wins[place] 100 mg 100 mg STK-MED ONCE .ROUTE ; Start 07/25/16 at 10:52; Stop 07/25/16 at 10:53; Status DC Albumin Human 0 ml @ As Directed STK-MED ONCE IV ; Start 07/25/16 at 10:53; Stop 07/25/16 at 10:54; Status DC Amiodarone HCl/ Dextrose (Cordarone) 518 ml @ 34.53 mls/ hr 1X ONCE IV Last administered on 07/25/16t 18:52; Start 07/25/16 at 11:30; Stop 07/26/16 at 02:30 ; Status DC Sodium Bicarbonate 50 meq STK-MED ONCE .ROUTE ; Start 07/25/16 at 11:35; Stop at 11:36; Status DC Protamine Sulfate 50 mg STK-MED ONCE IV ; Start 07/25/16 at 12:31; Stop at 12:32; Status DC Amiodarone HCl (Cordarone) 150 mg STK-MED ONCE .ROUTE ; Start 07/25/16 at 12:37 ; Stop 07/25/16 at 12:38; Status DC Isoflurane (Isoflurane) 90 ml STK-MED ONCE IH ; Start 07/25/16 at 12:42; Stop at 12:43; Status DC Lidocaine HCl (Lidocaine HCl 2% Abboject) 100 mg STK-MED ONCE .ROUTE ; Start 01/31 at 13:07; Stop 07/25/16 at 13:08; Status DC Mannitol (Mannitol) 12.5 g STK-MED ONCE .ROUTE ; Start 07/25/16 at 13:07; Stop 07/25/16 at 13:08; Status DC Calcium Chloride 1,000 mg STK-MED ONCE IV ; Start 07/25/16 at 13:07; Stop at 13:08; Status DC Sodium Bicarbonate 50 meq 50 meq STK-MED ONCE .ROUTE ; Start 07/25/16 at 13:07; Stop 07/25/16 at 13:08; Status DC Albumin Human (Albuminar) 100 ml @ As Directed STK-MED ONCE IV ; Start at 13:07; Stop 07/25/16 at 13:08; Status DC Magnesium Sulfate 5 gm STK-MED ONCE .ROUTE ; Start 07/25/16 at 13:08; Stop 07/25 at 13:09; Status DC Heparin Sodium (Porcine) 10726 unit 30,000 unit STK-MED ONCE .ROUTE ; Start 01/31 at 13:08; Stop 07/25/16 at 13:09; Status DC Clevidipine (Cleviprex) 100 ml @ 0 mls/hr CONT PRN IV PER PROTOCOL; Start 07/25 at 13:45; Stop 07/26/16 at 11:29; Status DC Heparin Sodium (Porcine) 59043 unit 30,000 unit STK-MED ONCE .ROUTE ; Start 01/31 at 13:39; Stop 07/25/16 at 13:40; Status DC Epinephrine HCl/ Sodium Chloride (Adrenalin/Iv Sodium Chloride 0.9% 250ml) 254 ml @ 3.81 mls/hr CONT PRN IV SEE I/O RECORD; Start 07/25/16 at 13:45 Epinephrine HCl (Epinephrine Syringe) 1 mg STK-MED ONCE .ROUTE ; Start 07/25/16 at 13:52; Stop 07/25/16 at 13:53; Status DC Rocuronium [place] (Zemuron) 100 mg STK-MED ONCE .ROUTE ; Start 07/25/16 at 13: 57; Stop 07/25/16 at 13:58; Status DC Sodium Bicarbonate 50 meq 50 meq STK-MED ONCE .ROUTE ; Start 07/25/16 at 14:04; Stop 07/25/16 at 14:05; Status DC Procainamide HCl/ Dextrose (Pronestyl) 520 ml @ 15.6 mls/hr CONT PRN IV SEE I/ O RECORD; Start 07/25/16 at 14:30; Stop 07/28/16 at 15:22; Status DC Sodium Bicarbonate 50 meq STK-MED ONCE .ROUTE ; Start 07/25/16 at 14:31; Stop at 14:32; Status DC Sodium Bicarbonate 50 meq STK-MED ONCE .ROUTE ; Start 07/25/16 at 14:31; Stop at 14:32; Status DC Protamine Sulfate 50 mg STK-MED ONCE IV ; Start 07/25/16 at 15:13; Stop at 15:14; Status DC Protamine Sulfate 50 mg STK-MED ONCE IV ; Start 07/25/16 at 15:13; Stop at 15:14; Status DC Isoflurane 90 ml 90 ml STK-MED ONCE IH ; Start 07/25/16 at 15:13; Stop 07/25/16 at 15:14; Status DC Dobutamine HCl/ Dextrose 250 ml @ As Directed STK-MED ONCE IV ; Start 07/25/16 at 15:17; Stop 07/25/16 at 15:18; Status DC Iohexol 100 ml 100 ml STK-MED ONCE .ROUTE Last administered on 07/25/16t 15:39 ; Start 07/25/16 at 15:28; Stop 07/25/16 at 15:29; Status DC Norepinephrine Bitartrate 8 mg/ Sodium Chloride 258 ml @ 1.93 mls/hr 1X ONCE IV Last administered on 07/25/16t 18:53; Start 07/25/16 at 16:00; Stop at 08:04; Status DC Albumin Human (Plasmanate) 1,000 ml @ As Directed STK-MED ONCE IV ; Start 07/25 at 16:11; Stop 07/25/16 at 16:12; Status DC Heparin Sodium (Porcine) (Heparin Sodium) 10,000 unit STK-MED ONCE .ROUTE ; Start 07/25/16 at 16:19; Stop 07/25/16 at 16:20; Status DC Lidocaine HCl (Lidocaine HCl 2% Abboject) 100 mg STK-MED ONCE .ROUTE ; Start 01/31 at 16:19; Stop 07/25/16 at 16:20; Status DC Mannitol (Mannitol) 12.5 g STK-MED ONCE .ROUTE ; Start 07/25/16 at 16:19; Stop 07/25/16 at 16:20; Status DC Calcium Chloride 1,000 mg STK-MED ONCE IV ; Start 07/25/16 at 16:19; Stop at 16:20; Status DC Sodium Bicarbonate 50 meq STK-MED ONCE .ROUTE ; Start 07/25/16 at 16:19; Stop at 16:20; Status DC Magnesium Sulfate 5 gm STK-MED ONCE .ROUTE ; Start 07/25/16 at 16:19; Stop 07/25 at 16:20; Status DC Heparin Sodium (Porcine) (Heparin Sodium) 10,000 unit STK-MED ONCE .ROUTE ; Start 07/25/16 at 16:20; Stop 07/25/16 at 16:21; Status DC Lidocaine HCl (Lidocaine HCl 2% Abboject) 100 mg STK-MED ONCE .ROUTE ; Start 01/31 at 16:20; Stop 07/25/16 at 16:21; Status DC Aminocaproic Acid (Amicar) 5,000 mg STK-MED ONCE IV ; Start 07/25/16 at 16:20; Stop 07/25/16 at 16:21; Status DC Mannitol (Mannitol) 12.5 g STK-MED ONCE .ROUTE ; Start 07/25/16 at 16:20; Stop 07/25/16 at 16:21; Status DC Sodium Bicarbonate 50 meq 50 meq STK-MED ONCE .ROUTE ; Start 07/25/16 at 16:20; Stop 07/25/16 at 16:21; Status DC Albumin Human (Albuminar) 100 ml @ As Directed STK-MED ONCE IV ; Start at 16:20; Stop 07/25/16 at 16:21; Status DC Rocuronium Winslow (Zemuron) 50 mg STK-MED ONCE .ROUTE ; Start 07/25/16 at 16:33 ; Stop 07/25/16 at 16:34; Status DC Rocuronium Winslow (Zemuron) 50 mg STK-MED ONCE .ROUTE ; Start 07/25/16 at 16:33 ; Stop 07/25/16 at 16:34; Status DC Protamine Sulfate 50 mg STK-MED ONCE IV ; Start 07/25/16 at 16:34; Stop at 16:35; Status DC Sodium Bicarbonate 50 meq STK-MED ONCE .ROUTE ; Start 07/25/16 at 16:36; Stop at 16:37; Status DC Calcium Chloride 1,000 mg STK-MED ONCE IV ; Start 07/25/16 at 16:41; Stop at 16:42; Status DC Epinephrine HCl (Epinephrine Syringe) 1 mg STK-MED ONCE .ROUTE ; Start 07/25/16 at 16:41; Stop 07/25/16 at 16:42; Status DC Sodium Bicarbonate 50 meq STK-MED ONCE .ROUTE ; Start 07/25/16 at 16:52; Stop at 16:53; Status DC Sodium Bicarbonate 50 meq STK-MED ONCE .ROUTE ; Start 07/25/16 at 16:52; Stop at 16:53; Status DC Sodium Bicarbonate 50 meq STK-MED ONCE .ROUTE ; Start 07/25/16 at 16:52; Stop at 16:53; Status DC Vasopressin (Vasostrict) 20 unit STK-MED ONCE .ROUTE ; Start 07/25/16 at 16:54; Stop 07/25/16 at 16:55; Status DC Famotidine (Pepcid) 20 mg STK-MED ONCE .ROUTE ; Start 07/25/16 at 16:56; Stop at 16:57; Status DC Dexamethasone Sodium Phosphate (Decadron) 20 mg STK-MED ONCE .ROUTE ; Start 01/31 at 16:56; Stop 07/25/16 at 16:57; Status DC Diphenhydramine HCl 50 mg 50 mg STK-MED ONCE .ROUTE ; Start 07/25/16 at 16:56; Stop 07/25/16 at 16:57; Status DC Vasopressin/ Dextrose (Vasostrict) 102 ml @ 6 mls/hr CONT PRN IV SEE I/O RECORD Last administered on 08/03/16t 18:28; Start 07/25/16 at 17:15 Sodium Bicarbonate 50 meq STK-MED ONCE .ROUTE ; Start 07/25/16 at 17:24; Stop at 17:25; Status DC Sodium Bicarbonate 50 meq 50 meq STK-MED ONCE .ROUTE ; Start 07/25/16 at 17:24; Stop 07/25/16 at 17:25; Status DC Cefazolin Sodium/ Dextrose (Ancef 2gm Premix) 50 ml @ As Directed STK-MED ONCE IV ; Start 07/25/16 at 17:32; Stop 07/25/16 at 17:33; Status DC Sodium Chloride 3 ml 3 ml PRN Q12HR PRN IV AFTER MEDS AND BLOOD DRAWS; Start at 17:30; Stop 07/29/16 at 13:38; Status DC Lactated Ringer's 1,000 ml @ 15 mls/hr Q24H IV Last administered on 07/29/16 16:45; Start 07/25/16 at 17:30; Stop 07/31/16 at 15:33; Status DC Insulin Human Regular/Sodium Chloride (Novolin R Vial/ Iv Normal Saline 150ml) 151.5 ml @ 0 mls/hr CONT PRN PRN IV SEE I/O RECORD Last administered on 03:03; Start 07/25/16 at 17:30; Stop 07/29/16 at 13:51; Status DC Dextrose 25 gm 25 gm PRN Q15MIN PRN IV LOW BLOOD SUGAR; Start 07/25/16 at 17:30 ; Stop 07/29/16 at 13:51; Status DC Dopamine HCl/ Dextrose 250 ml @ 0 mls/hr CONT PRN PRN IV SEE I/O RECORD; Start 07/25/16 at 17:30; Stop 07/26/16 at 11:41; Status DC Amiodarone HCl/ Dextrose (Cordarone) 518 ml @ 33.33 mls/ hr CONT PRN PRN IV SEE COMMENTS; Start 07/25/16 at 17:30; Status UNV Info 1 ea CONT PRN PRN MC SEE COMMENTS; Start 07/25/16 at 17:30; Stop 08/03/16 at 12:57; Status DC Info 1 ea 1 ea CONT PRN PRN MC SEE COMMENTS; Start 07/25/16 at 17:30 Magnesium Sulfate/ Dextrose (Magnesium Sulfate PREMIX 1GM) 100 ml @ 100 mls/hr PRN DAILY PRN IV FOR MAG < 2.2 Last administered on 07/27/16 10:59; Start 01/31 at 17:30 Famotidine (Pepcid) 20 mg BID IVP Last administered on 08/03/16 09:15; Start 07/25/16 at 21:00; Stop 08/03/16 at 15:28; Status DC Metoclopramide HCl (Reglan) 10 mg PRN Q6HRS PRN IV NAUSEA/VOMITING Last administered on 07/29/16 09:54; Start 07/25/16 at 17:30 Morphine Sulfate 2 mg PRN Q1HR PRN IV PAIN Last administered on 07/28/16 14:21 ; Start 07/25/16 at 17:30; Stop 07/29/16 at 13:38; Status DC Acetaminophen (Tylenol) 650 mg PRN Q4HRS PRN PO MILD PAIN / TEMP; Start at 17:30; Stop 07/29/16 at 13:38; Status DC Acetaminophen (Acetaminophen Supp) 650 mg PRN Q4HRS PRN CA MILD PAIN / TEMP Last administered on 08/03/16 01:04; Start 07/25/16 at 17:30 Meperidine HCl 12.5 mg 12.5 mg PRN Q15MIN PRN IV SHIVERING; Start 07/25/16 at 17:30; Stop 07/29/16 at 13:38; Status DC Propofol (Diprivan) 100 ml @ 0 mls/hr CONT PRN PRN IV POSTOP SEDATION UNTIL EXTUBATE; Start 07/25/16 at 17:30; Stop 07/28/16 at 15:22; Status DC Aspirin (Ecotrin) 325 mg DAILYWBKFT PO Last administered on 07/29/16 09:54; Start 07/26/16 at 08:00; Stop 07/29/16 at 09:59; Status DC Aspirin (Aspirin) 300 mg PRN DAILY PRN CA IF UNABLE TO TAKE PO; Start 07/25/16 at 17:30; Stop 07/26/16 at 12:00; Status DC Acetaminophen/ Hydrocodone Bitart (Lortab 5/325) 1 tab PRN Q4HRS PRN PO MILD PAIN; Start 07/25/16 at 17:30; Stop 08/03/16 at 12:24; Status DC Acetaminophen/ Hydrocodone Bitart 2 tab 2 tab PRN Q4HRS PRN PO MODERATE PAIN, SEVERE PAIN; Start 07/25/16 at 17:30; Stop 08/03/16 at 12:24; Status DC Cefazolin Sodium/ Dextrose 50 ml @ 100 mls/hr Q8H IV ; Start 07/25/16 at 18:00 ; Stop 07/25/16 at 21:42; Status DC Albumin Human 250 ml @ 62.5 mls/hr 1X ONCE IV Last administered on 07/27/16 17:52; Start 07/25/16 at 17:30; Stop 07/25/16 at 21:29; Status DC Midazolam HCl 100 ml @ As Directed STK-MED ONCE IV ; Start 07/25/16 at 18:06; Stop 07/25/16 at 18:07; Status DC Midazolam HCl 100 ml @ 0 mls/hr CONT PRN IV SEE I/O RECORD Last administered on 07/25/16 18:56; Start 07/25/16 at 18:15; Stop 07/26/16 at 08:59; Status DC Vancomycin HCl 1 gm/Sodium Chloride 250 ml @ 250 mls/hr 1X ONCE IV Last administered on 07/25/16 20:56; Start 07/25/16 at 18:15; Stop 07/25/16 at 19:14 ; Status DC Piperacillin Sod/ Tazobactam Sod/ Sodium Chloride (Zosyn/Iv Sodium Chloride 0.9 % 50ml) 50 ml @ 100 mls/hr Q6HRS IV Last administered on 07/31/16 05:32; Start 07/25/16 at 18:15; Stop 07/31/16 at 10:25; Status DC Midazolam HCl (Versed) 2 mg PRN Q20MIN PRN IV SEDATION; Start 07/25/16 at 18:15 ; Stop 07/25/16 at 18:39; Status DC Midazolam HCl 5 mg 5 mg PRN Q30MIN PRN IV SEDATION; Start 07/25/16 at 18:15; Stop 07/25/16 at 18:39; Status DC Vecuronium Winslow 100 mg/ Dextrose 100 ml @ 0 mls/hr 1X ONCE IV Last administered on 07/25/16 19:43; Start 07/25/16 at 18:15; Stop 07/25/16 at 18:17 ; Status DC Midazolam HCl 100 ml @ 0 mls/hr CONT PRN IV SEE I/O RECORD Last administered on 07/28/16 19:40; Start 07/25/16 at 18:45 Dobutamine HCl/ Dextrose 250 ml @ 0 mls/hr CONT PRN IV SEE I/O RECORD Last administered on 07/29/16 03:10; Start 07/25/16 at 18:45; Stop 07/29/16 at 13:38 ; Status DC Potassium Chloride 50 ml @ 50 mls/hr Q1H IV Last administered on 07/25/16 22: 58; Start 07/25/16 at 21:00; Stop 07/25/16 at 23:59; Status DC Cefazolin Sodium/ Dextrose 50 ml @ 100 mls/hr Q8H IV Last administered on 07/27 05:34; Start 07/25/16 at 22:00; Stop 07/27/16 at 06:29; Status DC Heparin Sodium (Porcine) 60696 unit/Dextrose 512.5 ml @ 0 mls/hr Q0M ONCE IV Last administered on 07/25/16 22:21; Start 07/25/16 at 22:15; Stop 07/25/16 at 22:16; Status DC Vecuronium Winslow/Dextrose (Norcuron) 100 ml @ 0 mls/hr CONT PRN IV SEE I/O RECORD Last administered on 07/26/16 01:07; Start 07/26/16 at 00:45; Stop 07/29 at 13:38; Status DC Dextrose 25 gm 25 gm 1X ONCE IV Last administered on 07/26/16 01:08; Start at 01:00; Stop 07/26/16 at 01:18; Status DC Amiodarone HCl/ Dextrose (Cordarone) 259 ml @ 17.26 mls/ hr CONT PRN IV SEE I/ O RECORD Last administered on 07/30/16 13:02; Start 07/26/16 at 06:45; Stop at 15:33; Status DC Cefazolin Sodium/ Dextrose 2 gm 2 gm STK-MED ONCE IV ; Start 07/25/16 at 11:00; Stop 07/26/16 at 08:53; Status DC Lactated Ringer's 500 ml @ 5,000 mls/hr PRN Q10MIN PRN IV CVP <14; Start 07/26 at 10:00; Stop 07/29/16 at 13:38; Status DC Fentanyl Citrate (Fentanyl 600 Mcg/30 ml [employer]) 30 ml @ 0 mls/hr CONT PRN IV PROTOCOL Last administered on 07/31/16 09:12; Start 07/26/16 at 10:00; Stop at 13:31; Status DC Fentanyl Citrate (Fentanyl 2ml Vial) 25 mcg PRN Q1HR PRN IV COMM; Start at 10:00; Stop 07/29/16 at 13:38; Status DC Fentanyl Citrate (Fentanyl 2ml Vial) 50 mcg PRN Q1HR PRN IV COMM; Start at 10:00; Stop 07/29/16 at 13:38; Status DC Chlorhexidine Gluconate (Peridex) 15 ml BID MM Last administered on 08/05/16 07:43; Start 07/26/16 at 10:30 Sulfur Hexafluoride Microspheres (Lumason) 25 mg STK-MED ONCE IVP ; Start at 11:29; Stop 07/26/16 at 11:30; Status DC Aspirin 300 mg 300 mg DAILY CA Last administered on 07/28/16 07:55; Start 03/03 at 12:00; Stop 07/29/16 at 19:10; Status DC Potassium Chloride (KCl Premix 20meq) 50 ml @ 50 mls/hr 1X ONCE IV Last administered on 07/26/16 12:55; Start 07/26/16 at 12:00; Stop 07/26/16 at 12:59 ; Status DC Sulfur Hexafluoride Microspheres (Lumason) 25 mg 1X ONCE IVP Last administered on 07/26/16 11:45; Start 07/26/16 at 11:45; Stop 07/26/16 at 11:50 ; Status DC Multi-Ingred Cream/Lotion/Oil/ Oint (Artificial Tears Eye Oint) 1 adri BID OU Last administered on 08/05/16 07:43; Start 07/26/16 at 21:00 Ondansetron HCl (Zofran) 4 mg PRN Q6HRS PRN IV NAUSEA/VOMITING; Start 07/27/16 at 07:00; Stop 07/28/16 at 06:59; Status DC Fentanyl Citrate (Fentanyl 2ml Vial) 25 mcg PRN Q5MIN PRN IV MILD PAIN; Start 07/27/16 at 07:00; Stop 07/28/16 at 06:59; Status DC Fentanyl Citrate (Fentanyl 2ml Vial) 50 mcg PRN Q5MIN PRN IV MODERATE PAIN; Start 07/27/16 at 07:00; Stop 07/28/16 at 06:59; Status DC Morphine Sulfate 1 mg 1 mg PRN Q10MIN PRN IV SEVERE PAIN; Start 07/27/16 at 07: 00; Stop 07/28/16 at 06:59; Status DC Lactated Ringer's (Iv Lactated Ringers) 1,000 ml @ 30 mls/hr Q24H IV Last administered on 07/26/16 17:25; Start 07/27/16 at 07:00; Stop 07/27/16 at 18:59 ; Status DC Lidocaine HCl 2 ml PRN 1X PRN ID PRIOR TO IV START; Start 07/27/16 at 07:00; Stop 07/28/16 at 06:59; Status DC Hydromorphone HCl (Dilaudid) 0.5 mg PRN Q10MIN PRN IV SEV PAIN, Second choice; Start 07/27/16 at 07:00; Stop 07/28/16 at 06:59; Status DC Prochlorperazine Edisylate 5 mg 5 mg PACU PRN PRN IV NAUSEA, MRX1; Start at 07:00; Stop 07/28/16 at 06:59; Status DC Heparin Sodium (Porcine) 83382 unit/Dextrose 512.5 ml @ 0 mls/hr Q0M ONCE IV Last administered on 07/26/16 19:40; Start 07/26/16 at 18:30; Stop 07/26/16 at 18:31; Status DC Amiodarone HCl 150 mg/Dextrose 103 ml @ 618 mls/hr 1X ONCE IV Last administered on 07/26/16 19:25; Start 07/26/16 at 19:15; Stop 07/26/16 at 19:24 ; Status DC Norepinephrine Bitartrate 8 mg/ Sodium Chloride 258 ml @ 1.93 mls/hr CONT PRN IV SEE I/O RECORD Last administered on 08/03/16 11:12; Start 07/26/16 at 19:15 Amiodarone HCl 900 mg/Dextrose 518 ml @ 0 mls/hr CONT PRN IV PER PROTOCOL; Start 07/26/16 at 19:15; Stop 07/27/16 at 12:11; Status DC Milrinone Lactate/ Dextrose 100 ml @ 0 mls/hr CONT PRN IV SEE I/O RECORD Last administered on 07/26/16 20:03; Start 07/26/16 at 19:45; Stop 07/29/16 at 13:51 ; Status DC Calcium Chloride/ Sodium Chloride (Iv Sodium Chloride 0.9% 100ml) 120 ml @ 240 mls/hr 1X ONCE IV Last administered on 07/26/16 21:04; Start 07/26/16 at 21: 30; Stop 07/26/16 at 21:59; Status DC Digoxin 500 mcg 500 mcg 1X ONCE IV Last administered on 07/26/16 21:55; Start 07/26/16 at 21:45; Stop 07/26/16 at 21:46; Status DC Cefazolin Sodium/ Sodium Chloride (Ancef/Iv Sodium Chloride 0.9% 500ml Bag) 500 ml @ 500 mls/hr 1X PERIOP ONCE IRR Last administered on 07/27/16 14:37; Start 07/27/16 at 10:00; Stop 07/27/16 at 10:59; Status DC Vancomycin HCl (Vanco) 10 gm 1X ONCE CEMENT Last administered on 07/27/16 14: 37; Start 07/27/16 at 12:30; Stop 07/27/16 at 12:31; Status DC Rocuronium Winslow (Zemuron) 100 mg STK-MED ONCE .ROUTE ; Start 07/27/16 at 12: 32; Stop 07/27/16 at 12:33; Status DC Lorazepam (Ativan) 2 mg STK-MED ONCE .ROUTE ; Start 07/27/16 at 14:13; Stop 04/02 at 14:14; Status DC Phenylephrine HCl 1 mg 1 mg STK-MED ONCE IV ; Start 07/27/16 at 14:18; Stop 04/02 at 14:19; Status DC Albumin Human (Plasmanate) 250 ml @ 62.5 mls/hr 1X ONCE IV Last administered on 07/27/16 17:52; Start 07/27/16 at 17:15; Stop 07/27/16 at 21:14; Status DC Sodium Bicarbonate 50 meq STK-MED ONCE .ROUTE ; Start 07/27/16 at 17:39; Stop at 17:40; Status DC Sodium Bicarbonate 50 meq 1X ONCE IV Last administered on 07/27/16 17:51; Start 07/27/16 at 18:00; Stop 07/27/16 at 18:01; Status DC Sodium Bicarbonate 50 meq 1X ONCE IV Last administered on 07/27/16 17:52; Start 07/27/16 at 18:00; Stop 07/27/16 at 18:01; Status DC Fentanyl Citrate (Fentanyl 2ml Vial) 25 mcg PRN Q5MIN PRN IV MILD PAIN; Start 07/28/16 at 07:00; Stop 07/29/16 at 06:59; Status DC Fentanyl Citrate (Fentanyl 2ml Vial) 50 mcg PRN Q5MIN PRN IV MODERATE PAIN; Start 07/28/16 at 07:00; Stop 07/29/16 at 06:59; Status DC Morphine Sulfate 1 mg 1 mg PRN Q10MIN PRN IV SEVERE PAIN; Start 07/28/16 at 07: 00; Stop 07/29/16 at 06:59; Status DC Lactated Ringer's (Iv Lactated Ringers) 1,000 ml @ 30 mls/hr Q24H IV Last administered on 07/28/16 06:49; Start 07/28/16 at 06:49; Stop 07/28/16 at 18:48 ; Status DC Lidocaine HCl 2 ml PRN 1X PRN ID PRIOR TO IV START; Start 07/28/16 at 07:00; Stop 07/29/16 at 06:59; Status DC Hydromorphone HCl (Dilaudid) 0.5 mg PRN Q10MIN PRN IV SEV PAIN, Second choice; Start 07/28/16 at 07:00; Stop 07/29/16 at 06:59; Status DC Rocuronium Winslow 50 mg 50 mg STK-MED ONCE .ROUTE ; Start 07/28/16 at 07:27; Stop 07/28/16 at 07:28; Status DC Cefazolin Sodium/ Sodium Chloride (Ancef/Iv Sodium Chloride 0.9% 500ml Bag) 500 ml @ 500 mls/hr 1X PERIOP ONCE IRR Last administered on 07/28/16 09:25; Start 07/28/16 at 08:00; Stop 07/28/16 at 08:59; Status DC Cellulose 1 each STK-MED ONCE .ROUTE ; Start 07/28/16 at 07:42; Stop 07/28/16 at 07:43; Status DC Bupivacaine HCl/ Epinephrine Bitart 50 ml 50 ml STK-MED ONCE .ROUTE ; Start at 07:42; Stop 07/28/16 at 07:43; Status DC Heparin Sodium (Porcine)/Sodium Chloride (Heparin Sodium/ Iv Sodium Chloride 0.9 % 500ml Bag) 505 ml @ 505 mls/hr 1X PERIOP ONCE IRR Last administered on 07/28t 10:19; Start 07/28/16 at 08:15; Stop 07/28/16 at 09:14; Status DC Lorazepam 2 mg 2 mg STK-MED ONCE .ROUTE ; Start 07/28/16 at 08:29; Stop at 08:30; Status DC Magnesium Sulfate/ Dextrose (Magnesium Sulfate PREMIX 1GM) 100 ml @ 100 mls/hr 1X ONCE IV Last administered on 07/28/16t 13:09; Start 07/28/16 at 09:00; Stop 07/28/16 at 09:59; Status DC Vasopressin (Vasostrict) 20 unit STK-MED ONCE .ROUTE ; Start 07/28/16 at 09:03; Stop 07/28/16 at 09:04; Status DC Epinephrine HCl (Epinephrine Syringe) 1 mg STK-MED ONCE .ROUTE ; Start 07/28/16 at 09:09; Stop 07/28/16 at 09:10; Status DC Calcium Chloride 1,000 mg STK-MED ONCE IV ; Start 07/28/16 at 09:09; Stop at 09:10; Status DC Phenylephrine HCl 1 mg STK-MED ONCE IV ; Start 07/28/16 at 09:54; Stop 07/28/16 at 09:55; Status DC Sevoflurane 60 ml 60 ml STK-MED ONCE IH ; Start 07/28/16 at 09:54; Stop at 09:55; Status DC Epinephrine HCl/ Sodium Chloride (Adrenalin/Iv Sodium Chloride 0.9% 250ml) 254 ml @ 3.81 mls/hr 1X ONCE IV ; Start 07/28/16 at 10:00; Stop 07/29/16 at 19:10 ; Status DC Heparin Sodium (Porcine) 16833 unit 10,000 unit STK-MED ONCE .ROUTE ; Start at 09:57; Stop 07/28/16 at 09:58; Status DC Albumin Human (Plasmanate) 500 ml @ As Directed STK-MED ONCE IV ; Start at 09:57; Stop 07/28/16 at 09:58; Status DC Iohexol 100 ml 100 ml STK-MED ONCE .ROUTE ; Start 07/28/16 at 10:39; Stop at 10:40; Status DC Heparin Sodium/ Sodium Chloride 500 ml @ As Directed STK-MED ONCE .ROUTE ; Start 07/28/16 at 10:39; Stop 07/28/16 at 10:40; Status DC Iohexol 100 ml 100 ml STK-MED ONCE .ROUTE ; Start 07/28/16 at 10:43; Stop at 10:44; Status DC Heparin Sodium/ Sodium Chloride 500 ml @ As Directed STK-MED ONCE .ROUTE ; Start 07/28/16 at 11:21; Stop 07/28/16 at 11:22; Status DC Albuterol Sulfate (Ventolin Neb Soln) 2.5 mg RTQID NEB Last administered on 08:46; Start 07/28/16 at 12:00; Stop 07/30/16 at 17:05; Status DC Furosemide (Lasix) 40 mg 1X ONCE IVP Last administered on 07/28/16 13:16; Start 07/28/16 at 13:15; Stop 07/28/16 at 13:16; Status DC Furosemide (Lasix) 40 mg 1X ONCE IVP Last administered on 07/28/16 13:19; Start 07/28/16 at 14:00; Stop 07/28/16 at 14:01; Status DC Heparin Sodium/ Sodium Chloride 1000 unit 1,000 unit CONT PRN IV ART LINE FLUSH Last administered on 08/02/16 06:47; Start 07/28/16 at 14:45 Albumin Human 250 ml @ 62.5 mls/hr PRN Q1HR PRN IV SEE COMMENTS Last administered on 08/02/16 16:12; Start 07/28/16 at 15:15 Furosemide 100 mg/ Sodium Chloride 100 ml @ 5 mls/hr CONT PRN IV SEE I/O RECORD Last administered on 07/30/16 09:50; Start 07/28/16 at 15:30; Stop 07/31 at 13:31; Status DC Potassium Chloride 50 ml @ 50 mls/hr Q1H IV Last administered on 07/28/16 19: 39; Start 07/28/16 at 18:30; Stop 07/28/16 at 20:29; Status DC Potassium Chloride (KCl Premix 20meq) 50 ml @ 50 mls/hr Q1H IV Last administered on 07/29/16 09:36; Start 07/29/16 at 07:00; Stop 07/29/16 at 08:59 ; Status DC Lorazepam (Ativan) 2 mg STK-MED ONCE .ROUTE ; Start 07/28/16 at 08:30; Stop at 08:16; Status DC Aspirin (Arti Aspirin) 325 mg DAILYWBKFT PO Last administered on 08/05/16 07: 43; Start 07/30/16 at 08:00 Docusate Sodium 100 mg 100 mg DAILY PO Last administered on 07/31/16 07:59; Start 07/30/16 at 09:00; Stop 07/31/16 at 11:00; Status DC Dobutamine HCl/ Dextrose 250 ml @ 12.1 mls/hr CONT PRN IV PER PROTOCOL Last administered on 08/02/16 18:03; Start 07/29/16 at 13:30 Potassium Chloride 50 ml @ 50 mls/hr Q1H IV Last administered on 07/29/16 22: 39; Start 07/29/16 at 20:00; Stop 07/29/16 at 22:59; Status DC Potassium Chloride (KCl Premix 20meq) 50 ml @ 50 mls/hr Q1H IV Last administered on 07/30/16 09:19; Start 07/30/16 at 07:00; Stop 07/30/16 at 08:59 ; Status DC Ipratropium Winslow (Atrovent) 0.5 mg RTQID NEB Last administered on 08/04/16 20:22; Start 07/30/16 at 12:30 Digoxin 500 mcg 500 mcg 1X ONCE IV Last administered on 07/30/16 13:01; Start 07/30/16 at 12:15; Stop 07/30/16 at 12:19; Status DC Dexmedetomidine HCl/Sodium Chloride (Precedex/Iv Sodium Chloride 0.9% 50ml) 50 ml @ 0 mls/hr CONT PRN IV PER PROTOCOL Last administered on 08/04/16 05:20; Start 07/30/16 at 13:30 Atropine Sulfate 0.5 mg PRN Q5MIN PRN IV SEE COMMENTS; Start 07/30/16 at 13:30 Amiodarone HCl (Cordarone) 400 mg ONCE ONCE PO Last administered on 07/30/16 15:01; Start 07/30/16 at 13:30; Stop 07/30/16 at 13:46; Status DC Amiodarone HCl (Cordarone) 400 mg BID PO Last administered on 08/05/16 07:44; Start 07/30/16 at 21:00 Digoxin 125 mcg 125 mcg DAILY IV Last administered on 08/02/16 08:56; Start at 09:00; Stop 08/03/16 at 14:27; Status DC Albumin Human (Albuminar) 50 ml @ 50 mls/hr 1X ONCE IV Last administered on 16:26; Start 07/30/16 at 16:30; Stop 07/30/16 at 17:29; Status DC Ibuprofen (Motrin) 200 mg PRN Q6HRS PRN PO fever; Start 07/30/16 at 19:45; Stop 08/01/16 at 12:22; Status DC Metoprolol Tartrate (Lopressor) 2.5 mg 1X ONCE IVP Last administered on 20:23; Start 07/30/16 at 20:30; Stop 07/30/16 at 20:31; Status DC Metoprolol Tartrate 5 mg 5 mg PRN Q2HR PRN IVP HYPERTENSION Last administered on 08/04/16 22:09; Start 07/30/16 at 22:30 Potassium Chloride (KCl Premix 20meq) 50 ml @ 50 mls/hr Q1H IV Last administered on 07/31/16 09:04; Start 07/31/16 at 07:00; Stop 07/31/16 at 08:59 ; Status DC Metoprolol Tartrate (Lopressor) 12.5 mg BID NG Last administered on 08/05/16 07:44; Start 07/31/16 at 10:00 Docusate Sodium (Colace Solution) 100 mg PRN DAILY PRN PO constipation Last administered on 08/01/16 08:40; Start 07/31/16 at 11:00 Hydralazine HCl (Apresoline) 10 mg PRN Q2HRS PRN IVP ELEVATED BP, SEE COMMENTS Last administered on 08/01/16 16:35; Start 07/31/16 at 13:30 Fentanyl Citrate (Fentanyl 2ml Vial) 50 mcg PRN Q2HR PRN IV PAIN Last administered on 08/02/16 12:57; Start 07/31/16 at 13:45 Furosemide (Lasix) 40 mg TID IVP Last administered on 08/02/16 05:49; Start at 14:00; Stop 08/02/16 at 15:33; Status DC Alteplase, Recombinant (Cathflo) 2 mg 1X ONCE INT CAT Last administered on 23:34; Start 07/31/16 at 23:15; Stop 07/31/16 at 23:16; Status DC Haloperidol Lactate (Haldol) 5 mg PRN Q6HRS PRN IVP MODERATE AGITATION Last administered on 08/01/16 21:21; Start 08/01/16 at 21:00 Haloperidol Lactate 10 mg 10 mg PRN Q6HRS PRN IVP SEVERE AGITATION Last administered on 08/04/16 22:08; Start 08/01/16 at 23:45 Propofol 100 ml @ 0 mls/hr CONT PRN IV SEE I/O RECORD Last administered on 08/02 11:43; Start 08/02/16 at 02:45 Piperacillin Sod/ Tazobactam Sod/ Sodium Chloride (Zosyn/Iv Sodium Chloride 0.9 % 50ml) 50 ml @ 100 mls/hr Q6HRS IV Last administered on 08/02/16 13:17; Start 08/02/16 at 12:00; Stop 08/02/16 at 15:43; Status DC Vancomycin HCl 1 each 1 each PRN DAILY PRN MC SEE COMMENTS Last administered on 08/02/16 13:20; Start 08/02/16 at 11:45; Stop 08/03/16 at 15:24; Status DC Vancomycin HCl 2 gm/Sodium Chloride 500 ml @ 250 mls/hr 1X ONCE IV Last administered on 08/02/16 11:52; Start 08/02/16 at 12:00; Stop 08/02/16 at 13:59 ; Status DC Sodium Chloride (Iv Sodium Chloride 0.9% 500ml Bag) 500 ml @ 500 mls/hr 1X ONCE IV Last administered on 08/02/16 12:39; Start 08/02/16 at 12:45; Stop at 13:44; Status DC Vecuronium [place] (Norcuron Bolus) 10 mg 1X STAT IV Last administered on 08/02 13:34; Start 08/02/16 at 13:17; Stop 08/02/16 at 13:23; Status DC Vancomycin HCl 1 each 1 each 1X ONCE MC ; Start 08/03/16 at 23:30; Stop at 23:30; Status DC Vancomycin HCl 1.25 gm/Sodium Chloride 250 ml @ 167 mls/hr Q12H IV Last administered on 08/03/16 00:33; Start 08/03/16 at 00:00; Stop 08/03/16 at 11:07 ; Status DC Fentanyl Citrate (Fentanyl 600 Mcg/30 ml [employer]) 30 ml @ 0 mls/hr CONT PRN PRN IV PROTOCOL Last administered on 08/05/16 01:15; Start 08/02/16 at 13:30 Naloxone HCl 0.4 mg 0.4 mg PRN Q2MIN PRN IV SEE INSTRUCTIONS; Start 08/02/16 at 13:30 Micafungin Sodium 100 mg/Dextrose 100 ml @ 100 mls/hr Q24H IV Last administered on 08/04/16 16:38; Start 08/02/16 at 17:00 Lactated Ringer's 1,000 ml @ 1,000 mls/hr 1X ONCE IV Last administered on 15:45; Start 08/02/16 at 15:45; Stop 08/02/16 at 16:44; Status DC Piperacillin Sod/ Tazobactam Sod 4.5 gm/Sodium Chloride 100 ml @ 200 mls/hr Q6HRS IV Last administered on 08/03/16 12:00; Start 08/02/16 at 18:00; Stop at 14:02; Status DC Albumin Human (Plasmanate) 500 ml @ 125 mls/hr 1X ONCE IV Last administered on 08/02/16 20:37; Start 08/02/16 at 20:30; Stop 08/03/16 at 00:29; Status DC Furosemide (Lasix) 40 mg 1X ONCE IVP Last administered on 08/03/16 00:16; Start 08/02/16 at 20:30; Stop 08/02/16 at 20:31; Status DC Acetaminophen (Tylenol) 650 mg 1X ONCE NG Last administered on 08/03/16 02:03 ; Start 08/03/16 at 02:15; Stop 08/03/16 at 02:16; Status DC Ketorolac Tromethamine 15 mg 15 mg 1X ONCE IV Last administered on 08/03/16 02:03; Start 08/03/16 at 02:15; Stop 08/03/16 at 02:16; Status DC Lactated Ringer's (Iv Lactated Ringers) 500 ml @ 500 mls/hr 1X ONCE IV Last administered on 08/03/16 10:15; Start 08/03/16 at 10:15; Stop 08/03/16 at 11:14 ; Status DC Sodium Bicarbonate 50 meq 1X ONCE IV Last administered on 08/03/16 10:44; Start 08/03/16 at 10:15; Stop 08/03/16 at 10:20; Status DC Calcium Gluconate 1000 mg 1,000 mg 1X ONCE IVP ; Start 08/03/16 at 12:15; Stop 08/03/16 at 12:16; Status DC Sodium Bicarbonate 150 meq/Dextrose/ Sodium Chloride 1,150 ml @ 100 mls/hr [id number] PRN IV .; Start 08/03/16 at 12:30; Stop 08/03/16 at 13:03; Status DC Magnesium Sulfate/ Dextrose 50 ml @ 25 mls/hr PRN DAILY PRN IV for Mag < 1.7 on am labs; Start 08/03/16 at 12:30 Sodium Bicarbonate 150 meq/Dextrose 1,150 ml @ 100 mls/hr [id number] IV Last administered on 08/04/16 04:31; Start 08/03/16 at 13:30; Stop 08/04/16 at 08:31 ; Status DC Calcium Chloride 2000 mg/Sodium Chloride 120 ml @ 240 mls/hr 1X ONCE IV Last administered on 08/03/16 13:30; Start 08/03/16 at 13:30; Stop 08/03/16 at 13:59 ; Status DC Piperacillin Sod/ Tazobactam Sod/ Sodium Chloride (Zosyn/Iv Sodium Chloride 0.9 % 50ml) 50 ml @ 100 mls/hr Q6HRS IV Last administered on 08/05/16 06:01; Start 08/03/16 at 18:00 Heparin Sodium (Porcine) (Heparin Sodium) 10,000 unit STK-MED ONCE .ROUTE ; Start 08/03/16 at 14:31; Stop 08/03/16 at 14:32; Status DC Lidocaine/Sodium Bicarbonate (Buffered Lidocaine 1%) 20 ml STK-MED ONCE IJ ; Start 08/03/16 at 14:31; Stop 08/03/16 at 14:32; Status DC Heparin Sodium/ Sodium Chloride 60 unit 1X ONCE IV Last administered on 16:17; Start 08/03/16 at 14:45; Stop 08/03/16 at 14:46; Status DC Heparin Sodium (Porcine) (Heparin Sodium) 2,500 unit 1X ONCE INT CAT Last administered on 08/03/16 16:16; Start 08/03/16 at 14:45; Stop 08/03/16 at 14:46 ; Status DC Lidocaine/Sodium Bicarbonate (Buffered Lidocaine 1%) 3 ml 1X ONCE IJ Last administered on 08/03/16 16:16; Start 08/03/16 at 14:45; Stop 08/03/16 at 14:46 ; Status DC Fentanyl Citrate (Fentanyl 2ml Vial) 25 mcg PRN Q5MIN PRN IV MILD PAIN; Start 08/04/16 at 07:00; Stop 08/05/16 at 06:59; Status DC Fentanyl Citrate (Fentanyl 2ml Vial) 50 mcg PRN Q5MIN PRN IV MODERATE PAIN; Start 08/04/16 at 07:00; Stop 08/05/16 at 06:59; Status DC Morphine Sulfate 1 mg 1 mg PRN Q10MIN PRN IV SEVERE PAIN; Start 08/04/16 at 07: 00; Stop 08/05/16 at 06:59; Status DC Lactated Ringer's (Iv Lactated Ringers) 1,000 ml @ 0 mls/hr Q0M IV ; Start at 07:00; Stop 08/04/16 at 18:59; Status DC Lidocaine HCl 2 ml PRN 1X PRN ID PRIOR TO IV START; Start 08/04/16 at 07:00; Stop 08/05/16 at 06:59; Status DC Hydromorphone HCl (Dilaudid) 0.5 mg PRN Q10MIN PRN IV SEV PAIN, Second choice; Start 08/04/16 at 07:00; Stop 08/05/16 at 06:59; Status DC Famotidine (Pepcid) 20 mg DAILY IVP Last administered on 08/05/16 07:43; Start 08/04/16 at 09:00 Insulin Aspart (Novolog) 0-7 UNITS TIDWMEALS SQ ; Start 08/03/16 at 19:00 Dextrose 12.5 gm 12.5 gm PRN Q15MIN PRN IV SEE COMMENTS; Start 08/03/16 at 18: 30 Sodium Chloride 1,000 ml @ 1,000 mls/hr Q1H PRN IV hypotension; Start 08/03/16 at 18:33; Stop 08/04/16 at 00:32; Status DC Sodium Chloride (Iv Sodium Chloride 0.9% 1000ml Bag) 1,000 ml @ 400 mls/hr Q2H30M PRN IV PATENCY; Start 08/03/16 at 18:33; Stop 08/04/16 at 06:32; Status DC Info 1 each 1 each PRN DAILY PRN MC SEE COMMENTS; Start 08/03/16 at 18:45 Sodium Chloride 1,000 ml @ 1,000 mls/hr Q1H PRN IV hypotension; Start 08/04/16 at 07:44; Stop 08/04/16 at 13:43; Status DC Albumin Human (Albuminar) 200 ml @ 200 mls/hr 1X PRN PRN IV Hypotension Last administered on 08/04/16 08:48; Start 08/04/16 at 07:45; Stop 08/04/16 at 13:44 ; Status DC Diphenhydramine HCl (Benadryl) 25 mg 1X PRN PRN IV ITCHING; Start 08/04/16 at 07:45; Stop 08/05/16 at 07:44; Status DC Diphenhydramine HCl (Benadryl) 25 mg 1X PRN PRN IV ITCHING; Start 08/04/16 at 07:45; Stop 08/05/16 at 07:44; Status DC Sodium Chloride (Normal Saline Flush) 10 ml 1X PRN PRN IV AP catheter pack; Start 08/04/16 at 07:45; Stop 08/05/16 at 07:44; Status DC Sodium Chloride 10 ml 10 ml 1X PRN PRN IV EAR [employer]RO[employer] SURGEON catheter pack; Start 08/04/16 at 07:45; Stop 08/05/16 at 07:44; Status DC Sodium Chloride (Iv Sodium Chloride 0.9% 1000ml Bag) 1,000 ml @ 400 mls/hr Q2H30M PRN IV PATENCY; Start 08/04/16 at 07:44; Stop 08/04/16 at 19:43; Status DC Info (PHARMACY MONITORING -- do not chart) 1 each PRN DAILY PRN MC SEE COMMENTS ; Start 08/04/16 at 07:45 Heparin Sodium (Porcine) 5,000 unit Q12HR SQ Last administered on 08/05/16t 07: 47; Start 08/04/16 at 21:00 Sevelamer Carbonate (Renvela) 2.4 gm BID FT ; Start 08/05/16 at 10:00 Active Scripts Active Reported Amlodipine Besylate 5 Mg Tablet 5 Mg PO DAILY Pradaxa (Dabigatran Etexilate Mesylate) 150 Mg Capsule 1 Cap PO BID Metoprolol Succinate ( Xl ) (Metoprolol Succinate) 100 Mg Tab.er.24h 1 Tab PO DAILY Vitals/I & O Vital Sign - Last 24 Hours 08/04/16 08/04/16 08/04/16 08/04/16 11:00 11:25 11:25 11:53 Pulse 85 85 85 Resp 30 B/P 110/55 110/55 110/55 Pulse Ox 98 94 O2 Delivery Ventilator Ventilator 08/04/16 08/04/16 08/04/16 08/04/16 12:00 12:00 12:10 13:00 Temp 97.5 97.5 Pulse 76 77 Resp 30 31 B/P 125/54 110/51 Pulse Ox 98 94 97 O2 Delivery Mechanical Ventilator Ventilator Ventilator Ventilator 08/04/16 08/04/16 08/04/16 08/04/16 13:45 14:00 14:15 15:00 Temp 97.6 97.6 Pulse 75 86 Resp 30 30 30 30 B/P 102/51 111/55 Pulse Ox 98 97 96 97 O2 Delivery Ventilator Ventilator Ventilator Ventilator 08/04/16 08/04/16 08/04/16 08/04/16 15:10 16:00 16:00 16:08 Pulse 78 Resp 30 B/P 118/56 Pulse Ox 94 99 94 O2 Delivery Ventilator Mechanical Ventilator Ventilator Ventilator 08/04/16 08/04/16 08/04/16 08/04/16 16:40 17:00 17:09 18:00 Pulse 86 86 Resp 31 30 B/P 140/63 142/63 Pulse Ox 94 94 94 98 O2 Delivery Ventilator Ventilator Ventilator Ventilator 08/04/16 08/04/16 08/04/16 08/04/16 19:00 20:00 20:00 20:18 Temp 97.5 97.5 Pulse 88 94 Resp 32 38 B/P 138/64 174/76 Pulse Ox 95 94 95 O2 Delivery Ventilator Mechanical Ventilator Ventilator Ventilator 08/04/16 08/04/16 08/04/16 08/04/16 20:22 21:00 21:00 21:12 Pulse 101 90 Resp 28 B/P 180/88 146/66 Pulse Ox 95 88 96 O2 Delivery Ventilator Ventilator Ventilator 08/04/16 08/04/16 08/04/16 08/04/16 22:00 22:09 22:10 23:00 Pulse 102 96 101 106 Resp 26 24 B/P 160/74 180/88 180/88 140/70 Pulse Ox 93 94 O2 Delivery Ventilator Ventilator 08/04/16 08/05/16 08/05/16 08/05/16 23:05 00:00 00:00 01:00 Temp 98.3 98.3 Pulse 98 94 Resp 19 23 B/P 130/64 136/64 Pulse Ox 93 96 97 O2 Delivery Ventilator Ventilator Mechanical Ventilator Ventilator 08/05/16 08/05/16 08/05/16 08/05/16 01:35 02:00 02:57 03:00 Pulse 100 83 Resp 30 22 B/P 152/74 154/67 Pulse Ox 93 95 96 96 O2 Delivery Ventilator Ventilator Ventilator Ventilator 08/05/16 08/05/16 08/05/16 08/05/16 04:00 04:00 05:00 05:26 Temp 98.1 98.1 Pulse 98 96 Resp 18 26 B/P 152/70 154/74 Pulse Ox 95 95 95 O2 Delivery Ventilator Mechanical Ventilator Ventilator Ventilator 08/05/16 08/05/16 08/05/16 08/05/16 06:00 07:00 07:44 07:44 Temp 98.1 98.1 Pulse 93 105 93 93 Resp 23 23 B/P 151/73 152/76 151/73 151/73 Pulse Ox 95 95 O2 Delivery Ventilator Ventilator 08/05/16 08/05/16 08/05/16 08/05/16 08:00 08:00 08:40 09:00 Pulse 101 89 Resp 23 B/P 168/76 113/61 Pulse Ox 94 94 95 O2 Delivery Mechanical Ventilator Ventilator Ventilator Ventilator 08/05/16 10:01 Pulse 93 Resp 24 B/P 143/67 Pulse Ox 93 O2 Delivery Ventilator Intake and Output 08/04/16 08/04/16 08/05/16 15:00 23:00 07:00 Intake Total 90.57 ml 310.19 ml 134 ml Output Total 20 ml 95 ml 160 ml Balance 70.57 ml 215.19 ml -26 ml ANA LAURA OLIVEIRA MD Aug 05, 2016 10:40
--- NOTE | 2016-08-05 11:55 | PDOC ---
PULMONARY PROGRESS NOTES Subjective failed CPAP Vitals Vital Signs Date Time Temp Pulse Resp B/P Pulse Ox O2 Delivery O2 Flow Rate FiO2 08/05/16 11:40 18 Ventilator 08/05/16 11:00 93 98/58 92 08/05/16 07:00 98.1 98.1 General: Lethargic HEENT: Other (nc at perrl orally intubated nose clease. neck, no lap thyromegaly) Lungs: Other (decrease bs) Cardiovascular: Other (tachy) Abdomen: Soft, Non-tender, Other Extremities: Other (jaundice) Skin: Warm Labs Laboratory Tests Test 08/03/16 15:55 08/03/16 16:00 08/03/16 17:00 08/03/16 17:08 Urine Collection Type Unknown Urine Color [place] Urine Clarity Turbid Urine pH 5.0 Urine Specific [place] 1.020 Urine Protein 100mg/dL (NEG-TRACE) Urine Glucose (UA) Negativemg/dL (NEG) Urine Ketones (Stick) Negativemg/dL (NEG) Urine Blood Moderate (NEG) Urine Nitrite Negative (NEG) Urine Bilirubin Small (NEG) Urine Urobilinogen Dipstick 1.0mg/dL (0.2 mg/dL) Urine Leukocyte Esterase Negative (NEG) Urine RBC 6-10/HPF (0-2) Urine WBC 0/HPF (0-4) Urine Squamous Epithelial Cells Occ/LPF Urine Amorphous Sediment Present/HPF Urine Bacteria 0/HPF (0-FEW) Urine Hyaline Casts Few/HPF Urine Granular Casts Few/HPF Urine Mucus Slight/LPF Urine Random Creatinine 60.7mg/dL (Not Estab.) Urine Random Sodium 32mmol/L (Not Estab.) White Blood Count 11.2x10^3/uL (4.0-11.0) Red Blood Count 2.69x10^6/uL (4.30-5.70) Hemoglobin 8.6g/dL (13.0-17.5) Hematocrit 26.5% (39.0-53.0) Mean Corpuscular Volume 99fL (79-100) Mean Corpuscular Hemoglobin 32pg (25-35) Mean Corpuscular Hemoglobin Concent 33g/dL (31-37) Red Cell Distribution Width 16.3% (11.5-14.5) Platelet Count 82x10^3/uL (140-400) Neutrophils (%) (Auto) 91% (31-73) Lymphocytes (%) (Auto) 5% (24-48) Monocytes (%) (Auto) 4% (0-9) Eosinophils (%) (Auto) 0% (0-3) Basophils (%) (Auto) 0% (0-3) Neutrophils # (Auto) 10.1x10^3uL (1.8-7.7) Lymphocytes # (Auto) 0.6x10^3/uL (1.0-4.8) Monocytes # (Auto) 0.4x10^3/uL (0.0-1.1) Eosinophils # (Auto) 0.0x10^3/uL (0.0-0.7) Basophils # (Auto) 0.0x10^3/uL (0.0-0.2) Segmented Neutrophils % 75% (35-66) Band Neutrophils % 16% (0-9) Lymphocytes % 7% (24-48) Monocytes % 2% (0-10) Nucleated Red Blood Cells 4 Toxic Granulation Slight Dohle Bodies Present Platelet Estimate Decreased (ADEQUATE) Polychromasia Present Poikilocytosis Slight Basophilic Stippling Present Anisocytosis Slight Sodium Level 152mmol/L (136-145) Potassium Level 5.3mmol/L (3.5-5.1) Chloride Level 113mmol/L (98-107) Carbon Dioxide Level 25mmol/L (21-32) Anion Gap 14 (6-14) Blood Urea Nitrogen 95mg/dL (8-26) Creatinine 3.6mg/dL (0.7-1.3) Estimated GFR (Cockcroft-Gault) 17.6 Glucose Level 184mg/dL (70-99) Calcium Level 7.1mg/dL (8.5-10.1) Procalcitonin 44.51ng/mL (0.00-0.10) Digoxin Level 1.9ng/mL (0.9-2.0) Digoxin Last Dose Date 08/02/16 Digoxin Last Dose Time 0856 Hepatitis B Surface Antigen Negative (Negative) Hepatitis B Surface Antibody Non reactive (.) Prothrombin Time 17.4SEC (11.7-14.0) Prothromb Time International Ratio 1.5 (0.8-1.1) Activated Partial Thromboplast Time 44SEC (24-38) Glucose (Fingerstick) 165mg/dL (70-99) Test 08/04/16 07:00 08/04/16 08:00 08/04/16 11:21 08/04/16 16:44 White Blood Count 6.6x10^3/uL (4.0-11.0) Red Blood Count 2.51x10^6/uL (4.30-5.70) Hemoglobin 8.0g/dL (13.0-17.5) Hematocrit 23.9% (39.0-53.0) Mean Corpuscular Volume 95fL (79-100) Mean Corpuscular Hemoglobin 32pg (25-35) Mean Corpuscular Hemoglobin Concent 34g/dL (31-37) Red Cell Distribution Width 16.2% (11.5-14.5) Platelet Count 68x10^3/uL (140-400) Neutrophils (%) (Auto) 88% (31-73) Lymphocytes (%) (Auto) 8% (24-48) Monocytes (%) (Auto) 4% (0-9) Eosinophils (%) (Auto) 1% (0-3) Basophils (%) (Auto) 0% (0-3) Neutrophils # (Auto) 5.8x10^3uL (1.8-7.7) Lymphocytes # (Auto) 0.5x10^3/uL (1.0-4.8) Monocytes # (Auto) 0.2x10^3/uL (0.0-1.1) Eosinophils # (Auto) 0.1x10^3/uL (0.0-0.7) Basophils # (Auto) 0.0x10^3/uL (0.0-0.2) Sodium Level 144mmol/L (136-145) Potassium Level 3.5mmol/L (3.5-5.1) Chloride Level 103mmol/L (98-107) Carbon Dioxide Level 30mmol/L (21-32) Anion Gap 11 (6-14) Blood Urea Nitrogen 69mg/dL (8-26) Creatinine 3.1mg/dL (0.7-1.3) Estimated GFR (Cockcroft-Gault) 20.9 BUN/Creatinine Ratio 22 (6-20) Glucose Level 186mg/dL (70-99) Calcium Level 7.2mg/dL (8.5-10.1) Phosphorus Level 7.0mg/dL (2.6-4.7) Magnesium Level 2.2mg/dL (1.8-2.4) Total Bilirubin 4.8mg/dL (0.2-1.0) Aspartate Amino Transf (AST/SGOT) 49U/L (15-37) Alanine Aminotransferase (ALT/SGPT) 96U/L (16-63) Alkaline Phosphatase 69U/L (46-116) Total Protein 4.8g/dL (6.4-8.2) Albumin 2.0g/dL (3.4-5.0) Albumin/Globulin Ratio 0.7 (1.0-1.7) O2 Saturation 94% (92-99) Arterial Blood pH 7.51 (7.35-7.45) Arterial Blood pCO2 at Patient Temp 34mmHg (35-46) Arterial Blood pO2 at Patient Temp 77mmHg (75-108) Arterial Blood HCO3 26mmol/L (21-28) Arterial Blood Base Excess 3mmol/L (-3-3) FiO2 40 Glucose (Fingerstick) 115mg/dL (70-99) 129mg/dL (70-99) Test 08/05/16 05:30 08/05/16 09:00 White Blood Count 10.9x10^3/uL (4.0-11.0) Red Blood Count 2.86x10^6/uL (4.30-5.70) Hemoglobin 9.2g/dL (13.0-17.5) Hematocrit 27.4% (39.0-53.0) Mean Corpuscular Volume 96fL (79-100) Mean Corpuscular Hemoglobin 32pg (25-35) Mean Corpuscular Hemoglobin Concent 34g/dL (31-37) Red Cell Distribution Width 16.4% (11.5-14.5) Platelet Count 104x10^3/uL (140-400) Neutrophils (%) (Auto) 92% (31-73) Lymphocytes (%) (Auto) 2% (24-48) Monocytes (%) (Auto) 5% (0-9) Eosinophils (%) (Auto) 0% (0-3) Basophils (%) (Auto) 1% (0-3) Neutrophils # (Auto) 10.1x10^3uL (1.8-7.7) Lymphocytes # (Auto) 0.2x10^3/uL (1.0-4.8) Monocytes # (Auto) 0.5x10^3/uL (0.0-1.1) Eosinophils # (Auto) 0.0x10^3/uL (0.0-0.7) Basophils # (Auto) 0.1x10^3/uL (0.0-0.2) Sodium Level 145mmol/L (136-145) Potassium Level 4.4mmol/L (3.5-5.1) Chloride Level 105mmol/L (98-107) Carbon Dioxide Level 26mmol/L (21-32) Anion Gap 14 (6-14) Blood Urea Nitrogen 64mg/dL (8-26) Creatinine 3.0mg/dL (0.7-1.3) Estimated GFR (Cockcroft-Gault) 21.7 Glucose Level 139mg/dL (70-99) Calcium Level 8.4mg/dL (8.5-10.1) Phosphorus Level 6.8mg/dL (2.6-4.7) Albumin 2.7g/dL (3.4-5.0) O2 Saturation 90% (92-99) Arterial Blood pH 7.44 (7.35-7.45) Arterial Blood pCO2 at Patient Temp 39mmHg (35-46) Arterial Blood pO2 at Patient Temp 67mmHg (75-108) Arterial Blood HCO3 26mmol/L (21-28) Arterial Blood Base Excess 2mmol/L (-3-3) FiO2 35 Laboratory Tests Test 08/04/16 16:44 08/05/16 05:30 08/05/16 09:00 Glucose (Fingerstick) 129mg/dL (70-99) White Blood Count 10.9x10^3/uL (4.0-11.0) Red Blood Count 2.86x10^6/uL (4.30-5.70) Hemoglobin 9.2g/dL (13.0-17.5) Hematocrit 27.4% (39.0-53.0) Mean Corpuscular Volume 96fL (79-100) Mean Corpuscular Hemoglobin 32pg (25-35) Mean Corpuscular Hemoglobin Concent 34g/dL (31-37) Red Cell Distribution Width 16.4% (11.5-14.5) Platelet Count 104x10^3/uL (140-400) Neutrophils (%) (Auto) 92% (31-73) Lymphocytes (%) (Auto) 2% (24-48) Monocytes (%) (Auto) 5% (0-9) Eosinophils (%) (Auto) 0% (0-3) Basophils (%) (Auto) 1% (0-3) Neutrophils # (Auto) 10.1x10^3uL (1.8-7.7) Lymphocytes # (Auto) 0.2x10^3/uL (1.0-4.8) Monocytes # (Auto) 0.5x10^3/uL (0.0-1.1) Eosinophils # (Auto) 0.0x10^3/uL (0.0-0.7) Basophils # (Auto) 0.1x10^3/uL (0.0-0.2) Sodium Level 145mmol/L (136-145) Potassium Level 4.4mmol/L (3.5-5.1) Chloride Level 105mmol/L (98-107) Carbon Dioxide Level 26mmol/L (21-32) Anion Gap 14 (6-14) Blood Urea Nitrogen 64mg/dL (8-26) Creatinine 3.0mg/dL (0.7-1.3) Estimated GFR (Cockcroft-Gault) 21.7 Glucose Level 139mg/dL (70-99) Calcium Level 8.4mg/dL (8.5-10.1) Phosphorus Level 6.8mg/dL (2.6-4.7) Albumin 2.7g/dL (3.4-5.0) O2 Saturation 90% (92-99) Arterial Blood pH 7.44 (7.35-7.45) Arterial Blood pCO2 at Patient Temp 39mmHg (35-46) Arterial Blood pO2 at Patient Temp 67mmHg (75-108) Arterial Blood HCO3 26mmol/L (21-28) Arterial Blood Base Excess 2mmol/L (-3-3) FiO2 35 Medications Active Scripts Medications Dose Route/Sig Days Date Category Amlodipine Besylate 5 Mg Tablet 5 Mg PO DAILY 07/20/16 Reported Pradaxa (Dabigatran Etexilate Mesylate) 150 Mg Capsule 1 Cap PO BID 07/20/16 Reported Metoprolol Succinate ( Xl ) (Metoprolol Succinate) 100 Mg Tab.er.24h 1 Tab PO DAILY 07/20/16 Reported Comments cxr reviewed,08/04 mild CHF, improved Impression . 1. Expected respiratory failure, status post coronary artery bypass grafting. 2. Cardiogenic shock. followed by septic shock, improved 3. Early post-myocardial infarction complicated with ventricular fibrillation , s/p multiple shocks. 4. Status post implantation of Impella from mechanical circulating support. 5. 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 6. Tobacco use in remission. Spirometry revealed an FEV1, which was 3.2 liters preoperatively. 7. Nutrition, currently on tube feeding. 8. History of hypertension. 9. Severe cardiomyopathy ejection fraction 25%. 10. Peripheral artery disease. 11. Atrial fibrillation. 12. Encephalopathy multifactorial (hepatic, metabolic), improved 13. High grade fever, sepsis, ? source, less likely lungs.ct chest reviewed. responding to antibiotics 14. Abnormal LFT due to sepsis, improving 15. renal failure , on HD Plan . 1. d/w Dr Hamilton. on AC mode 1. Asynchronous breathing. will need Trach. scheduled today 2. Continue nutritional support with tube feeding. 3. off pressors, Pt does not tolerate dobutamine(increase HR) 4. HD 5. Continue BS empiric antibiotics. 6. further weaning after trach MICHAEL SIEGEL MD Aug 05, 2016 11:55
[2016-08-05] MEDS: SEVELAMER CARBONATE 2.4 GM PACKET. FT SCH ×2 (12:13→20:32)
[2016-08-05] MEDS ORDERED: IV NORMAL SALINE 1000ML BAG 1,000 ML IV PRN ×2 (12:28)
[2016-08-05] MEDS ORDERED: DIALYSIS PATIENT. MC PRN (12:30)
[2016-08-05] MEDS ORDERED: ALBUMIN HUMAN 25% 200 ML IV PRN (12:30)
[2016-08-05] MEDS ORDERED: 0.9 % SODIUM CHLORIDE 10 ML DISP.SYRIN. IV PRN ×2 (12:30)
--- NOTE | 2016-08-05 12:54 | PDOC ---
CARDIO Progress Notes Date and Time Date of Service 08/05/2016 Time of Evaluation 1242 Subjective Subjective: Other (awake) Comments: on hemodialysis Vitals Vitals Vital Signs Date Time Temp Pulse Resp B/P Pulse Ox O2 Delivery O2 Flow Rate FiO2 08/05/16 11:59 95 Ventilator 08/05/16 11:40 18 08/05/16 11:00 93 98/58 08/05/16 07:00 98.1 98.1 Weight Weight [ ] Stability Assessment Stability Assess.: unstable for transfer (Intesive V. sign monit. req) Input and Output Intake and Output Intake and Output 08/05/16 06:59 Intake Total 534.76 ml Output Total 260 ml Balance 274.76 ml Intake Oral 0 ml IV Total 394.76 ml Other 140 ml Output Urine Total 180 ml Gastric Drainage Total 80 ml # Bowel Movements 3 Laboratory Labs Laboratory Tests Test 08/04/16 16:44 08/05/16 05:30 08/05/16 09:00 08/05/16 12:01 Glucose (Fingerstick) 129mg/dL (70-99) 115mg/dL (70-99) White Blood Count 10.9x10^3/uL (4.0-11.0) Red Blood Count 2.86x10^6/uL (4.30-5.70) Hemoglobin 9.2g/dL (13.0-17.5) Hematocrit 27.4% (39.0-53.0) Mean Corpuscular Volume 96fL (79-100) Mean Corpuscular Hemoglobin 32pg (25-35) Mean Corpuscular Hemoglobin Concent 34g/dL (31-37) Red Cell Distribution Width 16.4% (11.5-14.5) Platelet Count 104x10^3/uL (140-400) Neutrophils (%) (Auto) 92% (31-73) Lymphocytes (%) (Auto) 2% (24-48) Monocytes (%) (Auto) 5% (0-9) Eosinophils (%) (Auto) 0% (0-3) Basophils (%) (Auto) 1% (0-3) Neutrophils # (Auto) 10.1x10^3uL (1.8-7.7) Lymphocytes # (Auto) 0.2x10^3/uL (1.0-4.8) Monocytes # (Auto) 0.5x10^3/uL (0.0-1.1) Eosinophils # (Auto) 0.0x10^3/uL (0.0-0.7) Basophils # (Auto) 0.1x10^3/uL (0.0-0.2) Sodium Level 145mmol/L (136-145) Potassium Level 4.4mmol/L (3.5-5.1) Chloride Level 105mmol/L (98-107) Carbon Dioxide Level 26mmol/L (21-32) Anion Gap 14 (6-14) Blood Urea Nitrogen 64mg/dL (8-26) Creatinine 3.0mg/dL (0.7-1.3) Estimated GFR (Cockcroft-Gault) 21.7 Glucose Level 139mg/dL (70-99) Calcium Level 8.4mg/dL (8.5-10.1) Phosphorus Level 6.8mg/dL (2.6-4.7) Albumin 2.7g/dL (3.4-5.0) O2 Saturation 90% (92-99) Arterial Blood pH 7.44 (7.35-7.45) Arterial Blood pCO2 at Patient Temp 39mmHg (35-46) Arterial Blood pO2 at Patient Temp 67mmHg (75-108) Arterial Blood HCO3 26mmol/L (21-28) Arterial Blood Base Excess 2mmol/L (-3-3) FiO2 35 Microbiology Micro Microbiology 08/02/16 Blood Culture - Preliminary, Resulted NO GROWTH AFTER 2 DAYS 08/03/16 Sputum Culture - Preliminary, Resulted 08/03/16 Sputum Result 1 - Preliminary, Resulted 08/03/16 Sputum Result 2 - Preliminary, Resulted 08/02/16 Urine Culture - Preliminary, Resulted 08/02/16 Urine Culture Result 1 (MILEY) - Preliminary, Resulted 08/03/16 Gram Stain - Final, Complete Case Discussion Case Discussed with: Family, Other (RN) Continued Hospitalization Reason for continued Hospitali: IVABX, abnormal labs Physical Exam HEENT: Neck Supple W Full Motion Chest: Symmetric, Other (oral ETT/oral gastric tube; small amounts of drainage from distal portion of sternal incision ) LUNGS: Other (coarse) Heart: S1S2, irregularly irregular, other (atrial flutter) Abdomen: Soft N/T Extremities: Other (anasarca; DP/PT pulses by Doppler; feet warm; drainage from upper and lower leg incisions - upper: sanguinous; lower - serous) Neurology: follow commands, other (awake) Other Exams scleral icterus Assessment Assessment 1. STEMI troponin peaked @ 96.465 CABG on 07/25/2016 with FLETCHER to LAD; SVG to LAD; SVG to OM1 and SVG to RPDA VF arrest post-op with post-op SC continue amiodarone 2. cardiogenic shock Impella removed 07/28/2016 - LVEF ~ 25% by echo TTE on 07/26/2016 with severe global hypokinesis of the left ventricle distal 2/3 of the LV is severely hypokinetic with akinesis of the mid to distal LAD and apex LVEF depressed at about 20%; repeat limited echo on 08/02/2016 - LVEF ~ 25- 30% off vasopressive support 3. ischemic cardiomyopathy LVEF mildly depressed @ 45% on echo pre-op now with HD for fluid management and JAKE BB as BP tolerates; no RADHA due to JAKE/dialysis 4. acute respiratory failure remains intubated with vent failed CPAP trial last night - plan to trach later today; ? PEG also - GI consult in process 5. JAKE continues on HD per nephrology 6. sepsis abx per ID CT chest/abd/pelvis 08/03/16 with perihepatic fluid; fluid in the paracolic gutter and anasarca suggested CT chest suggestive of atelectasis or pneumonia 7. HLD statin therapy 8. atrial fib fib/flutter today with reasonably controlled rate 9. small right frontal SDH decreased on CT scan done 08/03/2016 10. 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
[2016-08-05] MEDS ORDERED: PROPOFOL 20 ML IV ONE (13:01)
[2016-08-05] MEDS ORDERED: ROCURONIUM 50 MG/5 ML VIAL. ONE (13:01)
[2016-08-05] MEDS ORDERED: ONDANSETRON PF 4 MG/2 ML VIAL. ONE (13:05)
[2016-08-05] MEDS ORDERED: DEXAMETHASONE SOD PHOS 20 MG/5 ML VIAL. ONE (13:05)
[2016-08-05] MEDS ORDERED: FAMOTIDINE 20 MG/2 ML VIAL ONE (13:05)
[2016-08-05] MEDS ORDERED: MIDAZOLAM HCL/PF 2 MG/2 ML VIAL. ONE (13:13)
--- NOTE | 2016-08-05 13:23 | PDOC2 ---
GI CONSULT Reason For Consult: PEG HPI: HPI: 56 y/o male admitted 07/20/16. History reviewed w/ Osiris Amezquita and from chart. Complicated hospital course including STEMI, CABG x 3 for severe ischemic cardiomyopathy (chest wound closure 07/27), post-op ME, cardiogenic/septic shock (on atbx w/ ID), resp failure, renal failure (on HD w/ nephrology), encephalopathy and subdural hematoma (neuro following), abnormal LFTs. Tracheostomy is to be placed this afternoon. GI consulted is requested at this time for PEG tube placement. History from , Nancy. GI history significant for heartburn w/ frequent use of Rolaids, no previous EGD, and 6 polyps on colonoscopy ~3-4 years ago (says at [facility]). Denies other chronic GI issues. No previous abdominal surgeries. Most recent labs: WBC 10.9, Hgb 9.2, plt 104, INR 1.5, bili 4.8 (improved), AST 49, ALT 96. PMH: PMH: per HPI - plus A Fib, HTN, PAD, colon polyps, GERD, inguinal hernia repair (as a baby) FH: Family History: CAD Social History: Smoke: 1 pack per day ALCOHOL: rare Drugs: None ROS: Unable to obtain. VItals: Vitals: Vital Signs Date Time Temp Pulse Resp B/P Pulse Ox O2 Delivery O2 Flow Rate FiO2 08/05/16 11:59 95 Ventilator 08/05/16 11:40 18 08/05/16 11:00 93 98/58 08/05/16 07:00 98.1 98.1 Labs: Labs: Laboratory Tests Test 08/04/16 16:44 08/05/16 05:30 08/05/16 09:00 08/05/16 12:01 Glucose (Fingerstick) 129mg/dL (70-99) 115mg/dL (70-99) White Blood Count 10.9x10^3/uL (4.0-11.0) Red Blood Count 2.86x10^6/uL (4.30-5.70) Hemoglobin 9.2g/dL (13.0-17.5) Hematocrit 27.4% (39.0-53.0) Mean Corpuscular Volume 96fL (79-100) Mean Corpuscular Hemoglobin 32pg (25-35) Mean Corpuscular Hemoglobin Concent 34g/dL (31-37) Red Cell Distribution Width 16.4% (11.5-14.5) Platelet Count 104x10^3/uL (140-400) Neutrophils (%) (Auto) 92% (31-73) Lymphocytes (%) (Auto) 2% (24-48) Monocytes (%) (Auto) 5% (0-9) Eosinophils (%) (Auto) 0% (0-3) Basophils (%) (Auto) 1% (0-3) Neutrophils # (Auto) 10.1x10^3uL (1.8-7.7) Lymphocytes # (Auto) 0.2x10^3/uL (1.0-4.8) Monocytes # (Auto) 0.5x10^3/uL (0.0-1.1) Eosinophils # (Auto) 0.0x10^3/uL (0.0-0.7) Basophils # (Auto) 0.1x10^3/uL (0.0-0.2) Sodium Level 145mmol/L (136-145) Potassium Level 4.4mmol/L (3.5-5.1) Chloride Level 105mmol/L (98-107) Carbon Dioxide Level 26mmol/L (21-32) Anion Gap 14 (6-14) Blood Urea Nitrogen 64mg/dL (8-26) Creatinine 3.0mg/dL (0.7-1.3) Estimated GFR (Cockcroft-Gault) 21.7 Glucose Level 139mg/dL (70-99) Calcium Level 8.4mg/dL (8.5-10.1) Phosphorus Level 6.8mg/dL (2.6-4.7) Albumin 2.7g/dL (3.4-5.0) O2 Saturation 90% (92-99) Arterial Blood pH 7.44 (7.35-7.45) Arterial Blood pCO2 at Patient Temp 39mmHg (35-46) Arterial Blood pO2 at Patient Temp 67mmHg (75-108) Arterial Blood HCO3 26mmol/L (21-28) Arterial Blood Base Excess 2mmol/L (-3-3) FiO2 35 Allergies: Coded Allergies: No Known Drug Allergies (Unverified , 07/27/16) Medications: Current Medications Medications (Trade) Dose Ordered Sig/Treva Route PRN Reason Start Time Stop Time Status Last Admin Dose Admin Heparin Sodium (Porcine) 5,000 unit Q12HR SQ 08/04/16 21:00 08/05/16 07:47 Sevelamer Carbonate (Renvela) 2.4 gm BID FT 08/05/16 10:00 08/05/16 12:13 Imaging: Imaging: CXR 08/04/16 IMPRESSION 1. Stable suspected bilateral lower lobe infiltrate with small effusions. 2. Stable postoperative changes and support lines and tubes. Renal US 08/03/16 IMPRESSION: 1. Small complex right renal mass. 2. No evidence of right hydronephrosis. 3. CT scanning may be useful for further evaluation of the right renal mass and the left kidney which was not visualized on this limited study. CT chest/A/P 08/03/16 IMPRESSION: Trace bilateral pleural effusions. Significant volume loss is present in both lower lobes. This finding would be consistent with atelectasis or pneumonia. Perihepatic fluid and fluid along the right paracolic gutter. This is new relative to the previous exam. Mild stranding in the mesentery and surrounding the kidneys is nonspecific but may be a function of the abdominal fluid. Diffuse soft tissue swelling suggesting a systemic process such as anasarca. A focal mass or definite inflammatory process in the abdomen or pelvis is not seen. Head CT 08/03/16 IMPRESSION: Extra-axial fluid collection compatible with a subdural or epidural hematoma persists posteriorly near the right hemispheric vertex but is less conspicuous. It is no larger and has probably partially dissipated. Suspect bland infarct in the right frontal lobe. The finding is not certain. No parenchymal hemorrhage is seen. PE: GEN: intubated HEENT: atraumatic, PERRL LUNGS: vent HEART: tachycardic, sternotomy ABD: soft, some edema EXTREMITY: some generalized edema SKIN:no rashes NEURO/PSYCH: awake, nods A/P: A/P: S/p CABG/intra-op ME Cardiogenic/septic shock Resp failure Subdural hematoma Thrombocytopenia Abnormal LFTs -going for trach this afternoon -- D/w Dr. Markus scott to proceed w/ PEG (in OR per anesthesia) after trach. D/w RUDOLPH Awad Aug 05, 2016 13:23
--- NOTE | 2016-08-05 13:31 | PDOC ---
PROGRESS NOTES Chief Complaint Chief Complaint Chest pain STEMI 1. STEMI: 3-vessel dz by cardiac cath (07/20/16). s/p CABG on 07/25/2016 : FLETCHER to LAD; SVG to LAD; SVG to OM1 and SVG to RPDA. VF arrest after chest closed; reopened and placed back on bypass then converted to LVAD. chest closed yesterday 2. cardiogenic shock 3. PAD 4. Cardiomyopathy: EF 20% 5. Afib: on amiodarone and metoprolol. off dig 6. HTN 7. metabolic encephalopathy with 2, better 08/04 8. HLD: on statin, currently on hold 9. DM: on insulin gtt 10: Nutrition: cautious NG feed today 11. liver shock with 2 12. MILD ICH, no intervention 13. possible septic shock 14. JAKE, with 2,. ATN poor prognosis, cont current meds fu with CT, card, pulm, neurosx on OGT feeding, dvt, gi ppx talked to at bedside, off levaphed and vasopressin, keep MAP >65 lasix d[address] as per CT ON iv abx as per CT, fu ucx, bcx head CT, chest/abd/pelvis CT showed PNA check cdiff HD since 08/03 may need trach today CC time 40 min History of Present Illness History of Present Illness intubated, off sedation 3 days, spontaneously open eyes, mental better 08/04, open eyes, follow commands by squeezing hands tachycardia, afib, off dobutamine low bp , on levaphod and vaso since 08/02, off 08/05 on OGT feeding EF 20% Head CT 08/01 showed mild ICH higher WBC fever, hypotension 08/02 diarrhea higher Cr on HD now Vitals Vitals Vital Signs Date Time Temp Pulse Resp B/P Pulse Ox O2 Delivery O2 Flow Rate FiO2 08/05/16 12:10 26 96 08/05/16 12:00 97.6 110 100/58 Ventilator 97.6 Physical Exam Physical Exam GENERAL: Intubated, 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 HEENT: Pupils reactive, scleral icterus improving NECK: Supple LUNGS: Clear HEART: S1S2 CHEST: sternotomy: D/C/I ABD: Soft, NT EXT: edema improved, warm well perfused, pedal pulses palpable 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: Intubated,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, extremities flaccid SKIN: No rash IV: ok General: Other (sedated, intubated, moving head) Heart: Other (tachy, irregular) Lungs: Other (decrease bs) Abdomen: Soft, Other (distended) Extremities: No edema, Other (+ edema x4) Skin: No rashes Labs LABS Laboratory Tests Test 08/04/16 16:44 08/05/16 05:30 08/05/16 09:00 08/05/16 12:01 Glucose (Fingerstick) 129mg/dL (70-99) 115mg/dL (70-99) White Blood Count 10.9x10^3/uL (4.0-11.0) Red Blood Count 2.86x10^6/uL (4.30-5.70) Hemoglobin 9.2g/dL (13.0-17.5) Hematocrit 27.4% (39.0-53.0) Mean Corpuscular Volume 96fL (79-100) Mean Corpuscular Hemoglobin 32pg (25-35) Mean Corpuscular Hemoglobin Concent 34g/dL (31-37) Red Cell Distribution Width 16.4% (11.5-14.5) Platelet Count 104x10^3/uL (140-400) Neutrophils (%) (Auto) 92% (31-73) Lymphocytes (%) (Auto) 2% (24-48) Monocytes (%) (Auto) 5% (0-9) Eosinophils (%) (Auto) 0% (0-3) Basophils (%) (Auto) 1% (0-3) Neutrophils # (Auto) 10.1x10^3uL (1.8-7.7) Lymphocytes # (Auto) 0.2x10^3/uL (1.0-4.8) Monocytes # (Auto) 0.5x10^3/uL (0.0-1.1) Eosinophils # (Auto) 0.0x10^3/uL (0.0-0.7) Basophils # (Auto) 0.1x10^3/uL (0.0-0.2) Sodium Level 145mmol/L (136-145) Potassium Level 4.4mmol/L (3.5-5.1) Chloride Level 105mmol/L (98-107) Carbon Dioxide Level 26mmol/L (21-32) Anion Gap 14 (6-14) Blood Urea Nitrogen 64mg/dL (8-26) Creatinine 3.0mg/dL (0.7-1.3) Estimated GFR (Cockcroft-Gault) 21.7 Glucose Level 139mg/dL (70-99) Calcium Level 8.4mg/dL (8.5-10.1) Phosphorus Level 6.8mg/dL (2.6-4.7) Albumin 2.7g/dL (3.4-5.0) O2 Saturation 90% (92-99) Arterial Blood pH 7.44 (7.35-7.45) Arterial Blood pCO2 at Patient Temp 39mmHg (35-46) Arterial Blood pO2 at Patient Temp 67mmHg (75-108) Arterial Blood HCO3 26mmol/L (21-28) Arterial Blood Base Excess 2mmol/L (-3-3) FiO2 35 Review of Systems Review of Systems no fever, chills, Assessment and Plan Assessmemt and Plan Problems Medical Problems: (1) CAD (coronary artery disease), [place] coronary artery Status: Acute (2) Chest pain Status: Acute (3) STEMI (ST elevation myocardial infarction) Status: Acute Problems: Comment Review of Relevant I have reviewed the following items leonidas (where applicable) has been applied. Labs Laboratory Tests Test 08/03/16 15:55 08/03/16 16:00 08/03/16 17:00 08/03/16 17:08 Urine Collection Type Unknown Urine Color Keke Urine Clarity Turbid Urine pH 5.0 Urine Specific [place] 1.020 Urine Protein 100mg/dL (NEG-TRACE) Urine Glucose (UA) Negativemg/dL (NEG) Urine Ketones (Stick) Negativemg/dL (NEG) Urine Blood Moderate (NEG) Urine Nitrite Negative (NEG) Urine Bilirubin Small (NEG) Urine Urobilinogen Dipstick 1.0mg/dL (0.2 mg/dL) Urine Leukocyte Esterase Negative (NEG) Urine RBC 6-10/HPF (0-2) Urine WBC 0/HPF (0-4) Urine Squamous Epithelial Cells Occ/LPF Urine Amorphous Sediment Present/HPF Urine Bacteria 0/HPF (0-FEW) Urine Hyaline Casts Few/HPF Urine Granular Casts Few/HPF Urine Mucus Slight/LPF Urine Random Creatinine 60.7mg/dL (Not Estab.) Urine Random Sodium 32mmol/L (Not Estab.) White Blood Count 11.2x10^3/uL (4.0-11.0) Red Blood Count 2.69x10^6/uL (4.30-5.70) Hemoglobin 8.6g/dL (13.0-17.5) Hematocrit 26.5% (39.0-53.0) Mean Corpuscular Volume 99fL (79-100) Mean Corpuscular Hemoglobin 32pg (25-35) Mean Corpuscular Hemoglobin Concent 33g/dL (31-37) Red Cell Distribution Width 16.3% (11.5-14.5) Platelet Count 82x10^3/uL (140-400) Neutrophils (%) (Auto) 91% (31-73) Lymphocytes (%) (Auto) 5% (24-48) Monocytes (%) (Auto) 4% (0-9) Eosinophils (%) (Auto) 0% (0-3) Basophils (%) (Auto) 0% (0-3) Neutrophils # (Auto) 10.1x10^3uL (1.8-7.7) Lymphocytes # (Auto) 0.6x10^3/uL (1.0-4.8) Monocytes # (Auto) 0.4x10^3/uL (0.0-1.1) Eosinophils # (Auto) 0.0x10^3/uL (0.0-0.7) Basophils # (Auto) 0.0x10^3/uL (0.0-0.2) Segmented Neutrophils % 75% (35-66) Band Neutrophils % 16% (0-9) Lymphocytes % 7% (24-48) Monocytes % 2% (0-10) Nucleated Red Blood Cells 4 Toxic Granulation Slight Dohle Bodies Present Platelet Estimate Decreased (ADEQUATE) Polychromasia Present Poikilocytosis Slight Basophilic Stippling Present Anisocytosis Slight Sodium Level 152mmol/L (136-145) Potassium Level 5.3mmol/L (3.5-5.1) Chloride Level 113mmol/L (98-107) Carbon Dioxide Level 25mmol/L (21-32) Anion Gap 14 (6-14) Blood Urea Nitrogen 95mg/dL (8-26) Creatinine 3.6mg/dL (0.7-1.3) Estimated GFR (Cockcroft-Gault) 17.6 Glucose Level 184mg/dL (70-99) Calcium Level 7.1mg/dL (8.5-10.1) Procalcitonin 44.51ng/mL (0.00-0.10) Digoxin Level 1.9ng/mL (0.9-2.0) Digoxin Last Dose Date 08/02/16 Digoxin Last Dose Time 0856 Hepatitis B Surface Antigen Negative (Negative) Hepatitis B Surface Antibody Non reactive (.) Prothrombin Time 17.4SEC (11.7-14.0) Prothromb Time International Ratio 1.5 (0.8-1.1) Activated Partial Thromboplast Time 44SEC (24-38) Glucose (Fingerstick) 165mg/dL (70-99) Test 08/04/16 07:00 08/04/16 08:00 08/04/16 11:21 08/04/16 16:44 White Blood Count 6.6x10^3/uL (4.0-11.0) Red Blood Count 2.51x10^6/uL (4.30-5.70) Hemoglobin 8.0g/dL (13.0-17.5) Hematocrit 23.9% (39.0-53.0) Mean Corpuscular Volume 95fL (79-100) Mean Corpuscular Hemoglobin 32pg (25-35) Mean Corpuscular Hemoglobin Concent 34g/dL (31-37) Red Cell Distribution Width 16.2% (11.5-14.5) Platelet Count 68x10^3/uL (140-400) Neutrophils (%) (Auto) 88% (31-73) Lymphocytes (%) (Auto) 8% (24-48) Monocytes (%) (Auto) 4% (0-9) Eosinophils (%) (Auto) 1% (0-3) Basophils (%) (Auto) 0% (0-3) Neutrophils # (Auto) 5.8x10^3uL (1.8-7.7) Lymphocytes # (Auto) 0.5x10^3/uL (1.0-4.8) Monocytes # (Auto) 0.2x10^3/uL (0.0-1.1) Eosinophils # (Auto) 0.1x10^3/uL (0.0-0.7) Basophils # (Auto) 0.0x10^3/uL (0.0-0.2) Sodium Level 144mmol/L (136-145) Potassium Level 3.5mmol/L (3.5-5.1) Chloride Level 103mmol/L (98-107) Carbon Dioxide Level 30mmol/L (21-32) Anion Gap 11 (6-14) Blood Urea Nitrogen 69mg/dL (8-26) Creatinine 3.1mg/dL (0.7-1.3) Estimated GFR (Cockcroft-Gault) 20.9 BUN/Creatinine Ratio 22 (6-20) Glucose Level 186mg/dL (70-99) Calcium Level 7.2mg/dL (8.5-10.1) Phosphorus Level 7.0mg/dL (2.6-4.7) Magnesium Level 2.2mg/dL (1.8-2.4) Total Bilirubin 4.8mg/dL (0.2-1.0) Aspartate Amino Transf (AST/SGOT) 49U/L (15-37) Alanine Aminotransferase (ALT/SGPT) 96U/L (16-63) Alkaline Phosphatase 69U/L (46-116) Total Protein 4.8g/dL (6.4-8.2) Albumin 2.0g/dL (3.4-5.0) Albumin/Globulin Ratio 0.7 (1.0-1.7) O2 Saturation 94% (92-99) Arterial Blood pH 7.51 (7.35-7.45) Arterial Blood pCO2 at Patient Temp 34mmHg (35-46) Arterial Blood pO2 at Patient Temp 77mmHg (75-108) Arterial Blood HCO3 26mmol/L (21-28) Arterial Blood Base Excess 3mmol/L (-3-3) FiO2 40 Glucose (Fingerstick) 115mg/dL (70-99) 129mg/dL (70-99) Test 08/05/16 05:30 08/05/16 09:00 08/05/16 12:01 White Blood Count 10.9x10^3/uL (4.0-11.0) Red Blood Count 2.86x10^6/uL (4.30-5.70) Hemoglobin 9.2g/dL (13.0-17.5) Hematocrit 27.4% (39.0-53.0) Mean Corpuscular Volume 96fL (79-100) Mean Corpuscular Hemoglobin 32pg (25-35) Mean Corpuscular Hemoglobin Concent 34g/dL (31-37) Red Cell Distribution Width 16.4% (11.5-14.5) Platelet Count 104x10^3/uL (140-400) Neutrophils (%) (Auto) 92% (31-73) Lymphocytes (%) (Auto) 2% (24-48) Monocytes (%) (Auto) 5% (0-9) Eosinophils (%) (Auto) 0% (0-3) Basophils (%) (Auto) 1% (0-3) Neutrophils # (Auto) 10.1x10^3uL (1.8-7.7) Lymphocytes # (Auto) 0.2x10^3/uL (1.0-4.8) Monocytes # (Auto) 0.5x10^3/uL (0.0-1.1) Eosinophils # (Auto) 0.0x10^3/uL (0.0-0.7) Basophils # (Auto) 0.1x10^3/uL (0.0-0.2) Sodium Level 145mmol/L (136-145) Potassium Level 4.4mmol/L (3.5-5.1) Chloride Level 105mmol/L (98-107) Carbon Dioxide Level 26mmol/L (21-32) Anion Gap 14 (6-14) Blood Urea Nitrogen 64mg/dL (8-26) Creatinine 3.0mg/dL (0.7-1.3) Estimated GFR (Cockcroft-Gault) 21.7 Glucose Level 139mg/dL (70-99) Calcium Level 8.4mg/dL (8.5-10.1) Phosphorus Level 6.8mg/dL (2.6-4.7) Albumin 2.7g/dL (3.4-5.0) O2 Saturation 90% (92-99) Arterial Blood pH 7.44 (7.35-7.45) Arterial Blood pCO2 at Patient Temp 39mmHg (35-46) Arterial Blood pO2 at Patient Temp 67mmHg (75-108) Arterial Blood HCO3 26mmol/L (21-28) Arterial Blood Base Excess 2mmol/L (-3-3) FiO2 35 Glucose (Fingerstick) 115mg/dL (70-99) Laboratory Tests Test 08/04/16 16:44 08/05/16 05:30 08/05/16 09:00 08/05/16 12:01 Glucose (Fingerstick) 129mg/dL (70-99) 115mg/dL (70-99) White Blood Count 10.9x10^3/uL (4.0-11.0) Red Blood Count 2.86x10^6/uL (4.30-5.70) Hemoglobin 9.2g/dL (13.0-17.5) Hematocrit 27.4% (39.0-53.0) Mean Corpuscular Volume 96fL (79-100) Mean Corpuscular Hemoglobin 32pg (25-35) Mean Corpuscular Hemoglobin Concent 34g/dL (31-37) Red Cell Distribution Width 16.4% (11.5-14.5) Platelet Count 104x10^3/uL (140-400) Neutrophils (%) (Auto) 92% (31-73) Lymphocytes (%) (Auto) 2% (24-48) Monocytes (%) (Auto) 5% (0-9) Eosinophils (%) (Auto) 0% (0-3) Basophils (%) (Auto) 1% (0-3) Neutrophils # (Auto) 10.1x10^3uL (1.8-7.7) Lymphocytes # (Auto) 0.2x10^3/uL (1.0-4.8) Monocytes # (Auto) 0.5x10^3/uL (0.0-1.1) Eosinophils # (Auto) 0.0x10^3/uL (0.0-0.7) Basophils # (Auto) 0.1x10^3/uL (0.0-0.2) Sodium Level 145mmol/L (136-145) Potassium Level 4.4mmol/L (3.5-5.1) Chloride Level 105mmol/L (98-107) Carbon Dioxide Level 26mmol/L (21-32) Anion Gap 14 (6-14) Blood Urea Nitrogen 64mg/dL (8-26) Creatinine 3.0mg/dL (0.7-1.3) Estimated GFR (Cockcroft-Gault) 21.7 Glucose Level 139mg/dL (70-99) Calcium Level 8.4mg/dL (8.5-10.1) Phosphorus Level 6.8mg/dL (2.6-4.7) Albumin 2.7g/dL (3.4-5.0) O2 Saturation 90% (92-99) Arterial Blood pH 7.44 (7.35-7.45) Arterial Blood pCO2 at Patient Temp 39mmHg (35-46) Arterial Blood pO2 at Patient Temp 67mmHg (75-108) Arterial Blood HCO3 26mmol/L (21-28) Arterial Blood Base Excess 2mmol/L (-3-3) FiO2 35 Microbiology 08/02/16 Blood Culture - Preliminary, Resulted NO GROWTH AFTER 2 DAYS 08/03/16 Sputum Culture - Preliminary, Resulted 08/03/16 Sputum Result 1 - Preliminary, Resulted 08/03/16 Sputum Result 2 - Preliminary, Resulted 08/02/16 Urine Culture - Preliminary, Resulted 08/02/16 Urine Culture Result 1 (MILEY) - Preliminary, Resulted 08/03/16 Gram Stain - Final, Complete Medications Current Medications Nitroglycerin 0.4 mg 0.4 mg PRN Q5MIN PRN SL CP RATING > 1/10; Start 07/20/16 at 09:45; Stop 07/20/16 at 15:05; Status DC Nitroglycerin/ Dextrose (Nitroglycerin Drip) 250 ml @ 3 mls/hr 1X ONCE IV Last administered on 07/20/16t 10:02; Start 07/20/16 at 10:30; Stop 07/23/16 at 21: 49; Status DC Morphine Sulfate 2 mg PRN Q15MIN PRN IV/SQ PAIN GREATER THAN 3/10; Start at 09:45; Stop 07/21/16 at 09:44; Status DC Ondansetron HCl (Zofran) 4 mg PRN Q8HRS PRN IV NAUSEA/VOMITING; Start 07/20/16 at 12:30; Stop 07/20/16 at 13:36; Status DC Morphine Sulfate 2 mg 2 mg PRN Q2HR PRN IV PAIN; Start 07/20/16 at 12:30; Stop 07/21/16 at 12:29; Status DC Heparin Sodium/ Dextrose 500 ml @ 0 mls/hr CONT PRN IV . Last administered on 10:32; Start 07/20/16 at 13:00; Stop 07/21/16 at 14:50; Status DC Metoprolol Tartrate (Lopressor) 5 mg Q6HRS IVP ; Start 07/20/16 at 13:00; Stop at 14:53; Status DC Aspirin (Ecotrin) 325 mg [id number] PO Last administered on 07/21/16 08:11; Start 07/20/16 at 13:00; Stop 07/21/16 at 17:20; Status DC Ondansetron HCl (Zofran) 4 mg PRN Q6HRS PRN IV NAUSEA/VOMITING; Start 07/20/16 at 13:35; Stop 07/26/16 at 11:41; Status DC Acetaminophen (Tylenol) 500 mg PRN Q6HRS PRN PO MILD PAIN / TEMP Last administered on 07/29/16 09:55; Start 07/20/16 at 13:45; Stop 07/29/16 at 13:38 ; Status DC Docusate Sodium (Colace) 100 mg DAILY PO Last administered on 07/29/16 09:54; Start 07/20/16 at 15:00; Stop 07/29/16 at 10:03; Status DC Iohexol 100 ml 100 ml STK-MED ONCE .ROUTE ; Start 07/20/16 at 12:40; Stop at 13:44; Status DC Heparin Sodium/ Sodium Chloride 1,000 ml @ As Directed STK-MED ONCE .ROUTE ; Start 07/20/16 at 12:41; Stop 07/20/16 at 13:44; Status DC Lidocaine HCl 20 ml STK-MED ONCE .ROUTE ; Start 07/20/16 at 12:41; Stop 07/20/16 at 13:44; Status DC Fentanyl Citrate (Fentanyl 2ml Vial) 100 mcg STK-MED ONCE .ROUTE ; Start at 13:42; Stop 07/20/16 at 13:45; Status DC Midazolam HCl (Versed) 2 mg STK-MED ONCE .ROUTE ; Start 07/20/16 at 13:42; Stop 07/20/16 at 13:45; Status DC Heparin Sodium/ Sodium Chloride 1,000 unit 1X ONCE IART Last administered on 14:29; Start 07/20/16 at 14:00; Stop 07/20/16 at 14:01; Status DC Heparin Sodium/ Sodium Chloride 1,000 unit 1X ONCE IART Last administered on 14:29; Start 07/20/16 at 14:00; Stop 07/20/16 at 14:01; Status DC Midazolam HCl (Versed) 2 mg 1X ONCE IV Last administered on 07/20/16 14:28; Start 07/20/16 at 14:00; Stop 07/20/16 at 14:01; Status DC Fentanyl Citrate (Fentanyl 2ml Vial) 100 mcg 1X ONCE IV Last administered on 14:28; Start 07/20/16 at 14:00; Stop 07/20/16 at 14:01; Status DC Iohexol (Omnipaque 300 Mg/ml) 100 ml 1X ONCE IART Last administered on 14:29; Start 07/20/16 at 14:00; Stop 07/20/16 at 14:01; Status DC Lidocaine HCl 20 ml 1X ONCE IJ Last administered on 07/20/16 14:29; Start 07/20 at 14:00; Stop 07/20/16 at 14:01; Status DC Midazolam HCl (Versed) 2 mg STK-MED ONCE .ROUTE ; Start 07/20/16 at 14:15; Stop 07/20/16 at 14:16; Status DC Sodium Chloride 3 ml 3 ml QSHIFT PRN IV AFTER MEDS AND BLOOD DRAWS; Start at 14:45; Stop 07/29/16 at 13:51; Status DC Sodium Chloride (Iv Sodium Chloride 0.9% 1000ml Bag) 1,000 ml @ 60 mls/hr [id number] IV Last administered on 07/20/16 14:44; Start 07/20/16 at 14:44; Stop at 00:43; Status DC Metoprolol Tartrate (Lopressor) 12.5 mg BID PO ; Start 07/20/16 at 21:00; Stop at 21:00; Status DC Lisinopril (Prinivil) 5 mg DAILY PO Last administered on 07/20/16 16:25; Start 07/20/16 at 15:00; Stop 07/20/16 at 17:21; Status DC Atorvastatin Calcium (Lipitor) 20 mg QHS PO Last administered on 07/20/16 20:33 ; Start 07/20/16 at 21:00; Stop 07/21/16 at 08:11; Status DC Nitroglycerin (Nitrostat) 0.4 mg PRN Q5MIN PRN SL CHEST PAIN Last administered on 07/25/16 04:55; Start 07/20/16 at 14:45; Stop 07/26/16 at 11:41; Status DC Hydralazine HCl (Apresoline) 10 mg PRN Q4HRS PRN IVP ELEVATED BP, SEE COMMENTS Last administered on 07/31/16 10:58; Start 07/20/16 at 17:15; Stop 07/31/16 at 13:31; Status DC Metoprolol Tartrate (Lopressor) 50 mg BID PO Last administered on 07/22/16 08: 31; Start 07/20/16 at 21:00; Stop 07/22/16 at 19:03; Status DC Alprazolam (Xanax) 0.25 mg PRN Q8HRS PRN PO ANXIETY / AGITATION Last administered on 07/24/16 21:34; Start 07/20/16 at 17:30; Stop 07/29/16 at 13:38; Status DC Heparin Sodium (Porcine) 2050 unit 2,050 unit PRN Q6HRS PRN IV FOR UFH LEVEL LESS THAN 0.2 Last administered on 07/21/16 04:24; Start 07/20/16 at 19:45; Stop 07/26/16 at 08:55; Status DC Heparin Sodium/ Dextrose 500 ml @ 19.4 mls/hr CONT PRN IV SEE I/O RECORD; Start 07/20/16 at 19:45; Stop 07/21/16 at 16:24; Status DC Heparin Sodium (Porcine) (Heparin Sodium) 2,050 unit PRN Q6HRS PRN IV FOR UFH LEVEL LESS THAN 0.2; Start 07/20/16 at 19:45; Status UNV Atorvastatin Calcium (Lipitor) 40 mg QHS PO Last administered on 08/04/16 22: 10; Start 07/21/16 at 21:00 Iodixanol (Visipaque 320) 200 ml STK-MED ONCE .ROUTE ; Start 07/20/16 at 14:00; Stop 07/21/16 at 08:26; Status DC Zolpidem Tartrate (Ambien) 5 mg PRN QHS PRN PO INSOMNIA, MAY REPEAT IN 1HR; Start 07/21/16 at 15:30; Stop 07/29/16 at 13:38; Status DC Metoprolol Tartrate 25 mg 25 mg 1X ONCE PO ; Start 07/22/16 at 06:00; Stop at 06:02; Status DC Cefazolin Sodium/ Dextrose 50 ml @ 100 mls/hr 1X ONCE IV ; Start 07/22/16 at 06 :00; Stop 07/22/16 at 06:29; Status DC Heparin Sodium/ Dextrose 500 ml @ 0 mls/hr CONT PRN IV SEE I/O RECORD Last administered on 07/24/16 01:40; Start 07/21/16 at 16:30; Stop 07/26/16 at 08:55; Status DC Lidocaine HCl 2 ml 2 ml 1X PRN PRN ID IV START; Start 07/25/16 at 06:00; Stop 07/26/16 at 05:59; Status Cancel Lactated Ringer's (Iv Lactated Ringers) 1,000 ml @ 0 mls/hr Q0M IV Last administered on 07/25/16 07:30; Start 07/25/16 at 06:00; Stop 07/25/16 at 17:59 ; Status DC Fentanyl Citrate (Fentanyl 2ml Vial) 25 mcg PRN Q5MIN PRN IV Acute Pain; Start 07/22/16 at 09:15; Stop 07/23/16 at 09:14; Status DC Morphine Sulfate 2 mg PRN Q10MIN PRN IV Mild Pain; Start 07/22/16 at 09:15; Stop 07/23/16 at 09:14; Status DC Hydromorphone HCl (Dilaudid) 0.4 mg PRN Q10MIN PRN IV Moderate to severe pain; Start 07/22/16 at 09:15; Stop 07/23/16 at 09:14; Status DC Ondansetron HCl (Zofran) 4 mg PRN Q6HRS PRN IV Nausea, 1st Choice; Start at 09:15; Stop 07/23/16 at 09:14; Status DC Prochlorperazine Edisylate (Compazine) 5 mg PRN Q6HRS PRN IV Nausea/Vomiting, 2nd Choice; Start 07/22/16 at 09:15; Stop 07/23/16 at 09:14; Status DC Ondansetron HCl (Zofran) 4 mg PRN Q6HRS PRN IV NAUSEA/VOMITING; Start 07/25/16 at 07:00; Stop 07/26/16 at 06:59; Status DC Fentanyl Citrate (Fentanyl 2ml Vial) 25 mcg PRN Q5MIN PRN IV MILD PAIN; Start 07/25/16 at 07:00; Stop 07/26/16 at 06:59; Status DC Fentanyl Citrate (Fentanyl 2ml Vial) 50 mcg PRN Q5MIN PRN IV MODERATE PAIN; Start 07/25/16 at 07:00; Stop 07/26/16 at 06:59; Status DC Morphine Sulfate 1 mg 1 mg PRN Q10MIN PRN IV SEVERE PAIN; Start 07/25/16 at 07: 00; Stop 07/25/16 at 20:28; Status DC Lactated Ringer's (Iv Lactated Ringers) 1,000 ml @ 0 mls/hr Q0M IV ; Start 01/31 at 07:00; Stop 07/25/16 at 18:59; Status Cancel Lidocaine HCl 2 ml PRN 1X PRN ID PRIOR TO IV START Last administered on t 07:16; Start 07/25/16 at 07:00; Stop 07/26/16 at 06:59; Status DC Hydromorphone HCl (Dilaudid) 0.5 mg PRN Q10MIN PRN IV SEV PAIN, Second choice; Start 07/25/16 at 07:00; Stop 07/26/16 at 06:59; Status DC Prochlorperazine Edisylate 5 mg 5 mg PACU PRN PRN IV NAUSEA, MRX1; Start at 07:00; Stop 07/26/16 at 06:59; Status DC Cefazolin Sodium/ Dextrose (Ancef 2gm Premix) 50 ml @ 100 mls/hr 1X ONCE IV Last administered on 07/25/16 08:12; Start 07/25/16 at 06:00; Stop 07/25/16 at 06:29; Status DC Metoprolol Tartrate (Lopressor) 25 mg 1X ONCE PO ; Start 07/25/16 at 06:00; Stop 07/25/16 at 06:00; Status DC Metoprolol Tartrate (Lopressor) 2.5 mg 1X ONCE IVP Last administered on 16:30; Start 07/22/16 at 16:30; Stop 07/22/16 at 16:31; Status DC Digoxin (Lanoxin) 250 mcg 1X ONCE IV ; Start 07/22/16 at 18:30; Stop 07/22/16 at 18:42; Status DC Digoxin (Lanoxin) 500 mcg 1X ONCE IV Last administered on 07/22/16 18:47; Start 07/22/16 at 18:45; Stop 07/22/16 at 18:46; Status DC Metoprolol Tartrate (Lopressor) 75 mg BID PO Last administered on 07/24/16 21: 30; Start 07/22/16 at 21:00; Stop 07/25/16 at 13:12; Status DC Nitroglycerin 0.4 mg 0.4 mg PRN Q5MIN PRN SL CHEST PAIN; Start 07/23/16 at 12:00 ; Status UNV Heparin Sodium (Porcine) 83968 unit/Lactated Ringer's 1,020 ml @ 1,020 mls/hr 1X PERIOP ONCE IRR Last administered on 07/25/16 08:46; Start 07/25/16 at 06: 00; Stop 07/25/16 at 06:59; Status DC Potassium Chloride 70 meq/ Sodium Bicarbonate 12.5 meq/Lidocaine HCl 24 ml/ Parenteral Electrolytes 571.5 ml @ 571.5 mls/ hr 1X PERIOP ONCE IRR ; Start at 06:00; Stop 07/25/16 at 06:59; Status DC Potassium Chloride/Sodium Bicarbonate/ Parenteral Electrolytes (Isolyte S) 520 ml @ 520 mls/hr 1X PERIOP ONCE IRR ; Start 07/25/16 at 06:00; Stop 07/25/16 at 06:59; Status DC Etomidate (Amidate) 20 mg STK-MED ONCE IV ; Start 07/25/16 at 06:08; Stop at 06:09; Status DC Phenylephrine HCl (-Synephrine Inj) 10 mg STK-MED ONCE .ROUTE ; Start at 06:08; Stop 07/25/16 at 06:09; Status DC Aminocaproic Acid (Amicar) 5,000 mg STK-MED ONCE IV ; Start 07/25/16 at 06:08; Stop 07/25/16 at 06:09; Status DC Heparin Sodium (Porcine) (Heparin Sodium) 10,000 unit STK-MED ONCE .ROUTE ; Start 07/25/16 at 06:10; Stop 07/25/16 at 06:11; Status DC Rocuronium Dawson (Zemuron) 100 mg STK-MED ONCE .ROUTE ; Start 07/25/16 at 06: 11; Stop 07/25/16 at 06:12; Status DC Morphine Sulfate 4 mg STK-MED ONCE .ROUTE ; Start 07/25/16 at 06:59; Stop at 07:00; Status DC Morphine Sulfate 4 mg 4 mg 1X ONCE IV ; Start 07/25/16 at 07:15; Stop 07/25/16 at 07:16; Status DC Cefazolin Sodium/ Sodium Chloride (Ancef/Iv Sodium Chloride 0.9% 500ml Bag) 500 ml @ 500 mls/hr 1X PERIOP ONCE IRR Last administered on 07/25/16 08:46; Start 07/25/16 at 07:15; Stop 07/25/16 at 08:14; Status DC Cellulose 1 each STK-MED ONCE .ROUTE Last administered on 07/25/16 08:46; Start 07/25/16 at 07:07; Stop 07/25/16 at 07:08; Status DC Vancomycin HCl (Vanco) 10 gm STK-MED ONCE .ROUTE Last administered on 08:46; Start 07/25/16 at 07:07; Stop 07/25/16 at 07:08; Status DC Papaverine HCl 60 mg STK-MED ONCE .ROUTE Last administered on 07/25/16 08:46; Start 07/25/16 at 07:07; Stop 07/25/16 at 07:08; Status DC Aspirin (Aspirin) 300 mg STK-MED ONCE .ROUTE Last administered on 07/25/16t 17: 25; Start 07/25/16 at 07:08; Stop 07/25/16 at 07:09; Status DC Sodium Chloride (Sodium Chloride) 50 ml STK-MED ONCE IJ Last administered on t 08:46; Start 07/25/16 at 07:08; Stop 07/25/16 at 07:09; Status DC Midazolam HCl (Versed) 2 mg STK-MED ONCE .ROUTE ; Start 07/25/16 at 07:15; Stop 07/25/16 at 07:16; Status DC Ephedrine Sulfate 50 mg 50 mg STK-MED ONCE IV ; Start 07/25/16 at 07:16; Stop at 07:17; Status DC Nitroglycerin/ Dextrose (Nitroglycerin Drip) 250 ml @ As Directed STK-MED ONCE IV ; Start 07/25/16 at 07:16; Stop 07/25/16 at 07:17; Status DC Midazolam HCl (Versed) 2 mg STK-MED ONCE .ROUTE ; Start 07/25/16 at 07:18; Stop 07/25/16 at 07:19; Status DC Fentanyl Citrate (Fentanyl 2ml Vial) 100 mcg STK-MED ONCE .ROUTE ; Start at 07:19; Stop 07/25/16 at 07:20; Status DC Sufentanil Citrate (Sufenta) 100 mcg STK-MED ONCE .ROUTE ; Start 07/25/16 at 07: 19; Stop 07/25/16 at 07:20; Status DC Midazolam HCl (Versed) 2 mg 1X ONCE IV ; Start 07/25/16 at 08:00; Stop at 08:01; Status DC Dexamethasone Sodium Phosphate (Decadron) 20 mg STK-MED ONCE .ROUTE ; Start 01/31 at 07:58; Stop 07/25/16 at 07:59; Status DC Rocuronium Dawson (Zemuron) 100 mg STK-MED ONCE .ROUTE ; Start 07/25/16 at 08: 52; Stop 07/25/16 at 08:53; Status DC Sufentanil Citrate (Sufenta) 100 mcg STK-MED ONCE .ROUTE ; Start 07/25/16 at 08: 53; Stop 07/25/16 at 08:54; Status DC Protamine Sulfate 250 mg STK-MED ONCE IV ; Start 07/25/16 at 10:43; Stop at 10:44; Status DC Rocuronium Dawson 100 mg 100 mg STK-MED ONCE .ROUTE ; Start 07/25/16 at 10:52; Stop 07/25/16 at 10:53; Status DC Albumin Human 0 ml @ As Directed STK-MED ONCE IV ; Start 07/25/16 at 10:53; Stop 07/25/16 at 10:54; Status DC Amiodarone HCl/ Dextrose (Cordarone) 518 ml @ 34.53 mls/ hr 1X ONCE IV Last administered on 07/25/16t 18:52; Start 07/25/16 at 11:30; Stop 07/26/16 at 02:30 ; Status DC Sodium Bicarbonate 50 meq STK-MED ONCE .ROUTE ; Start 07/25/16 at 11:35; Stop at 11:36; Status DC Protamine Sulfate 50 mg STK-MED ONCE IV ; Start 07/25/16 at 12:31; Stop at 12:32; Status DC Amiodarone HCl (Cordarone) 150 mg STK-MED ONCE .ROUTE ; Start 07/25/16 at 12:37 ; Stop 07/25/16 at 12:38; Status DC Isoflurane (Isoflurane) 90 ml STK-MED ONCE IH ; Start 07/25/16 at 12:42; Stop at 12:43; Status DC Lidocaine HCl (Lidocaine HCl 2% Abboject) 100 mg STK-MED ONCE .ROUTE ; Start 01/31 at 13:07; Stop 07/25/16 at 13:08; Status DC Mannitol (Mannitol) 12.5 g STK-MED ONCE .ROUTE ; Start 07/25/16 at 13:07; Stop 07/25/16 at 13:08; Status DC Calcium Chloride 1,000 mg STK-MED ONCE IV ; Start 07/25/16 at 13:07; Stop at 13:08; Status DC Sodium Bicarbonate 50 meq 50 meq STK-MED ONCE .ROUTE ; Start 07/25/16 at 13:07; Stop 07/25/16 at 13:08; Status DC Albumin Human (Albuminar) 100 ml @ As Directed STK-MED ONCE IV ; Start at 13:07; Stop 07/25/16 at 13:08; Status DC Magnesium Sulfate 5 gm STK-MED ONCE .ROUTE ; Start 07/25/16 at 13:08; Stop 07/25 at 13:09; Status DC Heparin Sodium (Porcine) 23696 unit 30,000 unit STK-MED ONCE .ROUTE ; Start 01/31 at 13:08; Stop 07/25/16 at 13:09; Status DC Clevidipine (Cleviprex) 100 ml @ 0 mls/hr CONT PRN IV PER PROTOCOL; Start 07/25 at 13:45; Stop 07/26/16 at 11:29; Status DC Heparin Sodium (Porcine) 95133 unit 30,000 unit STK-MED ONCE .ROUTE ; Start 01/31 at 13:39; Stop 07/25/16 at 13:40; Status DC Epinephrine HCl/ Sodium Chloride (Adrenalin/Iv Sodium Chloride 0.9% 250ml) 254 ml @ 3.81 mls/hr CONT PRN IV SEE I/O RECORD; Start 07/25/16 at 13:45 Epinephrine HCl (Epinephrine Syringe) 1 mg STK-MED ONCE .ROUTE ; Start 07/25/16 at 13:52; Stop 07/25/16 at 13:53; Status DC Rocuronium Dawson (Zemuron) 100 mg STK-MED ONCE .ROUTE ; Start 07/25/16 at 13: 57; Stop 07/25/16 at 13:58; Status DC Sodium Bicarbonate 50 meq 50 meq STK-MED ONCE .ROUTE ; Start 07/25/16 at 14:04; Stop 07/25/16 at 14:05; Status DC Procainamide HCl/ Dextrose (Pronestyl) 520 ml @ 15.6 mls/hr CONT PRN IV SEE I/ O RECORD; Start 07/25/16 at 14:30; Stop 07/28/16 at 15:22; Status DC Sodium Bicarbonate 50 meq STK-MED ONCE .ROUTE ; Start 07/25/16 at 14:31; Stop at 14:32; Status DC Sodium Bicarbonate 50 meq STK-MED ONCE .ROUTE ; Start 07/25/16 at 14:31; Stop at 14:32; Status DC Protamine Sulfate 50 mg STK-MED ONCE IV ; Start 07/25/16 at 15:13; Stop at 15:14; Status DC Protamine Sulfate 50 mg STK-MED ONCE IV ; Start 07/25/16 at 15:13; Stop at 15:14; Status DC Isoflurane 90 ml 90 ml STK-MED ONCE IH ; Start 07/25/16 at 15:13; Stop 07/25/16 at 15:14; Status DC Dobutamine HCl/ Dextrose 250 ml @ As Directed STK-MED ONCE IV ; Start 07/25/16 at 15:17; Stop 07/25/16 at 15:18; Status DC Iohexol 100 ml 100 ml STK-MED ONCE .ROUTE Last administered on 07/25/16t 15:39 ; Start 07/25/16 at 15:28; Stop 07/25/16 at 15:29; Status DC Norepinephrine Bitartrate 8 mg/ Sodium Chloride 258 ml @ 1.93 mls/hr 1X ONCE IV Last administered on 07/25/16t 18:53; Start 07/25/16 at 16:00; Stop at 08:04; Status DC Albumin Human (Plasmanate) 1,000 ml @ As Directed STK-MED ONCE IV ; Start 07/25 at 16:11; Stop 07/25/16 at 16:12; Status DC Heparin Sodium (Porcine) (Heparin Sodium) 10,000 unit STK-MED ONCE .ROUTE ; Start 07/25/16 at 16:19; Stop 07/25/16 at 16:20; Status DC Lidocaine HCl (Lidocaine HCl 2% Abboject) 100 mg STK-MED ONCE .ROUTE ; Start 01/31 at 16:19; Stop 07/25/16 at 16:20; Status DC Mannitol (Mannitol) 12.5 g STK-MED ONCE .ROUTE ; Start 07/25/16 at 16:19; Stop 07/25/16 at 16:20; Status DC Calcium Chloride 1,000 mg STK-MED ONCE IV ; Start 07/25/16 at 16:19; Stop at 16:20; Status DC Sodium Bicarbonate 50 meq STK-MED ONCE .ROUTE ; Start 07/25/16 at 16:19; Stop at 16:20; Status DC Magnesium Sulfate 5 gm STK-MED ONCE .ROUTE ; Start 07/25/16 at 16:19; Stop 07/25 at 16:20; Status DC Heparin Sodium (Porcine) (Heparin Sodium) 10,000 unit STK-MED ONCE .ROUTE ; Start 07/25/16 at 16:20; Stop 07/25/16 at 16:21; Status DC Lidocaine HCl (Lidocaine HCl 2% Abboject) 100 mg STK-MED ONCE .ROUTE ; Start 01/31 at 16:20; Stop 07/25/16 at 16:21; Status DC Aminocaproic Acid (Amicar) 5,000 mg STK-MED ONCE IV ; Start 07/25/16 at 16:20; Stop 07/25/16 at 16:21; Status DC Mannitol (Mannitol) 12.5 g STK-MED ONCE .ROUTE ; Start 07/25/16 at 16:20; Stop 07/25/16 at 16:21; Status DC Sodium Bicarbonate 50 meq 50 meq STK-MED ONCE .ROUTE ; Start 07/25/16 at 16:20; Stop 07/25/16 at 16:21; Status DC Albumin Human (Albuminar) 100 ml @ As Directed STK-MED ONCE IV ; Start at 16:20; Stop 07/25/16 at 16:21; Status DC Rocuronium Dawson (Zemuron) 50 mg STK-MED ONCE .ROUTE ; Start 07/25/16 at 16:33 ; Stop 07/25/16 at 16:34; Status DC Rocuronium Dawson (Zemuron) 50 mg STK-MED ONCE .ROUTE ; Start 07/25/16 at 16:33 ; Stop 07/25/16 at 16:34; Status DC Protamine Sulfate 50 mg STK-MED ONCE IV ; Start 07/25/16 at 16:34; Stop at 16:35; Status DC Sodium Bicarbonate 50 meq STK-MED ONCE .ROUTE ; Start 07/25/16 at 16:36; Stop at 16:37; Status DC Calcium Chloride 1,000 mg STK-MED ONCE IV ; Start 07/25/16 at 16:41; Stop at 16:42; Status DC Epinephrine HCl (Epinephrine Syringe) 1 mg STK-MED ONCE .ROUTE ; Start 07/25/16 at 16:41; Stop 07/25/16 at 16:42; Status DC Sodium Bicarbonate 50 meq STK-MED ONCE .ROUTE ; Start 07/25/16 at 16:52; Stop at 16:53; Status DC Sodium Bicarbonate 50 meq STK-MED ONCE .ROUTE ; Start 07/25/16 at 16:52; Stop at 16:53; Status DC Sodium Bicarbonate 50 meq STK-MED ONCE .ROUTE ; Start 07/25/16 at 16:52; Stop at 16:53; Status DC Vasopressin (Vasostrict) 20 unit STK-MED ONCE .ROUTE ; Start 07/25/16 at 16:54; Stop 07/25/16 at 16:55; Status DC Famotidine (Pepcid) 20 mg STK-MED ONCE .ROUTE ; Start 07/25/16 at 16:56; Stop at 16:57; Status DC Dexamethasone Sodium Phosphate (Decadron) 20 mg STK-MED ONCE .ROUTE ; Start 01/31 at 16:56; Stop 07/25/16 at 16:57; Status DC Diphenhydramine HCl 50 mg 50 mg STK-MED ONCE .ROUTE ; Start 07/25/16 at 16:56; Stop 07/25/16 at 16:57; Status DC Vasopressin/ Dextrose (Vasostrict) 102 ml @ 6 mls/hr CONT PRN IV SEE I/O RECORD Last administered on 08/03/16t 18:28; Start 07/25/16 at 17:15 Sodium Bicarbonate 50 meq STK-MED ONCE .ROUTE ; Start 07/25/16 at 17:24; Stop at 17:25; Status DC Sodium Bicarbonate 50 meq 50 meq STK-MED ONCE .ROUTE ; Start 07/25/16 at 17:24; Stop 07/25/16 at 17:25; Status DC Cefazolin Sodium/ Dextrose (Ancef 2gm Premix) 50 ml @ As Directed STK-MED ONCE IV ; Start 07/25/16 at 17:32; Stop 07/25/16 at 17:33; Status DC Sodium Chloride 3 ml 3 ml PRN Q12HR PRN IV AFTER MEDS AND BLOOD DRAWS; Start at 17:30; Stop 07/29/16 at 13:38; Status DC Lactated Ringer's 1,000 ml @ 15 mls/hr Q24H IV Last administered on 07/29/16 16:45; Start 07/25/16 at 17:30; Stop 07/31/16 at 15:33; Status DC Insulin Human Regular/Sodium Chloride (Novolin R Vial/ Iv Normal Saline 150ml) 151.5 ml @ 0 mls/hr CONT PRN PRN IV SEE I/O RECORD Last administered on 03:03; Start 07/25/16 at 17:30; Stop 07/29/16 at 13:51; Status DC Dextrose 25 gm 25 gm PRN Q15MIN PRN IV LOW BLOOD SUGAR; Start 07/25/16 at 17:30 ; Stop 07/29/16 at 13:51; Status DC Dopamine HCl/ Dextrose 250 ml @ 0 mls/hr CONT PRN PRN IV SEE I/O RECORD; Start 07/25/16 at 17:30; Stop 07/26/16 at 11:41; Status DC Amiodarone HCl/ Dextrose (Cordarone) 518 ml @ 33.33 mls/ hr CONT PRN PRN IV SEE COMMENTS; Start 07/25/16 at 17:30; Status UNV Info 1 ea CONT PRN PRN MC SEE COMMENTS; Start 07/25/16 at 17:30; Stop 08/03/16 at 12:57; Status DC Info 1 ea 1 ea CONT PRN PRN MC SEE COMMENTS; Start 07/25/16 at 17:30 Magnesium Sulfate/ Dextrose (Magnesium Sulfate PREMIX 1GM) 100 ml @ 100 mls/hr PRN DAILY PRN IV FOR MAG < 2.2 Last administered on 07/27/16 10:59; Start 01/31 at 17:30 Famotidine (Pepcid) 20 mg BID IVP Last administered on 08/03/16 09:15; Start 07/25/16 at 21:00; Stop 08/03/16 at 15:28; Status DC Metoclopramide HCl (Reglan) 10 mg PRN Q6HRS PRN IV NAUSEA/VOMITING Last administered on 07/29/16 09:54; Start 07/25/16 at 17:30 Morphine Sulfate 2 mg PRN Q1HR PRN IV PAIN Last administered on 07/28/16 14:21 ; Start 07/25/16 at 17:30; Stop 07/29/16 at 13:38; Status DC Acetaminophen (Tylenol) 650 mg PRN Q4HRS PRN PO MILD PAIN / TEMP; Start at 17:30; Stop 07/29/16 at 13:38; Status DC Acetaminophen (Acetaminophen Supp) 650 mg PRN Q4HRS PRN TN MILD PAIN / TEMP Last administered on 08/03/16 01:04; Start 07/25/16 at 17:30 Meperidine HCl 12.5 mg 12.5 mg PRN Q15MIN PRN IV SHIVERING; Start 07/25/16 at 17:30; Stop 07/29/16 at 13:38; Status DC Propofol (Diprivan) 100 ml @ 0 mls/hr CONT PRN PRN IV POSTOP SEDATION UNTIL EXTUBATE; Start 07/25/16 at 17:30; Stop 07/28/16 at 15:22; Status DC Aspirin (Ecotrin) 325 mg DAILYWBKFT PO Last administered on 07/29/16 09:54; Start 07/26/16 at 08:00; Stop 07/29/16 at 09:59; Status DC Aspirin (Aspirin) 300 mg PRN DAILY PRN TN IF UNABLE TO TAKE PO; Start 07/25/16 at 17:30; Stop 07/26/16 at 12:00; Status DC Acetaminophen/ Hydrocodone Bitart (Lortab 5/325) 1 tab PRN Q4HRS PRN PO MILD PAIN; Start 07/25/16 at 17:30; Stop 08/03/16 at 12:24; Status DC Acetaminophen/ Hydrocodone Bitart 2 tab 2 tab PRN Q4HRS PRN PO MODERATE PAIN, SEVERE PAIN; Start 07/25/16 at 17:30; Stop 08/03/16 at 12:24; Status DC Cefazolin Sodium/ Dextrose 50 ml @ 100 mls/hr Q8H IV ; Start 07/25/16 at 18:00 ; Stop 07/25/16 at 21:42; Status DC Albumin Human 250 ml @ 62.5 mls/hr 1X ONCE IV Last administered on 07/27/16 17:52; Start 07/25/16 at 17:30; Stop 07/25/16 at 21:29; Status DC Midazolam HCl 100 ml @ As Directed STK-MED ONCE IV ; Start 07/25/16 at 18:06; Stop 07/25/16 at 18:07; Status DC Midazolam HCl 100 ml @ 0 mls/hr CONT PRN IV SEE I/O RECORD Last administered on 07/25/16 18:56; Start 07/25/16 at 18:15; Stop 07/26/16 at 08:59; Status DC Vancomycin HCl 1 gm/Sodium Chloride 250 ml @ 250 mls/hr 1X ONCE IV Last administered on 07/25/16 20:56; Start 07/25/16 at 18:15; Stop 07/25/16 at 19:14 ; Status DC Piperacillin Sod/ Tazobactam Sod/ Sodium Chloride (Zosyn/Iv Sodium Chloride 0.9 % 50ml) 50 ml @ 100 mls/hr Q6HRS IV Last administered on 07/31/16 05:32; Start 07/25/16 at 18:15; Stop 07/31/16 at 10:25; Status DC Midazolam HCl (Versed) 2 mg PRN Q20MIN PRN IV SEDATION; Start 07/25/16 at 18:15 ; Stop 07/25/16 at 18:39; Status DC Midazolam HCl 5 mg 5 mg PRN Q30MIN PRN IV SEDATION; Start 07/25/16 at 18:15; Stop 07/25/16 at 18:39; Status DC Vecuronium Dawson 100 mg/ Dextrose 100 ml @ 0 mls/hr 1X ONCE IV Last administered on 07/25/16 19:43; Start 07/25/16 at 18:15; Stop 07/25/16 at 18:17 ; Status DC Midazolam HCl 100 ml @ 0 mls/hr CONT PRN IV SEE I/O RECORD Last administered on 07/28/16 19:40; Start 07/25/16 at 18:45 Dobutamine HCl/ Dextrose 250 ml @ 0 mls/hr CONT PRN IV SEE I/O RECORD Last administered on 07/29/16 03:10; Start 07/25/16 at 18:45; Stop 07/29/16 at 13:38 ; Status DC Potassium Chloride 50 ml @ 50 mls/hr Q1H IV Last administered on 07/25/16 22: 58; Start 07/25/16 at 21:00; Stop 07/25/16 at 23:59; Status DC Cefazolin Sodium/ Dextrose 50 ml @ 100 mls/hr Q8H IV Last administered on 07/27 05:34; Start 07/25/16 at 22:00; Stop 07/27/16 at 06:29; Status DC Heparin Sodium (Porcine) 93273 unit/Dextrose 512.5 ml @ 0 mls/hr Q0M ONCE IV Last administered on 07/25/16 22:21; Start 07/25/16 at 22:15; Stop 07/25/16 at 22:16; Status DC Vecuronium Dawson/Dextrose (Norcuron) 100 ml @ 0 mls/hr CONT PRN IV SEE I/O RECORD Last administered on 07/26/16 01:07; Start 07/26/16 at 00:45; Stop 07/29 at 13:38; Status DC Dextrose 25 gm 25 gm 1X ONCE IV Last administered on 07/26/16 01:08; Start at 01:00; Stop 07/26/16 at 01:18; Status DC Amiodarone HCl/ Dextrose (Cordarone) 259 ml @ 17.26 mls/ hr CONT PRN IV SEE I/ O RECORD Last administered on 07/30/16 13:02; Start 07/26/16 at 06:45; Stop at 15:33; Status DC Cefazolin Sodium/ Dextrose 2 gm 2 gm STK-MED ONCE IV ; Start 07/25/16 at 11:00; Stop 07/26/16 at 08:53; Status DC Lactated Ringer's 500 ml @ 5,000 mls/hr PRN Q10MIN PRN IV CVP <14; Start 07/26 at 10:00; Stop 07/29/16 at 13:38; Status DC Fentanyl Citrate (Fentanyl 600 Mcg/30 ml SYSTEMS PROJECT MANAGER) 30 ml @ 0 mls/hr CONT PRN IV PROTOCOL Last administered on 07/31/16 09:12; Start 07/26/16 at 10:00; Stop at 13:31; Status DC Fentanyl Citrate (Fentanyl 2ml Vial) 25 mcg PRN Q1HR PRN IV COMM; Start at 10:00; Stop 07/29/16 at 13:38; Status DC Fentanyl Citrate (Fentanyl 2ml Vial) 50 mcg PRN Q1HR PRN IV COMM; Start at 10:00; Stop 07/29/16 at 13:38; Status DC Chlorhexidine Gluconate (Peridex) 15 ml BID MM Last administered on 08/05/16 07:43; Start 07/26/16 at 10:30 Sulfur Hexafluoride Microspheres (Lumason) 25 mg STK-MED ONCE IVP ; Start at 11:29; Stop 07/26/16 at 11:30; Status DC Aspirin 300 mg 300 mg DAILY TN Last administered on 07/28/16 07:55; Start 03/03 at 12:00; Stop 07/29/16 at 19:10; Status DC Potassium Chloride (KCl Premix 20meq) 50 ml @ 50 mls/hr 1X ONCE IV Last administered on 07/26/16 12:55; Start 07/26/16 at 12:00; Stop 07/26/16 at 12:59 ; Status DC Sulfur Hexafluoride Microspheres (Lumason) 25 mg 1X ONCE IVP Last administered on 07/26/16 11:45; Start 07/26/16 at 11:45; Stop 07/26/16 at 11:50 ; Status DC Multi-Ingred Cream/Lotion/Oil/ Oint (Artificial Tears Eye Oint) 1 adri BID OU Last administered on 08/05/16 07:43; Start 07/26/16 at 21:00 Ondansetron HCl (Zofran) 4 mg PRN Q6HRS PRN IV NAUSEA/VOMITING; Start 07/27/16 at 07:00; Stop 07/28/16 at 06:59; Status DC Fentanyl Citrate (Fentanyl 2ml Vial) 25 mcg PRN Q5MIN PRN IV MILD PAIN; Start 07/27/16 at 07:00; Stop 07/28/16 at 06:59; Status DC Fentanyl Citrate (Fentanyl 2ml Vial) 50 mcg PRN Q5MIN PRN IV MODERATE PAIN; Start 07/27/16 at 07:00; Stop 07/28/16 at 06:59; Status DC Morphine Sulfate 1 mg 1 mg PRN Q10MIN PRN IV SEVERE PAIN; Start 07/27/16 at 07: 00; Stop 07/28/16 at 06:59; Status DC Lactated Ringer's (Iv Lactated Ringers) 1,000 ml @ 30 mls/hr Q24H IV Last administered on 07/26/16 17:25; Start 07/27/16 at 07:00; Stop 07/27/16 at 18:59 ; Status DC Lidocaine HCl 2 ml PRN 1X PRN ID PRIOR TO IV START; Start 07/27/16 at 07:00; Stop 07/28/16 at 06:59; Status DC Hydromorphone HCl (Dilaudid) 0.5 mg PRN Q10MIN PRN IV SEV PAIN, Second choice; Start 07/27/16 at 07:00; Stop 07/28/16 at 06:59; Status DC Prochlorperazine Edisylate 5 mg 5 mg PACU PRN PRN IV NAUSEA, MRX1; Start at 07:00; Stop 07/28/16 at 06:59; Status DC Heparin Sodium (Porcine) 15195 unit/Dextrose 512.5 ml @ 0 mls/hr Q0M ONCE IV Last administered on 07/26/16 19:40; Start 07/26/16 at 18:30; Stop 07/26/16 at 18:31; Status DC Amiodarone HCl 150 mg/Dextrose 103 ml @ 618 mls/hr 1X ONCE IV Last administered on 07/26/16 19:25; Start 07/26/16 at 19:15; Stop 07/26/16 at 19:24 ; Status DC Norepinephrine Bitartrate 8 mg/ Sodium Chloride 258 ml @ 1.93 mls/hr CONT PRN IV SEE I/O RECORD Last administered on 08/03/16 11:12; Start 07/26/16 at 19:15 Amiodarone HCl 900 mg/Dextrose 518 ml @ 0 mls/hr CONT PRN IV PER PROTOCOL; Start 07/26/16 at 19:15; Stop 07/27/16 at 12:11; Status DC Milrinone Lactate/ Dextrose 100 ml @ 0 mls/hr CONT PRN IV SEE I/O RECORD Last administered on 07/26/16 20:03; Start 07/26/16 at 19:45; Stop 07/29/16 at 13:51 ; Status DC Calcium Chloride/ Sodium Chloride (Iv Sodium Chloride 0.9% 100ml) 120 ml @ 240 mls/hr 1X ONCE IV Last administered on 07/26/16 21:04; Start 07/26/16 at 21: 30; Stop 07/26/16 at 21:59; Status DC Digoxin 500 mcg 500 mcg 1X ONCE IV Last administered on 07/26/16 21:55; Start 07/26/16 at 21:45; Stop 07/26/16 at 21:46; Status DC Cefazolin Sodium/ Sodium Chloride (Ancef/Iv Sodium Chloride 0.9% 500ml Bag) 500 ml @ 500 mls/hr 1X PERIOP ONCE IRR Last administered on 07/27/16 14:37; Start 07/27/16 at 10:00; Stop 07/27/16 at 10:59; Status DC Vancomycin HCl (Vanco) 10 gm 1X ONCE CEMENT Last administered on 07/27/16 14: 37; Start 07/27/16 at 12:30; Stop 07/27/16 at 12:31; Status DC Rocuronium Dawson (Zemuron) 100 mg STK-MED ONCE .ROUTE ; Start 07/27/16 at 12: 32; Stop 07/27/16 at 12:33; Status DC Lorazepam (Ativan) 2 mg STK-MED ONCE .ROUTE ; Start 07/27/16 at 14:13; Stop 04/02 at 14:14; Status DC Phenylephrine HCl 1 mg 1 mg STK-MED ONCE IV ; Start 07/27/16 at 14:18; Stop 04/02 at 14:19; Status DC Albumin Human (Plasmanate) 250 ml @ 62.5 mls/hr 1X ONCE IV Last administered on 07/27/16 17:52; Start 07/27/16 at 17:15; Stop 07/27/16 at 21:14; Status DC Sodium Bicarbonate 50 meq STK-MED ONCE .ROUTE ; Start 07/27/16 at 17:39; Stop at 17:40; Status DC Sodium Bicarbonate 50 meq 1X ONCE IV Last administered on 07/27/16 17:51; Start 07/27/16 at 18:00; Stop 07/27/16 at 18:01; Status DC Sodium Bicarbonate 50 meq 1X ONCE IV Last administered on 07/27/16 17:52; Start 07/27/16 at 18:00; Stop 07/27/16 at 18:01; Status DC Fentanyl Citrate (Fentanyl 2ml Vial) 25 mcg PRN Q5MIN PRN IV MILD PAIN; Start 07/28/16 at 07:00; Stop 07/29/16 at 06:59; Status DC Fentanyl Citrate (Fentanyl 2ml Vial) 50 mcg PRN Q5MIN PRN IV MODERATE PAIN; Start 07/28/16 at 07:00; Stop 07/29/16 at 06:59; Status DC Morphine Sulfate 1 mg 1 mg PRN Q10MIN PRN IV SEVERE PAIN; Start 07/28/16 at 07: 00; Stop 07/29/16 at 06:59; Status DC Lactated Ringer's (Iv Lactated Ringers) 1,000 ml @ 30 mls/hr Q24H IV Last administered on 07/28/16 06:49; Start 07/28/16 at 06:49; Stop 07/28/16 at 18:48 ; Status DC Lidocaine HCl 2 ml PRN 1X PRN ID PRIOR TO IV START; Start 07/28/16 at 07:00; Stop 07/29/16 at 06:59; Status DC Hydromorphone HCl (Dilaudid) 0.5 mg PRN Q10MIN PRN IV SEV PAIN, Second choice; Start 07/28/16 at 07:00; Stop 07/29/16 at 06:59; Status DC Rocuronium Dawson 50 mg 50 mg STK-MED ONCE .ROUTE ; Start 07/28/16 at 07:27; Stop 07/28/16 at 07:28; Status DC Cefazolin Sodium/ Sodium Chloride (Ancef/Iv Sodium Chloride 0.9% 500ml Bag) 500 ml @ 500 mls/hr 1X PERIOP ONCE IRR Last administered on 07/28/16 09:25; Start 07/28/16 at 08:00; Stop 07/28/16 at 08:59; Status DC Cellulose 1 each STK-MED ONCE .ROUTE ; Start 07/28/16 at 07:42; Stop 07/28/16 at 07:43; Status DC Bupivacaine HCl/ Epinephrine Bitart 50 ml 50 ml STK-MED ONCE .ROUTE ; Start at 07:42; Stop 07/28/16 at 07:43; Status DC Heparin Sodium (Porcine)/Sodium Chloride (Heparin Sodium/ Iv Sodium Chloride 0.9 % 500ml Bag) 505 ml @ 505 mls/hr 1X PERIOP ONCE IRR Last administered on 07/28t 10:19; Start 07/28/16 at 08:15; Stop 07/28/16 at 09:14; Status DC Lorazepam 2 mg 2 mg STK-MED ONCE .ROUTE ; Start 07/28/16 at 08:29; Stop at 08:30; Status DC Magnesium Sulfate/ Dextrose (Magnesium Sulfate PREMIX 1GM) 100 ml @ 100 mls/hr 1X ONCE IV Last administered on 07/28/16t 13:09; Start 07/28/16 at 09:00; Stop 07/28/16 at 09:59; Status DC Vasopressin (Vasostrict) 20 unit STK-MED ONCE .ROUTE ; Start 07/28/16 at 09:03; Stop 07/28/16 at 09:04; Status DC Epinephrine HCl (Epinephrine Syringe) 1 mg STK-MED ONCE .ROUTE ; Start 07/28/16 at 09:09; Stop 07/28/16 at 09:10; Status DC Calcium Chloride 1,000 mg STK-MED ONCE IV ; Start 07/28/16 at 09:09; Stop at 09:10; Status DC Phenylephrine HCl 1 mg STK-MED ONCE IV ; Start 07/28/16 at 09:54; Stop 07/28/16 at 09:55; Status DC Sevoflurane 60 ml 60 ml STK-MED ONCE IH ; Start 07/28/16 at 09:54; Stop at 09:55; Status DC Epinephrine HCl/ Sodium Chloride (Adrenalin/Iv Sodium Chloride 0.9% 250ml) 254 ml @ 3.81 mls/hr 1X ONCE IV ; Start 07/28/16 at 10:00; Stop 07/29/16 at 19:10 ; Status DC Heparin Sodium (Porcine) 97688 unit 10,000 unit STK-MED ONCE .ROUTE ; Start at 09:57; Stop 07/28/16 at 09:58; Status DC Albumin Human (Plasmanate) 500 ml @ As Directed STK-MED ONCE IV ; Start at 09:57; Stop 07/28/16 at 09:58; Status DC Iohexol 100 ml 100 ml STK-MED ONCE .ROUTE ; Start 07/28/16 at 10:39; Stop at 10:40; Status DC Heparin Sodium/ Sodium Chloride 500 ml @ As Directed STK-MED ONCE .ROUTE ; Start 07/28/16 at 10:39; Stop 07/28/16 at 10:40; Status DC Iohexol 100 ml 100 ml STK-MED ONCE .ROUTE ; Start 07/28/16 at 10:43; Stop at 10:44; Status DC Heparin Sodium/ Sodium Chloride 500 ml @ As Directed STK-MED ONCE .ROUTE ; Start 07/28/16 at 11:21; Stop 07/28/16 at 11:22; Status DC Albuterol Sulfate (Ventolin Neb Soln) 2.5 mg RTQID NEB Last administered on 08:46; Start 07/28/16 at 12:00; Stop 07/30/16 at 17:05; Status DC Furosemide (Lasix) 40 mg 1X ONCE IVP Last administered on 07/28/16 13:16; Start 07/28/16 at 13:15; Stop 07/28/16 at 13:16; Status DC Furosemide (Lasix) 40 mg 1X ONCE IVP Last administered on 07/28/16 13:19; Start 07/28/16 at 14:00; Stop 07/28/16 at 14:01; Status DC Heparin Sodium/ Sodium Chloride 1000 unit 1,000 unit CONT PRN IV ART LINE FLUSH Last administered on 08/02/16 06:47; Start 07/28/16 at 14:45 Albumin Human 250 ml @ 62.5 mls/hr PRN Q1HR PRN IV SEE COMMENTS Last administered on 08/02/16 16:12; Start 07/28/16 at 15:15 Furosemide 100 mg/ Sodium Chloride 100 ml @ 5 mls/hr CONT PRN IV SEE I/O RECORD Last administered on 07/30/16 09:50; Start 07/28/16 at 15:30; Stop 07/31 at 13:31; Status DC Potassium Chloride 50 ml @ 50 mls/hr Q1H IV Last administered on 07/28/16 19: 39; Start 07/28/16 at 18:30; Stop 07/28/16 at 20:29; Status DC Potassium Chloride (KCl Premix 20meq) 50 ml @ 50 mls/hr Q1H IV Last administered on 07/29/16 09:36; Start 07/29/16 at 07:00; Stop 07/29/16 at 08:59 ; Status DC Lorazepam (Ativan) 2 mg STK-MED ONCE .ROUTE ; Start 07/28/16 at 08:30; Stop at 08:16; Status DC Aspirin (Arti Aspirin) 325 mg [id number] PO Last administered on 08/05/16 07: 43; Start 07/30/16 at 08:00 Docusate Sodium 100 mg 100 mg DAILY PO Last administered on 07/31/16 07:59; Start 07/30/16 at 09:00; Stop 07/31/16 at 11:00; Status DC Dobutamine HCl/ Dextrose 250 ml @ 12.1 mls/hr CONT PRN IV PER PROTOCOL Last administered on 08/02/16 18:03; Start 07/29/16 at 13:30 Potassium Chloride 50 ml @ 50 mls/hr Q1H IV Last administered on 07/29/16 22: 39; Start 07/29/16 at 20:00; Stop 07/29/16 at 22:59; Status DC Potassium Chloride (KCl Premix 20meq) 50 ml @ 50 mls/hr Q1H IV Last administered on 07/30/16 09:19; Start 07/30/16 at 07:00; Stop 07/30/16 at 08:59 ; Status DC Ipratropium Dawson (Atrovent) 0.5 mg RTQID NEB Last administered on 08/05/16 11:59; Start 07/30/16 at 12:30 Digoxin 500 mcg 500 mcg 1X ONCE IV Last administered on 07/30/16 13:01; Start 07/30/16 at 12:15; Stop 07/30/16 at 12:19; Status DC Dexmedetomidine HCl/Sodium Chloride (Precedex/Iv Sodium Chloride 0.9% 50ml) 50 ml @ 0 mls/hr CONT PRN IV PER PROTOCOL Last administered on 08/04/16 05:20; Start 07/30/16 at 13:30 Atropine Sulfate 0.5 mg PRN Q5MIN PRN IV SEE COMMENTS; Start 07/30/16 at 13:30 Amiodarone HCl (Cordarone) 400 mg ONCE ONCE PO Last administered on 07/30/16 15:01; Start 07/30/16 at 13:30; Stop 07/30/16 at 13:46; Status DC Amiodarone HCl (Cordarone) 400 mg BID PO Last administered on 08/05/16 07:44; Start 07/30/16 at 21:00 Digoxin 125 mcg 125 mcg DAILY IV Last administered on 08/02/16 08:56; Start at 09:00; Stop 08/03/16 at 14:27; Status DC Albumin Human (Albuminar) 50 ml @ 50 mls/hr 1X ONCE IV Last administered on 16:26; Start 07/30/16 at 16:30; Stop 07/30/16 at 17:29; Status DC Ibuprofen (Motrin) 200 mg PRN Q6HRS PRN PO fever; Start 07/30/16 at 19:45; Stop 08/01/16 at 12:22; Status DC Metoprolol Tartrate (Lopressor) 2.5 mg 1X ONCE IVP Last administered on 20:23; Start 07/30/16 at 20:30; Stop 07/30/16 at 20:31; Status DC Metoprolol Tartrate 5 mg 5 mg PRN Q2HR PRN IVP HYPERTENSION Last administered on 08/04/16 22:09; Start 07/30/16 at 22:30 Potassium Chloride (KCl Premix 20meq) 50 ml @ 50 mls/hr Q1H IV Last administered on 07/31/16 09:04; Start 07/31/16 at 07:00; Stop 07/31/16 at 08:59 ; Status DC Metoprolol Tartrate (Lopressor) 12.5 mg BID NG Last administered on 08/05/16 07:44; Start 07/31/16 at 10:00 Docusate Sodium (Colace Solution) 100 mg PRN DAILY PRN PO constipation Last administered on 08/01/16 08:40; Start 07/31/16 at 11:00 Hydralazine HCl (Apresoline) 10 mg PRN Q2HRS PRN IVP ELEVATED BP, SEE COMMENTS Last administered on 08/01/16 16:35; Start 07/31/16 at 13:30 Fentanyl Citrate (Fentanyl 2ml Vial) 50 mcg PRN Q2HR PRN IV PAIN Last administered on 08/02/16 12:57; Start 07/31/16 at 13:45 Furosemide (Lasix) 40 mg TID IVP Last administered on 08/02/16 05:49; Start at 14:00; Stop 08/02/16 at 15:33; Status DC Alteplase, Recombinant (Cathflo) 2 mg 1X ONCE INT CAT Last administered on 23:34; Start 07/31/16 at 23:15; Stop 07/31/16 at 23:16; Status DC Haloperidol Lactate (Haldol) 5 mg PRN Q6HRS PRN IVP MODERATE AGITATION Last administered on 08/01/16 21:21; Start 08/01/16 at 21:00 Haloperidol Lactate 10 mg 10 mg PRN Q6HRS PRN IVP SEVERE AGITATION Last administered on 08/04/16 22:08; Start 08/01/16 at 23:45 Propofol 100 ml @ 0 mls/hr CONT PRN IV SEE I/O RECORD Last administered on 08/02 11:43; Start 08/02/16 at 02:45 Piperacillin Sod/ Tazobactam Sod/ Sodium Chloride (Zosyn/Iv Sodium Chloride 0.9 % 50ml) 50 ml @ 100 mls/hr Q6HRS IV Last administered on 08/02/16 13:17; Start 08/02/16 at 12:00; Stop 08/02/16 at 15:43; Status DC Vancomycin HCl 1 each 1 each PRN DAILY PRN MC SEE COMMENTS Last administered on 08/02/16 13:20; Start 08/02/16 at 11:45; Stop 08/03/16 at 15:24; Status DC Vancomycin HCl 2 gm/Sodium Chloride 500 ml @ 250 mls/hr 1X ONCE IV Last administered on 08/02/16 11:52; Start 08/02/16 at 12:00; Stop 08/02/16 at 13:59 ; Status DC Sodium Chloride (Iv Sodium Chloride 0.9% 500ml Bag) 500 ml @ 500 mls/hr 1X ONCE IV Last administered on 08/02/16 12:39; Start 08/02/16 at 12:45; Stop at 13:44; Status DC Vecuronium Dawson (Norcuron Bolus) 10 mg 1X STAT IV Last administered on 08/02 13:34; Start 08/02/16 at 13:17; Stop 08/02/16 at 13:23; Status DC Vancomycin HCl 1 each 1 each 1X ONCE MC ; Start 08/03/16 at 23:30; Stop at 23:30; Status DC Vancomycin HCl 1.25 gm/Sodium Chloride 250 ml @ 167 mls/hr Q12H IV Last administered on 08/03/16 00:33; Start 08/03/16 at 00:00; Stop 08/03/16 at 11:07 ; Status DC Fentanyl Citrate (Fentanyl 600 Mcg/30 ml SYSTEMS PROJECT MANAGER) 30 ml @ 0 mls/hr CONT PRN PRN IV PROTOCOL Last administered on 08/05/16 11:40; Start 08/02/16 at 13:30 Naloxone HCl 0.4 mg 0.4 mg PRN Q2MIN PRN IV SEE INSTRUCTIONS; Start 08/02/16 at 13:30 Micafungin Sodium 100 mg/Dextrose 100 ml @ 100 mls/hr Q24H IV Last administered on 08/04/16 16:38; Start 08/02/16 at 17:00 Lactated Ringer's 1,000 ml @ 1,000 mls/hr 1X ONCE IV Last administered on 15:45; Start 08/02/16 at 15:45; Stop 08/02/16 at 16:44; Status DC Piperacillin Sod/ Tazobactam Sod 4.5 gm/Sodium Chloride 100 ml @ 200 mls/hr Q6HRS IV Last administered on 08/03/16 12:00; Start 08/02/16 at 18:00; Stop at 14:02; Status DC Albumin Human (Plasmanate) 500 ml @ 125 mls/hr 1X ONCE IV Last administered on 08/02/16 20:37; Start 08/02/16 at 20:30; Stop 08/03/16 at 00:29; Status DC Furosemide (Lasix) 40 mg 1X ONCE IVP Last administered on 08/03/16 00:16; Start 08/02/16 at 20:30; Stop 08/02/16 at 20:31; Status DC Acetaminophen (Tylenol) 650 mg 1X ONCE NG Last administered on 08/03/16 02:03 ; Start 08/03/16 at 02:15; Stop 08/03/16 at 02:16; Status DC Ketorolac Tromethamine 15 mg 15 mg 1X ONCE IV Last administered on 08/03/16 02:03; Start 08/03/16 at 02:15; Stop 08/03/16 at 02:16; Status DC Lactated Ringer's (Iv Lactated Ringers) 500 ml @ 500 mls/hr 1X ONCE IV Last administered on 08/03/16 10:15; Start 08/03/16 at 10:15; Stop 08/03/16 at 11:14 ; Status DC Sodium Bicarbonate 50 meq 1X ONCE IV Last administered on 08/03/16 10:44; Start 08/03/16 at 10:15; Stop 08/03/16 at 10:20; Status DC Calcium Gluconate 1000 mg 1,000 mg 1X ONCE IVP ; Start 08/03/16 at 12:15; Stop 08/03/16 at 12:16; Status DC Sodium Bicarbonate 150 meq/Dextrose/ Sodium Chloride 1,150 ml @ 100 mls/hr [id number] PRN IV .; Start 08/03/16 at 12:30; Stop 08/03/16 at 13:03; Status DC Magnesium Sulfate/ Dextrose 50 ml @ 25 mls/hr PRN DAILY PRN IV for Mag < 1.7 on am labs; Start 08/03/16 at 12:30 Sodium Bicarbonate 150 meq/Dextrose 1,150 ml @ 100 mls/hr [id number] IV Last administered on 08/04/16 04:31; Start 08/03/16 at 13:30; Stop 08/04/16 at 08:31 ; Status DC Calcium Chloride 2000 mg/Sodium Chloride 120 ml @ 240 mls/hr 1X ONCE IV Last administered on 08/03/16 13:30; Start 08/03/16 at 13:30; Stop 08/03/16 at 13:59 ; Status DC Piperacillin Sod/ Tazobactam Sod/ Sodium Chloride (Zosyn/Iv Sodium Chloride 0.9 % 50ml) 50 ml @ 100 mls/hr Q6HRS IV Last administered on 08/05/16 12:07; Start 08/03/16 at 18:00 Heparin Sodium (Porcine) (Heparin Sodium) 10,000 unit STK-MED ONCE .ROUTE ; Start 08/03/16 at 14:31; Stop 08/03/16 at 14:32; Status DC Lidocaine/Sodium Bicarbonate (Buffered Lidocaine 1%) 20 ml STK-MED ONCE IJ ; Start 08/03/16 at 14:31; Stop 08/03/16 at 14:32; Status DC Heparin Sodium/ Sodium Chloride 60 unit 1X ONCE IV Last administered on 16:17; Start 08/03/16 at 14:45; Stop 08/03/16 at 14:46; Status DC Heparin Sodium (Porcine) (Heparin Sodium) 2,500 unit 1X ONCE INT CAT Last administered on 08/03/16 16:16; Start 08/03/16 at 14:45; Stop 08/03/16 at 14:46 ; Status DC Lidocaine/Sodium Bicarbonate (Buffered Lidocaine 1%) 3 ml 1X ONCE IJ Last administered on 08/03/16 16:16; Start 08/03/16 at 14:45; Stop 08/03/16 at 14:46 ; Status DC Fentanyl Citrate (Fentanyl 2ml Vial) 25 mcg PRN Q5MIN PRN IV MILD PAIN; Start 08/04/16 at 07:00; Stop 08/05/16 at 06:59; Status DC Fentanyl Citrate (Fentanyl 2ml Vial) 50 mcg PRN Q5MIN PRN IV MODERATE PAIN; Start 08/04/16 at 07:00; Stop 08/05/16 at 06:59; Status DC Morphine Sulfate 1 mg 1 mg PRN Q10MIN PRN IV SEVERE PAIN; Start 08/04/16 at 07: 00; Stop 08/05/16 at 06:59; Status DC Lactated Ringer's (Iv Lactated Ringers) 1,000 ml @ 0 mls/hr Q0M IV ; Start at 07:00; Stop 08/04/16 at 18:59; Status DC Lidocaine HCl 2 ml PRN 1X PRN ID PRIOR TO IV START; Start 08/04/16 at 07:00; Stop 08/05/16 at 06:59; Status DC Hydromorphone HCl (Dilaudid) 0.5 mg PRN Q10MIN PRN IV SEV PAIN, Second choice; Start 08/04/16 at 07:00; Stop 08/05/16 at 06:59; Status DC Famotidine (Pepcid) 20 mg DAILY IVP Last administered on 08/05/16 07:43; Start 08/04/16 at 09:00 Insulin Aspart (Novolog) 0-7 UNITS TIDWMEALS SQ ; Start 08/03/16 at 19:00 Dextrose 12.5 gm 12.5 gm PRN Q15MIN PRN IV SEE COMMENTS; Start 08/03/16 at 18: 30 Sodium Chloride 1,000 ml @ 1,000 mls/hr Q1H PRN IV hypotension; Start 08/03/16 at 18:33; Stop 08/04/16 at 00:32; Status DC Sodium Chloride (Iv Sodium Chloride 0.9% 1000ml Bag) 1,000 ml @ 400 mls/hr Q2H30M PRN IV PATENCY; Start 08/03/16 at 18:33; Stop 08/04/16 at 06:32; Status DC Info 1 each 1 each PRN DAILY PRN MC SEE COMMENTS; Start 08/03/16 at 18:45 Sodium Chloride 1,000 ml @ 1,000 mls/hr Q1H PRN IV hypotension; Start 08/04/16 at 07:44; Stop 08/04/16 at 13:43; Status DC Albumin Human (Albuminar) 200 ml @ 200 mls/hr 1X PRN PRN IV Hypotension Last administered on 08/04/16 08:48; Start 08/04/16 at 07:45; Stop 08/04/16 at 13:44 ; Status DC Diphenhydramine HCl (Benadryl) 25 mg 1X PRN PRN IV ITCHING; Start 08/04/16 at 07:45; Stop 08/05/16 at 07:44; Status DC Diphenhydramine HCl (Benadryl) 25 mg 1X PRN PRN IV ITCHING; Start 08/04/16 at 07:45; Stop 08/05/16 at 07:44; Status DC Sodium Chloride (Normal Saline Flush) 10 ml 1X PRN PRN IV AP catheter pack; Start 08/04/16 at 07:45; Stop 08/05/16 at 07:44; Status DC Sodium Chloride 10 ml 10 ml 1X PRN PRN IV RN FIELD catheter pack; Start 08/04/16 at 07:45; Stop 08/05/16 at 07:44; Status DC Sodium Chloride (Iv Sodium Chloride 0.9% 1000ml Bag) 1,000 ml @ 400 mls/hr Q2H30M PRN IV PATENCY; Start 08/04/16 at 07:44; Stop 08/04/16 at 19:43; Status DC Info (PHARMACY MONITORING -- do not chart) 1 each PRN DAILY PRN MC SEE COMMENTS ; Start 08/04/16 at 07:45 Heparin Sodium (Porcine) 5,000 unit Q12HR SQ Last administered on 08/05/16 07: 47; Start 08/04/16 at 21:00 Sevelamer Carbonate 2.4 gm 2.4 gm BID FT Last administered on 08/05/16t 12:13; Start 08/05/16 at 10:00 Sodium Chloride 1,000 ml @ 1,000 mls/hr Q1H PRN IV hypotension; Start 08/05/16 at 12:28; Stop 08/05/16 at 18:27 Albumin Human (Albuminar) 200 ml @ 200 mls/hr 1X PRN PRN IV Hypotension; Start 08/05/16 at 12:30; Stop 08/05/16 at 18:29 Sodium Chloride (Normal Saline Flush) 10 ml 1X PRN PRN IV AP catheter pack; Start 08/05/16 at 12:30; Stop 08/06/16 at 12:29 Sodium Chloride 10 ml 10 ml 1X PRN PRN IV RN FIELD catheter pack; Start 08/05/16 at 12:30; Stop 08/06/16 at 12:29 Sodium Chloride (Iv Sodium Chloride 0.9% 1000ml Bag) 1,000 ml @ 400 mls/hr Q2H30M PRN IV PATENCY; Start 08/05/16 at 12:28; Stop 08/06/16 at 00:27 Info 1 each 1 each PRN DAILY PRN MC SEE COMMENTS; Start 08/05/16 at 12:30 Propofol (Diprivan) 20 ml @ As Directed STK-MED ONCE IV ; Start 08/05/16 at 13: 01; Stop 08/05/16 at 13:02; Status DC Rocuronium Dawson (Zemuron) 50 mg STK-MED ONCE .ROUTE ; Start 08/05/16 at 13:01 ; Stop 08/05/16 at 13:02; Status DC Dexamethasone Sodium Phosphate (Decadron) 20 mg STK-MED ONCE .ROUTE ; Start at 13:05; Stop 08/05/16 at 13:06; Status DC Famotidine (Pepcid) 20 mg STK-MED ONCE .ROUTE ; Start 08/05/16 at 13:05; Stop at 13:06; Status DC Ondansetron HCl (Zofran) 4 mg STK-MED ONCE .ROUTE ; Start 08/05/16 at 13:05; Stop 08/05/16 at 13:06; Status DC Midazolam HCl (Versed) 2 mg STK-MED ONCE .ROUTE ; Start 08/05/16 at 13:13; Stop 08/05/16 at 13:14; Status DC Active Scripts Active Reported Amlodipine Besylate 5 Mg Tablet 5 Mg PO DAILY Pradaxa (Dabigatran Etexilate Mesylate) 150 Mg Capsule 1 Cap PO BID Metoprolol Succinate ( Xl ) (Metoprolol Succinate) 100 Mg Tab.er.24h 1 Tab PO DAILY Vitals/I & O Vital Sign - Last 24 Hours 08/04/16 08/04/16 08/04/16 08/04/16 13:45 14:00 14:15 15:00 Temp 97.6 97.6 Pulse 75 86 Resp 30 30 30 B/P 102/51 111/55 Pulse Ox 98 97 97 O2 Delivery Ventilator Ventilator Ventilator Ventilator 08/04/16 08/04/16 08/04/16 08/04/16 15:10 16:00 16:00 16:08 Pulse 78 Resp 30 B/P 118/56 Pulse Ox 94 99 94 O2 Delivery Ventilator Mechanical Ventilator Ventilator Ventilator 08/04/16 08/04/16 08/04/16 08/04/16 16:40 17:00 17:09 18:00 Pulse 86 86 Resp 31 30 B/P 140/63 142/63 Pulse Ox 94 94 94 98 O2 Delivery Ventilator Ventilator Ventilator Ventilator 08/04/16 08/04/16 08/04/16 08/04/16 19:00 20:00 20:00 20:18 Temp 97.5 97.5 Pulse 88 94 Resp 32 38 B/P 138/64 174/76 Pulse Ox 95 94 95 O2 Delivery Ventilator Mechanical Ventilator Ventilator Ventilator 08/04/16 08/04/16 08/04/16 08/04/16 20:22 21:00 21:00 21:12 Pulse 101 90 Resp 28 B/P 180/88 146/66 Pulse Ox 95 88 96 O2 Delivery Ventilator Ventilator Ventilator 08/04/16 08/04/16 08/04/16 08/04/16 22:00 22:09 22:10 23:00 Pulse 102 96 101 106 Resp 26 24 B/P 160/74 180/88 180/88 140/70 Pulse Ox 93 94 O2 Delivery Ventilator Ventilator 08/04/16 08/05/16 08/05/16 08/05/16 23:05 00:00 00:00 01:00 Temp 98.3 98.3 Pulse 98 94 Resp 19 23 B/P 130/64 136/64 Pulse Ox 93 96 97 O2 Delivery Ventilator Ventilator Mechanical Ventilator Ventilator 08/05/16 08/05/16 08/05/16 08/05/16 01:35 02:00 02:57 03:00 Pulse 100 83 Resp 30 22 B/P 152/74 154/67 Pulse Ox 93 95 96 96 O2 Delivery Ventilator Ventilator Ventilator Ventilator 08/05/16 08/05/16 08/05/16 08/05/16 04:00 04:00 05:00 05:26 Temp 98.1 98.1 Pulse 98 96 Resp 18 26 B/P 152/70 154/74 Pulse Ox 95 95 95 O2 Delivery Ventilator Mechanical Ventilator Ventilator Ventilator 08/05/16 08/05/16 08/05/16 08/05/16 06:00 07:00 07:44 07:44 Temp 98.1 98.1 Pulse 93 105 93 93 Resp 23 23 B/P 151/73 152/76 151/73 151/73 Pulse Ox 95 95 O2 Delivery Ventilator Ventilator 08/05/16 08/05/16 08/05/16 08/05/16 08:00 08:00 08:40 09:00 Pulse 101 89 Resp 23 23 B/P 168/76 113/61 Pulse Ox 94 94 95 O2 Delivery Mechanical Ventilator Ventilator Ventilator Ventilator 08/05/16 08/05/16 08/05/16 08/05/16 10:01 11:00 11:40 11:59 Pulse 93 93 Resp 24 24 18 B/P 143/67 98/58 Pulse Ox 93 92 95 O2 Delivery Ventilator Ventilator Ventilator Ventilator 08/05/16 08/05/16 08/05/16 12:00 12:00 12:10 Temp 97.6 97.6 Pulse 110 Resp B/P 100/58 Pulse Ox 96 96 O2 Delivery Mechanical Ventilator Ventilator Intake and Output 08/04/16 08/04/16 08/05/16 15:00 23:00 07:00 Intake Total 90.57 ml 310.19 ml 134 ml Output Total 20 ml 95 ml 160 ml Balance 70.57 ml 215.19 ml -26 ml MILA JEWELL MD Aug 05, 2016 13:31
[2016-08-05] MEDS ORDERED: 0.9 % SODIUM CHLORIDE 50 ML VIAL. IJ ONE (13:58)
[2016-08-05] MEDS ORDERED: VASOPRESSIN 20 UNIT/ML VIAL. ONE (13:58)
[2016-08-05] MEDS ORDERED: SEVOFLURANE 61 TO 120 MINUTES. IH ONE (14:29)
[2016-08-05] MEDS ORDERED: LIDOCAINE 1% PF 5 ML VIAL. INJ ONE (14:55)
--- NOTE | 2016-08-05 15:06 | PDOC ---
BRIEF OPERATIVE NOTE Date: Aug 05, 2016 Pre-Op Diagnosis Ventilator dependent respiratory failure ST elevation myocardial infarction Cardiogenic shock Septic shock Acute renal failure requiring dialysis Post-Op Diagnosis Ventilator dependent respiratory failure ST elevation myocardial infarction Cardiogenic shock Septic shock Acute renal failure requiring dialysis Procedure Performed Tracheostomy Surgeon Olga Muse MD Tankage Grinder Operator RAFITA Rojas Anesthesiologist Dr Hyman Anesthesia Type: General Blood Loss Minimal IV Fluid N/A Urine Output N/A Specimens Obtained No Complications None OLGA MUSE MD Aug 05, 2016 15:06
--- NOTE | 2016-08-05 15:08 | PDOC4 ---
Operative Note Operative Note Date Aug 05, 2016 Preoperative diagnosis Ventilator dependent respiratory failure ST elevation myocardial infarction Cardiogenic shock Septic shock Acute renal failure requiring dialysis Postoperative diagnosis Ventilator dependent respiratory failure ST elevation myocardial infarction Cardiogenic shock Septic shock Acute renal failure requiring dialysis Procedure Tracheostomy Surgeon Olga Lopez MD Fuel Technician RAFITA Rojas Anesthesiologist Dr Hyman Anesthesia General Blood loss Minimal IV fluids N/A Urine output N/A Specimens No Complications None Indication Mr Alvarado is a 56-year-old male who is status post CABG 3 10 days ago for severe ischemic cardiomyopathy, large anterior STEMI with troponin of 100, with early postoperative myocardial infarction/V. fib, leading to cardiogenic shock, placement of the vein graft to the LAD and impella for mechanical circulatory support and open chest. Sternotomy was closed and the LVAD has been removed. As he was progressing to recovery he developed septic shock which he eventually recovered from with aggressive resuscitation, vasopressors and intravenous antibiotics. We never identified a source for his sepsis. All the past couple days the patient has been doing very well and he has been following commands. We have attempted several CPAP trials, with a pressure support of 20 which he did well with. Unfortunately was not able to tolerate less pressure support. Owing to the failure to wean the decided to proceed with a tracheostomy. The risks, benefits and limitations of the procedure were explained to the patient' s spouse who agreed to proceed. Informed consent was obtained. Operation The patient's ID was confirmed using 2 unique identifies. The patient was transferred to the OR intubated from the ICU. She was placed supine on the operating table with both arms tucked. A shoulder roll was also placed to facilitate mild neck extension which helped identify neck landmarks. The patient 's neck was prepped and draped in the usual sterile surgical fashion. The patient has been receiving therapeutic antibiotics, thus antibiotic prophylaxis was not given. A timeout was then performed. A 3 cm transverse incision in the skin crease just below the level of the cricoid cartilage was made. The incision was deepened through the subcutaneous tissues followed by the platysma. The strap muscles were bluntly at the median raphe. The isthmus of the thyroid was identified and divided using electrocautery. The pretracheal fascia was incised. Hemostasis of the thyroid gland and surrounding tissues was performed. I clearly identified the cricoid cartilage, the first, second and third tracheal rings. I then asked anesthesia to deflate the endotracheal tube balloon. The first and second tracheal ring anteriorly were then excised. The endotracheal tube was slowly withdrawn and a 8 fr cuffed, non fenestrated tracheostomy tube was inserted with ease. The inner cannula was placed and secured. The tracheostomy was connected to the ventilator with excellent tidal volume return. I then attempted to inflate the balloon which did not hold. As a result I exchanged it with a new tracheostomy tube which had an intact cuff. Vertical mattress sutures with a 2-0 nylon stitch were used to reapproximate the incision on the lateral aspects of the tracheostomy. The tracheostomy was secured with four 2-0 nylon's and a trach collar. At the end of the procedure, the instrument, sponge and needle counts were correct. The patient was transferred back to the ICU in stable condition. OLGA LOPEZ MD Aug 05, 2016 15:08
--- NOTE | 2016-08-05 15:20 | PDOC4 ---
PROCEDURE Procedure EGD/PEG IND: resp failure/enteral route for nutrition desired. Meds: GET in OR. Findings: E--Intubated with much difficulty (osteophyte?). Distal esophageal erosions likely from OG/reflux. G--OG erosions proximal stomach. Small ulcer, body--looks benign. D--Normal to second. --20F pull-type g-tube placed uneventfully. No re-scope due to difficult intubation. Tolerated well. IMP: reflux small gu OG erosions successful PEG REC: meds/water OK now If OK, feed in AM. Thanks. KEVAN HADDAD MD Aug 05, 2016 15:20
--- NOTE | 2016-08-05 15:30 | PDOC ---
Progress Note Subjective Subjective Stable overnight, no acute events. Normotensive and rate controlled atrial fibrillation. Afebrile. Alert and following commands. Attempted several CPAP trials. He did well with a pressure support of 20 but did not tolerate less pressure support. TAYA BAIN Unable to obtain-patient intubated Vital Sign Vital Signs Vital Signs Date Time Temp Pulse Resp B/P Pulse Ox O2 Delivery O2 Flow Rate FiO2 08/05/16 13:00 90 24 120/64 95 Ventilator 08/05/16 12:00 97.6 97.6 Physical Exam PHYSICAL EXAM GENERAL: Intubated, 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 HEENT: Pupils reactive, scleral icterus improving NECK: Supple LUNGS: Clear HEART: S1S2 CHEST: sternotomy: D/C/I ABD: Soft, NT EXT: edema improved, warm well perfused, pedal pulses palpable ROVING TECHNICIAN: Intubated,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 SKIN: No rash IV: ok Labs Lab Laboratory Tests Test 08/04/16 16:44 08/05/16 05:30 08/05/16 09:00 08/05/16 12:01 Glucose (Fingerstick) 129mg/dL (70-99) 115mg/dL (70-99) White Blood Count 10.9x10^3/uL (4.0-11.0) Red Blood Count 2.86x10^6/uL (4.30-5.70) Hemoglobin 9.2g/dL (13.0-17.5) Hematocrit 27.4% (39.0-53.0) Mean Corpuscular Volume 96fL (79-100) Mean Corpuscular Hemoglobin 32pg (25-35) Mean Corpuscular Hemoglobin Concent 34g/dL (31-37) Red Cell Distribution Width 16.4% (11.5-14.5) Platelet Count 104x10^3/uL (140-400) Neutrophils (%) (Auto) 92% (31-73) Lymphocytes (%) (Auto) 2% (24-48) Monocytes (%) (Auto) 5% (0-9) Eosinophils (%) (Auto) 0% (0-3) Basophils (%) (Auto) 1% (0-3) Neutrophils # (Auto) 10.1x10^3uL (1.8-7.7) Lymphocytes # (Auto) 0.2x10^3/uL (1.0-4.8) Monocytes # (Auto) 0.5x10^3/uL (0.0-1.1) Eosinophils # (Auto) 0.0x10^3/uL (0.0-0.7) Basophils # (Auto) 0.1x10^3/uL (0.0-0.2) Sodium Level 145mmol/L (136-145) Potassium Level 4.4mmol/L (3.5-5.1) Chloride Level 105mmol/L (98-107) Carbon Dioxide Level 26mmol/L (21-32) Anion Gap 14 (6-14) Blood Urea Nitrogen 64mg/dL (8-26) Creatinine 3.0mg/dL (0.7-1.3) Estimated GFR (Cockcroft-Gault) 21.7 Glucose Level 139mg/dL (70-99) Calcium Level 8.4mg/dL (8.5-10.1) Phosphorus Level 6.8mg/dL (2.6-4.7) Albumin 2.7g/dL (3.4-5.0) O2 Saturation 90% (92-99) Arterial Blood pH 7.44 (7.35-7.45) Arterial Blood pCO2 at Patient Temp 39mmHg (35-46) Arterial Blood pO2 at Patient Temp 67mmHg (75-108) Arterial Blood HCO3 26mmol/L (21-28) Arterial Blood Base Excess 2mmol/L (-3-3) FiO2 35 Objective Assessment Status post CABG 3 for severe ischemic cardiomyopathy, large anterior STEMI with troponin of 100, with early postoperative myocardial infarction/V. fib, leading to cardiogenic shock, placement of the vein graft to the LAD and impella for mechanical circulatory support and open chest. Sternotomy has been closed and the LVAD has been removed. The patient subsequently developed septic shock of unknown etiology. He has now recovered from sepsis although he did develop acute renal failure requiring dialysis. Has been doing well with CPAP trials but with high pressure support. He has not tolerated procedure less than 20. Failure to wean from the ventilator Plan Plan of Care Proceed with tracheostomy and PEG today Continue weaning trials from the ventilator, less pressure support Attempt out of bed to chair tomorrow morning Restart tube feeds tomorrow morning Continue IV antibiotics Dialysis as per nephrology Heparin s/q for DVT prophylaxis OLGA LOPEZ MD Aug 05, 2016 15:30
[2016-08-05] MEDS: MICAFUNGIN 100 MG in IV DEXTROSE 5% 100 ML IV SCH (17:10)
[2016-08-05] MEDS: ATORVASTATIN CALCIUM 40 MG TABLET. PO SCH (20:32)
[2016-08-05] MEDS: ALPRAZolam 0.25 MG TABLET PEG PRN (20:33)
[2016-08-05] MEDS: HALOPERIDOL LACTATE 5 MG/ML VIAL. IVP PRN (20:35)
[2016-08-06] VITALS (24 sets, daily range): BP systolic 106–169; BP diastolic 53–79
[2016-08-06] MEDS: PIPERACILLIN/TAZOBACTAM 2.25 GM in IV NORMAL SALINE 50ML 50 ML IV SCH ×3 (05:40→17:41)
[2016-08-06 05:56] LABS: BASO % 0 % (0-3); EOS % 0 % (0-3); HEMATOCRIT 23.7 % (39.0-53.0); LYMPH # 0.2 x10^3/uL (1.0-4.8); LYMPH % 2 % (24-48); MEAN CORPUSCULAR HEMOGLOBIN 32 pg (25-35); MEAN CORPUSCULAR HGB CONC 34 g/dL (31-37); MEAN CORPUSCULAR VOLUME 95 fL (79-100); MONO % 4 % (0-9); NEUT % 94 % (31-73); PLATELET COUNT 92 x10^3/uL (140-400); RED CELL DISTRIBUTION WIDTH 16.3 % (11.5-14.5); WHITE BLOOD COUNT 7.1 x10^3/uL (4.0-11.0)
[2016-08-06 06:13] LABS: ALBUMIN 2.3 g/dL (3.4-5.0); CALCIUM 7.8 mg/dL (8.5-10.1); CREATININE 3.3 mg/dL (0.7-1.3); GFR 19.4; PHOSPHORUS 7.9 mg/dL (2.6-4.7); POTASSIUM 5.2 mmol/L (3.5-5.1)
[2016-08-06] MEDS: METOCLOPRAMIDE HCL 10 MG/2 ML VIAL. IV PRN (07:26)
[2016-08-06] MEDS: PANTOPRAZOLE IV PUSH 40 MG VIAL. IVP SCH (07:26)
[2016-08-06] MEDS: ASPIRIN 325 MG TABLET PO SCH (07:26)
[2016-08-06] MEDS: CHLORHEXIDINE 0.12% 15 ML MOUTHWASH. MM SCH ×2 (07:26→21:05)
[2016-08-06] MEDS: SEVELAMER CARBONATE 2.4 GM PACKET. FT SCH ×2 (07:27→21:04)
[2016-08-06] MEDS: AMIODARONE HCL 200 MG TABLET. PO SCH ×2 (07:27→21:05)
[2016-08-06] MEDS: METOPROLOL TART IMMED RELEASE 25 MG TABLET. NG SCH ×2 (07:27→21:04)
[2016-08-06] MEDS: HEPARIN PF for SUB-Q USE 5,000 UNIT/0.5 ML VIAL. SQ SCH ×2 (07:29→21:34)
[2016-08-06] MEDS: INSULIN ASPART 300 UNITS/3 ML INSULN.PEN SQ SCH ×3 (07:30→17:02)
[2016-08-06] MEDS: MINERAL OIL/PETROLATUM,WHITE OPHTH OINT 3.5GM TUBE. OU SCH ×2 (07:33→21:06)
[2016-08-06] MEDS: IPRATROPIUM BROMIDE 0.5 MG/2.5 ML NEBU. NEB SCH ×4 (07:46→20:00)
[2016-08-06 08:50] LABS: HCO3 ABG 23 mmol/L (21-28); PCO2 ABG 39 mmHg (35-46); PH ABG 7.39 (7.35-7.45); PO2 ABG 91 mmHg (75-108); SAT O2 ABG 96 % (92-99)
[2016-08-06 09:02] LABS: FIO2 ABG 40
--- NOTE | 2016-08-06 10:00 | PDOC ---
PULMONARY PROGRESS NOTES Subjective s/p trach 08/05 awake, off sedation Vitals Vital Signs Date Time Temp Pulse Resp B/P Pulse Ox O2 Delivery O2 Flow Rate FiO2 08/06/16 09:00 81 26 157/76 97 Ventilator 08/06/16 08:00 98.7 98.7 General: Alert HEENT: Other (nc at perrl orally intubated nose clease. neck, no lap thyromegaly) Lungs: Other (decrease bs) Cardiovascular: Other (tachy) Abdomen: Soft, Non-tender, Other Extremities: Other (jaundice) Skin: Warm Labs Laboratory Tests Test 08/04/16 11:21 08/04/16 16:44 08/05/16 05:30 08/05/16 09:00 Glucose (Fingerstick) 115mg/dL (70-99) 129mg/dL (70-99) White Blood Count 10.9x10^3/uL (4.0-11.0) Red Blood Count 2.86x10^6/uL (4.30-5.70) Hemoglobin 9.2g/dL (13.0-17.5) Hematocrit 27.4% (39.0-53.0) Mean Corpuscular Volume 96fL (79-100) Mean Corpuscular Hemoglobin 32pg (25-35) Mean Corpuscular Hemoglobin Concent 34g/dL (31-37) Red Cell Distribution Width 16.4% (11.5-14.5) Platelet Count 104x10^3/uL (140-400) Neutrophils (%) (Auto) 92% (31-73) Lymphocytes (%) (Auto) 2% (24-48) Monocytes (%) (Auto) 5% (0-9) Eosinophils (%) (Auto) 0% (0-3) Basophils (%) (Auto) 1% (0-3) Neutrophils # (Auto) 10.1x10^3uL (1.8-7.7) Lymphocytes # (Auto) 0.2x10^3/uL (1.0-4.8) Monocytes # (Auto) 0.5x10^3/uL (0.0-1.1) Eosinophils # (Auto) 0.0x10^3/uL (0.0-0.7) Basophils # (Auto) 0.1x10^3/uL (0.0-0.2) Sodium Level 145mmol/L (136-145) Potassium Level 4.4mmol/L (3.5-5.1) Chloride Level 105mmol/L (98-107) Carbon Dioxide Level 26mmol/L (21-32) Anion Gap 14 (6-14) Blood Urea Nitrogen 64mg/dL (8-26) Creatinine 3.0mg/dL (0.7-1.3) Estimated GFR (Cockcroft-Gault) 21.7 Glucose Level 139mg/dL (70-99) Calcium Level 8.4mg/dL (8.5-10.1) Phosphorus Level 6.8mg/dL (2.6-4.7) Albumin 2.7g/dL (3.4-5.0) O2 Saturation 90% (92-99) Arterial Blood pH 7.44 (7.35-7.45) Arterial Blood pCO2 at Patient Temp 39mmHg (35-46) Arterial Blood pO2 at Patient Temp 67mmHg (75-108) Arterial Blood HCO3 26mmol/L (21-28) Arterial Blood Base Excess 2mmol/L (-3-3) FiO2 35 Test 08/05/16 12:01 08/05/16 17:07 08/05/16 23:45 08/06/16 05:40 Glucose (Fingerstick) 115mg/dL (70-99) 147mg/dL (70-99) 156mg/dL (70-99) White Blood Count 7.1x10^3/uL (4.0-11.0) Red Blood Count 2.50x10^6/uL (4.30-5.70) Hemoglobin 8.0g/dL (13.0-17.5) Hematocrit 23.7% (39.0-53.0) Mean Corpuscular Volume 95fL (79-100) Mean Corpuscular Hemoglobin 32pg (25-35) Mean Corpuscular Hemoglobin Concent 34g/dL (31-37) Red Cell Distribution Width 16.3% (11.5-14.5) Platelet Count 92x10^3/uL (140-400) Neutrophils (%) (Auto) 94% (31-73) Lymphocytes (%) (Auto) 2% (24-48) Monocytes (%) (Auto) 4% (0-9) Eosinophils (%) (Auto) 0% (0-3) Basophils (%) (Auto) 0% (0-3) Neutrophils # (Auto) 6.6x10^3uL (1.8-7.7) Lymphocytes # (Auto) 0.2x10^3/uL (1.0-4.8) Monocytes # (Auto) 0.3x10^3/uL (0.0-1.1) Eosinophils # (Auto) 0.0x10^3/uL (0.0-0.7) Basophils # (Auto) 0.0x10^3/uL (0.0-0.2) Sodium Level 143mmol/L (136-145) Potassium Level 5.2mmol/L (3.5-5.1) Chloride Level 104mmol/L (98-107) Carbon Dioxide Level 28mmol/L (21-32) Anion Gap 11 (6-14) Blood Urea Nitrogen 70mg/dL (8-26) Creatinine 3.3mg/dL (0.7-1.3) Estimated GFR (Cockcroft-Gault) 19.4 Glucose Level 154mg/dL (70-99) Calcium Level 7.8mg/dL (8.5-10.1) Phosphorus Level 7.9mg/dL (2.6-4.7) Albumin 2.3g/dL (3.4-5.0) Test 08/06/16 08:00 O2 Saturation 96% (92-99) Arterial Blood pH 7.39 (7.35-7.45) Arterial Blood pCO2 at Patient Temp 39mmHg (35-46) Arterial Blood pO2 at Patient Temp 91mmHg (75-108) Arterial Blood HCO3 23mmol/L (21-28) Arterial Blood Base Excess -2mmol/L (-3-3) FiO2 40 Laboratory Tests Test 08/05/16 12:01 08/05/16 17:07 08/05/16 23:45 08/06/16 05:40 Glucose (Fingerstick) 115mg/dL (70-99) 147mg/dL (70-99) 156mg/dL (70-99) White Blood Count 7.1x10^3/uL (4.0-11.0) Red Blood Count 2.50x10^6/uL (4.30-5.70) Hemoglobin 8.0g/dL (13.0-17.5) Hematocrit 23.7% (39.0-53.0) Mean Corpuscular Volume 95fL (79-100) Mean Corpuscular Hemoglobin 32pg (25-35) Mean Corpuscular Hemoglobin Concent 34g/dL (31-37) Red Cell Distribution Width 16.3% (11.5-14.5) Platelet Count 92x10^3/uL (140-400) Neutrophils (%) (Auto) 94% (31-73) Lymphocytes (%) (Auto) 2% (24-48) Monocytes (%) (Auto) 4% (0-9) Eosinophils (%) (Auto) 0% (0-3) Basophils (%) (Auto) 0% (0-3) Neutrophils # (Auto) 6.6x10^3uL (1.8-7.7) Lymphocytes # (Auto) 0.2x10^3/uL (1.0-4.8) Monocytes # (Auto) 0.3x10^3/uL (0.0-1.1) Eosinophils # (Auto) 0.0x10^3/uL (0.0-0.7) Basophils # (Auto) 0.0x10^3/uL (0.0-0.2) Sodium Level 143mmol/L (136-145) Potassium Level 5.2mmol/L (3.5-5.1) Chloride Level 104mmol/L (98-107) Carbon Dioxide Level 28mmol/L (21-32) Anion Gap 11 (6-14) Blood Urea Nitrogen 70mg/dL (8-26) Creatinine 3.3mg/dL (0.7-1.3) Estimated GFR (Cockcroft-Gault) 19.4 Glucose Level 154mg/dL (70-99) Calcium Level 7.8mg/dL (8.5-10.1) Phosphorus Level 7.9mg/dL (2.6-4.7) Albumin 2.3g/dL (3.4-5.0) Test 08/06/16 08:00 O2 Saturation 96% (92-99) Arterial Blood pH 7.39 (7.35-7.45) Arterial Blood pCO2 at Patient Temp 39mmHg (35-46) Arterial Blood pO2 at Patient Temp 91mmHg (75-108) Arterial Blood HCO3 23mmol/L (21-28) Arterial Blood Base Excess -2mmol/L (-3-3) FiO2 40 Medications Active Scripts Medications Dose Route/Sig Days Date Category Amlodipine Besylate 5 Mg Tablet 5 Mg PO DAILY 07/20/16 Reported Pradaxa (Dabigatran Etexilate Mesylate) 150 Mg Capsule 1 Cap PO BID 07/20/16 Reported Metoprolol Succinate ( Xl ) (Metoprolol Succinate) 100 Mg Tab.er.24h 1 Tab PO DAILY 07/20/16 Reported Comments cxr reviewed,08/06 small LLL effusion Impression . 1. Expected respiratory failure, status post coronary artery bypass grafting. 2. Cardiogenic shock. followed by septic shock, improved 3. Early post-myocardial infarction complicated with ventricular fibrillation , s/p multiple shocks. 4. Status post implantation of Impella from mechanical circulating support. 5. 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 6. Tobacco use in remission. Spirometry revealed an FEV1, which was 3.2 liters preoperatively. 7. Nutrition, currently on tube feeding. 8. History of hypertension. 9. Severe cardiomyopathy ejection fraction 25%. 10. Peripheral artery disease. 11. Atrial fibrillation. 12. Encephalopathy multifactorial (hepatic, metabolic), improved 13. High grade fever, sepsis, ? source, less likely lungs.ct chest reviewed. responding to antibiotics 14. Abnormal LFT due to sepsis, improving 15. renal failure , on HD Plan . 1. s/p trach 08/05 1. CPAP trial, may do T-collar today 2. Continue nutritional support with tube feeding. 3. off pressors, Pt does not tolerate dobutamine(increase HR) 4. HD 5. Continue BS empiric antibiotics. 6. repeat LFT MICHAEL SIEGEL MD Aug 06, 2016 10:00
[2016-08-06 10:45] LABS: ALBUMIN 2.4 g/dL (3.4-5.0); TOTAL BILIRUBIN 3.9 mg/dL (0.2-1.0); TOTAL PROTEIN 5.9 g/dL (6.4-8.2)
--- NOTE | 2016-08-06 10:46 | PDOC ---
CARDIO Progress Notes Date and Time Date of Service 08/06/2016 Time of Evaluation 1010 Subjective Subjective: No Chest Pain, No shortness of breath, No Palpitations, Other ( denies pain at this time) Comments: on hemodialysis Vitals Vitals Vital Signs Date Time Temp Pulse Resp B/P Pulse Ox O2 Delivery O2 Flow Rate FiO2 08/06/16 10:00 90 24 148/70 98 Ventilator 08/06/16 08:00 98.7 98.7 Weight Weight [ ] Stability Assessment Stability Assess.: unstable for transfer (Intesive V. sign monit. req) Input and Output Intake and Output Intake and Output 08/06/16 07:00 Intake Total 299 ml Output Total 70 ml Balance 229 ml IV Total 239 ml Other 60 ml Output Urine Total 70 ml Laboratory Labs Laboratory Tests Test 08/05/16 12:01 08/05/16 17:07 08/05/16 23:45 08/06/16 05:40 Glucose (Fingerstick) 115mg/dL (70-99) 147mg/dL (70-99) 156mg/dL (70-99) White Blood Count 7.1x10^3/uL (4.0-11.0) Red Blood Count 2.50x10^6/uL (4.30-5.70) Hemoglobin 8.0g/dL (13.0-17.5) Hematocrit 23.7% (39.0-53.0) Mean Corpuscular Volume 95fL (79-100) Mean Corpuscular Hemoglobin 32pg (25-35) Mean Corpuscular Hemoglobin Concent 34g/dL (31-37) Red Cell Distribution Width 16.3% (11.5-14.5) Platelet Count 92x10^3/uL (140-400) Neutrophils (%) (Auto) 94% (31-73) Lymphocytes (%) (Auto) 2% (24-48) Monocytes (%) (Auto) 4% (0-9) Eosinophils (%) (Auto) 0% (0-3) Basophils (%) (Auto) 0% (0-3) Neutrophils # (Auto) 6.6x10^3uL (1.8-7.7) Lymphocytes # (Auto) 0.2x10^3/uL (1.0-4.8) Monocytes # (Auto) 0.3x10^3/uL (0.0-1.1) Eosinophils # (Auto) 0.0x10^3/uL (0.0-0.7) Basophils # (Auto) 0.0x10^3/uL (0.0-0.2) Sodium Level 143mmol/L (136-145) Potassium Level 5.2mmol/L (3.5-5.1) Chloride Level 104mmol/L (98-107) Carbon Dioxide Level 28mmol/L (21-32) Anion Gap 11 (6-14) Blood Urea Nitrogen 70mg/dL (8-26) Creatinine 3.3mg/dL (0.7-1.3) Estimated GFR (Cockcroft-Gault) 19.4 Glucose Level 154mg/dL (70-99) Calcium Level 7.8mg/dL (8.5-10.1) Phosphorus Level 7.9mg/dL (2.6-4.7) Albumin 2.3g/dL (3.4-5.0) Test 08/06/16 08:00 O2 Saturation 96% (92-99) Arterial Blood pH 7.39 (7.35-7.45) Arterial Blood pCO2 at Patient Temp 39mmHg (35-46) Arterial Blood pO2 at Patient Temp 91mmHg (75-108) Arterial Blood HCO3 23mmol/L (21-28) Arterial Blood Base Excess -2mmol/L (-3-3) FiO2 40 Microbiology Micro Microbiology 08/02/16 Blood Culture - Preliminary, Resulted NO GROWTH AFTER 3 DAYS 08/03/16 Sputum Culture - Final, Complete 08/03/16 Sputum Result 1 - Final, Complete 08/03/16 Sputum Result 2 - Final, Complete 08/03/16 Antimicrobic Susceptibility - Final, Complete 08/02/16 Urine Culture - Final, Complete 08/02/16 Urine Culture Result 1 (MILEY) - Final, Complete 08/03/16 Gram Stain - Final, Complete Case Discussion Case Discussed with: Family, Other (RN) Continued Hospitalization Reason for continued Hospitali: IVABX, abnormal labs Physical Exam HEENT: Neck Supple W Full Motion Chest: Symmetric LUNGS: Other (diminished bases. currently has trach and now on CPAP and tolerating) Heart: S1S2, RRR (AFIB/aflutter), irregularly irregular, other (atrial flutter) Abdomen: Soft N/T Extremities: Other (anasarca; 2+ bilateral LE pitting edema, neurovascular status to bilateral LE intact) Neurology: alert, follow commands, other (awake) Assessment Assessment 1. STEMI CABG on 07/25/2016 with FLETCHER to LAD; SVG to LAD; SVG to OM1 and SVG to RPDA VF arrest post-op with post-op MD continue amiodarone, no significant ectopies overnight 2. Cardiogenic shock LVEF ~ 25-30% post CABG BP adequate and stable. Off pressors. If BP continues to trend much higher then will uptitrate po BB. ACEi on hold currently with JAKE. 3. ischemic cardiomyopathy/anasarca LVEF mildly depressed @ 45% on echo pre-op then decreased as above Fluid off loading per HD Compensated 4. acute respiratory failure S/P trach, tolerated procedure, now on CPAP PEG is also in placed 5. JAKE continues on HD per nephrology 6. sepsis abx per ID CT chest/abd/pelvis 08/03/16 with perihepatic fluid; fluid in the paracolic gutter and anasarca suggested CT chest suggestive of atelectasis or pneumonia 7. HLD statin therapy 8. atrial fib remains controlled Unable to be aggressive with OAC due to #9 9. small right frontal SDH decreased on CT scan done 08/03/2016 10. metabolic encephalopathy improved 11. Critical illness neuropathy per Neuro 12. Postop anemia Hgb 8.0 BANDAR PARADA MOLD FILLER AND DRAINER Aug 06, 2016 10:46
--- NOTE | 2016-08-06 10:58 | PDOC ---
Subjective: Subjective: Pt tolerating meds and TF through PEG Objective: Vital Signs: Vital Signs Date Time Temp Pulse Resp B/P Pulse Ox O2 Delivery O2 Flow Rate FiO2 08/06/16 10:00 90 24 148/70 98 Ventilator 08/06/16 08:00 98.7 98.7 Labs: Laboratory Tests Test 08/05/16 12:01 08/05/16 17:07 08/05/16 23:45 08/06/16 05:40 Glucose (Fingerstick) 115mg/dL (70-99) 147mg/dL (70-99) 156mg/dL (70-99) White Blood Count 7.1x10^3/uL (4.0-11.0) Red Blood Count 2.50x10^6/uL (4.30-5.70) Hemoglobin 8.0g/dL (13.0-17.5) Hematocrit 23.7% (39.0-53.0) Mean Corpuscular Volume 95fL (79-100) Mean Corpuscular Hemoglobin 32pg (25-35) Mean Corpuscular Hemoglobin Concent 34g/dL (31-37) Red Cell Distribution Width 16.3% (11.5-14.5) Platelet Count 92x10^3/uL (140-400) Neutrophils (%) (Auto) 94% (31-73) Lymphocytes (%) (Auto) 2% (24-48) Monocytes (%) (Auto) 4% (0-9) Eosinophils (%) (Auto) 0% (0-3) Basophils (%) (Auto) 0% (0-3) Neutrophils # (Auto) 6.6x10^3uL (1.8-7.7) Lymphocytes # (Auto) 0.2x10^3/uL (1.0-4.8) Monocytes # (Auto) 0.3x10^3/uL (0.0-1.1) Eosinophils # (Auto) 0.0x10^3/uL (0.0-0.7) Basophils # (Auto) 0.0x10^3/uL (0.0-0.2) Sodium Level 143mmol/L (136-145) Potassium Level 5.2mmol/L (3.5-5.1) Chloride Level 104mmol/L (98-107) Carbon Dioxide Level 28mmol/L (21-32) Anion Gap 11 (6-14) Blood Urea Nitrogen 70mg/dL (8-26) Creatinine 3.3mg/dL (0.7-1.3) Estimated GFR (Cockcroft-Gault) 19.4 Glucose Level 154mg/dL (70-99) Calcium Level 7.8mg/dL (8.5-10.1) Phosphorus Level 7.9mg/dL (2.6-4.7) Total Bilirubin 3.9mg/dL (0.2-1.0) Direct Bilirubin 3.0mg/dL (0.0-0.2) Aspartate Amino Transf (AST/SGOT) 42U/L (15-37) Alanine Aminotransferase (ALT/SGPT) 75U/L (16-63) Alkaline Phosphatase 76U/L (46-116) Total Protein 5.9g/dL (6.4-8.2) Albumin 2.4g/dL (3.4-5.0) Test 08/06/16 08:00 O2 Saturation 96% (92-99) Arterial Blood pH 7.39 (7.35-7.45) Arterial Blood pCO2 at Patient Temp 39mmHg (35-46) Arterial Blood pO2 at Patient Temp 91mmHg (75-108) Arterial Blood HCO3 23mmol/L (21-28) Arterial Blood Base Excess -2mmol/L (-3-3) FiO2 40 Physical Exam: Physical Exam: GEN: NAD HEENT: trach ABD: NABS, SNT/ND. PEG in place Assessment & Plan: Assessment : 1) Elevated LFTs- improving 2)Dysphagia- s/p PEG. tolerating meds and TF Plan: cont meds and TF through PEG. Dr Aparicio returns Monday. Please call with questions/concerns Problems: BRICE CERVANTES MD Aug 06, 2016 10:58
[2016-08-06] MEDS: ALPRAZolam 0.25 MG TABLET PEG PRN ×2 (11:17→21:04)
--- NOTE | 2016-08-06 11:31 | PDOC ---
Renal-Progress Notes Subjective Notes Notes NONE, INTUBATED History of Present Illness Hx of present illness SLOWLY IMPROVING Vitals Vitals Vital Signs Date Time Temp Pulse Resp B/P Pulse Ox O2 Delivery O2 Flow Rate FiO2 08/06/16 10:00 90 24 148/70 98 Ventilator 08/06/16 08:00 98.7 98.7 Weight Weight [ ] Stability Assess. Stability Assess.: unstable for transfer (Intesive V. sign monit. req) I.O. Intake and Output Intake and Output 08/06/16 06:59 Intake Total 299 ml Output Total 85 ml Balance 214 ml IV Total 239 ml Other 60 ml Output Urine Total 85 ml Labs Labs Laboratory Tests Test 08/05/16 12:01 08/05/16 17:07 08/05/16 23:45 08/06/16 05:40 Glucose (Fingerstick) 115mg/dL (70-99) 147mg/dL (70-99) 156mg/dL (70-99) White Blood Count 7.1x10^3/uL (4.0-11.0) Red Blood Count 2.50x10^6/uL (4.30-5.70) Hemoglobin 8.0g/dL (13.0-17.5) Hematocrit 23.7% (39.0-53.0) Mean Corpuscular Volume 95fL (79-100) Mean Corpuscular Hemoglobin 32pg (25-35) Mean Corpuscular Hemoglobin Concent 34g/dL (31-37) Red Cell Distribution Width 16.3% (11.5-14.5) Platelet Count 92x10^3/uL (140-400) Neutrophils (%) (Auto) 94% (31-73) Lymphocytes (%) (Auto) 2% (24-48) Monocytes (%) (Auto) 4% (0-9) Eosinophils (%) (Auto) 0% (0-3) Basophils (%) (Auto) 0% (0-3) Neutrophils # (Auto) 6.6x10^3uL (1.8-7.7) Lymphocytes # (Auto) 0.2x10^3/uL (1.0-4.8) Monocytes # (Auto) 0.3x10^3/uL (0.0-1.1) Eosinophils # (Auto) 0.0x10^3/uL (0.0-0.7) Basophils # (Auto) 0.0x10^3/uL (0.0-0.2) Sodium Level 143mmol/L (136-145) Potassium Level 5.2mmol/L (3.5-5.1) Chloride Level 104mmol/L (98-107) Carbon Dioxide Level 28mmol/L (21-32) Anion Gap 11 (6-14) Blood Urea Nitrogen 70mg/dL (8-26) Creatinine 3.3mg/dL (0.7-1.3) Estimated GFR (Cockcroft-Gault) 19.4 Glucose Level 154mg/dL (70-99) Calcium Level 7.8mg/dL (8.5-10.1) Phosphorus Level 7.9mg/dL (2.6-4.7) Total Bilirubin 3.9mg/dL (0.2-1.0) Direct Bilirubin 3.0mg/dL (0.0-0.2) Aspartate Amino Transf (AST/SGOT) 42U/L (15-37) Alanine Aminotransferase (ALT/SGPT) 75U/L (16-63) Alkaline Phosphatase 76U/L (46-116) Total Protein 5.9g/dL (6.4-8.2) Albumin 2.4g/dL (3.4-5.0) Test 08/06/16 08:00 08/06/16 11:08 O2 Saturation 96% (92-99) Arterial Blood pH 7.39 (7.35-7.45) Arterial Blood pCO2 at Patient Temp 39mmHg (35-46) Arterial Blood pO2 at Patient Temp 91mmHg (75-108) Arterial Blood HCO3 23mmol/L (21-28) Arterial Blood Base Excess -2mmol/L (-3-3) FiO2 40 Glucose (Fingerstick) 159mg/dL (70-99) Micro Micro Microbiology 08/02/16 Blood Culture - Preliminary, Resulted NO GROWTH AFTER 3 DAYS 08/03/16 Sputum Culture - Final, Complete 08/03/16 Sputum Result 1 - Final, Complete 08/03/16 Sputum Result 2 - Final, Complete 08/03/16 Antimicrobic Susceptibility - Final, Complete 08/02/16 Urine Culture - Final, Complete 08/02/16 Urine Culture Result 1 (MILEY) - Final, Complete 08/03/16 Gram Stain - Final, Complete Case Discussion Case Discussed with: Family, Other (RN) Continued Hospitalization Reason for continued Hospitali: IVABX, abnormal labs Physical Exam General Appearance: no apparent distress Skin: warm Respiratory: bilateral CTA Heart: S1S2 Abdomen: soft, bowel sounds present Extremities: pulses present Neurology: alert, other (awake) Assessment Assessment IMP RESP FAILURE JAKE-ANURIA CAD-S/P CABG S/P TRACH AND PEG PLAN VENT WEANING CONT WITH TF HD TODAY UF TOWARDS DW UPDATED DAUGHTER AT BEDSIDE D/W JORDI THOMAS MD Aug 06, 2016 11:31
--- NOTE | 2016-08-06 11:42 | PDOC ---
Infectious Disease Note Subjective Subjective s/p trach and PEG. No fever ube feedings Deneis pain ROS ROS Limited Vital Sign Vital Signs Vital Signs Date Time Temp Pulse Resp B/P Pulse Ox O2 Delivery O2 Flow Rate FiO2 08/06/16 10:00 90 24 148/70 98 Ventilator 08/06/16 08:00 98.7 98.7 Physical Exam PHYSICAL EXAM GENERAL: Awake, calm HEENT: PERRL, Icteric. Oral mucosa dry NECK: Trach/vent. FiO2 40% LUNGS: Improved aeration HEART: S1S2 ABD: Mildly distended, BS present, soft, NT. PEG intact : Tesfaye EXT: Generalized edema 1+. No cyanosis REVISING CLERK: Awake, nods to few questions SKIN: No rash, Jaundice. Sternal and left leg incision well-approximate. no redness RUE PICC clean RIJ temp HD cath 08/03). clean Labs Lab Laboratory Tests Test 08/05/16 12:01 08/05/16 17:07 08/05/16 23:45 08/06/16 05:40 Glucose (Fingerstick) 115mg/dL (70-99) 147mg/dL (70-99) 156mg/dL (70-99) White Blood Count 7.1x10^3/uL (4.0-11.0) Red Blood Count 2.50x10^6/uL (4.30-5.70) Hemoglobin 8.0g/dL (13.0-17.5) Hematocrit 23.7% (39.0-53.0) Mean Corpuscular Volume 95fL (79-100) Mean Corpuscular Hemoglobin 32pg (25-35) Mean Corpuscular Hemoglobin Concent 34g/dL (31-37) Red Cell Distribution Width 16.3% (11.5-14.5) Platelet Count 92x10^3/uL (140-400) Neutrophils (%) (Auto) 94% (31-73) Lymphocytes (%) (Auto) 2% (24-48) Monocytes (%) (Auto) 4% (0-9) Eosinophils (%) (Auto) 0% (0-3) Basophils (%) (Auto) 0% (0-3) Neutrophils # (Auto) 6.6x10^3uL (1.8-7.7) Lymphocytes # (Auto) 0.2x10^3/uL (1.0-4.8) Monocytes # (Auto) 0.3x10^3/uL (0.0-1.1) Eosinophils # (Auto) 0.0x10^3/uL (0.0-0.7) Basophils # (Auto) 0.0x10^3/uL (0.0-0.2) Sodium Level 143mmol/L (136-145) Potassium Level 5.2mmol/L (3.5-5.1) Chloride Level 104mmol/L (98-107) Carbon Dioxide Level 28mmol/L (21-32) Anion Gap 11 (6-14) Blood Urea Nitrogen 70mg/dL (8-26) Creatinine 3.3mg/dL (0.7-1.3) Estimated GFR (Cockcroft-Gault) 19.4 Glucose Level 154mg/dL (70-99) Calcium Level 7.8mg/dL (8.5-10.1) Phosphorus Level 7.9mg/dL (2.6-4.7) Total Bilirubin 3.9mg/dL (0.2-1.0) Direct Bilirubin 3.0mg/dL (0.0-0.2) Aspartate Amino Transf (AST/SGOT) 42U/L (15-37) Alanine Aminotransferase (ALT/SGPT) 75U/L (16-63) Alkaline Phosphatase 76U/L (46-116) Total Protein 5.9g/dL (6.4-8.2) Albumin 2.4g/dL (3.4-5.0) Test 08/06/16 08:00 O2 Saturation 96% (92-99) Arterial Blood pH 7.39 (7.35-7.45) Arterial Blood pCO2 at Patient Temp 39mmHg (35-46) Arterial Blood pO2 at Patient Temp 91mmHg (75-108) Arterial Blood HCO3 23mmol/L (21-28) Arterial Blood Base Excess -2mmol/L (-3-3) FiO2 40 Micro SPUTUM CULT RES 1 Final Enterobacter cloacae complex SPUTUM CULT RES 2 Final Staphylococcus aureus Methicillin resistant (MRSA) Antibiotic RSLT#1 RSLT#2 Amoxicillin/Clavulanic Acid R Cefazolin R Cefepime S Ceftriaxone S Cefuroxime R Ciprofloxacin S R Clindamycin R Ertapenem S Erythromycin R Gentamicin S S Imipenem S Levofloxacin S R Linezolid S Oxacillin R Penicillin R Piperacillin S Rifampin S Tetracycline S S Tobramycin S Trimethoprim/Sulfa S S Vancomycin S Objective Assessment ? sepsis. Elevated Procalcitonin - renal failure playing into it Fever -? ID vs REVISING CLERK bleed vs sinusitis, etc - improved Perihepatic fluid on CT abd/pelvis JAKE - s/p HD Sinusitis CT 08/01 Resp failure. s/p tracheostomy, 08/05 Enterobacter and MRSA in sputum. 08/03 s/p PEG placement. 08/05 Cardiogenic shock Severe three-vessel coronary artery disease -s/p CABG 3 and placement of left ventricular assist device (Impella 3.0). -s/p mediastinal washout and closure of sternotomy. 07/[address] elevation myocardial infarction. on amiodarone S/p Left external iliac artery subtotal occlusion, angioplasty, removal of a Impella CP percutaneous left ventricular assist device. Primary repair of common femoral artery. 07/28 Small extra-axial fluid collection posteriorly near the right hemispheric vertex consistent with a small area of bleeding CT head 08/01 - stable on recent CT Severe ischemic cardiomyopathy A-fib Thrombocytopenia Plan Plan of Care Cont Zosyn and Micafungin. Add Zyvox Monitor labs May need further eval of perihepatic fluid if worsens but may dissipate with fluid control Contact isolation Critically ill but better Patient seen and examined. Chart reviewed. Case discussed with PLATER APPRENTICE. Agree with above plan. LAUREN ROLLINS APRN Aug 06, 2016 11:42 LANA HESS MD Aug 06, 2016 17:42
--- NOTE | 2016-08-06 11:54 | RAD ---
AP portable chest radiograph 08/06/2016 Clinical History: Tracheostomy tube placement An AP portable erect digital radiograph of the chest was obtained. Comparison study is dated 08/04/2016. The ET tube has been removed. The NG tube has been removed. Tracheostomy tube has been placed. The tip of this tube overlies the trachea at the level of clavicles. Right arm PICC and right internal jugular large bore central venous catheter are unchanged in position. The patient is status post CABG procedure. Cardiac silhouette is borderline enlarged. The thoracic aorta is mildly tortuous. Areas of atelectasis and/or infiltrate are seen involving both lower lobes, left greater than right. There is a probable small left pleural effusion. No pneumothorax is seen. The osseous structures are unchanged. Impression: Interval placement of a tracheostomy tube. The tip of this tube overlies the trachea at the level of clavicles.
--- NOTE | 2016-08-06 12:21 | PDOC ---
PROGRESS NOTES Chief Complaint Chief Complaint Chest pain STEMI 1. STEMI: 3-vessel dz by cardiac cath (07/20/16). s/p CABG on 07/25/2016 : FLETCHER to LAD; SVG to LAD; SVG to OM1 and SVG to RPDA. VF arrest after chest closed; reopened and placed back on bypass then converted to LVAD. chest closed yesterday 2. cardiogenic shock 3. PAD 4. Cardiomyopathy: EF 20% 5. Afib: on amiodarone and metoprolol. off dig 6. HTN 7. metabolic encephalopathy with 2, better 08/04 8. HLD: on statin, currently on hold 9. DM: on insulin gtt 10: Nutrition: cautious NG feed today 11. liver shock with 2 12. MILD ICH, no intervention 13. possible septic shock 14. JAKE, with 2,. ATN poor prognosis, cont current meds fu with CT, card, pulm, neurosx trach PEG 08/05 dvt, gi ppx off levaphed and vasopressin, keep MAP >65 lasix dced as per CT ON iv abx as per CT, fu ucx, bcx head CT, chest/abd/pelvis CT showed PNA HD since 08/03 cont supportive care, may need LTAC next week CC time 40 min History of Present Illness History of Present Illness intubated, off sedation 3 days, spontaneously open eyes, mental better 08/04, open eyes, follow commands by squeezing hands tachycardia, afib, off dobutamine low bp , on levaphod and vaso since 08/02, off 08/05 Trach , PEG 08/05 EF 20% Head CT 08/01 showed mild ICH better WBC higher Cr on HD now Vitals Vitals Vital Signs Date Time Temp Pulse Resp B/P Pulse Ox O2 Delivery O2 Flow Rate FiO2 08/06/16 11:00 98.4 100 28 146/74 98 Ventilator 98.4 Physical Exam Physical Exam GENERAL: Intubated, 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 HEENT: Pupils reactive, scleral icterus improving NECK: Supple LUNGS: Clear HEART: S1S2 CHEST: sternotomy: D/C/I ABD: Soft, NT EXT: edema improved, warm well perfused, pedal pulses palpable COLD [employer]: Intubated,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 SKIN: No rash IV: ok General: Other (sedated, intubated, moving head) Heart: Other (tachy, irregular) Lungs: Other (decrease bs) Abdomen: Soft, Other (distended) Extremities: No edema, Other (+ edema x4) Skin: No rashes Labs LABS Laboratory Tests Test 08/05/16 17:07 08/05/16 23:45 08/06/16 05:40 08/06/16 08:00 Glucose (Fingerstick) 147mg/dL (70-99) 156mg/dL (70-99) White Blood Count 7.1x10^3/uL (4.0-11.0) Red Blood Count 2.50x10^6/uL (4.30-5.70) Hemoglobin 8.0g/dL (13.0-17.5) Hematocrit 23.7% (39.0-53.0) Mean Corpuscular Volume 95fL (79-100) Mean Corpuscular Hemoglobin 32pg (25-35) Mean Corpuscular Hemoglobin Concent 34g/dL (31-37) Red Cell Distribution Width 16.3% (11.5-14.5) Platelet Count 92x10^3/uL (140-400) Neutrophils (%) (Auto) 94% (31-73) Lymphocytes (%) (Auto) 2% (24-48) Monocytes (%) (Auto) 4% (0-9) Eosinophils (%) (Auto) 0% (0-3) Basophils (%) (Auto) 0% (0-3) Neutrophils # (Auto) 6.6x10^3uL (1.8-7.7) Lymphocytes # (Auto) 0.2x10^3/uL (1.0-4.8) Monocytes # (Auto) 0.3x10^3/uL (0.0-1.1) Eosinophils # (Auto) 0.0x10^3/uL (0.0-0.7) Basophils # (Auto) 0.0x10^3/uL (0.0-0.2) Sodium Level 143mmol/L (136-145) Potassium Level 5.2mmol/L (3.5-5.1) Chloride Level 104mmol/L (98-107) Carbon Dioxide Level 28mmol/L (21-32) Anion Gap 11 (6-14) Blood Urea Nitrogen 70mg/dL (8-26) Creatinine 3.3mg/dL (0.7-1.3) Estimated GFR (Cockcroft-Gault) 19.4 Glucose Level 154mg/dL (70-99) Calcium Level 7.8mg/dL (8.5-10.1) Phosphorus Level 7.9mg/dL (2.6-4.7) Total Bilirubin 3.9mg/dL (0.2-1.0) Direct Bilirubin 3.0mg/dL (0.0-0.2) Aspartate Amino Transf (AST/SGOT) 42U/L (15-37) Alanine Aminotransferase (ALT/SGPT) 75U/L (16-63) Alkaline Phosphatase 76U/L (46-116) Total Protein 5.9g/dL (6.4-8.2) Albumin 2.4g/dL (3.4-5.0) O2 Saturation 96% (92-99) Arterial Blood pH 7.39 (7.35-7.45) Arterial Blood pCO2 at Patient Temp 39mmHg (35-46) Arterial Blood pO2 at Patient Temp 91mmHg (75-108) Arterial Blood HCO3 23mmol/L (21-28) Arterial Blood Base Excess -2mmol/L (-3-3) FiO2 40 Test 08/06/16 11:08 Glucose (Fingerstick) 159mg/dL (70-99) Review of Systems Review of Systems no fever, chills, chest pain Assessment and Plan Assessmemt and Plan Problems Medical Problems: (1) CAD (coronary artery disease), [place] coronary artery Status: Acute (2) Chest pain Status: Acute (3) STEMI (ST elevation myocardial infarction) Status: Acute Problems: Comment Review of Relevant I have reviewed the following items leonidas (where applicable) has been applied. Labs Laboratory Tests Test 08/04/16 16:44 08/05/16 05:30 08/05/16 09:00 08/05/16 12:01 Glucose (Fingerstick) 129mg/dL (70-99) 115mg/dL (70-99) White Blood Count 10.9x10^3/uL (4.0-11.0) Red Blood Count 2.86x10^6/uL (4.30-5.70) Hemoglobin 9.2g/dL (13.0-17.5) Hematocrit 27.4% (39.0-53.0) Mean Corpuscular Volume 96fL (79-100) Mean Corpuscular Hemoglobin 32pg (25-35) Mean Corpuscular Hemoglobin Concent 34g/dL (31-37) Red Cell Distribution Width 16.4% (11.5-14.5) Platelet Count 104x10^3/uL (140-400) Neutrophils (%) (Auto) 92% (31-73) Lymphocytes (%) (Auto) 2% (24-48) Monocytes (%) (Auto) 5% (0-9) Eosinophils (%) (Auto) 0% (0-3) Basophils (%) (Auto) 1% (0-3) Neutrophils # (Auto) 10.1x10^3uL (1.8-7.7) Lymphocytes # (Auto) 0.2x10^3/uL (1.0-4.8) Monocytes # (Auto) 0.5x10^3/uL (0.0-1.1) Eosinophils # (Auto) 0.0x10^3/uL (0.0-0.7) Basophils # (Auto) 0.1x10^3/uL (0.0-0.2) Sodium Level 145mmol/L (136-145) Potassium Level 4.4mmol/L (3.5-5.1) Chloride Level 105mmol/L (98-107) Carbon Dioxide Level 26mmol/L (21-32) Anion Gap 14 (6-14) Blood Urea Nitrogen 64mg/dL (8-26) Creatinine 3.0mg/dL (0.7-1.3) Estimated GFR (Cockcroft-Gault) 21.7 Glucose Level 139mg/dL (70-99) Calcium Level 8.4mg/dL (8.5-10.1) Phosphorus Level 6.8mg/dL (2.6-4.7) Albumin 2.7g/dL (3.4-5.0) O2 Saturation 90% (92-99) Arterial Blood pH 7.44 (7.35-7.45) Arterial Blood pCO2 at Patient Temp 39mmHg (35-46) Arterial Blood pO2 at Patient Temp 67mmHg (75-108) Arterial Blood HCO3 26mmol/L (21-28) Arterial Blood Base Excess 2mmol/L (-3-3) FiO2 35 Test 08/05/16 17:07 08/05/16 23:45 08/06/16 05:40 08/06/16 08:00 Glucose (Fingerstick) 147mg/dL (70-99) 156mg/dL (70-99) White Blood Count 7.1x10^3/uL (4.0-11.0) Red Blood Count 2.50x10^6/uL (4.30-5.70) Hemoglobin 8.0g/dL (13.0-17.5) Hematocrit 23.7% (39.0-53.0) Mean Corpuscular Volume 95fL (79-100) Mean Corpuscular Hemoglobin 32pg (25-35) Mean Corpuscular Hemoglobin Concent 34g/dL (31-37) Red Cell Distribution Width 16.3% (11.5-14.5) Platelet Count 92x10^3/uL (140-400) Neutrophils (%) (Auto) 94% (31-73) Lymphocytes (%) (Auto) 2% (24-48) Monocytes (%) (Auto) 4% (0-9) Eosinophils (%) (Auto) 0% (0-3) Basophils (%) (Auto) 0% (0-3) Neutrophils # (Auto) 6.6x10^3uL (1.8-7.7) Lymphocytes # (Auto) 0.2x10^3/uL (1.0-4.8) Monocytes # (Auto) 0.3x10^3/uL (0.0-1.1) Eosinophils # (Auto) 0.0x10^3/uL (0.0-0.7) Basophils # (Auto) 0.0x10^3/uL (0.0-0.2) Sodium Level 143mmol/L (136-145) Potassium Level 5.2mmol/L (3.5-5.1) Chloride Level 104mmol/L (98-107) Carbon Dioxide Level 28mmol/L (21-32) Anion Gap 11 (6-14) Blood Urea Nitrogen 70mg/dL (8-26) Creatinine 3.3mg/dL (0.7-1.3) Estimated GFR (Cockcroft-Gault) 19.4 Glucose Level 154mg/dL (70-99) Calcium Level 7.8mg/dL (8.5-10.1) Phosphorus Level 7.9mg/dL (2.6-4.7) Total Bilirubin 3.9mg/dL (0.2-1.0) Direct Bilirubin 3.0mg/dL (0.0-0.2) Aspartate Amino Transf (AST/SGOT) 42U/L (15-37) Alanine Aminotransferase (ALT/SGPT) 75U/L (16-63) Alkaline Phosphatase 76U/L (46-116) Total Protein 5.9g/dL (6.4-8.2) Albumin 2.4g/dL (3.4-5.0) O2 Saturation 96% (92-99) Arterial Blood pH 7.39 (7.35-7.45) Arterial Blood pCO2 at Patient Temp 39mmHg (35-46) Arterial Blood pO2 at Patient Temp 91mmHg (75-108) Arterial Blood HCO3 23mmol/L (21-28) Arterial Blood Base Excess -2mmol/L (-3-3) FiO2 40 Test 08/06/16 11:08 Glucose (Fingerstick) 159mg/dL (70-99) Laboratory Tests Test 08/05/16 17:07 08/05/16 23:45 08/06/16 05:40 08/06/16 08:00 Glucose (Fingerstick) 147mg/dL (70-99) 156mg/dL (70-99) White Blood Count 7.1x10^3/uL (4.0-11.0) Red Blood Count 2.50x10^6/uL (4.30-5.70) Hemoglobin 8.0g/dL (13.0-17.5) Hematocrit 23.7% (39.0-53.0) Mean Corpuscular Volume 95fL (79-100) Mean Corpuscular Hemoglobin 32pg (25-35) Mean Corpuscular Hemoglobin Concent 34g/dL (31-37) Red Cell Distribution Width 16.3% (11.5-14.5) Platelet Count 92x10^3/uL (140-400) Neutrophils (%) (Auto) 94% (31-73) Lymphocytes (%) (Auto) 2% (24-48) Monocytes (%) (Auto) 4% (0-9) Eosinophils (%) (Auto) 0% (0-3) Basophils (%) (Auto) 0% (0-3) Neutrophils # (Auto) 6.6x10^3uL (1.8-7.7) Lymphocytes # (Auto) 0.2x10^3/uL (1.0-4.8) Monocytes # (Auto) 0.3x10^3/uL (0.0-1.1) Eosinophils # (Auto) 0.0x10^3/uL (0.0-0.7) Basophils # (Auto) 0.0x10^3/uL (0.0-0.2) Sodium Level 143mmol/L (136-145) Potassium Level 5.2mmol/L (3.5-5.1) Chloride Level 104mmol/L (98-107) Carbon Dioxide Level 28mmol/L (21-32) Anion Gap 11 (6-14) Blood Urea Nitrogen 70mg/dL (8-26) Creatinine 3.3mg/dL (0.7-1.3) Estimated GFR (Cockcroft-Gault) 19.4 Glucose Level 154mg/dL (70-99) Calcium Level 7.8mg/dL (8.5-10.1) Phosphorus Level 7.9mg/dL (2.6-4.7) Total Bilirubin 3.9mg/dL (0.2-1.0) Direct Bilirubin 3.0mg/dL (0.0-0.2) Aspartate Amino Transf (AST/SGOT) 42U/L (15-37) Alanine Aminotransferase (ALT/SGPT) 75U/L (16-63) Alkaline Phosphatase 76U/L (46-116) Total Protein 5.9g/dL (6.4-8.2) Albumin 2.4g/dL (3.4-5.0) O2 Saturation 96% (92-99) Arterial Blood pH 7.39 (7.35-7.45) Arterial Blood pCO2 at Patient Temp 39mmHg (35-46) Arterial Blood pO2 at Patient Temp 91mmHg (75-108) Arterial Blood HCO3 23mmol/L (21-28) Arterial Blood Base Excess -2mmol/L (-3-3) FiO2 40 Test 4/22/17 11:08 Glucose (Fingerstick) 159mg/dL (70-99) Microbiology 08/02/16 Blood Culture - Preliminary, Resulted NO GROWTH AFTER 3 DAYS 08/03/16 Sputum Culture - Final, Complete 08/03/16 Sputum Result 1 - Final, Complete 08/03/16 Sputum Result 2 - Final, Complete 08/03/16 Antimicrobic Susceptibility - Final, Complete 08/02/16 Urine Culture - Final, Complete 08/02/16 Urine Culture Result 1 (MILEY) - Final, Complete 08/03/16 Gram Stain - Final, Complete Medications Current Medications Nitroglycerin 0.4 mg 0.4 mg PRN Q5MIN PRN SL CP RATING > 1/10; Start 07/20/16 at 09:45; Stop 07/20/16 at 15:05; Status DC Nitroglycerin/ Dextrose (Nitroglycerin Drip) 250 ml @ 3 mls/hr 1X ONCE IV Last administered on 07/20/16 10:02; Start 07/20/16 at 10:30; Stop 07/23/16 at 21: 49; Status DC Morphine Sulfate 2 mg PRN Q15MIN PRN IV/SQ PAIN GREATER THAN 3/10; Start at 09:45; Stop 07/21/16 at 09:44; Status DC Ondansetron HCl (Zofran) 4 mg PRN Q8HRS PRN IV NAUSEA/VOMITING; Start 07/20/16 at 12:30; Stop 07/20/16 at 13:36; Status DC Morphine Sulfate 2 mg 2 mg PRN Q2HR PRN IV PAIN; Start 07/20/16 at 12:30; Stop 07/21/16 at 12:29; Status DC Heparin Sodium/ Dextrose 500 ml @ 0 mls/hr CONT PRN IV . Last administered on 10:32; Start 07/20/16 at 13:00; Stop 07/21/16 at 14:50; Status DC Metoprolol Tartrate (Lopressor) 5 mg Q6HRS IVP ; Start 07/20/16 at 13:00; Stop at 14:53; Status DC Aspirin (Ecotrin) 325 mg [id number] PO Last administered on 07/21/16 08:11; Start 07/20/16 at 13:00; Stop 07/21/16 at 17:20; Status DC Ondansetron HCl (Zofran) 4 mg PRN Q6HRS PRN IV NAUSEA/VOMITING; Start 07/20/16 at 13:35; Stop 07/26/16 at 11:41; Status DC Acetaminophen (Tylenol) 500 mg PRN Q6HRS PRN PO MILD PAIN / TEMP Last administered on 07/29/16 09:55; Start 07/20/16 at 13:45; Stop 07/29/16 at 13:38 ; Status DC Docusate Sodium (Colace) 100 mg DAILY PO Last administered on 07/29/16 09:54; Start 07/20/16 at 15:00; Stop 07/29/16 at 10:03; Status DC Iohexol 100 ml 100 ml STK-MED ONCE .ROUTE ; Start 07/20/16 at 12:40; Stop at 13:44; Status DC Heparin Sodium/ Sodium Chloride 1,000 ml @ As Directed STK-MED ONCE .ROUTE ; Start 07/20/16 at 12:41; Stop 07/20/16 at 13:44; Status DC Lidocaine HCl 20 ml STK-MED ONCE .ROUTE ; Start 07/20/16 at 12:41; Stop 07/20/16 at 13:44; Status DC Fentanyl Citrate (Fentanyl 2ml Vial) 100 mcg STK-MED ONCE .ROUTE ; Start at 13:42; Stop 07/20/16 at 13:45; Status DC Midazolam HCl (Versed) 2 mg STK-MED ONCE .ROUTE ; Start 07/20/16 at 13:42; Stop 07/20/16 at 13:45; Status DC Heparin Sodium/ Sodium Chloride 1,000 unit 1X ONCE IART Last administered on 14:29; Start 07/20/16 at 14:00; Stop 07/20/16 at 14:01; Status DC Heparin Sodium/ Sodium Chloride 1,000 unit 1X ONCE IART Last administered on 14:29; Start 07/20/16 at 14:00; Stop 07/20/16 at 14:01; Status DC Midazolam HCl (Versed) 2 mg 1X ONCE IV Last administered on 07/20/16 14:28; Start 07/20/16 at 14:00; Stop 07/20/16 at 14:01; Status DC Fentanyl Citrate (Fentanyl 2ml Vial) 100 mcg 1X ONCE IV Last administered on 14:28; Start 07/20/16 at 14:00; Stop 07/20/16 at 14:01; Status DC Iohexol (Omnipaque 300 Mg/ml) 100 ml 1X ONCE IART Last administered on 14:29; Start 07/20/16 at 14:00; Stop 07/20/16 at 14:01; Status DC Lidocaine HCl 20 ml 1X ONCE IJ Last administered on 07/20/16 14:29; Start 07/20 at 14:00; Stop 07/20/16 at 14:01; Status DC Midazolam HCl (Versed) 2 mg STK-MED ONCE .ROUTE ; Start 07/20/16 at 14:15; Stop 07/20/16 at 14:16; Status DC Sodium Chloride 3 ml 3 ml QSHIFT PRN IV AFTER MEDS AND BLOOD DRAWS; Start at 14:45; Stop 07/29/16 at 13:51; Status DC Sodium Chloride (Iv Sodium Chloride 0.9% 1000ml Bag) 1,000 ml @ 60 mls/hr [id number] IV Last administered on 07/20/16 14:44; Start 07/20/16 at 14:44; Stop at 00:43; Status DC Metoprolol Tartrate (Lopressor) 12.5 mg BID PO ; Start 07/20/16 at 21:00; Stop at 21:00; Status DC Lisinopril (Prinivil) 5 mg DAILY PO Last administered on 07/20/16 16:25; Start 07/20/16 at 15:00; Stop 07/20/16 at 17:21; Status DC Atorvastatin Calcium (Lipitor) 20 mg QHS PO Last administered on 07/20/16 20:33 ; Start 07/20/16 at 21:00; Stop 07/21/16 at 08:11; Status DC Nitroglycerin (Nitrostat) 0.4 mg PRN Q5MIN PRN SL CHEST PAIN Last administered on 07/25/16 04:55; Start 07/20/16 at 14:45; Stop 07/26/16 at 11:41; Status DC Hydralazine HCl (Apresoline) 10 mg PRN Q4HRS PRN IVP ELEVATED BP, SEE COMMENTS Last administered on 07/31/16 10:58; Start 07/20/16 at 17:15; Stop 07/31/16 at 13:31; Status DC Metoprolol Tartrate (Lopressor) 50 mg BID PO Last administered on 07/22/16 08: 31; Start 07/20/16 at 21:00; Stop 07/22/16 at 19:03; Status DC Alprazolam (Xanax) 0.25 mg PRN Q8HRS PRN PO ANXIETY / AGITATION Last administered on 07/24/16 21:34; Start 07/20/16 at 17:30; Stop 07/29/16 at 13:38; Status DC Heparin Sodium (Porcine) 2050 unit 2,050 unit PRN Q6HRS PRN IV FOR UFH LEVEL LESS THAN 0.2 Last administered on 07/21/16 04:24; Start 07/20/16 at 19:45; Stop 07/26/16 at 08:55; Status DC Heparin Sodium/ Dextrose 500 ml @ 19.4 mls/hr CONT PRN IV SEE I/O RECORD; Start 07/20/16 at 19:45; Stop 07/21/16 at 16:24; Status DC Heparin Sodium (Porcine) (Heparin Sodium) 2,050 unit PRN Q6HRS PRN IV FOR UFH LEVEL LESS THAN 0.2; Start 07/20/16 at 19:45; Status UNV Atorvastatin Calcium (Lipitor) 40 mg QHS PO Last administered on 08/05/16 20: 32; Start 07/21/16 at 21:00 Iodixanol (Visipaque 320) 200 ml STK-MED ONCE .ROUTE ; Start 07/20/16 at 14:00; Stop 07/21/16 at 08:26; Status DC Zolpidem Tartrate (Ambien) 5 mg PRN QHS PRN PO INSOMNIA, MAY REPEAT IN 1HR; Start 07/21/16 at 15:30; Stop 07/29/16 at 13:38; Status DC Metoprolol Tartrate 25 mg 25 mg 1X ONCE PO ; Start 07/22/16 at 06:00; Stop at 06:02; Status DC Cefazolin Sodium/ Dextrose 50 ml @ 100 mls/hr 1X ONCE IV ; Start 07/22/16 at 06 :00; Stop 07/22/16 at 06:29; Status DC Heparin Sodium/ Dextrose 500 ml @ 0 mls/hr CONT PRN IV SEE I/O RECORD Last administered on 07/24/16 01:40; Start 07/21/16 at 16:30; Stop 07/26/16 at 08:55; Status DC Lidocaine HCl 2 ml 2 ml 1X PRN PRN ID IV START; Start 07/25/16 at 06:00; Stop 07/26/16 at 05:59; Status Cancel Lactated Ringer's (Iv Lactated Ringers) 1,000 ml @ 0 mls/hr Q0M IV Last administered on 07/25/16 07:30; Start 07/25/16 at 06:00; Stop 07/25/16 at 17:59 ; Status DC Fentanyl Citrate (Fentanyl 2ml Vial) 25 mcg PRN Q5MIN PRN IV Acute Pain; Start 07/22/16 at 09:15; Stop 07/23/16 at 09:14; Status DC Morphine Sulfate 2 mg PRN Q10MIN PRN IV Mild Pain; Start 07/22/16 at 09:15; Stop 07/23/16 at 09:14; Status DC Hydromorphone HCl (Dilaudid) 0.4 mg PRN Q10MIN PRN IV Moderate to severe pain; Start 07/22/16 at 09:15; Stop 07/23/16 at 09:14; Status DC Ondansetron HCl (Zofran) 4 mg PRN Q6HRS PRN IV Nausea, 1st Choice; Start at 09:15; Stop 07/23/16 at 09:14; Status DC Prochlorperazine Edisylate (Compazine) 5 mg PRN Q6HRS PRN IV Nausea/Vomiting, 2nd Choice; Start 07/22/16 at 09:15; Stop 07/23/16 at 09:14; Status DC Ondansetron HCl (Zofran) 4 mg PRN Q6HRS PRN IV NAUSEA/VOMITING; Start 07/25/16 at 07:00; Stop 07/26/16 at 06:59; Status DC Fentanyl Citrate (Fentanyl 2ml Vial) 25 mcg PRN Q5MIN PRN IV MILD PAIN; Start 07/25/16 at 07:00; Stop 07/26/16 at 06:59; Status DC Fentanyl Citrate (Fentanyl 2ml Vial) 50 mcg PRN Q5MIN PRN IV MODERATE PAIN; Start 07/25/16 at 07:00; Stop 07/26/16 at 06:59; Status DC Morphine Sulfate 1 mg 1 mg PRN Q10MIN PRN IV SEVERE PAIN; Start 07/25/16 at 07: 00; Stop 07/25/16 at 20:28; Status DC Lactated Ringer's (Iv Lactated Ringers) 1,000 ml @ 0 mls/hr Q0M IV ; Start 01/31 at 07:00; Stop 07/25/16 at 18:59; Status Cancel Lidocaine HCl 2 ml PRN 1X PRN ID PRIOR TO IV START Last administered on 07:16; Start 07/25/16 at 07:00; Stop 07/26/16 at 06:59; Status DC Hydromorphone HCl (Dilaudid) 0.5 mg PRN Q10MIN PRN IV SEV PAIN, Second choice; Start 07/25/16 at 07:00; Stop 07/26/16 at 06:59; Status DC Prochlorperazine Edisylate 5 mg 5 mg PACU PRN PRN IV NAUSEA, MRX1; Start at 07:00; Stop 07/26/16 at 06:59; Status DC Cefazolin Sodium/ Dextrose (Ancef 2gm Premix) 50 ml @ 100 mls/hr 1X ONCE IV Last administered on 07/25/16 08:12; Start 07/25/16 at 06:00; Stop 07/25/16 at 06:29; Status DC Metoprolol Tartrate (Lopressor) 25 mg 1X ONCE PO ; Start 07/25/16 at 06:00; Stop 07/25/16 at 06:00; Status DC Metoprolol Tartrate (Lopressor) 2.5 mg 1X ONCE IVP Last administered on 16:30; Start 07/22/16 at 16:30; Stop 07/22/16 at 16:31; Status DC Digoxin (Lanoxin) 250 mcg 1X ONCE IV ; Start 07/22/16 at 18:30; Stop 07/22/16 at 18:42; Status DC Digoxin (Lanoxin) 500 mcg 1X ONCE IV Last administered on 07/22/16 18:47; Start 07/22/16 at 18:45; Stop 07/22/16 at 18:46; Status DC Metoprolol Tartrate (Lopressor) 75 mg BID PO Last administered on 07/24/16 21: 30; Start 07/22/16 at 21:00; Stop 07/25/16 at 13:12; Status DC Nitroglycerin 0.4 mg 0.4 mg PRN Q5MIN PRN SL CHEST PAIN; Start 07/23/16 at 12:00 ; Status UNV Heparin Sodium (Porcine) 52279 unit/Lactated Ringer's 1,020 ml @ 1,020 mls/hr 1X PERIOP ONCE IRR Last administered on 07/25/16 08:46; Start 07/25/16 at 06: 00; Stop 07/25/16 at 06:59; Status DC Potassium Chloride 70 meq/ Sodium Bicarbonate 12.5 meq/Lidocaine HCl 24 ml/ Parenteral Electrolytes 571.5 ml @ 571.5 mls/ hr 1X PERIOP ONCE IRR ; Start at 06:00; Stop 07/25/16 at 06:59; Status DC Potassium Chloride/Sodium Bicarbonate/ Parenteral Electrolytes (Isolyte S) 520 ml @ 520 mls/hr 1X PERIOP ONCE IRR ; Start 07/25/16 at 06:00; Stop 07/25/16 at 06:59; Status DC Etomidate (Amidate) 20 mg STK-MED ONCE IV ; Start 07/25/16 at 06:08; Stop at 06:09; Status DC Phenylephrine HCl (-Synephrine Inj) 10 mg STK-MED ONCE .ROUTE ; Start at 06:08; Stop 07/25/16 at 06:09; Status DC Aminocaproic Acid (Amicar) 5,000 mg STK-MED ONCE IV ; Start 07/25/16 at 06:08; Stop 07/25/16 at 06:09; Status DC Heparin Sodium (Porcine) (Heparin Sodium) 10,000 unit STK-MED ONCE .ROUTE ; Start 07/25/16 at 06:10; Stop 07/25/16 at 06:11; Status DC Rocuronium [place] (Zemuron) 100 mg STK-MED ONCE .ROUTE ; Start 07/25/16 at 06: 11; Stop 07/25/16 at 06:12; Status DC Morphine Sulfate 4 mg STK-MED ONCE .ROUTE ; Start 07/25/16 at 06:59; Stop at 07:00; Status DC Morphine Sulfate 4 mg 4 mg 1X ONCE IV ; Start 07/25/16 at 07:15; Stop 07/25/16 at 07:16; Status DC Cefazolin Sodium/ Sodium Chloride (Ancef/Iv Sodium Chloride 0.9% 500ml Bag) 500 ml @ 500 mls/hr 1X PERIOP ONCE IRR Last administered on 07/25/16 08:46; Start 07/25/16 at 07:15; Stop 07/25/16 at 08:14; Status DC Cellulose 1 each STK-MED ONCE .ROUTE Last administered on 07/25/16 08:46; Start 07/25/16 at 07:07; Stop 07/25/16 at 07:08; Status DC Vancomycin HCl (Vanco) 10 gm STK-MED ONCE .ROUTE Last administered on 08:46; Start 07/25/16 at 07:07; Stop 07/25/16 at 07:08; Status DC Papaverine HCl 60 mg STK-MED ONCE .ROUTE Last administered on 07/25/16 08:46; Start 07/25/16 at 07:07; Stop 07/25/16 at 07:08; Status DC Aspirin (Aspirin) 300 mg STK-MED ONCE .ROUTE Last administered on 07/25/16 17: 25; Start 07/25/16 at 07:08; Stop 07/25/16 at 07:09; Status DC Sodium Chloride (Sodium Chloride) 50 ml STK-MED ONCE IJ Last administered on 08:46; Start 07/25/16 at 07:08; Stop 07/25/16 at 07:09; Status DC Midazolam HCl (Versed) 2 mg STK-MED ONCE .ROUTE ; Start 07/25/16 at 07:15; Stop 07/25/16 at 07:16; Status DC Ephedrine Sulfate 50 mg 50 mg STK-MED ONCE IV ; Start 07/25/16 at 07:16; Stop at 07:17; Status DC Nitroglycerin/ Dextrose (Nitroglycerin Drip) 250 ml @ As Directed STK-MED ONCE IV ; Start 07/25/16 at 07:16; Stop 07/25/16 at 07:17; Status DC Midazolam HCl (Versed) 2 mg STK-MED ONCE .ROUTE ; Start 07/25/16 at 07:18; Stop 07/25/16 at 07:19; Status DC Fentanyl Citrate (Fentanyl 2ml Vial) 100 mcg STK-MED ONCE .ROUTE ; Start at 07:19; Stop 07/25/16 at 07:20; Status DC Sufentanil Citrate (Sufenta) 100 mcg STK-MED ONCE .ROUTE ; Start 07/25/16 at 07: 19; Stop 07/25/16 at 07:20; Status DC Midazolam HCl (Versed) 2 mg 1X ONCE IV ; Start 07/25/16 at 08:00; Stop at 08:01; Status DC Dexamethasone Sodium Phosphate (Decadron) 20 mg STK-MED ONCE .ROUTE ; Start 01/31 at 07:58; Stop 07/25/16 at 07:59; Status DC Rocuronium [place] (Zemuron) 100 mg STK-MED ONCE .ROUTE ; Start 07/25/16 at 08: 52; Stop 07/25/16 at 08:53; Status DC Sufentanil Citrate (Sufenta) 100 mcg STK-MED ONCE .ROUTE ; Start 07/25/16 at 08: 53; Stop 07/25/16 at 08:54; Status DC Protamine Sulfate 250 mg STK-MED ONCE IV ; Start 07/25/16 at 10:43; Stop at 10:44; Status DC Rocuronium [place] 100 mg 100 mg STK-MED ONCE .ROUTE ; Start 07/25/16 at 10:52; Stop 07/25/16 at 10:53; Status DC Albumin Human 0 ml @ As Directed STK-MED ONCE IV ; Start 07/25/16 at 10:53; Stop 07/25/16 at 10:54; Status DC Amiodarone HCl/ Dextrose (Cordarone) 518 ml @ 34.53 mls/ hr 1X ONCE IV Last administered on 07/25/16t 18:52; Start 07/25/16 at 11:30; Stop 07/26/16 at 02:30 ; Status DC Sodium Bicarbonate 50 meq STK-MED ONCE .ROUTE ; Start 07/25/16 at 11:35; Stop at 11:36; Status DC Protamine Sulfate 50 mg STK-MED ONCE IV ; Start 07/25/16 at 12:31; Stop at 12:32; Status DC Amiodarone HCl (Cordarone) 150 mg STK-MED ONCE .ROUTE ; Start 07/25/16 at 12:37 ; Stop 07/25/16 at 12:38; Status DC Isoflurane (Isoflurane) 90 ml STK-MED ONCE IH ; Start 07/25/16 at 12:42; Stop at 12:43; Status DC Lidocaine HCl (Lidocaine HCl 2% Abboject) 100 mg STK-MED ONCE .ROUTE ; Start 01/31 at 13:07; Stop 07/25/16 at 13:08; Status DC Mannitol (Mannitol) 12.5 g STK-MED ONCE .ROUTE ; Start 07/25/16 at 13:07; Stop 07/25/16 at 13:08; Status DC Calcium Chloride 1,000 mg STK-MED ONCE IV ; Start 07/25/16 at 13:07; Stop at 13:08; Status DC Sodium Bicarbonate 50 meq 50 meq STK-MED ONCE .ROUTE ; Start 07/25/16 at 13:07; Stop 07/25/16 at 13:08; Status DC Albumin Human (Albuminar) 100 ml @ As Directed STK-MED ONCE IV ; Start at 13:07; Stop 07/25/16 at 13:08; Status DC Magnesium Sulfate 5 gm STK-MED ONCE .ROUTE ; Start 07/25/16 at 13:08; Stop 07/25 at 13:09; Status DC Heparin Sodium (Porcine) 33679 unit 30,000 unit STK-MED ONCE .ROUTE ; Start 01/31 at 13:08; Stop 07/25/16 at 13:09; Status DC Clevidipine (Cleviprex) 100 ml @ 0 mls/hr CONT PRN IV PER PROTOCOL; Start 07/25 at 13:45; Stop 07/26/16 at 11:29; Status DC Heparin Sodium (Porcine) 24582 unit 30,000 unit STK-MED ONCE .ROUTE ; Start 01/31 at 13:39; Stop 07/25/16 at 13:40; Status DC Epinephrine HCl/ Sodium Chloride (Adrenalin/Iv Sodium Chloride 0.9% 250ml) 254 ml @ 3.81 mls/hr CONT PRN IV SEE I/O RECORD; Start 07/25/16 at 13:45 Epinephrine HCl (Epinephrine Syringe) 1 mg STK-MED ONCE .ROUTE ; Start 07/25/16 at 13:52; Stop 07/25/16 at 13:53; Status DC Rocuronium [place] (Zemuron) 100 mg STK-MED ONCE .ROUTE ; Start 07/25/16 at 13: 57; Stop 07/25/16 at 13:58; Status DC Sodium Bicarbonate 50 meq 50 meq STK-MED ONCE .ROUTE ; Start 07/25/16 at 14:04; Stop 07/25/16 at 14:05; Status DC Procainamide HCl/ Dextrose (Pronestyl) 520 ml @ 15.6 mls/hr CONT PRN IV SEE I/ O RECORD; Start 07/25/16 at 14:30; Stop 07/28/16 at 15:22; Status DC Sodium Bicarbonate 50 meq STK-MED ONCE .ROUTE ; Start 07/25/16 at 14:31; Stop at 14:32; Status DC Sodium Bicarbonate 50 meq STK-MED ONCE .ROUTE ; Start 07/25/16 at 14:31; Stop at 14:32; Status DC Protamine Sulfate 50 mg STK-MED ONCE IV ; Start 07/25/16 at 15:13; Stop at 15:14; Status DC Protamine Sulfate 50 mg STK-MED ONCE IV ; Start 07/25/16 at 15:13; Stop at 15:14; Status DC Isoflurane 90 ml 90 ml STK-MED ONCE IH ; Start 07/25/16 at 15:13; Stop 07/25/16 at 15:14; Status DC Dobutamine HCl/ Dextrose 250 ml @ As Directed STK-MED ONCE IV ; Start 07/25/16 at 15:17; Stop 07/25/16 at 15:18; Status DC Iohexol 100 ml 100 ml STK-MED ONCE .ROUTE Last administered on 07/25/16t 15:39 ; Start 07/25/16 at 15:28; Stop 07/25/16 at 15:29; Status DC Norepinephrine Bitartrate 8 mg/ Sodium Chloride 258 ml @ 1.93 mls/hr 1X ONCE IV Last administered on 07/25/16 18:53; Start 07/25/16 at 16:00; Stop at 08:04; Status DC Albumin Human (Plasmanate) 1,000 ml @ As Directed STK-MED ONCE IV ; Start 07/25 at 16:11; Stop 07/25/16 at 16:12; Status DC Heparin Sodium (Porcine) (Heparin Sodium) 10,000 unit STK-MED ONCE .ROUTE ; Start 07/25/16 at 16:19; Stop 07/25/16 at 16:20; Status DC Lidocaine HCl (Lidocaine HCl 2% Abboject) 100 mg STK-MED ONCE .ROUTE ; Start 01/31 at 16:19; Stop 07/25/16 at 16:20; Status DC Mannitol (Mannitol) 12.5 g STK-MED ONCE .ROUTE ; Start 07/25/16 at 16:19; Stop 07/25/16 at 16:20; Status DC Calcium Chloride 1,000 mg STK-MED ONCE IV ; Start 07/25/16 at 16:19; Stop at 16:20; Status DC Sodium Bicarbonate 50 meq STK-MED ONCE .ROUTE ; Start 07/25/16 at 16:19; Stop at 16:20; Status DC Magnesium Sulfate 5 gm STK-MED ONCE .ROUTE ; Start 07/25/16 at 16:19; Stop 07/25 at 16:20; Status DC Heparin Sodium (Porcine) (Heparin Sodium) 10,000 unit STK-MED ONCE .ROUTE ; Start 07/25/16 at 16:20; Stop 07/25/16 at 16:21; Status DC Lidocaine HCl (Lidocaine HCl 2% Abboject) 100 mg STK-MED ONCE .ROUTE ; Start 01/31 at 16:20; Stop 07/25/16 at 16:21; Status DC Aminocaproic Acid (Amicar) 5,000 mg STK-MED ONCE IV ; Start 07/25/16 at 16:20; Stop 07/25/16 at 16:21; Status DC Mannitol (Mannitol) 12.5 g STK-MED ONCE .ROUTE ; Start 07/25/16 at 16:20; Stop 07/25/16 at 16:21; Status DC Sodium Bicarbonate 50 meq 50 meq STK-MED ONCE .ROUTE ; Start 07/25/16 at 16:20; Stop 07/25/16 at 16:21; Status DC Albumin Human (Albuminar) 100 ml @ As Directed STK-MED ONCE IV ; Start at 16:20; Stop 07/25/16 at 16:21; Status DC Rocuronium [place] (Zemuron) 50 mg STK-MED ONCE .ROUTE ; Start 07/25/16 at 16:33 ; Stop 07/25/16 at 16:34; Status DC Rocuronium [place] (Zemuron) 50 mg STK-MED ONCE .ROUTE ; Start 07/25/16 at 16:33 ; Stop 07/25/16 at 16:34; Status DC Protamine Sulfate 50 mg STK-MED ONCE IV ; Start 07/25/16 at 16:34; Stop at 16:35; Status DC Sodium Bicarbonate 50 meq STK-MED ONCE .ROUTE ; Start 07/25/16 at 16:36; Stop at 16:37; Status DC Calcium Chloride 1,000 mg STK-MED ONCE IV ; Start 07/25/16 at 16:41; Stop at 16:42; Status DC Epinephrine HCl (Epinephrine Syringe) 1 mg STK-MED ONCE .ROUTE ; Start 07/25/16 at 16:41; Stop 07/25/16 at 16:42; Status DC Sodium Bicarbonate 50 meq STK-MED ONCE .ROUTE ; Start 07/25/16 at 16:52; Stop at 16:53; Status DC Sodium Bicarbonate 50 meq STK-MED ONCE .ROUTE ; Start 07/25/16 at 16:52; Stop at 16:53; Status DC Sodium Bicarbonate 50 meq STK-MED ONCE .ROUTE ; Start 07/25/16 at 16:52; Stop at 16:53; Status DC Vasopressin (Vasostrict) 20 unit STK-MED ONCE .ROUTE ; Start 07/25/16 at 16:54; Stop 07/25/16 at 16:55; Status DC Famotidine (Pepcid) 20 mg STK-MED ONCE .ROUTE ; Start 07/25/16 at 16:56; Stop at 16:57; Status DC Dexamethasone Sodium Phosphate (Decadron) 20 mg STK-MED ONCE .ROUTE ; Start 01/31 at 16:56; Stop 07/25/16 at 16:57; Status DC Diphenhydramine HCl 50 mg 50 mg STK-MED ONCE .ROUTE ; Start 07/25/16 at 16:56; Stop 07/25/16 at 16:57; Status DC Vasopressin/ Dextrose (Vasostrict) 102 ml @ 6 mls/hr CONT PRN IV SEE I/O RECORD Last administered on 08/03/16 18:28; Start 07/25/16 at 17:15 Sodium Bicarbonate 50 meq STK-MED ONCE .ROUTE ; Start 07/25/16 at 17:24; Stop at 17:25; Status DC Sodium Bicarbonate 50 meq 50 meq STK-MED ONCE .ROUTE ; Start 07/25/16 at 17:24; Stop 07/25/16 at 17:25; Status DC Cefazolin Sodium/ Dextrose (Ancef 2gm Premix) 50 ml @ As Directed STK-MED ONCE IV ; Start 07/25/16 at 17:32; Stop 07/25/16 at 17:33; Status DC Sodium Chloride 3 ml 3 ml PRN Q12HR PRN IV AFTER MEDS AND BLOOD DRAWS; Start at 17:30; Stop 07/29/16 at 13:38; Status DC Lactated Ringer's 1,000 ml @ 15 mls/hr Q24H IV Last administered on 07/29/16t 16:45; Start 07/25/16 at 17:30; Stop 07/31/16 at 15:33; Status DC Insulin Human Regular/Sodium Chloride (Novolin R Vial/ Iv Normal Saline 150ml) 151.5 ml @ 0 mls/hr CONT PRN PRN IV SEE I/O RECORD Last administered on 03:03; Start 07/25/16 at 17:30; Stop 07/29/16 at 13:51; Status DC Dextrose 25 gm 25 gm PRN Q15MIN PRN IV LOW BLOOD SUGAR; Start 07/25/16 at 17:30 ; Stop 07/29/16 at 13:51; Status DC Dopamine HCl/ Dextrose 250 ml @ 0 mls/hr CONT PRN PRN IV SEE I/O RECORD; Start 07/25/16 at 17:30; Stop 07/26/16 at 11:41; Status DC Amiodarone HCl/ Dextrose (Cordarone) 518 ml @ 33.33 mls/ hr CONT PRN PRN IV SEE COMMENTS; Start 07/25/16 at 17:30; Status UNV Info 1 ea CONT PRN PRN MC SEE COMMENTS; Start 07/25/16 at 17:30; Stop 08/03/16 at 12:57; Status DC Info 1 ea 1 ea CONT PRN PRN MC SEE COMMENTS; Start 07/25/16 at 17:30 Magnesium Sulfate/ Dextrose (Magnesium Sulfate PREMIX 1GM) 100 ml @ 100 mls/hr PRN DAILY PRN IV FOR MAG < 2.2 Last administered on 07/27/16 10:59; Start 01/31 at 17:30 Famotidine (Pepcid) 20 mg BID IVP Last administered on 08/03/16 09:15; Start 07/25/16 at 21:00; Stop 08/03/16 at 15:28; Status DC Metoclopramide HCl (Reglan) 10 mg PRN Q6HRS PRN IV NAUSEA/VOMITING Last administered on 08/06/16 07:26; Start 07/25/16 at 17:30 Morphine Sulfate 2 mg PRN Q1HR PRN IV PAIN Last administered on 07/28/16 14:21 ; Start 07/25/16 at 17:30; Stop 07/29/16 at 13:38; Status DC Acetaminophen (Tylenol) 650 mg PRN Q4HRS PRN PO MILD PAIN / TEMP; Start at 17:30; Stop 07/29/16 at 13:38; Status DC Acetaminophen (Acetaminophen Supp) 650 mg PRN Q4HRS PRN [place] MILD PAIN / TEMP Last administered on 08/03/16 01:04; Start 07/25/16 at 17:30 Meperidine HCl 12.5 mg 12.5 mg PRN Q15MIN PRN IV SHIVERING; Start 07/25/16 at 17:30; Stop 07/29/16 at 13:38; Status DC Propofol (Diprivan) 100 ml @ 0 mls/hr CONT PRN PRN IV POSTOP SEDATION UNTIL EXTUBATE; Start 07/25/16 at 17:30; Stop 07/28/16 at 15:22; Status DC Aspirin (Ecotrin) 325 mg DAILYWBKFT PO Last administered on 07/29/16 09:54; Start 07/26/16 at 08:00; Stop 07/29/16 at 09:59; Status DC Aspirin (Aspirin) 300 mg PRN DAILY PRN [place] IF UNABLE TO TAKE PO; Start 07/25/16 at 17:30; Stop 07/26/16 at 12:00; Status DC Acetaminophen/ Hydrocodone Bitart (Lortab 5/325) 1 tab PRN Q4HRS PRN PO MILD PAIN; Start 07/25/16 at 17:30; Stop 08/03/16 at 12:24; Status DC Acetaminophen/ Hydrocodone Bitart 2 tab 2 tab PRN Q4HRS PRN PO MODERATE PAIN, SEVERE PAIN; Start 07/25/16 at 17:30; Stop 08/03/16 at 12:24; Status DC Cefazolin Sodium/ Dextrose 50 ml @ 100 mls/hr Q8H IV ; Start 07/25/16 at 18:00 ; Stop 07/25/16 at 21:42; Status DC Albumin Human 250 ml @ 62.5 mls/hr 1X ONCE IV Last administered on 07/27/16 17:52; Start 07/25/16 at 17:30; Stop 07/25/16 at 21:29; Status DC Midazolam HCl 100 ml @ As Directed STK-MED ONCE IV ; Start 07/25/16 at 18:06; Stop 07/25/16 at 18:07; Status DC Midazolam HCl 100 ml @ 0 mls/hr CONT PRN IV SEE I/O RECORD Last administered on 07/25/16 18:56; Start 07/25/16 at 18:15; Stop 07/26/16 at 08:59; Status DC Vancomycin HCl 1 gm/Sodium Chloride 250 ml @ 250 mls/hr 1X ONCE IV Last administered on 07/25/16 20:56; Start 07/25/16 at 18:15; Stop 07/25/16 at 19:14 ; Status DC Piperacillin Sod/ Tazobactam Sod/ Sodium Chloride (Zosyn/Iv Sodium Chloride 0.9 % 50ml) 50 ml @ 100 mls/hr Q6HRS IV Last administered on 07/31/16 05:32; Start 07/25/16 at 18:15; Stop 07/31/16 at 10:25; Status DC Midazolam HCl (Versed) 2 mg PRN Q20MIN PRN IV SEDATION; Start 07/25/16 at 18:15 ; Stop 07/25/16 at 18:39; Status DC Midazolam HCl 5 mg 5 mg PRN Q30MIN PRN IV SEDATION; Start 07/25/16 at 18:15; Stop 07/25/16 at 18:39; Status DC Vecuronium [place] 100 mg/ Dextrose 100 ml @ 0 mls/hr 1X ONCE IV Last administered on 07/25/16 19:43; Start 07/25/16 at 18:15; Stop 07/25/16 at 18:17 ; Status DC Midazolam HCl 100 ml @ 0 mls/hr CONT PRN IV SEE I/O RECORD Last administered on 07/28/16 19:40; Start 07/25/16 at 18:45 Dobutamine HCl/ Dextrose 250 ml @ 0 mls/hr CONT PRN IV SEE I/O RECORD Last administered on 07/29/16 03:10; Start 07/25/16 at 18:45; Stop 07/29/16 at 13:38 ; Status DC Potassium Chloride 50 ml @ 50 mls/hr Q1H IV Last administered on 07/25/16 22: 58; Start 07/25/16 at 21:00; Stop 07/25/16 at 23:59; Status DC Cefazolin Sodium/ Dextrose 50 ml @ 100 mls/hr Q8H IV Last administered on 07/27 05:34; Start 07/25/16 at 22:00; Stop 07/27/16 at 06:29; Status DC Heparin Sodium (Porcine) 03020 unit/Dextrose 512.5 ml @ 0 mls/hr Q0M ONCE IV Last administered on 07/25/16 22:21; Start 07/25/16 at 22:15; Stop 07/25/16 at 22:16; Status DC Vecuronium [place]/Dextrose (Norcuron) 100 ml @ 0 mls/hr CONT PRN IV SEE I/O RECORD Last administered on 07/26/16 01:07; Start 07/26/16 at 00:45; Stop 07/29 at 13:38; Status DC Dextrose 25 gm 25 gm 1X ONCE IV Last administered on 07/26/16 01:08; Start at 01:00; Stop 07/26/16 at 01:18; Status DC Amiodarone HCl/ Dextrose (Cordarone) 259 ml @ 17.26 mls/ hr CONT PRN IV SEE I/ O RECORD Last administered on 07/30/16 13:02; Start 07/26/16 at 06:45; Stop at 15:33; Status DC Cefazolin Sodium/ Dextrose 2 gm 2 gm STK-MED ONCE IV ; Start 07/25/16 at 11:00; Stop 07/26/16 at 08:53; Status DC Lactated Ringer's 500 ml @ 5,000 mls/hr PRN Q10MIN PRN IV CVP <14; Start 07/26 at 10:00; Stop 07/29/16 at 13:38; Status DC Fentanyl Citrate (Fentanyl 600 Mcg/30 ml [employer]OPER) 30 ml @ 0 mls/hr CONT PRN IV PROTOCOL Last administered on 07/31/16 09:12; Start 07/26/16 at 10:00; Stop at 13:31; Status DC Fentanyl Citrate (Fentanyl 2ml Vial) 25 mcg PRN Q1HR PRN IV COMM; Start at 10:00; Stop 07/29/16 at 13:38; Status DC Fentanyl Citrate (Fentanyl 2ml Vial) 50 mcg PRN Q1HR PRN IV COMM; Start at 10:00; Stop 07/29/16 at 13:38; Status DC Chlorhexidine Gluconate (Peridex) 15 ml BID MM Last administered on 08/06/16 07:26; Start 07/26/16 at 10:30 Sulfur Hexafluoride Microspheres (Lumason) 25 mg STK-MED ONCE IVP ; Start at 11:29; Stop 07/26/16 at 11:30; Status DC Aspirin 300 mg 300 mg DAILY [place] Last administered on 07/28/16 07:55; Start 03/03 at 12:00; Stop 07/29/16 at 19:10; Status DC Potassium Chloride (KCl Premix 20meq) 50 ml @ 50 mls/hr 1X ONCE IV Last administered on 07/26/16 12:55; Start 07/26/16 at 12:00; Stop 07/26/16 at 12:59 ; Status DC Sulfur Hexafluoride Microspheres (Lumason) 25 mg 1X ONCE IVP Last administered on 07/26/16 11:45; Start 07/26/16 at 11:45; Stop 07/26/16 at 11:50 ; Status DC Multi-Ingred Cream/Lotion/Oil/ Oint (Artificial Tears Eye Oint) 1 adri BID OU Last administered on 08/06/16 07:33; Start 07/26/16 at 21:00 Ondansetron HCl (Zofran) 4 mg PRN Q6HRS PRN IV NAUSEA/VOMITING; Start 07/27/16 at 07:00; Stop 07/28/16 at 06:59; Status DC Fentanyl Citrate (Fentanyl 2ml Vial) 25 mcg PRN Q5MIN PRN IV MILD PAIN; Start 07/27/16 at 07:00; Stop 07/28/16 at 06:59; Status DC Fentanyl Citrate (Fentanyl 2ml Vial) 50 mcg PRN Q5MIN PRN IV MODERATE PAIN; Start 07/27/16 at 07:00; Stop 07/28/16 at 06:59; Status DC Morphine Sulfate 1 mg 1 mg PRN Q10MIN PRN IV SEVERE PAIN; Start 07/27/16 at 07: 00; Stop 07/28/16 at 06:59; Status DC Lactated Ringer's (Iv Lactated Ringers) 1,000 ml @ 30 mls/hr Q24H IV Last administered on 07/26/16 17:25; Start 07/27/16 at 07:00; Stop 07/27/16 at 18:59 ; Status DC Lidocaine HCl 2 ml PRN 1X PRN ID PRIOR TO IV START; Start 07/27/16 at 07:00; Stop 07/28/16 at 06:59; Status DC Hydromorphone HCl (Dilaudid) 0.5 mg PRN Q10MIN PRN IV SEV PAIN, Second choice; Start 07/27/16 at 07:00; Stop 07/28/16 at 06:59; Status DC Prochlorperazine Edisylate 5 mg 5 mg PACU PRN PRN IV NAUSEA, MRX1; Start at 07:00; Stop 07/28/16 at 06:59; Status DC Heparin Sodium (Porcine) 87245 unit/Dextrose 512.5 ml @ 0 mls/hr Q0M ONCE IV Last administered on 07/26/16 19:40; Start 07/26/16 at 18:30; Stop 07/26/16 at 18:31; Status DC Amiodarone HCl 150 mg/Dextrose 103 ml @ 618 mls/hr 1X ONCE IV Last administered on 07/26/16 19:25; Start 07/26/16 at 19:15; Stop 07/26/16 at 19:24 ; Status DC Norepinephrine Bitartrate 8 mg/ Sodium Chloride 258 ml @ 1.93 mls/hr CONT PRN IV SEE I/O RECORD Last administered on 08/03/16 11:12; Start 07/26/16 at 19:15 Amiodarone HCl 900 mg/Dextrose 518 ml @ 0 mls/hr CONT PRN IV PER PROTOCOL; Start 07/26/16 at 19:15; Stop 07/27/16 at 12:11; Status DC Milrinone Lactate/ Dextrose 100 ml @ 0 mls/hr CONT PRN IV SEE I/O RECORD Last administered on 07/26/16 20:03; Start 07/26/16 at 19:45; Stop 07/29/16 at 13:51 ; Status DC Calcium Chloride/ Sodium Chloride (Iv Sodium Chloride 0.9% 100ml) 120 ml @ 240 mls/hr 1X ONCE IV Last administered on 07/26/16 21:04; Start 07/26/16 at 21: 30; Stop 07/26/16 at 21:59; Status DC Digoxin 500 mcg 500 mcg 1X ONCE IV Last administered on 07/26/16 21:55; Start 07/26/16 at 21:45; Stop 07/26/16 at 21:46; Status DC Cefazolin Sodium/ Sodium Chloride (Ancef/Iv Sodium Chloride 0.9% 500ml Bag) 500 ml @ 500 mls/hr 1X PERIOP ONCE IRR Last administered on 07/27/16 14:37; Start 07/27/16 at 10:00; Stop 07/27/16 at 10:59; Status DC Vancomycin HCl (Vanco) 10 gm 1X ONCE CEMENT Last administered on 07/27/16 14: 37; Start 07/27/16 at 12:30; Stop 07/27/16 at 12:31; Status DC Rocuronium [place] (Zemuron) 100 mg STK-MED ONCE .ROUTE ; Start 07/27/16 at 12: 32; Stop 07/27/16 at 12:33; Status DC Lorazepam (Ativan) 2 mg STK-MED ONCE .ROUTE ; Start 07/27/16 at 14:13; Stop 04/02 at 14:14; Status DC Phenylephrine HCl 1 mg 1 mg STK-MED ONCE IV ; Start 07/27/16 at 14:18; Stop 04/02 at 14:19; Status DC Albumin Human (Plasmanate) 250 ml @ 62.5 mls/hr 1X ONCE IV Last administered on 07/27/16 17:52; Start 07/27/16 at 17:15; Stop 07/27/16 at 21:14; Status DC Sodium Bicarbonate 50 meq STK-MED ONCE .ROUTE ; Start 07/27/16 at 17:39; Stop at 17:40; Status DC Sodium Bicarbonate 50 meq 1X ONCE IV Last administered on 07/27/16 17:51; Start 07/27/16 at 18:00; Stop 07/27/16 at 18:01; Status DC Sodium Bicarbonate 50 meq 1X ONCE IV Last administered on 07/27/16 17:52; Start 07/27/16 at 18:00; Stop 07/27/16 at 18:01; Status DC Fentanyl Citrate (Fentanyl 2ml Vial) 25 mcg PRN Q5MIN PRN IV MILD PAIN; Start 07/28/16 at 07:00; Stop 07/29/16 at 06:59; Status DC Fentanyl Citrate (Fentanyl 2ml Vial) 50 mcg PRN Q5MIN PRN IV MODERATE PAIN; Start 07/28/16 at 07:00; Stop 07/29/16 at 06:59; Status DC Morphine Sulfate 1 mg 1 mg PRN Q10MIN PRN IV SEVERE PAIN; Start 07/28/16 at 07: 00; Stop 07/29/16 at 06:59; Status DC Lactated Ringer's (Iv Lactated Ringers) 1,000 ml @ 30 mls/hr Q24H IV Last administered on 07/28/16 06:49; Start 07/28/16 at 06:49; Stop 07/28/16 at 18:48 ; Status DC Lidocaine HCl 2 ml PRN 1X PRN ID PRIOR TO IV START; Start 07/28/16 at 07:00; Stop 07/29/16 at 06:59; Status DC Hydromorphone HCl (Dilaudid) 0.5 mg PRN Q10MIN PRN IV SEV PAIN, Second choice; Start 07/28/16 at 07:00; Stop 07/29/16 at 06:59; Status DC Rocuronium [place] 50 mg 50 mg STK-MED ONCE .ROUTE ; Start 07/28/16 at 07:27; Stop 07/28/16 at 07:28; Status DC Cefazolin Sodium/ Sodium Chloride (Ancef/Iv Sodium Chloride 0.9% 500ml Bag) 500 ml @ 500 mls/hr 1X PERIOP ONCE IRR Last administered on 07/28/16 09:25; Start 07/28/16 at 08:00; Stop 07/28/16 at 08:59; Status DC Cellulose 1 each STK-MED ONCE .ROUTE ; Start 07/28/16 at 07:42; Stop 07/28/16 at 07:43; Status DC Bupivacaine HCl/ Epinephrine Bitart 50 ml 50 ml STK-MED ONCE .ROUTE ; Start at 07:42; Stop 07/28/16 at 07:43; Status DC Heparin Sodium (Porcine)/Sodium Chloride (Heparin Sodium/ Iv Sodium Chloride 0.9 % 500ml Bag) 505 ml @ 505 mls/hr 1X PERIOP ONCE IRR Last administered on 07/28 10:19; Start 07/28/16 at 08:15; Stop 07/28/16 at 09:14; Status DC Lorazepam 2 mg 2 mg STK-MED ONCE .ROUTE ; Start 07/28/16 at 08:29; Stop at 08:30; Status DC Magnesium Sulfate/ Dextrose (Magnesium Sulfate PREMIX 1GM) 100 ml @ 100 mls/hr 1X ONCE IV Last administered on 07/28/16t 13:09; Start 07/28/16 at 09:00; Stop 07/28/16 at 09:59; Status DC Vasopressin (Vasostrict) 20 unit STK-MED ONCE .ROUTE ; Start 07/28/16 at 09:03; Stop 07/28/16 at 09:04; Status DC Epinephrine HCl (Epinephrine Syringe) 1 mg STK-MED ONCE .ROUTE ; Start 07/28/16 at 09:09; Stop 07/28/16 at 09:10; Status DC Calcium Chloride 1,000 mg STK-MED ONCE IV ; Start 07/28/16 at 09:09; Stop at 09:10; Status DC Phenylephrine HCl 1 mg STK-MED ONCE IV ; Start 07/28/16 at 09:54; Stop 07/28/16 at 09:55; Status DC Sevoflurane 60 ml 60 ml STK-MED ONCE IH ; Start 07/28/16 at 09:54; Stop at 09:55; Status DC Epinephrine HCl/ Sodium Chloride (Adrenalin/Iv Sodium Chloride 0.9% 250ml) 254 ml @ 3.81 mls/hr 1X ONCE IV ; Start 07/28/16 at 10:00; Stop 07/29/16 at 19:10 ; Status DC Heparin Sodium (Porcine) 37374 unit 10,000 unit STK-MED ONCE .ROUTE ; Start at 09:57; Stop 07/28/16 at 09:58; Status DC Albumin Human (Plasmanate) 500 ml @ As Directed STK-MED ONCE IV ; Start at 09:57; Stop 07/28/16 at 09:58; Status DC Iohexol 100 ml 100 ml STK-MED ONCE .ROUTE ; Start 07/28/16 at 10:39; Stop at 10:40; Status DC Heparin Sodium/ Sodium Chloride 500 ml @ As Directed STK-MED ONCE .ROUTE ; Start 07/28/16 at 10:39; Stop 07/28/16 at 10:40; Status DC Iohexol 100 ml 100 ml STK-MED ONCE .ROUTE ; Start 07/28/16 at 10:43; Stop at 10:44; Status DC Heparin Sodium/ Sodium Chloride 500 ml @ As Directed STK-MED ONCE .ROUTE ; Start 07/28/16 at 11:21; Stop 07/28/16 at 11:22; Status DC Albuterol Sulfate (Ventolin Neb Soln) 2.5 mg RTQID NEB Last administered on 08:46; Start 07/28/16 at 12:00; Stop 07/30/16 at 17:05; Status DC Furosemide (Lasix) 40 mg 1X ONCE IVP Last administered on 07/28/16 13:16; Start 07/28/16 at 13:15; Stop 07/28/16 at 13:16; Status DC Furosemide (Lasix) 40 mg 1X ONCE IVP Last administered on 07/28/16 13:19; Start 07/28/16 at 14:00; Stop 07/28/16 at 14:01; Status DC Heparin Sodium/ Sodium Chloride 1000 unit 1,000 unit CONT PRN IV ART LINE FLUSH Last administered on 08/02/16 06:47; Start 07/28/16 at 14:45 Albumin Human 250 ml @ 62.5 mls/hr PRN Q1HR PRN IV SEE COMMENTS Last administered on 08/02/16 16:12; Start 07/28/16 at 15:15 Furosemide 100 mg/ Sodium Chloride 100 ml @ 5 mls/hr CONT PRN IV SEE I/O RECORD Last administered on 07/30/16 09:50; Start 07/28/16 at 15:30; Stop 07/31 at 13:31; Status DC Potassium Chloride 50 ml @ 50 mls/hr Q1H IV Last administered on 07/28/16 19: 39; Start 07/28/16 at 18:30; Stop 07/28/16 at 20:29; Status DC Potassium Chloride (KCl Premix 20meq) 50 ml @ 50 mls/hr Q1H IV Last administered on 07/29/16 09:36; Start 07/29/16 at 07:00; Stop 07/29/16 at 08:59 ; Status DC Lorazepam (Ativan) 2 mg STK-MED ONCE .ROUTE ; Start 07/28/16 at 08:30; Stop at 08:16; Status DC Aspirin (Arti Aspirin) 325 mg DAILYWBKFT PO Last administered on 08/06/16 07: 26; Start 07/30/16 at 08:00 Docusate Sodium 100 mg 100 mg DAILY PO Last administered on 07/31/16 07:59; Start 07/30/16 at 09:00; Stop 07/31/16 at 11:00; Status DC Dobutamine HCl/ Dextrose 250 ml @ 12.1 mls/hr CONT PRN IV PER PROTOCOL Last administered on 08/02/16 18:03; Start 07/29/16 at 13:30 Potassium Chloride 50 ml @ 50 mls/hr Q1H IV Last administered on 07/29/16 22: 39; Start 07/29/16 at 20:00; Stop 07/29/16 at 22:59; Status DC Potassium Chloride (KCl Premix 20meq) 50 ml @ 50 mls/hr Q1H IV Last administered on 07/30/16 09:19; Start 07/30/16 at 07:00; Stop 07/30/16 at 08:59 ; Status DC Ipratropium [place] (Atrovent) 0.5 mg RTQID NEB Last administered on 08/06/16 07:46; Start 07/30/16 at 12:30 Digoxin 500 mcg 500 mcg 1X ONCE IV Last administered on 07/30/16 13:01; Start 07/30/16 at 12:15; Stop 07/30/16 at 12:19; Status DC Dexmedetomidine HCl/Sodium Chloride (Precedex/Iv Sodium Chloride 0.9% 50ml) 50 ml @ 0 mls/hr CONT PRN IV PER PROTOCOL Last administered on 08/04/16 05:20; Start 07/30/16 at 13:30 Atropine Sulfate 0.5 mg PRN Q5MIN PRN IV SEE COMMENTS; Start 07/30/16 at 13:30 Amiodarone HCl (Cordarone) 400 mg ONCE ONCE PO Last administered on 07/30/16 15:01; Start 07/30/16 at 13:30; Stop 07/30/16 at 13:46; Status DC Amiodarone HCl (Cordarone) 400 mg BID PO Last administered on 08/06/16 07:27; Start 07/30/16 at 21:00 Digoxin 125 mcg 125 mcg DAILY IV Last administered on 08/02/16 08:56; Start at 09:00; Stop 08/03/16 at 14:27; Status DC Albumin Human (Albuminar) 50 ml @ 50 mls/hr 1X ONCE IV Last administered on 16:26; Start 07/30/16 at 16:30; Stop 07/30/16 at 17:29; Status DC Ibuprofen (Motrin) 200 mg PRN Q6HRS PRN PO fever; Start 07/30/16 at 19:45; Stop 08/01/16 at 12:22; Status DC Metoprolol Tartrate (Lopressor) 2.5 mg 1X ONCE IVP Last administered on 20:23; Start 07/30/16 at 20:30; Stop 07/30/16 at 20:31; Status DC Metoprolol Tartrate 5 mg 5 mg PRN Q2HR PRN IVP HYPERTENSION Last administered on 08/04/16 22:09; Start 07/30/16 at 22:30 Potassium Chloride (KCl Premix 20meq) 50 ml @ 50 mls/hr Q1H IV Last administered on 07/31/16 09:04; Start 07/31/16 at 07:00; Stop 07/31/16 at 08:59 ; Status DC Metoprolol Tartrate (Lopressor) 12.5 mg BID NG Last administered on 08/06/16 07:27; Start 07/31/16 at 10:00 Docusate Sodium (Colace Solution) 100 mg PRN DAILY PRN PO constipation Last administered on 08/01/16 08:40; Start 07/31/16 at 11:00 Hydralazine HCl (Apresoline) 10 mg PRN Q2HRS PRN IVP ELEVATED BP, SEE COMMENTS Last administered on 08/01/16 16:35; Start 07/31/16 at 13:30 Fentanyl Citrate (Fentanyl 2ml Vial) 50 mcg PRN Q2HR PRN IV PAIN Last administered on 08/02/16 12:57; Start 07/31/16 at 13:45 Furosemide (Lasix) 40 mg TID IVP Last administered on 08/02/16 05:49; Start at 14:00; Stop 08/02/16 at 15:33; Status DC Alteplase, Recombinant (Cathflo) 2 mg 1X ONCE INT CAT Last administered on 23:34; Start 07/31/16 at 23:15; Stop 07/31/16 at 23:16; Status DC Haloperidol Lactate (Haldol) 5 mg PRN Q6HRS PRN IVP MODERATE AGITATION Last administered on 08/01/16 21:21; Start 08/01/16 at 21:00 Haloperidol Lactate 10 mg 10 mg PRN Q6HRS PRN IVP SEVERE AGITATION Last administered on 08/05/16 20:35; Start 08/01/16 at 23:45 Propofol 100 ml @ 0 mls/hr CONT PRN IV SEE I/O RECORD Last administered on 08/02 11:43; Start 08/02/16 at 02:45 Piperacillin Sod/ Tazobactam Sod/ Sodium Chloride (Zosyn/Iv Sodium Chloride 0.9 % 50ml) 50 ml @ 100 mls/hr Q6HRS IV Last administered on 08/02/16 13:17; Start 08/02/16 at 12:00; Stop 08/02/16 at 15:43; Status DC Vancomycin HCl 1 each 1 each PRN DAILY PRN MC SEE COMMENTS Last administered on 08/02/16 13:20; Start 08/02/16 at 11:45; Stop 08/03/16 at 15:24; Status DC Vancomycin HCl 2 gm/Sodium Chloride 500 ml @ 250 mls/hr 1X ONCE IV Last administered on 08/02/16 11:52; Start 08/02/16 at 12:00; Stop 08/02/16 at 13:59 ; Status DC Sodium Chloride (Iv Sodium Chloride 0.9% 500ml Bag) 500 ml @ 500 mls/hr 1X ONCE IV Last administered on 08/02/16 12:39; Start 08/02/16 at 12:45; Stop at 13:44; Status DC Vecuronium [place] (Norcuron Bolus) 10 mg 1X STAT IV Last administered on 08/02 13:34; Start 08/02/16 at 13:17; Stop 08/02/16 at 13:23; Status DC Vancomycin HCl 1 each 1 each 1X ONCE MC ; Start 08/03/16 at 23:30; Stop at 23:30; Status DC Vancomycin HCl 1.25 gm/Sodium Chloride 250 ml @ 167 mls/hr Q12H IV Last administered on 08/03/16 00:33; Start 08/03/16 at 00:00; Stop 08/03/16 at 11:07 ; Status DC Fentanyl Citrate (Fentanyl 600 Mcg/30 ml [employer]) 30 ml @ 0 mls/hr CONT PRN PRN IV PROTOCOL Last administered on 08/06/16 02:18; Start 08/02/16 at 13:30 Naloxone HCl 0.4 mg 0.4 mg PRN Q2MIN PRN IV SEE INSTRUCTIONS; Start 08/02/16 at 13:30 Micafungin Sodium 100 mg/Dextrose 100 ml @ 100 mls/hr Q24H IV Last administered on 08/05/16 17:10; Start 08/02/16 at 17:00 Lactated Ringer's 1,000 ml @ 1,000 mls/hr 1X ONCE IV Last administered on 15:45; Start 08/02/16 at 15:45; Stop 08/02/16 at 16:44; Status DC Piperacillin Sod/ Tazobactam Sod 4.5 gm/Sodium Chloride 100 ml @ 200 mls/hr Q6HRS IV Last administered on 08/03/16 12:00; Start 08/02/16 at 18:00; Stop at 14:02; Status DC Albumin Human (Plasmanate) 500 ml @ 125 mls/hr 1X ONCE IV Last administered on 08/02/16 20:37; Start 08/02/16 at 20:30; Stop 08/03/16 at 00:29; Status DC Furosemide (Lasix) 40 mg 1X ONCE IVP Last administered on 08/03/16 00:16; Start 08/02/16 at 20:30; Stop 08/02/16 at 20:31; Status DC Acetaminophen (Tylenol) 650 mg 1X ONCE NG Last administered on 08/03/16 02:03 ; Start 08/03/16 at 02:15; Stop 08/03/16 at 02:16; Status DC Ketorolac Tromethamine 15 mg 15 mg 1X ONCE IV Last administered on 08/03/16 02:03; Start 08/03/16 at 02:15; Stop 08/03/16 at 02:16; Status DC Lactated Ringer's (Iv Lactated Ringers) 500 ml @ 500 mls/hr 1X ONCE IV Last administered on 08/03/16 10:15; Start 08/03/16 at 10:15; Stop 08/03/16 at 11:14 ; Status DC Sodium Bicarbonate 50 meq 1X ONCE IV Last administered on 08/03/16 10:44; Start 08/03/16 at 10:15; Stop 08/03/16 at 10:20; Status DC Calcium Gluconate 1000 mg 1,000 mg 1X ONCE IVP ; Start 08/03/16 at 12:15; Stop 08/03/16 at 12:16; Status DC Sodium Bicarbonate 150 meq/Dextrose/ Sodium Chloride 1,150 ml @ 100 mls/hr [id number] PRN IV .; Start 08/03/16 at 12:30; Stop 08/03/16 at 13:03; Status DC Magnesium Sulfate/ Dextrose 50 ml @ 25 mls/hr PRN DAILY PRN IV for Mag < 1.7 on am labs; Start 08/03/16 at 12:30 Sodium Bicarbonate 150 meq/Dextrose 1,150 ml @ 100 mls/hr [id number] IV Last administered on 08/04/16 04:31; Start 08/03/16 at 13:30; Stop 08/04/16 at 08:31 ; Status DC Calcium Chloride 2000 mg/Sodium Chloride 120 ml @ 240 mls/hr 1X ONCE IV Last administered on 08/03/16 13:30; Start 08/03/16 at 13:30; Stop 08/03/16 at 13:59 ; Status DC Piperacillin Sod/ Tazobactam Sod/ Sodium Chloride (Zosyn/Iv Sodium Chloride 0.9 % 50ml) 50 ml @ 100 mls/hr Q6HRS IV Last administered on 08/06/16 11:17; Start 08/03/16 at 18:00 Heparin Sodium (Porcine) (Heparin Sodium) 10,000 unit STK-MED ONCE .ROUTE ; Start 08/03/16 at 14:31; Stop 08/03/16 at 14:32; Status DC Lidocaine/Sodium Bicarbonate (Buffered Lidocaine 1%) 20 ml STK-MED ONCE IJ ; Start 08/03/16 at 14:31; Stop 08/03/16 at 14:32; Status DC Heparin Sodium/ Sodium Chloride 60 unit 1X ONCE IV Last administered on 16:17; Start 08/03/16 at 14:45; Stop 08/03/16 at 14:46; Status DC Heparin Sodium (Porcine) (Heparin Sodium) 2,500 unit 1X ONCE INT CAT Last administered on 08/03/16 16:16; Start 08/03/16 at 14:45; Stop 08/03/16 at 14:46 ; Status DC Lidocaine/Sodium Bicarbonate (Buffered Lidocaine 1%) 3 ml 1X ONCE IJ Last administered on 08/03/16 16:16; Start 08/03/16 at 14:45; Stop 08/03/16 at 14:46 ; Status DC Fentanyl Citrate (Fentanyl 2ml Vial) 25 mcg PRN Q5MIN PRN IV MILD PAIN; Start 08/04/16 at 07:00; Stop 08/05/16 at 06:59; Status DC Fentanyl Citrate (Fentanyl 2ml Vial) 50 mcg PRN Q5MIN PRN IV MODERATE PAIN; Start 08/04/16 at 07:00; Stop 08/05/16 at 06:59; Status DC Morphine Sulfate 1 mg 1 mg PRN Q10MIN PRN IV SEVERE PAIN; Start 08/04/16 at 07: 00; Stop 08/05/16 at 06:59; Status DC Lactated Ringer's (Iv Lactated Ringers) 1,000 ml @ 0 mls/hr Q0M IV ; Start at 07:00; Stop 08/04/16 at 18:59; Status DC Lidocaine HCl 2 ml PRN 1X PRN ID PRIOR TO IV START; Start 08/04/16 at 07:00; Stop 08/05/16 at 06:59; Status DC Hydromorphone HCl (Dilaudid) 0.5 mg PRN Q10MIN PRN IV SEV PAIN, Second choice; Start 08/04/16 at 07:00; Stop 08/05/16 at 06:59; Status DC Famotidine (Pepcid) 20 mg DAILY IVP Last administered on 08/05/16 07:43; Start 08/04/16 at 09:00; Stop 08/06/16 at 07:05; Status DC Insulin Aspart (Novolog) 0-7 UNITS TIDWMEALS SQ Last administered on 08/06/16 11:18; Start 08/03/16 at 19:00 Dextrose 12.5 gm 12.5 gm PRN Q15MIN PRN IV SEE COMMENTS; Start 08/03/16 at 18: 30 Sodium Chloride 1,000 ml @ 1,000 mls/hr Q1H PRN IV hypotension; Start 08/03/16 at 18:33; Stop 08/04/16 at 00:32; Status DC Sodium Chloride (Iv Sodium Chloride 0.9% 1000ml Bag) 1,000 ml @ 400 mls/hr Q2H30M PRN IV PATENCY; Start 08/03/16 at 18:33; Stop 08/04/16 at 06:32; Status DC Info 1 each 1 each PRN DAILY PRN MC SEE COMMENTS; Start 08/03/16 at 18:45; Stop 08/06/16 at 09:01; Status DC Sodium Chloride 1,000 ml @ 1,000 mls/hr Q1H PRN IV hypotension; Start 08/04/16 at 07:44; Stop 08/04/16 at 13:43; Status DC Albumin Human (Albuminar) 200 ml @ 200 mls/hr 1X PRN PRN IV Hypotension Last administered on 08/04/16 08:48; Start 08/04/16 at 07:45; Stop 08/04/16 at 13:44 ; Status DC Diphenhydramine HCl (Benadryl) 25 mg 1X PRN PRN IV ITCHING; Start 08/04/16 at 07:45; Stop 08/05/16 at 07:44; Status DC Diphenhydramine HCl (Benadryl) 25 mg 1X PRN PRN IV ITCHING; Start 08/04/16 at 07:45; Stop 08/05/16 at 07:44; Status DC Sodium Chloride (Normal Saline Flush) 10 ml 1X PRN PRN IV AP catheter pack; Start 08/04/16 at 07:45; Stop 08/05/16 at 07:44; Status DC Sodium Chloride 10 ml 10 ml 1X PRN PRN IV [employer] SUPERVISOR catheter pack; Start 08/04/16 at 07:45; Stop 08/05/16 at 07:44; Status DC Sodium Chloride (Iv Sodium Chloride 0.9% 1000ml Bag) 1,000 ml @ 400 mls/hr Q2H30M PRN IV PATENCY; Start 08/04/16 at 07:44; Stop 08/04/16 at 19:43; Status DC Info (PHARMACY MONITORING -- do not chart) 1 each PRN DAILY PRN MC SEE COMMENTS ; Start 08/04/16 at 07:45; Stop 08/06/16 at 09:02; Status DC Heparin Sodium (Porcine) 5,000 unit Q12HR SQ Last administered on 08/06/16 07: 29; Start 08/04/16 at 21:00 Sevelamer Carbonate 2.4 gm 2.4 gm BID FT Last administered on 08/06/16 07:27; Start 08/05/16 at 10:00 Sodium Chloride 1,000 ml @ 1,000 mls/hr Q1H PRN IV hypotension; Start 08/05/16 at 12:28; Stop 08/05/16 at 18:27; Status DC Albumin Human (Albuminar) 200 ml @ 200 mls/hr 1X PRN PRN IV Hypotension; Start 08/05/16 at 12:30; Stop 08/05/16 at 18:29; Status DC Sodium Chloride (Normal Saline Flush) 10 ml 1X PRN PRN IV AP catheter pack; Start 08/05/16 at 12:30; Stop 08/06/16 at 12:29 Sodium Chloride 10 ml 10 ml 1X PRN PRN IV [employer] SUPER[employer] catheter pack; Start 08/05/16 at 12:30; Stop 08/06/16 at 12:29 Sodium Chloride (Iv Sodium Chloride 0.9% 1000ml Bag) 1,000 ml @ 400 mls/hr Q2H30M PRN IV PATENCY; Start 08/05/16 at 12:28; Stop 08/06/16 at 00:27; Status DC Info 1 each 1 each PRN DAILY PRN MC SEE COMMENTS; Start 08/05/16 at 12:30 Propofol (Diprivan) 20 ml @ As Directed STK-MED ONCE IV ; Start 08/05/16 at 13: 01; Stop 08/05/16 at 13:02; Status DC Rocuronium [place] (Zemuron) 50 mg STK-MED ONCE .ROUTE ; Start 4/21/17 at 13:01 ; Stop 08/05/16 at 13:02; Status DC Dexamethasone Sodium Phosphate (Decadron) 20 mg STK-MED ONCE .ROUTE ; Start at 13:05; Stop 08/05/16 at 13:06; Status DC Famotidine (Pepcid) 20 mg STK-MED ONCE .ROUTE ; Start 08/05/16 at 13:05; Stop at 13:06; Status DC Ondansetron HCl (Zofran) 4 mg STK-MED ONCE .ROUTE ; Start 08/05/16 at 13:05; Stop 08/05/16 at 13:06; Status DC Midazolam HCl (Versed) 2 mg STK-MED ONCE .ROUTE ; Start 08/05/16 at 13:13; Stop 08/05/16 at 13:14; Status DC Vasopressin (Vasostrict) 20 unit STK-MED ONCE .ROUTE ; Start 08/05/16 at 13:58; Stop 08/05/16 at 13:59; Status DC Sodium Chloride (Sodium Chloride) 50 ml STK-MED ONCE IJ ; Start 08/05/16 at 13: 58; Stop 08/05/16 at 13:59; Status DC Sevoflurane (Ultane) 60 ml STK-MED ONCE IH ; Start 08/05/16 at 14:29; Stop 08/05 at 14:30; Status DC Alprazolam (Xanax) 0.25 mg PRN Q8HRS PRN PEG ANXIETY / AGITATION Last administered on 08/06/16 11:17; Start 08/05/16 at 14:45 Lidocaine HCl (Xylocaine-Mpf 1% Vial) 5 ml STK-MED ONCE INJ Last administered on 08/05/16 14:55; Start 08/05/16 at 14:55; Stop 08/05/16 at 15:11; Status DC Pantoprazole Sodium 40 mg 40 mg DAILYAC IVP Last administered on 08/06/16 07: 26; Start 08/06/16 at 07:30 Linezolid (Zyvox Premix) 300 ml @ 300 mls/hr Q12HR IV Last administered on 11:54; Start 08/06/16 at 11:30 Active Scripts Active Reported Amlodipine Besylate 5 Mg Tablet 5 Mg PO DAILY Pradaxa (Dabigatran Etexilate Mesylate) 150 Mg Capsule 1 Cap PO BID Metoprolol Succinate ( Xl ) (Metoprolol Succinate) 100 Mg Tab.er.24h 1 Tab PO DAILY Vitals/I & O Vital Sign - Last 24 Hours 08/05/16 08/05/16 08/05/16 08/05/16 13:00 15:30 15:45 16:00 Temp 97.8 97.8 Pulse 90 100 101 Resp 24 12 12 B/P 120/64 120/55 106/57 Pulse Ox 95 95 98 O2 Delivery Ventilator Ventilator Mechanical Ventilator Ventilator 08/05/16 08/05/16 08/05/16 08/05/16 16:00 16:30 17:00 18:00 Pulse 113 106 105 Resp 16 18 18 B/P 129/65 126/61 129/67 Pulse Ox 98 94 94 100 O2 Delivery Ventilator Ventilator Ventilator Ventilator 08/05/16 08/05/16 08/05/16 08/05/16 19:00 19:30 20:00 20:00 Temp 98.4 98.4 Pulse 100 100 100 Resp 12 15 B/P 138/66 152/74 Pulse Ox 96 94 O2 Delivery Ventilator Mechanical Ventilator Ventilator 08/05/16 08/05/16 08/05/16 08/05/16 20:23 20:33 20:34 21:00 Pulse 113 113 96 Resp 19 B/P 140/68 166/82 128/66 Pulse Ox 98 95 O2 Delivery Ventilator Ventilator 08/05/16 08/05/16 08/05/16 08/06/16 22:00 22:30 23:00 00:00 Pulse 90 83 83 Resp 18 25 B/P 122/65 127/59 Pulse Ox 93 93 97 O2 Delivery Ventilator Ventilator Ventilator 08/06/16 08/06/16 08/06/16 08/06/16 00:00 00:00 00:20 01:00 Temp 98.1 98.1 Pulse 83 108 Resp 25 15 B/P 144/66 134/60 Pulse Ox 98 96 99 O2 Delivery Mechanical Ventilator Ventilator Ventilator Ventilator 08/06/16 08/06/16 08/06/16 08/06/16 02:00 02:18 02:50 03:00 Pulse 78 83 Resp 16 25 15 16 B/P 156/76 110/75 Pulse Ox 99 96 96 98 O2 Delivery Ventilator Ventilator Ventilator Ventilator 08/06/16 08/06/16 08/06/16 08/06/16 03:15 04:00 04:00 04:00 Temp 97.6 97.6 Pulse 84 84 Resp 17 B/P 118/61 Pulse Ox 96 96 O2 Delivery Ventilator Mechanical Ventilator Ventilator 08/06/16 08/06/16 08/06/16 08/06/16 05:00 05:25 06:00 07:00 Pulse 97 78 94 Resp 15 15 12 B/P 114/64 114/61 129/62 Pulse Ox 99 99 98 99 O2 Delivery Ventilator Ventilator Ventilator Ventilator 08/06/16 08/06/16 08/06/16 08/06/16 07:27 07:27 07:50 08:00 Pulse 86 87 B/P 125/65 140/74 Pulse Ox 99 O2 Delivery Ventilator Mechanical Ventilator 08/06/16 08/06/16 08/06/16 08/06/16 08:00 08:00 08:05 09:00 Temp 98.7 98.7 Pulse 89 88 81 Resp 24 26 B/P 142/79 157/76 Pulse Ox 99 99 97 O2 Delivery Ventilator Ventilator Ventilator 08/06/16 08/06/16 10:00 11:00 Temp 98.4 98.4 Pulse 90 100 Resp 24 28 B/P 148/70 146/74 Pulse Ox 98 98 O2 Delivery Ventilator Ventilator Intake and Output 08/05/16 08/05/16 08/06/16 15:00 23:00 07:00 Intake Total 110 ml 171 ml 18 ml Output Total 30 ml 10 ml 30 ml Balance 80 ml 161 ml -12 ml MILA JEWELL MD Aug 06, 2016 12:21
[2016-08-06] MEDS ORDERED: IV NORMAL SALINE 1000ML BAG 1,000 ML IV PRN ×2 (13:17)
[2016-08-06] MEDS ORDERED: DIALYSIS PATIENT. MC PRN (13:30)
[2016-08-06] MEDS: MICAFUNGIN 100 MG in IV DEXTROSE 5% 100 ML IV SCH (17:00)
[2016-08-06] MEDS: ATORVASTATIN CALCIUM 40 MG TABLET. PO SCH (21:04)
[2016-08-06] MEDS: HALOPERIDOL LACTATE 5 MG/ML VIAL. IVP PRN (21:05)
[2016-08-07] VITALS (24 sets, daily range): BP systolic 90–149; BP diastolic 51–75
[2016-08-07] MEDS: PIPERACILLIN/TAZOBACTAM 2.25 GM in IV NORMAL SALINE 50ML 50 ML IV SCH ×5 (05:56→17:09)
[2016-08-07 05:58] LABS: ALBUMIN 2.4 g/dL (3.4-5.0); CALCIUM 7.9 mg/dL (8.5-10.1); CREATININE 3.3 mg/dL (0.7-1.3); GFR 19.4; PHOSPHORUS 6.3 mg/dL (2.6-4.7); POTASSIUM 4.2 mmol/L (3.5-5.1)
[2016-08-07] MEDS: PANTOPRAZOLE IV PUSH 40 MG VIAL. IVP SCH (07:24)
[2016-08-07] MEDS: METOPROLOL TART IMMED RELEASE 25 MG TABLET. NG SCH ×2 (07:25→21:06)
[2016-08-07] MEDS: AMIODARONE HCL 200 MG TABLET. PO SCH ×2 (07:25→21:05)
[2016-08-07] MEDS: CHLORHEXIDINE 0.12% 15 ML MOUTHWASH. MM SCH ×2 (07:26→21:06)
[2016-08-07] MEDS: ALPRAZolam 0.25 MG TABLET PEG PRN (07:26)
[2016-08-07] MEDS: HALOPERIDOL LACTATE 5 MG/ML VIAL. IVP PRN ×2 (07:26→21:04)
[2016-08-07] MEDS: ASPIRIN 325 MG TABLET PO SCH (07:26)
[2016-08-07] MEDS: METOCLOPRAMIDE HCL 10 MG/2 ML VIAL. IV PRN (07:26)
[2016-08-07] MEDS: MINERAL OIL/PETROLATUM,WHITE OPHTH OINT 3.5GM TUBE. OU SCH ×2 (07:26→21:06)
[2016-08-07] MEDS: SEVELAMER CARBONATE 2.4 GM PACKET. FT SCH ×2 (07:26→21:04)
[2016-08-07] MEDS: INSULIN ASPART 300 UNITS/3 ML INSULN.PEN SQ SCH ×3 (07:44→16:37)
[2016-08-07] MEDS: HEPARIN PF for SUB-Q USE 5,000 UNIT/0.5 ML VIAL. SQ SCH ×2 (07:45→21:07)
[2016-08-07] MEDS: IPRATROPIUM BROMIDE 0.5 MG/2.5 ML NEBU. NEB SCH ×4 (08:42→20:08)
--- NOTE | 2016-08-07 08:46 | PDOC ---
Infectious Disease Note Subjective Subjective Slept for about 30 miniutes last night. + anxiety Denies SOA, upset stomach, pain No fever Tube feedings ROS ROS Limited Vital Sign Vital Signs Vital Signs Date Time Temp Pulse Resp B/P Pulse Ox O2 Delivery O2 Flow Rate FiO2 08/07/16 08:00 Mechanical Ventilator 08/07/16 08:00 98.6 77 22 116/59 99 98.6 Physical Exam PHYSICAL EXAM GENERAL: Awake, tense, calm, in chiar HEENT: PERRL, Icteric. Oral mucosa dry NECK: Trach/vent. FiO2 40% LUNGS: Clear anteriorly HEART: S1S2 ABD: Mildly distended, BS present, soft, NT. PEG intact : Tesfaye EXT: Generalized edema 1+. No cyanosis WEAVER HAND: Awake, nods to few questions, weak SKIN: No rash, Jaundice. Sternal and left leg incision well-approximate. no redness RUE PICC clean RIJ temp HD cath 08/03). clean LUE art-line. clean Labs Lab Laboratory Tests Test 08/06/16 11:08 08/06/16 16:57 08/06/16 23:34 08/07/16 05:00 Glucose (Fingerstick) 159mg/dL (70-99) 158mg/dL (70-99) 195mg/dL (70-99) Sodium Level 143mmol/L (136-145) Potassium Level 4.2mmol/L (3.5-5.1) Chloride Level 102mmol/L (98-107) Carbon Dioxide Level 29mmol/L (21-32) Anion Gap 12 (6-14) Blood Urea Nitrogen 75mg/dL (8-26) Creatinine 3.3mg/dL (0.7-1.3) Estimated GFR (Cockcroft-Gault) 19.4 Glucose Level 165mg/dL (70-99) Calcium Level 7.9mg/dL (8.5-10.1) Phosphorus Level 6.3mg/dL (2.6-4.7) Albumin 2.4g/dL (3.4-5.0) Micro BLOOD CULTURE Preliminary NO GROWTH AFTER 4 DAYS Objective Assessment ? sepsis. Elevated Procalcitonin - renal failure playing into it Fever -? ID vs WEAVER HAND bleed vs sinusitis, etc - improved Perihepatic fluid on CT abd/pelvis JAKE - s/p HD Sinusitis CT 4/17 Resp failure. s/p tracheostomy, 08/05 Enterobacter and MRSA in sputum. 08/03 s/p PEG placement. 08/05 Cardiogenic shock Severe three-vessel coronary artery disease -s/p CABG 3 and placement of left ventricular assist device (Impella 3.0). -s/p mediastinal washout and closure of sternotomy. 07/[address] elevation myocardial infarction. on amiodarone S/p Left external iliac artery subtotal occlusion, angioplasty, removal of a Impella CP percutaneous left ventricular assist device. Primary repair of common femoral artery. 07/28 Small extra-axial fluid collection posteriorly near the right hemispheric vertex consistent with a small area of bleeding CT head 08/01 - stable on recent CT Severe ischemic cardiomyopathy A-fib Thrombocytopenia Plan Plan of Care Cont Zyvox, Zosyn and Micafungin. Monitor labs May need further eval of perihepatic fluid if worsens but may dissipate with fluid control Contact isolation Critically ill but better Patient seen and examined. Chart reviewed. Case d/w DATA ASSISTANT. Agree with above plan LAUREN ROLLINS APRN Aug 07, 2016 08:46 LANA HESS MD Aug 07, 2016 15:34
--- NOTE | 2016-08-07 10:03 | PDOC ---
Renal-Progress Notes Subjective Notes Notes SITTING UP IN CHAIR History of Present Illness Hx of present illness STABLE Vitals Vitals Vital Signs Date Time Temp Pulse Resp B/P Pulse Ox O2 Delivery O2 Flow Rate FiO2 08/07/16 10:00 80 25 125/51 99 Ventilator 08/07/16 08:00 98.6 98.6 Weight Weight [ ] Stability Assess. Stability Assess.: unstable for transfer (Intesive V. sign monit. req) I.O. Intake and Output Intake and Output 08/07/16 07:00 Intake Total 1709 ml Output Total 112 ml Balance 1597 ml IV Total 369 ml Tube Feeding 1020 ml Other 320 ml Output Urine Total 112 ml Labs Labs Laboratory Tests Test 08/06/16 11:08 08/06/16 16:57 08/06/16 23:34 08/07/16 05:00 Glucose (Fingerstick) 159mg/dL (70-99) 158mg/dL (70-99) 195mg/dL (70-99) Sodium Level 143mmol/L (136-145) Potassium Level 4.2mmol/L (3.5-5.1) Chloride Level 102mmol/L (98-107) Carbon Dioxide Level 29mmol/L (21-32) Anion Gap 12 (6-14) Blood Urea Nitrogen 75mg/dL (8-26) Creatinine 3.3mg/dL (0.7-1.3) Estimated GFR (Cockcroft-Gault) 19.4 Glucose Level 165mg/dL (70-99) Calcium Level 7.9mg/dL (8.5-10.1) Phosphorus Level 6.3mg/dL (2.6-4.7) Albumin 2.4g/dL (3.4-5.0) Micro Micro Microbiology 08/02/16 Blood Culture - Preliminary, Resulted NO GROWTH AFTER 4 DAYS 08/03/16 Sputum Culture - Final, Complete 08/03/16 Sputum Result 1 - Final, Complete 08/03/16 Sputum Result 2 - Final, Complete 08/03/16 Antimicrobic Susceptibility - Final, Complete 08/02/16 Urine Culture - Final, Complete 08/02/16 Urine Culture Result 1 (MILEY) - Final, Complete 08/03/16 Gram Stain - Final, Complete Case Discussion Case Discussed with: Family, Other (RN) Continued Hospitalization Reason for continued Hospitali: IVABX, abnormal labs Physical Exam General Appearance: no apparent distress Skin: warm Respiratory: bilateral CTA Heart: S1S2 Abdomen: soft, bowel sounds present Extremities: pulses present Neurology: alert, other (awake) Assessment Assessment IMP RESP FAILURE JAKE-ANURIA CAD-S/P CABG S/P TRACH AND PEG PLAN VENT WEANING CONT WITH TF HD TOMORROW UPDATED AT BEDSIDE JORDI MORTON MD Aug 07, 2016 10:03
--- NOTE | 2016-08-07 10:32 | PDOC ---
PULMONARY PROGRESS NOTES Subjective s/p trach 08/05 awake, off sedation Vitals Vital Signs Date Time Temp Pulse Resp B/P Pulse Ox O2 Delivery O2 Flow Rate FiO2 08/07/16 10:00 80 25 125/51 99 Ventilator 08/07/16 08:00 98.6 98.6 General: Alert HEENT: Other (nc at perrl orally intubated nose clease. neck, no lap thyromegaly) Lungs: Other (decrease bs) Cardiovascular: Other (tachy) Abdomen: Soft, Non-tender, Other Extremities: Other (jaundice) Skin: Warm Labs Laboratory Tests Test 08/05/16 12:01 08/05/16 17:07 08/05/16 23:45 08/06/16 05:40 Glucose (Fingerstick) 115mg/dL (70-99) 147mg/dL (70-99) 156mg/dL (70-99) White Blood Count 7.1x10^3/uL (4.0-11.0) Red Blood Count 2.50x10^6/uL (4.30-5.70) Hemoglobin 8.0g/dL (13.0-17.5) Hematocrit 23.7% (39.0-53.0) Mean Corpuscular Volume 95fL (79-100) Mean Corpuscular Hemoglobin 32pg (25-35) Mean Corpuscular Hemoglobin Concent 34g/dL (31-37) Red Cell Distribution Width 16.3% (11.5-14.5) Platelet Count 92x10^3/uL (140-400) Neutrophils (%) (Auto) 94% (31-73) Lymphocytes (%) (Auto) 2% (24-48) Monocytes (%) (Auto) 4% (0-9) Eosinophils (%) (Auto) 0% (0-3) Basophils (%) (Auto) 0% (0-3) Neutrophils # (Auto) 6.6x10^3uL (1.8-7.7) Lymphocytes # (Auto) 0.2x10^3/uL (1.0-4.8) Monocytes # (Auto) 0.3x10^3/uL (0.0-1.1) Eosinophils # (Auto) 0.0x10^3/uL (0.0-0.7) Basophils # (Auto) 0.0x10^3/uL (0.0-0.2) Sodium Level 143mmol/L (136-145) Potassium Level 5.2mmol/L (3.5-5.1) Chloride Level 104mmol/L (98-107) Carbon Dioxide Level 28mmol/L (21-32) Anion Gap 11 (6-14) Blood Urea Nitrogen 70mg/dL (8-26) Creatinine 3.3mg/dL (0.7-1.3) Estimated GFR (Cockcroft-Gault) 19.4 Glucose Level 154mg/dL (70-99) Calcium Level 7.8mg/dL (8.5-10.1) Phosphorus Level 7.9mg/dL (2.6-4.7) Total Bilirubin 3.9mg/dL (0.2-1.0) Direct Bilirubin 3.0mg/dL (0.0-0.2) Aspartate Amino Transf (AST/SGOT) 42U/L (15-37) Alanine Aminotransferase (ALT/SGPT) 75U/L (16-63) Alkaline Phosphatase 76U/L (46-116) Total Protein 5.9g/dL (6.4-8.2) Albumin 2.4g/dL (3.4-5.0) Test 08/06/16 08:00 08/06/16 11:08 08/06/16 16:57 08/06/16 23:34 O2 Saturation 96% (92-99) Arterial Blood pH 7.39 (7.35-7.45) Arterial Blood pCO2 at Patient Temp 39mmHg (35-46) Arterial Blood pO2 at Patient Temp 91mmHg (75-108) Arterial Blood HCO3 23mmol/L (21-28) Arterial Blood Base Excess -2mmol/L (-3-3) FiO2 40 Glucose (Fingerstick) 159mg/dL (70-99) 158mg/dL (70-99) 195mg/dL (70-99) Test 08/07/16 05:00 Sodium Level 143mmol/L (136-145) Potassium Level 4.2mmol/L (3.5-5.1) Chloride Level 102mmol/L (98-107) Carbon Dioxide Level 29mmol/L (21-32) Anion Gap 12 (6-14) Blood Urea Nitrogen 75mg/dL (8-26) Creatinine 3.3mg/dL (0.7-1.3) Estimated GFR (Cockcroft-Gault) 19.4 Glucose Level 165mg/dL (70-99) Calcium Level 7.9mg/dL (8.5-10.1) Phosphorus Level 6.3mg/dL (2.6-4.7) Albumin 2.4g/dL (3.4-5.0) Laboratory Tests Test 08/06/16 11:08 08/06/16 16:57 08/06/16 23:34 08/07/16 05:00 Glucose (Fingerstick) 159mg/dL (70-99) 158mg/dL (70-99) 195mg/dL (70-99) Sodium Level 143mmol/L (136-145) Potassium Level 4.2mmol/L (3.5-5.1) Chloride Level 102mmol/L (98-107) Carbon Dioxide Level 29mmol/L (21-32) Anion Gap 12 (6-14) Blood Urea Nitrogen 75mg/dL (8-26) Creatinine 3.3mg/dL (0.7-1.3) Estimated GFR (Cockcroft-Gault) 19.4 Glucose Level 165mg/dL (70-99) Calcium Level 7.9mg/dL (8.5-10.1) Phosphorus Level 6.3mg/dL (2.6-4.7) Albumin 2.4g/dL (3.4-5.0) Medications Active Scripts Medications Dose Route/Sig Days Date Category Amlodipine Besylate 5 Mg Tablet 5 Mg PO DAILY 07/20/16 Reported Pradaxa (Dabigatran Etexilate Mesylate) 150 Mg Capsule 1 Cap PO BID 07/20/16 Reported Metoprolol Succinate ( Xl ) (Metoprolol Succinate) 100 Mg Tab.er.24h 1 Tab PO DAILY 07/20/16 Reported Comments cxr reviewed,08/06 small LLL effusion Impression . 1. Expected respiratory failure, status post coronary artery bypass grafting. 2. Cardiogenic shock. followed by septic shock, improved 3. Early post-myocardial infarction complicated with ventricular fibrillation , s/p multiple shocks. 4. Status post implantation of Impella from mechanical circulating support. 5. 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 6. Tobacco use in remission. Spirometry revealed an FEV1, which was 3.2 liters preoperatively. 7. Nutrition, currently on tube feeding. 8. History of hypertension. 9. Severe cardiomyopathy ejection fraction 25%. 10. Peripheral artery disease. 11. Atrial fibrillation. 12. Encephalopathy multifactorial (hepatic, metabolic), improved 13. High grade fever, sepsis, ? source, less likely lungs.ct chest reviewed. responding to antibiotics 14. Abnormal LFT due to sepsis, improving 15. renal failure , on HD Plan . 1. s/p trach 08/05 1. CPAP trial again today, may do T-collar today 2. Continue nutritional support with tube feeding. 3. off pressors, Pt does not tolerate dobutamine(increase HR) 4. HD 5. Continue BS empiric antibiotics. 6. repeat LFT improving d/w MICHAEL SIEGEL MD Aug 07, 2016 10:32
--- NOTE | 2016-08-07 12:10 | PDOC ---
PROGRESS NOTES Chief Complaint Chief Complaint Chest pain STEMI 1. STEMI: 3-vessel dz by cardiac cath (07/20/16). s/p CABG on 07/25/2016 : FLETCHER to LAD; SVG to LAD; SVG to OM1 and SVG to RPDA. VF arrest after chest closed; reopened and placed back on bypass then converted to LVAD. chest closed yesterday 2. cardiogenic shock 3. PAD 4. Cardiomyopathy: EF 20% 5. Afib: on amiodarone and metoprolol. off dig 6. HTN 7. metabolic encephalopathy with 2, better 08/04 8. HLD: on statin, currently on hold 9. DM: on insulin gtt 10: Nutrition: cautious NG feed today 11. liver shock with 2 12. MILD ICH, no intervention 13. possible septic shock 14. JAKE, with 2,. ATN poor prognosis, cont current meds fu with CT, card, pulm, neurosx trach PEG 08/05, wean trial dvt, gi ppx off levaphed and vasopressin, keep MAP >65 lasix dced as per CT ON iv abx as per CT, fu ucx, bcx head CT, chest/abd/pelvis CT showed PNA HD since 08/03 cont supportive care, may need LTAC next week History of Present Illness History of Present Illness intubated, off sedation , mental better 08/04, open eyes, follow commands by squeezing hands tachycardia, afib, off dobutamine low bp , on levaphod and vaso since 08/02, off 08/05 Trach , PEG 08/05 EF 20% Head CT 08/01 showed mild ICH better WBC higher Cr on HD now MRSA sputum Vitals Vitals Vital Signs Date Time Temp Pulse Resp B/P Pulse Ox O2 Delivery O2 Flow Rate FiO2 08/07/16 11:17 100 T-Tube 10.0 08/07/16 11:00 78 30 118/54 08/07/16 08:00 98.6 98.6 Physical Exam Physical Exam GENERAL: Intubated, 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 HEENT: Pupils reactive, scleral icterus improving NECK: Supple LUNGS: Clear HEART: S1S2 CHEST: sternotomy: D/C/I ABD: Soft, NT EXT: edema improved, warm well perfused, pedal pulses palpable 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: 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,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 SKIN: No rash IV: ok General: Other (sedated, intubated, moving head) Heart: Other (tachy, irregular) Lungs: Other (decrease bs) Abdomen: Soft, Other (distended) Extremities: No edema, Other (+ edema x4) Skin: No rashes Labs LABS Laboratory Tests Test 08/06/16 16:57 08/06/16 23:34 08/07/16 05:00 08/07/16 11:35 Glucose (Fingerstick) 158mg/dL (70-99) 195mg/dL (70-99) 184mg/dL (70-99) Sodium Level 143mmol/L (136-145) Potassium Level 4.2mmol/L (3.5-5.1) Chloride Level 102mmol/L (98-107) Carbon Dioxide Level 29mmol/L (21-32) Anion Gap 12 (6-14) Blood Urea Nitrogen 75mg/dL (8-26) Creatinine 3.3mg/dL (0.7-1.3) Estimated GFR (Cockcroft-Gault) 19.4 Glucose Level 165mg/dL (70-99) Calcium Level 7.9mg/dL (8.5-10.1) Phosphorus Level 6.3mg/dL (2.6-4.7) Albumin 2.4g/dL (3.4-5.0) Review of Systems Review of Systems no fever, chills, Assessment and Plan Assessmemt and Plan Problems Medical Problems: (1) CAD (coronary artery disease), [place] coronary artery Status: Acute (2) Chest pain Status: Acute (3) STEMI (ST elevation myocardial infarction) Status: Acute Problems: Comment Review of Relevant I have reviewed the following items leonidas (where applicable) has been applied. Labs Laboratory Tests Test 08/05/16 17:07 08/05/16 23:45 08/06/16 05:40 08/06/16 08:00 Glucose (Fingerstick) 147mg/dL (70-99) 156mg/dL (70-99) White Blood Count 7.1x10^3/uL (4.0-11.0) Red Blood Count 2.50x10^6/uL (4.30-5.70) Hemoglobin 8.0g/dL (13.0-17.5) Hematocrit 23.7% (39.0-53.0) Mean Corpuscular Volume 95fL (79-100) Mean Corpuscular Hemoglobin 32pg (25-35) Mean Corpuscular Hemoglobin Concent 34g/dL (31-37) Red Cell Distribution Width 16.3% (11.5-14.5) Platelet Count 92x10^3/uL (140-400) Neutrophils (%) (Auto) 94% (31-73) Lymphocytes (%) (Auto) 2% (24-48) Monocytes (%) (Auto) 4% (0-9) Eosinophils (%) (Auto) 0% (0-3) Basophils (%) (Auto) 0% (0-3) Neutrophils # (Auto) 6.6x10^3uL (1.8-7.7) Lymphocytes # (Auto) 0.2x10^3/uL (1.0-4.8) Monocytes # (Auto) 0.3x10^3/uL (0.0-1.1) Eosinophils # (Auto) 0.0x10^3/uL (0.0-0.7) Basophils # (Auto) 0.0x10^3/uL (0.0-0.2) Sodium Level 143mmol/L (136-145) Potassium Level 5.2mmol/L (3.5-5.1) Chloride Level 104mmol/L (98-107) Carbon Dioxide Level 28mmol/L (21-32) Anion Gap 11 (6-14) Blood Urea Nitrogen 70mg/dL (8-26) Creatinine 3.3mg/dL (0.7-1.3) Estimated GFR (Cockcroft-Gault) 19.4 Glucose Level 154mg/dL (70-99) Calcium Level 7.8mg/dL (8.5-10.1) Phosphorus Level 7.9mg/dL (2.6-4.7) Total Bilirubin 3.9mg/dL (0.2-1.0) Direct Bilirubin 3.0mg/dL (0.0-0.2) Aspartate Amino Transf (AST/SGOT) 42U/L (15-37) Alanine Aminotransferase (ALT/SGPT) 75U/L (16-63) Alkaline Phosphatase 76U/L (46-116) Total Protein 5.9g/dL (6.4-8.2) Albumin 2.4g/dL (3.4-5.0) O2 Saturation 96% (92-99) Arterial Blood pH 7.39 (7.35-7.45) Arterial Blood pCO2 at Patient Temp 39mmHg (35-46) Arterial Blood pO2 at Patient Temp 91mmHg (75-108) Arterial Blood HCO3 23mmol/L (21-28) Arterial Blood Base Excess -2mmol/L (-3-3) FiO2 40 Test 08/06/16 11:08 08/06/16 16:57 08/06/16 23:34 08/07/16 05:00 Glucose (Fingerstick) 159mg/dL (70-99) 158mg/dL (70-99) 195mg/dL (70-99) Sodium Level 143mmol/L (136-145) Potassium Level 4.2mmol/L (3.5-5.1) Chloride Level 102mmol/L (98-107) Carbon Dioxide Level 29mmol/L (21-32) Anion Gap 12 (6-14) Blood Urea Nitrogen 75mg/dL (8-26) Creatinine 3.3mg/dL (0.7-1.3) Estimated GFR (Cockcroft-Gault) 19.4 Glucose Level 165mg/dL (70-99) Calcium Level 7.9mg/dL (8.5-10.1) Phosphorus Level 6.3mg/dL (2.6-4.7) Albumin 2.4g/dL (3.4-5.0) Test 08/07/16 11:35 Glucose (Fingerstick) 184mg/dL (70-99) Laboratory Tests Test 08/06/16 16:57 08/06/16 23:34 08/07/16 05:00 08/07/16 11:35 Glucose (Fingerstick) 158mg/dL (70-99) 195mg/dL (70-99) 184mg/dL (70-99) Sodium Level 143mmol/L (136-145) Potassium Level 4.2mmol/L (3.5-5.1) Chloride Level 102mmol/L (98-107) Carbon Dioxide Level 29mmol/L (21-32) Anion Gap 12 (6-14) Blood Urea Nitrogen 75mg/dL (8-26) Creatinine 3.3mg/dL (0.7-1.3) Estimated GFR (Cockcroft-Gault) 19.4 Glucose Level 165mg/dL (70-99) Calcium Level 7.9mg/dL (8.5-10.1) Phosphorus Level 6.3mg/dL (2.6-4.7) Albumin 2.4g/dL (3.4-5.0) Microbiology 08/02/16 Blood Culture - Preliminary, Resulted NO GROWTH AFTER 4 DAYS 08/03/16 Sputum Culture - Final, Complete 08/03/16 Sputum Result 1 - Final, Complete 08/03/16 Sputum Result 2 - Final, Complete 08/03/16 Antimicrobic Susceptibility - Final, Complete 08/02/16 Urine Culture - Final, Complete 08/02/16 Urine Culture Result 1 (MILEY) - Final, Complete 08/03/16 Gram Stain - Final, Complete Medications Current Medications Nitroglycerin 0.4 mg 0.4 mg PRN Q5MIN PRN SL CP RATING > 1/10; Start 07/20/16 at 09:45; Stop 07/20/16 at 15:05; Status DC Nitroglycerin/ Dextrose (Nitroglycerin Drip) 250 ml @ 3 mls/hr 1X ONCE IV Last administered on 07/20/16 10:02; Start 07/20/16 at 10:30; Stop 07/23/16 at 21: 49; Status DC Morphine Sulfate 2 mg PRN Q15MIN PRN IV/SQ PAIN GREATER THAN 3/10; Start at 09:45; Stop 07/21/16 at 09:44; Status DC Ondansetron HCl (Zofran) 4 mg PRN Q8HRS PRN IV NAUSEA/VOMITING; Start 07/20/16 at 12:30; Stop 07/20/16 at 13:36; Status DC Morphine Sulfate 2 mg 2 mg PRN Q2HR PRN IV PAIN; Start 07/20/16 at 12:30; Stop 07/21/16 at 12:29; Status DC Heparin Sodium/ Dextrose 500 ml @ 0 mls/hr CONT PRN IV . Last administered on 10:32; Start 07/20/16 at 13:00; Stop 07/21/16 at 14:50; Status DC Metoprolol Tartrate (Lopressor) 5 mg Q6HRS IVP ; Start 07/20/16 at 13:00; Stop at 14:53; Status DC Aspirin (Ecotrin) 325 mg [id number] PO Last administered on 07/21/16 08:11; Start 07/20/16 at 13:00; Stop 07/21/16 at 17:20; Status DC Ondansetron HCl (Zofran) 4 mg PRN Q6HRS PRN IV NAUSEA/VOMITING; Start 07/20/16 at 13:35; Stop 07/26/16 at 11:41; Status DC Acetaminophen (Tylenol) 500 mg PRN Q6HRS PRN PO MILD PAIN / TEMP Last administered on 07/29/16 09:55; Start 07/20/16 at 13:45; Stop 07/29/16 at 13:38 ; Status DC Docusate Sodium (Colace) 100 mg DAILY PO Last administered on 07/29/16 09:54; Start 07/20/16 at 15:00; Stop 07/29/16 at 10:03; Status DC Iohexol 100 ml 100 ml STK-MED ONCE .ROUTE ; Start 07/20/16 at 12:40; Stop at 13:44; Status DC Heparin Sodium/ Sodium Chloride 1,000 ml @ As Directed STK-MED ONCE .ROUTE ; Start 07/20/16 at 12:41; Stop 07/20/16 at 13:44; Status DC Lidocaine HCl 20 ml STK-MED ONCE .ROUTE ; Start 07/20/16 at 12:41; Stop 07/20/16 at 13:44; Status DC Fentanyl Citrate (Fentanyl 2ml Vial) 100 mcg STK-MED ONCE .ROUTE ; Start at 13:42; Stop 07/20/16 at 13:45; Status DC Midazolam HCl (Versed) 2 mg STK-MED ONCE .ROUTE ; Start 07/20/16 at 13:42; Stop 07/20/16 at 13:45; Status DC Heparin Sodium/ Sodium Chloride 1,000 unit 1X ONCE IART Last administered on 14:29; Start 07/20/16 at 14:00; Stop 07/20/16 at 14:01; Status DC Heparin Sodium/ Sodium Chloride 1,000 unit 1X ONCE IART Last administered on 14:29; Start 07/20/16 at 14:00; Stop 07/20/16 at 14:01; Status DC Midazolam HCl (Versed) 2 mg 1X ONCE IV Last administered on 07/20/16 14:28; Start 07/20/16 at 14:00; Stop 07/20/16 at 14:01; Status DC Fentanyl Citrate (Fentanyl 2ml Vial) 100 mcg 1X ONCE IV Last administered on 14:28; Start 07/20/16 at 14:00; Stop 07/20/16 at 14:01; Status DC Iohexol (Omnipaque 300 Mg/ml) 100 ml 1X ONCE IART Last administered on 14:29; Start 07/20/16 at 14:00; Stop 07/20/16 at 14:01; Status DC Lidocaine HCl 20 ml 1X ONCE IJ Last administered on 07/20/16 14:29; Start 07/20 at 14:00; Stop 07/20/16 at 14:01; Status DC Midazolam HCl (Versed) 2 mg STK-MED ONCE .ROUTE ; Start 07/20/16 at 14:15; Stop 07/20/16 at 14:16; Status DC Sodium Chloride 3 ml 3 ml QSHIFT PRN IV AFTER MEDS AND BLOOD DRAWS; Start at 14:45; Stop 07/29/16 at 13:51; Status DC Sodium Chloride (Iv Sodium Chloride 0.9% 1000ml Bag) 1,000 ml @ 60 mls/hr [id number] IV Last administered on 07/20/16 14:44; Start 07/20/16 at 14:44; Stop at 00:43; Status DC Metoprolol Tartrate (Lopressor) 12.5 mg BID PO ; Start 07/20/16 at 21:00; Stop at 21:00; Status DC Lisinopril (Prinivil) 5 mg DAILY PO Last administered on 07/20/16 16:25; Start 07/20/16 at 15:00; Stop 07/20/16 at 17:21; Status DC Atorvastatin Calcium (Lipitor) 20 mg QHS PO Last administered on 07/20/16 20:33 ; Start 07/20/16 at 21:00; Stop 07/21/16 at 08:11; Status DC Nitroglycerin (Nitrostat) 0.4 mg PRN Q5MIN PRN SL CHEST PAIN Last administered on 07/25/16 04:55; Start 07/20/16 at 14:45; Stop 07/26/16 at 11:41; Status DC Hydralazine HCl (Apresoline) 10 mg PRN Q4HRS PRN IVP ELEVATED BP, SEE COMMENTS Last administered on 07/31/16 10:58; Start 07/20/16 at 17:15; Stop 07/31/16 at 13:31; Status DC Metoprolol Tartrate (Lopressor) 50 mg BID PO Last administered on 07/22/16 08: 31; Start 07/20/16 at 21:00; Stop 07/22/16 at 19:03; Status DC Alprazolam (Xanax) 0.25 mg PRN Q8HRS PRN PO ANXIETY / AGITATION Last administered on 07/24/16 21:34; Start 07/20/16 at 17:30; Stop 07/29/16 at 13:38; Status DC Heparin Sodium (Porcine) 2050 unit 2,050 unit PRN Q6HRS PRN IV FOR UFH LEVEL LESS THAN 0.2 Last administered on 07/21/16 04:24; Start 07/20/16 at 19:45; Stop 07/26/16 at 08:55; Status DC Heparin Sodium/ Dextrose 500 ml @ 19.4 mls/hr CONT PRN IV SEE I/O RECORD; Start 07/20/16 at 19:45; Stop 07/21/16 at 16:24; Status DC Heparin Sodium (Porcine) (Heparin Sodium) 2,050 unit PRN Q6HRS PRN IV FOR UFH LEVEL LESS THAN 0.2; Start 07/20/16 at 19:45; Status UNV Atorvastatin Calcium (Lipitor) 40 mg QHS PO Last administered on 08/06/16 21: 04; Start 07/21/16 at 21:00 Iodixanol (Visipaque 320) 200 ml STK-MED ONCE .ROUTE ; Start 07/20/16 at 14:00; Stop 07/21/16 at 08:26; Status DC Zolpidem Tartrate (Ambien) 5 mg PRN QHS PRN PO INSOMNIA, MAY REPEAT IN 1HR; Start 07/21/16 at 15:30; Stop 07/29/16 at 13:38; Status DC Metoprolol Tartrate 25 mg 25 mg 1X ONCE PO ; Start 07/22/16 at 06:00; Stop at 06:02; Status DC Cefazolin Sodium/ Dextrose 50 ml @ 100 mls/hr 1X ONCE IV ; Start 07/22/16 at 06 :00; Stop 07/22/16 at 06:29; Status DC Heparin Sodium/ Dextrose 500 ml @ 0 mls/hr CONT PRN IV SEE I/O RECORD Last administered on 07/24/16 01:40; Start 07/21/16 at 16:30; Stop 07/26/16 at 08:55; Status DC Lidocaine HCl 2 ml 2 ml 1X PRN PRN ID IV START; Start 07/25/16 at 06:00; Stop 07/26/16 at 05:59; Status Cancel Lactated Ringer's (Iv Lactated Ringers) 1,000 ml @ 0 mls/hr Q0M IV Last administered on 07/25/16 07:30; Start 07/25/16 at 06:00; Stop 07/25/16 at 17:59 ; Status DC Fentanyl Citrate (Fentanyl 2ml Vial) 25 mcg PRN Q5MIN PRN IV Acute Pain; Start 07/22/16 at 09:15; Stop 07/23/16 at 09:14; Status DC Morphine Sulfate 2 mg PRN Q10MIN PRN IV Mild Pain; Start 07/22/16 at 09:15; Stop 07/23/16 at 09:14; Status DC Hydromorphone HCl (Dilaudid) 0.4 mg PRN Q10MIN PRN IV Moderate to severe pain; Start 07/22/16 at 09:15; Stop 07/23/16 at 09:14; Status DC Ondansetron HCl (Zofran) 4 mg PRN Q6HRS PRN IV Nausea, 1st Choice; Start at 09:15; Stop 07/23/16 at 09:14; Status DC Prochlorperazine Edisylate (Compazine) 5 mg PRN Q6HRS PRN IV Nausea/Vomiting, 2nd Choice; Start 07/22/16 at 09:15; Stop 07/23/16 at 09:14; Status DC Ondansetron HCl (Zofran) 4 mg PRN Q6HRS PRN IV NAUSEA/VOMITING; Start 07/25/16 at 07:00; Stop 07/26/16 at 06:59; Status DC Fentanyl Citrate (Fentanyl 2ml Vial) 25 mcg PRN Q5MIN PRN IV MILD PAIN; Start 07/25/16 at 07:00; Stop 07/26/16 at 06:59; Status DC Fentanyl Citrate (Fentanyl 2ml Vial) 50 mcg PRN Q5MIN PRN IV MODERATE PAIN; Start 07/25/16 at 07:00; Stop 07/26/16 at 06:59; Status DC Morphine Sulfate 1 mg 1 mg PRN Q10MIN PRN IV SEVERE PAIN; Start 07/25/16 at 07: 00; Stop 07/25/16 at 20:28; Status DC Lactated Ringer's (Iv Lactated Ringers) 1,000 ml @ 0 mls/hr Q0M IV ; Start 01/31 at 07:00; Stop 07/25/16 at 18:59; Status Cancel Lidocaine HCl 2 ml PRN 1X PRN ID PRIOR TO IV START Last administered on 07:16; Start 07/25/16 at 07:00; Stop 07/26/16 at 06:59; Status DC Hydromorphone HCl (Dilaudid) 0.5 mg PRN Q10MIN PRN IV SEV PAIN, Second choice; Start 07/25/16 at 07:00; Stop 07/26/16 at 06:59; Status DC Prochlorperazine Edisylate 5 mg 5 mg PACU PRN PRN IV NAUSEA, MRX1; Start at 07:00; Stop 07/26/16 at 06:59; Status DC Cefazolin Sodium/ Dextrose (Ancef 2gm Premix) 50 ml @ 100 mls/hr 1X ONCE IV Last administered on 07/25/16 08:12; Start 07/25/16 at 06:00; Stop 07/25/16 at 06:29; Status DC Metoprolol Tartrate (Lopressor) 25 mg 1X ONCE PO ; Start 07/25/16 at 06:00; Stop 07/25/16 at 06:00; Status DC Metoprolol Tartrate (Lopressor) 2.5 mg 1X ONCE IVP Last administered on 16:30; Start 07/22/16 at 16:30; Stop 07/22/16 at 16:31; Status DC Digoxin (Lanoxin) 250 mcg 1X ONCE IV ; Start 07/22/16 at 18:30; Stop 07/22/16 at 18:42; Status DC Digoxin (Lanoxin) 500 mcg 1X ONCE IV Last administered on 07/22/16 18:47; Start 07/22/16 at 18:45; Stop 07/22/16 at 18:46; Status DC Metoprolol Tartrate (Lopressor) 75 mg BID PO Last administered on 07/24/16 21: 30; Start 07/22/16 at 21:00; Stop 07/25/16 at 13:12; Status DC Nitroglycerin 0.4 mg 0.4 mg PRN Q5MIN PRN SL CHEST PAIN; Start 07/23/16 at 12:00 ; Status UNV Heparin Sodium (Porcine) 65072 unit/Lactated Ringer's 1,020 ml @ 1,020 mls/hr 1X PERIOP ONCE IRR Last administered on 07/25/16 08:46; Start 07/25/16 at 06: 00; Stop 07/25/16 at 06:59; Status DC Potassium Chloride 70 meq/ Sodium Bicarbonate 12.5 meq/Lidocaine HCl 24 ml/ Parenteral Electrolytes 571.5 ml @ 571.5 mls/ hr 1X PERIOP ONCE IRR ; Start at 06:00; Stop 07/25/16 at 06:59; Status DC Potassium Chloride/Sodium Bicarbonate/ Parenteral Electrolytes (Isolyte S) 520 ml @ 520 mls/hr 1X PERIOP ONCE IRR ; Start 07/25/16 at 06:00; Stop 07/25/16 at 06:59; Status DC Etomidate (Amidate) 20 mg STK-MED ONCE IV ; Start 07/25/16 at 06:08; Stop at 06:09; Status DC Phenylephrine HCl (-Synephrine Inj) 10 mg STK-MED ONCE .ROUTE ; Start at 06:08; Stop 07/25/16 at 06:09; Status DC Aminocaproic Acid (Amicar) 5,000 mg STK-MED ONCE IV ; Start 07/25/16 at 06:08; Stop 07/25/16 at 06:09; Status DC Heparin Sodium (Porcine) (Heparin Sodium) 10,000 unit STK-MED ONCE .ROUTE ; Start 07/25/16 at 06:10; Stop 07/25/16 at 06:11; Status DC Rocuronium [place] (Zemuron) 100 mg STK-MED ONCE .ROUTE ; Start 07/25/16 at 06: 11; Stop 07/25/16 at 06:12; Status DC Morphine Sulfate 4 mg STK-MED ONCE .ROUTE ; Start 07/25/16 at 06:59; Stop at 07:00; Status DC Morphine Sulfate 4 mg 4 mg 1X ONCE IV ; Start 07/25/16 at 07:15; Stop 07/25/16 at 07:16; Status DC Cefazolin Sodium/ Sodium Chloride (Ancef/Iv Sodium Chloride 0.9% 500ml Bag) 500 ml @ 500 mls/hr 1X PERIOP ONCE IRR Last administered on 07/25/16 08:46; Start 07/25/16 at 07:15; Stop 07/25/16 at 08:14; Status DC Cellulose 1 each STK-MED ONCE .ROUTE Last administered on 07/25/16 08:46; Start 07/25/16 at 07:07; Stop 07/25/16 at 07:08; Status DC Vancomycin HCl (Vanco) 10 gm STK-MED ONCE .ROUTE Last administered on 08:46; Start 07/25/16 at 07:07; Stop 07/25/16 at 07:08; Status DC Papaverine HCl 60 mg STK-MED ONCE .ROUTE Last administered on 07/25/16 08:46; Start 07/25/16 at 07:07; Stop 07/25/16 at 07:08; Status DC Aspirin (Aspirin) 300 mg STK-MED ONCE .ROUTE Last administered on 07/25/16 17: 25; Start 07/25/16 at 07:08; Stop 07/25/16 at 07:09; Status DC Sodium Chloride (Sodium Chloride) 50 ml STK-MED ONCE IJ Last administered on 4/ 10/17at 08:46; Start 07/25/16 at 07:08; Stop 07/25/16 at 07:09; Status DC Midazolam HCl (Versed) 2 mg STK-MED ONCE .ROUTE ; Start 07/25/16 at 07:15; Stop 07/25/16 at 07:16; Status DC Ephedrine Sulfate 50 mg 50 mg STK-MED ONCE IV ; Start 07/25/16 at 07:16; Stop at 07:17; Status DC Nitroglycerin/ Dextrose (Nitroglycerin Drip) 250 ml @ As Directed STK-MED ONCE IV ; Start 07/25/16 at 07:16; Stop 07/25/16 at 07:17; Status DC Midazolam HCl (Versed) 2 mg STK-MED ONCE .ROUTE ; Start 07/25/16 at 07:18; Stop 07/25/16 at 07:19; Status DC Fentanyl Citrate (Fentanyl 2ml Vial) 100 mcg STK-MED ONCE .ROUTE ; Start at 07:19; Stop 07/25/16 at 07:20; Status DC Sufentanil Citrate (Sufenta) 100 mcg STK-MED ONCE .ROUTE ; Start 07/25/16 at 07: 19; Stop 07/25/16 at 07:20; Status DC Midazolam HCl (Versed) 2 mg 1X ONCE IV ; Start 07/25/16 at 08:00; Stop at 08:01; Status DC Dexamethasone Sodium Phosphate (Decadron) 20 mg STK-MED ONCE .ROUTE ; Start 01/31 at 07:58; Stop 07/25/16 at 07:59; Status DC Rocuronium [place] (Zemuron) 100 mg STK-MED ONCE .ROUTE ; Start 07/25/16 at 08: 52; Stop 07/25/16 at 08:53; Status DC Sufentanil Citrate (Sufenta) 100 mcg STK-MED ONCE .ROUTE ; Start 07/25/16 at 08: 53; Stop 07/25/16 at 08:54; Status DC Protamine Sulfate 250 mg STK-MED ONCE IV ; Start 07/25/16 at 10:43; Stop at 10:44; Status DC Rocuronium [place] 100 mg 100 mg STK-MED ONCE .ROUTE ; Start 07/25/16 at 10:52; Stop 07/25/16 at 10:53; Status DC Albumin Human 0 ml @ As Directed STK-MED ONCE IV ; Start 07/25/16 at 10:53; Stop 07/25/16 at 10:54; Status DC Amiodarone HCl/ Dextrose (Cordarone) 518 ml @ 34.53 mls/ hr 1X ONCE IV Last administered on 07/25/16t 18:52; Start 07/25/16 at 11:30; Stop 07/26/16 at 02:30 ; Status DC Sodium Bicarbonate 50 meq STK-MED ONCE .ROUTE ; Start 07/25/16 at 11:35; Stop at 11:36; Status DC Protamine Sulfate 50 mg STK-MED ONCE IV ; Start 07/25/16 at 12:31; Stop at 12:32; Status DC Amiodarone HCl (Cordarone) 150 mg STK-MED ONCE .ROUTE ; Start 07/25/16 at 12:37 ; Stop 07/25/16 at 12:38; Status DC Isoflurane (Isoflurane) 90 ml STK-MED ONCE IH ; Start 07/25/16 at 12:42; Stop at 12:43; Status DC Lidocaine HCl (Lidocaine HCl 2% Abboject) 100 mg STK-MED ONCE .ROUTE ; Start 01/31 at 13:07; Stop 07/25/16 at 13:08; Status DC Mannitol (Mannitol) 12.5 g STK-MED ONCE .ROUTE ; Start 07/25/16 at 13:07; Stop 07/25/16 at 13:08; Status DC Calcium Chloride 1,000 mg STK-MED ONCE IV ; Start 07/25/16 at 13:07; Stop at 13:08; Status DC Sodium Bicarbonate 50 meq 50 meq STK-MED ONCE .ROUTE ; Start 07/25/16 at 13:07; Stop 07/25/16 at 13:08; Status DC Albumin Human (Albuminar) 100 ml @ As Directed STK-MED ONCE IV ; Start at 13:07; Stop 07/25/16 at 13:08; Status DC Magnesium Sulfate 5 gm STK-MED ONCE .ROUTE ; Start 07/25/16 at 13:08; Stop 07/25 at 13:09; Status DC Heparin Sodium (Porcine) 21663 unit 30,000 unit STK-MED ONCE .ROUTE ; Start 01/31 at 13:08; Stop 07/25/16 at 13:09; Status DC Clevidipine (Cleviprex) 100 ml @ 0 mls/hr CONT PRN IV PER PROTOCOL; Start 07/25 at 13:45; Stop 07/26/16 at 11:29; Status DC Heparin Sodium (Porcine) 95481 unit 30,000 unit STK-MED ONCE .ROUTE ; Start 01/31 at 13:39; Stop 07/25/16 at 13:40; Status DC Epinephrine HCl/ Sodium Chloride (Adrenalin/Iv Sodium Chloride 0.9% 250ml) 254 ml @ 3.81 mls/hr CONT PRN IV SEE I/O RECORD; Start 07/25/16 at 13:45 Epinephrine HCl (Epinephrine Syringe) 1 mg STK-MED ONCE .ROUTE ; Start 07/25/16 at 13:52; Stop 07/25/16 at 13:53; Status DC Rocuronium [place] (Zemuron) 100 mg STK-MED ONCE .ROUTE ; Start 07/25/16 at 13: 57; Stop 07/25/16 at 13:58; Status DC Sodium Bicarbonate 50 meq 50 meq STK-MED ONCE .ROUTE ; Start 07/25/16 at 14:04; Stop 07/25/16 at 14:05; Status DC Procainamide HCl/ Dextrose (Pronestyl) 520 ml @ 15.6 mls/hr CONT PRN IV SEE I/ O RECORD; Start 07/25/16 at 14:30; Stop 07/28/16 at 15:22; Status DC Sodium Bicarbonate 50 meq STK-MED ONCE .ROUTE ; Start 07/25/16 at 14:31; Stop at 14:32; Status DC Sodium Bicarbonate 50 meq STK-MED ONCE .ROUTE ; Start 07/25/16 at 14:31; Stop at 14:32; Status DC Protamine Sulfate 50 mg STK-MED ONCE IV ; Start 07/25/16 at 15:13; Stop at 15:14; Status DC Protamine Sulfate 50 mg STK-MED ONCE IV ; Start 07/25/16 at 15:13; Stop at 15:14; Status DC Isoflurane 90 ml 90 ml STK-MED ONCE IH ; Start 07/25/16 at 15:13; Stop 07/25/16 at 15:14; Status DC Dobutamine HCl/ Dextrose 250 ml @ As Directed STK-MED ONCE IV ; Start 07/25/16 at 15:17; Stop 07/25/16 at 15:18; Status DC Iohexol 100 ml 100 ml STK-MED ONCE .ROUTE Last administered on 07/25/16t 15:39 ; Start 07/25/16 at 15:28; Stop 07/25/16 at 15:29; Status DC Norepinephrine Bitartrate 8 mg/ Sodium Chloride 258 ml @ 1.93 mls/hr 1X ONCE IV Last administered on 07/25/16t 18:53; Start 07/25/16 at 16:00; Stop at 08:04; Status DC Albumin Human (Plasmanate) 1,000 ml @ As Directed STK-MED ONCE IV ; Start 07/25 at 16:11; Stop 07/25/16 at 16:12; Status DC Heparin Sodium (Porcine) (Heparin Sodium) 10,000 unit STK-MED ONCE .ROUTE ; Start 07/25/16 at 16:19; Stop 07/25/16 at 16:20; Status DC Lidocaine HCl (Lidocaine HCl 2% Abboject) 100 mg STK-MED ONCE .ROUTE ; Start 01/31 at 16:19; Stop 07/25/16 at 16:20; Status DC Mannitol (Mannitol) 12.5 g STK-MED ONCE .ROUTE ; Start 07/25/16 at 16:19; Stop 07/25/16 at 16:20; Status DC Calcium Chloride 1,000 mg STK-MED ONCE IV ; Start 07/25/16 at 16:19; Stop at 16:20; Status DC Sodium Bicarbonate 50 meq STK-MED ONCE .ROUTE ; Start 07/25/16 at 16:19; Stop at 16:20; Status DC Magnesium Sulfate 5 gm STK-MED ONCE .ROUTE ; Start 07/25/16 at 16:19; Stop 07/25 at 16:20; Status DC Heparin Sodium (Porcine) (Heparin Sodium) 10,000 unit STK-MED ONCE .ROUTE ; Start 07/25/16 at 16:20; Stop 07/25/16 at 16:21; Status DC Lidocaine HCl (Lidocaine HCl 2% Abboject) 100 mg STK-MED ONCE .ROUTE ; Start 01/31 at 16:20; Stop 07/25/16 at 16:21; Status DC Aminocaproic Acid (Amicar) 5,000 mg STK-MED ONCE IV ; Start 07/25/16 at 16:20; Stop 07/25/16 at 16:21; Status DC Mannitol (Mannitol) 12.5 g STK-MED ONCE .ROUTE ; Start 07/25/16 at 16:20; Stop 07/25/16 at 16:21; Status DC Sodium Bicarbonate 50 meq 50 meq STK-MED ONCE .ROUTE ; Start 07/25/16 at 16:20; Stop 07/25/16 at 16:21; Status DC Albumin Human (Albuminar) 100 ml @ As Directed STK-MED ONCE IV ; Start at 16:20; Stop 07/25/16 at 16:21; Status DC Rocuronium [place] (Zemuron) 50 mg STK-MED ONCE .ROUTE ; Start 07/25/16 at 16:33 ; Stop 07/25/16 at 16:34; Status DC Rocuronium [place] (Zemuron) 50 mg STK-MED ONCE .ROUTE ; Start 07/25/16 at 16:33 ; Stop 07/25/16 at 16:34; Status DC Protamine Sulfate 50 mg STK-MED ONCE IV ; Start 07/25/16 at 16:34; Stop at 16:35; Status DC Sodium Bicarbonate 50 meq STK-MED ONCE .ROUTE ; Start 07/25/16 at 16:36; Stop at 16:37; Status DC Calcium Chloride 1,000 mg STK-MED ONCE IV ; Start 07/25/16 at 16:41; Stop at 16:42; Status DC Epinephrine HCl (Epinephrine Syringe) 1 mg STK-MED ONCE .ROUTE ; Start 07/25/16 at 16:41; Stop 07/25/16 at 16:42; Status DC Sodium Bicarbonate 50 meq STK-MED ONCE .ROUTE ; Start 07/25/16 at 16:52; Stop at 16:53; Status DC Sodium Bicarbonate 50 meq STK-MED ONCE .ROUTE ; Start 07/25/16 at 16:52; Stop at 16:53; Status DC Sodium Bicarbonate 50 meq STK-MED ONCE .ROUTE ; Start 07/25/16 at 16:52; Stop at 16:53; Status DC Vasopressin (Vasostrict) 20 unit STK-MED ONCE .ROUTE ; Start 07/25/16 at 16:54; Stop 07/25/16 at 16:55; Status DC Famotidine (Pepcid) 20 mg STK-MED ONCE .ROUTE ; Start 07/25/16 at 16:56; Stop at 16:57; Status DC Dexamethasone Sodium Phosphate (Decadron) 20 mg STK-MED ONCE .ROUTE ; Start 01/31 at 16:56; Stop 07/25/16 at 16:57; Status DC Diphenhydramine HCl 50 mg 50 mg STK-MED ONCE .ROUTE ; Start 07/25/16 at 16:56; Stop 07/25/16 at 16:57; Status DC Vasopressin/ Dextrose (Vasostrict) 102 ml @ 6 mls/hr CONT PRN IV SEE I/O RECORD Last administered on 08/03/16 18:28; Start 07/25/16 at 17:15 Sodium Bicarbonate 50 meq STK-MED ONCE .ROUTE ; Start 07/25/16 at 17:24; Stop at 17:25; Status DC Sodium Bicarbonate 50 meq 50 meq STK-MED ONCE .ROUTE ; Start 07/25/16 at 17:24; Stop 07/25/16 at 17:25; Status DC Cefazolin Sodium/ Dextrose (Ancef 2gm Premix) 50 ml @ As Directed STK-MED ONCE IV ; Start 07/25/16 at 17:32; Stop 07/25/16 at 17:33; Status DC Sodium Chloride 3 ml 3 ml PRN Q12HR PRN IV AFTER MEDS AND BLOOD DRAWS; Start at 17:30; Stop 07/29/16 at 13:38; Status DC Lactated Ringer's 1,000 ml @ 15 mls/hr Q24H IV Last administered on 07/29/16 16:45; Start 07/25/16 at 17:30; Stop 07/31/16 at 15:33; Status DC Insulin Human Regular/Sodium Chloride (Novolin R Vial/ Iv Normal Saline 150ml) 151.5 ml @ 0 mls/hr CONT PRN PRN IV SEE I/O RECORD Last administered on 03:03; Start 07/25/16 at 17:30; Stop 07/29/16 at 13:51; Status DC Dextrose 25 gm 25 gm PRN Q15MIN PRN IV LOW BLOOD SUGAR; Start 07/25/16 at 17:30 ; Stop 07/29/16 at 13:51; Status DC Dopamine HCl/ Dextrose 250 ml @ 0 mls/hr CONT PRN PRN IV SEE I/O RECORD; Start 07/25/16 at 17:30; Stop 07/26/16 at 11:41; Status DC Amiodarone HCl/ Dextrose (Cordarone) 518 ml @ 33.33 mls/ hr CONT PRN PRN IV SEE COMMENTS; Start 07/25/16 at 17:30; Status UNV Info 1 ea CONT PRN PRN MC SEE COMMENTS; Start 07/25/16 at 17:30; Stop 08/03/16 at 12:57; Status DC Info 1 ea 1 ea CONT PRN PRN MC SEE COMMENTS; Start 07/25/16 at 17:30 Magnesium Sulfate/ Dextrose (Magnesium Sulfate PREMIX 1GM) 100 ml @ 100 mls/hr PRN DAILY PRN IV FOR MAG < 2.2 Last administered on 07/27/16 10:59; Start 01/31 at 17:30 Famotidine (Pepcid) 20 mg BID IVP Last administered on 08/03/16 09:15; Start 07/25/16 at 21:00; Stop 08/03/16 at 15:28; Status DC Metoclopramide HCl (Reglan) 10 mg PRN Q6HRS PRN IV NAUSEA/VOMITING Last administered on 08/07/16 07:26; Start 07/25/16 at 17:30 Morphine Sulfate 2 mg PRN Q1HR PRN IV PAIN Last administered on 07/28/16 14:21 ; Start 07/25/16 at 17:30; Stop 07/29/16 at 13:38; Status DC Acetaminophen (Tylenol) 650 mg PRN Q4HRS PRN PO MILD PAIN / TEMP; Start at 17:30; Stop 07/29/16 at 13:38; Status DC Acetaminophen (Acetaminophen Supp) 650 mg PRN Q4HRS PRN AL MILD PAIN / TEMP Last administered on 08/03/16 01:04; Start 07/25/16 at 17:30 Meperidine HCl 12.5 mg 12.5 mg PRN Q15MIN PRN IV SHIVERING; Start 07/25/16 at 17:30; Stop 07/29/16 at 13:38; Status DC Propofol (Diprivan) 100 ml @ 0 mls/hr CONT PRN PRN IV POSTOP SEDATION UNTIL EXTUBATE; Start 07/25/16 at 17:30; Stop 07/28/16 at 15:22; Status DC Aspirin (Ecotrin) 325 mg DAILYWBKFT PO Last administered on 07/29/16 09:54; Start 07/26/16 at 08:00; Stop 07/29/16 at 09:59; Status DC Aspirin (Aspirin) 300 mg PRN DAILY PRN AL IF UNABLE TO TAKE PO; Start 07/25/16 at 17:30; Stop 07/26/16 at 12:00; Status DC Acetaminophen/ Hydrocodone Bitart (Lortab 5/325) 1 tab PRN Q4HRS PRN PO MILD PAIN; Start 07/25/16 at 17:30; Stop 08/03/16 at 12:24; Status DC Acetaminophen/ Hydrocodone Bitart 2 tab 2 tab PRN Q4HRS PRN PO MODERATE PAIN, SEVERE PAIN; Start 07/25/16 at 17:30; Stop 08/03/16 at 12:24; Status DC Cefazolin Sodium/ Dextrose 50 ml @ 100 mls/hr Q8H IV ; Start 07/25/16 at 18:00 ; Stop 07/25/16 at 21:42; Status DC Albumin Human 250 ml @ 62.5 mls/hr 1X ONCE IV Last administered on 07/27/16 17:52; Start 07/25/16 at 17:30; Stop 07/25/16 at 21:29; Status DC Midazolam HCl 100 ml @ As Directed STK-MED ONCE IV ; Start 07/25/16 at 18:06; Stop 07/25/16 at 18:07; Status DC Midazolam HCl 100 ml @ 0 mls/hr CONT PRN IV SEE I/O RECORD Last administered on 07/25/16 18:56; Start 07/25/16 at 18:15; Stop 07/26/16 at 08:59; Status DC Vancomycin HCl 1 gm/Sodium Chloride 250 ml @ 250 mls/hr 1X ONCE IV Last administered on 07/25/16 20:56; Start 07/25/16 at 18:15; Stop 07/25/16 at 19:14 ; Status DC Piperacillin Sod/ Tazobactam Sod/ Sodium Chloride (Zosyn/Iv Sodium Chloride 0.9 % 50ml) 50 ml @ 100 mls/hr Q6HRS IV Last administered on 07/31/16 05:32; Start 07/25/16 at 18:15; Stop 07/31/16 at 10:25; Status DC Midazolam HCl (Versed) 2 mg PRN Q20MIN PRN IV SEDATION; Start 07/25/16 at 18:15 ; Stop 07/25/16 at 18:39; Status DC Midazolam HCl 5 mg 5 mg PRN Q30MIN PRN IV SEDATION; Start 07/25/16 at 18:15; Stop 07/25/16 at 18:39; Status DC Vecuronium [place] 100 mg/ Dextrose 100 ml @ 0 mls/hr 1X ONCE IV Last administered on 07/25/16 19:43; Start 07/25/16 at 18:15; Stop 07/25/16 at 18:17 ; Status DC Midazolam HCl 100 ml @ 0 mls/hr CONT PRN IV SEE I/O RECORD Last administered on 07/28/16 19:40; Start 07/25/16 at 18:45 Dobutamine HCl/ Dextrose 250 ml @ 0 mls/hr CONT PRN IV SEE I/O RECORD Last administered on 07/29/16 03:10; Start 07/25/16 at 18:45; Stop 07/29/16 at 13:38 ; Status DC Potassium Chloride 50 ml @ 50 mls/hr Q1H IV Last administered on 07/25/16 22: 58; Start 07/25/16 at 21:00; Stop 07/25/16 at 23:59; Status DC Cefazolin Sodium/ Dextrose 50 ml @ 100 mls/hr Q8H IV Last administered on 07/27 05:34; Start 07/25/16 at 22:00; Stop 07/27/16 at 06:29; Status DC Heparin Sodium (Porcine) 21809 unit/Dextrose 512.5 ml @ 0 mls/hr Q0M ONCE IV Last administered on 07/25/16 22:21; Start 07/25/16 at 22:15; Stop 07/25/16 at 22:16; Status DC Vecuronium [place]/Dextrose (Norcuron) 100 ml @ 0 mls/hr CONT PRN IV SEE I/O RECORD Last administered on 07/26/16 01:07; Start 07/26/16 at 00:45; Stop 07/29 at 13:38; Status DC Dextrose 25 gm 25 gm 1X ONCE IV Last administered on 07/26/16 01:08; Start at 01:00; Stop 07/26/16 at 01:18; Status DC Amiodarone HCl/ Dextrose (Cordarone) 259 ml @ 17.26 mls/ hr CONT PRN IV SEE I/ O RECORD Last administered on 07/30/16 13:02; Start 07/26/16 at 06:45; Stop at 15:33; Status DC Cefazolin Sodium/ Dextrose 2 gm 2 gm STK-MED ONCE IV ; Start 07/25/16 at 11:00; Stop 07/26/16 at 08:53; Status DC Lactated Ringer's 500 ml @ 5,000 mls/hr PRN Q10MIN PRN IV CVP <14; Start 07/26 at 10:00; Stop 07/29/16 at 13:38; Status DC Fentanyl Citrate (Fentanyl 600 Mcg/30 ml [employer]) 30 ml @ 0 mls/hr CONT PRN IV PROTOCOL Last administered on 07/31/16 09:12; Start 07/26/16 at 10:00; Stop at 13:31; Status DC Fentanyl Citrate (Fentanyl 2ml Vial) 25 mcg PRN Q1HR PRN IV COMM; Start at 10:00; Stop 07/29/16 at 13:38; Status DC Fentanyl Citrate (Fentanyl 2ml Vial) 50 mcg PRN Q1HR PRN IV COMM; Start at 10:00; Stop 07/29/16 at 13:38; Status DC Chlorhexidine Gluconate (Peridex) 15 ml BID MM Last administered on 08/07/16 07:26; Start 07/26/16 at 10:30 Sulfur Hexafluoride Microspheres (Lumason) 25 mg STK-MED ONCE IVP ; Start at 11:29; Stop 07/26/16 at 11:30; Status DC Aspirin 300 mg 300 mg DAILY AL Last administered on 07/28/16 07:55; Start 03/03 at 12:00; Stop 07/29/16 at 19:10; Status DC Potassium Chloride (KCl Premix 20meq) 50 ml @ 50 mls/hr 1X ONCE IV Last administered on 07/26/16 12:55; Start 07/26/16 at 12:00; Stop 07/26/16 at 12:59 ; Status DC Sulfur Hexafluoride Microspheres (Lumason) 25 mg 1X ONCE IVP Last administered on 07/26/16 11:45; Start 07/26/16 at 11:45; Stop 07/26/16 at 11:50 ; Status DC Multi-Ingred Cream/Lotion/Oil/ Oint (Artificial Tears Eye Oint) 1 adri BID OU Last administered on 08/07/16 07:26; Start 07/26/16 at 21:00 Ondansetron HCl (Zofran) 4 mg PRN Q6HRS PRN IV NAUSEA/VOMITING; Start 07/27/16 at 07:00; Stop 07/28/16 at 06:59; Status DC Fentanyl Citrate (Fentanyl 2ml Vial) 25 mcg PRN Q5MIN PRN IV MILD PAIN; Start 07/27/16 at 07:00; Stop 07/28/16 at 06:59; Status DC Fentanyl Citrate (Fentanyl 2ml Vial) 50 mcg PRN Q5MIN PRN IV MODERATE PAIN; Start 07/27/16 at 07:00; Stop 07/28/16 at 06:59; Status DC Morphine Sulfate 1 mg 1 mg PRN Q10MIN PRN IV SEVERE PAIN; Start 07/27/16 at 07: 00; Stop 07/28/16 at 06:59; Status DC Lactated Ringer's (Iv Lactated Ringers) 1,000 ml @ 30 mls/hr Q24H IV Last administered on 07/26/16 17:25; Start 07/27/16 at 07:00; Stop 07/27/16 at 18:59 ; Status DC Lidocaine HCl 2 ml PRN 1X PRN ID PRIOR TO IV START; Start 07/27/16 at 07:00; Stop 07/28/16 at 06:59; Status DC Hydromorphone HCl (Dilaudid) 0.5 mg PRN Q10MIN PRN IV SEV PAIN, Second choice; Start 07/27/16 at 07:00; Stop 07/28/16 at 06:59; Status DC Prochlorperazine Edisylate 5 mg 5 mg PACU PRN PRN IV NAUSEA, MRX1; Start at 07:00; Stop 07/28/16 at 06:59; Status DC Heparin Sodium (Porcine) 94113 unit/Dextrose 512.5 ml @ 0 mls/hr Q0M ONCE IV Last administered on 07/26/16 19:40; Start 07/26/16 at 18:30; Stop 07/26/16 at 18:31; Status DC Amiodarone HCl 150 mg/Dextrose 103 ml @ 618 mls/hr 1X ONCE IV Last administered on 07/26/16 19:25; Start 07/26/16 at 19:15; Stop 07/26/16 at 19:24 ; Status DC Norepinephrine Bitartrate 8 mg/ Sodium Chloride 258 ml @ 1.93 mls/hr CONT PRN IV SEE I/O RECORD Last administered on 08/03/16 11:12; Start 07/26/16 at 19:15 Amiodarone HCl 900 mg/Dextrose 518 ml @ 0 mls/hr CONT PRN IV PER PROTOCOL; Start 07/26/16 at 19:15; Stop 07/27/16 at 12:11; Status DC Milrinone Lactate/ Dextrose 100 ml @ 0 mls/hr CONT PRN IV SEE I/O RECORD Last administered on 07/26/16 20:03; Start 07/26/16 at 19:45; Stop 07/29/16 at 13:51 ; Status DC Calcium Chloride/ Sodium Chloride (Iv Sodium Chloride 0.9% 100ml) 120 ml @ 240 mls/hr 1X ONCE IV Last administered on 07/26/16 21:04; Start 07/26/16 at 21: 30; Stop 07/26/16 at 21:59; Status DC Digoxin 500 mcg 500 mcg 1X ONCE IV Last administered on 07/26/16 21:55; Start 07/26/16 at 21:45; Stop 07/26/16 at 21:46; Status DC Cefazolin Sodium/ Sodium Chloride (Ancef/Iv Sodium Chloride 0.9% 500ml Bag) 500 ml @ 500 mls/hr 1X PERIOP ONCE IRR Last administered on 07/27/16 14:37; Start 07/27/16 at 10:00; Stop 07/27/16 at 10:59; Status DC Vancomycin HCl (Vanco) 10 gm 1X ONCE CEMENT Last administered on 07/27/16 14: 37; Start 07/27/16 at 12:30; Stop 07/27/16 at 12:31; Status DC Rocuronium [place] (Zemuron) 100 mg STK-MED ONCE .ROUTE ; Start 07/27/16 at 12: 32; Stop 07/27/16 at 12:33; Status DC Lorazepam (Ativan) 2 mg STK-MED ONCE .ROUTE ; Start 07/27/16 at 14:13; Stop 04/02 at 14:14; Status DC Phenylephrine HCl 1 mg 1 mg STK-MED ONCE IV ; Start 07/27/16 at 14:18; Stop 04/02 at 14:19; Status DC Albumin Human (Plasmanate) 250 ml @ 62.5 mls/hr 1X ONCE IV Last administered on 07/27/16 17:52; Start 07/27/16 at 17:15; Stop 07/27/16 at 21:14; Status DC Sodium Bicarbonate 50 meq STK-MED ONCE .ROUTE ; Start 07/27/16 at 17:39; Stop at 17:40; Status DC Sodium Bicarbonate 50 meq 1X ONCE IV Last administered on 07/27/16 17:51; Start 07/27/16 at 18:00; Stop 07/27/16 at 18:01; Status DC Sodium Bicarbonate 50 meq 1X ONCE IV Last administered on 07/27/16 17:52; Start 07/27/16 at 18:00; Stop 07/27/16 at 18:01; Status DC Fentanyl Citrate (Fentanyl 2ml Vial) 25 mcg PRN Q5MIN PRN IV MILD PAIN; Start 07/28/16 at 07:00; Stop 07/29/16 at 06:59; Status DC Fentanyl Citrate (Fentanyl 2ml Vial) 50 mcg PRN Q5MIN PRN IV MODERATE PAIN; Start 07/28/16 at 07:00; Stop 07/29/16 at 06:59; Status DC Morphine Sulfate 1 mg 1 mg PRN Q10MIN PRN IV SEVERE PAIN; Start 07/28/16 at 07: 00; Stop 07/29/16 at 06:59; Status DC Lactated Ringer's (Iv Lactated Ringers) 1,000 ml @ 30 mls/hr Q24H IV Last administered on 07/28/16 06:49; Start 07/28/16 at 06:49; Stop 07/28/16 at 18:48 ; Status DC Lidocaine HCl 2 ml PRN 1X PRN ID PRIOR TO IV START; Start 07/28/16 at 07:00; Stop 07/29/16 at 06:59; Status DC Hydromorphone HCl (Dilaudid) 0.5 mg PRN Q10MIN PRN IV SEV PAIN, Second choice; Start 07/28/16 at 07:00; Stop 07/29/16 at 06:59; Status DC Rocuronium [place] 50 mg 50 mg STK-MED ONCE .ROUTE ; Start 07/28/16 at 07:27; Stop 07/28/16 at 07:28; Status DC Cefazolin Sodium/ Sodium Chloride (Ancef/Iv Sodium Chloride 0.9% 500ml Bag) 500 ml @ 500 mls/hr 1X PERIOP ONCE IRR Last administered on 07/28/16 09:25; Start 07/28/16 at 08:00; Stop 07/28/16 at 08:59; Status DC Cellulose 1 each STK-MED ONCE .ROUTE ; Start 07/28/16 at 07:42; Stop 07/28/16 at 07:43; Status DC Bupivacaine HCl/ Epinephrine Bitart 50 ml 50 ml STK-MED ONCE .ROUTE ; Start at 07:42; Stop 07/28/16 at 07:43; Status DC Heparin Sodium (Porcine)/Sodium Chloride (Heparin Sodium/ Iv Sodium Chloride 0.9 % 500ml Bag) 505 ml @ 505 mls/hr 1X PERIOP ONCE IRR Last administered on 07/28t 10:19; Start 07/28/16 at 08:15; Stop 07/28/16 at 09:14; Status DC Lorazepam 2 mg 2 mg STK-MED ONCE .ROUTE ; Start 07/28/16 at 08:29; Stop at 08:30; Status DC Magnesium Sulfate/ Dextrose (Magnesium Sulfate PREMIX 1GM) 100 ml @ 100 mls/hr 1X ONCE IV Last administered on 07/28/16t 13:09; Start 07/28/16 at 09:00; Stop 07/28/16 at 09:59; Status DC Vasopressin (Vasostrict) 20 unit STK-MED ONCE .ROUTE ; Start 07/28/16 at 09:03; Stop 07/28/16 at 09:04; Status DC Epinephrine HCl (Epinephrine Syringe) 1 mg STK-MED ONCE .ROUTE ; Start 07/28/16 at 09:09; Stop 07/28/16 at 09:10; Status DC Calcium Chloride 1,000 mg STK-MED ONCE IV ; Start 07/28/16 at 09:09; Stop at 09:10; Status DC Phenylephrine HCl 1 mg STK-MED ONCE IV ; Start 07/28/16 at 09:54; Stop 07/28/16 at 09:55; Status DC Sevoflurane 60 ml 60 ml STK-MED ONCE IH ; Start 07/28/16 at 09:54; Stop at 09:55; Status DC Epinephrine HCl/ Sodium Chloride (Adrenalin/Iv Sodium Chloride 0.9% 250ml) 254 ml @ 3.81 mls/hr 1X ONCE IV ; Start 07/28/16 at 10:00; Stop 07/29/16 at 19:10 ; Status DC Heparin Sodium (Porcine) 47910 unit 10,000 unit STK-MED ONCE .ROUTE ; Start at 09:57; Stop 07/28/16 at 09:58; Status DC Albumin Human (Plasmanate) 500 ml @ As Directed STK-MED ONCE IV ; Start at 09:57; Stop 07/28/16 at 09:58; Status DC Iohexol 100 ml 100 ml STK-MED ONCE .ROUTE ; Start 07/28/16 at 10:39; Stop at 10:40; Status DC Heparin Sodium/ Sodium Chloride 500 ml @ As Directed STK-MED ONCE .ROUTE ; Start 07/28/16 at 10:39; Stop 07/28/16 at 10:40; Status DC Iohexol 100 ml 100 ml STK-MED ONCE .ROUTE ; Start 07/28/16 at 10:43; Stop at 10:44; Status DC Heparin Sodium/ Sodium Chloride 500 ml @ As Directed STK-MED ONCE .ROUTE ; Start 07/28/16 at 11:21; Stop 07/28/16 at 11:22; Status DC Albuterol Sulfate (Ventolin Neb Soln) 2.5 mg RTQID NEB Last administered on 08:46; Start 07/28/16 at 12:00; Stop 07/30/16 at 17:05; Status DC Furosemide (Lasix) 40 mg 1X ONCE IVP Last administered on 07/28/16 13:16; Start 07/28/16 at 13:15; Stop 07/28/16 at 13:16; Status DC Furosemide (Lasix) 40 mg 1X ONCE IVP Last administered on 07/28/16 13:19; Start 07/28/16 at 14:00; Stop 07/28/16 at 14:01; Status DC Heparin Sodium/ Sodium Chloride 1000 unit 1,000 unit CONT PRN IV ART LINE FLUSH Last administered on 08/02/16 06:47; Start 07/28/16 at 14:45 Albumin Human 250 ml @ 62.5 mls/hr PRN Q1HR PRN IV SEE COMMENTS Last administered on 08/02/16 16:12; Start 07/28/16 at 15:15 Furosemide 100 mg/ Sodium Chloride 100 ml @ 5 mls/hr CONT PRN IV SEE I/O RECORD Last administered on 07/30/16 09:50; Start 07/28/16 at 15:30; Stop 07/31 at 13:31; Status DC Potassium Chloride 50 ml @ 50 mls/hr Q1H IV Last administered on 07/28/16 19: 39; Start 07/28/16 at 18:30; Stop 07/28/16 at 20:29; Status DC Potassium Chloride (KCl Premix 20meq) 50 ml @ 50 mls/hr Q1H IV Last administered on 07/29/16 09:36; Start 07/29/16 at 07:00; Stop 07/29/16 at 08:59 ; Status DC Lorazepam (Ativan) 2 mg STK-MED ONCE .ROUTE ; Start 07/28/16 at 08:30; Stop at 08:16; Status DC Aspirin (Arti Aspirin) 325 mg DAILYWBKFT PO Last administered on 08/07/16 07: 26; Start 07/30/16 at 08:00 Docusate Sodium 100 mg 100 mg DAILY PO Last administered on 07/31/16 07:59; Start 07/30/16 at 09:00; Stop 07/31/16 at 11:00; Status DC Dobutamine HCl/ Dextrose 250 ml @ 12.1 mls/hr CONT PRN IV PER PROTOCOL Last administered on 08/02/16 18:03; Start 07/29/16 at 13:30 Potassium Chloride 50 ml @ 50 mls/hr Q1H IV Last administered on 07/29/16 22: 39; Start 07/29/16 at 20:00; Stop 07/29/16 at 22:59; Status DC Potassium Chloride (KCl Premix 20meq) 50 ml @ 50 mls/hr Q1H IV Last administered on 07/30/16 09:19; Start 07/30/16 at 07:00; Stop 07/30/16 at 08:59 ; Status DC Ipratropium [place] (Atrovent) 0.5 mg RTQID NEB Last administered on 08/07/16 08:42; Start 07/30/16 at 12:30 Digoxin 500 mcg 500 mcg 1X ONCE IV Last administered on 07/30/16 13:01; Start 07/30/16 at 12:15; Stop 07/30/16 at 12:19; Status DC Dexmedetomidine HCl/Sodium Chloride (Precedex/Iv Sodium Chloride 0.9% 50ml) 50 ml @ 0 mls/hr CONT PRN IV PER PROTOCOL Last administered on 08/04/16 05:20; Start 07/30/16 at 13:30 Atropine Sulfate 0.5 mg PRN Q5MIN PRN IV SEE COMMENTS; Start 07/30/16 at 13:30 Amiodarone HCl (Cordarone) 400 mg ONCE ONCE PO Last administered on 07/30/16 15:01; Start 07/30/16 at 13:30; Stop 07/30/16 at 13:46; Status DC Amiodarone HCl (Cordarone) 400 mg BID PO Last administered on 08/07/16 07:25; Start 07/30/16 at 21:00 Digoxin 125 mcg 125 mcg DAILY IV Last administered on 08/02/16 08:56; Start at 09:00; Stop 08/03/16 at 14:27; Status DC Albumin Human (Albuminar) 50 ml @ 50 mls/hr 1X ONCE IV Last administered on 16:26; Start 07/30/16 at 16:30; Stop 07/30/16 at 17:29; Status DC Ibuprofen (Motrin) 200 mg PRN Q6HRS PRN PO fever; Start 07/30/16 at 19:45; Stop 08/01/16 at 12:22; Status DC Metoprolol Tartrate (Lopressor) 2.5 mg 1X ONCE IVP Last administered on 20:23; Start 07/30/16 at 20:30; Stop 07/30/16 at 20:31; Status DC Metoprolol Tartrate 5 mg 5 mg PRN Q2HR PRN IVP HYPERTENSION Last administered on 08/04/16 22:09; Start 07/30/16 at 22:30 Potassium Chloride (KCl Premix 20meq) 50 ml @ 50 mls/hr Q1H IV Last administered on 07/31/16 09:04; Start 07/31/16 at 07:00; Stop 07/31/16 at 08:59 ; Status DC Metoprolol Tartrate (Lopressor) 12.5 mg BID NG Last administered on 08/07/16 07:25; Start 07/31/16 at 10:00 Docusate Sodium (Colace Solution) 100 mg PRN DAILY PRN PO constipation Last administered on 08/01/16 08:40; Start 07/31/16 at 11:00 Hydralazine HCl (Apresoline) 10 mg PRN Q2HRS PRN IVP ELEVATED BP, SEE COMMENTS Last administered on 08/01/16 16:35; Start 07/31/16 at 13:30 Fentanyl Citrate (Fentanyl 2ml Vial) 50 mcg PRN Q2HR PRN IV PAIN Last administered on 08/02/16 12:57; Start 07/31/16 at 13:45 Furosemide (Lasix) 40 mg TID IVP Last administered on 08/02/16 05:49; Start at 14:00; Stop 08/02/16 at 15:33; Status DC Alteplase, Recombinant (Cathflo) 2 mg 1X ONCE INT CAT Last administered on 23:34; Start 07/31/16 at 23:15; Stop 07/31/16 at 23:16; Status DC Haloperidol Lactate (Haldol) 5 mg PRN Q6HRS PRN IVP MODERATE AGITATION Last administered on 08/07/16 07:26; Start 08/01/16 at 21:00 Haloperidol Lactate 10 mg 10 mg PRN Q6HRS PRN IVP SEVERE AGITATION Last administered on 08/06/16 21:05; Start 08/01/16 at 23:45 Propofol 100 ml @ 0 mls/hr CONT PRN IV SEE I/O RECORD Last administered on 08/02 11:43; Start 08/02/16 at 02:45 Piperacillin Sod/ Tazobactam Sod/ Sodium Chloride (Zosyn/Iv Sodium Chloride 0.9 % 50ml) 50 ml @ 100 mls/hr Q6HRS IV Last administered on 08/02/16 13:17; Start 08/02/16 at 12:00; Stop 08/02/16 at 15:43; Status DC Vancomycin HCl 1 each 1 each PRN DAILY PRN MC SEE COMMENTS Last administered on 08/02/16 13:20; Start 08/02/16 at 11:45; Stop 08/03/16 at 15:24; Status DC Vancomycin HCl 2 gm/Sodium Chloride 500 ml @ 250 mls/hr 1X ONCE IV Last administered on 08/02/16 11:52; Start 08/02/16 at 12:00; Stop 08/02/16 at 13:59 ; Status DC Sodium Chloride (Iv Sodium Chloride 0.9% 500ml Bag) 500 ml @ 500 mls/hr 1X ONCE IV Last administered on 08/02/16 12:39; Start 08/02/16 at 12:45; Stop at 13:44; Status DC Vecuronium [place] (Norcuron Bolus) 10 mg 1X STAT IV Last administered on 08/02 13:34; Start 08/02/16 at 13:17; Stop 08/02/16 at 13:23; Status DC Vancomycin HCl 1 each 1 each 1X ONCE MC ; Start 08/03/16 at 23:30; Stop at 23:30; Status DC Vancomycin HCl 1.25 gm/Sodium Chloride 250 ml @ 167 mls/hr Q12H IV Last administered on 08/03/16 00:33; Start 08/03/16 at 00:00; Stop 08/03/16 at 11:07 ; Status DC Fentanyl Citrate (Fentanyl 600 Mcg/30 ml [employer]) 30 ml @ 0 mls/hr CONT PRN PRN IV PROTOCOL Last administered on 08/06/16 02:18; Start 08/02/16 at 13:30 Naloxone HCl 0.4 mg 0.4 mg PRN Q2MIN PRN IV SEE INSTRUCTIONS; Start 08/02/16 at 13:30 Micafungin Sodium 100 mg/Dextrose 100 ml @ 100 mls/hr Q24H IV Last administered on 08/06/16 17:00; Start 08/02/16 at 17:00 Lactated Ringer's 1,000 ml @ 1,000 mls/hr 1X ONCE IV Last administered on 15:45; Start 08/02/16 at 15:45; Stop 08/02/16 at 16:44; Status DC Piperacillin Sod/ Tazobactam Sod 4.5 gm/Sodium Chloride 100 ml @ 200 mls/hr Q6HRS IV Last administered on 08/03/16 12:00; Start 08/02/16 at 18:00; Stop at 14:02; Status DC Albumin Human (Plasmanate) 500 ml @ 125 mls/hr 1X ONCE IV Last administered on 08/02/16 20:37; Start 08/02/16 at 20:30; Stop 08/03/16 at 00:29; Status DC Furosemide (Lasix) 40 mg 1X ONCE IVP Last administered on 08/03/16 00:16; Start 08/02/16 at 20:30; Stop 08/02/16 at 20:31; Status DC Acetaminophen (Tylenol) 650 mg 1X ONCE NG Last administered on 08/03/16 02:03 ; Start 08/03/16 at 02:15; Stop 08/03/16 at 02:16; Status DC Ketorolac Tromethamine 15 mg 15 mg 1X ONCE IV Last administered on 08/03/16 02:03; Start 08/03/16 at 02:15; Stop 08/03/16 at 02:16; Status DC Lactated Ringer's (Iv Lactated Ringers) 500 ml @ 500 mls/hr 1X ONCE IV Last administered on 08/03/16 10:15; Start 08/03/16 at 10:15; Stop 08/03/16 at 11:14 ; Status DC Sodium Bicarbonate 50 meq 1X ONCE IV Last administered on 08/03/16 10:44; Start 08/03/16 at 10:15; Stop 08/03/16 at 10:20; Status DC Calcium Gluconate 1000 mg 1,000 mg 1X ONCE IVP ; Start 08/03/16 at 12:15; Stop 08/03/16 at 12:16; Status DC Sodium Bicarbonate 150 meq/Dextrose/ Sodium Chloride 1,150 ml @ 100 mls/hr [id number] PRN IV .; Start 08/03/16 at 12:30; Stop 08/03/16 at 13:03; Status DC Magnesium Sulfate/ Dextrose 50 ml @ 25 mls/hr PRN DAILY PRN IV for Mag < 1.7 on am labs; Start 08/03/16 at 12:30 Sodium Bicarbonate 150 meq/Dextrose 1,150 ml @ 100 mls/hr [id number] IV Last administered on 08/04/16 04:31; Start 08/03/16 at 13:30; Stop 08/04/16 at 08:31 ; Status DC Calcium Chloride 2000 mg/Sodium Chloride 120 ml @ 240 mls/hr 1X ONCE IV Last administered on 08/03/16 13:30; Start 08/03/16 at 13:30; Stop 08/03/16 at 13:59 ; Status DC Piperacillin Sod/ Tazobactam Sod/ Sodium Chloride (Zosyn/Iv Sodium Chloride 0.9 % 50ml) 50 ml @ 100 mls/hr Q6HRS IV Last administered on 08/07/16 11:36; Start 08/03/16 at 18:00 Heparin Sodium (Porcine) (Heparin Sodium) 10,000 unit STK-MED ONCE .ROUTE ; Start 08/03/16 at 14:31; Stop 08/03/16 at 14:32; Status DC Lidocaine/Sodium Bicarbonate (Buffered Lidocaine 1%) 20 ml STK-MED ONCE IJ ; Start 08/03/16 at 14:31; Stop 08/03/16 at 14:32; Status DC Heparin Sodium/ Sodium Chloride 60 unit 1X ONCE IV Last administered on 16:17; Start 08/03/16 at 14:45; Stop 08/03/16 at 14:46; Status DC Heparin Sodium (Porcine) (Heparin Sodium) 2,500 unit 1X ONCE INT CAT Last administered on 08/03/16 16:16; Start 08/03/16 at 14:45; Stop 08/03/16 at 14:46 ; Status DC Lidocaine/Sodium Bicarbonate (Buffered Lidocaine 1%) 3 ml 1X ONCE IJ Last administered on 08/03/16 16:16; Start 08/03/16 at 14:45; Stop 08/03/16 at 14:46 ; Status DC Fentanyl Citrate (Fentanyl 2ml Vial) 25 mcg PRN Q5MIN PRN IV MILD PAIN; Start 08/04/16 at 07:00; Stop 08/05/16 at 06:59; Status DC Fentanyl Citrate (Fentanyl 2ml Vial) 50 mcg PRN Q5MIN PRN IV MODERATE PAIN; Start 08/04/16 at 07:00; Stop 08/05/16 at 06:59; Status DC Morphine Sulfate 1 mg 1 mg PRN Q10MIN PRN IV SEVERE PAIN; Start 08/04/16 at 07: 00; Stop 08/05/16 at 06:59; Status DC Lactated Ringer's (Iv Lactated Ringers) 1,000 ml @ 0 mls/hr Q0M IV ; Start at 07:00; Stop 08/04/16 at 18:59; Status DC Lidocaine HCl 2 ml PRN 1X PRN ID PRIOR TO IV START; Start 08/04/16 at 07:00; Stop 08/05/16 at 06:59; Status DC Hydromorphone HCl (Dilaudid) 0.5 mg PRN Q10MIN PRN IV SEV PAIN, Second choice; Start 08/04/16 at 07:00; Stop 08/05/16 at 06:59; Status DC Famotidine (Pepcid) 20 mg DAILY IVP Last administered on 08/05/16 07:43; Start 08/04/16 at 09:00; Stop 08/06/16 at 07:05; Status DC Insulin Aspart (Novolog) 0-7 UNITS TIDWMEALS SQ Last administered on 08/07/16 11:38; Start 08/03/16 at 19:00 Dextrose 12.5 gm 12.5 gm PRN Q15MIN PRN IV SEE COMMENTS; Start 08/03/16 at 18: 30 Sodium Chloride 1,000 ml @ 1,000 mls/hr Q1H PRN IV hypotension; Start 08/03/16 at 18:33; Stop 08/04/16 at 00:32; Status DC Sodium Chloride (Iv Sodium Chloride 0.9% 1000ml Bag) 1,000 ml @ 400 mls/hr Q2H30M PRN IV PATENCY; Start 08/03/16 at 18:33; Stop 08/04/16 at 06:32; Status DC Info 1 each 1 each PRN DAILY PRN MC SEE COMMENTS; Start 08/03/16 at 18:45; Stop 08/06/16 at 09:01; Status DC Sodium Chloride 1,000 ml @ 1,000 mls/hr Q1H PRN IV hypotension; Start 08/04/16 at 07:44; Stop 08/04/16 at 13:43; Status DC Albumin Human (Albuminar) 200 ml @ 200 mls/hr 1X PRN PRN IV Hypotension Last administered on 08/04/16 08:48; Start 08/04/16 at 07:45; Stop 08/04/16 at 13:44 ; Status DC Diphenhydramine HCl (Benadryl) 25 mg 1X PRN PRN IV ITCHING; Start 08/04/16 at 07:45; Stop 08/05/16 at 07:44; Status DC Diphenhydramine HCl (Benadryl) 25 mg 1X PRN PRN IV ITCHING; Start 08/04/16 at 07:45; Stop 08/05/16 at 07:44; Status DC Sodium Chloride (Normal Saline Flush) 10 ml 1X PRN PRN IV AP catheter pack; Start 08/04/16 at 07:45; Stop 08/05/16 at 07:44; Status DC Sodium Chloride 10 ml 10 ml 1X PRN PRN 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; Start 08/04/16 at 07:45; Stop 08/05/16 at 07:44; Status DC Sodium Chloride (Iv Sodium Chloride 0.9% 1000ml Bag) 1,000 ml @ 400 mls/hr Q2H30M PRN IV PATENCY; Start 08/04/16 at 07:44; Stop 08/04/16 at 19:43; Status DC Info (PHARMACY MONITORING -- do not chart) 1 each PRN DAILY PRN MC SEE COMMENTS ; Start 08/04/16 at 07:45; Stop 08/06/16 at 09:02; Status DC Heparin Sodium (Porcine) 5,000 unit Q12HR SQ Last administered on 08/07/16 07: 45; Start 08/04/16 at 21:00 Sevelamer Carbonate 2.4 gm 2.4 gm BID FT Last administered on 08/07/16 07:26; Start 08/05/16 at 10:00 Sodium Chloride 1,000 ml @ 1,000 mls/hr Q1H PRN IV hypotension; Start 08/05/16 at 12:28; Stop 08/05/16 at 18:27; Status DC Albumin Human (Albuminar) 200 ml @ 200 mls/hr 1X PRN PRN IV Hypotension; Start 08/05/16 at 12:30; Stop 08/05/16 at 18:29; Status DC Sodium Chloride (Normal Saline Flush) 10 ml 1X PRN PRN IV AP catheter pack; Start 08/05/16 at 12:30; Stop 08/06/16 at 12:29; Status DC Sodium Chloride 10 ml 10 ml 1X PRN PRN 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; Start 08/05/16 at 12:30; Stop 08/06/16 at 12:29; Status DC Sodium Chloride (Iv Sodium Chloride 0.9% 1000ml Bag) 1,000 ml @ 400 mls/hr Q2H30M PRN IV PATENCY; Start 08/05/16 at 12:28; Stop 08/06/16 at 00:27; Status DC Info 1 each 1 each PRN DAILY PRN MC SEE COMMENTS; Start 08/05/16 at 12:30 Propofol (Diprivan) 20 ml @ As Directed STK-MED ONCE IV ; Start 08/05/16 at 13: 01; Stop 08/05/16 at 13:02; Status DC Rocuronium [place] (Zemuron) 50 mg STK-MED ONCE .ROUTE ; Start 08/05/16 at 13:01 ; Stop 08/05/16 at 13:02; Status DC Dexamethasone Sodium Phosphate (Decadron) 20 mg STK-MED ONCE .ROUTE ; Start at 13:05; Stop 08/05/16 at 13:06; Status DC Famotidine (Pepcid) 20 mg STK-MED ONCE .ROUTE ; Start 08/05/16 at 13:05; Stop at 13:06; Status DC Ondansetron HCl (Zofran) 4 mg STK-MED ONCE .ROUTE ; Start 08/05/16 at 13:05; Stop 08/05/16 at 13:06; Status DC Midazolam HCl (Versed) 2 mg STK-MED ONCE .ROUTE ; Start 08/05/16 at 13:13; Stop 08/05/16 at 13:14; Status DC Vasopressin (Vasostrict) 20 unit STK-MED ONCE .ROUTE ; Start 08/05/16 at 13:58; Stop 08/05/16 at 13:59; Status DC Sodium Chloride (Sodium Chloride) 50 ml STK-MED ONCE IJ ; Start 08/05/16 at 13: 58; Stop 08/05/16 at 13:59; Status DC Sevoflurane (Ultane) 60 ml STK-MED ONCE IH ; Start 08/05/16 at 14:29; Stop 08/05 at 14:30; Status DC Alprazolam (Xanax) 0.25 mg PRN Q8HRS PRN PEG ANXIETY / AGITATION Last administered on 08/07/16 07:26; Start 08/05/16 at 14:45 Lidocaine HCl (Xylocaine-Mpf 1% Vial) 5 ml STK-MED ONCE INJ Last administered on 08/05/16 14:55; Start 08/05/16 at 14:55; Stop 08/05/16 at 15:11; Status DC Pantoprazole Sodium 40 mg 40 mg DAILYAC IVP Last administered on 08/07/16 07: 24; Start 08/06/16 at 07:30 Linezolid 300 ml @ 300 mls/hr Q12HR IV Last administered on 08/07/16 07:24; Start 08/06/16 at 11:30 Sodium Chloride 1,000 ml @ 1,000 mls/hr Q1H PRN IV hypotension; Start 08/06/16 at 13:17; Stop 08/06/16 at 19:16; Status DC Sodium Chloride (Iv Sodium Chloride 0.9% 1000ml Bag) 1,000 ml @ 400 mls/hr Q2H30M PRN IV PATENCY; Start 08/06/16 at 13:17; Stop 08/07/16 at 01:16; Status DC Info (PHARMACY MONITORING -- do not chart) 1 each PRN DAILY PRN MC SEE COMMENTS ; Start 08/06/16 at 13:30; Status UNV Darbepoetin Nick (Aranesp) 60 mcg [id number] SQ ; Start 08/07/16 at 21:00 Active Scripts Active Reported Amlodipine Besylate 5 Mg Tablet 5 Mg PO DAILY Pradaxa (Dabigatran Etexilate Mesylate) 150 Mg Capsule 1 Cap PO BID Metoprolol Succinate ( Xl ) (Metoprolol Succinate) 100 Mg Tab.er.24h 1 Tab PO DAILY Vitals/I & O Vital Sign - Last 24 Hours 08/06/16 08/06/16 08/06/16 08/06/16 12:29 13:00 14:02 15:00 Pulse 96 101 103 Resp 14 20 B/P 139/69 115/65 120/73 Pulse Ox 99 97 97 97 O2 Delivery Ventilator Ventilator Ventilator Ventilator 08/06/16 08/06/16 08/06/16 08/06/16 15:55 16:00 16:00 16:00 Temp 98.6 98.6 Pulse 105 105 Resp 20 B/P 136/79 Pulse Ox 99 100 O2 Delivery Ventilator Mechanical Ventilator Ventilator 08/06/16 08/06/16 08/06/16 08/06/16 17:00 17:47 18:00 19:00 Pulse 103 83 92 Resp B/P 106/53 128/61 143/67 Pulse Ox 97 99 91 97 O2 Delivery Ventilator Ventilator Ventilator Ventilator 08/06/16 08/06/16 08/06/16 08/06/16 20:00 20:00 20:00 20:02 Temp 96.3 96.3 Pulse 92 92 Resp 26 B/P 168/78 168/78 Pulse Ox 98 98 O2 Delivery Mechanical Ventilator Ventilator Ventilator 08/06/16 08/06/16 08/06/16 08/06/16 21:00 21:04 21:05 22:00 Pulse 107 97 107 89 Resp 27 23 B/P 169/77 161/77 174/79 146/72 Pulse Ox 100 97 O2 Delivery Ventilator Ventilator 08/06/16 08/06/16 08/07/16 08/07/16 22:15 23:00 00:00 00:00 Temp 97.8 97.8 Pulse 96 95 Resp B/P 137/70 136/63 Pulse Ox 96 98 96 O2 Delivery Ventilator Ventilator Mechanical Ventilator Ventilator 08/07/16 08/07/16 08/07/16 08/07/16 00:10 01:00 02:00 02:48 Pulse 93 85 Resp 21 24 B/P 148/68 135/65 Pulse Ox 97 97 98 99 O2 Delivery Ventilator Ventilator Ventilator Ventilator 08/07/16 08/07/16 08/07/16 08/07/16 03:00 04:00 04:30 05:00 Temp 98.3 98.3 Pulse 88 83 78 Resp 13 21 15 B/P 132/71 136/68 136/67 Pulse Ox 100 98 98 O2 Delivery Ventilator Ventilator Mechanical Ventilator Ventilator 08/07/16 08/07/16 08/07/16 08/07/16 05:25 06:00 07:00 07:25 Pulse 89 95 95 Resp 24 22 B/P 149/74 149/75 143/75 Pulse Ox 98 98 98 O2 Delivery Ventilator Ventilator Ventilator 08/07/16 08/07/16 08/07/16 08/07/16 07:25 08:00 08:00 08:00 Temp 98.6 98.6 Pulse 95 98 77 Resp 22 B/P 143/75 112/59 116/59 Pulse Ox 99 O2 Delivery Ventilator Mechanical Ventilator 08/07/16 08/07/16 08/07/16 08/07/16 08:42 09:00 10:00 11:00 Pulse 80 80 78 Resp 30 25 30 B/P 120/56 125/51 118/54 Pulse Ox 100 99 99 99 O2 Delivery Ventilator Ventilator Ventilator T-Tube 08/07/16 11:17 Pulse Ox 100 O2 Delivery T-Tube O2 Flow Rate 10.0 Intake and Output 08/06/16 08/06/16 08/07/16 15:00 23:00 07:00 Intake Total 424 ml 465 ml 820 ml Output Total 88 ml 24 ml 0 ml Balance 336 ml 441 ml 820 ml MILA JEWELL MD Aug 07, 2016 12:10
[2016-08-07 12:11] LABS: HCO3 ABG 21 mmol/L (21-28); PCO2 ABG 34 mmHg (35-46); PH ABG 7.42 (7.35-7.45); PO2 ABG 128 mmHg (75-108); SAT O2 ABG 98 % (92-99)
[2016-08-07 12:15] LABS: FIO2 ABG 40 t tube
--- NOTE | 2016-08-07 14:28 | PDOC ---
Progress Note Subjective Subjective Out of the bed to a chair yesterday and today. Did well with T-collar. Tube feeds at goal. Insomnia an issue. No dialysis today. 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 SKIN: No rash IV: ok Labs Lab Laboratory Tests Test 08/06/16 16:57 08/06/16 23:34 08/07/16 05:00 08/07/16 11:35 Glucose (Fingerstick) 158mg/dL (70-99) 195mg/dL (70-99) 184mg/dL (70-99) Sodium Level 143mmol/L (136-145) Potassium Level 4.2mmol/L (3.5-5.1) Chloride Level 102mmol/L (98-107) Carbon Dioxide Level 29mmol/L (21-32) Anion Gap 12 (6-14) Blood Urea Nitrogen 75mg/dL (8-26) Creatinine 3.3mg/dL (0.7-1.3) Estimated GFR (Cockcroft-Gault) 19.4 Glucose Level 165mg/dL (70-99) Calcium Level 7.9mg/dL (8.5-10.1) Phosphorus Level 6.3mg/dL (2.6-4.7) Albumin 2.4g/dL (3.4-5.0) Test 08/07/16 12:05 O2 Saturation 98% (92-99) Arterial Blood pH 7.42 (7.35-7.45) Arterial Blood pCO2 at Patient Temp 34mmHg (35-46) Arterial Blood pO2 at Patient Temp 128mmHg (75-108) Arterial Blood HCO3 21mmol/L (21-28) Arterial Blood Base Excess -3mmol/L (-3-3) FiO2 40 t tube Objective Assessment Status post CABG 3 for severe ischemic cardiomyopathy, large anterior STEMI with troponin of 100, with early postoperative myocardial infarction/V. fib, leading to cardiogenic shock, placement of the vein graft to the LAD and impella for mechanical circulatory support and open chest. Sternotomy has been closed and the LVAD has been removed. The patient subsequently developed septic shock of unknown etiology. He has now recovered from sepsis although he did develop acute renal failure requiring dialysis. Now s/p trach/PEG. Out of the bed to a chair yesterday and today. Did well with T-collar. Tube feeds at goal. Insomnia an issue. No dialysis today. Plan Plan of Care Consider weaning to trach shield PT consult-needs to slowly start ambulating Range of motion exercises D/c a-line Dialysis per nephrology Transfer to LT[facility] this week OLGA LOPEZ MD Aug 07, 2016 14:28
--- NOTE | 2016-08-07 14:42 | PDOC ---
PROGRESS NOTES Subjective Subjective Patient seen and examined Objective Objective Vital Signs Date Time Temp Pulse Resp B/P Pulse Ox O2 Delivery O2 Flow Rate FiO2 08/07/16 13:00 87 18 119/62 99 Ventilator 08/07/16 12:00 98.7 98.7 08/07/16 11:17 10.0 Intake and Output 08/07/16 07:00 Intake Total 1709 ml Output Total 112 ml Balance 1597 ml IV Total 369 ml Tube Feeding 1020 ml Other 320 ml Output Urine Total 112 ml Physical Exam Abdomen: Normal bowel sounds Heart: Regular rate Extremities: No clubbing General: mild distress Assessment Assessment Problems Medical Problems: (1) CAD (coronary artery disease), ione coronary artery Status: Acute (2) Chest pain Status: Acute (3) STEMI (ST elevation myocardial infarction) Status: Acute 1. STEMI CABG on 07/25/2016 with FLETCHER to LAD; SVG to LAD; SVG to OM1 and SVG to RPDA VF arrest post-op with post-op ME continue amiodarone, no significant ectopies overnight 2. Cardiogenic shock LVEF ~ 25-30% post CABG BP adequate and stable. Off pressors. If BP continues to trend much higher then will uptitrate po BB. ACEi on hold currently with JAKE. 3. ischemic cardiomyopathy/anasarca LVEF mildly depressed @ 45% on echo pre-op then decreased as above Fluid off loading per HD Compensated 4. acute respiratory failure S/P trach, tolerated procedure, now on CPAP PEG is also in placed 5. JAKE continues on HD per nephrology 6. sepsis abx per ID CT chest/abd/pelvis 08/03/16 with perihepatic fluid; fluid in the paracolic gutter and anasarca suggested CT chest suggestive of atelectasis or pneumonia 7. HLD statin therapy 8. atrial fib remains controlled Unable to be aggressive with OAC due to #9 9. small right frontal SDH decreased on CT scan done 08/03/2016 10. metabolic encephalopathy improved Comment Review of Relevant I have reviewed the following items leonidas (where applicable) has been applied. Labs Laboratory Tests Test 08/05/16 17:07 08/05/16 23:45 08/06/16 05:40 08/06/16 08:00 Glucose (Fingerstick) 147mg/dL (70-99) 156mg/dL (70-99) White Blood Count 7.1x10^3/uL (4.0-11.0) Red Blood Count 2.50x10^6/uL (4.30-5.70) Hemoglobin 8.0g/dL (13.0-17.5) Hematocrit 23.7% (39.0-53.0) Mean Corpuscular Volume 95fL (79-100) Mean Corpuscular Hemoglobin 32pg (25-35) Mean Corpuscular Hemoglobin Concent 34g/dL (31-37) Red Cell Distribution Width 16.3% (11.5-14.5) Platelet Count 92x10^3/uL (140-400) Neutrophils (%) (Auto) 94% (31-73) Lymphocytes (%) (Auto) 2% (24-48) Monocytes (%) (Auto) 4% (0-9) Eosinophils (%) (Auto) 0% (0-3) Basophils (%) (Auto) 0% (0-3) Neutrophils # (Auto) 6.6x10^3uL (1.8-7.7) Lymphocytes # (Auto) 0.2x10^3/uL (1.0-4.8) Monocytes # (Auto) 0.3x10^3/uL (0.0-1.1) Eosinophils # (Auto) 0.0x10^3/uL (0.0-0.7) Basophils # (Auto) 0.0x10^3/uL (0.0-0.2) Sodium Level 143mmol/L (136-145) Potassium Level 5.2mmol/L (3.5-5.1) Chloride Level 104mmol/L (98-107) Carbon Dioxide Level 28mmol/L (21-32) Anion Gap 11 (6-14) Blood Urea Nitrogen 70mg/dL (8-26) Creatinine 3.3mg/dL (0.7-1.3) Estimated GFR (Cockcroft-Gault) 19.4 Glucose Level 154mg/dL (70-99) Calcium Level 7.8mg/dL (8.5-10.1) Phosphorus Level 7.9mg/dL (2.6-4.7) Total Bilirubin 3.9mg/dL (0.2-1.0) Direct Bilirubin 3.0mg/dL (0.0-0.2) Aspartate Amino Transf (AST/SGOT) 42U/L (15-37) Alanine Aminotransferase (ALT/SGPT) 75U/L (16-63) Alkaline Phosphatase 76U/L (46-116) Total Protein 5.9g/dL (6.4-8.2) Albumin 2.4g/dL (3.4-5.0) O2 Saturation 96% (92-99) Arterial Blood pH 7.39 (7.35-7.45) Arterial Blood pCO2 at Patient Temp 39mmHg (35-46) Arterial Blood pO2 at Patient Temp 91mmHg (75-108) Arterial Blood HCO3 23mmol/L (21-28) Arterial Blood Base Excess -2mmol/L (-3-3) FiO2 40 Test 08/06/16 11:08 08/06/16 16:57 08/06/16 23:34 08/07/16 05:00 Glucose (Fingerstick) 159mg/dL (70-99) 158mg/dL (70-99) 195mg/dL (70-99) Sodium Level 143mmol/L (136-145) Potassium Level 4.2mmol/L (3.5-5.1) Chloride Level 102mmol/L (98-107) Carbon Dioxide Level 29mmol/L (21-32) Anion Gap 12 (6-14) Blood Urea Nitrogen 75mg/dL (8-26) Creatinine 3.3mg/dL (0.7-1.3) Estimated GFR (Cockcroft-Gault) 19.4 Glucose Level 165mg/dL (70-99) Calcium Level 7.9mg/dL (8.5-10.1) Phosphorus Level 6.3mg/dL (2.6-4.7) Albumin 2.4g/dL (3.4-5.0) Test 08/07/16 11:35 08/07/16 12:05 Glucose (Fingerstick) 184mg/dL (70-99) O2 Saturation 98% (92-99) Arterial Blood pH 7.42 (7.35-7.45) Arterial Blood pCO2 at Patient Temp 34mmHg (35-46) Arterial Blood pO2 at Patient Temp 128mmHg (75-108) Arterial Blood HCO3 21mmol/L (21-28) Arterial Blood Base Excess -3mmol/L (-3-3) FiO2 40 t tube Laboratory Tests Test 08/06/16 16:57 08/06/16 23:34 08/07/16 05:00 08/07/16 11:35 Glucose (Fingerstick) 158mg/dL (70-99) 195mg/dL (70-99) 184mg/dL (70-99) Sodium Level 143mmol/L (136-145) Potassium Level 4.2mmol/L (3.5-5.1) Chloride Level 102mmol/L (98-107) Carbon Dioxide Level 29mmol/L (21-32) Anion Gap 12 (6-14) Blood Urea Nitrogen 75mg/dL (8-26) Creatinine 3.3mg/dL (0.7-1.3) Estimated GFR (Cockcroft-Gault) 19.4 Glucose Level 165mg/dL (70-99) Calcium Level 7.9mg/dL (8.5-10.1) Phosphorus Level 6.3mg/dL (2.6-4.7) Albumin 2.4g/dL (3.4-5.0) Test 08/07/16 12:05 O2 Saturation 98% (92-99) Arterial Blood pH 7.42 (7.35-7.45) Arterial Blood pCO2 at Patient Temp 34mmHg (35-46) Arterial Blood pO2 at Patient Temp 128mmHg (75-108) Arterial Blood HCO3 21mmol/L (21-28) Arterial Blood Base Excess -3mmol/L (-3-3) FiO2 40 t tube Microbiology 08/02/16 Blood Culture - Preliminary, Resulted NO GROWTH AFTER 4 DAYS 08/03/16 Sputum Culture - Final, Complete 08/03/16 Sputum Result 1 - Final, Complete 08/03/16 Sputum Result 2 - Final, Complete 08/03/16 Antimicrobic Susceptibility - Final, Complete 08/02/16 Urine Culture - Final, Complete 08/02/16 Urine Culture Result 1 (MILEY) - Final, Complete 08/03/16 Gram Stain - Final, Complete Medications Current Medications Nitroglycerin 0.4 mg 0.4 mg PRN Q5MIN PRN SL CP RATING > 10; Start 07/20/16 at 09:45; Stop 07/20/16 at 15:05; Status DC Nitroglycerin/ Dextrose (Nitroglycerin Drip) 250 ml @ 3 mls/hr 1X ONCE IV Last administered on 07/20/16 10:02; Start 07/20/16 at 10:30; Stop 07/23/16 at 21: 49; Status DC Morphine Sulfate 2 mg PRN Q15MIN PRN IV/SQ PAIN GREATER THAN 3/10; Start at 09:45; Stop 07/21/16 at 09:44; Status DC Ondansetron HCl (Zofran) 4 mg PRN Q8HRS PRN IV NAUSEA/VOMITING; Start 07/20/16 at 12:30; Stop 07/20/16 at 13:36; Status DC Morphine Sulfate 2 mg 2 mg PRN Q2HR PRN IV PAIN; Start 07/20/16 at 12:30; Stop 07/21/16 at 12:29; Status DC Heparin Sodium/ Dextrose 500 ml @ 0 mls/hr CONT PRN IV . Last administered on 10:32; Start 07/20/16 at 13:00; Stop 07/21/16 at 14:50; Status DC Metoprolol Tartrate (Lopressor) 5 mg Q6HRS IVP ; Start 07/20/16 at 13:00; Stop at 14:53; Status DC Aspirin (Ecotrin) 325 mg [id number] PO Last administered on 07/21/16 08:11; Start 07/20/16 at 13:00; Stop 07/21/16 at 17:20; Status DC Ondansetron HCl (Zofran) 4 mg PRN Q6HRS PRN IV NAUSEA/VOMITING; Start 07/20/16 at 13:35; Stop 07/26/16 at 11:41; Status DC Acetaminophen (Tylenol) 500 mg PRN Q6HRS PRN PO MILD PAIN / TEMP Last administered on 07/29/16 09:55; Start 07/20/16 at 13:45; Stop 07/29/16 at 13:38 ; Status DC Docusate Sodium (Colace) 100 mg DAILY PO Last administered on 07/29/16 09:54; Start 07/20/16 at 15:00; Stop 07/29/16 at 10:03; Status DC Iohexol 100 ml 100 ml STK-MED ONCE .ROUTE ; Start 07/20/16 at 12:40; Stop at 13:44; Status DC Heparin Sodium/ Sodium Chloride 1,000 ml @ As Directed STK-MED ONCE .ROUTE ; Start 07/20/16 at 12:41; Stop 07/20/16 at 13:44; Status DC Lidocaine HCl 20 ml STK-MED ONCE .ROUTE ; Start 07/20/16 at 12:41; Stop 07/20/16 at 13:44; Status DC Fentanyl Citrate (Fentanyl 2ml Vial) 100 mcg STK-MED ONCE .ROUTE ; Start at 13:42; Stop 07/20/16 at 13:45; Status DC Midazolam HCl (Versed) 2 mg STK-MED ONCE .ROUTE ; Start 07/20/16 at 13:42; Stop 07/20/16 at 13:45; Status DC Heparin Sodium/ Sodium Chloride 1,000 unit 1X ONCE IART Last administered on 14:29; Start 07/20/16 at 14:00; Stop 07/20/16 at 14:01; Status DC Heparin Sodium/ Sodium Chloride 1,000 unit 1X ONCE IART Last administered on 14:29; Start 07/20/16 at 14:00; Stop 07/20/16 at 14:01; Status DC Midazolam HCl (Versed) 2 mg 1X ONCE IV Last administered on 07/20/16 14:28; Start 07/20/16 at 14:00; Stop 07/20/16 at 14:01; Status DC Fentanyl Citrate (Fentanyl 2ml Vial) 100 mcg 1X ONCE IV Last administered on 14:28; Start 07/20/16 at 14:00; Stop 07/20/16 at 14:01; Status DC Iohexol (Omnipaque 300 Mg/ml) 100 ml 1X ONCE IART Last administered on 14:29; Start 07/20/16 at 14:00; Stop 07/20/16 at 14:01; Status DC Lidocaine HCl 20 ml 1X ONCE IJ Last administered on 07/20/16 14:29; Start 07/20 at 14:00; Stop 07/20/16 at 14:01; Status DC Midazolam HCl (Versed) 2 mg STK-MED ONCE .ROUTE ; Start 07/20/16 at 14:15; Stop 07/20/16 at 14:16; Status DC Sodium Chloride 3 ml 3 ml QSHIFT PRN IV AFTER MEDS AND BLOOD DRAWS; Start at 14:45; Stop 07/29/16 at 13:51; Status DC Sodium Chloride (Iv Sodium Chloride 0.9% 1000ml Bag) 1,000 ml @ 60 mls/hr [id number] IV Last administered on 07/20/16 14:44; Start 07/20/16 at 14:44; Stop at 00:43; Status DC Metoprolol Tartrate (Lopressor) 12.5 mg BID PO ; Start 07/20/16 at 21:00; Stop at 21:00; Status DC Lisinopril (Prinivil) 5 mg DAILY PO Last administered on 07/20/16 16:25; Start 07/20/16 at 15:00; Stop 07/20/16 at 17:21; Status DC Atorvastatin Calcium (Lipitor) 20 mg QHS PO Last administered on 07/20/16 20:33 ; Start 07/20/16 at 21:00; Stop 07/21/16 at 08:11; Status DC Nitroglycerin (Nitrostat) 0.4 mg PRN Q5MIN PRN SL CHEST PAIN Last administered on 07/25/16 04:55; Start 07/20/16 at 14:45; Stop 07/26/16 at 11:41; Status DC Hydralazine HCl (Apresoline) 10 mg PRN Q4HRS PRN IVP ELEVATED BP, SEE COMMENTS Last administered on 07/31/16 10:58; Start 07/20/16 at 17:15; Stop 07/31/16 at 13:31; Status DC Metoprolol Tartrate (Lopressor) 50 mg BID PO Last administered on 07/22/16 08: 31; Start 07/20/16 at 21:00; Stop 07/22/16 at 19:03; Status DC Alprazolam (Xanax) 0.25 mg PRN Q8HRS PRN PO ANXIETY / AGITATION Last administered on 07/24/16 21:34; Start 07/20/16 at 17:30; Stop 07/29/16 at 13:38; Status DC Heparin Sodium (Porcine) 2050 unit 2,050 unit PRN Q6HRS PRN IV FOR UFH LEVEL LESS THAN 0.2 Last administered on 07/21/16 04:24; Start 07/20/16 at 19:45; Stop 07/26/16 at 08:55; Status DC Heparin Sodium/ Dextrose 500 ml @ 19.4 mls/hr CONT PRN IV SEE I/O RECORD; Start 07/20/16 at 19:45; Stop 07/21/16 at 16:24; Status DC Heparin Sodium (Porcine) (Heparin Sodium) 2,050 unit PRN Q6HRS PRN IV FOR UFH LEVEL LESS THAN 0.2; Start 07/20/16 at 19:45; Status UNV Atorvastatin Calcium (Lipitor) 40 mg QHS PO Last administered on 08/06/16 21: 04; Start 07/21/16 at 21:00 Iodixanol (Visipaque 320) 200 ml STK-MED ONCE .ROUTE ; Start 07/20/16 at 14:00; Stop 07/21/16 at 08:26; Status DC Zolpidem Tartrate (Ambien) 5 mg PRN QHS PRN PO INSOMNIA, MAY REPEAT IN 1HR; Start 07/21/16 at 15:30; Stop 07/29/16 at 13:38; Status DC Metoprolol Tartrate 25 mg 25 mg 1X ONCE PO ; Start 07/22/16 at 06:00; Stop at 06:02; Status DC Cefazolin Sodium/ Dextrose 50 ml @ 100 mls/hr 1X ONCE IV ; Start 07/22/16 at 06 :00; Stop 07/22/16 at 06:29; Status DC Heparin Sodium/ Dextrose 500 ml @ 0 mls/hr CONT PRN IV SEE I/O RECORD Last administered on 07/24/16 01:40; Start 07/21/16 at 16:30; Stop 07/26/16 at 08:55; Status DC Lidocaine HCl 2 ml 2 ml 1X PRN PRN ID IV START; Start 07/25/16 at 06:00; Stop 07/26/16 at 05:59; Status Cancel Lactated Ringer's (Iv Lactated Ringers) 1,000 ml @ 0 mls/hr Q0M IV Last administered on 07/25/16t 07:30; Start 07/25/16 at 06:00; Stop 07/25/16 at 17:59 ; Status DC Fentanyl Citrate (Fentanyl 2ml Vial) 25 mcg PRN Q5MIN PRN IV Acute Pain; Start 07/22/16 at 09:15; Stop 07/23/16 at 09:14; Status DC Morphine Sulfate 2 mg PRN Q10MIN PRN IV Mild Pain; Start 07/22/16 at 09:15; Stop 07/23/16 at 09:14; Status DC Hydromorphone HCl (Dilaudid) 0.4 mg PRN Q10MIN PRN IV Moderate to severe pain; Start 07/22/16 at 09:15; Stop 07/23/16 at 09:14; Status DC Ondansetron HCl (Zofran) 4 mg PRN Q6HRS PRN IV Nausea, 1st Choice; Start at 09:15; Stop 07/23/16 at 09:14; Status DC Prochlorperazine Edisylate (Compazine) 5 mg PRN Q6HRS PRN IV Nausea/Vomiting, 2nd Choice; Start 07/22/16 at 09:15; Stop 07/23/16 at 09:14; Status DC Ondansetron HCl (Zofran) 4 mg PRN Q6HRS PRN IV NAUSEA/VOMITING; Start 07/25/16 at 07:00; Stop 07/26/16 at 06:59; Status DC Fentanyl Citrate (Fentanyl 2ml Vial) 25 mcg PRN Q5MIN PRN IV MILD PAIN; Start 07/25/16 at 07:00; Stop 07/26/16 at 06:59; Status DC Fentanyl Citrate (Fentanyl 2ml Vial) 50 mcg PRN Q5MIN PRN IV MODERATE PAIN; Start 07/25/16 at 07:00; Stop 07/26/16 at 06:59; Status DC Morphine Sulfate 1 mg 1 mg PRN Q10MIN PRN IV SEVERE PAIN; Start 07/25/16 at 07: 00; Stop 07/25/16 at 20:28; Status DC Lactated Ringer's (Iv Lactated Ringers) 1,000 ml @ 0 mls/hr Q0M IV ; Start 01/31 at 07:00; Stop 07/25/16 at 18:59; Status Cancel Lidocaine HCl 2 ml PRN 1X PRN ID PRIOR TO IV START Last administered on 07:16; Start 07/25/16 at 07:00; Stop 07/26/16 at 06:59; Status DC Hydromorphone HCl (Dilaudid) 0.5 mg PRN Q10MIN PRN IV SEV PAIN, Second choice; Start 07/25/16 at 07:00; Stop 07/26/16 at 06:59; Status DC Prochlorperazine Edisylate 5 mg 5 mg PACU PRN PRN IV NAUSEA, MRX1; Start at 07:00; Stop 07/26/16 at 06:59; Status DC Cefazolin Sodium/ Dextrose (Ancef 2gm Premix) 50 ml @ 100 mls/hr 1X ONCE IV Last administered on 07/25/16 08:12; Start 07/25/16 at 06:00; Stop 07/25/16 at 06:29; Status DC Metoprolol Tartrate (Lopressor) 25 mg 1X ONCE PO ; Start 07/25/16 at 06:00; Stop 07/25/16 at 06:00; Status DC Metoprolol Tartrate (Lopressor) 2.5 mg 1X ONCE IVP Last administered on 16:30; Start 07/22/16 at 16:30; Stop 07/22/16 at 16:31; Status DC Digoxin (Lanoxin) 250 mcg 1X ONCE IV ; Start 07/22/16 at 18:30; Stop 07/22/16 at 18:42; Status DC Digoxin (Lanoxin) 500 mcg 1X ONCE IV Last administered on 07/22/16 18:47; Start 07/22/16 at 18:45; Stop 07/22/16 at 18:46; Status DC Metoprolol Tartrate (Lopressor) 75 mg BID PO Last administered on 07/24/16 21: 30; Start 07/22/16 at 21:00; Stop 07/25/16 at 13:12; Status DC Nitroglycerin 0.4 mg 0.4 mg PRN Q5MIN PRN SL CHEST PAIN; Start 07/23/16 at 12:00 ; Status UNV Heparin Sodium (Porcine) 21983 unit/Lactated Ringer's 1,020 ml @ 1,020 mls/hr 1X PERIOP ONCE IRR Last administered on 07/25/16t 08:46; Start 07/25/16 at 06: 00; Stop 07/25/16 at 06:59; Status DC Potassium Chloride 70 meq/ Sodium Bicarbonate 12.5 meq/Lidocaine HCl 24 ml/ Parenteral Electrolytes 571.5 ml @ 571.5 mls/ hr 1X PERIOP ONCE IRR ; Start at 06:00; Stop 07/25/16 at 06:59; Status DC Potassium Chloride/Sodium Bicarbonate/ Parenteral Electrolytes (Isolyte S) 520 ml @ 520 mls/hr 1X PERIOP ONCE IRR ; Start 07/25/16 at 06:00; Stop 07/25/16 at 06:59; Status DC Etomidate (Amidate) 20 mg STK-MED ONCE IV ; Start 07/25/16 at 06:08; Stop at 06:09; Status DC Phenylephrine HCl (-Synephrine Inj) 10 mg STK-MED ONCE .ROUTE ; Start at 06:08; Stop 07/25/16 at 06:09; Status DC Aminocaproic Acid (Amicar) 5,000 mg STK-MED ONCE IV ; Start 07/25/16 at 06:08; Stop 07/25/16 at 06:09; Status DC Heparin Sodium (Porcine) (Heparin Sodium) 10,000 unit STK-MED ONCE .ROUTE ; Start 07/25/16 at 06:10; Stop 07/25/16 at 06:11; Status DC Rocuronium [place] (Zemuron) 100 mg STK-MED ONCE .ROUTE ; Start 07/25/16 at 06: 11; Stop 07/25/16 at 06:12; Status DC Morphine Sulfate 4 mg STK-MED ONCE .ROUTE ; Start 07/25/16 at 06:59; Stop at 07:00; Status DC Morphine Sulfate 4 mg 4 mg 1X ONCE IV ; Start 07/25/16 at 07:15; Stop 07/25/16 at 07:16; Status DC Cefazolin Sodium/ Sodium Chloride (Ancef/Iv Sodium Chloride 0.9% 500ml Bag) 500 ml @ 500 mls/hr 1X PERIOP ONCE IRR Last administered on 07/25/16 08:46; Start 07/25/16 at 07:15; Stop 07/25/16 at 08:14; Status DC Cellulose 1 each STK-MED ONCE .ROUTE Last administered on 07/25/16 08:46; Start 07/25/16 at 07:07; Stop 07/25/16 at 07:08; Status DC Vancomycin HCl (Vanco) 10 gm STK-MED ONCE .ROUTE Last administered on 08:46; Start 07/25/16 at 07:07; Stop 07/25/16 at 07:08; Status DC Papaverine HCl 60 mg STK-MED ONCE .ROUTE Last administered on 07/25/16 08:46; Start 07/25/16 at 07:07; Stop 07/25/16 at 07:08; Status DC Aspirin (Aspirin) 300 mg STK-MED ONCE .ROUTE Last administered on 07/25/16 17: 25; Start 07/25/16 at 07:08; Stop 07/25/16 at 07:09; Status DC Sodium Chloride (Sodium Chloride) 50 ml STK-MED ONCE IJ Last administered on 08:46; Start 07/25/16 at 07:08; Stop 07/25/16 at 07:09; Status DC Midazolam HCl (Versed) 2 mg STK-MED ONCE .ROUTE ; Start 07/25/16 at 07:15; Stop 07/25/16 at 07:16; Status DC Ephedrine Sulfate 50 mg 50 mg STK-MED ONCE IV ; Start 07/25/16 at 07:16; Stop at 07:17; Status DC Nitroglycerin/ Dextrose (Nitroglycerin Drip) 250 ml @ As Directed STK-MED ONCE IV ; Start 07/25/16 at 07:16; Stop 07/25/16 at 07:17; Status DC Midazolam HCl (Versed) 2 mg STK-MED ONCE .ROUTE ; Start 07/25/16 at 07:18; Stop 07/25/16 at 07:19; Status DC Fentanyl Citrate (Fentanyl 2ml Vial) 100 mcg STK-MED ONCE .ROUTE ; Start at 07:19; Stop 07/25/16 at 07:20; Status DC Sufentanil Citrate (Sufenta) 100 mcg STK-MED ONCE .ROUTE ; Start 07/25/16 at 07: 19; Stop 07/25/16 at 07:20; Status DC Midazolam HCl (Versed) 2 mg 1X ONCE IV ; Start 07/25/16 at 08:00; Stop at 08:01; Status DC Dexamethasone Sodium Phosphate (Decadron) 20 mg STK-MED ONCE .ROUTE ; Start 01/31 at 07:58; Stop 07/25/16 at 07:59; Status DC Rocuronium [place] (Zemuron) 100 mg STK-MED ONCE .ROUTE ; Start 07/25/16 at 08: 52; Stop 07/25/16 at 08:53; Status DC Sufentanil Citrate (Sufenta) 100 mcg STK-MED ONCE .ROUTE ; Start 07/25/16 at 08: 53; Stop 07/25/16 at 08:54; Status DC Protamine Sulfate 250 mg STK-MED ONCE IV ; Start 07/25/16 at 10:43; Stop at 10:44; Status DC Rocuronium [place] 100 mg 100 mg STK-MED ONCE .ROUTE ; Start 07/25/16 at 10:52; Stop 07/25/16 at 10:53; Status DC Albumin Human 0 ml @ As Directed STK-MED ONCE IV ; Start 07/25/16 at 10:53; Stop 07/25/16 at 10:54; Status DC Amiodarone HCl/ Dextrose (Cordarone) 518 ml @ 34.53 mls/ hr 1X ONCE IV Last administered on 07/25/16t 18:52; Start 07/25/16 at 11:30; Stop 07/26/16 at 02:30 ; Status DC Sodium Bicarbonate 50 meq STK-MED ONCE .ROUTE ; Start 07/25/16 at 11:35; Stop at 11:36; Status DC Protamine Sulfate 50 mg STK-MED ONCE IV ; Start 07/25/16 at 12:31; Stop at 12:32; Status DC Amiodarone HCl (Cordarone) 150 mg STK-MED ONCE .ROUTE ; Start 07/25/16 at 12:37 ; Stop 07/25/16 at 12:38; Status DC Isoflurane (Isoflurane) 90 ml STK-MED ONCE IH ; Start 07/25/16 at 12:42; Stop at 12:43; Status DC Lidocaine HCl (Lidocaine HCl 2% Abboject) 100 mg STK-MED ONCE .ROUTE ; Start 01/31 at 13:07; Stop 07/25/16 at 13:08; Status DC Mannitol (Mannitol) 12.5 g STK-MED ONCE .ROUTE ; Start 07/25/16 at 13:07; Stop 07/25/16 at 13:08; Status DC Calcium Chloride 1,000 mg STK-MED ONCE IV ; Start 07/25/16 at 13:07; Stop at 13:08; Status DC Sodium Bicarbonate 50 meq 50 meq STK-MED ONCE .ROUTE ; Start 07/25/16 at 13:07; Stop 07/25/16 at 13:08; Status DC Albumin Human (Albuminar) 100 ml @ As Directed STK-MED ONCE IV ; Start at 13:07; Stop 07/25/16 at 13:08; Status DC Magnesium Sulfate 5 gm STK-MED ONCE .ROUTE ; Start 07/25/16 at 13:08; Stop 07/25 at 13:09; Status DC Heparin Sodium (Porcine) 86340 unit 30,000 unit STK-MED ONCE .ROUTE ; Start 01/31 at 13:08; Stop 07/25/16 at 13:09; Status DC Clevidipine (Cleviprex) 100 ml @ 0 mls/hr CONT PRN IV PER PROTOCOL; Start 07/25 at 13:45; Stop 07/26/16 at 11:29; Status DC Heparin Sodium (Porcine) 29793 unit 30,000 unit STK-MED ONCE .ROUTE ; Start 01/31 at 13:39; Stop 07/25/16 at 13:40; Status DC Epinephrine HCl/ Sodium Chloride (Adrenalin/Iv Sodium Chloride 0.9% 250ml) 254 ml @ 3.81 mls/hr CONT PRN IV SEE I/O RECORD; Start 07/25/16 at 13:45 Epinephrine HCl (Epinephrine Syringe) 1 mg STK-MED ONCE .ROUTE ; Start 07/25/16 at 13:52; Stop 07/25/16 at 13:53; Status DC Rocuronium [place] (Zemuron) 100 mg STK-MED ONCE .ROUTE ; Start 07/25/16 at 13: 57; Stop 07/25/16 at 13:58; Status DC Sodium Bicarbonate 50 meq 50 meq STK-MED ONCE .ROUTE ; Start 07/25/16 at 14:04; Stop 07/25/16 at 14:05; Status DC Procainamide HCl/ Dextrose (Pronestyl) 520 ml @ 15.6 mls/hr CONT PRN IV SEE I/ O RECORD; Start 07/25/16 at 14:30; Stop 07/28/16 at 15:22; Status DC Sodium Bicarbonate 50 meq STK-MED ONCE .ROUTE ; Start 07/25/16 at 14:31; Stop at 14:32; Status DC Sodium Bicarbonate 50 meq STK-MED ONCE .ROUTE ; Start 07/25/16 at 14:31; Stop at 14:32; Status DC Protamine Sulfate 50 mg STK-MED ONCE IV ; Start 07/25/16 at 15:13; Stop at 15:14; Status DC Protamine Sulfate 50 mg STK-MED ONCE IV ; Start 07/25/16 at 15:13; Stop at 15:14; Status DC Isoflurane 90 ml 90 ml STK-MED ONCE IH ; Start 07/25/16 at 15:13; Stop 07/25/16 at 15:14; Status DC Dobutamine HCl/ Dextrose 250 ml @ As Directed STK-MED ONCE IV ; Start 07/25/16 at 15:17; Stop 07/25/16 at 15:18; Status DC Iohexol 100 ml 100 ml STK-MED ONCE .ROUTE Last administered on 07/25/16t 15:39 ; Start 07/25/16 at 15:28; Stop 07/25/16 at 15:29; Status DC Norepinephrine Bitartrate 8 mg/ Sodium Chloride 258 ml @ 1.93 mls/hr 1X ONCE IV Last administered on 07/25/16t 18:53; Start 07/25/16 at 16:00; Stop at 08:04; Status DC Albumin Human (Plasmanate) 1,000 ml @ As Directed STK-MED ONCE IV ; Start 07/25 at 16:11; Stop 07/25/16 at 16:12; Status DC Heparin Sodium (Porcine) (Heparin Sodium) 10,000 unit STK-MED ONCE .ROUTE ; Start 07/25/16 at 16:19; Stop 07/25/16 at 16:20; Status DC Lidocaine HCl (Lidocaine HCl 2% Abboject) 100 mg STK-MED ONCE .ROUTE ; Start 01/31 at 16:19; Stop 07/25/16 at 16:20; Status DC Mannitol (Mannitol) 12.5 g STK-MED ONCE .ROUTE ; Start 07/25/16 at 16:19; Stop 07/25/16 at 16:20; Status DC Calcium Chloride 1,000 mg STK-MED ONCE IV ; Start 07/25/16 at 16:19; Stop at 16:20; Status DC Sodium Bicarbonate 50 meq STK-MED ONCE .ROUTE ; Start 07/25/16 at 16:19; Stop at 16:20; Status DC Magnesium Sulfate 5 gm STK-MED ONCE .ROUTE ; Start 07/25/16 at 16:19; Stop 07/25 at 16:20; Status DC Heparin Sodium (Porcine) (Heparin Sodium) 10,000 unit STK-MED ONCE .ROUTE ; Start 07/25/16 at 16:20; Stop 07/25/16 at 16:21; Status DC Lidocaine HCl (Lidocaine HCl 2% Abboject) 100 mg STK-MED ONCE .ROUTE ; Start 01/31 at 16:20; Stop 07/25/16 at 16:21; Status DC Aminocaproic Acid (Amicar) 5,000 mg STK-MED ONCE IV ; Start 07/25/16 at 16:20; Stop 07/25/16 at 16:21; Status DC Mannitol (Mannitol) 12.5 g STK-MED ONCE .ROUTE ; Start 07/25/16 at 16:20; Stop 07/25/16 at 16:21; Status DC Sodium Bicarbonate 50 meq 50 meq STK-MED ONCE .ROUTE ; Start 07/25/16 at 16:20; Stop 07/25/16 at 16:21; Status DC Albumin Human (Albuminar) 100 ml @ As Directed STK-MED ONCE IV ; Start at 16:20; Stop 07/25/16 at 16:21; Status DC Rocuronium [place] (Zemuron) 50 mg STK-MED ONCE .ROUTE ; Start 07/25/16 at 16:33 ; Stop 07/25/16 at 16:34; Status DC Rocuronium [place] (Zemuron) 50 mg STK-MED ONCE .ROUTE ; Start 07/25/16 at 16:33 ; Stop 07/25/16 at 16:34; Status DC Protamine Sulfate 50 mg STK-MED ONCE IV ; Start 07/25/16 at 16:34; Stop at 16:35; Status DC Sodium Bicarbonate 50 meq STK-MED ONCE .ROUTE ; Start 07/25/16 at 16:36; Stop at 16:37; Status DC Calcium Chloride 1,000 mg STK-MED ONCE IV ; Start 07/25/16 at 16:41; Stop at 16:42; Status DC Epinephrine HCl (Epinephrine Syringe) 1 mg STK-MED ONCE .ROUTE ; Start 07/25/16 at 16:41; Stop 07/25/16 at 16:42; Status DC Sodium Bicarbonate 50 meq STK-MED ONCE .ROUTE ; Start 07/25/16 at 16:52; Stop at 16:53; Status DC Sodium Bicarbonate 50 meq STK-MED ONCE .ROUTE ; Start 07/25/16 at 16:52; Stop at 16:53; Status DC Sodium Bicarbonate 50 meq STK-MED ONCE .ROUTE ; Start 07/25/16 at 16:52; Stop at 16:53; Status DC Vasopressin (Vasostrict) 20 unit STK-MED ONCE .ROUTE ; Start 07/25/16 at 16:54; Stop 07/25/16 at 16:55; Status DC Famotidine (Pepcid) 20 mg STK-MED ONCE .ROUTE ; Start 07/25/16 at 16:56; Stop at 16:57; Status DC Dexamethasone Sodium Phosphate (Decadron) 20 mg STK-MED ONCE .ROUTE ; Start 01/31 at 16:56; Stop 07/25/16 at 16:57; Status DC Diphenhydramine HCl 50 mg 50 mg STK-MED ONCE .ROUTE ; Start 07/25/16 at 16:56; Stop 07/25/16 at 16:57; Status DC Vasopressin/ Dextrose (Vasostrict) 102 ml @ 6 mls/hr CONT PRN IV SEE I/O RECORD Last administered on 08/03/16 18:28; Start 07/25/16 at 17:15 Sodium Bicarbonate 50 meq STK-MED ONCE .ROUTE ; Start 07/25/16 at 17:24; Stop at 17:25; Status DC Sodium Bicarbonate 50 meq 50 meq STK-MED ONCE .ROUTE ; Start 07/25/16 at 17:24; Stop 07/25/16 at 17:25; Status DC Cefazolin Sodium/ Dextrose (Ancef 2gm Premix) 50 ml @ As Directed STK-MED ONCE IV ; Start 07/25/16 at 17:32; Stop 07/25/16 at 17:33; Status DC Sodium Chloride 3 ml 3 ml PRN Q12HR PRN IV AFTER MEDS AND BLOOD DRAWS; Start at 17:30; Stop 07/29/16 at 13:38; Status DC Lactated Ringer's 1,000 ml @ 15 mls/hr Q24H IV Last administered on 07/29/16 16:45; Start 07/25/16 at 17:30; Stop 07/31/16 at 15:33; Status DC Insulin Human Regular/Sodium Chloride (Novolin R Vial/ Iv Normal Saline 150ml) 151.5 ml @ 0 mls/hr CONT PRN PRN IV SEE I/O RECORD Last administered on 03:03; Start 07/25/16 at 17:30; Stop 07/29/16 at 13:51; Status DC Dextrose 25 gm 25 gm PRN Q15MIN PRN IV LOW BLOOD SUGAR; Start 07/25/16 at 17:30 ; Stop 07/29/16 at 13:51; Status DC Dopamine HCl/ Dextrose 250 ml @ 0 mls/hr CONT PRN PRN IV SEE I/O RECORD; Start 07/25/16 at 17:30; Stop 07/26/16 at 11:41; Status DC Amiodarone HCl/ Dextrose (Cordarone) 518 ml @ 33.33 mls/ hr CONT PRN PRN IV SEE COMMENTS; Start 07/25/16 at 17:30; Status UNV Info 1 ea CONT PRN PRN MC SEE COMMENTS; Start 07/25/16 at 17:30; Stop 08/03/16 at 12:57; Status DC Info 1 ea 1 ea CONT PRN PRN MC SEE COMMENTS; Start 07/25/16 at 17:30 Magnesium Sulfate/ Dextrose (Magnesium Sulfate PREMIX 1GM) 100 ml @ 100 mls/hr PRN DAILY PRN IV FOR MAG < 2.2 Last administered on 07/27/16 10:59; Start 01/31 at 17:30 Famotidine (Pepcid) 20 mg BID IVP Last administered on 08/03/16 09:15; Start 07/25/16 at 21:00; Stop 08/03/16 at 15:28; Status DC Metoclopramide HCl (Reglan) 10 mg PRN Q6HRS PRN IV NAUSEA/VOMITING Last administered on 08/07/16 07:26; Start 07/25/16 at 17:30 Morphine Sulfate 2 mg PRN Q1HR PRN IV PAIN Last administered on 07/28/16 14:21 ; Start 07/25/16 at 17:30; Stop 07/29/16 at 13:38; Status DC Acetaminophen (Tylenol) 650 mg PRN Q4HRS PRN PO MILD PAIN / TEMP; Start at 17:30; Stop 07/29/16 at 13:38; Status DC Acetaminophen (Acetaminophen Supp) 650 mg PRN Q4HRS PRN CA MILD PAIN / TEMP Last administered on 08/03/16 01:04; Start 07/25/16 at 17:30 Meperidine HCl 12.5 mg 12.5 mg PRN Q15MIN PRN IV SHIVERING; Start 07/25/16 at 17:30; Stop 07/29/16 at 13:38; Status DC Propofol (Diprivan) 100 ml @ 0 mls/hr CONT PRN PRN IV POSTOP SEDATION UNTIL EXTUBATE; Start 07/25/16 at 17:30; Stop 07/28/16 at 15:22; Status DC Aspirin (Ecotrin) 325 mg DAILYWBKFT PO Last administered on 07/29/16 09:54; Start 07/26/16 at 08:00; Stop 07/29/16 at 09:59; Status DC Aspirin (Aspirin) 300 mg PRN DAILY PRN CA IF UNABLE TO TAKE PO; Start 07/25/16 at 17:30; Stop 07/26/16 at 12:00; Status DC Acetaminophen/ Hydrocodone Bitart (Lortab 5/325) 1 tab PRN Q4HRS PRN PO MILD PAIN; Start 07/25/16 at 17:30; Stop 08/03/16 at 12:24; Status DC Acetaminophen/ Hydrocodone Bitart 2 tab 2 tab PRN Q4HRS PRN PO MODERATE PAIN, SEVERE PAIN; Start 07/25/16 at 17:30; Stop 08/03/16 at 12:24; Status DC Cefazolin Sodium/ Dextrose 50 ml @ 100 mls/hr Q8H IV ; Start 07/25/16 at 18:00 ; Stop 07/25/16 at 21:42; Status DC Albumin Human 250 ml @ 62.5 mls/hr 1X ONCE IV Last administered on 07/27/16 17:52; Start 07/25/16 at 17:30; Stop 07/25/16 at 21:29; Status DC Midazolam HCl 100 ml @ As Directed STK-MED ONCE IV ; Start 07/25/16 at 18:06; Stop 07/25/16 at 18:07; Status DC Midazolam HCl 100 ml @ 0 mls/hr CONT PRN IV SEE I/O RECORD Last administered on 07/25/16 18:56; Start 07/25/16 at 18:15; Stop 07/26/16 at 08:59; Status DC Vancomycin HCl 1 gm/Sodium Chloride 250 ml @ 250 mls/hr 1X ONCE IV Last administered on 07/25/16 20:56; Start 07/25/16 at 18:15; Stop 07/25/16 at 19:14 ; Status DC Piperacillin Sod/ Tazobactam Sod/ Sodium Chloride (Zosyn/Iv Sodium Chloride 0.9 % 50ml) 50 ml @ 100 mls/hr Q6HRS IV Last administered on 07/31/16 05:32; Start 07/25/16 at 18:15; Stop 07/31/16 at 10:25; Status DC Midazolam HCl (Versed) 2 mg PRN Q20MIN PRN IV SEDATION; Start 07/25/16 at 18:15 ; Stop 07/25/16 at 18:39; Status DC Midazolam HCl 5 mg 5 mg PRN Q30MIN PRN IV SEDATION; Start 07/25/16 at 18:15; Stop 07/25/16 at 18:39; Status DC Vecuronium [place] 100 mg/ Dextrose 100 ml @ 0 mls/hr 1X ONCE IV Last administered on 07/25/16 19:43; Start 07/25/16 at 18:15; Stop 07/25/16 at 18:17 ; Status DC Midazolam HCl 100 ml @ 0 mls/hr CONT PRN IV SEE I/O RECORD Last administered on 07/28/16 19:40; Start 07/25/16 at 18:45 Dobutamine HCl/ Dextrose 250 ml @ 0 mls/hr CONT PRN IV SEE I/O RECORD Last administered on 07/29/16 03:10; Start 07/25/16 at 18:45; Stop 07/29/16 at 13:38 ; Status DC Potassium Chloride 50 ml @ 50 mls/hr Q1H IV Last administered on 07/25/16 22: 58; Start 07/25/16 at 21:00; Stop 07/25/16 at 23:59; Status DC Cefazolin Sodium/ Dextrose 50 ml @ 100 mls/hr Q8H IV Last administered on 07/27 05:34; Start 07/25/16 at 22:00; Stop 07/27/16 at 06:29; Status DC Heparin Sodium (Porcine) 06783 unit/Dextrose 512.5 ml @ 0 mls/hr Q0M ONCE IV Last administered on 07/25/16 22:21; Start 07/25/16 at 22:15; Stop 07/25/16 at 22:16; Status DC Vecuronium [place]/Dextrose (Norcuron) 100 ml @ 0 mls/hr CONT PRN IV SEE I/O RECORD Last administered on 07/26/16 01:07; Start 07/26/16 at 00:45; Stop 07/29 at 13:38; Status DC Dextrose 25 gm 25 gm 1X ONCE IV Last administered on 07/26/16 01:08; Start at 01:00; Stop 07/26/16 at 01:18; Status DC Amiodarone HCl/ Dextrose (Cordarone) 259 ml @ 17.26 mls/ hr CONT PRN IV SEE I/ O RECORD Last administered on 07/30/16 13:02; Start 07/26/16 at 06:45; Stop at 15:33; Status DC Cefazolin Sodium/ Dextrose 2 gm 2 gm STK-MED ONCE IV ; Start 07/25/16 at 11:00; Stop 07/26/16 at 08:53; Status DC Lactated Ringer's 500 ml @ 5,000 mls/hr PRN Q10MIN PRN IV CVP <14; Start 07/26 at 10:00; Stop 07/29/16 at 13:38; Status DC Fentanyl Citrate (Fentanyl 600 Mcg/30 ml QA REVIEWER) 30 ml @ 0 mls/hr CONT PRN IV PROTOCOL Last administered on 07/31/16 09:12; Start 07/26/16 at 10:00; Stop at 13:31; Status DC Fentanyl Citrate (Fentanyl 2ml Vial) 25 mcg PRN Q1HR PRN IV COMM; Start at 10:00; Stop 07/29/16 at 13:38; Status DC Fentanyl Citrate (Fentanyl 2ml Vial) 50 mcg PRN Q1HR PRN IV COMM; Start at 10:00; Stop 07/29/16 at 13:38; Status DC Chlorhexidine Gluconate (Peridex) 15 ml BID MM Last administered on 08/07/16 07:26; Start 07/26/16 at 10:30 Sulfur Hexafluoride Microspheres (Lumason) 25 mg STK-MED ONCE IVP ; Start at 11:29; Stop 07/26/16 at 11:30; Status DC Aspirin 300 mg 300 mg DAILY CA Last administered on 07/28/16 07:55; Start 03/03 at 12:00; Stop 07/29/16 at 19:10; Status DC Potassium Chloride (KCl Premix 20meq) 50 ml @ 50 mls/hr 1X ONCE IV Last administered on 07/26/16 12:55; Start 07/26/16 at 12:00; Stop 07/26/16 at 12:59 ; Status DC Sulfur Hexafluoride Microspheres (Lumason) 25 mg 1X ONCE IVP Last administered on 07/26/16 11:45; Start 07/26/16 at 11:45; Stop 07/26/16 at 11:50 ; Status DC Multi-Ingred Cream/Lotion/Oil/ Oint (Artificial Tears Eye Oint) 1 adri BID OU Last administered on 08/07/16 07:26; Start 07/26/16 at 21:00 Ondansetron HCl (Zofran) 4 mg PRN Q6HRS PRN IV NAUSEA/VOMITING; Start 07/27/16 at 07:00; Stop 07/28/16 at 06:59; Status DC Fentanyl Citrate (Fentanyl 2ml Vial) 25 mcg PRN Q5MIN PRN IV MILD PAIN; Start 07/27/16 at 07:00; Stop 07/28/16 at 06:59; Status DC Fentanyl Citrate (Fentanyl 2ml Vial) 50 mcg PRN Q5MIN PRN IV MODERATE PAIN; Start 07/27/16 at 07:00; Stop 07/28/16 at 06:59; Status DC Morphine Sulfate 1 mg 1 mg PRN Q10MIN PRN IV SEVERE PAIN; Start 07/27/16 at 07: 00; Stop 07/28/16 at 06:59; Status DC Lactated Ringer's (Iv Lactated Ringers) 1,000 ml @ 30 mls/hr Q24H IV Last administered on 07/26/16 17:25; Start 07/27/16 at 07:00; Stop 07/27/16 at 18:59 ; Status DC Lidocaine HCl 2 ml PRN 1X PRN ID PRIOR TO IV START; Start 07/27/16 at 07:00; Stop 07/28/16 at 06:59; Status DC Hydromorphone HCl (Dilaudid) 0.5 mg PRN Q10MIN PRN IV SEV PAIN, Second choice; Start 07/27/16 at 07:00; Stop 07/28/16 at 06:59; Status DC Prochlorperazine Edisylate 5 mg 5 mg PACU PRN PRN IV NAUSEA, MRX1; Start at 07:00; Stop 07/28/16 at 06:59; Status DC Heparin Sodium (Porcine) 29314 unit/Dextrose 512.5 ml @ 0 mls/hr Q0M ONCE IV Last administered on 07/26/16 19:40; Start 07/26/16 at 18:30; Stop 07/26/16 at 18:31; Status DC Amiodarone HCl 150 mg/Dextrose 103 ml @ 618 mls/hr 1X ONCE IV Last administered on 07/26/16 19:25; Start 07/26/16 at 19:15; Stop 07/26/16 at 19:24 ; Status DC Norepinephrine Bitartrate 8 mg/ Sodium Chloride 258 ml @ 1.93 mls/hr CONT PRN IV SEE I/O RECORD Last administered on 08/03/16 11:12; Start 07/26/16 at 19:15 Amiodarone HCl 900 mg/Dextrose 518 ml @ 0 mls/hr CONT PRN IV PER PROTOCOL; Start 07/26/16 at 19:15; Stop 07/27/16 at 12:11; Status DC Milrinone Lactate/ Dextrose 100 ml @ 0 mls/hr CONT PRN IV SEE I/O RECORD Last administered on 07/26/16 20:03; Start 07/26/16 at 19:45; Stop 07/29/16 at 13:51 ; Status DC Calcium Chloride/ Sodium Chloride (Iv Sodium Chloride 0.9% 100ml) 120 ml @ 240 mls/hr 1X ONCE IV Last administered on 07/26/16 21:04; Start 07/26/16 at 21: 30; Stop 07/26/16 at 21:59; Status DC Digoxin 500 mcg 500 mcg 1X ONCE IV Last administered on 07/26/16 21:55; Start 07/26/16 at 21:45; Stop 07/26/16 at 21:46; Status DC Cefazolin Sodium/ Sodium Chloride (Ancef/Iv Sodium Chloride 0.9% 500ml Bag) 500 ml @ 500 mls/hr 1X PERIOP ONCE IRR Last administered on 07/27/16 14:37; Start 07/27/16 at 10:00; Stop 07/27/16 at 10:59; Status DC Vancomycin HCl (Vanco) 10 gm 1X ONCE CEMENT Last administered on 07/27/16 14: 37; Start 07/27/16 at 12:30; Stop 07/27/16 at 12:31; Status DC Rocuronium [place] (Zemuron) 100 mg STK-MED ONCE .ROUTE ; Start 07/27/16 at 12: 32; Stop 07/27/16 at 12:33; Status DC Lorazepam (Ativan) 2 mg STK-MED ONCE .ROUTE ; Start 07/27/16 at 14:13; Stop 04/02 at 14:14; Status DC Phenylephrine HCl 1 mg 1 mg STK-MED ONCE IV ; Start 07/27/16 at 14:18; Stop 04/02 at 14:19; Status DC Albumin Human (Plasmanate) 250 ml @ 62.5 mls/hr 1X ONCE IV Last administered on 07/27/16 17:52; Start 07/27/16 at 17:15; Stop 07/27/16 at 21:14; Status DC Sodium Bicarbonate 50 meq STK-MED ONCE .ROUTE ; Start 07/27/16 at 17:39; Stop at 17:40; Status DC Sodium Bicarbonate 50 meq 1X ONCE IV Last administered on 07/27/16 17:51; Start 07/27/16 at 18:00; Stop 07/27/16 at 18:01; Status DC Sodium Bicarbonate 50 meq 1X ONCE IV Last administered on 07/27/16 17:52; Start 07/27/16 at 18:00; Stop 07/27/16 at 18:01; Status DC Fentanyl Citrate (Fentanyl 2ml Vial) 25 mcg PRN Q5MIN PRN IV MILD PAIN; Start 07/28/16 at 07:00; Stop 07/29/16 at 06:59; Status DC Fentanyl Citrate (Fentanyl 2ml Vial) 50 mcg PRN Q5MIN PRN IV MODERATE PAIN; Start 07/28/16 at 07:00; Stop 07/29/16 at 06:59; Status DC Morphine Sulfate 1 mg 1 mg PRN Q10MIN PRN IV SEVERE PAIN; Start 07/28/16 at 07: 00; Stop 07/29/16 at 06:59; Status DC Lactated Ringer's (Iv Lactated Ringers) 1,000 ml @ 30 mls/hr Q24H IV Last administered on 07/28/16 06:49; Start 07/28/16 at 06:49; Stop 07/28/16 at 18:48 ; Status DC Lidocaine HCl 2 ml PRN 1X PRN ID PRIOR TO IV START; Start 07/28/16 at 07:00; Stop 07/29/16 at 06:59; Status DC Hydromorphone HCl (Dilaudid) 0.5 mg PRN Q10MIN PRN IV SEV PAIN, Second choice; Start 07/28/16 at 07:00; Stop 07/29/16 at 06:59; Status DC Rocuronium [place] 50 mg 50 mg STK-MED ONCE .ROUTE ; Start 07/28/16 at 07:27; Stop 07/28/16 at 07:28; Status DC Cefazolin Sodium/ Sodium Chloride (Ancef/Iv Sodium Chloride 0.9% 500ml Bag) 500 ml @ 500 mls/hr 1X PERIOP ONCE IRR Last administered on 07/28/16 09:25; Start 07/28/16 at 08:00; Stop 07/28/16 at 08:59; Status DC Cellulose 1 each STK-MED ONCE .ROUTE ; Start 07/28/16 at 07:42; Stop 07/28/16 at 07:43; Status DC Bupivacaine HCl/ Epinephrine Bitart 50 ml 50 ml STK-MED ONCE .ROUTE ; Start at 07:42; Stop 07/28/16 at 07:43; Status DC Heparin Sodium (Porcine)/Sodium Chloride (Heparin Sodium/ Iv Sodium Chloride 0.9 % 500ml Bag) 505 ml @ 505 mls/hr 1X PERIOP ONCE IRR Last administered on 07/28 10:19; Start 07/28/16 at 08:15; Stop 07/28/16 at 09:14; Status DC Lorazepam 2 mg 2 mg STK-MED ONCE .ROUTE ; Start 07/28/16 at 08:29; Stop at 08:30; Status DC Magnesium Sulfate/ Dextrose (Magnesium Sulfate PREMIX 1GM) 100 ml @ 100 mls/hr 1X ONCE IV Last administered on 07/28/16 13:09; Start 07/28/16 at 09:00; Stop 07/28/16 at 09:59; Status DC Vasopressin (Vasostrict) 20 unit STK-MED ONCE .ROUTE ; Start 07/28/16 at 09:03; Stop 07/28/16 at 09:04; Status DC Epinephrine HCl (Epinephrine Syringe) 1 mg STK-MED ONCE .ROUTE ; Start 07/28/16 at 09:09; Stop 07/28/16 at 09:10; Status DC Calcium Chloride 1,000 mg STK-MED ONCE IV ; Start 07/28/16 at 09:09; Stop at 09:10; Status DC Phenylephrine HCl 1 mg STK-MED ONCE IV ; Start 07/28/16 at 09:54; Stop 07/28/16 at 09:55; Status DC Sevoflurane 60 ml 60 ml STK-MED ONCE IH ; Start 07/28/16 at 09:54; Stop at 09:55; Status DC Epinephrine HCl/ Sodium Chloride (Adrenalin/Iv Sodium Chloride 0.9% 250ml) 254 ml @ 3.81 mls/hr 1X ONCE IV ; Start 07/28/16 at 10:00; Stop 07/29/16 at 19:10 ; Status DC Heparin Sodium (Porcine) 06892 unit 10,000 unit STK-MED ONCE .ROUTE ; Start at 09:57; Stop 07/28/16 at 09:58; Status DC Albumin Human (Plasmanate) 500 ml @ As Directed STK-MED ONCE IV ; Start at 09:57; Stop 07/28/16 at 09:58; Status DC Iohexol 100 ml 100 ml STK-MED ONCE .ROUTE ; Start 07/28/16 at 10:39; Stop at 10:40; Status DC Heparin Sodium/ Sodium Chloride 500 ml @ As Directed STK-MED ONCE .ROUTE ; Start 07/28/16 at 10:39; Stop 07/28/16 at 10:40; Status DC Iohexol 100 ml 100 ml STK-MED ONCE .ROUTE ; Start 07/28/16 at 10:43; Stop at 10:44; Status DC Heparin Sodium/ Sodium Chloride 500 ml @ As Directed STK-MED ONCE .ROUTE ; Start 07/28/16 at 11:21; Stop 07/28/16 at 11:22; Status DC Albuterol Sulfate (Ventolin Neb Soln) 2.5 mg RTQID NEB Last administered on t 08:46; Start 07/28/16 at 12:00; Stop 07/30/16 at 17:05; Status DC Furosemide (Lasix) 40 mg 1X ONCE IVP Last administered on 07/28/16t 13:16; Start 07/28/16 at 13:15; Stop 07/28/16 at 13:16; Status DC Furosemide (Lasix) 40 mg 1X ONCE IVP Last administered on 07/28/16 13:19; Start 07/28/16 at 14:00; Stop 07/28/16 at 14:01; Status DC Heparin Sodium/ Sodium Chloride 1000 unit 1,000 unit CONT PRN IV ART LINE FLUSH Last administered on 08/02/16 06:47; Start 07/28/16 at 14:45 Albumin Human 250 ml @ 62.5 mls/hr PRN Q1HR PRN IV SEE COMMENTS Last administered on 08/02/16 16:12; Start 07/28/16 at 15:15 Furosemide 100 mg/ Sodium Chloride 100 ml @ 5 mls/hr CONT PRN IV SEE I/O RECORD Last administered on 07/30/16 09:50; Start 07/28/16 at 15:30; Stop 07/31 at 13:31; Status DC Potassium Chloride 50 ml @ 50 mls/hr Q1H IV Last administered on 07/28/16 19: 39; Start 07/28/16 at 18:30; Stop 07/28/16 at 20:29; Status DC Potassium Chloride (KCl Premix 20meq) 50 ml @ 50 mls/hr Q1H IV Last administered on 07/29/16 09:36; Start 07/29/16 at 07:00; Stop 07/29/16 at 08:59 ; Status DC Lorazepam (Ativan) 2 mg STK-MED ONCE .ROUTE ; Start 07/28/16 at 08:30; Stop at 08:16; Status DC Aspirin (Arti Aspirin) 325 mg DAILYWBKFT PO Last administered on 08/07/16 07: 26; Start 07/30/16 at 08:00 Docusate Sodium 100 mg 100 mg DAILY PO Last administered on 07/31/16 07:59; Start 07/30/16 at 09:00; Stop 07/31/16 at 11:00; Status DC Dobutamine HCl/ Dextrose 250 ml @ 12.1 mls/hr CONT PRN IV PER PROTOCOL Last administered on 08/02/16 18:03; Start 07/29/16 at 13:30 Potassium Chloride 50 ml @ 50 mls/hr Q1H IV Last administered on 07/29/16 22: 39; Start 07/29/16 at 20:00; Stop 07/29/16 at 22:59; Status DC Potassium Chloride (KCl Premix 20meq) 50 ml @ 50 mls/hr Q1H IV Last administered on 07/30/16 09:19; Start 07/30/16 at 07:00; Stop 07/30/16 at 08:59 ; Status DC Ipratropium [place] (Atrovent) 0.5 mg RTQID NEB Last administered on 08/07/16 12:08; Start 07/30/16 at 12:30 Digoxin 500 mcg 500 mcg 1X ONCE IV Last administered on 07/30/16 13:01; Start 07/30/16 at 12:15; Stop 07/30/16 at 12:19; Status DC Dexmedetomidine HCl/Sodium Chloride (Precedex/Iv Sodium Chloride 0.9% 50ml) 50 ml @ 0 mls/hr CONT PRN IV PER PROTOCOL Last administered on 08/04/16 05:20; Start 07/30/16 at 13:30 Atropine Sulfate 0.5 mg PRN Q5MIN PRN IV SEE COMMENTS; Start 07/30/16 at 13:30 Amiodarone HCl (Cordarone) 400 mg ONCE ONCE PO Last administered on 07/30/16 15:01; Start 07/30/16 at 13:30; Stop 07/30/16 at 13:46; Status DC Amiodarone HCl (Cordarone) 400 mg BID PO Last administered on 08/07/16 07:25; Start 07/30/16 at 21:00 Digoxin 125 mcg 125 mcg DAILY IV Last administered on 08/02/16 08:56; Start at 09:00; Stop 08/03/16 at 14:27; Status DC Albumin Human (Albuminar) 50 ml @ 50 mls/hr 1X ONCE IV Last administered on 16:26; Start 07/30/16 at 16:30; Stop 07/30/16 at 17:29; Status DC Ibuprofen (Motrin) 200 mg PRN Q6HRS PRN PO fever; Start 07/30/16 at 19:45; Stop 08/01/16 at 12:22; Status DC Metoprolol Tartrate (Lopressor) 2.5 mg 1X ONCE IVP Last administered on 20:23; Start 07/30/16 at 20:30; Stop 07/30/16 at 20:31; Status DC Metoprolol Tartrate 5 mg 5 mg PRN Q2HR PRN IVP HYPERTENSION Last administered on 08/04/16 22:09; Start 07/30/16 at 22:30 Potassium Chloride (KCl Premix 20meq) 50 ml @ 50 mls/hr Q1H IV Last administered on 07/31/16 09:04; Start 07/31/16 at 07:00; Stop 07/31/16 at 08:59 ; Status DC Metoprolol Tartrate (Lopressor) 12.5 mg BID NG Last administered on 08/07/16 07:25; Start 07/31/16 at 10:00 Docusate Sodium (Colace Solution) 100 mg PRN DAILY PRN PO constipation Last administered on 08/01/16 08:40; Start 07/31/16 at 11:00 Hydralazine HCl (Apresoline) 10 mg PRN Q2HRS PRN IVP ELEVATED BP, SEE COMMENTS Last administered on 08/01/16 16:35; Start 07/31/16 at 13:30 Fentanyl Citrate (Fentanyl 2ml Vial) 50 mcg PRN Q2HR PRN IV PAIN Last administered on 08/02/16 12:57; Start 07/31/16 at 13:45 Furosemide (Lasix) 40 mg TID IVP Last administered on 08/02/16 05:49; Start at 14:00; Stop 08/02/16 at 15:33; Status DC Alteplase, Recombinant (Cathflo) 2 mg 1X ONCE INT CAT Last administered on 23:34; Start 07/31/16 at 23:15; Stop 07/31/16 at 23:16; Status DC Haloperidol Lactate (Haldol) 5 mg PRN Q6HRS PRN IVP MODERATE AGITATION Last administered on 08/07/16 07:26; Start 08/01/16 at 21:00 Haloperidol Lactate 10 mg 10 mg PRN Q6HRS PRN IVP SEVERE AGITATION Last administered on 08/06/16 21:05; Start 08/01/16 at 23:45 Propofol 100 ml @ 0 mls/hr CONT PRN IV SEE I/O RECORD Last administered on 08/02 11:43; Start 08/02/16 at 02:45 Piperacillin Sod/ Tazobactam Sod/ Sodium Chloride (Zosyn/Iv Sodium Chloride 0.9 % 50ml) 50 ml @ 100 mls/hr Q6HRS IV Last administered on 08/02/16 13:17; Start 08/02/16 at 12:00; Stop 08/02/16 at 15:43; Status DC Vancomycin HCl 1 each 1 each PRN DAILY PRN MC SEE COMMENTS Last administered on 08/02/16 13:20; Start 08/02/16 at 11:45; Stop 08/03/16 at 15:24; Status DC Vancomycin HCl 2 gm/Sodium Chloride 500 ml @ 250 mls/hr 1X ONCE IV Last administered on 08/02/16 11:52; Start 08/02/16 at 12:00; Stop 08/02/16 at 13:59 ; Status DC Sodium Chloride (Iv Sodium Chloride 0.9% 500ml Bag) 500 ml @ 500 mls/hr 1X ONCE IV Last administered on 08/02/16 12:39; Start 08/02/16 at 12:45; Stop at 13:44; Status DC Vecuronium [place] (Norcuron Bolus) 10 mg 1X STAT IV Last administered on 08/02 13:34; Start 08/02/16 at 13:17; Stop 08/02/16 at 13:23; Status DC Vancomycin HCl 1 each 1 each 1X ONCE MC ; Start 08/03/16 at 23:30; Stop at 23:30; Status DC Vancomycin HCl 1.25 gm/Sodium Chloride 250 ml @ 167 mls/hr Q12H IV Last administered on 08/03/16 00:33; Start 08/03/16 at 00:00; Stop 08/03/16 at 11:07 ; Status DC Fentanyl Citrate (Fentanyl 600 Mcg/30 ml QA REVIEWER) 30 ml @ 0 mls/hr CONT PRN PRN IV PROTOCOL Last administered on 08/06/16 02:18; Start 08/02/16 at 13:30 Naloxone HCl 0.4 mg 0.4 mg PRN Q2MIN PRN IV SEE INSTRUCTIONS; Start 08/02/16 at 13:30 Micafungin Sodium 100 mg/Dextrose 100 ml @ 100 mls/hr Q24H IV Last administered on 08/06/16 17:00; Start 08/02/16 at 17:00 Lactated Ringer's 1,000 ml @ 1,000 mls/hr 1X ONCE IV Last administered on 15:45; Start 08/02/16 at 15:45; Stop 08/02/16 at 16:44; Status DC Piperacillin Sod/ Tazobactam Sod 4.5 gm/Sodium Chloride 100 ml @ 200 mls/hr Q6HRS IV Last administered on 08/03/16 12:00; Start 08/02/16 at 18:00; Stop at 14:02; Status DC Albumin Human (Plasmanate) 500 ml @ 125 mls/hr 1X ONCE IV Last administered on 08/02/16 20:37; Start 08/02/16 at 20:30; Stop 08/03/16 at 00:29; Status DC Furosemide (Lasix) 40 mg 1X ONCE IVP Last administered on 08/03/16 00:16; Start 08/02/16 at 20:30; Stop 08/02/16 at 20:31; Status DC Acetaminophen (Tylenol) 650 mg 1X ONCE NG Last administered on 08/03/16 02:03 ; Start 08/03/16 at 02:15; Stop 08/03/16 at 02:16; Status DC Ketorolac Tromethamine 15 mg 15 mg 1X ONCE IV Last administered on 08/03/16 02:03; Start 08/03/16 at 02:15; Stop 08/03/16 at 02:16; Status DC Lactated Ringer's (Iv Lactated Ringers) 500 ml @ 500 mls/hr 1X ONCE IV Last administered on 08/03/16 10:15; Start 08/03/16 at 10:15; Stop 08/03/16 at 11:14 ; Status DC Sodium Bicarbonate 50 meq 1X ONCE IV Last administered on 08/03/16 10:44; Start 08/03/16 at 10:15; Stop 08/03/16 at 10:20; Status DC Calcium Gluconate 1000 mg 1,000 mg 1X ONCE IVP ; Start 08/03/16 at 12:15; Stop 08/03/16 at 12:16; Status DC Sodium Bicarbonate 150 meq/Dextrose/ Sodium Chloride 1,150 ml @ 100 mls/hr [id number] PRN IV .; Start 08/03/16 at 12:30; Stop 08/03/16 at 13:03; Status DC Magnesium Sulfate/ Dextrose 50 ml @ 25 mls/hr PRN DAILY PRN IV for Mag < 1.7 on am labs; Start 08/03/16 at 12:30 Sodium Bicarbonate 150 meq/Dextrose 1,150 ml @ 100 mls/hr [id number] IV Last administered on 08/04/16 04:31; Start 08/03/16 at 13:30; Stop 08/04/16 at 08:31 ; Status DC Calcium Chloride 2000 mg/Sodium Chloride 120 ml @ 240 mls/hr 1X ONCE IV Last administered on 08/03/16 13:30; Start 08/03/16 at 13:30; Stop 08/03/16 at 13:59 ; Status DC Piperacillin Sod/ Tazobactam Sod/ Sodium Chloride (Zosyn/Iv Sodium Chloride 0.9 % 50ml) 50 ml @ 100 mls/hr Q6HRS IV Last administered on 08/07/16 11:36; Start 08/03/16 at 18:00 Heparin Sodium (Porcine) (Heparin Sodium) 10,000 unit STK-MED ONCE .ROUTE ; Start 08/03/16 at 14:31; Stop 08/03/16 at 14:32; Status DC Lidocaine/Sodium Bicarbonate (Buffered Lidocaine 1%) 20 ml STK-MED ONCE IJ ; Start 08/03/16 at 14:31; Stop 08/03/16 at 14:32; Status DC Heparin Sodium/ Sodium Chloride 60 unit 1X ONCE IV Last administered on 16:17; Start 08/03/16 at 14:45; Stop 08/03/16 at 14:46; Status DC Heparin Sodium (Porcine) (Heparin Sodium) 2,500 unit 1X ONCE INT CAT Last administered on 08/03/16 16:16; Start 08/03/16 at 14:45; Stop 08/03/16 at 14:46 ; Status DC Lidocaine/Sodium Bicarbonate (Buffered Lidocaine 1%) 3 ml 1X ONCE IJ Last administered on 08/03/16 16:16; Start 08/03/16 at 14:45; Stop 08/03/16 at 14:46 ; Status DC Fentanyl Citrate (Fentanyl 2ml Vial) 25 mcg PRN Q5MIN PRN IV MILD PAIN; Start 08/04/16 at 07:00; Stop 08/05/16 at 06:59; Status DC Fentanyl Citrate (Fentanyl 2ml Vial) 50 mcg PRN Q5MIN PRN IV MODERATE PAIN; Start 08/04/16 at 07:00; Stop 08/05/16 at 06:59; Status DC Morphine Sulfate 1 mg 1 mg PRN Q10MIN PRN IV SEVERE PAIN; Start 08/04/16 at 07: 00; Stop 08/05/16 at 06:59; Status DC Lactated Ringer's (Iv Lactated Ringers) 1,000 ml @ 0 mls/hr Q0M IV ; Start at 07:00; Stop 08/04/16 at 18:59; Status DC Lidocaine HCl 2 ml PRN 1X PRN ID PRIOR TO IV START; Start 08/04/16 at 07:00; Stop 08/05/16 at 06:59; Status DC Hydromorphone HCl (Dilaudid) 0.5 mg PRN Q10MIN PRN IV SEV PAIN, Second choice; Start 08/04/16 at 07:00; Stop 08/05/16 at 06:59; Status DC Famotidine (Pepcid) 20 mg DAILY IVP Last administered on 08/05/16 07:43; Start 08/04/16 at 09:00; Stop 08/06/16 at 07:05; Status DC Insulin Aspart (Novolog) 0-7 UNITS TIDWMEALS SQ Last administered on 08/07/16 11:38; Start 08/03/16 at 19:00 Dextrose 12.5 gm 12.5 gm PRN Q15MIN PRN IV SEE COMMENTS; Start 08/03/16 at 18: 30 Sodium Chloride 1,000 ml @ 1,000 mls/hr Q1H PRN IV hypotension; Start 08/03/16 at 18:33; Stop 08/04/16 at 00:32; Status DC Sodium Chloride (Iv Sodium Chloride 0.9% 1000ml Bag) 1,000 ml @ 400 mls/hr Q2H30M PRN IV PATENCY; Start 08/03/16 at 18:33; Stop 08/04/16 at 06:32; Status DC Info 1 each 1 each PRN DAILY PRN MC SEE COMMENTS; Start 08/03/16 at 18:45; Stop 08/06/16 at 09:01; Status DC Sodium Chloride 1,000 ml @ 1,000 mls/hr Q1H PRN IV hypotension; Start 08/04/16 at 07:44; Stop 08/04/16 at 13:43; Status DC Albumin Human (Albuminar) 200 ml @ 200 mls/hr 1X PRN PRN IV Hypotension Last administered on 08/04/16 08:48; Start 08/04/16 at 07:45; Stop 08/04/16 at 13:44 ; Status DC Diphenhydramine HCl (Benadryl) 25 mg 1X PRN PRN IV ITCHING; Start 08/04/16 at 07:45; Stop 08/05/16 at 07:44; Status DC Diphenhydramine HCl (Benadryl) 25 mg 1X PRN PRN IV ITCHING; Start 08/04/16 at 07:45; Stop 08/05/16 at 07:44; Status DC Sodium Chloride (Normal Saline Flush) 10 ml 1X PRN PRN IV AP catheter pack; Start 08/04/16 at 07:45; Stop 08/05/16 at 07:44; Status DC Sodium Chloride 10 ml 10 ml 1X PRN PRN IV LAPEL PADDER BLINDSTITCH catheter pack; Start 08/04/16 at 07:45; Stop 08/05/16 at 07:44; Status DC Sodium Chloride (Iv Sodium Chloride 0.9% 1000ml Bag) 1,000 ml @ 400 mls/hr Q2H30M PRN IV PATENCY; Start 08/04/16 at 07:44; Stop 08/04/16 at 19:43; Status DC Info (PHARMACY MONITORING -- do not chart) 1 each PRN DAILY PRN MC SEE COMMENTS ; Start 08/04/16 at 07:45; Stop 08/06/16 at 09:02; Status DC Heparin Sodium (Porcine) 5,000 unit Q12HR SQ Last administered on 08/07/16 07: 45; Start 08/04/16 at 21:00 Sevelamer Carbonate 2.4 gm 2.4 gm BID FT Last administered on 08/07/16 07:26; Start 08/05/16 at 10:00 Sodium Chloride 1,000 ml @ 1,000 mls/hr Q1H PRN IV hypotension; Start 08/05/16 at 12:28; Stop 08/05/16 at 18:27; Status DC Albumin Human (Albuminar) 200 ml @ 200 mls/hr 1X PRN PRN IV Hypotension; Start 08/05/16 at 12:30; Stop 08/05/16 at 18:29; Status DC Sodium Chloride (Normal Saline Flush) 10 ml 1X PRN PRN IV AP catheter pack; Start 08/05/16 at 12:30; Stop 08/06/16 at 12:29; Status DC Sodium Chloride 10 ml 10 ml 1X PRN PRN IV LAPEL PADDER BLINDSTITCH catheter pack; Start 08/05/16 at 12:30; Stop 08/06/16 at 12:29; Status DC Sodium Chloride (Iv Sodium Chloride 0.9% 1000ml Bag) 1,000 ml @ 400 mls/hr Q2H30M PRN IV PATENCY; Start 08/05/16 at 12:28; Stop 08/06/16 at 00:27; Status DC Info 1 each 1 each PRN DAILY PRN MC SEE COMMENTS; Start 08/05/16 at 12:30 Propofol (Diprivan) 20 ml @ As Directed STK-MED ONCE IV ; Start 08/05/16 at 13: 01; Stop 08/05/16 at 13:02; Status DC Rocuronium [place] (Zemuron) 50 mg STK-MED ONCE .ROUTE ; Start 08/05/16 at 13:01 ; Stop 08/05/16 at 13:02; Status DC Dexamethasone Sodium Phosphate (Decadron) 20 mg STK-MED ONCE .ROUTE ; Start at 13:05; Stop 08/05/16 at 13:06; Status DC Famotidine (Pepcid) 20 mg STK-MED ONCE .ROUTE ; Start 08/05/16 at 13:05; Stop at 13:06; Status DC Ondansetron HCl (Zofran) 4 mg STK-MED ONCE .ROUTE ; Start 08/05/16 at 13:05; Stop 08/05/16 at 13:06; Status DC Midazolam HCl (Versed) 2 mg STK-MED ONCE .ROUTE ; Start 08/05/16 at 13:13; Stop 08/05/16 at 13:14; Status DC Vasopressin (Vasostrict) 20 unit STK-MED ONCE .ROUTE ; Start 08/05/16 at 13:58; Stop 08/05/16 at 13:59; Status DC Sodium Chloride (Sodium Chloride) 50 ml STK-MED ONCE IJ ; Start 08/05/16 at 13: 58; Stop 08/05/16 at 13:59; Status DC Sevoflurane (Ultane) 60 ml STK-MED ONCE IH ; Start 08/05/16 at 14:29; Stop 08/05 at 14:30; Status DC Alprazolam (Xanax) 0.25 mg PRN Q8HRS PRN PEG ANXIETY / AGITATION Last administered on 08/07/16 07:26; Start 08/05/16 at 14:45 Lidocaine HCl (Xylocaine-Mpf 1% Vial) 5 ml STK-MED ONCE INJ Last administered on 08/05/16 14:55; Start 08/05/16 at 14:55; Stop 08/05/16 at 15:11; Status DC Pantoprazole Sodium 40 mg 40 mg DAILYAC IVP Last administered on 08/07/16 07: 24; Start 08/06/16 at 07:30 Linezolid 300 ml @ 300 mls/hr Q12HR IV Last administered on 08/07/16 07:24; Start 08/06/16 at 11:30 Sodium Chloride 1,000 ml @ 1,000 mls/hr Q1H PRN IV hypotension; Start 08/06/16 at 13:17; Stop 08/06/16 at 19:16; Status DC Sodium Chloride (Iv Sodium Chloride 0.9% 1000ml Bag) 1,000 ml @ 400 mls/hr Q2H30M PRN IV PATENCY; Start 08/06/16 at 13:17; Stop 08/07/16 at 01:16; Status DC Info (PHARMACY MONITORING -- do not chart) 1 each PRN DAILY PRN MC SEE COMMENTS ; Start 08/06/16 at 13:30; Status UNV Darbepoetin Nick (Aranesp) 60 mcg WEEKLYHS SQ ; Start 08/07/16 at 21:00 Active Scripts Active Reported Amlodipine Besylate 5 Mg Tablet 5 Mg PO DAILY Pradaxa (Dabigatran Etexilate Mesylate) 150 Mg Capsule 1 Cap PO BID Metoprolol Succinate ( Xl ) (Metoprolol Succinate) 100 Mg Tab.er.24h 1 Tab PO DAILY Vitals/I & O Vital Sign - Last 24 Hours 08/06/16 08/06/16 08/06/16 08/06/16 15:00 15:55 16:00 16:00 Temp 98.6 98.6 Pulse 103 105 Resp 20 20 B/P 120/73 136/79 Pulse Ox 97 99 100 O2 Delivery Ventilator Ventilator Mechanical Ventilator Ventilator 08/06/16 08/06/16 08/06/16 08/06/16 16:00 17:00 17:47 18:00 Pulse 105 103 83 Resp B/P 106/53 128/61 Pulse Ox 97 99 91 O2 Delivery Ventilator Ventilator Ventilator 08/06/16 08/06/16 08/06/16 08/06/16 19:00 20:00 20:00 20:00 Temp 96.3 96.3 Pulse 92 92 92 Resp B/P 143/67 168/78 168/78 Pulse Ox 97 98 O2 Delivery Ventilator Mechanical Ventilator Ventilator 08/06/16 08/06/16 08/06/16 08/06/16 20:02 21:00 21:04 21:05 Pulse 107 97 107 Resp 27 B/P 169/77 161/77 174/79 Pulse Ox 98 100 O2 Delivery Ventilator Ventilator 08/06/16 08/06/16 08/06/16 08/07/16 22:00 22:15 23:00 00:00 Pulse 89 96 Resp B/P 146/72 137/70 Pulse Ox 97 96 98 O2 Delivery Ventilator Ventilator Ventilator Mechanical Ventilator 08/07/16 08/07/16 08/07/16 08/07/16 00:00 00:10 01:00 02:00 Temp 97.8 97.8 Pulse 95 93 85 Resp 24 B/P 136/63 148/68 135/65 Pulse Ox 96 97 97 98 O2 Delivery Ventilator Ventilator Ventilator Ventilator 08/07/16 08/07/16 08/07/16 08/07/16 02:48 03:00 04:00 04:30 Temp 98.3 98.3 Pulse 88 83 Resp 13 21 B/P 132/71 136/68 Pulse Ox 99 100 98 O2 Delivery Ventilator Ventilator Ventilator Mechanical Ventilator 08/07/16 08/07/16 08/07/16 08/07/16 05:00 05:25 06:00 07:00 Pulse 78 89 95 Resp 15 24 22 B/P 136/67 149/74 149/75 Pulse Ox 98 98 98 98 O2 Delivery Ventilator Ventilator Ventilator Ventilator 08/07/16 08/07/16 08/07/16 08/07/16 07:25 07:25 08:00 08:00 Temp 98.6 98.6 Pulse 95 95 98 77 Resp 22 B/P 143/75 143/75 112/59 116/59 Pulse Ox 99 O2 Delivery Ventilator 08/07/16 08/07/16 08/07/16 08/07/16 08:00 08:42 09:00 10:00 Pulse 80 80 Resp 30 25 B/P 120/56 125/51 Pulse Ox 100 99 99 O2 Delivery Mechanical Ventilator Ventilator Ventilator Ventilator 08/07/16 08/07/16 08/07/16 08/07/16 11:00 11:17 12:00 12:00 Temp 98.7 98.7 Pulse 78 74 89 Resp 30 29 B/P 118/54 129/59 128/58 Pulse Ox 99 100 100 O2 Delivery T-Tube T-Tube T-Tube O2 Flow Rate 10.0 08/07/16 08/07/16 08/07/16 12:00 12:39 13:00 Pulse 87 Resp 18 B/P 119/62 Pulse Ox 100 99 O2 Delivery Mechanical Ventilator Ventilator Ventilator Intake and Output 08/06/16 08/06/16 08/07/16 15:00 23:00 07:00 Intake Total 424 ml 465 ml 820 ml Output Total 88 ml 24 ml 0 ml Balance 336 ml 441 ml 820 ml NGUYEN BINGHAM MD Aug 07, 2016 14:42
[2016-08-07] MEDS: MICAFUNGIN 100 MG in IV DEXTROSE 5% 100 ML IV SCH (16:33)
[2016-08-07] MEDS ORDERED: DARBEPOETIN ALFA 60 MCG/0.3 ML DISP.SYRIN. SQ SCH (21:00)
[2016-08-07] MEDS: ATORVASTATIN CALCIUM 40 MG TABLET. PO SCH (21:05)
[2016-08-07] MEDS: ZOLPIDEM 5 MG TABLET. PO SCH (21:05)
[2016-08-08] VITALS (24 sets, daily range): BP systolic 95–125; BP diastolic 53–73
[2016-08-08] MEDS: PIPERACILLIN/TAZOBACTAM 2.25 GM in IV NORMAL SALINE 50ML 50 ML IV SCH ×4 (00:16→22:47)
[2016-08-08 06:41] LABS: BASO % 0 % (0-3); EOS % 0 % (0-3); HEMATOCRIT 24.1 % (39.0-53.0); HEMOGLOBIN 7.9 g/dL (13.0-17.5); LYMPH # 0.3 x10^3/uL (1.0-4.8); LYMPH % 6 % (24-48); MEAN CORPUSCULAR HEMOGLOBIN 32 pg (25-35); MEAN CORPUSCULAR HGB CONC 33 g/dL (31-37); MEAN CORPUSCULAR VOLUME 97 fL (79-100); MONO % 8 % (0-9); NEUT % 85 % (31-73); PLATELET COUNT 120 x10^3/uL (140-400); RED BLOOD COUNT 2.49 x10^6/uL (4.30-5.70); RED CELL DISTRIBUTION WIDTH 16.6 % (11.5-14.5); WHITE BLOOD COUNT 5.2 x10^3/uL (4.0-11.0)
[2016-08-08] MEDS ORDERED: IV NORMAL SALINE 1000ML BAG 1,000 ML IV PRN ×2 (07:01)
[2016-08-08 07:09] LABS: ALBUMIN 2.2 g/dL (3.4-5.0); CALCIUM 7.6 mg/dL (8.5-10.1); CREATININE 4.7 mg/dL (0.7-1.3); GFR 12.9; PHOSPHORUS 6.1 mg/dL (2.6-4.7); POTASSIUM 4.2 mmol/L (3.5-5.1)
[2016-08-08] MEDS ORDERED: ALBUMIN HUMAN 25% 200 ML IV PRN (07:15)
[2016-08-08] MEDS ORDERED: cloNIDine HCL 0.1 MG TABLET PO PRN (07:15)
[2016-08-08] MEDS ORDERED: diphenhydrAMINE 50 MG/ML VIAL IV PRN ×2 (07:15)
[2016-08-08] MEDS ORDERED: LABETALOL 20 MG/4 ML DISP.SYRIN. IVP PRN (07:15)
[2016-08-08] MEDS ORDERED: ACETAMINOPHEN 500 MG TABLET PO PRN (07:15)
[2016-08-08] MEDS ORDERED: DIALYSIS PATIENT. MC PRN (07:15)
[2016-08-08] MEDS: INSULIN ASPART 300 UNITS/3 ML INSULN.PEN SQ SCH ×3 (08:00→17:00)
--- NOTE | 2016-08-08 08:00 | PDOC ---
Infectious Disease Note Subjective Subjective Sleeping better per nursing ROS ROS Alert and trached/PEG Difficult to completely ascertain. Vital Sign Vital Signs Vital Signs Date Time Temp Pulse Resp B/P Pulse Ox O2 Delivery O2 Flow Rate FiO2 08/08/16 07:00 98.0 94 33 114/70 99 BiPAP/CPAP 98.0 08/07/16 11:17 10.0 Physical Exam PHYSICAL EXAM GENERAL: Awake, seems comfortable HEENT: PERRL, Icteric. Oral mucosa dry NECK: Trach/vent. LUNGS: Clear anteriorly HEART: S1S2 ABD: Mildly distended, BS present, soft, NT. PEG intact : Tesfaye EXT: Generalized edema 1+. No cyanosis TEMPLATE CLERK: Awake, nods to few questions, weak SKIN: No rash, Jaundice. Sternal and left leg incision well-approximate. no redness RUE PICC clean RIJ temp HD cath 08/03). clean LUE art-line. clean Labs Lab Laboratory Tests Test 08/07/16 11:35 08/07/16 12:05 08/07/16 16:36 08/08/16 00:17 Glucose (Fingerstick) 184mg/dL (70-99) 170mg/dL (70-99) 163mg/dL (70-99) O2 Saturation 98% (92-99) Arterial Blood pH 7.42 (7.35-7.45) Arterial Blood pCO2 at Patient Temp 34mmHg (35-46) Arterial Blood pO2 at Patient Temp 128mmHg (75-108) Arterial Blood HCO3 21mmol/L (21-28) Arterial Blood Base Excess -3mmol/L (-3-3) FiO2 40 t tube Test 08/08/16 06:20 White Blood Count 5.2x10^3/uL (4.0-11.0) Red Blood Count 2.49x10^6/uL (4.30-5.70) Hemoglobin 7.9g/dL (13.0-17.5) Hematocrit 24.1% (39.0-53.0) Mean Corpuscular Volume 97fL (79-100) Mean Corpuscular Hemoglobin 32pg (25-35) Mean Corpuscular Hemoglobin Concent 33g/dL (31-37) Red Cell Distribution Width 16.6% (11.5-14.5) Platelet Count 120x10^3/uL (140-400) Neutrophils (%) (Auto) 85% (31-73) Lymphocytes (%) (Auto) 6% (24-48) Monocytes (%) (Auto) 8% (0-9) Eosinophils (%) (Auto) 0% (0-3) Basophils (%) (Auto) 0% (0-3) Neutrophils # (Auto) 4.4x10^3uL (1.8-7.7) Lymphocytes # (Auto) 0.3x10^3/uL (1.0-4.8) Monocytes # (Auto) 0.4x10^3/uL (0.0-1.1) Eosinophils # (Auto) 0.0x10^3/uL (0.0-0.7) Basophils # (Auto) 0.0x10^3/uL (0.0-0.2) Sodium Level 142mmol/L (136-145) Potassium Level 4.2mmol/L (3.5-5.1) Chloride Level 100mmol/L (98-107) Carbon Dioxide Level 24mmol/L (21-32) Anion Gap 18 (6-14) Blood Urea Nitrogen 120mg/dL (8-26) Creatinine 4.7mg/dL (0.7-1.3) Estimated GFR (Cockcroft-Gault) 12.9 Glucose Level 154mg/dL (70-99) Calcium Level 7.6mg/dL (8.5-10.1) Phosphorus Level 6.1mg/dL (2.6-4.7) Albumin 2.2g/dL (3.4-5.0) Micro 08/03 sputum Enterobacter cloacae complex Moderate growth SPUTUM CULT RES 2 Final Staphylococcus aureus Moderate growth Methicillin resistant (MRSA) Based on resistance to oxacillin this isolate would be resistant to all currently available beta-lactam antimicrobial agents, with the exception of the newer cephalosporins with anti-MRSA activity, such as Ceftaroline ANTIMICROBIAL SUSCEPTIBILITY Final Comment S = Susceptible; I = Intermediate; R = Resistant P = Positive; N = Negative MICS are expressed in micrograms per mL Antibiotic RSLT#1 RSLT#2 RSLT#3 RSLT#4 Amoxicillin/Clavulanic Acid R Cefazolin R Cefepime S Ceftriaxone S Cefuroxime R Ciprofloxacin S R CONTINUED ON NEXT PAGE RUN DATE: 08/05/16 PAGE 2 RUN TIME: 1436 [facility] [address] [place] [address] Neal Cole M.D., Conveyancer SPEC: [id number] PATIENT: CHARLY NAJERA [id number] ( Continued) Procedure Result Sputum 08/03 ANTIMICROBIAL SUSCEPTIBILITY Final (continued) Clindamycin R Ertapenem S Erythromycin R Gentamicin S S Imipenem S Levofloxacin S R Linezolid S Oxacillin R Penicillin R Piperacillin S Rifampin S Tetracycline S S Tobramycin S Trimethoprim/Sulfa S S Vancomycin S Objective Assessment 1. ? sepsis on Vanc/Zosyn/Micafungin 08/02 - improved. MRSA/Enterobacter sputum 2. Fever -? ID vs TEMPLATE CLERK bleed vs sinusitis, etc - improved 3. Perihepatic fluid on CT abd/pelvis 4. JAKE - s/p HD 5. S/p CABG x 3 ,S/p left ventricular assist device 07/25 6. S/p Chest wound closure 07/27 7. 07/28 - S/p Left external iliac artery subtotal occlusion, s/p successful angioplasty with a 7 x 80 mm balloon. LSFA stenosis, s/p successful angioplasty with a 4.0 x 20 mm balloon Successful removal of a Impella CP percutaneous left ventricular assist device. Primary repair of common femoral artery 8. Small extra-axial fluid collection posteriorly near the right hemispheric vertex consistent with a small area of bleeding CT head 08/01 - stable on recent CT 9. Sinusitis CT 08/01 10. Resp failure -on vent 11. Afib 12. Cardiogenic shock 13. Severe three-vessel coronary artery disease 14. ST elevation myocardial infarction - intra-op 15. Severe ischemic cardiomyopathy 16. Thrombocytopenia - better Plan Plan of Care S/p Trach/PEG 08/05 Cont Zyvox (08/05), Zosyn and Micafungin. Monitor labs Contact isolation HD today Critically ill but better CY MUKHERJEE MD Aug 08, 2016 07:59
[2016-08-08] MEDS: IPRATROPIUM BROMIDE 0.5 MG/2.5 ML NEBU. NEB SCH ×4 (09:22→20:33)
[2016-08-08 09:43] LABS: HCO3 ABG 23 mmol/L (21-28); PCO2 ABG 30 mmHg (35-46); PO2 ABG 115 mmHg (75-108); SAT O2 ABG 98 % (92-99)
[2016-08-08 09:50] LABS: FIO2 ABG 40
--- NOTE | 2016-08-08 10:08 | PDOC ---
Objective: Objective: Per RN - PEG functioning well. Has frequent stools (unchanged), now has rectal tube. Vital Signs: Vital Signs Date Time Temp Pulse Resp B/P Pulse Ox O2 Delivery O2 Flow Rate FiO2 08/08/16 09:00 106 28 95/60 99 BiPAP/CPAP 08/08/16 07:00 98.0 98.0 08/07/16 11:17 10.0 Labs: Laboratory Tests Test 08/07/16 11:35 08/07/16 16:36 08/08/16 00:17 Glucose (Fingerstick) 184mg/dL (70-99) 170mg/dL (70-99) 163mg/dL (70-99) PE: GEN: NAD LUNGS: trach, clear anteriorly HEART: tachy ABD: soft, BS+, PEG in place w/ gauze, seems non-tender NEURO/PSYCH: awake A/P: Resp failure/dysphagia -s/p trach/PEG 08/05 ---> tolerating PEG feeds -on IV PPI Frequent stools -rectal tube in place -- Continue same per GI. RUDOLPH MARTINEZ Aug 08, 2016 10:08
[2016-08-08] MEDS: MINERAL OIL/PETROLATUM,WHITE OPHTH OINT 3.5GM TUBE. OU SCH ×2 (10:54→21:16)
[2016-08-08] MEDS: CHLORHEXIDINE 0.12% 15 ML MOUTHWASH. MM SCH ×2 (10:54→19:59)
[2016-08-08] MEDS: AMIODARONE HCL 200 MG TABLET. PO SCH (10:54)
[2016-08-08] MEDS: PANTOPRAZOLE IV PUSH 40 MG VIAL. IVP SCH (10:54)
[2016-08-08] MEDS: SEVELAMER CARBONATE 2.4 GM PACKET. FT SCH ×2 (10:55→21:14)
[2016-08-08] MEDS: ASPIRIN 325 MG TABLET PO SCH (10:55)
[2016-08-08] MEDS: METOPROLOL TART IMMED RELEASE 25 MG TABLET. NG SCH ×2 (10:55→21:15)
[2016-08-08] MEDS: HEPARIN PF for SUB-Q USE 5,000 UNIT/0.5 ML VIAL. SQ SCH ×2 (10:56→21:18)
--- NOTE | 2016-08-08 11:40 | PDOC ---
CARDIO Progress Notes Date and Time Date of Service 08/08/16 Subjective Subjective: No Chest Pain, No shortness of breath, No Palpitations, Other ( resting in bed ) Vitals Vitals Vital Signs Date Time Temp Pulse Resp B/P Pulse Ox O2 Delivery O2 Flow Rate FiO2 08/08/16 10:55 98 107/62 08/08/16 10:00 27 98 Ventilator 08/08/16 07:00 98.0 98.0 08/07/16 11:17 10.0 Weight Weight [ ] Stability Assessment Stability Assess.: unstable for transfer (Intesive V. sign monit. req) Input and Output Intake and Output Intake and Output 08/08/16 07:00 Intake Total 2330 ml Output Total 253 ml Balance 2077 ml IV Total 400 ml Tube Feeding 1930 ml Output Urine Total 253 ml # Bowel Movements 6 Laboratory Labs Laboratory Tests Test 08/07/16 12:05 08/07/16 16:36 08/08/16 00:17 08/08/16 06:20 O2 Saturation 98% (92-99) Arterial Blood pH 7.42 (7.35-7.45) Arterial Blood pCO2 at Patient Temp 34mmHg (35-46) Arterial Blood pO2 at Patient Temp 128mmHg (75-108) Arterial Blood HCO3 21mmol/L (21-28) Arterial Blood Base Excess -3mmol/L (-3-3) FiO2 40 t tube Glucose (Fingerstick) 170mg/dL (70-99) 163mg/dL (70-99) White Blood Count 5.2x10^3/uL (4.0-11.0) Red Blood Count 2.49x10^6/uL (4.30-5.70) Hemoglobin 7.9g/dL (13.0-17.5) Hematocrit 24.1% (39.0-53.0) Mean Corpuscular Volume 97fL (79-100) Mean Corpuscular Hemoglobin 32pg (25-35) Mean Corpuscular Hemoglobin Concent 33g/dL (31-37) Red Cell Distribution Width 16.6% (11.5-14.5) Platelet Count 120x10^3/uL (140-400) Neutrophils (%) (Auto) 85% (31-73) Lymphocytes (%) (Auto) 6% (24-48) Monocytes (%) (Auto) 8% (0-9) Eosinophils (%) (Auto) 0% (0-3) Basophils (%) (Auto) 0% (0-3) Neutrophils # (Auto) 4.4x10^3uL (1.8-7.7) Lymphocytes # (Auto) 0.3x10^3/uL (1.0-4.8) Monocytes # (Auto) 0.4x10^3/uL (0.0-1.1) Eosinophils # (Auto) 0.0x10^3/uL (0.0-0.7) Basophils # (Auto) 0.0x10^3/uL (0.0-0.2) Sodium Level 142mmol/L (136-145) Potassium Level 4.2mmol/L (3.5-5.1) Chloride Level 100mmol/L (98-107) Carbon Dioxide Level 24mmol/L (21-32) Anion Gap 18 (6-14) Blood Urea Nitrogen 120mg/dL (8-26) Creatinine 4.7mg/dL (0.7-1.3) Estimated GFR (Cockcroft-Gault) 12.9 Glucose Level 154mg/dL (70-99) Calcium Level 7.6mg/dL (8.5-10.1) Phosphorus Level 6.1mg/dL (2.6-4.7) Albumin 2.2g/dL (3.4-5.0) Test 08/08/16 09:00 08/08/16 10:52 O2 Saturation 98% (92-99) Arterial Blood pH 7.50 (7.35-7.45) Arterial Blood pCO2 at Patient Temp 30mmHg (35-46) Arterial Blood pO2 at Patient Temp 115mmHg (75-108) Arterial Blood HCO3 23mmol/L (21-28) Arterial Blood Base Excess 0mmol/L (-3-3) FiO2 40 Glucose (Fingerstick) 130mg/dL (70-99) Microbiology Micro Microbiology 08/02/16 Blood Culture - Final, Complete NO GROWTH AFTER 5 DAYS 08/03/16 Sputum Culture - Final, Complete 08/03/16 Sputum Result 1 - Final, Complete 08/03/16 Sputum Result 2 - Final, Complete 08/03/16 Antimicrobic Susceptibility - Final, Complete 08/02/16 Urine Culture - Final, Complete 08/02/16 Urine Culture Result 1 (MILEY) - Final, Complete 08/03/16 Gram Stain - Final, Complete Case Discussion Case Discussed with: Family, Other (RN) Continued Hospitalization Reason for continued Hospitali: IVABX, abnormal labs Physical Exam HEENT: Neck Supple W Full Motion Chest: Symmetric LUNGS: Other (diminished bases. trach ) Heart: S1S2, irregularly irregular, other (AFIB/ flutter with controlled rate) Abdomen: Soft N/T Extremities: Other (2+ bilateral UE. trace LE edema ) Neurology: alert, other (awake) Assessment Assessment 1. STEMI CABG on 07/25/2016 with FLETCHER to LAD; SVG to LAD; SVG to OM1 and SVG to RPDA VF arrest post-op with post-op AL continue amiodarone, no significant ectopies overnight supportive care 2. Cardiogenic shock LVEF ~ 25-30% post CABG Off pressors. BP low-normotensive ACEi on hold currently with JAKE. 3. ischemic cardiomyopathy/anasarca LVEF mildly depressed @ 45% on echo pre-op then decreased as above Fluid off loading per HD Compensated 4. acute respiratory failure S/P trach 08/05 per pulm 5. JAKE continues on HD per nephrology 6. sepsis abx per ID CT chest/abd/pelvis 08/03/16 with perihepatic fluid; fluid in the paracolic gutter and anasarca suggested CT chest suggestive of atelectasis or pneumonia 7. HLD statin therapy 8. atrial fib remains controlled Unable to be aggressive with OAC due to #9 9. small right frontal SDH decreased on CT scan done 08/03/2016 10. metabolic encephalopathy improved 11. Critical illness neuropathy per Neuro 12. Postop anemia Hgb 7.9 ASHLEY TAYLOR FASHION MERCHANDISER Aug 08, 2016 11:40
--- NOTE | 2016-08-08 12:28 | PDOC ---
PULMONARY PROGRESS NOTES Subjective s/p trach 08/05 awake, off sedation Vitals Vital Signs Date Time Temp Pulse Resp B/P Pulse Ox O2 Delivery O2 Flow Rate FiO2 08/08/16 12:00 Mechanical Ventilator 08/08/16 12:00 98 32 111/65 100 08/08/16 11:05 98.4 98.4 08/07/16 11:17 10.0 General: Alert HEENT: Other (nc at perrl orally intubated nose clease. neck, no lap thyromegaly) Lungs: Other (decrease bs) Cardiovascular: Other (tachy) Abdomen: Soft, Non-tender, Other Extremities: Other (jaundice) Skin: Warm Labs Laboratory Tests Test 08/06/16 16:57 08/06/16 23:34 08/07/16 05:00 08/07/16 11:35 Glucose (Fingerstick) 158mg/dL (70-99) 195mg/dL (70-99) 184mg/dL (70-99) Sodium Level 143mmol/L (136-145) Potassium Level 4.2mmol/L (3.5-5.1) Chloride Level 102mmol/L (98-107) Carbon Dioxide Level 29mmol/L (21-32) Anion Gap 12 (6-14) Blood Urea Nitrogen 75mg/dL (8-26) Creatinine 3.3mg/dL (0.7-1.3) Estimated GFR (Cockcroft-Gault) 19.4 Glucose Level 165mg/dL (70-99) Calcium Level 7.9mg/dL (8.5-10.1) Phosphorus Level 6.3mg/dL (2.6-4.7) Albumin 2.4g/dL (3.4-5.0) Test 08/07/16 12:05 08/07/16 16:36 08/08/16 00:17 08/08/16 06:20 O2 Saturation 98% (92-99) Arterial Blood pH 7.42 (7.35-7.45) Arterial Blood pCO2 at Patient Temp 34mmHg (35-46) Arterial Blood pO2 at Patient Temp 128mmHg (75-108) Arterial Blood HCO3 21mmol/L (21-28) Arterial Blood Base Excess -3mmol/L (-3-3) FiO2 40 t tube Glucose (Fingerstick) 170mg/dL (70-99) 163mg/dL (70-99) White Blood Count 5.2x10^3/uL (4.0-11.0) Red Blood Count 2.49x10^6/uL (4.30-5.70) Hemoglobin 7.9g/dL (13.0-17.5) Hematocrit 24.1% (39.0-53.0) Mean Corpuscular Volume 97fL (79-100) Mean Corpuscular Hemoglobin 32pg (25-35) Mean Corpuscular Hemoglobin Concent 33g/dL (31-37) Red Cell Distribution Width 16.6% (11.5-14.5) Platelet Count 120x10^3/uL (140-400) Neutrophils (%) (Auto) 85% (31-73) Lymphocytes (%) (Auto) 6% (24-48) Monocytes (%) (Auto) 8% (0-9) Eosinophils (%) (Auto) 0% (0-3) Basophils (%) (Auto) 0% (0-3) Neutrophils # (Auto) 4.4x10^3uL (1.8-7.7) Lymphocytes # (Auto) 0.3x10^3/uL (1.0-4.8) Monocytes # (Auto) 0.4x10^3/uL (0.0-1.1) Eosinophils # (Auto) 0.0x10^3/uL (0.0-0.7) Basophils # (Auto) 0.0x10^3/uL (0.0-0.2) Sodium Level 142mmol/L (136-145) Potassium Level 4.2mmol/L (3.5-5.1) Chloride Level 100mmol/L (98-107) Carbon Dioxide Level 24mmol/L (21-32) Anion Gap 18 (6-14) Blood Urea Nitrogen 120mg/dL (8-26) Creatinine 4.7mg/dL (0.7-1.3) Estimated GFR (Cockcroft-Gault) 12.9 Glucose Level 154mg/dL (70-99) Calcium Level 7.6mg/dL (8.5-10.1) Phosphorus Level 6.1mg/dL (2.6-4.7) Albumin 2.2g/dL (3.4-5.0) Test 08/08/16 09:00 08/08/16 10:52 O2 Saturation 98% (92-99) Arterial Blood pH 7.50 (7.35-7.45) Arterial Blood pCO2 at Patient Temp 30mmHg (35-46) Arterial Blood pO2 at Patient Temp 115mmHg (75-108) Arterial Blood HCO3 23mmol/L (21-28) Arterial Blood Base Excess 0mmol/L (-3-3) FiO2 40 Glucose (Fingerstick) 130mg/dL (70-99) Laboratory Tests Test 08/07/16 16:36 08/08/16 00:17 08/08/16 06:20 08/08/16 09:00 Glucose (Fingerstick) 170mg/dL (70-99) 163mg/dL (70-99) White Blood Count 5.2x10^3/uL (4.0-11.0) Red Blood Count 2.49x10^6/uL (4.30-5.70) Hemoglobin 7.9g/dL (13.0-17.5) Hematocrit 24.1% (39.0-53.0) Mean Corpuscular Volume 97fL (79-100) Mean Corpuscular Hemoglobin 32pg (25-35) Mean Corpuscular Hemoglobin Concent 33g/dL (31-37) Red Cell Distribution Width 16.6% (11.5-14.5) Platelet Count 120x10^3/uL (140-400) Neutrophils (%) (Auto) 85% (31-73) Lymphocytes (%) (Auto) 6% (24-48) Monocytes (%) (Auto) 8% (0-9) Eosinophils (%) (Auto) 0% (0-3) Basophils (%) (Auto) 0% (0-3) Neutrophils # (Auto) 4.4x10^3uL (1.8-7.7) Lymphocytes # (Auto) 0.3x10^3/uL (1.0-4.8) Monocytes # (Auto) 0.4x10^3/uL (0.0-1.1) Eosinophils # (Auto) 0.0x10^3/uL (0.0-0.7) Basophils # (Auto) 0.0x10^3/uL (0.0-0.2) Sodium Level 142mmol/L (136-145) Potassium Level 4.2mmol/L (3.5-5.1) Chloride Level 100mmol/L (98-107) Carbon Dioxide Level 24mmol/L (21-32) Anion Gap 18 (6-14) Blood Urea Nitrogen 120mg/dL (8-26) Creatinine 4.7mg/dL (0.7-1.3) Estimated GFR (Cockcroft-Gault) 12.9 Glucose Level 154mg/dL (70-99) Calcium Level 7.6mg/dL (8.5-10.1) Phosphorus Level 6.1mg/dL (2.6-4.7) Albumin 2.2g/dL (3.4-5.0) O2 Saturation 98% (92-99) Arterial Blood pH 7.50 (7.35-7.45) Arterial Blood pCO2 at Patient Temp 30mmHg (35-46) Arterial Blood pO2 at Patient Temp 115mmHg (75-108) Arterial Blood HCO3 23mmol/L (21-28) Arterial Blood Base Excess 0mmol/L (-3-3) FiO2 40 Test 08/08/16 10:52 Glucose (Fingerstick) 130mg/dL (70-99) Medications Active Scripts Medications Dose Route/Sig Days Date Category Amlodipine Besylate 5 Mg Tablet 5 Mg PO DAILY 07/20/16 Reported Pradaxa (Dabigatran Etexilate Mesylate) 150 Mg Capsule 1 Cap PO BID 07/20/16 Reported Metoprolol Succinate ( Xl ) (Metoprolol Succinate) 100 Mg Tab.er.24h 1 Tab PO DAILY 07/20/16 Reported Comments cxr reviewed,08/06 small LLL effusion Impression . 1. Expected respiratory failure, status post coronary artery bypass grafting. 2. Cardiogenic shock. followed by septic shock, improved 3. Early post-myocardial infarction complicated with ventricular fibrillation , s/p multiple shocks. 4. Status post implantation of Impella from mechanical circulating support. 5. 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 6. Tobacco use in remission. Spirometry revealed an FEV1, which was 3.2 liters preoperatively. 7. Nutrition, currently on tube feeding. 8. History of hypertension. 9. Severe cardiomyopathy ejection fraction 25%. 10. Peripheral artery disease. 11. Atrial fibrillation. 12. Encephalopathy multifactorial (hepatic, metabolic), improved 13. High grade fever, sepsis, ? source, less likely lungs.ct chest reviewed. responding to antibiotics 14. Abnormal LFT due to sepsis, improving 15. renal failure , on HD Plan . 1. s/p trach 08/05 1. CPAP trial again today, may do T-collar again today 2. Continue nutritional support with tube feeding. 3. off pressors, Pt does not tolerate dobutamine(increase HR) 4. HD 5. Continue BS empiric antibiotics. 6. repeat LFT d/w MICHAEL PAIZ MD Aug 08, 2016 12:28
--- NOTE | 2016-08-08 13:50 | PDOC ---
Progress Note Subjective Subjective Doing well with T-collar and pressure support of 12. Tube feeds at goal. Had dialysis today. MRSA in resp cultures. On Linezolid. Slept last night ROS ROS No nausea No vomiting No pain No SOB No rash Vital Sign Vital Signs Vital Signs Date Time Temp Pulse Resp B/P Pulse Ox O2 Delivery O2 Flow Rate FiO2 08/08/16 13:27 Ventilator 08/08/16 13:14 100 08/08/16 12:00 98 32 111/65 08/08/16 11:05 98.4 98.4 08/07/16 11:17 10.0 Physical Exam PHYSICAL EXAM GENERAL: Alert, following commands HEENT: Pupils reactive NECK: Supple LUNGS: Clear HEART: S1S2 CHEST: sternotomy: D/C/I ABD: Soft, NT EXT: edema improved, warm well perfused, pedal pulses palpable [employer]: follows commands, extremities weak SKIN: No rash IV: ok Labs Lab Laboratory Tests Test 08/07/16 16:36 08/08/16 00:17 08/08/16 06:20 08/08/16 09:00 Glucose (Fingerstick) 170mg/dL (70-99) 163mg/dL (70-99) White Blood Count 5.2x10^3/uL (4.0-11.0) Red Blood Count 2.49x10^6/uL (4.30-5.70) Hemoglobin 7.9g/dL (13.0-17.5) Hematocrit 24.1% (39.0-53.0) Mean Corpuscular Volume 97fL (79-100) Mean Corpuscular Hemoglobin 32pg (25-35) Mean Corpuscular Hemoglobin Concent 33g/dL (31-37) Red Cell Distribution Width 16.6% (11.5-14.5) Platelet Count 120x10^3/uL (140-400) Neutrophils (%) (Auto) 85% (31-73) Lymphocytes (%) (Auto) 6% (24-48) Monocytes (%) (Auto) 8% (0-9) Eosinophils (%) (Auto) 0% (0-3) Basophils (%) (Auto) 0% (0-3) Neutrophils # (Auto) 4.4x10^3uL (1.8-7.7) Lymphocytes # (Auto) 0.3x10^3/uL (1.0-4.8) Monocytes # (Auto) 0.4x10^3/uL (0.0-1.1) Eosinophils # (Auto) 0.0x10^3/uL (0.0-0.7) Basophils # (Auto) 0.0x10^3/uL (0.0-0.2) Sodium Level 142mmol/L (136-145) Potassium Level 4.2mmol/L (3.5-5.1) Chloride Level 100mmol/L (98-107) Carbon Dioxide Level 24mmol/L (21-32) Anion Gap 18 (6-14) Blood Urea Nitrogen 120mg/dL (8-26) Creatinine 4.7mg/dL (0.7-1.3) Estimated GFR (Cockcroft-Gault) 12.9 Glucose Level 154mg/dL (70-99) Calcium Level 7.6mg/dL (8.5-10.1) Phosphorus Level 6.1mg/dL (2.6-4.7) Albumin 2.2g/dL (3.4-5.0) O2 Saturation 98% (92-99) Arterial Blood pH 7.50 (7.35-7.45) Arterial Blood pCO2 at Patient Temp 30mmHg (35-46) Arterial Blood pO2 at Patient Temp 115mmHg (75-108) Arterial Blood HCO3 23mmol/L (21-28) Arterial Blood Base Excess 0mmol/L (-3-3) FiO2 40 Test 08/08/16 10:52 Glucose (Fingerstick) 130mg/dL (70-99) Objective Assessment Status post CABG 3 for severe ischemic cardiomyopathy, large anterior STEMI with troponin of 100, with early postoperative myocardial infarction/V. fib, leading to cardiogenic shock, placement of the vein graft to the LAD and impella for mechanical circulatory support and open chest. Sternotomy has been closed and the LVAD has been removed. The patient subsequently developed septic shock of unknown etiology. He has now recovered from sepsis although he did develop acute renal failure requiring dialysis. Now s/p trach/PEG. Doing well with T-collar and pressure support of 12. Tube feeds at goal. Had dialysis today. MRSA in resp cultures. On Linezolid Plan Plan of Care Attempt trach shield today Reduce amiodarone to 400mg once daily IV antibiotics-one more week? Will ask ID Dialysis as per nephrology Needs PT. Out of the bed to a chair. Try and stand, possibly ambulate Ok to transfer to [facility] OLGA LOPEZ MD Aug 08, 2016 13:50
--- NOTE | 2016-08-08 14:00 | PDOC ---
PROGRESS NOTES Chief Complaint Chief Complaint cc: chest pain Severe three-vessel coronary artery disease found on cath S/P CABG x3 Resp failure on Vent Mediastinal Washout Multiple procedures -A-fib -Hypertension History of Present Illness History of Present Illness Mr. Alvarado was lying in bed with a ventilator in place. He was able to follow commands. A PEG tube is in place, and a tracheal tube was present. His pupils were reactive. The patient was completing dialysis when we were present. Vitals Vitals Vital Signs Date Time Temp Pulse Resp B/P Pulse Ox O2 Delivery O2 Flow Rate FiO2 08/08/16 13:27 Ventilator 08/08/16 13:14 100 08/08/16 13:00 100 32 106/62 08/08/16 11:05 98.4 98.4 08/07/16 11:17 10.0 Physical Exam General: Cooperative, No acute distress Heart: Normal S1, Normal S2, No murmurs Lungs: Clear, Other (No chest retractions were present.) Abdomen: No tenderness, No masses Extremities: No clubbing, No edema Skin: No breakdown, No significant lesion Labs LABS Laboratory Tests Test 08/07/16 16:36 08/08/16 00:17 08/08/16 06:20 08/08/16 09:00 Glucose (Fingerstick) 170mg/dL (70-99) 163mg/dL (70-99) White Blood Count 5.2x10^3/uL (4.0-11.0) Red Blood Count 2.49x10^6/uL (4.30-5.70) Hemoglobin 7.9g/dL (13.0-17.5) Hematocrit 24.1% (39.0-53.0) Mean Corpuscular Volume 97fL (79-100) Mean Corpuscular Hemoglobin 32pg (25-35) Mean Corpuscular Hemoglobin Concent 33g/dL (31-37) Red Cell Distribution Width 16.6% (11.5-14.5) Platelet Count 120x10^3/uL (140-400) Neutrophils (%) (Auto) 85% (31-73) Lymphocytes (%) (Auto) 6% (24-48) Monocytes (%) (Auto) 8% (0-9) Eosinophils (%) (Auto) 0% (0-3) Basophils (%) (Auto) 0% (0-3) Neutrophils # (Auto) 4.4x10^3uL (1.8-7.7) Lymphocytes # (Auto) 0.3x10^3/uL (1.0-4.8) Monocytes # (Auto) 0.4x10^3/uL (0.0-1.1) Eosinophils # (Auto) 0.0x10^3/uL (0.0-0.7) Basophils # (Auto) 0.0x10^3/uL (0.0-0.2) Sodium Level 142mmol/L (136-145) Potassium Level 4.2mmol/L (3.5-5.1) Chloride Level 100mmol/L (98-107) Carbon Dioxide Level 24mmol/L (21-32) Anion Gap 18 (6-14) Blood Urea Nitrogen 120mg/dL (8-26) Creatinine 4.7mg/dL (0.7-1.3) Estimated GFR (Cockcroft-Gault) 12.9 Glucose Level 154mg/dL (70-99) Calcium Level 7.6mg/dL (8.5-10.1) Phosphorus Level 6.1mg/dL (2.6-4.7) Albumin 2.2g/dL (3.4-5.0) O2 Saturation 98% (92-99) Arterial Blood pH 7.50 (7.35-7.45) Arterial Blood pCO2 at Patient Temp 30mmHg (35-46) Arterial Blood pO2 at Patient Temp 115mmHg (75-108) Arterial Blood HCO3 23mmol/L (21-28) Arterial Blood Base Excess 0mmol/L (-3-3) FiO2 40 Test 08/08/16 10:52 Glucose (Fingerstick) 130mg/dL (70-99) Review of Systems Review of Systems The patient was unable to complete this portion of the exam as he could not respond. Assessment and Plan Assessmemt and Plan Problems Medical Problems: (1) CAD (coronary artery disease), [place] coronary artery Status: Acute (2) Chest pain Status: Acute (3) STEMI (ST elevation myocardial infarction) Status: Acute Assessment: Mr. Alvarado is a 56 year old man who initially presented with chest pain.cc: chest pain then went for CABG Severe three-vessel coronary artery disease found on cath S/P CABG x3 Resp failure on Vent Mediastinal Washout Multiple procedures -A-fib -Hypertension -A-fib -Hypertension Plan: 1. Continue PT/OT 2. Recheck labs 3. Referral to social media marketing analyst for LTAC placement 4. Monitor anemia for changes, likely chronic disease related -Continue Darbepoetin alpha 5. Continue linezolid and Zosyn with antifungal for possible sepsis per ID 6. Continue PPI for PEG feeds 7. Continue anxiolytics and anti-psychotics prn 8. Continue sevelamer for high phosphorous due to kidney disease 9. Continue DVT prophylaxis 10. Continue pain management with fentanyl and acetaminophen 11. Continue metoprolol for cardiogenic shock per cardiology 12. Continue breathing treatments 13. Continue norepinephrine prn hypotension 14. Continue atorvastatin for HLD per cardiology 15. Appreciate consultation from IR, nephrology, cardiology, ID, neurology, pulmonology, gastroenterology, and cardiothoracic surgery Total time 32 minutes Problems: Comment Review of Relevant I have reviewed the following items leonidas (where applicable) has been applied. Labs Laboratory Tests Test 08/06/16 16:57 08/06/16 23:34 08/07/16 05:00 08/07/16 11:35 Glucose (Fingerstick) 158mg/dL (70-99) 195mg/dL (70-99) 184mg/dL (70-99) Sodium Level 143mmol/L (136-145) Potassium Level 4.2mmol/L (3.5-5.1) Chloride Level 102mmol/L (98-107) Carbon Dioxide Level 29mmol/L (21-32) Anion Gap 12 (6-14) Blood Urea Nitrogen 75mg/dL (8-26) Creatinine 3.3mg/dL (0.7-1.3) Estimated GFR (Cockcroft-Gault) 19.4 Glucose Level 165mg/dL (70-99) Calcium Level 7.9mg/dL (8.5-10.1) Phosphorus Level 6.3mg/dL (2.6-4.7) Albumin 2.4g/dL (3.4-5.0) Test 08/07/16 12:05 08/07/16 16:36 08/08/16 00:17 08/08/16 06:20 O2 Saturation 98% (92-99) Arterial Blood pH 7.42 (7.35-7.45) Arterial Blood pCO2 at Patient Temp 34mmHg (35-46) Arterial Blood pO2 at Patient Temp 128mmHg (75-108) Arterial Blood HCO3 21mmol/L (21-28) Arterial Blood Base Excess -3mmol/L (-3-3) FiO2 40 t tube Glucose (Fingerstick) 170mg/dL (70-99) 163mg/dL (70-99) White Blood Count 5.2x10^3/uL (4.0-11.0) Red Blood Count 2.49x10^6/uL (4.30-5.70) Hemoglobin 7.9g/dL (13.0-17.5) Hematocrit 24.1% (39.0-53.0) Mean Corpuscular Volume 97fL (79-100) Mean Corpuscular Hemoglobin 32pg (25-35) Mean Corpuscular Hemoglobin Concent 33g/dL (31-37) Red Cell Distribution Width 16.6% (11.5-14.5) Platelet Count 120x10^3/uL (140-400) Neutrophils (%) (Auto) 85% (31-73) Lymphocytes (%) (Auto) 6% (24-48) Monocytes (%) (Auto) 8% (0-9) Eosinophils (%) (Auto) 0% (0-3) Basophils (%) (Auto) 0% (0-3) Neutrophils # (Auto) 4.4x10^3uL (1.8-7.7) Lymphocytes # (Auto) 0.3x10^3/uL (1.0-4.8) Monocytes # (Auto) 0.4x10^3/uL (0.0-1.1) Eosinophils # (Auto) 0.0x10^3/uL (0.0-0.7) Basophils # (Auto) 0.0x10^3/uL (0.0-0.2) Sodium Level 142mmol/L (136-145) Potassium Level 4.2mmol/L (3.5-5.1) Chloride Level 100mmol/L (98-107) Carbon Dioxide Level 24mmol/L (21-32) Anion Gap 18 (6-14) Blood Urea Nitrogen 120mg/dL (8-26) Creatinine 4.7mg/dL (0.7-1.3) Estimated GFR (Cockcroft-Gault) 12.9 Glucose Level 154mg/dL (70-99) Calcium Level 7.6mg/dL (8.5-10.1) Phosphorus Level 6.1mg/dL (2.6-4.7) Albumin 2.2g/dL (3.4-5.0) Test 08/08/16 09:00 08/08/16 10:52 O2 Saturation 98% (92-99) Arterial Blood pH 7.50 (7.35-7.45) Arterial Blood pCO2 at Patient Temp 30mmHg (35-46) Arterial Blood pO2 at Patient Temp 115mmHg (75-108) Arterial Blood HCO3 23mmol/L (21-28) Arterial Blood Base Excess 0mmol/L (-3-3) FiO2 40 Glucose (Fingerstick) 130mg/dL (70-99) Laboratory Tests Test 08/07/16 16:36 08/08/16 00:17 08/08/16 06:20 08/08/16 09:00 Glucose (Fingerstick) 170mg/dL (70-99) 163mg/dL (70-99) White Blood Count 5.2x10^3/uL (4.0-11.0) Red Blood Count 2.49x10^6/uL (4.30-5.70) Hemoglobin 7.9g/dL (13.0-17.5) Hematocrit 24.1% (39.0-53.0) Mean Corpuscular Volume 97fL (79-100) Mean Corpuscular Hemoglobin 32pg (25-35) Mean Corpuscular Hemoglobin Concent 33g/dL (31-37) Red Cell Distribution Width 16.6% (11.5-14.5) Platelet Count 120x10^3/uL (140-400) Neutrophils (%) (Auto) 85% (31-73) Lymphocytes (%) (Auto) 6% (24-48) Monocytes (%) (Auto) 8% (0-9) Eosinophils (%) (Auto) 0% (0-3) Basophils (%) (Auto) 0% (0-3) Neutrophils # (Auto) 4.4x10^3uL (1.8-7.7) Lymphocytes # (Auto) 0.3x10^3/uL (1.0-4.8) Monocytes # (Auto) 0.4x10^3/uL (0.0-1.1) Eosinophils # (Auto) 0.0x10^3/uL (0.0-0.7) Basophils # (Auto) 0.0x10^3/uL (0.0-0.2) Sodium Level 142mmol/L (136-145) Potassium Level 4.2mmol/L (3.5-5.1) Chloride Level 100mmol/L (98-107) Carbon Dioxide Level 24mmol/L (21-32) Anion Gap 18 (6-14) Blood Urea Nitrogen 120mg/dL (8-26) Creatinine 4.7mg/dL (0.7-1.3) Estimated GFR (Cockcroft-Gault) 12.9 Glucose Level 154mg/dL (70-99) Calcium Level 7.6mg/dL (8.5-10.1) Phosphorus Level 6.1mg/dL (2.6-4.7) Albumin 2.2g/dL (3.4-5.0) O2 Saturation 98% (92-99) Arterial Blood pH 7.50 (7.35-7.45) Arterial Blood pCO2 at Patient Temp 30mmHg (35-46) Arterial Blood pO2 at Patient Temp 115mmHg (75-108) Arterial Blood HCO3 23mmol/L (21-28) Arterial Blood Base Excess 0mmol/L (-3-3) FiO2 40 Test 08/08/16 10:52 Glucose (Fingerstick) 130mg/dL (70-99) Microbiology 08/02/16 Blood Culture - Final, Complete NO GROWTH AFTER 5 DAYS 08/03/16 Sputum Culture - Final, Complete 08/03/16 Sputum Result 1 - Final, Complete 08/03/16 Sputum Result 2 - Final, Complete 08/03/16 Antimicrobic Susceptibility - Final, Complete 08/02/16 Urine Culture - Final, Complete 08/02/16 Urine Culture Result 1 (MILEY) - Final, Complete 08/03/16 Gram Stain - Final, Complete Medications Current Medications Nitroglycerin 0.4 mg 0.4 mg PRN Q5MIN PRN SL CP RATING > 04/26; Start 07/20/16 at 09:45; Stop 07/20/16 at 15:05; Status DC Nitroglycerin/ Dextrose (Nitroglycerin Drip) 250 ml @ 3 mls/hr 1X ONCE IV Last administered on 07/20/16 10:02; Start 07/20/16 at 10:30; Stop 07/23/16 at 21: 49; Status DC Morphine Sulfate 2 mg PRN Q15MIN PRN IV/SQ PAIN GREATER THAN 3/10; Start at 09:45; Stop 07/21/16 at 09:44; Status DC Ondansetron HCl (Zofran) 4 mg PRN Q8HRS PRN IV NAUSEA/VOMITING; Start 07/20/16 at 12:30; Stop 07/20/16 at 13:36; Status DC Morphine Sulfate 2 mg 2 mg PRN Q2HR PRN IV PAIN; Start 07/20/16 at 12:30; Stop 07/21/16 at 12:29; Status DC Heparin Sodium/ Dextrose 500 ml @ 0 mls/hr CONT PRN IV . Last administered on 10:32; Start 07/20/16 at 13:00; Stop 07/21/16 at 14:50; Status DC Metoprolol Tartrate (Lopressor) 5 mg Q6HRS IVP ; Start 07/20/16 at 13:00; Stop at 14:53; Status DC Aspirin (Ecotrin) 325 mg [id number] PO Last administered on 07/21/16 08:11; Start 07/20/16 at 13:00; Stop 07/21/16 at 17:20; Status DC Ondansetron HCl (Zofran) 4 mg PRN Q6HRS PRN IV NAUSEA/VOMITING; Start 07/20/16 at 13:35; Stop 07/26/16 at 11:41; Status DC Acetaminophen (Tylenol) 500 mg PRN Q6HRS PRN PO MILD PAIN / TEMP Last administered on 07/29/16 09:55; Start 07/20/16 at 13:45; Stop 07/29/16 at 13:38 ; Status DC Docusate Sodium (Colace) 100 mg DAILY PO Last administered on 07/29/16 09:54; Start 07/20/16 at 15:00; Stop 07/29/16 at 10:03; Status DC Iohexol 100 ml 100 ml STK-MED ONCE .ROUTE ; Start 07/20/16 at 12:40; Stop at 13:44; Status DC Heparin Sodium/ Sodium Chloride 1,000 ml @ As Directed STK-MED ONCE .ROUTE ; Start 07/20/16 at 12:41; Stop 07/20/16 at 13:44; Status DC Lidocaine HCl 20 ml STK-MED ONCE .ROUTE ; Start 07/20/16 at 12:41; Stop 07/20/16 at 13:44; Status DC Fentanyl Citrate (Fentanyl 2ml Vial) 100 mcg STK-MED ONCE .ROUTE ; Start at 13:42; Stop 07/20/16 at 13:45; Status DC Midazolam HCl (Versed) 2 mg STK-MED ONCE .ROUTE ; Start 07/20/16 at 13:42; Stop 07/20/16 at 13:45; Status DC Heparin Sodium/ Sodium Chloride 1,000 unit 1X ONCE IART Last administered on 14:29; Start 07/20/16 at 14:00; Stop 07/20/16 at 14:01; Status DC Heparin Sodium/ Sodium Chloride 1,000 unit 1X ONCE IART Last administered on 14:29; Start 07/20/16 at 14:00; Stop 07/20/16 at 14:01; Status DC Midazolam HCl (Versed) 2 mg 1X ONCE IV Last administered on 07/20/16 14:28; Start 07/20/16 at 14:00; Stop 07/20/16 at 14:01; Status DC Fentanyl Citrate (Fentanyl 2ml Vial) 100 mcg 1X ONCE IV Last administered on 14:28; Start 07/20/16 at 14:00; Stop 07/20/16 at 14:01; Status DC Iohexol (Omnipaque 300 Mg/ml) 100 ml 1X ONCE IART Last administered on 14:29; Start 07/20/16 at 14:00; Stop 07/20/16 at 14:01; Status DC Lidocaine HCl 20 ml 1X ONCE IJ Last administered on 07/20/16 14:29; Start 07/20 at 14:00; Stop 07/20/16 at 14:01; Status DC Midazolam HCl (Versed) 2 mg STK-MED ONCE .ROUTE ; Start 07/20/16 at 14:15; Stop 07/20/16 at 14:16; Status DC Sodium Chloride 3 ml 3 ml QSHIFT PRN IV AFTER MEDS AND BLOOD DRAWS; Start at 14:45; Stop 07/29/16 at 13:51; Status DC Sodium Chloride (Iv Sodium Chloride 0.9% 1000ml Bag) 1,000 ml @ 60 mls/hr [id number] IV Last administered on 07/20/16 14:44; Start 07/20/16 at 14:44; Stop at 00:43; Status DC Metoprolol Tartrate (Lopressor) 12.5 mg BID PO ; Start 07/20/16 at 21:00; Stop at 21:00; Status DC Lisinopril (Prinivil) 5 mg DAILY PO Last administered on 07/20/16 16:25; Start 07/20/16 at 15:00; Stop 07/20/16 at 17:21; Status DC Atorvastatin Calcium (Lipitor) 20 mg QHS PO Last administered on 07/20/16 20:33 ; Start 07/20/16 at 21:00; Stop 07/21/16 at 08:11; Status DC Nitroglycerin (Nitrostat) 0.4 mg PRN Q5MIN PRN SL CHEST PAIN Last administered on 07/25/16 04:55; Start 07/20/16 at 14:45; Stop 07/26/16 at 11:41; Status DC Hydralazine HCl (Apresoline) 10 mg PRN Q4HRS PRN IVP ELEVATED BP, SEE COMMENTS Last administered on 07/31/16 10:58; Start 07/20/16 at 17:15; Stop 07/31/16 at 13:31; Status DC Metoprolol Tartrate (Lopressor) 50 mg BID PO Last administered on 07/22/16 08: 31; Start 07/20/16 at 21:00; Stop 07/22/16 at 19:03; Status DC Alprazolam (Xanax) 0.25 mg PRN Q8HRS PRN PO ANXIETY / AGITATION Last administered on 07/24/16 21:34; Start 07/20/16 at 17:30; Stop 07/29/16 at 13:38; Status DC Heparin Sodium (Porcine) 2050 unit 2,050 unit PRN Q6HRS PRN IV FOR UFH LEVEL LESS THAN 0.2 Last administered on 07/21/16 04:24; Start 07/20/16 at 19:45; Stop 07/26/16 at 08:55; Status DC Heparin Sodium/ Dextrose 500 ml @ 19.4 mls/hr CONT PRN IV SEE I/O RECORD; Start 07/20/16 at 19:45; Stop 07/21/16 at 16:24; Status DC Heparin Sodium (Porcine) (Heparin Sodium) 2,050 unit PRN Q6HRS PRN IV FOR UFH LEVEL LESS THAN 0.2; Start 07/20/16 at 19:45; Status UNV Atorvastatin Calcium (Lipitor) 40 mg QHS PO Last administered on 08/07/16 21: 05; Start 07/21/16 at 21:00 Iodixanol (Visipaque 320) 200 ml STK-MED ONCE .ROUTE ; Start 07/20/16 at 14:00; Stop 07/21/16 at 08:26; Status DC Zolpidem Tartrate (Ambien) 5 mg PRN QHS PRN PO INSOMNIA, MAY REPEAT IN 1HR; Start 07/21/16 at 15:30; Stop 07/29/16 at 13:38; Status DC Metoprolol Tartrate 25 mg 25 mg 1X ONCE PO ; Start 07/22/16 at 06:00; Stop at 06:02; Status DC Cefazolin Sodium/ Dextrose 50 ml @ 100 mls/hr 1X ONCE IV ; Start 07/22/16 at 06 :00; Stop 07/22/16 at 06:29; Status DC Heparin Sodium/ Dextrose 500 ml @ 0 mls/hr CONT PRN IV SEE I/O RECORD Last administered on 07/24/16 01:40; Start 07/21/16 at 16:30; Stop 07/26/16 at 08:55; Status DC Lidocaine HCl 2 ml 2 ml 1X PRN PRN ID IV START; Start 07/25/16 at 06:00; Stop 07/26/16 at 05:59; Status Cancel Lactated Ringer's (Iv Lactated Ringers) 1,000 ml @ 0 mls/hr Q0M IV Last administered on 07/25/16t 07:30; Start 07/25/16 at 06:00; Stop 07/25/16 at 17:59 ; Status DC Fentanyl Citrate (Fentanyl 2ml Vial) 25 mcg PRN Q5MIN PRN IV Acute Pain; Start 07/22/16 at 09:15; Stop 07/23/16 at 09:14; Status DC Morphine Sulfate 2 mg PRN Q10MIN PRN IV Mild Pain; Start 07/22/16 at 09:15; Stop 07/23/16 at 09:14; Status DC Hydromorphone HCl (Dilaudid) 0.4 mg PRN Q10MIN PRN IV Moderate to severe pain; Start 07/22/16 at 09:15; Stop 07/23/16 at 09:14; Status DC Ondansetron HCl (Zofran) 4 mg PRN Q6HRS PRN IV Nausea, 1st Choice; Start at 09:15; Stop 07/23/16 at 09:14; Status DC Prochlorperazine Edisylate (Compazine) 5 mg PRN Q6HRS PRN IV Nausea/Vomiting, 2nd Choice; Start 07/22/16 at 09:15; Stop 07/23/16 at 09:14; Status DC Ondansetron HCl (Zofran) 4 mg PRN Q6HRS PRN IV NAUSEA/VOMITING; Start 07/25/16 at 07:00; Stop 07/26/16 at 06:59; Status DC Fentanyl Citrate (Fentanyl 2ml Vial) 25 mcg PRN Q5MIN PRN IV MILD PAIN; Start 07/25/16 at 07:00; Stop 07/26/16 at 06:59; Status DC Fentanyl Citrate (Fentanyl 2ml Vial) 50 mcg PRN Q5MIN PRN IV MODERATE PAIN; Start 07/25/16 at 07:00; Stop 07/26/16 at 06:59; Status DC Morphine Sulfate 1 mg 1 mg PRN Q10MIN PRN IV SEVERE PAIN; Start 07/25/16 at 07: 00; Stop 07/25/16 at 20:28; Status DC Lactated Ringer's (Iv Lactated Ringers) 1,000 ml @ 0 mls/hr Q0M IV ; Start 01/31 at 07:00; Stop 07/25/16 at 18:59; Status Cancel Lidocaine HCl 2 ml PRN 1X PRN ID PRIOR TO IV START Last administered on 07:16; Start 07/25/16 at 07:00; Stop 07/26/16 at 06:59; Status DC Hydromorphone HCl (Dilaudid) 0.5 mg PRN Q10MIN PRN IV SEV PAIN, Second choice; Start 07/25/16 at 07:00; Stop 07/26/16 at 06:59; Status DC Prochlorperazine Edisylate 5 mg 5 mg PACU PRN PRN IV NAUSEA, MRX1; Start at 07:00; Stop 07/26/16 at 06:59; Status DC Cefazolin Sodium/ Dextrose (Ancef 2gm Premix) 50 ml @ 100 mls/hr 1X ONCE IV Last administered on 07/25/16 08:12; Start 07/25/16 at 06:00; Stop 07/25/16 at 06:29; Status DC Metoprolol Tartrate (Lopressor) 25 mg 1X ONCE PO ; Start 07/25/16 at 06:00; Stop 07/25/16 at 06:00; Status DC Metoprolol Tartrate (Lopressor) 2.5 mg 1X ONCE IVP Last administered on 16:30; Start 07/22/16 at 16:30; Stop 07/22/16 at 16:31; Status DC Digoxin (Lanoxin) 250 mcg 1X ONCE IV ; Start 07/22/16 at 18:30; Stop 07/22/16 at 18:42; Status DC Digoxin (Lanoxin) 500 mcg 1X ONCE IV Last administered on 07/22/16 18:47; Start 07/22/16 at 18:45; Stop 07/22/16 at 18:46; Status DC Metoprolol Tartrate (Lopressor) 75 mg BID PO Last administered on 07/24/16 21: 30; Start 07/22/16 at 21:00; Stop 07/25/16 at 13:12; Status DC Nitroglycerin 0.4 mg 0.4 mg PRN Q5MIN PRN SL CHEST PAIN; Start 07/23/16 at 12:00 ; Status UNV Heparin Sodium (Porcine) 41843 unit/Lactated Ringer's 1,020 ml @ 1,020 mls/hr 1X PERIOP ONCE IRR Last administered on 07/25/16t 08:46; Start 07/25/16 at 06: 00; Stop 07/25/16 at 06:59; Status DC Potassium Chloride 70 meq/ Sodium Bicarbonate 12.5 meq/Lidocaine HCl 24 ml/ Parenteral Electrolytes 571.5 ml @ 571.5 mls/ hr 1X PERIOP ONCE IRR ; Start at 06:00; Stop 07/25/16 at 06:59; Status DC Potassium Chloride/Sodium Bicarbonate/ Parenteral Electrolytes (Isolyte S) 520 ml @ 520 mls/hr 1X PERIOP ONCE IRR ; Start 07/25/16 at 06:00; Stop 07/25/16 at 06:59; Status DC Etomidate (Amidate) 20 mg STK-MED ONCE IV ; Start 07/25/16 at 06:08; Stop at 06:09; Status DC Phenylephrine HCl (-Synephrine Inj) 10 mg STK-MED ONCE .ROUTE ; Start at 06:08; Stop 07/25/16 at 06:09; Status DC Aminocaproic Acid (Amicar) 5,000 mg STK-MED ONCE IV ; Start 07/25/16 at 06:08; Stop 07/25/16 at 06:09; Status DC Heparin Sodium (Porcine) (Heparin Sodium) 10,000 unit STK-MED ONCE .ROUTE ; Start 07/25/16 at 06:10; Stop 07/25/16 at 06:11; Status DC Rocuronium [place] (Zemuron) 100 mg STK-MED ONCE .ROUTE ; Start 07/25/16 at 06: 11; Stop 07/25/16 at 06:12; Status DC Morphine Sulfate 4 mg STK-MED ONCE .ROUTE ; Start 07/25/16 at 06:59; Stop at 07:00; Status DC Morphine Sulfate 4 mg 4 mg 1X ONCE IV ; Start 07/25/16 at 07:15; Stop 07/25/16 at 07:16; Status DC Cefazolin Sodium/ Sodium Chloride (Ancef/Iv Sodium Chloride 0.9% 500ml Bag) 500 ml @ 500 mls/hr 1X PERIOP ONCE IRR Last administered on 07/25/16 08:46; Start 07/25/16 at 07:15; Stop 07/25/16 at 08:14; Status DC Cellulose 1 each STK-MED ONCE .ROUTE Last administered on 07/25/16 08:46; Start 07/25/16 at 07:07; Stop 07/25/16 at 07:08; Status DC Vancomycin HCl (Vanco) 10 gm STK-MED ONCE .ROUTE Last administered on 08:46; Start 07/25/16 at 07:07; Stop 07/25/16 at 07:08; Status DC Papaverine HCl 60 mg STK-MED ONCE .ROUTE Last administered on 07/25/16 08:46; Start 07/25/16 at 07:07; Stop 07/25/16 at 07:08; Status DC Aspirin (Aspirin) 300 mg STK-MED ONCE .ROUTE Last administered on 07/25/16 17: 25; Start 07/25/16 at 07:08; Stop 07/25/16 at 07:09; Status DC Sodium Chloride (Sodium Chloride) 50 ml STK-MED ONCE IJ Last administered on 08:46; Start 07/25/16 at 07:08; Stop 07/25/16 at 07:09; Status DC Midazolam HCl (Versed) 2 mg STK-MED ONCE .ROUTE ; Start 07/25/16 at 07:15; Stop 07/25/16 at 07:16; Status DC Ephedrine Sulfate 50 mg 50 mg STK-MED ONCE IV ; Start 07/25/16 at 07:16; Stop at 07:17; Status DC Nitroglycerin/ Dextrose (Nitroglycerin Drip) 250 ml @ As Directed STK-MED ONCE IV ; Start 07/25/16 at 07:16; Stop 07/25/16 at 07:17; Status DC Midazolam HCl (Versed) 2 mg STK-MED ONCE .ROUTE ; Start 07/25/16 at 07:18; Stop 07/25/16 at 07:19; Status DC Fentanyl Citrate (Fentanyl 2ml Vial) 100 mcg STK-MED ONCE .ROUTE ; Start at 07:19; Stop 07/25/16 at 07:20; Status DC Sufentanil Citrate (Sufenta) 100 mcg STK-MED ONCE .ROUTE ; Start 07/25/16 at 07: 19; Stop 07/25/16 at 07:20; Status DC Midazolam HCl (Versed) 2 mg 1X ONCE IV ; Start 07/25/16 at 08:00; Stop at 08:01; Status DC Dexamethasone Sodium Phosphate (Decadron) 20 mg STK-MED ONCE .ROUTE ; Start 01/31 at 07:58; Stop 07/25/16 at 07:59; Status DC Rocuronium [place] (Zemuron) 100 mg STK-MED ONCE .ROUTE ; Start 07/25/16 at 08: 52; Stop 07/25/16 at 08:53; Status DC Sufentanil Citrate (Sufenta) 100 mcg STK-MED ONCE .ROUTE ; Start 07/25/16 at 08: 53; Stop 07/25/16 at 08:54; Status DC Protamine Sulfate 250 mg STK-MED ONCE IV ; Start 07/25/16 at 10:43; Stop at 10:44; Status DC Rocuronium [place] 100 mg 100 mg STK-MED ONCE .ROUTE ; Start 07/25/16 at 10:52; Stop 07/25/16 at 10:53; Status DC Albumin Human 0 ml @ As Directed STK-MED ONCE IV ; Start 07/25/16 at 10:53; Stop 07/25/16 at 10:54; Status DC Amiodarone HCl/ Dextrose (Cordarone) 518 ml @ 34.53 mls/ hr 1X ONCE IV Last administered on 07/25/16t 18:52; Start 07/25/16 at 11:30; Stop 07/26/16 at 02:30 ; Status DC Sodium Bicarbonate 50 meq STK-MED ONCE .ROUTE ; Start 07/25/16 at 11:35; Stop at 11:36; Status DC Protamine Sulfate 50 mg STK-MED ONCE IV ; Start 07/25/16 at 12:31; Stop at 12:32; Status DC Amiodarone HCl (Cordarone) 150 mg STK-MED ONCE .ROUTE ; Start 07/25/16 at 12:37 ; Stop 07/25/16 at 12:38; Status DC Isoflurane (Isoflurane) 90 ml STK-MED ONCE IH ; Start 07/25/16 at 12:42; Stop at 12:43; Status DC Lidocaine HCl (Lidocaine HCl 2% Abboject) 100 mg STK-MED ONCE .ROUTE ; Start 01/31 at 13:07; Stop 07/25/16 at 13:08; Status DC Mannitol (Mannitol) 12.5 g STK-MED ONCE .ROUTE ; Start 07/25/16 at 13:07; Stop 07/25/16 at 13:08; Status DC Calcium Chloride 1,000 mg STK-MED ONCE IV ; Start 07/25/16 at 13:07; Stop at 13:08; Status DC Sodium Bicarbonate 50 meq 50 meq STK-MED ONCE .ROUTE ; Start 07/25/16 at 13:07; Stop 07/25/16 at 13:08; Status DC Albumin Human (Albuminar) 100 ml @ As Directed STK-MED ONCE IV ; Start at 13:07; Stop 07/25/16 at 13:08; Status DC Magnesium Sulfate 5 gm STK-MED ONCE .ROUTE ; Start 07/25/16 at 13:08; Stop 07/25 at 13:09; Status DC Heparin Sodium (Porcine) 14348 unit 30,000 unit STK-MED ONCE .ROUTE ; Start 01/31 at 13:08; Stop 07/25/16 at 13:09; Status DC Clevidipine (Cleviprex) 100 ml @ 0 mls/hr CONT PRN IV PER PROTOCOL; Start 07/25 at 13:45; Stop 07/26/16 at 11:29; Status DC Heparin Sodium (Porcine) 75348 unit 30,000 unit STK-MED ONCE .ROUTE ; Start 01/31 at 13:39; Stop 07/25/16 at 13:40; Status DC Epinephrine HCl/ Sodium Chloride (Adrenalin/Iv Sodium Chloride 0.9% 250ml) 254 ml @ 3.81 mls/hr CONT PRN IV SEE I/O RECORD; Start 07/25/16 at 13:45; Stop at 13:38; Status DC Epinephrine HCl (Epinephrine Syringe) 1 mg STK-MED ONCE .ROUTE ; Start 07/25/16 at 13:52; Stop 07/25/16 at 13:53; Status DC Rocuronium [place] (Zemuron) 100 mg STK-MED ONCE .ROUTE ; Start 07/25/16 at 13: 57; Stop 07/25/16 at 13:58; Status DC Sodium Bicarbonate 50 meq 50 meq STK-MED ONCE .ROUTE ; Start 07/25/16 at 14:04; Stop 07/25/16 at 14:05; Status DC Procainamide HCl/ Dextrose (Pronestyl) 520 ml @ 15.6 mls/hr CONT PRN IV SEE I/ O RECORD; Start 07/25/16 at 14:30; Stop 07/28/16 at 15:22; Status DC Sodium Bicarbonate 50 meq STK-MED ONCE .ROUTE ; Start 07/25/16 at 14:31; Stop at 14:32; Status DC Sodium Bicarbonate 50 meq STK-MED ONCE .ROUTE ; Start 07/25/16 at 14:31; Stop at 14:32; Status DC Protamine Sulfate 50 mg STK-MED ONCE IV ; Start 07/25/16 at 15:13; Stop at 15:14; Status DC Protamine Sulfate 50 mg STK-MED ONCE IV ; Start 07/25/16 at 15:13; Stop at 15:14; Status DC Isoflurane 90 ml 90 ml STK-MED ONCE IH ; Start 07/25/16 at 15:13; Stop 07/25/16 at 15:14; Status DC Dobutamine HCl/ Dextrose 250 ml @ As Directed STK-MED ONCE IV ; Start 07/25/16 at 15:17; Stop 07/25/16 at 15:18; Status DC Iohexol 100 ml 100 ml STK-MED ONCE .ROUTE Last administered on 07/25/16t 15:39 ; Start 07/25/16 at 15:28; Stop 07/25/16 at 15:29; Status DC Norepinephrine Bitartrate 8 mg/ Sodium Chloride 258 ml @ 1.93 mls/hr 1X ONCE IV Last administered on 07/25/16t 18:53; Start 07/25/16 at 16:00; Stop at 08:04; Status DC Albumin Human (Plasmanate) 1,000 ml @ As Directed STK-MED ONCE IV ; Start 07/25 at 16:11; Stop 07/25/16 at 16:12; Status DC Heparin Sodium (Porcine) (Heparin Sodium) 10,000 unit STK-MED ONCE .ROUTE ; Start 07/25/16 at 16:19; Stop 07/25/16 at 16:20; Status DC Lidocaine HCl (Lidocaine HCl 2% Abboject) 100 mg STK-MED ONCE .ROUTE ; Start 01/31 at 16:19; Stop 07/25/16 at 16:20; Status DC Mannitol (Mannitol) 12.5 g STK-MED ONCE .ROUTE ; Start 07/25/16 at 16:19; Stop 07/25/16 at 16:20; Status DC Calcium Chloride 1,000 mg STK-MED ONCE IV ; Start 07/25/16 at 16:19; Stop at 16:20; Status DC Sodium Bicarbonate 50 meq STK-MED ONCE .ROUTE ; Start 07/25/16 at 16:19; Stop at 16:20; Status DC Magnesium Sulfate 5 gm STK-MED ONCE .ROUTE ; Start 07/25/16 at 16:19; Stop 07/25 at 16:20; Status DC Heparin Sodium (Porcine) (Heparin Sodium) 10,000 unit STK-MED ONCE .ROUTE ; Start 07/25/16 at 16:20; Stop 07/25/16 at 16:21; Status DC Lidocaine HCl (Lidocaine HCl 2% Abboject) 100 mg STK-MED ONCE .ROUTE ; Start 01/31 at 16:20; Stop 07/25/16 at 16:21; Status DC Aminocaproic Acid (Amicar) 5,000 mg STK-MED ONCE IV ; Start 07/25/16 at 16:20; Stop 07/25/16 at 16:21; Status DC Mannitol (Mannitol) 12.5 g STK-MED ONCE .ROUTE ; Start 07/25/16 at 16:20; Stop 07/25/16 at 16:21; Status DC Sodium Bicarbonate 50 meq 50 meq STK-MED ONCE .ROUTE ; Start 07/25/16 at 16:20; Stop 07/25/16 at 16:21; Status DC Albumin Human (Albuminar) 100 ml @ As Directed STK-MED ONCE IV ; Start at 16:20; Stop 07/25/16 at 16:21; Status DC Rocuronium Albion (Zemuron) 50 mg STK-MED ONCE .ROUTE ; Start 07/25/16 at 16:33 ; Stop 07/25/16 at 16:34; Status DC Rocuronium Albion (Zemuron) 50 mg STK-MED ONCE .ROUTE ; Start 07/25/16 at 16:33 ; Stop 07/25/16 at 16:34; Status DC Protamine Sulfate 50 mg STK-MED ONCE IV ; Start 07/25/16 at 16:34; Stop at 16:35; Status DC Sodium Bicarbonate 50 meq STK-MED ONCE .ROUTE ; Start 07/25/16 at 16:36; Stop at 16:37; Status DC Calcium Chloride 1,000 mg STK-MED ONCE IV ; Start 07/25/16 at 16:41; Stop at 16:42; Status DC Epinephrine HCl (Epinephrine Syringe) 1 mg STK-MED ONCE .ROUTE ; Start 07/25/16 at 16:41; Stop 07/25/16 at 16:42; Status DC Sodium Bicarbonate 50 meq STK-MED ONCE .ROUTE ; Start 07/25/16 at 16:52; Stop at 16:53; Status DC Sodium Bicarbonate 50 meq STK-MED ONCE .ROUTE ; Start 07/25/16 at 16:52; Stop at 16:53; Status DC Sodium Bicarbonate 50 meq STK-MED ONCE .ROUTE ; Start 07/25/16 at 16:52; Stop at 16:53; Status DC Vasopressin (Vasostrict) 20 unit STK-MED ONCE .ROUTE ; Start 07/25/16 at 16:54; Stop 07/25/16 at 16:55; Status DC Famotidine (Pepcid) 20 mg STK-MED ONCE .ROUTE ; Start 07/25/16 at 16:56; Stop at 16:57; Status DC Dexamethasone Sodium Phosphate (Decadron) 20 mg STK-MED ONCE .ROUTE ; Start 01/31 at 16:56; Stop 07/25/16 at 16:57; Status DC Diphenhydramine HCl 50 mg 50 mg STK-MED ONCE .ROUTE ; Start 07/25/16 at 16:56; Stop 07/25/16 at 16:57; Status DC Vasopressin/ Dextrose (Vasostrict) 102 ml @ 6 mls/hr CONT PRN IV SEE I/O RECORD Last administered on 08/03/16 18:28; Start 07/25/16 at 17:15 Sodium Bicarbonate 50 meq STK-MED ONCE .ROUTE ; Start 07/25/16 at 17:24; Stop at 17:25; Status DC Sodium Bicarbonate 50 meq 50 meq STK-MED ONCE .ROUTE ; Start 07/25/16 at 17:24; Stop 07/25/16 at 17:25; Status DC Cefazolin Sodium/ Dextrose (Ancef 2gm Premix) 50 ml @ As Directed STK-MED ONCE IV ; Start 07/25/16 at 17:32; Stop 07/25/16 at 17:33; Status DC Sodium Chloride 3 ml 3 ml PRN Q12HR PRN IV AFTER MEDS AND BLOOD DRAWS; Start at 17:30; Stop 07/29/16 at 13:38; Status DC Lactated Ringer's 1,000 ml @ 15 mls/hr Q24H IV Last administered on 07/29/16 16:45; Start 07/25/16 at 17:30; Stop 07/31/16 at 15:33; Status DC Insulin Human Regular/Sodium Chloride (Novolin R Vial/ Iv Normal Saline 150ml) 151.5 ml @ 0 mls/hr CONT PRN PRN IV SEE I/O RECORD Last administered on 03:03; Start 07/25/16 at 17:30; Stop 07/29/16 at 13:51; Status DC Dextrose 25 gm 25 gm PRN Q15MIN PRN IV LOW BLOOD SUGAR; Start 07/25/16 at 17:30 ; Stop 07/29/16 at 13:51; Status DC Dopamine HCl/ Dextrose 250 ml @ 0 mls/hr CONT PRN PRN IV SEE I/O RECORD; Start 07/25/16 at 17:30; Stop 07/26/16 at 11:41; Status DC Amiodarone HCl/ Dextrose (Cordarone) 518 ml @ 33.33 mls/ hr CONT PRN PRN IV SEE COMMENTS; Start 07/25/16 at 17:30; Status UNV Info 1 ea CONT PRN PRN MC SEE COMMENTS; Start 07/25/16 at 17:30; Stop 08/03/16 at 12:57; Status DC Info 1 ea 1 ea CONT PRN PRN MC SEE COMMENTS; Start 07/25/16 at 17:30; Stop at 13:38; Status DC Magnesium Sulfate/ Dextrose (Magnesium Sulfate PREMIX 1GM) 100 ml @ 100 mls/hr PRN DAILY PRN IV FOR MAG < 2.2 Last administered on 07/27/16 10:59; Start 01/31 at 17:30; Stop 08/08/16 at 13:38; Status DC Famotidine (Pepcid) 20 mg BID IVP Last administered on 08/03/16 09:15; Start 07/25/16 at 21:00; Stop 08/03/16 at 15:28; Status DC Metoclopramide HCl (Reglan) 10 mg PRN Q6HRS PRN IV NAUSEA/VOMITING Last administered on 08/07/16 07:26; Start 07/25/16 at 17:30; Stop 08/08/16 at 13:39 ; Status DC Morphine Sulfate 2 mg PRN Q1HR PRN IV PAIN Last administered on 07/28/16 14:21 ; Start 07/25/16 at 17:30; Stop 07/29/16 at 13:38; Status DC Acetaminophen (Tylenol) 650 mg PRN Q4HRS PRN PO MILD PAIN / TEMP; Start at 17:30; Stop 07/29/16 at 13:38; Status DC Acetaminophen (Acetaminophen Supp) 650 mg PRN Q4HRS PRN [place] MILD PAIN / TEMP Last administered on 08/03/16 01:04; Start 07/25/16 at 17:30 Meperidine HCl 12.5 mg 12.5 mg PRN Q15MIN PRN IV SHIVERING; Start 07/25/16 at 17:30; Stop 07/29/16 at 13:38; Status DC Propofol (Diprivan) 100 ml @ 0 mls/hr CONT PRN PRN IV POSTOP SEDATION UNTIL EXTUBATE; Start 07/25/16 at 17:30; Stop 07/28/16 at 15:22; Status DC Aspirin (Ecotrin) 325 mg DAILYWBKFT PO Last administered on 07/29/16 09:54; Start 07/26/16 at 08:00; Stop 07/29/16 at 09:59; Status DC Aspirin (Aspirin) 300 mg PRN DAILY PRN [place] IF UNABLE TO TAKE PO; Start 07/25/16 at 17:30; Stop 07/26/16 at 12:00; Status DC Acetaminophen/ Hydrocodone Bitart (Lortab 5/325) 1 tab PRN Q4HRS PRN PO MILD PAIN; Start 07/25/16 at 17:30; Stop 08/03/16 at 12:24; Status DC Acetaminophen/ Hydrocodone Bitart 2 tab 2 tab PRN Q4HRS PRN PO MODERATE PAIN, SEVERE PAIN; Start 07/25/16 at 17:30; Stop 08/03/16 at 12:24; Status DC Cefazolin Sodium/ Dextrose 50 ml @ 100 mls/hr Q8H IV ; Start 07/25/16 at 18:00 ; Stop 07/25/16 at 21:42; Status DC Albumin Human 250 ml @ 62.5 mls/hr 1X ONCE IV Last administered on 07/27/16 17:52; Start 07/25/16 at 17:30; Stop 07/25/16 at 21:29; Status DC Midazolam HCl 100 ml @ As Directed STK-MED ONCE IV ; Start 07/25/16 at 18:06; Stop 07/25/16 at 18:07; Status DC Midazolam HCl 100 ml @ 0 mls/hr CONT PRN IV SEE I/O RECORD Last administered on 07/25/16 18:56; Start 07/25/16 at 18:15; Stop 07/26/16 at 08:59; Status DC Vancomycin HCl 1 gm/Sodium Chloride 250 ml @ 250 mls/hr 1X ONCE IV Last administered on 07/25/16 20:56; Start 07/25/16 at 18:15; Stop 07/25/16 at 19:14 ; Status DC Piperacillin Sod/ Tazobactam Sod/ Sodium Chloride (Zosyn/Iv Sodium Chloride 0.9 % 50ml) 50 ml @ 100 mls/hr Q6HRS IV Last administered on 07/31/16 05:32; Start 07/25/16 at 18:15; Stop 07/31/16 at 10:25; Status DC Midazolam HCl (Versed) 2 mg PRN Q20MIN PRN IV SEDATION; Start 07/25/16 at 18:15 ; Stop 07/25/16 at 18:39; Status DC Midazolam HCl 5 mg 5 mg PRN Q30MIN PRN IV SEDATION; Start 07/25/16 at 18:15; Stop 07/25/16 at 18:39; Status DC Vecuronium Albion 100 mg/ Dextrose 100 ml @ 0 mls/hr 1X ONCE IV Last administered on 07/25/16 19:43; Start 07/25/16 at 18:15; Stop 07/25/16 at 18:17 ; Status DC Midazolam HCl 100 ml @ 0 mls/hr CONT PRN IV SEE I/O RECORD Last administered on 07/28/16 19:40; Start 07/25/16 at 18:45 Dobutamine HCl/ Dextrose 250 ml @ 0 mls/hr CONT PRN IV SEE I/O RECORD Last administered on 07/29/16 03:10; Start 07/25/16 at 18:45; Stop 07/29/16 at 13:38 ; Status DC Potassium Chloride 50 ml @ 50 mls/hr Q1H IV Last administered on 07/25/16 22: 58; Start 07/25/16 at 21:00; Stop 07/25/16 at 23:59; Status DC Cefazolin Sodium/ Dextrose 50 ml @ 100 mls/hr Q8H IV Last administered on 07/27 05:34; Start 07/25/16 at 22:00; Stop 07/27/16 at 06:29; Status DC Heparin Sodium (Porcine) 10059 unit/Dextrose 512.5 ml @ 0 mls/hr Q0M ONCE IV Last administered on 07/25/16 22:21; Start 07/25/16 at 22:15; Stop 07/25/16 at 22:16; Status DC Vecuronium Albion/Dextrose (Norcuron) 100 ml @ 0 mls/hr CONT PRN IV SEE I/O RECORD Last administered on 07/26/16 01:07; Start 07/26/16 at 00:45; Stop 07/29 at 13:38; Status DC Dextrose 25 gm 25 gm 1X ONCE IV Last administered on 07/26/16 01:08; Start at 01:00; Stop 07/26/16 at 01:18; Status DC Amiodarone HCl/ Dextrose (Cordarone) 259 ml @ 17.26 mls/ hr CONT PRN IV SEE I/ O RECORD Last administered on 07/30/16 13:02; Start 07/26/16 at 06:45; Stop at 15:33; Status DC Cefazolin Sodium/ Dextrose 2 gm 2 gm STK-MED ONCE IV ; Start 07/25/16 at 11:00; Stop 07/26/16 at 08:53; Status DC Lactated Ringer's 500 ml @ 5,000 mls/hr PRN Q10MIN PRN IV CVP <14; Start 07/26 at 10:00; Stop 07/29/16 at 13:38; Status DC Fentanyl Citrate (Fentanyl 600 Mcg/30 ml COMMIS CHEF) 30 ml @ 0 mls/hr CONT PRN IV PROTOCOL Last administered on 07/31/16 09:12; Start 07/26/16 at 10:00; Stop at 13:31; Status DC Fentanyl Citrate (Fentanyl 2ml Vial) 25 mcg PRN Q1HR PRN IV COMM; Start at 10:00; Stop 07/29/16 at 13:38; Status DC Fentanyl Citrate (Fentanyl 2ml Vial) 50 mcg PRN Q1HR PRN IV COMM; Start at 10:00; Stop 07/29/16 at 13:38; Status DC Chlorhexidine Gluconate (Peridex) 15 ml BID MM Last administered on 08/08/16 10:54; Start 07/26/16 at 10:30 Sulfur Hexafluoride Microspheres (Lumason) 25 mg STK-MED ONCE IVP ; Start at 11:29; Stop 07/26/16 at 11:30; Status DC Aspirin 300 mg 300 mg DAILY [place] Last administered on 07/28/16 07:55; Start 03/03 at 12:00; Stop 07/29/16 at 19:10; Status DC Potassium Chloride (KCl Premix 20meq) 50 ml @ 50 mls/hr 1X ONCE IV Last administered on 07/26/16 12:55; Start 07/26/16 at 12:00; Stop 07/26/16 at 12:59 ; Status DC Sulfur Hexafluoride Microspheres (Lumason) 25 mg 1X ONCE IVP Last administered on 07/26/16 11:45; Start 07/26/16 at 11:45; Stop 07/26/16 at 11:50 ; Status DC Multi-Ingred Cream/Lotion/Oil/ Oint (Artificial Tears Eye Oint) 1 adri BID OU Last administered on 08/08/16 10:54; Start 07/26/16 at 21:00 Ondansetron HCl (Zofran) 4 mg PRN Q6HRS PRN IV NAUSEA/VOMITING; Start 07/27/16 at 07:00; Stop 07/28/16 at 06:59; Status DC Fentanyl Citrate (Fentanyl 2ml Vial) 25 mcg PRN Q5MIN PRN IV MILD PAIN; Start 07/27/16 at 07:00; Stop 07/28/16 at 06:59; Status DC Fentanyl Citrate (Fentanyl 2ml Vial) 50 mcg PRN Q5MIN PRN IV MODERATE PAIN; Start 07/27/16 at 07:00; Stop 07/28/16 at 06:59; Status DC Morphine Sulfate 1 mg 1 mg PRN Q10MIN PRN IV SEVERE PAIN; Start 07/27/16 at 07: 00; Stop 07/28/16 at 06:59; Status DC Lactated Ringer's (Iv Lactated Ringers) 1,000 ml @ 30 mls/hr Q24H IV Last administered on 07/26/16 17:25; Start 07/27/16 at 07:00; Stop 07/27/16 at 18:59 ; Status DC Lidocaine HCl 2 ml PRN 1X PRN ID PRIOR TO IV START; Start 07/27/16 at 07:00; Stop 07/28/16 at 06:59; Status DC Hydromorphone HCl (Dilaudid) 0.5 mg PRN Q10MIN PRN IV SEV PAIN, Second choice; Start 07/27/16 at 07:00; Stop 07/28/16 at 06:59; Status DC Prochlorperazine Edisylate 5 mg 5 mg PACU PRN PRN IV NAUSEA, MRX1; Start at 07:00; Stop 07/28/16 at 06:59; Status DC Heparin Sodium (Porcine) 30895 unit/Dextrose 512.5 ml @ 0 mls/hr Q0M ONCE IV Last administered on 07/26/16 19:40; Start 07/26/16 at 18:30; Stop 07/26/16 at 18:31; Status DC Amiodarone HCl 150 mg/Dextrose 103 ml @ 618 mls/hr 1X ONCE IV Last administered on 07/26/16 19:25; Start 07/26/16 at 19:15; Stop 07/26/16 at 19:24 ; Status DC Norepinephrine Bitartrate 8 mg/ Sodium Chloride 258 ml @ 1.93 mls/hr CONT PRN IV SEE I/O RECORD Last administered on 08/03/16 11:12; Start 07/26/16 at 19:15 Amiodarone HCl 900 mg/Dextrose 518 ml @ 0 mls/hr CONT PRN IV PER PROTOCOL; Start 07/26/16 at 19:15; Stop 07/27/16 at 12:11; Status DC Milrinone Lactate/ Dextrose 100 ml @ 0 mls/hr CONT PRN IV SEE I/O RECORD Last administered on 07/26/16 20:03; Start 07/26/16 at 19:45; Stop 07/29/16 at 13:51 ; Status DC Calcium Chloride/ Sodium Chloride (Iv Sodium Chloride 0.9% 100ml) 120 ml @ 240 mls/hr 1X ONCE IV Last administered on 07/26/16 21:04; Start 07/26/16 at 21: 30; Stop 07/26/16 at 21:59; Status DC Digoxin 500 mcg 500 mcg 1X ONCE IV Last administered on 07/26/16 21:55; Start 07/26/16 at 21:45; Stop 07/26/16 at 21:46; Status DC Cefazolin Sodium/ Sodium Chloride (Ancef/Iv Sodium Chloride 0.9% 500ml Bag) 500 ml @ 500 mls/hr 1X PERIOP ONCE IRR Last administered on 07/27/16 14:37; Start 07/27/16 at 10:00; Stop 07/27/16 at 10:59; Status DC Vancomycin HCl (Vanco) 10 gm 1X ONCE CEMENT Last administered on 07/27/16 14: 37; Start 07/27/16 at 12:30; Stop 07/27/16 at 12:31; Status DC Rocuronium Albion (Zemuron) 100 mg STK-MED ONCE .ROUTE ; Start 07/27/16 at 12: 32; Stop 07/27/16 at 12:33; Status DC Lorazepam (Ativan) 2 mg STK-MED ONCE .ROUTE ; Start 07/27/16 at 14:13; Stop 04/02 at 14:14; Status DC Phenylephrine HCl 1 mg 1 mg STK-MED ONCE IV ; Start 07/27/16 at 14:18; Stop 04/02 at 14:19; Status DC Albumin Human (Plasmanate) 250 ml @ 62.5 mls/hr 1X ONCE IV Last administered on 07/27/16 17:52; Start 07/27/16 at 17:15; Stop 07/27/16 at 21:14; Status DC Sodium Bicarbonate 50 meq STK-MED ONCE .ROUTE ; Start 07/27/16 at 17:39; Stop at 17:40; Status DC Sodium Bicarbonate 50 meq 1X ONCE IV Last administered on 07/27/16 17:51; Start 07/27/16 at 18:00; Stop 07/27/16 at 18:01; Status DC Sodium Bicarbonate 50 meq 1X ONCE IV Last administered on 07/27/16 17:52; Start 07/27/16 at 18:00; Stop 07/27/16 at 18:01; Status DC Fentanyl Citrate (Fentanyl 2ml Vial) 25 mcg PRN Q5MIN PRN IV MILD PAIN; Start 07/28/16 at 07:00; Stop 07/29/16 at 06:59; Status DC Fentanyl Citrate (Fentanyl 2ml Vial) 50 mcg PRN Q5MIN PRN IV MODERATE PAIN; Start 07/28/16 at 07:00; Stop 07/29/16 at 06:59; Status DC Morphine Sulfate 1 mg 1 mg PRN Q10MIN PRN IV SEVERE PAIN; Start 07/28/16 at 07: 00; Stop 07/29/16 at 06:59; Status DC Lactated Ringer's (Iv Lactated Ringers) 1,000 ml @ 30 mls/hr Q24H IV Last administered on 07/28/16 06:49; Start 07/28/16 at 06:49; Stop 07/28/16 at 18:48 ; Status DC Lidocaine HCl 2 ml PRN 1X PRN ID PRIOR TO IV START; Start 07/28/16 at 07:00; Stop 07/29/16 at 06:59; Status DC Hydromorphone HCl (Dilaudid) 0.5 mg PRN Q10MIN PRN IV SEV PAIN, Second choice; Start 07/28/16 at 07:00; Stop 07/29/16 at 06:59; Status DC Rocuronium Albion 50 mg 50 mg STK-MED ONCE .ROUTE ; Start 07/28/16 at 07:27; Stop 07/28/16 at 07:28; Status DC Cefazolin Sodium/ Sodium Chloride (Ancef/Iv Sodium Chloride 0.9% 500ml Bag) 500 ml @ 500 mls/hr 1X PERIOP ONCE IRR Last administered on 07/28/16 09:25; Start 07/28/16 at 08:00; Stop 07/28/16 at 08:59; Status DC Cellulose 1 each STK-MED ONCE .ROUTE ; Start 07/28/16 at 07:42; Stop 07/28/16 at 07:43; Status DC Bupivacaine HCl/ Epinephrine Bitart 50 ml 50 ml STK-MED ONCE .ROUTE ; Start at 07:42; Stop 07/28/16 at 07:43; Status DC Heparin Sodium (Porcine)/Sodium Chloride (Heparin Sodium/ Iv Sodium Chloride 0.9 % 500ml Bag) 505 ml @ 505 mls/hr 1X PERIOP ONCE IRR Last administered on 07/28 10:19; Start 07/28/16 at 08:15; Stop 07/28/16 at 09:14; Status DC Lorazepam 2 mg 2 mg STK-MED ONCE .ROUTE ; Start 07/28/16 at 08:29; Stop at 08:30; Status DC Magnesium Sulfate/ Dextrose (Magnesium Sulfate PREMIX 1GM) 100 ml @ 100 mls/hr 1X ONCE IV Last administered on 07/28/16 13:09; Start 07/28/16 at 09:00; Stop 07/28/16 at 09:59; Status DC Vasopressin (Vasostrict) 20 unit STK-MED ONCE .ROUTE ; Start 07/28/16 at 09:03; Stop 07/28/16 at 09:04; Status DC Epinephrine HCl (Epinephrine Syringe) 1 mg STK-MED ONCE .ROUTE ; Start 07/28/16 at 09:09; Stop 07/28/16 at 09:10; Status DC Calcium Chloride 1,000 mg STK-MED ONCE IV ; Start 07/28/16 at 09:09; Stop at 09:10; Status DC Phenylephrine HCl 1 mg STK-MED ONCE IV ; Start 07/28/16 at 09:54; Stop 07/28/16 at 09:55; Status DC Sevoflurane 60 ml 60 ml STK-MED ONCE IH ; Start 07/28/16 at 09:54; Stop at 09:55; Status DC Epinephrine HCl/ Sodium Chloride (Adrenalin/Iv Sodium Chloride 0.9% 250ml) 254 ml @ 3.81 mls/hr 1X ONCE IV ; Start 07/28/16 at 10:00; Stop 07/29/16 at 19:10 ; Status DC Heparin Sodium (Porcine) 64535 unit 10,000 unit STK-MED ONCE .ROUTE ; Start at 09:57; Stop 07/28/16 at 09:58; Status DC Albumin Human (Plasmanate) 500 ml @ As Directed STK-MED ONCE IV ; Start at 09:57; Stop 07/28/16 at 09:58; Status DC Iohexol 100 ml 100 ml STK-MED ONCE .ROUTE ; Start 07/28/16 at 10:39; Stop at 10:40; Status DC Heparin Sodium/ Sodium Chloride 500 ml @ As Directed STK-MED ONCE .ROUTE ; Start 07/28/16 at 10:39; Stop 07/28/16 at 10:40; Status DC Iohexol 100 ml 100 ml STK-MED ONCE .ROUTE ; Start 07/28/16 at 10:43; Stop at 10:44; Status DC Heparin Sodium/ Sodium Chloride 500 ml @ As Directed STK-MED ONCE .ROUTE ; Start 07/28/16 at 11:21; Stop 07/28/16 at 11:22; Status DC Albuterol Sulfate (Ventolin Neb Soln) 2.5 mg RTQID NEB Last administered on 08:46; Start 07/28/16 at 12:00; Stop 07/30/16 at 17:05; Status DC Furosemide (Lasix) 40 mg 1X ONCE IVP Last administered on 07/28/16 13:16; Start 07/28/16 at 13:15; Stop 07/28/16 at 13:16; Status DC Furosemide (Lasix) 40 mg 1X ONCE IVP Last administered on 07/28/16 13:19; Start 07/28/16 at 14:00; Stop 07/28/16 at 14:01; Status DC Heparin Sodium/ Sodium Chloride 1000 unit 1,000 unit CONT PRN IV ART LINE FLUSH Last administered on 08/02/16 06:47; Start 07/28/16 at 14:45; Stop at 13:39; Status DC Albumin Human 250 ml @ 62.5 mls/hr PRN Q1HR PRN IV SEE COMMENTS Last administered on 08/02/16 16:12; Start 07/28/16 at 15:15 Furosemide 100 mg/ Sodium Chloride 100 ml @ 5 mls/hr CONT PRN IV SEE I/O RECORD Last administered on 07/30/16 09:50; Start 07/28/16 at 15:30; Stop 07/31 at 13:31; Status DC Potassium Chloride 50 ml @ 50 mls/hr Q1H IV Last administered on 07/28/16 19: 39; Start 07/28/16 at 18:30; Stop 07/28/16 at 20:29; Status DC Potassium Chloride (KCl Premix 20meq) 50 ml @ 50 mls/hr Q1H IV Last administered on 07/29/16 09:36; Start 07/29/16 at 07:00; Stop 07/29/16 at 08:59 ; Status DC Lorazepam (Ativan) 2 mg STK-MED ONCE .ROUTE ; Start 07/28/16 at 08:30; Stop at 08:16; Status DC Aspirin (Arti Aspirin) 325 mg DAILYWBKFT PO Last administered on 08/08/16 10: 55; Start 07/30/16 at 08:00 Docusate Sodium 100 mg 100 mg DAILY PO Last administered on 07/31/16 07:59; Start 07/30/16 at 09:00; Stop 07/31/16 at 11:00; Status DC Dobutamine HCl/ Dextrose 250 ml @ 12.1 mls/hr CONT PRN IV PER PROTOCOL Last administered on 08/02/16 18:03; Start 07/29/16 at 13:30; Stop 08/08/16 at 13:39 ; Status DC Potassium Chloride 50 ml @ 50 mls/hr Q1H IV Last administered on 07/29/16 22: 39; Start 07/29/16 at 20:00; Stop 07/29/16 at 22:59; Status DC Potassium Chloride (KCl Premix 20meq) 50 ml @ 50 mls/hr Q1H IV Last administered on 07/30/16 09:19; Start 07/30/16 at 07:00; Stop 07/30/16 at 08:59 ; Status DC Ipratropium Albion (Atrovent) 0.5 mg RTQID NEB Last administered on 08/08/16 09:22; Start 07/30/16 at 12:30 Digoxin 500 mcg 500 mcg 1X ONCE IV Last administered on 07/30/16 13:01; Start 07/30/16 at 12:15; Stop 07/30/16 at 12:19; Status DC Dexmedetomidine HCl/Sodium Chloride (Precedex/Iv Sodium Chloride 0.9% 50ml) 50 ml @ 0 mls/hr CONT PRN IV PER PROTOCOL Last administered on 08/04/16 05:20; Start 07/30/16 at 13:30 Atropine Sulfate 0.5 mg PRN Q5MIN PRN IV SEE COMMENTS; Start 07/30/16 at 13:30 Amiodarone HCl (Cordarone) 400 mg ONCE ONCE PO Last administered on 07/30/16 15:01; Start 07/30/16 at 13:30; Stop 07/30/16 at 13:46; Status DC Amiodarone HCl (Cordarone) 400 mg BID PO Last administered on 08/08/16 10:54; Start 07/30/16 at 21:00 Digoxin 125 mcg 125 mcg DAILY IV Last administered on 08/02/16 08:56; Start at 09:00; Stop 08/03/16 at 14:27; Status DC Albumin Human (Albuminar) 50 ml @ 50 mls/hr 1X ONCE IV Last administered on 16:26; Start 07/30/16 at 16:30; Stop 07/30/16 at 17:29; Status DC Ibuprofen (Motrin) 200 mg PRN Q6HRS PRN PO fever; Start 07/30/16 at 19:45; Stop 08/01/16 at 12:22; Status DC Metoprolol Tartrate (Lopressor) 2.5 mg 1X ONCE IVP Last administered on 20:23; Start 07/30/16 at 20:30; Stop 07/30/16 at 20:31; Status DC Metoprolol Tartrate 5 mg 5 mg PRN Q2HR PRN IVP HYPERTENSION Last administered on 08/04/16 22:09; Start 07/30/16 at 22:30 Potassium Chloride (KCl Premix 20meq) 50 ml @ 50 mls/hr Q1H IV Last administered on 07/31/16 09:04; Start 07/31/16 at 07:00; Stop 07/31/16 at 08:59 ; Status DC Metoprolol Tartrate (Lopressor) 12.5 mg BID NG Last administered on 08/08/16 10:55; Start 07/31/16 at 10:00 Docusate Sodium (Colace Solution) 100 mg PRN DAILY PRN PO constipation Last administered on 08/01/16 08:40; Start 07/31/16 at 11:00; Stop 08/08/16 at 13:39 ; Status DC Hydralazine HCl (Apresoline) 10 mg PRN Q2HRS PRN IVP ELEVATED BP, SEE COMMENTS Last administered on 08/01/16 16:35; Start 07/31/16 at 13:30 Fentanyl Citrate (Fentanyl 2ml Vial) 50 mcg PRN Q2HR PRN IV PAIN Last administered on 08/02/16 12:57; Start 07/31/16 at 13:45 Furosemide (Lasix) 40 mg TID IVP Last administered on 08/02/16 05:49; Start at 14:00; Stop 08/02/16 at 15:33; Status DC Alteplase, Recombinant (Cathflo) 2 mg 1X ONCE INT CAT Last administered on 23:34; Start 07/31/16 at 23:15; Stop 07/31/16 at 23:16; Status DC Haloperidol Lactate (Haldol) 5 mg PRN Q6HRS PRN IVP MODERATE AGITATION Last administered on 08/07/16 07:26; Start 08/01/16 at 21:00 Haloperidol Lactate 10 mg 10 mg PRN Q6HRS PRN IVP SEVERE AGITATION Last administered on 08/07/16 21:04; Start 08/01/16 at 23:45 Propofol 100 ml @ 0 mls/hr CONT PRN IV SEE I/O RECORD Last administered on 08/02 11:43; Start 08/02/16 at 02:45 Piperacillin Sod/ Tazobactam Sod/ Sodium Chloride (Zosyn/Iv Sodium Chloride 0.9 % 50ml) 50 ml @ 100 mls/hr Q6HRS IV Last administered on 08/02/16 13:17; Start 08/02/16 at 12:00; Stop 08/02/16 at 15:43; Status DC Vancomycin HCl 1 each 1 each PRN DAILY PRN MC SEE COMMENTS Last administered on 08/02/16 13:20; Start 08/02/16 at 11:45; Stop 08/03/16 at 15:24; Status DC Vancomycin HCl 2 gm/Sodium Chloride 500 ml @ 250 mls/hr 1X ONCE IV Last administered on 08/02/16 11:52; Start 08/02/16 at 12:00; Stop 08/02/16 at 13:59 ; Status DC Sodium Chloride (Iv Sodium Chloride 0.9% 500ml Bag) 500 ml @ 500 mls/hr 1X ONCE IV Last administered on 08/02/16 12:39; Start 08/02/16 at 12:45; Stop at 13:44; Status DC Vecuronium [place] (Norcuron Bolus) 10 mg 1X STAT IV Last administered on 08/02 13:34; Start 08/02/16 at 13:17; Stop 08/02/16 at 13:23; Status DC Vancomycin HCl 1 each 1 each 1X ONCE MC ; Start 08/03/16 at 23:30; Stop at 23:30; Status DC Vancomycin HCl 1.25 gm/Sodium Chloride 250 ml @ 167 mls/hr Q12H IV Last administered on 08/03/16 00:33; Start 08/03/16 at 00:00; Stop 08/03/16 at 11:07 ; Status DC Fentanyl Citrate (Fentanyl 600 Mcg/30 ml COMMIS CHEF) 30 ml @ 0 mls/hr CONT PRN PRN IV PROTOCOL Last administered on 08/06/16 02:18; Start 08/02/16 at 13:30; Stop at 13:39; Status DC Naloxone HCl 0.4 mg 0.4 mg PRN Q2MIN PRN IV SEE INSTRUCTIONS; Start 08/02/16 at 13:30 Micafungin Sodium 100 mg/Dextrose 100 ml @ 100 mls/hr Q24H IV Last administered on 08/07/16 16:33; Start 08/02/16 at 17:00 Lactated Ringer's 1,000 ml @ 1,000 mls/hr 1X ONCE IV Last administered on 15:45; Start 08/02/16 at 15:45; Stop 08/02/16 at 16:44; Status DC Piperacillin Sod/ Tazobactam Sod 4.5 gm/Sodium Chloride 100 ml @ 200 mls/hr Q6HRS IV Last administered on 08/03/16 12:00; Start 08/02/16 at 18:00; Stop at 14:02; Status DC Albumin Human (Plasmanate) 500 ml @ 125 mls/hr 1X ONCE IV Last administered on 08/02/16 20:37; Start 08/02/16 at 20:30; Stop 08/03/16 at 00:29; Status DC Furosemide (Lasix) 40 mg 1X ONCE IVP Last administered on 08/03/16 00:16; Start 08/02/16 at 20:30; Stop 08/02/16 at 20:31; Status DC Acetaminophen (Tylenol) 650 mg 1X ONCE NG Last administered on 08/03/16 02:03 ; Start 08/03/16 at 02:15; Stop 08/03/16 at 02:16; Status DC Ketorolac Tromethamine 15 mg 15 mg 1X ONCE IV Last administered on 08/03/16 02:03; Start 08/03/16 at 02:15; Stop 08/03/16 at 02:16; Status DC Lactated Ringer's (Iv Lactated Ringers) 500 ml @ 500 mls/hr 1X ONCE IV Last administered on 08/03/16 10:15; Start 08/03/16 at 10:15; Stop 08/03/16 at 11:14 ; Status DC Sodium Bicarbonate 50 meq 1X ONCE IV Last administered on 08/03/16 10:44; Start 08/03/16 at 10:15; Stop 08/03/16 at 10:20; Status DC Calcium Gluconate 1000 mg 1,000 mg 1X ONCE IVP ; Start 08/03/16 at 12:15; Stop 08/03/16 at 12:16; Status DC Sodium Bicarbonate 150 meq/Dextrose/ Sodium Chloride 1,150 ml @ 100 mls/hr [id number] PRN IV .; Start 08/03/16 at 12:30; Stop 08/03/16 at 13:03; Status DC Magnesium Sulfate/ Dextrose 50 ml @ 25 mls/hr PRN DAILY PRN IV for Mag < 1.7 on am labs; Start 08/03/16 at 12:30 Sodium Bicarbonate 150 meq/Dextrose 1,150 ml @ 100 mls/hr [id number] IV Last administered on 08/04/16 04:31; Start 08/03/16 at 13:30; Stop 08/04/16 at 08:31 ; Status DC Calcium Chloride 2000 mg/Sodium Chloride 120 ml @ 240 mls/hr 1X ONCE IV Last administered on 08/03/16 13:30; Start 08/03/16 at 13:30; Stop 08/03/16 at 13:59 ; Status DC Piperacillin Sod/ Tazobactam Sod/ Sodium Chloride (Zosyn/Iv Sodium Chloride 0.9 % 50ml) 50 ml @ 100 mls/hr Q6HRS IV Last administered on 08/08/16 12:09; Start 08/03/16 at 18:00 Heparin Sodium (Porcine) (Heparin Sodium) 10,000 unit STK-MED ONCE .ROUTE ; Start 08/03/16 at 14:31; Stop 08/03/16 at 14:32; Status DC Lidocaine/Sodium Bicarbonate (Buffered Lidocaine 1%) 20 ml STK-MED ONCE IJ ; Start 08/03/16 at 14:31; Stop 08/03/16 at 14:32; Status DC Heparin Sodium/ Sodium Chloride 60 unit 1X ONCE IV Last administered on 16:17; Start 08/03/16 at 14:45; Stop 08/03/16 at 14:46; Status DC Heparin Sodium (Porcine) (Heparin Sodium) 2,500 unit 1X ONCE INT CAT Last administered on 08/03/16 16:16; Start 08/03/16 at 14:45; Stop 08/03/16 at 14:46 ; Status DC Lidocaine/Sodium Bicarbonate (Buffered Lidocaine 1%) 3 ml 1X ONCE IJ Last administered on 08/03/16 16:16; Start 08/03/16 at 14:45; Stop 08/03/16 at 14:46 ; Status DC Fentanyl Citrate (Fentanyl 2ml Vial) 25 mcg PRN Q5MIN PRN IV MILD PAIN; Start 08/04/16 at 07:00; Stop 08/05/16 at 06:59; Status DC Fentanyl Citrate (Fentanyl 2ml Vial) 50 mcg PRN Q5MIN PRN IV MODERATE PAIN; Start 08/04/16 at 07:00; Stop 08/05/16 at 06:59; Status DC Morphine Sulfate 1 mg 1 mg PRN Q10MIN PRN IV SEVERE PAIN; Start 08/04/16 at 07: 00; Stop 08/05/16 at 06:59; Status DC Lactated Ringer's (Iv Lactated Ringers) 1,000 ml @ 0 mls/hr Q0M IV ; Start at 07:00; Stop 08/04/16 at 18:59; Status DC Lidocaine HCl 2 ml PRN 1X PRN ID PRIOR TO IV START; Start 08/04/16 at 07:00; Stop 08/05/16 at 06:59; Status DC Hydromorphone HCl (Dilaudid) 0.5 mg PRN Q10MIN PRN IV SEV PAIN, Second choice; Start 08/04/16 at 07:00; Stop 08/05/16 at 06:59; Status DC Famotidine (Pepcid) 20 mg DAILY IVP Last administered on 08/05/16 07:43; Start 08/04/16 at 09:00; Stop 08/06/16 at 07:05; Status DC Insulin Aspart (Novolog) 0-7 UNITS TIDWMEALS SQ Last administered on 08/07/16 16:37; Start 08/03/16 at 19:00 Dextrose 12.5 gm 12.5 gm PRN Q15MIN PRN IV SEE COMMENTS; Start 08/03/16 at 18: 30 Sodium Chloride 1,000 ml @ 1,000 mls/hr Q1H PRN IV hypotension; Start 08/03/16 at 18:33; Stop 08/04/16 at 00:32; Status DC Sodium Chloride (Iv Sodium Chloride 0.9% 1000ml Bag) 1,000 ml @ 400 mls/hr Q2H30M PRN IV PATENCY; Start 08/03/16 at 18:33; Stop 08/04/16 at 06:32; Status DC Info 1 each 1 each PRN DAILY PRN MC SEE COMMENTS; Start 08/03/16 at 18:45; Stop 08/06/16 at 09:01; Status DC Sodium Chloride 1,000 ml @ 1,000 mls/hr Q1H PRN IV hypotension; Start 08/04/16 at 07:44; Stop 08/04/16 at 13:43; Status DC Albumin Human (Albuminar) 200 ml @ 200 mls/hr 1X PRN PRN IV Hypotension Last administered on 08/04/16t 08:48; Start 08/04/16 at 07:45; Stop 08/04/16 at 13:44 ; Status DC Diphenhydramine HCl (Benadryl) 25 mg 1X PRN PRN IV ITCHING; Start 08/04/16 at 07:45; Stop 08/05/16 at 07:44; Status DC Diphenhydramine HCl (Benadryl) 25 mg 1X PRN PRN IV ITCHING; Start 08/04/16 at 07:45; Stop 08/05/16 at 07:44; Status DC Sodium Chloride (Normal Saline Flush) 10 ml 1X PRN PRN IV AP catheter pack; Start 08/04/16 at 07:45; Stop 08/05/16 at 07:44; Status DC Sodium Chloride 10 ml 10 ml 1X PRN PRN IV FLOWER BUNCHER OR PICKER catheter pack; Start 08/04/16 at 07:45; Stop 08/05/16 at 07:44; Status DC Sodium Chloride (Iv Sodium Chloride 0.9% 1000ml Bag) 1,000 ml @ 400 mls/hr Q2H30M PRN IV PATENCY; Start 08/04/16 at 07:44; Stop 08/04/16 at 19:43; Status DC Info (PHARMACY MONITORING -- do not chart) 1 each PRN DAILY PRN MC SEE COMMENTS ; Start 08/04/16 at 07:45; Stop 08/06/16 at 09:02; Status DC Heparin Sodium (Porcine) 5,000 unit Q12HR SQ Last administered on 08/08/16 10: 56; Start 08/04/16 at 21:00 Sevelamer Carbonate 2.4 gm 2.4 gm BID FT Last administered on 08/08/16 10:55; Start 08/05/16 at 10:00 Sodium Chloride 1,000 ml @ 1,000 mls/hr Q1H PRN IV hypotension; Start 08/05/16 at 12:28; Stop 08/05/16 at 18:27; Status DC Albumin Human (Albuminar) 200 ml @ 200 mls/hr 1X PRN PRN IV Hypotension; Start 08/05/16 at 12:30; Stop 08/05/16 at 18:29; Status DC Sodium Chloride (Normal Saline Flush) 10 ml 1X PRN PRN IV AP catheter pack; Start 08/05/16 at 12:30; Stop 08/06/16 at 12:29; Status DC Sodium Chloride 10 ml 10 ml 1X PRN PRN IV FLOWER BUNCHER OR PICKER catheter pack; Start 08/05/16 at 12:30; Stop 08/06/16 at 12:29; Status DC Sodium Chloride (Iv Sodium Chloride 0.9% 1000ml Bag) 1,000 ml @ 400 mls/hr Q2H30M PRN IV PATENCY; Start 08/05/16 at 12:28; Stop 08/06/16 at 00:27; Status DC Info 1 each 1 each PRN DAILY PRN MC SEE COMMENTS; Start 08/05/16 at 12:30; Stop 08/08/16 at 07:15; Status DC Propofol (Diprivan) 20 ml @ As Directed STK-MED ONCE IV ; Start 08/05/16 at 13: 01; Stop 08/05/16 at 13:02; Status DC Rocuronium [place] (Zemuron) 50 mg STK-MED ONCE .ROUTE ; Start 08/05/16 at 13:01 ; Stop 08/05/16 at 13:02; Status DC Dexamethasone Sodium Phosphate (Decadron) 20 mg STK-MED ONCE .ROUTE ; Start at 13:05; Stop 08/05/16 at 13:06; Status DC Famotidine (Pepcid) 20 mg STK-MED ONCE .ROUTE ; Start 08/05/16 at 13:05; Stop at 13:06; Status DC Ondansetron HCl (Zofran) 4 mg STK-MED ONCE .ROUTE ; Start 08/05/16 at 13:05; Stop 08/05/16 at 13:06; Status DC Midazolam HCl (Versed) 2 mg STK-MED ONCE .ROUTE ; Start 08/05/16 at 13:13; Stop 08/05/16 at 13:14; Status DC Vasopressin (Vasostrict) 20 unit STK-MED ONCE .ROUTE ; Start 08/05/16 at 13:58; Stop 08/05/16 at 13:59; Status DC Sodium Chloride (Sodium Chloride) 50 ml STK-MED ONCE IJ ; Start 08/05/16 at 13: 58; Stop 08/05/16 at 13:59; Status DC Sevoflurane (Ultane) 60 ml STK-MED ONCE IH ; Start 08/05/16 at 14:29; Stop 08/05 at 14:30; Status DC Alprazolam (Xanax) 0.25 mg PRN Q8HRS PRN PEG ANXIETY / AGITATION Last administered on 08/07/16 07:26; Start 08/05/16 at 14:45 Lidocaine HCl (Xylocaine-Mpf 1% Vial) 5 ml STK-MED ONCE INJ Last administered on 08/05/16 14:55; Start 08/05/16 at 14:55; Stop 08/05/16 at 15:11; Status DC Pantoprazole Sodium 40 mg 40 mg DAILYAC IVP Last administered on 08/08/16 10: 54; Start 08/06/16 at 07:30 Linezolid 300 ml @ 300 mls/hr Q12HR IV Last administered on 08/08/16 10:55; Start 08/06/16 at 11:30 Sodium Chloride 1,000 ml @ 1,000 mls/hr Q1H PRN IV hypotension; Start 08/06/16 at 13:17; Stop 08/06/16 at 19:16; Status DC Sodium Chloride (Iv Sodium Chloride 0.9% 1000ml Bag) 1,000 ml @ 400 mls/hr Q2H30M PRN IV PATENCY; Start 08/06/16 at 13:17; Stop 08/07/16 at 01:16; Status DC Info (PHARMACY MONITORING -- do not chart) 1 each PRN DAILY PRN MC SEE COMMENTS ; Start 08/06/16 at 13:30; Status UNV Darbepoetin Nick (Aranesp) 60 mcg WEEKLYHS SQ Last administered on 08/07/16 21 :04; Start 08/07/16 at 21:00 Zolpidem Tartrate 5 mg 5 mg HS PO Last administered on 08/07/16 21:05; Start 08/07/16 at 21:00 Sodium Chloride 1,000 ml @ 1,000 mls/hr Q1H PRN IV hypotension; Start 08/08/16 at 07:01; Stop 08/08/16 at 13:00; Status DC Albumin Human (Albuminar) 200 ml @ 200 mls/hr 1X PRN PRN IV Hypotension Last administered on 08/08/16 09:43; Start 08/08/16 at 07:15; Stop 08/08/16 at 13:14 ; Status DC Acetaminophen (Tylenol) 500 mg 1X PRN PRN PO MILD PAIN / TEMP; Start 08/08/16 at 07:15; Stop 08/09/16 at 07:14 Diphenhydramine HCl (Benadryl) 25 mg 1X PRN PRN IV ITCHING; Start 08/08/16 at 07:15; Stop 08/09/16 at 07:14 Diphenhydramine HCl (Benadryl) 25 mg 1X PRN PRN IV ITCHING; Start 08/08/16 at 07:15; Stop 08/09/16 at 07:14 Labetalol HCl (Normodyne) 10 mg PRN Q1HR PRN IVP SBP > 180; Start 08/08/16 at 07:15; Stop 08/09/16 at 07:14 Clonidine HCl 0.1 mg 0.1 mg 1X PRN PRN PO SBP > 180; Start 08/08/16 at 07:15; Stop 08/09/16 at 07:14 Sodium Chloride (Iv Sodium Chloride 0.9% 1000ml Bag) 1,000 ml @ 400 mls/hr Q2H30M PRN IV PATENCY; Start 08/08/16 at 07:01; Stop 08/08/16 at 19:00 Info (PHARMACY MONITORING -- do not chart) 1 each PRN DAILY PRN MC SEE COMMENTS ; Start 08/08/16 at 07:15 Active Scripts Active Reported Amlodipine Besylate 5 Mg Tablet 5 Mg PO DAILY Pradaxa (Dabigatran Etexilate Mesylate) 150 Mg Capsule 1 Cap PO BID Metoprolol Succinate ( Xl ) (Metoprolol Succinate) 100 Mg Tab.er.24h 1 Tab PO DAILY Vitals/I & O Vital Sign - Last 24 Hours 08/07/16 08/07/16 08/07/16 08/07/16 14:00 15:00 15:48 16:00 Pulse 87 80 Resp 18 18 B/P 90/56 107/60 Pulse Ox 99 99 100 O2 Delivery Ventilator Ventilator Ventilator Mechanical Ventilator 08/07/16 08/07/16 08/07/16 08/07/16 16:00 17:01 17:37 18:00 Temp 98.7 98.7 Pulse 93 89 95 Resp 24 25 33 B/P 119/73 102/64 112/64 Pulse Ox 100 100 100 99 O2 Delivery Ventilator Ventilator Ventilator Ventilator 08/07/16 08/07/16 08/07/16 08/07/16 19:00 20:00 20:08 20:11 Temp 98.3 98.3 Pulse 100 113 Resp 31 24 B/P 126/68 116/70 Pulse Ox 99 100 100 100 O2 Delivery Ventilator Ventilator Ventilator Ventilator 08/07/16 08/07/16 08/07/16 08/07/16 20:15 21:00 21:05 21:06 Pulse 104 92 92 Resp 20 B/P 119/67 119/67 119/67 Pulse Ox 94 O2 Delivery Mechanical Ventilator Ventilator 08/07/16 08/07/16 08/07/16 08/08/16 22:00 23:00 23:42 00:00 Pulse 86 75 Resp 26 25 B/P 99/56 103/57 Pulse Ox 99 100 99 O2 Delivery Ventilator Ventilator Ventilator Mechanical Ventilator 08/08/16 08/08/16 08/08/16 08/08/16 00:00 01:00 02:00 02:38 Temp 99.1 99.1 Pulse 90 83 89 Resp 22 21 27 B/P 103/60 100/56 103/59 Pulse Ox 99 100 98 98 O2 Delivery Ventilator Ventilator Ventilator Ventilator 08/08/16 08/08/16 08/08/16 08/08/16 03:00 04:00 04:00 04:36 Temp 97.6 97.6 Pulse 81 98 Resp 22 23 B/P 101/54 101/58 Pulse Ox 100 100 100 O2 Delivery Ventilator Ventilator Mechanical Ventilator Ventilator 08/08/16 08/08/16 08/08/16 08/08/16 05:05 06:00 06:07 07:00 Temp 98.0 98.0 Pulse 98 101 94 Resp 20 23 33 B/P 95/53 117/68 114/70 Pulse Ox 100 100 100 99 O2 Delivery Ventilator Ventilator Ventilator BiPAP/CPAP 08/08/16 08/08/16 08/08/16 08/08/16 07:45 08:00 09:00 09:00 Pulse 110 106 Resp 28 28 B/P 125/67 95/60 Pulse Ox 99 100 99 O2 Delivery Mechanical Ventilator BiPAP/CPAP Ventilator BiPAP/CPAP 08/08/16 08/08/16 08/08/16 08/08/16 09:30 10:00 10:54 10:55 Pulse 98 98 98 Resp 27 B/P 107/62 107/62 107/62 Pulse Ox 98 O2 Delivery Ventilator Ventilator 08/08/16 08/08/16 08/08/16 08/08/16 10:55 11:00 11:05 12:00 Temp 98.4 98.4 Pulse 94 98 Resp 29 32 B/P 104/56 111/65 Pulse Ox 99 100 100 O2 Delivery Ventilator Ventilator 08/08/16 08/08/16 08/08/16 08/08/16 12:00 13:00 13:14 13:27 Pulse 100 Resp 32 B/P 106/62 Pulse Ox 100 100 O2 Delivery Mechanical Ventilator Ventilator Ventilator Ventilator Intake and Output 08/07/16 08/07/16 08/08/16 15:00 23:00 07:00 Intake Total 625 ml 610 ml 1095 ml Output Total 45 ml 55 ml 153 ml Balance 580 ml 555 ml 942 ml CASTLE,NIAL K III DO Aug 08, 2016 14:00
--- NOTE | 2016-08-08 14:30 | PDOC ---
PROGRESS NOTES Assessment Assessment IMPRESSION: Metabolic encephalopathy. Respiratory failure. Small right SDH ? Infarct suspicious. S/p CABg CAD [place] PAD Cardiomyopathy. AFib CHF, EF 25% Cardiogenic shock. DM Hypocalcemia. Anemia. 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 RECOMMENDATIONS/PLAN: Repeat HCT when stable. Continue cardiac and medical treatment. Lab: see orders. OT/PT SUBJECTIVE: Awake from time to time. OBJECTIVE: Unable to communicate. PAST MEDICAL AND SURGICAL HISTORY: Please see H&P ALLERGY: Reviewed. MEDICATIONS: Refer to [facility] REVIEW OF SYSTEMS: Constitutional: weakness. Head: No recent traumatic brain or head injury. Skin: Edema noted. Ear: No infection Eyes: No vision loss. Nose: No bleeding or purulent discharges. Hearing: No hearing decrease. Neck: No injury. Cardiac: [place], s/p CABG, AFib, HTN Pulmonary: Respiratory failure. GI: No GI Ulcer, GI bleeding Urinary/genital: UTI. Endocrine: Diabetes Mellitus. Skeletomuscular: Generalized weakness. Neurological: see HP. Psychiatric: Denies drug use/abuse. Otherwise, not [id number] review of systems. PHYSICAL EXAMINATION: General appearance in subacute distress. HEENT: Normocephalic and nontraumatic. Eyes, nose, ears, and throat are unremarkable. Hearing decrease. Neck is supple. No lymphadenopathy. No Crepitus. Cardiovascular: S1, S2, irregular rate and rhythm. Pulmonary: On vent. Abdomen: Bowel sounds are positive. Extremities: Edema. NEUROLOGICAL EXAMINATION: Awake from time to time. Not oriented to time, place and person. PERRL. EOMI slow. CN: no acute focal findings. Muscle tone: Decreased. Muscle strength: minimal movements in UE, but not in LE. DTR: 1 UE, 0-1 at knee. Plantar reflex: Neutral response bilaterally Gait: Unable to walk. Sensory exam: Minimal response to stimuli but was due to motor weakness. Not able to access cerebellar signs. F-T-N test not performed due to not follow commands. Objective Objective Vital Signs Date Time Temp Pulse Resp B/P Pulse Ox O2 Delivery O2 Flow Rate FiO2 08/08/16 13:27 Ventilator 08/08/16 13:14 100 08/08/16 13:00 100 32 106/62 08/08/16 11:05 98.4 98.4 08/07/16 11:17 10.0 Intake and Output 08/08/16 06:59 Intake Total 2430 ml Output Total 215 ml Balance 2215 ml IV Total 400 ml Tube Feeding 1930 ml Other 100 ml Output Urine Total 215 ml # Bowel Movements 6 Vitals Signs Vitals VS - Last 72 Hours, by Label Date Time Temp Pulse Resp B/P Pulse Ox O2 Delivery O2 Flow Rate FiO2 08/08/16 13:27 Ventilator 08/08/16 13:14 100 Ventilator 08/08/16 13:00 100 32 106/62 100 Ventilator 08/08/16 12:00 Mechanical Ventilator 08/08/16 12:00 98 32 111/65 100 Ventilator 08/08/16 11:05 98.4 98.4 08/08/16 11:00 94 29 104/56 100 08/08/16 10:55 99 Ventilator 08/08/16 10:55 98 107/62 08/08/16 10:54 98 107/62 08/08/16 10:00 98 27 107/62 98 Ventilator 08/08/16 09:30 Ventilator 08/08/16 09:00 106 28 95/60 99 BiPAP/CPAP 08/08/16 09:00 100 Ventilator 08/08/16 08:00 110 28 125/67 99 BiPAP/CPAP 08/08/16 07:45 Mechanical Ventilator 08/08/16 07:00 98.0 94 33 114/70 99 BiPAP/CPAP 98.0 08/08/16 06:07 100 Ventilator 08/08/16 06:00 101 23 117/68 100 Ventilator 08/08/16 05:05 98 20 95/53 100 Ventilator 08/08/16 04:36 100 Ventilator 08/08/16 04:00 Mechanical Ventilator 08/08/16 04:00 97.6 98 23 101/58 100 Ventilator 97.6 08/08/16 03:00 81 22 101/54 100 Ventilator 08/08/16 02:38 98 Ventilator 08/08/16 02:00 89 27 103/59 98 Ventilator 08/08/16 01:00 83 21 100/56 100 Ventilator 08/08/16 00:00 99.1 90 22 103/60 99 Ventilator 99.1 08/08/16 00:00 Mechanical Ventilator 08/07/16 23:42 99 Ventilator 08/07/16 23:00 75 25 103/57 100 Ventilator 08/07/16 22:00 86 26 99/56 99 Ventilator 08/07/16 21:06 92 119/67 08/07/16 21:05 92 119/67 08/07/16 21:00 104 20 119/67 94 Ventilator 08/07/16 20:15 Mechanical Ventilator 08/07/16 20:11 100 Ventilator 08/07/16 20:08 100 Ventilator 08/07/16 20:00 98.3 113 24 116/70 100 Ventilator 98.3 08/07/16 19:00 100 31 126/68 99 Ventilator 08/07/16 18:00 95 33 112/64 99 Ventilator 08/07/16 17:37 100 Ventilator 08/07/16 17:01 89 25 102/64 100 Ventilator 08/07/16 16:00 98.7 93 24 119/73 100 Ventilator 98.7 08/07/16 16:00 Mechanical Ventilator 08/07/16 15:48 100 Ventilator 08/07/16 15:00 80 18 107/60 99 Ventilator 08/07/16 14:00 87 18 90/56 99 Ventilator 08/07/16 13:00 87 18 119/62 99 Ventilator 08/07/16 12:39 100 Ventilator 08/07/16 12:00 Mechanical Ventilator 08/07/16 12:00 89 128/58 08/07/16 12:00 98.7 74 29 129/59 100 T-Tube 98.7 08/07/16 11:17 100 T-Tube 10.0 08/07/16 11:00 78 30 118/54 99 T-Tube 08/07/16 10:00 80 25 125/51 99 Ventilator 08/07/16 09:00 80 30 120/56 99 Ventilator 08/07/16 08:42 100 Ventilator 08/07/16 08:00 Mechanical Ventilator 08/07/16 08:00 98.6 77 22 116/59 99 Ventilator 98.6 08/07/16 08:00 98 112/59 08/07/16 07:25 95 143/75 08/07/16 07:25 95 143/75 08/07/16 07:00 95 22 149/75 98 Ventilator Laboratory Laboratory Laboratory Tests Test 08/07/16 16:36 08/08/16 00:17 08/08/16 06:20 08/08/16 09:00 Glucose (Fingerstick) 170mg/dL (70-99) 163mg/dL (70-99) White Blood Count 5.2x10^3/uL (4.0-11.0) Red Blood Count 2.49x10^6/uL (4.30-5.70) Hemoglobin 7.9g/dL (13.0-17.5) Hematocrit 24.1% (39.0-53.0) Mean Corpuscular Volume 97fL (79-100) Mean Corpuscular Hemoglobin 32pg (25-35) Mean Corpuscular Hemoglobin Concent 33g/dL (31-37) Red Cell Distribution Width 16.6% (11.5-14.5) Platelet Count 120x10^3/uL (140-400) Neutrophils (%) (Auto) 85% (31-73) Lymphocytes (%) (Auto) 6% (24-48) Monocytes (%) (Auto) 8% (0-9) Eosinophils (%) (Auto) 0% (0-3) Basophils (%) (Auto) 0% (0-3) Neutrophils # (Auto) 4.4x10^3uL (1.8-7.7) Lymphocytes # (Auto) 0.3x10^3/uL (1.0-4.8) Monocytes # (Auto) 0.4x10^3/uL (0.0-1.1) Eosinophils # (Auto) 0.0x10^3/uL (0.0-0.7) Basophils # (Auto) 0.0x10^3/uL (0.0-0.2) Sodium Level 142mmol/L (136-145) Potassium Level 4.2mmol/L (3.5-5.1) Chloride Level 100mmol/L (98-107) Carbon Dioxide Level 24mmol/L (21-32) Anion Gap 18 (6-14) Blood Urea Nitrogen 120mg/dL (8-26) Creatinine 4.7mg/dL (0.7-1.3) Estimated GFR (Cockcroft-Gault) 12.9 Glucose Level 154mg/dL (70-99) Calcium Level 7.6mg/dL (8.5-10.1) Phosphorus Level 6.1mg/dL (2.6-4.7) Albumin 2.2g/dL (3.4-5.0) O2 Saturation 98% (92-99) Arterial Blood pH 7.50 (7.35-7.45) Arterial Blood pCO2 at Patient Temp 30mmHg (35-46) Arterial Blood pO2 at Patient Temp 115mmHg (75-108) Arterial Blood HCO3 23mmol/L (21-28) Arterial Blood Base Excess 0mmol/L (-3-3) FiO2 40 Test 08/08/16 10:52 Glucose (Fingerstick) 130mg/dL (70-99) Microbiology 08/02/16 Blood Culture - Final, Complete NO GROWTH AFTER 5 DAYS 08/03/16 Sputum Culture - Final, Complete 08/03/16 Sputum Result 1 - Final, Complete 08/03/16 Sputum Result 2 - Final, Complete 08/03/16 Antimicrobic Susceptibility - Final, Complete 08/02/16 Urine Culture - Final, Complete 08/02/16 Urine Culture Result 1 (MILEY) - Final, Complete 08/03/16 Gram Stain - Final, Complete Medication Medications Current Medications Acetaminophen (Tylenol) 500 mg 1X PRN PRN PO MILD PAIN / TEMP; Start 08/08/16 at 07:15; Stop 08/09/16 at 07:14 Albumin Human (Albuminar) 200 ml @ 200 mls/hr 1X PRN PRN IV Hypotension Last administered on 08/08/16 09:43; Start 08/08/16 at 07:15; Stop 08/08/16 at 13:14 ; Status DC Amiodarone HCl (Cordarone) 400 mg DAILY PO ; Start 08/09/16 at 09:00 Clonidine HCl 0.1 mg 0.1 mg 1X PRN PRN PO SBP > 180; Start 08/08/16 at 07:15; Stop 08/09/16 at 07:14 Darbepoetin Nick (Aranesp) 60 mcg WEEKLYHS SQ Last administered on 08/07/16 21 :04; Start 08/07/16 at 21:00 Diphenhydramine HCl (Benadryl) 25 mg 1X PRN PRN IV ITCHING; Start 08/08/16 at 07:15; Stop 08/09/16 at 07:14 Diphenhydramine HCl (Benadryl) 25 mg 1X PRN PRN IV ITCHING; Start 08/08/16 at 07:15; Stop 08/09/16 at 07:14 Info (PHARMACY MONITORING -- do not chart) 1 each PRN DAILY PRN MC SEE COMMENTS ; Start 08/08/16 at 07:15 Labetalol HCl (Normodyne) 10 mg PRN Q1HR PRN IVP SBP > 180; Start 08/08/16 at 07:15; Stop 08/09/16 at 07:14 Sodium Chloride 1,000 ml @ 1,000 mls/hr Q1H PRN IV hypotension; Start 08/08/16 at 07:01; Stop 08/08/16 at 13:00; Status DC Sodium Chloride (Iv Sodium Chloride 0.9% 1000ml Bag) 1,000 ml @ 400 mls/hr Q2H30M PRN IV PATENCY; Start 08/08/16 at 07:01; Stop 08/08/16 at 19:00 Zolpidem Tartrate 5 mg 5 mg HS PO Last administered on 08/07/16t 21:05; Start 08/07/16 at 21:00 Comment Review of Relevant I have reviewed the following items leonidas (where applicable) has been applied. ROXI SCHMITT MD Aug 08, 2016 14:30
[2016-08-08] MEDS: MICAFUNGIN 100 MG in IV DEXTROSE 5% 100 ML IV SCH (17:12)
[2016-08-08] MEDS: ATORVASTATIN CALCIUM 40 MG TABLET. PO SCH (21:13)
[2016-08-08] MEDS: ZOLPIDEM 5 MG TABLET. PO SCH ×2 (21:15→23:59)
--- NOTE | 2016-08-08 22:58 | PDOC ---
Provider Note Provider Note RENAL F/U: VIKTOR. S : Trach. Vent. Awake. No distress. O : VSS. Afebrile. Alert. Neck : Trach Lungs : Decreased bases CVS : RRR Abd: Soft, benign in appearance. Ext: No major edema Neuro : Grossly intact. A/P: ARF/ ATN ACUTE RESP FAILURE.HTN w CKD. HD support. CPM. DC to [facility] in am? CPM. NELY HOANG MD Aug 08, 2016 22:58
[2016-08-09] VITALS (24 sets, daily range): BP systolic 87–128; BP diastolic 53–77
[2016-08-09] MEDS: ALPRAZolam 0.25 MG TABLET PEG PRN ×2 (01:03→07:46)
[2016-08-09] MEDS: PIPERACILLIN/TAZOBACTAM 2.25 GM in IV NORMAL SALINE 50ML 50 ML IV SCH ×3 (06:07→21:54)
[2016-08-09 06:29] LABS: BASO % 0 % (0-3); EOS % 1 % (0-3); HEMATOCRIT 22.6 % (39.0-53.0); HEMOGLOBIN 7.6 g/dL (13.0-17.5); LYMPH # 0.4 x10^3/uL (1.0-4.8); LYMPH % 6 % (24-48); MEAN CORPUSCULAR HEMOGLOBIN 32 pg (25-35); MEAN CORPUSCULAR HGB CONC 34 g/dL (31-37); MEAN CORPUSCULAR VOLUME 96 fL (79-100); MONO % 6 % (0-9); NEUT % 87 % (31-73); PLATELET COUNT 123 x10^3/uL (140-400); RED BLOOD COUNT 2.37 x10^6/uL (4.30-5.70); RED CELL DISTRIBUTION WIDTH 17.6 % (11.5-14.5)
[2016-08-09 06:41] LABS: ALBUMIN 2.2 g/dL (3.4-5.0); ALBUMIN/GLOBULIN RATIO 0.7 (1.0-1.7); CREATININE 3.9 mg/dL (0.7-1.3); PHOSPHORUS 6.6 mg/dL (2.6-4.7); POTASSIUM 4.4 mmol/L (3.5-5.1); TOTAL BILIRUBIN 2.3 mg/dL (0.2-1.0); TOTAL PROTEIN 5.4 g/dL (6.4-8.2)
[2016-08-09] MEDS: HEPARIN PF for SUB-Q USE 5,000 UNIT/0.5 ML VIAL. SQ SCH ×2 (07:44→21:44)
[2016-08-09] MEDS: PANTOPRAZOLE IV PUSH 40 MG VIAL. IVP SCH (07:44)
[2016-08-09] MEDS: AMIODARONE HCL 200 MG TABLET. PO SCH (07:45)
[2016-08-09] MEDS: MINERAL OIL/PETROLATUM,WHITE OPHTH OINT 3.5GM TUBE. OU SCH ×2 (07:46→21:30)
[2016-08-09] MEDS: ASPIRIN 325 MG TABLET PO SCH (07:46)
[2016-08-09] MEDS: CHLORHEXIDINE 0.12% 15 ML MOUTHWASH. MM SCH (07:46)
[2016-08-09] MEDS: METOPROLOL TART IMMED RELEASE 25 MG TABLET. NG SCH ×2 (07:46→21:42)
[2016-08-09] MEDS: SEVELAMER CARBONATE 2.4 GM PACKET. FT SCH ×2 (07:46→21:42)
[2016-08-09] MEDS: INSULIN ASPART 300 UNITS/3 ML INSULN.PEN SQ SCH ×3 (07:47→16:36)
--- NOTE | 2016-08-09 07:57 | PDOC ---
Infectious Disease Note Subjective Subjective Slept well last pm TAYA ROS trached Vital Sign Vital Signs Vital Signs Date Time Temp Pulse Resp B/P Pulse Ox O2 Delivery O2 Flow Rate FiO2 08/09/16 07:00 76 20 100/59 99 Ventilator 08/09/16 04:00 98.9 98.9 08/08/16 20:34 10.0 Physical Exam PHYSICAL EXAM GENERAL: NAD /comfortable HEENT: PERRL, Icteric. Oral mucosa dry NECK: Trach/vent. LUNGS: Clear anteriorly HEART: S1S2 ABD: Mildly distended, BS present, soft, NT. PEG intact/ Rectal tube : Tesfaye EXT: Generalized edema 1+. 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 Sternal and left leg incision well-approximate. no redness RUE PICC clean RIJ temp HD cath 08/03). clean LUE art-line. clean Labs Lab Laboratory Tests Test 08/08/16 09:00 08/08/16 10:52 08/08/16 17:15 08/09/16 00:13 O2 Saturation 98% (92-99) Arterial Blood pH 7.50 (7.35-7.45) Arterial Blood pCO2 at Patient Temp 30mmHg (35-46) Arterial Blood pO2 at Patient Temp 115mmHg (75-108) Arterial Blood HCO3 23mmol/L (21-28) Arterial Blood Base Excess 0mmol/L (-3-3) FiO2 40 Glucose (Fingerstick) 130mg/dL (70-99) 134mg/dL (70-99) 141mg/dL (70-99) Test 08/09/16 05:00 08/09/16 06:01 08/09/16 06:09 White Blood Count 6.0x10^3/uL (4.0-11.0) Red Blood Count 2.37x10^6/uL (4.30-5.70) Hemoglobin 7.6g/dL (13.0-17.5) Hematocrit 22.6% (39.0-53.0) Mean Corpuscular Volume 96fL (79-100) Mean Corpuscular Hemoglobin 32pg (25-35) Mean Corpuscular Hemoglobin Concent 34g/dL (31-37) Red Cell Distribution Width 17.6% (11.5-14.5) Platelet Count 123x10^3/uL (140-400) Neutrophils (%) (Auto) 87% (31-73) Lymphocytes (%) (Auto) 6% (24-48) Monocytes (%) (Auto) 6% (0-9) Eosinophils (%) (Auto) 1% (0-3) Basophils (%) (Auto) 0% (0-3) Neutrophils # (Auto) 5.2x10^3uL (1.8-7.7) Lymphocytes # (Auto) 0.4x10^3/uL (1.0-4.8) Monocytes # (Auto) 0.4x10^3/uL (0.0-1.1) Eosinophils # (Auto) 0.0x10^3/uL (0.0-0.7) Basophils # (Auto) 0.0x10^3/uL (0.0-0.2) Glucose (Fingerstick) 118mg/dL (70-99) Sodium Level 138mmol/L (136-145) Potassium Level 4.4mmol/L (3.5-5.1) Chloride Level 98mmol/L (98-107) Carbon Dioxide Level 26mmol/L (21-32) Anion Gap 14 (6-14) Blood Urea Nitrogen 93mg/dL (8-26) Creatinine 3.9mg/dL (0.7-1.3) Estimated GFR (Cockcroft-Gault) 16.0 BUN/Creatinine Ratio 24 (6-20) Glucose Level 126mg/dL (70-99) Calcium Level 8.0mg/dL (8.5-10.1) Phosphorus Level 6.6mg/dL (2.6-4.7) Total Bilirubin 2.3mg/dL (0.2-1.0) Aspartate Amino Transf (AST/SGOT) 176U/L (15-37) Alanine Aminotransferase (ALT/SGPT) 157U/L (16-63) Alkaline Phosphatase 104U/L (46-116) Total Protein 5.4g/dL (6.4-8.2) Albumin 2.2g/dL (3.4-5.0) Albumin/Globulin Ratio 0.7 (1.0-1.7) Micro 08/03 sputum Enterobacter cloacae complex Moderate growth SPUTUM CULT RES 2 Final Staphylococcus aureus Moderate growth Methicillin resistant (MRSA) Based on resistance to oxacillin this isolate would be resistant to all currently available beta-lactam antimicrobial agents, with the exception of the newer cephalosporins with anti-MRSA activity, such as Ceftaroline ANTIMICROBIAL SUSCEPTIBILITY Final Comment S = Susceptible; I = Intermediate; R = Resistant P = Positive; N = Negative MICS are expressed in micrograms per mL Antibiotic RSLT#1 RSLT#2 RSLT#3 RSLT#4 Amoxicillin/Clavulanic Acid R Cefazolin R Cefepime S Ceftriaxone S Cefuroxime R Ciprofloxacin S R CONTINUED ON NEXT PAGE RUN DATE: 08/05/16 PAGE 2 RUN TIME: 1434 [facility] [address] [place] [address] Neal Cole M.D., Emission Technician SPEC: [id number] PATIENT: CHARLY NAJERA [id number] ( Continued) Procedure Result Sputum 08/03 ANTIMICROBIAL SUSCEPTIBILITY Final (continued) Clindamycin R Ertapenem S Erythromycin R Gentamicin S S Imipenem S Levofloxacin S R Linezolid S Oxacillin R Penicillin R Piperacillin S Rifampin S Tetracycline S S Tobramycin S Trimethoprim/Sulfa S S Vancomycin S Objective Assessment 1. ? sepsis on Vanc/Zosyn/Micafungin 08/02 - improved. MRSA/Enterobacter sputum 2. 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 Perihepatic fluid on CT abd/pelvis 4. JAKE - s/p HD 5. S/p CABG x 3 ,S/p left ventricular assist device 07/25 6. S/p Chest wound closure 07/27 7. 07/28 - S/p Left external iliac artery subtotal occlusion, s/p successful angioplasty with a 7 x 80 mm balloon. LSFA stenosis, s/p successful angioplasty with a 4.0 x 20 mm balloon Successful removal of a Impella CP percutaneous left ventricular assist device. Primary repair of common femoral artery 8. Small extra-axial fluid collection posteriorly near the right hemispheric vertex consistent with a small area of bleeding CT head 08/01 - stable on recent CT 9. Sinusitis CT 08/01 10. Resp failure -on vent 11. Afib 12. Cardiogenic shock 13. Severe three-vessel coronary artery disease 14. ST elevation myocardial infarction - intra-op 15. Severe ischemic cardiomyopathy 16. Thrombocytopenia - better Plan Plan of Care S/p Trach/PEG 08/05 Cont Zyvox (08/05) to per PEG, Zosyn -wean soon (treat approx 10 days) and D/c Micafungin Add probiotics Perm cath placement - prior to transfer Monitor labs Contact isolation D/w Dr. Catalan D/w [facility] CY MUKHERJEE MD Aug 09, 2016 07:57
[2016-08-09] MEDS: LACTOBACILLUS ACIDOPH & BULGAR 1 TABLET. PO SCH ×3 (08:00→16:26)
--- NOTE | 2016-08-09 08:02 | PDOC ---
SUBJECTIVE ROS JAKE/ ATN Drowsy on Vent Via trache OBJECTIVE Vital Signs Vital Signs Date Time Temp Pulse Resp B/P Pulse Ox O2 Delivery O2 Flow Rate FiO2 08/09/16 07:46 76 100/59 08/09/16 07:00 20 99 Ventilator 08/09/16 04:00 98.9 98.9 08/08/16 20:34 10.0 I & 0 Intake and Output 08/09/16 07:00 Intake Total 2202 ml Output Total 488 ml Balance 1714 ml IV Total 750 ml Tube Feeding 972 ml Other 480 ml Output Urine Total 188 ml Stool Total 300 ml Gastric Drainage Total 0 ml PHYSICAL EXAM Physical Exam General Appearance: Awake on Vent via trache. follows commands Eyes: Sclera anicteric Conjunctiva Normal EN: No EN Drainage Mucous Memb. moist Neck: no JVD no JVP Supple no Thyromegaly CVS: S1 S2 + Murmur No Gallop No Rub + 1-2 Edema Resp: few basal Rales no Rhonchi no Acc. Muscle use GI: BS hypoactive NO Bruit Non Tender Non Distended : no CVA tenderness; no Suprapubic Tenderness SKIN: no visible Rashes Breast Exam deferred Mu.Sk: Adequate passive ROM no Muscle Atrophy Heme: Unable to palpate Obvious LAD no palp Splenomegaly NEURO: Follows some commands but has significant myopahty Psych: Unable to assess currently Assessment & Plan ARF/ ATN from multiple etios: Current FLuid and E-lyte status does not necessitate emergent need for Dialysis. Will re-evaluate for Dialysis in am. Permacath Placement Anasarca - UF with HD as blaine HypoCalcemia -corrected with HD Oliguria - suspect due to ATN ^Phos - Add Aaron. based binders Anemia: may need Epogen in setting of JAKE. Transfuse planned. HypoTN:/ ? Sepsis - remains Pressor dependent - titrate for MAPs as ordered. Discussed Plan of Care and prognosis etc. at length with family (), Dr Muse and Cardio MAITRE D'Eric Newell. COMMENT/RELEVANT DATA Meds Current Medications Medications (Trade) Dose Ordered Sig/Treva Start Time Stop Time Status Last Admin Dose Admin Acetaminophen (Acetaminophen Supp) 650 mg PRN Q4HRS PRN 07/25/16 17:30 08/03/16 01:04 650 MG Acetaminophen (Tylenol) 500 mg 1X PRN PRN 08/08/16 07:15 08/09/16 07:14 DC Acetaminophen/ Hydrocodone Bitart 2 tab 2 tab PRN Q4HRS PRN 07/25/16 17:30 08/03/16 12:24 DC Acetaminophen/ Hydrocodone Bitart (Lortab 5/325) 1 tab PRN Q4HRS PRN 07/25/16 17:30 08/03/16 12:24 DC Albumin Human (Albuminar) 200 ml @ 200 mls/hr 1X PRN PRN 08/08/16 07:15 08/08/16 13:14 DC 08/08/16 09:43 200 MLS/HR Albumin Human (Plasmanate) 500 ml @ 125 mls/hr 1X ONCE 08/02/16 20:30 08/03/16 00:29 DC 08/02/16 20:37 125 MLS/HR Albuterol Sulfate (Ventolin Neb Soln) 2.5 mg RTQID 07/28/16 12:00 07/30/16 17:05 DC 07/30/16 08:46 2.5 MG Alprazolam (Xanax) 0.25 mg PRN Q8HRS PRN 08/05/16 14:45 08/09/16 07:46 0.25 MG Alteplase, Recombinant (Cathflo) 2 mg 1X ONCE 07/31/16 23:15 07/31/16 23:16 DC 07/31/16 23:34 2 MG Aminocaproic Acid (Amicar) 5,000 mg STK-MED ONCE 07/25/16 16:20 07/25/16 16:21 DC Amiodarone HCl (Cordarone) 400 mg BID 07/30/16 21:00 08/08/16 14:02 DC 08/08/16 10:54 400 MG Amiodarone HCl 150 mg/Dextrose 103 ml @ 618 mls/hr 1X ONCE 07/26/16 19:15 07/26/16 19:24 DC 07/26/16 19:25 618 MLS/HR Amiodarone HCl 400 mg 400 mg DAILY 08/09/16 09:00 08/09/16 07:45 400 MG Amiodarone HCl 900 mg/Dextrose 518 ml @ 0 mls/hr CONT PRN 07/26/16 19:15 07/27/16 12:11 DC Amiodarone HCl/ Dextrose (Cordarone) 259 ml @ 17.26 mls/ hr CONT PRN 07/26/16 06:45 07/31/16 15:33 DC 07/30/16 13:02 17.26 MLS/HR Aspirin (Aspirin) 300 mg DAILY 07/26/16 12:00 07/29/16 19:10 DC 07/28/16 07:55 300 MG Aspirin (Arti Aspirin) 325 mg DAILYWBKFT 07/30/16 08:00 08/09/16 07:46 325 MG Aspirin (Ecotrin) 325 mg DAILYWBKFT 07/26/16 08:00 07/29/16 09:59 DC 07/29/16 09:54 325 MG Atorvastatin Calcium (Lipitor) 40 mg QHS 07/21/16 21:00 08/08/16 21:13 40 MG Atropine Sulfate 0.5 mg PRN Q5MIN PRN 07/30/16 13:30 Bupivacaine HCl/ Epinephrine Bitart 50 ml 50 ml STK-MED ONCE 07/28/16 07:42 07/28/16 07:43 DC Calcium Chloride 1,000 mg STK-MED ONCE 07/28/16 09:09 07/28/16 09:10 DC Calcium Chloride/ Sodium Chloride (Iv Sodium Chloride 0.9% 100ml) 120 ml @ 240 mls/hr 1X ONCE 08/03/16 13:30 08/03/16 13:59 DC 08/03/16 13:30 240 MLS/HR Calcium Gluconate 1000 mg 1,000 mg 1X ONCE 08/03/16 12:15 08/03/16 12:16 DC Cefazolin Sodium/ Dextrose (Ancef 2gm Premix) 2 gm STK-MED ONCE 07/25/16 11:00 07/26/16 08:53 DC Cefazolin Sodium/ Sodium Chloride (Ancef/Iv Sodium Chloride 0.9% 500ml Bag) 500 ml @ 500 mls/hr 1X PERIOP ONCE 07/28/16 08:00 07/28/16 08:59 DC 07/28/16 09:25 Cellulose 1 each STK-MED ONCE 07/28/16 07:42 07/28/16 07:43 DC Chlorhexidine Gluconate (Peridex) 15 ml BID 07/26/16 10:30 08/09/16 07:46 15 ML Clevidipine (Cleviprex) 100 ml @ 0 mls/hr CONT PRN 07/25/16 13:45 07/26/16 11:29 DC Clonidine HCl 0.1 mg 0.1 mg 1X PRN PRN 08/08/16 07:15 08/09/16 07:14 DC Darbepoetin Nick (Aranesp) 60 mcg [id number] 08/07/16 21:00 08/07/16 21:04 60 MCG Dexamethasone Sodium Phosphate (Decadron) 20 mg STK-MED ONCE 08/05/16 13:05 08/05/16 13:06 DC Dexmedetomidine HCl/Sodium Chloride (Precedex/Iv Sodium Chloride 0.9% 50ml) 50 ml @ 0 mls/hr CONT PRN 07/30/16 13:30 08/08/16 14:02 DC 08/04/16 05:20 4.34 MLS/HR Dextrose (Dextrose 50%-Water Syringe) 12.5 gm PRN Q15MIN PRN 08/03/16 18:30 Dextrose 25 gm 25 gm 1X ONCE 07/26/16 01:00 07/26/16 01:18 DC 07/26/16 01:08 25 GM Digoxin (Lanoxin) 125 mcg DAILY 07/31/16 09:00 08/03/16 14:27 DC 08/02/16 08:56 125 MCG Digoxin 500 mcg 500 mcg 1X ONCE 07/30/16 12:15 07/30/16 12:19 DC 07/30/16 13:01 500 MCG Diphenhydramine HCl (Benadryl) 25 mg 1X PRN PRN 08/08/16 07:15 08/09/16 07:14 DC Diphenhydramine HCl 50 mg 50 mg STK-MED ONCE 07/25/16 16:56 07/25/16 16:57 DC Dobutamine HCl/ Dextrose 250 ml @ 12.1 mls/hr CONT PRN 07/29/16 13:30 08/08/16 13:39 DC 08/02/16 18:03 6.9 MLS/HR Docusate Sodium (Colace Solution) 100 mg PRN DAILY PRN 07/31/16 11:00 08/08/16 13:39 DC 08/01/16 08:40 100 MG Docusate Sodium (Colace) 100 mg DAILY 07/20/16 15:00 07/29/16 10:03 DC 07/29/16 09:54 100 MG Docusate Sodium 100 mg 100 mg DAILY 07/30/16 09:00 07/31/16 11:00 DC 07/31/16 07:59 100 MG Dopamine HCl/ Dextrose 250 ml @ 0 mls/hr CONT PRN PRN 07/25/16 17:30 07/26/16 11:41 DC Ephedrine Sulfate 50 mg 50 mg STK-MED ONCE 07/25/16 07:16 07/25/16 07:17 DC Epinephrine HCl (Epinephrine Syringe) 1 mg STK-MED ONCE 07/28/16 09:09 07/28/16 09:10 DC Epinephrine HCl/ Sodium Chloride (Adrenalin/Iv Sodium Chloride 0.9% 250ml) 254 ml @ 3.81 mls/hr 1X ONCE 07/28/16 10:00 07/29/16 19:10 DC Etomidate (Amidate) 20 mg STK-MED ONCE 07/25/16 06:08 07/25/16 06:09 DC Famotidine (Pepcid) 20 mg STK-MED ONCE 08/05/16 13:05 08/05/16 13:06 DC Fentanyl Citrate (Fentanyl 2ml Vial) 50 mcg PRN Q5MIN PRN 08/04/16 07:00 08/05/16 06:59 DC Fentanyl Citrate (Fentanyl 600 Mcg/30 ml AIR POLLUTION SPECIALIST) 30 ml @ 0 mls/hr CONT PRN PRN 08/02/16 13:30 08/08/16 13:39 DC 08/06/16 02:18 2.5 MLS/HR Furosemide (Lasix) 40 mg 1X ONCE 08/02/16 20:30 08/02/16 20:31 DC 08/03/16 00:16 40 MG Furosemide/Sodium Chloride (Lasix Drip/Iv Sodium Chloride 0.9% 100ml) 100 ml @ 5 mls/hr CONT PRN 07/28/16 15:30 07/31/16 13:31 DC 07/30/16 09:50 10 MLS/HR Haloperidol Lactate (Haldol) 5 mg PRN Q6HRS PRN 08/01/16 21:00 08/07/16 07:26 5 MG Haloperidol Lactate 10 mg 10 mg PRN Q6HRS PRN 08/01/16 23:45 08/07/16 21:04 10 MG Heparin Sodium (Porcine) 5,000 unit Q12HR 08/04/16 21:00 08/09/16 07:44 5,000 UNIT Heparin Sodium (Porcine) (Heparin Sodium) 2,500 unit 1X ONCE 08/03/16 14:45 08/03/16 14:46 DC 08/03/16 16:16 2,500 UNIT Heparin Sodium (Porcine) 93456 unit/Dextrose 512.5 ml @ 0 mls/hr Q0M ONCE 07/26/16 18:30 07/26/16 18:31 DC 07/26/16 19:40 1 MLS/HR Heparin Sodium (Porcine) 81981 unit/Lactated Ringer's 1,020 ml @ 1,020 mls/hr 1X PERIOP ONCE 07/25/16 06:00 07/25/16 06:59 DC 07/25/16 08:46 Heparin Sodium (Porcine) 69916 unit 30,000 unit STK-MED ONCE 07/25/16 13:08 07/25/16 13:09 DC Heparin Sodium (Porcine)/Sodium Chloride (Heparin Sodium/ Iv Sodium Chloride 0.9% 500ml Bag) 505 ml @ 505 mls/hr 1X PERIOP ONCE 07/28/16 08:15 07/28/16 09:14 DC 07/28/16 10:19 Heparin Sodium/ Dextrose 500 ml @ 0 mls/hr CONT PRN 07/21/16 16:30 07/26/16 08:55 DC 07/24/16 01:40 0 MLS/HR Heparin Sodium/ Sodium Chloride 60 unit 1X ONCE 08/03/16 14:45 08/03/16 14:46 DC 08/03/16 16:17 60 UNIT Heparin Sodium/ Sodium Chloride 1000 unit 1,000 unit CONT PRN 07/28/16 14:45 08/08/16 13:39 DC 08/02/16 06:47 1,000 UNIT Hydralazine HCl (Apresoline) 10 mg PRN Q2HRS PRN 07/31/16 13:30 08/01/16 16:35 10 MG Hydromorphone HCl (Dilaudid) 0.5 mg PRN Q10MIN PRN 08/04/16 07:00 08/05/16 06:59 DC Ibuprofen (Motrin) 200 mg PRN Q6HRS PRN 07/30/16 19:45 08/01/16 12:22 DC Info (PHARMACY MONITORING -- do not chart) 1 each PRN DAILY PRN 08/08/16 07:15 Info 1 each 1 each PRN DAILY PRN 08/05/16 12:30 08/08/16 07:15 DC Insulin Aspart (Novolog) 0-7 UNITS TIDWMEALS 08/03/16 19:00 08/07/16 16:37 3 UNITS Insulin Human Regular 150 unit/ Sodium Chloride 151.5 ml @ 0 mls/hr CONT PRN PRN 07/25/16 17:30 07/29/16 13:51 DC 07/29/16 03:03 2.7 MLS/HR Iodixanol (Visipaque 320) 200 ml STK-MED ONCE 07/20/16 14:00 07/21/16 08:26 DC Iohexol (Omnipaque 300 Mg/ml) 100 ml STK-MED ONCE 07/28/16 10:43 07/28/16 10:44 DC Iohexol 100 ml 100 ml STK-MED ONCE 07/25/16 15:28 07/25/16 15:29 DC 07/25/16 15:39 100 ML Ipratropium [place] (Atrovent) 0.5 mg RTQID 07/30/16 12:30 08/08/16 20:33 0.5 MG Isoflurane (Isoflurane) 90 ml STK-MED ONCE 07/25/16 15:13 07/25/16 15:14 DC Ketorolac Tromethamine (Toradol) 15 mg 1X ONCE 08/03/16 02:15 08/03/16 02:16 DC 08/03/16 02:03 15 MG Labetalol HCl (Normodyne) 10 mg PRN Q1HR PRN 08/08/16 07:15 08/09/16 07:14 DC Lactated Ringer's (Iv Lactated Ringers) 1,000 ml @ 0 mls/hr Q0M 08/04/16 07:00 08/04/16 18:59 DC Lidocaine HCl (Lidocaine HCl 2% Abboject) 100 mg STK-MED ONCE 4/10/17 16:20 07/25/16 16:21 DC Lidocaine HCl (Xylocaine-Mpf 1% Vial) 5 ml STK-MED ONCE 08/05/16 14:55 08/05/16 15:11 DC 08/05/16 14:55 3 ML Lidocaine/Sodium Bicarbonate (Buffered Lidocaine 1%) 3 ml 1X ONCE 08/03/16 14:45 08/03/16 14:46 DC 08/03/16 16:16 3 ML Linezolid (Zyvox Premix) 300 ml @ 300 mls/hr Q12HR 08/06/16 11:30 08/09/16 07:43 300 MLS/HR Lisinopril (Prinivil) 5 mg DAILY 07/20/16 15:00 07/20/16 17:21 DC 07/20/16 16:25 5 MG Lorazepam (Ativan) 2 mg STK-MED ONCE 07/28/16 08:30 07/29/16 08:16 DC Lorazepam 2 mg 2 mg STK-MED ONCE 07/28/16 08:29 07/28/16 08:30 DC Magnesium Sulfate 5 gm STK-MED ONCE 07/25/16 16:19 07/25/16 16:20 DC Magnesium Sulfate/ Dextrose 50 ml @ 25 mls/hr PRN DAILY PRN 08/03/16 12:30 Magnesium Sulfate/ Dextrose (Magnesium Sulfate PREMIX 1GM) 100 ml @ 100 mls/hr 1X ONCE 07/28/16 09:00 07/28/16 09:59 DC 07/28/16 13:09 100 MLS/HR Mannitol (Mannitol) 12.5 g STK-MED ONCE 07/25/16 16:20 07/25/16 16:21 DC Meperidine HCl (Demerol) 12.5 mg PRN Q15MIN PRN 07/25/16 17:30 07/29/16 13:38 DC Metoclopramide HCl (Reglan) 10 mg PRN Q6HRS PRN 07/25/16 17:30 08/08/16 13:39 DC 08/07/16 07:26 10 MG Metoprolol Tartrate (Lopressor) 12.5 mg BID 07/31/16 10:00 08/09/16 07:46 12.5 MG Metoprolol Tartrate 25 mg 25 mg 1X ONCE 07/22/16 06:00 4/7/17 06:02 DC Metoprolol Tartrate 5 mg 5 mg PRN Q2HR PRN 07/30/16 22:30 08/04/16 22:09 5 MG Micafungin Sodium 100 mg/Dextrose 100 ml @ 100 mls/hr Q24H 08/02/16 17:00 08/08/16 17:12 100 MLS/HR Midazolam HCl (Versed) 2 mg STK-MED ONCE 08/05/16 13:13 08/05/16 13:14 DC Midazolam HCl 5 mg 5 mg PRN Q30MIN PRN 07/25/16 18:15 07/25/16 18:39 DC Milrinone Lactate/ Dextrose (Primacor Premix) 100 ml @ 0 mls/hr CONT PRN 07/26/16 19:45 07/29/16 13:51 DC 07/26/16 20:03 12.043 MLS/HR Morphine Sulfate 1 mg 1 mg PRN Q10MIN PRN 08/04/16 07:00 08/05/16 06:59 DC Multi-Ingred Cream/Lotion/Oil/ Oint (Artificial Tears Eye Oint) 1 adri BID 07/26/16 21:00 08/09/16 07:46 1 ADRI Naloxone HCl 0.4 mg 0.4 mg PRN Q2MIN PRN 08/02/16 13:30 Nitroglycerin (Nitrostat) 0.4 mg PRN Q5MIN PRN 07/20/16 14:45 07/26/16 11:41 DC 07/25/16 04:55 0.4 MG Nitroglycerin 0.4 mg 0.4 mg PRN Q5MIN PRN 07/23/16 12:00 UNV Nitroglycerin/ Dextrose (Nitroglycerin Drip) 250 ml @ As Directed STK-MED ONCE 07/25/16 07:16 07/25/16 07:17 DC Norepinephrine Bitartrate 8 mg/ Sodium Chloride 258 ml @ 1.93 mls/hr CONT PRN 07/26/16 19:15 08/03/16 11:12 16.9 MLS/HR Norepinephrine Bitartrate/Sodium Chloride (Levophed Vial/ Iv Sodium Chloride 0.9% 250ml) 258 ml @ 1.93 mls/hr 1X ONCE 07/25/16 16:00 07/27/16 08:04 DC 07/25/16 18:53 15.48 MLS/HR Ondansetron HCl (Zofran) 4 mg STK-MED ONCE 08/05/16 13:05 08/05/16 13:06 DC Pantoprazole Sodium 40 mg 40 mg DAILYAC 08/06/16 07:30 08/09/16 07:44 40 MG Papaverine HCl 60 mg STK-MED ONCE 07/25/16 07:07 07/25/16 07:08 DC 07/25/16 08:46 60 MG Phenylephrine HCl 1 mg STK-MED ONCE 07/28/16 09:54 07/28/16 09:55 DC Phenylephrine HCl (-Synephrine Inj) 10 mg STK-MED ONCE 07/25/16 06:08 07/25/16 06:09 DC Piperacillin Sod/ Tazobactam Sod 3.375 gm/Sodium Chloride 50 ml @ 100 mls/hr Q6HRS 08/02/16 12:00 08/02/16 15:43 DC 08/02/16 13:17 100 MLS/HR Piperacillin Sod/ Tazobactam Sod 4.5 gm/Sodium Chloride 100 ml @ 200 mls/hr Q6HRS 08/02/16 18:00 08/03/16 14:02 DC 08/03/16 12:00 200 MLS/HR Piperacillin Sod/ Tazobactam Sod/ Sodium Chloride (Zosyn/Iv Sodium Chloride 0.9% 50ml) 50 ml @ 100 mls/hr Q8HRS 08/08/16 22:00 08/09/16 06:07 100 MLS/HR Potassium Chloride 70 meq/ Sodium Bicarbonate 12.5 meq/Lidocaine HCl 24 ml/Parenteral Electrolytes 571.5 ml @ 571.5 mls/ hr 1X PERIOP ONCE 07/25/16 06:00 07/25/16 06:59 DC Potassium Chloride/Sodium Bicarbonate/ Parenteral Electrolytes (Isolyte S) 520 ml @ 520 mls/hr 1X PERIOP ONCE 07/25/16 06:00 07/25/16 06:59 DC Potassium Chloride (KCl Premix 20meq) 50 ml @ 50 mls/hr Q1H 07/31/16 07:00 07/31/16 08:59 DC 07/31/16 09:04 50 MLS/HR Procainamide HCl/ Dextrose (Pronestyl) 520 ml @ 15.6 mls/hr CONT PRN 07/25/16 14:30 07/28/16 15:22 DC Prochlorperazine Edisylate (Compazine) 5 mg PACU PRN PRN 07/25/16 07:00 07/26/16 06:59 DC Prochlorperazine Edisylate 5 mg 5 mg PACU PRN PRN 07/27/16 07:00 07/28/16 06:59 DC Propofol (Diprivan) 20 ml @ As Directed STK-MED ONCE 08/05/16 13:01 08/05/16 13:02 DC Protamine Sulfate 50 mg STK-MED ONCE 07/25/16 16:34 07/25/16 16:35 DC Rocuronium [place] 50 mg 50 mg STK-MED ONCE 07/28/16 07:27 07/28/16 07:28 DC Rocuronium [place] (Zemuron) 50 mg STK-MED ONCE 08/05/16 13:01 08/05/16 13:02 DC Sevelamer Carbonate (Renvela) 2.4 gm BID 08/05/16 10:00 08/09/16 07:46 2.4 GM Sevoflurane (Ultane) 60 ml STK-MED ONCE 08/05/16 14:29 08/05/16 14:30 DC Sevoflurane 60 ml 60 ml STK-MED ONCE 07/28/16 09:54 07/28/16 09:55 DC Sodium Bicarbonate 150 meq/Dextrose 1,150 ml @ 100 mls/hr [id number] 08/03/16 13:30 08/04/16 08:31 DC 08/04/16 04:31 100 MLS/HR Sodium Bicarbonate 150 meq/Dextrose/ Sodium Chloride 1,150 ml @ 100 mls/hr [id number] PRN 08/03/16 12:30 08/03/16 13:03 DC Sodium Bicarbonate 50 meq 50 meq STK-MED ONCE 07/25/16 14:04 07/25/16 14:05 DC Sodium Bicarbonate 50 meq 1X ONCE 08/03/16 10:15 08/03/16 10:20 DC 08/03/16 10:44 50 MEQ Sodium Chloride (Iv Sodium Chloride 0.9% 500ml Bag) 500 ml @ 500 mls/hr 1X ONCE 08/02/16 12:45 08/02/16 13:44 DC 08/02/16 12:39 500 MLS/HR Sodium Chloride (Iv Sodium Chloride 0.9% 1000ml Bag) 1,000 ml @ 400 mls/hr Q2H30M PRN 08/08/16 07:01 08/08/16 19:00 DC Sodium Chloride (Normal Saline Flush) 10 ml 1X PRN PRN 08/05/16 12:30 08/06/16 12:29 DC Sodium Chloride (Sodium Chloride) 50 ml STK-MED ONCE 08/05/16 13:58 08/05/16 13:59 DC Sodium Chloride 3 ml 3 ml PRN Q12HR PRN 07/25/16 17:30 07/29/16 13:38 DC Sufentanil Citrate (Sufenta) 100 mcg STK-MED ONCE 07/25/16 08:53 07/25/16 08:54 DC Sulfur Hexafluoride Microspheres (Lumason) 25 mg 1X ONCE 07/26/16 11:45 07/26/16 11:50 DC 07/26/16 11:45 25 MG Vancomycin HCl (Vanco) 10 gm 1X ONCE 07/27/16 12:30 07/27/16 12:31 DC 07/27/16 14:37 10 GM Vancomycin HCl 1.25 gm/Sodium Chloride 250 ml @ 167 mls/hr Q12H 08/03/16 00:00 08/03/16 11:07 DC 08/03/16 00:33 167 MLS/HR Vancomycin HCl 1 each 1 each 1X ONCE 08/03/16 23:30 08/03/16 23:30 DC Vancomycin HCl 2 gm/Sodium Chloride 500 ml @ 250 mls/hr 1X ONCE 08/02/16 12:00 08/02/16 13:59 DC 08/02/16 11:52 250 MLS/HR Vancomycin HCl/ Sodium Chloride (Iv Sodium Chloride 0.9% 250ml) 250 ml @ 250 mls/hr 1X ONCE 07/25/16 18:15 07/25/16 19:14 DC 07/25/16 20:56 250 MLS/HR Vasopressin (Vasostrict) 20 unit STK-MED ONCE 08/05/16 13:58 08/05/16 13:59 DC Vasopressin/ Dextrose (Vasostrict) 102 ml @ 6 mls/hr CONT PRN 07/25/16 17:15 08/08/16 14:02 DC 08/03/16 18:28 6 MLS/HR Vecuronium [place] 100 mg/ Dextrose 100 ml @ 0 mls/hr 1X ONCE 07/25/16 18:15 07/25/16 18:17 DC 07/25/16 19:43 8 MLS/HR Vecuronium [place]/Dextrose (Norcuron) 100 ml @ 0 mls/hr CONT PRN 07/26/16 00:45 07/29/16 13:38 DC 07/26/16 01:07 8 MLS/HR Vecuronium [place] (Norcuron Bolus) 10 mg 1X STAT 08/02/16 13:17 08/02/16 13:23 DC 08/02/16 13:34 10 MG Zolpidem Tartrate (Ambien) 5 mg PRN QHS PRN 07/21/16 15:30 07/29/16 13:38 DC Zolpidem Tartrate 5 mg 5 mg HS 08/07/16 21:00 08/08/16 21:15 5 MG Lab Laboratory Tests Test 08/08/16 09:00 08/08/16 10:52 08/08/16 17:15 08/09/16 00:13 O2 Saturation 98% (92-99) Arterial Blood pH 7.50 (7.35-7.45) Arterial Blood pCO2 at Patient Temp 30mmHg (35-46) Arterial Blood pO2 at Patient Temp 115mmHg (75-108) Arterial Blood HCO3 23mmol/L (21-28) Arterial Blood Base Excess 0mmol/L (-3-3) FiO2 40 Glucose (Fingerstick) 130mg/dL (70-99) 134mg/dL (70-99) 141mg/dL (70-99) Test 08/09/16 05:00 08/09/16 06:01 08/09/16 06:09 White Blood Count 6.0x10^3/uL (4.0-11.0) Red Blood Count 2.37x10^6/uL (4.30-5.70) Hemoglobin 7.6g/dL (13.0-17.5) Hematocrit 22.6% (39.0-53.0) Mean Corpuscular Volume 96fL (79-100) Mean Corpuscular Hemoglobin 32pg (25-35) Mean Corpuscular Hemoglobin Concent 34g/dL (31-37) Red Cell Distribution Width 17.6% (11.5-14.5) Platelet Count 123x10^3/uL (140-400) Neutrophils (%) (Auto) 87% (31-73) Lymphocytes (%) (Auto) 6% (24-48) Monocytes (%) (Auto) 6% (0-9) Eosinophils (%) (Auto) 1% (0-3) Basophils (%) (Auto) 0% (0-3) Neutrophils # (Auto) 5.2x10^3uL (1.8-7.7) Lymphocytes # (Auto) 0.4x10^3/uL (1.0-4.8) Monocytes # (Auto) 0.4x10^3/uL (0.0-1.1) Eosinophils # (Auto) 0.0x10^3/uL (0.0-0.7) Basophils # (Auto) 0.0x10^3/uL (0.0-0.2) Glucose (Fingerstick) 118mg/dL (70-99) Sodium Level 138mmol/L (136-145) Potassium Level 4.4mmol/L (3.5-5.1) Chloride Level 98mmol/L (98-107) Carbon Dioxide Level 26mmol/L (21-32) Anion Gap 14 (6-14) Blood Urea Nitrogen 93mg/dL (8-26) Creatinine 3.9mg/dL (0.7-1.3) Estimated GFR (Cockcroft-Gault) 16.0 BUN/Creatinine Ratio 24 (6-20) Glucose Level 126mg/dL (70-99) Calcium Level 8.0mg/dL (8.5-10.1) Phosphorus Level 6.6mg/dL (2.6-4.7) Total Bilirubin 2.3mg/dL (0.2-1.0) Aspartate Amino Transf (AST/SGOT) 176U/L (15-37) Alanine Aminotransferase (ALT/SGPT) 157U/L (16-63) Alkaline Phosphatase 104U/L (46-116) Total Protein 5.4g/dL (6.4-8.2) Albumin 2.2g/dL (3.4-5.0) Albumin/Globulin Ratio 0.7 (1.0-1.7) ELIZABETH LOPEZ MD Aug 09, 2016 08:02
[2016-08-09] MEDS: IPRATROPIUM BROMIDE 0.5 MG/2.5 ML NEBU. NEB SCH ×4 (08:17→18:59)
[2016-08-09] MEDS: CALCIUM CARBONATE 500 MG TAB.CHEW PO SCH ×3 (09:00→21:40)
[2016-08-09 09:02] LABS: INR 1.4 (0.8-1.1); PROTHROMBIN TIME PATIENT 16.6 SEC (11.7-14.0)
--- NOTE | 2016-08-09 09:40 | PDOC ---
G I PROGRESS NOTE Subjective Awake, up in chair. Unclearly orienting. Objective Staff report occasional "oozing" of minor blood from various sites, including PEG site. Physical Exam Lungs clear. RRR Abdomen soft. PEG site looks good. Tension appropriate. Review of Relevant I have reviewed the following items leonidas (where applicable) has been applied. Labs Laboratory Tests Test 08/07/16 11:35 08/07/16 12:05 08/07/16 16:36 08/07/16 18:29 Glucose (Fingerstick) 184mg/dL (70-99) 170mg/dL (70-99) O2 Saturation 98% (92-99) Arterial Blood pH 7.42 (7.35-7.45) Arterial Blood pCO2 at Patient Temp 34mmHg (35-46) Arterial Blood pO2 at Patient Temp 128mmHg (75-108) Arterial Blood HCO3 21mmol/L (21-28) Arterial Blood Base Excess -3mmol/L (-3-3) FiO2 40 t tube Clostridium difficile Toxin (PCR) Negative (Negative) Test 08/08/16 00:17 08/08/16 05:00 08/08/16 06:20 08/08/16 09:00 Glucose (Fingerstick) 163mg/dL (70-99) Vitamin B12 Level 895pg/mL (247-911) White Blood Count 5.2x10^3/uL (4.0-11.0) Red Blood Count 2.49x10^6/uL (4.30-5.70) Hemoglobin 7.9g/dL (13.0-17.5) Hematocrit 24.1% (39.0-53.0) Mean Corpuscular Volume 97fL (79-100) Mean Corpuscular Hemoglobin 32pg (25-35) Mean Corpuscular Hemoglobin Concent 33g/dL (31-37) Red Cell Distribution Width 16.6% (11.5-14.5) Platelet Count 120x10^3/uL (140-400) Neutrophils (%) (Auto) 85% (31-73) Lymphocytes (%) (Auto) 6% (24-48) Monocytes (%) (Auto) 8% (0-9) Eosinophils (%) (Auto) 0% (0-3) Basophils (%) (Auto) 0% (0-3) Neutrophils # (Auto) 4.4x10^3uL (1.8-7.7) Lymphocytes # (Auto) 0.3x10^3/uL (1.0-4.8) Monocytes # (Auto) 0.4x10^3/uL (0.0-1.1) Eosinophils # (Auto) 0.0x10^3/uL (0.0-0.7) Basophils # (Auto) 0.0x10^3/uL (0.0-0.2) Sodium Level 142mmol/L (136-145) Potassium Level 4.2mmol/L (3.5-5.1) Chloride Level 100mmol/L (98-107) Carbon Dioxide Level 24mmol/L (21-32) Anion Gap 18 (6-14) Blood Urea Nitrogen 120mg/dL (8-26) Creatinine 4.7mg/dL (0.7-1.3) Estimated GFR (Cockcroft-Gault) 12.9 Glucose Level 154mg/dL (70-99) Calcium Level 7.6mg/dL (8.5-10.1) Phosphorus Level 6.1mg/dL (2.6-4.7) Albumin 2.2g/dL (3.4-5.0) O2 Saturation 98% (92-99) Arterial Blood pH 7.50 (7.35-7.45) Arterial Blood pCO2 at Patient Temp 30mmHg (35-46) Arterial Blood pO2 at Patient Temp 115mmHg (75-108) Arterial Blood HCO3 23mmol/L (21-28) Arterial Blood Base Excess 0mmol/L (-3-3) FiO2 40 Test 08/08/16 10:52 08/08/16 17:15 08/09/16 00:13 08/09/16 05:00 Glucose (Fingerstick) 130mg/dL (70-99) 134mg/dL (70-99) 141mg/dL (70-99) White Blood Count 6.0x10^3/uL (4.0-11.0) Red Blood Count 2.37x10^6/uL (4.30-5.70) Hemoglobin 7.6g/dL (13.0-17.5) Hematocrit 22.6% (39.0-53.0) Mean Corpuscular Volume 96fL (79-100) Mean Corpuscular Hemoglobin 32pg (25-35) Mean Corpuscular Hemoglobin Concent 34g/dL (31-37) Red Cell Distribution Width 17.6% (11.5-14.5) Platelet Count 123x10^3/uL (140-400) Neutrophils (%) (Auto) 87% (31-73) Lymphocytes (%) (Auto) 6% (24-48) Monocytes (%) (Auto) 6% (0-9) Eosinophils (%) (Auto) 1% (0-3) Basophils (%) (Auto) 0% (0-3) Neutrophils # (Auto) 5.2x10^3uL (1.8-7.7) Lymphocytes # (Auto) 0.4x10^3/uL (1.0-4.8) Monocytes # (Auto) 0.4x10^3/uL (0.0-1.1) Eosinophils # (Auto) 0.0x10^3/uL (0.0-0.7) Basophils # (Auto) 0.0x10^3/uL (0.0-0.2) Test 08/09/16 06:01 08/09/16 06:09 08/09/16 08:30 Glucose (Fingerstick) 118mg/dL (70-99) Sodium Level 138mmol/L (136-145) Potassium Level 4.4mmol/L (3.5-5.1) Chloride Level 98mmol/L (98-107) Carbon Dioxide Level 26mmol/L (21-32) Anion Gap 14 (6-14) Blood Urea Nitrogen 93mg/dL (8-26) Creatinine 3.9mg/dL (0.7-1.3) Estimated GFR (Cockcroft-Gault) 16.0 BUN/Creatinine Ratio 24 (6-20) Glucose Level 126mg/dL (70-99) Calcium Level 8.0mg/dL (8.5-10.1) Phosphorus Level 6.6mg/dL (2.6-4.7) Total Bilirubin 2.3mg/dL (0.2-1.0) Aspartate Amino Transf (AST/SGOT) 176U/L (15-37) Alanine Aminotransferase (ALT/SGPT) 157U/L (16-63) Alkaline Phosphatase 104U/L (46-116) Total Protein 5.4g/dL (6.4-8.2) Albumin 2.2g/dL (3.4-5.0) Albumin/Globulin Ratio 0.7 (1.0-1.7) Prothrombin Time 16.6SEC (11.7-14.0) Prothromb Time International Ratio 1.4 (0.8-1.1) Laboratory Tests Test 08/08/16 10:52 08/08/16 17:15 08/09/16 00:13 08/09/16 05:00 Glucose (Fingerstick) 130mg/dL (70-99) 134mg/dL (70-99) 141mg/dL (70-99) White Blood Count 6.0x10^3/uL (4.0-11.0) Red Blood Count 2.37x10^6/uL (4.30-5.70) Hemoglobin 7.6g/dL (13.0-17.5) Hematocrit 22.6% (39.0-53.0) Mean Corpuscular Volume 96fL (79-100) Mean Corpuscular Hemoglobin 32pg (25-35) Mean Corpuscular Hemoglobin Concent 34g/dL (31-37) Red Cell Distribution Width 17.6% (11.5-14.5) Platelet Count 123x10^3/uL (140-400) Neutrophils (%) (Auto) 87% (31-73) Lymphocytes (%) (Auto) 6% (24-48) Monocytes (%) (Auto) 6% (0-9) Eosinophils (%) (Auto) 1% (0-3) Basophils (%) (Auto) 0% (0-3) Neutrophils # (Auto) 5.2x10^3uL (1.8-7.7) Lymphocytes # (Auto) 0.4x10^3/uL (1.0-4.8) Monocytes # (Auto) 0.4x10^3/uL (0.0-1.1) Eosinophils # (Auto) 0.0x10^3/uL (0.0-0.7) Basophils # (Auto) 0.0x10^3/uL (0.0-0.2) Test 08/09/16 06:01 08/09/16 06:09 08/09/16 08:30 Glucose (Fingerstick) 118mg/dL (70-99) Sodium Level 138mmol/L (136-145) Potassium Level 4.4mmol/L (3.5-5.1) Chloride Level 98mmol/L (98-107) Carbon Dioxide Level 26mmol/L (21-32) Anion Gap 14 (6-14) Blood Urea Nitrogen 93mg/dL (8-26) Creatinine 3.9mg/dL (0.7-1.3) Estimated GFR (Cockcroft-Gault) 16.0 BUN/Creatinine Ratio 24 (6-20) Glucose Level 126mg/dL (70-99) Calcium Level 8.0mg/dL (8.5-10.1) Phosphorus Level 6.6mg/dL (2.6-4.7) Total Bilirubin 2.3mg/dL (0.2-1.0) Aspartate Amino Transf (AST/SGOT) 176U/L (15-37) Alanine Aminotransferase (ALT/SGPT) 157U/L (16-63) Alkaline Phosphatase 104U/L (46-116) Total Protein 5.4g/dL (6.4-8.2) Albumin 2.2g/dL (3.4-5.0) Albumin/Globulin Ratio 0.7 (1.0-1.7) Prothrombin Time 16.6SEC (11.7-14.0) Prothromb Time International Ratio 1.4 (0.8-1.1) Microbiology 08/02/16 Blood Culture - Final, Complete NO GROWTH AFTER 5 DAYS 08/03/16 Sputum Culture - Final, Complete 08/03/16 Sputum Result 1 - Final, Complete 08/03/16 Sputum Result 2 - Final, Complete 08/03/16 Antimicrobic Susceptibility - Final, Complete 08/02/16 Urine Culture - Final, Complete 08/02/16 Urine Culture Result 1 (MILEY) - Final, Complete 08/03/16 Gram Stain - Final, Complete Medications Current Medications Nitroglycerin 0.4 mg 0.4 mg PRN Q5MIN PRN SL CP RATING > 1/10; Start 07/20/16 at 09:45; Stop 07/20/16 at 15:05; Status DC Nitroglycerin/ Dextrose (Nitroglycerin Drip) 250 ml @ 3 mls/hr 1X ONCE IV Last administered on 07/20/16 10:02; Start 07/20/16 at 10:30; Stop 07/23/16 at 21: 49; Status DC Morphine Sulfate 2 mg PRN Q15MIN PRN IV/SQ PAIN GREATER THAN 3/10; Start at 09:45; Stop 07/21/16 at 09:44; Status DC Ondansetron HCl (Zofran) 4 mg PRN Q8HRS PRN IV NAUSEA/VOMITING; Start 07/20/16 at 12:30; Stop 07/20/16 at 13:36; Status DC Morphine Sulfate 2 mg 2 mg PRN Q2HR PRN IV PAIN; Start 07/20/16 at 12:30; Stop 07/21/16 at 12:29; Status DC Heparin Sodium/ Dextrose 500 ml @ 0 mls/hr CONT PRN IV . Last administered on 10:32; Start 07/20/16 at 13:00; Stop 07/21/16 at 14:50; Status DC Metoprolol Tartrate (Lopressor) 5 mg Q6HRS IVP ; Start 07/20/16 at 13:00; Stop at 14:53; Status DC Aspirin (Ecotrin) 325 mg [id number] PO Last administered on 07/21/16 08:11; Start 07/20/16 at 13:00; Stop 07/21/16 at 17:20; Status DC Ondansetron HCl (Zofran) 4 mg PRN Q6HRS PRN IV NAUSEA/VOMITING; Start 07/20/16 at 13:35; Stop 07/26/16 at 11:41; Status DC Acetaminophen (Tylenol) 500 mg PRN Q6HRS PRN PO MILD PAIN / TEMP Last administered on 07/29/16 09:55; Start 07/20/16 at 13:45; Stop 07/29/16 at 13:38 ; Status DC Docusate Sodium (Colace) 100 mg DAILY PO Last administered on 07/29/16 09:54; Start 07/20/16 at 15:00; Stop 07/29/16 at 10:03; Status DC Iohexol 100 ml 100 ml STK-MED ONCE .ROUTE ; Start 07/20/16 at 12:40; Stop at 13:44; Status DC Heparin Sodium/ Sodium Chloride 1,000 ml @ As Directed STK-MED ONCE .ROUTE ; Start 07/20/16 at 12:41; Stop 07/20/16 at 13:44; Status DC Lidocaine HCl 20 ml STK-MED ONCE .ROUTE ; Start 07/20/16 at 12:41; Stop 07/20/16 at 13:44; Status DC Fentanyl Citrate (Fentanyl 2ml Vial) 100 mcg STK-MED ONCE .ROUTE ; Start at 13:42; Stop 07/20/16 at 13:45; Status DC Midazolam HCl (Versed) 2 mg STK-MED ONCE .ROUTE ; Start 07/20/16 at 13:42; Stop 07/20/16 at 13:45; Status DC Heparin Sodium/ Sodium Chloride 1,000 unit 1X ONCE IART Last administered on 14:29; Start 07/20/16 at 14:00; Stop 07/20/16 at 14:01; Status DC Heparin Sodium/ Sodium Chloride 1,000 unit 1X ONCE IART Last administered on 14:29; Start 07/20/16 at 14:00; Stop 07/20/16 at 14:01; Status DC Midazolam HCl (Versed) 2 mg 1X ONCE IV Last administered on 07/20/16 14:28; Start 07/20/16 at 14:00; Stop 07/20/16 at 14:01; Status DC Fentanyl Citrate (Fentanyl 2ml Vial) 100 mcg 1X ONCE IV Last administered on 14:28; Start 07/20/16 at 14:00; Stop 07/20/16 at 14:01; Status DC Iohexol (Omnipaque 300 Mg/ml) 100 ml 1X ONCE IART Last administered on 14:29; Start 07/20/16 at 14:00; Stop 07/20/16 at 14:01; Status DC Lidocaine HCl 20 ml 1X ONCE IJ Last administered on 07/20/16 14:29; Start 07/20 at 14:00; Stop 07/20/16 at 14:01; Status DC Midazolam HCl (Versed) 2 mg STK-MED ONCE .ROUTE ; Start 07/20/16 at 14:15; Stop 07/20/16 at 14:16; Status DC Sodium Chloride 3 ml 3 ml QSHIFT PRN IV AFTER MEDS AND BLOOD DRAWS; Start at 14:45; Stop 07/29/16 at 13:51; Status DC Sodium Chloride (Iv Sodium Chloride 0.9% 1000ml Bag) 1,000 ml @ 60 mls/hr [id number] IV Last administered on 07/20/16 14:44; Start 07/20/16 at 14:44; Stop at 00:43; Status DC Metoprolol Tartrate (Lopressor) 12.5 mg BID PO ; Start 07/20/16 at 21:00; Stop at 21:00; Status DC Lisinopril (Prinivil) 5 mg DAILY PO Last administered on 07/20/16 16:25; Start 07/20/16 at 15:00; Stop 07/20/16 at 17:21; Status DC Atorvastatin Calcium (Lipitor) 20 mg QHS PO Last administered on 07/20/16 20:33 ; Start 07/20/16 at 21:00; Stop 07/21/16 at 08:11; Status DC Nitroglycerin (Nitrostat) 0.4 mg PRN Q5MIN PRN SL CHEST PAIN Last administered on 07/25/16 04:55; Start 07/20/16 at 14:45; Stop 07/26/16 at 11:41; Status DC Hydralazine HCl (Apresoline) 10 mg PRN Q4HRS PRN IVP ELEVATED BP, SEE COMMENTS Last administered on 07/31/16 10:58; Start 07/20/16 at 17:15; Stop 07/31/16 at 13:31; Status DC Metoprolol Tartrate (Lopressor) 50 mg BID PO Last administered on 07/22/16 08: 31; Start 07/20/16 at 21:00; Stop 07/22/16 at 19:03; Status DC Alprazolam (Xanax) 0.25 mg PRN Q8HRS PRN PO ANXIETY / AGITATION Last administered on 07/24/16 21:34; Start 07/20/16 at 17:30; Stop 07/29/16 at 13:38; Status DC Heparin Sodium (Porcine) 2050 unit 2,050 unit PRN Q6HRS PRN IV FOR UFH LEVEL LESS THAN 0.2 Last administered on 07/21/16 04:24; Start 07/20/16 at 19:45; Stop 07/26/16 at 08:55; Status DC Heparin Sodium/ Dextrose 500 ml @ 19.4 mls/hr CONT PRN IV SEE I/O RECORD; Start 07/20/16 at 19:45; Stop 07/21/16 at 16:24; Status DC Heparin Sodium (Porcine) (Heparin Sodium) 2,050 unit PRN Q6HRS PRN IV FOR UFH LEVEL LESS THAN 0.2; Start 07/20/16 at 19:45; Status UNV Atorvastatin Calcium (Lipitor) 40 mg QHS PO Last administered on 08/08/16 21: 13; Start 07/21/16 at 21:00 Iodixanol (Visipaque 320) 200 ml STK-MED ONCE .ROUTE ; Start 07/20/16 at 14:00; Stop 07/21/16 at 08:26; Status DC Zolpidem Tartrate (Ambien) 5 mg PRN QHS PRN PO INSOMNIA, MAY REPEAT IN 1HR; Start 07/21/16 at 15:30; Stop 07/29/16 at 13:38; Status DC Metoprolol Tartrate 25 mg 25 mg 1X ONCE PO ; Start 07/22/16 at 06:00; Stop at 06:02; Status DC Cefazolin Sodium/ Dextrose 50 ml @ 100 mls/hr 1X ONCE IV ; Start 07/22/16 at 06 :00; Stop 07/22/16 at 06:29; Status DC Heparin Sodium/ Dextrose 500 ml @ 0 mls/hr CONT PRN IV SEE I/O RECORD Last administered on 07/24/16 01:40; Start 07/21/16 at 16:30; Stop 07/26/16 at 08:55; Status DC Lidocaine HCl 2 ml 2 ml 1X PRN PRN ID IV START; Start 07/25/16 at 06:00; Stop 07/26/16 at 05:59; Status Cancel Lactated Ringer's (Iv Lactated Ringers) 1,000 ml @ 0 mls/hr Q0M IV Last administered on 07/25/16t 07:30; Start 07/25/16 at 06:00; Stop 07/25/16 at 17:59 ; Status DC Fentanyl Citrate (Fentanyl 2ml Vial) 25 mcg PRN Q5MIN PRN IV Acute Pain; Start 07/22/16 at 09:15; Stop 07/23/16 at 09:14; Status DC Morphine Sulfate 2 mg PRN Q10MIN PRN IV Mild Pain; Start 07/22/16 at 09:15; Stop 07/23/16 at 09:14; Status DC Hydromorphone HCl (Dilaudid) 0.4 mg PRN Q10MIN PRN IV Moderate to severe pain; Start 07/22/16 at 09:15; Stop 07/23/16 at 09:14; Status DC Ondansetron HCl (Zofran) 4 mg PRN Q6HRS PRN IV Nausea, 1st Choice; Start at 09:15; Stop 07/23/16 at 09:14; Status DC Prochlorperazine Edisylate (Compazine) 5 mg PRN Q6HRS PRN IV Nausea/Vomiting, 2nd Choice; Start 07/22/16 at 09:15; Stop 07/23/16 at 09:14; Status DC Ondansetron HCl (Zofran) 4 mg PRN Q6HRS PRN IV NAUSEA/VOMITING; Start 07/25/16 at 07:00; Stop 07/26/16 at 06:59; Status DC Fentanyl Citrate (Fentanyl 2ml Vial) 25 mcg PRN Q5MIN PRN IV MILD PAIN; Start 07/25/16 at 07:00; Stop 07/26/16 at 06:59; Status DC Fentanyl Citrate (Fentanyl 2ml Vial) 50 mcg PRN Q5MIN PRN IV MODERATE PAIN; Start 07/25/16 at 07:00; Stop 07/26/16 at 06:59; Status DC Morphine Sulfate 1 mg 1 mg PRN Q10MIN PRN IV SEVERE PAIN; Start 07/25/16 at 07: 00; Stop 07/25/16 at 20:28; Status DC Lactated Ringer's (Iv Lactated Ringers) 1,000 ml @ 0 mls/hr Q0M IV ; Start 01/31 at 07:00; Stop 07/25/16 at 18:59; Status Cancel Lidocaine HCl 2 ml PRN 1X PRN ID PRIOR TO IV START Last administered on 07:16; Start 07/25/16 at 07:00; Stop 07/26/16 at 06:59; Status DC Hydromorphone HCl (Dilaudid) 0.5 mg PRN Q10MIN PRN IV SEV PAIN, Second choice; Start 07/25/16 at 07:00; Stop 07/26/16 at 06:59; Status DC Prochlorperazine Edisylate 5 mg 5 mg PACU PRN PRN IV NAUSEA, MRX1; Start at 07:00; Stop 07/26/16 at 06:59; Status DC Cefazolin Sodium/ Dextrose (Ancef 2gm Premix) 50 ml @ 100 mls/hr 1X ONCE IV Last administered on 07/25/16 08:12; Start 07/25/16 at 06:00; Stop 07/25/16 at 06:29; Status DC Metoprolol Tartrate (Lopressor) 25 mg 1X ONCE PO ; Start 07/25/16 at 06:00; Stop 07/25/16 at 06:00; Status DC Metoprolol Tartrate (Lopressor) 2.5 mg 1X ONCE IVP Last administered on 16:30; Start 07/22/16 at 16:30; Stop 07/22/16 at 16:31; Status DC Digoxin (Lanoxin) 250 mcg 1X ONCE IV ; Start 07/22/16 at 18:30; Stop 07/22/16 at 18:42; Status DC Digoxin (Lanoxin) 500 mcg 1X ONCE IV Last administered on 07/22/16 18:47; Start 07/22/16 at 18:45; Stop 07/22/16 at 18:46; Status DC Metoprolol Tartrate (Lopressor) 75 mg BID PO Last administered on 07/24/16 21: 30; Start 07/22/16 at 21:00; Stop 07/25/16 at 13:12; Status DC Nitroglycerin 0.4 mg 0.4 mg PRN Q5MIN PRN SL CHEST PAIN; Start 07/23/16 at 12:00 ; Status UNV Heparin Sodium (Porcine) 39378 unit/Lactated Ringer's 1,020 ml @ 1,020 mls/hr 1X PERIOP ONCE IRR Last administered on 07/25/16 08:46; Start 07/25/16 at 06: 00; Stop 07/25/16 at 06:59; Status DC Potassium Chloride 70 meq/ Sodium Bicarbonate 12.5 meq/Lidocaine HCl 24 ml/ Parenteral Electrolytes 571.5 ml @ 571.5 mls/ hr 1X PERIOP ONCE IRR ; Start at 06:00; Stop 07/25/16 at 06:59; Status DC Potassium Chloride/Sodium Bicarbonate/ Parenteral Electrolytes (Isolyte S) 520 ml @ 520 mls/hr 1X PERIOP ONCE IRR ; Start 07/25/16 at 06:00; Stop 07/25/16 at 06:59; Status DC Etomidate (Amidate) 20 mg STK-MED ONCE IV ; Start 07/25/16 at 06:08; Stop at 06:09; Status DC Phenylephrine HCl (-Synephrine Inj) 10 mg STK-MED ONCE .ROUTE ; Start at 06:08; Stop 07/25/16 at 06:09; Status DC Aminocaproic Acid (Amicar) 5,000 mg STK-MED ONCE IV ; Start 07/25/16 at 06:08; Stop 07/25/16 at 06:09; Status DC Heparin Sodium (Porcine) (Heparin Sodium) 10,000 unit STK-MED ONCE .ROUTE ; Start 07/25/16 at 06:10; Stop 07/25/16 at 06:11; Status DC Rocuronium [place] (Zemuron) 100 mg STK-MED ONCE .ROUTE ; Start 07/25/16 at 06: 11; Stop 07/25/16 at 06:12; Status DC Morphine Sulfate 4 mg STK-MED ONCE .ROUTE ; Start 07/25/16 at 06:59; Stop at 07:00; Status DC Morphine Sulfate 4 mg 4 mg 1X ONCE IV ; Start 07/25/16 at 07:15; Stop 07/25/16 at 07:16; Status DC Cefazolin Sodium/ Sodium Chloride (Ancef/Iv Sodium Chloride 0.9% 500ml Bag) 500 ml @ 500 mls/hr 1X PERIOP ONCE IRR Last administered on 07/25/16 08:46; Start 07/25/16 at 07:15; Stop 07/25/16 at 08:14; Status DC Cellulose 1 each STK-MED ONCE .ROUTE Last administered on 07/25/16 08:46; Start 07/25/16 at 07:07; Stop 07/25/16 at 07:08; Status DC Vancomycin HCl (Vanco) 10 gm STK-MED ONCE .ROUTE Last administered on 08:46; Start 07/25/16 at 07:07; Stop 07/25/16 at 07:08; Status DC Papaverine HCl 60 mg STK-MED ONCE .ROUTE Last administered on 07/25/16 08:46; Start 07/25/16 at 07:07; Stop 07/25/16 at 07:08; Status DC Aspirin (Aspirin) 300 mg STK-MED ONCE .ROUTE Last administered on 07/25/16 17: 25; Start 07/25/16 at 07:08; Stop 07/25/16 at 07:09; Status DC Sodium Chloride (Sodium Chloride) 50 ml STK-MED ONCE IJ Last administered on 08:46; Start 07/25/16 at 07:08; Stop 07/25/16 at 07:09; Status DC Midazolam HCl (Versed) 2 mg STK-MED ONCE .ROUTE ; Start 07/25/16 at 07:15; Stop 07/25/16 at 07:16; Status DC Ephedrine Sulfate 50 mg 50 mg STK-MED ONCE IV ; Start 07/25/16 at 07:16; Stop at 07:17; Status DC Nitroglycerin/ Dextrose (Nitroglycerin Drip) 250 ml @ As Directed STK-MED ONCE IV ; Start 07/25/16 at 07:16; Stop 07/25/16 at 07:17; Status DC Midazolam HCl (Versed) 2 mg STK-MED ONCE .ROUTE ; Start 07/25/16 at 07:18; Stop 07/25/16 at 07:19; Status DC Fentanyl Citrate (Fentanyl 2ml Vial) 100 mcg STK-MED ONCE .ROUTE ; Start at 07:19; Stop 07/25/16 at 07:20; Status DC Sufentanil Citrate (Sufenta) 100 mcg STK-MED ONCE .ROUTE ; Start 07/25/16 at 07: 19; Stop 07/25/16 at 07:20; Status DC Midazolam HCl (Versed) 2 mg 1X ONCE IV ; Start 07/25/16 at 08:00; Stop at 08:01; Status DC Dexamethasone Sodium Phosphate (Decadron) 20 mg STK-MED ONCE .ROUTE ; Start 01/31 at 07:58; Stop 07/25/16 at 07:59; Status DC Rocuronium [place] (Zemuron) 100 mg STK-MED ONCE .ROUTE ; Start 07/25/16 at 08: 52; Stop 07/25/16 at 08:53; Status DC Sufentanil Citrate (Sufenta) 100 mcg STK-MED ONCE .ROUTE ; Start 07/25/16 at 08: 53; Stop 07/25/16 at 08:54; Status DC Protamine Sulfate 250 mg STK-MED ONCE IV ; Start 07/25/16 at 10:43; Stop at 10:44; Status DC Rocuronium [place] 100 mg 100 mg STK-MED ONCE .ROUTE ; Start 07/25/16 at 10:52; Stop 07/25/16 at 10:53; Status DC Albumin Human 0 ml @ As Directed STK-MED ONCE IV ; Start 07/25/16 at 10:53; Stop 07/25/16 at 10:54; Status DC Amiodarone HCl/ Dextrose (Cordarone) 518 ml @ 34.53 mls/ hr 1X ONCE IV Last administered on 07/25/16t 18:52; Start 07/25/16 at 11:30; Stop 07/26/16 at 02:30 ; Status DC Sodium Bicarbonate 50 meq STK-MED ONCE .ROUTE ; Start 07/25/16 at 11:35; Stop at 11:36; Status DC Protamine Sulfate 50 mg STK-MED ONCE IV ; Start 07/25/16 at 12:31; Stop at 12:32; Status DC Amiodarone HCl (Cordarone) 150 mg STK-MED ONCE .ROUTE ; Start 07/25/16 at 12:37 ; Stop 07/25/16 at 12:38; Status DC Isoflurane (Isoflurane) 90 ml STK-MED ONCE IH ; Start 07/25/16 at 12:42; Stop at 12:43; Status DC Lidocaine HCl (Lidocaine HCl 2% Abboject) 100 mg STK-MED ONCE .ROUTE ; Start 01/31 at 13:07; Stop 07/25/16 at 13:08; Status DC Mannitol (Mannitol) 12.5 g STK-MED ONCE .ROUTE ; Start 07/25/16 at 13:07; Stop 07/25/16 at 13:08; Status DC Calcium Chloride 1,000 mg STK-MED ONCE IV ; Start 07/25/16 at 13:07; Stop at 13:08; Status DC Sodium Bicarbonate 50 meq 50 meq STK-MED ONCE .ROUTE ; Start 07/25/16 at 13:07; Stop 07/25/16 at 13:08; Status DC Albumin Human (Albuminar) 100 ml @ As Directed STK-MED ONCE IV ; Start at 13:07; Stop 07/25/16 at 13:08; Status DC Magnesium Sulfate 5 gm STK-MED ONCE .ROUTE ; Start 07/25/16 at 13:08; Stop 07/25 at 13:09; Status DC Heparin Sodium (Porcine) 85561 unit 30,000 unit STK-MED ONCE .ROUTE ; Start 01/31 at 13:08; Stop 07/25/16 at 13:09; Status DC Clevidipine (Cleviprex) 100 ml @ 0 mls/hr CONT PRN IV PER PROTOCOL; Start 07/25 at 13:45; Stop 07/26/16 at 11:29; Status DC Heparin Sodium (Porcine) 51783 unit 30,000 unit STK-MED ONCE .ROUTE ; Start 01/31 at 13:39; Stop 07/25/16 at 13:40; Status DC Epinephrine HCl/ Sodium Chloride (Adrenalin/Iv Sodium Chloride 0.9% 250ml) 254 ml @ 3.81 mls/hr CONT PRN IV SEE I/O RECORD; Start 07/25/16 at 13:45; Stop at 13:38; Status DC Epinephrine HCl (Epinephrine Syringe) 1 mg STK-MED ONCE .ROUTE ; Start 07/25/16 at 13:52; Stop 07/25/16 at 13:53; Status DC Rocuronium [place] (Zemuron) 100 mg STK-MED ONCE .ROUTE ; Start 07/25/16 at 13: 57; Stop 07/25/16 at 13:58; Status DC Sodium Bicarbonate 50 meq 50 meq STK-MED ONCE .ROUTE ; Start 07/25/16 at 14:04; Stop 07/25/16 at 14:05; Status DC Procainamide HCl/ Dextrose (Pronestyl) 520 ml @ 15.6 mls/hr CONT PRN IV SEE I/ O RECORD; Start 07/25/16 at 14:30; Stop 07/28/16 at 15:22; Status DC Sodium Bicarbonate 50 meq STK-MED ONCE .ROUTE ; Start 07/25/16 at 14:31; Stop at 14:32; Status DC Sodium Bicarbonate 50 meq STK-MED ONCE .ROUTE ; Start 07/25/16 at 14:31; Stop at 14:32; Status DC Protamine Sulfate 50 mg STK-MED ONCE IV ; Start 07/25/16 at 15:13; Stop at 15:14; Status DC Protamine Sulfate 50 mg STK-MED ONCE IV ; Start 07/25/16 at 15:13; Stop at 15:14; Status DC Isoflurane 90 ml 90 ml STK-MED ONCE IH ; Start 07/25/16 at 15:13; Stop 07/25/16 at 15:14; Status DC Dobutamine HCl/ Dextrose 250 ml @ As Directed STK-MED ONCE IV ; Start 07/25/16 at 15:17; Stop 07/25/16 at 15:18; Status DC Iohexol 100 ml 100 ml STK-MED ONCE .ROUTE Last administered on 07/25/16t 15:39 ; Start 07/25/16 at 15:28; Stop 07/25/16 at 15:29; Status DC Norepinephrine Bitartrate 8 mg/ Sodium Chloride 258 ml @ 1.93 mls/hr 1X ONCE IV Last administered on 07/25/16t 18:53; Start 07/25/16 at 16:00; Stop at 08:04; Status DC Albumin Human (Plasmanate) 1,000 ml @ As Directed STK-MED ONCE IV ; Start 07/25 at 16:11; Stop 07/25/16 at 16:12; Status DC Heparin Sodium (Porcine) (Heparin Sodium) 10,000 unit STK-MED ONCE .ROUTE ; Start 07/25/16 at 16:19; Stop 07/25/16 at 16:20; Status DC Lidocaine HCl (Lidocaine HCl 2% Abboject) 100 mg STK-MED ONCE .ROUTE ; Start 01/31 at 16:19; Stop 07/25/16 at 16:20; Status DC Mannitol (Mannitol) 12.5 g STK-MED ONCE .ROUTE ; Start 07/25/16 at 16:19; Stop 07/25/16 at 16:20; Status DC Calcium Chloride 1,000 mg STK-MED ONCE IV ; Start 07/25/16 at 16:19; Stop at 16:20; Status DC Sodium Bicarbonate 50 meq STK-MED ONCE .ROUTE ; Start 07/25/16 at 16:19; Stop at 16:20; Status DC Magnesium Sulfate 5 gm STK-MED ONCE .ROUTE ; Start 07/25/16 at 16:19; Stop 07/25 at 16:20; Status DC Heparin Sodium (Porcine) (Heparin Sodium) 10,000 unit STK-MED ONCE .ROUTE ; Start 07/25/16 at 16:20; Stop 07/25/16 at 16:21; Status DC Lidocaine HCl (Lidocaine HCl 2% Abboject) 100 mg STK-MED ONCE .ROUTE ; Start 01/31 at 16:20; Stop 07/25/16 at 16:21; Status DC Aminocaproic Acid (Amicar) 5,000 mg STK-MED ONCE IV ; Start 07/25/16 at 16:20; Stop 07/25/16 at 16:21; Status DC Mannitol (Mannitol) 12.5 g STK-MED ONCE .ROUTE ; Start 07/25/16 at 16:20; Stop 07/25/16 at 16:21; Status DC Sodium Bicarbonate 50 meq 50 meq STK-MED ONCE .ROUTE ; Start 07/25/16 at 16:20; Stop 07/25/16 at 16:21; Status DC Albumin Human (Albuminar) 100 ml @ As Directed STK-MED ONCE IV ; Start at 16:20; Stop 07/25/16 at 16:21; Status DC Rocuronium [place] (Zemuron) 50 mg STK-MED ONCE .ROUTE ; Start 07/25/16 at 16:33 ; Stop 07/25/16 at 16:34; Status DC Rocuronium [place] (Zemuron) 50 mg STK-MED ONCE .ROUTE ; Start 07/25/16 at 16:33 ; Stop 07/25/16 at 16:34; Status DC Protamine Sulfate 50 mg STK-MED ONCE IV ; Start 07/25/16 at 16:34; Stop at 16:35; Status DC Sodium Bicarbonate 50 meq STK-MED ONCE .ROUTE ; Start 07/25/16 at 16:36; Stop at 16:37; Status DC Calcium Chloride 1,000 mg STK-MED ONCE IV ; Start 07/25/16 at 16:41; Stop at 16:42; Status DC Epinephrine HCl (Epinephrine Syringe) 1 mg STK-MED ONCE .ROUTE ; Start 07/25/16 at 16:41; Stop 07/25/16 at 16:42; Status DC Sodium Bicarbonate 50 meq STK-MED ONCE .ROUTE ; Start 07/25/16 at 16:52; Stop at 16:53; Status DC Sodium Bicarbonate 50 meq STK-MED ONCE .ROUTE ; Start 07/25/16 at 16:52; Stop at 16:53; Status DC Sodium Bicarbonate 50 meq STK-MED ONCE .ROUTE ; Start 07/25/16 at 16:52; Stop at 16:53; Status DC Vasopressin (Vasostrict) 20 unit STK-MED ONCE .ROUTE ; Start 07/25/16 at 16:54; Stop 07/25/16 at 16:55; Status DC Famotidine (Pepcid) 20 mg STK-MED ONCE .ROUTE ; Start 07/25/16 at 16:56; Stop at 16:57; Status DC Dexamethasone Sodium Phosphate (Decadron) 20 mg STK-MED ONCE .ROUTE ; Start 01/31 at 16:56; Stop 07/25/16 at 16:57; Status DC Diphenhydramine HCl 50 mg 50 mg STK-MED ONCE .ROUTE ; Start 07/25/16 at 16:56; Stop 07/25/16 at 16:57; Status DC Vasopressin/ Dextrose (Vasostrict) 102 ml @ 6 mls/hr CONT PRN IV SEE I/O RECORD Last administered on 08/03/16 18:28; Start 07/25/16 at 17:15; Stop 08/08 at 14:02; Status DC Sodium Bicarbonate 50 meq STK-MED ONCE .ROUTE ; Start 07/25/16 at 17:24; Stop at 17:25; Status DC Sodium Bicarbonate 50 meq 50 meq STK-MED ONCE .ROUTE ; Start 07/25/16 at 17:24; Stop 07/25/16 at 17:25; Status DC Cefazolin Sodium/ Dextrose (Ancef 2gm Premix) 50 ml @ As Directed STK-MED ONCE IV ; Start 07/25/16 at 17:32; Stop 07/25/16 at 17:33; Status DC Sodium Chloride 3 ml 3 ml PRN Q12HR PRN IV AFTER MEDS AND BLOOD DRAWS; Start at 17:30; Stop 07/29/16 at 13:38; Status DC Lactated Ringer's 1,000 ml @ 15 mls/hr Q24H IV Last administered on 07/29/16 16:45; Start 07/25/16 at 17:30; Stop 07/31/16 at 15:33; Status DC Insulin Human Regular/Sodium Chloride (Novolin R Vial/ Iv Normal Saline 150ml) 151.5 ml @ 0 mls/hr CONT PRN PRN IV SEE I/O RECORD Last administered on 03:03; Start 07/25/16 at 17:30; Stop 07/29/16 at 13:51; Status DC Dextrose 25 gm 25 gm PRN Q15MIN PRN IV LOW BLOOD SUGAR; Start 07/25/16 at 17:30 ; Stop 07/29/16 at 13:51; Status DC Dopamine HCl/ Dextrose 250 ml @ 0 mls/hr CONT PRN PRN IV SEE I/O RECORD; Start 07/25/16 at 17:30; Stop 07/26/16 at 11:41; Status DC Amiodarone HCl/ Dextrose (Cordarone) 518 ml @ 33.33 mls/ hr CONT PRN PRN IV SEE COMMENTS; Start 07/25/16 at 17:30; Status UNV Info 1 ea CONT PRN PRN MC SEE COMMENTS; Start 07/25/16 at 17:30; Stop 08/03/16 at 12:57; Status DC Info 1 ea 1 ea CONT PRN PRN MC SEE COMMENTS; Start 07/25/16 at 17:30; Stop at 13:38; Status DC Magnesium Sulfate/ Dextrose (Magnesium Sulfate PREMIX 1GM) 100 ml @ 100 mls/hr PRN DAILY PRN IV FOR MAG < 2.2 Last administered on 07/27/16 10:59; Start 01/31 at 17:30; Stop 08/08/16 at 13:38; Status DC Famotidine (Pepcid) 20 mg BID IVP Last administered on 08/03/16 09:15; Start 07/25/16 at 21:00; Stop 08/03/16 at 15:28; Status DC Metoclopramide HCl (Reglan) 10 mg PRN Q6HRS PRN IV NAUSEA/VOMITING Last administered on 08/07/16 07:26; Start 07/25/16 at 17:30; Stop 08/08/16 at 13:39 ; Status DC Morphine Sulfate 2 mg PRN Q1HR PRN IV PAIN Last administered on 07/28/16 14:21 ; Start 07/25/16 at 17:30; Stop 07/29/16 at 13:38; Status DC Acetaminophen (Tylenol) 650 mg PRN Q4HRS PRN PO MILD PAIN / TEMP; Start at 17:30; Stop 07/29/16 at 13:38; Status DC Acetaminophen (Acetaminophen Supp) 650 mg PRN Q4HRS PRN CA MILD PAIN / TEMP Last administered on 08/03/16 01:04; Start 07/25/16 at 17:30 Meperidine HCl 12.5 mg 12.5 mg PRN Q15MIN PRN IV SHIVERING; Start 07/25/16 at 17:30; Stop 07/29/16 at 13:38; Status DC Propofol (Diprivan) 100 ml @ 0 mls/hr CONT PRN PRN IV POSTOP SEDATION UNTIL EXTUBATE; Start 07/25/16 at 17:30; Stop 07/28/16 at 15:22; Status DC Aspirin (Ecotrin) 325 mg DAILYWBKFT PO Last administered on 07/29/16 09:54; Start 07/26/16 at 08:00; Stop 07/29/16 at 09:59; Status DC Aspirin (Aspirin) 300 mg PRN DAILY PRN CA IF UNABLE TO TAKE PO; Start 07/25/16 at 17:30; Stop 07/26/16 at 12:00; Status DC Acetaminophen/ Hydrocodone Bitart (Lortab 5/325) 1 tab PRN Q4HRS PRN PO MILD PAIN; Start 07/25/16 at 17:30; Stop 08/03/16 at 12:24; Status DC Acetaminophen/ Hydrocodone Bitart 2 tab 2 tab PRN Q4HRS PRN PO MODERATE PAIN, SEVERE PAIN; Start 07/25/16 at 17:30; Stop 08/03/16 at 12:24; Status DC Cefazolin Sodium/ Dextrose 50 ml @ 100 mls/hr Q8H IV ; Start 07/25/16 at 18:00 ; Stop 07/25/16 at 21:42; Status DC Albumin Human 250 ml @ 62.5 mls/hr 1X ONCE IV Last administered on 07/27/16 17:52; Start 07/25/16 at 17:30; Stop 07/25/16 at 21:29; Status DC Midazolam HCl 100 ml @ As Directed STK-MED ONCE IV ; Start 07/25/16 at 18:06; Stop 07/25/16 at 18:07; Status DC Midazolam HCl 100 ml @ 0 mls/hr CONT PRN IV SEE I/O RECORD Last administered on 07/25/16 18:56; Start 07/25/16 at 18:15; Stop 07/26/16 at 08:59; Status DC Vancomycin HCl 1 gm/Sodium Chloride 250 ml @ 250 mls/hr 1X ONCE IV Last administered on 07/25/16 20:56; Start 07/25/16 at 18:15; Stop 07/25/16 at 19:14 ; Status DC Piperacillin Sod/ Tazobactam Sod/ Sodium Chloride (Zosyn/Iv Sodium Chloride 0.9 % 50ml) 50 ml @ 100 mls/hr Q6HRS IV Last administered on 07/31/16 05:32; Start 07/25/16 at 18:15; Stop 07/31/16 at 10:25; Status DC Midazolam HCl (Versed) 2 mg PRN Q20MIN PRN IV SEDATION; Start 07/25/16 at 18:15 ; Stop 07/25/16 at 18:39; Status DC Midazolam HCl 5 mg 5 mg PRN Q30MIN PRN IV SEDATION; Start 07/25/16 at 18:15; Stop 07/25/16 at 18:39; Status DC Vecuronium [place] 100 mg/ Dextrose 100 ml @ 0 mls/hr 1X ONCE IV Last administered on 07/25/16 19:43; Start 07/25/16 at 18:15; Stop 07/25/16 at 18:17 ; Status DC Midazolam HCl 100 ml @ 0 mls/hr CONT PRN IV SEE I/O RECORD Last administered on 07/28/16 19:40; Start 07/25/16 at 18:45 Dobutamine HCl/ Dextrose 250 ml @ 0 mls/hr CONT PRN IV SEE I/O RECORD Last administered on 07/29/16 03:10; Start 07/25/16 at 18:45; Stop 07/29/16 at 13:38 ; Status DC Potassium Chloride 50 ml @ 50 mls/hr Q1H IV Last administered on 07/25/16 22: 58; Start 07/25/16 at 21:00; Stop 07/25/16 at 23:59; Status DC Cefazolin Sodium/ Dextrose 50 ml @ 100 mls/hr Q8H IV Last administered on 07/27 05:34; Start 07/25/16 at 22:00; Stop 07/27/16 at 06:29; Status DC Heparin Sodium (Porcine) 72396 unit/Dextrose 512.5 ml @ 0 mls/hr Q0M ONCE IV Last administered on 07/25/16 22:21; Start 07/25/16 at 22:15; Stop 07/25/16 at 22:16; Status DC Vecuronium [place]/Dextrose (Norcuron) 100 ml @ 0 mls/hr CONT PRN IV SEE I/O RECORD Last administered on 07/26/16 01:07; Start 07/26/16 at 00:45; Stop 07/29 at 13:38; Status DC Dextrose 25 gm 25 gm 1X ONCE IV Last administered on 07/26/16 01:08; Start at 01:00; Stop 07/26/16 at 01:18; Status DC Amiodarone HCl/ Dextrose (Cordarone) 259 ml @ 17.26 mls/ hr CONT PRN IV SEE I/ O RECORD Last administered on 07/30/16 13:02; Start 07/26/16 at 06:45; Stop at 15:33; Status DC Cefazolin Sodium/ Dextrose 2 gm 2 gm STK-MED ONCE IV ; Start 07/25/16 at 11:00; Stop 07/26/16 at 08:53; Status DC Lactated Ringer's 500 ml @ 5,000 mls/hr PRN Q10MIN PRN IV CVP <14; Start 07/26 at 10:00; Stop 07/29/16 at 13:38; Status DC Fentanyl Citrate (Fentanyl 600 Mcg/30 ml INSPECTION CLERK) 30 ml @ 0 mls/hr CONT PRN IV PROTOCOL Last administered on 07/31/16 09:12; Start 07/26/16 at 10:00; Stop at 13:31; Status DC Fentanyl Citrate (Fentanyl 2ml Vial) 25 mcg PRN Q1HR PRN IV COMM; Start at 10:00; Stop 07/29/16 at 13:38; Status DC Fentanyl Citrate (Fentanyl 2ml Vial) 50 mcg PRN Q1HR PRN IV COMM; Start at 10:00; Stop 07/29/16 at 13:38; Status DC Chlorhexidine Gluconate (Peridex) 15 ml BID MM Last administered on 08/09/16 07:46; Start 07/26/16 at 10:30 Sulfur Hexafluoride Microspheres (Lumason) 25 mg STK-MED ONCE IVP ; Start at 11:29; Stop 07/26/16 at 11:30; Status DC Aspirin 300 mg 300 mg DAILY CA Last administered on 07/28/16 07:55; Start 03/03 at 12:00; Stop 07/29/16 at 19:10; Status DC Potassium Chloride (KCl Premix 20meq) 50 ml @ 50 mls/hr 1X ONCE IV Last administered on 07/26/16 12:55; Start 07/26/16 at 12:00; Stop 07/26/16 at 12:59 ; Status DC Sulfur Hexafluoride Microspheres (Lumason) 25 mg 1X ONCE IVP Last administered on 07/26/16 11:45; Start 07/26/16 at 11:45; Stop 07/26/16 at 11:50 ; Status DC Multi-Ingred Cream/Lotion/Oil/ Oint (Artificial Tears Eye Oint) 1 adri BID OU Last administered on 08/09/16 07:46; Start 07/26/16 at 21:00 Ondansetron HCl (Zofran) 4 mg PRN Q6HRS PRN IV NAUSEA/VOMITING; Start 07/27/16 at 07:00; Stop 07/28/16 at 06:59; Status DC Fentanyl Citrate (Fentanyl 2ml Vial) 25 mcg PRN Q5MIN PRN IV MILD PAIN; Start 07/27/16 at 07:00; Stop 07/28/16 at 06:59; Status DC Fentanyl Citrate (Fentanyl 2ml Vial) 50 mcg PRN Q5MIN PRN IV MODERATE PAIN; Start 07/27/16 at 07:00; Stop 07/28/16 at 06:59; Status DC Morphine Sulfate 1 mg 1 mg PRN Q10MIN PRN IV SEVERE PAIN; Start 07/27/16 at 07: 00; Stop 07/28/16 at 06:59; Status DC Lactated Ringer's (Iv Lactated Ringers) 1,000 ml @ 30 mls/hr Q24H IV Last administered on 07/26/16 17:25; Start 07/27/16 at 07:00; Stop 07/27/16 at 18:59 ; Status DC Lidocaine HCl 2 ml PRN 1X PRN ID PRIOR TO IV START; Start 07/27/16 at 07:00; Stop 07/28/16 at 06:59; Status DC Hydromorphone HCl (Dilaudid) 0.5 mg PRN Q10MIN PRN IV SEV PAIN, Second choice; Start 07/27/16 at 07:00; Stop 07/28/16 at 06:59; Status DC Prochlorperazine Edisylate 5 mg 5 mg PACU PRN PRN IV NAUSEA, MRX1; Start at 07:00; Stop 07/28/16 at 06:59; Status DC Heparin Sodium (Porcine) 41644 unit/Dextrose 512.5 ml @ 0 mls/hr Q0M ONCE IV Last administered on 07/26/16 19:40; Start 07/26/16 at 18:30; Stop 07/26/16 at 18:31; Status DC Amiodarone HCl 150 mg/Dextrose 103 ml @ 618 mls/hr 1X ONCE IV Last administered on 07/26/16 19:25; Start 07/26/16 at 19:15; Stop 07/26/16 at 19:24 ; Status DC Norepinephrine Bitartrate 8 mg/ Sodium Chloride 258 ml @ 1.93 mls/hr CONT PRN IV SEE I/O RECORD Last administered on 08/03/16 11:12; Start 07/26/16 at 19:15 Amiodarone HCl 900 mg/Dextrose 518 ml @ 0 mls/hr CONT PRN IV PER PROTOCOL; Start 07/26/16 at 19:15; Stop 07/27/16 at 12:11; Status DC Milrinone Lactate/ Dextrose 100 ml @ 0 mls/hr CONT PRN IV SEE I/O RECORD Last administered on 07/26/16 20:03; Start 07/26/16 at 19:45; Stop 07/29/16 at 13:51 ; Status DC Calcium Chloride/ Sodium Chloride (Iv Sodium Chloride 0.9% 100ml) 120 ml @ 240 mls/hr 1X ONCE IV Last administered on 07/26/16 21:04; Start 07/26/16 at 21: 30; Stop 07/26/16 at 21:59; Status DC Digoxin 500 mcg 500 mcg 1X ONCE IV Last administered on 07/26/16 21:55; Start 07/26/16 at 21:45; Stop 07/26/16 at 21:46; Status DC Cefazolin Sodium/ Sodium Chloride (Ancef/Iv Sodium Chloride 0.9% 500ml Bag) 500 ml @ 500 mls/hr 1X PERIOP ONCE IRR Last administered on 07/27/16 14:37; Start 07/27/16 at 10:00; Stop 07/27/16 at 10:59; Status DC Vancomycin HCl (Vanco) 10 gm 1X ONCE CEMENT Last administered on 07/27/16 14: 37; Start 07/27/16 at 12:30; Stop 07/27/16 at 12:31; Status DC Rocuronium [place] (Zemuron) 100 mg STK-MED ONCE .ROUTE ; Start 07/27/16 at 12: 32; Stop 07/27/16 at 12:33; Status DC Lorazepam (Ativan) 2 mg STK-MED ONCE .ROUTE ; Start 07/27/16 at 14:13; Stop 04/02 at 14:14; Status DC Phenylephrine HCl 1 mg 1 mg STK-MED ONCE IV ; Start 07/27/16 at 14:18; Stop 04/02 at 14:19; Status DC Albumin Human (Plasmanate) 250 ml @ 62.5 mls/hr 1X ONCE IV Last administered on 07/27/16 17:52; Start 07/27/16 at 17:15; Stop 07/27/16 at 21:14; Status DC Sodium Bicarbonate 50 meq STK-MED ONCE .ROUTE ; Start 07/27/16 at 17:39; Stop at 17:40; Status DC Sodium Bicarbonate 50 meq 1X ONCE IV Last administered on 07/27/16 17:51; Start 07/27/16 at 18:00; Stop 07/27/16 at 18:01; Status DC Sodium Bicarbonate 50 meq 1X ONCE IV Last administered on 07/27/16 17:52; Start 07/27/16 at 18:00; Stop 07/27/16 at 18:01; Status DC Fentanyl Citrate (Fentanyl 2ml Vial) 25 mcg PRN Q5MIN PRN IV MILD PAIN; Start 07/28/16 at 07:00; Stop 07/29/16 at 06:59; Status DC Fentanyl Citrate (Fentanyl 2ml Vial) 50 mcg PRN Q5MIN PRN IV MODERATE PAIN; Start 07/28/16 at 07:00; Stop 07/29/16 at 06:59; Status DC Morphine Sulfate 1 mg 1 mg PRN Q10MIN PRN IV SEVERE PAIN; Start 07/28/16 at 07: 00; Stop 07/29/16 at 06:59; Status DC Lactated Ringer's (Iv Lactated Ringers) 1,000 ml @ 30 mls/hr Q24H IV Last administered on 07/28/16 06:49; Start 07/28/16 at 06:49; Stop 07/28/16 at 18:48 ; Status DC Lidocaine HCl 2 ml PRN 1X PRN ID PRIOR TO IV START; Start 07/28/16 at 07:00; Stop 07/29/16 at 06:59; Status DC Hydromorphone HCl (Dilaudid) 0.5 mg PRN Q10MIN PRN IV SEV PAIN, Second choice; Start 07/28/16 at 07:00; Stop 07/29/16 at 06:59; Status DC Rocuronium [place] 50 mg 50 mg STK-MED ONCE .ROUTE ; Start 07/28/16 at 07:27; Stop 07/28/16 at 07:28; Status DC Cefazolin Sodium/ Sodium Chloride (Ancef/Iv Sodium Chloride 0.9% 500ml Bag) 500 ml @ 500 mls/hr 1X PERIOP ONCE IRR Last administered on 07/28/16 09:25; Start 07/28/16 at 08:00; Stop 07/28/16 at 08:59; Status DC Cellulose 1 each STK-MED ONCE .ROUTE ; Start 07/28/16 at 07:42; Stop 07/28/16 at 07:43; Status DC Bupivacaine HCl/ Epinephrine Bitart 50 ml 50 ml STK-MED ONCE .ROUTE ; Start at 07:42; Stop 07/28/16 at 07:43; Status DC Heparin Sodium (Porcine)/Sodium Chloride (Heparin Sodium/ Iv Sodium Chloride 0.9 % 500ml Bag) 505 ml @ 505 mls/hr 1X PERIOP ONCE IRR Last administered on 07/28 10:19; Start 07/28/16 at 08:15; Stop 07/28/16 at 09:14; Status DC Lorazepam 2 mg 2 mg STK-MED ONCE .ROUTE ; Start 07/28/16 at 08:29; Stop at 08:30; Status DC Magnesium Sulfate/ Dextrose (Magnesium Sulfate PREMIX 1GM) 100 ml @ 100 mls/hr 1X ONCE IV Last administered on 07/28/16 13:09; Start 07/28/16 at 09:00; Stop 07/28/16 at 09:59; Status DC Vasopressin (Vasostrict) 20 unit STK-MED ONCE .ROUTE ; Start 07/28/16 at 09:03; Stop 07/28/16 at 09:04; Status DC Epinephrine HCl (Epinephrine Syringe) 1 mg STK-MED ONCE .ROUTE ; Start 07/28/16 at 09:09; Stop 07/28/16 at 09:10; Status DC Calcium Chloride 1,000 mg STK-MED ONCE IV ; Start 07/28/16 at 09:09; Stop at 09:10; Status DC Phenylephrine HCl 1 mg STK-MED ONCE IV ; Start 07/28/16 at 09:54; Stop 07/28/16 at 09:55; Status DC Sevoflurane 60 ml 60 ml STK-MED ONCE IH ; Start 07/28/16 at 09:54; Stop at 09:55; Status DC Epinephrine HCl/ Sodium Chloride (Adrenalin/Iv Sodium Chloride 0.9% 250ml) 254 ml @ 3.81 mls/hr 1X ONCE IV ; Start 07/28/16 at 10:00; Stop 07/29/16 at 19:10 ; Status DC Heparin Sodium (Porcine) 82990 unit 10,000 unit STK-MED ONCE .ROUTE ; Start at 09:57; Stop 07/28/16 at 09:58; Status DC Albumin Human (Plasmanate) 500 ml @ As Directed STK-MED ONCE IV ; Start at 09:57; Stop 07/28/16 at 09:58; Status DC Iohexol 100 ml 100 ml STK-MED ONCE .ROUTE ; Start 07/28/16 at 10:39; Stop at 10:40; Status DC Heparin Sodium/ Sodium Chloride 500 ml @ As Directed STK-MED ONCE .ROUTE ; Start 07/28/16 at 10:39; Stop 07/28/16 at 10:40; Status DC Iohexol 100 ml 100 ml STK-MED ONCE .ROUTE ; Start 07/28/16 at 10:43; Stop at 10:44; Status DC Heparin Sodium/ Sodium Chloride 500 ml @ As Directed STK-MED ONCE .ROUTE ; Start 07/28/16 at 11:21; Stop 07/28/16 at 11:22; Status DC Albuterol Sulfate (Ventolin Neb Soln) 2.5 mg RTQID NEB Last administered on t 08:46; Start 07/28/16 at 12:00; Stop 07/30/16 at 17:05; Status DC Furosemide (Lasix) 40 mg 1X ONCE IVP Last administered on 07/28/16 13:16; Start 07/28/16 at 13:15; Stop 07/28/16 at 13:16; Status DC Furosemide (Lasix) 40 mg 1X ONCE IVP Last administered on 07/28/16 13:19; Start 07/28/16 at 14:00; Stop 07/28/16 at 14:01; Status DC Heparin Sodium/ Sodium Chloride 1000 unit 1,000 unit CONT PRN IV ART LINE FLUSH Last administered on 08/02/16 06:47; Start 07/28/16 at 14:45; Stop at 13:39; Status DC Albumin Human 250 ml @ 62.5 mls/hr PRN Q1HR PRN IV SEE COMMENTS Last administered on 08/02/16 16:12; Start 07/28/16 at 15:15; Stop 08/09/16 at 08:10 ; Status DC Furosemide 100 mg/ Sodium Chloride 100 ml @ 5 mls/hr CONT PRN IV SEE I/O RECORD Last administered on 07/30/16 09:50; Start 07/28/16 at 15:30; Stop 07/31 at 13:31; Status DC Potassium Chloride 50 ml @ 50 mls/hr Q1H IV Last administered on 07/28/16 19: 39; Start 07/28/16 at 18:30; Stop 07/28/16 at 20:29; Status DC Potassium Chloride (KCl Premix 20meq) 50 ml @ 50 mls/hr Q1H IV Last administered on 07/29/16 09:36; Start 07/29/16 at 07:00; Stop 07/29/16 at 08:59 ; Status DC Lorazepam (Ativan) 2 mg STK-MED ONCE .ROUTE ; Start 07/28/16 at 08:30; Stop at 08:16; Status DC Aspirin (Arti Aspirin) 325 mg DAILYWBKFT PO Last administered on 08/09/16 07: 46; Start 07/30/16 at 08:00 Docusate Sodium 100 mg 100 mg DAILY PO Last administered on 07/31/16 07:59; Start 07/30/16 at 09:00; Stop 07/31/16 at 11:00; Status DC Dobutamine HCl/ Dextrose 250 ml @ 12.1 mls/hr CONT PRN IV PER PROTOCOL Last administered on 08/02/16 18:03; Start 07/29/16 at 13:30; Stop 08/08/16 at 13:39 ; Status DC Potassium Chloride 50 ml @ 50 mls/hr Q1H IV Last administered on 07/29/16 22: 39; Start 07/29/16 at 20:00; Stop 07/29/16 at 22:59; Status DC Potassium Chloride (KCl Premix 20meq) 50 ml @ 50 mls/hr Q1H IV Last administered on 07/30/16 09:19; Start 07/30/16 at 07:00; Stop 07/30/16 at 08:59 ; Status DC Ipratropium [place] (Atrovent) 0.5 mg RTQID NEB Last administered on 08/09/16 08:17; Start 07/30/16 at 12:30 Digoxin 500 mcg 500 mcg 1X ONCE IV Last administered on 07/30/16 13:01; Start 07/30/16 at 12:15; Stop 07/30/16 at 12:19; Status DC Dexmedetomidine HCl/Sodium Chloride (Precedex/Iv Sodium Chloride 0.9% 50ml) 50 ml @ 0 mls/hr CONT PRN IV PER PROTOCOL Last administered on 08/04/16 05:20; Start 07/30/16 at 13:30; Stop 08/08/16 at 14:02; Status DC Atropine Sulfate 0.5 mg PRN Q5MIN PRN IV SEE COMMENTS; Start 07/30/16 at 13:30 Amiodarone HCl (Cordarone) 400 mg ONCE ONCE PO Last administered on 07/30/16 15:01; Start 07/30/16 at 13:30; Stop 07/30/16 at 13:46; Status DC Amiodarone HCl (Cordarone) 400 mg BID PO Last administered on 08/08/16 10:54; Start 07/30/16 at 21:00; Stop 08/08/16 at 14:02; Status DC Digoxin 125 mcg 125 mcg DAILY IV Last administered on 08/02/16 08:56; Start at 09:00; Stop 08/03/16 at 14:27; Status DC Albumin Human (Albuminar) 50 ml @ 50 mls/hr 1X ONCE IV Last administered on 16:26; Start 07/30/16 at 16:30; Stop 07/30/16 at 17:29; Status DC Ibuprofen (Motrin) 200 mg PRN Q6HRS PRN PO fever; Start 07/30/16 at 19:45; Stop 08/01/16 at 12:22; Status DC Metoprolol Tartrate (Lopressor) 2.5 mg 1X ONCE IVP Last administered on 20:23; Start 07/30/16 at 20:30; Stop 07/30/16 at 20:31; Status DC Metoprolol Tartrate 5 mg 5 mg PRN Q2HR PRN IVP HYPERTENSION Last administered on 08/04/16 22:09; Start 07/30/16 at 22:30 Potassium Chloride (KCl Premix 20meq) 50 ml @ 50 mls/hr Q1H IV Last administered on 07/31/16 09:04; Start 07/31/16 at 07:00; Stop 07/31/16 at 08:59 ; Status DC Metoprolol Tartrate (Lopressor) 12.5 mg BID NG Last administered on 08/09/16 07:46; Start 07/31/16 at 10:00 Docusate Sodium (Colace Solution) 100 mg PRN DAILY PRN PO constipation Last administered on 08/01/16 08:40; Start 07/31/16 at 11:00; Stop 08/08/16 at 13:39 ; Status DC Hydralazine HCl (Apresoline) 10 mg PRN Q2HRS PRN IVP ELEVATED BP, SEE COMMENTS Last administered on 08/01/16 16:35; Start 07/31/16 at 13:30 Fentanyl Citrate (Fentanyl 2ml Vial) 50 mcg PRN Q2HR PRN IV PAIN Last administered on 08/02/16 12:57; Start 07/31/16 at 13:45 Furosemide (Lasix) 40 mg TID IVP Last administered on 08/02/16 05:49; Start at 14:00; Stop 08/02/16 at 15:33; Status DC Alteplase, Recombinant (Cathflo) 2 mg 1X ONCE INT CAT Last administered on 23:34; Start 07/31/16 at 23:15; Stop 07/31/16 at 23:16; Status DC Haloperidol Lactate (Haldol) 5 mg PRN Q6HRS PRN IVP MODERATE AGITATION Last administered on 08/07/16 07:26; Start 08/01/16 at 21:00 Haloperidol Lactate 10 mg 10 mg PRN Q6HRS PRN IVP SEVERE AGITATION Last administered on 08/07/16 21:04; Start 08/01/16 at 23:45 Propofol 100 ml @ 0 mls/hr CONT PRN IV SEE I/O RECORD Last administered on 08/02 11:43; Start 08/02/16 at 02:45; Stop 08/08/16 at 14:02; Status DC Piperacillin Sod/ Tazobactam Sod/ Sodium Chloride (Zosyn/Iv Sodium Chloride 0.9 % 50ml) 50 ml @ 100 mls/hr Q6HRS IV Last administered on 08/02/16 13:17; Start 08/02/16 at 12:00; Stop 08/02/16 at 15:43; Status DC Vancomycin HCl 1 each 1 each PRN DAILY PRN MC SEE COMMENTS Last administered on 08/02/16 13:20; Start 08/02/16 at 11:45; Stop 08/03/16 at 15:24; Status DC Vancomycin HCl 2 gm/Sodium Chloride 500 ml @ 250 mls/hr 1X ONCE IV Last administered on 08/02/16 11:52; Start 08/02/16 at 12:00; Stop 08/02/16 at 13:59 ; Status DC Sodium Chloride (Iv Sodium Chloride 0.9% 500ml Bag) 500 ml @ 500 mls/hr 1X ONCE IV Last administered on 08/02/16 12:39; Start 08/02/16 at 12:45; Stop at 13:44; Status DC Vecuronium [place] (Norcuron Bolus) 10 mg 1X STAT IV Last administered on 08/02 13:34; Start 08/02/16 at 13:17; Stop 08/02/16 at 13:23; Status DC Vancomycin HCl 1 each 1 each 1X ONCE MC ; Start 08/03/16 at 23:30; Stop at 23:30; Status DC Vancomycin HCl 1.25 gm/Sodium Chloride 250 ml @ 167 mls/hr Q12H IV Last administered on 08/03/16 00:33; Start 08/03/16 at 00:00; Stop 08/03/16 at 11:07 ; Status DC Fentanyl Citrate (Fentanyl 600 Mcg/30 ml INSPECTION CLERK) 30 ml @ 0 mls/hr CONT PRN PRN IV PROTOCOL Last administered on 08/06/16 02:18; Start 08/02/16 at 13:30; Stop at 13:39; Status DC Naloxone HCl 0.4 mg 0.4 mg PRN Q2MIN PRN IV SEE INSTRUCTIONS; Start 08/02/16 at 13:30 Micafungin Sodium 100 mg/Dextrose 100 ml @ 100 mls/hr Q24H IV Last administered on 08/08/16 17:12; Start 08/02/16 at 17:00 Lactated Ringer's 1,000 ml @ 1,000 mls/hr 1X ONCE IV Last administered on 15:45; Start 08/02/16 at 15:45; Stop 08/02/16 at 16:44; Status DC Piperacillin Sod/ Tazobactam Sod 4.5 gm/Sodium Chloride 100 ml @ 200 mls/hr Q6HRS IV Last administered on 08/03/16 12:00; Start 08/02/16 at 18:00; Stop at 14:02; Status DC Albumin Human (Plasmanate) 500 ml @ 125 mls/hr 1X ONCE IV Last administered on 08/02/16 20:37; Start 08/02/16 at 20:30; Stop 08/03/16 at 00:29; Status DC Furosemide (Lasix) 40 mg 1X ONCE IVP Last administered on 08/03/16 00:16; Start 08/02/16 at 20:30; Stop 08/02/16 at 20:31; Status DC Acetaminophen (Tylenol) 650 mg 1X ONCE NG Last administered on 08/03/16 02:03 ; Start 08/03/16 at 02:15; Stop 08/03/16 at 02:16; Status DC Ketorolac Tromethamine 15 mg 15 mg 1X ONCE IV Last administered on 08/03/16 02:03; Start 08/03/16 at 02:15; Stop 08/03/16 at 02:16; Status DC Lactated Ringer's (Iv Lactated Ringers) 500 ml @ 500 mls/hr 1X ONCE IV Last administered on 08/03/16 10:15; Start 08/03/16 at 10:15; Stop 08/03/16 at 11:14 ; Status DC Sodium Bicarbonate 50 meq 1X ONCE IV Last administered on 08/03/16 10:44; Start 08/03/16 at 10:15; Stop 08/03/16 at 10:20; Status DC Calcium Gluconate 1000 mg 1,000 mg 1X ONCE IVP ; Start 08/03/16 at 12:15; Stop 08/03/16 at 12:16; Status DC Sodium Bicarbonate 150 meq/Dextrose/ Sodium Chloride 1,150 ml @ 100 mls/hr [id number] PRN IV .; Start 08/03/16 at 12:30; Stop 08/03/16 at 13:03; Status DC Magnesium Sulfate/ Dextrose 50 ml @ 25 mls/hr PRN DAILY PRN IV for Mag < 1.7 on am labs; Start 08/03/16 at 12:30 Sodium Bicarbonate 150 meq/Dextrose 1,150 ml @ 100 mls/hr [id number] IV Last administered on 08/04/16 04:31; Start 08/03/16 at 13:30; Stop 08/04/16 at 08:31 ; Status DC Calcium Chloride 2000 mg/Sodium Chloride 120 ml @ 240 mls/hr 1X ONCE IV Last administered on 08/03/16 13:30; Start 08/03/16 at 13:30; Stop 08/03/16 at 13:59 ; Status DC Piperacillin Sod/ Tazobactam Sod/ Sodium Chloride (Zosyn/Iv Sodium Chloride 0.9 % 50ml) 50 ml @ 100 mls/hr Q6HRS IV Last administered on 08/08/16 12:09; Start 08/03/16 at 18:00; Stop 08/08/16 at 15:35; Status DC Heparin Sodium (Porcine) (Heparin Sodium) 10,000 unit STK-MED ONCE .ROUTE ; Start 08/03/16 at 14:31; Stop 08/03/16 at 14:32; Status DC Lidocaine/Sodium Bicarbonate (Buffered Lidocaine 1%) 20 ml STK-MED ONCE IJ ; Start 08/03/16 at 14:31; Stop 08/03/16 at 14:32; Status DC Heparin Sodium/ Sodium Chloride 60 unit 1X ONCE IV Last administered on 16:17; Start 08/03/16 at 14:45; Stop 08/03/16 at 14:46; Status DC Heparin Sodium (Porcine) (Heparin Sodium) 2,500 unit 1X ONCE INT CAT Last administered on 08/03/16 16:16; Start 08/03/16 at 14:45; Stop 08/03/16 at 14:46 ; Status DC Lidocaine/Sodium Bicarbonate (Buffered Lidocaine 1%) 3 ml 1X ONCE IJ Last administered on 08/03/16 16:16; Start 08/03/16 at 14:45; Stop 08/03/16 at 14:46 ; Status DC Fentanyl Citrate (Fentanyl 2ml Vial) 25 mcg PRN Q5MIN PRN IV MILD PAIN; Start 08/04/16 at 07:00; Stop 08/05/16 at 06:59; Status DC Fentanyl Citrate (Fentanyl 2ml Vial) 50 mcg PRN Q5MIN PRN IV MODERATE PAIN; Start 08/04/16 at 07:00; Stop 08/05/16 at 06:59; Status DC Morphine Sulfate 1 mg 1 mg PRN Q10MIN PRN IV SEVERE PAIN; Start 08/04/16 at 07: 00; Stop 08/05/16 at 06:59; Status DC Lactated Ringer's (Iv Lactated Ringers) 1,000 ml @ 0 mls/hr Q0M IV ; Start at 07:00; Stop 08/04/16 at 18:59; Status DC Lidocaine HCl 2 ml PRN 1X PRN ID PRIOR TO IV START; Start 08/04/16 at 07:00; Stop 08/05/16 at 06:59; Status DC Hydromorphone HCl (Dilaudid) 0.5 mg PRN Q10MIN PRN IV SEV PAIN, Second choice; Start 08/04/16 at 07:00; Stop 08/05/16 at 06:59; Status DC Famotidine (Pepcid) 20 mg DAILY IVP Last administered on 08/05/16 07:43; Start 08/04/16 at 09:00; Stop 08/06/16 at 07:05; Status DC Insulin Aspart (Novolog) 0-7 UNITS TIDWMEALS SQ Last administered on 08/07/16 16:37; Start 08/03/16 at 19:00 Dextrose 12.5 gm 12.5 gm PRN Q15MIN PRN IV SEE COMMENTS; Start 08/03/16 at 18: 30 Sodium Chloride 1,000 ml @ 1,000 mls/hr Q1H PRN IV hypotension; Start 08/03/16 at 18:33; Stop 08/04/16 at 00:32; Status DC Sodium Chloride (Iv Sodium Chloride 0.9% 1000ml Bag) 1,000 ml @ 400 mls/hr Q2H30M PRN IV PATENCY; Start 08/03/16 at 18:33; Stop 08/04/16 at 06:32; Status DC Info 1 each 1 each PRN DAILY PRN MC SEE COMMENTS; Start 08/03/16 at 18:45; Stop 08/06/16 at 09:01; Status DC Sodium Chloride 1,000 ml @ 1,000 mls/hr Q1H PRN IV hypotension; Start 08/04/16 at 07:44; Stop 08/04/16 at 13:43; Status DC Albumin Human (Albuminar) 200 ml @ 200 mls/hr 1X PRN PRN IV Hypotension Last administered on 08/04/16 08:48; Start 08/04/16 at 07:45; Stop 08/04/16 at 13:44 ; Status DC Diphenhydramine HCl (Benadryl) 25 mg 1X PRN PRN IV ITCHING; Start 08/04/16 at 07:45; Stop 08/05/16 at 07:44; Status DC Diphenhydramine HCl (Benadryl) 25 mg 1X PRN PRN IV ITCHING; Start 08/04/16 at 07:45; Stop 08/05/16 at 07:44; Status DC Sodium Chloride (Normal Saline Flush) 10 ml 1X PRN PRN IV AP catheter pack; Start 08/04/16 at 07:45; Stop 08/05/16 at 07:44; Status DC Sodium Chloride 10 ml 10 ml 1X PRN PRN IV LOAN TELLER catheter pack; Start 08/04/16 at 07:45; Stop 08/05/16 at 07:44; Status DC Sodium Chloride (Iv Sodium Chloride 0.9% 1000ml Bag) 1,000 ml @ 400 mls/hr Q2H30M PRN IV PATENCY; Start 08/04/16 at 07:44; Stop 08/04/16 at 19:43; Status DC Info (PHARMACY MONITORING -- do not chart) 1 each PRN DAILY PRN MC SEE COMMENTS ; Start 08/04/16 at 07:45; Stop 08/06/16 at 09:02; Status DC Heparin Sodium (Porcine) 5,000 unit Q12HR SQ Last administered on 08/09/16 07: 44; Start 08/04/16 at 21:00 Sevelamer Carbonate 2.4 gm 2.4 gm BID FT Last administered on 08/09/16 07:46; Start 08/05/16 at 10:00 Sodium Chloride 1,000 ml @ 1,000 mls/hr Q1H PRN IV hypotension; Start 08/05/16 at 12:28; Stop 08/05/16 at 18:27; Status DC Albumin Human (Albuminar) 200 ml @ 200 mls/hr 1X PRN PRN IV Hypotension; Start 08/05/16 at 12:30; Stop 08/05/16 at 18:29; Status DC Sodium Chloride (Normal Saline Flush) 10 ml 1X PRN PRN IV AP catheter pack; Start 08/05/16 at 12:30; Stop 08/06/16 at 12:29; Status DC Sodium Chloride 10 ml 10 ml 1X PRN PRN IV LOAN TELLER catheter pack; Start 08/05/16 at 12:30; Stop 08/06/16 at 12:29; Status DC Sodium Chloride (Iv Sodium Chloride 0.9% 1000ml Bag) 1,000 ml @ 400 mls/hr Q2H30M PRN IV PATENCY; Start 08/05/16 at 12:28; Stop 08/06/16 at 00:27; Status DC Info 1 each 1 each PRN DAILY PRN MC SEE COMMENTS; Start 08/05/16 at 12:30; Stop 08/08/16 at 07:15; Status DC Propofol (Diprivan) 20 ml @ As Directed STK-MED ONCE IV ; Start 08/05/16 at 13: 01; Stop 08/05/16 at 13:02; Status DC Rocuronium [place] (Zemuron) 50 mg STK-MED ONCE .ROUTE ; Start 08/05/16 at 13:01 ; Stop 08/05/16 at 13:02; Status DC Dexamethasone Sodium Phosphate (Decadron) 20 mg STK-MED ONCE .ROUTE ; Start at 13:05; Stop 08/05/16 at 13:06; Status DC Famotidine (Pepcid) 20 mg STK-MED ONCE .ROUTE ; Start 08/05/16 at 13:05; Stop at 13:06; Status DC Ondansetron HCl (Zofran) 4 mg STK-MED ONCE .ROUTE ; Start 08/05/16 at 13:05; Stop 08/05/16 at 13:06; Status DC Midazolam HCl (Versed) 2 mg STK-MED ONCE .ROUTE ; Start 08/05/16 at 13:13; Stop 08/05/16 at 13:14; Status DC Vasopressin (Vasostrict) 20 unit STK-MED ONCE .ROUTE ; Start 08/05/16 at 13:58; Stop 08/05/16 at 13:59; Status DC Sodium Chloride (Sodium Chloride) 50 ml STK-MED ONCE IJ ; Start 08/05/16 at 13: 58; Stop 08/05/16 at 13:59; Status DC Sevoflurane (Ultane) 60 ml STK-MED ONCE IH ; Start 08/05/16 at 14:29; Stop 08/05 at 14:30; Status DC Alprazolam (Xanax) 0.25 mg PRN Q8HRS PRN PEG ANXIETY / AGITATION Last administered on 08/09/16 07:46; Start 08/05/16 at 14:45 Lidocaine HCl (Xylocaine-Mpf 1% Vial) 5 ml STK-MED ONCE INJ Last administered on 08/05/16 14:55; Start 08/05/16 at 14:55; Stop 08/05/16 at 15:11; Status DC Pantoprazole Sodium 40 mg 40 mg DAILYAC IVP Last administered on 08/09/16 07: 44; Start 08/06/16 at 07:30 Linezolid 300 ml @ 300 mls/hr Q12HR IV Last administered on 08/09/16 07:43; Start 08/06/16 at 11:30; Stop 08/09/16 at 07:57; Status DC Sodium Chloride 1,000 ml @ 1,000 mls/hr Q1H PRN IV hypotension; Start 08/06/16 at 13:17; Stop 08/06/16 at 19:16; Status DC Sodium Chloride (Iv Sodium Chloride 0.9% 1000ml Bag) 1,000 ml @ 400 mls/hr Q2H30M PRN IV PATENCY; Start 08/06/16 at 13:17; Stop 08/07/16 at 01:16; Status DC Info (PHARMACY MONITORING -- do not chart) 1 each PRN DAILY PRN MC SEE COMMENTS ; Start 08/06/16 at 13:30; Status UNV Darbepoetin Nick (Aranesp) 60 mcg WEEKLYHS SQ Last administered on 08/07/16 21 :04; Start 08/07/16 at 21:00 Zolpidem Tartrate 5 mg 5 mg HS PO Last administered on 08/08/16 21:15; Start 08/07/16 at 21:00 Sodium Chloride 1,000 ml @ 1,000 mls/hr Q1H PRN IV hypotension; Start 08/08/16 at 07:01; Stop 08/08/16 at 13:00; Status DC Albumin Human (Albuminar) 200 ml @ 200 mls/hr 1X PRN PRN IV Hypotension Last administered on 08/08/16 09:43; Start 08/08/16 at 07:15; Stop 08/08/16 at 13:14 ; Status DC Acetaminophen (Tylenol) 500 mg 1X PRN PRN PO MILD PAIN / TEMP; Start 08/08/16 at 07:15; Stop 08/09/16 at 07:14; Status DC Diphenhydramine HCl (Benadryl) 25 mg 1X PRN PRN IV ITCHING; Start 08/08/16 at 07:15; Stop 08/09/16 at 07:14; Status DC Diphenhydramine HCl (Benadryl) 25 mg 1X PRN PRN IV ITCHING; Start 08/08/16 at 07:15; Stop 08/09/16 at 07:14; Status DC Labetalol HCl (Normodyne) 10 mg PRN Q1HR PRN IVP SBP > 180; Start 08/08/16 at 07:15; Stop 08/09/16 at 07:14; Status DC Clonidine HCl 0.1 mg 0.1 mg 1X PRN PRN PO SBP > 180; Start 08/08/16 at 07:15; Stop 08/09/16 at 07:14; Status DC Sodium Chloride (Iv Sodium Chloride 0.9% 1000ml Bag) 1,000 ml @ 400 mls/hr Q2H30M PRN IV PATENCY; Start 08/08/16 at 07:01; Stop 08/08/16 at 19:00; Status DC Info (PHARMACY MONITORING -- do not chart) 1 each PRN DAILY PRN MC SEE COMMENTS ; Start 08/08/16 at 07:15 Amiodarone HCl 400 mg 400 mg DAILY PO Last administered on 08/09/16 07:45; Start 08/09/16 at 09:00 Piperacillin Sod/ Tazobactam Sod/ Sodium Chloride (Zosyn/Iv Sodium Chloride 0.9 % 50ml) 50 ml @ 100 mls/hr Q8HRS IV Last administered on 08/09/16 06:07; Start 08/08/16 at 22:00 Linezolid (Zyvox) 600 mg BID PEG ; Start 08/09/16 at 21:00 Lactobacillus Acidophilus (Bacid, [place]-Bid) 1 tab TIDWMEALS PO ; Start 08/09/16 at 08:00 Calcium Carbonate/ Glycine (Tums) 1,000 mg TID PO ; Start 08/09/16 at 09:00 Active Scripts Active Reported Amlodipine Besylate 5 Mg Tablet 5 Mg PO DAILY Pradaxa (Dabigatran Etexilate Mesylate) 150 Mg Capsule 1 Cap PO BID Metoprolol Succinate ( Xl ) (Metoprolol Succinate) 100 Mg Tab.er.24h 1 Tab PO DAILY Vitals/I & O Vital Sign - Last 24 Hours 08/08/16 08/08/16 08/08/16 08/08/16 10:00 10:54 10:55 10:55 Pulse 98 98 98 Resp 27 B/P 107/62 107/62 107/62 Pulse Ox 98 99 O2 Delivery Ventilator Ventilator 08/08/16 08/08/16 08/08/16 08/08/16 11:00 11:05 12:00 12:00 Temp 98.4 98.4 Pulse 94 98 Resp 29 32 B/P 104/56 111/65 Pulse Ox 100 100 O2 Delivery Ventilator Mechanical Ventilator 08/08/16 08/08/16 08/08/16 08/08/16 12:45 13:00 13:14 13:27 Pulse 100 Resp 32 B/P 106/62 Pulse Ox 100 100 100 O2 Delivery Tracheal Collar Ventilator Ventilator Ventilator O2 Flow Rate 19.0 08/08/16 08/08/16 08/08/16 08/08/16 13:40 14:00 15:00 16:00 Pulse 105 105 Resp 32 32 B/P 102/58 105/60 Pulse Ox 100 100 O2 Delivery Tracheal Collar Tracheal Collar Tracheal Collar Mechanical Ventilator O2 Flow Rate 10.0 08/08/16 08/08/16 08/08/16 08/08/16 16:00 16:50 17:00 18:00 Temp 98.3 98.3 Pulse 91 93 92 Resp 30 28 24 B/P 98/58 115/70 121/72 Pulse Ox 100 100 100 98 O2 Delivery Tracheal Collar Tracheal Collar Tracheal Collar Tracheal Collar O2 Flow Rate 19.0 08/08/16 08/08/16 08/08/16 08/08/16 19:00 20:00 20:00 20:34 Temp 97.6 97.6 Pulse 94 92 Resp 25 20 B/P 111/67 Pulse Ox 100 100 100 O2 Delivery Tracheal Collar Tracheal Collar Trach Collar Tracheal Collar O2 Flow Rate 10.0 08/08/16 08/08/16 08/08/16 08/08/16 21:00 21:05 21:15 22:00 Pulse 102 85 77 Resp 26 26 B/P 114/70 114/70 109/61 Pulse Ox 99 99 100 O2 Delivery Tracheal Collar Ventilator Tracheal Collar 08/08/16 08/08/16 08/08/16 08/08/16 23:00 23:38 23:59 23:59 Temp 97.7 97.7 Pulse 93 88 Resp 26 26 B/P 110/73 112/64 Pulse Ox 99 99 100 O2 Delivery Tracheal Collar Ventilator Mechanical Ventilator Ventilator 08/09/16 08/09/16 08/09/16 08/09/16 01:00 01:30 02:00 03:08 Pulse 93 85 82 Resp 26 22 19 B/P 118/68 87/54 117/58 Pulse Ox 99 100 100 97 O2 Delivery Ventilator Ventilator Ventilator Ventilator 08/09/16 08/09/16 08/09/16 08/09/16 03:40 04:00 04:00 05:00 Temp 98.9 98.9 Pulse 83 79 Resp 19 20 B/P 104/53 103/63 Pulse Ox 99 100 100 O2 Delivery Ventilator Ventilator Mechanical Ventilator Ventilator 08/09/16 08/09/16 08/09/16 08/09/16 05:30 06:00 07:00 07:45 Pulse 81 76 76 Resp 20 20 B/P 114/64 100/59 100/59 Pulse Ox 99 100 99 O2 Delivery Ventilator Ventilator Ventilator 08/09/16 08/09/16 08/09/16 08/09/16 07:46 08:00 08:00 08:17 Temp 98.1 98.1 Pulse 76 90 Resp 27 B/P 100/59 110/63 Pulse Ox 99 100 O2 Delivery Trach Collar Ventilator Ventilator 08/09/16 09:00 Pulse 75 Resp 20 B/P 95/55 Pulse Ox 100 O2 Delivery Ventilator Intake and Output 08/08/16 08/08/16 08/09/16 15:00 23:00 07:00 Intake Total 480 ml 1015 ml 707 ml Output Total 113 ml 150 ml 225 ml Balance 367 ml 865 ml 482 ml Problem List Problems Medical Problems: (1) CAD (coronary artery disease), [place] coronary artery Status: Acute (2) Chest pain Status: Acute (3) STEMI (ST elevation myocardial infarction) Status: Acute Assessment Stable post-PEG. Tolerating TF. Plan of Care: Continue current Tx, Mgmt KEVAN HADDAD MD Aug 09, 2016 09:40
--- NOTE | 2016-08-09 12:20 | PDOC ---
PULMONARY PROGRESS NOTES Subjective s/p trach 08/05 awake, off sedation Vitals Vital Signs Date Time Temp Pulse Resp B/P Pulse Ox O2 Delivery O2 Flow Rate FiO2 08/09/16 12:04 100 Tracheal Collar 10.0 08/09/16 11:00 83 28 111/68 08/09/16 08:00 98.1 98.1 General: Alert HEENT: Other (nc at perrl orally intubated nose clease. neck, no lap thyromegaly) Lungs: Clear, Other (No chest retractions were present.) Cardiovascular: Other (tachy) Abdomen: Soft, Non-tender, Other Extremities: Other (jaundice) Skin: Warm Labs Laboratory Tests Test 08/07/16 16:36 08/07/16 18:29 08/08/16 00:17 08/08/16 05:00 Glucose (Fingerstick) 170mg/dL (70-99) 163mg/dL (70-99) Clostridium difficile Toxin (PCR) Negative (Negative) Vitamin B12 Level 895pg/mL (247-911) Test 08/08/16 06:20 08/08/16 09:00 08/08/16 10:52 08/08/16 17:15 White Blood Count 5.2x10^3/uL (4.0-11.0) Red Blood Count 2.49x10^6/uL (4.30-5.70) Hemoglobin 7.9g/dL (13.0-17.5) Hematocrit 24.1% (39.0-53.0) Mean Corpuscular Volume 97fL (79-100) Mean Corpuscular Hemoglobin 32pg (25-35) Mean Corpuscular Hemoglobin Concent 33g/dL (31-37) Red Cell Distribution Width 16.6% (11.5-14.5) Platelet Count 120x10^3/uL (140-400) Neutrophils (%) (Auto) 85% (31-73) Lymphocytes (%) (Auto) 6% (24-48) Monocytes (%) (Auto) 8% (0-9) Eosinophils (%) (Auto) 0% (0-3) Basophils (%) (Auto) 0% (0-3) Neutrophils # (Auto) 4.4x10^3uL (1.8-7.7) Lymphocytes # (Auto) 0.3x10^3/uL (1.0-4.8) Monocytes # (Auto) 0.4x10^3/uL (0.0-1.1) Eosinophils # (Auto) 0.0x10^3/uL (0.0-0.7) Basophils # (Auto) 0.0x10^3/uL (0.0-0.2) Sodium Level 142mmol/L (136-145) Potassium Level 4.2mmol/L (3.5-5.1) Chloride Level 100mmol/L (98-107) Carbon Dioxide Level 24mmol/L (21-32) Anion Gap 18 (6-14) Blood Urea Nitrogen 120mg/dL (8-26) Creatinine 4.7mg/dL (0.7-1.3) Estimated GFR (Cockcroft-Gault) 12.9 Glucose Level 154mg/dL (70-99) Calcium Level 7.6mg/dL (8.5-10.1) Phosphorus Level 6.1mg/dL (2.6-4.7) Albumin 2.2g/dL (3.4-5.0) O2 Saturation 98% (92-99) Arterial Blood pH 7.50 (7.35-7.45) Arterial Blood pCO2 at Patient Temp 30mmHg (35-46) Arterial Blood pO2 at Patient Temp 115mmHg (75-108) Arterial Blood HCO3 23mmol/L (21-28) Arterial Blood Base Excess 0mmol/L (-3-3) FiO2 40 Glucose (Fingerstick) 130mg/dL (70-99) 134mg/dL (70-99) Test 08/09/16 00:13 08/09/16 05:00 08/09/16 06:01 08/09/16 06:09 Glucose (Fingerstick) 141mg/dL (70-99) 118mg/dL (70-99) White Blood Count 6.0x10^3/uL (4.0-11.0) Red Blood Count 2.37x10^6/uL (4.30-5.70) Hemoglobin 7.6g/dL (13.0-17.5) Hematocrit 22.6% (39.0-53.0) Mean Corpuscular Volume 96fL (79-100) Mean Corpuscular Hemoglobin 32pg (25-35) Mean Corpuscular Hemoglobin Concent 34g/dL (31-37) Red Cell Distribution Width 17.6% (11.5-14.5) Platelet Count 123x10^3/uL (140-400) Neutrophils (%) (Auto) 87% (31-73) Lymphocytes (%) (Auto) 6% (24-48) Monocytes (%) (Auto) 6% (0-9) Eosinophils (%) (Auto) 1% (0-3) Basophils (%) (Auto) 0% (0-3) Neutrophils # (Auto) 5.2x10^3uL (1.8-7.7) Lymphocytes # (Auto) 0.4x10^3/uL (1.0-4.8) Monocytes # (Auto) 0.4x10^3/uL (0.0-1.1) Eosinophils # (Auto) 0.0x10^3/uL (0.0-0.7) Basophils # (Auto) 0.0x10^3/uL (0.0-0.2) Sodium Level 138mmol/L (136-145) Potassium Level 4.4mmol/L (3.5-5.1) Chloride Level 98mmol/L (98-107) Carbon Dioxide Level 26mmol/L (21-32) Anion Gap 14 (6-14) Blood Urea Nitrogen 93mg/dL (8-26) Creatinine 3.9mg/dL (0.7-1.3) Estimated GFR (Cockcroft-Gault) 16.0 BUN/Creatinine Ratio 24 (6-20) Glucose Level 126mg/dL (70-99) Calcium Level 8.0mg/dL (8.5-10.1) Phosphorus Level 6.6mg/dL (2.6-4.7) Total Bilirubin 2.3mg/dL (0.2-1.0) Aspartate Amino Transf (AST/SGOT) 176U/L (15-37) Alanine Aminotransferase (ALT/SGPT) 157U/L (16-63) Alkaline Phosphatase 104U/L (46-116) Total Protein 5.4g/dL (6.4-8.2) Albumin 2.2g/dL (3.4-5.0) Albumin/Globulin Ratio 0.7 (1.0-1.7) Test 08/09/16 08:30 Prothrombin Time 16.6SEC (11.7-14.0) Prothromb Time International Ratio 1.4 (0.8-1.1) Laboratory Tests Test 08/08/16 17:15 08/09/16 00:13 08/09/16 05:00 08/09/16 06:01 Glucose (Fingerstick) 134mg/dL (70-99) 141mg/dL (70-99) 118mg/dL (70-99) White Blood Count 6.0x10^3/uL (4.0-11.0) Red Blood Count 2.37x10^6/uL (4.30-5.70) Hemoglobin 7.6g/dL (13.0-17.5) Hematocrit 22.6% (39.0-53.0) Mean Corpuscular Volume 96fL (79-100) Mean Corpuscular Hemoglobin 32pg (25-35) Mean Corpuscular Hemoglobin Concent 34g/dL (31-37) Red Cell Distribution Width 17.6% (11.5-14.5) Platelet Count 123x10^3/uL (140-400) Neutrophils (%) (Auto) 87% (31-73) Lymphocytes (%) (Auto) 6% (24-48) Monocytes (%) (Auto) 6% (0-9) Eosinophils (%) (Auto) 1% (0-3) Basophils (%) (Auto) 0% (0-3) Neutrophils # (Auto) 5.2x10^3uL (1.8-7.7) Lymphocytes # (Auto) 0.4x10^3/uL (1.0-4.8) Monocytes # (Auto) 0.4x10^3/uL (0.0-1.1) Eosinophils # (Auto) 0.0x10^3/uL (0.0-0.7) Basophils # (Auto) 0.0x10^3/uL (0.0-0.2) Test 08/09/16 06:09 08/09/16 08:30 Sodium Level 138mmol/L (136-145) Potassium Level 4.4mmol/L (3.5-5.1) Chloride Level 98mmol/L (98-107) Carbon Dioxide Level 26mmol/L (21-32) Anion Gap 14 (6-14) Blood Urea Nitrogen 93mg/dL (8-26) Creatinine 3.9mg/dL (0.7-1.3) Estimated GFR (Cockcroft-Gault) 16.0 BUN/Creatinine Ratio 24 (6-20) Glucose Level 126mg/dL (70-99) Calcium Level 8.0mg/dL (8.5-10.1) Phosphorus Level 6.6mg/dL (2.6-4.7) Total Bilirubin 2.3mg/dL (0.2-1.0) Aspartate Amino Transf (AST/SGOT) 176U/L (15-37) Alanine Aminotransferase (ALT/SGPT) 157U/L (16-63) Alkaline Phosphatase 104U/L (46-116) Total Protein 5.4g/dL (6.4-8.2) Albumin 2.2g/dL (3.4-5.0) Albumin/Globulin Ratio 0.7 (1.0-1.7) Prothrombin Time 16.6SEC (11.7-14.0) Prothromb Time International Ratio 1.4 (0.8-1.1) Medications Active Scripts Medications Dose Route/Sig Days Date Category Amlodipine Besylate 5 Mg Tablet 5 Mg PO DAILY 07/20/16 Reported Pradaxa (Dabigatran Etexilate Mesylate) 150 Mg Capsule 1 Cap PO BID 07/20/16 Reported Metoprolol Succinate ( Xl ) (Metoprolol Succinate) 100 Mg Tab.er.24h 1 Tab PO DAILY 07/20/16 Reported Comments cxr reviewed,08/06 small LLL effusion Impression . 1. Expected respiratory failure, status post coronary artery bypass grafting. 2. Cardiogenic shock. followed by septic shock, improved 3. Early post-myocardial infarction complicated with ventricular fibrillation , s/p multiple shocks. 4. Status post implantation of Impella from mechanical circulating support. 5. 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 6. Tobacco use in remission. Spirometry revealed an FEV1, which was 3.2 liters preoperatively. 7. Nutrition, currently on tube feeding. 8. History of hypertension. 9. Severe cardiomyopathy ejection fraction 25%. 10. Peripheral artery disease. 11. Atrial fibrillation. 12. Encephalopathy multifactorial (hepatic, metabolic), improved 13. High grade fever, sepsis, ? source, less likely lungs.ct chest reviewed. responding to antibiotics 14. Abnormal LFT due to sepsis, improving 15. renal failure , on HD Plan . 1. s/p trach 08/05 1. CPAP trial again today, may do T-collar again today 2. Continue nutritional support with tube feeding. 3. off pressors, Pt does not tolerate dobutamine(increase HR) 4. HD 5. Continue BS empiric antibiotics. 6. repeat LFT d/w VANESSA MAYNARD MD Aug 09, 2016 12:20
--- NOTE | 2016-08-09 13:45 | PDOC ---
CARDIO Progress Notes Date and Time Date of Service 08/09/16 Time of Evaluation 1115 Subjective Subjective: No Chest Pain, No shortness of breath, No Palpitations, Other ( sitting up in chair. c/o fatigue ) Comments: off ventilator since 08/08 at 1000 Vitals Vitals Vital Signs Date Time Temp Pulse Resp B/P Pulse Ox O2 Delivery O2 Flow Rate FiO2 08/09/16 12:04 100 Tracheal Collar 10.0 08/09/16 11:00 83 28 111/68 08/09/16 08:00 98.1 98.1 Weight Weight [ ] Stability Assessment Stability Assess.: unstable for transfer (Intesive V. sign monit. req) Input and Output Intake and Output Intake and Output 08/09/16 07:00 Intake Total 2252 ml Output Total 488 ml Balance 1764 ml IV Total 800 ml Tube Feeding 972 ml Other 480 ml Output Urine Total 188 ml Stool Total 300 ml Gastric Drainage Total 0 ml Laboratory Labs Laboratory Tests Test 08/08/16 17:15 08/09/16 00:13 08/09/16 05:00 08/09/16 06:01 Glucose (Fingerstick) 134mg/dL (70-99) 141mg/dL (70-99) 118mg/dL (70-99) White Blood Count 6.0x10^3/uL (4.0-11.0) Red Blood Count 2.37x10^6/uL (4.30-5.70) Hemoglobin 7.6g/dL (13.0-17.5) Hematocrit 22.6% (39.0-53.0) Mean Corpuscular Volume 96fL (79-100) Mean Corpuscular Hemoglobin 32pg (25-35) Mean Corpuscular Hemoglobin Concent 34g/dL (31-37) Red Cell Distribution Width 17.6% (11.5-14.5) Platelet Count 123x10^3/uL (140-400) Neutrophils (%) (Auto) 87% (31-73) Lymphocytes (%) (Auto) 6% (24-48) Monocytes (%) (Auto) 6% (0-9) Eosinophils (%) (Auto) 1% (0-3) Basophils (%) (Auto) 0% (0-3) Neutrophils # (Auto) 5.2x10^3uL (1.8-7.7) Lymphocytes # (Auto) 0.4x10^3/uL (1.0-4.8) Monocytes # (Auto) 0.4x10^3/uL (0.0-1.1) Eosinophils # (Auto) 0.0x10^3/uL (0.0-0.7) Basophils # (Auto) 0.0x10^3/uL (0.0-0.2) Test 08/09/16 06:09 08/09/16 08:30 Sodium Level 138mmol/L (136-145) Potassium Level 4.4mmol/L (3.5-5.1) Chloride Level 98mmol/L (98-107) Carbon Dioxide Level 26mmol/L (21-32) Anion Gap 14 (6-14) Blood Urea Nitrogen 93mg/dL (8-26) Creatinine 3.9mg/dL (0.7-1.3) Estimated GFR (Cockcroft-Gault) 16.0 BUN/Creatinine Ratio 24 (6-20) Glucose Level 126mg/dL (70-99) Calcium Level 8.0mg/dL (8.5-10.1) Phosphorus Level 6.6mg/dL (2.6-4.7) Total Bilirubin 2.3mg/dL (0.2-1.0) Aspartate Amino Transf (AST/SGOT) 176U/L (15-37) Alanine Aminotransferase (ALT/SGPT) 157U/L (16-63) Alkaline Phosphatase 104U/L (46-116) Total Protein 5.4g/dL (6.4-8.2) Albumin 2.2g/dL (3.4-5.0) Albumin/Globulin Ratio 0.7 (1.0-1.7) Prothrombin Time 16.6SEC (11.7-14.0) Prothromb Time International Ratio 1.4 (0.8-1.1) Microbiology Micro Microbiology 08/02/16 Blood Culture - Final, Complete NO GROWTH AFTER 5 DAYS 08/03/16 Sputum Culture - Final, Complete 08/03/16 Sputum Result 1 - Final, Complete 08/03/16 Sputum Result 2 - Final, Complete 08/03/16 Antimicrobic Susceptibility - Final, Complete 08/02/16 Urine Culture - Final, Complete 08/02/16 Urine Culture Result 1 (MILEY) - Final, Complete 08/03/16 Gram Stain - Final, Complete Case Discussion Case Discussed with: Family, Other (RN) Continued Hospitalization Reason for continued Hospitali: IVABX, abnormal labs Physical Exam HEENT: Neck Supple W Full Motion Chest: Symmetric LUNGS: Other (diminished bases. trach ) Heart: S1S2, irregularly irregular, other (AFIB/ flutter with controlled rate) Abdomen: Soft N/T Extremities: Other (1-2+ bilateral UE. trace LE edema ) Neurology: alert, follow commands, other (awake) Assessment Assessment 1. STEMI CABG on 07/25/2016 with FLETCHER to LAD; SVG to LAD; SVG to OM1 and SVG to RPDA VF arrest post-op with post-op KS no significant ectopies overnight. Amiodarone decreased to daily continue supportive care okay to transfer to [facility] per CV standpoint 2. Cardiogenic shock LVEF ~ 25-30% post CABG Off pressors. Maintaining low-normotensive BP ACEi on hold currently with JAKE and hypotension 3. ischemic cardiomyopathy/anasarca LVEF mildly depressed @ 45% on echo pre-op then decreased as above Fluid off loading per HD presently compensated 4. acute respiratory failure S/P trach 08/05 per pulm 5. JAKE continues on HD tunneled cath to be placed today per nephrology 6. sepsis abx per ID CT chest/abd/pelvis 08/03/16 with perihepatic fluid; fluid in the paracolic gutter and anasarca suggested CT chest suggestive of atelectasis or pneumonia 7. HLD statin therapy 8. atrial fib remains controlled Unable to be aggressive with OAC due to #9 9. small right frontal SDH decreased on CT scan done 08/03/2016 10. metabolic encephalopathy improved 11. Critical illness neuropathy neuro following 12. Postop anemia Hgb 7.6 ASHLEY TAYLOR [facility] RIVETER Aug 09, 2016 13:45
--- NOTE | 2016-08-09 13:59 | PDOC ---
PULMONARY PROGRESS NOTES Subjective s/p trach 08/05 follows some commands up in chair Vitals Vital Signs Date Time Temp Pulse Resp B/P Pulse Ox O2 Delivery O2 Flow Rate FiO2 08/09/16 12:04 100 Tracheal Collar 10.0 08/09/16 11:00 83 28 111/68 08/09/16 08:00 98.1 98.1 General: Alert HEENT: Other (nc at perrl orally intubated nose clease. neck, no lap thyromegaly) Lungs: Clear Cardiovascular: S1, S2, Other Abdomen: Soft Extremities: Other (edema) Skin: Warm Labs Laboratory Tests Test 08/07/16 16:36 08/07/16 18:29 08/08/16 00:17 08/08/16 05:00 Glucose (Fingerstick) 170mg/dL (70-99) 163mg/dL (70-99) Clostridium difficile Toxin (PCR) Negative (Negative) Vitamin B12 Level 895pg/mL (247-911) Test 08/08/16 06:20 08/08/16 09:00 08/08/16 10:52 08/08/16 17:15 White Blood Count 5.2x10^3/uL (4.0-11.0) Red Blood Count 2.49x10^6/uL (4.30-5.70) Hemoglobin 7.9g/dL (13.0-17.5) Hematocrit 24.1% (39.0-53.0) Mean Corpuscular Volume 97fL (79-100) Mean Corpuscular Hemoglobin 32pg (25-35) Mean Corpuscular Hemoglobin Concent 33g/dL (31-37) Red Cell Distribution Width 16.6% (11.5-14.5) Platelet Count 120x10^3/uL (140-400) Neutrophils (%) (Auto) 85% (31-73) Lymphocytes (%) (Auto) 6% (24-48) Monocytes (%) (Auto) 8% (0-9) Eosinophils (%) (Auto) 0% (0-3) Basophils (%) (Auto) 0% (0-3) Neutrophils # (Auto) 4.4x10^3uL (1.8-7.7) Lymphocytes # (Auto) 0.3x10^3/uL (1.0-4.8) Monocytes # (Auto) 0.4x10^3/uL (0.0-1.1) Eosinophils # (Auto) 0.0x10^3/uL (0.0-0.7) Basophils # (Auto) 0.0x10^3/uL (0.0-0.2) Sodium Level 142mmol/L (136-145) Potassium Level 4.2mmol/L (3.5-5.1) Chloride Level 100mmol/L (98-107) Carbon Dioxide Level 24mmol/L (21-32) Anion Gap 18 (6-14) Blood Urea Nitrogen 120mg/dL (8-26) Creatinine 4.7mg/dL (0.7-1.3) Estimated GFR (Cockcroft-Gault) 12.9 Glucose Level 154mg/dL (70-99) Calcium Level 7.6mg/dL (8.5-10.1) Phosphorus Level 6.1mg/dL (2.6-4.7) Albumin 2.2g/dL (3.4-5.0) O2 Saturation 98% (92-99) Arterial Blood pH 7.50 (7.35-7.45) Arterial Blood pCO2 at Patient Temp 30mmHg (35-46) Arterial Blood pO2 at Patient Temp 115mmHg (75-108) Arterial Blood HCO3 23mmol/L (21-28) Arterial Blood Base Excess 0mmol/L (-3-3) FiO2 40 Glucose (Fingerstick) 130mg/dL (70-99) 134mg/dL (70-99) Test 08/09/16 00:13 08/09/16 05:00 08/09/16 06:01 08/09/16 06:09 Glucose (Fingerstick) 141mg/dL (70-99) 118mg/dL (70-99) White Blood Count 6.0x10^3/uL (4.0-11.0) Red Blood Count 2.37x10^6/uL (4.30-5.70) Hemoglobin 7.6g/dL (13.0-17.5) Hematocrit 22.6% (39.0-53.0) Mean Corpuscular Volume 96fL (79-100) Mean Corpuscular Hemoglobin 32pg (25-35) Mean Corpuscular Hemoglobin Concent 34g/dL (31-37) Red Cell Distribution Width 17.6% (11.5-14.5) Platelet Count 123x10^3/uL (140-400) Neutrophils (%) (Auto) 87% (31-73) Lymphocytes (%) (Auto) 6% (24-48) Monocytes (%) (Auto) 6% (0-9) Eosinophils (%) (Auto) 1% (0-3) Basophils (%) (Auto) 0% (0-3) Neutrophils # (Auto) 5.2x10^3uL (1.8-7.7) Lymphocytes # (Auto) 0.4x10^3/uL (1.0-4.8) Monocytes # (Auto) 0.4x10^3/uL (0.0-1.1) Eosinophils # (Auto) 0.0x10^3/uL (0.0-0.7) Basophils # (Auto) 0.0x10^3/uL (0.0-0.2) Sodium Level 138mmol/L (136-145) Potassium Level 4.4mmol/L (3.5-5.1) Chloride Level 98mmol/L (98-107) Carbon Dioxide Level 26mmol/L (21-32) Anion Gap 14 (6-14) Blood Urea Nitrogen 93mg/dL (8-26) Creatinine 3.9mg/dL (0.7-1.3) Estimated GFR (Cockcroft-Gault) 16.0 BUN/Creatinine Ratio 24 (6-20) Glucose Level 126mg/dL (70-99) Calcium Level 8.0mg/dL (8.5-10.1) Phosphorus Level 6.6mg/dL (2.6-4.7) Total Bilirubin 2.3mg/dL (0.2-1.0) Aspartate Amino Transf (AST/SGOT) 176U/L (15-37) Alanine Aminotransferase (ALT/SGPT) 157U/L (16-63) Alkaline Phosphatase 104U/L (46-116) Total Protein 5.4g/dL (6.4-8.2) Albumin 2.2g/dL (3.4-5.0) Albumin/Globulin Ratio 0.7 (1.0-1.7) Test 08/09/16 08:30 Prothrombin Time 16.6SEC (11.7-14.0) Prothromb Time International Ratio 1.4 (0.8-1.1) Laboratory Tests Test 08/08/16 17:15 08/09/16 00:13 08/09/16 05:00 08/09/16 06:01 Glucose (Fingerstick) 134mg/dL (70-99) 141mg/dL (70-99) 118mg/dL (70-99) White Blood Count 6.0x10^3/uL (4.0-11.0) Red Blood Count 2.37x10^6/uL (4.30-5.70) Hemoglobin 7.6g/dL (13.0-17.5) Hematocrit 22.6% (39.0-53.0) Mean Corpuscular Volume 96fL (79-100) Mean Corpuscular Hemoglobin 32pg (25-35) Mean Corpuscular Hemoglobin Concent 34g/dL (31-37) Red Cell Distribution Width 17.6% (11.5-14.5) Platelet Count 123x10^3/uL (140-400) Neutrophils (%) (Auto) 87% (31-73) Lymphocytes (%) (Auto) 6% (24-48) Monocytes (%) (Auto) 6% (0-9) Eosinophils (%) (Auto) 1% (0-3) Basophils (%) (Auto) 0% (0-3) Neutrophils # (Auto) 5.2x10^3uL (1.8-7.7) Lymphocytes # (Auto) 0.4x10^3/uL (1.0-4.8) Monocytes # (Auto) 0.4x10^3/uL (0.0-1.1) Eosinophils # (Auto) 0.0x10^3/uL (0.0-0.7) Basophils # (Auto) 0.0x10^3/uL (0.0-0.2) Test 08/09/16 06:09 08/09/16 08:30 Sodium Level 138mmol/L (136-145) Potassium Level 4.4mmol/L (3.5-5.1) Chloride Level 98mmol/L (98-107) Carbon Dioxide Level 26mmol/L (21-32) Anion Gap 14 (6-14) Blood Urea Nitrogen 93mg/dL (8-26) Creatinine 3.9mg/dL (0.7-1.3) Estimated GFR (Cockcroft-Gault) 16.0 BUN/Creatinine Ratio 24 (6-20) Glucose Level 126mg/dL (70-99) Calcium Level 8.0mg/dL (8.5-10.1) Phosphorus Level 6.6mg/dL (2.6-4.7) Total Bilirubin 2.3mg/dL (0.2-1.0) Aspartate Amino Transf (AST/SGOT) 176U/L (15-37) Alanine Aminotransferase (ALT/SGPT) 157U/L (16-63) Alkaline Phosphatase 104U/L (46-116) Total Protein 5.4g/dL (6.4-8.2) Albumin 2.2g/dL (3.4-5.0) Albumin/Globulin Ratio 0.7 (1.0-1.7) Prothrombin Time 16.6SEC (11.7-14.0) Prothromb Time International Ratio 1.4 (0.8-1.1) Medications Active Scripts Medications Dose Route/Sig Days Date Category Amlodipine Besylate 5 Mg Tablet 5 Mg PO DAILY 07/20/16 Reported Pradaxa (Dabigatran Etexilate Mesylate) 150 Mg Capsule 1 Cap PO BID 07/20/16 Reported Metoprolol Succinate ( Xl ) (Metoprolol Succinate) 100 Mg Tab.er.24h 1 Tab PO DAILY 07/20/16 Reported Impression . 1. Expected respiratory failure, status post coronary artery bypass grafting. 2. Cardiogenic shock. followed by septic shock, improved 3. Early post-myocardial infarction complicated with ventricular fibrillation , s/p multiple shocks. 4. Status post implantation of Impella from mechanical circulating support. 5. 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 6. Tobacco use in remission. Spirometry revealed an FEV1, which was 3.2 liters preoperatively. 7. Nutrition, currently on tube feeding. 8. History of hypertension. 9. Severe cardiomyopathy ejection fraction 25%. 10. Peripheral artery disease. 11. Atrial fibrillation. 12. Encephalopathy multifactorial (hepatic, metabolic), improved 13. High grade fever, sepsis, ? source, less likely lungs.ct chest reviewed. responding to antibiotics 14. Abnormal LFT due to sepsis, improving 15. renal failure , on HD Plan . 1. s/p trach 08/05 1. t espinal as tolerated 2. Continue nutritional support with tube feeding. 3. needs pt/ot 4. HD spoke with VANESSA GREY MD Aug 09, 2016 13:59
--- NOTE | 2016-08-09 14:03 | PDOC ---
PROGRESS NOTES Assessment Assessment Metabolic encephalopathy. Respiratory failure. Small right SDH ? Infarct suspicious. S/p CABg CAD NM VT PAD Cardiomyopathy. AFib CHF, EF 25% Cardiogenic shock. DM Hypocalcemia. Anemia. 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 RECOMMENDATIONS/PLAN: Repeat HCT when stable. He has been on ASA 325 mg daily. Continue cardiac and medical treatment. OT/PT Rehab. MRI was considered to confirm infarct if there was one, but would not change treatment and care. SUBJECTIVE: Awake from time to time. OBJECTIVE: Unable to communicate. PAST MEDICAL AND SURGICAL HISTORY: Please see H&P ALLERGY: Reviewed. MEDICATIONS: Refer to [facility] REVIEW OF SYSTEMS: Constitutional: weakness. Head: No recent traumatic brain or head injury. Skin: Edema noted. Ear: No infection Eyes: No vision loss. Nose: No bleeding or purulent discharges. Hearing: No hearing decrease. Neck: No injury. Cardiac: NM, s/p CABG, AFib, HTN Pulmonary: Respiratory failure. GI: No GI Ulcer, GI bleeding Urinary/genital: UTI. Endocrine: Diabetes Mellitus. Skeletomuscular: Generalized weakness. Neurological: see HP. Psychiatric: Denies drug use/abuse. Otherwise, not [id number] review of systems. PHYSICAL EXAMINATION: General appearance in subacute distress. HEENT: Normocephalic and nontraumatic. Eyes, nose, ears, and throat are unremarkable. Hearing decrease. Neck is supple. No lymphadenopathy. No Crepitus. Cardiovascular: S1, S2, irregular rate and rhythm. Pulmonary: On vent. Abdomen: Bowel sounds are positive. Extremities: Edema. NEUROLOGICAL EXAMINATION: Awake. Sitting chair. Not oriented to time, place but knows person. PERRL. EOMI slow. CN: no acute focal findings. Muscle tone: Decreased. Muscle strength: 2+ distal UE, 2 distal LE. DTR: 1 UE, 0-1 at knee. Plantar reflex: Neutral response bilaterally Gait: Unable to walk. Sensory exam: Minimal response to stimuli but was due to motor weakness. Not able to access cerebellar signs. F-T-N test not performed due to not able to perform the test. Objective Objective Vital Signs Date Time Temp Pulse Resp B/P Pulse Ox O2 Delivery O2 Flow Rate FiO2 08/09/16 12:04 100 Tracheal Collar 10.0 08/09/16 11:00 83 28 111/68 08/09/16 08:00 98.1 98.1 Intake and Output 08/09/16 07:00 Intake Total 2252 ml Output Total 488 ml Balance 1764 ml IV Total 800 ml Tube Feeding 972 ml Other 480 ml Output Urine Total 188 ml Stool Total 300 ml Gastric Drainage Total 0 ml Vitals Signs Vitals VS - Last 72 Hours, by Label Date Time Temp Pulse Resp B/P Pulse Ox O2 Delivery O2 Flow Rate FiO2 08/09/16 12:04 100 Tracheal Collar 10.0 08/09/16 11:00 83 28 111/68 100 Tracheal Collar 08/09/16 10:00 92 20 112/63 100 Tracheal Collar 08/09/16 09:00 75 20 95/55 100 Ventilator 08/09/16 08:17 100 Ventilator 08/09/16 08:00 98.1 90 27 110/63 99 Ventilator 98.1 08/09/16 08:00 Trach Collar 08/09/16 07:46 76 100/59 08/09/16 07:45 76 100/59 08/09/16 07:00 76 20 100/59 99 Ventilator 08/09/16 06:00 81 20 114/64 100 Ventilator 08/09/16 05:30 99 Ventilator 08/09/16 05:00 79 20 103/63 100 Ventilator 08/09/16 04:00 Mechanical Ventilator 08/09/16 04:00 98.9 83 19 104/53 100 Ventilator 98.9 08/09/16 03:40 99 Ventilator 08/09/16 03:08 82 19 117/58 97 Ventilator 08/09/16 02:00 85 22 87/54 100 Ventilator 08/09/16 01:30 100 Ventilator 08/09/16 01:00 93 26 118/68 99 Ventilator 08/08/16 23:59 97.7 88 26 112/64 100 Ventilator 97.7 08/08/16 23:59 Mechanical Ventilator 08/08/16 23:38 99 Ventilator 08/08/16 23:00 93 26 110/73 99 Tracheal Collar 08/08/16 22:00 77 26 109/61 100 Tracheal Collar 08/08/16 21:15 85 114/70 08/08/16 21:05 99 Ventilator 08/08/16 21:00 102 26 114/70 99 Tracheal Collar 08/08/16 20:34 100 Tracheal Collar 10.0 08/08/16 20:00 Trach Collar 08/08/16 20:00 97.6 92 20 111/67 100 Tracheal Collar 97.6 08/08/16 19:00 94 25 100 Tracheal Collar 08/08/16 18:00 92 24 121/72 98 Tracheal Collar 08/08/16 17:00 93 28 115/70 100 Tracheal Collar 08/08/16 16:50 100 Tracheal Collar 19.0 08/08/16 16:00 98.3 91 30 98/58 100 Tracheal Collar 98.3 08/08/16 16:00 Mechanical Ventilator 08/08/16 15:00 105 32 105/60 100 Tracheal Collar 08/08/16 14:00 105 32 102/58 100 Tracheal Collar 08/08/16 13:40 Tracheal Collar 10.0 08/08/16 13:27 Ventilator 08/08/16 13:14 100 Ventilator 08/08/16 13:00 100 32 106/62 100 Ventilator 08/08/16 12:45 100 Tracheal Collar 19.0 08/08/16 12:00 Mechanical Ventilator 08/08/16 12:00 98 32 111/65 100 Ventilator 08/08/16 11:05 98.4 98.4 08/08/16 11:00 94 29 104/56 100 08/08/16 10:55 99 Ventilator 08/08/16 10:55 98 107/62 08/08/16 10:54 98 107/62 08/08/16 10:00 98 27 107/62 98 Ventilator 08/08/16 09:30 Ventilator 08/08/16 09:00 106 28 95/60 99 BiPAP/CPAP 08/08/16 09:00 100 Ventilator 08/08/16 08:00 110 28 125/67 99 BiPAP/CPAP 08/08/16 07:45 Mechanical Ventilator 08/08/16 07:00 98.0 94 33 114/70 99 BiPAP/CPAP 98.0 Laboratory Laboratory Laboratory Tests Test 08/08/16 17:15 08/09/16 00:13 08/09/16 05:00 08/09/16 06:01 Glucose (Fingerstick) 134mg/dL (70-99) 141mg/dL (70-99) 118mg/dL (70-99) White Blood Count 6.0x10^3/uL (4.0-11.0) Red Blood Count 2.37x10^6/uL (4.30-5.70) Hemoglobin 7.6g/dL (13.0-17.5) Hematocrit 22.6% (39.0-53.0) Mean Corpuscular Volume 96fL (79-100) Mean Corpuscular Hemoglobin 32pg (25-35) Mean Corpuscular Hemoglobin Concent 34g/dL (31-37) Red Cell Distribution Width 17.6% (11.5-14.5) Platelet Count 123x10^3/uL (140-400) Neutrophils (%) (Auto) 87% (31-73) Lymphocytes (%) (Auto) 6% (24-48) Monocytes (%) (Auto) 6% (0-9) Eosinophils (%) (Auto) 1% (0-3) Basophils (%) (Auto) 0% (0-3) Neutrophils # (Auto) 5.2x10^3uL (1.8-7.7) Lymphocytes # (Auto) 0.4x10^3/uL (1.0-4.8) Monocytes # (Auto) 0.4x10^3/uL (0.0-1.1) Eosinophils # (Auto) 0.0x10^3/uL (0.0-0.7) Basophils # (Auto) 0.0x10^3/uL (0.0-0.2) Test 08/09/16 06:09 08/09/16 08:30 Sodium Level 138mmol/L (136-145) Potassium Level 4.4mmol/L (3.5-5.1) Chloride Level 98mmol/L (98-107) Carbon Dioxide Level 26mmol/L (21-32) Anion Gap 14 (6-14) Blood Urea Nitrogen 93mg/dL (8-26) Creatinine 3.9mg/dL (0.7-1.3) Estimated GFR (Cockcroft-Gault) 16.0 BUN/Creatinine Ratio 24 (6-20) Glucose Level 126mg/dL (70-99) Calcium Level 8.0mg/dL (8.5-10.1) Phosphorus Level 6.6mg/dL (2.6-4.7) Total Bilirubin 2.3mg/dL (0.2-1.0) Aspartate Amino Transf (AST/SGOT) 176U/L (15-37) Alanine Aminotransferase (ALT/SGPT) 157U/L (16-63) Alkaline Phosphatase 104U/L (46-116) Total Protein 5.4g/dL (6.4-8.2) Albumin 2.2g/dL (3.4-5.0) Albumin/Globulin Ratio 0.7 (1.0-1.7) Prothrombin Time 16.6SEC (11.7-14.0) Prothromb Time International Ratio 1.4 (0.8-1.1) Microbiology 08/02/16 Blood Culture - Final, Complete NO GROWTH AFTER 5 DAYS 08/03/16 Sputum Culture - Final, Complete 08/03/16 Sputum Result 1 - Final, Complete 08/03/16 Sputum Result 2 - Final, Complete 08/03/16 Antimicrobic Susceptibility - Final, Complete 08/02/16 Urine Culture - Final, Complete 08/02/16 Urine Culture Result 1 (MILEY) - Final, Complete 08/03/16 Gram Stain - Final, Complete Medication Medications Current Medications Amiodarone HCl 400 mg 400 mg DAILY PO Last administered on 08/09/16 07:45; Start 08/09/16 at 09:00 Calcium Carbonate/ Glycine (Tums) 1,000 mg TID PO ; Start 08/09/16 at 09:00 Lactobacillus Acidophilus (Bacid, Rafaela-Bid) 1 tab TIDWMEALS PO ; Start 08/09/16 at 08:00 Linezolid (Zyvox) 600 mg BID PEG ; Start 08/09/16 at 21:00 Piperacillin Sod/ Tazobactam Sod/ Sodium Chloride (Zosyn/Iv Sodium Chloride 0.9 % 50ml) 50 ml @ 100 mls/hr Q8HRS IV Last administered on 08/09/16 06:07; Start 08/08/16 at 22:00 Comment Review of Relevant I have reviewed the following items leonidas (where applicable) has been applied. ROXI SCHMITT MD Aug 09, 2016 14:03
[2016-08-09] MEDS ORDERED: LIDOCAINE 1%/EPI 1:100,000 20 ML VIAL. ONE (14:49)
[2016-08-09] MEDS ORDERED: HEPARIN for IV BOLUS 10,000 UNIT/10 ML VIAL. ONE (14:49)
--- NOTE | 2016-08-09 15:19 | PDOC ---
Progress Note Subjective Subjective On trach shield throughout the day and did very well. Out of the bed to the chair today. No acute events. ROS ROS No nausea No vomiting No SOB No pain No rash Vital Sign Vital Signs Vital Signs Date Time Temp Pulse Resp B/P Pulse Ox O2 Delivery O2 Flow Rate FiO2 08/09/16 15:00 85 30 112/67 97 Tracheal Collar 08/09/16 12:04 10.0 08/09/16 12:00 98.2 98.2 Physical Exam PHYSICAL EXAM GENERAL: Alert, following commands HEENT: Pupils reactive NECK: Supple LUNGS: Clear HEART: S1S2 CHEST: sternotomy: D/C/I ABD: Soft, NT EXT: edema improved, warm well perfused, pedal pulses palpable [employer]: follows commands, extremities weak SKIN: No rash IV: ok Labs Lab Laboratory Tests Test 08/08/16 17:15 08/09/16 00:13 08/09/16 05:00 08/09/16 06:01 Glucose (Fingerstick) 134mg/dL (70-99) 141mg/dL (70-99) 118mg/dL (70-99) White Blood Count 6.0x10^3/uL (4.0-11.0) Red Blood Count 2.37x10^6/uL (4.30-5.70) Hemoglobin 7.6g/dL (13.0-17.5) Hematocrit 22.6% (39.0-53.0) Mean Corpuscular Volume 96fL (79-100) Mean Corpuscular Hemoglobin 32pg (25-35) Mean Corpuscular Hemoglobin Concent 34g/dL (31-37) Red Cell Distribution Width 17.6% (11.5-14.5) Platelet Count 123x10^3/uL (140-400) Neutrophils (%) (Auto) 87% (31-73) Lymphocytes (%) (Auto) 6% (24-48) Monocytes (%) (Auto) 6% (0-9) Eosinophils (%) (Auto) 1% (0-3) Basophils (%) (Auto) 0% (0-3) Neutrophils # (Auto) 5.2x10^3uL (1.8-7.7) Lymphocytes # (Auto) 0.4x10^3/uL (1.0-4.8) Monocytes # (Auto) 0.4x10^3/uL (0.0-1.1) Eosinophils # (Auto) 0.0x10^3/uL (0.0-0.7) Basophils # (Auto) 0.0x10^3/uL (0.0-0.2) Test 08/09/16 06:09 08/09/16 08:30 08/09/16 14:07 Sodium Level 138mmol/L (136-145) Potassium Level 4.4mmol/L (3.5-5.1) Chloride Level 98mmol/L (98-107) Carbon Dioxide Level 26mmol/L (21-32) Anion Gap 14 (6-14) Blood Urea Nitrogen 93mg/dL (8-26) Creatinine 3.9mg/dL (0.7-1.3) Estimated GFR (Cockcroft-Gault) 16.0 BUN/Creatinine Ratio 24 (6-20) Glucose Level 126mg/dL (70-99) Calcium Level 8.0mg/dL (8.5-10.1) Phosphorus Level 6.6mg/dL (2.6-4.7) Total Bilirubin 2.3mg/dL (0.2-1.0) Aspartate Amino Transf (AST/SGOT) 176U/L (15-37) Alanine Aminotransferase (ALT/SGPT) 157U/L (16-63) Alkaline Phosphatase 104U/L (46-116) Total Protein 5.4g/dL (6.4-8.2) Albumin 2.2g/dL (3.4-5.0) Albumin/Globulin Ratio 0.7 (1.0-1.7) Prothrombin Time 16.6SEC (11.7-14.0) Prothromb Time International Ratio 1.4 (0.8-1.1) Glucose (Fingerstick) 125mg/dL (70-99) Objective Assessment Status post CABG 3 for severe ischemic cardiomyopathy, large anterior STEMI with troponin of 100, with early postoperative myocardial infarction/V. fib, leading to cardiogenic shock, placement of the vein graft to the LAD and impella for mechanical circulatory support and open chest. Sternotomy has been closed and the LVAD has been removed. The patient subsequently developed septic shock of unknown etiology. He has now recovered from sepsis although he did develop acute renal failure requiring dialysis. Now s/p trach/PEG. On trach shield throughout the day and doing very well. Out of the bed to the chair. Tube feeds at goal. Had dialysis today. MRSA in resp cultures. On Linezolid Plan Plan of Care Cont Zyvox (08/05), Zosyn until the end of the week and D/c Micafungin Perm cath placement PT/OT Transfer to LT[facility] OLGA LOPEZ MD Aug 09, 2016 15:19
--- NOTE | 2016-08-09 15:21 | PDOC ---
PROGRESS NOTES Chief Complaint Chief Complaint cc: chest pain -Severe three-vessel coronary artery disease found on cath -S/P CABG x3 -Critical Illness Neuropathy -Resp failure on Vent -Mediastinal Washout -Multiple procedures -A-fib -Hypertension -STEMI -Cardiogenic shock -Ischemic cardiomyopathy -JAKE -SDH -Hemodialysis catheter -Right renal mass History of Present Illness History of Present Illness Mr. Alvarado was lying in bed with a ventilator present for his tracheostomy. He was able to follow commands, but he had minimal muscle strength in the lower extremities. He had a rectal tube present. His family members were present. PPN and fluids were hanging from the IV rack. His respiratory rate was 35 and his SpO2 was 100%. Vitals Vitals Vital Signs Date Time Temp Pulse Resp B/P Pulse Ox O2 Delivery O2 Flow Rate FiO2 08/09/16 14:00 85 30 111/67 97 Tracheal Collar 08/09/16 12:04 10.0 08/09/16 12:00 98.2 98.2 Physical Exam General: Cooperative, No acute distress, Other (Tracheostomy tube in place) Heart: Normal S1, Normal S2, No murmurs Lungs: Clear, Other (Rhonchi noted diffusely) Abdomen: No tenderness, No masses Extremities: No clubbing, Normal pulses Skin: No rashes, No significant lesion Labs LABS Laboratory Tests Test 08/08/16 17:15 08/09/16 00:13 08/09/16 05:00 08/09/16 06:01 Glucose (Fingerstick) 134mg/dL (70-99) 141mg/dL (70-99) 118mg/dL (70-99) White Blood Count 6.0x10^3/uL (4.0-11.0) Red Blood Count 2.37x10^6/uL (4.30-5.70) Hemoglobin 7.6g/dL (13.0-17.5) Hematocrit 22.6% (39.0-53.0) Mean Corpuscular Volume 96fL (79-100) Mean Corpuscular Hemoglobin 32pg (25-35) Mean Corpuscular Hemoglobin Concent 34g/dL (31-37) Red Cell Distribution Width 17.6% (11.5-14.5) Platelet Count 123x10^3/uL (140-400) Neutrophils (%) (Auto) 87% (31-73) Lymphocytes (%) (Auto) 6% (24-48) Monocytes (%) (Auto) 6% (0-9) Eosinophils (%) (Auto) 1% (0-3) Basophils (%) (Auto) 0% (0-3) Neutrophils # (Auto) 5.2x10^3uL (1.8-7.7) Lymphocytes # (Auto) 0.4x10^3/uL (1.0-4.8) Monocytes # (Auto) 0.4x10^3/uL (0.0-1.1) Eosinophils # (Auto) 0.0x10^3/uL (0.0-0.7) Basophils # (Auto) 0.0x10^3/uL (0.0-0.2) Test 08/09/16 06:09 08/09/16 08:30 08/09/16 14:07 Sodium Level 138mmol/L (136-145) Potassium Level 4.4mmol/L (3.5-5.1) Chloride Level 98mmol/L (98-107) Carbon Dioxide Level 26mmol/L (21-32) Anion Gap 14 (6-14) Blood Urea Nitrogen 93mg/dL (8-26) Creatinine 3.9mg/dL (0.7-1.3) Estimated GFR (Cockcroft-Gault) 16.0 BUN/Creatinine Ratio 24 (6-20) Glucose Level 126mg/dL (70-99) Calcium Level 8.0mg/dL (8.5-10.1) Phosphorus Level 6.6mg/dL (2.6-4.7) Total Bilirubin 2.3mg/dL (0.2-1.0) Aspartate Amino Transf (AST/SGOT) 176U/L (15-37) Alanine Aminotransferase (ALT/SGPT) 157U/L (16-63) Alkaline Phosphatase 104U/L (46-116) Total Protein 5.4g/dL (6.4-8.2) Albumin 2.2g/dL (3.4-5.0) Albumin/Globulin Ratio 0.7 (1.0-1.7) Prothrombin Time 16.6SEC (11.7-14.0) Prothromb Time International Ratio 1.4 (0.8-1.1) Glucose (Fingerstick) 125mg/dL (70-99) Review of Systems Review of Systems Mr. Alvarado was unable to complete this portion of the examination due to the tracheostomy tube in place. Assessment and Plan Assessmemt and Plan Problems Medical Problems: (1) CAD (coronary artery disease), [place] coronary artery Status: Acute (2) Chest pain Status: Acute (3) STEMI (ST elevation myocardial infarction) Status: Acute Assessment: Mr. Alvarado is a 56 year old male who initially presented with chest pain. -Severe three-vessel coronary artery disease found on cath -S/P CABG x3 -Resp failure on Vent -Critical Illness Neuropathy -Mediastinal Washout -Multiple procedures -A-fib -Hypertension -STEMI -Cardiogenic shock -Ischemic cardiomyopathy -JAKE -SDH -Hemodialysis catheter -Right renal mass Plan: 1. Continue antibiotic Zosyn per ID 2. Continue calcium replacement 3. Continue amiodarone for post-operative ventricular fibrillation per cardiology 4. Continue PPI PPX 5. Continue sedative medication alprazolam 6. Continue phosphate removal with sevelamer 7. PT/OT 8. Recheck labs 9. Monitor newly elevated LFT's 10. Monitor for LTAC results 11. Appreciate consultation from IR, nephrology, cardiology, ID, neurology, pulmonology, gastroenterology, and cardiothoracic surgery Prognosis is serious Problems: Comment Review of Relevant I have reviewed the following items leonidas (where applicable) has been applied. Labs Laboratory Tests Test 08/07/16 16:36 08/07/16 18:29 08/08/16 00:17 08/08/16 05:00 Glucose (Fingerstick) 170mg/dL (70-99) 163mg/dL (70-99) Clostridium difficile Toxin (PCR) Negative (Negative) Vitamin B12 Level 895pg/mL (247-911) Test 08/08/16 06:20 08/08/16 09:00 08/08/16 10:52 08/08/16 17:15 White Blood Count 5.2x10^3/uL (4.0-11.0) Red Blood Count 2.49x10^6/uL (4.30-5.70) Hemoglobin 7.9g/dL (13.0-17.5) Hematocrit 24.1% (39.0-53.0) Mean Corpuscular Volume 97fL (79-100) Mean Corpuscular Hemoglobin 32pg (25-35) Mean Corpuscular Hemoglobin Concent 33g/dL (31-37) Red Cell Distribution Width 16.6% (11.5-14.5) Platelet Count 120x10^3/uL (140-400) Neutrophils (%) (Auto) 85% (31-73) Lymphocytes (%) (Auto) 6% (24-48) Monocytes (%) (Auto) 8% (0-9) Eosinophils (%) (Auto) 0% (0-3) Basophils (%) (Auto) 0% (0-3) Neutrophils # (Auto) 4.4x10^3uL (1.8-7.7) Lymphocytes # (Auto) 0.3x10^3/uL (1.0-4.8) Monocytes # (Auto) 0.4x10^3/uL (0.0-1.1) Eosinophils # (Auto) 0.0x10^3/uL (0.0-0.7) Basophils # (Auto) 0.0x10^3/uL (0.0-0.2) Sodium Level 142mmol/L (136-145) Potassium Level 4.2mmol/L (3.5-5.1) Chloride Level 100mmol/L (98-107) Carbon Dioxide Level 24mmol/L (21-32) Anion Gap 18 (6-14) Blood Urea Nitrogen 120mg/dL (8-26) Creatinine 4.7mg/dL (0.7-1.3) Estimated GFR (Cockcroft-Gault) 12.9 Glucose Level 154mg/dL (70-99) Calcium Level 7.6mg/dL (8.5-10.1) Phosphorus Level 6.1mg/dL (2.6-4.7) Albumin 2.2g/dL (3.4-5.0) O2 Saturation 98% (92-99) Arterial Blood pH 7.50 (7.35-7.45) Arterial Blood pCO2 at Patient Temp 30mmHg (35-46) Arterial Blood pO2 at Patient Temp 115mmHg (75-108) Arterial Blood HCO3 23mmol/L (21-28) Arterial Blood Base Excess 0mmol/L (-3-3) FiO2 40 Glucose (Fingerstick) 130mg/dL (70-99) 134mg/dL (70-99) Test 08/09/16 00:13 08/09/16 05:00 08/09/16 06:01 08/09/16 06:09 Glucose (Fingerstick) 141mg/dL (70-99) 118mg/dL (70-99) White Blood Count 6.0x10^3/uL (4.0-11.0) Red Blood Count 2.37x10^6/uL (4.30-5.70) Hemoglobin 7.6g/dL (13.0-17.5) Hematocrit 22.6% (39.0-53.0) Mean Corpuscular Volume 96fL (79-100) Mean Corpuscular Hemoglobin 32pg (25-35) Mean Corpuscular Hemoglobin Concent 34g/dL (31-37) Red Cell Distribution Width 17.6% (11.5-14.5) Platelet Count 123x10^3/uL (140-400) Neutrophils (%) (Auto) 87% (31-73) Lymphocytes (%) (Auto) 6% (24-48) Monocytes (%) (Auto) 6% (0-9) Eosinophils (%) (Auto) 1% (0-3) Basophils (%) (Auto) 0% (0-3) Neutrophils # (Auto) 5.2x10^3uL (1.8-7.7) Lymphocytes # (Auto) 0.4x10^3/uL (1.0-4.8) Monocytes # (Auto) 0.4x10^3/uL (0.0-1.1) Eosinophils # (Auto) 0.0x10^3/uL (0.0-0.7) Basophils # (Auto) 0.0x10^3/uL (0.0-0.2) Sodium Level 138mmol/L (136-145) Potassium Level 4.4mmol/L (3.5-5.1) Chloride Level 98mmol/L (98-107) Carbon Dioxide Level 26mmol/L (21-32) Anion Gap 14 (6-14) Blood Urea Nitrogen 93mg/dL (8-26) Creatinine 3.9mg/dL (0.7-1.3) Estimated GFR (Cockcroft-Gault) 16.0 BUN/Creatinine Ratio 24 (6-20) Glucose Level 126mg/dL (70-99) Calcium Level 8.0mg/dL (8.5-10.1) Phosphorus Level 6.6mg/dL (2.6-4.7) Total Bilirubin 2.3mg/dL (0.2-1.0) Aspartate Amino Transf (AST/SGOT) 176U/L (15-37) Alanine Aminotransferase (ALT/SGPT) 157U/L (16-63) Alkaline Phosphatase 104U/L (46-116) Total Protein 5.4g/dL (6.4-8.2) Albumin 2.2g/dL (3.4-5.0) Albumin/Globulin Ratio 0.7 (1.0-1.7) Test 08/09/16 08:30 08/09/16 14:07 Prothrombin Time 16.6SEC (11.7-14.0) Prothromb Time International Ratio 1.4 (0.8-1.1) Glucose (Fingerstick) 125mg/dL (70-99) Laboratory Tests Test 08/08/16 17:15 08/09/16 00:13 08/09/16 05:00 08/09/16 06:01 Glucose (Fingerstick) 134mg/dL (70-99) 141mg/dL (70-99) 118mg/dL (70-99) White Blood Count 6.0x10^3/uL (4.0-11.0) Red Blood Count 2.37x10^6/uL (4.30-5.70) Hemoglobin 7.6g/dL (13.0-17.5) Hematocrit 22.6% (39.0-53.0) Mean Corpuscular Volume 96fL (79-100) Mean Corpuscular Hemoglobin 32pg (25-35) Mean Corpuscular Hemoglobin Concent 34g/dL (31-37) Red Cell Distribution Width 17.6% (11.5-14.5) Platelet Count 123x10^3/uL (140-400) Neutrophils (%) (Auto) 87% (31-73) Lymphocytes (%) (Auto) 6% (24-48) Monocytes (%) (Auto) 6% (0-9) Eosinophils (%) (Auto) 1% (0-3) Basophils (%) (Auto) 0% (0-3) Neutrophils # (Auto) 5.2x10^3uL (1.8-7.7) Lymphocytes # (Auto) 0.4x10^3/uL (1.0-4.8) Monocytes # (Auto) 0.4x10^3/uL (0.0-1.1) Eosinophils # (Auto) 0.0x10^3/uL (0.0-0.7) Basophils # (Auto) 0.0x10^3/uL (0.0-0.2) Test 08/09/16 06:09 08/09/16 08:30 08/09/16 14:07 Sodium Level 138mmol/L (136-145) Potassium Level 4.4mmol/L (3.5-5.1) Chloride Level 98mmol/L (98-107) Carbon Dioxide Level 26mmol/L (21-32) Anion Gap 14 (6-14) Blood Urea Nitrogen 93mg/dL (8-26) Creatinine 3.9mg/dL (0.7-1.3) Estimated GFR (Cockcroft-Gault) 16.0 BUN/Creatinine Ratio 24 (6-20) Glucose Level 126mg/dL (70-99) Calcium Level 8.0mg/dL (8.5-10.1) Phosphorus Level 6.6mg/dL (2.6-4.7) Total Bilirubin 2.3mg/dL (0.2-1.0) Aspartate Amino Transf (AST/SGOT) 176U/L (15-37) Alanine Aminotransferase (ALT/SGPT) 157U/L (16-63) Alkaline Phosphatase 104U/L (46-116) Total Protein 5.4g/dL (6.4-8.2) Albumin 2.2g/dL (3.4-5.0) Albumin/Globulin Ratio 0.7 (1.0-1.7) Prothrombin Time 16.6SEC (11.7-14.0) Prothromb Time International Ratio 1.4 (0.8-1.1) Glucose (Fingerstick) 125mg/dL (70-99) Microbiology 08/02/16 Blood Culture - Final, Complete NO GROWTH AFTER 5 DAYS 08/03/16 Sputum Culture - Final, Complete 08/03/16 Sputum Result 1 - Final, Complete 08/03/16 Sputum Result 2 - Final, Complete 08/03/16 Antimicrobic Susceptibility - Final, Complete 08/02/16 Urine Culture - Final, Complete 08/02/16 Urine Culture Result 1 (MILEY) - Final, Complete 08/03/16 Gram Stain - Final, Complete Medications Current Medications Nitroglycerin 0.4 mg 0.4 mg PRN Q5MIN PRN SL CP RATING > 1/10; Start 07/20/16 at 09:45; Stop 07/20/16 at 15:05; Status DC Nitroglycerin/ Dextrose (Nitroglycerin Drip) 250 ml @ 3 mls/hr 1X ONCE IV Last administered on 07/20/16 10:02; Start 07/20/16 at 10:30; Stop 07/23/16 at 21: 49; Status DC Morphine Sulfate 2 mg PRN Q15MIN PRN IV/SQ PAIN GREATER THAN 3/10; Start at 09:45; Stop 07/21/16 at 09:44; Status DC Ondansetron HCl (Zofran) 4 mg PRN Q8HRS PRN IV NAUSEA/VOMITING; Start 07/20/16 at 12:30; Stop 07/20/16 at 13:36; Status DC Morphine Sulfate 2 mg 2 mg PRN Q2HR PRN IV PAIN; Start 07/20/16 at 12:30; Stop 07/21/16 at 12:29; Status DC Heparin Sodium/ Dextrose 500 ml @ 0 mls/hr CONT PRN IV . Last administered on 10:32; Start 07/20/16 at 13:00; Stop 07/21/16 at 14:50; Status DC Metoprolol Tartrate (Lopressor) 5 mg Q6HRS IVP ; Start 07/20/16 at 13:00; Stop at 14:53; Status DC Aspirin (Ecotrin) 325 mg [id number] PO Last administered on 07/21/16 08:11; Start 07/20/16 at 13:00; Stop 07/21/16 at 17:20; Status DC Ondansetron HCl (Zofran) 4 mg PRN Q6HRS PRN IV NAUSEA/VOMITING; Start 07/20/16 at 13:35; Stop 07/26/16 at 11:41; Status DC Acetaminophen (Tylenol) 500 mg PRN Q6HRS PRN PO MILD PAIN / TEMP Last administered on 07/29/16 09:55; Start 07/20/16 at 13:45; Stop 07/29/16 at 13:38 ; Status DC Docusate Sodium (Colace) 100 mg DAILY PO Last administered on 07/29/16 09:54; Start 07/20/16 at 15:00; Stop 07/29/16 at 10:03; Status DC Iohexol 100 ml 100 ml STK-MED ONCE .ROUTE ; Start 07/20/16 at 12:40; Stop at 13:44; Status DC Heparin Sodium/ Sodium Chloride 1,000 ml @ As Directed STK-MED ONCE .ROUTE ; Start 07/20/16 at 12:41; Stop 07/20/16 at 13:44; Status DC Lidocaine HCl 20 ml STK-MED ONCE .ROUTE ; Start 07/20/16 at 12:41; Stop 07/20/16 at 13:44; Status DC Fentanyl Citrate (Fentanyl 2ml Vial) 100 mcg STK-MED ONCE .ROUTE ; Start at 13:42; Stop 07/20/16 at 13:45; Status DC Midazolam HCl (Versed) 2 mg STK-MED ONCE .ROUTE ; Start 07/20/16 at 13:42; Stop 07/20/16 at 13:45; Status DC Heparin Sodium/ Sodium Chloride 1,000 unit 1X ONCE IART Last administered on 14:29; Start 07/20/16 at 14:00; Stop 07/20/16 at 14:01; Status DC Heparin Sodium/ Sodium Chloride 1,000 unit 1X ONCE IART Last administered on 14:29; Start 07/20/16 at 14:00; Stop 07/20/16 at 14:01; Status DC Midazolam HCl (Versed) 2 mg 1X ONCE IV Last administered on 07/20/16 14:28; Start 07/20/16 at 14:00; Stop 07/20/16 at 14:01; Status DC Fentanyl Citrate (Fentanyl 2ml Vial) 100 mcg 1X ONCE IV Last administered on 14:28; Start 07/20/16 at 14:00; Stop 07/20/16 at 14:01; Status DC Iohexol (Omnipaque 300 Mg/ml) 100 ml 1X ONCE IART Last administered on 14:29; Start 07/20/16 at 14:00; Stop 07/20/16 at 14:01; Status DC Lidocaine HCl 20 ml 1X ONCE IJ Last administered on 07/20/16 14:29; Start 07/20 at 14:00; Stop 07/20/16 at 14:01; Status DC Midazolam HCl (Versed) 2 mg STK-MED ONCE .ROUTE ; Start 07/20/16 at 14:15; Stop 07/20/16 at 14:16; Status DC Sodium Chloride 3 ml 3 ml QSHIFT PRN IV AFTER MEDS AND BLOOD DRAWS; Start at 14:45; Stop 07/29/16 at 13:51; Status DC Sodium Chloride (Iv Sodium Chloride 0.9% 1000ml Bag) 1,000 ml @ 60 mls/hr [id number] IV Last administered on 07/20/16 14:44; Start 07/20/16 at 14:44; Stop at 00:43; Status DC Metoprolol Tartrate (Lopressor) 12.5 mg BID PO ; Start 07/20/16 at 21:00; Stop at 21:00; Status DC Lisinopril (Prinivil) 5 mg DAILY PO Last administered on 07/20/16 16:25; Start 07/20/16 at 15:00; Stop 07/20/16 at 17:21; Status DC Atorvastatin Calcium (Lipitor) 20 mg QHS PO Last administered on 07/20/16 20:33 ; Start 07/20/16 at 21:00; Stop 07/21/16 at 08:11; Status DC Nitroglycerin (Nitrostat) 0.4 mg PRN Q5MIN PRN SL CHEST PAIN Last administered on 07/25/16 04:55; Start 07/20/16 at 14:45; Stop 07/26/16 at 11:41; Status DC Hydralazine HCl (Apresoline) 10 mg PRN Q4HRS PRN IVP ELEVATED BP, SEE COMMENTS Last administered on 07/31/16 10:58; Start 07/20/16 at 17:15; Stop 07/31/16 at 13:31; Status DC Metoprolol Tartrate (Lopressor) 50 mg BID PO Last administered on 07/22/16 08: 31; Start 07/20/16 at 21:00; Stop 07/22/16 at 19:03; Status DC Alprazolam (Xanax) 0.25 mg PRN Q8HRS PRN PO ANXIETY / AGITATION Last administered on 07/24/16 21:34; Start 07/20/16 at 17:30; Stop 07/29/16 at 13:38; Status DC Heparin Sodium (Porcine) 2050 unit 2,050 unit PRN Q6HRS PRN IV FOR UFH LEVEL LESS THAN 0.2 Last administered on 07/21/16 04:24; Start 07/20/16 at 19:45; Stop 07/26/16 at 08:55; Status DC Heparin Sodium/ Dextrose 500 ml @ 19.4 mls/hr CONT PRN IV SEE I/O RECORD; Start 07/20/16 at 19:45; Stop 07/21/16 at 16:24; Status DC Heparin Sodium (Porcine) (Heparin Sodium) 2,050 unit PRN Q6HRS PRN IV FOR UFH LEVEL LESS THAN 0.2; Start 07/20/16 at 19:45; Status UNV Atorvastatin Calcium (Lipitor) 40 mg QHS PO Last administered on 08/08/16 21: 13; Start 07/21/16 at 21:00 Iodixanol (Visipaque 320) 200 ml STK-MED ONCE .ROUTE ; Start 07/20/16 at 14:00; Stop 07/21/16 at 08:26; Status DC Zolpidem Tartrate (Ambien) 5 mg PRN QHS PRN PO INSOMNIA, MAY REPEAT IN 1HR; Start 07/21/16 at 15:30; Stop 07/29/16 at 13:38; Status DC Metoprolol Tartrate 25 mg 25 mg 1X ONCE PO ; Start 07/22/16 at 06:00; Stop at 06:02; Status DC Cefazolin Sodium/ Dextrose 50 ml @ 100 mls/hr 1X ONCE IV ; Start 07/22/16 at 06 :00; Stop 07/22/16 at 06:29; Status DC Heparin Sodium/ Dextrose 500 ml @ 0 mls/hr CONT PRN IV SEE I/O RECORD Last administered on 07/24/16 01:40; Start 07/21/16 at 16:30; Stop 07/26/16 at 08:55; Status DC Lidocaine HCl 2 ml 2 ml 1X PRN PRN ID IV START; Start 07/25/16 at 06:00; Stop 07/26/16 at 05:59; Status Cancel Lactated Ringer's (Iv Lactated Ringers) 1,000 ml @ 0 mls/hr Q0M IV Last administered on 07/25/16 07:30; Start 07/25/16 at 06:00; Stop 07/25/16 at 17:59 ; Status DC Fentanyl Citrate (Fentanyl 2ml Vial) 25 mcg PRN Q5MIN PRN IV Acute Pain; Start 07/22/16 at 09:15; Stop 07/23/16 at 09:14; Status DC Morphine Sulfate 2 mg PRN Q10MIN PRN IV Mild Pain; Start 07/22/16 at 09:15; Stop 07/23/16 at 09:14; Status DC Hydromorphone HCl (Dilaudid) 0.4 mg PRN Q10MIN PRN IV Moderate to severe pain; Start 07/22/16 at 09:15; Stop 07/23/16 at 09:14; Status DC Ondansetron HCl (Zofran) 4 mg PRN Q6HRS PRN IV Nausea, 1st Choice; Start at 09:15; Stop 07/23/16 at 09:14; Status DC Prochlorperazine Edisylate (Compazine) 5 mg PRN Q6HRS PRN IV Nausea/Vomiting, 2nd Choice; Start 07/22/16 at 09:15; Stop 07/23/16 at 09:14; Status DC Ondansetron HCl (Zofran) 4 mg PRN Q6HRS PRN IV NAUSEA/VOMITING; Start 07/25/16 at 07:00; Stop 07/26/16 at 06:59; Status DC Fentanyl Citrate (Fentanyl 2ml Vial) 25 mcg PRN Q5MIN PRN IV MILD PAIN; Start 07/25/16 at 07:00; Stop 07/26/16 at 06:59; Status DC Fentanyl Citrate (Fentanyl 2ml Vial) 50 mcg PRN Q5MIN PRN IV MODERATE PAIN; Start 07/25/16 at 07:00; Stop 07/26/16 at 06:59; Status DC Morphine Sulfate 1 mg 1 mg PRN Q10MIN PRN IV SEVERE PAIN; Start 07/25/16 at 07: 00; Stop 07/25/16 at 20:28; Status DC Lactated Ringer's (Iv Lactated Ringers) 1,000 ml @ 0 mls/hr Q0M IV ; Start 01/31 at 07:00; Stop 07/25/16 at 18:59; Status Cancel Lidocaine HCl 2 ml PRN 1X PRN ID PRIOR TO IV START Last administered on 07:16; Start 07/25/16 at 07:00; Stop 07/26/16 at 06:59; Status DC Hydromorphone HCl (Dilaudid) 0.5 mg PRN Q10MIN PRN IV SEV PAIN, Second choice; Start 07/25/16 at 07:00; Stop 07/26/16 at 06:59; Status DC Prochlorperazine Edisylate 5 mg 5 mg PACU PRN PRN IV NAUSEA, MRX1; Start at 07:00; Stop 07/26/16 at 06:59; Status DC Cefazolin Sodium/ Dextrose (Ancef 2gm Premix) 50 ml @ 100 mls/hr 1X ONCE IV Last administered on 07/25/16 08:12; Start 07/25/16 at 06:00; Stop 07/25/16 at 06:29; Status DC Metoprolol Tartrate (Lopressor) 25 mg 1X ONCE PO ; Start 07/25/16 at 06:00; Stop 07/25/16 at 06:00; Status DC Metoprolol Tartrate (Lopressor) 2.5 mg 1X ONCE IVP Last administered on 16:30; Start 07/22/16 at 16:30; Stop 07/22/16 at 16:31; Status DC Digoxin (Lanoxin) 250 mcg 1X ONCE IV ; Start 07/22/16 at 18:30; Stop 07/22/16 at 18:42; Status DC Digoxin (Lanoxin) 500 mcg 1X ONCE IV Last administered on 07/22/16 18:47; Start 07/22/16 at 18:45; Stop 07/22/16 at 18:46; Status DC Metoprolol Tartrate (Lopressor) 75 mg BID PO Last administered on 07/24/16 21: 30; Start 07/22/16 at 21:00; Stop 07/25/16 at 13:12; Status DC Nitroglycerin 0.4 mg 0.4 mg PRN Q5MIN PRN SL CHEST PAIN; Start 07/23/16 at 12:00 ; Status UNV Heparin Sodium (Porcine) 24691 unit/Lactated Ringer's 1,020 ml @ 1,020 mls/hr 1X PERIOP ONCE IRR Last administered on 07/25/16 08:46; Start 07/25/16 at 06: 00; Stop 07/25/16 at 06:59; Status DC Potassium Chloride 70 meq/ Sodium Bicarbonate 12.5 meq/Lidocaine HCl 24 ml/ Parenteral Electrolytes 571.5 ml @ 571.5 mls/ hr 1X PERIOP ONCE IRR ; Start at 06:00; Stop 07/25/16 at 06:59; Status DC Potassium Chloride/Sodium Bicarbonate/ Parenteral Electrolytes (Isolyte S) 520 ml @ 520 mls/hr 1X PERIOP ONCE IRR ; Start 07/25/16 at 06:00; Stop 07/25/16 at 06:59; Status DC Etomidate (Amidate) 20 mg STK-MED ONCE IV ; Start 07/25/16 at 06:08; Stop at 06:09; Status DC Phenylephrine HCl (-Synephrine Inj) 10 mg STK-MED ONCE .ROUTE ; Start at 06:08; Stop 07/25/16 at 06:09; Status DC Aminocaproic Acid (Amicar) 5,000 mg STK-MED ONCE IV ; Start 07/25/16 at 06:08; Stop 07/25/16 at 06:09; Status DC Heparin Sodium (Porcine) (Heparin Sodium) 10,000 unit STK-MED ONCE .ROUTE ; Start 07/25/16 at 06:10; Stop 07/25/16 at 06:11; Status DC Rocuronium [place] (Zemuron) 100 mg STK-MED ONCE .ROUTE ; Start 07/25/16 at 06: 11; Stop 07/25/16 at 06:12; Status DC Morphine Sulfate 4 mg STK-MED ONCE .ROUTE ; Start 07/25/16 at 06:59; Stop at 07:00; Status DC Morphine Sulfate 4 mg 4 mg 1X ONCE IV ; Start 07/25/16 at 07:15; Stop 07/25/16 at 07:16; Status DC Cefazolin Sodium/ Sodium Chloride (Ancef/Iv Sodium Chloride 0.9% 500ml Bag) 500 ml @ 500 mls/hr 1X PERIOP ONCE IRR Last administered on 07/25/16 08:46; Start 07/25/16 at 07:15; Stop 07/25/16 at 08:14; Status DC Cellulose 1 each STK-MED ONCE .ROUTE Last administered on 07/25/16 08:46; Start 07/25/16 at 07:07; Stop 07/25/16 at 07:08; Status DC Vancomycin HCl (Vanco) 10 gm STK-MED ONCE .ROUTE Last administered on 08:46; Start 07/25/16 at 07:07; Stop 07/25/16 at 07:08; Status DC Papaverine HCl 60 mg STK-MED ONCE .ROUTE Last administered on 07/25/16 08:46; Start 07/25/16 at 07:07; Stop 07/25/16 at 07:08; Status DC Aspirin (Aspirin) 300 mg STK-MED ONCE .ROUTE Last administered on 07/25/16 17: 25; Start 07/25/16 at 07:08; Stop 07/25/16 at 07:09; Status DC Sodium Chloride (Sodium Chloride) 50 ml STK-MED ONCE IJ Last administered on 08:46; Start 07/25/16 at 07:08; Stop 07/25/16 at 07:09; Status DC Midazolam HCl (Versed) 2 mg STK-MED ONCE .ROUTE ; Start 07/25/16 at 07:15; Stop 07/25/16 at 07:16; Status DC Ephedrine Sulfate 50 mg 50 mg STK-MED ONCE IV ; Start 07/25/16 at 07:16; Stop at 07:17; Status DC Nitroglycerin/ Dextrose (Nitroglycerin Drip) 250 ml @ As Directed STK-MED ONCE IV ; Start 07/25/16 at 07:16; Stop 07/25/16 at 07:17; Status DC Midazolam HCl (Versed) 2 mg STK-MED ONCE .ROUTE ; Start 07/25/16 at 07:18; Stop 07/25/16 at 07:19; Status DC Fentanyl Citrate (Fentanyl 2ml Vial) 100 mcg STK-MED ONCE .ROUTE ; Start at 07:19; Stop 07/25/16 at 07:20; Status DC Sufentanil Citrate (Sufenta) 100 mcg STK-MED ONCE .ROUTE ; Start 07/25/16 at 07: 19; Stop 07/25/16 at 07:20; Status DC Midazolam HCl (Versed) 2 mg 1X ONCE IV ; Start 07/25/16 at 08:00; Stop at 08:01; Status DC Dexamethasone Sodium Phosphate (Decadron) 20 mg STK-MED ONCE .ROUTE ; Start 01/31 at 07:58; Stop 07/25/16 at 07:59; Status DC Rocuronium [place] (Zemuron) 100 mg STK-MED ONCE .ROUTE ; Start 07/25/16 at 08: 52; Stop 07/25/16 at 08:53; Status DC Sufentanil Citrate (Sufenta) 100 mcg STK-MED ONCE .ROUTE ; Start 07/25/16 at 08: 53; Stop 07/25/16 at 08:54; Status DC Protamine Sulfate 250 mg STK-MED ONCE IV ; Start 07/25/16 at 10:43; Stop at 10:44; Status DC Rocuronium [place] 100 mg 100 mg STK-MED ONCE .ROUTE ; Start 07/25/16 at 10:52; Stop 07/25/16 at 10:53; Status DC Albumin Human 0 ml @ As Directed STK-MED ONCE IV ; Start 07/25/16 at 10:53; Stop 07/25/16 at 10:54; Status DC Amiodarone HCl/ Dextrose (Cordarone) 518 ml @ 34.53 mls/ hr 1X ONCE IV Last administered on 07/25/16t 18:52; Start 07/25/16 at 11:30; Stop 07/26/16 at 02:30 ; Status DC Sodium Bicarbonate 50 meq STK-MED ONCE .ROUTE ; Start 07/25/16 at 11:35; Stop at 11:36; Status DC Protamine Sulfate 50 mg STK-MED ONCE IV ; Start 07/25/16 at 12:31; Stop at 12:32; Status DC Amiodarone HCl (Cordarone) 150 mg STK-MED ONCE .ROUTE ; Start 07/25/16 at 12:37 ; Stop 07/25/16 at 12:38; Status DC Isoflurane (Isoflurane) 90 ml STK-MED ONCE IH ; Start 07/25/16 at 12:42; Stop at 12:43; Status DC Lidocaine HCl (Lidocaine HCl 2% Abboject) 100 mg STK-MED ONCE .ROUTE ; Start 01/31 at 13:07; Stop 07/25/16 at 13:08; Status DC Mannitol (Mannitol) 12.5 g STK-MED ONCE .ROUTE ; Start 07/25/16 at 13:07; Stop 07/25/16 at 13:08; Status DC Calcium Chloride 1,000 mg STK-MED ONCE IV ; Start 07/25/16 at 13:07; Stop at 13:08; Status DC Sodium Bicarbonate 50 meq 50 meq STK-MED ONCE .ROUTE ; Start 07/25/16 at 13:07; Stop 07/25/16 at 13:08; Status DC Albumin Human (Albuminar) 100 ml @ As Directed STK-MED ONCE IV ; Start at 13:07; Stop 07/25/16 at 13:08; Status DC Magnesium Sulfate 5 gm STK-MED ONCE .ROUTE ; Start 07/25/16 at 13:08; Stop 07/25 at 13:09; Status DC Heparin Sodium (Porcine) 06018 unit 30,000 unit STK-MED ONCE .ROUTE ; Start 01/31 at 13:08; Stop 07/25/16 at 13:09; Status DC Clevidipine (Cleviprex) 100 ml @ 0 mls/hr CONT PRN IV PER PROTOCOL; Start 07/25 at 13:45; Stop 07/26/16 at 11:29; Status DC Heparin Sodium (Porcine) 56606 unit 30,000 unit STK-MED ONCE .ROUTE ; Start 01/31 at 13:39; Stop 07/25/16 at 13:40; Status DC Epinephrine HCl/ Sodium Chloride (Adrenalin/Iv Sodium Chloride 0.9% 250ml) 254 ml @ 3.81 mls/hr CONT PRN IV SEE I/O RECORD; Start 07/25/16 at 13:45; Stop at 13:38; Status DC Epinephrine HCl (Epinephrine Syringe) 1 mg STK-MED ONCE .ROUTE ; Start 07/25/16 at 13:52; Stop 07/25/16 at 13:53; Status DC Rocuronium [place] (Zemuron) 100 mg STK-MED ONCE .ROUTE ; Start 07/25/16 at 13: 57; Stop 07/25/16 at 13:58; Status DC Sodium Bicarbonate 50 meq 50 meq STK-MED ONCE .ROUTE ; Start 07/25/16 at 14:04; Stop 07/25/16 at 14:05; Status DC Procainamide HCl/ Dextrose (Pronestyl) 520 ml @ 15.6 mls/hr CONT PRN IV SEE I/ O RECORD; Start 07/25/16 at 14:30; Stop 07/28/16 at 15:22; Status DC Sodium Bicarbonate 50 meq STK-MED ONCE .ROUTE ; Start 07/25/16 at 14:31; Stop at 14:32; Status DC Sodium Bicarbonate 50 meq STK-MED ONCE .ROUTE ; Start 07/25/16 at 14:31; Stop at 14:32; Status DC Protamine Sulfate 50 mg STK-MED ONCE IV ; Start 07/25/16 at 15:13; Stop at 15:14; Status DC Protamine Sulfate 50 mg STK-MED ONCE IV ; Start 07/25/16 at 15:13; Stop at 15:14; Status DC Isoflurane 90 ml 90 ml STK-MED ONCE IH ; Start 07/25/16 at 15:13; Stop 07/25/16 at 15:14; Status DC Dobutamine HCl/ Dextrose 250 ml @ As Directed STK-MED ONCE IV ; Start 07/25/16 at 15:17; Stop 07/25/16 at 15:18; Status DC Iohexol 100 ml 100 ml STK-MED ONCE .ROUTE Last administered on 07/25/16t 15:39 ; Start 07/25/16 at 15:28; Stop 07/25/16 at 15:29; Status DC Norepinephrine Bitartrate 8 mg/ Sodium Chloride 258 ml @ 1.93 mls/hr 1X ONCE IV Last administered on 07/25/16t 18:53; Start 07/25/16 at 16:00; Stop at 08:04; Status DC Albumin Human (Plasmanate) 1,000 ml @ As Directed STK-MED ONCE IV ; Start 07/25 at 16:11; Stop 07/25/16 at 16:12; Status DC Heparin Sodium (Porcine) (Heparin Sodium) 10,000 unit STK-MED ONCE .ROUTE ; Start 07/25/16 at 16:19; Stop 07/25/16 at 16:20; Status DC Lidocaine HCl (Lidocaine HCl 2% Abboject) 100 mg STK-MED ONCE .ROUTE ; Start 01/31 at 16:19; Stop 07/25/16 at 16:20; Status DC Mannitol (Mannitol) 12.5 g STK-MED ONCE .ROUTE ; Start 07/25/16 at 16:19; Stop 07/25/16 at 16:20; Status DC Calcium Chloride 1,000 mg STK-MED ONCE IV ; Start 07/25/16 at 16:19; Stop at 16:20; Status DC Sodium Bicarbonate 50 meq STK-MED ONCE .ROUTE ; Start 07/25/16 at 16:19; Stop at 16:20; Status DC Magnesium Sulfate 5 gm STK-MED ONCE .ROUTE ; Start 07/25/16 at 16:19; Stop 07/25 at 16:20; Status DC Heparin Sodium (Porcine) (Heparin Sodium) 10,000 unit STK-MED ONCE .ROUTE ; Start 07/25/16 at 16:20; Stop 07/25/16 at 16:21; Status DC Lidocaine HCl (Lidocaine HCl 2% Abboject) 100 mg STK-MED ONCE .ROUTE ; Start 01/31 at 16:20; Stop 07/25/16 at 16:21; Status DC Aminocaproic Acid (Amicar) 5,000 mg STK-MED ONCE IV ; Start 07/25/16 at 16:20; Stop 07/25/16 at 16:21; Status DC Mannitol (Mannitol) 12.5 g STK-MED ONCE .ROUTE ; Start 07/25/16 at 16:20; Stop 07/25/16 at 16:21; Status DC Sodium Bicarbonate 50 meq 50 meq STK-MED ONCE .ROUTE ; Start 07/25/16 at 16:20; Stop 07/25/16 at 16:21; Status DC Albumin Human (Albuminar) 100 ml @ As Directed STK-MED ONCE IV ; Start at 16:20; Stop 07/25/16 at 16:21; Status DC Rocuronium [place] (Zemuron) 50 mg STK-MED ONCE .ROUTE ; Start 07/25/16 at 16:33 ; Stop 07/25/16 at 16:34; Status DC Rocuronium [place] (Zemuron) 50 mg STK-MED ONCE .ROUTE ; Start 07/25/16 at 16:33 ; Stop 07/25/16 at 16:34; Status DC Protamine Sulfate 50 mg STK-MED ONCE IV ; Start 07/25/16 at 16:34; Stop at 16:35; Status DC Sodium Bicarbonate 50 meq STK-MED ONCE .ROUTE ; Start 07/25/16 at 16:36; Stop at 16:37; Status DC Calcium Chloride 1,000 mg STK-MED ONCE IV ; Start 07/25/16 at 16:41; Stop at 16:42; Status DC Epinephrine HCl (Epinephrine Syringe) 1 mg STK-MED ONCE .ROUTE ; Start 07/25/16 at 16:41; Stop 07/25/16 at 16:42; Status DC Sodium Bicarbonate 50 meq STK-MED ONCE .ROUTE ; Start 07/25/16 at 16:52; Stop at 16:53; Status DC Sodium Bicarbonate 50 meq STK-MED ONCE .ROUTE ; Start 07/25/16 at 16:52; Stop at 16:53; Status DC Sodium Bicarbonate 50 meq STK-MED ONCE .ROUTE ; Start 07/25/16 at 16:52; Stop at 16:53; Status DC Vasopressin (Vasostrict) 20 unit STK-MED ONCE .ROUTE ; Start 07/25/16 at 16:54; Stop 07/25/16 at 16:55; Status DC Famotidine (Pepcid) 20 mg STK-MED ONCE .ROUTE ; Start 07/25/16 at 16:56; Stop at 16:57; Status DC Dexamethasone Sodium Phosphate (Decadron) 20 mg STK-MED ONCE .ROUTE ; Start 01/31 at 16:56; Stop 07/25/16 at 16:57; Status DC Diphenhydramine HCl 50 mg 50 mg STK-MED ONCE .ROUTE ; Start 07/25/16 at 16:56; Stop 07/25/16 at 16:57; Status DC Vasopressin/ Dextrose (Vasostrict) 102 ml @ 6 mls/hr CONT PRN IV SEE I/O RECORD Last administered on 08/03/16 18:28; Start 07/25/16 at 17:15; Stop 08/08 at 14:02; Status DC Sodium Bicarbonate 50 meq STK-MED ONCE .ROUTE ; Start 07/25/16 at 17:24; Stop at 17:25; Status DC Sodium Bicarbonate 50 meq 50 meq STK-MED ONCE .ROUTE ; Start 07/25/16 at 17:24; Stop 07/25/16 at 17:25; Status DC Cefazolin Sodium/ Dextrose (Ancef 2gm Premix) 50 ml @ As Directed STK-MED ONCE IV ; Start 07/25/16 at 17:32; Stop 07/25/16 at 17:33; Status DC Sodium Chloride 3 ml 3 ml PRN Q12HR PRN IV AFTER MEDS AND BLOOD DRAWS; Start at 17:30; Stop 07/29/16 at 13:38; Status DC Lactated Ringer's 1,000 ml @ 15 mls/hr Q24H IV Last administered on 07/29/16 16:45; Start 07/25/16 at 17:30; Stop 07/31/16 at 15:33; Status DC Insulin Human Regular/Sodium Chloride (Novolin R Vial/ Iv Normal Saline 150ml) 151.5 ml @ 0 mls/hr CONT PRN PRN IV SEE I/O RECORD Last administered on 03:03; Start 07/25/16 at 17:30; Stop 07/29/16 at 13:51; Status DC Dextrose 25 gm 25 gm PRN Q15MIN PRN IV LOW BLOOD SUGAR; Start 07/25/16 at 17:30 ; Stop 07/29/16 at 13:51; Status DC Dopamine HCl/ Dextrose 250 ml @ 0 mls/hr CONT PRN PRN IV SEE I/O RECORD; Start 07/25/16 at 17:30; Stop 07/26/16 at 11:41; Status DC Amiodarone HCl/ Dextrose (Cordarone) 518 ml @ 33.33 mls/ hr CONT PRN PRN IV SEE COMMENTS; Start 07/25/16 at 17:30; Status UNV Info 1 ea CONT PRN PRN MC SEE COMMENTS; Start 07/25/16 at 17:30; Stop 08/03/16 at 12:57; Status DC Info 1 ea 1 ea CONT PRN PRN MC SEE COMMENTS; Start 07/25/16 at 17:30; Stop at 13:38; Status DC Magnesium Sulfate/ Dextrose (Magnesium Sulfate PREMIX 1GM) 100 ml @ 100 mls/hr PRN DAILY PRN IV FOR MAG < 2.2 Last administered on 07/27/16 10:59; Start 01/31 at 17:30; Stop 08/08/16 at 13:38; Status DC Famotidine (Pepcid) 20 mg BID IVP Last administered on 08/03/16 09:15; Start 07/25/16 at 21:00; Stop 08/03/16 at 15:28; Status DC Metoclopramide HCl (Reglan) 10 mg PRN Q6HRS PRN IV NAUSEA/VOMITING Last administered on 08/07/16 07:26; Start 07/25/16 at 17:30; Stop 08/08/16 at 13:39 ; Status DC Morphine Sulfate 2 mg PRN Q1HR PRN IV PAIN Last administered on 07/28/16 14:21 ; Start 07/25/16 at 17:30; Stop 07/29/16 at 13:38; Status DC Acetaminophen (Tylenol) 650 mg PRN Q4HRS PRN PO MILD PAIN / TEMP; Start at 17:30; Stop 07/29/16 at 13:38; Status DC Acetaminophen (Acetaminophen Supp) [address] MILD PAIN / TEMP Last administered on 08/03/16 01:04; Start 07/25/16 at 17:30 Meperidine HCl 12.5 mg 12.5 mg PRN Q15MIN PRN IV SHIVERING; Start 07/25/16 at 17:30; Stop 07/29/16 at 13:38; Status DC Propofol (Diprivan) 100 ml @ 0 mls/hr CONT PRN PRN IV POSTOP SEDATION UNTIL EXTUBATE; Start 07/25/16 at 17:30; Stop 07/28/16 at 15:22; Status DC Aspirin (Ecotrin) 325 mg DAILYWBKFT PO Last administered on 07/29/16 09:54; Start 07/26/16 at 08:00; Stop 07/29/16 at 09:59; Status DC Aspirin (Aspirin) [address] IF UNABLE TO TAKE PO; Start 07/25/16 at 17:30; Stop 07/26/16 at 12:00; Status DC Acetaminophen/ Hydrocodone Bitart (Lortab 5/325) 1 tab PRN Q4HRS PRN PO MILD PAIN; Start 07/25/16 at 17:30; Stop 08/03/16 at 12:24; Status DC Acetaminophen/ Hydrocodone Bitart 2 tab 2 tab PRN Q4HRS PRN PO MODERATE PAIN, SEVERE PAIN; Start 07/25/16 at 17:30; Stop 08/03/16 at 12:24; Status DC Cefazolin Sodium/ Dextrose 50 ml @ 100 mls/hr Q8H IV ; Start 07/25/16 at 18:00 ; Stop 07/25/16 at 21:42; Status DC Albumin Human 250 ml @ 62.5 mls/hr 1X ONCE IV Last administered on 07/27/16 17:52; Start 07/25/16 at 17:30; Stop 07/25/16 at 21:29; Status DC Midazolam HCl 100 ml @ As Directed STK-MED ONCE IV ; Start 07/25/16 at 18:06; Stop 07/25/16 at 18:07; Status DC Midazolam HCl 100 ml @ 0 mls/hr CONT PRN IV SEE I/O RECORD Last administered on 07/25/16 18:56; Start 07/25/16 at 18:15; Stop 07/26/16 at 08:59; Status DC Vancomycin HCl 1 gm/Sodium Chloride 250 ml @ 250 mls/hr 1X ONCE IV Last administered on 07/25/16 20:56; Start 07/25/16 at 18:15; Stop 07/25/16 at 19:14 ; Status DC Piperacillin Sod/ Tazobactam Sod/ Sodium Chloride (Zosyn/Iv Sodium Chloride 0.9 % 50ml) 50 ml @ 100 mls/hr Q6HRS IV Last administered on 07/31/16 05:32; Start 07/25/16 at 18:15; Stop 07/31/16 at 10:25; Status DC Midazolam HCl (Versed) 2 mg PRN Q20MIN PRN IV SEDATION; Start 07/25/16 at 18:15 ; Stop 07/25/16 at 18:39; Status DC Midazolam HCl 5 mg 5 mg PRN Q30MIN PRN IV SEDATION; Start 07/25/16 at 18:15; Stop 07/25/16 at 18:39; Status DC Vecuronium [place] 100 mg/ Dextrose 100 ml @ 0 mls/hr 1X ONCE IV Last administered on 07/25/16 19:43; Start 07/25/16 at 18:15; Stop 07/25/16 at 18:17 ; Status DC Midazolam HCl 100 ml @ 0 mls/hr CONT PRN IV SEE I/O RECORD Last administered on 07/28/16 19:40; Start 07/25/16 at 18:45 Dobutamine HCl/ Dextrose 250 ml @ 0 mls/hr CONT PRN IV SEE I/O RECORD Last administered on 07/29/16 03:10; Start 07/25/16 at 18:45; Stop 07/29/16 at 13:38 ; Status DC Potassium Chloride 50 ml @ 50 mls/hr Q1H IV Last administered on 07/25/16 22: 58; Start 07/25/16 at 21:00; Stop 07/25/16 at 23:59; Status DC Cefazolin Sodium/ Dextrose 50 ml @ 100 mls/hr Q8H IV Last administered on 07/27 05:34; Start 07/25/16 at 22:00; Stop 07/27/16 at 06:29; Status DC Heparin Sodium (Porcine) 24031 unit/Dextrose 512.5 ml @ 0 mls/hr Q0M ONCE IV Last administered on 07/25/16 22:21; Start 07/25/16 at 22:15; Stop 07/25/16 at 22:16; Status DC Vecuronium [place]/Dextrose (Norcuron) 100 ml @ 0 mls/hr CONT PRN IV SEE I/O RECORD Last administered on 07/26/16 01:07; Start 07/26/16 at 00:45; Stop 07/29 at 13:38; Status DC Dextrose 25 gm 25 gm 1X ONCE IV Last administered on 07/26/16 01:08; Start at 01:00; Stop 07/26/16 at 01:18; Status DC Amiodarone HCl/ Dextrose (Cordarone) 259 ml @ 17.26 mls/ hr CONT PRN IV SEE I/ O RECORD Last administered on 07/30/16 13:02; Start 07/26/16 at 06:45; Stop at 15:33; Status DC Cefazolin Sodium/ Dextrose 2 gm 2 gm STK-MED ONCE IV ; Start 07/25/16 at 11:00; Stop 07/26/16 at 08:53; Status DC Lactated Ringer's 500 ml @ 5,000 mls/hr PRN Q10MIN PRN IV CVP <14; Start 07/26 at 10:00; Stop 07/29/16 at 13:38; Status DC Fentanyl Citrate (Fentanyl 600 Mcg/30 ml CUTTER HAND) 30 ml @ 0 mls/hr CONT PRN IV PROTOCOL Last administered on 07/31/16 09:12; Start 07/26/16 at 10:00; Stop at 13:31; Status DC Fentanyl Citrate (Fentanyl 2ml Vial) 25 mcg PRN Q1HR PRN IV COMM; Start at 10:00; Stop 07/29/16 at 13:38; Status DC Fentanyl Citrate (Fentanyl 2ml Vial) 50 mcg PRN Q1HR PRN IV COMM; Start at 10:00; Stop 07/29/16 at 13:38; Status DC Chlorhexidine Gluconate (Peridex) 15 ml BID MM Last administered on 08/09/16 07:46; Start 07/26/16 at 10:30 Sulfur Hexafluoride Microspheres (Lumason) 25 mg STK-MED ONCE IVP ; Start at 11:29; Stop 07/26/16 at 11:30; Status DC Aspirin 300 mg [address] Last administered on 07/28/16 07:55; Start 03/03 at 12:00; Stop 07/29/16 at 19:10; Status DC Potassium Chloride (KCl Premix 20meq) 50 ml @ 50 mls/hr 1X ONCE IV Last administered on 07/26/16 12:55; Start 07/26/16 at 12:00; Stop 07/26/16 at 12:59 ; Status DC Sulfur Hexafluoride Microspheres (Lumason) 25 mg 1X ONCE IVP Last administered on 07/26/16 11:45; Start 07/26/16 at 11:45; Stop 07/26/16 at 11:50 ; Status DC Multi-Ingred Cream/Lotion/Oil/ Oint (Artificial Tears Eye Oint) 1 adri BID OU Last administered on 08/09/16 07:46; Start 07/26/16 at 21:00 Ondansetron HCl (Zofran) 4 mg PRN Q6HRS PRN IV NAUSEA/VOMITING; Start 07/27/16 at 07:00; Stop 07/28/16 at 06:59; Status DC Fentanyl Citrate (Fentanyl 2ml Vial) 25 mcg PRN Q5MIN PRN IV MILD PAIN; Start 07/27/16 at 07:00; Stop 07/28/16 at 06:59; Status DC Fentanyl Citrate (Fentanyl 2ml Vial) 50 mcg PRN Q5MIN PRN IV MODERATE PAIN; Start 07/27/16 at 07:00; Stop 07/28/16 at 06:59; Status DC Morphine Sulfate 1 mg 1 mg PRN Q10MIN PRN IV SEVERE PAIN; Start 07/27/16 at 07: 00; Stop 07/28/16 at 06:59; Status DC Lactated Ringer's (Iv Lactated Ringers) 1,000 ml @ 30 mls/hr Q24H IV Last administered on 07/26/16 17:25; Start 07/27/16 at 07:00; Stop 07/27/16 at 18:59 ; Status DC Lidocaine HCl 2 ml PRN 1X PRN ID PRIOR TO IV START; Start 07/27/16 at 07:00; Stop 07/28/16 at 06:59; Status DC Hydromorphone HCl (Dilaudid) 0.5 mg PRN Q10MIN PRN IV SEV PAIN, Second choice; Start 07/27/16 at 07:00; Stop 07/28/16 at 06:59; Status DC Prochlorperazine Edisylate 5 mg 5 mg PACU PRN PRN IV NAUSEA, MRX1; Start at 07:00; Stop 07/28/16 at 06:59; Status DC Heparin Sodium (Porcine) 47418 unit/Dextrose 512.5 ml @ 0 mls/hr Q0M ONCE IV Last administered on 07/26/16 19:40; Start 07/26/16 at 18:30; Stop 07/26/16 at 18:31; Status DC Amiodarone HCl 150 mg/Dextrose 103 ml @ 618 mls/hr 1X ONCE IV Last administered on 07/26/16 19:25; Start 07/26/16 at 19:15; Stop 07/26/16 at 19:24 ; Status DC Norepinephrine Bitartrate 8 mg/ Sodium Chloride 258 ml @ 1.93 mls/hr CONT PRN IV SEE I/O RECORD Last administered on 08/03/16 11:12; Start 07/26/16 at 19:15 Amiodarone HCl 900 mg/Dextrose 518 ml @ 0 mls/hr CONT PRN IV PER PROTOCOL; Start 07/26/16 at 19:15; Stop 07/27/16 at 12:11; Status DC Milrinone Lactate/ Dextrose 100 ml @ 0 mls/hr CONT PRN IV SEE I/O RECORD Last administered on 07/26/16 20:03; Start 07/26/16 at 19:45; Stop 07/29/16 at 13:51 ; Status DC Calcium Chloride/ Sodium Chloride (Iv Sodium Chloride 0.9% 100ml) 120 ml @ 240 mls/hr 1X ONCE IV Last administered on 07/26/16 21:04; Start 07/26/16 at 21: 30; Stop 07/26/16 at 21:59; Status DC Digoxin 500 mcg 500 mcg 1X ONCE IV Last administered on 07/26/16 21:55; Start 07/26/16 at 21:45; Stop 07/26/16 at 21:46; Status DC Cefazolin Sodium/ Sodium Chloride (Ancef/Iv Sodium Chloride 0.9% 500ml Bag) 500 ml @ 500 mls/hr 1X PERIOP ONCE IRR Last administered on 07/27/16 14:37; Start 07/27/16 at 10:00; Stop 07/27/16 at 10:59; Status DC Vancomycin HCl (Vanco) 10 gm 1X ONCE CEMENT Last administered on 07/27/16 14: 37; Start 07/27/16 at 12:30; Stop 07/27/16 at 12:31; Status DC Rocuronium [place] (Zemuron) 100 mg STK-MED ONCE .ROUTE ; Start 07/27/16 at 12: 32; Stop 07/27/16 at 12:33; Status DC Lorazepam (Ativan) 2 mg STK-MED ONCE .ROUTE ; Start 07/27/16 at 14:13; Stop 04/02 at 14:14; Status DC Phenylephrine HCl 1 mg 1 mg STK-MED ONCE IV ; Start 07/27/16 at 14:18; Stop 04/02 at 14:19; Status DC Albumin Human (Plasmanate) 250 ml @ 62.5 mls/hr 1X ONCE IV Last administered on 07/27/16 17:52; Start 07/27/16 at 17:15; Stop 07/27/16 at 21:14; Status DC Sodium Bicarbonate 50 meq STK-MED ONCE .ROUTE ; Start 07/27/16 at 17:39; Stop at 17:40; Status DC Sodium Bicarbonate 50 meq 1X ONCE IV Last administered on 07/27/16 17:51; Start 07/27/16 at 18:00; Stop 07/27/16 at 18:01; Status DC Sodium Bicarbonate 50 meq 1X ONCE IV Last administered on 07/27/16 17:52; Start 07/27/16 at 18:00; Stop 07/27/16 at 18:01; Status DC Fentanyl Citrate (Fentanyl 2ml Vial) 25 mcg PRN Q5MIN PRN IV MILD PAIN; Start 07/28/16 at 07:00; Stop 07/29/16 at 06:59; Status DC Fentanyl Citrate (Fentanyl 2ml Vial) 50 mcg PRN Q5MIN PRN IV MODERATE PAIN; Start 07/28/16 at 07:00; Stop 07/29/16 at 06:59; Status DC Morphine Sulfate 1 mg 1 mg PRN Q10MIN PRN IV SEVERE PAIN; Start 07/28/16 at 07: 00; Stop 07/29/16 at 06:59; Status DC Lactated Ringer's (Iv Lactated Ringers) 1,000 ml @ 30 mls/hr Q24H IV Last administered on 07/28/16 06:49; Start 07/28/16 at 06:49; Stop 07/28/16 at 18:48 ; Status DC Lidocaine HCl 2 ml PRN 1X PRN ID PRIOR TO IV START; Start 07/28/16 at 07:00; Stop 07/29/16 at 06:59; Status DC Hydromorphone HCl (Dilaudid) 0.5 mg PRN Q10MIN PRN IV SEV PAIN, Second choice; Start 07/28/16 at 07:00; Stop 07/29/16 at 06:59; Status DC Rocuronium [place] 50 mg 50 mg STK-MED ONCE .ROUTE ; Start 07/28/16 at 07:27; Stop 07/28/16 at 07:28; Status DC Cefazolin Sodium/ Sodium Chloride (Ancef/Iv Sodium Chloride 0.9% 500ml Bag) 500 ml @ 500 mls/hr 1X PERIOP ONCE IRR Last administered on 07/28/16 09:25; Start 07/28/16 at 08:00; Stop 07/28/16 at 08:59; Status DC Cellulose 1 each STK-MED ONCE .ROUTE ; Start 07/28/16 at 07:42; Stop 07/28/16 at 07:43; Status DC Bupivacaine HCl/ Epinephrine Bitart 50 ml 50 ml STK-MED ONCE .ROUTE ; Start at 07:42; Stop 07/28/16 at 07:43; Status DC Heparin Sodium (Porcine)/Sodium Chloride (Heparin Sodium/ Iv Sodium Chloride 0.9 % 500ml Bag) 505 ml @ 505 mls/hr 1X PERIOP ONCE IRR Last administered on 07/28 10:19; Start 07/28/16 at 08:15; Stop 07/28/16 at 09:14; Status DC Lorazepam 2 mg 2 mg STK-MED ONCE .ROUTE ; Start 07/28/16 at 08:29; Stop at 08:30; Status DC Magnesium Sulfate/ Dextrose (Magnesium Sulfate PREMIX 1GM) 100 ml @ 100 mls/hr 1X ONCE IV Last administered on 07/28/16t 13:09; Start 07/28/16 at 09:00; Stop 07/28/16 at 09:59; Status DC Vasopressin (Vasostrict) 20 unit STK-MED ONCE .ROUTE ; Start 07/28/16 at 09:03; Stop 07/28/16 at 09:04; Status DC Epinephrine HCl (Epinephrine Syringe) 1 mg STK-MED ONCE .ROUTE ; Start 07/28/16 at 09:09; Stop 07/28/16 at 09:10; Status DC Calcium Chloride 1,000 mg STK-MED ONCE IV ; Start 07/28/16 at 09:09; Stop at 09:10; Status DC Phenylephrine HCl 1 mg STK-MED ONCE IV ; Start 07/28/16 at 09:54; Stop 07/28/16 at 09:55; Status DC Sevoflurane 60 ml 60 ml STK-MED ONCE IH ; Start 07/28/16 at 09:54; Stop at 09:55; Status DC Epinephrine HCl/ Sodium Chloride (Adrenalin/Iv Sodium Chloride 0.9% 250ml) 254 ml @ 3.81 mls/hr 1X ONCE IV ; Start 07/28/16 at 10:00; Stop 07/29/16 at 19:10 ; Status DC Heparin Sodium (Porcine) 68067 unit 10,000 unit STK-MED ONCE .ROUTE ; Start at 09:57; Stop 07/28/16 at 09:58; Status DC Albumin Human (Plasmanate) 500 ml @ As Directed STK-MED ONCE IV ; Start at 09:57; Stop 07/28/16 at 09:58; Status DC Iohexol 100 ml 100 ml STK-MED ONCE .ROUTE ; Start 07/28/16 at 10:39; Stop at 10:40; Status DC Heparin Sodium/ Sodium Chloride 500 ml @ As Directed STK-MED ONCE .ROUTE ; Start 07/28/16 at 10:39; Stop 07/28/16 at 10:40; Status DC Iohexol 100 ml 100 ml STK-MED ONCE .ROUTE ; Start 07/28/16 at 10:43; Stop at 10:44; Status DC Heparin Sodium/ Sodium Chloride 500 ml @ As Directed STK-MED ONCE .ROUTE ; Start 07/28/16 at 11:21; Stop 07/28/16 at 11:22; Status DC Albuterol Sulfate (Ventolin Neb Soln) 2.5 mg RTQID NEB Last administered on 08:46; Start 07/28/16 at 12:00; Stop 07/30/16 at 17:05; Status DC Furosemide (Lasix) 40 mg 1X ONCE IVP Last administered on 07/28/16 13:16; Start 07/28/16 at 13:15; Stop 07/28/16 at 13:16; Status DC Furosemide (Lasix) 40 mg 1X ONCE IVP Last administered on 07/28/16 13:19; Start 07/28/16 at 14:00; Stop 07/28/16 at 14:01; Status DC Heparin Sodium/ Sodium Chloride 1000 unit 1,000 unit CONT PRN IV ART LINE FLUSH Last administered on 08/02/16 06:47; Start 07/28/16 at 14:45; Stop at 13:39; Status DC Albumin Human 250 ml @ 62.5 mls/hr PRN Q1HR PRN IV SEE COMMENTS Last administered on 08/02/16 16:12; Start 07/28/16 at 15:15; Stop 08/09/16 at 08:10 ; Status DC Furosemide 100 mg/ Sodium Chloride 100 ml @ 5 mls/hr CONT PRN IV SEE I/O RECORD Last administered on 07/30/16 09:50; Start 07/28/16 at 15:30; Stop 07/31 at 13:31; Status DC Potassium Chloride 50 ml @ 50 mls/hr Q1H IV Last administered on 07/28/16 19: 39; Start 07/28/16 at 18:30; Stop 07/28/16 at 20:29; Status DC Potassium Chloride (KCl Premix 20meq) 50 ml @ 50 mls/hr Q1H IV Last administered on 07/29/16 09:36; Start 07/29/16 at 07:00; Stop 07/29/16 at 08:59 ; Status DC Lorazepam (Ativan) 2 mg STK-MED ONCE .ROUTE ; Start 07/28/16 at 08:30; Stop at 08:16; Status DC Aspirin (Arti Aspirin) 325 mg DAILYWBKFT PO Last administered on 08/09/16 07: 46; Start 07/30/16 at 08:00 Docusate Sodium 100 mg 100 mg DAILY PO Last administered on 07/31/16 07:59; Start 07/30/16 at 09:00; Stop 07/31/16 at 11:00; Status DC Dobutamine HCl/ Dextrose 250 ml @ 12.1 mls/hr CONT PRN IV PER PROTOCOL Last administered on 08/02/16 18:03; Start 07/29/16 at 13:30; Stop 08/08/16 at 13:39 ; Status DC Potassium Chloride 50 ml @ 50 mls/hr Q1H IV Last administered on 07/29/16 22: 39; Start 07/29/16 at 20:00; Stop 07/29/16 at 22:59; Status DC Potassium Chloride (KCl Premix 20meq) 50 ml @ 50 mls/hr Q1H IV Last administered on 07/30/16 09:19; Start 07/30/16 at 07:00; Stop 07/30/16 at 08:59 ; Status DC Ipratropium [place] (Atrovent) 0.5 mg RTQID NEB Last administered on 08/09/16 12:04; Start 07/30/16 at 12:30 Digoxin 500 mcg 500 mcg 1X ONCE IV Last administered on 07/30/16 13:01; Start 07/30/16 at 12:15; Stop 07/30/16 at 12:19; Status DC Dexmedetomidine HCl/Sodium Chloride (Precedex/Iv Sodium Chloride 0.9% 50ml) 50 ml @ 0 mls/hr CONT PRN IV PER PROTOCOL Last administered on 08/04/16 05:20; Start 07/30/16 at 13:30; Stop 08/08/16 at 14:02; Status DC Atropine Sulfate 0.5 mg PRN Q5MIN PRN IV SEE COMMENTS; Start 07/30/16 at 13:30 Amiodarone HCl (Cordarone) 400 mg ONCE ONCE PO Last administered on 07/30/16 15:01; Start 07/30/16 at 13:30; Stop 07/30/16 at 13:46; Status DC Amiodarone HCl (Cordarone) 400 mg BID PO Last administered on 08/08/16 10:54; Start 07/30/16 at 21:00; Stop 08/08/16 at 14:02; Status DC Digoxin 125 mcg 125 mcg DAILY IV Last administered on 08/02/16 08:56; Start at 09:00; Stop 08/03/16 at 14:27; Status DC Albumin Human (Albuminar) 50 ml @ 50 mls/hr 1X ONCE IV Last administered on 16:26; Start 07/30/16 at 16:30; Stop 07/30/16 at 17:29; Status DC Ibuprofen (Motrin) 200 mg PRN Q6HRS PRN PO fever; Start 07/30/16 at 19:45; Stop 08/01/16 at 12:22; Status DC Metoprolol Tartrate (Lopressor) 2.5 mg 1X ONCE IVP Last administered on 20:23; Start 07/30/16 at 20:30; Stop 07/30/16 at 20:31; Status DC Metoprolol Tartrate 5 mg 5 mg PRN Q2HR PRN IVP HYPERTENSION Last administered on 08/04/16 22:09; Start 07/30/16 at 22:30 Potassium Chloride (KCl Premix 20meq) 50 ml @ 50 mls/hr Q1H IV Last administered on 07/31/16 09:04; Start 07/31/16 at 07:00; Stop 07/31/16 at 08:59 ; Status DC Metoprolol Tartrate (Lopressor) 12.5 mg BID NG Last administered on 08/09/16 07:46; Start 07/31/16 at 10:00 Docusate Sodium (Colace Solution) 100 mg PRN DAILY PRN PO constipation Last administered on 08/01/16 08:40; Start 07/31/16 at 11:00; Stop 08/08/16 at 13:39 ; Status DC Hydralazine HCl (Apresoline) 10 mg PRN Q2HRS PRN IVP ELEVATED BP, SEE COMMENTS Last administered on 08/01/16 16:35; Start 07/31/16 at 13:30 Fentanyl Citrate (Fentanyl 2ml Vial) 50 mcg PRN Q2HR PRN IV PAIN Last administered on 08/02/16 12:57; Start 07/31/16 at 13:45 Furosemide (Lasix) 40 mg TID IVP Last administered on 08/02/16 05:49; Start at 14:00; Stop 08/02/16 at 15:33; Status DC Alteplase, Recombinant (Cathflo) 2 mg 1X ONCE INT CAT Last administered on 23:34; Start 07/31/16 at 23:15; Stop 07/31/16 at 23:16; Status DC Haloperidol Lactate (Haldol) 5 mg PRN Q6HRS PRN IVP MODERATE AGITATION Last administered on 08/07/16 07:26; Start 08/01/16 at 21:00 Haloperidol Lactate 10 mg 10 mg PRN Q6HRS PRN IVP SEVERE AGITATION Last administered on 08/07/16 21:04; Start 08/01/16 at 23:45 Propofol 100 ml @ 0 mls/hr CONT PRN IV SEE I/O RECORD Last administered on 08/02 11:43; Start 08/02/16 at 02:45; Stop 08/08/16 at 14:02; Status DC Piperacillin Sod/ Tazobactam Sod/ Sodium Chloride (Zosyn/Iv Sodium Chloride 0.9 % 50ml) 50 ml @ 100 mls/hr Q6HRS IV Last administered on 08/02/16 13:17; Start 08/02/16 at 12:00; Stop 08/02/16 at 15:43; Status DC Vancomycin HCl 1 each 1 each PRN DAILY PRN MC SEE COMMENTS Last administered on 08/02/16 13:20; Start 08/02/16 at 11:45; Stop 08/03/16 at 15:24; Status DC Vancomycin HCl 2 gm/Sodium Chloride 500 ml @ 250 mls/hr 1X ONCE IV Last administered on 08/02/16 11:52; Start 08/02/16 at 12:00; Stop 08/02/16 at 13:59 ; Status DC Sodium Chloride (Iv Sodium Chloride 0.9% 500ml Bag) 500 ml @ 500 mls/hr 1X ONCE IV Last administered on 08/02/16 12:39; Start 08/02/16 at 12:45; Stop at 13:44; Status DC Vecuronium [place] (Norcuron Bolus) 10 mg 1X STAT IV Last administered on 08/02 13:34; Start 08/02/16 at 13:17; Stop 08/02/16 at 13:23; Status DC Vancomycin HCl 1 each 1 each 1X ONCE MC ; Start 08/03/16 at 23:30; Stop at 23:30; Status DC Vancomycin HCl 1.25 gm/Sodium Chloride 250 ml @ 167 mls/hr Q12H IV Last administered on 08/03/16 00:33; Start 08/03/16 at 00:00; Stop 08/03/16 at 11:07 ; Status DC Fentanyl Citrate (Fentanyl 600 Mcg/30 ml CUTTER HAND) 30 ml @ 0 mls/hr CONT PRN PRN IV PROTOCOL Last administered on 08/06/16 02:18; Start 08/02/16 at 13:30; Stop at 13:39; Status DC Naloxone HCl 0.4 mg 0.4 mg PRN Q2MIN PRN IV SEE INSTRUCTIONS; Start 08/02/16 at 13:30 Micafungin Sodium 100 mg/Dextrose 100 ml @ 100 mls/hr Q24H IV Last administered on 08/08/16 17:12; Start 08/02/16 at 17:00 Lactated Ringer's 1,000 ml @ 1,000 mls/hr 1X ONCE IV Last administered on 15:45; Start 08/02/16 at 15:45; Stop 08/02/16 at 16:44; Status DC Piperacillin Sod/ Tazobactam Sod 4.5 gm/Sodium Chloride 100 ml @ 200 mls/hr Q6HRS IV Last administered on 08/03/16 12:00; Start 08/02/16 at 18:00; Stop at 14:02; Status DC Albumin Human (Plasmanate) 500 ml @ 125 mls/hr 1X ONCE IV Last administered on 08/02/16 20:37; Start 08/02/16 at 20:30; Stop 08/03/16 at 00:29; Status DC Furosemide (Lasix) 40 mg 1X ONCE IVP Last administered on 08/03/16 00:16; Start 08/02/16 at 20:30; Stop 08/02/16 at 20:31; Status DC Acetaminophen (Tylenol) 650 mg 1X ONCE NG Last administered on 08/03/16 02:03 ; Start 08/03/16 at 02:15; Stop 08/03/16 at 02:16; Status DC Ketorolac Tromethamine 15 mg 15 mg 1X ONCE IV Last administered on 08/03/16 02:03; Start 08/03/16 at 02:15; Stop 08/03/16 at 02:16; Status DC Lactated Ringer's (Iv Lactated Ringers) 500 ml @ 500 mls/hr 1X ONCE IV Last administered on 08/03/16 10:15; Start 08/03/16 at 10:15; Stop 08/03/16 at 11:14 ; Status DC Sodium Bicarbonate 50 meq 1X ONCE IV Last administered on 08/03/16 10:44; Start 08/03/16 at 10:15; Stop 08/03/16 at 10:20; Status DC Calcium Gluconate 1000 mg 1,000 mg 1X ONCE IVP ; Start 08/03/16 at 12:15; Stop 08/03/16 at 12:16; Status DC Sodium Bicarbonate 150 meq/Dextrose/ Sodium Chloride 1,150 ml @ 100 mls/hr [id number] PRN IV .; Start 08/03/16 at 12:30; Stop 08/03/16 at 13:03; Status DC Magnesium Sulfate/ Dextrose 50 ml @ 25 mls/hr PRN DAILY PRN IV for Mag < 1.7 on am labs; Start 08/03/16 at 12:30 Sodium Bicarbonate 150 meq/Dextrose 1,150 ml @ 100 mls/hr [id number] IV Last administered on 08/04/16 04:31; Start 08/03/16 at 13:30; Stop 08/04/16 at 08:31 ; Status DC Calcium Chloride 2000 mg/Sodium Chloride 120 ml @ 240 mls/hr 1X ONCE IV Last administered on 08/03/16 13:30; Start 08/03/16 at 13:30; Stop 08/03/16 at 13:59 ; Status DC Piperacillin Sod/ Tazobactam Sod/ Sodium Chloride (Zosyn/Iv Sodium Chloride 0.9 % 50ml) 50 ml @ 100 mls/hr Q6HRS IV Last administered on 08/08/16 12:09; Start 08/03/16 at 18:00; Stop 08/08/16 at 15:35; Status DC Heparin Sodium (Porcine) (Heparin Sodium) 10,000 unit STK-MED ONCE .ROUTE ; Start 08/03/16 at 14:31; Stop 08/03/16 at 14:32; Status DC Lidocaine/Sodium Bicarbonate (Buffered Lidocaine 1%) 20 ml STK-MED ONCE IJ ; Start 08/03/16 at 14:31; Stop 08/03/16 at 14:32; Status DC Heparin Sodium/ Sodium Chloride 60 unit 1X ONCE IV Last administered on 16:17; Start 08/03/16 at 14:45; Stop 08/03/16 at 14:46; Status DC Heparin Sodium (Porcine) (Heparin Sodium) 2,500 unit 1X ONCE INT CAT Last administered on 08/03/16 16:16; Start 08/03/16 at 14:45; Stop 08/03/16 at 14:46 ; Status DC Lidocaine/Sodium Bicarbonate (Buffered Lidocaine 1%) 3 ml 1X ONCE IJ Last administered on 08/03/16 16:16; Start 08/03/16 at 14:45; Stop 08/03/16 at 14:46 ; Status DC Fentanyl Citrate (Fentanyl 2ml Vial) 25 mcg PRN Q5MIN PRN IV MILD PAIN; Start 08/04/16 at 07:00; Stop 08/05/16 at 06:59; Status DC Fentanyl Citrate (Fentanyl 2ml Vial) 50 mcg PRN Q5MIN PRN IV MODERATE PAIN; Start 08/04/16 at 07:00; Stop 08/05/16 at 06:59; Status DC Morphine Sulfate 1 mg 1 mg PRN Q10MIN PRN IV SEVERE PAIN; Start 08/04/16 at 07: 00; Stop 08/05/16 at 06:59; Status DC Lactated Ringer's (Iv Lactated Ringers) 1,000 ml @ 0 mls/hr Q0M IV ; Start at 07:00; Stop 08/04/16 at 18:59; Status DC Lidocaine HCl 2 ml PRN 1X PRN ID PRIOR TO IV START; Start 08/04/16 at 07:00; Stop 08/05/16 at 06:59; Status DC Hydromorphone HCl (Dilaudid) 0.5 mg PRN Q10MIN PRN IV SEV PAIN, Second choice; Start 08/04/16 at 07:00; Stop 08/05/16 at 06:59; Status DC Famotidine (Pepcid) 20 mg DAILY IVP Last administered on 08/05/16 07:43; Start 08/04/16 at 09:00; Stop 08/06/16 at 07:05; Status DC Insulin Aspart (Novolog) 0-7 UNITS TIDWMEALS SQ Last administered on 08/07/16 16:37; Start 08/03/16 at 19:00 Dextrose 12.5 gm 12.5 gm PRN Q15MIN PRN IV SEE COMMENTS; Start 08/03/16 at 18: 30 Sodium Chloride 1,000 ml @ 1,000 mls/hr Q1H PRN IV hypotension; Start 08/03/16 at 18:33; Stop 08/04/16 at 00:32; Status DC Sodium Chloride (Iv Sodium Chloride 0.9% 1000ml Bag) 1,000 ml @ 400 mls/hr Q2H30M PRN IV PATENCY; Start 08/03/16 at 18:33; Stop 08/04/16 at 06:32; Status DC Info 1 each 1 each PRN DAILY PRN MC SEE COMMENTS; Start 08/03/16 at 18:45; Stop 08/06/16 at 09:01; Status DC Sodium Chloride 1,000 ml @ 1,000 mls/hr Q1H PRN IV hypotension; Start 08/04/16 at 07:44; Stop 08/04/16 at 13:43; Status DC Albumin Human (Albuminar) 200 ml @ 200 mls/hr 1X PRN PRN IV Hypotension Last administered on 08/04/16 08:48; Start 08/04/16 at 07:45; Stop 08/04/16 at 13:44 ; Status DC Diphenhydramine HCl (Benadryl) 25 mg 1X PRN PRN IV ITCHING; Start 08/04/16 at 07:45; Stop 08/05/16 at 07:44; Status DC Diphenhydramine HCl (Benadryl) 25 mg 1X PRN PRN IV ITCHING; Start 08/04/16 at 07:45; Stop 08/05/16 at 07:44; Status DC Sodium Chloride (Normal Saline Flush) 10 ml 1X PRN PRN IV AP catheter pack; Start 08/04/16 at 07:45; Stop 08/05/16 at 07:44; Status DC Sodium Chloride 10 ml 10 ml 1X PRN PRN IV TERADATA DEVELOPER catheter pack; Start 08/04/16 at 07:45; Stop 08/05/16 at 07:44; Status DC Sodium Chloride (Iv Sodium Chloride 0.9% 1000ml Bag) 1,000 ml @ 400 mls/hr Q2H30M PRN IV PATENCY; Start 08/04/16 at 07:44; Stop 08/04/16 at 19:43; Status DC Info (PHARMACY MONITORING -- do not chart) 1 each PRN DAILY PRN MC SEE COMMENTS ; Start 08/04/16 at 07:45; Stop 08/06/16 at 09:02; Status DC Heparin Sodium (Porcine) 5,000 unit Q12HR SQ Last administered on 08/09/16 07: 44; Start 08/04/16 at 21:00 Sevelamer Carbonate 2.4 gm 2.4 gm BID FT Last administered on 08/09/16 07:46; Start 08/05/16 at 10:00 Sodium Chloride 1,000 ml @ 1,000 mls/hr Q1H PRN IV hypotension; Start 08/05/16 at 12:28; Stop 08/05/16 at 18:27; Status DC Albumin Human (Albuminar) 200 ml @ 200 mls/hr 1X PRN PRN IV Hypotension; Start 08/05/16 at 12:30; Stop 08/05/16 at 18:29; Status DC Sodium Chloride (Normal Saline Flush) 10 ml 1X PRN PRN IV AP catheter pack; Start 08/05/16 at 12:30; Stop 08/06/16 at 12:29; Status DC Sodium Chloride 10 ml 10 ml 1X PRN PRN IV TERADATA DEVELOPER catheter pack; Start 08/05/16 at 12:30; Stop 08/06/16 at 12:29; Status DC Sodium Chloride (Iv Sodium Chloride 0.9% 1000ml Bag) 1,000 ml @ 400 mls/hr Q2H30M PRN IV PATENCY; Start 08/05/16 at 12:28; Stop 08/06/16 at 00:27; Status DC Info 1 each 1 each PRN DAILY PRN MC SEE COMMENTS; Start 08/05/16 at 12:30; Stop 08/08/16 at 07:15; Status DC Propofol (Diprivan) 20 ml @ As Directed STK-MED ONCE IV ; Start 08/05/16 at 13: 01; Stop 08/05/16 at 13:02; Status DC Rocuronium [place] (Zemuron) 50 mg STK-MED ONCE .ROUTE ; Start 08/05/16 at 13:01 ; Stop 08/05/16 at 13:02; Status DC Dexamethasone Sodium Phosphate (Decadron) 20 mg STK-MED ONCE .ROUTE ; Start at 13:05; Stop 08/05/16 at 13:06; Status DC Famotidine (Pepcid) 20 mg STK-MED ONCE .ROUTE ; Start 08/05/16 at 13:05; Stop at 13:06; Status DC Ondansetron HCl (Zofran) 4 mg STK-MED ONCE .ROUTE ; Start 08/05/16 at 13:05; Stop 08/05/16 at 13:06; Status DC Midazolam HCl (Versed) 2 mg STK-MED ONCE .ROUTE ; Start 08/05/16 at 13:13; Stop 08/05/16 at 13:14; Status DC Vasopressin (Vasostrict) 20 unit STK-MED ONCE .ROUTE ; Start 08/05/16 at 13:58; Stop 08/05/16 at 13:59; Status DC Sodium Chloride (Sodium Chloride) 50 ml STK-MED ONCE IJ ; Start 08/05/16 at 13: 58; Stop 08/05/16 at 13:59; Status DC Sevoflurane (Ultane) 60 ml STK-MED ONCE IH ; Start 08/05/16 at 14:29; Stop 08/05 at 14:30; Status DC Alprazolam (Xanax) 0.25 mg PRN Q8HRS PRN PEG ANXIETY / AGITATION Last administered on 08/09/16 07:46; Start 08/05/16 at 14:45 Lidocaine HCl (Xylocaine-Mpf 1% Vial) 5 ml STK-MED ONCE INJ Last administered on 08/05/16 14:55; Start 08/05/16 at 14:55; Stop 08/05/16 at 15:11; Status DC Pantoprazole Sodium 40 mg 40 mg DAILYAC IVP Last administered on 08/09/16 07: 44; Start 08/06/16 at 07:30 Linezolid 300 ml @ 300 mls/hr Q12HR IV Last administered on 08/09/16 07:43; Start 08/06/16 at 11:30; Stop 08/09/16 at 07:57; Status DC Sodium Chloride 1,000 ml @ 1,000 mls/hr Q1H PRN IV hypotension; Start 08/06/16 at 13:17; Stop 08/06/16 at 19:16; Status DC Sodium Chloride (Iv Sodium Chloride 0.9% 1000ml Bag) 1,000 ml @ 400 mls/hr Q2H30M PRN IV PATENCY; Start 08/06/16 at 13:17; Stop 08/07/16 at 01:16; Status DC Info (PHARMACY MONITORING -- do not chart) 1 each PRN DAILY PRN MC SEE COMMENTS ; Start 08/06/16 at 13:30; Status UNV Darbepoetin Nick (Aranesp) 60 mcg [id number] SQ Last administered on 08/07/16 21 :04; Start 08/07/16 at 21:00 Zolpidem Tartrate 5 mg 5 mg HS PO Last administered on 08/08/16 21:15; Start 08/07/16 at 21:00 Sodium Chloride 1,000 ml @ 1,000 mls/hr Q1H PRN IV hypotension; Start 08/08/16 at 07:01; Stop 08/08/16 at 13:00; Status DC Albumin Human (Albuminar) 200 ml @ 200 mls/hr 1X PRN PRN IV Hypotension Last administered on 08/08/16 09:43; Start 08/08/16 at 07:15; Stop 08/08/16 at 13:14 ; Status DC Acetaminophen (Tylenol) 500 mg 1X PRN PRN PO MILD PAIN / TEMP; Start 08/08/16 at 07:15; Stop 08/09/16 at 07:14; Status DC Diphenhydramine HCl (Benadryl) 25 mg 1X PRN PRN IV ITCHING; Start 08/08/16 at 07:15; Stop 08/09/16 at 07:14; Status DC Diphenhydramine HCl (Benadryl) 25 mg 1X PRN PRN IV ITCHING; Start 08/08/16 at 07:15; Stop 08/09/16 at 07:14; Status DC Labetalol HCl (Normodyne) 10 mg PRN Q1HR PRN IVP SBP > 180; Start 08/08/16 at 07:15; Stop 08/09/16 at 07:14; Status DC Clonidine HCl 0.1 mg 0.1 mg 1X PRN PRN PO SBP > 180; Start 08/08/16 at 07:15; Stop 08/09/16 at 07:14; Status DC Sodium Chloride (Iv Sodium Chloride 0.9% 1000ml Bag) 1,000 ml @ 400 mls/hr Q2H30M PRN IV PATENCY; Start 08/08/16 at 07:01; Stop 08/08/16 at 19:00; Status DC Info (PHARMACY MONITORING -- do not chart) 1 each PRN DAILY PRN MC SEE COMMENTS ; Start 08/08/16 at 07:15 Amiodarone HCl 400 mg 400 mg DAILY PO Last administered on 08/09/16 07:45; Start 08/09/16 at 09:00 Piperacillin Sod/ Tazobactam Sod/ Sodium Chloride (Zosyn/Iv Sodium Chloride 0.9 % 50ml) 50 ml @ 100 mls/hr Q8HRS IV Last administered on 08/09/16 14:12; Start 08/08/16 at 22:00 Linezolid (Zyvox) 600 mg BID PEG ; Start 08/09/16 at 21:00 Lactobacillus Acidophilus (Bacid, Rafaela-Bid) 1 tab TIDWMEALS PO ; Start 08/09/16 at 08:00 Calcium Carbonate/ Glycine (Tums) 1,000 mg TID PO ; Start 08/09/16 at 09:00 Heparin Sodium (Porcine) (Heparin Sodium) 10,000 unit STK-MED ONCE .ROUTE ; Start 08/09/16 at 14:49; Stop 08/09/16 at 14:50; Status DC Lidocaine/ Epinephrine 20 ml 20 ml STK-MED ONCE .ROUTE ; Start 08/09/16 at 14:49 ; Stop 08/09/16 at 14:50; Status DC Heparin Sodium/ Sodium Chloride 500 ml @ As Directed STK-MED ONCE .ROUTE ; Start 08/09/16 at 14:49; Stop 08/09/16 at 14:50; Status DC Active Scripts Active Reported Amlodipine Besylate 5 Mg Tablet 5 Mg PO DAILY Pradaxa (Dabigatran Etexilate Mesylate) 150 Mg Capsule 1 Cap PO BID Metoprolol Succinate ( Xl ) (Metoprolol Succinate) 100 Mg Tab.er.24h 1 Tab PO DAILY Vitals/I & O Vital Sign - Last 24 Hours 08/08/16 08/08/16 08/08/16 08/08/16 16:00 16:00 16:50 17:00 Temp 98.3 98.3 Pulse 91 93 Resp B/P 98/58 115/70 Pulse Ox 100 100 100 O2 Delivery Mechanical Ventilator Tracheal Collar Tracheal Collar Tracheal Collar O2 Flow Rate 19.0 08/08/16 08/08/16 08/08/16 08/08/16 18:00 19:00 20:00 20:00 Temp 97.6 97.6 Pulse 92 94 92 Resp B/P 121/72 111/67 Pulse Ox 98 100 100 O2 Delivery Tracheal Collar Tracheal Collar Tracheal Collar Trach Collar 08/08/16 08/08/16 08/08/16 08/08/16 20:34 21:00 21:05 21:15 Pulse 102 85 Resp B/P 114/70 114/70 Pulse Ox 100 99 99 O2 Delivery Tracheal Collar Tracheal Collar Ventilator O2 Flow Rate 10.0 08/08/16 08/08/16 08/08/16 08/08/16 22:00 23:00 23:38 23:59 Pulse 77 93 Resp B/P 109/61 110/73 Pulse Ox 100 99 99 O2 Delivery Tracheal Collar Tracheal Collar Ventilator Mechanical Ventilator 08/08/16 08/09/16 08/09/16 08/09/16 23:59 01:00 01:30 02:00 Temp 97.7 97.7 Pulse 88 93 85 Resp 26 26 22 B/P 112/64 118/68 87/54 Pulse Ox 100 99 100 100 O2 Delivery Ventilator Ventilator Ventilator Ventilator 08/09/16 08/09/16 08/09/16 08/09/16 03:08 03:40 04:00 04:00 Temp 98.9 98.9 Pulse 82 83 Resp 19 19 B/P 117/58 104/53 Pulse Ox 97 99 100 O2 Delivery Ventilator Ventilator Ventilator Mechanical Ventilator 08/09/16 08/09/16 08/09/16 08/09/16 05:00 05:30 06:00 07:00 Pulse 79 81 76 Resp 20 20 20 B/P 103/63 114/64 100/59 Pulse Ox 100 99 100 99 O2 Delivery Ventilator Ventilator Ventilator Ventilator 08/09/16 08/09/16 08/09/16 08/09/16 07:45 07:46 08:00 08:00 Temp 98.1 98.1 Pulse 76 76 90 Resp 27 B/P 100/59 100/59 110/63 Pulse Ox 99 O2 Delivery Trach Collar Ventilator 08/09/16 08/09/16 08/09/16 08/09/16 08:17 09:00 10:00 11:00 Pulse 75 92 83 Resp 20 20 28 B/P 95/55 112/63 111/68 Pulse Ox 100 100 100 100 O2 Delivery Ventilator Ventilator Tracheal Collar Tracheal Collar 08/09/16 08/09/16 08/09/16 08/09/16 12:00 12:00 12:04 13:00 Temp 98.2 98.2 Pulse 83 83 Resp 28 28 B/P 108/68 110/68 Pulse Ox 100 100 100 O2 Delivery Trach Collar Tracheal Collar Tracheal Collar Tracheal Collar O2 Flow Rate 10.0 08/09/16 14:00 Pulse 85 Resp 30 B/P 111/67 Pulse Ox 97 O2 Delivery Tracheal Collar Intake and Output 08/08/16 08/08/16 08/09/16 15:00 23:00 07:00 Intake Total 480 ml 1015 ml 757 ml Output Total 113 ml 150 ml 225 ml Balance 367 ml 865 ml 532 ml MICHEL,NIAL K III DO Aug 09, 2016 15:21
[2016-08-09] MEDS ORDERED: LIDOCAINE 1%/EPI 1:100,000 20 ML VIAL. INJ ONE (15:30)
--- NOTE | 2016-08-09 15:43 | PDOC ---
Exam Manager Nicu Manager Nicu Beka Back Up Machine Operator Back Up Machine Operator Luigi Urbina Pre-Procedure Diagnosis Pre-Procedure Diagnosis JAKE/ATN---needs ongoing HD. Conversion from temp to tunneled HDC requested by Renal. Post-Procedure Diagnosis Post-Procedure Diagnosis Same Procedure Performed Procedure Performed Removal rt IJ temp HDC Insert rt IJ tunneled HDC---new venous access Type of Anesthesia Type of Anesthesia Local only Estimated Blood Loss EBL: Minimal Specimens Specimans 14F 20cm Schon temp HDC removed and discarded Drain/Tubes Drains/Tubes Rt IJ 15.5F 24cm DuraMax tuneled HDC Condition of Patient Condition of Patient No change. No apparent complication. Disposition Disposition From IR return to ICU. F/u with Renal. OK to use new tunneled HDC. Full report to follow. DEEPA PALENCIA MD Aug 09, 2016 15:42
[2016-08-09] MEDS: MICAFUNGIN 100 MG in IV DEXTROSE 5% 100 ML IV SCH (16:27)
[2016-08-09] MEDS: ATORVASTATIN CALCIUM 40 MG TABLET. PO SCH (21:44)
[2016-08-09] MEDS: LINEZOLID 600 MG TABLET PEG SCH (21:49)
[2016-08-10] VITALS (24 sets, daily range): BP systolic 101–140; BP diastolic 57–79
[2016-08-10] MEDS: PIPERACILLIN/TAZOBACTAM 2.25 GM in IV NORMAL SALINE 50ML 50 ML IV SCH ×3 (06:08→23:59)
[2016-08-10 06:37] LABS: BASO % 0 % (0-3); EOS % 0 % (0-3); HEMOGLOBIN 7.8 g/dL (13.0-17.5); LYMPH # 0.5 x10^3/uL (1.0-4.8); LYMPH % 5 % (24-48); MEAN CORPUSCULAR HEMOGLOBIN 32 pg (25-35); MEAN CORPUSCULAR HGB CONC 34 g/dL (31-37); MEAN CORPUSCULAR VOLUME 96 fL (79-100); MONO % 5 % (0-9); NEUT % 90 % (31-73); PLATELET COUNT 140 x10^3/uL (140-400); RED BLOOD COUNT 2.41 x10^6/uL (4.30-5.70); RED CELL DISTRIBUTION WIDTH 19.1 % (11.5-14.5); WHITE BLOOD COUNT 8.7 x10^3/uL (4.0-11.0)
--- NOTE | 2016-08-10 06:44 | RAD ---
Removal of right IJ temporary hemodialysis catheter Ultrasound and fluoro guided placement of right IJ tunneled hemodialysis catheter Indication: 56-year-old male with acute kidney injury/ATN. Needs ongoing hemodialysis. Conversion from temporary to tunneled dialysis catheter requested by renal. Fluoro time: 0.7 minutes Kerma-Area Product: 2 Gycm2 Anesthesia: Local only Antibiotic: The patient was receiving scheduled IV antibiotic at the time of this procedure. No additional prophylactic antibiotic was considered indicated. Sterility: All elements of maximal sterile barrier technique, including the use of a cap, mask, sterile gown, sterile gloves, large sterile sheet, appropriate hand hygiene, and 2% chlorhexidine for cutaneous antisepsis (or acceptable alternative antiseptic per current guidelines) were utilized. Procedure: Informed consent was obtained from the patient's . He was placed supine on the angiography table. Preliminary ultrasound examination of right neck revealed continued wide patency of right internal jugular vein, which was documented with a hard copy ultrasound image. The indwelling right IJ 14 [place] 20 cm Schon temporary hemodialysis catheter was then easily removed utilizing gentle traction. Hemostasis was achieved with manual pressure over right internal jugular vein. Right neck and upper chest were then prepped and draped in the usual sterile fashion, utilizing all elements of maximal sterile barrier technique, as described above. Using aseptic technique and local anesthesia, a small skin incision was made lateral to right internal jugular vein, just above clavicle. Using aseptic technique, local anesthesia, and direct ultrasound guidance, a micropuncture needle was successfully introduced into right internal jugular vein. The micropuncture needle was then exchanged over a microguidewire for a micropuncture sheath, through which an Amplatz wire was advanced into IVC, under fluoroscopic control. A second small skin incision was then made along upper anterior aspect of right chest. A subcutaneous tunnel was then fashioned between the right chest and supraclavicular incisions. A 15.5 F 24 cm Dura Max dialysis catheter was pulled through the subcutaneous tunnel from inferior to superior, utilizing the tunneling device provided. The right IJ venostomy tract was then sequentially dilated and the 15.5 [place] dialysis catheter was easily advanced centrally through a 16 [place] peel-away sheath, and was positioned with its tip at the level of upper right atrium utilizing fluoroscopic guidance. This catheter was demonstrated to flush and aspirate normally, was packed, and was secured at the right chest exit site utilizing 2-0 Prolene and sterile dressing. The small supraclavicular incision was closed with 4-0 Vicryl, Steri-Strips, and sterile dressing. Patient tolerated the procedure well without apparent complication. Satisfactory position of the dialysis catheter was confirmed with a single fluoroscopic spot image. Impression: Successful, uneventful ultrasound and fluoro guided placement of right IJ 15.5 F 24 cm Dura Max tunneled hemodialysis catheter, following removal of right IJ 14 [place] 20 cm Schon temporary hemodialysis catheter, as described.
[2016-08-10 06:52] LABS: ALBUMIN 2.1 g/dL (3.4-5.0); CALCIUM 8.2 mg/dL (8.5-10.1); CREATININE 4.8 mg/dL (0.7-1.3); GFR 12.6; PHOSPHORUS 8.9 mg/dL (2.6-4.7); POTASSIUM 4.6 mmol/L (3.5-5.1)
[2016-08-10 07:46] LABS: HCO3 ABG 22 mmol/L (21-28); PCO2 ABG 34 mmHg (35-46); PH ABG 7.43 (7.35-7.45); PO2 ABG 92 mmHg (75-108); SAT O2 ABG 96 % (92-99)
[2016-08-10] MEDS: INSULIN ASPART 300 UNITS/3 ML INSULN.PEN SQ SCH ×3 (08:00→19:09)
[2016-08-10] MEDS: ASPIRIN 325 MG TABLET PO SCH ×2 (08:00→09:46)
[2016-08-10] MEDS: LACTOBACILLUS ACIDOPH & BULGAR 1 TABLET. PO SCH ×3 (08:00→18:01)
--- NOTE | 2016-08-10 08:13 | PDOC ---
Infectious Disease Note Subjective Subjective No acute events. Was out of bed yesterday. Now on HD ROS ROS Awakened but back to sleep Vital Sign Vital Signs Vital Signs Date Time Temp Pulse Resp B/P Pulse Ox O2 Delivery O2 Flow Rate FiO2 08/10/16 07:00 74 24 129/74 100 Ventilator 08/10/16 04:00 97.6 97.6 08/09/16 18:54 10.0 Physical Exam PHYSICAL EXAM GENERAL: NAD, appears comfortable. Awakened easily but back to sleep HEENT: PERRL, Icteric. Oral mucosa dry NECK: Trach/vent. LUNGS: Clear anteriorly HEART: S1S2 ABD: Mildly distended, BS present, soft, NT. PEG intact/ Rectal tube : Tesfaye EXT: Generalized edema 1+. 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 Sternal and left leg incision well-approximate. no redness RUE PICC clean RIJ temp HD cath 08/03). clean Labs Lab Laboratory Tests Test 08/09/16 08:30 08/09/16 14:07 08/09/16 16:36 08/10/16 00:39 Prothrombin Time 16.6SEC (11.7-14.0) Prothromb Time International Ratio 1.4 (0.8-1.1) Glucose (Fingerstick) 125mg/dL (70-99) 122mg/dL (70-99) 146mg/dL (70-99) Test 08/10/16 06:00 08/10/16 06:06 White Blood Count 8.7x10^3/uL (4.0-11.0) Red Blood Count 2.41x10^6/uL (4.30-5.70) Hemoglobin 7.8g/dL (13.0-17.5) Hematocrit 23.0% (39.0-53.0) Mean Corpuscular Volume 96fL (79-100) Mean Corpuscular Hemoglobin 32pg (25-35) Mean Corpuscular Hemoglobin Concent 34g/dL (31-37) Red Cell Distribution Width 19.1% (11.5-14.5) Platelet Count 140x10^3/uL (140-400) Neutrophils (%) (Auto) 90% (31-73) Lymphocytes (%) (Auto) 5% (24-48) Monocytes (%) (Auto) 5% (0-9) Eosinophils (%) (Auto) 0% (0-3) Basophils (%) (Auto) 0% (0-3) Neutrophils # (Auto) 7.8x10^3uL (1.8-7.7) Lymphocytes # (Auto) 0.5x10^3/uL (1.0-4.8) Monocytes # (Auto) 0.4x10^3/uL (0.0-1.1) Eosinophils # (Auto) 0.0x10^3/uL (0.0-0.7) Basophils # (Auto) 0.0x10^3/uL (0.0-0.2) Sodium Level 136mmol/L (136-145) Potassium Level 4.6mmol/L (3.5-5.1) Chloride Level 95mmol/L (98-107) Carbon Dioxide Level 22mmol/L (21-32) Anion Gap 19 (6-14) Blood Urea Nitrogen 127mg/dL (8-26) Creatinine 4.8mg/dL (0.7-1.3) Estimated GFR (Cockcroft-Gault) 12.6 Glucose Level 153mg/dL (70-99) Calcium Level 8.2mg/dL (8.5-10.1) Phosphorus Level 8.9mg/dL (2.6-4.7) Albumin 2.1g/dL (3.4-5.0) Glucose (Fingerstick) 134mg/dL (70-99) Micro 08/03 sputum Enterobacter cloacae complex Moderate growth SPUTUM CULT RES 2 Final Staphylococcus aureus Moderate growth Methicillin resistant (MRSA) Based on resistance to oxacillin this isolate would be resistant to all currently available beta-lactam antimicrobial agents, with the exception of the newer cephalosporins with anti-MRSA activity, such as Ceftaroline ANTIMICROBIAL SUSCEPTIBILITY Final Comment S = Susceptible; I = Intermediate; R = Resistant P = Positive; N = Negative MICS are expressed in micrograms per mL Antibiotic RSLT#1 RSLT#2 RSLT#3 RSLT#4 Amoxicillin/Clavulanic Acid R Cefazolin R Cefepime S Ceftriaxone S Cefuroxime R Ciprofloxacin S R CONTINUED ON NEXT PAGE RUN DATE: 08/05/16 PAGE 2 RUN TIME: 1431 [facility] [address] [facility] [place] [address] Neal Cole M.D., Cardiac Specialist SPEC: [id number] PATIENT: CHARLY NAJERA [id number] ( Continued) Procedure Result Sputum 08/03 ANTIMICROBIAL SUSCEPTIBILITY Final (continued) Clindamycin R Ertapenem S Erythromycin R Gentamicin S S Imipenem S Levofloxacin S R Linezolid S Oxacillin R Penicillin R Piperacillin S Rifampin S Tetracycline S S Tobramycin S Trimethoprim/Sulfa S S Vancomycin S Objective Assessment 1. ? sepsis on Vanc/Zosyn/Micafungin 08/02 - improved. MRSA/Enterobacter sputum 2. Fever -? 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 Perihepatic fluid on CT abd/pelvis 4. JAKE - s/p HD. S/p Perm cath 08/09 5. S/p CABG x 3 ,S/p left ventricular assist device 07/25 6. S/p Chest wound closure 07/27 7. 07/28 - S/p Left external iliac artery subtotal occlusion, s/p successful angioplasty with a 7 x 80 mm balloon. LSFA stenosis, s/p successful angioplasty with a 4.0 x 20 mm balloon Successful removal of a Impella CP percutaneous left ventricular assist device. Primary repair of common femoral artery 8. Small extra-axial fluid collection posteriorly near the right hemispheric vertex consistent with a small area of bleeding CT head 08/01 - stable on recent CT 9. Sinusitis CT 08/01 10. Resp failure -on vent 11. Afib 12. Cardiogenic shock 13. Severe three-vessel coronary artery disease 14. ST elevation myocardial infarction - intra-op 15. Severe ischemic cardiomyopathy 16. Thrombocytopenia - better Plan Plan of Care Cont Zyvox (08/05), Zosyn until the end of the week PT/OT Transfer to LTAC - awaiting insurance approval CY MUKHERJEE MD Aug 10, 2016 08:13
--- NOTE | 2016-08-10 08:22 | PDOC ---
Dialysis Progress Note Dialysis Note Dialysis Note Seen on Hemodialysis, tolerating treatment Okay so far Vitals on Hemodialysis: 114/63 83 on Vent via trache General Appearance: Awake: on the Vent via trache - follows commands Neck: No JVD or JVP Chest: CTA Col[place], few coarse rales Heart: S1 S2 Abdomen - Soft NTND Extremities - + Edema ARF/ ATN : Dialysis as below F 180 NR 3.5 Hrs 3 K 2.5 Ca 140 Na 35 HC03 Qb 350 + Qd 500+ Heparin 0 Units Uf 3-4 Kgs or to dry weight as tolerated May give 25-50 gms of 25% Albumin if needed to maintain Hemodynamic stability Treatment plan reviewed and discussed with database development project manager will reval Vitals Vital Signs Vital Signs Date Time Temp Pulse Resp B/P Pulse Ox O2 Delivery O2 Flow Rate FiO2 08/10/16 07:00 74 24 129/74 100 Ventilator 08/10/16 04:00 97.6 97.6 08/09/16 18:54 10.0 Labs Last Labs Laboratory Tests Test 08/08/16 09:00 08/08/16 10:52 08/08/16 17:15 08/09/16 00:13 O2 Saturation 98% (92-99) Arterial Blood pH 7.50 (7.35-7.45) Arterial Blood pCO2 at Patient Temp 30mmHg (35-46) Arterial Blood pO2 at Patient Temp 115mmHg (75-108) Arterial Blood HCO3 23mmol/L (21-28) Arterial Blood Base Excess 0mmol/L (-3-3) FiO2 40 Glucose (Fingerstick) 130mg/dL (70-99) 134mg/dL (70-99) 141mg/dL (70-99) Test 08/09/16 05:00 08/09/16 06:01 08/09/16 06:09 08/09/16 08:30 White Blood Count 6.0x10^3/uL (4.0-11.0) Red Blood Count 2.37x10^6/uL (4.30-5.70) Hemoglobin 7.6g/dL (13.0-17.5) Hematocrit 22.6% (39.0-53.0) Mean Corpuscular Volume 96fL (79-100) Mean Corpuscular Hemoglobin 32pg (25-35) Mean Corpuscular Hemoglobin Concent 34g/dL (31-37) Red Cell Distribution Width 17.6% (11.5-14.5) Platelet Count 123x10^3/uL (140-400) Neutrophils (%) (Auto) 87% (31-73) Lymphocytes (%) (Auto) 6% (24-48) Monocytes (%) (Auto) 6% (0-9) Eosinophils (%) (Auto) 1% (0-3) Basophils (%) (Auto) 0% (0-3) Neutrophils # (Auto) 5.2x10^3uL (1.8-7.7) Lymphocytes # (Auto) 0.4x10^3/uL (1.0-4.8) Monocytes # (Auto) 0.4x10^3/uL (0.0-1.1) Eosinophils # (Auto) 0.0x10^3/uL (0.0-0.7) Basophils # (Auto) 0.0x10^3/uL (0.0-0.2) Glucose (Fingerstick) 118mg/dL (70-99) Sodium Level 138mmol/L (136-145) Potassium Level 4.4mmol/L (3.5-5.1) Chloride Level 98mmol/L (98-107) Carbon Dioxide Level 26mmol/L (21-32) Anion Gap 14 (6-14) Blood Urea Nitrogen 93mg/dL (8-26) Creatinine 3.9mg/dL (0.7-1.3) Estimated GFR (Cockcroft-Gault) 16.0 BUN/Creatinine Ratio 24 (6-20) Glucose Level 126mg/dL (70-99) Calcium Level 8.0mg/dL (8.5-10.1) Phosphorus Level 6.6mg/dL (2.6-4.7) Total Bilirubin 2.3mg/dL (0.2-1.0) Aspartate Amino Transf (AST/SGOT) 176U/L (15-37) Alanine Aminotransferase (ALT/SGPT) 157U/L (16-63) Alkaline Phosphatase 104U/L (46-116) Total Protein 5.4g/dL (6.4-8.2) Albumin 2.2g/dL (3.4-5.0) Albumin/Globulin Ratio 0.7 (1.0-1.7) Prothrombin Time 16.6SEC (11.7-14.0) Prothromb Time International Ratio 1.4 (0.8-1.1) Test 08/09/16 14:07 08/09/16 16:36 08/10/16 00:39 08/10/16 06:00 Glucose (Fingerstick) 125mg/dL (70-99) 122mg/dL (70-99) 146mg/dL (70-99) White Blood Count 8.7x10^3/uL (4.0-11.0) Red Blood Count 2.41x10^6/uL (4.30-5.70) Hemoglobin 7.8g/dL (13.0-17.5) Hematocrit 23.0% (39.0-53.0) Mean Corpuscular Volume 96fL (79-100) Mean Corpuscular Hemoglobin 32pg (25-35) Mean Corpuscular Hemoglobin Concent 34g/dL (31-37) Red Cell Distribution Width 19.1% (11.5-14.5) Platelet Count 140x10^3/uL (140-400) Neutrophils (%) (Auto) 90% (31-73) Lymphocytes (%) (Auto) 5% (24-48) Monocytes (%) (Auto) 5% (0-9) Eosinophils (%) (Auto) 0% (0-3) Basophils (%) (Auto) 0% (0-3) Neutrophils # (Auto) 7.8x10^3uL (1.8-7.7) Lymphocytes # (Auto) 0.5x10^3/uL (1.0-4.8) Monocytes # (Auto) 0.4x10^3/uL (0.0-1.1) Eosinophils # (Auto) 0.0x10^3/uL (0.0-0.7) Basophils # (Auto) 0.0x10^3/uL (0.0-0.2) Sodium Level 136mmol/L (136-145) Potassium Level 4.6mmol/L (3.5-5.1) Chloride Level 95mmol/L (98-107) Carbon Dioxide Level 22mmol/L (21-32) Anion Gap 19 (6-14) Blood Urea Nitrogen 127mg/dL (8-26) Creatinine 4.8mg/dL (0.7-1.3) Estimated GFR (Cockcroft-Gault) 12.6 Glucose Level 153mg/dL (70-99) Calcium Level 8.2mg/dL (8.5-10.1) Phosphorus Level 8.9mg/dL (2.6-4.7) Albumin 2.1g/dL (3.4-5.0) Test 08/10/16 06:06 Glucose (Fingerstick) 134mg/dL (70-99) Laboratory Tests Test 08/09/16 08:30 08/09/16 14:07 08/09/16 16:36 08/10/16 00:39 Prothrombin Time 16.6SEC (11.7-14.0) Prothromb Time International Ratio 1.4 (0.8-1.1) Glucose (Fingerstick) 125mg/dL (70-99) 122mg/dL (70-99) 146mg/dL (70-99) Test 08/10/16 06:00 08/10/16 06:06 White Blood Count 8.7x10^3/uL (4.0-11.0) Red Blood Count 2.41x10^6/uL (4.30-5.70) Hemoglobin 7.8g/dL (13.0-17.5) Hematocrit 23.0% (39.0-53.0) Mean Corpuscular Volume 96fL (79-100) Mean Corpuscular Hemoglobin 32pg (25-35) Mean Corpuscular Hemoglobin Concent 34g/dL (31-37) Red Cell Distribution Width 19.1% (11.5-14.5) Platelet Count 140x10^3/uL (140-400) Neutrophils (%) (Auto) 90% (31-73) Lymphocytes (%) (Auto) 5% (24-48) Monocytes (%) (Auto) 5% (0-9) Eosinophils (%) (Auto) 0% (0-3) Basophils (%) (Auto) 0% (0-3) Neutrophils # (Auto) 7.8x10^3uL (1.8-7.7) Lymphocytes # (Auto) 0.5x10^3/uL (1.0-4.8) Monocytes # (Auto) 0.4x10^3/uL (0.0-1.1) Eosinophils # (Auto) 0.0x10^3/uL (0.0-0.7) Basophils # (Auto) 0.0x10^3/uL (0.0-0.2) Sodium Level 136mmol/L (136-145) Potassium Level 4.6mmol/L (3.5-5.1) Chloride Level 95mmol/L (98-107) Carbon Dioxide Level 22mmol/L (21-32) Anion Gap 19 (6-14) Blood Urea Nitrogen 127mg/dL (8-26) Creatinine 4.8mg/dL (0.7-1.3) Estimated GFR (Cockcroft-Gault) 12.6 Glucose Level 153mg/dL (70-99) Calcium Level 8.2mg/dL (8.5-10.1) Phosphorus Level 8.9mg/dL (2.6-4.7) Albumin 2.1g/dL (3.4-5.0) Glucose (Fingerstick) 134mg/dL (70-99) Assessment Assessment Problems Medical Problems: (1) CAD (coronary artery disease), [place] coronary artery Status: Acute (2) Chest pain Status: Acute (3) STEMI (ST elevation myocardial infarction) Status: Acute Problems: Plan Plan of Care Problems Medical Problems: (1) CAD (coronary artery disease), [place] coronary artery Status: Acute (2) Chest pain Status: Acute (3) STEMI (ST elevation myocardial infarction) Status: Acute ELIZABETH LOPEZ MD Aug 10, 2016 08:22
[2016-08-10 08:26] LABS: FIO2 ABG 40
[2016-08-10] MEDS: SEVELAMER CARBONATE 2.4 GM PACKET. FT SCH (08:29)
[2016-08-10] MEDS: METOPROLOL TART IMMED RELEASE 25 MG TABLET. NG SCH ×2 (08:29→21:30)
[2016-08-10] MEDS: AMIODARONE HCL 200 MG TABLET. PO SCH (08:34)
[2016-08-10] MEDS: IPRATROPIUM BROMIDE 0.5 MG/2.5 ML NEBU. NEB SCH ×4 (08:34→20:24)
[2016-08-10] MEDS: MINERAL OIL/PETROLATUM,WHITE OPHTH OINT 3.5GM TUBE. OU SCH ×2 (08:34→21:30)
[2016-08-10] MEDS: CALCIUM CARBONATE 500 MG TAB.CHEW PO SCH ×3 (08:35→21:28)
[2016-08-10] MEDS: LINEZOLID 600 MG TABLET PEG SCH ×2 (09:47→21:29)
[2016-08-10] MEDS: HEPARIN PF for SUB-Q USE 5,000 UNIT/0.5 ML VIAL. SQ SCH ×2 (09:48→21:27)
[2016-08-10] MEDS: PANTOPRAZOLE IV PUSH 40 MG VIAL. IVP SCH (09:48)
[2016-08-10] MEDS: SEVELAMER CARBONATE 2.4 GM PACKET. PO SCH (10:30)
--- NOTE | 2016-08-10 10:52 | PDOC ---
Objective: Objective: No GI concerns/change per RN. Vital Signs: Vital Signs Date Time Temp Pulse Resp B/P Pulse Ox O2 Delivery O2 Flow Rate FiO2 08/10/16 10:19 99 Ventilator 08/10/16 10:00 74 16 118/69 08/10/16 08:00 97.9 97.9 08/09/16 18:54 10.0 Labs: Laboratory Tests Test 08/09/16 14:07 08/09/16 16:36 08/10/16 00:39 08/10/16 06:00 Glucose (Fingerstick) 125mg/dL 122mg/dL 146mg/dL White Blood Count 8.7x10^3/uL Red Blood Count 2.41x10^6/uL Hemoglobin 7.8g/dL Hematocrit 23.0% Mean Corpuscular Volume 96fL Mean Corpuscular Hemoglobin 32pg Mean Corpuscular Hemoglobin Concent 34g/dL Red Cell Distribution Width 19.1% Platelet Count 140x10^3/uL Neutrophils (%) (Auto) 90% Lymphocytes (%) (Auto) 5% Monocytes (%) (Auto) 5% Eosinophils (%) (Auto) 0% Basophils (%) (Auto) 0% Neutrophils # (Auto) 7.8x10^3uL Lymphocytes # (Auto) 0.5x10^3/uL Monocytes # (Auto) 0.4x10^3/uL Eosinophils # (Auto) 0.0x10^3/uL Basophils # (Auto) 0.0x10^3/uL Sodium Level 136mmol/L Potassium Level 4.6mmol/L Chloride Level 95mmol/L Carbon Dioxide Level 22mmol/L Anion Gap 19 Blood Urea Nitrogen 127mg/dL Creatinine 4.8mg/dL Estimated GFR (Cockcroft-Gault) 12.6 Glucose Level 153mg/dL Calcium Level 8.2mg/dL Phosphorus Level 8.9mg/dL Albumin 2.1g/dL Test 08/10/16 06:06 08/10/16 07:44 Glucose (Fingerstick) 134mg/dL O2 Saturation 96% Arterial Blood pH 7.43 Arterial Blood pCO2 at Patient Temp 34mmHg Arterial Blood pO2 at Patient Temp 92mmHg Arterial Blood HCO3 22mmol/L Arterial Blood Base Excess -2mmol/L FiO2 40 PE: GEN: NAD, dialyzing LUNGS: trach/vent HEART: RRR ABD: NABS, S/ND/NT, PEG in place, rectal tube - bag w/ liquid brown stool NEURO/PSYCH: awake A/P: Resp failure/dysphagia -s/p trach/PEG 08/05 ---> PEG working well -on IV PPI Frequent stools -rectal tube in place -C Diff neg -- Continue same per GI. RUDOLPH MARTINEZ Aug 10, 2016 10:52
--- NOTE | 2016-08-10 13:39 | PDOC ---
PULMONARY PROGRESS NOTES Subjective s/p trach 08/05 Vitals Vital Signs Date Time Temp Pulse Resp B/P Pulse Ox O2 Delivery O2 Flow Rate FiO2 08/10/16 12:34 100 Tracheal Collar 10.0 08/10/16 11:00 71 15 107/64 08/10/16 08:00 97.9 97.9 General: Alert HEENT: Other (nc at perrl orally intubated nose clease. neck, no lap thyromegaly) Lungs: Clear, Other (Rhonchi noted diffusely) Cardiovascular: S1, S2, Other Abdomen: Soft Extremities: Other (edema) Skin: Warm Labs Laboratory Tests Test 08/08/16 17:15 08/09/16 00:13 08/09/16 05:00 08/09/16 06:01 Glucose (Fingerstick) 134mg/dL (70-99) 141mg/dL (70-99) 118mg/dL (70-99) White Blood Count 6.0x10^3/uL (4.0-11.0) Red Blood Count 2.37x10^6/uL (4.30-5.70) Hemoglobin 7.6g/dL (13.0-17.5) Hematocrit 22.6% (39.0-53.0) Mean Corpuscular Volume 96fL (79-100) Mean Corpuscular Hemoglobin 32pg (25-35) Mean Corpuscular Hemoglobin Concent 34g/dL (31-37) Red Cell Distribution Width 17.6% (11.5-14.5) Platelet Count 123x10^3/uL (140-400) Neutrophils (%) (Auto) 87% (31-73) Lymphocytes (%) (Auto) 6% (24-48) Monocytes (%) (Auto) 6% (0-9) Eosinophils (%) (Auto) 1% (0-3) Basophils (%) (Auto) 0% (0-3) Neutrophils # (Auto) 5.2x10^3uL (1.8-7.7) Lymphocytes # (Auto) 0.4x10^3/uL (1.0-4.8) Monocytes # (Auto) 0.4x10^3/uL (0.0-1.1) Eosinophils # (Auto) 0.0x10^3/uL (0.0-0.7) Basophils # (Auto) 0.0x10^3/uL (0.0-0.2) Test 08/09/16 06:09 08/09/16 08:30 08/09/16 14:07 08/09/16 16:36 Sodium Level 138mmol/L (136-145) Potassium Level 4.4mmol/L (3.5-5.1) Chloride Level 98mmol/L (98-107) Carbon Dioxide Level 26mmol/L (21-32) Anion Gap 14 (6-14) Blood Urea Nitrogen 93mg/dL (8-26) Creatinine 3.9mg/dL (0.7-1.3) Estimated GFR (Cockcroft-Gault) 16.0 BUN/Creatinine Ratio 24 (6-20) Glucose Level 126mg/dL (70-99) Calcium Level 8.0mg/dL (8.5-10.1) Phosphorus Level 6.6mg/dL (2.6-4.7) Total Bilirubin 2.3mg/dL (0.2-1.0) Aspartate Amino Transf (AST/SGOT) 176U/L (15-37) Alanine Aminotransferase (ALT/SGPT) 157U/L (16-63) Alkaline Phosphatase 104U/L (46-116) Total Protein 5.4g/dL (6.4-8.2) Albumin 2.2g/dL (3.4-5.0) Albumin/Globulin Ratio 0.7 (1.0-1.7) Prothrombin Time 16.6SEC (11.7-14.0) Prothromb Time International Ratio 1.4 (0.8-1.1) Glucose (Fingerstick) 125mg/dL (70-99) 122mg/dL (70-99) Test 08/10/16 00:39 08/10/16 06:00 08/10/16 06:06 08/10/16 07:44 Glucose (Fingerstick) 146mg/dL (70-99) 134mg/dL (70-99) White Blood Count 8.7x10^3/uL (4.0-11.0) Red Blood Count 2.41x10^6/uL (4.30-5.70) Hemoglobin 7.8g/dL (13.0-17.5) Hematocrit 23.0% (39.0-53.0) Mean Corpuscular Volume 96fL (79-100) Mean Corpuscular Hemoglobin 32pg (25-35) Mean Corpuscular Hemoglobin Concent 34g/dL (31-37) Red Cell Distribution Width 19.1% (11.5-14.5) Platelet Count 140x10^3/uL (140-400) Neutrophils (%) (Auto) 90% (31-73) Lymphocytes (%) (Auto) 5% (24-48) Monocytes (%) (Auto) 5% (0-9) Eosinophils (%) (Auto) 0% (0-3) Basophils (%) (Auto) 0% (0-3) Neutrophils # (Auto) 7.8x10^3uL (1.8-7.7) Lymphocytes # (Auto) 0.5x10^3/uL (1.0-4.8) Monocytes # (Auto) 0.4x10^3/uL (0.0-1.1) Eosinophils # (Auto) 0.0x10^3/uL (0.0-0.7) Basophils # (Auto) 0.0x10^3/uL (0.0-0.2) Sodium Level 136mmol/L (136-145) Potassium Level 4.6mmol/L (3.5-5.1) Chloride Level 95mmol/L (98-107) Carbon Dioxide Level 22mmol/L (21-32) Anion Gap 19 (6-14) Blood Urea Nitrogen 127mg/dL (8-26) Creatinine 4.8mg/dL (0.7-1.3) Estimated GFR (Cockcroft-Gault) 12.6 Glucose Level 153mg/dL (70-99) Calcium Level 8.2mg/dL (8.5-10.1) Phosphorus Level 8.9mg/dL (2.6-4.7) Albumin 2.1g/dL (3.4-5.0) O2 Saturation 96% (92-99) Arterial Blood pH 7.43 (7.35-7.45) Arterial Blood pCO2 at Patient Temp 34mmHg (35-46) Arterial Blood pO2 at Patient Temp 92mmHg (75-108) Arterial Blood HCO3 22mmol/L (21-28) Arterial Blood Base Excess -2mmol/L (-3-3) FiO2 40 Laboratory Tests Test 08/09/16 14:07 08/09/16 16:36 08/10/16 00:39 08/10/16 06:00 Glucose (Fingerstick) 125mg/dL (70-99) 122mg/dL (70-99) 146mg/dL (70-99) White Blood Count 8.7x10^3/uL (4.0-11.0) Red Blood Count 2.41x10^6/uL (4.30-5.70) Hemoglobin 7.8g/dL (13.0-17.5) Hematocrit 23.0% (39.0-53.0) Mean Corpuscular Volume 96fL (79-100) Mean Corpuscular Hemoglobin 32pg (25-35) Mean Corpuscular Hemoglobin Concent 34g/dL (31-37) Red Cell Distribution Width 19.1% (11.5-14.5) Platelet Count 140x10^3/uL (140-400) Neutrophils (%) (Auto) 90% (31-73) Lymphocytes (%) (Auto) 5% (24-48) Monocytes (%) (Auto) 5% (0-9) Eosinophils (%) (Auto) 0% (0-3) Basophils (%) (Auto) 0% (0-3) Neutrophils # (Auto) 7.8x10^3uL (1.8-7.7) Lymphocytes # (Auto) 0.5x10^3/uL (1.0-4.8) Monocytes # (Auto) 0.4x10^3/uL (0.0-1.1) Eosinophils # (Auto) 0.0x10^3/uL (0.0-0.7) Basophils # (Auto) 0.0x10^3/uL (0.0-0.2) Sodium Level 136mmol/L (136-145) Potassium Level 4.6mmol/L (3.5-5.1) Chloride Level 95mmol/L (98-107) Carbon Dioxide Level 22mmol/L (21-32) Anion Gap 19 (6-14) Blood Urea Nitrogen 127mg/dL (8-26) Creatinine 4.8mg/dL (0.7-1.3) Estimated GFR (Cockcroft-Gault) 12.6 Glucose Level 153mg/dL (70-99) Calcium Level 8.2mg/dL (8.5-10.1) Phosphorus Level 8.9mg/dL (2.6-4.7) Albumin 2.1g/dL (3.4-5.0) Test 08/10/16 06:06 08/10/16 07:44 Glucose (Fingerstick) 134mg/dL (70-99) O2 Saturation 96% (92-99) Arterial Blood pH 7.43 (7.35-7.45) Arterial Blood pCO2 at Patient Temp 34mmHg (35-46) Arterial Blood pO2 at Patient Temp 92mmHg (75-108) Arterial Blood HCO3 22mmol/L (21-28) Arterial Blood Base Excess -2mmol/L (-3-3) FiO2 40 Medications Active Scripts Medications Dose Route/Sig Days Date Category Amlodipine Besylate 5 Mg Tablet 5 Mg PO DAILY 07/20/16 Reported Pradaxa (Dabigatran Etexilate Mesylate) 150 Mg Capsule 1 Cap PO BID 07/20/16 Reported Metoprolol Succinate ( Xl ) (Metoprolol Succinate) 100 Mg Tab.er.24h 1 Tab PO DAILY 07/20/16 Reported Impression . 1. Expected respiratory failure, status post coronary artery bypass grafting. 2. Cardiogenic shock. followed by septic shock, improved 3. Early post-myocardial infarction complicated with ventricular fibrillation , s/p multiple shocks. 4. Status post implantation of Impella from mechanical circulating support. 5. 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 6. Tobacco use in remission. Spirometry revealed an FEV1, which was 3.2 liters preoperatively. 7. Nutrition, currently on tube feeding. 8. History of hypertension. 9. Severe cardiomyopathy ejection fraction 25%. 10. Peripheral artery disease. 11. Atrial fibrillation. 12. Encephalopathy multifactorial (hepatic, metabolic), improved 13. High grade fever, sepsis, ? source, less likely lungs.ct chest reviewed. responding to antibiotics 14. Abnormal LFT due to sepsis, improving 15. renal failure , on HD Plan . 1. s/p trach 08/05, trach shield as tolerated 1. t espinal as tolerated 2. Continue nutritional support with tube feeding. 3. needs pt/ot 4. HD spoke with VANESSA GREY MD Aug 10, 2016 13:39
--- NOTE | 2016-08-10 14:31 | PDOC ---
PROGRESS NOTES Assessment Assessment Metabolic encephalopathy. Respiratory failure. Small right SDH ? Infarct suspicious. S/p CABg CAD VA VT PAD Cardiomyopathy. AFib CHF, EF 25% Cardiogenic shock. DM Hypocalcemia. Anemia. 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 RECOMMENDATIONS/PLAN: He has been on ASA 325 mg daily. Continue cardiac and medical treatment. No brain MRI due to cardiac wires. OT/PT Rehab. Discussed with his at bedside on 08/09 and again with his and sister at bedside on 08/10. MRI was considered to confirm infarct if there was one, but contraindicated due to cardiac wires and would not change treatment and care. SUBJECTIVE: Awake from time to time. OBJECTIVE: Unable to communicate. PAST MEDICAL AND SURGICAL HISTORY: Please see H&P ALLERGY: Reviewed. MEDICATIONS: Refer to [facility] REVIEW OF SYSTEMS: Constitutional: weakness. Head: No recent traumatic brain or head injury. Skin: Edema noted. Ear: No infection Eyes: No vision loss. Nose: No bleeding or purulent discharges. Hearing: No hearing decrease. Neck: No injury. Cardiac: VA, s/p CABG, AFib, HTN Pulmonary: Respiratory failure. GI: No GI Ulcer, GI bleeding Urinary/genital: UTI. Endocrine: Diabetes Mellitus. Skeletomuscular: Generalized weakness. Neurological: see HP. Psychiatric: Denies drug use/abuse. Otherwise, not [id number] review of systems. PHYSICAL EXAMINATION: General appearance in subacute distress. HEENT: Normocephalic and nontraumatic. Eyes, nose, ears, and throat are unremarkable. Hearing decrease. Neck is supple. No lymphadenopathy. No Crepitus. Cardiovascular: S1, S2, irregular rate and rhythm. Pulmonary: On vent. Abdomen: Bowel sounds are positive. Extremities: Edema. NEUROLOGICAL EXAMINATION: Awake. Sitting chair. Not oriented to time, place but knows person. PERRL. EOMI slow. CN: no acute focal findings. Muscle tone: Decreased. Muscle strength: 3 distal UE, 0-1 proximal UE, 2 distal LE. DTR: 1 UE, 0-1 at knee. Plantar reflex: Neutral response bilaterally Gait: Unable to walk. Sensory exam: Minimal response to stimuli but was due to motor weakness. Not able to access cerebellar signs. F-T-N test not performed due to not able to perform the test. Objective Objective Vital Signs Date Time Temp Pulse Resp B/P Pulse Ox O2 Delivery O2 Flow Rate FiO2 08/10/16 14:00 87 20 115/72 100 Tracheal Collar 08/10/16 12:34 10.0 08/10/16 12:00 98.0 98.0 Intake and Output 08/10/16 07:00 Intake Total 1857 ml Output Total 560 ml Balance 1297 ml IV Total 550 ml Tube Feeding 767 ml Other 540 ml Output Urine Total 385 ml Stool Total 175 ml Gastric Drainage Total 0 ml Vitals Signs Vitals VS - Last 72 Hours, by Label Date Time Temp Pulse Resp B/P Pulse Ox O2 Delivery O2 Flow Rate FiO2 08/10/16 14:00 87 20 115/72 100 Tracheal Collar 08/10/16 13:00 84 24 119/65 100 Tracheal Collar 08/10/16 12:34 100 Tracheal Collar 10.0 08/10/16 12:00 98.0 80 20 114/68 98 Ventilator 98.0 08/10/16 12:00 Trach Collar 08/10/16 11:00 71 15 107/64 100 Ventilator 08/10/16 10:19 99 Ventilator 08/10/16 10:00 74 16 118/69 100 Ventilator 08/10/16 09:00 73 15 110/63 100 Ventilator 08/10/16 08:35 97 Ventilator 08/10/16 08:00 97.9 76 19 111/63 99 Ventilator 97.9 08/10/16 08:00 Trach Collar 08/10/16 07:00 74 24 129/74 100 Ventilator 08/10/16 06:00 82 22 115/69 100 Ventilator 08/10/16 05:12 100 Ventilator 08/10/16 05:00 76 18 105/64 99 Ventilator 08/10/16 04:00 97.6 85 27 116/74 100 Ventilator 97.6 08/10/16 04:00 Mechanical Ventilator 08/10/16 03:08 100 Ventilator 08/10/16 03:00 80 18 101/63 100 Ventilator 08/10/16 02:00 69 19 110/66 100 Ventilator 08/10/16 01:12 100 Ventilator 08/10/16 01:00 77 21 102/63 100 Ventilator 08/09/16 23:59 97.7 77 24 103/59 100 Ventilator 97.7 08/09/16 23:59 Mechanical Ventilator 08/09/16 23:00 78 22 91/56 100 Ventilator 08/09/16 22:55 100 Ventilator 08/09/16 22:00 84 21 92/64 100 Ventilator 08/09/16 21:42 87 125/77 08/09/16 21:00 84 19 125/77 100 Tracheal Collar 08/09/16 20:00 97.6 80 20 119/64 100 Tracheal Collar 97.6 08/09/16 20:00 Trach Collar 08/09/16 19:00 80 26 126/65 100 Tracheal Collar 08/09/16 18:54 100 Tracheal Collar 10.0 08/09/16 18:03 77 22 128/66 100 Tracheal Collar 08/09/16 17:00 80 27 107/65 100 Tracheal Collar 08/09/16 17:00 Tracheal Collar 10.0 08/09/16 16:15 98.1 75 30 118/72 100 Tracheal Collar 98.1 08/09/16 16:15 Trach Collar 08/09/16 16:00 100 Ventilator 08/09/16 15:00 85 30 112/67 97 Tracheal Collar 08/09/16 14:00 85 30 111/67 97 Tracheal Collar 08/09/16 13:00 83 28 110/68 100 Tracheal Collar 08/09/16 12:04 100 Tracheal Collar 10.0 08/09/16 12:00 98.2 83 28 108/68 100 Tracheal Collar 98.2 08/09/16 12:00 Trach Collar 08/09/16 11:00 83 28 111/68 100 Tracheal Collar 08/09/16 10:00 92 20 112/63 100 Tracheal Collar 08/09/16 09:35 Tracheal Collar 10.0 08/09/16 09:00 75 20 95/55 100 Ventilator 08/09/16 08:17 100 Ventilator 08/09/16 08:00 98.1 90 27 110/63 99 Ventilator 98.1 08/09/16 08:00 Trach Collar 08/09/16 07:46 76 100/59 08/09/16 07:45 76 100/59 08/09/16 07:00 76 20 100/59 99 Ventilator Laboratory Laboratory Laboratory Tests Test 08/09/16 16:36 08/10/16 00:39 08/10/16 06:00 08/10/16 06:06 Glucose (Fingerstick) 122mg/dL (70-99) 146mg/dL (70-99) 134mg/dL (70-99) White Blood Count 8.7x10^3/uL (4.0-11.0) Red Blood Count 2.41x10^6/uL (4.30-5.70) Hemoglobin 7.8g/dL (13.0-17.5) Hematocrit 23.0% (39.0-53.0) Mean Corpuscular Volume 96fL (79-100) Mean Corpuscular Hemoglobin 32pg (25-35) Mean Corpuscular Hemoglobin Concent 34g/dL (31-37) Red Cell Distribution Width 19.1% (11.5-14.5) Platelet Count 140x10^3/uL (140-400) Neutrophils (%) (Auto) 90% (31-73) Lymphocytes (%) (Auto) 5% (24-48) Monocytes (%) (Auto) 5% (0-9) Eosinophils (%) (Auto) 0% (0-3) Basophils (%) (Auto) 0% (0-3) Neutrophils # (Auto) 7.8x10^3uL (1.8-7.7) Lymphocytes # (Auto) 0.5x10^3/uL (1.0-4.8) Monocytes # (Auto) 0.4x10^3/uL (0.0-1.1) Eosinophils # (Auto) 0.0x10^3/uL (0.0-0.7) Basophils # (Auto) 0.0x10^3/uL (0.0-0.2) Sodium Level 136mmol/L (136-145) Potassium Level 4.6mmol/L (3.5-5.1) Chloride Level 95mmol/L (98-107) Carbon Dioxide Level 22mmol/L (21-32) Anion Gap 19 (6-14) Blood Urea Nitrogen 127mg/dL (8-26) Creatinine 4.8mg/dL (0.7-1.3) Estimated GFR (Cockcroft-Gault) 12.6 Glucose Level 153mg/dL (70-99) Calcium Level 8.2mg/dL (8.5-10.1) Phosphorus Level 8.9mg/dL (2.6-4.7) Albumin 2.1g/dL (3.4-5.0) Test 08/10/16 07:44 O2 Saturation 96% (92-99) Arterial Blood pH 7.43 (7.35-7.45) Arterial Blood pCO2 at Patient Temp 34mmHg (35-46) Arterial Blood pO2 at Patient Temp 92mmHg (75-108) Arterial Blood HCO3 22mmol/L (21-28) Arterial Blood Base Excess -2mmol/L (-3-3) FiO2 40 Microbiology 08/02/16 Blood Culture - Final, Complete NO GROWTH AFTER 5 DAYS 08/03/16 Sputum Culture - Final, Complete 08/03/16 Sputum Result 1 - Final, Complete 08/03/16 Sputum Result 2 - Final, Complete 08/03/16 Antimicrobic Susceptibility - Final, Complete 08/02/16 Urine Culture - Final, Complete 08/02/16 Urine Culture Result 1 (MILEY) - Final, Complete 08/03/16 Gram Stain - Final, Complete Medication Medications Current Medications Heparin Sodium (Porcine) (Heparin Sodium) 2,600 unit 1X ONCE INT CAT Last administered on 08/09/16 15:44; Start 08/09/16 at 15:30; Stop 08/09/16 at 15:31 ; Status DC Heparin Sodium (Porcine) (Heparin Sodium) 10,000 unit STK-MED ONCE .ROUTE ; Start 08/09/16 at 14:49; Stop 08/09/16 at 14:50; Status DC Heparin Sodium/ Sodium Chloride 500 ml @ As Directed STK-MED ONCE .ROUTE ; Start 08/09/16 at 14:49; Stop 08/09/16 at 14:50; Status DC Heparin Sodium/ Sodium Chloride 1,000 unit 1X ONCE IART Last administered on 15:44; Start 08/09/16 at 15:30; Stop 08/09/16 at 15:31; Status DC Lidocaine/ Epinephrine (Xylocaine 1%-Epi 1:100,000) 20 ml 1X ONCE INJ Last administered on 08/09/16 15:44; Start 08/09/16 at 15:30; Stop 08/09/16 at 15:31 ; Status DC Lidocaine/ Epinephrine 20 ml 20 ml STK-MED ONCE .ROUTE ; Start 08/09/16 at 14:49 ; Stop 08/09/16 at 14:50; Status DC Linezolid (Zyvox) 600 mg BID PEG Last administered on 08/10/16t 09:47; Start at 21:00 Sevelamer Carbonate (Renvela) 7.2 gm DAILY PO ; Start 08/10/16 at 10:30 Comment Review of Relevant I have reviewed the following items leonidas (where applicable) has been applied. ROXI SCHMITT MD Aug 10, 2016 14:31
--- NOTE | 2016-08-10 15:41 | PDOC ---
PROGRESS NOTES Chief Complaint Chief Complaint cc: chest pain -Severe three-vessel coronary artery disease found on cath -S/P CABG x3 -Critical Illness Neuropathy -Resp failure on Vent -Mediastinal Washout -Multiple procedures -A-fib -Hypertension -STEMI -Cardiogenic shock -Ischemic cardiomyopathy -JAKE -SDH -Hemodialysis catheter -Right renal mass History of Present Illness History of Present Illness Mr. Alvarado was lying in bed with a ventilator for his tracheostomy. He was breathing 25 times per minute and his SpO2% was at 100. He was breathing 12L of humidified air and was utilizing a tracheal shield. The patient was awake and aware of his surroundings as he was able to nod to us. The patient was given 1 unit of blood. He had a PEG tube in place. His pupils were reactive. He had a SCD in place. The patient was having minor difficulties with secretions clogging the back of his throat. He had a dressing that was clean and intact. Vitals Vitals Vital Signs Date Time Temp Pulse Resp B/P Pulse Ox O2 Delivery O2 Flow Rate FiO2 08/10/16 15:36 100 Tracheal Collar 10.0 08/10/16 14:00 87 20 115/72 08/10/16 12:00 98.0 98.0 Physical Exam Physical Exam GENERAL: Alert, following commands HEENT: Pupils reactive NECK: Supple LUNGS: Clear HEART: S1S2 CHEST: sternotomy: D/C/I ABD: Soft, NT EXT: edema improved, warm well perfused, pedal pulses palpable [employer]: follows commands, extremities weak SKIN: No rash IV: ok General: Cooperative, No acute distress Heart: Normal S1, Normal S2, Other (Irregular heart rate noted) Lungs: Clear, Other (Rhonchi noted on right side of chest) Abdomen: Soft, No masses Extremities: No clubbing, Normal pulses Skin: No rashes, No breakdown Labs LABS Laboratory Tests Test 08/09/16 16:36 08/10/16 00:39 08/10/16 06:00 08/10/16 06:06 Glucose (Fingerstick) 122mg/dL (70-99) 146mg/dL (70-99) 134mg/dL (70-99) White Blood Count 8.7x10^3/uL (4.0-11.0) Red Blood Count 2.41x10^6/uL (4.30-5.70) Hemoglobin 7.8g/dL (13.0-17.5) Hematocrit 23.0% (39.0-53.0) Mean Corpuscular Volume 96fL (79-100) Mean Corpuscular Hemoglobin 32pg (25-35) Mean Corpuscular Hemoglobin Concent 34g/dL (31-37) Red Cell Distribution Width 19.1% (11.5-14.5) Platelet Count 140x10^3/uL (140-400) Neutrophils (%) (Auto) 90% (31-73) Lymphocytes (%) (Auto) 5% (24-48) Monocytes (%) (Auto) 5% (0-9) Eosinophils (%) (Auto) 0% (0-3) Basophils (%) (Auto) 0% (0-3) Neutrophils # (Auto) 7.8x10^3uL (1.8-7.7) Lymphocytes # (Auto) 0.5x10^3/uL (1.0-4.8) Monocytes # (Auto) 0.4x10^3/uL (0.0-1.1) Eosinophils # (Auto) 0.0x10^3/uL (0.0-0.7) Basophils # (Auto) 0.0x10^3/uL (0.0-0.2) Sodium Level 136mmol/L (136-145) Potassium Level 4.6mmol/L (3.5-5.1) Chloride Level 95mmol/L (98-107) Carbon Dioxide Level 22mmol/L (21-32) Anion Gap 19 (6-14) Blood Urea Nitrogen 127mg/dL (8-26) Creatinine 4.8mg/dL (0.7-1.3) Estimated GFR (Cockcroft-Gault) 12.6 Glucose Level 153mg/dL (70-99) Calcium Level 8.2mg/dL (8.5-10.1) Phosphorus Level 8.9mg/dL (2.6-4.7) Albumin 2.1g/dL (3.4-5.0) Test 08/10/16 07:44 O2 Saturation 96% (92-99) Arterial Blood pH 7.43 (7.35-7.45) Arterial Blood pCO2 at Patient Temp 34mmHg (35-46) Arterial Blood pO2 at Patient Temp 92mmHg (75-108) Arterial Blood HCO3 22mmol/L (21-28) Arterial Blood Base Excess -2mmol/L (-3-3) FiO2 40 Review of Systems Review of Systems The patient has not had problems with nausea or feeling like he was going to vomit. He has not had lightheadedness or any tunneling of the vision. Assessment and Plan Assessmemt and Plan Problems Medical Problems: (1) CAD (coronary artery disease), [place] coronary artery Status: Acute (2) Chest pain Status: Acute (3) STEMI (ST elevation myocardial infarction) Status: Acute Assessment: Mr. Alvarado originally presented with chest pain. -Severe three-vessel coronary artery disease found on cath -S/P CABG x3 -Critical Illness Neuropathy -Resp failure on Vent -Mediastinal Washout -Multiple procedures -A-fib -Hypertension -STEMI -Cardiogenic shock -Ischemic cardiomyopathy -JAKE -SDH -Hemodialysis catheter -Right renal mass Plan: 1. Continue antibiotics Zosyn and linezolid per ID 2. Continue calcium replacement 3. Continue amiodarone for post-operative ventricular fibrillation per cardiology 4. Continue PPI PPX 5. Continue sedative medication alprazolam 6. Continue phosphate removal with sevelamer 7. PT/OT 8. Recheck labs 9. Continue DVT prophylaxis 10. Monitor newly elevated LFT's 11. Monitor for LTAC results 12. Continue home medications 13. Continue breathing treatments 14. Appreciate consultation from IR, nephrology, cardiology, ID, neurology, pulmonology, gastroenterology, and cardiothoracic surgery Prognosis is guarded Problems: Comment Review of Relevant I have reviewed the following items leonidas (where applicable) has been applied. Labs Laboratory Tests Test 08/08/16 17:15 08/09/16 00:13 08/09/16 05:00 08/09/16 06:01 Glucose (Fingerstick) 134mg/dL (70-99) 141mg/dL (70-99) 118mg/dL (70-99) White Blood Count 6.0x10^3/uL (4.0-11.0) Red Blood Count 2.37x10^6/uL (4.30-5.70) Hemoglobin 7.6g/dL (13.0-17.5) Hematocrit 22.6% (39.0-53.0) Mean Corpuscular Volume 96fL (79-100) Mean Corpuscular Hemoglobin 32pg (25-35) Mean Corpuscular Hemoglobin Concent 34g/dL (31-37) Red Cell Distribution Width 17.6% (11.5-14.5) Platelet Count 123x10^3/uL (140-400) Neutrophils (%) (Auto) 87% (31-73) Lymphocytes (%) (Auto) 6% (24-48) Monocytes (%) (Auto) 6% (0-9) Eosinophils (%) (Auto) 1% (0-3) Basophils (%) (Auto) 0% (0-3) Neutrophils # (Auto) 5.2x10^3uL (1.8-7.7) Lymphocytes # (Auto) 0.4x10^3/uL (1.0-4.8) Monocytes # (Auto) 0.4x10^3/uL (0.0-1.1) Eosinophils # (Auto) 0.0x10^3/uL (0.0-0.7) Basophils # (Auto) 0.0x10^3/uL (0.0-0.2) Test 08/09/16 06:09 08/09/16 08:30 08/09/16 14:07 08/09/16 16:36 Sodium Level 138mmol/L (136-145) Potassium Level 4.4mmol/L (3.5-5.1) Chloride Level 98mmol/L (98-107) Carbon Dioxide Level 26mmol/L (21-32) Anion Gap 14 (6-14) Blood Urea Nitrogen 93mg/dL (8-26) Creatinine 3.9mg/dL (0.7-1.3) Estimated GFR (Cockcroft-Gault) 16.0 BUN/Creatinine Ratio 24 (6-20) Glucose Level 126mg/dL (70-99) Calcium Level 8.0mg/dL (8.5-10.1) Phosphorus Level 6.6mg/dL (2.6-4.7) Total Bilirubin 2.3mg/dL (0.2-1.0) Aspartate Amino Transf (AST/SGOT) 176U/L (15-37) Alanine Aminotransferase (ALT/SGPT) 157U/L (16-63) Alkaline Phosphatase 104U/L (46-116) Total Protein 5.4g/dL (6.4-8.2) Albumin 2.2g/dL (3.4-5.0) Albumin/Globulin Ratio 0.7 (1.0-1.7) Prothrombin Time 16.6SEC (11.7-14.0) Prothromb Time International Ratio 1.4 (0.8-1.1) Glucose (Fingerstick) 125mg/dL (70-99) 122mg/dL (70-99) Test 08/10/16 00:39 08/10/16 06:00 08/10/16 06:06 08/10/16 07:44 Glucose (Fingerstick) 146mg/dL (70-99) 134mg/dL (70-99) White Blood Count 8.7x10^3/uL (4.0-11.0) Red Blood Count 2.41x10^6/uL (4.30-5.70) Hemoglobin 7.8g/dL (13.0-17.5) Hematocrit 23.0% (39.0-53.0) Mean Corpuscular Volume 96fL (79-100) Mean Corpuscular Hemoglobin 32pg (25-35) Mean Corpuscular Hemoglobin Concent 34g/dL (31-37) Red Cell Distribution Width 19.1% (11.5-14.5) Platelet Count 140x10^3/uL (140-400) Neutrophils (%) (Auto) 90% (31-73) Lymphocytes (%) (Auto) 5% (24-48) Monocytes (%) (Auto) 5% (0-9) Eosinophils (%) (Auto) 0% (0-3) Basophils (%) (Auto) 0% (0-3) Neutrophils # (Auto) 7.8x10^3uL (1.8-7.7) Lymphocytes # (Auto) 0.5x10^3/uL (1.0-4.8) Monocytes # (Auto) 0.4x10^3/uL (0.0-1.1) Eosinophils # (Auto) 0.0x10^3/uL (0.0-0.7) Basophils # (Auto) 0.0x10^3/uL (0.0-0.2) Sodium Level 136mmol/L (136-145) Potassium Level 4.6mmol/L (3.5-5.1) Chloride Level 95mmol/L (98-107) Carbon Dioxide Level 22mmol/L (21-32) Anion Gap 19 (6-14) Blood Urea Nitrogen 127mg/dL (8-26) Creatinine 4.8mg/dL (0.7-1.3) Estimated GFR (Cockcroft-Gault) 12.6 Glucose Level 153mg/dL (70-99) Calcium Level 8.2mg/dL (8.5-10.1) Phosphorus Level 8.9mg/dL (2.6-4.7) Albumin 2.1g/dL (3.4-5.0) O2 Saturation 96% (92-99) Arterial Blood pH 7.43 (7.35-7.45) Arterial Blood pCO2 at Patient Temp 34mmHg (35-46) Arterial Blood pO2 at Patient Temp 92mmHg (75-108) Arterial Blood HCO3 22mmol/L (21-28) Arterial Blood Base Excess -2mmol/L (-3-3) FiO2 40 Laboratory Tests Test 08/09/16 16:36 08/10/16 00:39 08/10/16 06:00 08/10/16 06:06 Glucose (Fingerstick) 122mg/dL (70-99) 146mg/dL (70-99) 134mg/dL (70-99) White Blood Count 8.7x10^3/uL (4.0-11.0) Red Blood Count 2.41x10^6/uL (4.30-5.70) Hemoglobin 7.8g/dL (13.0-17.5) Hematocrit 23.0% (39.0-53.0) Mean Corpuscular Volume 96fL (79-100) Mean Corpuscular Hemoglobin 32pg (25-35) Mean Corpuscular Hemoglobin Concent 34g/dL (31-37) Red Cell Distribution Width 19.1% (11.5-14.5) Platelet Count 140x10^3/uL (140-400) Neutrophils (%) (Auto) 90% (31-73) Lymphocytes (%) (Auto) 5% (24-48) Monocytes (%) (Auto) 5% (0-9) Eosinophils (%) (Auto) 0% (0-3) Basophils (%) (Auto) 0% (0-3) Neutrophils # (Auto) 7.8x10^3uL (1.8-7.7) Lymphocytes # (Auto) 0.5x10^3/uL (1.0-4.8) Monocytes # (Auto) 0.4x10^3/uL (0.0-1.1) Eosinophils # (Auto) 0.0x10^3/uL (0.0-0.7) Basophils # (Auto) 0.0x10^3/uL (0.0-0.2) Sodium Level 136mmol/L (136-145) Potassium Level 4.6mmol/L (3.5-5.1) Chloride Level 95mmol/L (98-107) Carbon Dioxide Level 22mmol/L (21-32) Anion Gap 19 (6-14) Blood Urea Nitrogen 127mg/dL (8-26) Creatinine 4.8mg/dL (0.7-1.3) Estimated GFR (Cockcroft-Gault) 12.6 Glucose Level 153mg/dL (70-99) Calcium Level 8.2mg/dL (8.5-10.1) Phosphorus Level 8.9mg/dL (2.6-4.7) Albumin 2.1g/dL (3.4-5.0) Test 08/10/16 07:44 O2 Saturation 96% (92-99) Arterial Blood pH 7.43 (7.35-7.45) Arterial Blood pCO2 at Patient Temp 34mmHg (35-46) Arterial Blood pO2 at Patient Temp 92mmHg (75-108) Arterial Blood HCO3 22mmol/L (21-28) Arterial Blood Base Excess -2mmol/L (-3-3) FiO2 40 Microbiology 08/02/16 Blood Culture - Final, Complete NO GROWTH AFTER 5 DAYS 08/03/16 Sputum Culture - Final, Complete 08/03/16 Sputum Result 1 - Final, Complete 08/03/16 Sputum Result 2 - Final, Complete 08/03/16 Antimicrobic Susceptibility - Final, Complete 08/02/16 Urine Culture - Final, Complete 08/02/16 Urine Culture Result 1 (MILEY) - Final, Complete 08/03/16 Gram Stain - Final, Complete Medications Current Medications Nitroglycerin 0.4 mg 0.4 mg PRN Q5MIN PRN SL CP RATING > 1/10; Start 07/20/16 at 09:45; Stop 07/20/16 at 15:05; Status DC Nitroglycerin/ Dextrose (Nitroglycerin Drip) 250 ml @ 3 mls/hr 1X ONCE IV Last administered on 07/20/16 10:02; Start 07/20/16 at 10:30; Stop 07/23/16 at 21: 49; Status DC Morphine Sulfate 2 mg PRN Q15MIN PRN IV/SQ PAIN GREATER THAN 3/10; Start at 09:45; Stop 07/21/16 at 09:44; Status DC Ondansetron HCl (Zofran) 4 mg PRN Q8HRS PRN IV NAUSEA/VOMITING; Start 07/20/16 at 12:30; Stop 07/20/16 at 13:36; Status DC Morphine Sulfate 2 mg 2 mg PRN Q2HR PRN IV PAIN; Start 07/20/16 at 12:30; Stop 07/21/16 at 12:29; Status DC Heparin Sodium/ Dextrose 500 ml @ 0 mls/hr CONT PRN IV . Last administered on 10:32; Start 07/20/16 at 13:00; Stop 07/21/16 at 14:50; Status DC Metoprolol Tartrate (Lopressor) 5 mg Q6HRS IVP ; Start 07/20/16 at 13:00; Stop at 14:53; Status DC Aspirin (Ecotrin) 325 mg [id number] PO Last administered on 07/21/16 08:11; Start 07/20/16 at 13:00; Stop 07/21/16 at 17:20; Status DC Ondansetron HCl (Zofran) 4 mg PRN Q6HRS PRN IV NAUSEA/VOMITING; Start 07/20/16 at 13:35; Stop 07/26/16 at 11:41; Status DC Acetaminophen (Tylenol) 500 mg PRN Q6HRS PRN PO MILD PAIN / TEMP Last administered on 07/29/16 09:55; Start 07/20/16 at 13:45; Stop 07/29/16 at 13:38 ; Status DC Docusate Sodium (Colace) 100 mg DAILY PO Last administered on 07/29/16 09:54; Start 07/20/16 at 15:00; Stop 07/29/16 at 10:03; Status DC Iohexol 100 ml 100 ml STK-MED ONCE .ROUTE ; Start 07/20/16 at 12:40; Stop at 13:44; Status DC Heparin Sodium/ Sodium Chloride 1,000 ml @ As Directed STK-MED ONCE .ROUTE ; Start 07/20/16 at 12:41; Stop 07/20/16 at 13:44; Status DC Lidocaine HCl 20 ml STK-MED ONCE .ROUTE ; Start 07/20/16 at 12:41; Stop 07/20/16 at 13:44; Status DC Fentanyl Citrate (Fentanyl 2ml Vial) 100 mcg STK-MED ONCE .ROUTE ; Start at 13:42; Stop 07/20/16 at 13:45; Status DC Midazolam HCl (Versed) 2 mg STK-MED ONCE .ROUTE ; Start 07/20/16 at 13:42; Stop 07/20/16 at 13:45; Status DC Heparin Sodium/ Sodium Chloride 1,000 unit 1X ONCE IART Last administered on 14:29; Start 07/20/16 at 14:00; Stop 07/20/16 at 14:01; Status DC Heparin Sodium/ Sodium Chloride 1,000 unit 1X ONCE IART Last administered on 14:29; Start 07/20/16 at 14:00; Stop 07/20/16 at 14:01; Status DC Midazolam HCl (Versed) 2 mg 1X ONCE IV Last administered on 07/20/16 14:28; Start 07/20/16 at 14:00; Stop 07/20/16 at 14:01; Status DC Fentanyl Citrate (Fentanyl 2ml Vial) 100 mcg 1X ONCE IV Last administered on 14:28; Start 07/20/16 at 14:00; Stop 07/20/16 at 14:01; Status DC Iohexol (Omnipaque 300 Mg/ml) 100 ml 1X ONCE IART Last administered on 14:29; Start 07/20/16 at 14:00; Stop 07/20/16 at 14:01; Status DC Lidocaine HCl 20 ml 1X ONCE IJ Last administered on 07/20/16 14:29; Start 07/20 at 14:00; Stop 07/20/16 at 14:01; Status DC Midazolam HCl (Versed) 2 mg STK-MED ONCE .ROUTE ; Start 07/20/16 at 14:15; Stop 07/20/16 at 14:16; Status DC Sodium Chloride 3 ml 3 ml QSHIFT PRN IV AFTER MEDS AND BLOOD DRAWS; Start at 14:45; Stop 07/29/16 at 13:51; Status DC Sodium Chloride (Iv Sodium Chloride 0.9% 1000ml Bag) 1,000 ml @ 60 mls/hr [id number] IV Last administered on 07/20/16 14:44; Start 07/20/16 at 14:44; Stop at 00:43; Status DC Metoprolol Tartrate (Lopressor) 12.5 mg BID PO ; Start 07/20/16 at 21:00; Stop at 21:00; Status DC Lisinopril (Prinivil) 5 mg DAILY PO Last administered on 07/20/16 16:25; Start 07/20/16 at 15:00; Stop 07/20/16 at 17:21; Status DC Atorvastatin Calcium (Lipitor) 20 mg QHS PO Last administered on 07/20/16 20:33 ; Start 07/20/16 at 21:00; Stop 07/21/16 at 08:11; Status DC Nitroglycerin (Nitrostat) 0.4 mg PRN Q5MIN PRN SL CHEST PAIN Last administered on 07/25/16 04:55; Start 07/20/16 at 14:45; Stop 07/26/16 at 11:41; Status DC Hydralazine HCl (Apresoline) 10 mg PRN Q4HRS PRN IVP ELEVATED BP, SEE COMMENTS Last administered on 07/31/16 10:58; Start 07/20/16 at 17:15; Stop 07/31/16 at 13:31; Status DC Metoprolol Tartrate (Lopressor) 50 mg BID PO Last administered on 07/22/16 08: 31; Start 07/20/16 at 21:00; Stop 07/22/16 at 19:03; Status DC Alprazolam (Xanax) 0.25 mg PRN Q8HRS PRN PO ANXIETY / AGITATION Last administered on 07/24/16 21:34; Start 07/20/16 at 17:30; Stop 07/29/16 at 13:38; Status DC Heparin Sodium (Porcine) 2050 unit 2,050 unit PRN Q6HRS PRN IV FOR UFH LEVEL LESS THAN 0.2 Last administered on 07/21/16 04:24; Start 07/20/16 at 19:45; Stop 07/26/16 at 08:55; Status DC Heparin Sodium/ Dextrose 500 ml @ 19.4 mls/hr CONT PRN IV SEE I/O RECORD; Start 07/20/16 at 19:45; Stop 07/21/16 at 16:24; Status DC Heparin Sodium (Porcine) (Heparin Sodium) 2,050 unit PRN Q6HRS PRN IV FOR UFH LEVEL LESS THAN 0.2; Start 07/20/16 at 19:45; Status UNV Atorvastatin Calcium (Lipitor) 40 mg QHS PO Last administered on 08/09/16 21: 44; Start 07/21/16 at 21:00 Iodixanol (Visipaque 320) 200 ml STK-MED ONCE .ROUTE ; Start 07/20/16 at 14:00; Stop 07/21/16 at 08:26; Status DC Zolpidem Tartrate (Ambien) 5 mg PRN QHS PRN PO INSOMNIA, MAY REPEAT IN 1HR; Start 07/21/16 at 15:30; Stop 07/29/16 at 13:38; Status DC Metoprolol Tartrate 25 mg 25 mg 1X ONCE PO ; Start 07/22/16 at 06:00; Stop at 06:02; Status DC Cefazolin Sodium/ Dextrose 50 ml @ 100 mls/hr 1X ONCE IV ; Start 07/22/16 at 06 :00; Stop 07/22/16 at 06:29; Status DC Heparin Sodium/ Dextrose 500 ml @ 0 mls/hr CONT PRN IV SEE I/O RECORD Last administered on 07/24/16 01:40; Start 07/21/16 at 16:30; Stop 07/26/16 at 08:55; Status DC Lidocaine HCl 2 ml 2 ml 1X PRN PRN ID IV START; Start 07/25/16 at 06:00; Stop 07/26/16 at 05:59; Status Cancel Lactated Ringer's (Iv Lactated Ringers) 1,000 ml @ 0 mls/hr Q0M IV Last administered on 07/25/16t 07:30; Start 07/25/16 at 06:00; Stop 07/25/16 at 17:59 ; Status DC Fentanyl Citrate (Fentanyl 2ml Vial) 25 mcg PRN Q5MIN PRN IV Acute Pain; Start 07/22/16 at 09:15; Stop 07/23/16 at 09:14; Status DC Morphine Sulfate 2 mg PRN Q10MIN PRN IV Mild Pain; Start 07/22/16 at 09:15; Stop 07/23/16 at 09:14; Status DC Hydromorphone HCl (Dilaudid) 0.4 mg PRN Q10MIN PRN IV Moderate to severe pain; Start 07/22/16 at 09:15; Stop 07/23/16 at 09:14; Status DC Ondansetron HCl (Zofran) 4 mg PRN Q6HRS PRN IV Nausea, 1st Choice; Start at 09:15; Stop 07/23/16 at 09:14; Status DC Prochlorperazine Edisylate (Compazine) 5 mg PRN Q6HRS PRN IV Nausea/Vomiting, 2nd Choice; Start 07/22/16 at 09:15; Stop 07/23/16 at 09:14; Status DC Ondansetron HCl (Zofran) 4 mg PRN Q6HRS PRN IV NAUSEA/VOMITING; Start 07/25/16 at 07:00; Stop 07/26/16 at 06:59; Status DC Fentanyl Citrate (Fentanyl 2ml Vial) 25 mcg PRN Q5MIN PRN IV MILD PAIN; Start 07/25/16 at 07:00; Stop 07/26/16 at 06:59; Status DC Fentanyl Citrate (Fentanyl 2ml Vial) 50 mcg PRN Q5MIN PRN IV MODERATE PAIN; Start 07/25/16 at 07:00; Stop 07/26/16 at 06:59; Status DC Morphine Sulfate 1 mg 1 mg PRN Q10MIN PRN IV SEVERE PAIN; Start 07/25/16 at 07: 00; Stop 07/25/16 at 20:28; Status DC Lactated Ringer's (Iv Lactated Ringers) 1,000 ml @ 0 mls/hr Q0M IV ; Start 01/31 at 07:00; Stop 07/25/16 at 18:59; Status Cancel Lidocaine HCl 2 ml PRN 1X PRN ID PRIOR TO IV START Last administered on 07:16; Start 07/25/16 at 07:00; Stop 07/26/16 at 06:59; Status DC Hydromorphone HCl (Dilaudid) 0.5 mg PRN Q10MIN PRN IV SEV PAIN, Second choice; Start 07/25/16 at 07:00; Stop 07/26/16 at 06:59; Status DC Prochlorperazine Edisylate 5 mg 5 mg PACU PRN PRN IV NAUSEA, MRX1; Start at 07:00; Stop 07/26/16 at 06:59; Status DC Cefazolin Sodium/ Dextrose (Ancef 2gm Premix) 50 ml @ 100 mls/hr 1X ONCE IV Last administered on 07/25/16 08:12; Start 07/25/16 at 06:00; Stop 07/25/16 at 06:29; Status DC Metoprolol Tartrate (Lopressor) 25 mg 1X ONCE PO ; Start 07/25/16 at 06:00; Stop 07/25/16 at 06:00; Status DC Metoprolol Tartrate (Lopressor) 2.5 mg 1X ONCE IVP Last administered on 16:30; Start 07/22/16 at 16:30; Stop 07/22/16 at 16:31; Status DC Digoxin (Lanoxin) 250 mcg 1X ONCE IV ; Start 07/22/16 at 18:30; Stop 07/22/16 at 18:42; Status DC Digoxin (Lanoxin) 500 mcg 1X ONCE IV Last administered on 07/22/16 18:47; Start 07/22/16 at 18:45; Stop 07/22/16 at 18:46; Status DC Metoprolol Tartrate (Lopressor) 75 mg BID PO Last administered on 07/24/16 21: 30; Start 07/22/16 at 21:00; Stop 07/25/16 at 13:12; Status DC Nitroglycerin 0.4 mg 0.4 mg PRN Q5MIN PRN SL CHEST PAIN; Start 07/23/16 at 12:00 ; Status UNV Heparin Sodium (Porcine) 70001 unit/Lactated Ringer's 1,020 ml @ 1,020 mls/hr 1X PERIOP ONCE IRR Last administered on 07/25/16t 08:46; Start 07/25/16 at 06: 00; Stop 07/25/16 at 06:59; Status DC Potassium Chloride 70 meq/ Sodium Bicarbonate 12.5 meq/Lidocaine HCl 24 ml/ Parenteral Electrolytes 571.5 ml @ 571.5 mls/ hr 1X PERIOP ONCE IRR ; Start at 06:00; Stop 07/25/16 at 06:59; Status DC Potassium Chloride/Sodium Bicarbonate/ Parenteral Electrolytes (Isolyte S) 520 ml @ 520 mls/hr 1X PERIOP ONCE IRR ; Start 07/25/16 at 06:00; Stop 07/25/16 at 06:59; Status DC Etomidate (Amidate) 20 mg STK-MED ONCE IV ; Start 07/25/16 at 06:08; Stop at 06:09; Status DC Phenylephrine HCl (-Synephrine Inj) 10 mg STK-MED ONCE .ROUTE ; Start at 06:08; Stop 07/25/16 at 06:09; Status DC Aminocaproic Acid (Amicar) 5,000 mg STK-MED ONCE IV ; Start 07/25/16 at 06:08; Stop 07/25/16 at 06:09; Status DC Heparin Sodium (Porcine) (Heparin Sodium) 10,000 unit STK-MED ONCE .ROUTE ; Start 07/25/16 at 06:10; Stop 07/25/16 at 06:11; Status DC Rocuronium [place] (Zemuron) 100 mg STK-MED ONCE .ROUTE ; Start 07/25/16 at 06: 11; Stop 07/25/16 at 06:12; Status DC Morphine Sulfate 4 mg STK-MED ONCE .ROUTE ; Start 07/25/16 at 06:59; Stop at 07:00; Status DC Morphine Sulfate 4 mg 4 mg 1X ONCE IV ; Start 07/25/16 at 07:15; Stop 07/25/16 at 07:16; Status DC Cefazolin Sodium/ Sodium Chloride (Ancef/Iv Sodium Chloride 0.9% 500ml Bag) 500 ml @ 500 mls/hr 1X PERIOP ONCE IRR Last administered on 07/25/16 08:46; Start 07/25/16 at 07:15; Stop 07/25/16 at 08:14; Status DC Cellulose 1 each STK-MED ONCE .ROUTE Last administered on 07/25/16 08:46; Start 07/25/16 at 07:07; Stop 07/25/16 at 07:08; Status DC Vancomycin HCl (Vanco) 10 gm STK-MED ONCE .ROUTE Last administered on 08:46; Start 07/25/16 at 07:07; Stop 07/25/16 at 07:08; Status DC Papaverine HCl 60 mg STK-MED ONCE .ROUTE Last administered on 07/25/16 08:46; Start 07/25/16 at 07:07; Stop 07/25/16 at 07:08; Status DC Aspirin (Aspirin) 300 mg STK-MED ONCE .ROUTE Last administered on 07/25/16 17: 25; Start 07/25/16 at 07:08; Stop 07/25/16 at 07:09; Status DC Sodium Chloride (Sodium Chloride) 50 ml STK-MED ONCE IJ Last administered on 08:46; Start 07/25/16 at 07:08; Stop 07/25/16 at 07:09; Status DC Midazolam HCl (Versed) 2 mg STK-MED ONCE .ROUTE ; Start 07/25/16 at 07:15; Stop 07/25/16 at 07:16; Status DC Ephedrine Sulfate 50 mg 50 mg STK-MED ONCE IV ; Start 07/25/16 at 07:16; Stop at 07:17; Status DC Nitroglycerin/ Dextrose (Nitroglycerin Drip) 250 ml @ As Directed STK-MED ONCE IV ; Start 07/25/16 at 07:16; Stop 07/25/16 at 07:17; Status DC Midazolam HCl (Versed) 2 mg STK-MED ONCE .ROUTE ; Start 07/25/16 at 07:18; Stop 07/25/16 at 07:19; Status DC Fentanyl Citrate (Fentanyl 2ml Vial) 100 mcg STK-MED ONCE .ROUTE ; Start at 07:19; Stop 07/25/16 at 07:20; Status DC Sufentanil Citrate (Sufenta) 100 mcg STK-MED ONCE .ROUTE ; Start 07/25/16 at 07: 19; Stop 07/25/16 at 07:20; Status DC Midazolam HCl (Versed) 2 mg 1X ONCE IV ; Start 07/25/16 at 08:00; Stop at 08:01; Status DC Dexamethasone Sodium Phosphate (Decadron) 20 mg STK-MED ONCE .ROUTE ; Start 01/31 at 07:58; Stop 07/25/16 at 07:59; Status DC Rocuronium [place] (Zemuron) 100 mg STK-MED ONCE .ROUTE ; Start 07/25/16 at 08: 52; Stop 07/25/16 at 08:53; Status DC Sufentanil Citrate (Sufenta) 100 mcg STK-MED ONCE .ROUTE ; Start 07/25/16 at 08: 53; Stop 07/25/16 at 08:54; Status DC Protamine Sulfate 250 mg STK-MED ONCE IV ; Start 07/25/16 at 10:43; Stop at 10:44; Status DC Rocuronium [place] 100 mg 100 mg STK-MED ONCE .ROUTE ; Start 07/25/16 at 10:52; Stop 07/25/16 at 10:53; Status DC Albumin Human 0 ml @ As Directed STK-MED ONCE IV ; Start 07/25/16 at 10:53; Stop 07/25/16 at 10:54; Status DC Amiodarone HCl/ Dextrose (Cordarone) 518 ml @ 34.53 mls/ hr 1X ONCE IV Last administered on 07/25/16t 18:52; Start 07/25/16 at 11:30; Stop 07/26/16 at 02:30 ; Status DC Sodium Bicarbonate 50 meq STK-MED ONCE .ROUTE ; Start 07/25/16 at 11:35; Stop at 11:36; Status DC Protamine Sulfate 50 mg STK-MED ONCE IV ; Start 07/25/16 at 12:31; Stop at 12:32; Status DC Amiodarone HCl (Cordarone) 150 mg STK-MED ONCE .ROUTE ; Start 07/25/16 at 12:37 ; Stop 07/25/16 at 12:38; Status DC Isoflurane (Isoflurane) 90 ml STK-MED ONCE IH ; Start 07/25/16 at 12:42; Stop at 12:43; Status DC Lidocaine HCl (Lidocaine HCl 2% Abboject) 100 mg STK-MED ONCE .ROUTE ; Start 01/31 at 13:07; Stop 07/25/16 at 13:08; Status DC Mannitol (Mannitol) 12.5 g STK-MED ONCE .ROUTE ; Start 07/25/16 at 13:07; Stop 07/25/16 at 13:08; Status DC Calcium Chloride 1,000 mg STK-MED ONCE IV ; Start 07/25/16 at 13:07; Stop at 13:08; Status DC Sodium Bicarbonate 50 meq 50 meq STK-MED ONCE .ROUTE ; Start 07/25/16 at 13:07; Stop 07/25/16 at 13:08; Status DC Albumin Human (Albuminar) 100 ml @ As Directed STK-MED ONCE IV ; Start at 13:07; Stop 07/25/16 at 13:08; Status DC Magnesium Sulfate 5 gm STK-MED ONCE .ROUTE ; Start 07/25/16 at 13:08; Stop 07/25 at 13:09; Status DC Heparin Sodium (Porcine) 74150 unit 30,000 unit STK-MED ONCE .ROUTE ; Start 01/31 at 13:08; Stop 07/25/16 at 13:09; Status DC Clevidipine (Cleviprex) 100 ml @ 0 mls/hr CONT PRN IV PER PROTOCOL; Start 07/25 at 13:45; Stop 07/26/16 at 11:29; Status DC Heparin Sodium (Porcine) 52371 unit 30,000 unit STK-MED ONCE .ROUTE ; Start 01/31 at 13:39; Stop 07/25/16 at 13:40; Status DC Epinephrine HCl/ Sodium Chloride (Adrenalin/Iv Sodium Chloride 0.9% 250ml) 254 ml @ 3.81 mls/hr CONT PRN IV SEE I/O RECORD; Start 07/25/16 at 13:45; Stop at 13:38; Status DC Epinephrine HCl (Epinephrine Syringe) 1 mg STK-MED ONCE .ROUTE ; Start 07/25/16 at 13:52; Stop 07/25/16 at 13:53; Status DC Rocuronium [place] (Zemuron) 100 mg STK-MED ONCE .ROUTE ; Start 07/25/16 at 13: 57; Stop 07/25/16 at 13:58; Status DC Sodium Bicarbonate 50 meq 50 meq STK-MED ONCE .ROUTE ; Start 07/25/16 at 14:04; Stop 07/25/16 at 14:05; Status DC Procainamide HCl/ Dextrose (Pronestyl) 520 ml @ 15.6 mls/hr CONT PRN IV SEE I/ O RECORD; Start 07/25/16 at 14:30; Stop 07/28/16 at 15:22; Status DC Sodium Bicarbonate 50 meq STK-MED ONCE .ROUTE ; Start 07/25/16 at 14:31; Stop at 14:32; Status DC Sodium Bicarbonate 50 meq STK-MED ONCE .ROUTE ; Start 07/25/16 at 14:31; Stop at 14:32; Status DC Protamine Sulfate 50 mg STK-MED ONCE IV ; Start 07/25/16 at 15:13; Stop at 15:14; Status DC Protamine Sulfate 50 mg STK-MED ONCE IV ; Start 07/25/16 at 15:13; Stop at 15:14; Status DC Isoflurane 90 ml 90 ml STK-MED ONCE IH ; Start 07/25/16 at 15:13; Stop 07/25/16 at 15:14; Status DC Dobutamine HCl/ Dextrose 250 ml @ As Directed STK-MED ONCE IV ; Start 07/25/16 at 15:17; Stop 07/25/16 at 15:18; Status DC Iohexol 100 ml 100 ml STK-MED ONCE .ROUTE Last administered on 07/25/16t 15:39 ; Start 07/25/16 at 15:28; Stop 07/25/16 at 15:29; Status DC Norepinephrine Bitartrate 8 mg/ Sodium Chloride 258 ml @ 1.93 mls/hr 1X ONCE IV Last administered on 07/25/16t 18:53; Start 07/25/16 at 16:00; Stop at 08:04; Status DC Albumin Human (Plasmanate) 1,000 ml @ As Directed STK-MED ONCE IV ; Start 07/25 at 16:11; Stop 07/25/16 at 16:12; Status DC Heparin Sodium (Porcine) (Heparin Sodium) 10,000 unit STK-MED ONCE .ROUTE ; Start 07/25/16 at 16:19; Stop 07/25/16 at 16:20; Status DC Lidocaine HCl (Lidocaine HCl 2% Abboject) 100 mg STK-MED ONCE .ROUTE ; Start 01/31 at 16:19; Stop 07/25/16 at 16:20; Status DC Mannitol (Mannitol) 12.5 g STK-MED ONCE .ROUTE ; Start 07/25/16 at 16:19; Stop 07/25/16 at 16:20; Status DC Calcium Chloride 1,000 mg STK-MED ONCE IV ; Start 07/25/16 at 16:19; Stop at 16:20; Status DC Sodium Bicarbonate 50 meq STK-MED ONCE .ROUTE ; Start 07/25/16 at 16:19; Stop at 16:20; Status DC Magnesium Sulfate 5 gm STK-MED ONCE .ROUTE ; Start 07/25/16 at 16:19; Stop 07/25 at 16:20; Status DC Heparin Sodium (Porcine) (Heparin Sodium) 10,000 unit STK-MED ONCE .ROUTE ; Start 07/25/16 at 16:20; Stop 07/25/16 at 16:21; Status DC Lidocaine HCl (Lidocaine HCl 2% Abboject) 100 mg STK-MED ONCE .ROUTE ; Start 01/31 at 16:20; Stop 07/25/16 at 16:21; Status DC Aminocaproic Acid (Amicar) 5,000 mg STK-MED ONCE IV ; Start 07/25/16 at 16:20; Stop 07/25/16 at 16:21; Status DC Mannitol (Mannitol) 12.5 g STK-MED ONCE .ROUTE ; Start 07/25/16 at 16:20; Stop 07/25/16 at 16:21; Status DC Sodium Bicarbonate 50 meq 50 meq STK-MED ONCE .ROUTE ; Start 07/25/16 at 16:20; Stop 07/25/16 at 16:21; Status DC Albumin Human (Albuminar) 100 ml @ As Directed STK-MED ONCE IV ; Start at 16:20; Stop 07/25/16 at 16:21; Status DC Rocuronium [place] (Zemuron) 50 mg STK-MED ONCE .ROUTE ; Start 07/25/16 at 16:33 ; Stop 07/25/16 at 16:34; Status DC Rocuronium [place] (Zemuron) 50 mg STK-MED ONCE .ROUTE ; Start 07/25/16 at 16:33 ; Stop 07/25/16 at 16:34; Status DC Protamine Sulfate 50 mg STK-MED ONCE IV ; Start 07/25/16 at 16:34; Stop at 16:35; Status DC Sodium Bicarbonate 50 meq STK-MED ONCE .ROUTE ; Start 07/25/16 at 16:36; Stop at 16:37; Status DC Calcium Chloride 1,000 mg STK-MED ONCE IV ; Start 07/25/16 at 16:41; Stop at 16:42; Status DC Epinephrine HCl (Epinephrine Syringe) 1 mg STK-MED ONCE .ROUTE ; Start 07/25/16 at 16:41; Stop 07/25/16 at 16:42; Status DC Sodium Bicarbonate 50 meq STK-MED ONCE .ROUTE ; Start 07/25/16 at 16:52; Stop at 16:53; Status DC Sodium Bicarbonate 50 meq STK-MED ONCE .ROUTE ; Start 07/25/16 at 16:52; Stop at 16:53; Status DC Sodium Bicarbonate 50 meq STK-MED ONCE .ROUTE ; Start 07/25/16 at 16:52; Stop at 16:53; Status DC Vasopressin (Vasostrict) 20 unit STK-MED ONCE .ROUTE ; Start 07/25/16 at 16:54; Stop 07/25/16 at 16:55; Status DC Famotidine (Pepcid) 20 mg STK-MED ONCE .ROUTE ; Start 07/25/16 at 16:56; Stop at 16:57; Status DC Dexamethasone Sodium Phosphate (Decadron) 20 mg STK-MED ONCE .ROUTE ; Start 01/31 at 16:56; Stop 07/25/16 at 16:57; Status DC Diphenhydramine HCl 50 mg 50 mg STK-MED ONCE .ROUTE ; Start 07/25/16 at 16:56; Stop 07/25/16 at 16:57; Status DC Vasopressin/ Dextrose (Vasostrict) 102 ml @ 6 mls/hr CONT PRN IV SEE I/O RECORD Last administered on 08/03/16 18:28; Start 07/25/16 at 17:15; Stop 08/08 at 14:02; Status DC Sodium Bicarbonate 50 meq STK-MED ONCE .ROUTE ; Start 07/25/16 at 17:24; Stop at 17:25; Status DC Sodium Bicarbonate 50 meq 50 meq STK-MED ONCE .ROUTE ; Start 07/25/16 at 17:24; Stop 07/25/16 at 17:25; Status DC Cefazolin Sodium/ Dextrose (Ancef 2gm Premix) 50 ml @ As Directed STK-MED ONCE IV ; Start 07/25/16 at 17:32; Stop 07/25/16 at 17:33; Status DC Sodium Chloride 3 ml 3 ml PRN Q12HR PRN IV AFTER MEDS AND BLOOD DRAWS; Start at 17:30; Stop 07/29/16 at 13:38; Status DC Lactated Ringer's 1,000 ml @ 15 mls/hr Q24H IV Last administered on 07/29/16 16:45; Start 07/25/16 at 17:30; Stop 07/31/16 at 15:33; Status DC Insulin Human Regular/Sodium Chloride (Novolin R Vial/ Iv Normal Saline 150ml) 151.5 ml @ 0 mls/hr CONT PRN PRN IV SEE I/O RECORD Last administered on 03:03; Start 07/25/16 at 17:30; Stop 07/29/16 at 13:51; Status DC Dextrose 25 gm 25 gm PRN Q15MIN PRN IV LOW BLOOD SUGAR; Start 07/25/16 at 17:30 ; Stop 07/29/16 at 13:51; Status DC Dopamine HCl/ Dextrose 250 ml @ 0 mls/hr CONT PRN PRN IV SEE I/O RECORD; Start 07/25/16 at 17:30; Stop 07/26/16 at 11:41; Status DC Amiodarone HCl/ Dextrose (Cordarone) 518 ml @ 33.33 mls/ hr CONT PRN PRN IV SEE COMMENTS; Start 07/25/16 at 17:30; Status UNV Info 1 ea CONT PRN PRN MC SEE COMMENTS; Start 07/25/16 at 17:30; Stop 08/03/16 at 12:57; Status DC Info 1 ea 1 ea CONT PRN PRN MC SEE COMMENTS; Start 07/25/16 at 17:30; Stop at 13:38; Status DC Magnesium Sulfate/ Dextrose (Magnesium Sulfate PREMIX 1GM) 100 ml @ 100 mls/hr PRN DAILY PRN IV FOR MAG < 2.2 Last administered on 07/27/16 10:59; Start 01/31 at 17:30; Stop 08/08/16 at 13:38; Status DC Famotidine (Pepcid) 20 mg BID IVP Last administered on 08/03/16 09:15; Start 07/25/16 at 21:00; Stop 08/03/16 at 15:28; Status DC Metoclopramide HCl (Reglan) 10 mg PRN Q6HRS PRN IV NAUSEA/VOMITING Last administered on 08/07/16 07:26; Start 07/25/16 at 17:30; Stop 08/08/16 at 13:39 ; Status DC Morphine Sulfate 2 mg PRN Q1HR PRN IV PAIN Last administered on 07/28/16 14:21 ; Start 07/25/16 at 17:30; Stop 07/29/16 at 13:38; Status DC Acetaminophen (Tylenol) 650 mg PRN Q4HRS PRN PO MILD PAIN / TEMP; Start at 17:30; Stop 07/29/16 at 13:38; Status DC Acetaminophen (Acetaminophen Supp) 650 mg PRN Q4HRS PRN ID MILD PAIN / TEMP Last administered on 08/03/16 01:04; Start 07/25/16 at 17:30 Meperidine HCl 12.5 mg 12.5 mg PRN Q15MIN PRN IV SHIVERING; Start 07/25/16 at 17:30; Stop 07/29/16 at 13:38; Status DC Propofol (Diprivan) 100 ml @ 0 mls/hr CONT PRN PRN IV POSTOP SEDATION UNTIL EXTUBATE; Start 07/25/16 at 17:30; Stop 07/28/16 at 15:22; Status DC Aspirin (Ecotrin) 325 mg DAILYWBKFT PO Last administered on 07/29/16 09:54; Start 07/26/16 at 08:00; Stop 07/29/16 at 09:59; Status DC Aspirin (Aspirin) 300 mg PRN DAILY PRN ID IF UNABLE TO TAKE PO; Start 07/25/16 at 17:30; Stop 07/26/16 at 12:00; Status DC Acetaminophen/ Hydrocodone Bitart (Lortab 5/325) 1 tab PRN Q4HRS PRN PO MILD PAIN; Start 07/25/16 at 17:30; Stop 08/03/16 at 12:24; Status DC Acetaminophen/ Hydrocodone Bitart 2 tab 2 tab PRN Q4HRS PRN PO MODERATE PAIN, SEVERE PAIN; Start 07/25/16 at 17:30; Stop 08/03/16 at 12:24; Status DC Cefazolin Sodium/ Dextrose 50 ml @ 100 mls/hr Q8H IV ; Start 07/25/16 at 18:00 ; Stop 07/25/16 at 21:42; Status DC Albumin Human 250 ml @ 62.5 mls/hr 1X ONCE IV Last administered on 07/27/16 17:52; Start 07/25/16 at 17:30; Stop 07/25/16 at 21:29; Status DC Midazolam HCl 100 ml @ As Directed STK-MED ONCE IV ; Start 07/25/16 at 18:06; Stop 07/25/16 at 18:07; Status DC Midazolam HCl 100 ml @ 0 mls/hr CONT PRN IV SEE I/O RECORD Last administered on 07/25/16 18:56; Start 07/25/16 at 18:15; Stop 07/26/16 at 08:59; Status DC Vancomycin HCl 1 gm/Sodium Chloride 250 ml @ 250 mls/hr 1X ONCE IV Last administered on 07/25/16 20:56; Start 07/25/16 at 18:15; Stop 07/25/16 at 19:14 ; Status DC Piperacillin Sod/ Tazobactam Sod/ Sodium Chloride (Zosyn/Iv Sodium Chloride 0.9 % 50ml) 50 ml @ 100 mls/hr Q6HRS IV Last administered on 07/31/16 05:32; Start 07/25/16 at 18:15; Stop 07/31/16 at 10:25; Status DC Midazolam HCl (Versed) 2 mg PRN Q20MIN PRN IV SEDATION; Start 07/25/16 at 18:15 ; Stop 07/25/16 at 18:39; Status DC Midazolam HCl 5 mg 5 mg PRN Q30MIN PRN IV SEDATION; Start 07/25/16 at 18:15; Stop 07/25/16 at 18:39; Status DC Vecuronium [place] 100 mg/ Dextrose 100 ml @ 0 mls/hr 1X ONCE IV Last administered on 07/25/16 19:43; Start 07/25/16 at 18:15; Stop 07/25/16 at 18:17 ; Status DC Midazolam HCl 100 ml @ 0 mls/hr CONT PRN IV SEE I/O RECORD Last administered on 07/28/16 19:40; Start 07/25/16 at 18:45; Stop 08/09/16 at 18:00; Status DC Dobutamine HCl/ Dextrose 250 ml @ 0 mls/hr CONT PRN IV SEE I/O RECORD Last administered on 07/29/16 03:10; Start 07/25/16 at 18:45; Stop 07/29/16 at 13:38 ; Status DC Potassium Chloride 50 ml @ 50 mls/hr Q1H IV Last administered on 07/25/16 22: 58; Start 07/25/16 at 21:00; Stop 07/25/16 at 23:59; Status DC Cefazolin Sodium/ Dextrose 50 ml @ 100 mls/hr Q8H IV Last administered on 07/27 05:34; Start 07/25/16 at 22:00; Stop 07/27/16 at 06:29; Status DC Heparin Sodium (Porcine) 15127 unit/Dextrose 512.5 ml @ 0 mls/hr Q0M ONCE IV Last administered on 07/25/16 22:21; Start 07/25/16 at 22:15; Stop 07/25/16 at 22:16; Status DC Vecuronium [place]/Dextrose (Norcuron) 100 ml @ 0 mls/hr CONT PRN IV SEE I/O RECORD Last administered on 07/26/16 01:07; Start 07/26/16 at 00:45; Stop 07/29 at 13:38; Status DC Dextrose 25 gm 25 gm 1X ONCE IV Last administered on 07/26/16 01:08; Start at 01:00; Stop 07/26/16 at 01:18; Status DC Amiodarone HCl/ Dextrose (Cordarone) 259 ml @ 17.26 mls/ hr CONT PRN IV SEE I/ O RECORD Last administered on 07/30/16 13:02; Start 07/26/16 at 06:45; Stop at 15:33; Status DC Cefazolin Sodium/ Dextrose 2 gm 2 gm STK-MED ONCE IV ; Start 07/25/16 at 11:00; Stop 07/26/16 at 08:53; Status DC Lactated Ringer's 500 ml @ 5,000 mls/hr PRN Q10MIN PRN IV CVP <14; Start 07/26 at 10:00; Stop 07/29/16 at 13:38; Status DC Fentanyl Citrate (Fentanyl 600 Mcg/30 ml REACTOR KETTLE OPERATOR) 30 ml @ 0 mls/hr CONT PRN IV PROTOCOL Last administered on 07/31/16 09:12; Start 07/26/16 at 10:00; Stop at 13:31; Status DC Fentanyl Citrate (Fentanyl 2ml Vial) 25 mcg PRN Q1HR PRN IV COMM; Start at 10:00; Stop 07/29/16 at 13:38; Status DC Fentanyl Citrate (Fentanyl 2ml Vial) 50 mcg PRN Q1HR PRN IV COMM; Start at 10:00; Stop 07/29/16 at 13:38; Status DC Chlorhexidine Gluconate (Peridex) 15 ml BID MM Last administered on 08/09/16 07:46; Start 07/26/16 at 10:30; Stop 08/09/16 at 18:00; Status DC Sulfur Hexafluoride Microspheres (Lumason) 25 mg STK-MED ONCE IVP ; Start at 11:29; Stop 07/26/16 at 11:30; Status DC Aspirin 300 mg 300 mg DAILY ID Last administered on 07/28/16 07:55; Start 03/03 at 12:00; Stop 07/29/16 at 19:10; Status DC Potassium Chloride (KCl Premix 20meq) 50 ml @ 50 mls/hr 1X ONCE IV Last administered on 07/26/16 12:55; Start 07/26/16 at 12:00; Stop 07/26/16 at 12:59 ; Status DC Sulfur Hexafluoride Microspheres (Lumason) 25 mg 1X ONCE IVP Last administered on 07/26/16 11:45; Start 07/26/16 at 11:45; Stop 07/26/16 at 11:50 ; Status DC Multi-Ingred Cream/Lotion/Oil/ Oint (Artificial Tears Eye Oint) 1 adri BID OU Last administered on 08/09/16 07:46; Start 07/26/16 at 21:00 Ondansetron HCl (Zofran) 4 mg PRN Q6HRS PRN IV NAUSEA/VOMITING; Start 07/27/16 at 07:00; Stop 07/28/16 at 06:59; Status DC Fentanyl Citrate (Fentanyl 2ml Vial) 25 mcg PRN Q5MIN PRN IV MILD PAIN; Start 07/27/16 at 07:00; Stop 07/28/16 at 06:59; Status DC Fentanyl Citrate (Fentanyl 2ml Vial) 50 mcg PRN Q5MIN PRN IV MODERATE PAIN; Start 07/27/16 at 07:00; Stop 07/28/16 at 06:59; Status DC Morphine Sulfate 1 mg 1 mg PRN Q10MIN PRN IV SEVERE PAIN; Start 07/27/16 at 07: 00; Stop 07/28/16 at 06:59; Status DC Lactated Ringer's (Iv Lactated Ringers) 1,000 ml @ 30 mls/hr Q24H IV Last administered on 07/26/16 17:25; Start 07/27/16 at 07:00; Stop 07/27/16 at 18:59 ; Status DC Lidocaine HCl 2 ml PRN 1X PRN ID PRIOR TO IV START; Start 07/27/16 at 07:00; Stop 07/28/16 at 06:59; Status DC Hydromorphone HCl (Dilaudid) 0.5 mg PRN Q10MIN PRN IV SEV PAIN, Second choice; Start 07/27/16 at 07:00; Stop 07/28/16 at 06:59; Status DC Prochlorperazine Edisylate 5 mg 5 mg PACU PRN PRN IV NAUSEA, MRX1; Start at 07:00; Stop 07/28/16 at 06:59; Status DC Heparin Sodium (Porcine) 58686 unit/Dextrose 512.5 ml @ 0 mls/hr Q0M ONCE IV Last administered on 07/26/16 19:40; Start 07/26/16 at 18:30; Stop 07/26/16 at 18:31; Status DC Amiodarone HCl 150 mg/Dextrose 103 ml @ 618 mls/hr 1X ONCE IV Last administered on 07/26/16 19:25; Start 07/26/16 at 19:15; Stop 07/26/16 at 19:24 ; Status DC Norepinephrine Bitartrate 8 mg/ Sodium Chloride 258 ml @ 1.93 mls/hr CONT PRN IV SEE I/O RECORD Last administered on 08/03/16 11:12; Start 07/26/16 at 19:15 ; Stop 08/09/16 at 18:00; Status DC Amiodarone HCl 900 mg/Dextrose 518 ml @ 0 mls/hr CONT PRN IV PER PROTOCOL; Start 07/26/16 at 19:15; Stop 07/27/16 at 12:11; Status DC Milrinone Lactate/ Dextrose 100 ml @ 0 mls/hr CONT PRN IV SEE I/O RECORD Last administered on 07/26/16 20:03; Start 07/26/16 at 19:45; Stop 07/29/16 at 13:51 ; Status DC Calcium Chloride/ Sodium Chloride (Iv Sodium Chloride 0.9% 100ml) 120 ml @ 240 mls/hr 1X ONCE IV Last administered on 07/26/16 21:04; Start 07/26/16 at 21: 30; Stop 07/26/16 at 21:59; Status DC Digoxin 500 mcg 500 mcg 1X ONCE IV Last administered on 07/26/16 21:55; Start 07/26/16 at 21:45; Stop 07/26/16 at 21:46; Status DC Cefazolin Sodium/ Sodium Chloride (Ancef/Iv Sodium Chloride 0.9% 500ml Bag) 500 ml @ 500 mls/hr 1X PERIOP ONCE IRR Last administered on 07/27/16 14:37; Start 07/27/16 at 10:00; Stop 07/27/16 at 10:59; Status DC Vancomycin HCl (Vanco) 10 gm 1X ONCE CEMENT Last administered on 07/27/16 14: 37; Start 07/27/16 at 12:30; Stop 07/27/16 at 12:31; Status DC Rocuronium [place] (Zemuron) 100 mg STK-MED ONCE .ROUTE ; Start 07/27/16 at 12: 32; Stop 07/27/16 at 12:33; Status DC Lorazepam (Ativan) 2 mg STK-MED ONCE .ROUTE ; Start 07/27/16 at 14:13; Stop 04/02 at 14:14; Status DC Phenylephrine HCl 1 mg 1 mg STK-MED ONCE IV ; Start 07/27/16 at 14:18; Stop 04/02 at 14:19; Status DC Albumin Human (Plasmanate) 250 ml @ 62.5 mls/hr 1X ONCE IV Last administered on 07/27/16 17:52; Start 07/27/16 at 17:15; Stop 07/27/16 at 21:14; Status DC Sodium Bicarbonate 50 meq STK-MED ONCE .ROUTE ; Start 07/27/16 at 17:39; Stop at 17:40; Status DC Sodium Bicarbonate 50 meq 1X ONCE IV Last administered on 07/27/16 17:51; Start 07/27/16 at 18:00; Stop 07/27/16 at 18:01; Status DC Sodium Bicarbonate 50 meq 1X ONCE IV Last administered on 07/27/16 17:52; Start 07/27/16 at 18:00; Stop 07/27/16 at 18:01; Status DC Fentanyl Citrate (Fentanyl 2ml Vial) 25 mcg PRN Q5MIN PRN IV MILD PAIN; Start 07/28/16 at 07:00; Stop 07/29/16 at 06:59; Status DC Fentanyl Citrate (Fentanyl 2ml Vial) 50 mcg PRN Q5MIN PRN IV MODERATE PAIN; Start 07/28/16 at 07:00; Stop 07/29/16 at 06:59; Status DC Morphine Sulfate 1 mg 1 mg PRN Q10MIN PRN IV SEVERE PAIN; Start 07/28/16 at 07: 00; Stop 07/29/16 at 06:59; Status DC Lactated Ringer's (Iv Lactated Ringers) 1,000 ml @ 30 mls/hr Q24H IV Last administered on 07/28/16 06:49; Start 07/28/16 at 06:49; Stop 07/28/16 at 18:48 ; Status DC Lidocaine HCl 2 ml PRN 1X PRN ID PRIOR TO IV START; Start 07/28/16 at 07:00; Stop 07/29/16 at 06:59; Status DC Hydromorphone HCl (Dilaudid) 0.5 mg PRN Q10MIN PRN IV SEV PAIN, Second choice; Start 07/28/16 at 07:00; Stop 07/29/16 at 06:59; Status DC Rocuronium [place] 50 mg 50 mg STK-MED ONCE .ROUTE ; Start 07/28/16 at 07:27; Stop 07/28/16 at 07:28; Status DC Cefazolin Sodium/ Sodium Chloride (Ancef/Iv Sodium Chloride 0.9% 500ml Bag) 500 ml @ 500 mls/hr 1X PERIOP ONCE IRR Last administered on 07/28/16 09:25; Start 07/28/16 at 08:00; Stop 07/28/16 at 08:59; Status DC Cellulose 1 each STK-MED ONCE .ROUTE ; Start 07/28/16 at 07:42; Stop 07/28/16 at 07:43; Status DC Bupivacaine HCl/ Epinephrine Bitart 50 ml 50 ml STK-MED ONCE .ROUTE ; Start at 07:42; Stop 07/28/16 at 07:43; Status DC Heparin Sodium (Porcine)/Sodium Chloride (Heparin Sodium/ Iv Sodium Chloride 0.9 % 500ml Bag) 505 ml @ 505 mls/hr 1X PERIOP ONCE IRR Last administered on 07/28 10:19; Start 07/28/16 at 08:15; Stop 07/28/16 at 09:14; Status DC Lorazepam 2 mg 2 mg STK-MED ONCE .ROUTE ; Start 07/28/16 at 08:29; Stop at 08:30; Status DC Magnesium Sulfate/ Dextrose (Magnesium Sulfate PREMIX 1GM) 100 ml @ 100 mls/hr 1X ONCE IV Last administered on 07/28/16t 13:09; Start 07/28/16 at 09:00; Stop 07/28/16 at 09:59; Status DC Vasopressin (Vasostrict) 20 unit STK-MED ONCE .ROUTE ; Start 07/28/16 at 09:03; Stop 07/28/16 at 09:04; Status DC Epinephrine HCl (Epinephrine Syringe) 1 mg STK-MED ONCE .ROUTE ; Start 07/28/16 at 09:09; Stop 07/28/16 at 09:10; Status DC Calcium Chloride 1,000 mg STK-MED ONCE IV ; Start 07/28/16 at 09:09; Stop at 09:10; Status DC Phenylephrine HCl 1 mg STK-MED ONCE IV ; Start 07/28/16 at 09:54; Stop 07/28/16 at 09:55; Status DC Sevoflurane 60 ml 60 ml STK-MED ONCE IH ; Start 07/28/16 at 09:54; Stop at 09:55; Status DC Epinephrine HCl/ Sodium Chloride (Adrenalin/Iv Sodium Chloride 0.9% 250ml) 254 ml @ 3.81 mls/hr 1X ONCE IV ; Start 07/28/16 at 10:00; Stop 07/29/16 at 19:10 ; Status DC Heparin Sodium (Porcine) 97610 unit 10,000 unit STK-MED ONCE .ROUTE ; Start at 09:57; Stop 07/28/16 at 09:58; Status DC Albumin Human (Plasmanate) 500 ml @ As Directed STK-MED ONCE IV ; Start at 09:57; Stop 07/28/16 at 09:58; Status DC Iohexol 100 ml 100 ml STK-MED ONCE .ROUTE ; Start 07/28/16 at 10:39; Stop at 10:40; Status DC Heparin Sodium/ Sodium Chloride 500 ml @ As Directed STK-MED ONCE .ROUTE ; Start 07/28/16 at 10:39; Stop 07/28/16 at 10:40; Status DC Iohexol 100 ml 100 ml STK-MED ONCE .ROUTE ; Start 07/28/16 at 10:43; Stop at 10:44; Status DC Heparin Sodium/ Sodium Chloride 500 ml @ As Directed STK-MED ONCE .ROUTE ; Start 07/28/16 at 11:21; Stop 07/28/16 at 11:22; Status DC Albuterol Sulfate (Ventolin Neb Soln) 2.5 mg RTQID NEB Last administered on 08:46; Start 07/28/16 at 12:00; Stop 07/30/16 at 17:05; Status DC Furosemide (Lasix) 40 mg 1X ONCE IVP Last administered on 07/28/16 13:16; Start 07/28/16 at 13:15; Stop 07/28/16 at 13:16; Status DC Furosemide (Lasix) 40 mg 1X ONCE IVP Last administered on 07/28/16 13:19; Start 07/28/16 at 14:00; Stop 07/28/16 at 14:01; Status DC Heparin Sodium/ Sodium Chloride 1000 unit 1,000 unit CONT PRN IV ART LINE FLUSH Last administered on 08/02/16 06:47; Start 07/28/16 at 14:45; Stop at 13:39; Status DC Albumin Human 250 ml @ 62.5 mls/hr PRN Q1HR PRN IV SEE COMMENTS Last administered on 08/02/16 16:12; Start 07/28/16 at 15:15; Stop 08/09/16 at 08:10 ; Status DC Furosemide 100 mg/ Sodium Chloride 100 ml @ 5 mls/hr CONT PRN IV SEE I/O RECORD Last administered on 07/30/16 09:50; Start 07/28/16 at 15:30; Stop 07/31 at 13:31; Status DC Potassium Chloride 50 ml @ 50 mls/hr Q1H IV Last administered on 07/28/16 19: 39; Start 07/28/16 at 18:30; Stop 07/28/16 at 20:29; Status DC Potassium Chloride (KCl Premix 20meq) 50 ml @ 50 mls/hr Q1H IV Last administered on 07/29/16 09:36; Start 07/29/16 at 07:00; Stop 07/29/16 at 08:59 ; Status DC Lorazepam (Ativan) 2 mg STK-MED ONCE .ROUTE ; Start 07/28/16 at 08:30; Stop at 08:16; Status DC Aspirin (Arti Aspirin) 325 mg DAILYWBKFT PO Last administered on 08/10/16 09: 46; Start 07/30/16 at 08:00 Docusate Sodium 100 mg 100 mg DAILY PO Last administered on 07/31/16 07:59; Start 07/30/16 at 09:00; Stop 07/31/16 at 11:00; Status DC Dobutamine HCl/ Dextrose 250 ml @ 12.1 mls/hr CONT PRN IV PER PROTOCOL Last administered on 08/02/16 18:03; Start 07/29/16 at 13:30; Stop 08/08/16 at 13:39 ; Status DC Potassium Chloride 50 ml @ 50 mls/hr Q1H IV Last administered on 07/29/16 22: 39; Start 07/29/16 at 20:00; Stop 07/29/16 at 22:59; Status DC Potassium Chloride (KCl Premix 20meq) 50 ml @ 50 mls/hr Q1H IV Last administered on 07/30/16 09:19; Start 07/30/16 at 07:00; Stop 07/30/16 at 08:59 ; Status DC Ipratropium [place] (Atrovent) 0.5 mg RTQID NEB Last administered on 08/10/16 15:34; Start 07/30/16 at 12:30 Digoxin 500 mcg 500 mcg 1X ONCE IV Last administered on 07/30/16 13:01; Start 07/30/16 at 12:15; Stop 07/30/16 at 12:19; Status DC Dexmedetomidine HCl/Sodium Chloride (Precedex/Iv Sodium Chloride 0.9% 50ml) 50 ml @ 0 mls/hr CONT PRN IV PER PROTOCOL Last administered on 08/04/16 05:20; Start 07/30/16 at 13:30; Stop 08/08/16 at 14:02; Status DC Atropine Sulfate 0.5 mg PRN Q5MIN PRN IV SEE COMMENTS; Start 07/30/16 at 13:30 Amiodarone HCl (Cordarone) 400 mg ONCE ONCE PO Last administered on 07/30/16 15:01; Start 07/30/16 at 13:30; Stop 07/30/16 at 13:46; Status DC Amiodarone HCl (Cordarone) 400 mg BID PO Last administered on 08/08/16 10:54; Start 07/30/16 at 21:00; Stop 08/08/16 at 14:02; Status DC Digoxin 125 mcg 125 mcg DAILY IV Last administered on 08/02/16 08:56; Start at 09:00; Stop 08/03/16 at 14:27; Status DC Albumin Human (Albuminar) 50 ml @ 50 mls/hr 1X ONCE IV Last administered on 16:26; Start 07/30/16 at 16:30; Stop 07/30/16 at 17:29; Status DC Ibuprofen (Motrin) 200 mg PRN Q6HRS PRN PO fever; Start 07/30/16 at 19:45; Stop 08/01/16 at 12:22; Status DC Metoprolol Tartrate (Lopressor) 2.5 mg 1X ONCE IVP Last administered on 20:23; Start 07/30/16 at 20:30; Stop 07/30/16 at 20:31; Status DC Metoprolol Tartrate 5 mg 5 mg PRN Q2HR PRN IVP HYPERTENSION Last administered on 08/04/16 22:09; Start 07/30/16 at 22:30; Stop 08/09/16 at 18:00; Status DC Potassium Chloride (KCl Premix 20meq) 50 ml @ 50 mls/hr Q1H IV Last administered on 07/31/16 09:04; Start 07/31/16 at 07:00; Stop 07/31/16 at 08:59 ; Status DC Metoprolol Tartrate (Lopressor) 12.5 mg BID NG Last administered on 08/09/16 21:42; Start 07/31/16 at 10:00 Docusate Sodium (Colace Solution) 100 mg PRN DAILY PRN PO constipation Last administered on 08/01/16 08:40; Start 07/31/16 at 11:00; Stop 08/08/16 at 13:39 ; Status DC Hydralazine HCl (Apresoline) 10 mg PRN Q2HRS PRN IVP ELEVATED BP, SEE COMMENTS Last administered on 08/01/16 16:35; Start 07/31/16 at 13:30 Fentanyl Citrate (Fentanyl 2ml Vial) 50 mcg PRN Q2HR PRN IV PAIN Last administered on 08/02/16 12:57; Start 07/31/16 at 13:45 Furosemide (Lasix) 40 mg TID IVP Last administered on 08/02/16 05:49; Start at 14:00; Stop 08/02/16 at 15:33; Status DC Alteplase, Recombinant (Cathflo) 2 mg 1X ONCE INT CAT Last administered on 23:34; Start 07/31/16 at 23:15; Stop 07/31/16 at 23:16; Status DC Haloperidol Lactate (Haldol) 5 mg PRN Q6HRS PRN IVP MODERATE AGITATION Last administered on 08/07/16 07:26; Start 08/01/16 at 21:00 Haloperidol Lactate 10 mg 10 mg PRN Q6HRS PRN IVP SEVERE AGITATION Last administered on 08/07/16 21:04; Start 08/01/16 at 23:45 Propofol 100 ml @ 0 mls/hr CONT PRN IV SEE I/O RECORD Last administered on 08/02 11:43; Start 08/02/16 at 02:45; Stop 08/08/16 at 14:02; Status DC Piperacillin Sod/ Tazobactam Sod/ Sodium Chloride (Zosyn/Iv Sodium Chloride 0.9 % 50ml) 50 ml @ 100 mls/hr Q6HRS IV Last administered on 08/02/16 13:17; Start 08/02/16 at 12:00; Stop 08/02/16 at 15:43; Status DC Vancomycin HCl 1 each 1 each PRN DAILY PRN MC SEE COMMENTS Last administered on 08/02/16 13:20; Start 08/02/16 at 11:45; Stop 08/03/16 at 15:24; Status DC Vancomycin HCl 2 gm/Sodium Chloride 500 ml @ 250 mls/hr 1X ONCE IV Last administered on 08/02/16 11:52; Start 08/02/16 at 12:00; Stop 08/02/16 at 13:59 ; Status DC Sodium Chloride (Iv Sodium Chloride 0.9% 500ml Bag) 500 ml @ 500 mls/hr 1X ONCE IV Last administered on 08/02/16 12:39; Start 08/02/16 at 12:45; Stop at 13:44; Status DC Vecuronium [place] (Norcuron Bolus) 10 mg 1X STAT IV Last administered on 08/02 13:34; Start 08/02/16 at 13:17; Stop 08/02/16 at 13:23; Status DC Vancomycin HCl 1 each 1 each 1X ONCE MC ; Start 08/03/16 at 23:30; Stop at 23:30; Status DC Vancomycin HCl 1.25 gm/Sodium Chloride 250 ml @ 167 mls/hr Q12H IV Last administered on 08/03/16 00:33; Start 08/03/16 at 00:00; Stop 08/03/16 at 11:07 ; Status DC Fentanyl Citrate (Fentanyl 600 Mcg/30 ml REACTOR 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 OPERATOR) 30 ml @ 0 mls/hr CONT PRN PRN IV PROTOCOL Last administered on 08/06/16 02:18; Start 08/02/16 at 13:30; Stop at 13:39; Status DC Naloxone HCl 0.4 mg 0.4 mg PRN Q2MIN PRN IV SEE INSTRUCTIONS; Start 08/02/16 at 13:30 Micafungin Sodium 100 mg/Dextrose 100 ml @ 100 mls/hr Q24H IV Last administered on 08/09/16 16:27; Start 08/02/16 at 17:00 Lactated Ringer's 1,000 ml @ 1,000 mls/hr 1X ONCE IV Last administered on 15:45; Start 08/02/16 at 15:45; Stop 08/02/16 at 16:44; Status DC Piperacillin Sod/ Tazobactam Sod 4.5 gm/Sodium Chloride 100 ml @ 200 mls/hr Q6HRS IV Last administered on 08/03/16 12:00; Start 08/02/16 at 18:00; Stop at 14:02; Status DC Albumin Human (Plasmanate) 500 ml @ 125 mls/hr 1X ONCE IV Last administered on 08/02/16 20:37; Start 08/02/16 at 20:30; Stop 08/03/16 at 00:29; Status DC Furosemide (Lasix) 40 mg 1X ONCE IVP Last administered on 08/03/16 00:16; Start 08/02/16 at 20:30; Stop 08/02/16 at 20:31; Status DC Acetaminophen (Tylenol) 650 mg 1X ONCE NG Last administered on 08/03/16 02:03 ; Start 08/03/16 at 02:15; Stop 08/03/16 at 02:16; Status DC Ketorolac Tromethamine 15 mg 15 mg 1X ONCE IV Last administered on 08/03/16 02:03; Start 08/03/16 at 02:15; Stop 08/03/16 at 02:16; Status DC Lactated Ringer's (Iv Lactated Ringers) 500 ml @ 500 mls/hr 1X ONCE IV Last administered on 08/03/16 10:15; Start 08/03/16 at 10:15; Stop 08/03/16 at 11:14 ; Status DC Sodium Bicarbonate 50 meq 1X ONCE IV Last administered on 08/03/16 10:44; Start 08/03/16 at 10:15; Stop 08/03/16 at 10:20; Status DC Calcium Gluconate 1000 mg 1,000 mg 1X ONCE IVP ; Start 08/03/16 at 12:15; Stop 08/03/16 at 12:16; Status DC Sodium Bicarbonate 150 meq/Dextrose/ Sodium Chloride 1,150 ml @ 100 mls/hr [id number] PRN IV .; Start 08/03/16 at 12:30; Stop 08/03/16 at 13:03; Status DC Magnesium Sulfate/ Dextrose 50 ml @ 25 mls/hr PRN DAILY PRN IV for Mag < 1.7 on am labs; Start 08/03/16 at 12:30; Stop 08/09/16 at 18:00; Status DC Sodium Bicarbonate 150 meq/Dextrose 1,150 ml @ 100 mls/hr [id number] IV Last administered on 08/04/16 04:31; Start 08/03/16 at 13:30; Stop 08/04/16 at 08:31 ; Status DC Calcium Chloride 2000 mg/Sodium Chloride 120 ml @ 240 mls/hr 1X ONCE IV Last administered on 08/03/16 13:30; Start 08/03/16 at 13:30; Stop 08/03/16 at 13:59 ; Status DC Piperacillin Sod/ Tazobactam Sod/ Sodium Chloride (Zosyn/Iv Sodium Chloride 0.9 % 50ml) 50 ml @ 100 mls/hr Q6HRS IV Last administered on 08/08/16 12:09; Start 08/03/16 at 18:00; Stop 08/08/16 at 15:35; Status DC Heparin Sodium (Porcine) (Heparin Sodium) 10,000 unit STK-MED ONCE .ROUTE ; Start 08/03/16 at 14:31; Stop 08/03/16 at 14:32; Status DC Lidocaine/Sodium Bicarbonate (Buffered Lidocaine 1%) 20 ml STK-MED ONCE IJ ; Start 08/03/16 at 14:31; Stop 08/03/16 at 14:32; Status DC Heparin Sodium/ Sodium Chloride 60 unit 1X ONCE IV Last administered on 16:17; Start 08/03/16 at 14:45; Stop 08/03/16 at 14:46; Status DC Heparin Sodium (Porcine) (Heparin Sodium) 2,500 unit 1X ONCE INT CAT Last administered on 08/03/16 16:16; Start 08/03/16 at 14:45; Stop 08/03/16 at 14:46 ; Status DC Lidocaine/Sodium Bicarbonate (Buffered Lidocaine 1%) 3 ml 1X ONCE IJ Last administered on 08/03/16 16:16; Start 08/03/16 at 14:45; Stop 08/03/16 at 14:46 ; Status DC Fentanyl Citrate (Fentanyl 2ml Vial) 25 mcg PRN Q5MIN PRN IV MILD PAIN; Start 08/04/16 at 07:00; Stop 08/05/16 at 06:59; Status DC Fentanyl Citrate (Fentanyl 2ml Vial) 50 mcg PRN Q5MIN PRN IV MODERATE PAIN; Start 08/04/16 at 07:00; Stop 08/05/16 at 06:59; Status DC Morphine Sulfate 1 mg 1 mg PRN Q10MIN PRN IV SEVERE PAIN; Start 08/04/16 at 07: 00; Stop 08/05/16 at 06:59; Status DC Lactated Ringer's (Iv Lactated Ringers) 1,000 ml @ 0 mls/hr Q0M IV ; Start at 07:00; Stop 08/04/16 at 18:59; Status DC Lidocaine HCl 2 ml PRN 1X PRN ID PRIOR TO IV START; Start 08/04/16 at 07:00; Stop 08/05/16 at 06:59; Status DC Hydromorphone HCl (Dilaudid) 0.5 mg PRN Q10MIN PRN IV SEV PAIN, Second choice; Start 08/04/16 at 07:00; Stop 08/05/16 at 06:59; Status DC Famotidine (Pepcid) 20 mg DAILY IVP Last administered on 08/05/16 07:43; Start 08/04/16 at 09:00; Stop 08/06/16 at 07:05; Status DC Insulin Aspart (Novolog) 0-7 UNITS TIDWMEALS SQ Last administered on 08/07/16 16:37; Start 08/03/16 at 19:00 Dextrose 12.5 gm 12.5 gm PRN Q15MIN PRN IV SEE COMMENTS; Start 08/03/16 at 18: 30 Sodium Chloride 1,000 ml @ 1,000 mls/hr Q1H PRN IV hypotension; Start 08/03/16 at 18:33; Stop 08/04/16 at 00:32; Status DC Sodium Chloride (Iv Sodium Chloride 0.9% 1000ml Bag) 1,000 ml @ 400 mls/hr Q2H30M PRN IV PATENCY; Start 08/03/16 at 18:33; Stop 08/04/16 at 06:32; Status DC Info 1 each 1 each PRN DAILY PRN MC SEE COMMENTS; Start 08/03/16 at 18:45; Stop 08/06/16 at 09:01; Status DC Sodium Chloride 1,000 ml @ 1,000 mls/hr Q1H PRN IV hypotension; Start 08/04/16 at 07:44; Stop 08/04/16 at 13:43; Status DC Albumin Human (Albuminar) 200 ml @ 200 mls/hr 1X PRN PRN IV Hypotension Last administered on 08/04/16 08:48; Start 08/04/16 at 07:45; Stop 08/04/16 at 13:44 ; Status DC Diphenhydramine HCl (Benadryl) 25 mg 1X PRN PRN IV ITCHING; Start 08/04/16 at 07:45; Stop 08/05/16 at 07:44; Status DC Diphenhydramine HCl (Benadryl) 25 mg 1X PRN PRN IV ITCHING; Start 08/04/16 at 07:45; Stop 08/05/16 at 07:44; Status DC Sodium Chloride (Normal Saline Flush) 10 ml 1X PRN PRN IV AP catheter pack; Start 08/04/16 at 07:45; Stop 08/05/16 at 07:44; Status DC Sodium Chloride 10 ml 10 ml 1X PRN PRN IV FLY MAKER catheter pack; Start 08/04/16 at 07:45; Stop 08/05/16 at 07:44; Status DC Sodium Chloride (Iv Sodium Chloride 0.9% 1000ml Bag) 1,000 ml @ 400 mls/hr Q2H30M PRN IV PATENCY; Start 08/04/16 at 07:44; Stop 08/04/16 at 19:43; Status DC Info (PHARMACY MONITORING -- do not chart) 1 each PRN DAILY PRN MC SEE COMMENTS ; Start 08/04/16 at 07:45; Stop 08/06/16 at 09:02; Status DC Heparin Sodium (Porcine) 5,000 unit Q12HR SQ Last administered on 08/10/16 09: 48; Start 08/04/16 at 21:00 Sevelamer Carbonate 2.4 gm 2.4 gm BID FT Last administered on 08/09/16 21:42; Start 08/05/16 at 10:00; Stop 08/10/16 at 12:38; Status DC Sodium Chloride 1,000 ml @ 1,000 mls/hr Q1H PRN IV hypotension; Start 08/05/16 at 12:28; Stop 08/05/16 at 18:27; Status DC Albumin Human (Albuminar) 200 ml @ 200 mls/hr 1X PRN PRN IV Hypotension; Start 08/05/16 at 12:30; Stop 08/05/16 at 18:29; Status DC Sodium Chloride (Normal Saline Flush) 10 ml 1X PRN PRN IV AP catheter pack; Start 08/05/16 at 12:30; Stop 08/06/16 at 12:29; Status DC Sodium Chloride 10 ml 10 ml 1X PRN PRN IV FLY MAKER catheter pack; Start 08/05/16 at 12:30; Stop 08/06/16 at 12:29; Status DC Sodium Chloride (Iv Sodium Chloride 0.9% 1000ml Bag) 1,000 ml @ 400 mls/hr Q2H30M PRN IV PATENCY; Start 08/05/16 at 12:28; Stop 08/06/16 at 00:27; Status DC Info 1 each 1 each PRN DAILY PRN MC SEE COMMENTS; Start 08/05/16 at 12:30; Stop 08/08/16 at 07:15; Status DC Propofol (Diprivan) 20 ml @ As Directed STK-MED ONCE IV ; Start 08/05/16 at 13: 01; Stop 08/05/16 at 13:02; Status DC Rocuronium [place] (Zemuron) 50 mg STK-MED ONCE .ROUTE ; Start 08/05/16 at 13:01 ; Stop 08/05/16 at 13:02; Status DC Dexamethasone Sodium Phosphate (Decadron) 20 mg STK-MED ONCE .ROUTE ; Start at 13:05; Stop 08/05/16 at 13:06; Status DC Famotidine (Pepcid) 20 mg STK-MED ONCE .ROUTE ; Start 08/05/16 at 13:05; Stop at 13:06; Status DC Ondansetron HCl (Zofran) 4 mg STK-MED ONCE .ROUTE ; Start 08/05/16 at 13:05; Stop 08/05/16 at 13:06; Status DC Midazolam HCl (Versed) 2 mg STK-MED ONCE .ROUTE ; Start 08/05/16 at 13:13; Stop 08/05/16 at 13:14; Status DC Vasopressin (Vasostrict) 20 unit STK-MED ONCE .ROUTE ; Start 08/05/16 at 13:58; Stop 08/05/16 at 13:59; Status DC Sodium Chloride (Sodium Chloride) 50 ml STK-MED ONCE IJ ; Start 08/05/16 at 13: 58; Stop 08/05/16 at 13:59; Status DC Sevoflurane (Ultane) 60 ml STK-MED ONCE IH ; Start 08/05/16 at 14:29; Stop 08/05 at 14:30; Status DC Alprazolam (Xanax) 0.25 mg PRN Q8HRS PRN PEG ANXIETY / AGITATION Last administered on 08/09/16 07:46; Start 08/05/16 at 14:45 Lidocaine HCl (Xylocaine-Mpf 1% Vial) 5 ml STK-MED ONCE INJ Last administered on 08/05/16 14:55; Start 08/05/16 at 14:55; Stop 08/05/16 at 15:11; Status DC Pantoprazole Sodium 40 mg 40 mg DAILYAC IVP Last administered on 08/10/16 09: 48; Start 08/06/16 at 07:30 Linezolid 300 ml @ 300 mls/hr Q12HR IV Last administered on 08/09/16 07:43; Start 08/06/16 at 11:30; Stop 08/09/16 at 07:57; Status DC Sodium Chloride 1,000 ml @ 1,000 mls/hr Q1H PRN IV hypotension; Start 08/06/16 at 13:17; Stop 08/06/16 at 19:16; Status DC Sodium Chloride (Iv Sodium Chloride 0.9% 1000ml Bag) 1,000 ml @ 400 mls/hr Q2H30M PRN IV PATENCY; Start 08/06/16 at 13:17; Stop 08/07/16 at 01:16; Status DC Info (PHARMACY MONITORING -- do not chart) 1 each PRN DAILY PRN MC SEE COMMENTS ; Start 08/06/16 at 13:30; Status UNV Darbepoetin Nick (Aranesp) 60 mcg [id number] SQ Last administered on 08/07/16 21 :04; Start 08/07/16 at 21:00 Zolpidem Tartrate 5 mg 5 mg HS PO Last administered on 08/08/16 21:15; Start 08/07/16 at 21:00 Sodium Chloride 1,000 ml @ 1,000 mls/hr Q1H PRN IV hypotension; Start 08/08/16 at 07:01; Stop 08/08/16 at 13:00; Status DC Albumin Human (Albuminar) 200 ml @ 200 mls/hr 1X PRN PRN IV Hypotension Last administered on 08/08/16 09:43; Start 08/08/16 at 07:15; Stop 08/08/16 at 13:14 ; Status DC Acetaminophen (Tylenol) 500 mg 1X PRN PRN PO MILD PAIN / TEMP; Start 08/08/16 at 07:15; Stop 08/09/16 at 07:14; Status DC Diphenhydramine HCl (Benadryl) 25 mg 1X PRN PRN IV ITCHING; Start 08/08/16 at 07:15; Stop 08/09/16 at 07:14; Status DC Diphenhydramine HCl (Benadryl) 25 mg 1X PRN PRN IV ITCHING; Start 08/08/16 at 07:15; Stop 08/09/16 at 07:14; Status DC Labetalol HCl (Normodyne) 10 mg PRN Q1HR PRN IVP SBP > 180; Start 08/08/16 at 07:15; Stop 08/09/16 at 07:14; Status DC Clonidine HCl 0.1 mg 0.1 mg 1X PRN PRN PO SBP > 180; Start 08/08/16 at 07:15; Stop 08/09/16 at 07:14; Status DC Sodium Chloride (Iv Sodium Chloride 0.9% 1000ml Bag) 1,000 ml @ 400 mls/hr Q2H30M PRN IV PATENCY; Start 08/08/16 at 07:01; Stop 08/08/16 at 19:00; Status DC Info (PHARMACY MONITORING -- do not chart) 1 each PRN DAILY PRN MC SEE COMMENTS ; Start 08/08/16 at 07:15 Amiodarone HCl 400 mg 400 mg DAILY PO Last administered on 08/09/16 07:45; Start 08/09/16 at 09:00 Piperacillin Sod/ Tazobactam Sod/ Sodium Chloride (Zosyn/Iv Sodium Chloride 0.9 % 50ml) 50 ml @ 100 mls/hr Q8HRS IV Last administered on 08/10/16 06:08; Start 08/08/16 at 22:00 Linezolid (Zyvox) 600 mg BID PEG Last administered on 08/10/16 09:47; Start at 21:00 Lactobacillus Acidophilus (Bacid, Rafaela-Bid) 1 tab TIDWMEALS PO Last administered on 08/09/16 16:26; Start 08/09/16 at 08:00 Calcium Carbonate/ Glycine (Tums) 1,000 mg TID PO Last administered on 21:40; Start 08/09/16 at 09:00 Heparin Sodium (Porcine) (Heparin Sodium) 10,000 unit STK-MED ONCE .ROUTE ; Start 08/09/16 at 14:49; Stop 08/09/16 at 14:50; Status DC Lidocaine/ Epinephrine 20 ml 20 ml STK-MED ONCE .ROUTE ; Start 08/09/16 at 14:49 ; Stop 08/09/16 at 14:50; Status DC Heparin Sodium/ Sodium Chloride 500 ml @ As Directed STK-MED ONCE .ROUTE ; Start 08/09/16 at 14:49; Stop 08/09/16 at 14:50; Status DC Heparin Sodium/ Sodium Chloride 1,000 unit 1X ONCE IART Last administered on 15:44; Start 08/09/16 at 15:30; Stop 08/09/16 at 15:31; Status DC Heparin Sodium (Porcine) (Heparin Sodium) 2,600 unit 1X ONCE INT CAT Last administered on 08/09/16 15:44; Start 08/09/16 at 15:30; Stop 08/09/16 at 15:31 ; Status DC Lidocaine/ Epinephrine (Xylocaine 1%-Epi 1:100,000) 20 ml 1X ONCE INJ Last administered on 08/09/16 15:44; Start 08/09/16 at 15:30; Stop 08/09/16 at 15:31 ; Status DC Sevelamer Carbonate (Renvela) 7.2 gm DAILY PO ; Start 08/10/16 at 10:30 Active Scripts Active Reported Amlodipine Besylate 5 Mg Tablet 5 Mg PO DAILY Pradaxa (Dabigatran Etexilate Mesylate) 150 Mg Capsule 1 Cap PO BID Metoprolol Succinate ( Xl ) (Metoprolol Succinate) 100 Mg Tab.er.24h 1 Tab PO DAILY Vitals/I & O Vital Sign - Last 24 Hours 08/09/16 08/09/16 08/09/16 08/09/16 16:00 16:15 16:15 17:00 Temp 98.1 98.1 Pulse 75 Resp 30 B/P 118/72 Pulse Ox 100 100 O2 Delivery Ventilator Trach Collar Tracheal Collar Tracheal Collar O2 Flow Rate 10.0 08/09/16 08/09/16 08/09/16 08/09/16 17:00 18:03 18:54 19:00 Pulse 80 77 80 Resp 27 22 26 B/P 107/65 128/66 126/65 Pulse Ox 100 100 100 100 O2 Delivery Tracheal Collar Tracheal Collar Tracheal Collar Tracheal Collar O2 Flow Rate 10.0 08/09/16 08/09/16 08/09/16 08/09/16 20:00 20:00 21:00 21:42 Temp 97.6 97.6 Pulse 80 84 87 Resp 20 19 B/P 119/64 125/77 125/77 Pulse Ox 100 100 O2 Delivery Trach Collar Tracheal Collar Tracheal Collar 08/09/16 08/09/16 08/09/16 08/09/16 22:00 22:55 23:00 23:59 Pulse 84 78 Resp 21 22 B/P 92/64 91/56 Pulse Ox 100 100 100 O2 Delivery Ventilator Ventilator Ventilator Mechanical Ventilator 08/09/16 08/10/16 08/10/16 08/10/16 23:59 01:00 01:12 02:00 Temp 97.7 97.7 Pulse 77 77 69 Resp 24 21 19 B/P 103/59 102/63 110/66 Pulse Ox 100 100 100 100 O2 Delivery Ventilator Ventilator Ventilator Ventilator 08/10/16 08/10/16 08/10/16 08/10/16 03:00 03:08 04:00 04:00 Temp 97.6 97.6 Pulse 80 85 Resp 18 27 B/P 101/63 116/74 Pulse Ox 100 100 100 O2 Delivery Ventilator Ventilator Mechanical Ventilator Ventilator 08/10/16 08/10/16 08/10/16 08/10/16 05:00 05:12 06:00 07:00 Pulse 76 82 74 Resp 18 22 24 B/P 105/64 115/69 129/74 Pulse Ox 99 100 100 100 O2 Delivery Ventilator Ventilator Ventilator Ventilator 08/10/16 08/10/16 08/10/16 08/10/16 08:00 08:00 08:35 09:00 Temp 97.9 97.9 Pulse 76 73 Resp 19 15 B/P 111/63 110/63 Pulse Ox 99 97 100 O2 Delivery Trach Collar Ventilator Ventilator Ventilator 08/10/16 08/10/16 08/10/16 08/10/16 10:00 10:19 11:00 12:00 Pulse 74 71 Resp 16 15 B/P 118/69 107/64 Pulse Ox 100 99 100 O2 Delivery Ventilator Ventilator Ventilator Trach Collar 08/10/16 08/10/16 08/10/16 08/10/16 12:00 12:34 13:00 14:00 Temp 98.0 98.0 Pulse 80 84 87 Resp 20 24 20 B/P 114/68 119/65 115/72 Pulse Ox 98 100 100 100 O2 Delivery Ventilator Tracheal Collar Tracheal Collar Tracheal Collar O2 Flow Rate 10.0 08/10/16 15:36 Pulse Ox 100 O2 Delivery Tracheal Collar O2 Flow Rate 10.0 Intake and Output 08/09/16 08/09/16 08/10/16 15:00 23:00 07:00 Intake Total 410 ml 735 ml 712 ml Output Total 85 ml 250 ml 225 ml Balance 325 ml 485 ml 487 ml AMELIA PEARSON III DO Aug 10, 2016 15:41
--- NOTE | 2016-08-10 15:54 | CONS ---
DATE OF CONSULTATION: 08/03/2016 PRIMARY PHYSICIAN: Dr. Louis. CONSULTING PHYSICIAN: Wayne Muse M.D., cardiothoracic surgeon. REASON FOR CONSULTATION: Acute renal failure. HISTORY OF PRESENT ILLNESS: The patient is a 56-year-old gentleman who presented with severe chest pain and was found to have ST-segment elevation NC. He was taken to the labor union business representative and required open heart surgery. Thereafter, he underwent 3-vessel CABG on 06/24 with severe ischemic cardiomyopathy as a result and a postoperative NC as reported with a V-fib arrest. He apparently was doing well until recently with his creatinine running less than 1.4, until the , when it was 1.4 and elevated LFTs. His creatinine was 1.2 yesterday, it is now 3.1. His rates are somewhat discrepant. His eyes and nose reveal approximately a 10 liter negative fluid balance until the last 24 hours. He was given Lasix yesterday. He, however, has become somewhat oliguric overnight. He did get about almost 4.5 liters of fluids overnight. Also, he was noted to have a spiked high grade fevers. His EF has dropped to 20% post-CABG as of 07/26. He remains on numerous drips at this time. Through this, he also required intervention to his lower extremity for PVD. Through all this, we were consulted for acute renal failure since his creatinine has jumped from 1.2 to 3.1. He also noted to be mildly hyperkalemic. He has some metabolic acidosis based on his ABG. His sodium is mildly elevated, calcium is low. LFTs are elevated, so is his bilirubin. For rest of the detail, please see electronic renal consult note, but it is not extensive the amount of time was spent reviewing his records, given his prolonged stay and complicated hospital course. This was reviewed with Dr. Muse, with his as well as with Cardiology nurse practitioner, . Total critical care time spent was 35 minutes. ELIZABETH LOPEZ MD DR: DANNIELLE/pato JOB#: [id number] / [id number]
[2016-08-10] MEDS ORDERED: DIALYSIS PATIENT. MC PRN ×2 (16:00)
[2016-08-10] MEDS: MICAFUNGIN 100 MG in IV DEXTROSE 5% 100 ML IV SCH (18:05)
[2016-08-10] MEDS: ATORVASTATIN CALCIUM 40 MG TABLET. PO SCH (21:29)
[2016-08-11] VITALS (14 sets, daily range): BP systolic 110–137; BP diastolic 62–77
[2016-08-11] MEDS: ZOLPIDEM 5 MG TABLET. PO SCH (00:02)
[2016-08-11] MEDS: PIPERACILLIN/TAZOBACTAM 2.25 GM in IV NORMAL SALINE 50ML 50 ML IV SCH (05:48)
[2016-08-11 06:08] LABS: BASO % 0 % (0-3); EOS % 1 % (0-3); HEMATOCRIT 24.5 % (39.0-53.0); HEMOGLOBIN 8.4 g/dL (13.0-17.5); LYMPH # 0.5 x10^3/uL (1.0-4.8); LYMPH % 5 % (24-48); MEAN CORPUSCULAR HEMOGLOBIN 33 pg (25-35); MEAN CORPUSCULAR HGB CONC 34 g/dL (31-37); MEAN CORPUSCULAR VOLUME 96 fL (79-100); MONO % 5 % (0-9); NEUT % 90 % (31-73); PLATELET COUNT 166 x10^3/uL (140-400); RED BLOOD COUNT 2.56 x10^6/uL (4.30-5.70); RED CELL DISTRIBUTION WIDTH 18.3 % (11.5-14.5)
[2016-08-11 06:24] LABS: CALCIUM 8.6 mg/dL (8.5-10.1); CREATININE 3.7 mg/dL (0.7-1.3); POTASSIUM 4.9 mmol/L (3.5-5.1)
--- NOTE | 2016-08-11 07:23 | PDOC ---
Infectious Disease Note Subjective Subjective No acute events. Was out of bed yesterday. Now on HD ROS ROS GEN: Denies fevers, chills, sweats HEENT: Denies blurred vision, sore throat CV: Denies chest pain RESP: Denies shortness of air, cough GI: Denies n/v/d NEURO: Denies confusion, dizziness MSK: Denies weakness, joint pain/swelling Vital Sign Vital Signs Vital Signs Date Time Temp Pulse Resp B/P Pulse Ox O2 Delivery O2 Flow Rate FiO2 08/11/16 06:00 86 22 114/73 100 Tracheal Collar 08/11/16 04:00 98.3 98.3 08/10/16 20:26 10.0 Physical Exam PHYSICAL EXAM GENERAL: NAD, appears comfortable. Awake HEENT: PERRL, Icteric. Oral mucosa dry NECK: Trach/vent. LUNGS: Clear anteriorly HEART: S1S2 ABD: Mildly distended, BS present, soft, NT. PEG intact/ Rectal tube : Tesfaye EXT: Generalized edema trace to 1+ better. 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 Sternal and left leg incision well-approximate. no redness RUE PICC clean R tunneled HD cath 08/09. clean Labs Lab Laboratory Tests Test 08/10/16 07:44 08/10/16 13:35 08/10/16 19:07 08/11/16 04:47 O2 Saturation 96% (92-99) Arterial Blood pH 7.43 (7.35-7.45) Arterial Blood pCO2 at Patient Temp 34mmHg (35-46) Arterial Blood pO2 at Patient Temp 92mmHg (75-108) Arterial Blood HCO3 22mmol/L (21-28) Arterial Blood Base Excess -2mmol/L (-3-3) FiO2 40 Glucose (Fingerstick) 143mg/dL (70-99) 154mg/dL (70-99) White Blood Count 10.0x10^3/uL (4.0-11.0) Red Blood Count 2.56x10^6/uL (4.30-5.70) Hemoglobin 8.4g/dL (13.0-17.5) Hematocrit 24.5% (39.0-53.0) Mean Corpuscular Volume 96fL (79-100) Mean Corpuscular Hemoglobin 33pg (25-35) Mean Corpuscular Hemoglobin Concent 34g/dL (31-37) Red Cell Distribution Width 18.3% (11.5-14.5) Platelet Count 166x10^3/uL (140-400) Neutrophils (%) (Auto) 90% (31-73) Lymphocytes (%) (Auto) 5% (24-48) Monocytes (%) (Auto) 5% (0-9) Eosinophils (%) (Auto) 1% (0-3) Basophils (%) (Auto) 0% (0-3) Neutrophils # (Auto) 9.0x10^3uL (1.8-7.7) Lymphocytes # (Auto) 0.5x10^3/uL (1.0-4.8) Monocytes # (Auto) 0.4x10^3/uL (0.0-1.1) Eosinophils # (Auto) 0.1x10^3/uL (0.0-0.7) Basophils # (Auto) 0.0x10^3/uL (0.0-0.2) Test 08/11/16 05:45 08/11/16 05:46 Sodium Level 133mmol/L (136-145) Potassium Level 4.9mmol/L (3.5-5.1) Chloride Level 98mmol/L (98-107) Carbon Dioxide Level 23mmol/L (21-32) Anion Gap 12 (6-14) Blood Urea Nitrogen 89mg/dL (8-26) Creatinine 3.7mg/dL (0.7-1.3) Estimated GFR (Cockcroft-Gault) 17.0 Glucose Level 123mg/dL (70-99) Calcium Level 8.6mg/dL (8.5-10.1) Glucose (Fingerstick) 111mg/dL (70-99) Micro 08/03 sputum Enterobacter cloacae complex Moderate growth SPUTUM CULT RES 2 Final Staphylococcus aureus Moderate growth Methicillin resistant (MRSA) Based on resistance to oxacillin this isolate would be resistant to all currently available beta-lactam antimicrobial agents, with the exception of the newer cephalosporins with anti-MRSA activity, such as Ceftaroline ANTIMICROBIAL SUSCEPTIBILITY Final Comment S = Susceptible; I = Intermediate; R = Resistant P = Positive; N = Negative MICS are expressed in micrograms per mL Antibiotic RSLT#1 RSLT#2 RSLT#3 RSLT#4 Amoxicillin/Clavulanic Acid R Cefazolin R Cefepime S Ceftriaxone S Cefuroxime R Ciprofloxacin S R CONTINUED ON NEXT PAGE RUN DATE: 08/05/16 PAGE 2 RUN TIME: [address] [facility] [address] [place] [address] Neal Cole M.D., Furniture Mover Driver SPEC: [id number] PATIENT: CHARLY NAJERA [id number] ( Continued) Procedure Result Sputum 08/03 ANTIMICROBIAL SUSCEPTIBILITY Final (continued) Clindamycin R Ertapenem S Erythromycin R Gentamicin S S Imipenem S Levofloxacin S R Linezolid S Oxacillin R Penicillin R Piperacillin S Rifampin S Tetracycline S S Tobramycin S Trimethoprim/Sulfa S S Vancomycin S Objective Assessment 1. ? sepsis on Vanc/Zosyn/Micafungin 08/02 - improved. MRSA/Enterobacter sputum 2. Fever -? ID vs [employer]URE SPECIALIST bleed vs sinusitis, etc - improved 3. Perihepatic fluid on CT abd/pelvis 4. JAKE - s/p HD. S/p Perm cath 08/09 5. S/p CABG x 3 ,S/p left ventricular assist device 07/25 6. S/p Chest wound closure 07/27 7. 07/28 - S/p Left external iliac artery subtotal occlusion, s/p successful angioplasty with a 7 x 80 mm balloon. LSFA stenosis, s/p successful angioplasty with a 4.0 x 20 mm balloon Successful removal of a Impella CP percutaneous left ventricular assist device. Primary repair of common femoral artery 8. Small extra-axial fluid collection posteriorly near the right hemispheric vertex consistent with a small area of bleeding CT head 08/01 - stable on recent CT 9. Sinusitis CT 08/01 10. Resp failure -on vent 11. Afib 12. Cardiogenic shock 13. Severe three-vessel coronary artery disease 14. ST elevation myocardial infarction - intra-op 15. Severe ischemic cardiomyopathy 16. Thrombocytopenia - better Plan Plan of Care Cont Zyvox (08/05), Should be able to wean soon Cont Zosyn until the end of the week PT/OT Transfer to LT[facility] - awaiting insurance approval CY MUKHERJEE MD Aug 11, 2016 07:23
[2016-08-11] MEDS: INSULIN ASPART 300 UNITS/3 ML INSULN.PEN SQ SCH ×2 (08:00→12:00)
--- NOTE | 2016-08-11 08:06 | PDOC ---
Progress Note Subjective Subjective No acute events. On trach shield throughout the night. Was out of bed to chair yesterday. 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, extremities weak SKIN: No rash IV: ok Labs Lab Laboratory Tests Test 08/10/16 13:35 08/10/16 19:07 08/11/16 04:47 08/11/16 05:45 Glucose (Fingerstick) 143mg/dL (70-99) 154mg/dL (70-99) White Blood Count 10.0x10^3/uL (4.0-11.0) Red Blood Count 2.56x10^6/uL (4.30-5.70) Hemoglobin 8.4g/dL (13.0-17.5) Hematocrit 24.5% (39.0-53.0) Mean Corpuscular Volume 96fL (79-100) Mean Corpuscular Hemoglobin 33pg (25-35) Mean Corpuscular Hemoglobin Concent 34g/dL (31-37) Red Cell Distribution Width 18.3% (11.5-14.5) Platelet Count 166x10^3/uL (140-400) Neutrophils (%) (Auto) 90% (31-73) Lymphocytes (%) (Auto) 5% (24-48) Monocytes (%) (Auto) 5% (0-9) Eosinophils (%) (Auto) 1% (0-3) Basophils (%) (Auto) 0% (0-3) Neutrophils # (Auto) 9.0x10^3uL (1.8-7.7) Lymphocytes # (Auto) 0.5x10^3/uL (1.0-4.8) Monocytes # (Auto) 0.4x10^3/uL (0.0-1.1) Eosinophils # (Auto) 0.1x10^3/uL (0.0-0.7) Basophils # (Auto) 0.0x10^3/uL (0.0-0.2) Sodium Level 133mmol/L (136-145) Potassium Level 4.9mmol/L (3.5-5.1) Chloride Level 98mmol/L (98-107) Carbon Dioxide Level 23mmol/L (21-32) Anion Gap 12 (6-14) Blood Urea Nitrogen 89mg/dL (8-26) Creatinine 3.7mg/dL (0.7-1.3) Estimated GFR (Cockcroft-Gault) 17.0 Glucose Level 123mg/dL (70-99) Calcium Level 8.6mg/dL (8.5-10.1) Test 08/11/16 05:46 Glucose (Fingerstick) 111mg/dL (70-99) Objective Assessment Status post CABG 3 for severe ischemic cardiomyopathy, large anterior STEMI with troponin of 100, with early postoperative myocardial infarction/V. fib, leading to cardiogenic shock, placement of the vein graft to the LAD and impella for mechanical circulatory support and open chest. Sternotomy has been closed and the LVAD has been removed. The patient subsequently developed septic shock of unknown etiology. He has now recovered from sepsis although he did develop acute renal failure requiring dialysis. Now s/p trach/PEG. On trach shield throughout the day and doing very well. Out of the bed to the chair. Tube feeds at goal. MRSA in resp cultures. On Linezolid Plan Plan of Care Keep on trach shield, as tolerated Cont Zosyn until the end of the week Needs aggressive PT/OT. Out of bed again today Dialysis as per nephrology. Transfer to LTAC - awaiting insurance approval OLGA LOPEZ MD Aug 11, 2016 08:06
--- NOTE | 2016-08-11 08:12 | RAD ---
Portable chest, 08/11/2016: History: Postop CABG Comparison is made to a study from 08/06/2016. The tracheostomy tube is unchanged in position. A right PICC and a right jugular dialysis catheter both extend to the level of the atriocaval junction. The heart size and vascularity are at the upper limits of normal. There is a persistent left basilar opacity suggesting atelectasis, infiltrate and probable pleural fluid layering posteriorly. This has improved slightly. No significant right lung infiltrate is currently seen. No new abnormality is detected. IMPRESSION: 1. Stable tube positions. 2. Improving basilar opacities with mild residual left basilar atelectasis/infiltrate and probable pleural fluid.
[2016-08-11] MEDS: IPRATROPIUM BROMIDE 0.5 MG/2.5 ML NEBU. NEB SCH ×2 (08:17→11:48)
--- NOTE | 2016-08-11 08:20 | PDOC ---
SUBJECTIVE ROS JAKE/ ATN somwhat encephalpathic but better. Nods head to Qs CVS: no Orthopnea, no CP RESP: min SOB, no GOLD GI: no Nausea, no Vomiting : no Dysuria, no Urgency OBJECTIVE Vital Signs Vital Signs Date Time Temp Pulse Resp B/P Pulse Ox O2 Delivery O2 Flow Rate FiO2 08/11/16 06:00 86 22 114/73 100 Tracheal Collar 08/11/16 04:00 98.3 98.3 08/10/16 20:26 10.0 I & 0 Intake and Output 08/11/16 07:00 Intake Total 2439 ml Output Total 135 ml Balance 2304 ml IV Total 300 ml Tube Feeding 1518 ml Other 621 ml Output Urine Total 135 ml Stool Total 0 ml Gastric Drainage Total 0 ml PHYSICAL EXAM Physical Exam General Appearance: Awake , more alert today, via trache. follows commands Eyes: Sclera ? Min icteric Conjunctiva Normal EN: No EN Drainage Mucous Memb. moist Neck: no JVD no JVP Supple no Thyromegaly CVS: S1 S2 + Murmur No Gallop No Rub + 1-2 Edema Resp: no Rales Coarse Breath sounds , ? Rhonchi no Acc. Muscle use GI: BS hypoactive NO Bruit Non Tender Non Distended : no CVA tenderness; no Suprapubic Tenderness Assessment & Plan ARF/ ATN (remains Oligo-anuric) from multiple etios: Current FLuid and E-lyte status does not necessitate emergent need for Dialysis. Will re-evaluate for Dialysis in am. Anasarca (mostly asso with CMYOPahty) - UF with HD as blaine by hemodynamics ^Phos - Added binders and changed how it is administered Anemia: ct Epogen in setting of JAKE. COMMENT/RELEVANT DATA Meds Current Medications Medications (Trade) Dose Ordered Sig/Treva Start Time Stop Time Status Last Admin Dose Admin Acetaminophen (Acetaminophen Supp) 650 mg PRN Q4HRS PRN 07/25/16 17:30 08/03/16 01:04 650 MG Acetaminophen (Tylenol) 500 mg 1X PRN PRN 08/08/16 07:15 08/09/16 07:14 DC Acetaminophen/ Hydrocodone Bitart 2 tab 2 tab PRN Q4HRS PRN 07/25/16 17:30 08/03/16 12:24 DC Acetaminophen/ Hydrocodone Bitart (Lortab 5/325) 1 tab PRN Q4HRS PRN 07/25/16 17:30 08/03/16 12:24 DC Albumin Human (Albuminar) 200 ml @ 200 mls/hr 1X PRN PRN 08/08/16 07:15 08/08/16 13:14 DC 08/08/16 09:43 200 MLS/HR Albumin Human (Plasmanate) 500 ml @ 125 mls/hr 1X ONCE 08/02/16 20:30 08/03/16 00:29 DC 08/02/16 20:37 125 MLS/HR Albuterol Sulfate (Ventolin Neb Soln) 2.5 mg RTQID 07/28/16 12:00 07/30/16 17:05 DC 07/30/16 08:46 2.5 MG Alprazolam (Xanax) 0.25 mg PRN Q8HRS PRN 08/05/16 14:45 08/09/16 07:46 0.25 MG Alteplase, Recombinant (Cathflo) 2 mg 1X ONCE 07/31/16 23:15 07/31/16 23:16 DC 07/31/16 23:34 2 MG Aminocaproic Acid (Amicar) 5,000 mg STK-MED ONCE 07/25/16 16:20 07/25/16 16:21 DC Amiodarone HCl (Cordarone) 400 mg BID 07/30/16 21:00 08/08/16 14:02 DC 08/08/16 10:54 400 MG Amiodarone HCl 150 mg/Dextrose 103 ml @ 618 mls/hr 1X ONCE 07/26/16 19:15 07/26/16 19:24 DC 07/26/16 19:25 618 MLS/HR Amiodarone HCl 400 mg 400 mg DAILY 08/09/16 09:00 08/09/16 07:45 400 MG Amiodarone HCl 900 mg/Dextrose 518 ml @ 0 mls/hr CONT PRN 07/26/16 19:15 07/27/16 12:11 DC Amiodarone HCl/ Dextrose (Cordarone) 259 ml @ 17.26 mls/ hr CONT PRN 07/26/16 06:45 07/31/16 15:33 DC 07/30/16 13:02 17.26 MLS/HR Aspirin (Aspirin) 300 mg DAILY 07/26/16 12:00 07/29/16 19:10 DC 07/28/16 07:55 300 MG Aspirin (Arti Aspirin) 325 mg DAILYWBKFT 07/30/16 08:00 08/10/16 09:46 325 MG Aspirin (Ecotrin) 325 mg DAILYWBKFT 07/26/16 08:00 07/29/16 09:59 DC 07/29/16 09:54 325 MG Atorvastatin Calcium (Lipitor) 40 mg QHS 07/21/16 21:00 08/10/16 21:29 40 MG Atropine Sulfate 0.5 mg PRN Q5MIN PRN 07/30/16 13:30 Bupivacaine HCl/ Epinephrine Bitart 50 ml 50 ml STK-MED ONCE 07/28/16 07:42 07/28/16 07:43 DC Calcium Carbonate/ Glycine (Tums) 1,000 mg TID 08/09/16 09:00 08/10/16 21:28 1,000 MG Calcium Chloride 1,000 mg STK-MED ONCE 07/28/16 09:09 07/28/16 09:10 DC Calcium Chloride/ Sodium Chloride (Iv Sodium Chloride 0.9% 100ml) 120 ml @ 240 mls/hr 1X ONCE 08/03/16 13:30 08/03/16 13:59 DC 08/03/16 13:30 240 MLS/HR Calcium Gluconate 1000 mg 1,000 mg 1X ONCE 08/03/16 12:15 08/03/16 12:16 DC Cefazolin Sodium/ Dextrose (Ancef 2gm Premix) 2 gm STK-MED ONCE 07/25/16 11:00 07/26/16 08:53 DC Cefazolin Sodium/ Sodium Chloride (Ancef/Iv Sodium Chloride 0.9% 500ml Bag) 500 ml @ 500 mls/hr 1X PERIOP ONCE 07/28/16 08:00 07/28/16 08:59 DC 07/28/16 09:25 Cellulose 1 each STK-MED ONCE 07/28/16 07:42 07/28/16 07:43 DC Chlorhexidine Gluconate (Peridex) 15 ml BID 07/26/16 10:30 08/09/16 18:00 DC 08/09/16 07:46 15 ML Clevidipine (Cleviprex) 100 ml @ 0 mls/hr CONT PRN 07/25/16 13:45 07/26/16 11:29 DC Clonidine HCl 0.1 mg 0.1 mg 1X PRN PRN 08/08/16 07:15 08/09/16 07:14 DC Darbepoetin Nick (Aranesp) 60 mcg [id number] 08/07/16 21:00 08/07/16 21:04 60 MCG Dexamethasone Sodium Phosphate (Decadron) 20 mg STK-MED ONCE 08/05/16 13:05 08/05/16 13:06 DC Dexmedetomidine HCl/Sodium Chloride (Precedex/Iv Sodium Chloride 0.9% 50ml) 50 ml @ 0 mls/hr CONT PRN 07/30/16 13:30 08/08/16 14:02 DC 08/04/16 05:20 4.34 MLS/HR Dextrose (Dextrose 50%-Water Syringe) 12.5 gm PRN Q15MIN PRN 08/03/16 18:30 Dextrose 25 gm 25 gm 1X ONCE 07/26/16 01:00 07/26/16 01:18 DC 07/26/16 01:08 25 GM Digoxin (Lanoxin) 125 mcg DAILY 07/31/16 09:00 08/03/16 14:27 DC 08/02/16 08:56 125 MCG Digoxin 500 mcg 500 mcg 1X ONCE 07/30/16 12:15 07/30/16 12:19 DC 07/30/16 13:01 500 MCG Diphenhydramine HCl (Benadryl) 25 mg 1X PRN PRN 08/08/16 07:15 08/09/16 07:14 DC Diphenhydramine HCl 50 mg 50 mg STK-MED ONCE 07/25/16 16:56 07/25/16 16:57 DC Dobutamine HCl/ Dextrose 250 ml @ 12.1 mls/hr CONT PRN 07/29/16 13:30 08/08/16 13:39 DC 08/02/16 18:03 6.9 MLS/HR Docusate Sodium (Colace Solution) 100 mg PRN DAILY PRN 07/31/16 11:00 08/08/16 13:39 DC 08/01/16 08:40 100 MG Docusate Sodium (Colace) 100 mg DAILY 07/20/16 15:00 07/29/16 10:03 DC 07/29/16 09:54 100 MG Docusate Sodium 100 mg 100 mg DAILY 07/30/16 09:00 07/31/16 11:00 DC 07/31/16 07:59 100 MG Dopamine HCl/ Dextrose 250 ml @ 0 mls/hr CONT PRN PRN 07/25/16 17:30 07/26/16 11:41 DC Ephedrine Sulfate 50 mg 50 mg STK-MED ONCE 07/25/16 07:16 07/25/16 07:17 DC Epinephrine HCl (Epinephrine Syringe) 1 mg STK-MED ONCE 07/28/16 09:09 07/28/16 09:10 DC Epinephrine HCl/ Sodium Chloride (Adrenalin/Iv Sodium Chloride 0.9% 250ml) 254 ml @ 3.81 mls/hr 1X ONCE 07/28/16 10:00 07/29/16 19:10 DC Etomidate (Amidate) 20 mg STK-MED ONCE 07/25/16 06:08 07/25/16 06:09 DC Famotidine (Pepcid) 20 mg STK-MED ONCE 08/05/16 13:05 08/05/16 13:06 DC Fentanyl Citrate (Fentanyl 2ml Vial) 50 mcg PRN Q5MIN PRN 08/04/16 07:00 08/05/16 06:59 DC Fentanyl Citrate (Fentanyl 600 Mcg/30 ml AIRCRA[employer] RE[employer]ER) 30 ml @ 0 mls/hr CONT PRN PRN 08/02/16 13:30 08/08/16 13:39 DC 08/06/16 02:18 2.5 MLS/HR Furosemide (Lasix) 40 mg 1X ONCE 08/02/16 20:30 08/02/16 20:31 DC 08/03/16 00:16 40 MG Furosemide/Sodium Chloride (Lasix Drip/Iv Sodium Chloride 0.9% 100ml) 100 ml @ 5 mls/hr CONT PRN 07/28/16 15:30 07/31/16 13:31 DC 07/30/16 09:50 10 MLS/HR Haloperidol Lactate (Haldol) 5 mg PRN Q6HRS PRN 08/01/16 21:00 08/07/16 07:26 5 MG Haloperidol Lactate 10 mg 10 mg PRN Q6HRS PRN 08/01/16 23:45 08/07/16 21:04 10 MG Heparin Sodium (Porcine) (Heparin Sodium) 2,600 unit 1X ONCE 08/09/16 15:30 08/09/16 15:31 DC 08/09/16 15:44 4,000 UNIT Heparin Sodium (Porcine) 73199 unit/Dextrose 512.5 ml @ 0 mls/hr Q0M ONCE 07/26/16 18:30 07/26/16 18:31 DC 07/26/16 19:40 1 MLS/HR Heparin Sodium (Porcine) 73441 unit/Lactated Ringer's 1,020 ml @ 1,020 mls/hr 1X PERIOP ONCE 07/25/16 06:00 07/25/16 06:59 DC 07/25/16 08:46 Heparin Sodium (Porcine) 39054 unit 30,000 unit STK-MED ONCE 07/25/16 13:08 07/25/16 13:09 DC Heparin Sodium (Porcine)/Sodium Chloride (Heparin Sodium/ Iv Sodium Chloride 0.9% 500ml Bag) 505 ml @ 505 mls/hr 1X PERIOP ONCE 07/28/16 08:15 07/28/16 09:14 DC 07/28/16 10:19 Heparin Sodium/ Dextrose 500 ml @ 0 mls/hr CONT PRN 07/21/16 16:30 07/26/16 08:55 DC 07/24/16 01:40 0 MLS/HR Heparin Sodium/ Sodium Chloride 1,000 unit 1X ONCE 08/09/16 15:30 08/09/16 15:31 DC 08/09/16 15:44 1,000 UNIT Heparin Sodium/ Sodium Chloride 1000 unit 1,000 unit CONT PRN 07/28/16 14:45 08/08/16 13:39 DC 08/02/16 06:47 1,000 UNIT Hydralazine HCl (Apresoline) 10 mg PRN Q2HRS PRN 07/31/16 13:30 08/01/16 16:35 10 MG Hydromorphone HCl (Dilaudid) 0.5 mg PRN Q10MIN PRN 08/04/16 07:00 08/05/16 06:59 DC Ibuprofen (Motrin) 200 mg PRN Q6HRS PRN 07/30/16 19:45 08/01/16 12:22 DC Info (PHARMACY MONITORING -- do not chart) 1 each PRN DAILY PRN 08/10/16 16:00 UNV Info 1 each 1 each PRN DAILY PRN 08/05/16 12:30 08/08/16 07:15 DC Insulin Aspart (Novolog) 0-7 UNITS TIDWMEALS 08/03/16 19:00 08/10/16 19:09 3 UNITS Insulin Human Regular 150 unit/ Sodium Chloride 151.5 ml @ 0 mls/hr CONT PRN PRN 07/25/16 17:30 07/29/16 13:51 DC 07/29/16 03:03 2.7 MLS/HR Iodixanol (Visipaque 320) 200 ml STK-MED ONCE 07/20/16 14:00 07/21/16 08:26 DC Iohexol (Omnipaque 300 Mg/ml) 100 ml STK-MED ONCE 07/28/16 10:43 07/28/16 10:44 DC Iohexol 100 ml 100 ml STK-MED ONCE 07/25/16 15:28 07/25/16 15:29 DC 07/25/16 15:39 100 ML Ipratropium [place] (Atrovent) 0.5 mg RTQID 07/30/16 12:30 08/10/16 20:24 0.5 MG Isoflurane (Isoflurane) 90 ml STK-MED ONCE 07/25/16 15:13 07/25/16 15:14 DC Ketorolac Tromethamine (Toradol) 15 mg 1X ONCE 08/03/16 02:15 08/03/16 02:16 DC 08/03/16 02:03 15 MG Labetalol HCl (Normodyne) 10 mg PRN Q1HR PRN 08/08/16 07:15 08/09/16 07:14 DC Lactated Ringer's (Iv Lactated Ringers) 1,000 ml @ 0 mls/hr Q0M 08/04/16 07:00 08/04/16 18:59 DC Lactobacillus Acidophilus (Bacid, Rafaela-Bid) 1 tab TIDWMEALS 08/09/16 08:00 08/10/16 17:00 1 TAB Lidocaine HCl (Lidocaine HCl 2% Abboject) 100 mg STK-MED ONCE 07/25/16 16:20 07/25/16 16:21 DC Lidocaine HCl (Xylocaine-Mpf 1% Vial) 5 ml STK-MED ONCE 08/05/16 14:55 08/05/16 15:11 DC 08/05/16 14:55 3 ML Lidocaine/ Epinephrine (Xylocaine 1%-Epi 1:100,000) 20 ml 1X ONCE 08/09/16 15:30 08/09/16 15:31 DC 08/09/16 15:44 5 ML Lidocaine/Sodium Bicarbonate (Buffered Lidocaine 1%) 3 ml 1X ONCE 08/03/16 14:45 08/03/16 14:46 DC 08/03/16 16:16 3 ML Linezolid (Zyvox Premix) 300 ml @ 300 mls/hr Q12HR 08/06/16 11:30 08/09/16 07:57 DC 08/09/16 07:43 300 MLS/HR Linezolid (Zyvox) 600 mg BID 08/09/16 21:00 08/10/16 21:29 600 MG Lisinopril (Prinivil) 5 mg DAILY 07/20/16 15:00 07/20/16 17:21 DC 07/20/16 16:25 5 MG Lorazepam (Ativan) 2 mg STK-MED ONCE 07/28/16 08:30 07/29/16 08:16 DC Lorazepam 2 mg 2 mg STK-MED ONCE 07/28/16 08:29 07/28/16 08:30 DC Magnesium Sulfate 5 gm STK-MED ONCE 07/25/16 16:19 07/25/16 16:20 DC Magnesium Sulfate/ Dextrose 50 ml @ 25 mls/hr PRN DAILY PRN 08/03/16 12:30 08/09/16 18:00 DC Magnesium Sulfate/ Dextrose (Magnesium Sulfate PREMIX 1GM) 100 ml @ 100 mls/hr 1X ONCE 07/28/16 09:00 07/28/16 09:59 DC 07/28/16 13:09 100 MLS/HR Mannitol (Mannitol) 12.5 g STK-MED ONCE 07/25/16 16:20 07/25/16 16:21 DC Meperidine HCl (Demerol) 12.5 mg PRN Q15MIN PRN 07/25/16 17:30 07/29/16 13:38 DC Metoclopramide HCl (Reglan) 10 mg PRN Q6HRS PRN 07/25/16 17:30 08/08/16 13:39 DC 08/07/16 07:26 10 MG Metoprolol Tartrate (Lopressor) 12.5 mg BID 07/31/16 10:00 08/10/16 21:30 12.5 MG Metoprolol Tartrate 25 mg 25 mg 1X ONCE 07/22/16 06:00 07/22/16 06:02 DC Metoprolol Tartrate 5 mg 5 mg PRN Q2HR PRN 07/30/16 22:30 08/09/16 18:00 DC 08/04/16 22:09 5 MG Micafungin Sodium 100 mg/Dextrose 100 ml @ 100 mls/hr Q24H 08/02/16 17:00 08/10/16 18:05 100 MLS/HR Midazolam HCl (Versed) 2 mg STK-MED ONCE 08/05/16 13:13 08/05/16 13:14 DC Midazolam HCl 5 mg 5 mg PRN Q30MIN PRN 07/25/16 18:15 07/25/16 18:39 DC Milrinone Lactate/ Dextrose (Primacor Premix) 100 ml @ 0 mls/hr CONT PRN 07/26/16 19:45 07/29/16 13:51 DC 07/26/16 20:03 12.043 MLS/HR Morphine Sulfate 1 mg 1 mg PRN Q10MIN PRN 08/04/16 07:00 08/05/16 06:59 DC Multi-Ingred Cream/Lotion/Oil/ Oint (Artificial Tears Eye Oint) 1 ardi BID 07/26/16 21:00 08/09/16 07:46 1 ADRI Naloxone HCl 0.4 mg 0.4 mg PRN Q2MIN PRN 08/02/16 13:30 Nitroglycerin (Nitrostat) 0.4 mg PRN Q5MIN PRN 07/20/16 14:45 07/26/16 11:41 DC 07/25/16 04:55 0.4 MG Nitroglycerin 0.4 mg 0.4 mg PRN Q5MIN PRN 07/23/16 12:00 UNV Nitroglycerin/ Dextrose (Nitroglycerin Drip) 250 ml @ As Directed STK-MED ONCE 07/25/16 07:16 07/25/16 07:17 DC Norepinephrine Bitartrate 8 mg/ Sodium Chloride 258 ml @ 1.93 mls/hr CONT PRN 07/26/16 19:15 08/09/16 18:00 DC 08/03/16 11:12 16.9 MLS/HR Norepinephrine Bitartrate/Sodium Chloride (Levophed Vial/ Iv Sodium Chloride 0.9% 250ml) 258 ml @ 1.93 mls/hr 1X ONCE 07/25/16 16:00 07/27/16 08:04 DC 07/25/16 18:53 15.48 MLS/HR Ondansetron HCl (Zofran) 4 mg STK-MED ONCE 08/05/16 13:05 08/05/16 13:06 DC Pantoprazole Sodium 40 mg 40 mg DAILYAC 08/06/16 07:30 08/10/16 09:48 40 MG Papaverine HCl 60 mg STK-MED ONCE 07/25/16 07:07 07/25/16 07:08 DC 07/25/16 08:46 60 MG Phenylephrine HCl 1 mg STK-MED ONCE 07/28/16 09:54 07/28/16 09:55 DC Phenylephrine HCl (-Synephrine Inj) 10 mg STK-MED ONCE 07/25/16 06:08 07/25/16 06:09 DC Piperacillin Sod/ Tazobactam Sod 3.375 gm/Sodium Chloride 50 ml @ 100 mls/hr Q6HRS 08/02/16 12:00 08/02/16 15:43 DC 08/02/16 13:17 100 MLS/HR Piperacillin Sod/ Tazobactam Sod 4.5 gm/Sodium Chloride 100 ml @ 200 mls/hr Q6HRS 08/02/16 18:00 08/03/16 14:02 DC 08/03/16 12:00 200 MLS/HR Piperacillin Sod/ Tazobactam Sod/ Sodium Chloride (Zosyn/Iv Sodium Chloride 0.9% 50ml) 50 ml @ 100 mls/hr Q8HRS 08/08/16 22:00 08/11/16 05:48 100 MLS/HR Potassium Chloride 70 meq/ Sodium Bicarbonate 12.5 meq/Lidocaine HCl 24 ml/Parenteral Electrolytes 571.5 ml @ 571.5 mls/ hr 1X PERIOP ONCE 07/25/16 06:00 07/25/16 06:59 DC Potassium Chloride/Sodium Bicarbonate/ Parenteral Electrolytes (Isolyte S) 520 ml @ 520 mls/hr 1X PERIOP ONCE 07/25/16 06:00 07/25/16 06:59 DC Potassium Chloride (KCl Premix 20meq) 50 ml @ 50 mls/hr Q1H 07/31/16 07:00 07/31/16 08:59 DC 07/31/16 09:04 50 MLS/HR Procainamide HCl/ Dextrose (Pronestyl) 520 ml @ 15.6 mls/hr CONT PRN 07/25/16 14:30 07/28/16 15:22 DC Prochlorperazine Edisylate (Compazine) 5 mg PACU PRN PRN 07/25/16 07:00 07/26/16 06:59 DC Prochlorperazine Edisylate 5 mg 5 mg PACU PRN PRN 07/27/16 07:00 07/28/16 06:59 DC Propofol (Diprivan) 20 ml @ As Directed STK-MED ONCE 08/05/16 13:01 08/05/16 13:02 DC Protamine Sulfate 50 mg STK-MED ONCE 07/25/16 16:34 07/25/16 16:35 DC Rocuronium [place] 50 mg 50 mg STK-MED ONCE 07/28/16 07:27 07/28/16 07:28 DC Rocuronium [place] (Zemuron) 50 mg STK-MED ONCE 08/05/16 13:01 08/05/16 13:02 DC Sevelamer Carbonate (Renvela) 7.2 gm DAILY 08/10/16 10:30 08/10/16 10:30 7.2 GM Sevoflurane (Ultane) 60 ml STK-MED ONCE 08/05/16 14:29 08/05/16 14:30 DC Sevoflurane 60 ml 60 ml STK-MED ONCE 07/28/16 09:54 07/28/16 09:55 DC Sodium Bicarbonate 150 meq/Dextrose 1,150 ml @ 100 mls/hr [id number] 08/03/16 13:30 08/04/16 08:31 DC 08/04/16 04:31 100 MLS/HR Sodium Bicarbonate 150 meq/Dextrose/ Sodium Chloride 1,150 ml @ 100 mls/hr [id number] PRN 08/03/16 12:30 08/03/16 13:03 DC Sodium Bicarbonate 50 meq 50 meq STK-MED ONCE 07/25/16 14:04 07/25/16 14:05 DC Sodium Bicarbonate 50 meq 1X ONCE 08/03/16 10:15 08/03/16 10:20 DC 08/03/16 10:44 50 MEQ Sodium Chloride (Iv Sodium Chloride 0.9% 500ml Bag) 500 ml @ 500 mls/hr 1X ONCE 08/02/16 12:45 08/02/16 13:44 DC 08/02/16 12:39 500 MLS/HR Sodium Chloride (Iv Sodium Chloride 0.9% 1000ml Bag) 1,000 ml @ 400 mls/hr Q2H30M PRN 08/08/16 07:01 08/08/16 19:00 DC Sodium Chloride (Normal Saline Flush) 10 ml 1X PRN PRN 08/05/16 12:30 08/06/16 12:29 DC Sodium Chloride (Sodium Chloride) 50 ml STK-MED ONCE 08/05/16 13:58 08/05/16 13:59 DC Sodium Chloride 3 ml 3 ml PRN Q12HR PRN 07/25/16 17:30 07/29/16 13:38 DC Sufentanil Citrate (Sufenta) 100 mcg STK-MED ONCE 07/25/16 08:53 07/25/16 08:54 DC Sulfur Hexafluoride Microspheres (Lumason) 25 mg 1X ONCE 07/26/16 11:45 07/26/16 11:50 DC 07/26/16 11:45 25 MG Vancomycin HCl (Vanco) 10 gm 1X ONCE 07/27/16 12:30 07/27/16 12:31 DC 07/27/16 14:37 10 GM Vancomycin HCl 1.25 gm/Sodium Chloride 250 ml @ 167 mls/hr Q12H 08/03/16 00:00 08/03/16 11:07 DC 08/03/16 00:33 167 MLS/HR Vancomycin HCl 1 each 1 each 1X ONCE 08/03/16 23:30 08/03/16 23:30 DC Vancomycin HCl 2 gm/Sodium Chloride 500 ml @ 250 mls/hr 1X ONCE 08/02/16 12:00 08/02/16 13:59 DC 08/02/16 11:52 250 MLS/HR Vancomycin HCl/ Sodium Chloride (Iv Sodium Chloride 0.9% 250ml) 250 ml @ 250 mls/hr 1X ONCE 07/25/16 18:15 07/25/16 19:14 DC 07/25/16 20:56 250 MLS/HR Vasopressin (Vasostrict) 20 unit STK-MED ONCE 08/05/16 13:58 08/05/16 13:59 DC Vasopressin/ Dextrose (Vasostrict) 102 ml @ 6 mls/hr CONT PRN 07/25/16 17:15 08/08/16 14:02 DC 08/03/16 18:28 6 MLS/HR Vecuronium [place] 100 mg/ Dextrose 100 ml @ 0 mls/hr 1X ONCE 07/25/16 18:15 07/25/16 18:17 DC 07/25/16 19:43 8 MLS/HR Vecuronium [place]/Dextrose (Norcuron) 100 ml @ 0 mls/hr CONT PRN 07/26/16 00:45 07/29/16 13:38 DC 07/26/16 01:07 8 MLS/HR Vecuronium [place] (Norcuron Bolus) 10 mg 1X STAT 08/02/16 13:17 08/02/16 13:23 DC 08/02/16 13:34 10 MG Zolpidem Tartrate (Ambien) 5 mg PRN QHS PRN 07/21/16 15:30 07/29/16 13:38 DC Zolpidem Tartrate 5 mg 5 mg HS 08/07/16 21:00 08/11/16 00:02 5 MG Lab Laboratory Tests Test 08/10/16 13:35 08/10/16 19:07 08/11/16 04:47 08/11/16 05:45 Glucose (Fingerstick) 143mg/dL (70-99) 154mg/dL (70-99) White Blood Count 10.0x10^3/uL (4.0-11.0) Red Blood Count 2.56x10^6/uL (4.30-5.70) Hemoglobin 8.4g/dL (13.0-17.5) Hematocrit 24.5% (39.0-53.0) Mean Corpuscular Volume 96fL (79-100) Mean Corpuscular Hemoglobin 33pg (25-35) Mean Corpuscular Hemoglobin Concent 34g/dL (31-37) Red Cell Distribution Width 18.3% (11.5-14.5) Platelet Count 166x10^3/uL (140-400) Neutrophils (%) (Auto) 90% (31-73) Lymphocytes (%) (Auto) 5% (24-48) Monocytes (%) (Auto) 5% (0-9) Eosinophils (%) (Auto) 1% (0-3) Basophils (%) (Auto) 0% (0-3) Neutrophils # (Auto) 9.0x10^3uL (1.8-7.7) Lymphocytes # (Auto) 0.5x10^3/uL (1.0-4.8) Monocytes # (Auto) 0.4x10^3/uL (0.0-1.1) Eosinophils # (Auto) 0.1x10^3/uL (0.0-0.7) Basophils # (Auto) 0.0x10^3/uL (0.0-0.2) Sodium Level 133mmol/L (136-145) Potassium Level 4.9mmol/L (3.5-5.1) Chloride Level 98mmol/L (98-107) Carbon Dioxide Level 23mmol/L (21-32) Anion Gap 12 (6-14) Blood Urea Nitrogen 89mg/dL (8-26) Creatinine 3.7mg/dL (0.7-1.3) Estimated GFR (Cockcroft-Gault) 17.0 Glucose Level 123mg/dL (70-99) Calcium Level 8.6mg/dL (8.5-10.1) Test 08/11/16 05:46 Glucose (Fingerstick) 111mg/dL (70-99) ELIZABETH LOPEZ MD Aug 11, 2016 08:20
[2016-08-11] MEDS: SEVELAMER CARBONATE 2.4 GM PACKET. PO SCH (09:00)
[2016-08-11] MEDS: HEPARIN PF for SUB-Q USE 5,000 UNIT/0.5 ML VIAL. SQ SCH (09:00)
[2016-08-11] MEDS: MINERAL OIL/PETROLATUM,WHITE OPHTH OINT 3.5GM TUBE. OU SCH (09:00)
[2016-08-11] MEDS: CALCIUM CARBONATE 500 MG TAB.CHEW PO SCH ×2 (09:40→12:27)
[2016-08-11] MEDS: ASPIRIN 325 MG TABLET PO SCH (09:40)
[2016-08-11] MEDS: PANTOPRAZOLE IV PUSH 40 MG VIAL. IVP SCH (09:40)
[2016-08-11] MEDS: LACTOBACILLUS ACIDOPH & BULGAR 1 TABLET. PO SCH ×2 (09:41→12:27)
[2016-08-11] MEDS: METOPROLOL TART IMMED RELEASE 25 MG TABLET. NG SCH (09:41)
[2016-08-11] MEDS: AMIODARONE HCL 200 MG TABLET. PO SCH (09:42)
[2016-08-11] MEDS: LINEZOLID 600 MG TABLET PEG SCH (09:42)
--- NOTE | 2016-08-11 12:15 | PDOC ---
PROGRESS NOTES Chief Complaint Chief Complaint cc: chest pain -Severe three-vessel coronary artery disease found on cath -S/P CABG x3 -Critical Illness Neuropathy -Resp failure on Vent -Mediastinal Washout -Multiple procedures -A-fib -Hypertension -STEMI -Cardiogenic shock -Ischemic cardiomyopathy -JAKE -SDH -Hemodialysis catheter -Right renal mass History of Present Illness History of Present Illness Mr. Alvarado was lying in bed with a ventilator for his tracheostomy. He had an oxygen saturation of 100%. We spoke with the patient's and nursing about this case. The patient was awake and aware of our presence. He was able to respond to verbal commands. He reportedly did well overnight, and he is more alert overall. Vitals Vitals Vital Signs Date Time Temp Pulse Resp B/P Pulse Ox O2 Delivery O2 Flow Rate FiO2 08/11/16 11:49 100 Tracheal Collar 8.0 08/11/16 11:07 85 133/77 08/11/16 10:00 18 08/11/16 07:00 98.0 98.0 Physical Exam General: Cooperative, No acute distress Heart: Normal S1, Normal S2, No murmurs Lungs: Clear, Other (The patient had a tracheal shield and was on a ventilator. ) Abdomen: Soft, No tenderness Extremities: No cyanosis, No edema Skin: No rashes, No breakdown Labs LABS Laboratory Tests Test 08/10/16 13:35 08/10/16 19:07 08/11/16 04:47 08/11/16 05:45 Glucose (Fingerstick) 143mg/dL (70-99) 154mg/dL (70-99) White Blood Count 10.0x10^3/uL (4.0-11.0) Red Blood Count 2.56x10^6/uL (4.30-5.70) Hemoglobin 8.4g/dL (13.0-17.5) Hematocrit 24.5% (39.0-53.0) Mean Corpuscular Volume 96fL (79-100) Mean Corpuscular Hemoglobin 33pg (25-35) Mean Corpuscular Hemoglobin Concent 34g/dL (31-37) Red Cell Distribution Width 18.3% (11.5-14.5) Platelet Count 166x10^3/uL (140-400) Neutrophils (%) (Auto) 90% (31-73) Lymphocytes (%) (Auto) 5% (24-48) Monocytes (%) (Auto) 5% (0-9) Eosinophils (%) (Auto) 1% (0-3) Basophils (%) (Auto) 0% (0-3) Neutrophils # (Auto) 9.0x10^3uL (1.8-7.7) Lymphocytes # (Auto) 0.5x10^3/uL (1.0-4.8) Monocytes # (Auto) 0.4x10^3/uL (0.0-1.1) Eosinophils # (Auto) 0.1x10^3/uL (0.0-0.7) Basophils # (Auto) 0.0x10^3/uL (0.0-0.2) Sodium Level 133mmol/L (136-145) Potassium Level 4.9mmol/L (3.5-5.1) Chloride Level 98mmol/L (98-107) Carbon Dioxide Level 23mmol/L (21-32) Anion Gap 12 (6-14) Blood Urea Nitrogen 89mg/dL (8-26) Creatinine 3.7mg/dL (0.7-1.3) Estimated GFR (Cockcroft-Gault) 17.0 Glucose Level 123mg/dL (70-99) Calcium Level 8.6mg/dL (8.5-10.1) Test 08/11/16 05:46 Glucose (Fingerstick) 111mg/dL (70-99) Review of Systems Review of Systems Mr. Alvarado has not felt any nausea or malaise. He has not experienced any episodes of vomiting. He has not felt lightheaded or had tunnel vision. Assessment and Plan Assessmemt and Plan Problems Medical Problems: (1) CAD (coronary artery disease), [place] coronary artery Status: Acute (2) Chest pain Status: Acute (3) STEMI (ST elevation myocardial infarction) Status: Acute Assessment: Mr. Alvarado is a 56 year old male who presented with chest pain. -Severe three-vessel coronary artery disease found on cath -S/P CABG x3 -Critical Illness Neuropathy -Resp failure on Vent -Mediastinal Washout -Multiple procedures -A-fib -Hypertension -STEMI -Cardiogenic shock -Ischemic cardiomyopathy -JAKE -SDH -Hemodialysis catheter -Right renal mass Plan: 1. Continue phosphate removal 2. Continue calcium supplementation 3. Continue medications per cardiology - amiodarone, ASA, atorvastatin 4. Continue antibiotics per ID linezolid and Zosyn 5. Continue DVT PPX 6. Monitor normocytic anemia 7. Continue PPI per GI 8. Continue zolpidem for sleep/sedation 9. Continue home medications 10. Continue micafungin per ID 11. Accepted to LTAC 12. Appreciate consultation from subspecialists His prognosis is guarded Problems: Comment Review of Relevant I have reviewed the following items leonidas (where applicable) has been applied. Labs Laboratory Tests Test 08/09/16 14:07 08/09/16 16:36 08/10/16 00:39 08/10/16 06:00 Glucose (Fingerstick) 125mg/dL (70-99) 122mg/dL (70-99) 146mg/dL (70-99) White Blood Count 8.7x10^3/uL (4.0-11.0) Red Blood Count 2.41x10^6/uL (4.30-5.70) Hemoglobin 7.8g/dL (13.0-17.5) Hematocrit 23.0% (39.0-53.0) Mean Corpuscular Volume 96fL (79-100) Mean Corpuscular Hemoglobin 32pg (25-35) Mean Corpuscular Hemoglobin Concent 34g/dL (31-37) Red Cell Distribution Width 19.1% (11.5-14.5) Platelet Count 140x10^3/uL (140-400) Neutrophils (%) (Auto) 90% (31-73) Lymphocytes (%) (Auto) 5% (24-48) Monocytes (%) (Auto) 5% (0-9) Eosinophils (%) (Auto) 0% (0-3) Basophils (%) (Auto) 0% (0-3) Neutrophils # (Auto) 7.8x10^3uL (1.8-7.7) Lymphocytes # (Auto) 0.5x10^3/uL (1.0-4.8) Monocytes # (Auto) 0.4x10^3/uL (0.0-1.1) Eosinophils # (Auto) 0.0x10^3/uL (0.0-0.7) Basophils # (Auto) 0.0x10^3/uL (0.0-0.2) Sodium Level 136mmol/L (136-145) Potassium Level 4.6mmol/L (3.5-5.1) Chloride Level 95mmol/L (98-107) Carbon Dioxide Level 22mmol/L (21-32) Anion Gap 19 (6-14) Blood Urea Nitrogen 127mg/dL (8-26) Creatinine 4.8mg/dL (0.7-1.3) Estimated GFR (Cockcroft-Gault) 12.6 Glucose Level 153mg/dL (70-99) Calcium Level 8.2mg/dL (8.5-10.1) Phosphorus Level 8.9mg/dL (2.6-4.7) Albumin 2.1g/dL (3.4-5.0) Test 08/10/16 06:06 08/10/16 07:44 08/10/16 13:35 08/10/16 19:07 Glucose (Fingerstick) 134mg/dL (70-99) 143mg/dL (70-99) 154mg/dL (70-99) O2 Saturation 96% (92-99) Arterial Blood pH 7.43 (7.35-7.45) Arterial Blood pCO2 at Patient Temp 34mmHg (35-46) Arterial Blood pO2 at Patient Temp 92mmHg (75-108) Arterial Blood HCO3 22mmol/L (21-28) Arterial Blood Base Excess -2mmol/L (-3-3) FiO2 40 Test 08/11/16 04:47 08/11/16 05:45 08/11/16 05:46 White Blood Count 10.0x10^3/uL (4.0-11.0) Red Blood Count 2.56x10^6/uL (4.30-5.70) Hemoglobin 8.4g/dL (13.0-17.5) Hematocrit 24.5% (39.0-53.0) Mean Corpuscular Volume 96fL (79-100) Mean Corpuscular Hemoglobin 33pg (25-35) Mean Corpuscular Hemoglobin Concent 34g/dL (31-37) Red Cell Distribution Width 18.3% (11.5-14.5) Platelet Count 166x10^3/uL (140-400) Neutrophils (%) (Auto) 90% (31-73) Lymphocytes (%) (Auto) 5% (24-48) Monocytes (%) (Auto) 5% (0-9) Eosinophils (%) (Auto) 1% (0-3) Basophils (%) (Auto) 0% (0-3) Neutrophils # (Auto) 9.0x10^3uL (1.8-7.7) Lymphocytes # (Auto) 0.5x10^3/uL (1.0-4.8) Monocytes # (Auto) 0.4x10^3/uL (0.0-1.1) Eosinophils # (Auto) 0.1x10^3/uL (0.0-0.7) Basophils # (Auto) 0.0x10^3/uL (0.0-0.2) Sodium Level 133mmol/L (136-145) Potassium Level 4.9mmol/L (3.5-5.1) Chloride Level 98mmol/L (98-107) Carbon Dioxide Level 23mmol/L (21-32) Anion Gap 12 (6-14) Blood Urea Nitrogen 89mg/dL (8-26) Creatinine 3.7mg/dL (0.7-1.3) Estimated GFR (Cockcroft-Gault) 17.0 Glucose Level 123mg/dL (70-99) Calcium Level 8.6mg/dL (8.5-10.1) Glucose (Fingerstick) 111mg/dL (70-99) Laboratory Tests Test 08/10/16 13:35 08/10/16 19:07 08/11/16 04:47 08/11/16 05:45 Glucose (Fingerstick) 143mg/dL (70-99) 154mg/dL (70-99) White Blood Count 10.0x10^3/uL (4.0-11.0) Red Blood Count 2.56x10^6/uL (4.30-5.70) Hemoglobin 8.4g/dL (13.0-17.5) Hematocrit 24.5% (39.0-53.0) Mean Corpuscular Volume 96fL (79-100) Mean Corpuscular Hemoglobin 33pg (25-35) Mean Corpuscular Hemoglobin Concent 34g/dL (31-37) Red Cell Distribution Width 18.3% (11.5-14.5) Platelet Count 166x10^3/uL (140-400) Neutrophils (%) (Auto) 90% (31-73) Lymphocytes (%) (Auto) 5% (24-48) Monocytes (%) (Auto) 5% (0-9) Eosinophils (%) (Auto) 1% (0-3) Basophils (%) (Auto) 0% (0-3) Neutrophils # (Auto) 9.0x10^3uL (1.8-7.7) Lymphocytes # (Auto) 0.5x10^3/uL (1.0-4.8) Monocytes # (Auto) 0.4x10^3/uL (0.0-1.1) Eosinophils # (Auto) 0.1x10^3/uL (0.0-0.7) Basophils # (Auto) 0.0x10^3/uL (0.0-0.2) Sodium Level 133mmol/L (136-145) Potassium Level 4.9mmol/L (3.5-5.1) Chloride Level 98mmol/L (98-107) Carbon Dioxide Level 23mmol/L (21-32) Anion Gap 12 (6-14) Blood Urea Nitrogen 89mg/dL (8-26) Creatinine 3.7mg/dL (0.7-1.3) Estimated GFR (Cockcroft-Gault) 17.0 Glucose Level 123mg/dL (70-99) Calcium Level 8.6mg/dL (8.5-10.1) Test 08/11/16 05:46 Glucose (Fingerstick) 111mg/dL (70-99) Microbiology 08/02/16 Blood Culture - Final, Complete NO GROWTH AFTER 5 DAYS 08/03/16 Sputum Culture - Final, Complete 08/03/16 Sputum Result 1 - Final, Complete 08/03/16 Sputum Result 2 - Final, Complete 08/03/16 Antimicrobic Susceptibility - Final, Complete 08/02/16 Urine Culture - Final, Complete 08/02/16 Urine Culture Result 1 (MILEY) - Final, Complete 08/03/16 Gram Stain - Final, Complete Medications Current Medications Nitroglycerin 0.4 mg 0.4 mg PRN Q5MIN PRN SL CP RATING > 04/26; Start 4/17 at 09:45; Stop 07/20/16 at 15:05; Status DC Nitroglycerin/ Dextrose (Nitroglycerin Drip) 250 ml @ 3 mls/hr 1X ONCE IV Last administered on 07/20/16 10:02; Start 07/20/16 at 10:30; Stop 07/23/16 at 21: 49; Status DC Morphine Sulfate 2 mg PRN Q15MIN PRN IV/SQ PAIN GREATER THAN 3/10; Start at 09:45; Stop 07/21/16 at 09:44; Status DC Ondansetron HCl (Zofran) 4 mg PRN Q8HRS PRN IV NAUSEA/VOMITING; Start 07/20/16 at 12:30; Stop 07/20/16 at 13:36; Status DC Morphine Sulfate 2 mg 2 mg PRN Q2HR PRN IV PAIN; Start 07/20/16 at 12:30; Stop 07/21/16 at 12:29; Status DC Heparin Sodium/ Dextrose 500 ml @ 0 mls/hr CONT PRN IV . Last administered on 10:32; Start 07/20/16 at 13:00; Stop 07/21/16 at 14:50; Status DC Metoprolol Tartrate (Lopressor) 5 mg Q6HRS IVP ; Start 07/20/16 at 13:00; Stop at 14:53; Status DC Aspirin (Ecotrin) 325 mg [id number] PO Last administered on 07/21/16 08:11; Start 07/20/16 at 13:00; Stop 07/21/16 at 17:20; Status DC Ondansetron HCl (Zofran) 4 mg PRN Q6HRS PRN IV NAUSEA/VOMITING; Start 07/20/16 at 13:35; Stop 07/26/16 at 11:41; Status DC Acetaminophen (Tylenol) 500 mg PRN Q6HRS PRN PO MILD PAIN / TEMP Last administered on 07/29/16 09:55; Start 07/20/16 at 13:45; Stop 07/29/16 at 13:38 ; Status DC Docusate Sodium (Colace) 100 mg DAILY PO Last administered on 07/29/16 09:54; Start 07/20/16 at 15:00; Stop 07/29/16 at 10:03; Status DC Iohexol 100 ml 100 ml STK-MED ONCE .ROUTE ; Start 07/20/16 at 12:40; Stop at 13:44; Status DC Heparin Sodium/ Sodium Chloride 1,000 ml @ As Directed STK-MED ONCE .ROUTE ; Start 07/20/16 at 12:41; Stop 07/20/16 at 13:44; Status DC Lidocaine HCl 20 ml STK-MED ONCE .ROUTE ; Start 07/20/16 at 12:41; Stop 07/20/16 at 13:44; Status DC Fentanyl Citrate (Fentanyl 2ml Vial) 100 mcg STK-MED ONCE .ROUTE ; Start at 13:42; Stop 07/20/16 at 13:45; Status DC Midazolam HCl (Versed) 2 mg STK-MED ONCE .ROUTE ; Start 07/20/16 at 13:42; Stop 07/20/16 at 13:45; Status DC Heparin Sodium/ Sodium Chloride 1,000 unit 1X ONCE IART Last administered on 14:29; Start 07/20/16 at 14:00; Stop 07/20/16 at 14:01; Status DC Heparin Sodium/ Sodium Chloride 1,000 unit 1X ONCE IART Last administered on 14:29; Start 07/20/16 at 14:00; Stop 07/20/16 at 14:01; Status DC Midazolam HCl (Versed) 2 mg 1X ONCE IV Last administered on 07/20/16 14:28; Start 07/20/16 at 14:00; Stop 07/20/16 at 14:01; Status DC Fentanyl Citrate (Fentanyl 2ml Vial) 100 mcg 1X ONCE IV Last administered on 14:28; Start 07/20/16 at 14:00; Stop 07/20/16 at 14:01; Status DC Iohexol (Omnipaque 300 Mg/ml) 100 ml 1X ONCE IART Last administered on 14:29; Start 07/20/16 at 14:00; Stop 07/20/16 at 14:01; Status DC Lidocaine HCl 20 ml 1X ONCE IJ Last administered on 07/20/16 14:29; Start 07/20 at 14:00; Stop 07/20/16 at 14:01; Status DC Midazolam HCl (Versed) 2 mg STK-MED ONCE .ROUTE ; Start 07/20/16 at 14:15; Stop 07/20/16 at 14:16; Status DC Sodium Chloride 3 ml 3 ml QSHIFT PRN IV AFTER MEDS AND BLOOD DRAWS; Start at 14:45; Stop 07/29/16 at 13:51; Status DC Sodium Chloride (Iv Sodium Chloride 0.9% 1000ml Bag) 1,000 ml @ 60 mls/hr [id number] IV Last administered on 07/20/16 14:44; Start 07/20/16 at 14:44; Stop at 00:43; Status DC Metoprolol Tartrate (Lopressor) 12.5 mg BID PO ; Start 07/20/16 at 21:00; Stop at 21:00; Status DC Lisinopril (Prinivil) 5 mg DAILY PO Last administered on 07/20/16 16:25; Start 07/20/16 at 15:00; Stop 07/20/16 at 17:21; Status DC Atorvastatin Calcium (Lipitor) 20 mg QHS PO Last administered on 07/20/16 20:33 ; Start 07/20/16 at 21:00; Stop 07/21/16 at 08:11; Status DC Nitroglycerin (Nitrostat) 0.4 mg PRN Q5MIN PRN SL CHEST PAIN Last administered on 07/25/16 04:55; Start 07/20/16 at 14:45; Stop 07/26/16 at 11:41; Status DC Hydralazine HCl (Apresoline) 10 mg PRN Q4HRS PRN IVP ELEVATED BP, SEE COMMENTS Last administered on 07/31/16 10:58; Start 07/20/16 at 17:15; Stop 07/31/16 at 13:31; Status DC Metoprolol Tartrate (Lopressor) 50 mg BID PO Last administered on 07/22/16 08: 31; Start 07/20/16 at 21:00; Stop 07/22/16 at 19:03; Status DC Alprazolam (Xanax) 0.25 mg PRN Q8HRS PRN PO ANXIETY / AGITATION Last administered on 07/24/16 21:34; Start 07/20/16 at 17:30; Stop 07/29/16 at 13:38; Status DC Heparin Sodium (Porcine) 2050 unit 2,050 unit PRN Q6HRS PRN IV FOR UFH LEVEL LESS THAN 0.2 Last administered on 07/21/16 04:24; Start 07/20/16 at 19:45; Stop 07/26/16 at 08:55; Status DC Heparin Sodium/ Dextrose 500 ml @ 19.4 mls/hr CONT PRN IV SEE I/O RECORD; Start 07/20/16 at 19:45; Stop 07/21/16 at 16:24; Status DC Heparin Sodium (Porcine) (Heparin Sodium) 2,050 unit PRN Q6HRS PRN IV FOR UFH LEVEL LESS THAN 0.2; Start 07/20/16 at 19:45; Status UNV Atorvastatin Calcium (Lipitor) 40 mg QHS PO Last administered on 08/10/16 21: 29; Start 07/21/16 at 21:00 Iodixanol (Visipaque 320) 200 ml [employer]-MED ONCE .ROUTE ; Start 07/20/16 at 14:00; Stop 07/21/16 at 08:26; Status DC Zolpidem Tartrate (Ambien) 5 mg PRN QHS PRN PO INSOMNIA, MAY REPEAT IN 1HR; Start 07/21/16 at 15:30; Stop 07/29/16 at 13:38; Status DC Metoprolol Tartrate 25 mg 25 mg 1X ONCE PO ; Start 07/22/16 at 06:00; Stop at 06:02; Status DC Cefazolin Sodium/ Dextrose 50 ml @ 100 mls/hr 1X ONCE IV ; Start 07/22/16 at 06 :00; Stop 07/22/16 at 06:29; Status DC Heparin Sodium/ Dextrose 500 ml @ 0 mls/hr CONT PRN IV SEE I/O RECORD Last administered on 07/24/16 01:40; Start 07/21/16 at 16:30; Stop 07/26/16 at 08:55; Status DC Lidocaine HCl 2 ml 2 ml 1X PRN PRN ID IV START; Start 07/25/16 at 06:00; Stop 07/26/16 at 05:59; Status Cancel Lactated Ringer's (Iv Lactated Ringers) 1,000 ml @ 0 mls/hr Q0M IV Last administered on 07/25/16t 07:30; Start 07/25/16 at 06:00; Stop 07/25/16 at 17:59 ; Status DC Fentanyl Citrate (Fentanyl 2ml Vial) 25 mcg PRN Q5MIN PRN IV Acute Pain; Start 07/22/16 at 09:15; Stop 07/23/16 at 09:14; Status DC Morphine Sulfate 2 mg PRN Q10MIN PRN IV Mild Pain; Start 07/22/16 at 09:15; Stop 07/23/16 at 09:14; Status DC Hydromorphone HCl (Dilaudid) 0.4 mg PRN Q10MIN PRN IV Moderate to severe pain; Start 07/22/16 at 09:15; Stop 07/23/16 at 09:14; Status DC Ondansetron HCl (Zofran) 4 mg PRN Q6HRS PRN IV Nausea, 1st Choice; Start at 09:15; Stop 07/23/16 at 09:14; Status DC Prochlorperazine Edisylate (Compazine) 5 mg PRN Q6HRS PRN IV Nausea/Vomiting, 2nd Choice; Start 07/22/16 at 09:15; Stop 07/23/16 at 09:14; Status DC Ondansetron HCl (Zofran) 4 mg PRN Q6HRS PRN IV NAUSEA/VOMITING; Start 07/25/16 at 07:00; Stop 07/26/16 at 06:59; Status DC Fentanyl Citrate (Fentanyl 2ml Vial) 25 mcg PRN Q5MIN PRN IV MILD PAIN; Start 07/25/16 at 07:00; Stop 07/26/16 at 06:59; Status DC Fentanyl Citrate (Fentanyl 2ml Vial) 50 mcg PRN Q5MIN PRN IV MODERATE PAIN; Start 07/25/16 at 07:00; Stop 07/26/16 at 06:59; Status DC Morphine Sulfate 1 mg 1 mg PRN Q10MIN PRN IV SEVERE PAIN; Start 07/25/16 at 07: 00; Stop 07/25/16 at 20:28; Status DC Lactated Ringer's (Iv Lactated Ringers) 1,000 ml @ 0 mls/hr Q0M IV ; Start 01/31 at 07:00; Stop 07/25/16 at 18:59; Status Cancel Lidocaine HCl 2 ml PRN 1X PRN ID PRIOR TO IV START Last administered on 07:16; Start 07/25/16 at 07:00; Stop 07/26/16 at 06:59; Status DC Hydromorphone HCl (Dilaudid) 0.5 mg PRN Q10MIN PRN IV SEV PAIN, Second choice; Start 07/25/16 at 07:00; Stop 07/26/16 at 06:59; Status DC Prochlorperazine Edisylate 5 mg 5 mg PACU PRN PRN IV NAUSEA, MRX1; Start at 07:00; Stop 07/26/16 at 06:59; Status DC Cefazolin Sodium/ Dextrose (Ancef 2gm Premix) 50 ml @ 100 mls/hr 1X ONCE IV Last administered on 07/25/16 08:12; Start 07/25/16 at 06:00; Stop 07/25/16 at 06:29; Status DC Metoprolol Tartrate (Lopressor) 25 mg 1X ONCE PO ; Start 07/25/16 at 06:00; Stop 07/25/16 at 06:00; Status DC Metoprolol Tartrate (Lopressor) 2.5 mg 1X ONCE IVP Last administered on 16:30; Start 07/22/16 at 16:30; Stop 07/22/16 at 16:31; Status DC Digoxin (Lanoxin) 250 mcg 1X ONCE IV ; Start 07/22/16 at 18:30; Stop 07/22/16 at 18:42; Status DC Digoxin (Lanoxin) 500 mcg 1X ONCE IV Last administered on 07/22/16 18:47; Start 07/22/16 at 18:45; Stop 07/22/16 at 18:46; Status DC Metoprolol Tartrate (Lopressor) 75 mg BID PO Last administered on 07/24/16 21: 30; Start 07/22/16 at 21:00; Stop 07/25/16 at 13:12; Status DC Nitroglycerin 0.4 mg 0.4 mg PRN Q5MIN PRN SL CHEST PAIN; Start 07/23/16 at 12:00 ; Status UNV Heparin Sodium (Porcine) 29794 unit/Lactated Ringer's 1,020 ml @ 1,020 mls/hr 1X PERIOP ONCE IRR Last administered on 07/25/16t 08:46; Start 07/25/16 at 06: 00; Stop 07/25/16 at 06:59; Status DC Potassium Chloride 70 meq/ Sodium Bicarbonate 12.5 meq/Lidocaine HCl 24 ml/ Parenteral Electrolytes 571.5 ml @ 571.5 mls/ hr 1X PERIOP ONCE IRR ; Start at 06:00; Stop 07/25/16 at 06:59; Status DC Potassium Chloride/Sodium Bicarbonate/ Parenteral Electrolytes (Isolyte S) 520 ml @ 520 mls/hr 1X PERIOP ONCE IRR ; Start 07/25/16 at 06:00; Stop 07/25/16 at 06:59; Status DC Etomidate (Amidate) 20 mg STK-MED ONCE IV ; Start 07/25/16 at 06:08; Stop at 06:09; Status DC Phenylephrine HCl (-Synephrine Inj) 10 mg STK-MED ONCE .ROUTE ; Start at 06:08; Stop 07/25/16 at 06:09; Status DC Aminocaproic Acid (Amicar) 5,000 mg STK-MED ONCE IV ; Start 07/25/16 at 06:08; Stop 07/25/16 at 06:09; Status DC Heparin Sodium (Porcine) (Heparin Sodium) 10,000 unit STK-MED ONCE .ROUTE ; Start 07/25/16 at 06:10; Stop 07/25/16 at 06:11; Status DC Rocuronium [place] (Zemuron) 100 mg STK-MED ONCE .ROUTE ; Start 07/25/16 at 06: 11; Stop 07/25/16 at 06:12; Status DC Morphine Sulfate 4 mg STK-MED ONCE .ROUTE ; Start 07/25/16 at 06:59; Stop at 07:00; Status DC Morphine Sulfate 4 mg 4 mg 1X ONCE IV ; Start 07/25/16 at 07:15; Stop 07/25/16 at 07:16; Status DC Cefazolin Sodium/ Sodium Chloride (Ancef/Iv Sodium Chloride 0.9% 500ml Bag) 500 ml @ 500 mls/hr 1X PERIOP ONCE IRR Last administered on 07/25/16 08:46; Start 07/25/16 at 07:15; Stop 07/25/16 at 08:14; Status DC Cellulose 1 each STK-MED ONCE .ROUTE Last administered on 07/25/16 08:46; Start 07/25/16 at 07:07; Stop 07/25/16 at 07:08; Status DC Vancomycin HCl (Vanco) 10 gm STK-MED ONCE .ROUTE Last administered on 08:46; Start 07/25/16 at 07:07; Stop 07/25/16 at 07:08; Status DC Papaverine HCl 60 mg STK-MED ONCE .ROUTE Last administered on 07/25/16 08:46; Start 07/25/16 at 07:07; Stop 07/25/16 at 07:08; Status DC Aspirin (Aspirin) 300 mg STK-MED ONCE .ROUTE Last administered on 07/25/16 17: 25; Start 07/25/16 at 07:08; Stop 07/25/16 at 07:09; Status DC Sodium Chloride (Sodium Chloride) 50 ml STK-MED ONCE IJ Last administered on 08:46; Start 07/25/16 at 07:08; Stop 07/25/16 at 07:09; Status DC Midazolam HCl (Versed) 2 mg STK-MED ONCE .ROUTE ; Start 07/25/16 at 07:15; Stop 07/25/16 at 07:16; Status DC Ephedrine Sulfate 50 mg 50 mg STK-MED ONCE IV ; Start 07/25/16 at 07:16; Stop at 07:17; Status DC Nitroglycerin/ Dextrose (Nitroglycerin Drip) 250 ml @ As Directed STK-MED ONCE IV ; Start 07/25/16 at 07:16; Stop 07/25/16 at 07:17; Status DC Midazolam HCl (Versed) 2 mg STK-MED ONCE .ROUTE ; Start 07/25/16 at 07:18; Stop 07/25/16 at 07:19; Status DC Fentanyl Citrate (Fentanyl 2ml Vial) 100 mcg STK-MED ONCE .ROUTE ; Start at 07:19; Stop 07/25/16 at 07:20; Status DC Sufentanil Citrate (Sufenta) 100 mcg STK-MED ONCE .ROUTE ; Start 07/25/16 at 07: 19; Stop 07/25/16 at 07:20; Status DC Midazolam HCl (Versed) 2 mg 1X ONCE IV ; Start 07/25/16 at 08:00; Stop at 08:01; Status DC Dexamethasone Sodium Phosphate (Decadron) 20 mg STK-MED ONCE .ROUTE ; Start 01/31 at 07:58; Stop 07/25/16 at 07:59; Status DC Rocuronium [place] (Zemuron) 100 mg STK-MED ONCE .ROUTE ; Start 07/25/16 at 08: 52; Stop 07/25/16 at 08:53; Status DC Sufentanil Citrate (Sufenta) 100 mcg STK-MED ONCE .ROUTE ; Start 07/25/16 at 08: 53; Stop 07/25/16 at 08:54; Status DC Protamine Sulfate 250 mg STK-MED ONCE IV ; Start 07/25/16 at 10:43; Stop at 10:44; Status DC Rocuronium [place] 100 mg 100 mg STK-MED ONCE .ROUTE ; Start 07/25/16 at 10:52; Stop 07/25/16 at 10:53; Status DC Albumin Human 0 ml @ As Directed STK-MED ONCE IV ; Start 07/25/16 at 10:53; Stop 07/25/16 at 10:54; Status DC Amiodarone HCl/ Dextrose (Cordarone) 518 ml @ 34.53 mls/ hr 1X ONCE IV Last administered on 07/25/16t 18:52; Start 07/25/16 at 11:30; Stop 07/26/16 at 02:30 ; Status DC Sodium Bicarbonate 50 meq STK-MED ONCE .ROUTE ; Start 07/25/16 at 11:35; Stop at 11:36; Status DC Protamine Sulfate 50 mg STK-MED ONCE IV ; Start 07/25/16 at 12:31; Stop at 12:32; Status DC Amiodarone HCl (Cordarone) 150 mg STK-MED ONCE .ROUTE ; Start 07/25/16 at 12:37 ; Stop 07/25/16 at 12:38; Status DC Isoflurane (Isoflurane) 90 ml STK-MED ONCE IH ; Start 07/25/16 at 12:42; Stop at 12:43; Status DC Lidocaine HCl (Lidocaine HCl 2% Abboject) 100 mg STK-MED ONCE .ROUTE ; Start 01/31 at 13:07; Stop 07/25/16 at 13:08; Status DC Mannitol (Mannitol) 12.5 g STK-MED ONCE .ROUTE ; Start 07/25/16 at 13:07; Stop 07/25/16 at 13:08; Status DC Calcium Chloride 1,000 mg STK-MED ONCE IV ; Start 07/25/16 at 13:07; Stop at 13:08; Status DC Sodium Bicarbonate 50 meq 50 meq STK-MED ONCE .ROUTE ; Start 07/25/16 at 13:07; Stop 07/25/16 at 13:08; Status DC Albumin Human (Albuminar) 100 ml @ As Directed STK-MED ONCE IV ; Start at 13:07; Stop 07/25/16 at 13:08; Status DC Magnesium Sulfate 5 gm STK-MED ONCE .ROUTE ; Start 07/25/16 at 13:08; Stop 07/25 at 13:09; Status DC Heparin Sodium (Porcine) 20509 unit 30,000 unit STK-MED ONCE .ROUTE ; Start 01/31 at 13:08; Stop 07/25/16 at 13:09; Status DC Clevidipine (Cleviprex) 100 ml @ 0 mls/hr CONT PRN IV PER PROTOCOL; Start 07/25 at 13:45; Stop 07/26/16 at 11:29; Status DC Heparin Sodium (Porcine) 29618 unit 30,000 unit STK-MED ONCE .ROUTE ; Start 01/31 at 13:39; Stop 07/25/16 at 13:40; Status DC Epinephrine HCl/ Sodium Chloride (Adrenalin/Iv Sodium Chloride 0.9% 250ml) 254 ml @ 3.81 mls/hr CONT PRN IV SEE I/O RECORD; Start 07/25/16 at 13:45; Stop at 13:38; Status DC Epinephrine HCl (Epinephrine Syringe) 1 mg STK-MED ONCE .ROUTE ; Start 07/25/16 at 13:52; Stop 07/25/16 at 13:53; Status DC Rocuronium [place] (Zemuron) 100 mg STK-MED ONCE .ROUTE ; Start 07/25/16 at 13: 57; Stop 07/25/16 at 13:58; Status DC Sodium Bicarbonate 50 meq 50 meq STK-MED ONCE .ROUTE ; Start 07/25/16 at 14:04; Stop 07/25/16 at 14:05; Status DC Procainamide HCl/ Dextrose (Pronestyl) 520 ml @ 15.6 mls/hr CONT PRN IV SEE I/ O RECORD; Start 07/25/16 at 14:30; Stop 07/28/16 at 15:22; Status DC Sodium Bicarbonate 50 meq STK-MED ONCE .ROUTE ; Start 07/25/16 at 14:31; Stop at 14:32; Status DC Sodium Bicarbonate 50 meq STK-MED ONCE .ROUTE ; Start 07/25/16 at 14:31; Stop at 14:32; Status DC Protamine Sulfate 50 mg STK-MED ONCE IV ; Start 07/25/16 at 15:13; Stop at 15:14; Status DC Protamine Sulfate 50 mg STK-MED ONCE IV ; Start 07/25/16 at 15:13; Stop at 15:14; Status DC Isoflurane 90 ml 90 ml STK-MED ONCE IH ; Start 07/25/16 at 15:13; Stop 07/25/16 at 15:14; Status DC Dobutamine HCl/ Dextrose 250 ml @ As Directed STK-MED ONCE IV ; Start 07/25/16 at 15:17; Stop 07/25/16 at 15:18; Status DC Iohexol 100 ml 100 ml STK-MED ONCE .ROUTE Last administered on 07/25/16t 15:39 ; Start 07/25/16 at 15:28; Stop 07/25/16 at 15:29; Status DC Norepinephrine Bitartrate 8 mg/ Sodium Chloride 258 ml @ 1.93 mls/hr 1X ONCE IV Last administered on 07/25/16 18:53; Start 07/25/16 at 16:00; Stop at 08:04; Status DC Albumin Human (Plasmanate) 1,000 ml @ As Directed STK-MED ONCE IV ; Start 07/25 at 16:11; Stop 07/25/16 at 16:12; Status DC Heparin Sodium (Porcine) (Heparin Sodium) 10,000 unit STK-MED ONCE .ROUTE ; Start 07/25/16 at 16:19; Stop 07/25/16 at 16:20; Status DC Lidocaine HCl (Lidocaine HCl 2% Abboject) 100 mg STK-MED ONCE .ROUTE ; Start 01/31 at 16:19; Stop 07/25/16 at 16:20; Status DC Mannitol (Mannitol) 12.5 g STK-MED ONCE .ROUTE ; Start 07/25/16 at 16:19; Stop 07/25/16 at 16:20; Status DC Calcium Chloride 1,000 mg STK-MED ONCE IV ; Start 07/25/16 at 16:19; Stop at 16:20; Status DC Sodium Bicarbonate 50 meq STK-MED ONCE .ROUTE ; Start 07/25/16 at 16:19; Stop at 16:20; Status DC Magnesium Sulfate 5 gm STK-MED ONCE .ROUTE ; Start 07/25/16 at 16:19; Stop 07/25 at 16:20; Status DC Heparin Sodium (Porcine) (Heparin Sodium) 10,000 unit STK-MED ONCE .ROUTE ; Start 07/25/16 at 16:20; Stop 07/25/16 at 16:21; Status DC Lidocaine HCl (Lidocaine HCl 2% Abboject) 100 mg STK-MED ONCE .ROUTE ; Start 01/31 at 16:20; Stop 07/25/16 at 16:21; Status DC Aminocaproic Acid (Amicar) 5,000 mg STK-MED ONCE IV ; Start 07/25/16 at 16:20; Stop 07/25/16 at 16:21; Status DC Mannitol (Mannitol) 12.5 g STK-MED ONCE .ROUTE ; Start 07/25/16 at 16:20; Stop 07/25/16 at 16:21; Status DC Sodium Bicarbonate 50 meq 50 meq STK-MED ONCE .ROUTE ; Start 07/25/16 at 16:20; Stop 07/25/16 at 16:21; Status DC Albumin Human (Albuminar) 100 ml @ As Directed STK-MED ONCE IV ; Start at 16:20; Stop 07/25/16 at 16:21; Status DC Rocuronium [place] (Zemuron) 50 mg STK-MED ONCE .ROUTE ; Start 07/25/16 at 16:33 ; Stop 07/25/16 at 16:34; Status DC Rocuronium [place] (Zemuron) 50 mg STK-MED ONCE .ROUTE ; Start 07/25/16 at 16:33 ; Stop 07/25/16 at 16:34; Status DC Protamine Sulfate 50 mg STK-MED ONCE IV ; Start 07/25/16 at 16:34; Stop at 16:35; Status DC Sodium Bicarbonate 50 meq STK-MED ONCE .ROUTE ; Start 07/25/16 at 16:36; Stop at 16:37; Status DC Calcium Chloride 1,000 mg STK-MED ONCE IV ; Start 07/25/16 at 16:41; Stop at 16:42; Status DC Epinephrine HCl (Epinephrine Syringe) 1 mg STK-MED ONCE .ROUTE ; Start 07/25/16 at 16:41; Stop 07/25/16 at 16:42; Status DC Sodium Bicarbonate 50 meq STK-MED ONCE .ROUTE ; Start 07/25/16 at 16:52; Stop at 16:53; Status DC Sodium Bicarbonate 50 meq STK-MED ONCE .ROUTE ; Start 07/25/16 at 16:52; Stop at 16:53; Status DC Sodium Bicarbonate 50 meq STK-MED ONCE .ROUTE ; Start 07/25/16 at 16:52; Stop at 16:53; Status DC Vasopressin (Vasostrict) 20 unit STK-MED ONCE .ROUTE ; Start 07/25/16 at 16:54; Stop 07/25/16 at 16:55; Status DC Famotidine (Pepcid) 20 mg STK-MED ONCE .ROUTE ; Start 07/25/16 at 16:56; Stop at 16:57; Status DC Dexamethasone Sodium Phosphate (Decadron) 20 mg STK-MED ONCE .ROUTE ; Start 01/31 at 16:56; Stop 07/25/16 at 16:57; Status DC Diphenhydramine HCl 50 mg 50 mg STK-MED ONCE .ROUTE ; Start 07/25/16 at 16:56; Stop 07/25/16 at 16:57; Status DC Vasopressin/ Dextrose (Vasostrict) 102 ml @ 6 mls/hr CONT PRN IV SEE I/O RECORD Last administered on 08/03/16 18:28; Start 07/25/16 at 17:15; Stop 08/08 at 14:02; Status DC Sodium Bicarbonate 50 meq STK-MED ONCE .ROUTE ; Start 07/25/16 at 17:24; Stop at 17:25; Status DC Sodium Bicarbonate 50 meq 50 meq STK-MED ONCE .ROUTE ; Start 07/25/16 at 17:24; Stop 07/25/16 at 17:25; Status DC Cefazolin Sodium/ Dextrose (Ancef 2gm Premix) 50 ml @ As Directed STK-MED ONCE IV ; Start 07/25/16 at 17:32; Stop 07/25/16 at 17:33; Status DC Sodium Chloride 3 ml 3 ml PRN Q12HR PRN IV AFTER MEDS AND BLOOD DRAWS; Start at 17:30; Stop 07/29/16 at 13:38; Status DC Lactated Ringer's 1,000 ml @ 15 mls/hr Q24H IV Last administered on 07/29/16 16:45; Start 07/25/16 at 17:30; Stop 07/31/16 at 15:33; Status DC Insulin Human Regular/Sodium Chloride (Novolin R Vial/ Iv Normal Saline 150ml) 151.5 ml @ 0 mls/hr CONT PRN PRN IV SEE I/O RECORD Last administered on 03:03; Start 07/25/16 at 17:30; Stop 07/29/16 at 13:51; Status DC Dextrose 25 gm 25 gm PRN Q15MIN PRN IV LOW BLOOD SUGAR; Start 07/25/16 at 17:30 ; Stop 07/29/16 at 13:51; Status DC Dopamine HCl/ Dextrose 250 ml @ 0 mls/hr CONT PRN PRN IV SEE I/O RECORD; Start 07/25/16 at 17:30; Stop 07/26/16 at 11:41; Status DC Amiodarone HCl/ Dextrose (Cordarone) 518 ml @ 33.33 mls/ hr CONT PRN PRN IV SEE COMMENTS; Start 07/25/16 at 17:30; Status UNV Info 1 ea CONT PRN PRN MC SEE COMMENTS; Start 07/25/16 at 17:30; Stop 08/03/16 at 12:57; Status DC Info 1 ea 1 ea CONT PRN PRN MC SEE COMMENTS; Start 07/25/16 at 17:30; Stop at 13:38; Status DC Magnesium Sulfate/ Dextrose (Magnesium Sulfate PREMIX 1GM) 100 ml @ 100 mls/hr PRN DAILY PRN IV FOR MAG < 2.2 Last administered on 07/27/16 10:59; Start 01/31 at 17:30; Stop 08/08/16 at 13:38; Status DC Famotidine (Pepcid) 20 mg BID IVP Last administered on 08/03/16 09:15; Start 07/25/16 at 21:00; Stop 08/03/16 at 15:28; Status DC Metoclopramide HCl (Reglan) 10 mg PRN Q6HRS PRN IV NAUSEA/VOMITING Last administered on 08/07/16 07:26; Start 07/25/16 at 17:30; Stop 08/08/16 at 13:39 ; Status DC Morphine Sulfate 2 mg PRN Q1HR PRN IV PAIN Last administered on 07/28/16 14:21 ; Start 07/25/16 at 17:30; Stop 07/29/16 at 13:38; Status DC Acetaminophen (Tylenol) 650 mg PRN Q4HRS PRN PO MILD PAIN / TEMP; Start at 17:30; Stop 07/29/16 at 13:38; Status DC Acetaminophen (Acetaminophen Supp) 650 mg PRN Q4HRS PRN [place] MILD PAIN / TEMP Last administered on 08/03/16 01:04; Start 07/25/16 at 17:30 Meperidine HCl 12.5 mg 12.5 mg PRN Q15MIN PRN IV SHIVERING; Start 07/25/16 at 17:30; Stop 07/29/16 at 13:38; Status DC Propofol (Diprivan) 100 ml @ 0 mls/hr CONT PRN PRN IV POSTOP SEDATION UNTIL EXTUBATE; Start 07/25/16 at 17:30; Stop 07/28/16 at 15:22; Status DC Aspirin (Ecotrin) 325 mg DAILYWBKFT PO Last administered on 07/29/16 09:54; Start 07/26/16 at 08:00; Stop 07/29/16 at 09:59; Status DC Aspirin (Aspirin) 300 mg PRN DAILY PRN [place] IF UNABLE TO TAKE PO; Start 07/25/16 at 17:30; Stop 07/26/16 at 12:00; Status DC Acetaminophen/ Hydrocodone Bitart (Lortab 5/325) 1 tab PRN Q4HRS PRN PO MILD PAIN; Start 07/25/16 at 17:30; Stop 08/03/16 at 12:24; Status DC Acetaminophen/ Hydrocodone Bitart 2 tab 2 tab PRN Q4HRS PRN PO MODERATE PAIN, SEVERE PAIN; Start 07/25/16 at 17:30; Stop 08/03/16 at 12:24; Status DC Cefazolin Sodium/ Dextrose 50 ml @ 100 mls/hr Q8H IV ; Start 07/25/16 at 18:00 ; Stop 07/25/16 at 21:42; Status DC Albumin Human 250 ml @ 62.5 mls/hr 1X ONCE IV Last administered on 07/27/16 17:52; Start 07/25/16 at 17:30; Stop 07/25/16 at 21:29; Status DC Midazolam HCl 100 ml @ As Directed STK-MED ONCE IV ; Start 07/25/16 at 18:06; Stop 07/25/16 at 18:07; Status DC Midazolam HCl 100 ml @ 0 mls/hr CONT PRN IV SEE I/O RECORD Last administered on 07/25/16 18:56; Start 07/25/16 at 18:15; Stop 07/26/16 at 08:59; Status DC Vancomycin HCl 1 gm/Sodium Chloride 250 ml @ 250 mls/hr 1X ONCE IV Last administered on 07/25/16 20:56; Start 07/25/16 at 18:15; Stop 07/25/16 at 19:14 ; Status DC Piperacillin Sod/ Tazobactam Sod/ Sodium Chloride (Zosyn/Iv Sodium Chloride 0.9 % 50ml) 50 ml @ 100 mls/hr Q6HRS IV Last administered on 07/31/16 05:32; Start 07/25/16 at 18:15; Stop 07/31/16 at 10:25; Status DC Midazolam HCl (Versed) 2 mg PRN Q20MIN PRN IV SEDATION; Start 07/25/16 at 18:15 ; Stop 07/25/16 at 18:39; Status DC Midazolam HCl 5 mg 5 mg PRN Q30MIN PRN IV SEDATION; Start 07/25/16 at 18:15; Stop 07/25/16 at 18:39; Status DC Vecuronium [place] 100 mg/ Dextrose 100 ml @ 0 mls/hr 1X ONCE IV Last administered on 07/25/16 19:43; Start 07/25/16 at 18:15; Stop 07/25/16 at 18:17 ; Status DC Midazolam HCl 100 ml @ 0 mls/hr CONT PRN IV SEE I/O RECORD Last administered on 07/28/16 19:40; Start 07/25/16 at 18:45; Stop 08/09/16 at 18:00; Status DC Dobutamine HCl/ Dextrose 250 ml @ 0 mls/hr CONT PRN IV SEE I/O RECORD Last administered on 07/29/16 03:10; Start 07/25/16 at 18:45; Stop 07/29/16 at 13:38 ; Status DC Potassium Chloride 50 ml @ 50 mls/hr Q1H IV Last administered on 07/25/16 22: 58; Start 07/25/16 at 21:00; Stop 07/25/16 at 23:59; Status DC Cefazolin Sodium/ Dextrose 50 ml @ 100 mls/hr Q8H IV Last administered on 07/27 05:34; Start 07/25/16 at 22:00; Stop 07/27/16 at 06:29; Status DC Heparin Sodium (Porcine) 10584 unit/Dextrose 512.5 ml @ 0 mls/hr Q0M ONCE IV Last administered on 07/25/16 22:21; Start 07/25/16 at 22:15; Stop 07/25/16 at 22:16; Status DC Vecuronium [place]/Dextrose (Norcuron) 100 ml @ 0 mls/hr CONT PRN IV SEE I/O RECORD Last administered on 07/26/16 01:07; Start 07/26/16 at 00:45; Stop 07/29 at 13:38; Status DC Dextrose 25 gm 25 gm 1X ONCE IV Last administered on 07/26/16 01:08; Start at 01:00; Stop 07/26/16 at 01:18; Status DC Amiodarone HCl/ Dextrose (Cordarone) 259 ml @ 17.26 mls/ hr CONT PRN IV SEE I/ O RECORD Last administered on 07/30/16 13:02; Start 07/26/16 at 06:45; Stop at 15:33; Status DC Cefazolin Sodium/ Dextrose 2 gm 2 gm STK-MED ONCE IV ; Start 07/25/16 at 11:00; Stop 07/26/16 at 08:53; Status DC Lactated Ringer's 500 ml @ 5,000 mls/hr PRN Q10MIN PRN IV CVP <14; Start 07/26 at 10:00; Stop 07/29/16 at 13:38; Status DC Fentanyl Citrate (Fentanyl 600 Mcg/30 ml [employer]) 30 ml @ 0 mls/hr CONT PRN IV PROTOCOL Last administered on 07/31/16 09:12; Start 07/26/16 at 10:00; Stop at 13:31; Status DC Fentanyl Citrate (Fentanyl 2ml Vial) 25 mcg PRN Q1HR PRN IV COMM; Start at 10:00; Stop 07/29/16 at 13:38; Status DC Fentanyl Citrate (Fentanyl 2ml Vial) 50 mcg PRN Q1HR PRN IV COMM; Start at 10:00; Stop 07/29/16 at 13:38; Status DC Chlorhexidine Gluconate (Peridex) 15 ml BID MM Last administered on 08/09/16 07:46; Start 07/26/16 at 10:30; Stop 08/09/16 at 18:00; Status DC Sulfur Hexafluoride Microspheres ([place]ason) 25 mg STK-MED ONCE IVP ; Start at 11:29; Stop 07/26/16 at 11:30; Status DC Aspirin 300 mg 300 mg DAILY [place] Last administered on 07/28/16 07:55; Start 03/03 at 12:00; Stop 07/29/16 at 19:10; Status DC Potassium Chloride (KCl Premix 20meq) 50 ml @ 50 mls/hr 1X ONCE IV Last administered on 07/26/16 12:55; Start 07/26/16 at 12:00; Stop 07/26/16 at 12:59 ; Status DC Sulfur Hexafluoride Microspheres (Lumason) 25 mg 1X ONCE IVP Last administered on 07/26/16 11:45; Start 07/26/16 at 11:45; Stop 07/26/16 at 11:50 ; Status DC Multi-Ingred Cream/Lotion/Oil/ Oint (Artificial Tears Eye Oint) 1 adri BID OU Last administered on 08/09/16 07:46; Start 07/26/16 at 21:00 Ondansetron HCl (Zofran) 4 mg PRN Q6HRS PRN IV NAUSEA/VOMITING; Start 07/27/16 at 07:00; Stop 07/28/16 at 06:59; Status DC Fentanyl Citrate (Fentanyl 2ml Vial) 25 mcg PRN Q5MIN PRN IV MILD PAIN; Start 07/27/16 at 07:00; Stop 07/28/16 at 06:59; Status DC Fentanyl Citrate (Fentanyl 2ml Vial) 50 mcg PRN Q5MIN PRN IV MODERATE PAIN; Start 07/27/16 at 07:00; Stop 07/28/16 at 06:59; Status DC Morphine Sulfate 1 mg 1 mg PRN Q10MIN PRN IV SEVERE PAIN; Start 07/27/16 at 07: 00; Stop 07/28/16 at 06:59; Status DC Lactated Ringer's (Iv Lactated Ringers) 1,000 ml @ 30 mls/hr Q24H IV Last administered on 07/26/16 17:25; Start 07/27/16 at 07:00; Stop 07/27/16 at 18:59 ; Status DC Lidocaine HCl 2 ml PRN 1X PRN ID PRIOR TO IV START; Start 07/27/16 at 07:00; Stop 07/28/16 at 06:59; Status DC Hydromorphone HCl (Dilaudid) 0.5 mg PRN Q10MIN PRN IV SEV PAIN, Second choice; Start 07/27/16 at 07:00; Stop 07/28/16 at 06:59; Status DC Prochlorperazine Edisylate 5 mg 5 mg PACU PRN PRN IV NAUSEA, MRX1; Start at 07:00; Stop 07/28/16 at 06:59; Status DC Heparin Sodium (Porcine) 39619 unit/Dextrose 512.5 ml @ 0 mls/hr Q0M ONCE IV Last administered on 07/26/16 19:40; Start 07/26/16 at 18:30; Stop 07/26/16 at 18:31; Status DC Amiodarone HCl 150 mg/Dextrose 103 ml @ 618 mls/hr 1X ONCE IV Last administered on 07/26/16 19:25; Start 07/26/16 at 19:15; Stop 07/26/16 at 19:24 ; Status DC Norepinephrine Bitartrate 8 mg/ Sodium Chloride 258 ml @ 1.93 mls/hr CONT PRN IV SEE I/O RECORD Last administered on 08/03/16 11:12; Start 07/26/16 at 19:15 ; Stop 08/09/16 at 18:00; Status DC Amiodarone HCl 900 mg/Dextrose 518 ml @ 0 mls/hr CONT PRN IV PER PROTOCOL; Start 07/26/16 at 19:15; Stop 07/27/16 at 12:11; Status DC Milrinone Lactate/ Dextrose 100 ml @ 0 mls/hr CONT PRN IV SEE I/O RECORD Last administered on 07/26/16 20:03; Start 07/26/16 at 19:45; Stop 07/29/16 at 13:51 ; Status DC Calcium Chloride/ Sodium Chloride (Iv Sodium Chloride 0.9% 100ml) 120 ml @ 240 mls/hr 1X ONCE IV Last administered on 07/26/16 21:04; Start 07/26/16 at 21: 30; Stop 07/26/16 at 21:59; Status DC Digoxin 500 mcg 500 mcg 1X ONCE IV Last administered on 07/26/16 21:55; Start 07/26/16 at 21:45; Stop 07/26/16 at 21:46; Status DC Cefazolin Sodium/ Sodium Chloride (Ancef/Iv Sodium Chloride 0.9% 500ml Bag) 500 ml @ 500 mls/hr 1X PERIOP ONCE IRR Last administered on 07/27/16 14:37; Start 07/27/16 at 10:00; Stop 07/27/16 at 10:59; Status DC Vancomycin HCl (Vanco) 10 gm 1X ONCE CEMENT Last administered on 07/27/16 14: 37; Start 07/27/16 at 12:30; Stop 07/27/16 at 12:31; Status DC Rocuronium [place] (Zemuron) 100 mg STK-MED ONCE .ROUTE ; Start 07/27/16 at 12: 32; Stop 07/27/16 at 12:33; Status DC Lorazepam (Ativan) 2 mg STK-MED ONCE .ROUTE ; Start 07/27/16 at 14:13; Stop 04/02 at 14:14; Status DC Phenylephrine HCl 1 mg 1 mg STK-MED ONCE IV ; Start 07/27/16 at 14:18; Stop 04/02 at 14:19; Status DC Albumin Human (Plasmanate) 250 ml @ 62.5 mls/hr 1X ONCE IV Last administered on 07/27/16 17:52; Start 07/27/16 at 17:15; Stop 07/27/16 at 21:14; Status DC Sodium Bicarbonate 50 meq STK-MED ONCE .ROUTE ; Start 07/27/16 at 17:39; Stop at 17:40; Status DC Sodium Bicarbonate 50 meq 1X ONCE IV Last administered on 07/27/16 17:51; Start 07/27/16 at 18:00; Stop 07/27/16 at 18:01; Status DC Sodium Bicarbonate 50 meq 1X ONCE IV Last administered on 07/27/16 17:52; Start 07/27/16 at 18:00; Stop 07/27/16 at 18:01; Status DC Fentanyl Citrate (Fentanyl 2ml Vial) 25 mcg PRN Q5MIN PRN IV MILD PAIN; Start 07/28/16 at 07:00; Stop 07/29/16 at 06:59; Status DC Fentanyl Citrate (Fentanyl 2ml Vial) 50 mcg PRN Q5MIN PRN IV MODERATE PAIN; Start 07/28/16 at 07:00; Stop 07/29/16 at 06:59; Status DC Morphine Sulfate 1 mg 1 mg PRN Q10MIN PRN IV SEVERE PAIN; Start 07/28/16 at 07: 00; Stop 07/29/16 at 06:59; Status DC Lactated Ringer's (Iv Lactated Ringers) 1,000 ml @ 30 mls/hr Q24H IV Last administered on 07/28/16 06:49; Start 07/28/16 at 06:49; Stop 07/28/16 at 18:48 ; Status DC Lidocaine HCl 2 ml PRN 1X PRN ID PRIOR TO IV START; Start 07/28/16 at 07:00; Stop 07/29/16 at 06:59; Status DC Hydromorphone HCl (Dilaudid) 0.5 mg PRN Q10MIN PRN IV SEV PAIN, Second choice; Start 07/28/16 at 07:00; Stop 07/29/16 at 06:59; Status DC Rocuronium [place] 50 mg 50 mg STK-MED ONCE .ROUTE ; Start 07/28/16 at 07:27; Stop 07/28/16 at 07:28; Status DC Cefazolin Sodium/ Sodium Chloride (Ancef/Iv Sodium Chloride 0.9% 500ml Bag) 500 ml @ 500 mls/hr 1X PERIOP ONCE IRR Last administered on 07/28/16 09:25; Start 07/28/16 at 08:00; Stop 07/28/16 at 08:59; Status DC Cellulose 1 each STK-MED ONCE .ROUTE ; Start 07/28/16 at 07:42; Stop 07/28/16 at 07:43; Status DC Bupivacaine HCl/ Epinephrine Bitart 50 ml 50 ml STK-MED ONCE .ROUTE ; Start at 07:42; Stop 07/28/16 at 07:43; Status DC Heparin Sodium (Porcine)/Sodium Chloride (Heparin Sodium/ Iv Sodium Chloride 0.9 % 500ml Bag) 505 ml @ 505 mls/hr 1X PERIOP ONCE IRR Last administered on 07/28 10:19; Start 07/28/16 at 08:15; Stop 07/28/16 at 09:14; Status DC Lorazepam 2 mg 2 mg STK-MED ONCE .ROUTE ; Start 07/28/16 at 08:29; Stop at 08:30; Status DC Magnesium Sulfate/ Dextrose (Magnesium Sulfate PREMIX 1GM) 100 ml @ 100 mls/hr 1X ONCE IV Last administered on 07/28/16t 13:09; Start 07/28/16 at 09:00; Stop 07/28/16 at 09:59; Status DC Vasopressin (Vasostrict) 20 unit STK-MED ONCE .ROUTE ; Start 07/28/16 at 09:03; Stop 07/28/16 at 09:04; Status DC Epinephrine HCl (Epinephrine Syringe) 1 mg STK-MED ONCE .ROUTE ; Start 07/28/16 at 09:09; Stop 07/28/16 at 09:10; Status DC Calcium Chloride 1,000 mg STK-MED ONCE IV ; Start 07/28/16 at 09:09; Stop at 09:10; Status DC Phenylephrine HCl 1 mg STK-MED ONCE IV ; Start 07/28/16 at 09:54; Stop 07/28/16 at 09:55; Status DC Sevoflurane 60 ml 60 ml STK-MED ONCE IH ; Start 07/28/16 at 09:54; Stop at 09:55; Status DC Epinephrine HCl/ Sodium Chloride (Adrenalin/Iv Sodium Chloride 0.9% 250ml) 254 ml @ 3.81 mls/hr 1X ONCE IV ; Start 07/28/16 at 10:00; Stop 07/29/16 at 19:10 ; Status DC Heparin Sodium (Porcine) 76017 unit 10,000 unit STK-MED ONCE .ROUTE ; Start at 09:57; Stop 07/28/16 at 09:58; Status DC Albumin Human (Plasmanate) 500 ml @ As Directed STK-MED ONCE IV ; Start at 09:57; Stop 07/28/16 at 09:58; Status DC Iohexol 100 ml 100 ml STK-MED ONCE .ROUTE ; Start 07/28/16 at 10:39; Stop at 10:40; Status DC Heparin Sodium/ Sodium Chloride 500 ml @ As Directed STK-MED ONCE .ROUTE ; Start 07/28/16 at 10:39; Stop 07/28/16 at 10:40; Status DC Iohexol 100 ml 100 ml STK-MED ONCE .ROUTE ; Start 07/28/16 at 10:43; Stop at 10:44; Status DC Heparin Sodium/ Sodium Chloride 500 ml @ As Directed STK-MED ONCE .ROUTE ; Start 07/28/16 at 11:21; Stop 07/28/16 at 11:22; Status DC Albuterol Sulfate (Ventolin Neb Soln) 2.5 mg RTQID NEB Last administered on 08:46; Start 07/28/16 at 12:00; Stop 07/30/16 at 17:05; Status DC Furosemide (Lasix) 40 mg 1X ONCE IVP Last administered on 07/28/16 13:16; Start 07/28/16 at 13:15; Stop 07/28/16 at 13:16; Status DC Furosemide (Lasix) 40 mg 1X ONCE IVP Last administered on 07/28/16 13:19; Start 07/28/16 at 14:00; Stop 07/28/16 at 14:01; Status DC Heparin Sodium/ Sodium Chloride 1000 unit 1,000 unit CONT PRN IV ART LINE FLUSH Last administered on 08/02/16 06:47; Start 07/28/16 at 14:45; Stop at 13:39; Status DC Albumin Human 250 ml @ 62.5 mls/hr PRN Q1HR PRN IV SEE COMMENTS Last administered on 08/02/16 16:12; Start 07/28/16 at 15:15; Stop 08/09/16 at 08:10 ; Status DC Furosemide 100 mg/ Sodium Chloride 100 ml @ 5 mls/hr CONT PRN IV SEE I/O RECORD Last administered on 07/30/16 09:50; Start 07/28/16 at 15:30; Stop 07/31 at 13:31; Status DC Potassium Chloride 50 ml @ 50 mls/hr Q1H IV Last administered on 07/28/16 19: 39; Start 07/28/16 at 18:30; Stop 07/28/16 at 20:29; Status DC Potassium Chloride (KCl Premix 20meq) 50 ml @ 50 mls/hr Q1H IV Last administered on 07/29/16 09:36; Start 07/29/16 at 07:00; Stop 07/29/16 at 08:59 ; Status DC Lorazepam (Ativan) 2 mg STK-MED ONCE .ROUTE ; Start 07/28/16 at 08:30; Stop at 08:16; Status DC Aspirin (Arti Aspirin) 325 mg DAILYWBKFT PO Last administered on 08/11/16 09: 40; Start 07/30/16 at 08:00 Docusate Sodium 100 mg 100 mg DAILY PO Last administered on 07/31/16 07:59; Start 07/30/16 at 09:00; Stop 07/31/16 at 11:00; Status DC Dobutamine HCl/ Dextrose 250 ml @ 12.1 mls/hr CONT PRN IV PER PROTOCOL Last administered on 08/02/16 18:03; Start 07/29/16 at 13:30; Stop 08/08/16 at 13:39 ; Status DC Potassium Chloride 50 ml @ 50 mls/hr Q1H IV Last administered on 07/29/16 22: 39; Start 07/29/16 at 20:00; Stop 07/29/16 at 22:59; Status DC Potassium Chloride (KCl Premix 20meq) 50 ml @ 50 mls/hr Q1H IV Last administered on 07/30/16 09:19; Start 07/30/16 at 07:00; Stop 07/30/16 at 08:59 ; Status DC Ipratropium [place] (Atrovent) 0.5 mg RTQID NEB Last administered on 08/11/16 11:48; Start 07/30/16 at 12:30 Digoxin 500 mcg 500 mcg 1X ONCE IV Last administered on 07/30/16 13:01; Start 07/30/16 at 12:15; Stop 07/30/16 at 12:19; Status DC Dexmedetomidine HCl/Sodium Chloride (Precedex/Iv Sodium Chloride 0.9% 50ml) 50 ml @ 0 mls/hr CONT PRN IV PER PROTOCOL Last administered on 08/04/16 05:20; Start 07/30/16 at 13:30; Stop 08/08/16 at 14:02; Status DC Atropine Sulfate 0.5 mg PRN Q5MIN PRN IV SEE COMMENTS; Start 07/30/16 at 13:30 Amiodarone HCl (Cordarone) 400 mg ONCE ONCE PO Last administered on 07/30/16 15:01; Start 07/30/16 at 13:30; Stop 07/30/16 at 13:46; Status DC Amiodarone HCl (Cordarone) 400 mg BID PO Last administered on 08/08/16 10:54; Start 07/30/16 at 21:00; Stop 08/08/16 at 14:02; Status DC Digoxin 125 mcg 125 mcg DAILY IV Last administered on 08/02/16 08:56; Start at 09:00; Stop 08/03/16 at 14:27; Status DC Albumin Human (Albuminar) 50 ml @ 50 mls/hr 1X ONCE IV Last administered on 16:26; Start 07/30/16 at 16:30; Stop 07/30/16 at 17:29; Status DC Ibuprofen (Motrin) 200 mg PRN Q6HRS PRN PO fever; Start 07/30/16 at 19:45; Stop 08/01/16 at 12:22; Status DC Metoprolol Tartrate (Lopressor) 2.5 mg 1X ONCE IVP Last administered on 20:23; Start 07/30/16 at 20:30; Stop 07/30/16 at 20:31; Status DC Metoprolol Tartrate 5 mg 5 mg PRN Q2HR PRN IVP HYPERTENSION Last administered on 08/04/16 22:09; Start 07/30/16 at 22:30; Stop 08/09/16 at 18:00; Status DC Potassium Chloride (KCl Premix 20meq) 50 ml @ 50 mls/hr Q1H IV Last administered on 07/31/16 09:04; Start 07/31/16 at 07:00; Stop 07/31/16 at 08:59 ; Status DC Metoprolol Tartrate (Lopressor) 12.5 mg BID NG Last administered on 08/11/16 09:41; Start 07/31/16 at 10:00 Docusate Sodium (Colace Solution) 100 mg PRN DAILY PRN PO constipation Last administered on 08/01/16 08:40; Start 07/31/16 at 11:00; Stop 08/08/16 at 13:39 ; Status DC Hydralazine HCl (Apresoline) 10 mg PRN Q2HRS PRN IVP ELEVATED BP, SEE COMMENTS Last administered on 08/01/16 16:35; Start 07/31/16 at 13:30 Fentanyl Citrate (Fentanyl 2ml Vial) 50 mcg PRN Q2HR PRN IV PAIN Last administered on 08/02/16 12:57; Start 07/31/16 at 13:45 Furosemide (Lasix) 40 mg TID IVP Last administered on 08/02/16 05:49; Start at 14:00; Stop 08/02/16 at 15:33; Status DC Alteplase, Recombinant (Cathflo) 2 mg 1X ONCE INT CAT Last administered on 23:34; Start 07/31/16 at 23:15; Stop 07/31/16 at 23:16; Status DC Haloperidol Lactate (Haldol) 5 mg PRN Q6HRS PRN IVP MODERATE AGITATION Last administered on 08/07/16 07:26; Start 08/01/16 at 21:00 Haloperidol Lactate 10 mg 10 mg PRN Q6HRS PRN IVP SEVERE AGITATION Last administered on 08/07/16 21:04; Start 08/01/16 at 23:45 Propofol 100 ml @ 0 mls/hr CONT PRN IV SEE I/O RECORD Last administered on 08/02 11:43; Start 08/02/16 at 02:45; Stop 08/08/16 at 14:02; Status DC Piperacillin Sod/ Tazobactam Sod/ Sodium Chloride (Zosyn/Iv Sodium Chloride 0.9 % 50ml) 50 ml @ 100 mls/hr Q6HRS IV Last administered on 08/02/16 13:17; Start 08/02/16 at 12:00; Stop 08/02/16 at 15:43; Status DC Vancomycin HCl 1 each 1 each PRN DAILY PRN MC SEE COMMENTS Last administered on 08/02/16 13:20; Start 08/02/16 at 11:45; Stop 08/03/16 at 15:24; Status DC Vancomycin HCl 2 gm/Sodium Chloride 500 ml @ 250 mls/hr 1X ONCE IV Last administered on 08/02/16 11:52; Start 08/02/16 at 12:00; Stop 08/02/16 at 13:59 ; Status DC Sodium Chloride (Iv Sodium Chloride 0.9% 500ml Bag) 500 ml @ 500 mls/hr 1X ONCE IV Last administered on 08/02/16 12:39; Start 08/02/16 at 12:45; Stop at 13:44; Status DC Vecuronium [place] (Norcuron Bolus) 10 mg 1X STAT IV Last administered on 08/02 13:34; Start 08/02/16 at 13:17; Stop 08/02/16 at 13:23; Status DC Vancomycin HCl 1 each 1 each 1X ONCE MC ; Start 08/03/16 at 23:30; Stop at 23:30; Status DC Vancomycin HCl 1.25 gm/Sodium Chloride 250 ml @ 167 mls/hr Q12H IV Last administered on 08/03/16 00:33; Start 08/03/16 at 00:00; Stop 08/03/16 at 11:07 ; Status DC Fentanyl Citrate (Fentanyl 600 Mcg/30 ml [employer]) 30 ml @ 0 mls/hr CONT PRN PRN IV PROTOCOL Last administered on 08/06/16 02:18; Start 08/02/16 at 13:30; Stop at 13:39; Status DC Naloxone HCl 0.4 mg 0.4 mg PRN Q2MIN PRN IV SEE INSTRUCTIONS; Start 08/02/16 at 13:30 Micafungin Sodium 100 mg/Dextrose 100 ml @ 100 mls/hr Q24H IV Last administered on 08/10/16 18:05; Start 08/02/16 at 17:00 Lactated Ringer's 1,000 ml @ 1,000 mls/hr 1X ONCE IV Last administered on 15:45; Start 08/02/16 at 15:45; Stop 08/02/16 at 16:44; Status DC Piperacillin Sod/ Tazobactam Sod 4.5 gm/Sodium Chloride 100 ml @ 200 mls/hr Q6HRS IV Last administered on 08/03/16 12:00; Start 08/02/16 at 18:00; Stop at 14:02; Status DC Albumin Human (Plasmanate) 500 ml @ 125 mls/hr 1X ONCE IV Last administered on 08/02/16 20:37; Start 08/02/16 at 20:30; Stop 08/03/16 at 00:29; Status DC Furosemide (Lasix) 40 mg 1X ONCE IVP Last administered on 08/03/16 00:16; Start 08/02/16 at 20:30; Stop 08/02/16 at 20:31; Status DC Acetaminophen (Tylenol) 650 mg 1X ONCE NG Last administered on 08/03/16 02:03 ; Start 08/03/16 at 02:15; Stop 08/03/16 at 02:16; Status DC Ketorolac Tromethamine 15 mg 15 mg 1X ONCE IV Last administered on 08/03/16 02:03; Start 08/03/16 at 02:15; Stop 08/03/16 at 02:16; Status DC Lactated Ringer's (Iv Lactated Ringers) 500 ml @ 500 mls/hr 1X ONCE IV Last administered on 08/03/16 10:15; Start 08/03/16 at 10:15; Stop 08/03/16 at 11:14 ; Status DC Sodium Bicarbonate 50 meq 1X ONCE IV Last administered on 08/03/16 10:44; Start 08/03/16 at 10:15; Stop 08/03/16 at 10:20; Status DC Calcium Gluconate 1000 mg 1,000 mg 1X ONCE IVP ; Start 08/03/16 at 12:15; Stop 08/03/16 at 12:16; Status DC Sodium Bicarbonate 150 meq/Dextrose/ Sodium Chloride 1,150 ml @ 100 mls/hr [id number] PRN IV .; Start 08/03/16 at 12:30; Stop 08/03/16 at 13:03; Status DC Magnesium Sulfate/ Dextrose 50 ml @ 25 mls/hr PRN DAILY PRN IV for Mag < 1.7 on am labs; Start 08/03/16 at 12:30; Stop 08/09/16 at 18:00; Status DC Sodium Bicarbonate 150 meq/Dextrose 1,150 ml @ 100 mls/hr [id number] IV Last administered on 08/04/16 04:31; Start 08/03/16 at 13:30; Stop 08/04/16 at 08:31 ; Status DC Calcium Chloride 2000 mg/Sodium Chloride 120 ml @ 240 mls/hr 1X ONCE IV Last administered on 08/03/16 13:30; Start 08/03/16 at 13:30; Stop 08/03/16 at 13:59 ; Status DC Piperacillin Sod/ Tazobactam Sod/ Sodium Chloride (Zosyn/Iv Sodium Chloride 0.9 % 50ml) 50 ml @ 100 mls/hr Q6HRS IV Last administered on 08/08/16 12:09; Start 08/03/16 at 18:00; Stop 08/08/16 at 15:35; Status DC Heparin Sodium (Porcine) (Heparin Sodium) 10,000 unit STK-MED ONCE .ROUTE ; Start 08/03/16 at 14:31; Stop 08/03/16 at 14:32; Status DC Lidocaine/Sodium Bicarbonate (Buffered Lidocaine 1%) 20 ml STK-MED ONCE IJ ; Start 08/03/16 at 14:31; Stop 08/03/16 at 14:32; Status DC Heparin Sodium/ Sodium Chloride 60 unit 1X ONCE IV Last administered on 16:17; Start 08/03/16 at 14:45; Stop 08/03/16 at 14:46; Status DC Heparin Sodium (Porcine) (Heparin Sodium) 2,500 unit 1X ONCE INT CAT Last administered on 08/03/16 16:16; Start 08/03/16 at 14:45; Stop 08/03/16 at 14:46 ; Status DC Lidocaine/Sodium Bicarbonate (Buffered Lidocaine 1%) 3 ml 1X ONCE IJ Last administered on 08/03/16 16:16; Start 08/03/16 at 14:45; Stop 08/03/16 at 14:46 ; Status DC Fentanyl Citrate (Fentanyl 2ml Vial) 25 mcg PRN Q5MIN PRN IV MILD PAIN; Start 08/04/16 at 07:00; Stop 08/05/16 at 06:59; Status DC Fentanyl Citrate (Fentanyl 2ml Vial) 50 mcg PRN Q5MIN PRN IV MODERATE PAIN; Start 08/04/16 at 07:00; Stop 08/05/16 at 06:59; Status DC Morphine Sulfate 1 mg 1 mg PRN Q10MIN PRN IV SEVERE PAIN; Start 08/04/16 at 07: 00; Stop 08/05/16 at 06:59; Status DC Lactated Ringer's (Iv Lactated Ringers) 1,000 ml @ 0 mls/hr Q0M IV ; Start at 07:00; Stop 08/04/16 at 18:59; Status DC Lidocaine HCl 2 ml PRN 1X PRN ID PRIOR TO IV START; Start 08/04/16 at 07:00; Stop 08/05/16 at 06:59; Status DC Hydromorphone HCl (Dilaudid) 0.5 mg PRN Q10MIN PRN IV SEV PAIN, Second choice; Start 08/04/16 at 07:00; Stop 08/05/16 at 06:59; Status DC Famotidine (Pepcid) 20 mg DAILY IVP Last administered on 08/05/16 07:43; Start 08/04/16 at 09:00; Stop 08/06/16 at 07:05; Status DC Insulin Aspart (Novolog) 0-7 UNITS TIDWMEALS SQ Last administered on 08/10/16 19:09; Start 08/03/16 at 19:00 Dextrose 12.5 gm 12.5 gm PRN Q15MIN PRN IV SEE COMMENTS; Start 08/03/16 at 18: 30 Sodium Chloride 1,000 ml @ 1,000 mls/hr Q1H PRN IV hypotension; Start 08/03/16 at 18:33; Stop 08/04/16 at 00:32; Status DC Sodium Chloride (Iv Sodium Chloride 0.9% 1000ml Bag) 1,000 ml @ 400 mls/hr Q2H30M PRN IV PATENCY; Start 08/03/16 at 18:33; Stop 08/04/16 at 06:32; Status DC Info 1 each 1 each PRN DAILY PRN MC SEE COMMENTS; Start 08/03/16 at 18:45; Stop 08/06/16 at 09:01; Status DC Sodium Chloride 1,000 ml @ 1,000 mls/hr Q1H PRN IV hypotension; Start 08/04/16 at 07:44; Stop 08/04/16 at 13:43; Status DC Albumin Human (Albuminar) 200 ml @ 200 mls/hr 1X PRN PRN IV Hypotension Last administered on 08/04/16 08:48; Start 08/04/16 at 07:45; Stop 08/04/16 at 13:44 ; Status DC Diphenhydramine HCl (Benadryl) 25 mg 1X PRN PRN IV ITCHING; Start 08/04/16 at 07:45; Stop 08/05/16 at 07:44; Status DC Diphenhydramine HCl (Benadryl) 25 mg 1X PRN PRN IV ITCHING; Start 08/04/16 at 07:45; Stop 08/05/16 at 07:44; Status DC Sodium Chloride (Normal Saline Flush) 10 ml 1X PRN PRN IV AP catheter pack; Start 08/04/16 at 07:45; Stop 08/05/16 at 07:44; Status DC Sodium Chloride 10 ml 10 ml 1X PRN PRN IV [employer] catheter pack; Start 08/04/16 at 07:45; Stop 08/05/16 at 07:44; Status DC Sodium Chloride (Iv Sodium Chloride 0.9% 1000ml Bag) 1,000 ml @ 400 mls/hr Q2H30M PRN IV PATENCY; Start 08/04/16 at 07:44; Stop 08/04/16 at 19:43; Status DC Info (PHARMACY MONITORING -- do not chart) 1 each PRN DAILY PRN MC SEE COMMENTS ; Start 08/04/16 at 07:45; Stop 08/06/16 at 09:02; Status DC Heparin Sodium (Porcine) 5,000 unit Q12HR SQ Last administered on 08/11/16 09: 00; Start 08/04/16 at 21:00 Sevelamer Carbonate 2.4 gm 2.4 gm BID FT Last administered on 08/09/16 21:42; Start 08/05/16 at 10:00; Stop 08/10/16 at 12:38; Status DC Sodium Chloride 1,000 ml @ 1,000 mls/hr Q1H PRN IV hypotension; Start 08/05/16 at 12:28; Stop 08/05/16 at 18:27; Status DC Albumin Human (Albuminar) 200 ml @ 200 mls/hr 1X PRN PRN IV Hypotension; Start 08/05/16 at 12:30; Stop 08/05/16 at 18:29; Status DC Sodium Chloride (Normal Saline Flush) 10 ml 1X PRN PRN IV AP catheter pack; Start 08/05/16 at 12:30; Stop 08/06/16 at 12:29; Status DC Sodium Chloride 10 ml 10 ml 1X PRN PRN IV RA[employer] catheter pack; Start 08/05/16 at 12:30; Stop 08/06/16 at 12:29; Status DC Sodium Chloride (Iv Sodium Chloride 0.9% 1000ml Bag) 1,000 ml @ 400 mls/hr Q2H30M PRN IV PATENCY; Start 08/05/16 at 12:28; Stop 08/06/16 at 00:27; Status DC Info 1 each 1 each PRN DAILY PRN MC SEE COMMENTS; Start 08/05/16 at 12:30; Stop 08/08/16 at 07:15; Status DC Propofol (Diprivan) 20 ml @ As Directed STK-MED ONCE IV ; Start 08/05/16 at 13: 01; Stop 08/05/16 at 13:02; Status DC Rocuronium [place] (Zemuron) 50 mg STK-MED ONCE .ROUTE ; Start 08/05/16 at 13:01 ; Stop 08/05/16 at 13:02; Status DC Dexamethasone Sodium Phosphate (Decadron) 20 mg STK-MED ONCE .ROUTE ; Start at 13:05; Stop 08/05/16 at 13:06; Status DC Famotidine (Pepcid) 20 mg STK-MED ONCE .ROUTE ; Start 08/05/16 at 13:05; Stop at 13:06; Status DC Ondansetron HCl (Zofran) 4 mg STK-MED ONCE .ROUTE ; Start 08/05/16 at 13:05; Stop 08/05/16 at 13:06; Status DC Midazolam HCl (Versed) 2 mg STK-MED ONCE .ROUTE ; Start 08/05/16 at 13:13; Stop 08/05/16 at 13:14; Status DC Vasopressin (Vasostrict) 20 unit STK-MED ONCE .ROUTE ; Start 08/05/16 at 13:58; Stop 08/05/16 at 13:59; Status DC Sodium Chloride (Sodium Chloride) 50 ml STK-MED ONCE IJ ; Start 08/05/16 at 13: 58; Stop 08/05/16 at 13:59; Status DC Sevoflurane (Ultane) 60 ml STK-MED ONCE IH ; Start 08/05/16 at 14:29; Stop 08/05 at 14:30; Status DC Alprazolam (Xanax) 0.25 mg PRN Q8HRS PRN PEG ANXIETY / AGITATION Last administered on 08/09/16t 07:46; Start 08/05/16 at 14:45 Lidocaine HCl (Xylocaine-Mpf 1% Vial) 5 ml STK-MED ONCE INJ Last administered on 08/05/16 14:55; Start 08/05/16 at 14:55; Stop 08/05/16 at 15:11; Status DC Pantoprazole Sodium 40 mg 40 mg DAILYAC IVP Last administered on 08/11/16 09: 40; Start 08/06/16 at 07:30 Linezolid 300 ml @ 300 mls/hr Q12HR IV Last administered on 08/09/16 07:43; Start 08/06/16 at 11:30; Stop 08/09/16 at 07:57; Status DC Sodium Chloride 1,000 ml @ 1,000 mls/hr Q1H PRN IV hypotension; Start 08/06/16 at 13:17; Stop 08/06/16 at 19:16; Status DC Sodium Chloride (Iv Sodium Chloride 0.9% 1000ml Bag) 1,000 ml @ 400 mls/hr Q2H30M PRN IV PATENCY; Start 08/06/16 at 13:17; Stop 08/07/16 at 01:16; Status DC Info (PHARMACY MONITORING -- do not chart) 1 each PRN DAILY PRN MC SEE COMMENTS ; Start 08/06/16 at 13:30; Status UNV Darbepoetin Nick (Aranesp) 60 mcg [id number] SQ Last administered on 08/07/16 21 :04; Start 08/07/16 at 21:00 Zolpidem Tartrate 5 mg 5 mg HS PO Last administered on 08/11/16 00:02; Start 08/07/16 at 21:00 Sodium Chloride 1,000 ml @ 1,000 mls/hr Q1H PRN IV hypotension; Start 08/08/16 at 07:01; Stop 08/08/16 at 13:00; Status DC Albumin Human (Albuminar) 200 ml @ 200 mls/hr 1X PRN PRN IV Hypotension Last administered on 08/08/16 09:43; Start 08/08/16 at 07:15; Stop 08/08/16 at 13:14 ; Status DC Acetaminophen (Tylenol) 500 mg 1X PRN PRN PO MILD PAIN / TEMP; Start 08/08/16 at 07:15; Stop 08/09/16 at 07:14; Status DC Diphenhydramine HCl (Benadryl) 25 mg 1X PRN PRN IV ITCHING; Start 08/08/16 at 07:15; Stop 08/09/16 at 07:14; Status DC Diphenhydramine HCl (Benadryl) 25 mg 1X PRN PRN IV ITCHING; Start 08/08/16 at 07:15; Stop 08/09/16 at 07:14; Status DC Labetalol HCl (Normodyne) 10 mg PRN Q1HR PRN IVP SBP > 180; Start 08/08/16 at 07:15; Stop 08/09/16 at 07:14; Status DC Clonidine HCl 0.1 mg 0.1 mg 1X PRN PRN PO SBP > 180; Start 08/08/16 at 07:15; Stop 08/09/16 at 07:14; Status DC Sodium Chloride (Iv Sodium Chloride 0.9% 1000ml Bag) 1,000 ml @ 400 mls/hr Q2H30M PRN IV PATENCY; Start 08/08/16 at 07:01; Stop 08/08/16 at 19:00; Status DC Info (PHARMACY MONITORING -- do not chart) 1 each PRN DAILY PRN MC SEE COMMENTS ; Start 08/08/16 at 07:15 Amiodarone HCl 400 mg 400 mg DAILY PO Last administered on 08/11/16 09:42; Start 08/09/16 at 09:00 Piperacillin Sod/ Tazobactam Sod/ Sodium Chloride (Zosyn/Iv Sodium Chloride 0.9 % 50ml) 50 ml @ 100 mls/hr Q8HRS IV Last administered on 08/11/16 05:48; Start 08/08/16 at 22:00 Linezolid (Zyvox) 600 mg BID PEG Last administered on 08/11/16 09:42; Start at 21:00 Lactobacillus Acidophilus (Bacid, [place]-Bid) 1 tab TIDWMEALS PO Last administered on 08/11/16 09:41; Start 08/09/16 at 08:00 Calcium Carbonate/ Glycine (Tums) 1,000 mg TID PO Last administered on 09:40; Start 08/09/16 at 09:00 Heparin Sodium (Porcine) (Heparin Sodium) 10,000 unit [employer] ONCE .ROUTE ; Start 08/09/16 at 14:49; Stop 08/09/16 at 14:50; Status DC Lidocaine/ Epinephrine 20 ml 20 ml STK-MED ONCE .ROUTE ; Start 08/09/16 at 14:49 ; Stop 08/09/16 at 14:50; Status DC Heparin Sodium/ Sodium Chloride 500 ml @ As Directed STK-MED ONCE .ROUTE ; Start 08/09/16 at 14:49; Stop 08/09/16 at 14:50; Status DC Heparin Sodium/ Sodium Chloride 1,000 unit 1X ONCE IART Last administered on 15:44; Start 08/09/16 at 15:30; Stop 08/09/16 at 15:31; Status DC Heparin Sodium (Porcine) (Heparin Sodium) 2,600 unit 1X ONCE INT CAT Last administered on 08/09/16 15:44; Start 08/09/16 at 15:30; Stop 08/09/16 at 15:31 ; Status DC Lidocaine/ Epinephrine (Xylocaine 1%-Epi 1:100,000) 20 ml 1X ONCE INJ Last administered on 08/09/16 15:44; Start 08/09/16 at 15:30; Stop 08/09/16 at 15:31 ; Status DC Sevelamer Carbonate (Renvela) 7.2 gm DAILY PO Last administered on 08/11/16 09 :00; Start 08/10/16 at 10:30 Info (PHARMACY MONITORING -- do not chart) 1 each PRN DAILY PRN MC SEE COMMENTS ; Start 08/10/16 at 16:00; Stop 08/11/16 at 08:58; Status DC Info (PHARMACY MONITORING -- do not chart) 1 each PRN DAILY PRN MC SEE COMMENTS ; Start 08/10/16 at 16:00; Status UNV Sevelamer Carbonate (Renvela) 7.2 gm DAILY PEG ; Start 08/12/16 at 09:00; Status UNV Active Scripts Active Reported Amlodipine Besylate 5 Mg Tablet 5 Mg PO DAILY Pradaxa (Dabigatran Etexilate Mesylate) 150 Mg Capsule 1 Cap PO BID Metoprolol Succinate ( Xl ) (Metoprolol Succinate) 100 Mg Tab.er.24h 1 Tab PO DAILY Vitals/I & O Vital Sign - Last 24 Hours 08/10/16 08/10/16 08/10/16 08/10/16 12:34 13:00 14:00 15:00 Pulse 84 87 100 Resp 24 20 22 B/P 119/65 115/72 110/76 Pulse Ox 100 100 100 98 O2 Delivery Tracheal Collar Tracheal Collar Tracheal Collar Tracheal Collar O2 Flow Rate 10.0 08/10/16 08/10/16 08/10/16 08/10/16 15:36 16:00 16:00 17:00 Temp 97.5 97.5 Pulse 92 90 Resp 27 27 B/P 124/71 Pulse Ox 100 99 100 O2 Delivery Tracheal Collar Tracheal Collar Trach Collar Tracheal Collar O2 Flow Rate 10.0 08/10/16 08/10/16 08/10/16 08/10/16 18:00 19:00 20:00 20:00 Temp 97.8 97.8 Pulse 90 94 98 Resp 25 24 23 B/P 128/69 140/72 137/79 Pulse Ox 100 100 100 O2 Delivery Tracheal Collar Tracheal Collar Tracheal Collar Trach Collar 08/10/16 08/10/16 08/10/16 08/10/16 20:26 21:00 21:30 22:00 Pulse 102 96 85 Resp 24 25 B/P 133/66 133/66 121/57 Pulse Ox 100 100 100 O2 Delivery Tracheal Collar Tracheal Collar Tracheal Collar O2 Flow Rate 10.0 08/10/16 08/10/16 08/10/16 08/11/16 23:00 23:59 23:59 01:00 Temp 98.0 98.0 Pulse 82 80 71 Resp 25 24 22 B/P 114/65 132/67 110/62 Pulse Ox 100 100 100 O2 Delivery Tracheal Collar Trach Collar Tracheal Collar Tracheal Collar 08/11/16 08/11/16 08/11/16 08/11/16 02:00 03:00 04:00 04:00 Temp 98.3 98.3 Pulse 83 81 89 Resp 25 18 24 B/P 124/72 119/67 137/71 Pulse Ox 100 100 100 O2 Delivery Tracheal Collar Tracheal Collar Trach Collar Tracheal Collar 08/11/16 08/11/16 08/11/16 08/11/16 05:00 06:00 07:00 08:00 Temp 98.0 98.0 Pulse 83 86 82 Resp 21 22 22 B/P 114/71 114/73 129/67 Pulse Ox 100 100 100 O2 Delivery Tracheal Collar Tracheal Collar Tracheal Collar Trach Collar 08/11/16 08/11/16 08/11/16 08/11/16 08:00 08:18 09:18 09:41 Pulse 80 79 88 Resp 18 20 B/P 136/74 132/71 132/71 Pulse Ox 100 100 O2 Delivery Tracheal Collar Tracheal Collar O2 Flow Rate 10.0 08/11/16 08/11/16 08/11/16 08/11/16 09:42 10:00 11:07 11:49 Pulse 79 68 85 Resp 18 B/P 132/71 128/69 133/77 Pulse Ox 100 100 100 O2 Delivery Tracheal Collar T-Tube Tracheal Collar O2 Flow Rate 8.0 Intake and Output 08/10/16 08/10/16 08/11/16 15:00 23:00 07:00 Intake Total 80 ml 1525 ml 834 ml Output Total 40 ml 75 ml 20 ml Balance 40 ml 1450 ml 814 ml MICHELNIAL K III DO Aug 11, 2016 12:14
--- NOTE | 2016-08-11 12:30 | PDOC ---
G I PROGRESS NOTE Subjective Awake, orients. No communication really. Objective Staff report no problems with tube feedings. Still with loose stools. Physical Exam Lungs clear. RRR Abdomen soft, not tender. PEG looks good. Review of Relevant I have reviewed the following items leonidas (where applicable) has been applied. Labs Laboratory Tests Test 08/09/16 14:07 08/09/16 16:36 08/10/16 00:39 08/10/16 06:00 Glucose (Fingerstick) 125mg/dL (70-99) 122mg/dL (70-99) 146mg/dL (70-99) White Blood Count 8.7x10^3/uL (4.0-11.0) Red Blood Count 2.41x10^6/uL (4.30-5.70) Hemoglobin 7.8g/dL (13.0-17.5) Hematocrit 23.0% (39.0-53.0) Mean Corpuscular Volume 96fL (79-100) Mean Corpuscular Hemoglobin 32pg (25-35) Mean Corpuscular Hemoglobin Concent 34g/dL (31-37) Red Cell Distribution Width 19.1% (11.5-14.5) Platelet Count 140x10^3/uL (140-400) Neutrophils (%) (Auto) 90% (31-73) Lymphocytes (%) (Auto) 5% (24-48) Monocytes (%) (Auto) 5% (0-9) Eosinophils (%) (Auto) 0% (0-3) Basophils (%) (Auto) 0% (0-3) Neutrophils # (Auto) 7.8x10^3uL (1.8-7.7) Lymphocytes # (Auto) 0.5x10^3/uL (1.0-4.8) Monocytes # (Auto) 0.4x10^3/uL (0.0-1.1) Eosinophils # (Auto) 0.0x10^3/uL (0.0-0.7) Basophils # (Auto) 0.0x10^3/uL (0.0-0.2) Sodium Level 136mmol/L (136-145) Potassium Level 4.6mmol/L (3.5-5.1) Chloride Level 95mmol/L (98-107) Carbon Dioxide Level 22mmol/L (21-32) Anion Gap 19 (6-14) Blood Urea Nitrogen 127mg/dL (8-26) Creatinine 4.8mg/dL (0.7-1.3) Estimated GFR (Cockcroft-Gault) 12.6 Glucose Level 153mg/dL (70-99) Calcium Level 8.2mg/dL (8.5-10.1) Phosphorus Level 8.9mg/dL (2.6-4.7) Albumin 2.1g/dL (3.4-5.0) Test 08/10/16 06:06 08/10/16 07:44 08/10/16 13:35 08/10/16 19:07 Glucose (Fingerstick) 134mg/dL (70-99) 143mg/dL (70-99) 154mg/dL (70-99) O2 Saturation 96% (92-99) Arterial Blood pH 7.43 (7.35-7.45) Arterial Blood pCO2 at Patient Temp 34mmHg (35-46) Arterial Blood pO2 at Patient Temp 92mmHg (75-108) Arterial Blood HCO3 22mmol/L (21-28) Arterial Blood Base Excess -2mmol/L (-3-3) FiO2 40 Test 08/11/16 04:47 08/11/16 05:45 08/11/16 05:46 White Blood Count 10.0x10^3/uL (4.0-11.0) Red Blood Count 2.56x10^6/uL (4.30-5.70) Hemoglobin 8.4g/dL (13.0-17.5) Hematocrit 24.5% (39.0-53.0) Mean Corpuscular Volume 96fL (79-100) Mean Corpuscular Hemoglobin 33pg (25-35) Mean Corpuscular Hemoglobin Concent 34g/dL (31-37) Red Cell Distribution Width 18.3% (11.5-14.5) Platelet Count 166x10^3/uL (140-400) Neutrophils (%) (Auto) 90% (31-73) Lymphocytes (%) (Auto) 5% (24-48) Monocytes (%) (Auto) 5% (0-9) Eosinophils (%) (Auto) 1% (0-3) Basophils (%) (Auto) 0% (0-3) Neutrophils # (Auto) 9.0x10^3uL (1.8-7.7) Lymphocytes # (Auto) 0.5x10^3/uL (1.0-4.8) Monocytes # (Auto) 0.4x10^3/uL (0.0-1.1) Eosinophils # (Auto) 0.1x10^3/uL (0.0-0.7) Basophils # (Auto) 0.0x10^3/uL (0.0-0.2) Sodium Level 133mmol/L (136-145) Potassium Level 4.9mmol/L (3.5-5.1) Chloride Level 98mmol/L (98-107) Carbon Dioxide Level 23mmol/L (21-32) Anion Gap 12 (6-14) Blood Urea Nitrogen 89mg/dL (8-26) Creatinine 3.7mg/dL (0.7-1.3) Estimated GFR (Cockcroft-Gault) 17.0 Glucose Level 123mg/dL (70-99) Calcium Level 8.6mg/dL (8.5-10.1) Glucose (Fingerstick) 111mg/dL (70-99) Laboratory Tests Test 08/10/16 13:35 08/10/16 19:07 08/11/16 04:47 08/11/16 05:45 Glucose (Fingerstick) 143mg/dL (70-99) 154mg/dL (70-99) White Blood Count 10.0x10^3/uL (4.0-11.0) Red Blood Count 2.56x10^6/uL (4.30-5.70) Hemoglobin 8.4g/dL (13.0-17.5) Hematocrit 24.5% (39.0-53.0) Mean Corpuscular Volume 96fL (79-100) Mean Corpuscular Hemoglobin 33pg (25-35) Mean Corpuscular Hemoglobin Concent 34g/dL (31-37) Red Cell Distribution Width 18.3% (11.5-14.5) Platelet Count 166x10^3/uL (140-400) Neutrophils (%) (Auto) 90% (31-73) Lymphocytes (%) (Auto) 5% (24-48) Monocytes (%) (Auto) 5% (0-9) Eosinophils (%) (Auto) 1% (0-3) Basophils (%) (Auto) 0% (0-3) Neutrophils # (Auto) 9.0x10^3uL (1.8-7.7) Lymphocytes # (Auto) 0.5x10^3/uL (1.0-4.8) Monocytes # (Auto) 0.4x10^3/uL (0.0-1.1) Eosinophils # (Auto) 0.1x10^3/uL (0.0-0.7) Basophils # (Auto) 0.0x10^3/uL (0.0-0.2) Sodium Level 133mmol/L (136-145) Potassium Level 4.9mmol/L (3.5-5.1) Chloride Level 98mmol/L (98-107) Carbon Dioxide Level 23mmol/L (21-32) Anion Gap 12 (6-14) Blood Urea Nitrogen 89mg/dL (8-26) Creatinine 3.7mg/dL (0.7-1.3) Estimated GFR (Cockcroft-Gault) 17.0 Glucose Level 123mg/dL (70-99) Calcium Level 8.6mg/dL (8.5-10.1) Test 08/11/16 05:46 Glucose (Fingerstick) 111mg/dL (70-99) Microbiology 08/02/16 Blood Culture - Final, Complete NO GROWTH AFTER 5 DAYS 08/03/16 Sputum Culture - Final, Complete 08/03/16 Sputum Result 1 - Final, Complete 08/03/16 Sputum Result 2 - Final, Complete 08/03/16 Antimicrobic Susceptibility - Final, Complete 08/02/16 Urine Culture - Final, Complete 08/02/16 Urine Culture Result 1 (MILEY) - Final, Complete 08/03/16 Gram Stain - Final, Complete Medications Current Medications Nitroglycerin 0.4 mg 0.4 mg PRN Q5MIN PRN SL CP RATING > 04/26; Start 07/20/16 at 09:45; Stop 07/20/16 at 15:05; Status DC Nitroglycerin/ Dextrose (Nitroglycerin Drip) 250 ml @ 3 mls/hr 1X ONCE IV Last administered on 07/20/16 10:02; Start 07/20/16 at 10:30; Stop 07/23/16 at 21: 49; Status DC Morphine Sulfate 2 mg PRN Q15MIN PRN IV/SQ PAIN GREATER THAN 3/10; Start at 09:45; Stop 07/21/16 at 09:44; Status DC Ondansetron HCl (Zofran) 4 mg PRN Q8HRS PRN IV NAUSEA/VOMITING; Start 07/20/16 at 12:30; Stop 07/20/16 at 13:36; Status DC Morphine Sulfate 2 mg 2 mg PRN Q2HR PRN IV PAIN; Start 07/20/16 at 12:30; Stop 07/21/16 at 12:29; Status DC Heparin Sodium/ Dextrose 500 ml @ 0 mls/hr CONT PRN IV . Last administered on 10:32; Start 07/20/16 at 13:00; Stop 07/21/16 at 14:50; Status DC Metoprolol Tartrate (Lopressor) 5 mg Q6HRS IVP ; Start 07/20/16 at 13:00; Stop at 14:53; Status DC Aspirin (Ecotrin) 325 mg [id number] PO Last administered on 07/21/16 08:11; Start 07/20/16 at 13:00; Stop 07/21/16 at 17:20; Status DC Ondansetron HCl (Zofran) 4 mg PRN Q6HRS PRN IV NAUSEA/VOMITING; Start 07/20/16 at 13:35; Stop 07/26/16 at 11:41; Status DC Acetaminophen (Tylenol) 500 mg PRN Q6HRS PRN PO MILD PAIN / TEMP Last administered on 07/29/16 09:55; Start 07/20/16 at 13:45; Stop 07/29/16 at 13:38 ; Status DC Docusate Sodium (Colace) 100 mg DAILY PO Last administered on 07/29/16 09:54; Start 07/20/16 at 15:00; Stop 07/29/16 at 10:03; Status DC Iohexol 100 ml 100 ml STK-MED ONCE .ROUTE ; Start 07/20/16 at 12:40; Stop at 13:44; Status DC Heparin Sodium/ Sodium Chloride 1,000 ml @ As Directed STK-MED ONCE .ROUTE ; Start 07/20/16 at 12:41; Stop 07/20/16 at 13:44; Status DC Lidocaine HCl 20 ml STK-MED ONCE .ROUTE ; Start 07/20/16 at 12:41; Stop 07/20/16 at 13:44; Status DC Fentanyl Citrate (Fentanyl 2ml Vial) 100 mcg STK-MED ONCE .ROUTE ; Start at 13:42; Stop 07/20/16 at 13:45; Status DC Midazolam HCl (Versed) 2 mg STK-MED ONCE .ROUTE ; Start 07/20/16 at 13:42; Stop 07/20/16 at 13:45; Status DC Heparin Sodium/ Sodium Chloride 1,000 unit 1X ONCE IART Last administered on 14:29; Start 07/20/16 at 14:00; Stop 07/20/16 at 14:01; Status DC Heparin Sodium/ Sodium Chloride 1,000 unit 1X ONCE IART Last administered on 14:29; Start 07/20/16 at 14:00; Stop 07/20/16 at 14:01; Status DC Midazolam HCl (Versed) 2 mg 1X ONCE IV Last administered on 07/20/16 14:28; Start 07/20/16 at 14:00; Stop 07/20/16 at 14:01; Status DC Fentanyl Citrate (Fentanyl 2ml Vial) 100 mcg 1X ONCE IV Last administered on 14:28; Start 07/20/16 at 14:00; Stop 07/20/16 at 14:01; Status DC Iohexol (Omnipaque 300 Mg/ml) 100 ml 1X ONCE IART Last administered on 14:29; Start 07/20/16 at 14:00; Stop 07/20/16 at 14:01; Status DC Lidocaine HCl 20 ml 1X ONCE IJ Last administered on 07/20/16 14:29; Start 07/20 at 14:00; Stop 07/20/16 at 14:01; Status DC Midazolam HCl (Versed) 2 mg STK-MED ONCE .ROUTE ; Start 07/20/16 at 14:15; Stop 07/20/16 at 14:16; Status DC Sodium Chloride 3 ml 3 ml QSHIFT PRN IV AFTER MEDS AND BLOOD DRAWS; Start at 14:45; Stop 07/29/16 at 13:51; Status DC Sodium Chloride (Iv Sodium Chloride 0.9% 1000ml Bag) 1,000 ml @ 60 mls/hr [id number] IV Last administered on 07/20/16 14:44; Start 07/20/16 at 14:44; Stop at 00:43; Status DC Metoprolol Tartrate (Lopressor) 12.5 mg BID PO ; Start 07/20/16 at 21:00; Stop at 21:00; Status DC Lisinopril (Prinivil) 5 mg DAILY PO Last administered on 07/20/16 16:25; Start 07/20/16 at 15:00; Stop 07/20/16 at 17:21; Status DC Atorvastatin Calcium (Lipitor) 20 mg QHS PO Last administered on 07/20/16 20:33 ; Start 07/20/16 at 21:00; Stop 07/21/16 at 08:11; Status DC Nitroglycerin (Nitrostat) 0.4 mg PRN Q5MIN PRN SL CHEST PAIN Last administered on 07/25/16 04:55; Start 07/20/16 at 14:45; Stop 07/26/16 at 11:41; Status DC Hydralazine HCl (Apresoline) 10 mg PRN Q4HRS PRN IVP ELEVATED BP, SEE COMMENTS Last administered on 07/31/16 10:58; Start 07/20/16 at 17:15; Stop 07/31/16 at 13:31; Status DC Metoprolol Tartrate (Lopressor) 50 mg BID PO Last administered on 07/22/16 08: 31; Start 07/20/16 at 21:00; Stop 07/22/16 at 19:03; Status DC Alprazolam (Xanax) 0.25 mg PRN Q8HRS PRN PO ANXIETY / AGITATION Last administered on 07/24/16 21:34; Start 07/20/16 at 17:30; Stop 07/29/16 at 13:38; Status DC Heparin Sodium (Porcine) 2050 unit 2,050 unit PRN Q6HRS PRN IV FOR UFH LEVEL LESS THAN 0.2 Last administered on 07/21/16 04:24; Start 07/20/16 at 19:45; Stop 07/26/16 at 08:55; Status DC Heparin Sodium/ Dextrose 500 ml @ 19.4 mls/hr CONT PRN IV SEE I/O RECORD; Start 07/20/16 at 19:45; Stop 07/21/16 at 16:24; Status DC Heparin Sodium (Porcine) (Heparin Sodium) 2,050 unit PRN Q6HRS PRN IV FOR UFH LEVEL LESS THAN 0.2; Start 07/20/16 at 19:45; Status UNV Atorvastatin Calcium (Lipitor) 40 mg QHS PO Last administered on 08/10/16 21: 29; Start 07/21/16 at 21:00 Iodixanol (Visipaque 320) 200 ml STK-MED ONCE .ROUTE ; Start 07/20/16 at 14:00; Stop 07/21/16 at 08:26; Status DC Zolpidem Tartrate (Ambien) 5 mg PRN QHS PRN PO INSOMNIA, MAY REPEAT IN 1HR; Start 07/21/16 at 15:30; Stop 07/29/16 at 13:38; Status DC Metoprolol Tartrate 25 mg 25 mg 1X ONCE PO ; Start 07/22/16 at 06:00; Stop at 06:02; Status DC Cefazolin Sodium/ Dextrose 50 ml @ 100 mls/hr 1X ONCE IV ; Start 07/22/16 at 06 :00; Stop 07/22/16 at 06:29; Status DC Heparin Sodium/ Dextrose 500 ml @ 0 mls/hr CONT PRN IV SEE I/O RECORD Last administered on 07/24/16 01:40; Start 07/21/16 at 16:30; Stop 07/26/16 at 08:55; Status DC Lidocaine HCl 2 ml 2 ml 1X PRN PRN ID IV START; Start 07/25/16 at 06:00; Stop 07/26/16 at 05:59; Status Cancel Lactated Ringer's (Iv Lactated Ringers) 1,000 ml @ 0 mls/hr Q0M IV Last administered on 07/25/16 07:30; Start 07/25/16 at 06:00; Stop 07/25/16 at 17:59 ; Status DC Fentanyl Citrate (Fentanyl 2ml Vial) 25 mcg PRN Q5MIN PRN IV Acute Pain; Start 07/22/16 at 09:15; Stop 07/23/16 at 09:14; Status DC Morphine Sulfate 2 mg PRN Q10MIN PRN IV Mild Pain; Start 07/22/16 at 09:15; Stop 07/23/16 at 09:14; Status DC Hydromorphone HCl (Dilaudid) 0.4 mg PRN Q10MIN PRN IV Moderate to severe pain; Start 07/22/16 at 09:15; Stop 07/23/16 at 09:14; Status DC Ondansetron HCl (Zofran) 4 mg PRN Q6HRS PRN IV Nausea, 1st Choice; Start at 09:15; Stop 07/23/16 at 09:14; Status DC Prochlorperazine Edisylate (Compazine) 5 mg PRN Q6HRS PRN IV Nausea/Vomiting, 2nd Choice; Start 07/22/16 at 09:15; Stop 07/23/16 at 09:14; Status DC Ondansetron HCl (Zofran) 4 mg PRN Q6HRS PRN IV NAUSEA/VOMITING; Start 07/25/16 at 07:00; Stop 07/26/16 at 06:59; Status DC Fentanyl Citrate (Fentanyl 2ml Vial) 25 mcg PRN Q5MIN PRN IV MILD PAIN; Start 07/25/16 at 07:00; Stop 07/26/16 at 06:59; Status DC Fentanyl Citrate (Fentanyl 2ml Vial) 50 mcg PRN Q5MIN PRN IV MODERATE PAIN; Start 07/25/16 at 07:00; Stop 07/26/16 at 06:59; Status DC Morphine Sulfate 1 mg 1 mg PRN Q10MIN PRN IV SEVERE PAIN; Start 07/25/16 at 07: 00; Stop 07/25/16 at 20:28; Status DC Lactated Ringer's (Iv Lactated Ringers) 1,000 ml @ 0 mls/hr Q0M IV ; Start 01/31 at 07:00; Stop 07/25/16 at 18:59; Status Cancel Lidocaine HCl 2 ml PRN 1X PRN ID PRIOR TO IV START Last administered on 07:16; Start 07/25/16 at 07:00; Stop 07/26/16 at 06:59; Status DC Hydromorphone HCl (Dilaudid) 0.5 mg PRN Q10MIN PRN IV SEV PAIN, Second choice; Start 07/25/16 at 07:00; Stop 07/26/16 at 06:59; Status DC Prochlorperazine Edisylate 5 mg 5 mg PACU PRN PRN IV NAUSEA, MRX1; Start at 07:00; Stop 07/26/16 at 06:59; Status DC Cefazolin Sodium/ Dextrose (Ancef 2gm Premix) 50 ml @ 100 mls/hr 1X ONCE IV Last administered on 07/25/16 08:12; Start 07/25/16 at 06:00; Stop 07/25/16 at 06:29; Status DC Metoprolol Tartrate (Lopressor) 25 mg 1X ONCE PO ; Start 07/25/16 at 06:00; Stop 07/25/16 at 06:00; Status DC Metoprolol Tartrate (Lopressor) 2.5 mg 1X ONCE IVP Last administered on 16:30; Start 07/22/16 at 16:30; Stop 07/22/16 at 16:31; Status DC Digoxin (Lanoxin) 250 mcg 1X ONCE IV ; Start 07/22/16 at 18:30; Stop 07/22/16 at 18:42; Status DC Digoxin (Lanoxin) 500 mcg 1X ONCE IV Last administered on 07/22/16 18:47; Start 07/22/16 at 18:45; Stop 07/22/16 at 18:46; Status DC Metoprolol Tartrate (Lopressor) 75 mg BID PO Last administered on 07/24/16 21: 30; Start 07/22/16 at 21:00; Stop 07/25/16 at 13:12; Status DC Nitroglycerin 0.4 mg 0.4 mg PRN Q5MIN PRN SL CHEST PAIN; Start 07/23/16 at 12:00 ; Status UNV Heparin Sodium (Porcine) 82330 unit/Lactated Ringer's 1,020 ml @ 1,020 mls/hr 1X PERIOP ONCE IRR Last administered on 07/25/16 08:46; Start 07/25/16 at 06: 00; Stop 07/25/16 at 06:59; Status DC Potassium Chloride 70 meq/ Sodium Bicarbonate 12.5 meq/Lidocaine HCl 24 ml/ Parenteral Electrolytes 571.5 ml @ 571.5 mls/ hr 1X PERIOP ONCE IRR ; Start at 06:00; Stop 07/25/16 at 06:59; Status DC Potassium Chloride/Sodium Bicarbonate/ Parenteral Electrolytes (Isolyte S) 520 ml @ 520 mls/hr 1X PERIOP ONCE IRR ; Start 07/25/16 at 06:00; Stop 07/25/16 at 06:59; Status DC Etomidate (Amidate) 20 mg STK-MED ONCE IV ; Start 07/25/16 at 06:08; Stop at 06:09; Status DC Phenylephrine HCl (-Synephrine Inj) 10 mg STK-MED ONCE .ROUTE ; Start at 06:08; Stop 07/25/16 at 06:09; Status DC Aminocaproic Acid (Amicar) 5,000 mg STK-MED ONCE IV ; Start 07/25/16 at 06:08; Stop 07/25/16 at 06:09; Status DC Heparin Sodium (Porcine) (Heparin Sodium) 10,000 unit STK-MED ONCE .ROUTE ; Start 07/25/16 at 06:10; Stop 07/25/16 at 06:11; Status DC Rocuronium Wayne (Zemuron) 100 mg STK-MED ONCE .ROUTE ; Start 07/25/16 at 06: 11; Stop 07/25/16 at 06:12; Status DC Morphine Sulfate 4 mg STK-MED ONCE .ROUTE ; Start 07/25/16 at 06:59; Stop at 07:00; Status DC Morphine Sulfate 4 mg 4 mg 1X ONCE IV ; Start 07/25/16 at 07:15; Stop 07/25/16 at 07:16; Status DC Cefazolin Sodium/ Sodium Chloride (Ancef/Iv Sodium Chloride 0.9% 500ml Bag) 500 ml @ 500 mls/hr 1X PERIOP ONCE IRR Last administered on 07/25/16 08:46; Start 07/25/16 at 07:15; Stop 07/25/16 at 08:14; Status DC Cellulose 1 each STK-MED ONCE .ROUTE Last administered on 07/25/16 08:46; Start 07/25/16 at 07:07; Stop 07/25/16 at 07:08; Status DC Vancomycin HCl (Vanco) 10 gm STK-MED ONCE .ROUTE Last administered on 08:46; Start 07/25/16 at 07:07; Stop 07/25/16 at 07:08; Status DC Papaverine HCl 60 mg STK-MED ONCE .ROUTE Last administered on 07/25/16 08:46; Start 07/25/16 at 07:07; Stop 07/25/16 at 07:08; Status DC Aspirin (Aspirin) 300 mg STK-MED ONCE .ROUTE Last administered on 07/25/16 17: 25; Start 07/25/16 at 07:08; Stop 07/25/16 at 07:09; Status DC Sodium Chloride (Sodium Chloride) 50 ml STK-MED ONCE IJ Last administered on 08:46; Start 07/25/16 at 07:08; Stop 07/25/16 at 07:09; Status DC Midazolam HCl (Versed) 2 mg STK-MED ONCE .ROUTE ; Start 07/25/16 at 07:15; Stop 07/25/16 at 07:16; Status DC Ephedrine Sulfate 50 mg 50 mg STK-MED ONCE IV ; Start 07/25/16 at 07:16; Stop at 07:17; Status DC Nitroglycerin/ Dextrose (Nitroglycerin Drip) 250 ml @ As Directed STK-MED ONCE IV ; Start 07/25/16 at 07:16; Stop 07/25/16 at 07:17; Status DC Midazolam HCl (Versed) 2 mg STK-MED ONCE .ROUTE ; Start 07/25/16 at 07:18; Stop 07/25/16 at 07:19; Status DC Fentanyl Citrate (Fentanyl 2ml Vial) 100 mcg STK-MED ONCE .ROUTE ; Start at 07:19; Stop 07/25/16 at 07:20; Status DC Sufentanil Citrate (Sufenta) 100 mcg STK-MED ONCE .ROUTE ; Start 07/25/16 at 07: 19; Stop 07/25/16 at 07:20; Status DC Midazolam HCl (Versed) 2 mg 1X ONCE IV ; Start 07/25/16 at 08:00; Stop at 08:01; Status DC Dexamethasone Sodium Phosphate (Decadron) 20 mg STK-MED ONCE .ROUTE ; Start 01/31 at 07:58; Stop 07/25/16 at 07:59; Status DC Rocuronium Wayne (Zemuron) 100 mg STK-MED ONCE .ROUTE ; Start 07/25/16 at 08: 52; Stop 07/25/16 at 08:53; Status DC Sufentanil Citrate (Sufenta) 100 mcg STK-MED ONCE .ROUTE ; Start 07/25/16 at 08: 53; Stop 07/25/16 at 08:54; Status DC Protamine Sulfate 250 mg STK-MED ONCE IV ; Start 07/25/16 at 10:43; Stop at 10:44; Status DC Rocuronium Wayne 100 mg 100 mg STK-MED ONCE .ROUTE ; Start 07/25/16 at 10:52; Stop 07/25/16 at 10:53; Status DC Albumin Human 0 ml @ As Directed STK-MED ONCE IV ; Start 07/25/16 at 10:53; Stop 07/25/16 at 10:54; Status DC Amiodarone HCl/ Dextrose (Cordarone) 518 ml @ 34.53 mls/ hr 1X ONCE IV Last administered on 07/25/16t 18:52; Start 07/25/16 at 11:30; Stop 07/26/16 at 02:30 ; Status DC Sodium Bicarbonate 50 meq STK-MED ONCE .ROUTE ; Start 07/25/16 at 11:35; Stop at 11:36; Status DC Protamine Sulfate 50 mg STK-MED ONCE IV ; Start 07/25/16 at 12:31; Stop at 12:32; Status DC Amiodarone HCl (Cordarone) 150 mg STK-MED ONCE .ROUTE ; Start 07/25/16 at 12:37 ; Stop 07/25/16 at 12:38; Status DC Isoflurane (Isoflurane) 90 ml STK-MED ONCE IH ; Start 07/25/16 at 12:42; Stop at 12:43; Status DC Lidocaine HCl (Lidocaine HCl 2% Abboject) 100 mg STK-MED ONCE .ROUTE ; Start 01/31 at 13:07; Stop 07/25/16 at 13:08; Status DC Mannitol (Mannitol) 12.5 g STK-MED ONCE .ROUTE ; Start 07/25/16 at 13:07; Stop 07/25/16 at 13:08; Status DC Calcium Chloride 1,000 mg STK-MED ONCE IV ; Start 07/25/16 at 13:07; Stop at 13:08; Status DC Sodium Bicarbonate 50 meq 50 meq STK-MED ONCE .ROUTE ; Start 07/25/16 at 13:07; Stop 07/25/16 at 13:08; Status DC Albumin Human (Albuminar) 100 ml @ As Directed STK-MED ONCE IV ; Start at 13:07; Stop 07/25/16 at 13:08; Status DC Magnesium Sulfate 5 gm STK-MED ONCE .ROUTE ; Start 07/25/16 at 13:08; Stop 07/25 at 13:09; Status DC Heparin Sodium (Porcine) 28885 unit 30,000 unit STK-MED ONCE .ROUTE ; Start 01/31 at 13:08; Stop 07/25/16 at 13:09; Status DC Clevidipine (Cleviprex) 100 ml @ 0 mls/hr CONT PRN IV PER PROTOCOL; Start 07/25 at 13:45; Stop 07/26/16 at 11:29; Status DC Heparin Sodium (Porcine) 11846 unit 30,000 unit STK-MED ONCE .ROUTE ; Start 01/31 at 13:39; Stop 07/25/16 at 13:40; Status DC Epinephrine HCl/ Sodium Chloride (Adrenalin/Iv Sodium Chloride 0.9% 250ml) 254 ml @ 3.81 mls/hr CONT PRN IV SEE I/O RECORD; Start 07/25/16 at 13:45; Stop at 13:38; Status DC Epinephrine HCl (Epinephrine Syringe) 1 mg STK-MED ONCE .ROUTE ; Start 07/25/16 at 13:52; Stop 07/25/16 at 13:53; Status DC Rocuronium Wayne (Zemuron) 100 mg STK-MED ONCE .ROUTE ; Start 07/25/16 at 13: 57; Stop 07/25/16 at 13:58; Status DC Sodium Bicarbonate 50 meq 50 meq STK-MED ONCE .ROUTE ; Start 07/25/16 at 14:04; Stop 07/25/16 at 14:05; Status DC Procainamide HCl/ Dextrose (Pronestyl) 520 ml @ 15.6 mls/hr CONT PRN IV SEE I/ O RECORD; Start 07/25/16 at 14:30; Stop 07/28/16 at 15:22; Status DC Sodium Bicarbonate 50 meq STK-MED ONCE .ROUTE ; Start 07/25/16 at 14:31; Stop at 14:32; Status DC Sodium Bicarbonate 50 meq STK-MED ONCE .ROUTE ; Start 07/25/16 at 14:31; Stop at 14:32; Status DC Protamine Sulfate 50 mg STK-MED ONCE IV ; Start 07/25/16 at 15:13; Stop at 15:14; Status DC Protamine Sulfate 50 mg STK-MED ONCE IV ; Start 07/25/16 at 15:13; Stop at 15:14; Status DC Isoflurane 90 ml 90 ml STK-MED ONCE IH ; Start 07/25/16 at 15:13; Stop 07/25/16 at 15:14; Status DC Dobutamine HCl/ Dextrose 250 ml @ As Directed STK-MED ONCE IV ; Start 07/25/16 at 15:17; Stop 07/25/16 at 15:18; Status DC Iohexol 100 ml 100 ml STK-MED ONCE .ROUTE Last administered on 07/25/16 15:39 ; Start 07/25/16 at 15:28; Stop 07/25/16 at 15:29; Status DC Norepinephrine Bitartrate 8 mg/ Sodium Chloride 258 ml @ 1.93 mls/hr 1X ONCE IV Last administered on 07/25/16 18:53; Start 07/25/16 at 16:00; Stop at 08:04; Status DC Albumin Human (Plasmanate) 1,000 ml @ As Directed STK-MED ONCE IV ; Start 07/25 at 16:11; Stop 07/25/16 at 16:12; Status DC Heparin Sodium (Porcine) (Heparin Sodium) 10,000 unit STK-MED ONCE .ROUTE ; Start 07/25/16 at 16:19; Stop 07/25/16 at 16:20; Status DC Lidocaine HCl (Lidocaine HCl 2% Abboject) 100 mg STK-MED ONCE .ROUTE ; Start 01/31 at 16:19; Stop 07/25/16 at 16:20; Status DC Mannitol (Mannitol) 12.5 g STK-MED ONCE .ROUTE ; Start 07/25/16 at 16:19; Stop 07/25/16 at 16:20; Status DC Calcium Chloride 1,000 mg STK-MED ONCE IV ; Start 07/25/16 at 16:19; Stop at 16:20; Status DC Sodium Bicarbonate 50 meq STK-MED ONCE .ROUTE ; Start 07/25/16 at 16:19; Stop at 16:20; Status DC Magnesium Sulfate 5 gm STK-MED ONCE .ROUTE ; Start 07/25/16 at 16:19; Stop 07/25 at 16:20; Status DC Heparin Sodium (Porcine) (Heparin Sodium) 10,000 unit STK-MED ONCE .ROUTE ; Start 07/25/16 at 16:20; Stop 07/25/16 at 16:21; Status DC Lidocaine HCl (Lidocaine HCl 2% Abboject) 100 mg STK-MED ONCE .ROUTE ; Start 01/31 at 16:20; Stop 07/25/16 at 16:21; Status DC Aminocaproic Acid (Amicar) 5,000 mg STK-MED ONCE IV ; Start 07/25/16 at 16:20; Stop 07/25/16 at 16:21; Status DC Mannitol (Mannitol) 12.5 g STK-MED ONCE .ROUTE ; Start 07/25/16 at 16:20; Stop 07/25/16 at 16:21; Status DC Sodium Bicarbonate 50 meq 50 meq STK-MED ONCE .ROUTE ; Start 07/25/16 at 16:20; Stop 07/25/16 at 16:21; Status DC Albumin Human (Albuminar) 100 ml @ As Directed STK-MED ONCE IV ; Start at 16:20; Stop 07/25/16 at 16:21; Status DC Rocuronium [place] (Zemuron) 50 mg STK-MED ONCE .ROUTE ; Start 07/25/16 at 16:33 ; Stop 07/25/16 at 16:34; Status DC Rocuronium [place] (Zemuron) 50 mg STK-MED ONCE .ROUTE ; Start 07/25/16 at 16:33 ; Stop 07/25/16 at 16:34; Status DC Protamine Sulfate 50 mg STK-MED ONCE IV ; Start 07/25/16 at 16:34; Stop at 16:35; Status DC Sodium Bicarbonate 50 meq STK-MED ONCE .ROUTE ; Start 07/25/16 at 16:36; Stop at 16:37; Status DC Calcium Chloride 1,000 mg STK-MED ONCE IV ; Start 07/25/16 at 16:41; Stop at 16:42; Status DC Epinephrine HCl (Epinephrine Syringe) 1 mg STK-MED ONCE .ROUTE ; Start 07/25/16 at 16:41; Stop 07/25/16 at 16:42; Status DC Sodium Bicarbonate 50 meq STK-MED ONCE .ROUTE ; Start 07/25/16 at 16:52; Stop at 16:53; Status DC Sodium Bicarbonate 50 meq STK-MED ONCE .ROUTE ; Start 07/25/16 at 16:52; Stop at 16:53; Status DC Sodium Bicarbonate 50 meq STK-MED ONCE .ROUTE ; Start 07/25/16 at 16:52; Stop at 16:53; Status DC Vasopressin (Vasostrict) 20 unit STK-MED ONCE .ROUTE ; Start 07/25/16 at 16:54; Stop 07/25/16 at 16:55; Status DC Famotidine (Pepcid) 20 mg STK-MED ONCE .ROUTE ; Start 07/25/16 at 16:56; Stop at 16:57; Status DC Dexamethasone Sodium Phosphate (Decadron) 20 mg STK-MED ONCE .ROUTE ; Start 01/31 at 16:56; Stop 07/25/16 at 16:57; Status DC Diphenhydramine HCl 50 mg 50 mg STK-MED ONCE .ROUTE ; Start 07/25/16 at 16:56; Stop 07/25/16 at 16:57; Status DC Vasopressin/ Dextrose (Vasostrict) 102 ml @ 6 mls/hr CONT PRN IV SEE I/O RECORD Last administered on 08/03/16 18:28; Start 07/25/16 at 17:15; Stop 08/08 at 14:02; Status DC Sodium Bicarbonate 50 meq STK-MED ONCE .ROUTE ; Start 07/25/16 at 17:24; Stop at 17:25; Status DC Sodium Bicarbonate 50 meq 50 meq STK-MED ONCE .ROUTE ; Start 07/25/16 at 17:24; Stop 07/25/16 at 17:25; Status DC Cefazolin Sodium/ Dextrose (Ancef 2gm Premix) 50 ml @ As Directed STK-MED ONCE IV ; Start 07/25/16 at 17:32; Stop 07/25/16 at 17:33; Status DC Sodium Chloride 3 ml 3 ml PRN Q12HR PRN IV AFTER MEDS AND BLOOD DRAWS; Start at 17:30; Stop 07/29/16 at 13:38; Status DC Lactated Ringer's 1,000 ml @ 15 mls/hr Q24H IV Last administered on 07/29/16 16:45; Start 07/25/16 at 17:30; Stop 07/31/16 at 15:33; Status DC Insulin Human Regular/Sodium Chloride (Novolin R Vial/ Iv Normal Saline 150ml) 151.5 ml @ 0 mls/hr CONT PRN PRN IV SEE I/O RECORD Last administered on 03:03; Start 07/25/16 at 17:30; Stop 07/29/16 at 13:51; Status DC Dextrose 25 gm 25 gm PRN Q15MIN PRN IV LOW BLOOD SUGAR; Start 07/25/16 at 17:30 ; Stop 07/29/16 at 13:51; Status DC Dopamine HCl/ Dextrose 250 ml @ 0 mls/hr CONT PRN PRN IV SEE I/O RECORD; Start 07/25/16 at 17:30; Stop 07/26/16 at 11:41; Status DC Amiodarone HCl/ Dextrose (Cordarone) 518 ml @ 33.33 mls/ hr CONT PRN PRN IV SEE COMMENTS; Start 07/25/16 at 17:30; Status UNV Info 1 ea CONT PRN PRN MC SEE COMMENTS; Start 07/25/16 at 17:30; Stop 08/03/16 at 12:57; Status DC Info 1 ea 1 ea CONT PRN PRN MC SEE COMMENTS; Start 07/25/16 at 17:30; Stop at 13:38; Status DC Magnesium Sulfate/ Dextrose (Magnesium Sulfate PREMIX 1GM) 100 ml @ 100 mls/hr PRN DAILY PRN IV FOR MAG < 2.2 Last administered on 07/27/16 10:59; Start 01/31 at 17:30; Stop 08/08/16 at 13:38; Status DC Famotidine (Pepcid) 20 mg BID IVP Last administered on 08/03/16 09:15; Start 07/25/16 at 21:00; Stop 08/03/16 at 15:28; Status DC Metoclopramide HCl (Reglan) 10 mg PRN Q6HRS PRN IV NAUSEA/VOMITING Last administered on 08/07/16 07:26; Start 07/25/16 at 17:30; Stop 08/08/16 at 13:39 ; Status DC Morphine Sulfate 2 mg PRN Q1HR PRN IV PAIN Last administered on 07/28/16 14:21 ; Start 07/25/16 at 17:30; Stop 07/29/16 at 13:38; Status DC Acetaminophen (Tylenol) 650 mg PRN Q4HRS PRN PO MILD PAIN / TEMP; Start at 17:30; Stop 07/29/16 at 13:38; Status DC Acetaminophen (Acetaminophen Supp) 650 mg PRN Q4HRS PRN GA MILD PAIN / TEMP Last administered on 08/03/16 01:04; Start 07/25/16 at 17:30 Meperidine HCl 12.5 mg 12.5 mg PRN Q15MIN PRN IV SHIVERING; Start 07/25/16 at 17:30; Stop 07/29/16 at 13:38; Status DC Propofol (Diprivan) 100 ml @ 0 mls/hr CONT PRN PRN IV POSTOP SEDATION UNTIL EXTUBATE; Start 07/25/16 at 17:30; Stop 07/28/16 at 15:22; Status DC Aspirin (Ecotrin) 325 mg DAILYWBKFT PO Last administered on 07/29/16 09:54; Start 07/26/16 at 08:00; Stop 07/29/16 at 09:59; Status DC Aspirin (Aspirin) 300 mg PRN DAILY PRN GA IF UNABLE TO TAKE PO; Start 07/25/16 at 17:30; Stop 07/26/16 at 12:00; Status DC Acetaminophen/ Hydrocodone Bitart (Lortab 5/325) 1 tab PRN Q4HRS PRN PO MILD PAIN; Start 07/25/16 at 17:30; Stop 08/03/16 at 12:24; Status DC Acetaminophen/ Hydrocodone Bitart 2 tab 2 tab PRN Q4HRS PRN PO MODERATE PAIN, SEVERE PAIN; Start 07/25/16 at 17:30; Stop 08/03/16 at 12:24; Status DC Cefazolin Sodium/ Dextrose 50 ml @ 100 mls/hr Q8H IV ; Start 07/25/16 at 18:00 ; Stop 07/25/16 at 21:42; Status DC Albumin Human 250 ml @ 62.5 mls/hr 1X ONCE IV Last administered on 07/27/16 17:52; Start 07/25/16 at 17:30; Stop 07/25/16 at 21:29; Status DC Midazolam HCl 100 ml @ As Directed STK-MED ONCE IV ; Start 07/25/16 at 18:06; Stop 07/25/16 at 18:07; Status DC Midazolam HCl 100 ml @ 0 mls/hr CONT PRN IV SEE I/O RECORD Last administered on 07/25/16 18:56; Start 07/25/16 at 18:15; Stop 07/26/16 at 08:59; Status DC Vancomycin HCl 1 gm/Sodium Chloride 250 ml @ 250 mls/hr 1X ONCE IV Last administered on 07/25/16 20:56; Start 07/25/16 at 18:15; Stop 07/25/16 at 19:14 ; Status DC Piperacillin Sod/ Tazobactam Sod/ Sodium Chloride (Zosyn/Iv Sodium Chloride 0.9 % 50ml) 50 ml @ 100 mls/hr Q6HRS IV Last administered on 07/31/16 05:32; Start 07/25/16 at 18:15; Stop 07/31/16 at 10:25; Status DC Midazolam HCl (Versed) 2 mg PRN Q20MIN PRN IV SEDATION; Start 07/25/16 at 18:15 ; Stop 07/25/16 at 18:39; Status DC Midazolam HCl 5 mg 5 mg PRN Q30MIN PRN IV SEDATION; Start 07/25/16 at 18:15; Stop 07/25/16 at 18:39; Status DC Vecuronium Wayne 100 mg/ Dextrose 100 ml @ 0 mls/hr 1X ONCE IV Last administered on 07/25/16 19:43; Start 07/25/16 at 18:15; Stop 07/25/16 at 18:17 ; Status DC Midazolam HCl 100 ml @ 0 mls/hr CONT PRN IV SEE I/O RECORD Last administered on 07/28/16 19:40; Start 07/25/16 at 18:45; Stop 08/09/16 at 18:00; Status DC Dobutamine HCl/ Dextrose 250 ml @ 0 mls/hr CONT PRN IV SEE I/O RECORD Last administered on 07/29/16 03:10; Start 07/25/16 at 18:45; Stop 07/29/16 at 13:38 ; Status DC Potassium Chloride 50 ml @ 50 mls/hr Q1H IV Last administered on 07/25/16 22: 58; Start 07/25/16 at 21:00; Stop 07/25/16 at 23:59; Status DC Cefazolin Sodium/ Dextrose 50 ml @ 100 mls/hr Q8H IV Last administered on 07/27 05:34; Start 07/25/16 at 22:00; Stop 07/27/16 at 06:29; Status DC Heparin Sodium (Porcine) 74726 unit/Dextrose 512.5 ml @ 0 mls/hr Q0M ONCE IV Last administered on 07/25/16 22:21; Start 07/25/16 at 22:15; Stop 07/25/16 at 22:16; Status DC Vecuronium Wayne/Dextrose (Norcuron) 100 ml @ 0 mls/hr CONT PRN IV SEE I/O RECORD Last administered on 07/26/16 01:07; Start 07/26/16 at 00:45; Stop 07/29 at 13:38; Status DC Dextrose 25 gm 25 gm 1X ONCE IV Last administered on 07/26/16 01:08; Start at 01:00; Stop 07/26/16 at 01:18; Status DC Amiodarone HCl/ Dextrose (Cordarone) 259 ml @ 17.26 mls/ hr CONT PRN IV SEE I/ O RECORD Last administered on 07/30/16 13:02; Start 07/26/16 at 06:45; Stop at 15:33; Status DC Cefazolin Sodium/ Dextrose 2 gm 2 gm STK-MED ONCE IV ; Start 07/25/16 at 11:00; Stop 07/26/16 at 08:53; Status DC Lactated Ringer's 500 ml @ 5,000 mls/hr PRN Q10MIN PRN IV CVP <14; Start 07/26 at 10:00; Stop 07/29/16 at 13:38; Status DC Fentanyl Citrate (Fentanyl 600 Mcg/30 ml [employer]) 30 ml @ 0 mls/hr CONT PRN IV PROTOCOL Last administered on 07/31/16 09:12; Start 07/26/16 at 10:00; Stop at 13:31; Status DC Fentanyl Citrate (Fentanyl 2ml Vial) 25 mcg PRN Q1HR PRN IV COMM; Start at 10:00; Stop 07/29/16 at 13:38; Status DC Fentanyl Citrate (Fentanyl 2ml Vial) 50 mcg PRN Q1HR PRN IV COMM; Start at 10:00; Stop 07/29/16 at 13:38; Status DC Chlorhexidine Gluconate (Peridex) 15 ml BID MM Last administered on 08/09/16 07:46; Start 07/26/16 at 10:30; Stop 08/09/16 at 18:00; Status DC Sulfur Hexafluoride Microspheres (Lumason) 25 mg STK-MED ONCE IVP ; Start at 11:29; Stop 07/26/16 at 11:30; Status DC Aspirin 300 mg 300 mg DAILY GA Last administered on 07/28/16 07:55; Start 03/03 at 12:00; Stop 07/29/16 at 19:10; Status DC Potassium Chloride (KCl Premix 20meq) 50 ml @ 50 mls/hr 1X ONCE IV Last administered on 07/26/16 12:55; Start 07/26/16 at 12:00; Stop 07/26/16 at 12:59 ; Status DC Sulfur Hexafluoride Microspheres (Lumason) 25 mg 1X ONCE IVP Last administered on 07/26/16 11:45; Start 07/26/16 at 11:45; Stop 07/26/16 at 11:50 ; Status DC Multi-Ingred Cream/Lotion/Oil/ Oint (Artificial Tears Eye Oint) 1 adri BID OU Last administered on 08/09/16 07:46; Start 07/26/16 at 21:00 Ondansetron HCl (Zofran) 4 mg PRN Q6HRS PRN IV NAUSEA/VOMITING; Start 07/27/16 at 07:00; Stop 07/28/16 at 06:59; Status DC Fentanyl Citrate (Fentanyl 2ml Vial) 25 mcg PRN Q5MIN PRN IV MILD PAIN; Start 07/27/16 at 07:00; Stop 07/28/16 at 06:59; Status DC Fentanyl Citrate (Fentanyl 2ml Vial) 50 mcg PRN Q5MIN PRN IV MODERATE PAIN; Start 07/27/16 at 07:00; Stop 07/28/16 at 06:59; Status DC Morphine Sulfate 1 mg 1 mg PRN Q10MIN PRN IV SEVERE PAIN; Start 07/27/16 at 07: 00; Stop 07/28/16 at 06:59; Status DC Lactated Ringer's (Iv Lactated Ringers) 1,000 ml @ 30 mls/hr Q24H IV Last administered on 07/26/16 17:25; Start 07/27/16 at 07:00; Stop 07/27/16 at 18:59 ; Status DC Lidocaine HCl 2 ml PRN 1X PRN ID PRIOR TO IV START; Start 07/27/16 at 07:00; Stop 07/28/16 at 06:59; Status DC Hydromorphone HCl (Dilaudid) 0.5 mg PRN Q10MIN PRN IV SEV PAIN, Second choice; Start 07/27/16 at 07:00; Stop 07/28/16 at 06:59; Status DC Prochlorperazine Edisylate 5 mg 5 mg PACU PRN PRN IV NAUSEA, MRX1; Start at 07:00; Stop 07/28/16 at 06:59; Status DC Heparin Sodium (Porcine) 98729 unit/Dextrose 512.5 ml @ 0 mls/hr Q0M ONCE IV Last administered on 07/26/16 19:40; Start 07/26/16 at 18:30; Stop 07/26/16 at 18:31; Status DC Amiodarone HCl 150 mg/Dextrose 103 ml @ 618 mls/hr 1X ONCE IV Last administered on 07/26/16 19:25; Start 07/26/16 at 19:15; Stop 07/26/16 at 19:24 ; Status DC Norepinephrine Bitartrate 8 mg/ Sodium Chloride 258 ml @ 1.93 mls/hr CONT PRN IV SEE I/O RECORD Last administered on 08/03/16 11:12; Start 07/26/16 at 19:15 ; Stop 08/09/16 at 18:00; Status DC Amiodarone HCl 900 mg/Dextrose 518 ml @ 0 mls/hr CONT PRN IV PER PROTOCOL; Start 07/26/16 at 19:15; Stop 07/27/16 at 12:11; Status DC Milrinone Lactate/ Dextrose 100 ml @ 0 mls/hr CONT PRN IV SEE I/O RECORD Last administered on 07/26/16 20:03; Start 07/26/16 at 19:45; Stop 07/29/16 at 13:51 ; Status DC Calcium Chloride/ Sodium Chloride (Iv Sodium Chloride 0.9% 100ml) 120 ml @ 240 mls/hr 1X ONCE IV Last administered on 07/26/16 21:04; Start 07/26/16 at 21: 30; Stop 07/26/16 at 21:59; Status DC Digoxin 500 mcg 500 mcg 1X ONCE IV Last administered on 07/26/16 21:55; Start 07/26/16 at 21:45; Stop 07/26/16 at 21:46; Status DC Cefazolin Sodium/ Sodium Chloride (Ancef/Iv Sodium Chloride 0.9% 500ml Bag) 500 ml @ 500 mls/hr 1X PERIOP ONCE IRR Last administered on 07/27/16 14:37; Start 07/27/16 at 10:00; Stop 07/27/16 at 10:59; Status DC Vancomycin HCl (Vanco) 10 gm 1X ONCE CEMENT Last administered on 07/27/16 14: 37; Start 07/27/16 at 12:30; Stop 07/27/16 at 12:31; Status DC Rocuronium Wayne (Zemuron) 100 mg STK-MED ONCE .ROUTE ; Start 07/27/16 at 12: 32; Stop 07/27/16 at 12:33; Status DC Lorazepam (Ativan) 2 mg STK-MED ONCE .ROUTE ; Start 07/27/16 at 14:13; Stop 04/02 at 14:14; Status DC Phenylephrine HCl 1 mg 1 mg STK-MED ONCE IV ; Start 07/27/16 at 14:18; Stop 04/02 at 14:19; Status DC Albumin Human (Plasmanate) 250 ml @ 62.5 mls/hr 1X ONCE IV Last administered on 07/27/16 17:52; Start 07/27/16 at 17:15; Stop 07/27/16 at 21:14; Status DC Sodium Bicarbonate 50 meq STK-MED ONCE .ROUTE ; Start 07/27/16 at 17:39; Stop at 17:40; Status DC Sodium Bicarbonate 50 meq 1X ONCE IV Last administered on 07/27/16 17:51; Start 07/27/16 at 18:00; Stop 07/27/16 at 18:01; Status DC Sodium Bicarbonate 50 meq 1X ONCE IV Last administered on 07/27/16 17:52; Start 07/27/16 at 18:00; Stop 07/27/16 at 18:01; Status DC Fentanyl Citrate (Fentanyl 2ml Vial) 25 mcg PRN Q5MIN PRN IV MILD PAIN; Start 07/28/16 at 07:00; Stop 07/29/16 at 06:59; Status DC Fentanyl Citrate (Fentanyl 2ml Vial) 50 mcg PRN Q5MIN PRN IV MODERATE PAIN; Start 07/28/16 at 07:00; Stop 07/29/16 at 06:59; Status DC Morphine Sulfate 1 mg 1 mg PRN Q10MIN PRN IV SEVERE PAIN; Start 07/28/16 at 07: 00; Stop 07/29/16 at 06:59; Status DC Lactated Ringer's (Iv Lactated Ringers) 1,000 ml @ 30 mls/hr Q24H IV Last administered on 07/28/16 06:49; Start 07/28/16 at 06:49; Stop 07/28/16 at 18:48 ; Status DC Lidocaine HCl 2 ml PRN 1X PRN ID PRIOR TO IV START; Start 07/28/16 at 07:00; Stop 07/29/16 at 06:59; Status DC Hydromorphone HCl (Dilaudid) 0.5 mg PRN Q10MIN PRN IV SEV PAIN, Second choice; Start 07/28/16 at 07:00; Stop 07/29/16 at 06:59; Status DC Rocuronium Wayne 50 mg 50 mg STK-MED ONCE .ROUTE ; Start 07/28/16 at 07:27; Stop 07/28/16 at 07:28; Status DC Cefazolin Sodium/ Sodium Chloride (Ancef/Iv Sodium Chloride 0.9% 500ml Bag) 500 ml @ 500 mls/hr 1X PERIOP ONCE IRR Last administered on 07/28/16 09:25; Start 07/28/16 at 08:00; Stop 07/28/16 at 08:59; Status DC Cellulose 1 each STK-MED ONCE .ROUTE ; Start 07/28/16 at 07:42; Stop 07/28/16 at 07:43; Status DC Bupivacaine HCl/ Epinephrine Bitart 50 ml 50 ml STK-MED ONCE .ROUTE ; Start at 07:42; Stop 07/28/16 at 07:43; Status DC Heparin Sodium (Porcine)/Sodium Chloride (Heparin Sodium/ Iv Sodium Chloride 0.9 % 500ml Bag) 505 ml @ 505 mls/hr 1X PERIOP ONCE IRR Last administered on 07/28 10:19; Start 07/28/16 at 08:15; Stop 07/28/16 at 09:14; Status DC Lorazepam 2 mg 2 mg STK-MED ONCE .ROUTE ; Start 07/28/16 at 08:29; Stop at 08:30; Status DC Magnesium Sulfate/ Dextrose (Magnesium Sulfate PREMIX 1GM) 100 ml @ 100 mls/hr 1X ONCE IV Last administered on 07/28/16 13:09; Start 07/28/16 at 09:00; Stop 07/28/16 at 09:59; Status DC Vasopressin (Vasostrict) 20 unit STK-MED ONCE .ROUTE ; Start 07/28/16 at 09:03; Stop 07/28/16 at 09:04; Status DC Epinephrine HCl (Epinephrine Syringe) 1 mg STK-MED ONCE .ROUTE ; Start 07/28/16 at 09:09; Stop 07/28/16 at 09:10; Status DC Calcium Chloride 1,000 mg STK-MED ONCE IV ; Start 07/28/16 at 09:09; Stop at 09:10; Status DC Phenylephrine HCl 1 mg STK-MED ONCE IV ; Start 07/28/16 at 09:54; Stop 07/28/16 at 09:55; Status DC Sevoflurane 60 ml 60 ml STK-MED ONCE IH ; Start 07/28/16 at 09:54; Stop at 09:55; Status DC Epinephrine HCl/ Sodium Chloride (Adrenalin/Iv Sodium Chloride 0.9% 250ml) 254 ml @ 3.81 mls/hr 1X ONCE IV ; Start 07/28/16 at 10:00; Stop 07/29/16 at 19:10 ; Status DC Heparin Sodium (Porcine) 48712 unit 10,000 unit STK-MED ONCE .ROUTE ; Start at 09:57; Stop 07/28/16 at 09:58; Status DC Albumin Human (Plasmanate) 500 ml @ As Directed STK-MED ONCE IV ; Start at 09:57; Stop 07/28/16 at 09:58; Status DC Iohexol 100 ml 100 ml STK-MED ONCE .ROUTE ; Start 07/28/16 at 10:39; Stop at 10:40; Status DC Heparin Sodium/ Sodium Chloride 500 ml @ As Directed STK-MED ONCE .ROUTE ; Start 07/28/16 at 10:39; Stop 07/28/16 at 10:40; Status DC Iohexol 100 ml 100 ml STK-MED ONCE .ROUTE ; Start 07/28/16 at 10:43; Stop at 10:44; Status DC Heparin Sodium/ Sodium Chloride 500 ml @ As Directed STK-MED ONCE .ROUTE ; Start 07/28/16 at 11:21; Stop 07/28/16 at 11:22; Status DC Albuterol Sulfate (Ventolin Neb Soln) 2.5 mg RTQID NEB Last administered on 08:46; Start 07/28/16 at 12:00; Stop 07/30/16 at 17:05; Status DC Furosemide (Lasix) 40 mg 1X ONCE IVP Last administered on 07/28/16 13:16; Start 07/28/16 at 13:15; Stop 07/28/16 at 13:16; Status DC Furosemide (Lasix) 40 mg 1X ONCE IVP Last administered on 07/28/16 13:19; Start 07/28/16 at 14:00; Stop 07/28/16 at 14:01; Status DC Heparin Sodium/ Sodium Chloride 1000 unit 1,000 unit CONT PRN IV ART LINE FLUSH Last administered on 08/02/16 06:47; Start 07/28/16 at 14:45; Stop at 13:39; Status DC Albumin Human 250 ml @ 62.5 mls/hr PRN Q1HR PRN IV SEE COMMENTS Last administered on 08/02/16 16:12; Start 07/28/16 at 15:15; Stop 08/09/16 at 08:10 ; Status DC Furosemide 100 mg/ Sodium Chloride 100 ml @ 5 mls/hr CONT PRN IV SEE I/O RECORD Last administered on 07/30/16 09:50; Start 07/28/16 at 15:30; Stop 07/31 at 13:31; Status DC Potassium Chloride 50 ml @ 50 mls/hr Q1H IV Last administered on 07/28/16 19: 39; Start 07/28/16 at 18:30; Stop 07/28/16 at 20:29; Status DC Potassium Chloride (KCl Premix 20meq) 50 ml @ 50 mls/hr Q1H IV Last administered on 07/29/16 09:36; Start 07/29/16 at 07:00; Stop 07/29/16 at 08:59 ; Status DC Lorazepam (Ativan) 2 mg STK-MED ONCE .ROUTE ; Start 07/28/16 at 08:30; Stop at 08:16; Status DC Aspirin (Arti Aspirin) 325 mg DAILYWBKFT PO Last administered on 08/11/16 09: 40; Start 07/30/16 at 08:00 Docusate Sodium 100 mg 100 mg DAILY PO Last administered on 07/31/16 07:59; Start 07/30/16 at 09:00; Stop 07/31/16 at 11:00; Status DC Dobutamine HCl/ Dextrose 250 ml @ 12.1 mls/hr CONT PRN IV PER PROTOCOL Last administered on 08/02/16 18:03; Start 07/29/16 at 13:30; Stop 08/08/16 at 13:39 ; Status DC Potassium Chloride 50 ml @ 50 mls/hr Q1H IV Last administered on 07/29/16 22: 39; Start 07/29/16 at 20:00; Stop 07/29/16 at 22:59; Status DC Potassium Chloride (KCl Premix 20meq) 50 ml @ 50 mls/hr Q1H IV Last administered on 07/30/16 09:19; Start 07/30/16 at 07:00; Stop 07/30/16 at 08:59 ; Status DC Ipratropium Wayne (Atrovent) 0.5 mg RTQID NEB Last administered on 08/11/16 11:48; Start 07/30/16 at 12:30 Digoxin 500 mcg 500 mcg 1X ONCE IV Last administered on 07/30/16 13:01; Start 07/30/16 at 12:15; Stop 07/30/16 at 12:19; Status DC Dexmedetomidine HCl/Sodium Chloride (Precedex/Iv Sodium Chloride 0.9% 50ml) 50 ml @ 0 mls/hr CONT PRN IV PER PROTOCOL Last administered on 08/04/16 05:20; Start 07/30/16 at 13:30; Stop 08/08/16 at 14:02; Status DC Atropine Sulfate 0.5 mg PRN Q5MIN PRN IV SEE COMMENTS; Start 07/30/16 at 13:30 Amiodarone HCl (Cordarone) 400 mg ONCE ONCE PO Last administered on 07/30/16 15:01; Start 07/30/16 at 13:30; Stop 07/30/16 at 13:46; Status DC Amiodarone HCl (Cordarone) 400 mg BID PO Last administered on 08/08/16 10:54; Start 07/30/16 at 21:00; Stop 08/08/16 at 14:02; Status DC Digoxin 125 mcg 125 mcg DAILY IV Last administered on 08/02/16 08:56; Start at 09:00; Stop 08/03/16 at 14:27; Status DC Albumin Human (Albuminar) 50 ml @ 50 mls/hr 1X ONCE IV Last administered on 16:26; Start 07/30/16 at 16:30; Stop 07/30/16 at 17:29; Status DC Ibuprofen (Motrin) 200 mg PRN Q6HRS PRN PO fever; Start 07/30/16 at 19:45; Stop 08/01/16 at 12:22; Status DC Metoprolol Tartrate (Lopressor) 2.5 mg 1X ONCE IVP Last administered on 20:23; Start 07/30/16 at 20:30; Stop 07/30/16 at 20:31; Status DC Metoprolol Tartrate 5 mg 5 mg PRN Q2HR PRN IVP HYPERTENSION Last administered on 08/04/16 22:09; Start 07/30/16 at 22:30; Stop 08/09/16 at 18:00; Status DC Potassium Chloride (KCl Premix 20meq) 50 ml @ 50 mls/hr Q1H IV Last administered on 07/31/16 09:04; Start 07/31/16 at 07:00; Stop 07/31/16 at 08:59 ; Status DC Metoprolol Tartrate (Lopressor) 12.5 mg BID NG Last administered on 08/11/16 09:41; Start 07/31/16 at 10:00 Docusate Sodium (Colace Solution) 100 mg PRN DAILY PRN PO constipation Last administered on 08/01/16 08:40; Start 07/31/16 at 11:00; Stop 08/08/16 at 13:39 ; Status DC Hydralazine HCl (Apresoline) 10 mg PRN Q2HRS PRN IVP ELEVATED BP, SEE COMMENTS Last administered on 08/01/16 16:35; Start 07/31/16 at 13:30 Fentanyl Citrate (Fentanyl 2ml Vial) 50 mcg PRN Q2HR PRN IV PAIN Last administered on 08/02/16 12:57; Start 07/31/16 at 13:45 Furosemide (Lasix) 40 mg TID IVP Last administered on 08/02/16 05:49; Start at 14:00; Stop 08/02/16 at 15:33; Status DC Alteplase, Recombinant (Cathflo) 2 mg 1X ONCE INT CAT Last administered on 23:34; Start 07/31/16 at 23:15; Stop 07/31/16 at 23:16; Status DC Haloperidol Lactate (Haldol) 5 mg PRN Q6HRS PRN IVP MODERATE AGITATION Last administered on 08/07/16 07:26; Start 08/01/16 at 21:00 Haloperidol Lactate 10 mg 10 mg PRN Q6HRS PRN IVP SEVERE AGITATION Last administered on 08/07/16 21:04; Start 08/01/16 at 23:45 Propofol 100 ml @ 0 mls/hr CONT PRN IV SEE I/O RECORD Last administered on 08/02 11:43; Start 08/02/16 at 02:45; Stop 08/08/16 at 14:02; Status DC Piperacillin Sod/ Tazobactam Sod/ Sodium Chloride (Zosyn/Iv Sodium Chloride 0.9 % 50ml) 50 ml @ 100 mls/hr Q6HRS IV Last administered on 08/02/16 13:17; Start 08/02/16 at 12:00; Stop 08/02/16 at 15:43; Status DC Vancomycin HCl 1 each 1 each PRN DAILY PRN MC SEE COMMENTS Last administered on 08/02/16 13:20; Start 08/02/16 at 11:45; Stop 08/03/16 at 15:24; Status DC Vancomycin HCl 2 gm/Sodium Chloride 500 ml @ 250 mls/hr 1X ONCE IV Last administered on 08/02/16 11:52; Start 08/02/16 at 12:00; Stop 08/02/16 at 13:59 ; Status DC Sodium Chloride (Iv Sodium Chloride 0.9% 500ml Bag) 500 ml @ 500 mls/hr 1X ONCE IV Last administered on 08/02/16 12:39; Start 08/02/16 at 12:45; Stop at 13:44; Status DC Vecuronium Wayne (Norcuron Bolus) 10 mg 1X STAT IV Last administered on 08/02 13:34; Start 08/02/16 at 13:17; Stop 08/02/16 at 13:23; Status DC Vancomycin HCl 1 each 1 each 1X ONCE MC ; Start 08/03/16 at 23:30; Stop at 23:30; Status DC Vancomycin HCl 1.25 gm/Sodium Chloride 250 ml @ 167 mls/hr Q12H IV Last administered on 08/03/16 00:33; Start 08/03/16 at 00:00; Stop 08/03/16 at 11:07 ; Status DC Fentanyl Citrate (Fentanyl 600 Mcg/30 ml [employer]) 30 ml @ 0 mls/hr CONT PRN PRN IV PROTOCOL Last administered on 08/06/16 02:18; Start 08/02/16 at 13:30; Stop at 13:39; Status DC Naloxone HCl 0.4 mg 0.4 mg PRN Q2MIN PRN IV SEE INSTRUCTIONS; Start 08/02/16 at 13:30 Micafungin Sodium 100 mg/Dextrose 100 ml @ 100 mls/hr Q24H IV Last administered on 08/10/16 18:05; Start 08/02/16 at 17:00 Lactated Ringer's 1,000 ml @ 1,000 mls/hr 1X ONCE IV Last administered on 15:45; Start 08/02/16 at 15:45; Stop 08/02/16 at 16:44; Status DC Piperacillin Sod/ Tazobactam Sod 4.5 gm/Sodium Chloride 100 ml @ 200 mls/hr Q6HRS IV Last administered on 08/03/16 12:00; Start 08/02/16 at 18:00; Stop at 14:02; Status DC Albumin Human (Plasmanate) 500 ml @ 125 mls/hr 1X ONCE IV Last administered on 08/02/16 20:37; Start 08/02/16 at 20:30; Stop 08/03/16 at 00:29; Status DC Furosemide (Lasix) 40 mg 1X ONCE IVP Last administered on 08/03/16 00:16; Start 08/02/16 at 20:30; Stop 08/02/16 at 20:31; Status DC Acetaminophen (Tylenol) 650 mg 1X ONCE NG Last administered on 08/03/16 02:03 ; Start 08/03/16 at 02:15; Stop 08/03/16 at 02:16; Status DC Ketorolac Tromethamine 15 mg 15 mg 1X ONCE IV Last administered on 08/03/16 02:03; Start 08/03/16 at 02:15; Stop 08/03/16 at 02:16; Status DC Lactated Ringer's (Iv Lactated Ringers) 500 ml @ 500 mls/hr 1X ONCE IV Last administered on 08/03/16 10:15; Start 08/03/16 at 10:15; Stop 08/03/16 at 11:14 ; Status DC Sodium Bicarbonate 50 meq 1X ONCE IV Last administered on 08/03/16 10:44; Start 08/03/16 at 10:15; Stop 08/03/16 at 10:20; Status DC Calcium Gluconate 1000 mg 1,000 mg 1X ONCE IVP ; Start 08/03/16 at 12:15; Stop 08/03/16 at 12:16; Status DC Sodium Bicarbonate 150 meq/Dextrose/ Sodium Chloride 1,150 ml @ 100 mls/hr [id number] PRN IV .; Start 08/03/16 at 12:30; Stop 08/03/16 at 13:03; Status DC Magnesium Sulfate/ Dextrose 50 ml @ 25 mls/hr PRN DAILY PRN IV for Mag < 1.7 on am labs; Start 08/03/16 at 12:30; Stop 08/09/16 at 18:00; Status DC Sodium Bicarbonate 150 meq/Dextrose 1,150 ml @ 100 mls/hr [id number] IV Last administered on 08/04/16 04:31; Start 08/03/16 at 13:30; Stop 08/04/16 at 08:31 ; Status DC Calcium Chloride 2000 mg/Sodium Chloride 120 ml @ 240 mls/hr 1X ONCE IV Last administered on 08/03/16 13:30; Start 08/03/16 at 13:30; Stop 08/03/16 at 13:59 ; Status DC Piperacillin Sod/ Tazobactam Sod/ Sodium Chloride (Zosyn/Iv Sodium Chloride 0.9 % 50ml) 50 ml @ 100 mls/hr Q6HRS IV Last administered on 08/08/16 12:09; Start 08/03/16 at 18:00; Stop 08/08/16 at 15:35; Status DC Heparin Sodium (Porcine) (Heparin Sodium) 10,000 unit STK-MED ONCE .ROUTE ; Start 08/03/16 at 14:31; Stop 08/03/16 at 14:32; Status DC Lidocaine/Sodium Bicarbonate (Buffered Lidocaine 1%) 20 ml STK-MED ONCE IJ ; Start 08/03/16 at 14:31; Stop 08/03/16 at 14:32; Status DC Heparin Sodium/ Sodium Chloride 60 unit 1X ONCE IV Last administered on 16:17; Start 08/03/16 at 14:45; Stop 08/03/16 at 14:46; Status DC Heparin Sodium (Porcine) (Heparin Sodium) 2,500 unit 1X ONCE INT CAT Last administered on 08/03/16 16:16; Start 08/03/16 at 14:45; Stop 08/03/16 at 14:46 ; Status DC Lidocaine/Sodium Bicarbonate (Buffered Lidocaine 1%) 3 ml 1X ONCE IJ Last administered on 08/03/16 16:16; Start 08/03/16 at 14:45; Stop 08/03/16 at 14:46 ; Status DC Fentanyl Citrate (Fentanyl 2ml Vial) 25 mcg PRN Q5MIN PRN IV MILD PAIN; Start 08/04/16 at 07:00; Stop 08/05/16 at 06:59; Status DC Fentanyl Citrate (Fentanyl 2ml Vial) 50 mcg PRN Q5MIN PRN IV MODERATE PAIN; Start 08/04/16 at 07:00; Stop 08/05/16 at 06:59; Status DC Morphine Sulfate 1 mg 1 mg PRN Q10MIN PRN IV SEVERE PAIN; Start 08/04/16 at 07: 00; Stop 08/05/16 at 06:59; Status DC Lactated Ringer's (Iv Lactated Ringers) 1,000 ml @ 0 mls/hr Q0M IV ; Start at 07:00; Stop 08/04/16 at 18:59; Status DC Lidocaine HCl 2 ml PRN 1X PRN ID PRIOR TO IV START; Start 08/04/16 at 07:00; Stop 08/05/16 at 06:59; Status DC Hydromorphone HCl (Dilaudid) 0.5 mg PRN Q10MIN PRN IV SEV PAIN, Second choice; Start 08/04/16 at 07:00; Stop 08/05/16 at 06:59; Status DC Famotidine (Pepcid) 20 mg DAILY IVP Last administered on 08/05/16 07:43; Start 08/04/16 at 09:00; Stop 08/06/16 at 07:05; Status DC Insulin Aspart (Novolog) 0-7 UNITS TIDWMEALS SQ Last administered on 08/10/16 19:09; Start 08/03/16 at 19:00 Dextrose 12.5 gm 12.5 gm PRN Q15MIN PRN IV SEE COMMENTS; Start 08/03/16 at 18: 30 Sodium Chloride 1,000 ml @ 1,000 mls/hr Q1H PRN IV hypotension; Start 08/03/16 at 18:33; Stop 08/04/16 at 00:32; Status DC Sodium Chloride (Iv Sodium Chloride 0.9% 1000ml Bag) 1,000 ml @ 400 mls/hr Q2H30M PRN IV PATENCY; Start 08/03/16 at 18:33; Stop 08/04/16 at 06:32; Status DC Info 1 each 1 each PRN DAILY PRN MC SEE COMMENTS; Start 08/03/16 at 18:45; Stop 08/06/16 at 09:01; Status DC Sodium Chloride 1,000 ml @ 1,000 mls/hr Q1H PRN IV hypotension; Start 08/04/16 at 07:44; Stop 08/04/16 at 13:43; Status DC Albumin Human (Albuminar) 200 ml @ 200 mls/hr 1X PRN PRN IV Hypotension Last administered on 08/04/16 08:48; Start 08/04/16 at 07:45; Stop 08/04/16 at 13:44 ; Status DC Diphenhydramine HCl (Benadryl) 25 mg 1X PRN PRN IV ITCHING; Start 08/04/16 at 07:45; Stop 08/05/16 at 07:44; Status DC Diphenhydramine HCl (Benadryl) 25 mg 1X PRN PRN IV ITCHING; Start 08/04/16 at 07:45; Stop 08/05/16 at 07:44; Status DC Sodium Chloride (Normal Saline Flush) 10 ml 1X PRN PRN IV AP catheter pack; Start 08/04/16 at 07:45; Stop 08/05/16 at 07:44; Status DC Sodium Chloride 10 ml 10 ml 1X PRN PRN IV EDUCATION ASSOCIATE catheter pack; Start 08/04/16 at 07:45; Stop 08/05/16 at 07:44; Status DC Sodium Chloride (Iv Sodium Chloride 0.9% 1000ml Bag) 1,000 ml @ 400 mls/hr Q2H30M PRN IV PATENCY; Start 08/04/16 at 07:44; Stop 08/04/16 at 19:43; Status DC Info (PHARMACY MONITORING -- do not chart) 1 each PRN DAILY PRN MC SEE COMMENTS ; Start 08/04/16 at 07:45; Stop 08/06/16 at 09:02; Status DC Heparin Sodium (Porcine) 5,000 unit Q12HR SQ Last administered on 08/11/16 09: 00; Start 08/04/16 at 21:00 Sevelamer Carbonate 2.4 gm 2.4 gm BID FT Last administered on 08/09/16 21:42; Start 08/05/16 at 10:00; Stop 08/10/16 at 12:38; Status DC Sodium Chloride 1,000 ml @ 1,000 mls/hr Q1H PRN IV hypotension; Start 08/05/16 at 12:28; Stop 08/05/16 at 18:27; Status DC Albumin Human (Albuminar) 200 ml @ 200 mls/hr 1X PRN PRN IV Hypotension; Start 08/05/16 at 12:30; Stop 08/05/16 at 18:29; Status DC Sodium Chloride (Normal Saline Flush) 10 ml 1X PRN PRN IV AP catheter pack; Start 08/05/16 at 12:30; Stop 08/06/16 at 12:29; Status DC Sodium Chloride 10 ml 10 ml 1X PRN PRN IV EDUCATION ASSOCIATE catheter pack; Start 08/05/16 at 12:30; Stop 08/06/16 at 12:29; Status DC Sodium Chloride (Iv Sodium Chloride 0.9% 1000ml Bag) 1,000 ml @ 400 mls/hr Q2H30M PRN IV PATENCY; Start 08/05/16 at 12:28; Stop 08/06/16 at 00:27; Status DC Info 1 each 1 each PRN DAILY PRN MC SEE COMMENTS; Start 08/05/16 at 12:30; Stop 08/08/16 at 07:15; Status DC Propofol (Diprivan) 20 ml @ As Directed STK-MED ONCE IV ; Start 08/05/16 at 13: 01; Stop 08/05/16 at 13:02; Status DC Rocuronium Wayne (Zemuron) 50 mg STK-MED ONCE .ROUTE ; Start 08/05/16 at 13:01 ; Stop 08/05/16 at 13:02; Status DC Dexamethasone Sodium Phosphate (Decadron) 20 mg STK-MED ONCE .ROUTE ; Start at 13:05; Stop 08/05/16 at 13:06; Status DC Famotidine (Pepcid) 20 mg STK-MED ONCE .ROUTE ; Start 08/05/16 at 13:05; Stop at 13:06; Status DC Ondansetron HCl (Zofran) 4 mg STK-MED ONCE .ROUTE ; Start 08/05/16 at 13:05; Stop 08/05/16 at 13:06; Status DC Midazolam HCl (Versed) 2 mg STK-MED ONCE .ROUTE ; Start 08/05/16 at 13:13; Stop 08/05/16 at 13:14; Status DC Vasopressin (Vasostrict) 20 unit STK-MED ONCE .ROUTE ; Start 08/05/16 at 13:58; Stop 08/05/16 at 13:59; Status DC Sodium Chloride (Sodium Chloride) 50 ml STK-MED ONCE IJ ; Start 08/05/16 at 13: 58; Stop 08/05/16 at 13:59; Status DC Sevoflurane (Ultane) 60 ml STK-MED ONCE IH ; Start 08/05/16 at 14:29; Stop 08/05 at 14:30; Status DC Alprazolam (Xanax) 0.25 mg PRN Q8HRS PRN PEG ANXIETY / AGITATION Last administered on 08/09/16 07:46; Start 08/05/16 at 14:45 Lidocaine HCl (Xylocaine-Mpf 1% Vial) 5 ml STK-MED ONCE INJ Last administered on 08/05/16 14:55; Start 08/05/16 at 14:55; Stop 08/05/16 at 15:11; Status DC Pantoprazole Sodium 40 mg 40 mg DAILYAC IVP Last administered on 08/11/16 09: 40; Start 08/06/16 at 07:30 Linezolid 300 ml @ 300 mls/hr Q12HR IV Last administered on 08/09/16 07:43; Start 08/06/16 at 11:30; Stop 08/09/16 at 07:57; Status DC Sodium Chloride 1,000 ml @ 1,000 mls/hr Q1H PRN IV hypotension; Start 08/06/16 at 13:17; Stop 08/06/16 at 19:16; Status DC Sodium Chloride (Iv Sodium Chloride 0.9% 1000ml Bag) 1,000 ml @ 400 mls/hr Q2H30M PRN IV PATENCY; Start 08/06/16 at 13:17; Stop 08/07/16 at 01:16; Status DC Info (PHARMACY MONITORING -- do not chart) 1 each PRN DAILY PRN MC SEE COMMENTS ; Start 08/06/16 at 13:30; Status UNV Darbepoetin Nick (Aranesp) 60 mcg WEEKLYHS SQ Last administered on 08/07/16 21 :04; Start 08/07/16 at 21:00 Zolpidem Tartrate 5 mg 5 mg HS PO Last administered on 08/11/16 00:02; Start 08/07/16 at 21:00 Sodium Chloride 1,000 ml @ 1,000 mls/hr Q1H PRN IV hypotension; Start 08/08/16 at 07:01; Stop 08/08/16 at 13:00; Status DC Albumin Human (Albuminar) 200 ml @ 200 mls/hr 1X PRN PRN IV Hypotension Last administered on 08/08/16 09:43; Start 08/08/16 at 07:15; Stop 08/08/16 at 13:14 ; Status DC Acetaminophen (Tylenol) 500 mg 1X PRN PRN PO MILD PAIN / TEMP; Start 08/08/16 at 07:15; Stop 08/09/16 at 07:14; Status DC Diphenhydramine HCl (Benadryl) 25 mg 1X PRN PRN IV ITCHING; Start 08/08/16 at 07:15; Stop 08/09/16 at 07:14; Status DC Diphenhydramine HCl (Benadryl) 25 mg 1X PRN PRN IV ITCHING; Start 08/08/16 at 07:15; Stop 08/09/16 at 07:14; Status DC Labetalol HCl (Normodyne) 10 mg PRN Q1HR PRN IVP SBP > 180; Start 08/08/16 at 07:15; Stop 08/09/16 at 07:14; Status DC Clonidine HCl 0.1 mg 0.1 mg 1X PRN PRN PO SBP > 180; Start 08/08/16 at 07:15; Stop 08/09/16 at 07:14; Status DC Sodium Chloride (Iv Sodium Chloride 0.9% 1000ml Bag) 1,000 ml @ 400 mls/hr Q2H30M PRN IV PATENCY; Start 08/08/16 at 07:01; Stop 08/08/16 at 19:00; Status DC Info (PHARMACY MONITORING -- do not chart) 1 each PRN DAILY PRN MC SEE COMMENTS ; Start 08/08/16 at 07:15 Amiodarone HCl 400 mg 400 mg DAILY PO Last administered on 08/11/16 09:42; Start 08/09/16 at 09:00 Piperacillin Sod/ Tazobactam Sod/ Sodium Chloride (Zosyn/Iv Sodium Chloride 0.9 % 50ml) 50 ml @ 100 mls/hr Q8HRS IV Last administered on 08/11/16 05:48; Start 08/08/16 at 22:00 Linezolid (Zyvox) 600 mg BID PEG Last administered on 08/11/16 09:42; Start at 21:00 Lactobacillus Acidophilus (Bacid, Rafaela-Bid) 1 tab TIDWMEALS PO Last administered on 08/11/16 09:41; Start 08/09/16 at 08:00 Calcium Carbonate/ Glycine (Tums) 1,000 mg TID PO Last administered on 09:40; Start 08/09/16 at 09:00 Heparin Sodium (Porcine) (Heparin Sodium) 10,000 unit STK-MED ONCE .ROUTE ; Start 08/09/16 at 14:49; Stop 08/09/16 at 14:50; Status DC Lidocaine/ Epinephrine 20 ml 20 ml STK-MED ONCE .ROUTE ; Start 08/09/16 at 14:49 ; Stop 08/09/16 at 14:50; Status DC Heparin Sodium/ Sodium Chloride 500 ml @ As Directed STK-MED ONCE .ROUTE ; Start 08/09/16 at 14:49; Stop 08/09/16 at 14:50; Status DC Heparin Sodium/ Sodium Chloride 1,000 unit 1X ONCE IART Last administered on 15:44; Start 08/09/16 at 15:30; Stop 08/09/16 at 15:31; Status DC Heparin Sodium (Porcine) (Heparin Sodium) 2,600 unit 1X ONCE INT CAT Last administered on 08/09/16 15:44; Start 08/09/16 at 15:30; Stop 08/09/16 at 15:31 ; Status DC Lidocaine/ Epinephrine (Xylocaine 1%-Epi 1:100,000) 20 ml 1X ONCE INJ Last administered on 08/09/16 15:44; Start 08/09/16 at 15:30; Stop 08/09/16 at 15:31 ; Status DC Sevelamer Carbonate (Renvela) 7.2 gm DAILY PO Last administered on 08/11/16 09 :00; Start 08/10/16 at 10:30 Info (PHARMACY MONITORING -- do not chart) 1 each PRN DAILY PRN MC SEE COMMENTS ; Start 08/10/16 at 16:00; Stop 08/11/16 at 08:58; Status DC Info (PHARMACY MONITORING -- do not chart) 1 each PRN DAILY PRN MC SEE COMMENTS ; Start 08/10/16 at 16:00; Status UNV Sevelamer Carbonate (Renvela) 7.2 gm DAILY PEG ; Start 08/12/16 at 09:00; Status UNV Active Scripts Active Reported Amlodipine Besylate 5 Mg Tablet 5 Mg PO DAILY Pradaxa (Dabigatran Etexilate Mesylate) 150 Mg Capsule 1 Cap PO BID Metoprolol Succinate ( Xl ) (Metoprolol Succinate) 100 Mg Tab.er.24h 1 Tab PO DAILY Vitals/I & O Vital Sign - Last 24 Hours 08/10/16 08/10/16 08/10/16 08/10/16 12:34 13:00 14:00 15:00 Pulse 84 87 100 Resp 24 20 22 B/P 119/65 115/72 110/76 Pulse Ox 100 100 100 98 O2 Delivery Tracheal Collar Tracheal Collar Tracheal Collar Tracheal Collar O2 Flow Rate 10.0 08/10/16 08/10/16 08/10/16 08/10/16 15:36 16:00 16:00 17:00 Temp 97.5 97.5 Pulse 92 90 Resp 27 27 B/P 124/71 Pulse Ox 100 99 100 O2 Delivery Tracheal Collar Tracheal Collar Trach Collar Tracheal Collar O2 Flow Rate 10.0 08/10/16 08/10/16 08/10/16 08/10/16 18:00 19:00 20:00 20:00 Temp 97.8 97.8 Pulse 90 94 98 Resp 25 24 23 B/P 128/69 140/72 137/79 Pulse Ox 100 100 100 O2 Delivery Tracheal Collar Tracheal Collar Tracheal Collar Trach Collar 08/10/16 08/10/16 08/10/16 08/10/16 20:26 21:00 21:30 22:00 Pulse 102 96 85 Resp 24 25 B/P 133/66 133/66 121/57 Pulse Ox 100 100 100 O2 Delivery Tracheal Collar Tracheal Collar Tracheal Collar O2 Flow Rate 10.0 08/10/16 08/10/16 08/10/16 08/11/16 23:00 23:59 23:59 01:00 Temp 98.0 98.0 Pulse 82 80 71 Resp 25 24 22 B/P 114/65 132/67 110/62 Pulse Ox 100 100 100 O2 Delivery Tracheal Collar Trach Collar Tracheal Collar Tracheal Collar 08/11/16 08/11/16 08/11/16 08/11/16 02:00 03:00 04:00 04:00 Temp 98.3 98.3 Pulse 83 81 89 Resp 25 18 24 B/P 124/72 119/67 137/71 Pulse Ox 100 100 100 O2 Delivery Tracheal Collar Tracheal Collar Trach Collar Tracheal Collar 08/11/16 08/11/16 08/11/16 08/11/16 05:00 06:00 07:00 08:00 Temp 98.0 98.0 Pulse 83 86 82 Resp 21 22 22 B/P 114/71 114/73 129/67 Pulse Ox 100 100 100 O2 Delivery Tracheal Collar Tracheal Collar Tracheal Collar Trach Collar 08/11/16 08/11/16 08/11/16 08/11/16 08:00 08:18 09:18 09:41 Pulse 80 79 88 Resp 18 20 B/P 136/74 132/71 132/71 Pulse Ox 100 100 O2 Delivery Tracheal Collar Tracheal Collar O2 Flow Rate 10.0 08/11/16 08/11/16 08/11/16 08/11/16 09:42 10:00 11:07 11:49 Pulse 79 68 85 Resp 18 B/P 132/71 128/69 133/77 Pulse Ox 100 100 100 O2 Delivery Tracheal Collar T-Tube Tracheal Collar O2 Flow Rate 8.0 Intake and Output 08/10/16 08/10/16 08/11/16 14:59 22:59 06:59 Intake Total 80 ml 1525 ml 834 ml Output Total 50 ml 75 ml 20 ml Balance 30 ml 1450 ml 814 ml Problem List Problems Medical Problems: (1) CAD (coronary artery disease), [place] coronary artery Status: Acute (2) Chest pain Status: Acute (3) STEMI (ST elevation myocardial infarction) Status: Acute Assessment Stable post-PEG; tolerating feedidngs. Plan of Care: Continue current Tx, Mgmt Plan of Care Note OK to transfer to LT[facility] from our standpoint. KEVAN HADDAD MD Aug 11, 2016 12:30
[2016-08-11 12:50] LABS: ANISOCYTOSIS SLIGHT; PLT ESTIMATE ADEQUATE (ADEQUATE)
--- NOTE | 2016-08-11 15:04 | PDOC ---
PROGRESS NOTES Assessment Assessment Metabolic encephalopathy. Respiratory failure. Small right SDH ? Infarct suspicious. S/p CABG. CAD GA VT PAD Cardiomyopathy. AFib CHF, EF 25% Cardiogenic shock. DM Hypocalcemia. Anemia. 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 RECOMMENDATIONS/PLAN: He has been on ASA 325 mg daily. Continue cardiac and medical treatment. No brain MRI due to cardiac wires. OT/PT Rehab. Discussed with his at bedside on 08/09 and again with his and sister at bedside on 08/10. MRI was considered to confirm infarct if there was one, but contraindicated due to cardiac wires and would not change treatment and care. SUBJECTIVE: Awake from time to time. OBJECTIVE: Unable to communicate. PAST MEDICAL AND SURGICAL HISTORY: Please see H&P ALLERGY: Reviewed. MEDICATIONS: Refer to [facility] REVIEW OF SYSTEMS: Constitutional: weakness. Head: No recent traumatic brain or head injury. Skin: Edema noted. Ear: No infection Eyes: No vision loss. Nose: No bleeding or purulent discharges. Hearing: No hearing decrease. Neck: No injury. Cardiac: GA, s/p CABG, AFib, HTN Pulmonary: Respiratory failure. GI: No GI Ulcer, GI bleeding Urinary/genital: UTI. Endocrine: Diabetes Mellitus. Skeletomuscular: Generalized weakness. Neurological: see HP. Psychiatric: Denies drug use/abuse. Otherwise, not [id number] review of systems. PHYSICAL EXAMINATION: General appearance in subacute distress. HEENT: Normocephalic and nontraumatic. Eyes, nose, ears, and throat are unremarkable. Hearing decrease. Neck is supple. No lymphadenopathy. No Crepitus. Cardiovascular: S1, S2, irregular rate and rhythm. Pulmonary: On vent. Abdomen: Bowel sounds are positive. Extremities: Edema. NEUROLOGICAL EXAMINATION: Awake from time to time. Not oriented to time, place but knows person. PERRL. EOMI slow. CN: no acute focal findings. Muscle tone: Decreased. Muscle strength: 3 distal UE, 0-1 proximal UE, 2 distal LE, 0 proximal. DTR: 1 UE, 0-1 at knee. Plantar reflex: Neutral response bilaterally Gait: Unable to walk. Sensory exam: Minimal response to stimuli but was due to motor weakness. Not able to access cerebellar signs. F-T-N test not performed due to not able to perform the test. Objective Objective Vital Signs Date Time Temp Pulse Resp B/P Pulse Ox O2 Delivery O2 Flow Rate FiO2 08/11/16 11:49 100 Tracheal Collar 8.0 08/11/16 11:07 85 133/77 08/11/16 10:00 18 08/11/16 07:00 98.0 98.0 Intake and Output 08/11/16 07:00 Intake Total 2439 ml Output Total 135 ml Balance 2304 ml IV Total 300 ml Tube Feeding 1518 ml Other 621 ml Output Urine Total 135 ml Stool Total 0 ml Gastric Drainage Total 0 ml Vitals Signs Vitals VS - Last 72 Hours, by Label Date Time Temp Pulse Resp B/P Pulse Ox O2 Delivery O2 Flow Rate FiO2 08/11/16 11:49 100 Tracheal Collar 8.0 08/11/16 11:07 85 133/77 100 T-Tube 08/11/16 10:00 68 18 128/69 100 Tracheal Collar 08/11/16 09:42 79 132/71 08/11/16 09:41 88 132/71 08/11/16 09:18 79 20 132/71 08/11/16 08:18 100 Tracheal Collar 10.0 08/11/16 08:00 80 18 136/74 100 Tracheal Collar 08/11/16 08:00 Trach Collar 08/11/16 07:00 98.0 82 22 129/67 100 Tracheal Collar 98.0 08/11/16 06:00 86 22 114/73 100 Tracheal Collar 08/11/16 05:00 83 21 114/71 100 Tracheal Collar 08/11/16 04:00 98.3 89 24 137/71 100 Tracheal Collar 98.3 08/11/16 04:00 Trach Collar 08/11/16 03:00 81 18 119/67 100 Tracheal Collar 08/11/16 02:00 83 25 124/72 100 Tracheal Collar 08/11/16 01:00 71 22 110/62 100 Tracheal Collar 08/10/16 23:59 98.0 80 24 132/67 100 Tracheal Collar 98.0 08/10/16 23:59 Trach Collar 08/10/16 23:00 82 25 114/65 100 Tracheal Collar 08/10/16 22:00 85 25 121/57 100 Tracheal Collar 08/10/16 21:30 96 133/66 08/10/16 21:00 102 24 133/66 100 Tracheal Collar 08/10/16 20:26 100 Tracheal Collar 10.0 08/10/16 20:00 Trach Collar 08/10/16 20:00 97.8 98 23 137/79 100 Tracheal Collar 97.8 08/10/16 19:00 94 24 140/72 100 Tracheal Collar 08/10/16 18:00 90 25 128/69 100 Tracheal Collar 08/10/16 17:00 90 27 124/71 100 Tracheal Collar 08/10/16 16:00 Trach Collar 08/10/16 16:00 97.5 92 27 99 Tracheal Collar 97.5 08/10/16 15:36 100 Tracheal Collar 10.0 08/10/16 15:00 100 22 110/76 98 Tracheal Collar 08/10/16 14:00 87 20 115/72 100 Tracheal Collar 08/10/16 13:00 84 24 119/65 100 Tracheal Collar 08/10/16 12:34 100 Tracheal Collar 10.0 08/10/16 12:00 98.0 80 20 114/68 98 Ventilator 98.0 08/10/16 12:00 Trach Collar 08/10/16 11:00 71 15 107/64 100 Ventilator 08/10/16 10:19 99 Ventilator 08/10/16 10:00 74 16 118/69 100 Ventilator 08/10/16 09:00 73 15 110/63 100 Ventilator 08/10/16 08:35 97 Ventilator 08/10/16 08:00 97.9 76 19 111/63 99 Ventilator 97.9 08/10/16 08:00 Trach Collar 08/10/16 07:00 74 24 129/74 100 Ventilator Laboratory Laboratory Laboratory Tests Test 08/10/16 19:07 08/11/16 04:47 08/11/16 05:45 08/11/16 05:46 Glucose (Fingerstick) 154mg/dL (70-99) 111mg/dL (70-99) White Blood Count 10.0x10^3/uL (4.0-11.0) Red Blood Count 2.56x10^6/uL (4.30-5.70) Hemoglobin 8.4g/dL (13.0-17.5) Hematocrit 24.5% (39.0-53.0) Mean Corpuscular Volume 96fL (79-100) Mean Corpuscular Hemoglobin 33pg (25-35) Mean Corpuscular Hemoglobin Concent 34g/dL (31-37) Red Cell Distribution Width 18.3% (11.5-14.5) Platelet Count 166x10^3/uL (140-400) Neutrophils (%) (Auto) 90% (31-73) Lymphocytes (%) (Auto) 5% (24-48) Monocytes (%) (Auto) 5% (0-9) Eosinophils (%) (Auto) 1% (0-3) Basophils (%) (Auto) 0% (0-3) Neutrophils # (Auto) 9.0x10^3uL (1.8-7.7) Lymphocytes # (Auto) 0.5x10^3/uL (1.0-4.8) Monocytes # (Auto) 0.4x10^3/uL (0.0-1.1) Eosinophils # (Auto) 0.1x10^3/uL (0.0-0.7) Basophils # (Auto) 0.0x10^3/uL (0.0-0.2) Segmented Neutrophils % 90% (35-66) Lymphocytes % 8% (24-48) Monocytes % 2% (0-10) Platelet Estimate Adequate (ADEQUATE) Large Platelets Occ Anisocytosis Slight Sodium Level 133mmol/L (136-145) Potassium Level 4.9mmol/L (3.5-5.1) Chloride Level 98mmol/L (98-107) Carbon Dioxide Level 23mmol/L (21-32) Anion Gap 12 (6-14) Blood Urea Nitrogen 89mg/dL (8-26) Creatinine 3.7mg/dL (0.7-1.3) Estimated GFR (Cockcroft-Gault) 17.0 Glucose Level 123mg/dL (70-99) Calcium Level 8.6mg/dL (8.5-10.1) Test 08/11/16 12:30 Glucose (Fingerstick) 140mg/dL (70-99) Microbiology 08/02/16 Blood Culture - Final, Complete NO GROWTH AFTER 5 DAYS 08/03/16 Sputum Culture - Final, Complete 08/03/16 Sputum Result 1 - Final, Complete 08/03/16 Sputum Result 2 - Final, Complete 08/03/16 Antimicrobic Susceptibility - Final, Complete 08/02/16 Urine Culture - Final, Complete 08/02/16 Urine Culture Result 1 (MILEY) - Final, Complete 08/03/16 Gram Stain - Final, Complete Medication Medications Current Medications Info (PHARMACY MONITORING -- do not chart) 1 each PRN DAILY PRN MC SEE COMMENTS ; Start 08/10/16 at 16:00; Stop 08/11/16 at 08:58; Status DC Info (PHARMACY MONITORING -- do not chart) 1 each PRN DAILY PRN MC SEE COMMENTS ; Start 08/10/16 at 16:00; Status UNV Sevelamer Carbonate (Renvela) 7.2 gm DAILY PEG ; Start 08/12/16 at 09:00; Status UNV Comment Review of Relevant I have reviewed the following items leonidas (where applicable) has been applied. ROXI SCHMITT MD Aug 11, 2016 15:04
--- NOTE | 2016-08-11 19:16 | PDOC ---
PULMONARY PROGRESS NOTES Subjective s/p trach 08/05 Vitals Vital Signs Date Time Temp Pulse Resp B/P Pulse Ox O2 Delivery O2 Flow Rate FiO2 08/11/16 11:49 100 Tracheal Collar 8.0 08/11/16 11:07 85 133/77 08/11/16 10:00 18 08/11/16 07:00 98.0 98.0 General: Alert HEENT: Other (nc at perrl orally intubated nose clease. neck, no lap thyromegaly) Lungs: Clear, Other (The patient had a tracheal shield and was on a ventilator. ) Cardiovascular: S1, S2, Other Abdomen: Soft Extremities: Other (edema) Skin: Warm Labs Laboratory Tests Test 08/10/16 00:39 08/10/16 06:00 08/10/16 06:06 08/10/16 07:44 Glucose (Fingerstick) 146mg/dL (70-99) 134mg/dL (70-99) White Blood Count 8.7x10^3/uL (4.0-11.0) Red Blood Count 2.41x10^6/uL (4.30-5.70) Hemoglobin 7.8g/dL (13.0-17.5) Hematocrit 23.0% (39.0-53.0) Mean Corpuscular Volume 96fL (79-100) Mean Corpuscular Hemoglobin 32pg (25-35) Mean Corpuscular Hemoglobin Concent 34g/dL (31-37) Red Cell Distribution Width 19.1% (11.5-14.5) Platelet Count 140x10^3/uL (140-400) Neutrophils (%) (Auto) 90% (31-73) Lymphocytes (%) (Auto) 5% (24-48) Monocytes (%) (Auto) 5% (0-9) Eosinophils (%) (Auto) 0% (0-3) Basophils (%) (Auto) 0% (0-3) Neutrophils # (Auto) 7.8x10^3uL (1.8-7.7) Lymphocytes # (Auto) 0.5x10^3/uL (1.0-4.8) Monocytes # (Auto) 0.4x10^3/uL (0.0-1.1) Eosinophils # (Auto) 0.0x10^3/uL (0.0-0.7) Basophils # (Auto) 0.0x10^3/uL (0.0-0.2) Sodium Level 136mmol/L (136-145) Potassium Level 4.6mmol/L (3.5-5.1) Chloride Level 95mmol/L (98-107) Carbon Dioxide Level 22mmol/L (21-32) Anion Gap 19 (6-14) Blood Urea Nitrogen 127mg/dL (8-26) Creatinine 4.8mg/dL (0.7-1.3) Estimated GFR (Cockcroft-Gault) 12.6 Glucose Level 153mg/dL (70-99) Calcium Level 8.2mg/dL (8.5-10.1) Phosphorus Level 8.9mg/dL (2.6-4.7) Albumin 2.1g/dL (3.4-5.0) O2 Saturation 96% (92-99) Arterial Blood pH 7.43 (7.35-7.45) Arterial Blood pCO2 at Patient Temp 34mmHg (35-46) Arterial Blood pO2 at Patient Temp 92mmHg (75-108) Arterial Blood HCO3 22mmol/L (21-28) Arterial Blood Base Excess -2mmol/L (-3-3) FiO2 40 Test 08/10/16 13:35 08/10/16 19:07 08/11/16 04:47 08/11/16 05:45 Glucose (Fingerstick) 143mg/dL (70-99) 154mg/dL (70-99) White Blood Count 10.0x10^3/uL (4.0-11.0) Red Blood Count 2.56x10^6/uL (4.30-5.70) Hemoglobin 8.4g/dL (13.0-17.5) Hematocrit 24.5% (39.0-53.0) Mean Corpuscular Volume 96fL (79-100) Mean Corpuscular Hemoglobin 33pg (25-35) Mean Corpuscular Hemoglobin Concent 34g/dL (31-37) Red Cell Distribution Width 18.3% (11.5-14.5) Platelet Count 166x10^3/uL (140-400) Neutrophils (%) (Auto) 90% (31-73) Lymphocytes (%) (Auto) 5% (24-48) Monocytes (%) (Auto) 5% (0-9) Eosinophils (%) (Auto) 1% (0-3) Basophils (%) (Auto) 0% (0-3) Neutrophils # (Auto) 9.0x10^3uL (1.8-7.7) Lymphocytes # (Auto) 0.5x10^3/uL (1.0-4.8) Monocytes # (Auto) 0.4x10^3/uL (0.0-1.1) Eosinophils # (Auto) 0.1x10^3/uL (0.0-0.7) Basophils # (Auto) 0.0x10^3/uL (0.0-0.2) Segmented Neutrophils % 90% (35-66) Lymphocytes % 8% (24-48) Monocytes % 2% (0-10) Platelet Estimate Adequate (ADEQUATE) Large Platelets Occ Anisocytosis Slight Sodium Level 133mmol/L (136-145) Potassium Level 4.9mmol/L (3.5-5.1) Chloride Level 98mmol/L (98-107) Carbon Dioxide Level 23mmol/L (21-32) Anion Gap 12 (6-14) Blood Urea Nitrogen 89mg/dL (8-26) Creatinine 3.7mg/dL (0.7-1.3) Estimated GFR (Cockcroft-Gault) 17.0 Glucose Level 123mg/dL (70-99) Calcium Level 8.6mg/dL (8.5-10.1) Test 08/11/16 05:46 08/11/16 12:30 Glucose (Fingerstick) 111mg/dL (70-99) 140mg/dL (70-99) Laboratory Tests Test 08/11/16 04:47 08/11/16 05:45 08/11/16 05:46 08/11/16 12:30 White Blood Count 10.0x10^3/uL (4.0-11.0) Red Blood Count 2.56x10^6/uL (4.30-5.70) Hemoglobin 8.4g/dL (13.0-17.5) Hematocrit 24.5% (39.0-53.0) Mean Corpuscular Volume 96fL (79-100) Mean Corpuscular Hemoglobin 33pg (25-35) Mean Corpuscular Hemoglobin Concent 34g/dL (31-37) Red Cell Distribution Width 18.3% (11.5-14.5) Platelet Count 166x10^3/uL (140-400) Neutrophils (%) (Auto) 90% (31-73) Lymphocytes (%) (Auto) 5% (24-48) Monocytes (%) (Auto) 5% (0-9) Eosinophils (%) (Auto) 1% (0-3) Basophils (%) (Auto) 0% (0-3) Neutrophils # (Auto) 9.0x10^3uL (1.8-7.7) Lymphocytes # (Auto) 0.5x10^3/uL (1.0-4.8) Monocytes # (Auto) 0.4x10^3/uL (0.0-1.1) Eosinophils # (Auto) 0.1x10^3/uL (0.0-0.7) Basophils # (Auto) 0.0x10^3/uL (0.0-0.2) Segmented Neutrophils % 90% (35-66) Lymphocytes % 8% (24-48) Monocytes % 2% (0-10) Platelet Estimate Adequate (ADEQUATE) Large Platelets Occ Anisocytosis Slight Sodium Level 133mmol/L (136-145) Potassium Level 4.9mmol/L (3.5-5.1) Chloride Level 98mmol/L (98-107) Carbon Dioxide Level 23mmol/L (21-32) Anion Gap 12 (6-14) Blood Urea Nitrogen 89mg/dL (8-26) Creatinine 3.7mg/dL (0.7-1.3) Estimated GFR (Cockcroft-Gault) 17.0 Glucose Level 123mg/dL (70-99) Calcium Level 8.6mg/dL (8.5-10.1) Glucose (Fingerstick) 111mg/dL (70-99) 140mg/dL (70-99) Medications Active Scripts Medications Dose Route/Sig Days Date Category Amlodipine Besylate 5 Mg Tablet 5 Mg PO DAILY 07/20/16 Reported Pradaxa (Dabigatran Etexilate Mesylate) 150 Mg Capsule 1 Cap PO BID 07/20/16 Reported Metoprolol Succinate ( Xl ) (Metoprolol Succinate) 100 Mg Tab.er.24h 1 Tab PO DAILY 07/20/16 Reported Impression . 1. Expected respiratory failure, status post coronary artery bypass grafting. 2. Cardiogenic shock. followed by septic shock, improved 3. Early post-myocardial infarction complicated with ventricular fibrillation , s/p multiple shocks. 4. Status post implantation of Impella from mechanical circulating support. 5. 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 6. Tobacco use in remission. Spirometry revealed an FEV1, which was 3.2 liters preoperatively. 7. Nutrition, currently on tube feeding. 8. History of hypertension. 9. Severe cardiomyopathy ejection fraction 25%. 10. Peripheral artery disease. 11. Atrial fibrillation. 12. Encephalopathy multifactorial (hepatic, metabolic), improved 13. High grade fever, sepsis, ? source, less likely lungs.ct chest reviewed. responding to antibiotics 14. Abnormal LFT due to sepsis, improving 15. renal failure , on HD Plan . Pt weaning with trach shield resp status is compensated stable to transfer to [facility];ect 1. s/p trach 08/05, trach shield as tolerated 1. t espinal as tolerated 2. Continue nutritional support with tube feeding. 3. needs pt/ot 4. HD spoke with VANESSA GREY MD Aug 11, 2016 19:16
[2016-08-12] MEDS ORDERED: SEVELAMER CARBONATE 2.4 GM PACKET. PEG SCH (09:00)
--- NOTE | 2016-08-19 21:50 | DS ---
DATE OF DISCHARGE: 08/11/2016 ADMISSION DIAGNOSIS: Chest pain. DISCHARGE DIAGNOSIS: Postoperative CABG, postoperative tracheostomy and PEG placement. HOSPITAL COURSE: The patient is a pleasant 56-year-old male who presented with chest pain. He ruled in for a myocardial infarction, was taken to the [facility]. He had multivessel disease. He then underwent coronary artery bypass grafting. Post-procedure, he had some draining issues and some infection, but overall did well. We discharged him to the [facility]. DISPOSITION: LTAC. ACTIVITY: As tolerated. DIET: Low sodium. MEDICATIONS: Please see the MRAD. TOTAL TIME: 39 minutes. MICKYL Viviana PEARSON DO DR: BILL/pato JOB#: [id number] / [id number]
[2016-09-05] MEDS ORDERED: METO25TA4 PO (10:46)
[2016-09-05] MEDS ORDERED: POTA40LI3 PEG (10:47)
[2016-09-05] MEDS ORDERED: APIX5TAB PO (10:48)
[2016-09-05] MEDS ORDERED: ASPI81TA44 PO (10:49)
[2016-09-05] MEDS ORDERED: FERR-26 PO (10:50)
[2016-09-05] MEDS ORDERED: FURO20TA3 PEG (10:52)
[2016-09-05] MEDS ORDERED: SEVE800T9 PO (10:53)
[2016-09-05] MEDS ORDERED: CYAN1TAB21 PO (11:00)
[2016-09-05] MEDS ORDERED: DARB10SY IJ (11:00)
[2016-09-05] MEDS ORDERED: CALC500T PO (11:00)
[2016-09-05] MEDS ORDERED: FAMO-63 PO (11:00)
[2016-09-05] MEDS ORDERED: ATOR40TA PO (11:00)
[2016-09-05] MEDS ORDERED: ACIDOPHILUS PROB1 MG PO (11:00)
== END 2016-08-11 14:00 | DRG 1 ==
LOC: ER 09:24 → 2 SOUTH 11:00 → 1 WEST ICU 07-25 10:00
PROVIDERS: ADMIT Internal Medicine; ATTEND Internal Medicine
PROC: 4A023N7 Measurement of Cardiac Sampling and Pressure, Left Heart, Percutaneous Approach (ICD-10-PCS; principal; 2016-07-20)
PROC: B2111ZZ Fluoroscopy of Multiple Coronary Arteries using Low Osmolar Contrast (ICD-10-PCS; 2016-07-20)
PROC: 02H Heart and Great Vessels, Insertion (ICD-10-PCS; 2016-07-25)
PROC: 02100Z9 Bypass Coronary Artery, One Artery from Left Internal Mammary, Open Approach (ICD-10-PCS; 2016-07-25)
PROC: 0211093 Bypass Coronary Artery, Two Arteries from Coronary Artery with Autologous Venous Tissue, Open Approach (ICD-10-PCS; 2016-07-25)
PROC: 5A0221D Assistance with Cardiac Output using Impeller Pump, Continuous (ICD-10-PCS; 2016-07-25)
PROC: 5A1955Z Respiratory Ventilation, Greater than 96 Consecutive Hours (ICD-10-PCS; 2016-07-25)
PROC: 30233L1 Transfusion of Nonautologous Fresh Plasma into Peripheral Vein, Percutaneous Approach (ICD-10-PCS; 2016-07-25)
PROC: 30233N1 Transfusion of Nonautologous Red Blood Cells into Peripheral Vein, Percutaneous Approach (ICD-10-PCS; 2016-07-25)
PROC: 30233R1 Transfusion of Nonautologous Platelets into Peripheral Vein, Percutaneous Approach (ICD-10-PCS; 2016-07-25)
PROC: 30233K1 Transfusion of Nonautologous Frozen Plasma into Peripheral Vein, Percutaneous Approach (ICD-10-PCS; 2016-07-25)
PROC: 5A12012 Performance of Cardiac Output, Single, Manual (ICD-10-PCS; 2016-07-25)
PROC: 03B10ZZ Excision of Left Internal Mammary Artery, Open Approach (ICD-10-PCS; 2016-07-25)
PROC: 06BQ4ZZ Excision of Left Saphenous Vein, Percutaneous Endoscopic Approach (ICD-10-PCS; 2016-07-25)
PROC: 02P Heart and Great Vessels, Removal (ICD-10-PCS; 2016-07-28)
PROC: 0B110F4 Bypass Trachea to Cutaneous with Tracheostomy Device, Open Approach (ICD-10-PCS; 2016-08-05)
PROC: 0DH63UZ Insertion of Feeding Device into Stomach, Percutaneous Approach (ICD-10-PCS; 2016-08-05)
DX: I21.3 ST elevation (STEMI) myocardial infarction of unspecified site (principal); N17.0 Acute kidney failure with tubular necrosis; J96.01 Acute respiratory failure with hypoxia; I49.01 Ventricular fibrillation; A41.9 Sepsis, unspecified organism; G92 Toxic encephalopathy; I62.00 Nontraumatic subdural hemorrhage, unspecified; R57.0 Cardiogenic shock; D68.9 Coagulation defect, unspecified; I13.0 Hypertensive heart and chronic kidney disease with heart failure and stage 1 through stage 4 chronic kidney disease, or unspecified chronic kidney disease; I16.1 Hypertensive emergency; G72.81 Critical illness myopathy; I48.92 Unspecified atrial flutter; Z95.811 Presence of heart assist device; Z99.11 Dependence on respirator [ventilator] status; Z99.2 Dependence on renal dialysis; I25.110 Atherosclerotic heart disease of native coronary artery with unstable angina pectoris; E83.51 Hypocalcemia; E78.5 Hyperlipidemia, unspecified; E11.22 Type 2 diabetes mellitus with diabetic chronic kidney disease; D69.6 Thrombocytopenia, unspecified; G47.00 Insomnia, unspecified; F41.1 Generalized anxiety disorder; F17.210 Nicotine dependence, cigarettes, uncomplicated; E66.9 Obesity, unspecified; E87.5 Hyperkalemia; I25.5 Ischemic cardiomyopathy; E11.40 Type 2 diabetes mellitus with diabetic neuropathy, unspecified; E11.51 Type 2 diabetes mellitus with diabetic peripheral angiopathy without gangrene; I50.9 Heart failure, unspecified; K21.9 Gastro-esophageal reflux disease without esophagitis; I48.2 Chronic atrial fibrillation; N18.9 Chronic kidney disease, unspecified; R13.10 Dysphagia, unspecified; Z79.01 Long term (current) use of anticoagulants; I25.2 Old myocardial infarction; Z79.4 Long term (current) use of insulin; Z79.82 Long term (current) use of aspirin; Z82.49 Family history of ischemic heart disease and other diseases of the circulatory system; Z86.010 Personal history of colon polyps; Z98.61 Coronary angioplasty status
CPT/HCPCS: 33990; 33992; 36415; 36556; 36558; 36569; 36600; 37220; 37224; 70450; 71010; 71250; 74176; 75625; 75710; 76000; 76770; 76937; 77001; 80048; 80053; 80061; 80069; 80076; 80162; 81001; 82248; 82550; 82553; 82565; 82570; 82607; 82803; 82805; 82962; 83036; 83690; 83735; 83880; 84100; 84132; 84145; 84300; 84443; 84484; 84520; 84550; 85007; 85027; 85347; 85384; 85520; 85610; 85730; 86706; 86850; 86900; 86901; 86920; 86927; 87040; 87070; 87086; 87186; 87205; 87324; 87340; 87341; 93005; 93306; 93308; 93312; 93318; 93325; 93458; 93880; 93923; 93970; 93971; 94002; 94003; 94010; 94640; 96374; 96375; 99406; A4215; C1725; C1750; C1769; C1771; C1781; C1885; C1892; C1894; C8924; C9113; G0269; G0481; J0171; J0282; J0360; J0690; J0881; J1100; J1160; J1200; J1250; J1630; J1644; J1815; J1885; J1940; J2020; J2060; J2150; J2248; J2250; J2260; J2270; J2370; J2405; J2440; J2543; J2704; J2765; J2997; J3010; J3370; J3475; J3480; J3490; J7030; J7040; J7042; J7050; J7120; J7644; P9016; P9017; P9035; P9041; P9045; P9046; Q9967; S0028; 97110; 97530; 99285-25; J2001; Q9950

== ENCOUNTER → 2016-10-28 | Outpatient (CLI) | payer BC ==
[2016-09-05 13:40] VITALS: BP 118/79
[~2016-10-28] MED LIST: ACIDOPHILUS PROB1 MG PO; AMLO5TAB2 PO; APIX5TAB PO; ASPI81TA44 PO; ATOR40TA PO; CALC500T PO; CYAN1TAB21 PO; DABI150C PO; DARB10SY IJ; FAMO-63 PO; FERR-26 PO; FURO20TA3 PEG; METO100T11 PO; METO25TA4 PO; POTA40LI3 PEG; SEVE800T9 PO
--- NOTE | 2016-10-28 16:06 | RAD ---
Chest radiograph 10/28/2016 at 1258 hours Indication: CABG Comparison: Chest radiograph 08/11/2016 Technique: PA and lateral views of the chest are provided. Findings: Cardiac mediastinal silhouette is borderline enlarged, similar to the prior examination. Median sternotomy changes are identified in the mediastinum. Epicardial wires are in similar position. Interval removal of a tracheostomy tube and right IJ catheter. Small left pleural effusion with adjacent compressive atelectasis, improved since the prior exam. No pneumothorax. Impression: Post-CABG changes with improved aeration at the left lung base with persistent small left effusion and adjacent subsegmental atelectasis.
== END | disposition home or self-care (01) ==
LOC: RAD 12:34
PROVIDERS: ATTEND Thoracic Surgery (Cardiothoracic Vascular Surgery)
DX: Z48.812 Encounter for surgical aftercare following surgery on the circulatory system (principal); J90 Pleural effusion, not elsewhere classified; J98.11 Atelectasis; Z95.1 Presence of aortocoronary bypass graft; Z98.890 Other specified postprocedural states; Z93.0 Tracheostomy status
CPT/HCPCS: 71020

== ENCOUNTER → 2016-12-12 | Outpatient (CLI) | payer BC ==
[2016-09-05 13:40] VITALS: BP 118/79
--- NOTE | 2016-12-12 11:42 | CARD ---
APPROVED REPORT EXAM: Two-dimensional and M-mode echocardiogram with Doppler and color Doppler. Other Information Quality : Good Rhythm : Atrial Fibrillation INDICATION Ischenmic Cardiomyopathy, STEMI 2D DIMENSIONS RVDd3.4 (2.9-3.5cm)Left Atrium(2D)3.9 (1.6-4.0cm) IVSd1.1 (0.7-1.1cm)Aortic Root(2D)2.8 (2.0-3.7cm) LVDd4.4 (3.9-5.9cm)LVOT Diameter2.2 (1.8-2.4cm) PWd1.2 (0.7-1.1cm)LVDs3.2 (2.5-4.0cm) FS (%) 26.2 %SV44.9 ml LVEF(%)51.7 (>50%) Aortic Valve AoV Peak Akvin.122.2cm/sAoV VTI19.0cm AO Peak GR.6.0mmHgLVOT Peak Kavin.106.3cm/s LVOT VTI 18.13cmAO Mean GR.3mmHg LORETA (VMAX)3.08uw0MEL (VTI)3.77cm2 Mitral Valve MV E Pjqfspod379.3cm/sMV DECEL NNTG68qb MV RJE30haTRX (PHT)8.31cm2 Tricuspid Valve TR P. Mopnuext307uf/sRAP HGZBBUAC3wqAq TR Peak Gr.84jlHvEWOV27pwWo LEFT VENTRICLE The left ventricle is normal size. There is mild asymmetric posterior wall hypertrophy. The systolic function is mildly to moderately impaired. EF 40-45% by visual estimation. The basal to distal septum , basal to mid anterior wall are severely hypokinetic. The remainder of the LV is grossly normal. Dif ficult to estimate wall motion due to afib. Tissue Doppler imaging reveals moderate left ventricular diastolic dysfunction. RIGHT VENTRICLE The right ventricle is normal size. The right ventricular systolic function is normal. ATRIA The left atrium size is normal. The right atrium size is normal. The interatrial septum is intact wit h no evidence for an atrial septal defect or patent foramen ovale as noted on 2-D or Doppler imaging. AORTIC VALVE The aortic valve is calcified but opens well. Doppler and Color Flow revealed mild aortic regurgitati on. There is no significant aortic valvular stenosis. MITRAL VALVE The mitral valve is calcified but opens well. There is no evidence of mitral valve prolapse. There is no mitral valve stenosis. Doppler and Color-flow revealed trace mitral regurgitation. TRICUSPID VALVE The tricuspid valve is normal in structure and function. Doppler and Color Flow revealed mild tricusp id regurgitation. The PA pressure was estimated at 37 mmHg. There is no tricuspid valve stenosis. PULMONIC VALVE Doppler and Color Flow revealed no pulmonic valvular regurgitation. There is no pulmonic valvular rom nosis. GREAT VESSELS The aortic root is normal in size. The ascending aorta is normal in size. The IVC is normal in size a nd collapses >50% with inspiration. PERICARDIAL EFFUSION There is no evidence of significant pericardial effusion. Critical Notification Critical Value: No <Conclusion> The systolic function is mildly to moderately impaired. EF 40-45% by visual estimation. The basal to distal septum, basal to mid anterior wall are severely hypokinetic. The remainder of the LV is grossly normal. Difficult to estimate wall motion due to afib. Doppler and Color Flow revealed mild tricuspid regurgitation. The PA pressure was estimated at 37 mmH g.
== END | disposition home or self-care (01) ==
LOC: ECHO 10:41
PROVIDERS: ATTEND Internal Medicine Cardiovascular Disease
DX: I08.2 Rheumatic disorders of both aortic and tricuspid valves (principal); I48.91 Unspecified atrial fibrillation; I42.9 Cardiomyopathy, unspecified; I21.3 ST elevation (STEMI) myocardial infarction of unspecified site
CPT/HCPCS: 93306

== ENCOUNTER → 2017-01-20 | Outpatient (CLI) | payer BC ==
[2016-09-05 13:40] VITALS: BP 118/79
[~2017-01-20] MED LIST changes: +METO-247 PO; -METO100T11 PO
--- NOTE | 2017-01-20 16:14 | RAD ---
CT of the chest without contrast, 01/20/2017: History: Follow-up lung nodule Noncontrast scans were obtained as requested and compared to a study from 07/22/2016. There is a tiny calcified granuloma in the lateral aspect of the left upper lobe. A nearby tiny slightly dense nodule is also probably a granuloma. It is unchanged since 07/22/2016. There is minimal linear parenchymal scarring. An 8 x 6 mm slightly lobulated noncalcified pulmonary nodule is again identified in the right lower lobe along the posterior aspect of the right hilum. This is best seen on image 135 of series #3. It has shown no definite change since 07/22/2016. No new pulmonary nodule or significant consolidation is seen. There is no evidence of pleural fluid. There has been an interval median sternotomy. There is moderate calcific plaquing of the aorta and its branches including the coronary arteries. The ascending aorta measures 3.7 cm in width and is unchanged. No mediastinal adenopathy is evident. IMPRESSION: 1. Unchanged noncalcified right lower lobe pulmonary nodule. Further CT surveillance is suggested to exclude a slowly growing neoplasm. 2. Old healed granulomatous disease in the chest. 3. No new pulmonary abnormality is detected. PQRS Compliance Statement: One or more of the following individualized dose reduction techniques were utilized for this examination: 1. Automated exposure control 2. Adjustment of the mA and/or kV according to patient size 3. Use of iterative reconstruction technique
== END | disposition home or self-care (01) ==
LOC: CT 13:28
PROVIDERS: ATTEND Thoracic Surgery (Cardiothoracic Vascular Surgery)
DX: R91.1 Solitary pulmonary nodule (principal)
CPT/HCPCS: 71250

== ENCOUNTER → 2017-01-30 | Outpatient (CLI) | payer BC ==
[2016-09-05 13:40] VITALS: BP 118/79
[~2017-01-30] MED LIST changes: +DIGO125T PO; +FURO40TA4 PO; +METO50TA6 PO; +MULT1TAB52 PO; +POTA20TA4 PO; +ZOLP5TAB5 PO
[2017-01-30 13:05] LABS: BASO % 1 % (0-3); EOS % 5 % (0-3); HEMATOCRIT 40.5 % (39.0-53.0); HEMOGLOBIN 13.8 g/dL (13.0-17.5); LYMPH # 2.3 x10^3/uL (1.0-4.8); LYMPH % 33 % (24-48); MEAN CORPUSCULAR HEMOGLOBIN 31 pg (25-35); MEAN CORPUSCULAR HGB CONC 34 g/dL (31-37); MEAN CORPUSCULAR VOLUME 90 fL (79-100); MONO % 7 % (0-9); NEUT % 54 % (31-73); PLATELET COUNT 173 x10^3/uL (140-400); RED BLOOD COUNT 4.48 x10^6/uL (4.30-5.70); RED CELL DISTRIBUTION WIDTH 15.6 % (11.5-14.5); WHITE BLOOD COUNT 6.8 x10^3/uL (4.0-11.0)
[2017-01-30 13:33] LABS: ANION GAP 9 (6-14); BLOOD UREA NITROGEN 25 mg/dL (8-26); CALCIUM 10.1 mg/dL (8.5-10.1); CARBON DIOXIDE 29 mmol/L (21-32); CHLORIDE 103 mmol/L (98-107); CREATININE 1.5 mg/dL (0.7-1.3); GFR 48.2; GLUCOSE 116 mg/dL (70-99); MAGNESIUM 2.4 mg/dL (1.8-2.4); POTASSIUM 4.6 mmol/L (3.5-5.1); SODIUM 141 mmol/L (136-145)
== END | disposition home or self-care (01) ==
LOC: LAB 12:49
PROVIDERS: ATTEND Internal Medicine Cardiovascular Disease
DX: I48.1 Persistent atrial fibrillation (principal)
CPT/HCPCS: 36415; 80048; 80162; 83735; 85025

== ENCOUNTER 2017-02-01 09:40 | Day surgery (SDC) | payer BC ==
[~2017-02-01 09:40] MED LIST changes: +HYDROmorphone 2 MG/ML VIAL IV PRN; +IV RINGERS,LACTATED 1000ML 1,000 ML IV SCH; +LIDOCAINE 1% PF 2 ML VIAL. ID PRN; +METO50TA2 PO; -METO50TA6 PO; +MORPHINE SULFATE 2 MG/ML DISP.SYRIN. IV PRN; +ONDANSETRON PF 4 MG/2 ML VIAL. IV PRN; +PROCHLORPERAZINE 10 MG/2 ML VIAL. IV PRN; +fentaNYL PF VIAL 100 MCG/2 ML VIAL IV PRN
--- NOTE | 2017-02-01 10:00 | EKG ---
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
[2017-02-01] MEDS ORDERED: LIDOCAINE 2% PF Vial for OR 5 ML VIAL. ONE (10:40)
[2017-02-01] MEDS ORDERED: PROPOFOL 40 ML IV ONE (10:40)
[2017-02-01 11:35] VITALS: BP 121/64
--- NOTE | 2017-02-01 16:37 | PDOC4 ---
OPERATIVE NOTE: Procedure. Cardioversion. The patient is a 56-year-old male with a history of coronary disease and previous bypass surgery. He has been in atrial fibrillation with rate control. He is been anticoagulated for over 6 weeks. Recommendation of an attempt at electrocardioversion was made. Risks and benefits were discussed. The patient agreed to proceed. After informed consent was obtained the patient was sedated as per the anesthesiology service. Anterior and posterior patches were placed. The patient was cardioverted from atrial fibrillation to normal sinus rhythm with one attempted 200 J of synchronized energy. The patient awoke normally from his sedation. However approximately 5 minutes after his cardioversion he resumed atrial fibrillation. The patient will be continued on his present medications. Consult dictation will be obtained with the EP service. Conclusions. Initial successful cardioversion of atrial fibrillation to a normal sinus rhythm. The patient then converted back to atrial fibrillation approximate 5 minutes after the procedure. NGUYEN BINGHAM MD Feb 01, 2017 16:37
== END 2017-02-01 12:02 | disposition home or self-care (01) ==
LOC: SURG 09:40
PROVIDERS: ATTEND Internal Medicine Cardiovascular Disease
DX: I48.1 Persistent atrial fibrillation (principal); I25.10 Atherosclerotic heart disease of native coronary artery without angina pectoris; Z95.1 Presence of aortocoronary bypass graft; I42.9 Cardiomyopathy, unspecified; I25.2 Old myocardial infarction; I08.2 Rheumatic disorders of both aortic and tricuspid valves; Z79.899 Other long term (current) drug therapy
CPT/HCPCS: 92960; 93005; J2704; J2001

== ENCOUNTER → 2017-03-13 | Outpatient (CLI) | payer BC ==
[~2017-03-13] MED LIST changes: -HYDROmorphone 2 MG/ML VIAL IV PRN; -IV RINGERS,LACTATED 1000ML 1,000 ML IV SCH; -LIDOCAINE 1% PF 2 ML VIAL. ID PRN; -METO50TA2 PO; +METO50TA6 PO; -MORPHINE SULFATE 2 MG/ML DISP.SYRIN. IV PRN; -ONDANSETRON PF 4 MG/2 ML VIAL. IV PRN; -PROCHLORPERAZINE 10 MG/2 ML VIAL. IV PRN; -fentaNYL PF VIAL 100 MCG/2 ML VIAL IV PRN
--- NOTE | 2017-03-13 11:32 | CARD ---
APPROVED REPORT EXAM: Two-dimensional and M-mode echocardiogram with Doppler and color Doppler. Other Information Quality : Good INDICATION Atrial Fibrillation 2D DIMENSIONS Left Atrium(2D)3.8 (1.6-4.0cm)IVSd1.3 (0.7-1.1cm) Aortic Root(2D)3.3 (2.0-3.7cm)LVDd4.6 (3.9-5.9cm) LVOT Diameter2.0 (1.8-2.4cm)PWd1.3 (0.7-1.1cm) LVDs3.9 (2.5-4.0cm)FS (%) 14.1 % SV29.1 mlLVEF(%)30.1 (>50%) Aortic Valve AoV Peak Kavin.141.2cm/sAoV VTI25.4cm AO Peak GR.8.0mmHgLVOT Peak Kavin.41.4cm/s AO Mean GR.3mmHgAVA (VMAX)0.91cm2 LORETA (VTI)1.96fj5IS P 1/2 Rscm254gw Mitral Valve MV E Rrszompj841.8cm/sMV DECEL AMAJ314vy MV A Velocity0.5cm/sE/A Mbibt945.6 Tricuspid Valve TR P. Eftmvefu017sf/sRAP EHVLNROM9jgZj TR Peak Gr.69miSrTGWW54ntLi LEFT VENTRICLE The Left Ventricle is mildly dilated. There is mild concentric left ventricular hypertrophy. Left bailee tricle systolic function is moderately to severely impaired. The Ejection Fraction is 25-30%. There i s global hypokinesis of the left ventricle. The mid to distal anterior wall, apex and distal inferior wall is severely hypokinetic. Tissue Doppler imaging reveals abnormal left ventricular diastolic dys function. RIGHT VENTRICLE The right ventricle is normal size. RV Systolic function is moderately reduced. ATRIA The left atrium is moderately dilated. The right atrium is mildly dilated. The interatrial septum is intact with no evidence for an atrial septal defect or patent foramen ovale as noted on 2-D or Dopple r imaging. AORTIC VALVE The aortic valve is calcified but opens well. Doppler and Color Flow revealed mild aortic regurgitati on. There is no significant aortic valvular stenosis. MITRAL VALVE The mitral valve is calcified but opens well. There is no evidence of mitral valve prolapse. There is no mitral valve stenosis. Doppler and Color-flow revealed mild mitral regurgitation. TRICUSPID VALVE The tricuspid valve is normal in structure. Doppler and Color Flow revealed mild tricuspid regurgitat ion. There is mild pulmonary hypertension. The PA pressure was estimated at 37 mmHg. There is no tric uspid valve prolapse or vegetation. PULMONIC VALVE Doppler and Color Flow revealed no pulmonic valvular regurgitation. There is no pulmonic valvular rom nosis. GREAT VESSELS The aortic root is normal in size. The ascending aorta is normal in size. The IVC is normal in size a nd collapses >50% with inspiration. PERICARDIAL EFFUSION There is no pleural effusion. There is no evidence of significant pericardial effusion. Critical Notification Critical Value: No <Conclusion> There is global hypokinesis of the left ventricle. The mid to distal anterior wall, apex and distal i nferior wall is severely hypokinetic. RV Systolic function is moderately reduced. Left ventricle systolic function is moderately to severely impaired. The Ejection Fraction is 25-30%.
== END | disposition home or self-care (01) ==
LOC: ECHO 08:04
PROVIDERS: ATTEND Internal Medicine Cardiovascular Disease
DX: I48.1 Persistent atrial fibrillation (principal); I34.0 Nonrheumatic mitral (valve) insufficiency; I27.20 Pulmonary hypertension, unspecified
CPT/HCPCS: 93306

== ENCOUNTER 2017-06-08 06:28 | Observation (INO) | payer BC ==
[2017-06-08] MEDS ORDERED: LIDOCAINE 1% PF 2 ML VIAL. ID (07:00)
[2017-06-08] MEDS ORDERED: MORPHINE SULFATE 2 MG/ML DISP.SYRIN. IV (07:00)
[2017-06-08] MEDS ORDERED: fentaNYL PF VIAL 100 MCG/2 ML VIAL IV ×2 (07:00)
[2017-06-08] MEDS ORDERED: ONDANSETRON PF 4 MG/2 ML VIAL. IV ×2 (07:00→10:15)
[2017-06-08] MEDS ORDERED: PROCHLORPERAZINE 10 MG/2 ML VIAL. IV (07:00)
[2017-06-08 07:19] LABS: HEMATOCRIT 39.2 % (39.0-53.0); HEMOGLOBIN 13.4 g/dL (13.0-17.5); MEAN CORPUSCULAR HEMOGLOBIN 31 pg (25-35); MEAN CORPUSCULAR HGB CONC 34 g/dL (31-37); MEAN CORPUSCULAR VOLUME 92 fL (79-100); PLATELET COUNT 143 x10^3/uL (140-400); RED BLOOD COUNT 4.28 x10^6/uL (4.30-5.70); RED CELL DISTRIBUTION WIDTH 14.2 % (11.5-14.5); WHITE BLOOD COUNT 7.2 x10^3/uL (4.0-11.0)
[2017-06-08 07:30] LABS: INR 0.9 (0.8-1.1); PARTIAL THROMBOPLASTIN TIME 38 SEC (24-38)
[2017-06-08] MEDS ORDERED: MIDAZOLAM HCL/PF 2 MG/2 ML VIAL. ×2 (07:42)
[2017-06-08] MEDS ORDERED: PROPOFOL 20 ML IV (07:42)
[2017-06-08] MEDS ORDERED: PROPOFOL 50 ML IV (07:42)
[2017-06-08] MEDS ORDERED: LIDOCAINE 2% PF Vial for OR 5 ML VIAL. (07:42)
[2017-06-08 07:52] LABS: ANION GAP 6 (6-14); BLOOD UREA NITROGEN 30 mg/dL (8-26); CALCIUM 9.4 mg/dL (8.5-10.1); CARBON DIOXIDE 28 mmol/L (21-32); CHLORIDE 110 mmol/L (98-107); CREATININE 1.5 mg/dL (0.7-1.3); GFR 48.1; GLUCOSE 116 mg/dL (70-99); POTASSIUM 5.3 mmol/L (3.5-5.1); SODIUM 144 mmol/L (136-145)
[2017-06-08] MEDS ORDERED: LIDOCAINE 2%/EPI 1:100,000 20 ML VIAL. (08:11)
[2017-06-08] MEDS: BACITRACIN 50,000 UNIT in IV NORMAL SALINE 250ML 250 ML IRR (08:49)
[2017-06-08] MEDS: LIDOCAINE 2%/EPI 1:100,000 20 ML VIAL. IJ (08:49)
[2017-06-08] MEDS: IV RINGERS,LACTATED 1000ML 1,000 ML IV (08:50)
[2017-06-08] MEDS ORDERED: NO ANTICOAGULANT THERAPY. MC (10:15)
[2017-06-08] MEDS: oxyCODONE/APAP 5/325 1 TAB TABLET PO ×2 (14:44→21:10)
[2017-06-08] MEDS ORDERED: ZOLPIDEM 5 MG TABLET. PO (18:30)
[2017-06-08] MEDS ORDERED: cloNIDine HCL 0.2 MG TABLET PO (19:45)
[2017-06-08] MEDS: POTASSIUM CHLORIDE 20 MEQ TABLET.ER. PO (20:18)
[2017-06-08] MEDS: ZOLPIDEM 5 MG TABLET. PO (21:10)
[2017-06-08] MEDS: ATORVASTATIN CALCIUM 40 MG TABLET. PO (21:10)
[2017-06-08] MEDS: METOPROLOL TART IMMED RELEASE 50 MG TABLET. PO (21:11)
[2017-06-09] MEDS: ASPIRIN CHEWABLE 81 MG TABLET. PO (08:52)
[2017-06-09] MEDS: DIGOXIN 125 MCG TABLET. PO (08:52)
[2017-06-09] MEDS: METOPROLOL TART IMMED RELEASE 50 MG TABLET. PO (08:53)
[2017-06-09] MEDS: FERROUS SULFATE 325 MG TABLET. PO (08:53)
[2017-06-09] MEDS: POTASSIUM CHLORIDE 20 MEQ TABLET.ER. PO (08:53)
[2017-06-09] MEDS: FUROSEMIDE 20 MG TABLET PO (08:53)
[2017-06-09] MEDS: oxyCODONE/APAP 5/325 1 TAB TABLET PO (11:55)
== END 2017-06-09 14:30 | disposition home or self-care (01) ==
LOC: SURG 06:28 → 2 SOUTH 07:15
DX: I25.5 Ischemic cardiomyopathy (principal); I25.10 Atherosclerotic heart disease of native coronary artery without angina pectoris; Z95.810 Presence of automatic (implantable) cardiac defibrillator
CPT/HCPCS: 33249; 36415; 71045; 71046; 80048; 85027; 85610; 85730; 93005; 96365; 96366; C1895; G0378; G0379; J0690; J2250; J2704; J3490; J7050

== ENCOUNTER → 2017-06-16 | Outpatient (CLI) | payer BC | END | disposition home or self-care (01) | LOC: US 14:05 | DX: R22.2 Localized swelling, mass and lump, trunk (principal); Z95.0 Presence of cardiac pacemaker | CPT/HCPCS: 76604 ==

== ENCOUNTER → 2017-06-23 | Outpatient (CLI) | payer BC ==
[2017-06-23 15:13] LABS: ADD MAN DIFF? NO
[2017-06-23 15:23] LABS: BASO # 0.1 x10^3/uL (0.0-0.2); BASO % 1 % (0-3); EOS # 0.4 x10^3/uL (0.0-0.7); EOS % 4 % (0-3); HEMATOCRIT 40.5 % (39.0-53.0); HEMOGLOBIN 13.9 g/dL (13.0-17.5); LYMPH # 2.7 x10^3/uL (1.0-4.8); LYMPH % 31 % (24-48); MEAN CORPUSCULAR HEMOGLOBIN 31 pg (25-35); MEAN CORPUSCULAR HGB CONC 34 g/dL (31-37); MEAN CORPUSCULAR VOLUME 90 fL (79-100); MONO # 0.7 x10^3/uL (0.0-1.1); MONO % 8 % (0-9); NEUT # 5.1 x10^3uL (1.8-7.7); NEUT % 57 % (31-73); PLATELET COUNT 224 x10^3/uL (140-400); RED BLOOD COUNT 4.51 x10^6/uL (4.30-5.70); RED CELL DISTRIBUTION WIDTH 14.2 % (11.5-14.5)
[2017-06-23 15:33] LABS: ANION GAP 10 (6-14); BLOOD UREA NITROGEN 26 mg/dL (8-26); CALCIUM 9.6 mg/dL (8.5-10.1); CARBON DIOXIDE 24 mmol/L (21-32); CHLORIDE 106 mmol/L (98-107); CREATININE 1.3 mg/dL (0.7-1.3); GFR 56.7; GLUCOSE 106 mg/dL (70-99); INR 1.1 (0.8-1.1); PARTIAL THROMBOPLASTIN TIME 37 SEC (24-38); POTASSIUM 4.6 mmol/L (3.5-5.1); PROTHROMBIN TIME PATIENT 13.3 SEC (11.7-14.0); SODIUM 140 mmol/L (136-145)
== END | disposition home or self-care (01) ==
LOC: LAB 14:41
DX: Z01.818 Encounter for other preprocedural examination (principal)
CPT/HCPCS: 36415; 80048; 85025; 85610; 85730; 86850; 86900; 86901

== ENCOUNTER 2017-06-26 07:33 | Day surgery (SDC) | payer BC ==
[~2017-06-26 07:33] MED LIST changes: -ACIDOPHILUS PROB1 MG PO; -AMLO5TAB2 PO; -APIX5TAB PO; -ASPI81TA44 PO; -ATOR40TA PO; -CALC500T PO; -CYAN1TAB21 PO; -DABI150C PO; -DARB10SY IJ; -DIGO125T PO; -FAMO-63 PO; -FERR-26 PO; -FURO20TA3 PEG; -FURO40TA4 PO; -METO-247 PO; -METO25TA4 PO; -METO50TA6 PO; +MORPHINE SULFATE 2 MG/ML DISP.SYRIN. IV; -MULT1TAB52 PO; +ONDANSETRON PF 4 MG/2 ML VIAL. IV; -POTA20TA4 PO; -POTA40LI3 PEG; +PROCHLORPERAZINE 10 MG/2 ML VIAL. IV; -SEVE800T9 PO; -ZOLP5TAB5 PO; +fentaNYL PF VIAL 100 MCG/2 ML VIAL IV
[2017-06-26] MEDS: IV RINGERS,LACTATED 1000ML 1,000 ML IV (08:36)
[2017-06-26] MEDS: LIDOCAINE 1% PF 2 ML VIAL. ID (08:36)
[2017-06-26] MEDS ORDERED: fentaNYL PF VIAL 100 MCG/2 ML VIAL (08:43)
[2017-06-26] MEDS ORDERED: ONDANSETRON PF 4 MG/2 ML VIAL. (08:43)
[2017-06-26] MEDS ORDERED: PROPOFOL 20 ML IV (08:43)
[2017-06-26] MEDS ORDERED: DEXAMETHASONE SOD PHOS 20 MG/5 ML VIAL. (08:43)
[2017-06-26] MEDS ORDERED: LIDOCAINE 2% PF Vial for OR 5 ML VIAL. (08:43)
[2017-06-26] MEDS ORDERED: 0.9 % SODIUM CHLORIDE 50 ML VIAL. IJ (09:19)
[2017-06-26] MEDS: BUPIVACAINE MPF 0.5% 30 ML VIAL. INJ (09:55)
[2017-06-26] MEDS: LIDOCAINE 1% 20 ML VIAL. (09:55)
[2017-06-26] MEDS ORDERED: PHENYLEPHRINE 10 MG/ML VIAL. (10:14)
[2017-06-26] MEDS ORDERED: DESFLURANE 16 TO 30 MINUTES. IH (10:14)
== END 2017-06-26 11:34 | disposition home or self-care (01) ==
LOC: SURG 07:33
DX: L76.32 Postprocedural hematoma of skin and subcutaneous tissue following other procedure (principal); I48.2 Chronic atrial fibrillation; I25.5 Ischemic cardiomyopathy; I25.2 Old myocardial infarction; I25.10 Atherosclerotic heart disease of native coronary artery without angina pectoris; E78.00 Pure hypercholesterolemia, unspecified; I48.91 Unspecified atrial fibrillation; E66.9 Obesity, unspecified; I12.9 Hypertensive chronic kidney disease with stage 1 through stage 4 chronic kidney disease, or unspecified chronic kidney disease; N18.9 Chronic kidney disease, unspecified; Z95.0 Presence of cardiac pacemaker; Y83.1 Surgical operation with implant of artificial internal device as the cause of abnormal reaction of the patient, or of later complication, without mention of misadventure at the time of the procedure; Z95.1 Presence of aortocoronary bypass graft; Z98.890 Other specified postprocedural states
CPT/HCPCS: 10140; 36415; 86850; 86900; 86901; C1769; J0690; J1100; J2405; J2704; J3010; J3490; J7040

== ENCOUNTER → 2017-08-08 | Outpatient (CLI) | payer BC | END | disposition home or self-care (01) | LOC: CT 15:09 | DX: R91.8 Other nonspecific abnormal finding of lung field (principal); I12.9 Hypertensive chronic kidney disease with stage 1 through stage 4 chronic kidney disease, or unspecified chronic kidney disease; E11.22 Type 2 diabetes mellitus with diabetic chronic kidney disease; N18.9 Chronic kidney disease, unspecified | CPT/HCPCS: 71250 ==

== ENCOUNTER → 2017-09-19 | Outpatient (CLI) | payer BC ==
[2017-09-19 11:37] LABS: ALBUMIN 3.9 g/dL (3.4-5.0); ALK PHOS 81 U/L (46-116); ALT (SGPT) 34 U/L (16-63); AST (SGOT) 15 U/L (15-37); CHOLESTEROL 107 mg/dL (0-200); DIG 0.8 ng/mL (0.9-2.0); DIRECT BILIRUBIN 0.2 mg/dL (0.0-0.2); HDLC 29 mg/dL (40-60); LDLC 45 mg/dL (0-100); MAGNESIUM 2.2 mg/dL (1.8-2.4); NON-HDL CHOLESTEROL 78 mg/dL (0-129); TOTAL BILIRUBIN 0.7 mg/dL (0.2-1.0); TRIGLYCERIDES 163 mg/dL (0-150); VLDLC 33 mg/dL (0-40)
[2017-09-19 11:43] LABS: CHOLESTEROL/HDL RATIO 3.7
== END | disposition home or self-care (01) ==
LOC: LAB 10:58
DX: E78.5 Hyperlipidemia, unspecified (principal); I42.9 Cardiomyopathy, unspecified
CPT/HCPCS: 36415; 80061; 80076; 80162; 83735

== ENCOUNTER → 2018-01-16 | Outpatient (CLI) | payer BC ==
[2017-06-26 11:08] VITALS: BP 117/68
[~2018-01-16] MED LIST changes: +ACIDOPHILUS PROB1 MG PO; +AMLO5TAB7 PO; +APIX5TAB PO; +ASPI81TA59 PO; +ATOR40TA PO; +CALC500T PO; +CLON0.2T PO; +CYAN1TAB21 PO; +DABI150C PO; +DARB10SY IJ; +DIGO125T PO; +FAMO-63 PO; +FERR325T14 PO; +FURO20TA3 PEG; +FURO20TA3 PO; +FURO40TA4 PO; +METO-247 PO; +METO25TA4 PO; +METO50TA6 PO; -MORPHINE SULFATE 2 MG/ML DISP.SYRIN. IV; +MULT1TAB52 PO; +NAPR-695 PO; +NAPR500T8 PO; +NITR0.4T22 SL; -ONDANSETRON PF 4 MG/2 ML VIAL. IV; +POTA20TA4 PO; +POTA40LI3 PEG; -PROCHLORPERAZINE 10 MG/2 ML VIAL. IV; +SEVE800T9 PO; +ZOLP5TAB5 PO; -fentaNYL PF VIAL 100 MCG/2 ML VIAL IV
[2018-01-16 16:03] LABS: CALCIUM 9.9 mg/dL (8.5-10.1); CREATININE 1.3 mg/dL (0.7-1.3); GFR 56.7; POTASSIUM 4.3 mmol/L (3.5-5.1)
== END | disposition home or self-care (01) ==
LOC: LAB 15:18
PROVIDERS: ATTEND Nurse Practitioner
DX: I13.0 Hypertensive heart and chronic kidney disease with heart failure and stage 1 through stage 4 chronic kidney disease, or unspecified chronic kidney disease (principal); E11.22 Type 2 diabetes mellitus with diabetic chronic kidney disease; I50.22 Chronic systolic (congestive) heart failure; N18.9 Chronic kidney disease, unspecified; I25.2 Old myocardial infarction; E78.5 Hyperlipidemia, unspecified; E78.00 Pure hypercholesterolemia, unspecified; I48.0 Paroxysmal atrial fibrillation; I25.10 Atherosclerotic heart disease of native coronary artery without angina pectoris; K21.9 Gastro-esophageal reflux disease without esophagitis; Z79.4 Long term (current) use of insulin; Z82.49 Family history of ischemic heart disease and other diseases of the circulatory system
CPT/HCPCS: 36415; 80048

== ENCOUNTER → 2018-01-30 | Outpatient (CLI) | payer BC ==
[2017-06-26 11:08] VITALS: BP 117/68
[2018-01-30 15:41] LABS: CALCIUM 9.9 mg/dL (8.5-10.1); CREATININE 1.5 mg/dL (0.7-1.3); GFR 48.1; POTASSIUM 4.5 mmol/L (3.5-5.1)
== END | disposition home or self-care (01) ==
LOC: LAB 15:06
PROVIDERS: ATTEND Nurse Practitioner
DX: I11.0 Hypertensive heart disease with heart failure (principal); I50.22 Chronic systolic (congestive) heart failure
CPT/HCPCS: 36415; 80048

== ENCOUNTER 2018-02-16 10:39 | Day surgery (SDC) | payer BC ==
[~2018-02-16] VITALS: Ht 170.2 cm; Wt 86.2 kg
[~2018-02-16 10:39] MED LIST changes: +HYDROmorphone 2 MG/ML VIAL IV PRN; +IV RINGERS,LACTATED 1000ML 1,000 ML IV SCH; +LIDOCAINE 1% PF 2 ML VIAL. ID PRN; +MORPHINE SULFATE 2 MG/ML VIAL. IV PRN; +ONDANSETRON PF 4 MG/2 ML VIAL. IV PRN; +PROCHLORPERAZINE 10 MG/2 ML VIAL. IV PRN; +fentaNYL PF VIAL 100 MCG/2 ML VIAL IV PRN
[2018-02-16] MEDS ORDERED: BUPIVAC MPF-EPI 0.5%-1:200000 30 ML VIAL. ONE (10:50)
[2018-02-16] MEDS ORDERED: LIDOCAINE 1% 20 ML VIAL. ONE (11:06)
[2018-02-16] MEDS ORDERED: [UNRECOGNIZED DRUG - OTHER] (11:09)
[2018-02-16] MEDS ORDERED: MIDAZOLAM HCL/PF 2 MG/2 ML VIAL. ONE (11:21)
[2018-02-16] MEDS ORDERED: PROPOFOL 20 ML IV ONE (11:21)
[2018-02-16] MEDS ORDERED: LIDOCAINE 2% PF Vial for OR 5 ML VIAL. ONE (11:21)
[2018-02-16] MEDS ORDERED: TRAM50TA PO (13:09)
[2018-02-16 13:15] VITALS: BP 149/79
--- NOTE | 2018-02-16 13:17 | PDOC ---
BRIEF OPERATIVE NOTE Date: Feb 16, 2018 Pre-Op Diagnosis Infected cyst on left leg Heart failure Persistent atrial fibrillation Post-Op Diagnosis Infected cyst on left leg Heart failure Persistent atrial fibrillation Procedure Performed Excision of infected left leg cyst Surgeon Olga Muse MD 3D [employer]er RAFITA Rojas Anesthesiologist Dr Hyman Anesthesia Type: Local, Conscious Sedation Blood Loss 10 mls IV Fluid N/A Urine Output N/A Specimens Obtained Left leg cyst Complications None OLGA MUSE MD Feb 16, 2018 13:17
--- NOTE | 2018-02-16 13:19 | PDOC4 ---
Operative Note Operative Note Date Feb 16, 2018 Preoperative diagnosis Infected cyst on left leg Heart failure Persistent atrial fibrillation Postoperative diagnosis Infected cyst on left leg Heart failure Persistent atrial fibrillation Procedure performed Excision of infected left leg cyst Surgeon Olga Muse MD Advisor To [employer] RAFITA Rojas Anesthesiologist Dr Hyman Anesthesia type Local, Conscious Sedation Blood loss 10 mls IV fluids N/A Urine output N/A Specimens obtained Left leg cyst Complications None Indication The patient is a 57-year-old male who is well known to me. He underwent a complicated CABG in July 2016. He returned to my clinic with what appeared to be a 2 x 2 centimeter cystic lesion at the previous left greater saphenous vein harvest site. An excision was indicated. The risks, benefits and limitations of the procedure were explained to the patient who agreed to proceed. Operation The patient was seen in the preoperative area where his ID was confirmed using 2 unique identifies. The left leg was marked. The patient was then transferred to the operating room and placed supine on the operating table. The left lower leg was prepped and draped the usual sterile surgical fashion. A timeout was then performed. Intravenous sedation was given by anesthesia. 10 mL's of 1% lidocaine was infiltrated around the cystic lesion. An ellipse incision down to the subcutaneous tissue was made with a scalpel. The cyst was circumferentially mobilized with sharp dissection. The whole cyst was completely removed and sent to pathology. Hemostasis was obtained with bipolar cautery. Owing to the circular shape of the wound and was not easy to reapproximate the skin edges. As a result I created skin flaps on each side which certainly reduced attention. 2-0 Vicryl was used to reapproximate the subcutaneous tissues. Interrupted 2-0 nylon's were then used to reapproximate the dermis and epidermis. Dermabond was applied followed by sterile dressing. At the end of procedure the instrument, sponge and needle counts were correct. The patient was then transferred to the PACU in stable condition having tolerated procedure well. OLGA MUSE MD Feb 16, 2018 13:19
--- NOTE | 2018-02-19 23:07 | PATHOLOGY ---
[facility] Accession Number: [id number] . 01 Material submitted: . LEFT LOWER LEG CYST . 01 Clinician provided ICD-10: L72.3 . 01 Clinical history: . Sebaceous cyst . 02 Diagnosis: Skin and subcutaneous tissue, "left lower leg cyst", excision: - SQUAMOUS CELL CARCINOMA, KERATOACANTHOMATOUS SUBTYPE; FOCALLY INVOLVING THE DEEP BIOPSY MARGIN. . 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 02 Electronically signed: . Sharri Edmonds MD, Pathologist NPI- [id number] . 01 Gross description: . The specimen is received in formalin, labeled "Behzad Alvarado, left lower leg cyst" and consists of an unoriented skin ellipse measuring 2.3 x 1.8 x 0.5 cm. The epidermal surface displays an ulcerated pink-branch nodule measuring 1.6 x 1.5 cm that extends to within 0.1 cm of the nearest peripheral edge. It is inked, serially sectioned, and entirely submitted in A1-A4 with tips in A4. (SDY; 02/16/2018) SYU/SYU . 02 Pathologist provided ICD-10: C44.729 . 02 CPT . 790987 Specimen Comment: A courtesy copy of this report has been sent to Specimen Comment: [phone], . Specimen Comment: Report sent to / DR BOURGEOIS Specimen Comment: A duplicate report has been generated due to demographic updates. Performed at: [address], [place], [place] [id number] MD Earl Holm MD Phone: [phone] Performed at: 02 [facility] [address] [place], [place] [id number] MD Neal Cole MD Phone: [phone]
== END 2018-02-16 13:54 | disposition home or self-care (01) ==
LOC: SURG 10:39
PROVIDERS: ATTEND Thoracic Surgery (Cardiothoracic Vascular Surgery)
DX: C44.729 Squamous cell carcinoma of skin of left lower limb, including hip (principal); I25.10 Atherosclerotic heart disease of native coronary artery without angina pectoris; K21.9 Gastro-esophageal reflux disease without esophagitis; E78.5 Hyperlipidemia, unspecified; Z79.4 Long term (current) use of insulin; I25.2 Old myocardial infarction; E78.00 Pure hypercholesterolemia, unspecified; I13.0 Hypertensive heart and chronic kidney disease with heart failure and stage 1 through stage 4 chronic kidney disease, or unspecified chronic kidney disease; E11.22 Type 2 diabetes mellitus with diabetic chronic kidney disease; N18.9 Chronic kidney disease, unspecified; I50.22 Chronic systolic (congestive) heart failure; Z79.899 Other long term (current) drug therapy; Z79.82 Long term (current) use of aspirin; Z98.890 Other specified postprocedural states
CPT/HCPCS: 11603; 88305; A7015; J0690; J2001; J2250; J2704; J7040; J3490

== ENCOUNTER 2018-03-26 08:12 | Day surgery (SDC) | payer BC ==
[~2018-03-26] VITALS: Ht 170.2 cm; Wt 92.1 kg
[~2018-03-26 08:12] MED LIST changes: +DEXAMETHASONE SOD PHOS 20 MG/5 ML VIAL. ONE; +ONDANSETRON PF 4 MG/2 ML VIAL. ONE; +PROPOFOL 20 ML IV ONE; +SACU1TAB4 PO; +TRAM50TA PO; +[UNRECOGNIZED DRUG - OTHER]; +fentaNYL PF VIAL 100 MCG/2 ML VIAL ONE
[2018-03-26] MEDS ORDERED: BUPIVAC MPF-EPI 0.5%-1:200000 30 ML VIAL. ONE (08:58)
[2018-03-26] MEDS ORDERED: NEOMY/BACITR/POLYMYXIN OINT PACKET. TP ONE (09:51)
[2018-03-26] MEDS ORDERED: NEO/POLYMYX/DEXAMETH OPHTH OINTMENT 3.5GM TUBE. ONE (09:51)
--- NOTE | 2018-03-26 10:02 | DISCH ---
DISCHARGE INSTRUCTIONS Condition on Discharge Condition on Discharge: Stable Activity After Discharge Activity Instructions for Disc: Activity as tolerated, Avoid exertion Exercise Instruction after Dis: Progress as tolerated Driving Instructions after Dis: Do not drive today Diet after Discharge Diet after Discharge: Cardiac Diet Texture: Regular Wound Incision Care Wound/Incision Care: Ice to area for comfort, May get incision wet Other wound/incision instructi: may shower Wound Care Equipment: Dressings Checks after Discharge Checks after discharge: Check blood press - daily Follow-Up Follow Up With: Stuart 04/02/18 Treatment/Equipment after DC Adaptive Equipment Issued: None JANE LOPEZ MD Mar 26, 2018 10:02
[2018-03-26 10:30] VITALS: BP 133/72
--- NOTE | 2018-03-26 10:30 | PDOC ---
BRIEF OPERATIVE NOTE Date: Mar 26, 2018 Pre-Op Diagnosis squamous cell carcinoma, LLE, incompletely resected Post-Op Diagnosis same Procedure Performed excision Surgeon Stuart Anesthesia Type: General Blood Loss 5cc IV Fluid 600cc Specimens Obtained skin and subcutaneous tissue 7x2x1 cm Complications none Operative Note # [id number] JANE LOPEZ MD Mar 26, 2018 10:30
--- NOTE | 2018-03-26 11:06 | OP ---
DATE OF SURGERY: 03/26/2018 PREOPERATIVE DIAGNOSIS: Squamous cell carcinoma of the left lower extremity with previous excisions showing involvement at the deep margin. POSTOPERATIVE DIAGNOSIS: Squamous cell carcinoma of the left lower extremity with previous excisions showing involvement at the deep margin. PROCEDURE: Reexcision. SURGEON: Jesus Lopez MD ANESTHESIA: General LMA. ESTIMATED BLOOD LOSS: 5 mL. INTRAVENOUS FLUIDS: 600. INDICATIONS: The patient is a 57-year-old who had a skin lesion resected from his left lower extremity along the path of his vein harvest for his bypass surgery. This showed a squamous cell cancer with some involvement of the deep margin. He is brought for reexcision. DESCRIPTION OF PROCEDURE: The patient brought to the OR, given a general LMA and the left lower extremity prepped and draped in usual sterile fashion. An elliptical skin incision around the previous site was outlined with a marking pen, infiltrated with local anesthetic and incised. The skin and underlying tissue removed en bloc. Hemostasis with cautery. The skin edges were mobilized superiorly and inferiorly. Wound was closed with interrupted 3-0 and 4-0 nylon sutures. Sterile dressing applied. The patient was awakened from his anesthetic and taken to the recovery room in satisfactory condition. JESUS LOPEZ MD DR: JESUS/pato JOB#: [id number] / [id number] OLGA Yo MD
--- NOTE | 2018-03-28 17:11 | PATHOLOGY ---
[facility] Accession Number: [id number] . 01 Material submitted: . SKIN AND SUBCATANEOUS TISSUE LOWER LEFT EXTREMITY, SUTURE AT PROXIMAL END . 01 Clinical history: . Carcinoma . 02 Diagnosis: Segment of skin and subcutaneous tissue, left lower extremity lesion re-excision: - Focal residual invasive well-differentiated squamous cell carcinoma, keratoacanthomatous type. - Inked margins of excision free of neoplasm. - Previous biopsy site changes showing ulceration and acute inflammation with overlying scale crust, fat necrosis, fibrosis, and foreign body giant cell and suture granulomatous reaction. 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 02 Electronically signed: . Neal Cole MD, Pathologist NPI- [id number] . 01 Gross description: . The specimen is received in formalin, labeled "Behzad Alvarado, skin and subcutaneous tissues left lower extremity, suture proximal". Received is an oriented ellipse of skin measuring 6.9 x 2.6 x 1.6 cm in greatest dimensions with a suture placed at one tip designating this as the proximal aspect, which will further be designated as the 12:00 margin. The surgical margins are inked as follows: 12 to 3:00-yellow, 3 to 6:00-blue, and 6 to 12:00-black. The epidermal surface displays a lesion which is poorly circumscribed, irregular in contour (which is partially attached to the underlying epidermis), focally crusted and delgado-brown measuring 2.5 x 1.9 cm. The specimen is submitted representatively as follows: . A1-A9 entire lesion submitted from 12:00 to 6:00 aspects A10 12 and 6:00 tips. (CAA; 03/27/2018) QAC/QAC . 02 Microscopic: . . . 02 Pathologist provided ICD-10: C44.729 . 02 CPT . 181110 Specimen Comment: A courtesy copy of this report has been sent to Specimen Comment: [phone]. Specimen Comment: Report sent to Performed at: 01 [facility] [address] [facility] [address], [place] [id number] MD Earl Holm MD Phone: [phone] Performed at: 02 [facility] [address] [place], [place] [id number] MD Neal Cole MD Phone: [phone]
== END 2018-03-26 10:50 | disposition home or self-care (01) ==
LOC: SURG 08:12
PROVIDERS: ATTEND Surgery
DX: C44.729 Squamous cell carcinoma of skin of left lower limb, including hip (principal); I48.2 Chronic atrial fibrillation; I10 Essential (primary) hypertension; E78.5 Hyperlipidemia, unspecified; I25.5 Ischemic cardiomyopathy; I25.2 Old myocardial infarction; Z91.040 Latex allergy status; Z91.048 Other nonmedicinal substance allergy status; Z88.8 Allergy status to other drugs, medicaments and biological substances; L97.828 Non-pressure chronic ulcer of other part of left lower leg with other specified severity; Z79.82 Long term (current) use of aspirin; Z79.899 Other long term (current) drug therapy; Z95.1 Presence of aortocoronary bypass graft; Z95.810 Presence of automatic (implantable) cardiac defibrillator; Z93.0 Tracheostomy status; Z82.3 Family history of stroke; Z82.49 Family history of ischemic heart disease and other diseases of the circulatory system; Z87.891 Personal history of nicotine dependence; Z72.89 Other problems related to lifestyle
CPT/HCPCS: 11606; 88305; A7015; J0690; J1100; J2405; J2704; J3010; J3490

== ENCOUNTER → 2018-09-04 | Outpatient (CLI) | payer OTHER ==
[~2018-09-04] MED LIST changes: +AMLO5TAB10 PO; -AMLO5TAB7 PO; -CALC500T PO; +CALC500T31 PO; -DEXAMETHASONE SOD PHOS 20 MG/5 ML VIAL. ONE; -HYDROmorphone 2 MG/ML VIAL IV PRN; -IV RINGERS,LACTATED 1000ML 1,000 ML IV SCH; -LIDOCAINE 1% PF 2 ML VIAL. ID PRN; -MORPHINE SULFATE 2 MG/ML VIAL. IV PRN; -ONDANSETRON PF 4 MG/2 ML VIAL. IV PRN; -ONDANSETRON PF 4 MG/2 ML VIAL. ONE; -PROCHLORPERAZINE 10 MG/2 ML VIAL. IV PRN; -PROPOFOL 20 ML IV ONE; -fentaNYL PF VIAL 100 MCG/2 ML VIAL IV PRN; -fentaNYL PF VIAL 100 MCG/2 ML VIAL ONE
--- NOTE | 2018-09-04 13:29 | RAD ---
CT CHEST WO CONTRAST Indication: Lung nodule Technique: Noncontrast CT imaging was performed of the chest, multiplanar reconstruction images submitted. One or more of the following individualized dose reduction techniques were utilized for this examination: 1. Automated exposure control 2. Adjustment of the mA and/or kV according to patient size 3. Use of iterative reconstruction technique. Comparison: August 08, 2017; January 20, 2017 Findings: There are innumerable micronodules of the lower lobes bilaterally right greater than left, somewhat more numerous than 2017 exam although present on that exam. Previously seen more focal dominant right lower lobe nodule about 0.8 to 0.9 cm images 131 series 3 is similar dating back to the 2017 exam. There is no significant pleural or pericardial effusion or pneumothorax. There is no lobar consolidation. There is again single lead left electronic cardiac device. There has been median sternotomy. There is coronary calcification. There is ectatic aortic root about 3.8 cm. There is no new significant lymphadenopathy of the chest. IMPRESSION: 1. Dominant right lower lobe nodule is stable dating back to 2017 exam. There are innumerable micronodules of the lower lobes bilaterally greater on the right more numerous than 2017 exam although in part present previously. While nonspecific, distribution and indolent characteristics would be more commonly associated with sequela of infectious or inflammatory etiologies rather than neoplastic etiology. Electronically signed by: Behzad Dong MD (09/04/2018 1:27 PM) [facility]
== END | disposition home or self-care (01) ==
LOC: CT 13:41
PROVIDERS: ATTEND Thoracic Surgery (Cardiothoracic Vascular Surgery)
DX: I25.10 Atherosclerotic heart disease of native coronary artery without angina pectoris (principal); R91.1 Solitary pulmonary nodule; I77.819 Aortic ectasia, unspecified site
CPT/HCPCS: 71250

== ENCOUNTER → 2020-01-23 | Outpatient (CLI) | payer OTHER ==
[~2020-01-23] MED LIST changes: -DIGO125T PO; +DIGO125T3 PO; +MULT-445 PO; -MULT1TAB52 PO
--- NOTE | 2020-01-23 17:15 | RAD ---
CT CHEST WO CONTRAST Indication: Lung nodule Technique: Noncontrast CT imaging was performed of the chest, multiplanar reconstruction images submitted. One or more of the following individualized dose reduction techniques were utilized for this examination: 1. Automated exposure control 2. Adjustment of the mA and/or kV according to patient size 3. Use of iterative reconstruction technique. Comparison: September 04, 2018; August 08, 2017 Findings: Dominant 0.8-0.9 cm right lower lobe nodule image 30 series 2 is stable. There are again innumerable right lower lobe micronodules, overall fairly similar comparing with the 2019 exam. Small 0.3 cm left lower lobe nodule image 32 series 2 is similar. There is no new infiltrate, pleural or pericardial fluid, or pneumothorax. No new significantly enlarged nodes are identified of the chest. There again has been median sternotomy. There is again ectatic aortic root about 3.8 cm. There is some aortic valvular calcification. There is single lead left electronic cardiac device. IMPRESSION: 1. Pulmonary nodules including dominant right lower lobe nodule are similar. There are again multiple micronodules of the right lower lobe, more likely sequela of infectious or inflammatory etiologies. 2. There is coronary calcification. 3. There is again ectatic aortic root. Electronically signed by: Behzad Dong MD (01/23/2020 5:12 PM) [facility]ENTER[facility]udson
== END ==
LOC: CT 13:15
PROVIDERS: ATTEND Internal Medicine Cardiovascular Disease
DX: R91.1 Solitary pulmonary nodule (principal); I25.10 Atherosclerotic heart disease of native coronary artery without angina pectoris; I77.819 Aortic ectasia, unspecified site; Z95.0 Presence of cardiac pacemaker
CPT/HCPCS: 71250

== ENCOUNTER → 2020-06-29 | Outpatient (CLI) | payer OTHER ==
[~2020-06-29] MED LIST changes: +AMLO-186 PO; -AMLO5TAB10 PO
--- NOTE | 2020-06-29 16:37 | CARD ---
MR#: [id number] Date of Study: 06/29/2020 Ordering Physician: NGUYEN BINGHAM, Referring Physician: NGUYEN BINGHAM, Tech: Larisa Dalrenerichie, [facility] APPROVED REPORT EXAM: Two-dimensional and M-mode echocardiogram with Doppler and color Doppler. Other Information Quality : AverageHR: 70bpm INDICATION Cardiomyopathy Surgery/Intervention ICD/Pacemaker: Date: 2017 CABG: Date: 2016 Site: [place] RISK FACTORS Hypertension Hyperlipidemia 2D DIMENSIONS RVDd3.8 (2.9-3.5cm)Left Atrium(2D)4.1 (1.6-4.0cm) IVSd1.0 (0.7-1.1cm)Aortic Root(2D)3.4 (2.0-3.7cm) LVDd5.1 (3.9-5.9cm)LVOT Diameter2.0 (1.8-2.4cm) PWd1.1 (0.7-1.1cm)LVDs2.7 (2.5-4.0cm) FS (%) 47.4 %SV95.1 ml LVEF(%)58.5 (>50%) Aortic Valve AoV Peak Kavin.138.4cm/sAoV VTI25.4cm AO Peak GR.8.8mmHgLVOT Peak Kavin.110.1cm/s AO Mean GR.4mmHgAVA (VMAX)2.57cm2 AI P 1/2 [id number] Mitral Valve MV E Ekybgrag549.9cm/sMV DECEL [id number] MV A Wcivxshh51.7cm/sE/A Ratio1.8 Pulmonary Valve PV Peak Cdrkbxzh77.9cm/s Tricuspid Valve TR P. Wchkexiw035bk/sRAP ATELPULJ2tlDb TR Peak Gr.70poOqFZIF45naAx LEFT VENTRICLE The left ventricle is normal size. There is borderline concentric left ventricular hypertrophy. The s ystolic function is moderately impaired. EF 40% The distal 1/3 of the LV is severely hypokinetic. Tis steve Doppler imaging reveals moderate left ventricular diastolic dysfunction. No left ventricle thromb us noted on this study. RIGHT VENTRICLE The right ventricle is normal size. There is normal right ventricular wall thickness. The right ventr icular systolic function is normal. There is a pacemaker lead in the right ventricle. ATRIA The left atrium is moderately dilated. The right atrium size is normal. The interatrial septum is int act with no evidence for an atrial septal defect or patent foramen ovale as noted on 2-D or Doppler i maging. AORTIC VALVE The aortic valve is thickened but opens well. Doppler and Color Flow revealed mild aortic regurgitati on. There is no significant aortic valvular stenosis. Calculated aortic valve area is 2.8 cm2 with ma ximum pressure gradient of 9 mmHg and mean pressure gradient of 4 mmHg. MITRAL VALVE The mitral valve is normal in structure and function. There is no evidence of mitral valve prolapse. There is no mitral valve stenosis. Doppler and Color-flow revealed mild mitral regurgitation. TRICUSPID VALVE The tricuspid valve is normal in structure and function. Doppler and Color Flow revealed trace tricus pid regurgitation with an estimated PAP of 39 mmHg. There is no tricuspid valve stenosis. PULMONIC VALVE The pulmonic valve is not well visualized. Doppler and Color Flow revealed trace pulmonic valvular re gurgitation. There is no pulmonic valvular stenosis. GREAT VESSELS The aortic root is normal in size. The IVC is dilated and collapses >50% with inspiration. PERICARDIAL EFFUSION There is no evidence of significant pericardial effusion. Critical Notification Critical Value: No <Conclusion> The distal 1/3 of the LV is severely hypokinetic. There is a pacemaker lead in the right ventricle. Doppler and Color Flow revealed mild aortic regurgitation. Doppler and Color-flow revealed mild mitral regurgitation. Doppler and Color Flow revealed trace tricuspid regurgitation with an estimated PAP of 39 mmHg. Signed by : Robinson Mattson, Electronically Approved : 06/29/2020 16:37:15
== END ==
LOC: ECHO 15:08
PROVIDERS: ATTEND Internal Medicine Cardiovascular Disease
DX: I08.0 Rheumatic disorders of both mitral and aortic valves (principal)
CPT/HCPCS: 93306

== ENCOUNTER → 2020-08-27 | Outpatient (CLI) | payer OTHER ==
--- NOTE | 2020-08-28 15:06 | CARD ---
MR#: [id number] Date of Study: 08/27/2020 Ordering Physician: NGUYEN BINGHAM, Referring Physician: NGUYEN BINGHAM, Tech: Katelyn Elizondo [facility] APPROVED REPORT EXAM: Two-dimensional and M-mode echocardiogram with Doppler and color Doppler. Other Information Quality : Average Rhythm : Atrial Fibrillation INDICATION Arrhythmia Cardiac Disease: CAD Surgery/Intervention ICD/Pacemaker: CABG: RISK FACTORS Hypertension Hyperlipidemia 2D DIMENSIONS RVDd3.2 (2.9-3.5cm)Left Atrium(2D)3.9 (1.6-4.0cm) IVSd1.1 (0.7-1.1cm)Aortic Root(2D)3.7 (2.0-3.7cm) LVDd4.5 (3.9-5.9cm)LVOT Diameter2.3 (1.8-2.4cm) PWd1.3 (0.7-1.1cm)LVDs3.6 (2.5-4.0cm) FS (%) 19.3 %SV36.6 ml LVEF(%)39.8 (>50%) Aortic Valve AoV Peak Kavin.127.9cm/sAoV VTI25.4cm AO Peak GR.6.5mmHgLVOT Peak Kavin.106.3cm/s AO Mean GR.3mmHgAVA (VMAX)3.47cm2 LEFT VENTRICLE The left ventricle is normal size. There is mild concentric left ventricular hypertrophy. The systoli c function is moderately impaired. EF 35% The mid to distal septum, distal anterior wall and apex are severely hypokinetic consistent with prior LAD territory infarct. Tissue Doppler imaging reveals mod erate left ventricular diastolic dysfunction. No left ventricle thrombus noted on this study. RIGHT VENTRICLE The right ventricle is normal size. There is normal right ventricular wall thickness. The right ventr icular systolic function is normal. There is a pacing lead noted in the RA/RV. ATRIA The left atrium is mildly dilated. The right atrium is mildly dilated. The interatrial septum is inta ct with no evidence for an atrial septal defect or patent foramen ovale as noted on 2-D or Doppler im aging. AORTIC VALVE The aortic valve is normal in structure and function. Doppler and Color Flow revealed mild aortic reg urgitation. There is no significant aortic valvular stenosis. MITRAL VALVE The mitral valve is normal in structure and function. There is no evidence of mitral valve prolapse. There is no mitral valve stenosis. Doppler and Color-flow revealed mild mitral regurgitation. TRICUSPID VALVE The tricuspid valve is normal in structure and function. Doppler and Color Flow revealed no tricuspid valve regurgitation noted. There is no tricuspid valve stenosis. PULMONIC VALVE Doppler and Color Flow revealed no pulmonic valvular regurgitation. There is no pulmonic valvular rom nosis. GREAT VESSELS The aortic root is mildly enlarged. The IVC is normal in size and collapses >50% with inspiration. PERICARDIAL EFFUSION There is no evidence of significant pericardial effusion. Critical Notification Critical Value: No <Conclusion> The systolic function is moderately impaired. EF 35% The mid to distal septum, distal anterior wall and apex are severely hypokinetic consistent with prio r LAD territory infarct. There is a pacing lead noted in the RA/RV. Doppler and Color Flow revealed mild aortic regurgitation. Doppler and Color-flow revealed mild mitral regurgitation. Signed by : Robinson Mattson, Electronically Approved : 08/28/2020 15:06:05
== END ==
LOC: ECHO 13:30
PROVIDERS: ATTEND Internal Medicine Cardiovascular Disease
DX: I08.0 Rheumatic disorders of both mitral and aortic valves (principal); I25.5 Ischemic cardiomyopathy
CPT/HCPCS: 93306